=== PATIENT | female | born 1955 ===

== ENCOUNTER 2022-05-09 10:49 | Outpatient (CLI) | payer MEDICARE, BC, SELFPAY ==
--- OUTSIDE RECORDS SUMMARY | 2022-05-09 10:55 | XMS_ITS | Encounter Summary ---
:1955 Author Organization [employer] Address [address] [address] Phone Care Team Providers Name Role Phone Elsewhere, Pcp Primary Care Provider Unavailable Encounter Details Date Type Department Care Team Description 08/17/2021 Travel Social History Tobacco Use Types Packs/Day Years Used Date Smoking Tobacco: Never Smokeless Tobacco: Never Alcohol Use Standard Drinks/Week Comments Never 0 (1 standard drink = 0.6 oz pure alcoho l) Alcohol Habits Answer Date Recorded How often do you have a drink containing alcohol? Never 07/12/2021 How many drinks containing alcohol do you have on a typical Not asked day when you are drinking? How often do you have six or more drinks on one occasion? 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 documented as of this encounter Plan of Treatment Not on filedocumented as of this encounter Visit Diagnoses Not on filedocumented in this encounter Care Teams Milk Powder Grinder Relationship Specialty Start Date End Date Elsewhere, Pcp PCP - General 05/20/21 documented as of this encounter
--- OUTSIDE RECORDS SUMMARY | 2022-05-09 10:55 | XMS_ITS | Encounter Summary ---
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 documented as of this encounter Miscellaneous Notes Telephone Encounter - Pema Beltre RN - 08/25/2021 10:05 AM CST Patient made aware and letter sent CENTER OPERATOR Telephone Encounter - Pema Beltre RN - 08/25/2021 10:04 AM CST ----- Message from Anju Garcia APRN, CNP sent at 08/24/2021 6:19 PM DATA CENTER OPERATOR ----- Patient did not view [employer] message - can we please send patient letter or contact patient with results as below : It was nice to see you in clinic the other day. Your CMP (electrolytes, kidney and liver functioning) is normal. Your blood sugar was elevated that day - please continue plans as discussed in clinic for your diabetes. Your TSH is slightly elevated - however, was previously normal x2 weeks prior. I would like to recheck your thyroid labs in 1-2 months after consistently taking your thyroid medication.Please continue the plans we discussed in clinic. Please follow-up as discussed, sooner if any concerns. Thanks! CENTER OPERATOR documented in this encounter Plan of Treatment Not on filedocumented as of this encounter Visit Diagnoses Not on filedocumented in this encounter Care Teams Cheese Tester Relationship Specialty Start Date End Date Elsewhere, Pcp PCP - General 05/20/21 documented as of this encounter
--- OUTSIDE RECORDS SUMMARY | 2022-05-09 10:55 | XMS_ITS | Encounter Summary ---
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 documented as of this encounter Miscellaneous Notes Telephone Encounter - Joanne Tran RN - 09/30/2021 3:40 PM CDT Patient notified and verbalized understanding. Telephone Encounter - Cynthia Newby RN - 09/28/2021 9:40 AM CDT Pt states she had VILLAREAL and cirrhosis in the past. She is wondering since LFT are normal. Does she still have VILLAREAL and Cirrhosis? Please review MRI liver [facility] 09/10/2020 Telephone Encounter - Shane Farias MD - 09/24/2021 5:34 PM CST Sure that can be done but I cannot answer questions related to radiology, specifically what she is asking. RVISOR FINISH END Telephone Encounter - Sahra Aranda RN - 09/21/2021 10:19 AM CST Patients are not able to reach out to our rads to discuss cases directly. Do you want pt to obtain her outside images to have them sent to [facility] to review? RVISOR FINISH END Telephone Encounter - Shane Farias MD - 09/17/2021 12:40 PM CST LFTs are normal This is good.In terms of imaging, this will have to be discussed with the radiologist will need images from [place] as well to compare. Perhaps she can reach out to the radiologist with this. RVISOR FINISH END Telephone Encounter - Anju Sinclair RN - 08/11/2021 8:44 AM CST Reviewed results with pt. Pt is asking what the status is of her liver. In comparison to imaging at [place] and [facility] is her liver improving? And if so how. Pt did have 3-4 liver biopsies. Should she continue on the same diet or if she should change anything that she is doing? Pt has OV 09/13 RVISOR FINISH END Telephone Encounter - Anju Sinclair RN - 08/11/2021 8:44 AM CST ----- Message from Shane Farias MD sent at 08/11/2021 8:22 AM SUPERVISOR FINISH END ----- LFTs are normal.Glucose is elevated. Please follow-up with PCP RVISOR FINISH END documented in this encounter Plan of Treatment Not on filedocumented as of this encounter Visit Diagnoses Not on filedocumented in this encounter Care Teams Hog Killer Relationship Specialty Start Date End Date Elsewhere, Pcp PCP - General 05/20/21 documented as of this encounter
--- OUTSIDE RECORDS SUMMARY | 2022-05-09 10:55 | XMS_ITS | Encounter Summary ---
:1955 Author Organization [email or web address] Address [address] [address] Phone Care Team Providers Name Role Phone Elsewhere, Pcp Primary Care Provider Unavailable Reason for Visit Reason Comments Refill Request Encounter Details Date Type Department Care Team Description 03/29/2022 Refill [facility] Anju Garcia APRN, Refill Request CLINIC ENDOCRINOLOGY SECTION HAND [address] [facility] [address] [facility] [address] [place] [address] [place] [address] [phone] (Wo rk) Social History Tobacco Use Types Packs/Day Years [...] at Date Recorded Female 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 Date Occupation Industry Not on file Not on file Not on file documented as of this encounter Ordered Prescriptions Prescription Sig Dispensed Refills Start Date End Date rosuvastatin (Crestor) 10 TAKE 1 TABLET BY 30 Tablet 2 03/17 MG tablet MOUTH EVERY DAY documented in this encounter Plan of Treatment Not on filedocumented as of this encounter Visit Diagnoses Not on filedocumented in this encounter Discontinued Medications Medication Sig Discontinue Reason Start Date End Date rosuvastatin (Crestor) 10 TAKE 1 TABLET BY 12/20/2021 03/29/2022 MG tablet MOUTH EVERY DAY documented as of this encounter Care Teams Computer Network Support Specialist Relationship Specialty Start Date End Date Elsewhere, Pcp PCP - General 05/20/21 documented as of this encounter
--- OUTSIDE RECORDS SUMMARY | 2022-05-09 10:55 | XMS_ITS | Encounter Summary ---
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
--- OUTSIDE RECORDS SUMMARY | 2022-05-09 10:55 | XMS_ITS | Encounter Summary ---
:1955 Author Organization [employer] Address [address] [address] Phone Care Team Providers Name Role Phone Elsewhere, Pcp Primary Care Provider Unavailable Reason for Visit Reason Comments Lab Work Encounter Details Date Type Department Care Team Description 08/10/2021 [facility] Lab Work [facility] LABORATORY [address] [place] [address] [place], [place] [phone] Social History Tobacco Use Types Packs/Day Years [...] at Date Recorded Female 07/15/2021 1:16 PM 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 documented as of this encounter Miscellaneous Notes Result Encounter Note - Shane Farias MD - 08/10/2021 3:30 PM ENVIRONMENTAL SPECIALIST Bilirubin and LFTs were normal RONMENTAL SPECIALIST documented in this encounter Plan of Treatment Not on filedocumented as of this encounter Procedures Procedure Name Priority Date/Time Associated Diagnosis Comme nts COMPREHENSIVE Routine 08/10/2021 3:29 Hyperlipidemia, Results for this METABOLIC PANEL PM ENVIRONMENTAL SPECIALIST unspecified procedure ar e in hyperlipidemia t ype the results Elevated liver enzymes secti on. T4, FREE Routine 08/10/2021 3:29 Hypothyroidism, Results f or this PM ENVIRONMENTAL SPECIALIST unspecified type procedure a re in the results section. T3, TOTAL Routine 08/10/2021 3:29 Hypothyroidism, Results f or this PM ENVIRONMENTAL SPECIALIST unspecified type procedure a re in the results section. BILIRUBIN, DIRECT Routine 08/10/2021 3:29 Elevated liver enzym es Results for this PM ENVIRONMENTAL SPECIALIST procedure are i n the results section. THYROID STIMULATING Routine 08/10/2021 3:29 Hypothyroidism, Re sults for this HORMONE PM ENVIRONMENTAL SPECIALIST unspecified type procedure a re in the results section. documented in this encounter Results BILIRUBIN, DIRECT (08/10/2021 3:29 PM ENVIRONMENTAL SPECIALIST) athologist Signature Bilirubin, 0.12 <=0.20 08/10/2021 [facility] Direct mg/dL 4:00 PM ENVIRONMENTAL SPECIALIST [facility] Specimen Anatomical Collection Method / Collection Time Recei bobbi Time (Source) Location / Volume Laterality Blood BLOOD SPECIMEN / Venipuncture / 08/10/2021 3:29 2021 3:29 Unknown Unknown PM ENVIRONMENTAL SPECIALIST PM ENVIRONMENTAL SPECIALIST Shane Farias MD EC CHEMISTRY ORDERABLES Performing Organization Address City/State/ZIP Code Phon e Number [address] [address] LABORATORY (ABNORMAL) COMPREHENSIVE METABOLIC PANEL (08/10/2021 3:29 PM ENVIRONMENTAL SPECIALIST) [facility] Method Time Signature Sodium 140 136 - 145 08/10/2021 [facility] mmol/L 4:00 PM [facility] Potassium 3.7 3.5 - 5.1 08/10/2021 [facility] mmol/L 4:00 PM [facility] Chloride 106 98 - 107 08/10/2021 [facility] mmol/L 4:00 PM [facility] Carbon Dioxide 25 21 - 32 08/10/2021 [facility] mmol/L 4:00 PM [facility] Calcium 9.0 8.5 - 08/10/2021 [facility] 10.1 4:00 PM [facility] mg/dL [facility] Alkaline Phosphatase 64 46 - 116 08/10/2021 [facility] W U/L 4:00 PM [facility] Aspartate 32 15 - 37 08/10/2021 [facility] Aminotransferase U/L 4:00 PM [facility] Alanine 62 14 - 63 08/10/2021 [facility] Aminotransferase U/L 4:00 PM [facility] Glucose 215 (H) 74 - 100 08/10/2021 [facility] mg/dL 4:00 PM [facility] Blood Urea nitrogen 9 7 - 18 08/10/2021 [facility] mg/dL 4:00 PM [facility] Creatinine 0.58 0.51 - 08/10/2021 [facility] 0.95 4:00 PM [facility]/dL [facility] Protein, Total 7.4 6.4 - 8.2 08/10/2021 [facility] g/dL 4:00 PM [facility] Albumin 3.7 3.4 - 5.0 08/10/2021 [facility] g/dL 4:00 PM [facility] Bilirubin, Total 0.6 0.2 - 1.0 08/10/2021 [facility] mg/dL 4:00 PM [facility] Glomerular >60 >=60 08/10/2021 [facility] Filtration Rate mL/min/1. 4:00 PM [facility] 73 m*2 [facility] Globulin 3.7 1.4 - 4.8 08/10/2021 [facility] g/dL 4:00 PM [facility] Anion Gap 9.3 5 - 15 08/10/2021 [facility] mmol/L 4:00 PM [facility] Specimen Anatomical Collection Method / Collection Time Recei bobbi Time (Source) Location / Volume Laterality Blood BLOOD SPECIMEN / Venipuncture / 08/10/2021 3:29 2021 3:29 Unknown Unknown PM ENVIRONMENTAL SPECIALIST PM ENVIRONMENTAL SPECIALIST Anju Garcia GENERAL MANAGER IN TRAINING, PIPER INSTALLER EC CHEMISTRY ORDERABLES Performing Organization Address City/State/ZIP Code [facility] e Number [facility] [address] [place], [place] [address] LABORATORY T3, TOTAL (08/10/2021 3:29 PM ENVIRONMENTAL SPECIALIST) P athologist Signature T3, TOTAL 104 60 - 181 08/10/2021 [facility] ng/dL 4:16 PM ENVIRONMENTAL SPECIALIST [facility] Specimen Anatomical Collection Method / Collection Time Recei bobbi Time (Source) Location / Volume Laterality Blood BLOOD SPECIMEN / Venipuncture / 08/10/2021 3:29 2021 3:29 Unknown Unknown PM ENVIRONMENTAL SPECIALIST PM ENVIRONMENTAL SPECIALIST Anju Garcia APRN, CNP EC LAB SEND OUT ORDERABLES Performing Organization Address [facility]/[address] [address] LABORATORY T4, FREE (08/10/2021 3:29 PM ENVIRONMENTAL SPECIALIST) athologist Signature T4, Free 1.05 0.76 - 1.46 08/10/2021 [facility] ng/dL 4:00 PM [facility] Specimen Anatomical Collection Method / Collection Time Recei bobbi Time (Source) Location / Volume Laterality Blood BLOOD SPECIMEN / Venipuncture / 08/10/2021 3:29 2021 3:29 Unknown Unknown PM ENVIRONMENTAL SPECIALIST PM ENVIRONMENTAL SPECIALIST Anju Garcia APRN, CNP EC CHEMISTRY ORDERABLES ABN Performing Organization Address [facility]/[address] [address] LABORATORY (ABNORMAL) THYROID STIMULATING HORMONE (08/10/2021 3:29 PM ENVIRONMENTAL SPECIALIST) Patholo gist Method Time Signature Thyroid 4.483 (H) 0.350 - 08/10/2021 [facility] Stimulating 3.740 4:00 PM ENVIRONMENTAL SPECIALIST [facility] LABORATORY Specimen Anatomical Collection Method / Collection Time Recei bobbi Time (Source) Location / Volume Laterality Blood BLOOD SPECIMEN / Venipuncture / 08/10/2021 3:29 2021 3:29 Unknown Unknown PM ENVIRONMENTAL SPECIALIST PM ENVIRONMENTAL SPECIALIST Anju Garcia APRN, CNP EC CHEMISTRY ORDERABLES ABN Performing Organization Address City/State/ZIP Code Phon e Number [place] [id number] LABORATORY documented in this encounter Visit Diagnoses Diagnosis Elevated liver enzymes Nonspecific elevation of levels of trans aminase or lactic acid dehydrogenase (LDH) Hypothyroidism, unspecified type Hyperlipidemia, unspecified hyperlipidem ia type documented in this encounter Care Teams Maintainer Central Office Relationship Specialty Start Date End Date Elsewhere, Pcp PCP - General 05/20/21 documented as of this encounter
--- OUTSIDE RECORDS SUMMARY | 2022-05-09 10:55 | XMS_ITS | Encounter Summary ---
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 documented as of this encounter Plan of Treatment Not on filedocumented as of this encounter Visit Diagnoses Not on filedocumented in this encounter Care Teams Ripshear Operator Relationship Specialty Start Date End Date Elsewhere, Pcp PCP - General 05/20/21 documented as of this encounter
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
--- OUTSIDE RECORDS SUMMARY | 2022-05-09 10:55 | XMS_ITS | Encounter Summary ---
:1955 Author Organization [employer] Address [address] [address] Phone Care Team Providers Name Role Phone Elsewhere, Pcp Primary Care Provider Unavailable Reason for Visit Reason Comments Refill Request Encounter Details Date Type Department Care Team Description 01/27/2022 Refill [facility] Anju Garcia APRN, Refill Request CLINIC ENDOCRINOLOGY LOKIE DRIVER [address] [facility] [address] [facility] [address] [place] [address] [place] [address] [phone] (Wo rk) Social History Tobacco Use Types [...] at Date Recorded Female 07/15/2021 1:16 PM REDEYE GUNNER Job Start Date Occupation Industry Not on file Not on file Not on file documented as of this encounter Ordered Prescriptions Prescription Sig Dispensed Refills Start Date End Date Continuous Blood Gluc USE 1 SENSOR 2 Each 5 2 Sensor (FreeStyle Miriam 2 DIRECTED CHANGING Sensor) Misc EVERY 14 DAYS documented in this encounter Plan of Treatment Not on filedocumented as of this encounter Visit Diagnoses Not on filedocumented in this encounter Care Teams Gasoline Tractor Operator Relationship Specialty Start Date End Date Elsewhere, Pcp PCP - General 05/20/21 documented as of this encounter
--- OUTSIDE RECORDS SUMMARY | 2022-05-09 10:55 | XMS_ITS | Encounter Summary ---
:1955 Author Organization [email or web address] Address [address] [address] Phone Care Team Providers Name Role Phone Elsewhere, Pcp Primary Care Provider Unavailable Encounter Details Date Type Department Care Team Description 08/12/2021 Telephone [facility] Sahra Aranda RN CLINIC GASTROENTEROL [facility]G [address] [facility] [address] [place] [address] Social History Tobacco Use Types Packs/Day [...] at Date Recorded Female 07/15/2021 1:16 PM RESEARCH MICROBIOLOGIST Job Start Date Occupation Industry Not on file Not on file Not on file COVID-19 Exposure Response Date Recorded In the last month, have you been in contact with No / Unsure 08/10/2021 3:11 PM RESEARCH MICROBIOLOGIST someone who was confirmed or suspected to have Coronavirus / COVID-19? documented as of this encounter Miscellaneous Notes Telephone Encounter - Sahra Aranda RN - 08/12/2021 10:39 AM CST Sent pt a msg on My Chart ARCH MICROBIOLOGIST Telephone Encounter - Sahra Aranda RN - 08/12/2021 10:39 AM CST ----- Message from Shane Farias MD sent at 08/12/2021 10:28 AM RESEARCH MICROBIOLOGIST ----- Bilirubin and LFTs were normal ARCH MICROBIOLOGIST documented in this encounter Plan of Treatment Not on filedocumented as of this encounter Visit Diagnoses Not on filedocumented in this encounter Care Teams Cement Paver Relationship Specialty Start Date End Date Elsewhere, Pcp PCP - General 05/20/21 documented as of this encounter
--- OUTSIDE RECORDS SUMMARY | 2022-05-09 10:55 | XMS_ITS | Encounter Summary ---
:1955 Author Organization [employer] Address [address] [address] Phone Care Team Providers Name Role Phone Elsewhere, Pcp Primary Care Provider Unavailable Reason for Visit Reason Comments Refill Request Encounter Details Date Type Department Care Team Description 12/20/2021 Refill [facility] Anju Garcia APRN, Refill Request CLINIC ENDOCRINOLOGY PHYSICAL GEOGRAPHER [address] [facility] [address] [facility] [address] [place] [address] [place] [address] [phone] (Wo rk) Social History Tobacco Use Types [...] at Date Recorded Female 07/15/2021 1:16 PM HAND UPPER AND BOTTOM LACER Job Start Date Occupation Industry Not on file Not on file Not on file documented as of this encounter Ordered Prescriptions Prescription Sig Dispensed Refills Start Date End Date rosuvastatin (Crestor) 10 TAKE 1 TABLET BY 30 Tablet 2 12/202103/29/2022 MG tablet MOUTH EVERY DAY documented in this encounter Plan of Treatment Not on filedocumented as of this encounter Visit Diagnoses Not on filedocumented in this encounter Discontinued Medications Medication Sig Discontinue Reason Start Date End Date rosuvastatin (Crestor) 10 Take 1 Tablet by 07/29/2021 12/20/2021 MG tablet mouth one time a day. documented as of this encounter Care Teams Inner Diameter Grinder Tool Relationship Specialty Start Date End Date Elsewhere, Pcp PCP - General 05/20/21 documented as of this encounter
--- OUTSIDE RECORDS SUMMARY | 2022-05-09 10:55 | XMS_ITS | Encounter Summary ---
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 documented as of this encounter Medications at Time of Discharge Medication Sig Dispensed Refills Start Date End Date albuterol HFA (Proair HFA, Inhale 2 Puffs into 0 01/14/2020 Ventolin HFA) 108 (90 the lungs every six Base) MCG/ACT inhalation hours as needed. aerosol cetirizine (ZyrTEC) 10 MG Take 10 mg by mouth. 0 04/15/2014 tablet vitamin D3, Take 1,000 Units by 0 cholecalciferol, 25 mcg mouth one time a day. (1000 units) tablet diclofenac (Voltaren) 1 % Place 4 g onto the 0 Gel skin four times a day as needed. EPINEPHrine, Inject 0.3 mg into 0 auto-injector, 0.3 the muscle. MG/0.3ML Solution Auto-injector injection ipratropium-albuterol Inhale 3 mL into the 0 07/18 (DUO-NEB) 0.5-2.5 (3) lungs as needed. MG/3ML Solution lancets, Accu-Chek 0 04/26/2013 Multiclix, (Accu-Chek Multiclix) Potassium Gluconate 2.5 Take by mouth. 0 04/15/20 14 MEQ Tablet Continuous Blood Gluc FreeStyle Miriam 2 0 Sensor (FreeStyle Miriam 2 Sensor kit Sensor) Misc busPIRone (Buspar) 10 MG Take 10 mg by mouth 0 tablet one time a day. Continuous Blood Gluc 1 Each by Does not 2 Each 5 2020 Sensor (FreeStyle Miriam 2 apply route every 14 Sensor) MiscIndications: days. 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 levothyroxine (Synthroid) Take 1 Tablet by 0 04/17 100 MCG tablet mouth one time a day. predniSONE (Deltasone) 20 Once daily as needed 0 03/26/2021 MG tablet documented as of this encounter Discharge Disposition Disposition Code Departure Means Destination Discharged documented in this encounter Plan of Treatment Not on filedocumented as of this encounter Procedures Procedure Name Priority Date/Time Associated Diagnosis Comme nts US SOFT TISSUE NECK Routine 08/12/2021 12:33 PM Hypothyroidism , Results for this THYROID HEAD WELDER SETTER RESISTANCE MACHINE unspecified type procedure a re in the results section. documented in this encounter Results US SOFT TISSUE NECK THYROID HEAD (08/12/2021 12:33 PM WELDER SETTER RESISTANCE MACHINE) Anatomical Region Laterality Modality Neck Ultrasound Specimen (Source) Anatomical Collection Method Collection Time Re ceived Time Location / / Volume Laterality 08/12/2021 12:14 PM WELDER SETTER RESISTANCE MACHINE Narrative 08/12/2021 12:43 PM WELDER SETTER RESISTANCE MACHINE US, THYROID COMPARISON: None. FINDINGS: The thyroid is normal in size, contour and position. The right lobe measures 2.4 x 0.9 x 1.3 cm. The left lo be measures 2.7 x 1.1 x 1.2 cm. The isthmus measures 3 mm. No discrete thyroid nodule or mass. There are few scattered benign-appearing cervical lymph nodes noted. IMPRESSION: Unremarkable sonographic mario luation of the thyroid. No nodular mass. Electronically signed by Glen Mims MD Report Date: 08/12/2021 12:14 PM Procedure Note Glen Mims MD - 08/12/2021Forma tting of this note might be different from the original. US, THYROID COMPARISON: None. FINDINGS: The thyroid is normal in size, contour and position. The right lobe measures 2.4 x 0.9 x 1.3 cm. The left lo be measures 2.7 x 1.1 x 1.2 cm. The isthmus measures 3 mm. No discrete thyroid nodule or mass. There are few scattered benign-appearing cervical lymph nodes noted. IMPRESSION: Unremarkable sonographic mario luation of the thyroid. No nodular mass. Electronically signed by Glen Mims MD Report Date: 08/12/2021 12:14 PM Anju Garcia DYE MAKER, FARM LOAN REPRESENTATIVE EC US ORDERABLES documented in this encounter Visit Diagnoses Diagnosis Hypothyroidism, unspecified type documented in this encounter Care Teams Repair Table Operator Relationship Specialty Start Date End Date Elsewhere, Pcp PCP - General 05/20/21 documented as of this encounter
--- OUTSIDE RECORDS SUMMARY | 2022-05-09 10:55 | XMS_ITS | Clinical Summary ---
:1955 Author Organization [employer] Address [address] [address] Phone Care Team Providers Name Role Phone Elsewhere, Pcp Primary Care Provider Unavailable Allergies Active Allergy Reactions Severity Noted Date Comments Ciprofloxacin Other Low 05/20/2021 Trouble breath ing Codeine Other Low 05/20/2021 Trouble breathi ng Propoxyphene N-Apap Other Low 05/20/2021 Trouble breathing Pioglitazone Other Low 01/07/2019 [place] sick [place] sick Hydrocodone-Acetaminophen Other Low 05/20/2021 Br eathing trouble Medications Medication Sig Dispensed Refills Start Date End Date Status levocetirizine (Xyzal) Take 1 Tablet by 0 01/27/2021 Active 5 MG tablet mouth one time a day as needed. levothyroxine Take 1 Tablet by 0 05/10/2021 Active (Synthroid) 100 MCG mouth one time a tablet day. predniSONE (Deltasone) Once daily as 0 03/26/2021 Active 20 MG tablet needed Continuous Blood Gluc 1 Each by Does 2 Each 5 06/18/2021 Active Sensor (FreeStyle not apply route Miriam 2 Sensor) every 14 days. 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 albuterol HFA (Proair Inhale 2 Puffs 0 01/14/2020 Active HFA, Ventolin HFA) 108 into the lungs (90 Base) MCG/ACT every six hours inhalation aerosol as needed. cetirizine (ZyrTEC) 10 Take 10 mg by 0 04/15/2014 Active MG tablet mouth. vitamin D3, Take 1,000 Units 0 A ctive cholecalciferol, 25 by mouth one time mcg (1000 units) a day. tablet diclofenac (Voltaren) Place 4 g onto 0 05/07/2019 Active 1 % Gel the skin four times a day as needed. EPINEPHrine, Inject 0.3 mg 0 Act jeromy auto-injector, 0.3 into the muscle. MG/0.3ML Solution Auto-injector injection ipratropium-albuterol Inhale 3 mL into 0 08/09/2018 Active (DUO-NEB) 0.5-2.5 (3) the lungs as MG/3ML Solution needed. lancets, Accu-Chek 0 04/26/2013 Active Multiclix, (Accu-Chek Multiclix) Potassium Gluconate Take by mouth. 0 04/15/2014 Active 2.5 MEQ Tablet Continuous Blood Gluc FreeStyle Miriam 2 0 Active Sensor (FreeStyle Sensor kit Miriam 2 Sensor) Misc glipiZIDE ER TAKE 2 TABS ONCE 0 08/13/2021 Active (Glucotrol XL) 10 MG DAILY IN THE 24 hour tablet MORNING WITH BREAKFAST. APPT NEEDED FOR FUTURE REFILLS. indomethacin (Indocin) Take 1 capsule PO 20 Capsule 1 08/17/19 Active 25 MG 30-60 minutes capsuleIndications: prior to Benign exertional exercise. Take headache with food or milk to lessen stomach irriation. dapagliflozin Take 1 Tablet by 90 Tablet 3 08/25/2021 Active (Farxiga) 10 MG mouth one time a TabletIndications: day. 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 The headaches started out as bifrontal, however can now be more right frontal, right retro-orbital and right parietal in location. The headaches are almost always associated with physical exertion, however she may occasionally experience a headache without known trigger. The head aches can exceed a 10/10 and are typical ly a buildup of pain within 30 seconds to 1 minute into physical exercise. The headaches completely resolve if she stops physical activity and lies down. She does note some sense of dizziness with the se headaches. She has not taken any medications for these headaches as they are typically brief and only provoked by exercise. She denies any headache associated with coughing or straining. She is not s exually active. She denies any family history of headaches, however does have a family history of brain tumors in both a niece and an aunt. Brain imaging includin g MRI/MRA and MRV on 07/29/2021 was negat jeromy for arteriovenous malformations, aneurysm, thrombosis or other space-occupying lesions. I explained to the patient that her symp toms are most consistent with benign exertional headache. We discussed trial of low-dose indomethacin prior to exercise and she agreed to proceed. If partially be neficial, could consider slight increase in indomethacin as needed, however would prefer to ensure clearance from GI prior to proceeding with higher doses. If indomethacin is not helpful/tolerated, coul d trial treatment for potential right-si ded trigeminal neuralgia (as the V1 distribution of the trigeminal nerve includes the anterior two thirds of the parietal scalp). Although seemingly less likely, could consider referral back to primary care provider for consideration of cardiac stress test due to history of cardiovascular risk factors and potential effect of coronary artery disease with exertion al headache (although she denies any ass ociated chest pain, palpitations or shortness of breath). Would prefer to avoid propranolol given concomitant asthma and diabetes, however she does have a continuous glucose monitor. Last Assessment & Plan: Patient began experiencing bifrontal and right-sided headaches since she recently started exercising again in July 2021. The headaches started out as bifrontal, however can now be more right frontal, right retro-orbital and right parietal in location. The headaches are almost always associated with physical exertion, however she may occasionally experience a headache without known trigger. The head aches can exceed a 10/10 and are typical ly a buildup of pain within 30 seconds to 1 minute into physical exercise. The headaches completely resolve if she stops physical activity and lies down. She does note some sense of dizziness with the se headaches. She has not taken any medications for these headaches as they are typically brief and only provoked by exercise. She denies any headache associated with coughing or straining. She is not s exually active. She denies any family history of headaches, however does have a family history of brain tumors in both a niece and an aunt. Brain imaging includin g MRI/MRA and MRV on 07/29/2021 was negat jeromy for arteriovenous malformations, aneurysm, thrombosis or other space-occupying lesions. I explained to the patient that her symp toms are most consistent with benign exertional headache. We discussed trial of low-dose indomethacin prior to exercise and she agreed to proceed. If partially be neficial, could consider slight increase in indomethacin as needed, however would prefer to ensure clearance from GI prior to proceeding with higher doses. If indomethacin is not helpful/tolerated, coul d trial treatment for potential right-si ded trigeminal neuralgia (as the V1 distribution of the trigeminal nerve includes the anterior two thirds of the parietal scalp). Although seemingly less likely, could consider referral back to primary care provider for consideration of cardiac stress test due to history of cardiovascular risk factors and potential effect of coronary artery disease with exertion al headache (although she denies any ass ociated chest pain, palpitations or shortness of breath). Would prefer to avoid propranolol given concomitant asthma and diabetes, however she does have a continuous glucose monitor. -You have been prescribed low-dose indom ethacin to take as needed, 30-60 minutes prior to exercise. -Contact my office via [facility] after 2-4 weeks with results of trialing this medication. We will consider further adjustment at that time if needed. -Maintain routine meals, hydration and s leep patterns. -Report any worsening headaches. Gastroparesis 07/12/2021 Last Assessment & Plan: Formatting of th is note might be different from the original. Gastroparesis based on gastric emptying study previously. At this time patient Peers to be doing well without any complaints. Gastroparesis diet. Elevated liver enzymes 05/27/2021 Last Assessment & Plan: Formatting of is note might be different from the original. As per GI : Endocrinology requesting dir ection regarding Metformin and statin, okay to proceed with both, monitor LFTs in 4 weeks after starting statin. *We will check liver function tests 1 mo nth after starting Rosuvastatin 10 mg daily Follow-up with GI Hyperlipemia 05/27/2021 Last Assessment & Plan: Formatting of th is note is different from the original. Lab Results Component Value Date CHOL 250 05/20/2021 Lab Results Component Value Date TRIG 159 05/20/2021 Lab Results Component Value Date HDL 49 05/20/2021 Lab Results Component Value Date LDLC 169 05/20/2021 Our goal LDL is less than 100 mg/dL. Please START Rosuvastatin 10 mg Statins are a class of drugs that lower the level of cholesterol in the blood by reducing the production of cholesterol by the liver. By lowering cholesterol levels, statins help prevent heart attacks and stroke. Side effects include: abdominal upset, m uscle pain or weakness. Please contact us if you have any concerns or side effects. 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 Blood Sugar Goals : Fasting morning blood sugars : 80-120 mg /dL 1-2 hours after meals : less than 180 mg /dL Lab Results Component Value Date HGA1C 10.7 05/20/2021 A1C test gives a picture of the average glucose control in the past three months. We will continue to work together to control blood sugars and maintain an A1c of less than 8% to prevent diabetes complications. Today, we will : Start Farxiga 10 mg once daily You do not have any contraindications to this medication (significant renal impairment, history of DKA) You have a distant history of yeast infe ctions - this medication can increase risk of yeast infection. If you develop symptoms, please contact us. This medication increases glucose excret ion in your urine. Side effects include : frequent urinatio n, dry mouth, dizziness, lightheadedness, low blood pressure and yeast infections. Please stop this medication and contact us if you have any side effects or concerns. We will plan to check your electrolytes (labs - CMP) in 3-4 weeks after starting this medication. If this is not covered or she has side e ffects, we will start : - Glipzide 5 mg, 1/2 tablet, twice daily with meals. - Metformin 500 mg ER (okay'd per GI) High Blood Sugars : 1.) Check sugars very frequently - every 2-3 hours. 2.) Continue to take diabetes medication s as directed 3.) Increase sugar free fluids / water 4.) Check urine or blood ketones 5.) Go to ER for treatment of DKA if sym ptoms develop such as : Fatigue Dry or flushed skin Nausea, vomiting, or abdominal pain Difficulty breathing Fruity odor on breath A hard time paying attention, or confusi on Low Blood Sugars : If you experience low blood sugars (less than 60 mg/dl, OR symptoms including shaking/sweating/irritability), please : 1.) Eat 15-20 grams carbohydrates. 2.) If blood sugar is still low after 15 minutes, eat another 15-20 grams carbs. 3.) Once blood sugar returns to normal, consume a meal or snack to prevent another low blood sugar. 4.) Please contact us if you have low bl ood sugars and we can discuss medication changes to prevent low blood sugars Please follow-up in 1 month and or soone r if any concerns. Hypothyroidism, unspecified type 05/20/2021 Last Assessment & Plan: Formatting of th is note is different from the original. Thyroid Stimulating hormone Date Value Ref Range Status 05/20/2021 5.403 (H) 0.350 - 3.740 UIU/m L Final T4, Free Date Value Ref Range Status 05/20/2021 0.94 0.76 - 1.46 ng/dL Final T3, TOTAL Date Value Ref Range Status 05/20/2021 136 60 - 181 ng/dL Final Please Continue your same dose of Levoth yroxine 100 mcg daily Please take this medicine on an empty st omach, 30 minutes before eating without any other medications. Please try to take the medicine at the same time each day. It may take several weeks before your body starts to respond to this medication. We will plan to recheck your thyroid lab s today We will continue to monitor your thyroid labs and make changes to your thyroid medication dose as needed to optimize your treatment. YESSI (obstructive sleep apnea) 01/21/2020 Overview: Formatting of this note might be differe nt from the original. Wears CPAP irregularly Narcolepsy 01/21/2020 Overview: Formatting of this note might be differe nt from the original. Per pt. No records available. Type 2 diabetes mellitus without retinopathy 0 Bilateral incipient cataracts 09/18/2019 Depression 08/17/2018 Overview: Formatting of this note might be differe nt from the original. On social security/disability NAFLD (nonalcoholic fatty liver disease) 07/04/2016 Asthma 04/06/2012 Encounters Date Type Specialty Care Team Description 03/29/2022 Refill Endocrinology Anju Garcia, ENGAGEMENT MGR, TRUCK CRANE OPERATOR HELPER R efill Request from Last 3 Months Surgical History Surgery Date Site/Laterality Comments BLEPHAROPLASTY Medical History Medical History Date Comments Liver disease Diabetes (HCC) Urticaria Lung disease Hypothyroid Carmen's disease PCOS (polycystic ovarian syndrome) Family History Medical History Relation Comments Diabetes Father Cancer Mother Diabetes Mother Cancer Sister Relation Status Comments Father Mother Sister Social History Tobacco Use Types Packs/Day Years [...] at Date Recorded Female 07/15/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 Start Date Occupation Industry Not on file Not on file Not on file Obstetrics History Last Filed Vital Signs Vital Sign Reading Time Taken Comments Blood Pressure 123/75 08/17/2021 1:13 PM BANKING MANAGEMENT CONSULTING MANAGER Pulse 74 08/17/2021 1:13 PM BANKING MANAGEMENT CONSULTING MANAGER Temperature - - Respiratory Rate 16 08/17/2021 1:13 PM BANKING MANAGEMENT CONSULTING MANAGER Oxygen Saturation 96% 08/17/2021 1:13 PM BANKING MANAGEMENT CONSULTING MANAGER Inhaled Oxygen Concentration - - Weight 88.2 kg (194 lb 8 oz) 08/17/2021 1:13 PM BANKING MANAGEMENT CONSULTING MANAGER Height 160 cm (5' 3) 07/29/2021 3:12 PM BANKING MANAGEMENT CONSULTING MANAGER Body Mass Index 34.45 07/29/2021 3:12 PM BANKING MANAGEMENT CONSULTING MANAGER Plan of Treatment Health Maintenance Due Date Last Done Comments CT Colonography 1955 Cologuard 1955 Colonoscopy 1955 Colorectal Cancer Screening 1955 FIT/FOBT 1955 MAMMO,SCREEN 1955 MEDICARE AWV 1955 Sigmoidoscopy 1955 COVID-19 Vaccine (#1) 1955 DIABETIC EYE EXAM 1973 PERTUSSIS (Standing Order) 1974 TETANUS (Standing Order) 1974 Shingrix (Zoster recombinant) 2005 vaccine (Standing Order) (1 of 2) DXA,FEMALES AGE 65 OR GREATER 01/19/2020 Pneumococcal Vaccine: 65+ yrs 01/19/2020 (Standing Order) (1 - PCV) DIABETES HGB A1C Q6 MONTHS 11/17/2021 05/20/2021, 0, (Standing Order) 05/03/2019, Additional history exists Influenza Vaccine Seasonal 03/17/2022 (Standing Order) (#1) DIABETES MICROALBUMIN Q1 YEAR 04/20/2022 05/20/2021 (Standing Order) DIABETES SERUM CREATININE Q1 YEAR 08/10/2022 08/10/2021, , (Standing Order) 05/20/2021, Additional history exists DIABETES LIPID PROFILE Q5 YEARS 05/20/2026 05/20/2021, 12/2019, (Standing Order) 08/16/2018 Insurance Payer Benefit Plan Subscriber ID Effective Phone Address Typ e / Group Dates MEDICARE MEDICARE [id number] 2013-Pre [phone] NATIONAL Medi care COST PART sent [id number] [facility] [employer] [facility] [employer] ATTN CLAIMS [address] [place] [address] BLUE CROSS BCBS [id number] 07/17/2020-Pres [phone] [address] [address] BCBS BLUE SHIELD NEZ PERCE [address] [place], [place] [employer] MEDICARE BLUE [id number] Care Teams Range Conservationist Relationship Specialty Start Date End Date Elsewhere, Pcp PCP - General 05/20/21
--- OUTSIDE RECORDS SUMMARY | 2022-05-09 10:55 | XMS_ITS | Encounter Summary ---
:1955 Author Organization [employer] Address [address] [address] Phone Care Team Providers Name Role Phone Elsewhere, Pcp Primary Care Provider Unavailable Reason for Visit Reason Onset Date Comments Refill Request 08/25/2021 Encounter Details Date Type Department Care Team Description 08/25/[address] 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 documented as of this encounter Ordered Prescriptions Prescription Sig Dispensed Refills Start Date End Date dapagliflozin (Farxiga) 10 Take 1 Tablet by 90 Tablet 3 03/2022 MG TabletIndications: mouth one time a Diabetes type 2, no ocular day. involvement (HCC) documented in this encounter Plan of Treatment Not on filedocumented as of this encounter Visit Diagnoses Diagnosis Diabetes type 2, no ocular involvement ( HCC) documented in this encounter Discontinued Medications Medication Sig Discontinue Reason Start Date End Date dapagliflozin (Farxiga) 10 Take 1 Tablet by Reorder 07/29/2021 08/25/2021 MG TabletIndications: mouth one time a Diabetes type 2, no ocular day. involvement (HCC) documented as of this encounter Care Teams Half Sole Fitter Relationship Specialty Start Date End Date Elsewhere, Pcp PCP - General 05/20/21 documented as of this encounter
--- OUTSIDE RECORDS SUMMARY | 2022-05-09 10:55 | XMS_ITS | Encounter Summary ---
:1955 Author Organization [employer] Address [address] [address] Phone Care Team Providers Name Role Phone Elsewhere, Pcp Primary Care Provider Unavailable Reason for Visit Auth/Cert Specialty Diagnoses / Procedures Referred By Contact Refer red To Contact Diagnoses double, colon screening-egd elevated liver enzymes- diabetic [facility] Procedures COLONOSCOPY SCREENING ESOPHAGOGASTRODUODENOSCOPY [address] [facility] [address] [place] [address] Referral ID Status Reason Start Date Expiration Date Visits Requ ested Visits Authorized [id number] 1 1 Encounter Details Date Type Department Care Team Description 09/01/2021 Hospital Encounter [facility] Shane Gee, HOSPITAL ENDOSCOPY [address] [facility] [address] [facility] [address] [place] [address] [place] [address] [phone] (Wo rk) Social History Tobacco Use Types [...] at Date Recorded Female 07/15/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 documented as of this encounter Plan of Treatment Not on filedocumented as of this encounter Visit Diagnoses Not on filedocumented in this encounter Care Teams Sole Edge Inker Machine Relationship Specialty Start Date End Date Elsewhere, Pcp PCP - General 05/20/21 documented as of this encounter
--- OUTSIDE RECORDS SUMMARY | 2022-05-09 10:55 | XMS_ITS | Encounter Summary ---
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 documented as of this encounter Plan of Treatment Not on filedocumented as of this encounter Visit Diagnoses Not on filedocumented in this encounter Care Teams Svp Digital Sales Relationship Specialty Start Date End Date Elsewhere, Pcp PCP - General 05/20/21 documented as of this encounter
--- OUTSIDE RECORDS SUMMARY | 2022-05-09 10:56 | XMS_ITS | Encounter Summary ---
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 documented as of this encounter Plan of Treatment Not on filedocumented as of this encounter Visit Diagnoses Not on filedocumented in this encounter Care Teams Restaurant Assistant Relationship Specialty Start Date End Date Elsewhere, Pcp PCP - General 05/20/21 documented as of this encounter
--- OUTSIDE RECORDS SUMMARY | 2022-05-09 10:56 | XMS_ITS | Encounter Summary ---
:1955 Author Organization [employer] Address [address] [address] Phone Care Team Providers Name Role Phone Elsewhere, Pcp Primary Care Provider Unavailable Reason for Visit Reason Onset Date Comments Endo Prep Call 07/27/2021 Encounter Details Date Type Department Care Team Description 07/27/2021 Telephone [facility] Levar Florence, RN Endo Prep Call ENDOSCOPY [address] 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 documented as of this encounter Miscellaneous Notes Telephone Encounter - Levar Florence, RN - 07/30/2021 9:19 AM CST 07/27/21: TC from pt with questions re: her prep for her E/C procedure which is scheduled for tomorrow 07/28/21. Pt states she did not receive any written or emailed instructions. Interlibrary Loan Specialist went over detailed prep instructions verbally over the phone with pt. Interlibrary Loan Specialist instructed pt that she would be transferred via TC to GI clinic to have them email pt instructions. Pt verbalized understanding and transfer was made. M SHOVEL OPERATOR documented in this encounter Plan of Treatment Not on filedocumented as of this encounter Visit Diagnoses Not on filedocumented in this encounter Care Teams It Specialist Relationship Specialty Start Date End Date Elsewhere, Pcp PCP - General 05/20/21 documented as of this encounter
--- OUTSIDE RECORDS SUMMARY | 2022-05-09 10:56 | XMS_ITS | Encounter Summary ---
:1955 Author Organization [employer] Address [address] [address] Phone Care Team Providers Name Role Phone Elsewhere, Pcp Primary Care Provider Unavailable Encounter Details Date Type Department Care Team Description 07/16/2021 [facility] RADIOLOGY A, enzymes ULTRASOUND [address] 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 documented as of this encounter Medications at Time of Discharge Medication Sig Dispensed Refills Start Date End Date albuterol HFA (Proair HFA, Inhale 2 Puffs into 0 01/14/2020 Ventolin HFA) 108 (90 Base) the lungs every six MCG/ACT inhalation aerosol hours as needed. cetirizine (ZyrTEC) 10 MG Take 10 mg by 0 014 tablet mouth. diclofenac (Voltaren) 1 % Place 4 g onto the 0 Gel skin four times a day as needed. ipratropium-albuterol Inhale 3 mL into 0 08/09/19 19 (DUO-NEB) 0.5-2.5 (3) MG/3ML the lungs as Solution needed. lancets, Accu-Chek 0 04/26/2013 Multiclix, (Accu-Chek Multiclix) Potassium Gluconate 2.5 MEQ Take by mouth. 0 03/19 Tablet busPIRone (Buspar) 10 MG Take 10 mg by mouth 0 tablet one time a day. 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 levothyroxine (Synthroid) Take 1 Tablet by 0 04/17 100 MCG tablet mouth one time a day. predniSONE (Deltasone) 20 MG Once daily as 0 03/17 tablet needed documented as of this encounter Discharge Disposition Disposition Code Departure Means Destination Discharged documented in this encounter Miscellaneous Notes Result Encounter Note - Shane Farias MD - 07/16/2021 10:00 AM COMPUTER ANALYST Sonogram shows fat in the liver. No suspicious intrahepatic mass or bile duct dilation. Normal gallbladder UTER ANALYST documented in this encounter Plan of Treatment Not on filedocumented as of this encounter Procedures Procedure Name Priority Date/Time Associated Diagnosis Comme nts US ABDOMEN COMPLETE Routine 07/16/2021 10:55 AM Elevated liver Results for this COMPUTER ANALYST enzymes procedure are i n the results section. documented in this encounter Results US ABDOMEN COMPLETE (07/16/2021 10:55 AM COMPUTER ANALYST) Anatomical Region Laterality Modality Abdomen Ultrasound Specimen (Source) Anatomical Collection Method Collection Time Re ceived Time Location / / Volume Laterality 07/16/2021 10:32 AM COMPUTER ANALYST Narrative 07/17/2021 8:25 AM COMPUTER ANALYST US, ABDOMEN COMPLETE HISTORY: ??Abnormal levels of other seru m enzymes COMPARISON: ??None. FINDINGS: The liver is normal size measu ring approximately 13.8 cm craniocaudad. Diffuse heterogeneous and increased echo texture of the liver. No suspicious intrahepatic mass or biliary ductal dila tation. The common bile duct is normal measuring 4 mm in diameter. The gallbladder is sonographically fely l without internal echos to suggest stones or sludge. No pericholecystic flu id. Gallbladder wall thickness is normal measuring 3 mm. Negative sonographic Mur phy's. The spleen is sonographically normal yanira suring 10.7 cm long axis. No perisplenic fluid collection. The kidneys are normal. The right kidney measures 10.6 cm long axis. The left kidney measures 11.6 cm long axis. No ev idence of renal calculus or hydronephrosis. The visualized portions of the pancreas, IVC and aorta are unremarkable. IMPRESSION: 1. Heterogeneous and increased echotextu re of the liver, suggestive of fatty infiltration. No suspicious intrahepatic mass or biliary ductal dilatation. 2. No evidence of cholelithiasis or acut e cholecystitis. Electronically signed by Glen Mims MD Report Date: 07/16/2021 10:32 AM Procedure Note Glen Mims MD - 07/17/2021Forma tting of this note might be different from the original. US, ABDOMEN COMPLETE HISTORY: Abnormal levels of other serum enzymes COMPARISON: None. FINDINGS: The liver is normal size measu ring approximately 13.8 cm craniocaudad. Diffuse heterogeneous and increased echo texture of the liver. No suspicious intrahepatic mass or biliary ductal dila tation. The common bile duct is normal measuring 4 mm in diameter. The gallbladder is sonographically fely l without internal echos to suggest stones or sludge. No pericholecystic flu id. Gallbladder wall thickness is normal measuring 3 mm. Negative sonographic Mur phy's. The spleen is sonographically normal yanira suring 10.7 cm long axis. No perisplenic fluid collection. The kidneys are normal. The right kidney measures 10.6 cm long axis. The left kidney measures 11.6 cm long axis. No ev idence of renal calculus or hydronephrosis. The visualized portions of the pancreas, IVC and aorta are unremarkable. IMPRESSION: 1. Heterogeneous and increased echotextu re of the liver, suggestive of fatty infiltration. No suspicious intrahepatic mass or biliary ductal dilatation. 2. No evidence of cholelithiasis or acut e cholecystitis. Electronically signed by Glen Mims MD Report Date: 07/16/2021 10:32 AM Shane Farias MD US ORDERABLES documented in this encounter Visit Diagnoses Diagnosis Elevated liver enzymes Nonspecific elevation of levels of trans aminase or lactic acid dehydrogenase (LDH) documented in this encounter Care Teams Manager Architecture Relationship Specialty Start Date End Date Elsewhere, Pcp PCP - General 05/20/21 documented as of this encounter
--- OUTSIDE RECORDS SUMMARY | 2022-05-09 10:56 | XMS_ITS | Clinical Summary ---
:1955 Author Organization [facility] Address [address] [facility] [place] [address] Care Team Providers Name Role Phone Krystin Christie APRN MANAGER NURSING HOME Primary Care Provider [phone] Sonja Tinajero [facility] Unavailable [phone] Sea Tsai DO Unavailable [phone] Sea Tsai DO Unavailable [phone] Stephanie Canela MD Unavailable [phone] Krystin Christie APRN MANAGER NURSING HOME Unavailable [phone] Dima Hidalgo MD Unavailable Dima Hidalgo MD Unavailable Allergies Active Allergy Reactions Severity Noted Date Comments Quinolones Itching, Difficulty High 11/10/2010 breathing Ciprofloxacin Itching, Shortness Of High 11/26/2006 Breath Codeine Shortness Of Breath High 04/10/2014 Other re action(s): Syncope Codeine Sulfate Other (See Comments) High 11/10/2010 Tyron ked out Propoxyphene N-Apap Itching Medium 11/10/2010 Pioglitazone 01/07/2019 [facility] sick Hydrocodone-Acetaminophen Itching, Difficulty High 11/11/19 11 breathing Medications Medication Sig Dispensed Refills Start Date End Date Status EPINEPHrine (EPIPEN) Inject 0.3 mg into 0 Active 0.3 MG/0.3ML the muscle once as injection needed. Vitamin D, Take 1,000 Units by 0 Active Cholecalciferol, mouth daily 1000 units TABS order for Equipment being 1 each 0 01/14/2019 Act jeromy DMEIndications: Type ordered: orthopedic 2 diabetes mellitus Diabetic shoes with complication, without long-term current use of insulin (H) diclofenac Place 4 g onto the 100 g 1 05/07/2019 Active (VOLTAREN) 1 % skin 4 times daily topical as needed for gelIndications: moderate pain Arthralgia, unspecified joint ipratropium - Take 1 vial (3 mLs) 1 Box 0 10/01/2019 Active albuterol 0.5 mg/2.5 by nebulization mg/3 mL (DUONEB) every 6 hours as 0.5-2.5 (3) MG/3ML needed for neb shortness of breath solutionIndications: / dyspnea or Mild persistent wheezing asthma with acute exacerbation cetirizine (ZYRTEC) Take 1 tablet (10 90 tablet 3 10/01/2019 Active 10 MG mg) by mouth daily tabletIndications: as needed For hives Uncomplicated asthma, unspecified asthma severity, unspecified whether persistent, Hives albuterol (PROAIR Inhale 2 puffs into 1 Inhaler 3 01/14/2020 Active HFA/PROVENTIL the lungs every 6 HFA/VENTOLIN HFA) hours as needed for 108 (90 Base) shortness of breath MCG/ACT / dyspnea or inhalerIndications: wheezing Mild persistent asthma with acute exacerbation montelukast Take 1 tablet (10 90 tablet 3 01/21/2020 Active (SINGULAIR) 10 MG mg) by mouth At tabletIndications: Bedtime Mild persistent asthma with acute exacerbation glipiZIDE (GLUCOTROL Take 1 tablet (5 90 tablet 0 07/08/2020 Active XL) 5 MG 24 hr mg) by mouth daily tabletIndications: Needs labs for Type 2 diabetes refills mellitus with complication, without long-term current use of insulin (H) metFORMIN Take 3 tablets 270 tablet 0 07/08/2020 Act jeromy (GLUCOPHAGE-XR) 500 (1,500 mg) by mouth MG 24 hr daily (with dinner) tabletIndications: Needs labs for Type 2 diabetes refills mellitus with complication, without long-term current use of insulin (H) Additional Information Patient not taking. Reported on 04/28/2022 levothyroxine Take 1 tablet (50 90 tablet 0 07/08/2020 Active (SYNTHROID/LEVOTHROID) 50 mcg) by mouth MCG tabletIndications: daily Needs labs Subclinical hypothyroidism for refills busPIRone (BUSPAR) 10 MG Take 1 tablet (10 180 tablet 0 2019 Active tabletIndications: KIERRA mg) by mouth 2 (generalized anxiety times daily disorder) ACCU-CHEK ANNIE PLUS test USE TO TEST BLOOD 100 each 0 2020 Active stripIndications: Type 2 SUGAR ONCE A DAY diabetes mellitus without OR DIRECTED complication, without (NEED TO BE SEEN long-term current use of IN CLINIC FOR insulin (H) FURTHER REFILLS) dapagliflozin (FARXIGA) 10 Take 10 mg by 0 2 Active MG TABS tablet mouth levocetirizine (XYZAL) 5 MG TAKE 1 TABLET BY 0 01/27 Active tablet MOUTH TWICE A DAY rosuvastatin (CRESTOR) 10 rosuvastatin 10 mg tablet 0 07/29/2021 Active MG tablet TAKE 1 TABLET BY MOUTH EVERY DAY gabapentin (NEURONTIN) 300 Take 1 capsule 90 capsule 4 022 Active MG capsuleIndications: (300 mg) by mouth Right facial pain 3 times daily valACYclovir (VALTREX) 1000 Take 1 tablet 21 tablet 0 05/28/20 20 05/ Discontinued mg tablet (1,000 mg) by 08/05 mouth 3 times 22 daily for 7 days Hospital, Clinic, or Other Ordered Dose Route Frequency Start Date End Date Status Facility Administered Medication lidocaine 1 % injection 0.5 .5 mL 09/25/2019 Active mLIndications: Trigger thumb, right thumb lidocaine 1 % injection 4 4 mL 09/25/2019 Active mLIndications: Rotator cuff syndrome of left shoulder lidocaine 1 % injection 5 5 mL 09/25/2019 Active mLIndications: Rotator cuff syndrome of left shoulder triamcinolone (KENALOG-40) 20 mg 09/25/2019 Active injection 20 mgIndications: Trigger thumb, right thumb triamcinolone (KENALOG-40) 40 mg 09/25/2019 Active injection 40 mgIndications: Rotator cuff syndrome of left shoulder Active Problems Problem Noted Date Vaginal bleeding 11/24/2021 Generalized muscle weakness 11/24/2021 YESSI (obstructive sleep apnea) 01/21/2020 Overview: Wears CPAP irregularly Narcolepsy 01/21/2020 Overview: Per pt. No records available. Bilateral incipient cataracts 09/18/2019 Type 2 diabetes mellitus without retinopathy 0 Blepharitis of upper and lower eyelids of both eyes, u nspecified type 09/18/2019 Diabetic gastroparesis 10/04/2018 Advance care planning 09/20/2018 Generalized weakness 09/09/2018 Weakness 08/20/2018 Elevated liver enzymes 08/17/2018 Depression 08/17/2018 Overview: On social security/disability Morbid obesity, unspecified obesity type 09/29/2016 History of corticosteroid therapy 09/29/2016 NAFLD (nonalcoholic fatty liver disease) 07/04/2016 Subclinical hypothyroidism 04/06/2012 Urticaria 04/06/2012 Asthma 04/06/2012 Resolved Problems Problem Noted Date Resolved Date Rotator cuff syndrome of left shoulder 06/04/2020 0 07/20/2020 Adhesive capsulitis of left shoulder 06/04/202010/2020 Neck pain 12/28/2017 02/05/2018 Lumbago 12/28/2017 02/05/2018 Right-sided thoracic back pain 12/28/2017 8 On corticosteroid therapy 07/29/2015 09/28/2016 DM type 2 (diabetes mellitus, type 2); BP Goal <140/90 04/0601/20/2020 Restrictive lung disease 09/20/2018 Encounters Date Type Specialty Care Team Description 04/29/2022 Telephone ENT Dima Hidalgo MD Consult (W as seen by rodrick Jhaveri s a consultation wi th the CT scans. State d there was an appt matilde eduled for 04/26/2022 at 11:00 scheduled by clinic. Saw not lisa on MyChart. ) 04/28/2022 Office Visit Neurology Dima Hidalgo M D Benign exertional headache (Primary Dx); Yair Campos, Right facia l pain 04/28/2022 Travel 04/28/2022 PRE VISIT Neurology Yair Campos Previsit 04/26/2022 Travel 03/11/2022 Hospital Encounter Radiology. Dima Hidalgo MD 03/11/2022 Travel 03/03/2022 Office Visit ENT Dima Hidalgo MD Right faci al pain (Primary Dx) 03/03/2022 Travel 02/28/2022 Transcribe Orders Provider, Generic Sinus itis chronic, External Data frontal (Prima ry Dx) 02/27/2022 Medical Correspondence Outside, Provider ENT SURGEON REFERRAL [facility] 02/15/2022 Travel 02/08/2022 Telephone IM/Peds Krystin Christie Panel Managemen t (AWV, Maren, GLUELINE WORKER mammo, dexa, diab f/u, MANAGER NURSING HOME asthma f/u, imm ) from Last 3 Months Immunizations Name Administration Dates Next Due Influenza Vaccine IM > 6 months Valent IIV4 04/15/2014 (Alfuria,Fluzone) TDAP Vaccine (Adacel) 05/27/2014 Tdap (Adacel,Boostrix) 05/27/2014 Family History Medical History Relation Comments No Known Problems Brother 1 No Known Problems Brother 2 No Known Problems Brother 3 Anxiety Disorder Daughter Depression Daughter Polycystic ovary syndrome Daughter Thyroid Disease Daughter patric thyroiditi s Depression Father Diabetes Father Hypertension Father Dementia Maternal Aunt 1 Dementia Maternal Aunt 2 Dementia Maternal Aunt 3 Dementia Maternal Aunt 4 No Known Problems Maternal Grandfather Depression Maternal Grandmother Cancer Mother Cerebrovascular Disease Mother Dementia Mother Depression Mother Diabetes Mother Glaucoma Mother Hypertension Mother Liver Cancer Mother Lung Cancer Mother Other - See Comments Mother spine cancer No Known Problems Other No Known Problems Paternal Grandfather No Known Problems Paternal Grandmother Bladder Cancer Sister Macular Degeneration No family hx of Relation Status Comments Brother 1 Alive Brother 2 Alive Brother 3 Alive Daughter Alive Father Maternal Aunt 1 Maternal Aunt 2 Maternal Aunt 3 Maternal Aunt 4 Alive Maternal Grandfather Maternal Grandmother Mother Alive Other Paternal Grandfather Paternal Grandmother Sister Alive Social History Tobacco Use Types Packs/Day Years Used Date Smoking Tobacco: Never Smokeless Tobacco: Never Tobacco Cessation: Counseling Given: No Alcohol Use Standard Drinks/Week Comments No 0 (1 standard drink = 0.6 oz pure alcoho l) Sex Assigned at Date Recorded Female 08/17/2018 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 Last Filed Vital Signs Vital Sign Reading Time Taken Comments Blood Pressure 140/88 04/28/2022 8:10 AM CDT Pulse 74 11/30/2021 8:56 AM CDT Temperature 36.9 ??C (98.5 ??F) 11/24/2021 7:37 AM CDT Respiratory Rate 18 11/24/2021 7:37 AM CDT Oxygen Saturation 96% 11/24/2021 7:37 AM CDT Inhaled Oxygen Concentration - - Weight 88.5 kg (195 lb) 04/28/2022 8:10 AM CDT Height 160 cm (5' 3) 04/28/2022 8:10 AM CDT Body Mass Index 34.54 04/28/2022 8:10 AM CDT Plan of Treatment Upcoming Encounters Date Type Specialty Care Team Description 05/19/2022 Office Visit ENT Dima Hidalgo M D [address] [place], [place] [address] (Wo rk) 08/02/2022 Office Visit Neurology Yair Campos MD [address] [place], [place] [address] (Wo rk) Health Maintenance Due Date Last Done Comments ANNUAL REVIEW OF HM ORDERS 1955 CT COLONOGRAPHY 1955 DEXA 1955 FIT-DNA (Cologuard) 1955 FLEX SIG 1955 COVID-19 Vaccine (#1) 1955 Pneumococcal Vaccine: 65+ 1961 Years (1 - PCV) ZOSTER IMMUNIZATION (1 of 2005 2) LIPID 08/16/2019 08/16/2018 MICROALBUMIN 08/16/2019 08/16/2018, 08/09/2016, 06/30/2015 DIABETIC FOOT EXAM 08/17/2019 08/17/2018, 09/28/2016 FIT 08/30/2019 08/30/2018 A1C 11/02/2019 05/03/2019, 01/07/2019, 10/15/2018, Additional history exists TSH W/FREE T4 REFLEX 05/03/2020 05/03/2019, 05/03/2019, 05/03/2019, Additional history exists CMP 06/09/2020 06/09/2019, 01/07/2019, 09/09/2018, Additional history exists MEDICARE ANNUAL WELLNESS 07/18/2020 07/18/2019 VISIT ASTHMA CONTROL TEST 07/23/2020 01/21/2020, 01/07/2019, 08/16/2018 EYE EXAM 09/17/2020 09/18/2019, 09/18/2019, 09/11/2018, Additional history exists ASTHMA ACTION PLAN 01/20/2021 01/21/2020, 08/29/2018, 08/16/2018 FALL RISK ASSESSMENT 01/20/2021 01/21/2020, 01/21/2020, 08/17/2018 MAMMO SCREENING 08/27/2021 08/27/2019, 08/17/2018, 01/08/2016 INFLUENZA VACCINE (#1) 2022 06/10/2019 (Declined), 04/15/2014 BMP 11/23/2022 11/23/2021, 06/10/2019, 06/09/2019, Additional history exists ADVANCE CARE PLANNING 09/21/2023 09/20/2018, 09/20/2018 HPV FOLLOW-UP 07/18/2024 07/18/2019 PAP FOLLOW-UP 07/18/2024 07/18/2019, 12/21/2015, 08/22/2013 COLONOSCOPY 07/18/2025 07/18/2015 COLORECTAL CANCER SCREENING 07/18/2025 DTAP/TDAP/TD IMMUNIZATION 03/18/2031 03/18/2021, 05/27/2014 , (3 - Td or Tdap) 05/27/2014 HEPATITIS C SCREENING Completed 08/24/2018, 02/05/2010, 05/22/2007 PHQ-2 (once per calendar Completed 11/30/2021, 10/01/2021, year) 07/18/2019, Additional history exists IPV IMMUNIZATION Aged Out No longer eligi ble based on patient 's age to complete this topic MENINGITIS IMMUNIZATION Aged Out No longe r eligible based on patient 's age to complete this topic Procedures Procedure Name Priority Date/Time Associated Diagnosis Comme nts CT SINUS W/O Routine 03/11/2022 1:57 PM Results f or this CONTRAST CDT procedure are i n the results section. from Last [address] Sinus w/o Contrast (03/11/2022 1:57 PM CDT) Anatomical Region Laterality Modality Sinus, SUBRAD CT NEURO, SUBRAD CT NEURO, UMP CT NEURO, Computed Tomography RAD CT Specimen (Source) Anatomical Collection Method Collection Time Re ceived Time Location / / Volume Laterality 03/11/2022 1:57 PM CDT Impressions 03/12/2022 11:41 PM CDT IMPRESSION: 1. ??No sinus opacification. 2. ??Drainage pathways are widely patent . 3. ??Nasal septal deviation to the left. Narrative 03/12/2022 11:41 PM CDT EXAM: CT SINUS W/O CONTRAST LOCATION: [facility] DATE/TIME: 03/11/2022 1:57 PM INDICATION: Rhinosinusitis. COMPARISON: None. TECHNIQUE: Routine without contrast. Mul tiplanar reformats. Dose reduction techniques were used. FINDINGS: FRONTAL SINUSES: ??Normal. ETHMOID SINUSES: ??Normal. SPHENOID SINUSES: Normal. MAXILLARY SINUSES: Normal. The floors of the maxillary sinuses are intact. NASAL CAVITY/SKULL BASE: Leftward bowing of the nasal septum without focal defect. Joanie bullosa of the right middle turbinate. The cribriform plate is intact and symmetric. The anterior clinoid processes are not pneumatized. PARANASAL SINUS DRAINAGE PATHWAYS: ??The paranasal sinus drainage pathways are patent. NON-SINUS STRUCTURES: No abnormality of the visualized orbits or intracranial compartment. Procedure Note Yamil Brown MD - 03/12/2022Formattin g of this note might be different from the original. EXAM: CT SINUS W/O CONTRAST LOCATION: [facility] DATE/TIME: 03/11/2022 1:57 PM INDICATION: Rhinosinusitis. COMPARISON: None. TECHNIQUE: Routine without contrast. Mul tiplanar reformats. Dose reduction techniques were used. FINDINGS: FRONTAL SINUSES: Normal. ETHMOID SINUSES: Normal. SPHENOID SINUSES: Normal. MAXILLARY SINUSES: Normal. The floors of the maxillary sinuses are intact. NASAL CAVITY/SKULL BASE: Leftward bowing of the nasal septum without focal defect. Joanie bullosa of the right middle turbinate. The cribriform plate is intact and symmetric. The anterior clinoid processes are not pneumatized. PARANASAL SINUS DRAINAGE PATHWAYS: The p aranasal sinus drainage pathways are patent. NON-SINUS STRUCTURES: No abnormality of the visualized orbits or intracranial compartment. IMPRESSION: 1. No sinus opacification. 2. Drainage pathways are widely patent. 3. Nasal septal deviation to the left. Dima Hidalgo MD IMG CT ORDERABLES from Last 3 Months Insurance Payer Benefit Plan / Subscriber ID Effective Phone Address T ype Group Dates BCBS BCBS [place] [id number] 2020-Prese [phone] [address] [address] PPO BLUE nt [address] [place] [address] MEDICARE MEDICARE FOR HB [id number] 2013-Pres [phone] ATTN CLAIMS Medicare SUPPLEMENT ent 40 [address] [place] [address] [facility] Self [address] (Home) [place] [address] [facility] Mackey Behavioral Self [address] (Home) [place] [address] [facility] Third Libertarian Self [address] (Home) [place] [address] [facility]i Mackey Medication Self [address] Therapy (Home) [place] [address] Advance Directives For more information, please contact: [phone] Latest Code Status on File Code Status Date Activated Date Inactivated Comments Full Code 11/24/2021 2:27 AM 11/24/2021 2:23 PM All basic an d advanced life-sustaining interventions are performed as re ropriate Question Answer Comments Code status determined by: Discussion with patient/ legal de cision maker Code Status History Code Status Date Activated Date Inactivated Comments Full Code 09/10/2018 8:39 AM 06/09/2019 7:05 PM Discussed b y admitting provider. Question Answer Comments Code status determined by: Other (please document) Full Code 09/09/2018 3:26 PM 09/10/2018 8:39 AM Question Answer Comments Code status determined by: Discussion with patient/legal dec ision maker Full Code 08/20/2018 10:43 PM 08/22/2018 7:14 PM Question Answer Comments Code status determined by: Other (please document) Care Teams Commercial Decorator Relationship Specialty Start Date End Date Krystin Christie PCP - General Nurse Practitioner 09/18/19 SAURABH Engel MANAGER NURSING HOME [address] [place] [address] Sonja Tinajero, Pharmacist 08/24/20 [facility] [address] [place] [address] [place], [place] [id number] Sea Tsai MD Neurology 08/04/21 DO Aleks [address] [place] [address] Sea Tsai Assigned Neuroscience 10/10/21 DO Aleks Provider [address] [place] [id number] Stephanie Canela Assigned OBGYN Provider 12/05/21 MD Alee [address] [place] [id number] Krystin Christie Assigned PCP 01/08/22 SAURABH Engel MANAGER NURSING HOME [address] [place] [address] Dima Hidalgo MD MD Otolaryngology 02/15/[address] [id number] Dima Hidalgo MD Assigned Surgical 03/12/22 [address] [place] [address]
--- OUTSIDE RECORDS SUMMARY | 2022-05-09 10:56 | XMS_ITS | Encounter Summary ---
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 documented as of this encounter Progress Notes Triny Puga, RN - 08/10/2021 10:20 AM CST Pre procedure lab order placed. OENGRAVING HELPER documented in this encounter Plan of Treatment Scheduled Orders Name Type Priority Associated Diagnoses Order S chedule ROUTINE IN-HOUSE Microbiology Routine Pre-procedure lab exam E xpected: SARS-COV-2 RNA 08/10/2021, E xpires: (COVID-19) 08/10/2022 documented as of this encounter Visit Diagnoses Diagnosis Pre-procedure lab exam - Primary Pre-procedural laboratory examination documented in this encounter Care Teams Patients Transporter Relationship Specialty Start Date End Date Elsewhere, Pcp PCP - General 05/20/21 documented as of this encounter
--- OUTSIDE RECORDS SUMMARY | 2022-05-09 10:56 | XMS_ITS | Encounter Summary ---
:1955 Author Organization [employer] Address [address] [address] Phone Care Team Providers Name Role Phone Elsewhere, Pcp Primary Care Provider Unavailable Reason for Visit Reason Onset Date Comments Durable Medical Equipment (DME) 06/18/2021 Freestyl e miriam sensors Encounter Details Date Type Department Care Team Description 06/18/2021 Telephone [facility] Mona Wadsworth Dur able [facility] ENDOCRINOLOGY RN Equipment (DME) [address] [place] [address] (Freestyle miriam SHELBYRUPESH [id number] sensors ) [phone] Social History Tobacco Use Types Packs/Day Years Used Date Smoking Tobacco: Never Smokeless Tobacco: Never Sex Assigned at Date Recorded Female 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 documented as of this encounter Ordered Prescriptions Prescription Sig Dispensed Refills Start Date End Date Continuous Blood Gluc 1 Each by Does not 2 Each 5 2020 Sensor (FreeStyle Miriam 2 apply route every 14 Sensor) MiscIndications: days. Diabetes type 2, no ocular involvement (HCC) documented in this encounter Miscellaneous Notes Telephone Encounter - Mona Staples RN - 06/18/2021 8:56 AM CST Reviewed with pt. Advised pt can use her cell phone. Pt will use her cell phone for now to use with the Freestyle Miriam 14 day sensors. Going forward pt would like to have the alarm feature. Will send in Miriam 2 ANALYST Telephone Encounter - Mona Staples RN - 06/18/2021 8:39 AM CST Pt left VM on nurse line requesting CB. Believes the pharmacy dispensed her the wrong Miriam prescription. Pt is in need of the Miriam 2 sensors. Appears the office did send in freestyle miriam 14-day sensors. ANALYST documented in this encounter Plan of Treatment Not on filedocumented as of this encounter Visit Diagnoses Diagnosis Diabetes type 2, no ocular involvement ( HCC) - Primary documented in this encounter Discontinued Medications Medication Sig Discontinue Reason Start Date End Date Continuous Blood Gluc 1 Device by Does Changed to an alternate 05/1706/18/2021 Sensor (FreeStyle not apply route therapy Miriam 14 Day Sensor) every 14 days. Misc documented as of this encounter Care Teams Road Supervisor Relationship Specialty Start Date End Date Elsewhere, Pcp PCP - General 05/20/21 documented as of this encounter
--- OUTSIDE RECORDS SUMMARY | 2022-05-09 10:56 | XMS_ITS | Encounter Summary ---
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 documented as of this encounter Plan of Treatment Not on filedocumented as of this encounter Procedures Procedure Name Priority Date/Time Associated Diagnosis Comme nts ROUTINE IN-HOUSE Routine 07/25/2021 11:35 AM Elevated liver Re sults for this SARS-COV-2 RNA JOB P[employer] PREPARER enzymes procedure are in (COVID-19) the results section. documented in this encounter Results ROUTINE IN-HOUSE SARS-COV-2 RNA (COVID-19) (07/25/2021 11:35 AM JOB PUTTER UP AND TICKET PREPARER) [facility] Method Time Signature SARS-CoV-2 Not Not Detected, 07/25/2021 [facility] TWO RNA Detected Presumptive 9:38 PM JOB PUTTER UP AND TICKET PREPARER TWELVE (COVID-19) Negative, LABORATORY Negative Specimen Anatomical Collection Method Collection Time Receive d Time (Source) Location / / Volume Laterality Swab NASAL / Unknown Non-blood 07/25/2021 11:35 07/25/19 22 collection / AM JOB [employer] TICKET PREPARER 11:35 AM JOB P[employer]TER UP AND TICKET PREPARER Unknown Narrative [facility] - 2021 9:38 PM JOB P[employer]TER UP AND TICKET PREPARER Negative results do not preclude 2019-nCoV infection and should not be used as the sole basis for laxmi atment or other patient management decis ions. ??Negative results must be combined with clinical observations, patient history, and epidemiological information. This test was performed using a RT-PCR a ssay designed for qualitative detection of severe acute respiratory syndrome coronavirus 2 (SARS-CoV-2) RNA. Shane Farias MD [facility] MICROBIOLOGY - GENERAL OR DERABLES Performing Organization Address City/State/ZIP Code Phon e Number [facility] [address] [place] [id number] documented in this encounter Visit Diagnoses Diagnosis Encounter for preoperative screening lab oratory testing for COVID-19 virus - Primary Elevated liver enzymes Nonspecific elevation of levels of trans aminase or lactic acid dehydrogenase (LDH) documented in this encounter Orders Other Count Last Ordered Date First Ordered Date OFFICE/OUTPT VISIT,CARLINE NUÑEZ I 1 07/25/2021 documented in this encounter Care Teams Geophysicist Relationship Specialty Start Date End Date Elsewhere, Pcp PCP - General 05/20/21 documented as of this encounter
--- OUTSIDE RECORDS SUMMARY | 2022-05-09 10:56 | XMS_ITS | Encounter Summary ---
:1955 Author Organization [employer] Address [address] [address] Phone Care Team Providers Name Role Phone Elsewhere, Pcp Primary Care Provider Unavailable Reason for Visit Reason Onset Date Comments Appointment 08/06/2021 MD ALLERGY IMMUNOLOGY referral from [facility] ocrinology Headaches. Encounter Details Date Type Department Care Team Description 08/06/2021 Telephone [facility] Zoie Yu (MD ALLERGY IMMUNOLOGY referral [facility]. 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 documented as of this encounter Miscellaneous Notes Telephone Encounter - Cameroncheyenne [place] A - 08/11/2021 9:08 AM CST Scheduled 08/17/21 brynn/ Marlene TING MACHINE OPERATOR Telephone Encounter - Marlene Viveros PA-C - 08/09/2021 10:57 AM CST Reviewed headache documentation. Okay to offer MD ALLERGY IMMUNOLOGY 60 minute visit with me for headaches if patient prefers not to wait for one of the neurologists. Thanks. TING MACHINE OPERATOR Telephone Encounter - Zoie Smith RN - 08/06/2021 2:01 PM CST Referral from Endocrinology for Neurology consultation for Headaches. Wondering if Marlene AGUIRRE would be willing to see MD ALLERGY IMMUNOLOGY? Will forward to provider for review of referral and records and if OK to schedule with Marlene? TING MACHINE OPERATOR documented in this encounter Plan of Treatment Not on filedocumented as of this encounter Visit Diagnoses Not on filedocumented in this encounter Care Teams Consulting Engineer Relationship Specialty Start Date End Date Elsewhere, Pcp PCP - General 05/20/21 documented as of this encounter
--- OUTSIDE RECORDS SUMMARY | 2022-05-09 10:56 | XMS_ITS | Encounter Summary ---
:1955 Author Organization [employer] Address [address] [address] Phone Care Team Providers Name Role Phone Elsewhere, Pcp Primary Care Provider Unavailable Reason for Referral Office Visit (Routine) - Closed Specialty Diagnoses / Procedures Referred By Contact Refer red To Contact Neurology Diagnoses Acute intractable headache, unspecified headache type Anju Garcia APRN, CNP [address] [address] Referral ID Status Reason Start Date Expiration Date Visits Requ ested Visits Authorized [id number] Closed 07/29/2021 07/29/2022 1 1 Comments Appt with Neurology: Neurology Consult For outside referrals, enter Unknown for Location or Provider if unable to find and enter name and location of desired provi barrera here. Reason for Referral: headache ffice Visit (Routine) - Closed Specialty Diagnoses / Procedures Referred By Contact Refer red To Contact Orthopedic Surgery / Diagnoses Right knee pain, unspecified chronicity Anju Garcia [facility] JOEL WILEY [address] [address] Referral ID Status Reason Start Date Expiration Date Visits Requ ested Visits Authorized [id number] Closed 07/29/2021 07/29/2022 1 1 Comments Reason for Referral: Right knee pain UNLOADER Reason for Visit Reason Comments Follow Up Diabetes and thyroid Encounter Details Date Type Department Care Team Description 07/29/2021 Office Visit HIALEAH Anju Alicea Right k nee pain, unspecified chronicity (Primary Dx); [facility] Diabetes type 2, no ocular involvement ( HCC); ENDOCRINOLOGY [address] [address] Hypothyroidism, unspecified type; [address] [facility] [address] Hyperlipidemia, unspecified hyperlipidem ia type; [facility] RUPESH Elevated liver enzymes; [address] [id number] Acute intractable headache, unspecified headache type RUPESH JEREZ [phone] (Work) [phone] Social History Tobacco Use Types Packs/Day Years [...] at Date Recorded Female 07/15/2021 1:16 PM CAR UNLOADER Job Start Date Occupation Industry Not on file Not on file Not on file COVID-19 Exposure Response Date Recorded In the last month, have you been in contact with No / Unsure 08/12/2021 10:45 AM CAR UNLOADER someone who was confirmed or suspected to have Coronavirus / COVID-19? documented as of this encounter Last Filed Vital Signs Vital Sign Reading Time Taken Comments Blood Pressure 136/62 07/29/2021 3:12 PM CAR UNLOADER Pulse 76 07/29/2021 3:12 PM CAR UNLOADER Temperature - - Respiratory Rate - - Oxygen Saturation - - Inhaled Oxygen Concentration - - Weight 90.1 kg (198 lb 9 oz) 07/29/2021 3:12 PM CAR UNLOADER Height 160 cm (5' 3) 07/29/2021 3:12 PM CAR UNLOADER Body Mass Index 35.17 07/29/2021 3:12 PM CAR UNLOADER documented in this encounter Patient Instructions Patient InstructionsAnju Garcia, JOEL WILEY - 07/29/2021 3:30 PM CST Problem List Items Addressed This Visit Nervous Acute intractable headache, unspecified headache type We recommend follow-up in ER / UC for imaging as this is a new headache, acute, intense, worst headache of her life, brain tumor history, increased intensity of headache, initiated by exercise. 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 If you develop symptoms, please contact us. This medication increases glucose excretion in your urine. Side effects include : frequent urination, dry mouth, dizziness, lightheadedness, low blood pressureand yeast infections. Please stop this medication and contact us if you have any side effects or concerns. We will plan to check your electrolytes (labs - CMP) in 3-4 weeks after starting this medication. If this is not covered or she has side effects, we will start : - Glipzide 5 mg, 1/2 tablet, twice daily with meals. - Metformin 500 mg ER (okay'd per GI) High Blood Sugars : 1.) Check sugars very frequently - every 2-3 hours. 2.) Continue to take diabetes medications as directed 3.) Increase sugar free fluids / water 4.) Check urine or blood ketones 5.) Go to ER for treatment of DKA if symptoms develop such as : Fatigue Dry or flushed skin Nausea, vomiting, or abdominal pain Difficulty breathing Fruity odor on breath A hard time paying attention, or confusion Low Blood Sugars : If you experience [...] Please contact us if you have low blood sugars and we can discuss medication changes to prevent low blood sugars Please follow-up in 1 month and or sooner if any concerns. Relevant Medications dapagliflozin (Farxiga) 10 MG Tablet Other Relevant Orders GLUCOSE MONITOR, ANALYSIS, INTERP AND REPORT (Completed) Hypothyroidism, unspecified type Thyroid Stimulating hormone Date Value Ref Range Status 05/20/2021 5.403 (H) 0.350 - 3.740 UIU/mL Final T4, Free Date Value Ref Range Status 05/20/2021 0.94 0.76 - 1.46 ng/dL Final T3, TOTAL Date Value Ref Range Status 05/20/2021 136 60 - 181 ng/dL Final Please Continue your same dose of Levothyroxine 100 mcg daily Please take this medicine on an empty stomach, 30 minutes before eating without any other medications. Please try to take the medicine at the same time each day. It may take several weeks before your body starts to respond to this medication. We will plan to recheck your thyroid labs today We will continue to monitor your thyroid labs and make changes to your thyroid medication dose as needed to optimize your treatment. Relevant Orders THYROID STIMULATING HORMONE T4, FREE T3, TOTAL Hyperlipemia Lab Results Component Value Date CHOL 250 [...] and stroke. Side effects include: abdominal upset, muscle pain or weakness. Please contact us if you have any concerns or side effects. We will check liver tests in 1 month after starting Rosuvastatin We will recheck your fasting lipid panel in 3-6 months Relevant Orders COMPREHENSIVE METABOLIC PANEL Other Elevated liver enzymes As per GI : Endocrinology requesting direction regarding Metformin and statin, okay to proceed withboth, monitor LFTs in 4 weeks after starting statin. *We will check liver function tests 1 month after starting Rosuvastatin 10 mg daily Follow-up with GI Relevant Orders COMPREHENSIVE METABOLIC PANEL Other Visit Diagnoses Right knee pain, unspecified chronicity - Primary Relevant Orders APPT WITH ORTHOPEDICS CC If your provider has ordered a radiology test that needs to be scheduled at any of the [place] facilities, for your convenience and to offer you the best service, we ask that you contact the [facility] directly at [phone]. If you have an Ultrasound or DEXA order from [facility], those are performed directly by them. Please call [phone] ([place]) or [phone] ([place]) to schedule those tests. UNLOADER documented in this encounter Ordered Prescriptions Prescription Sig Dispensed Refills Start Date End Date rosuvastatin (Crestor) 10 Take 1 Tablet by 30 Tablet 2 07/1712/20/2021 MG tablet mouth one time a day. dapagliflozin (Farxiga) Take 1 Tablet by 90 Tablet 3 202108/17/2021 10 MG Tablet mouth one time a day. glipiZIDE (Glucotrol) 5 Take 1/2 tablet with 30 Tablet 2 07/29/2021 MG tablet breakfast and supper if blood sugars are greater than 120 mg/dL documented in this encounter Progress Notes Anju Garcia APRN, JOEL - 07/29/2021 3:30 PM CST [facility] Office Visit Becki Mackey [facility] is a 66 year old female who presents for Follow Up (Diabetes and thyroid) Subjective No notes on file HPI Becki is here for follow-up of discuss asthma / lung disease, diabetes, elevated liver enzymes (VILLAREAL) and hypothyroidism Diabetes. She was diagnosed with diabetes in 2015. She has never been hospitalized for diabetes. Diabetes Medications : None, diet and exercise. Previous DM Medications include : - Glipizide 10 mg twice daily (low blood sugars) - Metformin (did not control sugars, ? Liver cirrhosis) - GLP-1 ($$$, denies side effects) Consider : Rechallenge Metformin : *Only if approved by GI / Hepatology prior. - As per GI : Endocrinology requesting direction regarding Metformin and statin, okay to proceed with both, monitor LFTs in 4 weeks after starting statin. SGLT-2 : Denies kidney disease. She has a distant history of yeast infections GLP-1 : Denies history of medullary thyroid cancer, history GI disease, pancreatitis ($$$) Pioglitazone : Denies CHF, osteoporosis. Her sister has bladder cancer - she is following up with Urology in June. We will avoid this unless approved by Urology. DPP-4 : Denies history of pancreatitis Re-challenge Glipizide Insulin Blood sugars / CGM. We downloaded and analyzed her CGM today. Average blood sugar is 135 mg/dL with standard deviation of 21.1%. Her sugars have significantly improved. Her sugars are in target range 94% of the time. Sugars have significantly improved with diet changes. Thyroid History. Becki was diagnosed with thyroid problems in 2016. Denies history of radiation to head or neck. denies history of Amiodarone, [place] - history of Prednisone, not within the last [address] scan with IV contrast dye. denies recent upperrespiratory illness. denies recent . Thyroid Meds. She is taking Levothyroxine 100 mcg daily. She endorses occasional non-compliance withher thyroid medication. We will recheck her thyroid labs today. Thyroid Symptoms. Denies significant hyper or hypothyroid symptoms, with exception of fatigue. She reports difficulty swallowing, compressive symptoms. Thyroid Labs. We reviewed and discussed labs together today. Thyroid Stimulating hormone Date Value Ref Range Status 05/20/2021 5.403 (H) 0.350 - 3.740 UIU/mL Final T4, Free Date Value Ref Range Status 05/20/2021 0.94 0.76 - 1.46 ng/dL Final T3, TOTAL Date Value Ref Range Status 05/20/2021 136 60 - 181 ng/dL Final Thyroid Imaging. She will complete thyroid US. She has had esophogram previously. Exercise induced frontal headache. She developed an intense headache x5 days ago with exercise. She has exercised 3 times this week, each time she developed an intense frontal head, with increasingintensity each time she exercised (01/23, 03/26, 29/04). She did not follow-up in the ER any of these times. This is a new headache, never had headaches before. Headache is initiated by exercise. She does report significant increase in headache intensity. Denies vision changes. Denies systemic symptoms including fever, chills, weight loss, night sweats. She does have a 2/10 pain on the right side of her forehead today in clinic. We recommend follow-up in ER / UC for imaging. Unable to discuss with Neurologist. Diabetes Control and Complications: Glycemic Control Poor Estimated A1c is 6.5% as per CGM Lab Results Component Value Date HGA1C 10.7 05/20/2021 Insulin Patient is not taking insulin Insulin start date : N/A B.P. Control Good BP Readings from Last 1 Encounters: 07/29/21 136/62 B.P. Medications None Statin NO We will start Rosuvastsatin 10 mg daily. This has been approved by GI - we will check LFTSin 1 month. Lipid control LDL elevated As per GI : Endocrinology requesting direction regarding Metformin and statin, okay to proceed with both, monitor LFTs in 4 weeks after starting statin. Lab Results Component Value Date CHOL 250 05/20/2021 Lab Results Component Value Date TRIG 159 05/20/2021 Lab Results Component Value Date HDL 49 05/20/2021 Lab Results Component Value Date LDLC 169 05/20/2021 Renal Status Good Lab Results Component Value Date ALBCR 05/20/2021 Comment: MALB/CREAT Urine ratio not calculated due to urine microalbumin and/or urine creatinine result(s) are outside of the linearity of the instrument. No results found for: UACR Lab Results Component Value Date CREAT 0.55 05/20/2021 Lab Results Component Value Date GFR >60 05/20/2021 ZARINA / ARB No. Neuropathy Improved Consider Alpha Lipoic Acid 600 mg daily Feet Denies concerns with feet. Did not assess closely monitor and examine feet daily Retinopathy No follows regularly with ophthalmology and denies acute eye concerns today Smoking Status non-smoker ASA No denies chest pain, chest pressure or shortness of breath Today, we will : 1.) Start Farxiga 10 mg once daily in the morning. We discussed the mechanism of action and side effects of the medication. Advised patient to call us if she is experiencing any side effects or has anyquestions or concerns. 2.) If this is not covered or she has side effects, we will start : - Glipzide 5 mg, 1/2 tablet, twice daily with meals. - Metformin 500 mg ER (okay'd per GI) 3.) Start Rosvuatastin 10 mg daily. We discussed the mechanism of action and side effects of the medication. Advised patient to call us if she is experiencing any side effects or has any questions or concerns. 4.) Check TFTs 5.) Check LFTs in 1 month 6.) Refer to ER for headache The following portions of the chart were reviewed this encounter and updated as appropriate: Tobacco Allergies Meds Problems Med Hx Surg Hx Fam Hx Review of Systems Constitutional: Negative. HENT: Negative. Eyes: Negative. Respiratory: Negative. Cardiovascular: Negative. Gastrointestinal: Negative. Endocrine: Negative. Genitourinary: Negative. Musculoskeletal: Negative. Skin: Negative. Allergic/Immunologic: Negative. Neurological: Negative. Hematological: Negative. Psychiatric/Behavioral: Negative. All other systems reviewed and are negative. Objective Physical Exam Constitutional: Appearance: Normal appearance. HENT: Head: Normocephalic and atraumatic. Eyes: Extraocular Movements: Extraocular movements intact. Pupils: Pupils are equal, round, and reactive to light. Cardiovascular: Rate and Rhythm: Normal rate and regular rhythm. Pulses: Normal pulses. Heart sounds: Normal heart sounds. Pulmonary: Effort: Pulmonary effort is normal. Breath sounds: Normal breath sounds. Musculoskeletal: General: Normal range of motion. Cervical back: Normal range of motion and neck supple. Skin: General: Skin is warm and dry. Neurological: General: No focal deficit present. Mental Status: She is alert and oriented to person, place, and time. Psychiatric: Mood and Affect: Mood normal. Behavior: Behavior normal. Thought Content: Thought content normal. Judgment: Judgment normal. Procedures Assessment/Plan Click here to update Care Team. (Optional):[id number]} Problem List Items Addressed This Visit Nervous Acute intractable headache, unspecified headache type We recommend follow-up in ER / UC for imaging as this is a new headache, acute, intense, worst headache of her life, brain tumor history, increased intensity of headache, initiated by exercise. 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 If you develop symptoms, please contact us. This medication increases glucose excretion in your urine. Side effects include : frequent urination, dry mouth, dizziness, lightheadedness, low blood pressureand yeast infections. Please stop this medication and contact us if you have any side effects or concerns. We will plan to check your electrolytes (labs - CMP) in 3-4 weeks after starting this medication. If this is not covered or she has side effects, we will start : - Glipzide 5 mg, 1/2 tablet, twice daily with meals. - Metformin 500 mg ER (okay'd per GI) High Blood Sugars : 1.) Check sugars very frequently - every 2-3 hours. 2.) Continue to take diabetes medications as directed 3.) Increase sugar free fluids / water 4.) Check urine or blood ketones 5.) Go to ER for treatment of DKA if symptoms develop such as : Fatigue Dry or flushed skin Nausea, vomiting, or abdominal pain Difficulty breathing Fruity odor on breath A hard time paying attention, or confusion Low Blood Sugars : If you experience [...] Please contact us if you have low blood sugars and we can discuss medication changes to prevent low blood sugars Please follow-up in 1 month and or sooner if any concerns. Relevant Medications dapagliflozin (Farxiga) 10 MG Tablet Other Relevant Orders GLUCOSE MONITOR, ANALYSIS, INTERP AND REPORT (Completed) Hypothyroidism, unspecified type Thyroid Stimulating hormone Date Value Ref Range Status 05/20/2021 5.403 (H) 0.350 - 3.740 UIU/mL Final T4, Free Date Value Ref Range Status 05/20/2021 0.94 0.76 - 1.46 ng/dL Final T3, TOTAL Date Value Ref Range Status 05/20/2021 136 60 - 181 ng/dL Final Please Continue your same dose of Levothyroxine 100 mcg daily Please take this medicine on an empty stomach, 30 minutes before eating without any other medications. Please try to take the medicine at the same time each day. It may take several weeks before your body starts to respond to this medication. We will plan to recheck your thyroid labs today We will continue to monitor your thyroid labs and make changes to your thyroid medication dose as needed to optimize your treatment. Relevant Orders THYROID STIMULATING HORMONE T4, FREE T3, TOTAL Hyperlipemia Lab Results Component Value Date CHOL 250 [...] and stroke. Side effects include: abdominal upset, muscle pain or weakness. Please contact us if you have any concerns or side effects. We will check liver tests in 1 month after starting Rosuvastatin We will recheck your fasting lipid panel in 3-6 months Relevant Orders COMPREHENSIVE METABOLIC PANEL Other Elevated liver enzymes As per GI : Endocrinology requesting direction regarding Metformin and statin, okay to proceed withboth, monitor LFTs in 4 weeks after starting statin. *We will check liver function tests 1 month after starting Rosuvastatin 10 mg daily Follow-up with GI Relevant Orders COMPREHENSIVE METABOLIC PANEL Other Visit Diagnoses Right knee pain, unspecified chronicity - Primary Relevant Orders APPT WITH ORTHOPEDICS CC Followup Plans: Return in about 1 month (around 08/29/2021) for Labs. CGM [address] yes No notes on file The time spent with this patient includes patient counseling and coordination of care; the time spent does *NOT* include time downloading CGM - Mandrel Puller downloads the CGM and this is not included in time spent with patient. UNLOADER documented in this encounter Miscellaneous Notes Assessment & Plan Note - Anju Garcia APRN, CNP - 07/29/2021 4:07 PM CAR UNLOADER Associated Problem(s): Benign exertional headache We recommend follow-up in ER / UC for imaging as this is a new headache, acute, intense, worst headache of her life, brain tumor history, increased intensity of headache, initiated by exercise. Unable to discuss with Neurologist, however will place referral UNLOADER Assessment & Plan Note - Anju Garcia APRN, CNP - 07/29/2021 4:05 PM CAR UNLOADER Associated Problem(s): Elevated liver enzymes As per GI : Endocrinology requesting direction regarding Metformin and statin, okay to proceed with both, monitor LFTs in 4 weeks after starting statin. *We will check liver function tests 1 month after starting Rosuvastatin 10 mg daily Follow-up with GI UNLOADER Assessment & Plan Note - Anju Garcia APRN, CNP - 07/29/2021 4:05 PM CAR UNLOADER Associated Problem(s): Hypothyroidism, unspecified type Thyroid Stimulating hormone Date Value Ref Range Status 05/20/2021 5.403 (H) 0.350 - 3.740 UIU/mL Final T4, Free Date Value Ref Range Status 05/20/2021 0.94 0.76 - 1.46 ng/dL Final T3, TOTAL Date Value Ref Range Status 05/20/2021 136 60 - 181 ng/dL Final Please Continue your same dose of Levothyroxine 100 mcg daily Please take this medicine on an empty stomach, 30 minutes before eating without any other medications. Please try to take the medicine at the same time each day. It may take several weeks before your body starts to respond to this medication. We will plan to recheck your thyroid labs today We will continue to monitor your thyroid labs and make changes to your thyroid medication dose as needed to optimize your treatment. UNLOADER Assessment & Plan Note - Anju Garcia APRN, CNP - 07/29/2021 4:04 PM CAR UNLOADER Associated Problem(s): Hyperlipemia Lab Results Component Value Date CHOL 250 [...] and stroke. Side effects include: abdominal upset, muscle pain or weakness. Please contact us if you have any concerns or side effects. 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 If you develop symptoms, please contact us. This medication increases glucose excretion in your urine. Side effects include : frequent urination, dry mouth, dizziness, lightheadedness, low blood pressureand yeast infections. Please stop this medication and contact us if you have any side effects or concerns. We will plan to check your electrolytes (labs - CMP) in 3-4 weeks after starting this medication. If this is not covered or she has side effects, we will start : - Glipzide 5 mg, 1/2 tablet, twice daily with meals. - Metformin 500 mg ER (okay'd per GI) High Blood Sugars : 1.) Check sugars very frequently - every 2-3 hours. 2.) Continue to take diabetes medications as directed 3.) Increase sugar free fluids / water 4.) Check urine or blood ketones 5.) Go to ER for treatment of DKA if symptoms develop such as : Fatigue Dry or flushed skin Nausea, vomiting, or abdominal pain Difficulty breathing Fruity odor on breath A hard time paying attention, or confusion Low Blood Sugars : If you experience [...] Please contact us if you have low blood sugars and we can discuss medication changes to prevent low blood sugars Please follow-up in 1 month and or sooner if any concerns. UNLOADER documented in this encounter Plan of Treatment Scheduled Referrals Name Type Priority Associated Diagnoses Order S chedule APPT WITH ORTHOPEDICS CC REFERRAL Routine Right knee pain, Ordered: 07/29/2021 unspecified chronicity APPT WITH NEUROLOGY CC REFERRAL Routine Acute intractable Ordered: 07/29/2021 headache, unspecified headache type documented as of this encounter Procedures Procedure Name Priority Date/Time Associated Diagnosis Comme nts GLUCOSE MONITOR, Routine 07/29/2021 4:10 PM CAR UNLOADER Diabetes type 2, no ANALYSIS, INTERP AND ocular involvement REPORT (HCC) documented in this encounter Results (ABNORMAL) COMPREHENSIVE METABOLIC PANEL (08/10/2021 3:29 PM CAR UNLOADER) [facility] Method Time Signature Sodium 140 136 - 145 08/10/2021 [place] mmol/L 4:00 PM CAR UNLOADER [facility] Potassium 3.7 3.5 - 5.1 08/10/2021 [place] mmol/L 4:00 PM [facility] Chloride 106 98 - 107 08/10/2021 [place] mmol/L 4:00 PM [facility] Carbon Dioxide 25 21 - 32 08/10/2021 [place] mmol/L 4:00 PM [facility] Calcium 9.0 8.5 - 08/10/2021 [place] 10.1 4:00 PM [facility]/dL [facility] Alkaline Phosphatase 64 46 - 116 08/10/2021 [place] W U/L 4:00 PM [facility] Aspartate 32 15 - 37 08/10/2021 [place] Aminotransferase U/L 4:00 PM [facility] Alanine 62 14 - 63 08/10/2021 [place] Aminotransferase U/L 4:00 PM [facility] Glucose 215 (H) 74 - 100 08/10/2021 [place] mg/dL 4:00 PM [facility] LABORATORY Blood Urea nitrogen 9 7 - 18 08/10/2021 [place] mg/dL 4:00 PM [facility]OR[facility]ORY Creatinine 0.58 0.51 - 08/10/2021 [place] 0.95 4:00 PM [facility]/dL [facility] Protein, Total 7.4 6.4 - 8.2 08/10/2021 [place] g/dL 4:00 PM [facility] Albumin 3.7 3.4 - 5.0 08/10/2021 [place] g/dL 4:00 PM [facility] Bilirubin, Total 0.6 0.2 - 1.0 08/10/2021 [place] mg/dL 4:00 PM [facility] Glomerular >60 >=60 08/10/2021 [place] Filtration Rate mL/min/1. 4:00 PM [place] [id number] LABORATORY Globulin 3.7 1.4 - 4.8 08/10/2021 [place] g/dL 4:00 PM [facility] Anion Gap 9.3 5 - 15 08/10/2021 [place] mmol/L 4:00 PM [facility] Specimen Anatomical Collection Method / Collection Time Recei bobbi Time (Source) Location / Volume Laterality Blood BLOOD SPECIMEN / Venipuncture / 08/10/2021 3:29 2021 3:29 Unknown Unknown PM CAR UNLOADER PM CAR UNLOADER Anju Garcia APRN RV DETAILER EC CHEMISTRY ORDERABLES Performing Organization Address [facility]/[address] [address] LABORATORY T3, TOTAL (08/10/2021 3:29 PM CAR UNLOADER) athologist Signature T3, TOTAL 104 60 - 181 08/10/2021 [place] ng/dL 4:16 PM CAR UNLOADER [facility] LABORATORY Specimen Anatomical Collection Method / Collection Time Recei bobbi Time (Source) Location / Volume Laterality Blood BLOOD SPECIMEN / Venipuncture / 08/10/2021 3:29 2021 3:29 Unknown Unknown PM CAR UNLOADER PM CAR UNLOADER Anju Garcia APRN RV DETAILER EC LAB SEND OUT ORDERABLES Performing Organization Address [facility]/[address] [address] LABORATORY T4, FREE (08/10/2021 3:29 PM CAR UNLOADER) athologist Signature T4, Free 1.05 0.76 - 1.46 08/10/2021 [facility] ng/dL 4:00 PM CAR UNLOADER [facility] LABORATORY Specimen Anatomical Collection Method / Collection Time Recei bobbi Time (Source) Location / Volume Laterality Blood BLOOD SPECIMEN / Venipuncture / 08/10/2021 3:29 2021 3:29 Unknown Unknown PM CAR UNLOADER PM CAR UNLOADER Anju Garcia APRN, RV DETAILER EC CHEMISTRY ORDERABLES ABN Performing Organization Address [facility]/[address] [address] LABORATORY (ABNORMAL) THYROID STIMULATING HORMONE (08/10/2021 3:29 PM CAR UNLOADER) [facility] gist Method Time Signature Thyroid 4.483 (H) 0.350 - 08/10/2021 [facility] Stimulating 3.740 4:00 PM CAR UNLOADER [place] hormone [facility]/mL HOSPITAL LABORATORY Specimen Anatomical Collection Method / Collection Time Recei bobbi Time (Source) Location / Volume Laterality Blood BLOOD SPECIMEN / Venipuncture / 08/10/2021 3:29 2021 3:29 Unknown Unknown PM CAR UNLOADER PM CAR UNLOADER Anju Garcia APRN, CNP EC CHEMISTRY ORDERABLES ABN Performing Organization Address City/State/ZIP Code Phon e Number [facility] [address] [address] LABORATORY documented in this encounter Visit Diagnoses Diagnosis Right knee pain, unspecified chronicity - Primary Diabetes type 2, 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 glipiZIDE (Glucotrol) 5 Take 1/2 tablet with Other 2 07/29/2021 MG tablet breakfast and supper if blood sugars are greater than 120 mg/dL documented as of this encounter Historical Medications This list may reflect changes made after this encounter. Medication Sig Dispensed Refills Start Date End Date Continuous Blood Gluc FreeStyle Miriam 2 0 Sensor (FreeStyle Miriam 2 Sensor kit Sensor) Misc Potassium Gluconate 2.5 Take by mouth. 0 04/15/20 14 MEQ Tablet lancets, Accu-Chek 0 04/26/2013 Multiclix, (Accu-Chek Multiclix) ipratropium-albuterol Inhale 3 mL into the 0 07/18 (DUO-NEB) 0.5-2.5 (3) lungs as needed. MG/3ML Solution EPINEPHrine, Inject 0.3 mg into 0 auto-injector, 0.3 the muscle. MG/0.3ML Solution Auto-injector injection diclofenac (Voltaren) 1 % Place 4 g onto the 0 Gel skin four times a day as needed. vitamin D3, Take 1,000 Units by 0 cholecalciferol, 25 mcg mouth one time a (1000 units) tablet day. cetirizine (ZyrTEC) 10 MG Take 10 mg by mouth. 0 04/15/2014 tablet albuterol HFA (Proair Inhale 2 Puffs into 0 01/13 HFA, Ventolin HFA) 108 the lungs every six (90 Base) MCG/ACT hours as needed. inhalation aerosol dapagliflozin (Farxiga) Take 1 Tablet by 0 202108/25/2021 10 MG TabletIndications: mouth one time a Diabetes type 2, no day. ocular involvement (HCC) added in this encounter Orders Procedures Count Last Ordered Date First Ordered Date GLUCOSE MONITOR, ANALYSIS, INTERP AND 1 07/29/2021 REPORT documented in this encounter Care Teams Steel Tester Relationship Specialty Start Date End Date Elsewhere, Pcp PCP - General 05/20/21 documented as of this encounter
--- OUTSIDE RECORDS SUMMARY | 2022-05-09 10:56 | XMS_ITS | Encounter Summary ---
:1955 Author Organization [employer] Address [address] [address] Phone Care Team Providers Name Role Phone Elsewhere, Pcp Primary Care Provider Unavailable Encounter Details Date Type Department Care Team Description 07/29/2021 Travel Social History Tobacco Use Types Packs/Day [...] at Date Recorded Female 07/15/2021 1:16 PM CHANNEL LAYER Job Start Date Occupation Industry Not on file Not on file Not on file COVID-19 Exposure Response Date Recorded In the last month, have you been in contact with No / Unsure 07/29/2021 3:07 PM CHANNEL LAYER someone who was confirmed or suspected to have Coronavirus / COVID-19? documented as of this encounter Plan of Treatment Not on filedocumented as of this encounter Visit Diagnoses Not on filedocumented in this encounter Care Teams Detail Technician Relationship Specialty Start Date End Date Elsewhere, Pcp PCP - General 05/20/21 documented as of this encounter
--- OUTSIDE RECORDS SUMMARY | 2022-05-09 10:56 | XMS_ITS | Encounter Summary ---
:1955 Author Organization [employer] Address [address] [address] Phone Care Team Providers Name Role Phone Elsewhere, Pcp Primary Care Provider Unavailable Encounter Details Date Type Department Care Team Description 07/15/2021 Travel Social History Tobacco Use Types Packs/Day [...] at Date Recorded Female 07/15/2021 1:[address] [employer] Job Start Date Occupation Industry Not on file Not on file Not on file COVID-19 Exposure Response Date Recorded In the last month, have you been in contact with No / Unsure 07/15/2021 1:[address] someone who was confirmed or suspected to have Coronavirus / COVID-19? documented as of this encounter Plan of Treatment Not on filedocumented as of this encounter Visit Diagnoses Not on filedocumented in this encounter Care Teams Driver Relationship Specialty Start Date End Date Elsewhere, Pcp PCP - General 05/20/21 documented as of this encounter
--- OUTSIDE RECORDS SUMMARY | 2022-05-09 10:56 | XMS_ITS | Encounter Summary ---
:1955 Author Organization [employer] Address [address] [address] Phone Care Team Providers Name Role Phone Elsewhere, Pcp Primary Care Provider Unavailable Encounter Details Date Type Department Care Team Description 07/16/2021 Travel Social History Tobacco Use Types Packs/Day [...] at Date Recorded Female 07/15/2021 1:16 PM GRANITE CUTTER Job Start Date Occupation Industry Not on file Not on file Not on file COVID-19 Exposure Response Date Recorded In the last month, have you been in contact with No / Unsure 07/16/2021 9:44 AM GRANITE CUTTER someone who was confirmed or suspected to have Coronavirus / COVID-19? documented as of this encounter Plan of Treatment Not on filedocumented as of this encounter Visit Diagnoses Not on filedocumented in this encounter Care Teams Ripshear Operator Relationship Specialty Start Date End Date Elsewhere, Pcp PCP - General 05/20/21 documented as of this encounter
--- OUTSIDE RECORDS SUMMARY | 2022-05-09 10:56 | XMS_ITS | Encounter Summary ---
:1955 Author Organization [employer] Address [address] [address] Phone Care Team Providers Name Role Phone Elsewhere, Pcp Primary Care Provider Unavailable Encounter Details Date Type Department Care Team Description 07/25/2021 Travel Social History Tobacco Use Types Packs/Day [...] at Date Recorded Female 07/15/2021 1:16 PM UROLOGY PHYSICIAN ASSISTANT Job Start Date Occupation Industry Not on file Not on file Not on file COVID-19 Exposure Response Date Recorded In the last month, have you been in contact with No / Unsure 07/25/2021 11:34 AM UROLOGY PHYSICIAN ASSISTANT someone who was confirmed or suspected to have Coronavirus / COVID-19? documented as of this encounter Plan of Treatment Not on filedocumented as of this encounter Visit Diagnoses Not on filedocumented in this encounter Care Teams Market Gardener Relationship Specialty Start Date End Date Elsewhere, Pcp PCP - General 05/20/21 documented as of this encounter
--- OUTSIDE RECORDS SUMMARY | 2022-05-09 10:56 | XMS_ITS | Encounter Summary ---
:1955 Author Organization [employer] Address [address] [address] Phone Care Team Providers Name Role Phone Elsewhere, Pcp Primary Care Provider Unavailable Encounter Details Date Type Department Care Team Description 05/20/2021 Travel Social History Tobacco Use Types Packs/Day Years Used Date Smoking Tobacco: Never Smokeless Tobacco: Never Sex Assigned at Date Recorded Female 07/15/2021 1:16 PM PROJECT ADMIN Job Start Date Occupation Industry Not on file Not on file Not on file COVID-19 Exposure Response Date Recorded In the last month, have you been in contact with No / Unsure 05/20/2021 2:44 PM CDT someone who was confirmed or suspected to have Coronavirus / COVID-19? documented as of this encounter Plan of Treatment Not on filedocumented as of this encounter Visit Diagnoses Not on filedocumented in this encounter Care Teams Pickle Cutter Relationship Specialty Start Date End Date Elsewhere, Pcp PCP - General 05/20/21 documented as of this encounter
--- OUTSIDE RECORDS SUMMARY | 2022-05-09 10:56 | XMS_ITS | Encounter Summary ---
:1955 Author Organization [facility] Address [address] [address] Phone Care Team Providers Name Role Phone Elsewhere, Pcp Primary Care Provider Unavailable Reason for Visit Reason Comments Headache- New Onset Or New Symptoms Encounter Details Date Type Department Care Team Description 07/29/2021 Emergency [facility] EMERGENCY A, PA-C headache, unspecified DEPARTMENT 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 documented as of this encounter Last Filed Vital Signs Vital Sign Reading Time Taken Comments Blood Pressure 128/74 07/29/2021 7:51 PM HEALTH SCIENCES DEPARTMENT CHAIR Pulse 60 07/29/2021 7:51 PM HEALTH SCIENCES DEPARTMENT CHAIR Temperature - - Respiratory Rate 18 07/29/2021 5:03 PM HEALTH SCIENCES DEPARTMENT CHAIR Oxygen Saturation 95% 07/29/2021 7:51 PM HEALTH SCIENCES DEPARTMENT CHAIR Inhaled Oxygen Concentration - - Weight - - Height - - Body Mass Index - - documented in this encounter Discharge Instructions Discharge InstructionsAlia Peterson PA-C - 07/29/2021 8:59 PM HEALTH SCIENCES DEPARTMENT CHAIR Reassuring imaging today. Please take ibuprofen if needed for your headache. Follow-up with neurology with information given. TH SCIENCES DEPARTMENT CHAIR AttachmentsThe following attachments cannot be sent through Care Everywhere. Headaches, Self-Care for (Micronesian)documented in this encounter Medications at Time of Discharge [...] Discharge Disposition Disposition Code Departure Means Destination Home and/or Self [facility] documented in this encounter ED Notes Alia Peterson PA-C - 07/29/2021 5:41 PM CST ED PROVIDER NOTE Name: Becki Ridley Date of : 1955 SUBJECTIVE: Chief Complaint: Chief Complaint Patient presents with ??? Headache- New Onset Or New Symptoms History of Present Illness: Becki Ridley is a very pleasant 66 year old female with a past medical history of 2 diabetes, hypothyroidism, elevated LFTs with cirrhosis, hyperlipidemia, gastroparesis who presents for evaluation of headache. Patient reports development of headache 5 days ago when she is decided to start working out to get in shape. She reports that the headache occurred in the frontal region of her head after 2 minutes of exertion and her heart rate elevating. She reports that the headache was a 7 out of 10 at that time. She continued to work out but has headache worsen. After working out she took a nap and the headache went away. She attempted this 2 other occasions and the headache was the same however on the last occasion, 2 days ago she reports that the headache was the worst headache she has ever had and has been persistent since then but mild. She reports she has a residual headache in her forehead and behind her right eye. She has never had headaches like this in the past. She reports that the headache worsens with any exertion. She went to endocrine clinic for follow-up today and they were concerned regarding the headache and consulted neurology who recommended coming to the ED for MRA, MRI and MRV. Patient has history of brain tumors in her family which is making her concerned. She denies any changes in medications, numbness, tingling, focal weakness, chest pain, shortness of breath from her baseline asthma, neck pain or stiffness, injury or trauma, URI symptoms, fever, chills, sweats, photophobia, phonophobia, changes in vision or gait. Review of Systems: HPI MEDICAL, SOCIAL, FAMILY HISTORY: I reviewed with patient past medical history, social history, surgical history and family history aslisted below. Active Ambulatory Problems Diagnosis Date Noted ??? 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 Hypothyroidism, unspecified type 05/20/2021 ??? Elevated liver enzymes 05/27/2021 ??? Hyperlipemia 05/27/2021 ??? Gastroparesis 07/12/2021 ??? Acute intractable headache, unspecified headache type 07/29/2021 Resolved Ambulatory Problems Diagnosis Date Noted ??? No Resolved Ambulatory Problems Past Medical History: Diagnosis Date ??? Diabetes (HCC) ??? Carmen's disease ??? Hypothyroid ??? Liver disease ??? Lung disease ??? PCOS (polycystic ovarian syndrome) ??? Urticaria Past Medical History: Diagnosis Date ??? Diabetes (HCC) ??? Carmen's disease ??? Hypothyroid ??? Liver disease ??? Lung disease ??? PCOS (polycystic ovarian syndrome) ??? Urticaria Past Surgical History: Procedure Laterality Date ??? BLEPHAROPLASTY Prior to Admission Medications Prescriptions Last Dose Informant Patient Reported? Taking? Continuous Blood Gluc Sensor (FreeStyle Miriam 2 Sensor) Misc No No Si Each by Does not apply route every 14 days. Continuous Blood Gluc Sensor (FreeStyle Miriam 2 Sensor) Misc Yes No Sig: FreeStyle Miriam 2 Sensor kit EPINEPHrine, auto-injector, 0.3 MG/0.3ML Solution Auto-injector injection Yes No Sig: Inject 0.3 mg into the muscle. Potassium Gluconate 2.5 MEQ Tablet Yes No Sig: Take by mouth. albuterol HFA (Proair HFA, Ventolin HFA) 108 (90 Base) MCG/ACT inhalation aerosol Yes No Sig: Inhale 2 Puffs into the lungs every six hours as needed. busPIRone (Buspar) 10 MG tablet Yes No Sig: Take 10 mg by mouth one time a day. cetirizine (ZyrTEC) 10 MG tablet Yes No Sig: Take 10 mg by mouth. dapagliflozin (Farxiga) 10 MG Tablet Yes No Sig: Take 1 Tablet by mouth one time a day. dapagliflozin (Farxiga) 10 MG Tablet No No Sig: Take 1 Tablet by mouth one time a day. diclofenac (Voltaren) 1 % Gel Yes No Sig: Place 4 g onto the skin four times a day as needed. ipratropium-albuterol (DUO-NEB) 0.5-2.5 (3) MG/3ML Solution Yes No Sig: Inhale 3 mL into the lungs as needed. lancets, Accu-Chek Multiclix, (Accu-Chek Multiclix) Yes No levocetirizine (Xyzal) 5 MG tablet Yes No Sig: Take 1 Tablet by mouth one time a day as needed. levothyroxine (Synthroid) 100 MCG tablet Yes No Sig: Take 1 Tablet by mouth one time a day. predniSONE (Deltasone) 20 MG tablet Yes No Sig: Once daily as needed rosuvastatin (Crestor) 10 MG tablet No No Sig: Take 1 Tablet by mouth one time a day. vitamin D3, cholecalciferol, 25 mcg (1000 units) tablet Yes No Sig: Take 1,000 Units by mouth one time a day. Facility-Administered Medications: None Allergies/Sensitivities: Allergies Allergen Reactions ??? Ciprofloxacin Other Trouble breathing ??? Codeine Other Trouble breathing ??? Darvocet [Propoxyphene N-Apap] Other Trouble breathing ??? Pioglitazone Other [place] sick [place] sick ??? Vicodin [Hydrocodone-Acetaminophen] Other Breathing trouble Primary Care Provider: Pcp Elsewhere Code Status: No Order OBJECTIVE: Vital Signs: Blood pressure 128/74, pulse 60, resp. rate 18, SpO2 95 %. Physical Exam: Vital signs: As documented General: Well nourished, alert and cooperative. No acute distress. Skin: Warm and dry. No lesions. No pallor or cyanosis. Head: Normocephalic. No scalp tenderness. Neck: Supple, without masses, lymphadenopathy or tenderness. Eyes: PERRLA, full EOM. External exam normal. Ears: Normal pinnae, canals, and TM's bilaterally. Nose: Patent, without deformity. Throat: Moist mucous membranes without lesions, erythema, or exudate. Uvula midline. Respiratory: No respiratory distress. Normal respiratory effort. Lungs are clear with good breath sounds. No Wheezing or crackles. No respiratory distress. Chest: Regular rate and rhythm. No murmurs. Abdomen: BS normal. Soft and nontender without guarding rebound or masses. Back: Non-tender Extremities: Full ROM without limitation. No deformity or edema. NEURO: CN 2-12 intact. PERRLA. EOMI. Strength and sensation intact in all extremities. Motor function intact. Finger to nose normal. Romberg negative. Gait normal. Psych: Appropriate affect. Answers question appropriately. Data: All laboratory data, imaging, and EKGs were interpreted independently. Labs Reviewed BASIC METABOLIC PANEL - Abnormal; Notable for the following components: Result Value Glucose 140 (*) All other components within normal limits HEMOGRAM/DIFFERENTIAL - Normal THYROID STIMULATING HORMONE - Normal Imaging Results MR BRAIN WO CONTRAST (Final result) Result time 07/29/21 20:16:45 Final result by Alexy Lorenz MD (07/29/21 20:16:45) Narrative: For Patients: As a result of the Century Cures Act, medical imaging exams and procedure reports are released immediately into your electronic medical record. You may view this report before your referring provider. If you have questions, please contact your health care provider. Indication: Headache Technique: Noncontrast sagittal T1 weighted, axial FLAIR, axial T2 weighted, axial SWI, and axial diffusion weighted sequences are provided. Comparison: No prior studies available for comparison at this institution. Findings: The ventricles, sulci and gyri are normal size, shape and contour for age. Mild scattered foci of T2 prolongation in the subcortical white matter of both cerebral hemispheres. The midline structures are centrally located with no evidence of shift. There are no suspicious intra or extra-axial fluid collections. No region of restricted diffusion. Expected flow voids in the cavernous carotids and basilar artery. Impression: 1. No evidence of acute intracranial abnormality. 2. Mild chronic microangiopathic white matter changes. Dictated by Alexy Lorenz MD @ 07/29/2021 8:16:45 PM Electronically Signed MRA HEAD VENOGRAM WO CONTRAST (Final result) Result time 07/29/21 20:20:21 Final result by Alexy Lorenz MD (07/29/21 20:20:21) Narrative: For Patients: As a result of the Cures Act, medical imaging exams and procedure reports are released immediately into your electronic medical record. You may view this report before your referring provider. If you have questions, please contact your health care provider. Indication: Headache Technique: 3D [id number] MR angiogram of the ayocsw-pi-Egaeuw with 3-dimensional MIP projections were submitted. Comparison: No prior studies available for comparison at this institution. Findings: The visualized first and second order intracranial vessels are unremarkable. No occlusion/filling defect or acquired arterial stenosis identified. No aneurysm or vascular malformation seen. Impression: No evidence of proximal arterial occlusion, aneurysm, dissection, or vascular malformation. Dictated by Alexy Lorenz MD @ 07/29/2021 8:20:21 PM Electronically Signed MR ANGIO HEAD WO CONTRAST (Final result) Result time 07/29/21 20:23:44 Final result by Alexy Lorenz MD (07/29/21 20:23:44) Narrative: For Patients: As a result of the Cures Act, medical imaging exams and procedure reports are released immediately into your electronic medical record. You may view this report before your referring provider. If you have questions, please contact your health care provider. Indication: Headache Technique: [id number] MRV of the head with 3D MIP reconstructions are provided. Comparison: No prior studies available for comparison at this institution. Findings: There is flow within the superior sagittal sinus, internal cerebral veins, straight sinus, transverse sinuses and proximal internal jugular veins. The superior sagittal sinus preferentially drains into the right transverse sinus and the straight sinus preferentially drains into the left transverse sinus. No convincing evidence of suspicious filling defects seen within the visualized major dural venous sinuses. Impression: Unremarkable MRV of the head as far as visualized. Dictated by Alexy Lorenz MD @ 07/29/2021 8:23:44 PM Electronically Signed Procedure: Procedures Differential diagnosis includes migraine, tension headache, occipital neuralgia, myofascial pain, meningitis, tumor/mass, viral syndrome, sinusitis, acute stress reaction, intracranial hemorrhage, subdural hemorrhage, stroke. ED COURSE, MEDICAL DECISION MAKING: Patient presents with headache intermittent for 5 days worse with duration. Her symptoms are relatively well controlled at this time and she is not take any medications at home for this. Her aligner who is seeing her this afternoon spoke with neurology who recommended going to the ED for imaging. This imaging was performed and negative for any acute pathology. Headache is not acute in onset and also has resolved since onset making other etiologies less likely. Reassuring MRIs today. She willfollow-up with neurology. I discussed findings today, treatment plan and discharge instructions with patient. Questions were answered to the best of my ability. Patient understands to return the emergency room if symptoms worsen acutely or any new concerning symptoms develop. Patient verbalized their understanding of and agreement with this plan. Final Clinical Impression: (R51.9) Acute nonintractable headache, unspecified headache type (primary encounter diagnosis) Alia Peterson PA-C 07/29/21 8:58 PM Alia Peterson PA-C 07/30/21 0032 TH SCIENCES DEPARTMENT CHAIR Dara Lacey RN - 07/29/2021 4:58 PM CST Pt presents to the ER from the clinic with complaints of the worst headache of her life. Pt states it started about a week ago when she started exercising. Had a 7/10 frontal headache first day then went up to 9/10 the next day when she resumed exercising. Pt has a history of brain tumors in the family. Clinic neurologist is recommending MRI imaging. TH SCIENCES DEPARTMENT CHAIR documented in this encounter Plan of Treatment Not on filedocumented as of this encounter Procedures Procedure Name Priority Date/Time Associated Comments Diagnosis MR BRAIN WO CONTRAST STAT 07/29/2021 7:17 PM R esults for this HEALTH SCIENCES DEPARTMENT CHAIR procedure are i n the results section. MRA HEAD VENOGRAM WO STAT 07/29/2021 7:17 PM R esults for this CONTRAST HEALTH SCIENCES DEPARTMENT CHAIR procedure are i n the results section. MR ANGIO HEAD WO STAT 07/29/2021 7:16 PM Resul ts for this CONTRAST HEALTH SCIENCES DEPARTMENT CHAIR procedure are i n the results section. BASIC METABOLIC PANEL TONIA 07/29/2021 6:54 PM Results for this HEALTH SCIENCES DEPARTMENT CHAIR procedure are i n the results section. HEMOGRAM/DIFF TONIA 07/29/2021 6:12 PM Results for this HEALTH SCIENCES DEPARTMENT CHAIR procedure are i n the results section. THYROID STIMULATING TONIA 07/29/2021 6:12 PM Re sults for this HORMONE HEALTH SCIENCES DEPARTMENT CHAIR procedure are i n the results section. documented in this encounter Results MR BRAIN WO CONTRAST (07/29/2021 7:17 PM HEALTH SCIENCES DEPARTMENT CHAIR) Anatomical Region Laterality Modality Head Magnetic Resonance Specimen (Source) Anatomical Collection Method Collection Time Re ceived Time Location / / Volume Laterality 07/29/2021 7:37 PM HEALTH SCIENCES DEPARTMENT CHAIR Narrative 07/29/2021 8:16 PM HEALTH SCIENCES DEPARTMENT CHAIR For Patients: ??As a result of the Cures Act, medical imaging exams and procedure reports are released immed iately into your electronic medical record. ??You may view this report befor e your referring provider. ??If you have questions, please contact your health ca re provider. Indication: Headache Technique: Noncontrast sagittal T1 weighted, axial FLAIR, axial T2 weighted, axial SWI, and axial diffusion weighted sequences are p rovided. Comparison: No prior studies available for compariso n at this institution. Findings: The ventricles, sulci and gyri are fely l size, shape and contour for age. Mild scattered foci of T2 prolongation in the subcortical white matter of both cerebral hemispheres. The midline struct ures are centrally located with no evidence of shift. ??There are no suspic ious intra or extra-axial fluid collections. ??No region of restricted d iffusion. ??Expected flow voids in the cavernous carotids and basilar artery. Impression: 1. No evidence of acute intracranial abn ormality. 2. Mild chronic microangiopathic white m atter changes. Dictated by Alexy Lorenz MD @ 07/29/2021 8:16:45 PM Electronically Signed Procedure Note Alexy Lorenz MD - 07/29/2021Formatti ng of this note might be different from the original. For Patients: As a result of the nt Cures Act, medical imaging exams and procedure reports are released immed iately into your electronic medical record. You may view this report before your referring provider. If you have questions, please contact your health ca re provider. Indication: Headache Technique: Noncontrast sagittal T1 weighted, axial FLAIR, axial T2 weighted, axial SWI, and axial diffusion weighted sequences are p rovided. Comparison: No prior studies available for compariso n at this institution. Findings: The ventricles, sulci and gyri are fely l size, shape and contour for age. Mild scattered foci of T2 prolongation in the subcortical white matter of both cerebral hemispheres. The midline struct ures are centrally located with no evidence of shift. There are no suspicio us intra or extra-axial fluid collections. No region of restricted dif fusion. Expected flow voids in the cavernous carotids and basilar artery. Impression: 1. No evidence of acute intracranial abn ormality. 2. Mild chronic microangiopathic white m atter changes. Dictated by Alexy Lorenz MD @ 07/29/2021 8:16:45 PM Electronically Signed Alia Peterson PA-C EC MRI ORDERABLES MRA HEAD VENOGRAM WO CONTRAST (07/29/2021 7:17 PM HEALTH SCIENCES DEPARTMENT CHAIR) Anatomical Region Laterality Modality Head, Brain Magnetic Resonance Specimen (Source) Anatomical Collection Method Collection Time Re ceived Time Location / / Volume Laterality 07/29/2021 7:37 PM HEALTH SCIENCES DEPARTMENT CHAIR Narrative 07/29/2021 8:20 PM HEALTH SCIENCES DEPARTMENT CHAIR For Patients: ??As a result of the Cures Act, medical imaging exams and procedure reports are released immed iately into your electronic medical record. ??You may view this report befor e your referring provider. ??If you have questions, please contact your health ca re provider. Indication: Headache Technique: 3D [id number]-cv-[id number] MR angiogram of the ci xezg-zl-Prrnot with 3-dimensional MIP projections were submitted. Comparison: No prior studies available for compariso n at this institution. Findings: The visualized first and second order in tracranial vessels are unremarkable. No occlusion/filling defect or acquired art erial stenosis identified. No aneurysm or vascular malformation seen. Impression: No evidence of proximal arterial occlusi on, aneurysm, dissection, or vascular malformation. Dictated by Alexy Lorenz MD @ 07/29/2021 8:20:21 PM Electronically Signed Procedure Note Alexy Lorenz MD - 07/29/2021Formatti ng of this note might be different from the original. For Patients: As a result of the Cures Act, medical imaging exams and procedure reports are released immed iately into your electronic medical record. You may view this report before your referring provider. If you have questions, please contact your health ca re provider. Indication: Headache Technique: 3D [id number] MR angiogram of the ci axmr-ej-Cicema with 3-dimensional MIP projections were submitted. Comparison: No prior studies available for compariso n at this institution. Findings: The visualized first and second order in tracranial vessels are unremarkable. No occlusion/filling defect or acquired art erial stenosis identified. No aneurysm or vascular malformation seen. Impression: No evidence of proximal arterial occlusi on, aneurysm, dissection, or vascular malformation. Dictated by Alexy Lorenz MD @ 07/29/2021 8:20:21 PM Electronically Signed Alia Peterson PA-C EC MRI ORDERABLES MR ANGIO HEAD WO CONTRAST (07/29/2021 7:16 PM HEALTH SCIENCES DEPARTMENT CHAIR) Anatomical Region Laterality Modality Head Magnetic Resonance Specimen (Source) Anatomical Collection Method Collection Time Re ceived Time Location / / Volume Laterality 07/29/2021 7:37 PM HEALTH SCIENCES DEPARTMENT CHAIR Narrative 07/29/2021 8:23 PM HEALTH SCIENCES DEPARTMENT CHAIR For Patients: ??As a result of the Cures Act, medical imaging exams and procedure reports are released immed iately into your electronic medical record. ??You may view this report befor e your referring provider. ??If you have questions, please contact your health ca re provider. Indication: Headache Technique: [id number] MRV of the head with 3D M IP reconstructions are provided. Comparison: No prior studies available for compariso n at this institution. Findings: There is flow within the superior sagitt al sinus, internal cerebral veins, straight sinus, transverse sinuses and p roximal internal jugular veins. The superior sagittal sinus preferentially d rains into the right transverse sinus and the straight sinus preferentially dr ains into the left transverse sinus. No convincing evidence of suspicious fillin g defects seen within the visualized major dural venous sinuses. Impression: Unremarkable MRV of the head as far as v isualized. Dictated by Alexy Lorenz MD @ 07/29/2021 8:23:44 PM Electronically Signed Procedure Note Alexy Lorenz MD - 07/29/2021Formatti ng of this note might be different from the original. For Patients: As a result of the Cures Act, medical imaging exams and procedure reports are released immed iately into your electronic medical record. You may view this report before your referring provider. If you have questions, please contact your health ca re provider. Indication: Headache Technique: [id number] MRV of the head with 3D M IP reconstructions are provided. Comparison: No prior studies available for compariso n at this institution. Findings: There is flow within the superior sagitt al sinus, internal cerebral veins, straight sinus, transverse sinuses and p roximal internal jugular veins. The superior sagittal sinus preferentially d rains into the right transverse sinus and the straight sinus preferentially dr ains into the left transverse sinus. No convincing evidence of suspicious fillin g defects seen within the visualized major dural venous sinuses. Impression: Unremarkable MRV of the head as far as v isualized. Dictated by Alexy Lorenz MD @ 07/29/2021 8:23:44 PM Electronically Signed Alia Peterson PA-C EC MRI ORDERABLES (ABNORMAL) BASIC METABOLIC PANEL (07/29/2021 6:54 PM HEALTH SCIENCES DEPARTMENT CHAIR) Analysis Performed At [facility] Time Signature Sodium 141 136 - 145 07/29/2021 [facility] mmol/L 7:24 PM [facility] Potassium 4.0 3.5 - 5.1 07/29/2021 [place] mmol/L 7:24 PM [facility] Chloride 105 98 - 107 07/29/2021 [place] mmol/L 7:24 PM [facility] Carbon Dioxide 30 21 - 32 07/29/2021 [facility] mmol/L 7:24 PM [facility] Calcium 9.0 8.5 - 10.1 07/29/2021 [facility] mg/dL 7:24 PM [facility] Glucose 140 (H) 74 - 100 07/29/2021 [facility] mg/dL 7:24 PM [facility] Blood Urea 9 7 - 18 07/29/2021 [facility] nitrogen mg/dL 7:24 PM [facility] Creatinine 0.67 0.51 - 07/29/2021 [facility] 0.95 mg/dL 7:24 PM [facility] Glomerular >60 >=60 07/29/2021 [facility] Filtration Rate mL/min/1.7 7:[address] LABORATORY Anion Gap 6.2 5 - 15 07/29/2021 [facility] mmol/L 7:24 PM HEALTH SCIENCES DEPARTMENT CHAIR [facility] Specimen Anatomical Collection Method / Collection Time Recei bobbi Time (Source) Location / Volume Laterality Blood BLOOD SPECIMEN / Venipuncture / 07/29/2021 6:54 2021 6:59 Unknown Unknown PM HEALTH SCIENCES DEPARTMENT CHAIR PM HEALTH SCIENCES DEPARTMENT CHAIR Alia Kaitlynn Nicholas PA-C EC CHEMISTRY ORDERABLES Performing Organization Address City/[facility]/ZIP [facility] Phon e Number [id number] [facility] [address], [place] [address] LABORATORY THYROID STIMULATING HORMONE (07/29/2021 6:12 PM [facility]) P athologist Signature Thyroid 1.532 0.350 - 07/29/2021 [place] Stimulating 3.740 6:47 PM [facility] UIU/mL [facility] LABORATORY Specimen Anatomical Collection Method / Collection Time Recei bobbi Time (Source) Location / Volume Laterality Blood BLOOD SPECIMEN / Venipuncture / 07/29/2021 6:12 2021 6:18 Unknown Unknown PM [facility] PM [facility] Alia Peterson PA-C EC CHEMISTRY ORDERABLES ABN Performing Organization Address City/[facility]/ZIP [facility] Phon e Number [address] [address] LABORATORY HEMOGRAM/DIFFERENTIAL (07/29/2021 6:12 PM [facility]PART[facility] CHAIR) Analysis Performed At Patho logist Time Signature WBC 7.2 4.0 - 11.0 07/29/2021 [place] X10*3u/L 6:24 PM [facility] LABORATORY RBC 5.00 3.80 - 07/29/2021 [place] 5.20 6:24 PM [facility] X10*6/uL [facility] LABORAT[facility] HGB 14.3 12.0 - 07/29/2021 [place] 16.0 g/dl 6:24 PM [facility] LABORATORY HCT 42.1 35.0 - 07/29/2021 [place] 47.0 % 6:24 PM [facility] LABORATORY MCV 84.2 80 - 98 fL 07/29/2021 [place] 6:24 PM [facility] LABORATORY MCH 28.6 27.0 - 07/29/2021 [place] 34.0 pg 6:24 PM [facility] LABORATORY MCHC 34.0 32 - 36 07/29/2021 [place] g/dl 6:24 PM [facility] LABORATORY PLT 205 150 - 420 07/29/2021 [place] X10*3/uL 6:24 PM [facility] LABORATORY Neutrophils 2.86 2.10 - 07/29/2021 [place] Absolute 7.50 6:24 PM [facility] x10*3u/L [facility] LAB[facility] Lymphocytes 3.72 0.75 - 07/29/2021 [place] Absolute 4.00 6:24 PM [facility] x10*3u/L [facility] Monocytes 0.44 0.00 - 07/29/2021 [place] Absolute 0.90 6:24 PM [facility] x10*3u/L [facility] LAB[facility] Eosinophils 0.14 0.04 - 07/29/2021 [place] Absolute 0.54 6:24 PM [facility] x10*3u/L [facility] LAB[facility] Basophils 0.03 0.00 - 07/29/2021 [place] Absolute 0.20 6:24 PM [facility] x10*3u/L [facility] LAB[facility] RDW-SD 42.3 36.5 - 07/29/2021 [place] 46.3 fL 6:24 PM [facility] LABORATORY RDW-CV 13.7 11.6 - 07/29/2021 [place] 14.4 % 6:24 PM [facility] LABORATORY Immature 0.02 0.00 - 07/29/2021 [place] Granulocytes 0.10 6:24 PM [facility] Absolute X10*3/uL [facility] Nucleated RBCs 0.00 0.00 - 07/29/2021 [place] Absolute 0.00 6:24 PM [facility] x10*3/uL [facility] LAB[facility] Specimen Anatomical Collection Method / Collection Time Recei bobbi Time (Source) Location / Volume Laterality Blood BLOOD SPECIMEN / Venipuncture / 07/29/2021 6:12 2021 6:18 Unknown Unknown PM [facility] CHAIR PM [facility] DE[facility] CHAIR Alia Peterson PA-C EC HEMATOLOGY ORDERABLES Performing Organization Address City/State/ZIP Code Phon e Number [facility] [address] [id number] LABORATORY documented in this encounter Visit Diagnoses Diagnosis Acute nonintractable headache, unspecifi ed headache type - Primary documented in this encounter Care Teams Spot Machine Operator Relationship Specialty Start Date End Date Elsewhere, Pcp PCP - General 05/20/21 documented as of this encounter
--- OUTSIDE RECORDS SUMMARY | 2022-05-09 10:56 | XMS_ITS | Encounter Summary ---
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) Hypothyroidism, unspecified type Anju Garcia APRN, CNP [address] [facility] [address] [place] [address] Referral ID Status Reason Start Date Expiration Date Visits Requ ested Visits Authorized [id number] Closed 05/11/2021 05/11/2022 1 1 Encounter Details Date Type Department Care Team Description 05/20/2021 [facility] Diabete s type 2, no ocular involvement (HCC) (Primary Dx); [facility] Hypothyroidism, unspecified type ENDOCRINOLOGY [address] [place] [address] [place] [address] [phone] Social History Tobacco Use Types Packs/Day Years Used Date Smoking Tobacco: Never Smokeless Tobacco: Never Sex Assigned at Date Recorded Female 07/15/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 Start Date Occupation Industry Not [...] Sign Reading Time Taken Comments Blood Pressure 138/72 05/20/2021 3:36 PM CDT Pulse 92 05/20/2021 3:36 PM CDT Temperature - - Respiratory Rate - - Oxygen Saturation - - Inhaled Oxygen Concentration - - Weight 94.8 kg (209 lb) 05/20/2021 3:36 PM CDT Height 160 cm (5' 3) 05/20/2021 3:36 PM CDT Body Mass Index 37.02 05/20/2021 3:36 PM CDT documented in this encounter Patient Instructions Patient InstructionsMaurer, Anju Raymond APRN, TELEPHONE COIN BOX COLLECTOR - 05/20/2021 2:30 PM CDT Problem List Items Addressed This Visit Endocrine/Metabolic Diabetes type 2, 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 A1C test gives a picture of the average glucose control in the past three months. We will continue to work together to control blood sugars and maintain an A1c of less than 8% to prevent diabetes complications. Please continue the following medications : Glipizide 10 mg twice daily Today, we will : 1.) Check labs 2.) Place CGM today 3.) Follow-up in 1 week to discuss options as below : Metformin - pending liver function / approval from your liver specialist SGLT-2 (Invokana, Jardiance, Farxiga) GLP-1 (Trulicity, Bydureon, Victoza, Ozempic, Rybelsus) DPP-4 (Januvia, Tradjenta) Pioglitazone - pending approval from Urology as your sister has history of bladder cancer Insulin High Blood Sugars : 1.) Check sugars [...] prevent low blood sugars Please follow-up in 1-2 weeks and or sooner if any concerns. Relevant Orders HEMOGLOBIN A1C (Completed) LIPID PANEL (Completed) MICROALBUMIN, RANDOM URINE (Completed) COMPREHENSIVE METABOLIC PANEL (Completed) Hypothyroidism, unspecified type Please Increase your Levothyroxine to 100 mcg daily Please take this medicine on an empty stomach, 30 minutes before eating without any other medications. Please try to take the medicine at the same time each day. It may take several weeks before your body starts to respond to this medication. We will plan to recheck your thyroid labs today We will order thyroid US We will continue to monitor your thyroid labs and make changes to your thyroid medication dose as needed to optimize your treatment. Relevant Orders THYROID STIMULATING HORMONE (Completed) T4, FREE (Completed) T3, TOTAL (Completed) THYROPEROXIDASE AUTOANTIBODIES US SOFT TISSUE NECK THYROID HEAD If your provider has ordered a radiology test that needs to be scheduled at any of the [facility] facilities, for your convenience and to offer you the best service, we ask that you contact the [facility] directly at [phone]. If you have an Ultrasound or DEXA order from [facility], those are performed directly by them. Please call [phone] (Juwan) or [phone] (Jelena) to schedule those tests. documented in this encounter Progress Notes Anju Garcia APRN, CNP - 05/20/2021 2:30 PM CDT [facility] Office Visit Becki Mackey [facility] is a 66 year old female who presents for No chief complaint on file. Subjective No notes on file HPI Becki is here today for the first time, [facility] to discuss asthma / lung disease, diabetes and hypothyroidism Diabetes. She was diagnosed with diabetes in 2014. She has never been hospitalized for diabetes. Diabetes Medications : Glipizide 10 mg twice daily Previous DM Medications include : - Metformin (did not control sugars, ? Liver cirrhosis) - GLP-1 (insurance did not cover, denies side effects) Consider : Rechallenge Metformin : *Only if approved by GI / Hepatology prior. SGLT-2 : Denies kidney disease. She has a distant history of yeast infections GLP-1 : Denies history of medullary thyroid cancer, history GI disease, pancreatitis Pioglitazone : Denies CHF, osteoporosis. Her sister has bladder cancer - she is following up with Urology in June. We will avoid this unless approved by Urology. DPP-4 : Denies history of pancreatitis Insulin Blood sugars / CGM. She checks blood sugars occasionally. Blood sugars have been around 250 mg/dL. Lowest blood sugar 130 mg/d. Highest blood sugar 450 mg/dL. Thyroid History. Becki was diagnosed with thyroid problems in 2016. denies history of radiation to head or neck. denies history of Amiodarone, [place] - history of Prednisone, not within the last [address] scan with IV contrast dye. denies recent upperrespiratory illness. denies recent . Thyroid Meds. She is currently taking Levothyroxine 75 mcg daily. She plans to increase this to 100 mcg daily as per her PCP. She takes her thyroid medication at the same time every day, on an empty stomach without any food, drink or other medications. Thyroid Symptoms. Denies significant hyper or hypothyroid symptoms, with exception of fatigue. She reports difficulty swallowing, compressive symptoms. Thyroid Labs. We will order thyroid labs and TPO antibodies. Thyroid Imaging. We will order thyroid US. She has had esophogram previously. Today, we will : 1.) Check labs 2.) Place CGM today 3.) Follow-up in 1 week to discuss options Diabetes Control and Complications: Glycemic Control We will check this today. No results found for: HGA1C, [id number] Insulin Patient is not taking insulin Insulin start date : N/A B.P. Control We will check this BP Readings from Last 1 Encounters: No data found for BP B.P. Medications None Statin NO She is not taking statin medication at this time - we will check lipid panel and discuss starting statin as appropriate - we will be cautious of her liver history Lipid control We will check this today. No results found for: CHOL No results found for: TRIG No results found for: HDL No results found for: LDLC Renal Status We will check this today. No results found for: ALBCR No results found for: UACR No results found for: CREAT, ISCREAT No results found for: GFR ZARINA / ARB No. Check micro albumin today. Neuropathy Occasionally with elevated sugars Consider Alpha Lipoic Acid 600 mg daily Feet no sores or ulcerative lesions, skin intact and normal sensory exam closely monitor and examinefeet daily Retinopathy No follows regularly with ophthalmology and denies acute eye concerns today Smoking Status non-smoker ASA No denies chest pain, chest pressure or shortness of breath The following portions of the chart were reviewed this encounter and updated as appropriate: Review of Systems Constitutional: Negative. HENT: Negative. [...] Assessment/Plan Click here to update Care Team. 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 A1C test gives a picture of the average glucose control in the past three months. We will continue to work together to control blood sugars and maintain an A1c of less than 8% to prevent diabetes complications. Please continue the following medications : Glipizide 10 mg twice daily Today, we will : 1.) Check labs 2.) Place CGM today 3.) Follow-up in 1 week to discuss options as below : Metformin - pending liver function / approval from your liver specialist SGLT-2 (Invokana, Jardiance, Farxiga) GLP-1 (Trulicity, Bydureon, Victoza, Ozempic, Rybelsus) DPP-4 (Januvia, Tradjenta) Pioglitazone - pending approval from Urology as your sister has history of bladder cancer Insulin High Blood Sugars : 1.) Check sugars [...] prevent low blood sugars Please follow-up in 1-2 weeks and or sooner if any concerns. Relevant Orders HEMOGLOBIN A1C LIPID PANEL MICROALBUMIN, RANDOM URINE COMPREHENSIVE METABOLIC PANEL Hypothyroidism, unspecified type Please Increase your Levothyroxine to 100 mcg daily Please take this medicine on an empty stomach, 30 minutes before eating without any other medications. Please try to take the medicine at the same time each day. It may take several weeks before your body starts to respond to this medication. We will plan to recheck your thyroid labs today We will order thyroid US We will continue to monitor your thyroid labs and make changes to your thyroid medication dose as needed to optimize your treatment. Relevant Orders THYROID STIMULATING HORMONE T4, FREE T3, TOTAL THYROPEROXIDASE AUTOANTIBODIES Followup Plans: No follow-ups on file. [facility] [id number] no No notes on file Ishan Ulloa CMA - 05/20/2021 2:30 PM CDT Free sample Freestyle Miriam 2 placed on patient's left arm today. Lot [id number] Exp 06/15/2021. Patient gave verbal consent and tolerated procedure well. documented in this encounter Miscellaneous Notes Assessment & Plan Note - Anju Garcia APRN, CNP - 05/20/2021 3:30 PM CDT Associated Problem(s): Hypothyroidism, unspecified type Please Increase your Levothyroxine to 100 mcg daily Please take this medicine on an empty stomach, 30 minutes before eating without any other medications. Please try to take the medicine at the same time each day. It may take several weeks before your body starts to respond to this medication. We will plan to recheck your thyroid labs today We will order thyroid US We will continue to monitor your thyroid labs and make changes to your thyroid medication dose as needed to optimize your treatment. 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 A1C test gives a picture of the average glucose control in the past three months. We will continue to work together to control blood sugars and maintain an A1c of less than 8% to prevent diabetes complications. Please continue the following medications : Glipizide 10 mg twice daily Today, we will : 1.) Check labs 2.) Place CGM today 3.) Follow-up in 1 week to discuss options as below : Metformin - pending liver function / approval from your liver specialist SGLT-2 (Invokana, Jardiance, Farxiga) GLP-1 (Trulicity, Bydureon, Victoza, Ozempic, Rybelsus) DPP-4 (Januvia, Tradjenta) Pioglitazone - pending approval from Urology as your sister has history of bladder cancer Insulin High Blood Sugars : 1.) Check sugars [...] prevent low blood sugars Please follow-up in 1-2 weeks and or sooner if any concerns. documented in this encounter Plan of Treatment Not on filedocumented as of this encounter Procedures Procedure Name Priority Date/Time Associated Comments Diagnosis MICROALBUMIN/CREATININE Routine 05/20/2021 4:16 Diabetes type 2, no Results for this RATIO, URINE PM CDT ocular involvement procedure are in ([facility]) the results section. COMPREHENSIVE METABOLIC Routine 05/20/2021 4:08 Diabetes type 2, no Results for this PANEL PM CDT ocular involvement procedure are in (HCC) the results section. THYROPEROXIDASE Routine 05/20/2021 4:08 Hypothyroidism, Result s for this AUTOANTIBODIES PM CDT unspecified type procedure are in the results section. T4, FREE Routine 05/20/2021 4:08 Hypothyroidism, Results f or this PM CDT unspecified type procedure a re in the results section. T3, TOTAL Routine 05/20/2021 4:08 Hypothyroidism, Results f or this PM CDT unspecified type procedure a re in the results section. HEMOGLOBIN A1C Routine 05/20/2021 4:08 Diabetes type 2, no Res ults for this PM CDT ocular involvement procedure are in (HCC) the results section. THYROID STIMULATING Routine 05/20/2021 4:08 Hypothyroidism, Re sults for this HORMONE PM CDT unspecified type procedure a re in the results section. LIPID PROFILE Routine 05/20/2021 4:08 Diabetes type 2, no Resu lts for this PM CDT ocular involvement procedure are in (HCC) the results section. documented in this encounter Results US SOFT TISSUE NECK THYROID HEAD (08/12/2021 12:33 PM PANEL SAW OPERATOR) Anatomical Region Laterality Modality Neck Ultrasound Specimen (Source) Anatomical Collection Method Collection Time Re ceived Time Location / / Volume Laterality 08/12/2021 12:14 PM PANEL SAW OPERATOR Narrative 08/12/2021 12:43 PM PANEL SAW OPERATOR US, THYROID COMPARISON: None. FINDINGS: The thyroid [...] Report Date: 08/12/2021 12:14 PM Anju Garcia APRN, CNP EC US ORDERABLES MICROALBUMIN, RANDOM URINE (05/20/2021 4:16 PM CDT) Analysis Performed At Patho logist Time Signature Urine Creatinine, 34.0 29.0 - 05/20/2021 [place] random 226.0 8:30 PM CDT [place] mg/dL [facility] urine <6.0 <=20.0 05/20/2021 [place] Microalbumin mg/L 8:30 PM CDT [facility] Urine 05/20/2021 [place] Microalbumin/Crea 8:30 PM CDT [place] tinine [facility] LABORATORY Comment: MALB/CREAT Urine ratio not calc ulated due to urine microalbumin and/or urine creatinine result(s) are outside of the linearity of the instrument. Specimen Anatomical Collection Method Collection Time Receive d Time (Source) Location / / Volume Laterality Urine VOIDED URINE Non-blood 05/20/2021 4:16 PM 4:16 SPECIMEN / Unknown collection / CDT PM CDT Unknown Anju Garcia APRN, CNP EC URINE ORDERABLES Performing Organization Address City/State/ZIP Code Phon e Number [facility] [address] [address] LABORATORY (ABNORMAL) COMPREHENSIVE METABOLIC PANEL (05/20/2021 4:08 PM CDT) [facility] gist Method Time Signature Sodium 134 (L) 136 - 145 05/20/2021 [place] mmol/L 5:00 PM CDT [facility] Potassium 3.8 3.5 - 5.1 05/20/2021 [place] mmol/L 5:00 PM CDT [facility] Chloride 99 98 - 107 05/20/2021 [place] mmol/L 5:00 PM CDT [facility] Carbon Dioxide 27 21 - 32 05/20/2021 [place] mmol/L 5:00 PM CDT [facility] Calcium 8.9 8.5 - 05/20/2021 [place] 10.1 5:00 PM [facility] mg/dL [facility] Alkaline Phosphatase 82 46 - 116 05/20/2021 [place] W U/L 5:00 PM [facility] Aspartate 91 (H) 15 - 37 05/20/2021 [place] Aminotransferase U/L 5:00 PM [facility] Alanine 123 (H) 14 - 63 05/20/2021 [place] Aminotransferase U/L 5:00 PM [facility] Glucose 264 (H) 74 - 100 05/20/2021 [place] mg/dL 5:00 PM [facility] Blood Urea nitrogen 9 7 - 18 05/20/2021 [place] mg/dL 5:00 PM [facility] Creatinine 0.55 0.51 - 05/20/2021 [place] 0.95 5:00 PM [facility] mg/dL [facility] Protein, Total 7.7 6.4 - 8.2 05/20/2021 [place] g/dL 5:00 PM [facility] Albumin 3.8 3.4 - 5.0 05/20/2021 [place] g/dL 5:00 PM [facility] Bilirubin, Total 0.5 0.2 - 1.0 05/20/2021 [place] mg/dL 5:00 PM [facility] Glomerular >60 >=60 05/20/2021 [place] Filtration Rate mL/min/1. 5:00 PM [facility] 73 m*2 [facility] Globulin 3.9 1.4 - 4.8 05/20/2021 [place] g/dL 5:00 PM [facility] Anion Gap 8 5 - 15 05/20/2021 [place] mmol/L 5:00 PM [facility] Specimen Anatomical Collection Method / Collection Time Recei bobbi Time (Source) Location / Volume Laterality Blood BLOOD SPECIMEN / Venipuncture / 05/20/2021 4:08 2020 4:10 Unknown Unknown PM CDT PM CDT Anju Garcia ART PSYCHOTHERAPIST, TELEPHONE COIN BOX COLLECTOR EC CHEMISTRY ORDERABLES Performing Organization Address City/State/ZIP Code Phon e Number [facility] [address] [place], [place] [address] LABORATORY THYROPEROXIDASE AUTOANTIBODIES (05/20/2021 4:08 PM CDT) [facility] Method Time Signature Thyroperoxidase Ab, 3.3 <9.0 05/22/2021 [facility] S IU/mL 11:45 AM CDT LABORATORIES Comment: Test Performed by: [facility] [address] [place], [place] [address] Locomotive Operator Helper: Denzel Rose M.D. Ph. D.; CLIA# [id number] Specimen Anatomical Collection Method / Collection Time Recei bobbi Time (Source) Location / Volume Laterality Blood BLOOD SPECIMEN / Venipuncture / 05/20/2021 4:08 2020 4:10 Unknown Unknown PM CDT PM CDT Anju Garcia APRN, CNP EC CHEMISTRY ORDERABLES Performing Organization Address City/[facility]/ZIP Code Phon e Number [facility] [address] [place] [phone] T3, TOTAL (05/20/2021 4:08 PM CDT) athologist [facility] T3, TOTAL 136 60 - 181 05/20/2021 [place] ng/dL 6:50 PM CDT [facility] Specimen Anatomical Collection Method / Collection Time Recei bobbi Time (Source) Location / Volume Laterality Blood BLOOD SPECIMEN / Venipuncture / 05/20/2021 4:08 2020 4:10 Unknown Unknown PM CDT PM CDT Anju Garcia APRN, CNP EC LAB SEND OUT ORDERABLES Performing Organization Address City/State/ZIP Code Phon e Number [facility] [address] [place], [place] [address] LABORATORY T4, FREE (05/20/2021 4:08 PM CDT) athologist Signature T4, Free 0.94 0.76 - 1.46 05/20/2021 [place] ng/dL 5:00 PM CDT [facility] Specimen Anatomical Collection Method / Collection Time Recei bobbi Time (Source) Location / Volume Laterality Blood BLOOD SPECIMEN / Venipuncture / 05/20/2021 4:08 2020 4:10 Unknown Unknown PM CDT PM CDT Anju Garcia APRN, CNP EC CHEMISTRY ORDERABLES ABN Performing Organization Address [facility]/[address] [address] LABORATORY (ABNORMAL) THYROID STIMULATING HORMONE (05/20/2021 4:08 PM CDT) [facility] Method Time Signature Thyroid 5.403 (H) 0.350 - 05/20/2021 [place] Stimulating 3.740 5:00 PM CDT [facility] UI[facility]/mL HOSPITAL LABORATORY Specimen Anatomical Collection Method / Collection Time Recei bobbi Time (Source) Location / Volume Laterality Blood BLOOD SPECIMEN / Venipuncture / 05/20/2021 4:08 2020 4:10 Unknown Unknown PM CDT PM CDT Anju Garcia APRN, CNP EC CHEMISTRY ORDERABLES ABN Performing Organization Address [facility]/[address] [address] LABORATORY (ABNORMAL) LIPID PANEL (05/20/2021 4:08 PM CDT) [facility] Method Time Signature Cholesterol 250 (H) 100 - 200 05/20/2021 [place] mg/dL 5:00 PM [facility] Triglycerides 159 (H) 35 - 150 05/20/2021 [place] mg/dL 5:00 PM [facility] HDL Cholesterol 49 45 - 60 05/20/2021 [place] mg/dL 5:00 PM T [facility] LDL Cholesterol, 169 (H) <=129 05/20/2021 [place] Calculated mg/dL 5:00 PM T [place] ([facility]) [facility] Non-HDL 201 (H) <=130 05/20/2021 [place] Cholesterol mg/dL 5:00 PM T [facility] Specimen Anatomical Collection Method / Collection Time Recei bobbi Time (Source) Location / Volume Laterality Blood BLOOD SPECIMEN / Venipuncture / 05/20/2021 4:08 2020 4:10 Unknown Unknown PM CDT PM CDT Narrative [facility] - 05/20/2021 5:00 PM CDT Cholesterol Reference Ranges (Adults >20 years) ??Desirable: ? <200 mg/dL ??Borderline High: 200-239 mg/dL ??High Risk: ? >240 mg/dL Cholesterol Reference Ranges (Children < 20 years) ??Desirable: ? <169 mg/dL ??Borderline High: 170-199 md/dL ??High Risk: ? >200 mg/dL Triglyceride Reference Ranges ??Desirable: ? <150 mg/dL ??Borderline High: 150-199 mg/dL ??High Risk: ? >200 mg/dL NON-HDL Reference Ranges ??Desirable: < ? 130 mg/dL ??Near Desirable: ??130-159 mg/dL ??Borderline High: 160-189 mg/dL ??High Risk: ? 190-219 mg/dL ??Very high Risk: ??>/=220 mg/dL Anju Garcia APRN, TELEPHONE COIN BOX COLLECTOR EC CHEMISTRY ORDERABLES ABN Performing Organization Address City/[facility] Phon e [address] [address] LABORATORY (ABNORMAL) HEMOGLOBIN A1C (05/20/2021 4:08 PM CDT) [facility] gist Method Time Signature Hemoglobin A1C 10.7 (H) 4.8 - 5.6 05/20/2021 [place] TWO % 10:02 PM CDT [facility] Specimen Anatomical Collection Method / Collection Time Recei bobbi Time (Source) Location / Volume Laterality Blood BLOOD SPECIMEN / Venipuncture / 05/20/2021 4:08 2020 4:10 Unknown Unknown PM CDT PM CDT Anju Garcia APRN, TELEPHONE COIN BOX COLLECTOR EC CHEMISTRY ORDERABLES ABN Performing Organization Address [facility] Phon e [facility] [address] [place] [phone] documented in this encounter Visit Diagnoses Diagnosis Diabetes type 2, no ocular involvement ( HCC) - Primary Hypothyroidism, unspecified type Hypothyroidism, unspecified type documented in this encounter Historical Medications This list may reflect changes made after this encounter. Medication Sig Dispensed Refills Start Date End Date predniSONE (Deltasone) 20 Once daily as 0 021 MG tablet needed levothyroxine (Synthroid) Take 1 Tablet by 0 04/17 100 MCG tablet mouth one time a day. levocetirizine (Xyzal) 5 MG Take 1 Tablet by 0 tablet mouth one time a day as needed. glipiZIDE ER (Glucotrol XL) Take 1 Tablet by 0 07/29/2021 10 MG 24 hour tablet mouth 2 (two) times a day. added in this encounter Care Teams Bobj 

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
--- OUTSIDE RECORDS SUMMARY | 2022-05-09 10:56 | XMS_ITS | Encounter Summary ---
:1955 Author Organization [employer] Address [address] [address] Phone Care Team Providers Name Role Phone Elsewhere, Pcp Primary Care Provider Unavailable Reason for Referral Office Visit (Routine) - Closed Specialty Diagnoses / Procedures Referred By Contact Refer red To Contact Gastroenterology Diagnoses Elevated liver enzymes Anju Garcia APRN, CNP [address] [place] [id number] Referral ID Status Reason Start Date Expiration Date Visits Requ ested Visits Authorized [id number] Closed 05/27/2021 05/27/2022 1 1 Comments Appt with Gastroenterology: GI Consult ( NOT for requesting endoscopy procedure) For outside referrals, enter Unknown for Location or Provider if unable to find and enter name and location of desired provi barrera here. 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) (Primary Dx); [facility] Hypothyroidism, unspecified type; ENDOCRINOLOGY [facility] Elevated liver enzymes; [address] [facility] 400 Hyperlipidemia, unspecified hyperlipidem ia type [place], [place] [address] [id number] [place], [place] [phone] (Work) [phone] Social History Tobacco Use Types Packs/Day Years Used Date Smoking Tobacco: Never Smokeless Tobacco: Never Sex Assigned at Date Recorded Female 07/15/2021 1:16 PM [employer] Job Start Date Occupation Industry Not on file Not on file Not on file COVID-19 Exposure Response Date Recorded In the last month, have you been in contact with No / Unsure 05/27/2021 2:08 PM [employer]OL [employer] someone who was confirmed or suspected to have Coronavirus / COVID-19? documented as of this encounter Last Filed Vital Signs Vital Sign Reading Time Taken Comments Blood Pressure 136/64 05/27/2021 2:35 PM [employer] Pulse 80 05/27/2021 2:35 PM [employer] Temperature - - Respiratory Rate - - Oxygen Saturation - - Inhaled Oxygen Concentration - - Weight 95.3 kg (210 lb 2 oz) 05/27/2021 2:35 PM [employer] Height - - Body Mass Index 37.22 05/20/2021 3:36 PM CDT documented in this encounter Patient Instructions Patient InstructionsMaurer, Anju Raymond APRN, CNP - 05/27/2021 3:00 PM CST Problem List Items Addressed This Visit Endocrine/Metabolic [...] mg twice daily Today, we will : Start Trulicity 0.75 mg once weekly You do not have any contraindications to this medication (GI issues, medullary thyroid cancer, history of pancreatitis, history of MEN syndrome) This medication stimulates glucose-dependent insulin secretion. This medication can help with weight loss. Side effects of this medication include : nausea, diarrhea, and GI symptoms. Typically, these side effects are transient and improve with time, however if your symptoms are not tolerable, please stop this medication and contact us. Tips to help prevent side effects include : - Slowly eat smaller, more frequent meals - Eat foods that are light and bland, like Saltine crackers or plain bread - Avoid fried, greasy or sweet foods - Drink clear or ice cold drinks ??? If you have any cost issues, please contact [employer] Please contact GI team to discuss starting Metformin If okay'd, please start Metformin as below : START metformin extended-release 500 mg tablets, increasing by 1 tablet every few days as tolerated: take 1 tablet daily with supper x 3-7 days, take 1 tablet with breakfast , 1 tablet with supper x 3 days take 1 tablets with breakfast, 2 tablet with supper x 3 days take 2 tablets with breakfast, 2 tablets with supper thereafter. If tolerating 2 tablets twice daily, OK to take all 4 extended-release tablets once daily, as this medication should last 24 hours. 3.) Pending appointment with Urology, we will plan to start Farxiga 10 mg once daily. You do not have any contraindications to this medication (significant renal impairment, yeast infection history, history of DKA) This medication increases glucose excretion in your urine. Side effects include : frequent urination, dry mouth, dizziness, lightheadedness, low blood pressureand yeast infections. Please stop this medication and contact us if you have any side effects or concerns. We will plan to check your electrolytes (labs - BMP) in 3-4 weeks after starting this medication. Low Blood Sugars : - IF you have any low blood sugars, please decrease your Glipizde to 1/2 tablet mg twice daily - IF you continue to have low blood sugars, please STOP your Glipizide If you experience low blood sugars (less [...] medication changes to prevent low blood sugars Follow-up in 1 month after starting Trulicity (and Metformin if approved by GI) to discuss starting Farxiga Relevant Orders GLUCOSE MONITOR, ANALYSIS, INTERP AND REPORT (Completed) Hypothyroidism, unspecified type Please continue your increased dose of Levothyroxine to 100 mcg daily Please take this medicine on an empty stomach, 30 minutes before eating without any other medications. Please try to take the medicine at the same time each day. It may take several weeks before your body starts to respond to this medication. We will plan to recheck your thyroid labs in 4-6 weeks Please complete your thyroid US We will continue to monitor your thyroid labs and make changes to your thyroid medication dose as needed to optimize your treatment. Hyperlipemia Lab Results Component Value Date CHOL 250 05/20/2021 Lab Results Component Value Date TRIG 159 05/20/2021 Lab Results Component Value Date HDL 49 05/20/2021 Lab Results Component Value Date LDLC 169 05/20/2021 Our goal LDL is less than 100 mg/dL. Please contact your GI team to see if you can start Rosuvastatin 10 mg We will recheck your fasting lipid panel in 3-6 months Other Elevated liver enzymes Follow-up with GI team *Please ask GI team if they would be okay with starting : - Metformin - Rosuvastatin If your provider has ordered a radiology test that needs to be scheduled at any of the [facility] facilities, for your convenience and to offer you the best service, we ask that you contact the [facility] directly at [phone]. If you have an Ultrasound or DEXA order from [facility], those are performed directly by them. Please call [phone] (iLike) or [phone] (Jelena) to schedule those tests. [employer] documented in this encounter Ordered Prescriptions Prescription Sig Dispensed Refills Start Date End Date Continuous Blood Gluc 1 Device by Does 3 Each 05/27/20 21 06/18/2021 Sensor (FreeStyle Miriam 14 not apply route Day Sensor) Misc every 14 days. dulaglutide (Trulicity) Inject 0.75 mg 2 mL 0 05/27/20 21 07/12/2021 0.75 MG/0.5ML pen under the skin one injection time a week. documented in this encounter Progress Notes Anju Garcia APRN, CNP - 05/27/2021 3:00 PM CST [facility] Office Visit Becki Ridley is a 66 [...] of pancreatitis Insulin Blood sugars / CGM. We downloaded and analyzed her CGM today. Average blood sugar is 265 mg/dL with standard deviation of 18.7%. Her blood sugars are elevated throughout the 24 hour cycle. Her blood sugars are in target range 4% of the time. Thyroid History. Becki was diagnosed with thyroid problems in 2015. denies history of radiation to head or neck. denies history of Amiodarone, [place] - history of Prednisone, not within the last [address] scan with IV contrast dye. denies recent upperrespiratory illness. denies recent . Thyroid Meds. She recently increased her Levothyroxine dose to 100 mcg daily as per her PCP. She is now currently taking Levothyroxine 100 mcg daily. She takes her thyroid medication at the same time every day, on an empty stomach without any food, drink or other medications. We will recheck her labs in 4-6 weeks. Thyroid Symptoms. Denies significant hyper or hypothyroid [...] esophogram previously. Today, we will : 1.) Start Trulicity 0.75 mg once weekly. She does not have any contraindications to this medication (GI issues, medullary thyroid cancer, history of pancreatitis, history of MEN syndrome) 2.) Contact GI team to discuss starting Metformin 3.) Pending appointment with Urology, we will plan to start Farxiga 10 mg once daily. She does not have any contraindications to this medication (significant renal impairment, yeast infection history, history of DKA) 3.) Follow-up in 1 month after starting Trulicity to discuss starting Farxiga Diabetes Control and Complications: Glycemic Control Poor Lab Results Component Value Date HGA1C 10.7 05/20/2021 Insulin Patient is not taking insulin Insulin start date : N/A B.P. Control We will check this BP Readings from Last 1 Encounters: 05/27/21 136/64 B.P. Medications None Statin NO She is not taking statin medication at this time - we will check lipid panel and discuss starting statin as appropriate - we will be cautious of her liver history Lipid control LDL elevated Recommended statin mediation - we will get approval of this from GI. Lab Results Component Value Date CHOL 250 [...] >60 05/20/2021 ZARINA / ARB No. Neuropathy Occasionally with elevated sugars Consider Alpha [...] Assessment/Plan Click here to update Care Team. (Optional):[id number]} Problem List Items Addressed This Visit Endocrine/Metabolic [...] mg twice daily Today, we will : Start Trulicity 0.75 mg once weekly You do not have any contraindications to this medication (GI issues, medullary thyroid cancer, history of pancreatitis, history of MEN syndrome) This medication stimulates glucose-dependent insulin secretion. This medication can help with weight loss. Side effects of this medication include : nausea, diarrhea, and GI symptoms. Typically, these side effects are transient and improve with time, however if your symptoms are not tolerable, please stop this medication and contact us. Tips to help prevent side effects include : - Slowly eat smaller, more frequent meals - Eat foods that are light and bland, like Saltine crackers or plain bread - Avoid fried, greasy or sweet foods - Drink clear or ice cold drinks ??? If you have any cost issues, please contact [employer] Please contact GI team to discuss starting Metformin If okay'd, please start Metformin as below : START metformin extended-release 500 mg tablets, increasing by 1 tablet every few days as tolerated: take 1 tablet daily with supper x 3-7 days, take 1 tablet with breakfast , 1 tablet with supper x 3 days take 1 tablets with breakfast, 2 tablet with supper x 3 days take 2 tablets with breakfast, 2 tablets with supper thereafter. If tolerating 2 tablets twice daily, OK to take all 4 extended-release tablets once daily, as this medication should last 24 hours. 3.) Pending appointment with Urology, we will plan to start Farxiga 10 mg once daily. You do not have any contraindications to this medication (significant renal impairment, yeast infection history, history of DKA) This medication increases glucose excretion in your urine. Side effects include : frequent urination, dry mouth, dizziness, lightheadedness, low blood pressureand yeast infections. Please stop this medication and contact us if you have any side effects or concerns. We will plan to check your electrolytes (labs - BMP) in 3-4 weeks after starting this medication. Low Blood Sugars : - IF you have any low blood sugars, please decrease your Glipizde to 1/2 tablet mg twice daily - IF you continue to have low blood sugars, please STOP your Glipizide If you experience low blood sugars (less [...] medication changes to prevent low blood sugars Follow-up in 1 month after starting Trulicity (and Metformin if approved by GI) to discuss starting Farxiga Relevant Orders GLUCOSE MONITOR, ANALYSIS, INTERP AND REPORT (Completed) Hypothyroidism, unspecified type Please continue your increased dose of Levothyroxine to 100 mcg daily Please take this medicine on an empty stomach, 30 minutes before eating without any other medications. Please try to take the medicine at the same time each day. It may take several weeks before your body starts to respond to this medication. We will plan to recheck your thyroid labs in 4-6 weeks Please complete your thyroid US We will continue to monitor your thyroid labs and make changes to your thyroid medication dose as needed to optimize your treatment. Hyperlipemia Lab Results Component Value Date CHOL 250 05/20/2021 Lab Results Component Value Date TRIG 159 05/20/2021 Lab Results Component Value Date HDL 49 05/20/2021 Lab Results Component Value Date LDLC 169 05/20/2021 Our goal LDL is less than 100 mg/dL. Please contact your GI team to see if you can start Rosuvastatin 10 mg We will recheck your fasting lipid panel in 3-6 months Other Elevated liver enzymes Follow-up with GI team *Please ask GI team if they would be okay with starting : - Metformin - Rosuvastatin Relevant Orders APPT WITH GASTROENTEROLOGY CLINIC [facility] Followup Plans: Return in about 1 month (around 06/26/2021) for Diabetes. CGM [id number] yes No notes on file [employer] documented in this encounter Miscellaneous Notes Assessment & Plan Note - Anju Garcia APRN, CNP - 05/27/2021 3:21 PM [employer] Associated Problem(s): Hyperlipemia Lab Results Component Value Date CHOL 250 05/20/2021 Lab Results Component Value Date TRIG 159 05/20/2021 Lab Results Component Value Date HDL 49 05/20/2021 Lab Results Component Value Date LDLC 169 05/20/2021 Our goal LDL is less than 100 mg/dL. Please contact your GI team to see if you can start Rosuvastatin 10 mg We will recheck your fasting lipid panel in 3-6 months [employer] Assessment & Plan Note - Anju Garcia APRN, CNP - 05/27/2021 3:16 PM [employer] Associated Problem(s): Elevated liver enzymes Follow-up with GI team *Please ask GI team if they would be okay with starting : - Metformin - Rosuvastatin [employer] Assessment & Plan Note - Anju Garcia APRN, CNP - 05/27/2021 3:14 PM [employer] Associated Problem(s): Hypothyroidism, unspecified type Please continue your increased dose of Levothyroxine to 100 mcg daily Please take this medicine on an empty stomach, 30 minutes before eating without any other medications. Please try to take the medicine at the same time each day. It may take several weeks before your body starts to respond to this medication. We will plan to recheck your thyroid labs in 4-6 weeks Please complete your thyroid US We will continue to monitor your thyroid labs and make changes to your thyroid medication dose as needed to optimize your treatment. [employer] Assessment & Plan Note - Anju Garcia APRN, CNP - 05/27/2021 3:12 PM [employer] Associated Problem(s): Diabetes type 2, no ocular [...] mg twice daily Today, we will : Start Trulicity 0.75 mg once weekly You do not have any contraindications to this medication (GI issues, medullary thyroid cancer, history of pancreatitis, history of MEN syndrome) This medication stimulates glucose-dependent insulin secretion. This medication can help with weight loss. Side effects of this medication include : nausea, diarrhea, and GI symptoms. Typically, these side effects are transient and improve with time, however if your symptoms are not tolerable, please stop this medication and contact us. Tips to help prevent side effects include : - Slowly eat smaller, more frequent meals - Eat foods that are light and bland, like Saltine crackers or plain bread - Avoid fried, greasy or sweet foods - Drink clear or ice cold drinks ??? If you have any cost issues, please contact [employer] Please contact GI team to discuss starting Metformin If okay'd, please start Metformin as below : START metformin extended-release 500 mg tablets, increasing by 1 tablet every few days as tolerated: take 1 tablet daily with supper x 3-7 days, take 1 tablet with breakfast , 1 tablet with supper x 3 days take 1 tablets with breakfast, 2 tablet with supper x 3 days take 2 tablets with breakfast, 2 tablets with supper thereafter. If tolerating 2 tablets twice daily, OK to take all 4 extended-release tablets once daily, as this medication should last 24 hours. 3.) Pending appointment with Urology, we will plan to start Farxiga 10 mg once daily. You do not have any contraindications to this medication (significant renal impairment, yeast infection history, history of DKA) This medication increases glucose excretion in your urine. Side effects include : frequent urination, dry mouth, dizziness, lightheadedness, low blood pressureand yeast infections. Please stop this medication and contact us if you have any side effects or concerns. We will plan to check your electrolytes (labs - BMP) in 3-4 weeks after starting this medication. Low Blood Sugars : - IF you have any low blood sugars, please decrease your Glipizde to 1/2 tablet mg twice daily - IF you continue to have low blood sugars, please STOP your Glipizide If you experience low blood sugars (less [...] medication changes to prevent low blood sugars Follow-up in 1 month after starting Trulicity (and Metformin if approved by GI) to discuss starting Farxiga [employer] documented in this encounter Plan of Treatment Scheduled Referrals Name Type Priority Associated Diagnoses Order S chedule APPT WITH GASTROENTEROLOGY REFERRAL Routine Elevated liver Ordered: 05/27/2021 CLINIC CC enzymes documented as of this encounter Procedures Procedure Name Priority Date/Time Associated Diagnosis Comme nts GLUCOSE MONITOR, Routine 05/27/2021 3:01 PM [employer] Diabetes type 2, no ANALYSIS, INTERP AND ocular involvement REPORT (HCC) documented in this encounter Visit Diagnoses Diagnosis Diabetes type 2, no ocular involvement ( HCC) - Primary Hypothyroidism, unspecified type Elevated liver enzymes Nonspecific elevation of levels of trans aminase or lactic acid dehydrogenase (LDH) Hyperlipidemia, unspecified hyperlipidem ia type documented in this encounter Orders Procedures Count Last Ordered Date First Ordered Date GLUCOSE MONITOR, ANALYSIS, INTERP AND 1 05/27/2021 REPORT documented in this encounter Care Teams Ui Lead 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
--- OUTSIDE RECORDS SUMMARY | 2022-05-09 10:56 | XMS_ITS | Encounter Summary ---
:1955 Author Organization [employer] Address [address] [address] Phone Care Team Providers Name Role Phone Unavailable Primary Care Provider Unavailable Reason for Referral Office Visit (Routine) - Closed Specialty Diagnoses / Procedures Referred By Contact Refer red To Contact Endocrinology Diagnoses Diabetes type 2, no ocular involvement (HCC) Hypothyroidism, unspecified type Anju Garcia APRN, CNP [address] [address] Referral ID Status Reason Start Date Expiration Date Visits Requ ested Visits Authorized [id number] Closed 05/11/2021 05/11/2022 1 1 Comments Appt with Endocrinology: Endocrinology C onsult For outside referrals, enter Unknown for Location or Provider if unable to find and enter name and location of desired provi barrera here. Reason for Referral: Type two diabetes n o ocular involvement, hypothyroidism Encounter Details Date Type Department Care Team Description 05/11/2021 Orders Only [facility] Martha Lloyd type 2, no ocular involvement (HCC) (Primary Dx); ENDOCRINOLOGY Hypothyroidism, unspecified type [address] 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 If you have an Ultrasound or DEXA order from [facility], those are performed directly by them. Please call [phone] (Juwan) or [phone] (Jelena) to schedule those tests. documented in this encounter Plan of Treatment Scheduled Referrals Name Type Priority Associated Diagnoses Order S geovannad[facility]addison APPT WITH ENDOCRINOLOGY REFERRAL Routine Diabetes type 2, no Ordered: 05/11/2021 CC ocular involvement (HCC) Hypothyroidism, unspecified type documented as of this encounter Visit Diagnoses Diagnosis Diabetes type 2, no ocular involvement ( HCC) - Primary Hypothyroidism, unspecified type documented in this encounter
--- OUTSIDE RECORDS SUMMARY | 2022-05-09 10:56 | XMS_ITS | Encounter Summary ---
:1955 Author Organization [facility] [facility] Address [address] [address] Phone Care Team Providers Name Role Phone Elsewhere, Pcp Primary Care Provider Unavailable Reason for Referral Procedure (Routine) - Authorized Specialty Diagnoses / Procedures Referred By Contact Refer red To Contact Endoscopy Diagnoses Elevated liver enzymes Shane Farias MD [facility] [address] [facility] [address] [facility] [address] [place] [id number] [place] [phone] Fax: Referral ID Status Reason Start Date Expiration Date Visits V isits Requested Authorized [id number] Authorized 07/12/2021 07/12/2022 1 1 Question Answer Schedule procedure for: Screening Colonoscopy Comments Schedule Endoscopy Procedure: Screening Colonoscopy Reason for test: Screening cor colon can cer rocedure (Routine) - Authorized Specialty Diagnoses / Procedures Referred By Contact Refer red To Contact Endoscopy Diagnoses Elevated liver enzymes Shane Farias MD [facility] [address] [facility] 560 [facility] [address] [place] [phone] [place] [phone] Fax: Referral ID Status Reason Start Date Expiration Date Visits V isits Requested Authorized [id number] Authorized 07/12/2021 07/12/2022 1 1 Question Answer Schedule procedure for: EGD T DIRECTOR Reason for Visit Reason Comments Consult elevated liver enzymes Office Visit (Routine) - Closed Specialty Diagnoses / Procedures Referred By Contact Refer red To Contact Gastroenterology Diagnoses Elevated liver enzymes Anju Garcia, INTERNAL COMMUNICATIONS SPECIALIST, COMMUNICATION [employer]LS [employer] [address] [address] Referral ID Status Reason Start Date Expiration Date Visits Requ ested Visits Authorized [id number] Closed 05/27/2021 05/27/2022 1 1 Encounter Details Date Type Department Care Team Description 07/12/2021 [facility] Shane Gee ed liver enzymes (Primary Dx); SPECIALTY CLINIC MD Kaitlynn Gastroparesis GASTROENTEROLOGY [address] [address] [place] [address] [place], [place] (Work) [phone] [phone] Social History Tobacco Use Types Packs/Day Years [...] at Date Recorded Female 07/15/2021 1:16 PM PLANT DIRECTOR Job Start Date Occupation Industry Not on file Not on file Not on file documented as of this encounter Last Filed Vital Signs Vital Sign Reading Time Taken Comments Blood Pressure - - Pulse - - Temperature - - Respiratory Rate - - Oxygen Saturation - - Inhaled Oxygen Concentration - - Weight 88.5 kg (195 lb) 07/12/2021 8:29 AM PLANT DIRECTOR Height 160 cm (5' 3) 07/12/2021 8:29 AM PLANT DIRECTOR Body Mass Index 34.54 07/12/2021 8:29 AM PLANT DIRECTOR documented in this encounter Patient Instructions Patient InstructionsShane Farias MD - 07/12/2021 8:30 AM CST Problem List Items Addressed This Visit Digestive Gastroparesis Gastroparesis based on gastric emptying study previously. At this time patient Peers to be doing well without any complaints. Gastroparesis diet. Other Elevated liver enzymes - Primary Becki is a 66-year-old woman who was being seen at [facility] and [facility], Was apart of a study, underwent MRA of the liver as well as liver biopsy at [facility] in August 2020 noted to have diffuse hepatic steatosis with increased fat in the liver, and liver stiffness on MRI stage II- III fibrosis. Also had a FibroScan in June 2019 which shows liver fibrosis MetaWare scoreF4. Liver biopsy in August 2020 at [facility] showed acute steatohepatitis ALEX, with patchy septal fibrosis and early nodule formation. Patient has not had a recent endoscopy, last colonoscopy was over 10 years ago, no history of polyps. As such we will proceed with upper endoscopy to evaluate for varices, colonoscopy or screening purposes. Remain Abstinent from ETOH. Endocrinology requesting direction regarding Metformin and statin, okay to proceed with both, monitor LFTs in 4 weeks after starting statin.gastr 2 g sodium diet daily Avoid aspirin and NSAIDs. Can consider acetaminophen (Tylenol) if required but limited to not more than 2 g daily. EGD for variceal surveillance in 1 year.Now. Biannual RUQ sonogram to assess for liver cancer. Now and every 6 months. Hepatitis B surface antibody negative, patient should be vaccinated for hepatitis B. Relevant Orders HEPATIC FUNCTION PANEL SCHEDULE ENDOSCOPY PROCEDURE CC SCHEDULE ENDOSCOPY PROCEDURE CC ROUTINE IN-HOUSE SARS-COV-2 RNA (COVID-19) US ABDOMEN COMPLETE If your provider has ordered a radiology test that needs to be scheduled at any of the [facility] facilities, for your convenience and to offer you the best service, we ask that you contact the [facility] directly at [phone]. If you have an Ultrasound or DEXA order from [facility], those are performed directly by them. Please call [phone] ([place]) or [phone] ([place]) to schedule those tests. T DIRECTOR documented in this encounter Progress Notes Shane Farias MD - 07/12/2021 8:30 AM CST GASTROENTEROLOGY Shane Farias MD A Telehealth visit was performed with the patient using telephone. Verbal consent to participate in this Telehealth visit was obtained and the patient was properly identified. I discussed with the patient the nature of our Telehealth visit; that I would evaluate the patient and recommend diagnostics and treatments based on my assessment; that our sessions were not being recorded and personal health information is protected; and that our team would provide follow-up care in person if/when the patientneeds it. This Telehealth visit was performed with the patient at her home and I (the provider) was at my office. CONSULT Reason for consult: Chief Complaint Patient presents with ??? Consult elevated liver enzymes Referring Provider: Pcp Elsewhere 50 minutes were spent on this patient at this visit obtaining a history, reviewing medical records, developing a treatment plan, counseling and discussing treatment strategy with patient, coordination of care and documentation. HPI: 66-year-old woman with elevated liver enzymes since 2019, has undergone extensive work-up including liver biopsy and MRA and sonogram, and FibroScan. Noted to have increased fat within the liver and hepatic steatosis on MRI, also liver stiffness on MRI and stage II 3 fibrosis. FibroScan in June 2019 showed liver fibrosis MetaWare score F4. Liver biopsy in 12/03/2020 as a part of a study protocol at [facility] showed acute steatohepatitis, Alex, patchy septal fibrosis with early nodule formation. Patient reports feeling fatigued, also noted to be hypothyroid with TSH checked bowels.This is somewhat improved since seeing endocrinology. Family history of Bladder cancer liver cancer lung cancer. No history of colon polyps or colon cancer. Last colonoscopy 10+ years ago. She has been tested for hepatitis a negative, hepatitis B surface antigen negative, hepatitis B surface antibody was negative, does not recollect having received vaccination for same. Hepatitis C negative. Past Medical History: Past Medical History: Diagnosis Date ??? Diabetes (HCC) ??? Carmen's disease ??? Hypothyroid ??? Liver disease ??? Lung disease ??? PCOS (polycystic ovarian syndrome) ??? Urticaria Past Surgical History: Past Surgical History: Procedure Laterality Date ??? BLEPHAROPLASTY Medications: Current Outpatient Medications Medication Sig ??? busPIRone (Buspar) 10 MG tablet buspirone 10 mg tablet ??? Continuous Blood Gluc Sensor (FreeStyle Miriam 2 Sensor) Misc 1 Each by Does not apply route every 14 days. ??? glipiZIDE ER (Glucotrol XL) 10 MG 24 hour tablet Take 1 Tablet by mouth 2 (two) times a day. ??? levocetirizine (Xyzal) 5 MG tablet Take 1 Tablet by mouth one time a day as needed. ??? levothyroxine (Synthroid) 100 MCG tablet Take 1 Tablet by mouth one time a day. ??? predniSONE (Deltasone) 20 MG tablet Once daily as needed No current facility-administered medications for this visit. Allergies: Allergies Allergen Reactions ??? Ciprofloxacin Other Trouble breathing ??? Codeine Other Trouble breathing ??? Drug [Propoxyphene N-Apap] Other Trouble breathing ??? Vicodin [Hydrocodone-Acetaminophen] Other Breathing trouble Family History: Family History Problem Relation Age of Onset ??? Cancer Mother ??? Diabetes Mother ??? Diabetes Father ??? Cancer Sister Social History: Social History Socioeconomic History ??? Marital status: Single Tobacco Use ??? Smoking status: Never Smoker ??? Smokeless tobacco: Never Used Vaping Use ??? Vaping Use: Never used Substance and Sexual Activity ??? Alcohol use: Never Other Topics Concern ??? Caffeine Concern Yes Comment: 1 cup coffee daily Labs: Office Visit on 05/20/2021 Component Date Value Ref Range Status ??? Hemoglobin A1C 05/20/2021 10.7* 4.8 - 5.6 % Final ??? Cholesterol 05/20/2021 250* 100 - 200 mg/dL Final ??? Triglycerides 05/20/2021 159* 35 - 150 mg/dL Final ??? HDL Cholesterol 05/20/2021 49 45 - 60 mg/dL Final ? ? LDL Cholesterol, Calculated (Instr* 05/20/2021 169* <=129 mg/dL Final ? ? Non-HDL Cholesterol 05/20/2021 201* <=130 mg/dL Final ??? Urine Creatinine, random 05/20/2021 34.0 29.0 - 226.0 mg/dL Final ? ? urine Microalbumin 05/20/2021 <6.0 <=20.0 mg/L Final ??? Urine Microalbumin/Creatinine Ratio 05/20/2021 Final ??? Thyroid Stimulating hormone 05/20/2021 5.403* 0.350 - 3.740 UIU/mL Final ??? T4, Free 05/20/2021 0.94 0.76 - 1.46 ng/dL Final ??? T3, TOTAL 05/20/2021 136 60 - 181 ng/dL Final ? ? Thyroperoxidase Ab, S 05/20/2021 3.3 <9.0 IU/mL Final ??? Sodium 05/20/2021 134* 136 - 145 mmol/L Final ??? Potassium 05/20/2021 3.8 3.5 - 5.1 mmol/L Final ??? Chloride 05/20/2021 99 98 - 107 mmol/L Final ??? Carbon Dioxide 05/20/2021 27 21 - 32 mmol/L Final ??? Calcium 05/20/2021 8.9 8.5 - 10.1 mg/dL Final ??? Alkaline Phosphatase 05/20/2021 82 46 - 116 U/L Final ??? Aspartate Aminotransferase 05/20/2021 91* 15 - 37 U/L Final ??? Alanine Aminotransferase 05/20/2021 123* 14 - 63 U/L Final ??? Glucose 05/20/2021 264* 74 - 100 mg/dL Final ??? Blood Urea nitrogen 05/20/2021 9 7 - 18 mg/dL Final ??? Creatinine 05/20/2021 0.55 0.51 - 0.95 mg/dL Final ??? Protein, Total 05/20/2021 7.7 6.4 - 8.2 g/dL Final ??? Albumin 05/20/2021 3.8 3.4 - 5.0 g/dL Final ??? Bilirubin, Total 05/20/2021 0.5 0.2 - 1.0 mg/dL Final ? ? Glomerular Filtration Rate 05/20/2021 >60 >=60 mL/min/1.73 m*2 Final ??? Globulin 05/20/2021 3.9 1.4 - 4.8 g/dL Final ??? Anion Gap 05/20/2021 8 5 - 15 mmol/L Final Imaging: MRA in 2020 showed diffuse hepatic steatosis, fatty liver, liver stiffness on MRI at Stage II 3 fibrosis. FibroScan in June 2019 shows liver fibrosis MetaWare F4. Problem List Items Addressed This Visit Digestive Gastroparesis Gastroparesis based on gastric emptying study previously. At this time patient Peers to be doing well without any complaints. Gastroparesis diet. Other Elevated liver enzymes - Primary Becki is a 66-year-old woman who was being seen at [facility] and [facility], Was apart of a study, underwent MRA of the liver as well as liver biopsy at [facility] in August 2020 noted to have diffuse hepatic steatosis with increased fat in the liver, and liver stiffness on MRI stage II- III fibrosis. Also had a FibroScan in June 2019 which shows liver fibrosis MetaWare scoreF4. Liver biopsy in August 2020 at [facility] showed acute steatohepatitis ALEX, with patchy septal fibrosis and early nodule formation. Patient has not had a recent endoscopy, last colonoscopy was over 10 years ago, no history of polyps. As such we will proceed with upper endoscopy to evaluate for varices, colonoscopy or screening purposes. Remain Abstinent from ETOH. Endocrinology requesting direction regarding Metformin and statin, okay to proceed with both, monitor LFTs in 4 weeks after starting statin.gastr 2 g sodium diet daily Avoid aspirin and NSAIDs. Can consider acetaminophen (Tylenol) if required but limited to not more than 2 g daily. EGD for variceal surveillance in 1 year.Now. Biannual RUQ sonogram to assess for liver cancer. Now and every 6 months. Hepatitis B surface antibody negative, patient should be vaccinated for hepatitis B. Relevant Orders HEPATIC FUNCTION PANEL SCHEDULE ENDOSCOPY PROCEDURE CC SCHEDULE ENDOSCOPY PROCEDURE CC ROUTINE IN-HOUSE SARS-COV-2 RNA (COVID-19) US ABDOMEN COMPLETE Orders placed today: Orders Placed This Encounter Procedures ??? US Abd Complete Standing Status: Future Standing Expiration Date: 07/12/2022 Order Specific Question: Reason for exam: Answer: HCC surveillance ??? Hepatic Function Panel Standing Status: Future Standing Expiration Date: 07/12/2022 ??? Schedule Endoscopy Procedure CC Referral Priority: Routine Referral Type: Procedure Number of Visits Requested: 1 Expiration Date: 07/12/2022 ??? Schedule Endoscopy Procedure CC Schedule Endoscopy Procedure: Screening Colonoscopy Reason for test: Screening cor colon cancer Referral Priority: Routine Referral Type: Procedure Number of Visits Requested: 1 Expiration Date: 07/12/2022 Followup Plans: Return in about 2 months (around 09/12/2021). T DIRECTOR documented in this encounter Miscellaneous Notes Assessment & Plan Note - Shane Farias MD - 07/12/2021 8:58 AM PLANT DIRECTOR Associated Problem(s): Gastroparesis Gastroparesis based on gastric emptying study previously. At this time patient Peers to be doing well without any complaints. Gastroparesis diet. T DIRECTOR Assessment & Plan Note - Shane Farias MD - 07/12/2021 8:37 AM PLANT DIRECTOR Associated Problem(s): Elevated liver enzymes Becki is a 66-year-old woman who was being seen at [facility] and [facility], Was a part of a study, underwent MRA of the liver as well as liver biopsy at [facility] in August 2020 noted to have diffuse hepatic steatosis with increased fat in the liver, and liver stiffness on MRI stage II-III fibrosis. Also had a FibroScan in June 2019 which shows liver fibrosis MetaWare score F4. Liver biopsy in August 2020 at [facility] showed acute steatohepatitis ALEX, with patchy septal fibrosis and early nodule formation. Patient has not had a recent endoscopy, last colonoscopy was over 10 years ago, no history of polyps. As such we will proceed with upper endoscopy to evaluate for varices, colonoscopy or screening purposes. Remain Abstinent from ETOH. Endocrinology requesting direction regarding Metformin and statin, okay to proceed with both, monitor LFTs in 4 weeks after starting statin.gastr 2 g sodium diet daily Avoid aspirin and NSAIDs. Can consider acetaminophen (Tylenol) if required but limited to not more than 2 g daily. EGD for variceal surveillance in 1 year.Now. Biannual RUQ sonogram to assess for liver cancer. Now and every 6 months. Hepatitis B surface antibody negative, patient should be vaccinated for hepatitis B. T DIRECTOR Clinical Note - Kesha Nunez LPN - 07/12/2021 8:30 AM CST PT ID Confirmed Al testing: MRE and liver biopsies () T DIRECTOR documented in this encounter Plan of Treatment Scheduled Referrals Name Type Priority Associated Diagnoses Order S chedule SCHEDULE ENDOSCOPY REFERRAL Routine Elevated liver enzymes Ordered: 07/12/2021 PROCEDURE CC SCHEDULE ENDOSCOPY REFERRAL Routine Elevated liver enzymes Ordered: 07/12/2021 PROCEDURE CC documented as of this encounter Results ROUTINE IN-HOUSE SARS-COV-2 RNA (COVID-19) (07/25/2021 11:35 AM PLANT DIRECTOR) [facility] Method Time Signature SARS-CoV-2 Not Not Detected, 07/25/2021 [facility] RNA Detected Presumptive 9:38 PM PLANT DIRECTOR [facility] (COVID-19) Negative, LABORATORY Negative Specimen Anatomical Collection Method Collection Time Receive d Time (Source) Location / / Volume Laterality Swab NASAL / Unknown Non-blood 07/25/2021 11:35 07/25/19 22 collection / AM PLANT DIRECTOR 11:35 AM PLANT DIRECTOR Unknown Narrative [facility] - 2021 9:38 PM PLANT DIRECTOR Negative results do not preclude 2019-nCoV infection and should not be used as the sole basis for laxmi atment or other patient management decis ions. ??Negative results must be combined with clinical observations, patient history, and epidemiological information. This test was performed using a RT-PCR a ssay designed for qualitative detection of severe acute respiratory syndrome coronavirus 2 (SARS-CoV-2) RNA. Shane Farias MD MICROBIOLOGY - GENERAL OR DERABLES Performing Organization Address City/State/ZIP Code Phon e Number [facility] [address] [place] [address] US ABDOMEN COMPLETE (07/16/2021 10:55 AM PLANT DIRECTOR) Anatomical Region Laterality Modality Abdomen Ultrasound Specimen (Source) Anatomical Collection Method Collection Time Re ceived Time Location / / Volume Laterality 07/16/2021 10:32 AM PLANT DIRECTOR Narrative 07/17/2021 8:25 AM PLANT DIRECTOR US, ABDOMEN COMPLETE HISTORY: ??Abnormal levels of [...] encounter Visit Diagnoses Diagnosis Elevated liver enzymes - Primary Nonspecific elevation of levels of trans aminase or lactic acid dehydrogenase (LDH) Gastroparesis Elevated liver enzymes Nonspecific elevation of levels of trans aminase or lactic acid dehydrogenase (LDH) documented in this encounter Discontinued Medications Medication Sig Discontinue Reason Start Date End Date dulaglutide (Trulicity) Inject 0.75 mg Patient quit taking 05/27/20 21 07/12/2021 0.75 MG/0.5ML pen under the skin one injection time a week. documented as of this encounter Historical Medications This list may reflect changes made after this encounter. Medication Sig Dispensed Refills Start Date End Date busPIRone (Buspar) 10 MG Take 10 mg by mouth 0 tablet one time a day. added in this encounter Orders Lab Orders Without Results Count Last Ordered Date st Ordered Date HEPATIC FUNCTION PANEL 1 07/12/2021 documented in this encounter Care Teams Coal Passer Relationship Specialty Start Date End Date Elsewhere, Pcp PCP - General 05/20/21 documented as of this encounter
--- OUTSIDE RECORDS SUMMARY | 2022-05-09 10:57 | XMS_ITS | Encounter Summary ---
:1955 Author Organization [place] Address [address] [facility] [place] [address] Care Team Providers Name Role Phone Krystin Christie APRN SUPERVISOR PURIFICATION Primary Care Provider [phone] Sonja Tinajero [facility] Unavailable [phone] Sea Tsai DO Unavailable [phone] Sea Tsai DO Unavailable [phone] Stephanie Canela MD Unavailable [phone] Krystin Christie APRN SUPERVISOR PURIFICATION Unavailable [phone] Dima Hidalgo MD Unavailable Dima Hidalgo MD Unavailable Encounter Details Date Type Department Care Team Description 02/27/[address] 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 documented as of this encounter Plan of Treatment Upcoming Encounters Date Type Specialty Care Team Description 05/19/2022 Office Visit ENT Dima [facility]idalgo M D [address] [facility] [place] [place] [address] (Wo rk) 08/02/2022 Office Visit Neurology Yair Campos MD [address] [facility] [place], [place] [id number] (Wo rk) documented as of this encounter Visit Diagnoses Not on filedocumented in this encounter Additional Health Concerns Assessment Noted Time PHQ-9 Depression Total Score: 8 01/07/2019 2:02 PM CDT documented as of this encounter Care Teams Underground Heavy Equipment Operator Relationship Specialty Start Date End Date Krystin Christie PCP - General Nurse Practitioner 09/18/19 SAURABH Engel SUPERVISOR PURIFICATION [address] [facility] [place] [id number] Sonja Tinajero, Pharmacist 08/24/20 [facility] [address] [place] [address] [place] [id number] Sea Tsai MD Neurology 08/04/21 DO Aleks [address] [place] [address] Sea Tsai Assigned Neuroscience 10/10/21 DO Aleks Provider [address] [place] [address] Stephanie Canela Assigned OBGYN Provider 12/05/21 MD Alee [address] [facility] [address] [place] [id number] Krystin Christie Assigned PCP 01/08/22 SAURABH Engel SUPERVISOR PURIFICATION [address] [facility] [place] [id number] Dima Hidalgo MD MD Otolaryngology 02/15/[address] [place] [address] [id number] Dima Hidalgo MD Assigned Surgical 03/12/[address] [address] [id number] documented as of this encounter
--- OUTSIDE RECORDS SUMMARY | 2022-05-09 10:57 | XMS_ITS | Encounter Summary ---
:1955 Author Organization [employer] Address [address] [facility] [place] [address] Care Team Providers Name Role Phone Krystin Christie APRN KELP OR SEAGRASS GATHERER Primary Care Provider [phone] Eric Abdi MD Unavailable [phone] Cecilia Aleman MD Unavailable [phone] Sonja Tinajero [facility] Unavailable [phone] Vidhi Paiz APRN [facility] Unavailable [phone] Encounter Details Date Type Department Care Team Description 02/15/2021 Travel Social History Tobacco Use Types Packs/Day Years Used Date Smoking Tobacco: Never Smokeless Tobacco: Never Alcohol Use Standard Drinks/Week Comments No 0 (1 standard drink = 0.6 oz pure alcoho l) Sex Assigned at Date Recorded Female 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 documented as of this encounter Plan of Treatment Upcoming Encounters Date Type Specialty Care Team Description 05/19/2022 Office Visit ENT Dima Hidalgo M D [address] [place], [place] [address] (Wo rk) 08/02/2022 Office Visit Neurology Yair Campos MD [address] [place], [place] [address] [place] [address] (Wo rk) documented as of this encounter Visit Diagnoses Not on filedocumented in this encounter Additional Health Concerns Assessment Noted Time PHQ-9 Depression Total Score: 8 01/07/2019 2:02 PM CDT documented as of this encounter Care Teams Surfacer Relationship Specialty Start Date End Date Krystin Christie PCP - General Nurse Practitioner 09/18/19 SAURABH Engel KELP OR SEAGRASS GATHERER [address] [facility] [place] [address] Eric Abdi Assigned Musculoskeletal 05/08/20 03/27/21 MD Joo Provider [place] [address] [address] [place] [address] Cecilia Aleman Assigned Surgical Provider 05/08/20 03/06/21 MD Lyly [address] [facility] [address] [place] [address] Sonja Tinajero Pharmacist 08/24/20 Dev, [facility] [address] [facility] [place] [id number] Vidhi Paiz Assigned PCP 01/29/21 07/10/21 SAURABH Turner KELP OR SEAGRASS GATHERER [address] [facility] [place] [address] documented as of this encounter
--- OUTSIDE RECORDS SUMMARY | 2022-05-09 10:57 | XMS_ITS | Encounter Summary ---
:1955 Author Organization [place] Address [address] [facility] [place] [address] Care Team Providers Name Role Phone Krystin Christie APRN MANAGER INVESTMENT BANKING Primary Care Provider Sonja Tinajero [facility] Unavailable [phone] Sea Tsai DO Unavailable [phone] Sea Tsai DO Unavailable [phone] Stephanie Canela MD Unavailable [phone] Krystin Christie APRN, CNP Unavailable [phone] Dima Hidalgo MD Unavailable Reason for Referral Diagnostic Imaging CT Scan (Routine) - Closed Specialty Diagnoses / Procedures Referred By Contact Refer red To Contact Diagnoses Sinus pressure Dima Hidalgo MD Procedures CT Sinus w/o Contrast [address] [place] [address] Referral ID Status Reason Start Date Expiration Date Visits Requ ested Visits Authorized [id number] Closed 03/03/2022 03/03/2023 1 1 Reason for Visit Diagnostic Imaging CT Scan (Routine) - Closed Specialty Diagnoses / Procedures Referred By Contact Refer red To Contact Diagnoses Sinus pressure Dima Hidalgo MD Procedures CT Sinus w/[place] [address] [place] [address] Referral ID Status Reason Start Date Expiration Date Visits Requ ested Visits Authorized [id number] Closed 03/03/2022 03/03/2023 1 1 Encounter Details Date Type Department Care Team Description 03/11/2022 Hospital Encounter [facility] Dima Hidalgo MD Formerly [facility] [address] [place] [address] [place] [address] [phone] (Work) [place] [address] [place] [address] Social History Tobacco Use Types Packs/Day Years Used Date Smoking Tobacco: Never Smokeless Tobacco: Never Alcohol Use Standard Drinks/Week Comments No 0 (1 standard drink = 0.6 oz pure alcoho l) Sex Assigned at Date Recorded Female 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 documented as of this encounter Medications at Time of Discharge Medication Sig Dispensed Refills Start Date End Date ACCU-CHEK ANNIE PLUS USE TO TEST BLOOD 100 each 0 07/20/19 21 test stripIndications: SUGAR ONCE A DAY OR Type 2 diabetes mellitus DIRECTED (NEED TO BE without complication, SEEN IN CLINIC FOR without long-term FURTHER REFILLS) current use of insulin (H) albuterol (PROAIR Inhale 2 puffs into 1 Inhaler 3 0 HFA/PROVENTIL the lungs every 6 HFA/VENTOLIN HFA) 108 hours as needed for (90 Base) MCG/ACT shortness of breath / inhalerIndications: Mild dyspnea or wheezing persistent asthma with acute exacerbation busPIRone (BUSPAR) 10 MG Take 1 tablet (10 mg) 180 tablet 0 07/08/2020 tabletIndications: KIERRA by mouth 2 times daily (generalized anxiety disorder) cetirizine (ZYRTEC) 10 Take 1 tablet (10 mg) 90 tablet 3 MG tabletIndications: by mouth daily as Uncomplicated asthma, needed For hives unspecified asthma severity, unspecified whether persistent, Hives dapagliflozin (FARXIGA) Take 10 mg by mouth 0 03/2022 10 MG TABS tablet diclofenac (VOLTAREN) 1 Place 4 g onto the 100 g 1 04/17 % topical skin 4 times daily as gelIndications: needed for moderate Arthralgia, unspecified pain joint EPINEPHrine (EPIPEN) 0.3 Inject 0.3 mg into the 0 MG/0.3ML injection muscle once as needed. glipiZIDE (GLUCOTROL XL) Take 1 tablet (5 mg) 90 tablet 0 1 09/08/2019 5 MG 24 hr by mouth daily Needs tabletIndications: Type labs for refills 2 diabetes mellitus with complication, without long-term current use of insulin (H) ipratropium - albuterol Take 1 vial (3 mLs) by 1 Box 0 10/01/2019 0.5 mg/2.5 mg/3 mL nebulization every 6 (DUONEB) 0.5-2.5 (3) hours as needed for MG/3ML neb shortness of breath / solutionIndications: dyspnea or wheezing Mild persistent asthma with acute exacerbation levocetirizine (XYZAL) 5 TAKE 1 TABLET BY MOUTH 0 01/27/2021 MG tablet TWICE A DAY levothyroxine Take 1 tablet (50 mcg) 90 tablet 0 07/08/2020 (SYNTHROID/LEVOTHROID) by mouth daily Needs 50 MCG labs for refills tabletIndications: Subclinical hypothyroidism metFORMIN Take 3 tablets (1,500 270 tablet 0 07/08/2020 (GLUCOPHAGE-XR) 500 MG mg) by mouth daily 24 hr tabletIndications: (with dinner) Needs Type 2 diabetes mellitus labs for refills with complication, without long-term current use of insulin (H) montelukast (SINGULAIR) Take 1 tablet (10 mg) 90 tablet 3 0 01/21/2020 10 MG tabletIndications: by mouth At Bedtime Mild persistent asthma with acute exacerbation 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, without long-term current use of insulin (H) rosuvastatin (CRESTOR) rosuvastatin 10 mg tablet 0 07/29/2021 10 MG tablet TAKE 1 TABLET BY MOUTH EVERY DAY Vitamin D, Take 1,000 Units by 0 Cholecalciferol, 1000 mouth daily units TABS documented as of this encounter Plan of Treatment Upcoming Encounters Date Type Specialty Care Team Description 05/19/2022 Office Visit ENT Dima Hidalgo M D [address] [place], [place] [address] (Wo rk) 08/02/2022 Office Visit Neurology Yair Campos MD [address] [place] [address] (Wo rk) documented as of this encounter Procedures Procedure Name Priority Date/Time Associated Diagnosis Comme nts CT SINUS W/O Routine 03/11/2022 1:57 PM Results f or this CONTRAST CDT procedure are i n the results section. documented in this encounter Results CT Sinus w/o Contrast (03/11/2022 1:57 [...] CDT EXAM: CT SINUS W/O CONTRAST LOCATION: [facility] DATE/TIME: 03/11/2022 1:57 PM INDICATION: Rhinosinusitis. [...] original. EXAM: CT SINUS W/O CONTRAST LOCATION: [facility] DATE/TIME: 03/11/2022 1:57 PM INDICATION: Rhinosinusitis. [...] left. Dima Hidalgo MD IMG CT ORDERABLES documented in this encounter Visit Diagnoses Not on filedocumented in this encounter Additional Health Concerns Assessment Noted Time PHQ-9 Depression Total Score: 8 01/07/2019 2:02 PM CDT documented as of this encounter Care Teams Ocean Forwarder Relationship Specialty Start Date End Date Krystin Christie PCP - General Nurse Practitioner 09/18/19 SAURABH nEgel MANAGER INVESTMENT BANKING [address] [facility] [address] [id number] Sonja Tinajero, Pharmacist 08/24/20 [facility] [address] [facility] [place] [address] Sea Tsai MD Neurology 08/04/21 DO Aleks [address] [place] [address] Sea Tsai Assigned Neuroscience 10/10/21 DO Aleks Provider [address] [place] [address] Stephanie Canela Assigned OBGYN Provider 12/05/21 MD Alee [address] [place] [id number] Krystin Christie Assigned PCP 01/08/22 SAURABH Engel MANAGER INVESTMENT BANKING [address] [facility] [address] [id number] Dima Hidalgo MD MD Otolaryngology 02/15/22 [facility] [id number] documented as of this encounter
--- OUTSIDE RECORDS SUMMARY | 2022-05-09 10:57 | XMS_ITS | Encounter Summary ---
:1955 Author Organization [place] Address [facility] [address] Care Team Providers Name Role Phone Krystin Christie APRN RIGGING LOFT REPAIRER Primary Care Provider [phone] Sonja Tinajero [facility] Unavailable [phone] Sea Tsai DO Unavailable [phone] Sea Tsai DO Unavailable [phone] Stephanie Canela MD Unavailable [phone] Krystin Christie APRN RIGGING LOFT REPAIRER Unavailable [phone] Dima Hidalgo MD Unavailable Reason for Referral Consultation (Routine: Next available opening) - Pending Review Specialty Diagnoses / Procedures Referred By Contact Refer red To Contact Diagnoses Right facial pain Dima Hidalgo MD [facility] [address] [place] [address] [address] [place] [address] [facility] [address] [phone] Phone: Fax: Referral ID Status Reason Start Date Expiration Date Visits V isits Requested Authorized [id number] Pending 03/03/2022 03/03/2023 [address] Scan (Routine) - Closed Specialty Diagnoses / Procedures Referred By Contact Refer red To Contact Diagnoses Sinus pressure Dima Hidalgo MD Procedures CT Sinus w/o Contrast [address] [place] [address] [place] [address] Referral ID Status Reason Start Date Expiration Date Visits Requ ested Visits Authorized [id number] Closed 03/03/2022 03/03/2023 1 1 Reason for Visit Reason Comments Sinus Problem Sinus pain has been there si september had a mole removed Consultation (Routine) - Pending Review Specialty Diagnoses / Procedures Referred By Contact Refer red To Contact Otolaryngology Diagnoses Sinusitis chronic, frontal Rocky Avalos Neil E, MD Jessica A [address] [place] [address] [place] [address] [address] [facility] [place], [place] [address] Referral ID Status Reason Start Date Expiration Date Visits V isits Requested Authorized [id number] Pending 02/28/2022 02/28/2023 1 1 Review Encounter Details Date Type Department Care Team Description 03/03/2022 Office Visit [facility] Dima Hidalgo MD Right facial pain [facility] [place] [address] [place] [address] Saroj Smith (Primary Dx) [place] [address] [address] [employer] [place] [address] Social History Tobacco Use Types Packs/Day Years Used Date Smoking Tobacco: Never Smokeless Tobacco: Never Alcohol Use Standard Drinks/Week Comments No 0 (1 standard drink = 0.6 oz pure alcoho l) Sex Assigned at Date Recorded 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 documented as of this encounter Progress Notes Dima Hidalgo MD - 03/03/2022 10:40 AM CDT CHIEF COMPLAINT: Patient presents with: Sinus Problem: Sinus pain has been there since September had a mole removed HISTORY OF PRESENT ILLNESS [facility]. Pain = 3/10 but can occaisonallly go to a 7. This has been going on since September 17 after a mole removal ([facility]) No seasonal allergies. No history of migraine. Sino-Nasal Outcome Test (SNOT - 22) 1. Need to Blow Nose: (P) Mild or slight 2. Nasal Blockage: (P) Mild or slight 3. Sneezing: (P) None 4. Runny Nose: (P) None 5. Cough: (P) None 6. Post-nasal discharge: (P) Very mild 7. Thick nasal discharge: (P) None 8. Ear fullness: (P) None 9. Dizziness: (P) Very mild 10. Ear Pain: (P) Very mild 11. Facial pain/pressure: (P) Moderate 12. Decreased Sense of Smell/Taste: (P) None 13. Difficulty falling asleep: (P) None 14. Wake up at night: (P) None 15. Lack of a good night's sleep: (P) None 16. Wake up tired: (P) None 17. Fatigue: (P) None 18. Reduced Productivity: (P) None 19. Reduced Concentration: (P) None 20. Frustrated/restless/irritable: (P) None 21. Sad: (P) None 22. Embarrassed: (P) None Total Score: (P) 10 COPYRIGHT 1996. [facility] [place] REVIEW OF SYSTEMS Review of Systems as per HPI and PMHx, otherwise 10 system review system are negative. Cipro [quinolones], Ciprofloxacin, Codeine, Codeine sulfate, Vicodin [hydrocodone-acetaminophen], Darvocet [propoxyphene n-apap], and Pioglitazone There were no vitals taken for this visit. HEAD: Normal appearance and symmetry: No cutaneous lesions. NECK: supple EARS: normal TM, EACs EYES: EOMI CN VII/XII: intact NOSE: Dorsum: straight Septum: midline Mucosa: moist ORAL CAVITY/OROPHARYNX: Lips: Normal. Tongue: normal, midline Mucosa: no lesions NECK: Trachea: midline. Thyroid: normal Adenopathy: none NEURO: Alert and Oriented GAIT AND STATION: normal RESPIRATORY: Symmetry and Respiratory effort PSYCH: Normal mood and affect SKIN: warm and dry IMPRESSION: Encounter Diagnoses Name Primary? Sinusitis chronic, frontal ??? Sinus pressure Yes ??? Right facial pain RECOMMENDATIONS: Orders Placed This Encounter Procedures ??? CT Sinus w/o Contrast ??? Adult Neurology Hvac Design Engineer Referral documented in this encounter Nursing Notes Deyanira De La Cruz - 03/03/2022 10:40 AM CDT Sino-Nasal Outcome Test (SNOT - 22) 1. Need to Blow Nose: (P) Mild or slight 2. Nasal Blockage: (P) Mild or slight 3. Sneezing: (P) None 4. Runny Nose: (P) None 5. Cough: (P) None 6. Post-nasal discharge: (P) Very mild 7. Thick nasal discharge: (P) None 8. Ear fullness: (P) None 9. Dizziness: (P) Very mild 10. Ear Pain: (P) Very mild 11. Facial pain/pressure: (P) Moderate 12. Decreased Sense of Smell/Taste: (P) None 13. Difficulty falling asleep: (P) None 14. Wake up at night: (P) None 15. Lack of a good night's sleep: (P) None 16. Wake up tired: (P) None 17. Fatigue: (P) None 18. Reduced Productivity: (P) None 19. Reduced Concentration: (P) None 20. Frustrated/restless/irritable: (P) None 21. Sad: (P) None 22. Embarrassed: (P) None Total Score: (P) 10 COPYRIGHT 1996. [facility] Deyanira De La Cruz on 03/03/2022 at 10:50 AM documented in this encounter Plan of Treatment Upcoming Encounters Date Type Specialty Care Team Description 05/19/2022 Office Visit ENT Dima Hidalgo M D [address] [facility] [place], [place] [address] (Wo rk) 08/02/2022 Office Visit Neurology Yair Campos MD [address] [place] [address] (Wo rk) Scheduled Referrals Name Type Priority Associated Diagnoses Order S chedule Adult Neurology Referral Routine: Next Right facial pain Expect ed: Hvac Design Engineer Referral available opening 02/14 (Approximate), Expires: 03/03/2023 documented as of this encounter Results CT Sinus w/o Contrast [...] CDT EXAM: CT SINUS W/O CONTRAST LOCATION: [facility] DATE/TIME: 03/11/2022 1:57 PM INDICATION: Rhinosinusitis. [...] visualized orbits or intracranial compartment. Procedure Note Yaiml Brown MD - 03/12/2022Formattin g of this note might be different from the original. EXAM: CT SINUS W/O CONTRAST LOCATION: [facility] DATE/TIME: 03/11/2022 1:57 PM INDICATION: Rhinosinusitis. [...] in this encounter Visit Diagnoses Diagnosis Right facial pain - Primary Headache documented in this encounter Additional Health Concerns Assessment Noted Time PHQ-9 Depression Total Score: 8 01/07/2019 2:02 PM CDT documented as of this encounter Care Teams Railcar Switcher Relationship Specialty Start Date End Date Krystin Christie PCP - General Nurse Practitioner 09/18/19 SAURABH Engel RIGGING LOFT REPAIRER [address] [facility] [place] [address] Sonja Tinajero, Pharmacist 08/24/20 [facility] [address] [facility] [place] [address] Sea Tsai MD Neurology 08/04/21 DO Aleks [address] [place] [address] Sea Tsai Assigned Neuroscience 10/10/21 DO Aleks Provider [address] [place] [phone] Stpehanie Canela Assigned OBGYN Provider 12/05/21 MD Alee [address] [place] [address] Krystin Christie Assigned PCP 01/08/22 SAURABH Engel RIGGING LOFT REPAIRER [address] [facility] [address] [id number] Dima Hidalgo MD MD Otolaryngology 02/15/[address] [id number] documented as of this encounter
--- OUTSIDE RECORDS SUMMARY | 2022-05-09 10:57 | XMS_ITS | Encounter Summary ---
:1955 Author Organization [facility] Address [address] [place] [address] Care Team Providers Name Role Phone Krystin Christie APRN DRYING MACHINE RECEIVER Primary Care Provider [phone] Sonja Tinajero [facility] Unavailable [phone] Sea Tsai DO Unavailable [phone] Vidhi Paiz APRN DRYING MACHINE RECEIVER Unavailable [phone] Sea Tsai DO Unavailable [phone] Reason for Visit Reason Comments Abdominal Pain Encounter Details Date Type Department Care Team Description 11/23/2021 - [facility] Roscoe Chisholm MD [facility] [address] [place], [place] [id number] Generalized muscle weakness; 11/24/2021 [facility] Althea Helton DO [facility] [address] [place] [id number] Vaginal bleeding Dept Shavonne Hawkins MD, [address] [place], [place] [address] [address] Cammie Das MD [facility] [address] [place] [address] [place] [address] Social History Tobacco Use Types Packs/Day Years Used Date Smoking Tobacco: Never Smokeless Tobacco: Never Alcohol Use Standard Drinks/Week Comments No 0 (1 standard drink = 0.6 oz pure alcoho l) Sex Assigned at Date Recorded Female 08/17/2018 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 documented as of this encounter Last Filed Vital Signs Vital Sign Reading Time Taken Comments Blood Pressure 117/69 11/24/2021 7:37 AM CDT Pulse 64 11/24/2021 7:37 AM CDT Temperature 36.9 ??C (98.5 ??F) 11/24/2021 7:37 AM CDT Respiratory Rate 18 11/24/2021 7:37 AM CDT Oxygen Saturation 96% 11/24/2021 7:37 AM CDT Inhaled Oxygen Concentration - - Weight 88.9 kg (196 lb) 11/23/2021 9:48 PM CDT Height 160 cm (5' 3) 11/23/2021 9:48 PM CDT Body Mass Index 34.72 11/23/2021 9:48 PM CDT documented in this encounter Discharge Summaries Dima Skelton MD - 11/24/2021 12:18 PM CDT [facility] DISCHARGE SUMMARY (Hospitalist Service) Date of Admission: 11/23/2021 Date of Discharge: 11/24/2021 12:18 PM Discharging Provider: Dima Skelton MD Date of Service (when I saw the patient): 11/24/21 Discharge Diagnoses Presyncope. Abnormal uterine bleeding. Hypothyroidism. Depression. Alex. Obstructive sleep apnea. Asthma. History of Present Illness This is a 66-year-old white female with a history of type 2 diabetes, hypothyroidism, history of ALEX with possible cirrhosis, obstructive sleep apnea, who presents with discomfort in her suprapubic region, accompanied with mild bleeding from her vagina. She also presents with weakness, which is more prominent now stating that she feels presyncopal whenshe is about to stand up and her knees give way. She was recently diagnosed with an upper respiratory tract infection and has been on Augmentin for the past 3-4 days, her symptoms are improving from that perspective. She denies any documented fever. She denies any productive cough. She denies any chest pain. Hospital Course Presyncope. Patient was admitted to medicine service as an observation. I evaluated the patient in the ER as she was still boarding in the ER due to bed unavailability. This could be vasovagal in the setting of lower abdominal cramp, bleeding, stress related to all this. No worrisome findings on telemetry. No worrisome findings on the EKG. Does not appear to be orthostatic hypotension as no drop in blood pressure noted after standing up. No evidence of hemorrhagic shock as her hemoglobin has remained stable and the bleeding was relatively small. She was evaluated by PT and OT in the emergency room. She has been able to ambulate now without difficulty. No evidence of ongoing weakness or dizziness. Neuro exam is normal without any focal deficit. Patient really wants to go home from the emergency room. Patient will be discharged home. No changes with home medications. Abnormal uterine bleeding. An ultrasound of her pelvis and transvaginal showed anteverted postmenopausal uterus with mildly prominent and heterogenous endometrium. Please correlate clinically. Normal right ovary with normal Doppler vascularity. Left ovary obscured due to bowel gas. No free fluid in the dependent pelvis. Patient has a follow-up appointment with GI event physician on next Monday. Recommended to return to the emergency room for recurrence of symptoms. No thrombocytopenia. Not on any aspirin. Not on any blood thinner medicines. I personally evaluated and examined the patient on the day of discharge. Dima Skelton MD Pending Results These results will be followed up by PCP Unresulted Labs Ordered in the Past 30 Days of this Admission No orders found for last 31 day(s). Primary Care Physician Krystin Christie Discharge Disposition Discharged to home Condition at discharge: Stable Consultations This Hospital Stay PHYSICAL THERAPY ADULT IP CONSULT OCCUPATIONAL THERAPY ADULT IP CONSULT Time Spent on this Encounter Discharge time: greater than 30 minutes. Discharge Orders Reason for your hospital stay Presyncope. Abnormal uterine bleeding Follow-up and recommended labs and tests Follow up with primary care provider, Krystin Christie, within 7 days for hospital follow- up. Follow up with SETTLEMENT PROCESSOR next week. Activity Your activity upon discharge: activity as tolerated Diet Follow this diet upon discharge: Orders Placed This Encounter Moderate Consistent Carb (60 g CHO per Meal) Diet Discharge Medications Discharge Medication List as of 11/24/2021 12:11 PM CONTINUE these medications which have NOT CHANGED Details ACCU-CHEK ANNIE PLUS test strip USE TO TEST BLOOD SUGAR ONCE A DAY OR DIRECTED (NEED TO BE SEEN IN CLINIC FOR FURTHER REFILLS), Disp-100 each, R-0, SAMIR, E-Prescribe albuterol (PROAIR HFA/PROVENTIL HFA/VENTOLIN HFA) 108 (90 Base) MCG/ACT inhaler Inhale 2 puffs into the lungs every 6 hours as needed for shortness of breath / dyspnea or wheezing, Disp-1 Inhaler,R-3, E-PrescribePharmacy may dispense brand covered by insurance (Proair, or proventil or ventolin or generic albuterol inhaler) busPIRone (BUSPAR) 10 MG tablet Take 1 tablet (10 mg) by mouth 2 times daily, Disp-180 tablet, R-0, E-Prescribe cetirizine (ZYRTEC) 10 MG tablet Take 1 tablet (10 mg) by mouth daily as needed For hives, Disp-90 tablet,R-3, E-Prescribe dapagliflozin (FARXIGA) 10 MG TABS tablet Take 10 mg by mouth, 10 mg, Oral, Starting 08/25/2021, Historical diclofenac (VOLTAREN) 1 % topical gel Place 4 g onto the skin 4 times daily as needed for moderate pain, Disp-100 g, R-1, E-Prescribe EPINEPHrine (EPIPEN 2-KITTY) 0.3 MG/0.3ML injection Inject 0.3 mg into the muscle once as needed., Historical glipiZIDE (GLUCOTROL XL) 5 MG 24 hr tablet Take 1 tablet (5 mg) by mouth daily Needs labs for refills, Disp-90 tablet, R-0, E-Prescribe ipratropium - albuterol 0.5 mg/2.5 mg/3 mL (DUONEB) 0.5-2.5 (3) MG/3ML neb solution Take 1 vial (3 mLs) by nebulization every 6 hours as needed for shortness of breath / dyspnea or wheezing, Disp-1 Box,R-0, E-Prescribe levocetirizine (XYZAL) 5 MG tablet TAKE 1 TABLET BY MOUTH TWICE A DAY, Historical levothyroxine (SYNTHROID/LEVOTHROID) 50 MCG tablet Take 1 tablet (50 mcg) by mouth daily Needs labs for refills, Disp-90 tablet, R-0, E-Prescribe metFORMIN (GLUCOPHAGE-XR) 500 MG 24 hr tablet Take 3 tablets (1,500 mg) by mouth daily (with dinner)Needs labs for refills, Disp-270 tablet, R-0, E-Prescribe montelukast (SINGULAIR) 10 MG tablet Take 1 tablet (10 mg) by mouth At Bedtime, Disp-90 tablet,R-3, E-Prescribe order for DME Equipment being ordered: orthopedic Diabetic shoesDisp-1 each, R- 0, Local Print rosuvastatin (CRESTOR) 10 MG tablet rosuvastatin 10 mg tablet TAKE 1 TABLET BY MOUTH EVERY DAY, Historical Vitamin D, Cholecalciferol, 1000 units TABS Take 1,000 Units by mouth daily, Historical STOP taking these medications traMADol (ULTRAM) 50 MG tablet Comments: Reason for Stopping: valACYclovir (VALTREX) 1000 mg tablet Comments: Reason for Stopping: Allergies Allergies Allergen Reactions ??? Cipro [Quinolones] Itching and Difficulty breathing ??? Ciprofloxacin Itching and Shortness Of Breath ??? Codeine Shortness Of Breath Other reaction(s): Syncope ??? Codeine Sulfate Other (See Comments) Blacked out ??? Vicodin [Hydrocodone-Acetaminophen] Itching and Difficulty breathing ??? Darvocet [Propoxyphene N-Apap] Itching ??? Pioglitazone [place] sick Data Most Recent 3 CBC's:Recent Labs Lab Test 11/24/21 0918 11/23/21 2235 06/10/19 1221 WBC 7.7 8.5 6.9 HGB 13.1 13.0 13.8 MCV 88 86 85 PLT 191 196 214 Most Recent 3 BMP's: Recent Labs Lab Test 11/24/21 0809 11/23/21 2235 02/15/21 0351 06/10/19 1221 06/09/19 1941 NA -- 139 -- 137 134 POTASSIUM -- 4.1 -- 4.2 4.2 CHLORIDE -- 107 -- 108 103 CO2 -- 26 -- 25 27 BUN -- 23 -- 9 11 CR -- 0.51* -- 0.54 0.56 ANIONGAP -- 6 -- 4 4 JOSIAH -- 8.7 -- 8.6 8.8 GLC 244* 195* 356* 256* 263* Most Recent 2 LFT's: Recent Labs Lab Test 06/10/19 1221 06/09/19 1941 AST 32 57* ALT 82* 95* ALKPHOS 78 73 BILITOTAL 0.4 0.3 Most Recent INR's and Anticoagulation Dosing History: Anticoagulation Dose History Recent Dosing and Labs Latest Ref Rng & Units 10/13/2010 11/10/2010 07/20/2011 05/26/2015 07/01/2016 06/10/2019 INR 0.86 - 1.14 1.00 1.00 1.00 1.00 0.99 1.00 Most Recent 3 Troponin's: Recent Labs Lab Test 06/09/19 1941 09/09/18 1130 08/21/18 0611 TROPI <0.015 <0.015 <0.015 Most Recent Cholesterol Panel: Recent Labs Lab Test 08/16/18 1731 CHOL 207* LDL 135* HDL 46* TRIG 130 Most Recent 6 Bacteria Isolates From Any Culture (See EPIC Reports for Culture Details): Recent Labs Lab Test 08/16/19 1600 07/18/19 1444 08/21/18 0130 CULT Ureaplasma species isolated* No large colony Mycoplasma species isolated No growth No growth Most Recent TSH, T4 and A1c Labs: Recent Labs Lab Test 05/03/19 1413 TSH 6.70* T4 1.20 A1C 8.4* documented in this encounter Discharge Instructions AttachmentsThe following attachments cannot be sent through Care Everywhere. Weakness (Uncertain Cause) ([place])documented in this encounter Medications at Time of [...] units TABS documented as of this encounter Progress Notes Anna Wilson, OT - 11/24/2021 11:06 AM CDT 11/24/21 1046 Quick Adds Type of Visit Initial Occupational Therapy Evaluation Living Environment People in Home alone Current Living Arrangements house Home Accessibility stairs to enter home;stairs within home Transportation Anticipated car, drives self;family or friend will provide Living Environment Comments Pt lives with a friend (however reports they live separately), pt in lower level, stairs to enter/within, walk in shower. Self-Care Usual Activity Tolerance good Current Activity Tolerance moderate Equipment Currently Used at Home none Fall history within last six months no Activity/Exercise/Self-Care Comment Pt reports indep in all ADLs, IADLs and mobility tasks with no AD at baseline. Pt is retired. Instrumental Activities of Daily Living (IADL) Previous Responsibilities meal prep;housekeeping;laundry;shopping;medication management;driving;finances General Information Onset of Illness/Injury or Date of Surgery 11/23/21 Referring Physician Shavonne Hawkins MD, MD Patient/Family Therapy Goal Statement (OT) Pt's goal is to d/c home Additional Occupational Profile Info/Pertinent History of Current Problem Per chart: Pt is a 66 yearold female admitted with Generalized weakness, vaginal bleeding, presyncope Existing Precautions/Restrictions fall Cognitive Status Examination Orientation Status orientation to person, place and time Visual Perception Visual Impairment/Limitations corrective lenses for reading Pain Assessment Patient Currently in Pain Yes, see Vital Sign flowsheet (pressure in abdominal region) Range of Motion Comprehensive Comment, General Range of Motion BUEs WFL Strength Comprehensive (MMT) Comment, General Manual Muscle Testing (MMT) Assessment BUEs WFL Bed Mobility Bed Mobility supine-sit;sit-supine Supine-Sit [place] (Bed Mobility) independent Sit-Supine [place] (Bed Mobility) independent Transfers Transfers sit-stand transfer;toilet transfer Sit-Stand Transfer Sit-Stand [place] (Transfers) contact guard Toilet Transfer [place] Level (Toilet Transfer) independent Balance Balance Comments No balance deficits identified Activities of Daily Living BADL Assessment/Intervention toileting Toileting [place] Level (Toileting) independent Clinical Impression Criteria for Skilled Therapeutic Interventions Met (OT) Yes, treatment indicated OT Diagnosis Impaired ADLs, mobility OT Problem List-Impairments impacting ADL problems related to;activity tolerance impaired;strength Assessment of Occupational Performance 3-5 Performance Deficits Identified Performance Deficits ADLs, IADLs, mobility Planned Therapy Interventions (OT) ADL retraining;IADL retraining;strengthening;transfer training Clinical Decision Making Complexity (OT) low complexity Risk & Benefits of therapy have been explained evaluation/treatment results reviewed;care plan/treatment goals reviewed;risks/benefits reviewed;current/potential barriers reviewed;participants voiced agreement with care plan;participants included;patient OT Discharge Planning OT Discharge Recommendation (DC Rec) home OT Rationale for DC Rec Pt has achieved all goals for return home. Denies need for further therapy services at this time. Reports feels near baseline. Total Evaluation Time (Minutes) Total Evaluation Time (Minutes) 8 OT Goals Therapy Frequency (OT) One time eval and treatment OT Predicted Duration/Target Date for Goal Attainment 11/24/21 OT Goals Hygiene/Grooming;Lower Body Dressing;Toilet Transfer/Toileting;OT Goal 1 OT: Hygiene/Grooming supervision/stand-by assist;while standing OT: Lower Body Dressing Supervision/stand-by assist OT: Toilet Transfer/Toileting Supervision/stand-by assist;toilet transfer;cleaning and garment management OT: Goal 1 Pt will ambulate household distance with SBA in prep for safe mobility in discharge environment. Shavonne Hawkins MD, MD - 11/24/2021 3:20 AM CDT H+P dictated. documented in this encounter H&P Notes Shavonne Hawkins MD, MD - 11/24/2021 2:13 AM CDT Admitted: 11/23/2021 CHIEF COMPLAINT: Generalized weakness, vaginal bleeding, presyncope. INFORMANT: History is obtained from the patient. HISTORY OF PRESENT ILLNESS: This is a 66-year-old white female with a history of type 2 diabetes, hypothyroidism, history of ALEX with possible cirrhosis, obstructive sleep apnea, who presents with discomfort in her suprapubic region, accompanied with mild bleeding from her vagina. She also presents with weakness, which is more prominent now stating that she feels presyncopal when she is about to stand up and her knees give way. She was recently diagnosed with an upper respiratory tract infection and has been on Augmentin for the past 3-4 days, her symptoms are improving from that perspective. She denies any documented fever. She denies any productive cough. She denies any chest pain. In the ER over here, she is seen by Dr. Chisholm. I am asked to admit her for further evaluation. PAST MEDICAL HISTORY: Significant for hypothyroidism, GERD, type 2 diabetes, nonalcoholic steatohepatitis. She told me about cirrhosis; however, that is not documented in her chart, hypertension, obstructive sleep apnea. PAST SURGICAL HISTORY: Significant for blepharoplasty. SOCIAL HISTORY: She does not smoke or drink alcohol. FAMILY HISTORY: Significant for diabetes in her father. HOME MEDICATIONS: List includes: 1. Synthroid. 2. BuSpar. 3. Albuterol inhaler. 4. DuoNebs. 5. Crestor. 6. Glipizide. 7. Farxiga. REVIEW OF SYSTEMS: As mentioned in the HPI. She is due to see a industrial painter on Monday for postmenopausal vaginal bleeding. Otherwise, all other systems are extensively reviewed and deemed unremarkable and negative. She denies any cirilo syncope. PHYSICAL EXAMINATION: VITAL SIGNS: Her temperature is 98.4. Her pulse is 67. Her blood pressure is 136/77, O2 sat is 96% on room air. GENERAL: She is alert, awake, oriented, coherent, nontoxic, in no acute distress on exam. HEENT: Pupils equal, round, reactive to light. LUNGS: Clear to auscultation bilaterally. HEART: Regular rate. S1, S2 normal. No murmurs or gallops. ABDOMEN: Soft, nontender, nondistended with good bowel sounds. EXTREMITIES: There is no edema. SKIN: There is no rash. NEUROLOGICAL: Cranial nerves II through XII are grossly within normal limits. Motor: She moves all extremities with 5/5 strength. LABORATORY DATA: Obtained on her included a basic metabolic panel which is grossly within normal limits. Serum hCG is negative. Her troponin is 4. CBC with diff is grossly unremarkable. Urinalysis shows some hematuria. EKG obtained on her shows normal sinus rhythm at 71 beats per minute with nonspecific T-wave abnormality. An ultrasound of her pelvis and transvaginal showed anteverted postmenopausal uterus with mildly prominent and heterogenous endometrium. Please correlate clinically. Normal right ovary with normal Doppler vascularity. Left ovary obscured due to bowel gas. No free fluid in the dependent pelvis. ASSESSMENT AND PLAN: 1. Weakness, postmenopausal bleeding, presyncopal. Hemodynamically, she appears stable. I am unsure about the unifying diagnosis. I will monitor on telemetry. Will get PT and OT to evaluate her. Will place her on fall precautions. 1. Diabetes. Will place her on Accu-Cheks. 2. Hypothyroidism. She will need her home medications reconciled. CODE STATUS: Full code. She will be admitted under observation status. I emphasized that it is of paramount importance that she follow up with her SETTLEMENT PROCESSOR physician for postmenopausal bleeding, which she has set up for Monday. Jerel Hawkins MD MT: [place] Name: BECKI RIDLEY MRN: [id number] Account: [id number] : 1955 Admitted: 11/23/2021 Document: [id number] cc: Krystin Christie APRN DRYING MACHINE RECEIVER documented in this encounter ED Notes Ozzy Morgan - 11/24/2021 12:16 PM CDT Patient's After Visit Summary was reviewed with patient Patient verbalized understanding of After Visit Summary, recommended follow up and was given an opportunity to ask questions. Discharge medications sent home with patient/family: No Discharged with daughter - piv removed, packet given, questions answered Blood pressure 117/69, pulse 64, temperature 98.5 ??F (36.9 ??C), temperature source Oral, resp. rate 18, height 1.6 m (5' 3), weight 88.9 kg (196 lb), SpO2 96 %. Ozzy Morgan - 11/24/2021 10:46 AM CDT Ambulated minimal assistance across olsen to bathroom with OT Ozzy Morgan - 11/24/2021 9:32 AM CDT Pt up w/ A2 out of precautions due to patient saying that she is going to faint and is weak. Minimalassistance was given to bedside commode. Pt ate most of breakfast and is working on computer in room. No pain. Will give home meds when verified and med rec. Pt hooked up to cardiac care nurse - NS. 3u aspart insulin given per sliding scale Blood pressure 117/69, pulse 64, temperature 98.5 ??F (36.9 ??C), temperature source Oral, resp. rate 18, height 1.6 m (5' 3), weight 88.9 kg (196 lb), SpO2 96 %. Ozzy Morgan - 11/24/2021 1:16 AM CDT [facility] ED Nurse Handoff Report Becki Ridley is a 66 year old female ED Chief complaint: Abdominal Pain . ED Diagnosis: Final diagnoses: None Allergies: Allergies Allergen Reactions ??? Cipro [Quinolones] Itching and Difficulty breathing ??? Ciprofloxacin Itching and Shortness Of Breath ??? Codeine Shortness Of Breath Other reaction(s): Syncope ??? Codeine Sulfate Other (See Comments) Blacked out ??? Vicodin [Hydrocodone-Acetaminophen] Itching and Difficulty breathing ??? Darvocet [Propoxyphene N-Apap] Itching ??? Pioglitazone [place] sick Code Status: Full Code Activity level - Baseline/Home: Independent. Activity Level - Current: Assist X 1. Lift room needed:No. Bariatric: No Corporate Development Intern Needed: No Isolation: No. Infection: Not Applicable. Vital Signs: Vitals: 11/24/21 0215 11/24/21 0300 11/24/21 0400 11/24/21 0737 BP: 109/59 111/58 117/69 BP Location: Right arm Pulse: 67 67 64 Resp: 18 Temp: 98 ??F (36.7 ??C) 98.5 ??F (36.9 ??C) TempSrc: Oral Oral SpO2: 96% 95% 95% 96% Weight: Height: Cardiac Rhythm: , Pain level: Patient confused: No. Patient Falls Risk: Yes. Elimination Status: Has voided Patient Report - Initial Complaint: Abdominal Pain. Focused Assessment: Pt concerned about increasing weakness, states if I go home I will collapse Pt also c/o mid lower pelvic pain started 1 week ago associated with generalized weakness, vaginal bleeding, sweating, hot sensation, feeling like passing out, and sensation of want to push. Stated history of polycystic ovarian syndrome. Stated is currently taking Augmentin for respiratory infection. ABCs intact, GCS 15, VSS Tests Performed: Labs, EKG, pelvic US. Abnormal Results: Labs Ordered and Resulted from Time of ED Arrival to Time of ED Departure ROUTINE UA WITH MICROSCOPIC REFLEX TO CULTURE - Abnormal Result Value Color Urine Light Yellow Appearance Urine Clear Glucose Urine Negative Bilirubin Urine Negative Ketones Urine Trace (*) Specific [place] Urine 1.031 Blood Urine Trace (*) pH Urine 5.5 Protein Albumin Urine Negative Urobilinogen Urine Normal Nitrite Urine Negative Leukocyte Esterase Urine Negative Mucus Urine Present (*) RBC Urine 15 (*) WBC Urine <1 Squamous Epithelials Urine <1 BASIC METABOLIC PANEL - Abnormal Sodium 139 Potassium 4.1 Chloride 107 Carbon Dioxide (CO2) 26 Anion Gap 6 Urea Nitrogen 23 Creatinine 0.51 (*) Calcium 8.7 Glucose 195 (*) GFR Estimate >90 HCG QUALITATIVE - Normal hCG Serum Qualitative Negative TROPONIN I - Normal Troponin I High Sensitivity 4 CBC WITH PLATELETS AND DIFFERENTIAL WBC Count 8.5 RBC Count 4.57 Hemoglobin 13.0 Hematocrit 39.5 MCV 86 MCH 28.4 MCHC 32.9 RDW 13.6 Platelet Count 196 % Neutrophils 46 % Lymphocytes 46 % Monocytes 6 % Eosinophils 0 % Basophils 1 % Immature Granulocytes 1 NRBCs per 100 WBC 0 Absolute Neutrophils 3.9 Absolute Lymphocytes 4.0 Absolute Monocytes 0.5 Absolute Eosinophils 0.0 Absolute Basophils 0.0 Absolute Immature Granulocytes 0.0 Absolute NRBCs 0.0 TYPE AND SCREEN, ADULT ABO/RH(D) B NEG Antibody Screen Negative SPECIMEN EXPIRATION DATE WET PREPARATION ABO/RH TYPE AND SCREEN US Pelvic Complete with Transvaginal Final Result IMPRESSION: 1. Anteverted postmenopausal uterus with mildly prominent and heterogeneous endometrium. Please correlate clinically. 2. Normal right ovary, with normal Doppler vascularity. Left ovary obscured due to bowel gas. 3. No free fluid in the dependent pelvis. . Treatments provided: See MAR Family Comments: n/a OBS brochure/video discussed/provided to patient: Yes ED Medications: Medications ketorolac (TORADOL) injection 15 mg (15 mg Intravenous Given 11/23/212242) Drips infusing: No For the majority of the shift, the patient's behavior Green. Interventions performed were n/a. Sepsis treatment initiated: No Patient tested for COVID 19 prior to admission: YES ED Nurse Name/Phone Number: Katy Perez RN, 1:16 AM Lior Adame RN - 11/23/2021 9:46 PM CDT Here for mid lower pelvic pain started 1 week ago associated with generalized weakness, vaginal bleeding, sweating, hot sensation, feeling like passing out, and sensation of want to push. Stated history of polycystic ovarian syndrome. Stated is currently taking Augmentin for respiratory infection. ABCs intact. Triage Assessment Row Name 11/23/212145 Triage Assessment (Adult) Airway WDL WDL Additional Documentation Breath Sounds (Group) Respiratory WDL Respiratory WDL WDL Cardiac WDL Cardiac WDL WDL Roscoe Chisholm MD - 11/23/2021 9:26 PM CDT History Chief Complaint: Abdominal Pain The history is provided by the patient. Becki Ridley is a 66 year old female with a history of type two diabetes mellitus, PCOS, hypertension, and obesity accompanied by her daughter who presents to the emergency department with lower abdominal pain. The patient is currently taking augmenting for a respiratory infection. The patient reports she had an onset of lower abdominal pain about a week ago. She notes this was accompanied with vaginal bleeding and pain that felt as through she was menstruating. In addition, she was also experiencing weakness, diaphoresis, hot sensation, near syncope, and the urge to push. Becki also notes her pain had began to accelerate in severity today. With her increased symptoms she presented to the emergency department for further evaluation. Here, she reports she had a near syncopal episode in triage. Review of Systems Constitutional: Positive for chills and diaphoresis. Gastrointestinal: Positive for abdominal pain. Genitourinary: Positive for pelvic pain, urgency and vaginal bleeding. Neurological: Positive for syncope and weakness. All other systems reviewed and are negative. Allergies: Cipro [Quinolones] Ciprofloxacin Codeine Codeine Sulfate Vicodin [Hydrocodone-Acetaminophen] Darvocet [Propoxyphene N-Apap] Pioglitazone Medications: albuterol (PROAIR HFA/PROVENTIL HFA/VENTOLIN HFA) 108 (90 Base) MCG/ACT inhaler busPIRone (BUSPAR) 10 MG tablet cetirizine (ZYRTEC) 10 MG tablet dapagliflozin (FARXIGA) 10 MG TABS tablet diclofenac (VOLTAREN) 1 % topical gel EPINEPHrine (EPIPEN 2-KITTY) 0.3 MG/0.3ML injection glipiZIDE (GLUCOTROL XL) 5 MG 24 hr tablet ipratropium - albuterol 0.5 mg/2.5 mg/3 mL (DUONEB) 0.5-2.5 (3) MG/3ML neb solution levocetirizine (XYZAL) 5 MG tablet levothyroxine (SYNTHROID/LEVOTHROID) 50 MCG tablet metFORMIN (GLUCOPHAGE-XR) 500 MG 24 hr tablet montelukast (SINGULAIR) 10 MG tablet rosuvastatin (CRESTOR) 10 MG tablet traMADol (ULTRAM) 50 MG tablet valACYclovir (VALTREX) 1000 mg tablet Vitamin D, Cholecalciferol, 1000 units TABS buPROPion (WELLBUTRIN XL) 150 mg Extended-Release tablet?? hydrOXYzine HCl (ATARAX) 25 mg tablet?? furosemide (LASIX) 20 mg tablet?? Potassium Gluconate 595 (99) mg tablet?? montelukast (SINGULAIR) 10 mg tablet?? EPINEPHrine (EPIPEN) 0.3 mg/0.3 mL (1:1,000) injection?? lancets (MICROLET LANCET)?? levothyroxine (SYNTHROID) 25 mcg tablet?? diclofenac 1 % topical (VOLTAREN) gel?? traMADol (ULTRAM) 50 mg tablet?? Past Medical History: Angioedema Anxiety Arthritis Asthma Blood transfusion Depression DM2 (diabetes mellitus, type 2) Hypertension Kidney infection Lower extremity edema ALEX (nonalcoholic steatohepatitis) Morbid obesity, unspecified obesity type PCOS (polycystic ovarian syndrome) Restless legs syndrome Restrictive lung disease YESSI (obstructive sleep apnea) Subclinical hypothyroidism Narcolepsy Past Surgical History: Colonoscopy Eye surgery IR Liver biopsy percutaneous Percutaneous biopsy liver Family History: Depression (mother, father) Dementia (mother) Hypertension (mother, father) Cancer- lung, liver, spine (mother) Diabetes (mother, father) Glaucoma (mother) Cerebrovascular Disease (mother) Cancer - breast (sister) Physical Exam Patient Vitals for the past 24 hrs: BP Temp Temp src Pulse Resp SpO2 Height Weight 11/24/21 0045 130/88 -- -- 78 -- 94 % -- -- 11/24/21 0030 133/76 -- -- 83 -- 94 % -- -- 11/24/21 0020 129/66 -- -- -- -- 95 % -- -- 11/23/21 2345 -- -- -- 76 -- 95 % -- -- 11/23/21 2315 -- -- -- -- -- 95 % -- -- 11/23/21 2300 136/73 -- -- 75 -- 96 % -- -- 11/23/21 2245 (!) 140/79 -- -- 67 -- 95 % -- -- 11/23/21 2148 139/75 98.4 ??F (36.9 ??C) Oral 78 18 95 % 1.6 m (5' 3) 88.9 kg (196 lb) Physical Exam Vitals reviewed. Constitutional: Appearance: She is obese. Eyes: General: No scleral icterus. Extraocular Movements: Extraocular movements intact. Cardiovascular: Rate and Rhythm: Normal rate and regular rhythm. Pulmonary: Effort: Pulmonary effort is normal. Abdominal: General: Abdomen is flat and protuberant. Palpations: Abdomen is soft. Tenderness: There is abdominal tenderness in the suprapubic area. Hernia: No hernia is present. Genitourinary: Comments: There is small amount of blood coming from the cervical os. No abnormal masses or vaginalbleeding. Skin: General: Skin is warm. Capillary Refill: Capillary refill takes less than 2 seconds. Neurological: General: No focal deficit present. Mental Status: She is alert and oriented to person, place, and time. Psychiatric: Mood and Affect: Mood is anxious. Emergency Department Course ECG: ECG taken at 0123, ECG read at 0126 Normal sinus rhythm Nonspecific T wave abnormality Abnormal ECG Rate 71 bpm. TX interval 140 ms. QRS duration 82 ms. QT/QTc 408/443 ms. P-R-T axes 49 8 48. Imaging: US Pelvic Complete with Transvaginal Final Result IMPRESSION: 1. Anteverted postmenopausal uterus with mildly prominent and heterogeneous endometrium. Please correlate clinically. 2. Normal right ovary, with normal Doppler vascularity. Left ovary obscured due to bowel gas. 3. No free fluid in the dependent pelvis. Report per radiology Laboratory: Labs Ordered and Resulted from Time of ED Arrival to Time of ED Departure ROUTINE UA WITH MICROSCOPIC REFLEX TO CULTURE - Abnormal Result Value Color Urine Light Yellow Appearance Urine Clear Glucose Urine Negative Bilirubin Urine Negative Ketones Urine Trace (*) Specific [place] Urine 1.031 Blood Urine Trace (*) pH Urine 5.5 Protein Albumin Urine Negative Urobilinogen Urine Normal Nitrite Urine Negative Leukocyte Esterase Urine Negative Mucus Urine Present (*) RBC Urine 15 (*) WBC Urine <1 Squamous Epithelials Urine <1 BASIC METABOLIC PANEL - Abnormal Sodium 139 Potassium 4.1 Chloride 107 Carbon Dioxide (CO2) 26 Anion Gap 6 Urea Nitrogen 23 Creatinine 0.51 (*) Calcium 8.7 Glucose 195 (*) GFR Estimate >90 HCG QUALITATIVE - Normal hCG Serum Qualitative Negative TROPONIN I - Normal Troponin I High Sensitivity 4 CBC WITH PLATELETS AND DIFFERENTIAL WBC Count 8.5 RBC Count 4.57 Hemoglobin 13.0 Hematocrit 39.5 MCV 86 MCH 28.4 MCHC 32.9 RDW 13.6 Platelet Count 196 % Neutrophils 46 % Lymphocytes 46 % Monocytes 6 % Eosinophils 0 % Basophils 1 % Immature Granulocytes 1 NRBCs per 100 WBC 0 Absolute Neutrophils 3.9 Absolute Lymphocytes 4.0 Absolute Monocytes 0.5 Absolute Eosinophils 0.0 Absolute Basophils 0.0 Absolute Immature Granulocytes 0.0 Absolute NRBCs 0.0 TYPE AND SCREEN, ADULT ABO/RH(D) B NEG Antibody Screen Negative SPECIMEN EXPIRATION DATE WET PREPARATION ABO/RH TYPE AND SCREEN Procedures: Emergency Department Course: Reviewed: I reviewed nursing notes, vitals, past medical history, Care Everywhere and MIIC Assessments: 2203 I obtained history and examined the patient as noted above. 49 I rechecked the patient and explained findings. Consults: [address] Hawkins with the Hospitalist Service on the phone. Interventions: 2242 ketorolac (TORADOL) injection 15 mg, IV Disposition: The patient was admitted to the hospital under the care of Dr. Hawkins. Impression & Plan Medical Decision Making: Patient presents with abnormal vaginal bleeding and self-described weakness and dizziness. I dizziness sounds like she feels like she is going to collapse or faint. Patient is well-appearing with normal vitals orthostatics are normal patient's had abnormal vaginal bleeding which is quite concerning due to patient's age of 66. Pelvic exam does not identify a vaginal mass but does identify a small amount of blood coming from the cervical os. Ultrasound is performed that does show some thickening of the uterine wall but no significant mass noted no major ovarian cyst. Patient was evaluated thoroughly with an EKG and further testing for syncope including white count and electrolytes and troponin all of which were normal. Patient was advised of this and recommended discharge but patient then advised that she feels unsafe at home and cannot take care of herself or get into her house that she feels like she is going to collapse. Due to lack of ER findings we will admit on observation as patient is on a disposition will do home at this time. 1 could consider serial hemoglobins but doubt symptomatic anemia in the setting of a hemoglobin of 13 and negative orthostatics. 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 Patient was admitted on observation care was discussed with Manju Hawkins MD. Diagnosis: ICD-10-CM 1. Generalized muscle weakness M62.81 2. Vaginal bleeding N93.9 Discharge Medications: Discharge Medication List as of 11/24/2021 12:11 PM Scribe Disclosure: Chhaya Barron, am serving as a scribe at 10:04 PM on 11/23/2021 to document services personally performed by Roscoe Chisholm MD based on my observations and the provider's statements to me. Roscoe Chisholm MD 11/24/21 182 documented in this encounter Miscellaneous Notes Plan of Care - Chyna Cooper PT - 11/24/2021 12:00 PM CDT PT: Order received; chart reviewed; per conversation with evaluating OT and patient, she is at or near her baseline with no current PT needs identified; patient in process of discharge to home. Will complete current order. Plan of Care - Anna Wilson OT - 11/24/2021 11:07 AM CDT Occupational Therapy Discharge Summary Reason for therapy discharge: All goals and outcomes met, no further needs identified. Progress towards therapy goal(s). See goals on Care Plan in [facility] electronic health record for goal details. Goals met Therapy recommendation(s): No further therapy is recommended. Plan of Care - Maren Gonzalez RN - 11/24/2021 6:27 AM CDT Goal Outcome Evaluation: Pt is alert and oriented, has not gotten up for me. Pt denies significant pain. Pt denies dizzinesswhile in bed. Pt here under observation status, will have PT/OT today. documented in this encounter Plan of Treatment Upcoming Encounters Date Type Specialty Care Team Description 05/19/2022 Office Visit [facility] [id number] [facility] [place] [place] [address] (Wo rk) 08/02/2022 Office Visit Neurology Yair Campos MD [address] [place], [place] [id number] (Wo rk) documented as of this encounter Procedures Procedure Name Priority Date/Time Associated Comments Diagnosis CBC WITH PLATELETS STAT 11/24/2021 9:18 AM Res ults for this CDT procedure are i n the results section. GLUCOSE BY METER STAT 11/24/2021 8:09 AM Resul ts for this CDT procedure are i n the results section. COVID-19 VIRUS STAT 11/24/2021 1:51 AM Results for this (CORONAVIRUS) BY PCR CDT procedu re are in the results section. EKG 12-LEAD, TRACING STAT 11/24/2021 1:23 AM R esults for this ONLY CDT procedure are i n the results section. US PELVIC STAT 11/24/2021 12:17 Results for this TRANSABDOMINAL AND AM CDT procedure are in TRANSVAGINAL the results section. ROUTINE UA WITH STAT 11/23/2021 10:45 Results for this MICROSCOPIC REFLEX TO PM CDT proced ure are in CULTURE the results section. EXTRA TUBE STAT 11/23/2021 10:35 Results for this PM CDT procedure are i n the results section. EXTRA PURPLE TOP TUBE STAT 11/23/2021 10:35 Re sults for this PM CDT procedure are i n the results section. EXTRA GREEN TOP STAT 11/23/2021 10:35 Results for this (LITHIUM HEPARIN) TUBE PM CDT proce dure are in the results section. EXTRA BLUE TOP TUBE STAT 11/23/2021 10:35 Resu lts for this PM CDT procedure are i n the results section. CBC WITH PLATELETS AND STAT 11/23/2021 10:35 R esults for this DIFFERENTIAL PM CDT procedure are i n the results section. TYPE AND SCREEN, ADULT STAT 11/23/2021 10:35 R esults for this PM CDT procedure are i n the results section. CBC WITH PLATELETS & STAT 11/23/2021 10:35 Res ults for this DIFFERENTIAL PM CDT procedure are i n the results section. TROPONIN I STAT 11/23/2021 10:35 Results for this PM CDT procedure are i n the results section. HCG QUALITATIVE STAT 11/23/2021 10:35 Results for this PM CDT procedure are i n the results section. ABO/RH TYPE AND SCREEN STAT 11/23/2021 10:35 R esults for this PM CDT procedure are i n the results section. BASIC METABOLIC PANEL STAT 11/23/2021 10:35 Re sults for this PM CDT procedure are i n the results section. documented in this encounter Results CBC with platelets (11/24/2021 9:18 AM CDT) P athologist Signature WBC Count 7.7 4.0 - 11.0 11/24/2021 [facility] 10e3/uL 9:45 AM CDT RBC Count 4.63 3.80 - 11/24/2021 [facility] 5.20 9:45 AM CDT 10e6/uL Hemoglobin 13.1 11.7 - 11/24/2021 [facility] 15.7 g/dL 9:45 AM CDT Hematocrit 40.7 35.0 - 11/24/2021 [facility] 47.0 % 9:45 AM CDT MCV 88 78 - 100 11/24/2021 [facility] fL 9:45 AM CDT MCH 28.3 26.5 - 11/24/2021 [facility] 33.0 pg 9:45 AM CDT MCHC 32.2 31.5 - 11/24/2021 [facility] 36.5 g/dL 9:45 AM CDT RDW 13.7 10.0 - 11/24/2021 [facility] 15.0 % 9:45 AM CDT Platelet Count 191 150 - 450 11/24/2021 [facility] 10e3/uL 9:45 AM CDT Specimen Anatomical Collection Method / Collection Time Recei bobbi Time (Source) Location / Volume Laterality Blood STRUCTURE OF RIGHT Venipuncture / 11/24/2021 9:18 05/07/2021 9:43 UPPER LIMB / Unknown AM CDT AM CDT Unknown Dima Skelton MD LAB - BLOOD ORDERABLES Performing Organization Address City/State/ZIP Code Phon [place] [address] Care [facility] [address] Lab (1st floor, no room number) (ABNORMAL) Glucose by meter (11/24/2021 8:09 AM CDT) P athologist Signature GLUCOSE BY 244 (H) 70 - 99 11/24/2021 LABORATORY METER POCT mg/dL 8:17 AM CDT POC Specimen (Source) Anatomical Collection Method Collection Time Re ceived Time Location / / Volume Laterality Blood, Capillary BLOOD SPECIMEN / 11/24/2021 8:09 05/07/2021 8:17 Unknown AM CDT AM CDT Cammie Bustamante MD LAB - BEAKER POCT Performing Organization Address City/[facility]/ZIP Code Phon e [place] [address] Care [facility] [address] Lab (1st floor, no room number) Asymptomatic COVID-19 Virus (Coronavirus) by PCR Nasopharyngeal (11/24/2021 1:51 AM CDT) Analysis Performed At Patho logist Time Signature SARS CoV2 PCR Negative Negative 11/24/2021 LABORATORY 2:46 AM CDT Comment: NEGATIVE: SARS-CoV-2 (COVID-19) RNA not detected, presumed negative. Specimen Anatomical Location / Collection Method Collection Louie e Received Time (Source) Laterality / Volume Swab NASOPHARYNGEAL Non-blood 11/24/2021 1:51 11/24/2021 1:53 STRUCTURE / Unknown Collection / AM CDT AM CDT Unknown Narrative LABORATORY - 11/24/2021 2:46 AM CDT Testing was performed using the Xpert Xpress SARS-CoV-2 Assay on the [employer]. A dditional information about this Emergency Use Authorization (EUA) a ssay can be found via the Lab Guide. This test should be ordered for t he detection of SARS-CoV-2 in individuals who meet SARS-CoV-2 clinical and/or epidemiological criteria. Test performance is unknown in asymptomatic patients. This test is for in vitro diagnostic use unde r the FDA EUA for laboratories certified under CLIA to per form high complexity testing. This test has not been FDA cleared or ap proved. A negative result does not rule out the presence of PCR in hibitors in the specimen or target RNA in concentration below the li sarahi of detection for the assay. The possibility of a false negati ve should be considered if the patient's recent exposure or clinica l presentation suggests COVID-19. This test was validated by the [facility]. This laboratory is certified under the Clinical Laboratory Improvement Amendments of 1988 (CLIA-88) as qualified to perform high complexity laboratory testing. Roscoe Chisholm MD LAB - MICRO GENERAL ORDERABL ES Performing Organization Address City/State/ZIP [place] [phone] Care Lab [address] Lab (1st floor, no room number) EKG 12 lead (11/24/2021 1:23 AM CDT) Component Value Ref Range Test Analysis Performed Pathologis t Method Time At Signature Systolic Blood mmHg RADIOLOGY Pressure RESULTS Diastolic Blood mmHg RADIOLOGY Pressure RESULTS Ventricular Rate 71 BPM RADIOLOGY RESULTS Atrial Rate 71 BPM RADIOLOGY RESULTS TX Interval 140 ms RADIOLOGY RESULTS QRS Duration 82 ms RADIOLOGY RESULTS QT 408 ms RADIOLOGY RESULTS QTc 443 ms RADIOLOGY RESULTS P [place] 49 degrees RADIOLOGY RESULTS R AXIS 8 degrees RADIOLOGY RESULTS T [place] 48 degrees RADIOLOGY RESULTS Interpretation Sinus rhythm RADIOLOGY ECG Nonspecific T wave abnormality RESULTS Abnormal ECG When compared with ECG of 09-SEP-2018 10:53, No significant change was found Specimen Anatomical Collection Method Collection Time Receive d Time (Source) Location / / Volume Laterality 11/24/2021 1:23 AM 4:48 CDT AM CDT Roscoe Chisholm MD ECG ORDERABLES Performing Organization Address City/State/ZIP Code Phon e Number RADIOLOGY RESULTS US Pelvic Complete with Transvaginal (11/24/2021 12:17 AM CDT) Anatomical Region Laterality Modality Abdomen/Pelvis Ultrasound Specimen (Source) Anatomical Collection Method Collection Time Re ceived Time Location / / Volume Laterality 11/23/2021 11:55 PM CDT Impressions 11/24/2021 12:27 AM CDT IMPRESSION: 1. ??Anteverted postmenopausal uterus wi th mildly prominent and heterogeneous endometrium. Please correlate clinically. 2. ??Normal right ovary, with normal Dop pler vascularity. Left ovary obscured due to bowel gas. 3. ??No free fluid in the dependent pelv is. Narrative 11/24/2021 12:27 AM CDT EXAM: US PELVIC TRANSABDOMINAL AND TRANSVAGINAL LOCATION: [facility] DATE/TIME: 11/23/2021 11:55 PM INDICATION: Vaginal bleeding. COMPARISON: CT abdomen and pelvis withou t IV contrast 08/16/2019. TECHNIQUE: Transabdominal scans were per formed. Endovaginal ultrasound was performed to better visualize the adnexa. FINDINGS: UTERUS: 3.9 x 2.2 x 4.0 cm. Postmenopaus al uterus. No fibroids. ENDOMETRIUM: 0.6 cm on endovaginal study (postmenopausal state). Mildly heterogeneous endometrium. Please correlate clinically. RIGHT OVARY: 1.5 x 2.1 x 1.5 cm. Normal right ovary, with normal Doppler vascularity. LEFT OVARY: Not visualized due to bowel gas. No free fluid in the dependent pelvis. Procedure Note Ronnie Cabrera MD - 11/24/2021Formatt ing of this note might be different from the original. EXAM: US PELVIC TRANSABDOMINAL AND TRANS VAGINAL LOCATION: [facility] DATE/TIME: 11/23/2021 11:55 PM INDICATION: Vaginal bleeding. COMPARISON: CT abdomen and pelvis withou t IV contrast 08/16/2019. TECHNIQUE: Transabdominal scans were per formed. Endovaginal ultrasound was performed to better visualize the adnexa. FINDINGS: UTERUS: 3.9 x 2.2 x 4.0 cm. Postmenopaus al uterus. No fibroids. ENDOMETRIUM: 0.6 cm on endovaginal study (postmenopausal state). Mildly heterogeneous endometrium. Please correlate clinically. RIGHT OVARY: 1.5 x 2.1 x 1.5 cm. Normal right ovary, with normal Doppler vascularity. LEFT OVARY: Not visualized due to bowel gas. No free fluid in the dependent pelvis. IMPRESSION: 1. Anteverted postmenopausal uterus with mildly prominent and heterogeneous endometrium. Please correlate clinically. 2. Normal right ovary, with normal Doppl er vascularity. Left ovary obscured due to bowel gas. 3. No free fluid in the dependent pelvis . Roscoe Chisholm MD IMG US ORDERABLES (ABNORMAL) UA with Microscopic reflex to Culture (11/23/2021 10:45 PM CDT) [facility] Method Time Signature Color Urine Light Colorless, 11/23/2021 LABORATORY Yellow Straw, 11:31 PM Light CDT Yellow, Yellow Appearance Urine Clear Clear 11/23/2021 [facility] LABORATOR Y 11:31 PM CDT Glucose Urine Negative Negative 11/23/2021 LABORATORY mg/dL 11:31 PM CDT Bilirubin Urine Negative Negative 11/23/2021 LABORATORY 11:31 PM CDT Ketones Urine Trace (A) Negative 11/23/2021 LABORATORY mg/dL 11:31 PM CDT Specific [place] 1.031 1.003 - 11/23/2021 LABORATOR Y Urine 1.035 11:31 PM CDT Blood Urine Trace (A) Negative 11/23/2021 LABORATORY 11:31 PM CDT pH Urine 5.5 5.0 - 7.0 11/23/2021 LABORATORY 11:31 PM CDT Protein Albumin Negative Negative 11/23/2021 LABORATORY Urine mg/dL 11:31 PM CDT Urobilinogen Normal Normal, 2.0 11/23/2021 LABORATORY Urine mg/dL 11:31 PM CDT Nitrite Urine Negative Negative 11/23/2021 LABORATORY 11:31 PM CDT Leukocyte Negative Negative 11/23/2021 LABORATORY Esterase Urine 11:31 PM CDT Mucus Urine Present (A) None Seen 11/23/2021 LABORATORY /LPF 11:31 PM CDT RBC Urine 15 (H) <=2 /HPF 11/23/2021 LABORATORY 11:31 PM CDT WBC Urine <1 <=5 /HPF 11/23/2021 [facility] 11:31 PM CDT Squamous <1 <=1 /HPF 11/23/2021 LABORATORY Epithelials 11:31 PM Urine CDT Specimen Anatomical Collection Method Collection Time Receive d Time (Source) Location / / Volume Laterality Urine MID-STREAM URINE Non-blood 11/23/2021 10:45 022 SPECIMEN / Unknown Collection / PM CDT 10:51 PM CDT Unknown Narrative [facility] - 11/23/2021 11:31 PM CDT Urine Culture not indicated Roscoe Chisholm MD LAB - URINE ORDERABLES Performing Organization Address City/State/Z[place] [address] Care Lab [address] Lab (1st floor, no room number) Troponin I (now) (11/23/2021 10:35 PM CDT) P athologist Signature Troponin I High 4 <54 ng/L 11/24/2021 [facility] Sensitivity 1:13 AM CDT Comment: This Troponin-I result was obta ined using a Siemens Dimension [place] High Sensitivity Troponin-I assay (TNIH). Eff ective 06/08/21, nine labs/sites in the [facility] switched from a Siemens [place] Contemporary Troponin I assay (CTNI) to a Siemens [place] High-Sensitivity Troponi n I assay (TNIH). Specimen Anatomical Collection Method / Collection Time Recei bobbi Time (Source) Location / Volume Laterality Blood STRUCTURE OF RIGHT Venipuncture / 11/23/2021 10:35 04/2022 UPPER LIMB / Unknown PM CDT 10:44 PM CDT Unknown Roscoe Chisholm MD LAB - BLOOD ORDERABLES Performing Organization Address City/[facility]/ZIP [place] [address] Care Lab [address] Lab (1st floor, no room number) Adult Type and Screen (11/23/2021 10:35 PM CDT) Patholo gist Method Time Signature ABO/RH(D) B NEG 11/23/2021 RH BLOOD 10:18 PM BANK CDT Antibody Negative Negative 11/23/2021 RH BLOOD Screen 10:18 PM BANK CDT SPECIMEN [id number] 11/23/2021 RH BLOOD EXPIRATION 10:18 PM BANK DATE CDT Specimen Anatomical Collection Method / Collection Time Recei bobbi Time (Source) Location / Volume Laterality Blood STRUCTURE OF RIGHT Venipuncture / 11/23/2021 10:35 04/2022 UPPER LIMB / Unknown PM CDT 10:44 PM CDT Unknown Roscoe Chisholm MD LAB - BLOOD BANK TEST ORDER Performing Organization Address City/State/ZIP Code Phon e Number BLOOD BANK [address] [place] [address] Extra Purple Top Tube (11/23/2021 10:35 PM CDT) athologist Signature Hold Specimen JI 11/23/2021 [facility] 11:48 PM CDT Specimen Anatomical Collection Method / Collection Time Recei bobbi Time (Source) Location / Volume Laterality Blood STRUCTURE OF RIGHT Venipuncture / 11/23/2021 10:35 04/2022 UPPER LIMB / Unknown PM CDT 10:44 PM CDT Unknown Roscoe Chisholm MD LAB - BLOOD ORDERABLES Performing Organization Address City/[facility]/ZIP Code Phon [place] [phone] Care Lab [address] Lab (1st floor, no room number) Extra Green Top ([place] Heparin) Tube (11/23/2021 10:35 PM CDT) athologist Signature Hold Specimen [facility] 11/23/2021 [facility] 11:48 PM CDT Specimen Anatomical Collection Method / Collection Time Recei bobbi Time (Source) Location / Volume Laterality Blood STRUCTURE OF RIGHT Venipuncture / 11/23/2021 10:35 04/2022 UPPER LIMB / Unknown PM CDT 10:44 PM CDT Unknown Roscoe Chisholm MD LAB - BLOOD ORDERABLES Performing Organization Address City/[facility]/ZIP Code [place] [address] Care Lab [address] Lab (1st floor, no room number) Extra Blue Top Tube (11/23/2021 10:35 PM CDT) athologist Signature Hold Specimen JI 11/23/2021 [facility] 11:48 PM CDT Specimen Anatomical Collection Method / Collection Time Recei bobbi Time (Source) Location / Volume Laterality Blood STRUCTURE OF RIGHT Venipuncture / 11/23/2021 10:35 04/2022 UPPER LIMB / Unknown PM CDT 10:44 PM CDT Unknown Roscoe Chisholm MD LAB - BLOOD ORDERABLES Performing Organization Address City/State/ZIP Code Ph[place] [phone] Care Lab [address] Lab (1st floor, no room number) CBC with platelets and differential (11/23/2021 10:35 PM CDT) Analysis Performed At Patho logist Time Signature WBC Count 8.5 4.0 - 11.0 11/23/2021 [facility] 10e3/uL 10:51 PM CDT RBC Count 4.57 3.80 - 11/23/2021 [facility] 5.20 10:51 PM CDT 10e6/uL Hemoglobin 13.0 11.7 - 11/23/2021 [facility] 15.7 g/dL 10:51 PM CDT Hematocrit 39.5 35.0 - 11/23/2021 [facility] 47.0 % 10:51 PM CDT MCV 86 78 - 100 11/23/2021 [facility] fL 10:51 PM CDT MCH 28.4 26.5 - 11/23/2021 [facility] 33.0 pg 10:51 PM CDT MCHC 32.9 31.5 - 11/23/2021 [facility] 36.5 g/dL 10:51 PM CDT RDW 13.6 10.0 - 11/23/2021 [facility] 15.0 % 10:51 PM CDT Platelet Count 196 150 - 450 11/23/2021 [facility] 10e3/uL 10:51 PM CDT % Neutrophils 46 % 11/23/2021 [facility] 10:51 PM CDT % Lymphocytes 46 % 11/23/2021 [facility] 10:51 PM CDT % Monocytes 6 % 11/23/2021 [facility] 10:51 PM CDT % Eosinophils 0 % 11/23/2021 [facility] 10:51 PM CDT % Basophils 1 % 11/23/2021 [facility] 10:51 PM CDT % Immature 1 % 11/23/2021 [facility] Granulocytes 10:51 PM CDT NRBCs per 100 WBC 0 <1 /100 11/23/2021 [facility] RY 10:51 PM CDT Absolute 3.9 1.6 - 8.3 11/23/2021 [facility] Neutrophils 10e3/uL 10:51 PM CDT Absolute 4.0 0.8 - 5.3 11/23/2021 [facility] Lymphocytes 10e3/uL 10:51 PM CDT Absolute 0.5 0.0 - 1.3 11/23/2021 [facility] Monocytes 10e3/uL 10:51 PM CDT Absolute 0.0 0.0 - 0.7 11/23/2021 [facility] Eosinophils 10e3/uL 10:51 PM CDT Absolute 0.0 0.0 - 0.2 11/23/2021 [facility] Basophils 10e3/uL 10:51 PM CDT Absolute Immature 0.0 <=0.4 11/23/2021 [facility] Granulocytes 10e3/uL 10:51 PM CDT Absolute NRBCs 0.0 10e3/uL 11/23/2021 [facility] 10:51 PM CDT Specimen Anatomical Collection Method / Collection Time Recei bobbi Time (Source) Location / Volume Laterality Blood STRUCTURE OF RIGHT Venipuncture / 11/23/2021 10:35 04/2022 UPPER LIMB / Unknown PM CDT 10:44 PM CDT Unknown Roscoe Chisholm MD LAB - BLOOD ORDERABLES Performing Organization Address City/State/ZIP [place] [phone] [facility] [address] Lab (1st floor, no room number) HCG QUALitative (blood) (11/23/2021 10:35 PM CDT) [facility] Method Time Signature hCG Serum Negative Negative NITIN 11/23/2021 [facility] Qualitative 11:14 PM CDT Comment: This test is for screening purp oses. Results should be interpreted along with the clinical picture. Confirmation testing is available if warranted by ordering [id number], HCG Quantitative . Specimen Anatomical Collection Method / Collection Time Recei bobbi Time (Source) Location / Volume Laterality Blood STRUCTURE OF RIGHT Venipuncture / 11/23/2021 10:35 04/2022 UPPER LIMB / Unknown PM CDT 10:45 PM CDT Unknown Roscoe Chisholm MD LAB - BLOOD ORDERABLES Performing Organization Address City/State/ZIP Code [place] [phone] [facility] [address] Lab (1st floor, no room number) (ABNORMAL) Basic metabolic panel (11/23/2021 10:35 PM CDT) [facility] Method Time Signature Sodium 139 133 - 144 11/23/2021 [facility] mmol/L 11:13 PM CDT Potassium 4.1 3.4 - 5.3 11/23/2021 [facility] mmol/L 11:13 PM CDT Chloride 107 94 - 109 11/23/2021 [facility] mmol/L 11:13 PM CDT Carbon Dioxide 26 20 - 32 11/23/2021 [facility] (CO2) mmol/L 11:13 PM CDT Anion Gap 6 3 - 14 11/23/2021 [facility] mmol/L 11:13 PM CDT Urea Nitrogen 23 7 - 30 11/23/2021 [facility] mg/dL 11:13 PM CDT Creatinine 0.51 (L) 0.52 - 11/23/2021 [facility] 1.04 mg/dL 11:13 PM CDT Calcium 8.7 8.5 - 10.1 11/23/2021 [facility] mg/dL 11:13 PM CDT Glucose 195 (H) 70 - 99 11/23/2021 [facility] mg/dL 11:13 PM CDT GFR Estimate >90 >60 11/23/2021 [facility] mL/min/1.7 11:13 PM CDT 3m2 Comment: Effective July 06, 2021 eGF Rcr in adults is calculated using the 2020 CKD-EPI creatinine equation which includ es age and gender (Karri et al., NEJM, DOI: 10.1056/MEVOav9730210) Specimen Anatomical Collection Method / Collection Time Recei bobbi Time (Source) Location / Volume Laterality Blood STRUCTURE OF RIGHT Venipuncture / 11/23/2021 10:35 04/2022 UPPER LIMB / Unknown PM CDT 10:44 PM CDT Unknown Roscoe Chisholm MD LAB - BLOOD ORDERABLES Performing Organization Address City/State/ZIP Code Phon [place] [phone] [facility] [address] Lab (1st floor, no room number) documented in this encounter Visit Diagnoses Diagnosis Generalized muscle weakness Muscle weakness (generalized) Vaginal bleeding Other specified noninflammatory disorder of vagina Vaginal bleeding Other specified noninflammatory disorder of vagina Generalized muscle weakness Muscle weakness (generalized) documented in this encounter Admitting Diagnoses Diagnosis Vaginal bleeding Other specified noninflammatory disorder of vagina documented in this encounter Administered Medications Inactive Administered Medications - up to 3 most recent administrations Medication Order MAR Action Action Date Dose Rate Site dextrose 50 % injection 25-50 mL 25-50 mL, Intravenous, EVERY 15 MIN PRN, low blood sug ar, Administer over 1-5 Minutes, Starting on Mon11/24/21 at 0226 , Use if have IV access, BG less than 70 mg/dL and meet dose criteria below: Dose if conscious and alert (or disorientated) and NPO = 25 mL Dose if unconscious / no t alert = 50 mL Give first dose for initial blood glucose less than 70 mg/dL. If blood glucose at 15 minute recheck is less than or equal to 100 mg/dL continue to a dminister carbohydrate treatment every 15 minutes, as needed, based on blood gluco se and assessment parameters until blood glucose level is above 100 mg/dL. Vesicant. glucagon injection 1 mg 1 mg, Subcutaneous, EVERY 15 MIN PRN, low blood sugar, May repeat x 1 only, Starting on Mon11/24/21 at 0226, May giv e SQ or IM. ONLY use glucagon IF patient has NO IV access AND is UNABLE to swallo w AND blood glucose is LESS than or EQUAL to 50 mg/dL. glucose gel 15-30 g 15-30 g, Oral, EVERY 15 MIN PRN, low blo od sugar, Starting on Mon11/24/21 at 0226, Give first dose for initial blood glucose less than 70 mg/dL per the dosing instructions below. If blood glucose at 15 minute rechecks is still less than or equal to 100 mg/dL, continue to administ er doses per blood glucose parameters every 15 minutes, as needed, until blood glucose level is ab ove 100 mg/dL. Dosing Instructions: ~If patient is conscious a nd able to swallow and NO enteral tube For initial BG 51-69mg/dL OR 15 minute reche ck BG 51- 100 mg/dL - give 15 g For BG less than or equal to 50 mg/dL - give 30 g ~ If Enteral tube For initial BG 51-69mg/dL OR 15 minute recheck BG 51- 100 mg/dL - give apple juice 120 mL (4 oz or 15 g of CHO) via enteral tube For BG less than o r equal to 50 mg/dL - Give apple juice 240 mL (8 oz or 30 g of CHO) via enteral tub e ~Oral gel is preferable for conscious and able to swallow patient. ~IF gel unavail able or patient refuses may provide apple juice per Enteral tube dosing instructio ns. Document juice on I and O flowsheet. insulin aspart (NovoLOG) injection (RAPID Given 11/24/2021 8:54 AM CDT 3 Units ACTING) 1-7 Units, Subcutaneous, 3 TIMES DAILY BEFORE MEALS, First dose on Mon11/24/21 at 0730, Correction Scale - MEDIUM INSULIN RESISTANCE DOSING Do Not give Correction Insulin if Pre-Meal BG less than 140. For Pre-Meal BG 140 - 189 give 1 unit. For Pre-Meal BG 190 - 239 give 2 units. For Pre-Meal BG 240 - 289 give 3 units. For Pre-Meal BG 290 - 339 give 4 units. For Pre-Meal BG 340- 399 give 5 units. For Pre-Meal BG 400-449 give 6 units For Pre-Meal BG greater than or equal to 450 give 7 units. To be given with prandial insulin, and based on pre-meal blood glucose. Notify provider if glucose greater than or equal to 350 mg/dL after administration of correction dose. If given at mealtime, administer within 30 minutes of start of meal. ketorolac (TORADOL) injection 15 mg Given 11/23/2021 10:43 PM CDT 15 mg 15 mg, Intravenous, ONCE, On Mon11/23/21 at 2220, For 1 dose, Can cause pain on injection. If ordered intravenously (IV) : administer through a running maintenance fluid over 1 minute followed by a flush. If patient complains of pain on injection, may dilute 15-30 mg in 5 mL and push over 1 to 2 minutes. ondansetron (ZOFRAN ODT) ODT tab 4 mg 4 mg, Oral, EVERY 6 HOURS PRN, nausea, v omiting, Starting on Mon11/24/21 at 0226, This is Step 1 of nausea and vomiting management. If n ausea not resolved in 15 minutes, go to Step 2 prochlorperazine ( COMPAZINE). With dry hands, peel back foil backing and gently remove tablet. Do not push oral disintegrating tablet through foil backing. Administer immediately on tongue and ora l disintegrating tablet dissolves in seconds, then swallow with saliva. Liquid not required. ondansetron (ZOFRAN) injection 4 mg 4 mg, Intravenous, EVERY 6 HOURS PRN, nausea, vomiting , Administer over 2-5 Minutes, Starting on Mon11/24/21 at 0226 , Give IF patient unable to tolerate oral medication. This is Step 1 of nausea and vomiting shorty sejal. If nausea not resolved in 15 minutes, go to Step 2 prochlorperazine (COMPAZINE). Irritant. documented in this encounter Active and Recently Administered Medications Times are shown in CDT. Scheduled Medication Order 11/22/2021 11/23/2021 11/24/2021 busPIRone (BUSPAR) tablet 10 mg 0840 (Canceled Entry - Provider: Orders Generic Provider - Comment: Automatically canceled at discontinue of medication order) 10 mg, Oral, 2 TIMES DAILY, First dose on Mon11/24/21 at 0840 dapagliflozin (FARXIGA) tablet 10 mg 0840 (Canceled Entry - Provider: Orders Generic Provider - Comment: Automatically canceled at discontinue of medication order) 10 mg, Oral, EVERY MORNING, First dose on Mon11/24/21 at 0840 glipiZIDE (GLUCOTROL XL) 24 hr tablet 5 mg 0840 (Canceled Entry - Provider: Orders Generic Provider - Comment: Automatically canceled at discontinue of medication order) 5 mg, Oral, DAILY, First dose on 11/14 at 0840, DO NOT CRUSH. Take before or with meals. insulin aspart (NovoLOG) injection (RAPID ACTING) 0824 (Canceled Entry - Provider: Ozzy Morgan - Comment: ordered breakfast - moved dose to [phone] (Given - Provider: Ozzy Morgan)1200 (Canceled Entry - Provider: Orders Generic Provider - Comment: Automatically canceled at discont 1-7 Units, Subcutaneous, 3 TIMES DAILY B EFORE MEALS, First dose on Mon11/24/21 at 0730, Correction Scale - MEDIUM INSULIN RESISTANCE DOSING Do Not give Correction Insulin if Pre-Meal BG less than 140. F inue of medication order) or Pre-Meal BG 140 - 189 give 1 unit. Fo r Pre-Meal BG 190 - 239 give 2 units. For Pre-Meal BG 240 - 289 give 3 units. For Pre-Meal BG 290 - 339 give 4 units. For Pre-Meal BG 340- 399 give 5 units. For P re-Meal BG 400-449 give 6 units For Pre- Meal BG greater than or equal to 450 give 7 units. To be given with prandial insulin, and based on pre-meal blood glucose. Notify provider if glucose greater than or equal to 350 mg/dL after administrat ion of correction dose. If given at mealtime, administer within 30 minutes of start of meal. insulin aspart (NovoLOG) injection (RAPID ACTING) 0228 (Not Given - Provider: Maren Gonzalez RN - Reason: Order parameters not met) 1-5 Units, Subcutaneous, AT BEDTIME, Fir st dose on Mon11/24/21 at 0230, MEDIUM INSULIN RESISTANCE DOSING Do Not give Bedtime Correction Insulin if BG less than 200. For BG 200 - 249 give 1 units. For BG 250 - 299 give 2 units. For BG 300 - 34 9 give 3 units. For BG 350 -399 give 4 units. For BG greater than or equal to 400 give 5 units. Notify provider if glucose greater than or equal to 350 mg/dL afte r administration of correction dose. If given at mealtime, administer within 30 minutes of start of meal. ketorolac (TORADOL) injection 15 mg (COMPLETED) 3 (Given - Provider: Mishel Cannon RN) 15 mg, Intravenous, ONCE, On Mon11/23/21 at 2220, For 1 dose, Can cause pain on injection. If ordered intravenously (IV) : administer through a running maintenance fluid over 1 minute followed by a flus h. If patient complains of pain on injec tion, may dilute 15-30 mg in 5 mL and push over 1 to 2 minutes. levothyroxine (SYNTHROID/LEVOTHROID) tablet 50 mcg 0840 (Canceled Entry - Provider: Orders Generic Provider - Comment: Automatically canceled at discontinue of medication order) 50 mcg, Oral, DAILY, First dose on Mon at 0840, Separate oral administration of iron- or calcium-containing products and levothyroxine by at least 4 hours. metFORMIN (GLUCOPHAGE-XR) 24 hr tablet 1,500 mg 1,500 mg, Oral, DAILY WITH SUPPER, First dose on Mon11/24/21 at 1700, Do not crush. If the patient receives intravenous, iodinated contrast and patient GFR is greater than 60 mL/min, continue metformin. Contact provider for 'hold' or 'no hold ' instructions if no GFR or if GFR is less than 60 mL/min. montelukast (SINGULAIR) tablet 10 mg 10 mg, Oral, AT BEDTIME, First dose on Mon11/24/21 at 2200 rosuvastatin (CRESTOR) tablet 10 mg 0840 (Canceled Entry - Provider: Orders Generic Provider - Comment: Automatically canceled at discontinue of medication order) 10 mg, Oral, DAILY, First dose on Mon11/24/21 at 0840 PRN Medication Order 11/22/2021 11/23/2021 11/24/2021 dextrose 50 % injection 25-50 mL(Linked Group 1) 25-50 mL, Intravenous, EVERY 15 MIN PRN, low blood sugar, Administer over 1-5 Minutes, Starting on Mon11/24/21 at 0226, Use if have IV access, BG less than 70 mg/dL and meet dose criteria below: Dose if conscious and alert (or disorientated) and NPO = 25 mL Dose if unconscious / not alert = 50 mL Give first dose for initial blood glucose less than 70 mg/dL. If blood glucose at 15 minute recheck is les s than or equal to 100 mg/dL continue to administer carbohydrate treatment every 15 minutes, as needed, based on blood glucose and assessment parameters until blood glucose level is above 100 mg/dL. Vesicant. glucagon injection 1 mg(Linked Group 1) 1 mg, Subcutaneous, EVERY 15 MIN PRN, lo w blood sugar, May repeat x 1 only, Starting on Mon11/24/21 at 0226, May give SQ or IM. ONLY use glucagon IF patient has NO IV access AND is UNABLE to swallow AND blood glucose is LESS than or EQUAL to 50 mg/dL. glucose gel 15-30 g(Linked Group 1) 15-30 g, Oral, EVERY 15 MIN PRN, low blo od sugar, Starting on Mon11/24/21 at 0226, Give first dose for initial blood glucose less than 70 mg/dL per the dosing instructions below. If blood glucose at 15 minute rechecks is still less than or eq ual to 100 mg/dL, continue to administer doses per blood glucose parameters every 15 minutes, as needed, until blood glucose level is above 100 mg/dL. Dosing Inst ructions: ~If patient is conscious and a ble to swallow and NO enteral tube For initial BG 51-69mg/dL OR 15 minute recheck BG 51- 100 mg/dL - give 15 g For BG less than or equal to 50 mg/dL - give 30 g ~ If Enteral tube For initial BG 51-69mg/ dL OR 15 minute recheck BG 51- 100 mg/dL - give apple juice 120 mL (4 oz or 15 g of CHO) via enteral tube For BG less than or equal to 50 mg/dL - Give apple juice 240 mL (8 oz or 30 g of CHO) via entera l tube ~Oral gel is preferable for conscious and able to swallow patient. ~IF gel unavailable or patient refuses may provide apple juice per Enteral tube dosing i nstructions. Document juice on I and O flowsheet. melatonin tablet 1 mg 1 mg, Oral, AT BEDTIME PRN, sleep, Start ing on Mon11/24/21 at 0226, Do not give unless at least 6 hours of uninterrupted sleep is expected. ondansetron (ZOFRAN ODT) ODT tab 4 mg(Linked Group 2) 4 mg, Oral, EVERY 6 HOURS PRN, nausea, v omiting, Starting on Mon11/24/21 at 0226, This is Step 1 of nausea and vomiting management. If nausea not resolved in 15 minutes, go to Step 2 prochlorperazine (C OMPAZINE). With dry hands, peel back foi l backing and gently remove tablet. Do not push oral disintegrating tablet through foil backing. Administer immediately on tongue and oral disintegrating tablet d issolves in seconds, then swallow with saliva. Liquid not requir ed. ondansetron (ZOFRAN) injection 4 mg(Linked Group 2) 4 mg, Intravenous, EVERY 6 HOURS PRN, na usea, vomiting, Administer over 2-5 Minutes, Starting on Mon11/24/21 at 0226, Give IF patient unable to tolerate oral medication. This is Step 1 of nausea and vom iting management. If nausea not resolved in 15 minutes, go to Step 2 prochlorperazine (COMPAZINE). Irritant. Linked Groups Order Group 1: glucose gel 15-30 gJump to med 15-30 g, Oral, EVERY 15 MIN PRN, low blo od sugar, Starting on Mon11/24/21 at 0226
Give first dose for initial blood glucose less than 70 mg/dL per the dosing instructions below. If bl ood glucose at 15 minute rechecks is sti ll less than or equal to 100 mg/dL, continue to administer doses per blood glucose parameters every 15 minutes, as needed, until blood glucose level is above 100 mg/dL. Dosing Instructions:&n bsp;~If patient is conscious and able to swallow and NO enteral tube For initial BG 51-69mg/dL OR 15 minute recheck BG 51- 100 mg/dL - give 1 5 g For BG less than or equal to 50 mg/dL - give 30 g ~ If Enteral tube For initial BG 51-69mg/dL OR 15 minute recheck BG 51- 100 mg/dL - give apple juice 120 mL (4 oz or 15 g of CHO) via enteral tube For BG le ss than or equal to 50 mg/dL - Give apple juice 240 mL (8 oz or 30 g of CHO) via enteral tube ~Oral gel is preferable for conscious and able to swall ow patient. ~IF gel unavailable or patient refuses may provide apple juice per Enteral tube dosing instructions. Document juice on I and O flowsheet.
Or dextrose 50 % injection 25-50 mLJump to med 25-50 mL, Intravenous, EVERY 15 MIN PRN, low blood sugar, Administer over 1-5 Minutes, Starting on Mon11/24/21 at 0226
Use if have IV access, BG less than 70 mg/dL and meet dose criteria below: Dose if conscious and alert (or di sorientated) and NPO = 25 mL Dose if unconscious / not alert = 50 mL Give first dose for initial blood glucose less than 70&nb sp; mg/dL. If blood gluc ose at 15 minute recheck is less than or equal to 100 mg/dL continue to administer carbohydrate treatment every 15 minutes, as needed, based on blood glucose and assessment parameters until blood glucose level is above 100 mg/dL. Vesicant.
Or glucagon injection 1 mgJump to med 1 mg, Subcutaneous, EVERY 15 MIN PRN, lo w blood sugar, May repeat x 1 only, Starting on Mon11/24/21 at 0226
May give SQ or IM. ONLY use glucagon IF patient has NO IV access AND is UNABLE to swa llow AND blood glucose is LESS than or E QUAL to 50 mg/dL.
Group 2: ondansetron (ZOFRAN ODT) ODT tab 4 mgJump to med 4 mg, Oral, EVERY 6 HOURS PRN, nausea, v omiting, Starting on Mon11/24/21 at 0226
This is Step 1 of nausea and vomiting management. If nausea not resolved in 15 minutes, go to Step 2 prochlorperazine (COMPAZINE).&nb sp;With dry hands, peel back foil backing and gently remove tablet. Do not push oral disintegrating tablet through foil backing. Administer immediately on ton robinson and oral disintegrating tablet disso lves in seconds, then swallow with saliva. Liquid not required.
Or ondansetron (ZOFRAN) injection 4 mgJump to med 4 mg, Intravenous, EVERY 6 HOURS PRN, na usea, vomiting, Administer over 2-5 Minutes, Starting on Mon11/24/21 at 0226
Give IF patient unable to tolerate oral medication. This is Step 1 of nausea and vomiting management. If na usea not resolved in 15 minutes, go to Step 2 prochlorperazine (COMPAZINE). Irritant.
documented in this encounter Additional Health Concerns Assessment Noted Time PHQ-9 Depression Total Score: 8 01/07/2019 2:02 PM CDT documented as of this encounter Care Teams [employer] T[employer] Machine Relationship Specialty Start Date End Date Krystin Christie PCP - General Nurse Practitioner 09/18/19 SAURABH Engel DRYING MACHINE RECEIVER [address] [place], [place] [id number] Lior Sonja Ka Pharmacist 08/24/20 Dev, [facility] [address] [place] [phone] Sea Tsai MD Neurology 08/04/21 DO Aleks [address] [place], [place] [phone] Vidhi Paiz Assigned PCP 07/25/21 01/07/22 SAURABH Turner [employer]YING MACHINE RECEIVER [address] [place] [address] Sea Tsai Assigned Neuroscience 10/10/21 DO Aleks Provider [address] [place], [place] [phone] documented as of this encounter
--- OUTSIDE RECORDS SUMMARY | 2022-05-09 10:57 | XMS_ITS | Encounter Summary ---
:1955 Author Organization [place] Address [address] [place] [address] Care Team Providers Name Role Phone Krystin Christie APRN STOCKROOM SELECTOR Primary Care Provider [phone] Sonja Tinajero [facility] Unavailable [phone] Sea Tsai DO Unavailable [phone] Vidhi Paiz APRN STOCKROOM SELECTOR Unavailable [phone] Sea Tsai DO Unavailable [phone] Reason for Visit Reason Comments Consult video visit new Encounter Details Date Type Department Care Team Description 10/01/2021 Virtual Visit [facility] Eulalio, Benign e xertional headache (Primary Dx); Neurology Clinic Sea Fink DO Other trigeminal autonomic cephalgias (t ac), not intractable [address] [address] [place], [place] [phone] (Work) [phone] Social History Tobacco Use Types Packs/Day Years Used Date Smoking Tobacco: Never Smokeless Tobacco: Never Alcohol Use Standard Drinks/Week Comments No 0 (1 standard drink = 0.6 oz pure alcoho l) Sex Assigned at Date Recorded Female 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 The patient has a pertinent medical history of DMII with retinopathy and neuropathy, YESSI, NAFLD, depression, HTN, RLS, COVID19 (08/2021), and subclinical hypothyroidism. The patient was seen with [facility] Neurologist, Dr. Viveros, on 08/17/2021 for headaches. In that visit, she descried new onset headache in 07/2021 that was bifrontal, began with exercise and stopped after. Headaches then began to occur in the right frontal-parietal region, and right retro-orbital region, with any exertion (jogging from car to building). She described dull, pressure, tightness with pulsation at times. She did obtain MRI/MRA/MRV 07/29/2021 which was reported as normal (see data below). Other symptoms were described as dizziness with headaches, and without, indicating she may walk into things if she moves to quickly. It was thought she likely had exertional headache, and was recommended to trial low dose indomethacin 30-60 minutes prior to exercise if she could tolerate it given her GI history. Today, the patient indicates that the above mentioned history is correct. She had escalating headaches regarding pain, only induced by exercise, and only occurring over her forehead and face. She doesn't feel her headaches have occurred without exercise prior to 08/17/2021, but has had events now without exertion. The events without exertion are occurring over the right side of her head (like a shade over her eye then down her cheek). She describes sharp stabbing intense pain over her fore-head, into the eye, then at her cheek. There is no diplopia, no dysarthria, no vomiting, and no photophobia or phonophobia. The events may last a few seconds at a time (30-60 seconds in total). There is no drooling or flushing in her face. The events do not wake her up at night. She also reports atypical dizziness which can occur with the head pain and without. Often the dizziness occurs with standing quickly, but it can occur at random and while sitting with her eyes closed or open. Medications: Buspirone Levothyroxine Metformin Data: Pertinent prior to visit Imaging: (able to view reports and actual images on PACS) MRI brain w/out contrast: 07/29/2021 - some mild small vessel white matter changes MRA/MRV head w/wout contrast: 07/29/2021 - no sign of arterial occlusion, dissection, vascular malformation, or venous thrombosis. Assessment and Plan: Assessment: Exercise induced headache Autonomic cephalgia Non-positional dizziness The patient has had negative MRI/MRV/MRA in the setting of her exercise induced headaches, which rules out many potential etiologies. Given she has not yet tried indomethacin, it is difficult to say ifher condition is responsive. I would agree with indomethacin as treatment if GI providers feel it isreasonable, but would also add that given the non-positional dizziness and chest pain reporting, a sales support representative should also be consulted prior to indomethacin use given it can lead to cardiovascular events. The new issues of non-exercise induced stabbing pain that is lateralized to the right side of her face is not entirely consistent with an autonomic cephalgia given the lack of autonomic symptoms, but given the distribution and pain type, I think treatment with an agent such as carbamazepine, or gabapentin could be done as a trial while awaiting indomethacin opinion. Plan: Continue to follow with outside neurology as they have requested: - Agree with indomethacin but would want GI and cardiology to comment on risk of use - Could trial gabapentin or carbamazepine given the trigeminal (v1, V2) distribution of pain but lack of autonomic symptoms reported Gurjit Tsai D.O. Housekeeper Caregiver of Neurology Total time today (38 min) in this patient encounter was spent on pre-charting, counseling and/or coordination of care. The patient is in agreement with this plan and has no further questions. Visit was initially virtual, but then was switched to phone due to technical difficulties. documented in this encounter Nursing Ozzy Mcbride - 10/01/2021 1:15 PM CDT Chief Complaint Patient presents with ??? Consult video visit janet Phelan documented in this encounter Plan of Treatment Upcoming Encounters Date Type Specialty Care Team Description 05/19/2022 Office Visit ENT Dima Hidalgo M D [address] [place], [place] [address] (Wo rk) 08/02/2022 Office Visit Neurology Yair Campos MD [address] [place] [address] (Wo rk) documented as of this encounter Visit Diagnoses Diagnosis Benign exertional headache - Primary Headache Other trigeminal autonomic cephalgias (t ac), not intractable documented in this encounter Additional Health Concerns Assessment Noted Time PHQ-9 Depression Total Score: 8 01/07/2019 2:02 PM CDT documented as of this encounter Care Teams College Basketball Coach Relationship Specialty Start Date End Date Krystin Christie PCP - General Nurse Practitioner 09/18/19 SAURABH Engel STOCKROOM SELECTOR [address] [facility] [place] [address] Sonja Tinajero Pharmacist 08/24/20 [facility] [address] [facility] [place] [address] Sea Tsai MD Neurology 08/04/21 DO Aleks [address] [place] [address] Vidhi Paiz Assigned PCP 07/25/21 01/07/22 SAURABH Turner STOCKROOM SELECTOR [address] [facility] [place] [address] Sea Tsai Assigned Neuroscience 10/10/21 DO Aleks Provider [address] [place] [address] documented as of this encounter
--- OUTSIDE RECORDS SUMMARY | 2022-05-09 10:57 | XMS_ITS | Encounter Summary ---
:1955 Author Organization [place] Address [address] [place] [address] Care Team Providers Name Role Phone Krystin Christie APRN DIRECTOR FINANCIAL SERVICES Primary Care Provider [phone] Sonja Tinajero [facility] Unavailable [phone] Sea Tsai DO Unavailable [phone] Vidhi Paiz APRN DIRECTOR FINANCIAL SERVICES Unavailable [phone] Sea Tsai DO Unavailable [phone] Encounter Details Date Type Department Care Team Description 11/23/2021 Travel Social History Tobacco Use Types Packs/Day Years Used Date Smoking Tobacco: Never Smokeless Tobacco: Never Alcohol Use Standard Drinks/Week Comments No 0 (1 standard drink = 0.6 oz pure alcoho l) Sex Assigned at Date Recorded Female 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 documented as of this encounter Plan of Treatment Upcoming Encounters Date Type Specialty Care Team Description 05/19/2022 Office Visit ENT Dima Hidalgo M D [address] [place] [address] (Wo rk) 08/02/2022 Office Visit Neurology Yair Campos MD [address] [facility] [place] [address] (Wo rk) documented as of this encounter Visit Diagnoses Not on filedocumented in this encounter Additional Health Concerns Assessment Noted Time PHQ-9 Depression Total Score: 8 01/07/2019 2:02 PM CDT documented as of this encounter Care Teams Healthcare Manager Relationship Specialty Start Date End Date Krystin Christie PCP - General Nurse Practitioner 09/18/19 SAURABH Engel DIRECTOR FINANCIAL SERVICES [address] [facility] [place] [address] Sonja Tinajero Pharmacist 08/24/20 [facility] [address] [facility] [place] [id number] Sea Tsai MD Neurology 08/04/21 DO Aleks [address] [place] [address] Vidhi Paiz Assigned PCP 07/25/21 01/07/22 SAURABH Turner DIRECTOR FINANCIAL SERVICES [address] [facility] [place] [address] Sea Tsai Assigned Neuroscience 10/10/21 DO Aleks Provider [address] [place] [address] documented as of this encounter
--- OUTSIDE RECORDS SUMMARY | 2022-05-09 10:57 | XMS_ITS | Encounter Summary ---
:1955 Author Organization [place] Address [facility] [place] [address] Care Team Providers Name Role Phone Krystin Christie APRN PRACTICE LEAD Primary Care Provider [phone] Sonja Tinajero 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 documented as of this encounter Plan of Treatment Upcoming Encounters Date Type Specialty Care Team Description 05/19/2022 Office Visit ENT Dima Hidalgo M D [address] [place] [address] (Wo rk) 08/02/2022 Office Visit Neurology Yair Campos MD [address] [place], [place] [address] (Wo rk) documented as of this encounter Visit Diagnoses Not on filedocumented in this encounter Additional Health Concerns Assessment Noted Time PHQ-9 Depression Total Score: 8 01/07/2019 2:02 PM CDT documented as of this encounter Care Teams News Editor Relationship Specialty Start Date End Date Krystin Christie PCP - General Nurse Practitioner 09/18/19 SAURABH Engel PRACTICE LEAD [address] [facility] [address] [place] [id number] Sonja Tinajero, Pharmacist 08/24/20 [facility] [address] [facility] [place] [id number] Sea Tsai MD Neurology 08/04/21 DO Aleks [address] [place] [address] Sea Tsai Assigned Neuroscience 10/10/21 DO Aleks Provider [address] [place] [address] Stephanie Canela Assigned OBGYN Provider 12/05/21 MD Alee [address] [place] [id number] Krystin Christie Assigned PCP 01/08/22 SAURABH Engel PRACTICE LEAD [address] [facility] [place] [id number] Dima Hidalgo MD MD Otolaryngology 02/15/[address] [id number] documented as of this encounter
--- OUTSIDE RECORDS SUMMARY | 2022-05-09 10:57 | XMS_ITS | Encounter Summary ---
:1955 Author Organization [place] Address [address] [place] [address] Care Team Providers Name Role Phone Krystin Christie APRN BRUSH CUTTER Primary Care Provider Sonja Tinajero [facility] Unavailable [phone] Sea Tsai DO Unavailable [phone] Sea Tsai DO Unavailable [phone] Stephanie Canela MD Unavailable [phone] Krystin Christie APRN [facility] Unavailable [phone] Dima Hidalgo MD Unavailable Dima Hidalgo MD Unavailable Reason for Visit Reason Comments New Patient Right facial pain, Recs In E pic, Referred By Dima Hidalgo MD, Scheduled Per Patient Consultation (Routine: Next available opening) - Pending Review Specialty Diagnoses / Procedures Referred By Contact Refer red To Contact Diagnoses Right facial pain Dima Hidalgo MD [facility] [address] [facility] [place] [address] [facility] [address] [phone] Phone: Fax: Referral ID Status Reason Start Date Expiration Date Visits V isits Requested Authorized [id number] Pending 03/03/2022 03/03/2023 1 1 Review Encounter Details Date Type Department Care Team Description 04/28/2022 Office Visit [facility] Dima Hidalgo MD 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 documented as of this encounter Last Filed Vital Signs Vital Sign Reading Time Taken Comments Blood Pressure 140/88 04/28/2022 8:10 AM CDT Pulse - - Temperature - - Respiratory Rate - - Oxygen Saturation - - Inhaled Oxygen Concentration - - Weight 88.5 kg (195 lb) 04/28/2022 8:10 AM CDT Height 160 cm (5' 3) 04/28/2022 8:10 AM CDT Body Mass Index 34.54 04/28/2022 8:10 AM CDT documented in this encounter Patient Instructions Patient InstructionsYair Campos MD - 04/28/2022 8:00 AM CDT Start gabapentin 300 mg nightly. After about one week, take 300mg twice daily. After another week, take 300mg three times daily for a total of 900mg per day A common side effect of gabapentin is fatigue, which is why we advise patients to start taking the medication at nighttime. The side effect of fatigue should resolve with time. Other possible side effects include swelling, and less likely diarrhea. It is commonly a well tolerated medicine. I do not think this represents classical trigeminal neuralgia but the area in question does seem to be the V2 distribution of the trigeminal nerve and we will treat this symptomatically as such. AttachmentsThe following attachments cannot be sent through Care Everywhere. Gabapentin Oral Capsule 300 mg (Chadian)documented in this encounter Progress Notes Yair Campos MD - 04/28/2022 8:00 AM CDT Images from the original note were not included. [facility] Section of General Neurology New Patient Visit Becki Ridley Age: [age] year old Date of : 1955 Requesting physician: Krystin Cabral Reason for Consultation: Facial pain Assessment and Plan: Assessment: Becki Ridley is a pleasant 67 year old female seen in consultation for head pain. She was previouslyseen for exertional headaches. I did review her imaging in this regard which was benign. She has trialed low dose indomethicin PRN in this regard but has found more success through activity modification. She would like R maxillary shooting pain addressed that started after a september procedure. It seems there is shooting nerve pain in the V2 distribution of the trigeminal nerve subsequently. It does notseem to have the same phenotype as a classical trigeminal neuralgia but we can try to treat it in a similar vein. It affects her life a fair amount and our goal would be in not alter her sleep or change her day to day living as it has been. Plan: --Gabapentin to uptitrate to 300 mg TID, would start here given favorable safety profile, side effects discussed. Other options we could trial in the future include lyrica, oxcarbazepine, or other agents for nerve pain in general --Follow up in 3 months. She will reach out in ~1 month if she is tolerating the gabapentin OK and wishes to trial a higher dose in the interim too. Michael Campos MD [employer] [facility] of Neurology [facility] History of Presenting Symptoms: Becki Ridley is a 67 year old female who presents today for evaluation of R facial pain/headaches She recently saw my colleague Dr. MORENA Tsai for exertional headaches earlier this year. She has described sharp stabbing intense pain over her forehead, eye, cheek at that time. There is no diplopia dysarthria and no photophobia or phonophobia. The events can last briefly or up to a minute previously. She wishes to discuss a different type of pain today: They took a mole off of her R maxilla, proceduralist went quite deep. Still gets pain burning insidesurgical site up into eye. This is different than the exercise induced pain. She watches it on exercise so hasn't needed indomethicin at that time. Sometimes this effects her sleep. Glasses irritate it. 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 She is building a [employer]. Past Medical History: Patient Active Problem List Diagnosis ??? Subclinical hypothyroidism ??? Urticaria ??? Asthma ??? NAFLD (nonalcoholic fatty liver disease) ??? Morbid obesity, unspecified obesity type (H) ??? History of corticosteroid therapy ??? Elevated liver enzymes ??? Depression ??? Weakness ??? Generalized weakness ??? Advance care planning ??? Diabetic gastroparesis (H) ??? Bilateral incipient cataracts ??? Type 2 diabetes mellitus without retinopathy (H) ??? Blepharitis of upper and lower eyelids of both eyes, unspecified type ??? YESSI (obstructive sleep apnea) ??? Narcolepsy ??? Vaginal bleeding ??? Generalized muscle weakness Past Medical History: Diagnosis Date ??? Angioedema ??? Anxiety ??? Arthritis ??? Asthma ??? Blood transfusion ??? Depression ??? DM2 (diabetes mellitus, type 2) (H) ??? Hypertension ??? Kidney infection ??? Lower extremity edema ??? VILLAREAL (nonalcoholic steatohepatitis) ??? PCOS (polycystic ovarian syndrome) ??? Restless legs syndrome ??? Restrictive lung disease ??? Sleep apnea ??? Subclinical hypothyroidism 2009 Past Surgical History: Past Surgical History: Procedure Laterality Date ??? COLONOSCOPY age 52 [place] results ??? EYE SURGERY ??? IR LIVER BIOPSY PERCUTANEOUS 07/04/2019 ??? PERCUTANEOUS BIOPSY LIVER Right 07/04/2019 Procedure: Percutaneous Liver Biopsy; Surgeon: Wali Hare PA-C; Location: OR Social History: Social History Tobacco Use ??? Smoking status: Never ??? Smokeless tobacco: Never Substance Use Topics ??? Alcohol use: No Alcohol/week: 0.0 standard drinks ??? Drug use: No Family History: Family History Problem Relation Age of Onset ??? Thyroid Disease Daughter patric thyroiditis ??? Depression Daughter ??? Anxiety Disorder Daughter ??? Polycystic ovary syndrome Daughter ??? Depression Mother ??? Dementia Mother ??? Hypertension Mother ??? Cancer Mother ??? Diabetes Mother ??? Glaucoma Mother ??? Cerebrovascular Disease Mother ??? Lung Cancer Mother ??? Liver Cancer Mother ??? Other - See Comments Mother spine cancer ??? Depression Father ??? Hypertension Father ??? Diabetes Father ??? Depression Maternal Grandmother ??? Dementia Maternal Aunt ??? Dementia Maternal Aunt ??? Dementia Maternal Aunt ??? Dementia Maternal Aunt ??? No Known Problems Maternal Grandfather ??? No Known Problems Paternal Grandmother ??? No Known Problems Paternal Grandfather ??? No Known Problems Brother ??? Bladder Cancer Sister ??? No Known Problems Brother ??? No Known Problems Brother ??? No Known Problems Other ??? Macular Degeneration No family hx of Medications: Current Outpatient Medications Medication Sig ??? ACCU-CHEK ANNIE PLUS test strip USE TO TEST BLOOD SUGAR ONCE A DAY OR DIRECTED (NEED TO BE SEEN IN CLINIC FOR FURTHER REFILLS) ??? albuterol (PROAIR HFA/PROVENTIL HFA/VENTOLIN HFA) 108 (90 Base) MCG/ACT inhaler Inhale 2 puffs into the lungs every 6 hours as needed for shortness of breath / dyspnea or wheezing ??? busPIRone (BUSPAR) 10 MG tablet Take 1 tablet (10 mg) by mouth 2 times daily ??? cetirizine (ZYRTEC) 10 MG tablet Take 1 tablet (10 mg) by mouth daily as needed For hives ??? dapagliflozin (FARXIGA) 10 MG TABS tablet Take 10 mg by mouth ??? diclofenac (VOLTAREN) 1 % topical gel Place 4 g onto the skin 4 times daily as needed for moderate pain ??? EPINEPHrine (EPIPEN) 0.3 MG/0.3ML injection Inject 0.3 mg into the muscle once as needed. ??? glipiZIDE (GLUCOTROL XL) 5 MG 24 hr tablet Take 1 tablet (5 mg) by mouth daily Needs labs for refills ??? ipratropium - albuterol 0.5 mg/2.5 mg/3 mL (DUONEB) 0.5-2.5 (3) MG/3ML neb solution Take 1 vial (3 mLs) by nebulization every 6 hours as needed for shortness of breath / dyspnea or wheezing ??? levocetirizine (XYZAL) 5 MG tablet TAKE 1 TABLET BY MOUTH TWICE A DAY ??? levothyroxine (SYNTHROID/LEVOTHROID) 50 MCG tablet Take 1 tablet (50 mcg) by mouth daily Needs labs for refills ??? metFORMIN (GLUCOPHAGE-XR) 500 MG 24 hr tablet Take 3 tablets (1,500 mg) by mouth daily (with dinner) Needs labs for refills ??? montelukast (SINGULAIR) 10 MG tablet Take 1 tablet (10 mg) by mouth At Bedtime ??? order for DME Equipment being ordered: orthopedic Diabetic shoes ??? rosuvastatin (CRESTOR) 10 MG tablet rosuvastatin 10 mg tablet TAKE 1 TABLET BY MOUTH EVERY DAY ??? Vitamin D, Cholecalciferol, 1000 units TABS Take 1,000 Units by mouth daily Current Facility-Administered Medications Medication ??? lidocaine 1 % injection 0.5 mL ??? lidocaine 1 % injection 4 mL ??? lidocaine 1 % injection 5 mL ??? triamcinolone (KENALOG-40) injection 20 mg ??? triamcinolone (KENALOG-40) injection 40 mg Allergies: Allergies Allergen Reactions ??? Cipro [Quinolones] Itching and Difficulty breathing ??? Ciprofloxacin Itching and Shortness Of Breath ??? Codeine Shortness Of Breath Other reaction(s): Syncope ??? Codeine Sulfate Other (See Comments) Blacked out ??? Vicodin [Hydrocodone-Acetaminophen] Itching and Difficulty breathing ??? Darvocet [Propoxyphene N-Apap] Itching ??? Pioglitazone [place] sick Review of Systems: As noted above Physical Exam: Vitals: BP (!) 140/88 (BP Location: Right arm, Patient Position: Sitting, Cuff Size: Adult Regular) Ht 1.6 m (5' 3) Wt 88.5 kg (195 lb) BMI 34.54 kg/m?? CV: peripheral pulse appreciated Lungs: breathing comfortably Skin: Faint lesion on R maxilla from previous surgery Neuro: General Appearance: No apparent distress, well-nourished, well-groomed, pleasant Mental Status: Alert and oriented to person, place, and time. Speech fluent and comprehension intact. No dysarthria. Cranial Nerves: II: Visual laughlin: normal III: Pupils: 3 mm, equal, round, reactive to light III,IV,: Extraocular Movements: intact V: Facial sensation: intact to PP b/l VII: Facial strength: intact without asymmetry VIII: Hearing: intact grossly IX: Palate: intact XII: Tongue movement: normal Motor Exam: Upper Extremities Deltoid Bicep Tricep Wrist Extensors Broadcast Operations Manager strength Intrinsic Muscles Right 5 5 5 5 5 5 Left 4 5 5 5 5 5 Lower Extremities Hip Flexors Knee Extensors Knee Flexors Dorsi Flexion Plantar Flexion Right 5 5 5 5 5 Left 5 5 5 5 5 Has some L shoulder issues she notes/is aware of this Sensory: intact to light touch, vibration Coordination: no dysmetria with [id number] bilaterally Reflexes: biceps, triceps, brachioradialis, patellar, and ankle jerks 1+ and symmetric. Data: Pertinent prior to visit Imagin/22 MRI/MRA/MRV non contributory to report I personally reviewed the above imaging and agree with the findings in the reports Labs: Lab Results Component Value Date A1C 8.4 05/03/2019 A1C 7.7 01/07/2019 A1C 7.7 10/15/2018 A1C 11.6 08/16/2018 A1C 9.7 09/28/2016 documented in this encounter Nursing Notes Darwin Holcomb MA - 04/28/2022 8:00 AM CDT Becki Mackey [facility]'s goals for this visit include: Chief Complaint Patient presents with ??? New Patient Right facial pain, Recs In Epic, Referred By Dima Hidalgo MD, Scheduled Per Patient She requests these members of her care team be copied on today's visit information: yes PCP: Krystin Christie Referring Provider: Dima Hidalgo MD [address] [place] [address] BP (!) 140/88 (BP Location: Right arm, Patient Position: Sitting, Cuff Size: Adult Regular) Ht 1.6m (5' 3) Wt 88.5 kg (195 lb) BMI 34.54 kg/m?? Do you need any medication refills at today's visit? No Maria Isabel Walters, JORGE (AAMO) documented in this encounter Plan of Treatment Upcoming Encounters Date Type Specialty Care Team Description 05/19/2022 Office Visit ENT Dima Hidalgo M D [address] [phone] (Wo rk) 08/02/2022 Office Visit Neurology Yair Campos MD [address] [place], [place] [id number] (Wo rk) documented as of this encounter Visit Diagnoses Diagnosis Benign exertional headache - Primary Headache Right facial pain Headache documented in this encounter Additional Health Concerns Assessment Noted Time PHQ-9 Depression Total Score: 8 01/07/2019 2:02 PM CDT documented as of this encounter Care Teams Online Communications Specialist Relationship Specialty Start Date End Date Krystin Christie PCP - General Nurse Practitioner 09/18/19 SAURABH Engel BRUSH CUTTER [address] [place] [id number] Sonja Tinajero, Pharmacist 08/24/20 [facility] [address] [facility] [place] [address] Sea Tsai MD Neurology 08/04/21 DO Aleks [address] [place] [id number] Sea Tsai Neuroscience 10/10/21 DO Aleks Provider [address] [place] [address] Stephanie Canela Assigned OBGYN Provider 12/05/21 MD Alee [address] [address] [place], [place] [address] Krystin Christie Assigned PCP 01/08/22 SAURABH Engel BRUSH CUTTER [address] [place] [id number] Dima Hidalgo MD MD Otolaryngology 02/15/[address] [id number] Dima Hidalgo MD Assigned Surgical 03/12/[address] [id number] documented as of this encounter
--- OUTSIDE RECORDS SUMMARY | 2022-05-09 10:57 | XMS_ITS | Encounter Summary ---
:1955 Author Organization [place] Address [address] [address] Care Team Providers Name Role Phone Krystin Christie APRN SUPERVISOR CHANNEL PROCESS Primary Care Provider [phone] Eric Abdi MD Unavailable [phone] Cecilia Aleman MD Unavailable [phone] [facility] Unavailable [phone] Vidhi Paiz APRN [facility] Unavailable [phone] Reason for Visit Reason Comments Asthma Exacerbation Encounter Details Date Type Department Care Team Description 02/15/2021 Emergency [facility] Turner Javier MD [facility] [address] [facility] [address] [place] [address] [place] [address] [place] [id number] (Wo rk) Social History Tobacco Use Types Packs/Day Years Used Date Smoking Tobacco: Never Smokeless Tobacco: Never Alcohol Use Standard Drinks/Week Comments No 0 (1 standard drink = 0.6 oz pure alcoho l) Sex Assigned at Date Recorded Female 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 documented as of this encounter Last Filed Vital Signs Vital Sign Reading Time Taken Comments Blood Pressure 178/75 02/15/2021 3:50 AM CDT Pulse 86 02/15/2021 3:50 AM CDT Temperature 36.8 ??C (98.2 ??F) 02/15/2021 3:50 AM CDT Respiratory Rate 22 02/15/2021 3:50 AM CDT Oxygen Saturation 99% 02/15/2021 3:50 AM CDT Inhaled Oxygen Concentration - - Weight 90.7 kg (200 lb) 02/15/2021 3:50 AM CDT Height 160 cm (5' 3) 02/15/2021 3:50 AM CDT Body Mass Index 35.43 02/15/2021 3:50 AM CDT documented in this encounter Medications at Time of Discharge Medication Sig Dispensed Refills Start Date End Date ACCU-CHEK ANNIE PLUS USE TO TEST BLOOD 100 each 0 07/20/19 21 test stripIndications: SUGAR ONCE A DAY OR Type 2 diabetes DIRECTED (NEED TO mellitus without BE SEEN IN CLINIC FOR complication, without FURTHER REFILLS) long-term current use of insulin (H) albuterol (PROAIR Inhale 2 puffs into 1 Inhaler 3 0 HFA/PROVENTIL the lungs every 6 HFA/VENTOLIN HFA) 108 hours as needed for (90 Base) MCG/ACT shortness of breath / inhalerIndications: dyspnea or wheezing Mild persistent asthma with acute exacerbation busPIRone (BUSPAR) 10 Take 1 tablet (10 mg) 180 tablet 0 MG tabletIndications: by mouth 2 times KIERRA (generalized daily anxiety disorder) cetirizine (ZYRTEC) 10 Take 1 tablet (10 mg) 90 tablet 3 MG tabletIndications: by mouth daily as Uncomplicated asthma, needed For hives unspecified asthma severity, unspecified whether persistent, Hives diclofenac (VOLTAREN) 1 Place 4 g onto the 100 g 1 04/17 % topical skin 4 times daily as gelIndications: needed for moderate Arthralgia, unspecified pain joint EPINEPHrine (EPIPEN) Inject 0.3 mg into 0 0.3 MG/0.3ML injection the muscle once as needed. glipiZIDE (GLUCOTROL Take 1 tablet (5 mg) 90 tablet 0 07/08 XL) 5 MG 24 hr by mouth daily Needs tabletIndications: Type labs for refills 2 diabetes mellitus with complication, without long-term current use of insulin (H) ipratropium - albuterol Take 1 vial (3 mLs) 1 Box 0 0.5 mg/2.5 mg/3 mL by nebulization every (DUONEB) 0.5-2.5 (3) 6 hours as needed for MG/3ML neb shortness of breath / solutionIndications: dyspnea or wheezing Mild persistent asthma with acute exacerbation levocetirizine (XYZAL) TAKE 1 TABLET BY 0 01/27/2 021 5 MG tablet MOUTH TWICE A DAY levothyroxine Take 1 tablet (50 90 tablet 0 07/08/2020 (SYNTHROID/LEVOTHROID) mcg) by mouth daily 50 MCG Needs labs for tabletIndications: refills Subclinical hypothyroidism metFORMIN Take 3 tablets (1,500 270 tablet 0 07/08/2020 (GLUCOPHAGE-XR) 500 MG mg) by mouth daily 24 hr (with dinner) Needs tabletIndications: Type labs for refills 2 diabetes mellitus with complication, without long-term current use of insulin (H) montelukast (SINGULAIR) Take 1 tablet (10 mg) 90 tablet 3 0 01/21/2020 10 MG by mouth At Bedtime tabletIndications: Mild persistent asthma with acute exacerbation 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, without long-term current use of insulin (H) Vitamin D, Take 1,000 Units by 0 Cholecalciferol, 1000 mouth daily units TABS valACYclovir (VALTREX) Take 1 tablet (1,000 21 tablet 0 06/202011/24/2021 1000 mg tablet mg) by mouth 3 times daily for 7 days documented as of this encounter ED Notes Emely Chatman RN - 02/15/2021 4:51 AM CDT Pt sleeping in triage, observed Respirations unlabored. Emely Chatman RN - 02/15/2021 3:46 AM CDT Patient woke up having an asthma attack. States inhalers does not work on her, and she needs steroids. Also took an extra pill of gipizide by mistake at 0230. BG [address] Ambulatory, drove herself here, A&Ox4. Respirations even and unlabored, hyperverbal, speaking infull sentences, skin dry, warm, color wnl. documented in this encounter Plan of Treatment Upcoming Encounters Date Type Specialty Care Team Description 05/19/2022 Office Visit ENT Dima Hidalgo M D [address] [facility] [address] [place], [place] [address] (Sarah pino) 08/02/2022 Office Visit Neurology Yair Campos MD [address] [place] [address] (Sarah pino) documented as of this encounter Procedures Procedure Name Priority Date/Time Associated Diagnosis Comme nts GLUCOSE BY METER STAT 02/15/2021 3:51 AM Resul ts for this CDT procedure are i n the results section. documented in this encounter Results (ABNORMAL) Glucose by meter (02/15/2021 3:51 AM CDT) P athologist Signature GLUCOSE BY 356 (H) 70 - 99 02/15/2021 LABORATORY METER POCT mg/dL 3:59 AM CDT POC Specimen Anatomical Collection Method Collection Time Receive d Time (Source) Location / / Volume Laterality Blood BLOOD SPECIMEN / 02/15/2021 3:51 AM 02/15 3:59 Unknown CDT AM CDT Provider Unknown LAB - BEAKER POCT Performing Organization Address City/State/ZIP Code Phon [place] [id number] Care [facility] [address], [address] documented in this encounter Visit Diagnoses Not on filedocumented in this encounter Additional Health Concerns Assessment Noted Time PHQ-9 Depression Total Score: 8 01/07/2019 2:02 PM CDT documented as of this encounter Care Teams Word Processor Operator Relationship Specialty Start Date End Date Krystin Christie PCP - General Nurse Practitioner 09/18/19 SAURABH Engel SUPERVISOR CHANNEL PROCESS [address] [facility] [place] [address] Eric Abdi Assigned Musculoskeletal 05/08/20 03/27/21 MD Joo Provider TRIA [address] [place] [id number] Cecilia Aleman Assigned Surgical Provider 05/08/20 03/06/21 MD Lyly [address] [facility] [address] [place], [place] [phone] Sonja Tinajero Ka Pharmacist 08/24/20 [facility] [address] [facility] [place] [id number] Vidhi Paiz Assigned PCP 01/29/21 07/10/21 SAURABH Turner SUPERVISOR CHANNEL PROCESS [address] [facility] [place] [address] documented as of this encounter
--- OUTSIDE RECORDS SUMMARY | 2022-05-09 10:57 | XMS_ITS | Encounter Summary ---
:1955 Author Organization [place] Address [facility] [place] [address] Care Team Providers Name Role Phone Krystin Christie APRN AUTO AIR CONDITIONING INSTALLER Primary Care Provider [phone] Sonja Tinajero [facility], [facility] Unavailable [phone] Sea Tsai DO Unavailable [phone] Sea Tsai DO Unavailable [phone] Stephanie Canela MD Unavailable [phone] Krystin Christie APRN AUTO AIR CONDITIONING INSTALLER Unavailable [phone] Dima Hidalgo MD Unavailable Dima Hidalgo MD Unavailable Encounter Details Date Type Department Care Team Description 04/26/2022 Travel Social History Tobacco Use Types Packs/Day Years Used Date Smoking Tobacco: Never Smokeless Tobacco: Never Alcohol Use Standard Drinks/Week Comments No 0 (1 standard drink = 0.6 oz pure alcoho l) Sex Assigned at Date Recorded Female 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 documented as of this encounter Plan of Treatment Upcoming Encounters Date Type Specialty Care Team Description 05/19/2022 Office Visit ENT Dima Hidalgo M D [address] [address] (Wo rk) 08/02/2022 Office Visit Neurology Yair Campos MD [address] [place] [address] (Wo rk) documented as of this encounter Visit Diagnoses Not on filedocumented in this encounter Additional Health Concerns Assessment Noted Time PHQ-9 Depression Total Score: 8 01/07/2019 2:02 PM CDT documented as of this encounter Care Teams Director Of Conservation Relationship Specialty Start Date End Date Krystin Christie PCP - General Nurse Practitioner 09/18/19 SAURABH Engel AUTO AIR CONDITIONING INSTALLER [address] [facility] [place] [phone] Sonja Tinajero, Pharmacist 08/24/[address] [place] [id number] Sea Tsai MD Neurology 08/04/21 DO Aleks [address] [place] [address]995 Sea Tsai Assigned Neuroscience 10/10/21 DO Aleks Provider [address] [place] [phone] Stephanie Canela Assigned OBGYN Provider 12/05/21 MD Alee [address] [place], [place] [address] Krystin Christie Assigned PCP 01/08/22 SAURABH Engel AUTO AIR CONDITIONING INSTALLER [address] [facility] [address] [id number] Dima Hidalgo MD MD Otolaryngology 02/15/[address] [id number] Dima Hidalgo MD Assigned Surgical 03/12/[address] [place] [address] documented as of this encounter
--- OUTSIDE RECORDS SUMMARY | 2022-05-09 10:57 | XMS_ITS | Encounter Summary ---
:1955 Author Organization [place] Address [address] [facility] [place] [address] Care Team Providers Name Role Phone Krystin Christie APRN POND WORKER Primary Care Provider [phone] Sonja Tinajero [facility] Unavailable [phone] Sea Tsai DO Unavailable [phone] Sea Tsai DO Unavailable [phone] Stephanie Canela MD Unavailable [phone] Krystin Christie APRN POND WORKER Unavailable [phone] Dima Hidalgo MD Unavailable Dima Hidalgo MD Unavailable Reason for Visit Reason Onset Date Comments Previsit 04/28/2022 Encounter Details Date Type Department Care Team Description 04/28/2022 PRE VISIT [facility] Neurology Torr Yair denise MD Previsit Clinic [address] [place] [address] [place], [place] [phone] Social History Tobacco Use Types Packs/Day Years Used Date Smoking Tobacco: Never Smokeless Tobacco: Never Alcohol Use Standard Drinks/Week Comments No 0 (1 standard drink = 0.6 oz pure alcoho l) Sex Assigned at Date Recorded Female 08/17/2018 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 documented as of this encounter Miscellaneous Notes Telephone Encounter - Abiola Moreno - 04/26/2022 2:40 PM CDT RECORDS RECEIVED FROM: Internal REASON FOR VISIT: Right facial pain Date of Appt: 04/28/2022 NOTES (FOR ALL VISITS) STATUS DETAILS OFFICE NOTE from referring provider Internal 03/03/2022 Dr Hidalgo [facility] OFFICE NOTE from other specialist N/A DISCHARGE SUMMARY from hospital N/A DISCHARGE REPORT from the ER N/A OPERATIVE REPORT N/A MEDICATION LIST N/A IMAGING (FOR ALL VISITS) EMG N/A EEG N/A LUMBAR PUNCTURE N/A SEBASTIAN SCAN N/A ULTRASOUND (CAROTID BILAT) *VASCULAR* N/A MRI (HEAD, NECK, SPINE) N/A CT (HEAD, NECK, SPINE) Internal 03/11/2022 sunus documented in this encounter Plan of Treatment Upcoming Encounters Date Type Specialty Care Team Description 05/19/2022 Office Visit ENT Dima Hidalgo M D [address] [place], [place] [address] (Wo rk) 08/02/2022 Office Visit Neurology Yair Campos MD [address] [place], [place] [address] (Wo rk) documented as of this encounter Visit Diagnoses Not on filedocumented in this encounter Additional Health Concerns Assessment Noted Time PHQ-9 Depression Total Score: 8 01/07/2019 2:02 PM CDT documented as of this encounter Care Teams Beveling Machine Operator Relationship Specialty Start Date End Date Krystin Christie PCP - General Nurse Practitioner 09/18/19 SAURABH Engel POND WORKER [address] [facility] [address] [place] [phone] Sonja Tinajero, Pharmacist 08/24/20 [facility] [address] [facility] [address] [place], [place] [phone] Sea Tsai MD Neurology 08/04/21 DO Aleks [address] [place] [address] Sea Tsai Assigned Neuroscience 10/10/21 DO Aleks Provider [address] [place] [address] Stephanie Canela Assigned OBGYN Provider 12/05/21 MD Alee [address] [place] [address] Krystin Christie Assigned PCP 01/08/22 SAURABH Engel POND WORKER [address] [facility] [facility] [facility] [address] [place], [place] [phone] Dima Hidalgo MD MD Otolaryngology 02/15/22 [place] [id number] Dima Hidalgo MD Assigned Surgical 03/12/22 [place] [id number] documented as of this encounter
--- OUTSIDE RECORDS SUMMARY | 2022-05-09 10:57 | XMS_ITS | Encounter Summary ---
:1955 Author Organization [place] Address [address] [facility] [place] [address] Care Team Providers Name Role Phone Krystin Christie APRN IPHONE DEVELOPER Primary Care Provider [phone] Sonja Tinajero [facility] Unavailable [phone] Sea Tsai DO Unavailable [phone] Vidhi Paiz APRN IPHONE DEVELOPER Unavailable [phone] Sea Tsai DO Unavailable [phone] Reason for Visit Reason Comments Other EMB Encounter Details Date Type Department Care Team Description 11/30/2021 Office Visit [facility] Stephanie Canela Post menopausal bleeding (Primary Dx); [facility] MD Alee Endometrial thickening on ultrasound [address] [address] [place] [address] [place] [address] (Work) [phone] Social History Tobacco Use Types Packs/Day Years Used Date Smoking Tobacco: Never Smokeless Tobacco: Never Alcohol Use Standard Drinks/Week Comments No 0 (1 standard drink = 0.6 oz pure alcoho l) Sex Assigned at Date Recorded Female 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 documented as of this encounter Last Filed Vital Signs Vital Sign Reading Time Taken Comments Blood Pressure 114/78 11/30/2021 8:56 AM CDT Pulse 74 11/30/2021 8:56 AM CDT Temperature - - Respiratory Rate - - Oxygen Saturation - - Inhaled Oxygen Concentration - - Weight 90.7 kg (200 lb) 11/30/2021 8:56 AM CDT Height - - Body Mass Index 35.43 11/23/2021 9:48 PM CDT documented in this encounter Progress Notes Stephanie Canela MD - 11/30/2021 8:50 AM CDT INDICATIONS: Is a test required: No. Was a consent obtained? Yes Having endometrial biopsy for post-menopausal bleeding. Denise has had spotting on and off for several months. She has also passed tissue in her urine that was thought to be from her bladder. Her bladder work up was negative. She was seen in the ED on 11/23 due to weakness. Her hemoglobin and other labs were within normal limits. Her transvaginal ultrasound showed an endometrial lining of 6mm and it appeared heterogeneous. Prior to menopause she had a diagnosis of polycystic ovarian syndrome. I personally reviewed her ultrasound images and no focal findings were present, there was diffuse heterogeneity. Today's PHQ-2 Score: PHQ-2 (??1998 Pfizer) 11/30/2021 Q1: Little interest or pleasure in doing things 0 Q2: Feeling down, depressed or hopeless 0 PHQ-2 Score 0 PHQ-2 Total Score (12-17 Years)- Positive if 3 or more points; Administer PHQ-A if positive - PROCEDURE; A speculum was placed in the vagina and cervix prepped with betadine. A tenaculum was attached to the cervix. A small plastic 5 mm Pipelle syringe curette was inserted into the cervical canal. The uterus was sounded to 7 cm's. A vigorous four quadrant biopsy was performed, removing amount scant of tissue. The speculum was removed. This tissue was placed in Formalin and sent to pathology. The patient tolerated the procedure well and she reported there was cramping. POST PROCEDURE; There was no cramping at the time of discharge. She tolerated the procedure well. There were no complications. Patient was discharged in stable condition. Patient advised to call the clinic if severe pelvic pain, fever or heavy bleeding. Follow up: if non-diagnostic or if a polyp is seen I will recommend an in office hysteroscopy. If negative then we can continue to monitor. We discussed that if endometrial pathology is found I would refer her to LITIGATION ATTORNEY Oncology. Stephanie Canela MD documented in this encounter Plan of Treatment Upcoming Encounters Date Type Specialty Care Team Description 05/19/2022 Office Visit ENT Dima Hidalgo M D [address] [place], [place] [address] (Wo rk) 08/02/2022 Office Visit Neurology Yair Campos MD [address] [facility] [place] [address] (Wo rk) documented as of this encounter Procedures Procedure Name Priority Date/Time Associated Diagnosis Comme nts NC ENDOMETRIAL Routine 11/30/2021 9:23 Postmenopausal BIOPSY W/O CERVICAL AM CDT bleeding DILATION Endometrial thickening on ultrasound SURGICAL PATHOLOGY Routine 11/30/2021 9:23 Postmenopausal Resu lts for this EXAM AM CDT bleeding procedure are in Endometrial thickening the r esults on ultrasound section. documented in this encounter Results Surgical pathology exam (11/30/2021 9:23 AM CDT) Component Value Ref Test Analysis Performed At [facility] Range Method Time Signature Case Report Surgical Pathology Report ? Case: [id number] ? 12/02/2021 Authorizing Provider: ??Stephanie Church ? Collected: ? 11/30/2021 09:23 AM ? 4:08 PM LABORA TORY ? MD Alee ? CDT Ordering Location: ? [facility] ?? Received: ?11/30/2021 12:22 PM ? [facility] [place] ? Pathologist: ? Zainab Overton MD ? Specimen: ?Endometrium ? Final Endometrium, biopsy: 12/02/2021 Electronically Diagnosis - A small amount of benign n onphasic endometrium, negative for hyperplasia, atypia and malignancy. 4:08 PM LABOR ATORY signed by CDT Akbar Overton MD on 12/02 at 4:08 PM Clinical Thickened 12/02/2021 Information endometrium. 4:08 PM LABORATORY Postmenopausal CDT bleeding Gross A(A). Endometrium, : 12/02/2021 Description The specimen is received in formalin labeled with the patient's name, medical record number, and other identifying information and designated ? endometrial biopsy? . It consists of a 1.7 x 1.0 x 0.6 c 4:08 PM LAB ORATORY m aggregate of mota-white muc oid material. Wrapped and entirely submitted in one cassette. CDT Microscopic Microscopic examination is performed. 12/02/2021 Description 4:08 PM LABORATORY CDT Performing The technical 12/02/2021 Labs component of this 4:08 PM LABORATORY testing was CDT completed at [facility] Laboratory Case Images 12/02/2021 4:08 PM LABORATORY CDT Specimen Anatomical Location Collection Method Collection Time Received Time (Source) / Laterality / Volume Biopsy ENDOMETRIAL 11/30/2021 9:23 11/30/2021 STRUCTURE / Unknown AM CDT 12:22 PM CDT Stephanie ELDER - XU PADILLA Performing Organization Address City/State/ZIP Code [place] [address] Care Lab [address] 1st floor, Room 20B documented in this encounter Visit Diagnoses Diagnosis Postmenopausal bleeding - Primary Endometrial thickening on ultrasound documented in this encounter Additional Health Concerns Assessment Noted Time PHQ-9 Depression Total Score: 8 01/07/2019 2:02 PM CDT documented as of this encounter Care Teams Single End Sewer Relationship Specialty Start Date End Date Krystin Christie PCP - General Nurse Practitioner 09/18/19 SAURABH Engel IPHONE DEVELOPER [address] [facility] [place] [address] Sonja Tinajero Pharmacist 08/24/[address] [facility] [address] [facility] [place] [address] Sea Tsai MD Neurology 08/04/21 DO Aleks [address] [place] [phone] Vidhi Paiz Assigned PCP 07/25/21 01/07/22 SAURABH Turner IPHONE DEVELOPER [address] [facility] [address] [place] [phone] Sea Tsai Assigned Neuroscience 10/10/21 DO Aleks Provider [address] [place] [address] documented as of this encounter
--- OUTSIDE RECORDS SUMMARY | 2022-05-09 10:57 | XMS_ITS | Encounter Summary ---
:1955 Author Organization [place] Address [address] [facility] [place] [address] Care Team Providers Name Role Phone Krystin Christie APRN, CNP Primary Care Provider [phone] Sonja Tinajero [facility] Unavailable [phone] Sea Tsai DO Unavailable [phone] Sea Tsai DO Unavailable [phone] Stephanie Canela MD Unavailable [phone] Krystin Christie APRN, CNP Unavailable [phone] Dima Hidalgo MD Unavailable Reason for Visit Reason Onset Date Comments Panel Management 02/08/2022 AWV, mammo, dexa, di ab f/u, asthma f/u, imm Encounter Details Date Type Department Care Team Description 02/08/2022 Telephone [facility] Krystin Christie (AWV, Clinic Lola Engel APRN CNP mammo, dexa, diab f/u, [address] [place] [address] [facility] asthm a f/u, imm) [facility] [address] [address] [address] [address] [phone] Social History Tobacco Use Types Packs/Day Years Used Date Smoking Tobacco: Never Smokeless Tobacco: Never Alcohol Use Standard Drinks/Week Comments No 0 (1 standard drink = 0.6 oz pure alcoho l) Sex Assigned at Date Recorded Female 08/17/2018 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 Next Steps: Reach out within 90 days via Phone. Max number of attempts reached: Yes. Will try again in 90 days if patient still on fail list. Questions for provider review: None Lauren Linares MA Chart closed. Telephone Encounter - Lauren Linares MA - 02/08/2022 2:12 PM CDT Patient Quality Outreach Patient is due for the following: Dexa TSH Diabetes - A1C, LDL (Fasting), Eye Exam and Microalbumin Asthma - ACT needed and AAP Breast Cancer Screening - Mammogram Physical - Due after 07/18/20 Immunizations - Covid, Pneumococcal and Zoster NEXT STEPS: Schedule a yearly physical, mammogram Type of outreach: Sent Maxymiser message. Questions for provider review: None Lauren Linares MA Chart routed to Care Team. documented in this encounter Plan of Treatment Upcoming Encounters Date Type Specialty Care Team Description 05/19/2022 Office Visit ENT Dima Hidalgo M D [address] [place], [place] [address] (Wo rk) 08/02/2022 Office Visit Neurology Yair Campos MD [address] [place] [address] (Wo rk) documented as of this encounter Visit Diagnoses Not on filedocumented in this encounter Additional Health Concerns Assessment Noted Time PHQ-9 Depression Total Score: 8 01/07/2019 2:02 PM CDT documented as of this encounter Care Teams Citrus Fruit Packer Relationship Specialty Start Date End Date Krystin Christie PCP - General Nurse Practitioner 09/18/19 SAURABH Engel CATARACT LENS GENERATOR [address] [facility] [place] [address] Sonja Tinajero, Pharmacist 08/24/20 [facility] [address] [facility] [place] [phone] Sea Tsai MD Neurology 08/04/21 DO Aleks [address] [place], [place] [address] Sea Tsai Assigned Neuroscience 10/10/21 DO Aleks Provider [address] [place], [place] [address] Stephanie Canela Assigned OBGYN Provider 12/05/21 MD Alee [address] [place] [address] Krystin Christie Assigned PCP 01/08/22 SAURABH Engel CATARACT LENS GENERATOR [address] [facility] [place] [address] Dima Hidalgo MD MD Otolaryngology 02/15/[address] [facility] [address] [id number] documented as of this encounter
--- OUTSIDE RECORDS SUMMARY | 2022-05-09 10:57 | XMS_ITS | Encounter Summary ---
:1955 Author Organization [place] Address [address] [facility] [place] [address] Care Team Providers Name Role Phone Krystin Christie APRN SURGICAL BRACE MAKER Primary Care Provider Sonja Tinajero [facility] Unavailable [phone] Sea Tsai DO Unavailable [phone] Vidhi Paiz APRN SURGICAL BRACE MAKER Unavailable Sea Tsai DO Unavailable [phone] Reason for Referral Care Coordination (Routine: Next available opening) - Pending Review Specialty Diagnoses / Procedures Referred By Contact Refer red To Contact Diagnoses Other specified counseling Krystin Christie APRN SURGICAL BRACE MAKER [address] [facility] [place] [address] Referral ID Status Reason Start Date Expiration Date Visits V isits Requested Authorized [id number] Pending 11/25/2021 11/25/2022 1 1 Review Encounter Details Date Type Department Care Team Description 11/25/2021 Orders Only [facility] Care Krystin Christie Other specified Coordination SAURABH Engel counseling [address] [place] [address] [place] [phone] [facility] [phone] [address] [place] [id number] Social History Tobacco Use Types Packs/Day Years Used Date Smoking Tobacco: Never Smokeless Tobacco: Never Alcohol Use Standard Drinks/Week Comments No 0 (1 standard drink = 0.6 oz pure alcoho l) Sex Assigned at Date Recorded Female 08/17/2018 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 documented as of this encounter Plan of Treatment Upcoming Encounters Date Type Specialty Care Team Description 05/19/2022 Office Visit ENT Dima Hidalgo M D [address] [facility] [place], [place] [address] (Wo rk) 08/02/2022 Office Visit Neurology Yair Campos MD [address] [place], [place] [address] (Wo rk) Scheduled Referrals Name Type Priority Associated Diagnoses Order S [facility] Referral Routine: Next Other specified Expected: Discharge - available opening counseling 11/25/2021 Referral to CC (Approximate) , Expires: 11/25/2022 documented as of this encounter Visit Diagnoses Diagnosis Other specified counseling documented in this encounter Additional Health Concerns Assessment Noted Time PHQ-9 Depression Total Score: 8 01/07/2019 2:02 PM CDT documented as of this encounter Care Teams Dental Specialist Relationship Specialty Start Date End Date Krystin Christie PCP - General Nurse Practitioner 09/18/19 SAURABH Engel SURGICAL BRACE MAKER [address] [facility] [address] [phone] Sonja Tinajero Pharmacist 08/24/20 Dev, [facility] [address] [facility] [place] [address] Sea Tsai MD Neurology 08/04/21 DO Aleks [address] [place], [place] [address] Vidhi Paiz Assigned PCP 07/25/21 01/07/22 SAURABH Turner SURGICAL BRACE MAKER [address] [place], [place] [phone] Sea Tsai Assigned Neuroscience 10/10/21 DO Aleks Provider [address] [place], [place] [address] documented as of this encounter
--- OUTSIDE RECORDS SUMMARY | 2022-05-09 10:57 | XMS_ITS | Encounter Summary ---
:1955 Author Organization [place] Address [facility] [place] [address] Care Team Providers Name Role Phone Krystin Christie APRN HAND BULLDOZER Primary Care Provider [phone] Sonja Tinajero [facility] Unavailable [phone] Sea Tsai DO Unavailable [phone] Sea Tsai DO Unavailable [phone] Stephanie Canela MD Unavailable [phone] Krystin Christie APRN, CNP Unavailable [phone] Dima Hidalgo MD Unavailable Encounter Details Date Type Department Care Team Description 03/03/2022 Travel Social History Tobacco Use Types Packs/Day Years Used Date Smoking Tobacco: Never Smokeless Tobacco: Never Alcohol Use Standard Drinks/Week Comments No 0 (1 standard drink = 0.6 oz pure alcoho l) Sex Assigned at Date Recorded Female 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 documented as of this encounter Plan of Treatment Upcoming Encounters Date Type Specialty Care Team Description 05/19/2022 Office Visit ENT Dima Hidalgo M D [address] [place] [address] (Wo rk) 08/02/2022 Office Visit Neurology Yair Campos MD [address] [facility] [place], [place] [address] (Wo rk) documented as of this encounter Visit Diagnoses Not on filedocumented in this encounter Additional Health Concerns Assessment Noted Time PHQ-9 Depression Total Score: 8 01/07/2019 2:02 PM CDT documented as of this encounter Care Teams Cloud Subject Matter Expert Relationship Specialty Start Date End Date Krystin Christie PCP - General Nurse Practitioner 09/18/19 SAURABH Engel HAND BULLDOZER [address] [facility] [address] [place] [phone] Sonja Tinajero, Pharmacist 08/24/20 [facility] [address] [facility] [place] [place] [id number] Sea Tsai MD Neurology 08/04/21 DO Aleks [address] [place] [address] Sea Tsai Assigned Neuroscience 10/10/21 DO Aleks Provider [address] [place] [address] Stephanie Canela Assigned OBGYN Provider 12/05/21 MD Alee [address] [place] [address] Krystin Christie Assigned PCP 01/08/22 SAURABH Engel HAND BULLDOZER [address] [facility] [address] [place] [phone] Dima Hidalgo MD MD Otolaryngology 02/15/[address] [id number] documented as of this encounter
--- OUTSIDE RECORDS SUMMARY | 2022-05-09 10:57 | XMS_ITS | Encounter Summary ---
:1955 Author Organization [place] Address [facility] [place] [address] Care Team Providers Name Role Phone Krystin Christie APRN RETORT SETTER Primary Care Provider [phone] Sonja Tinajero [facility] Unavailable [phone] Sea Tsai DO Unavailable [phone] Sea Tsai DO Unavailable [phone] Stephanie Canela MD Unavailable [phone] Krystin Christie APRN, CNP Unavailable [phone] Dima Hidalgo MD Unavailable Encounter Details Date Type Department Care Team Description 03/11/2022 Travel Social History Tobacco Use Types Packs/Day Years Used Date Smoking Tobacco: Never Smokeless Tobacco: Never Alcohol Use Standard Drinks/Week Comments No 0 (1 standard drink = 0.6 oz pure alcoho l) Sex Assigned at Date Recorded Female 08/17/2018 10:39 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 documented as of this encounter Plan of Treatment Upcoming Encounters Date Type Specialty Care Team Description 05/19/2022 Office Visit ENT Dima Hidalgo M D [address] [place] [address] (Wo rk) 08/02/2022 Office Visit Neurology Yair Campos MD [address] [facility] [place], [place] [address] (Wo rk) documented as of this encounter Visit Diagnoses Not on filedocumented in this encounter Additional Health Concerns Assessment Noted Time PHQ-9 Depression Total Score: 8 01/07/2019 2:02 PM CDT documented as of this encounter Care Teams Chartered Accountant Relationship Specialty Start Date End Date Krystin Christie PCP - General Nurse Practitioner 09/18/19 SAURABH Engel RETORT SETTER [address] [place] [phone] Sonja Tinajero, Pharmacist 08/24/20 [facility] [address] [facility] [address] [place] [id number] Sea Tsai MD Neurology 08/04/21 DO Aleks 9[address] [place] [address] Sea Tsai Assigned Neuroscience 10/10/21 DO Aleks Provider [address] [place] [address] Stephanie Canela Assigned OBGYN Provider 12/05/21 MD Alee [address] [place] [address] Krystin Christie Assigned PCP 01/08/22 SAURABH Engel RETORT SETTER [address] [place] [phone] Dima Hidalgo MD MD Otolaryngology 02/15/[address] [place] [id number] documented as of this encounter
--- OUTSIDE RECORDS SUMMARY | 2022-05-09 10:57 | XMS_ITS | Encounter Summary ---
:1955 Author Organization [place] Address [address] [facility] [place] [address] Care Team Providers Name Role Phone Krystin Christie APRN SOFTWARE MAINTENANCE ENGINEER Primary Care Provider Sonja Tinajero [facility] Unavailable [phone] Sea Tsai DO Unavailable [phone] Sea Tsai DO Unavailable [phone] Stephanie Canela MD Unavailable [phone] Krystin Christie APRN, CNP Unavailable [phone] Dima Hidalgo MD Unavailable Reason for Referral Consultation (Routine) - Pending Review Specialty Diagnoses / Procedures Referred By Contact Refer red To Contact Otolaryngology Diagnoses Sinusitis chronic, frontal Rocky Avalos Neil E, MD Jessica A [address] [place], [place] [phone] [address] [facility] [address] [phone] Referral ID Status Reason Start Date Expiration Date Visits V isits Requested Authorized [id number] Pending 02/28/2022 02/28/2023 1 1 Review Scheduling Instructions [place] Encounter Details Date Type Department Care Team Description 02/28/2022 Transcribe Orders GENERIC EXTERNAL Provider, Generic S inusitis chronic, DATA DEPARTMENT External Data frontal (Pr imary Dx) Social History Tobacco Use Types Packs/Day Years Used Date Smoking Tobacco: Never Smokeless Tobacco: Never Alcohol Use Standard Drinks/Week Comments No 0 (1 standard drink = 0.6 oz pure alcoho l) Sex Assigned at Date Recorded Female 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 documented as of this encounter Plan of Treatment Upcoming Encounters Date Type Specialty Care Team Description 05/19/2022 Office Visit ENT Dima Hidalgo M D [address] [place], [place] [address] (Wo rk) 08/02/2022 Office Visit Neurology Yair Campos MD [address] [place], [place] [address] (Wo rk) Scheduled Referrals Name Type Priority Associated Diagnoses Order S chedule Adult ENT Washer Repairman Referral Routine Sinusitis chronic, Ex pected: 02/28/2022 Referral frontal (Approximate), Expires: 2022 documented as of this encounter Visit Diagnoses Diagnosis Sinusitis chronic, frontal - Primary Chronic frontal sinusitis documented in this encounter Additional Health Concerns Assessment Noted Time PHQ-9 Depression Total Score: 8 01/07/2019 2:02 PM CDT documented as of this encounter Care Teams Medical Billing Coder Relationship Specialty Start Date End Date Krystin Christie PCP - General Nurse Practitioner 09/18/19 SAURABH Engel SOFTWARE MAINTENANCE ENGINEER [address] [facility] [address] [place] [id number] Sonja Tinajero, Pharmacist 08/24/20 [facility] [address] [facility] [address] [place] [phone] Sea Tsai MD Neurology 08/04/21 DO Aleks 909 [place], [place] [address] Sea Tsai Assigned Neuroscience 10/10/21 DO Aleks Provider [address] [place] [address]6465 Stephanie Canela Assigned OBGYN Provider 12/05/21 MD Alee [address] [place], [place] [address] Krystin Christie Assigned PCP 01/08/22 SAURABH Engel SOFTWARE MAINTENANCE ENGINEER [address] [facility] [address] [place] [phone] Dima Hidalgo MD MD Otolaryngology 02/15/22 [facility] [place] [phone] documented as of this encounter
--- OUTSIDE RECORDS SUMMARY | 2022-05-09 10:57 | XMS_ITS | Encounter Summary ---
:1955 Author Organization [place] Address [address] [place] [address] Care Team Providers Name Role Phone Krystin Christie APRN CHANNEL SPECIALIST Primary Care Provider Sonja Tinajero [facility] Unavailable [phone] Sea Tsai DO Unavailable [phone] Sea Tsai DO Unavailable [phone] Stephanie Canela MD Unavailable [phone] Krystin Christie APRN, CNP Unavailable [phone] Dima Hidalgo MD Unavailable Dima Hidalgo MD Unavailable Reason for Visit Reason Onset Date Comments Consult 04/29/2022 Was seen by jennie Ramesh consultation with the CT scans. Stated there was an appt scheduled for 04/26/2022 at 11:00 scheduled by clinic. Saw nothing on MyChart. Encounter Details Date Type Department Care Team Description 04/29/2022 Telephone [facility] Dima Hidalgo MD Consult (Was seen by Clinic [address] [facility] [place] [address] consultation with the [address] scans. Stated there Trung [place] was an a ppt scheduled [id number] for 04/26/2022 at 11:00 scheduled by sarina inic. Saw nothing on MyChart. 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 documented as of this encounter Miscellaneous Notes Telephone Encounter - Lala Beltre RN - 05/02/2022 8:55 AM CDT Spoke with Becki and got her scheduled an appointment at [facility]. [facility] Lala Beltre RN [facility] ENT [address] [address] [email or web address] Office:[phone] Employed by [employer] Telephone Encounter - Fransico Ornelas - 04/29/2022 10:40 AM CDT Reason for Call: Other Consultation Detailed comments: Wants a callback about the CT scan she had with the Neurologist. Phone Number Patient can be reached at: Cell number on file: Telephone Information: Best Time: ANYTIME Can we leave a detailed message on this number? YES Call taken on 04/29/2022 at 10:40 AM by Fransico Ornelas documented in this encounter Plan of Treatment Upcoming Encounters Date Type Specialty Care Team Description 05/19/2022 Office Visit Dima Srivastava M D [address] [place], [place] [address] (Wo rk) 08/02/2022 Office Visit Neurology Yair Campos MD [address] [place], [place] [address] (Wo rk) documented as of this encounter Visit Diagnoses Not on filedocumented in this encounter Additional Health Concerns Assessment Noted Time PHQ-9 Depression Total Score: 8 01/07/2019 2:02 PM CDT documented as of this encounter Care Teams Tellers Supervisor Relationship Specialty Start Date End Date Krystin Christie PCP - General Nurse Practitioner 09/18/19 SAURABH Engel CHANNEL SPECIALIST [address] [place] [address] Sonja Tinajero, Pharmacist 08/24/20 [facility] [address] [place] [address] [place] [phone] Sea Tsai MD Neurology 08/04/21 DO Aleks [address] [place] [address]15 Sea Tsai Assigned Neuroscience 10/10/21 DO Aleks Provider [address] [place] [address] 8[address]35 Stephanie Canela Assigned OBGYN Provider 12/05/21 MD Alee [address] [place], [place] [address] Krystin Christie Assigned PCP 01/08/22 SAURABH Engel CHANNEL SPECIALIST [address] [facility] [address] [place] [address] Dima Hidalgo MD MD Otolaryngology 02/15/[address] [place] [address] Dima Hidalgo MD Assigned Surgical 03/12/[address] [place] [address] documented as of this encounter
--- OUTSIDE RECORDS SUMMARY | 2022-05-09 10:57 | XMS_ITS | Encounter Summary ---
:1955 Author Organization [place] Address [address] [facility] [place] [address] Care Team Providers Name Role Phone Krystin Christie APRN THREE DIMENSIONAL MAP MODELER Primary Care Provider [phone] Sonja Tinajero [facility] Unavailable [phone] Sea Tsai DO Unavailable [phone] Vidhi Paiz APRN [facility] Unavailable [phone] Reason for Visit Reason Onset Date Comments *-*INCOMING RECORDS*-* 10/01/2021 Appointment 2021 Encounter Details Date Type Department Care Team Description 10/01/2021 PRE VISIT [facility] Eulalio, *-*INCOMI RECORDS*-* Neurology Clinic Sea Fink DO (Appointment 10/01/2021) [address] 3[address] Floor [address] [place], [place] [phone] (Wo rk) [address] [phone] Social History Tobacco Use Types Packs/Day Years Used Date Smoking Tobacco: Never Smokeless Tobacco: Never Alcohol Use Standard Drinks/Week Comments No 0 (1 standard drink = 0.6 oz pure alcoho l) Sex Assigned at Date Recorded Female 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 Date: 10/01/2021 ?? Time: 115pm ?? [place] [facility] [place] ?? Referring provider: Alia Peterson PA-C ?? Referring providers clinic: [facility] ?? Reason for visit/diagnosis Abnormal MRI RECORDS REQUESTED FROM: Clinic name Comments Records Status Imaging Status [facility] ED Visit-09/13/2021 MR Brain-07/29/2021 MRA/MRV Head-07/29/2021 Care Everywhere Requested 09/21/2021-Request for Images faxed to [facility]-MR @ 739am 09/28/2021-[facility] Images now in PACS-MR @ 555am documented in this encounter Plan of Treatment Upcoming Encounters Date Type Specialty Care Team Description 05/19/2022 Office Visit ENT Dima Hidalgo M D [address] [place], [place] [address] (Wo rk) 08/02/2022 Office Visit Neurology Yair Campos MD [address] [place], [place] [address] (Wo rk) documented as of this encounter Visit Diagnoses Not on filedocumented in this encounter Additional Health Concerns Assessment Noted Time PHQ-9 Depression Total Score: 8 01/07/2019 2:02 PM CDT documented as of this encounter Care Teams Machine Operator Picker Relationship Specialty Start Date End Date Krystin Christie APRN THREE DIMENSIONAL MAP MODELER PCP - General Nurse Practitioner 09/18/19 [address] [facility] [address] [phone] Sonja Tinajero [facility] Pharmacist 08/24/20 1440 [facility] [address] [place] [phone] Sea Tsai DO MD Neurology 08/04/21 909 [place], [place] [address] Vidhi Paiz APRN THREE DIMENSIONAL MAP MODELER Assigned PCP 07/25/21 01/07/22 [address] [facility] [address] [place] [address] documented as of this encounter
--- OUTSIDE RECORDS SUMMARY | 2022-05-09 10:57 | XMS_ITS | Encounter Summary ---
:1955 Author Organization [place] Address [facility] [address] Care Team Providers Name Role Phone Krystin Christie APRN STORE FACILITY TECHNICIAN Primary Care Provider [phone] Sonja Tinajero [facility] Unavailable [phone] Sea Tsai DO Unavailable [phone] Sea Tsai DO Unavailable [phone] Stephanie Canela MD Unavailable [phone] Krystin Christie APRN STORE FACILITY TECHNICIAN Unavailable [phone] Dima Hidalgo MD Unavailable Dima Hidalgo MD Unavailable Encounter Details Date Type Department Care Team Description 04/28/2022 Travel Social History Tobacco Use Types Packs/Day Years Used Date Smoking Tobacco: Never Smokeless Tobacco: Never Alcohol Use Standard Drinks/Week Comments No 0 (1 standard drink = 0.6 oz pure alcoho l) Sex Assigned at Date Recorded Female 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 documented as of this encounter Plan of Treatment Upcoming Encounters Date Type Specialty Care Team Description 05/19/2022 Office Visit ENT Dima Hidalgo M D [address] [address] (Wo rk) 08/02/2022 Office Visit Neurology Yair Campos MD [address] [place] [address] (Wo rk) documented as of this encounter Visit Diagnoses Not on filedocumented in this encounter Additional Health Concerns Assessment Noted Time PHQ-9 Depression Total Score: 8 01/07/2019 2:02 PM CDT documented as of this encounter Care Teams Rug Weaver Relationship Specialty Start Date End Date Krystin Christie PCP - General Nurse Practitioner 09/18/19 SAURABH Engel STORE FACILITY TECHNICIAN [address] [facility] [address] [place] [phone] Sonja Tinajero, Pharmacist 08/24/[address] [phone] Sea Tsai MD Neurology 08/04/21 DO Aleks [address] [place] [address] Sea Tsai Assigned Neuroscience 10/10/21 DO Aleks Provider [address] [place] [address] 266525 Stephanie Canela Assigned OBGYN Provider 12/05/21 MD Alee [address] [place], [place] [address] Krystin Christie Assigned PCP 01/08/22 SAURABH Engel STORE FACILITY TECHNICIAN [address] [facility] [address] [phone] Dima Hidalgo MD MD Otolaryngology 02/15/[address] [id number] Dima Hidalgo MD Assigned Surgical 03/12/22 [address] [place] [address] documented as of this encounter
--- OUTSIDE RECORDS SUMMARY | 2022-05-09 10:58 | XMS_ITS | Encounter Summary ---
:1955 Author Organization [place] Address [facility] [place] [address] Care Team Providers Name Role Phone Krystin Christie APRN PIPING DESIGNER Unavailable [phone] Krystin Christie APRN PIPING DESIGNER Primary Care Provider [phone] Deyanira Stewart [facility] Unavailable Thalia Glass MD Unavailable [phone] Anat Fuller MD Unavailable [phone] Eric Abdi MD Unavailable [phone] Cecilia Aleman MD Unavailable [phone] Encounter Details Date Type Department Care Team Description 05/28/2020 Travel Social History Tobacco Use Types Packs/Day Years Used Date Smoking Tobacco: Never Smokeless Tobacco: Never Alcohol Use Standard Drinks/Week Comments No 0 (1 standard drink = 0.6 oz pure alcoho l) Sex Assigned at Date Recorded Female 08/17/2018 10:39 PM REGIONAL ADMINISTRATIVE ASSISTANT COVID-19 Exposure Response Date Recorded In the last month, have you been in contact with No / Unsure 05/28/2020 9:13 PM REGIONAL ADMINISTRATIVE ASSISTANT someone who was confirmed or suspected to have Coronavirus / COVID-19? documented as of this encounter Plan of Treatment Upcoming Encounters Date Type Specialty Care Team Description 05/19/2022 Office Visit ENT Dima Hidalgo M D [address] [address] (Wo rk) 08/02/2022 Office Visit Neurology Yair Campos MD [address] [place] [address] (Wo rk) documented as of this encounter Visit Diagnoses Not on filedocumented in this encounter Additional Health Concerns Assessment Noted Time PHQ-9 Depression Total Score: 8 01/07/2019 2:02 PM CDT documented as of this encounter Care Teams Shoe Stitcher Relationship Specialty Start Date End Date Krystin Christie PCP - General Nurse Practitioner 09/18/19 SAURABH Engel PIPING DESIGNER [address] [facility] [address] [place] [phone] Krystin Christie Assigned PCP 08/26/18 01/28/21 SAURABH Engel PIPING DESIGNER [address] [facility] [address] [place] [phone] Deyanira Stewart, Pharmacist Pharmacist 01/13/20 08/24/20 [facility] [address] [place] [phone] Joan Monroe, Assigned OBGYN Provider 05/08/2001/16/21 Thalia Engel MD [address] [facility] 100 [place], [place] [address] Anat Fuller Assigned Gastroenterology 05/08/20 12/12/20 MD Renee Provider [address] [facility] [address] [place], [place] [phone] Eric Adbi Assigned Musculoskeletal 05/08/20 03/27/21 MD Joo Provider [facility] [address] [place] [phone] Cecilia Aleman Assigned Surgical Provider 05/08/20 03/06/21 MD Lyly [address] [facility] [address] [facility] [address] [place] [address] documented as of this encounter
--- OUTSIDE RECORDS SUMMARY | 2022-05-09 10:58 | XMS_ITS | Encounter Summary ---
:1955 Author Organization [place] Address [facility] [place] [address] Care Team Providers Name Role Phone Krystin Christie APRN COLORED LIQUID PLASTIC APPLIER Unavailable [phone] Krystin Christie APRN COLORED LIQUID PLASTIC APPLIER Primary Care Provider [phone] Deyanira Stewart [facility] Unavailable Thalia Glass MD Unavailable [phone] Anat Fuller MD Unavailable [phone] Eric Abdi MD Unavailable [phone] Cecilia Aleman MD Unavailable [phone] Encounter Details Date Type Department Care Team Description 06/17/2020 Travel Social History Tobacco Use Types Packs/Day Years Used Date Smoking Tobacco: Never Smokeless Tobacco: Never Alcohol Use Standard Drinks/Week Comments No 0 (1 standard drink = 0.6 oz pure alcoho l) Sex Assigned at Date Recorded Female 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 documented as of this encounter Plan of Treatment Upcoming Encounters Date Type Specialty Care Team Description 05/19/2022 Office Visit ENT Dima Hidalgo M D [address] [address] (Wo rk) 08/02/2022 Office Visit Neurology Yair Campos MD 420 [facility] [place] [address] (Wo rk) documented as of this encounter Visit Diagnoses Not on filedocumented in this encounter Additional Health Concerns Assessment Noted Time PHQ-9 Depression Total Score: 8 01/07/2019 2:02 PM CDT documented as of this encounter Care Teams Dry Kiln Feeder Relationship Specialty Start Date End Date Krystin Christie PCP - General Nurse Practitioner 09/18/19 SAURABH Engel COLORED LIQUID PLASTIC APPLIER [address] [facility] [address] [place] [phone] Krystin Christie Assigned PCP 08/26/18 01/28/21 SAURABH Engel COLORED LIQUID PLASTIC APPLIER [address] [facility] [address] [place] [phone] Deyanira Stewart, Pharmacist Pharmacist 01/13/20 08/24/20 [facility] [address] [place] [address] [phone] Joan Monroe, Assigned OBGYN Provider 05/08/2001/16/21 Thalia Engel MD [address] [facility] 100 [place], [place] [address] Anat Fuller Assigned Gastroenterology 05/08/20 12/12/20 MD Renee Provider [address] [facility] [address] [place], [place] [phone] Eric Abdi Assigned Musculoskeletal 05/08/20 03/27/21 MD Joo Provider [facility] [address] [place] [phone] Cecilia Aleman Assigned Surgical Provider 05/08/20 03/06/21 MD Lyly [address] [facility] [address] [facility] [address] [place] [address] documented as of this encounter
--- OUTSIDE RECORDS SUMMARY | 2022-05-09 10:58 | XMS_ITS | Encounter Summary ---
:1955 Author Organization [place] Address [facility] [place] [address] Care Team Providers Name Role Phone Krystin Christie APRN SERVOMECHANISM ASSEMBLER Unavailable [phone] Krystin Christie APRN SERVOMECHANISM ASSEMBLER Primary Care Provider [phone] Deyanira Stewart [facility] Unavailable Thalia Glass MD Unavailable [phone] Anat Fuller MD Unavailable [phone] Eric Abdi MD Unavailable [phone] Cecilia Aleman MD Unavailable [phone] Reason for Visit Reason Onset Date Comments Refill Request 07/08/2020 Encounter Details Date Type Department Care Team Description 07/08/2020 MyC Refill [facility] Krystin Christie Ref ill Request Lola Engel APRN SERVOMECHANISM ASSEMBLER [address] [facility] [address] [facility] [address] [place] [address] [place] [address] [phone] Social History Tobacco Use Types Packs/Day Years Used Date Smoking Tobacco: Never Smokeless Tobacco: Never Alcohol Use Standard Drinks/Week Comments No 0 (1 standard drink = 0.6 oz pure alcoho l) Sex Assigned at Date Recorded Female 08/17/2018 10:39 PM FACTORY FOCUS 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 documented as of this encounter Miscellaneous Notes Telephone Encounter - Jameson Zuñiga RN - 07/09/2020 10:55 AM CST Medication already filled yesterday Jameson De Paz RN, BSN ORY FOCUS TECHNICIAN documented in this encounter Plan of Treatment Upcoming Encounters Date Type Specialty Care Team Description 05/19/2022 Office Visit ENT Dima Hidalgo M D [address] [facility] [place], [place] [address] (Wo rk) 08/02/2022 Office Visit Neurology Yair Campos MD [address] [facility] [address] [place], [place] [id number] (Wo rk) documented as of this encounter Visit Diagnoses Diagnosis KIERRA (generalized anxiety disorder) Generalized anxiety disorder documented in this encounter Additional Health Concerns Assessment Noted Time PHQ-9 Depression Total Score: 8 01/07/2019 2:02 PM CDT documented as of this encounter Care Teams Wreath Machine Tender Relationship Specialty Start Date End Date Krystin Christie PCP - General Nurse Practitioner 09/18/19 SAURABH Engel SERVOMECHANISM ASSEMBLER [address] [facility] [place] [id number] Kyrstin Christie Assigned PCP 08/26/18 01/28/21 SAURABH Engel SERVOMECHANISM ASSEMBLER [address] [facility] [place] [id number] Deyanira Stewart, Pharmacist Pharmacist 01/13/20 08/24/20 [facility] [address], [place] [phone] Joan Monroe, Assigned OBGYN Provider 05/08/2001/16/21 Thalia Engel MD [address] [address] [place] [address] Anat Fuller Assigned Gastroenterology 05/08/20 12/12/20 MD Renee Provider [address] [facility] [address] [place], [place] [address] Eric Adbi Assigned Musculoskeletal 05/08/20 03/27/21 MD Joo Provider [place] [address] [place] [address] Cecilia Aleman Assigned Surgical Provider 05/08/20 03/06/21 MD Lyly [address] [facility] [address] [place], [place] [address] documented as of this encounter
--- OUTSIDE RECORDS SUMMARY | 2022-05-09 10:58 | XMS_ITS | Encounter Summary ---
:1955 Author Organization [place] Address [address] [facility] [address] Care Team Providers Name Role Phone Krystin Christie APRN METAL DRESSER Unavailable [phone] Krystin Christie APRN METAL DRESSER Primary Care Provider [phone] Deyanira Stewart [facility] Unavailable Thalia Glass MD Unavailable Anat Fuller MD Unavailable [phone] Eric Abdi MD Unavailable [phone] Cecilia Aleman MD Unavailable [phone] Reason for Visit Reason Comments Hives Encounter Details Date Type Department Care Team Description 05/28/2020 Emergency [facility] Edna Wood MD Herpes zoster without [facility] complication [address] [place], [place] [address] [place] [address] [place], [place] [id number] (Wo rk) Social History Tobacco Use Types Packs/Day Years Used Date Smoking Tobacco: Never Smokeless Tobacco: Never Alcohol Use Standard Drinks/Week Comments No 0 (1 standard drink = 0.6 oz pure alcoho l) Sex Assigned at Date Recorded Female 08/17/2018 10:39 PM TYPE CASTER COVID-19 Exposure Response Date Recorded In the last month, have you been in contact with No / Unsure 05/28/2020 9:13 PM TYPE CASTER someone who was confirmed or suspected to have Coronavirus / COVID-19? documented as of this encounter Last Filed Vital Signs Vital Sign Reading Time Taken Comments Blood Pressure 145/89 05/28/2020 9:25 PM TYPE CASTER Pulse 92 05/28/2020 9:25 PM TYPE CASTER Temperature 36.8 ??C (98.3 ??F) 05/28/2020 9:25 PM TYPE CASTER Respiratory Rate 20 05/28/2020 9:25 PM TYPE CASTER Oxygen Saturation 97% 05/28/2020 9:25 PM TYPE CASTER Inhaled Oxygen Concentration - - Weight - - Height - - Body Mass Index - - documented in this encounter Discharge Instructions Discharge InstructionsEdna Wood MD - 05/29/2020 1:07 AM CST Continue your usual treatment for urticaria. Start taking Valtrex for shingles. You need to return immediately if you have significant worsening of rash that is blisterlike in multiple areas of your body or if you develop sores in your mouth, fever, vomiting, or any other new or concerning symptoms. Otherwise, please follow-up with your primary care provider. I have also provided you with a air sampling and monitoring for follow-up. CASTER AttachmentsThe following attachments cannot be sent through Care Everywhere. Shingles (Herpes Zoster) (Citizen Of [place])documented in this encounter Medications at Time of Discharge Medication Sig Dispensed Refills Start Date End Date albuterol (PROAIR Inhale 2 puffs into 1 Inhaler 3 0 HFA/PROVENTIL the lungs every 6 HFA/VENTOLIN HFA) 108 hours as needed for (90 Base) MCG/ACT shortness of breath / inhalerIndications: dyspnea or wheezing Mild persistent asthma with acute exacerbation cetirizine (ZYRTEC) 10 Take 1 tablet (10 [...] MG/0.3ML injection the muscle once as needed. ipratropium - albuterol Take 1 vial (3 mLs) 1 Box 0 0.5 mg/2.5 mg/3 mL by nebulization every (DUONEB) 0.5-2.5 (3) 6 hours as needed for MG/3ML neb shortness of breath / solutionIndications: dyspnea or wheezing Mild persistent asthma with acute exacerbation montelukast (SINGULAIR) Take 1 tablet (10 mg) [...] 0 Cholecalciferol, 1000 mouth daily units TABS busPIRone (BUSPAR) 10 Take 1 tablet (10 mg) 180 tablet 0 07/08/2020 MG tabletIndications: by mouth 2 times KIERRA (generalized daily anxiety disorder) glipiZIDE (GLUCOTROL Take 1 tablet (5 mg) 90 tablet 0 01/1207/08/2020 XL) 5 MG 24 hr by mouth daily tabletIndications: Type 2 diabetes mellitus with complication, without long-term current use of insulin (H) levothyroxine Take 1 tablet (50 90 tablet 0 01/13/202006/17 (SYNTHROID/LEVOTHROID) mcg) by mouth daily 50 MCG tabletIndications: Subclinical hypothyroidism metFORMIN Take 3 tablets (1,500 360 tablet 0 01/13/2020 (GLUCOPHAGE-XR) 500 MG mg) by mouth daily 24 hr (with dinner) TAKE 4 tabletIndications: Type TABLETS(2000 MG) BY 2 diabetes mellitus MOUTH DAILY with complication, without long-term current use of insulin (H) valACYclovir (VALTREX) Take 1 tablet (1,000 21 tablet 0 06/202011/24/2021 1000 mg tablet mg) by mouth 3 times daily for 7 days documented as of this encounter ED Notes Robert Alves, RN - 05/28/2020 9:17 PM CST Pt arrives with complaints of urticaria which she has a history of and takes a variation of 24hr allergy medication for. She notes increasing itchiness and a burning to R upper back that she says feelssimilar to when she had shingles. She also notes hive to posterior neck area and L ankle. ABCs intact, A/O x4. CASTER Edna Wood MD - 05/28/2020 9:11 PM CST Images from the original note were not included. History Chief Complaint Rash The history is provided by the patient. Becki Ridley is a 65 year old female with a history of NIDDM who presents for evaluation of a rash. Becki has been struggling with urticaria for weeks for which she is taking antihistamines and following with an central scheduler. She expresses concern for recurrent shingles today as there is an area ofnew pruritic rash on her left upper back and her right foot (it was gooey like shingles). She alsohad a burning pain on her right mid back a few days ago. She does remark that she forgot to take hermedications for urticaria yesterday evening so she awoke with pruritis last night and rubbed her back on a door to itch it. She is unsure if some skin changes on her right back are related to this or to a new rash. She denies any mouth sores, fevers, chills, or vomiting. She has not recently started any new medications. Allergies Cipro [Quinolones] Ciprofloxacin Codeine Codeine Sulfate Vicodin [Hydrocodone-Acetaminophen] Darvocet [Propoxyphene N-Apap] Pioglitazone Medications Albuterol inhaler Buspar Glipizide Duoneb Levothyroxine Metformin Xyzal Bupropion Hydroxyzine Lasix Past Medical History Angioedema Anxiety Arthritis Asthma Depression Obesity Type 2 diabetes Hypertension Nonalcoholic steatohepatitis PCOS Restless leg syndrome Obstructive sleep apnea Subclinical hypothyroidism Shingles PVCs Past Surgical History Eye surgery Liver biopsy percutaneous Family History Mother - depression, dementia, hypertension, cancer, diabetes, glaucoma, cerebrovascular disease, lung cancer, liver cancer Daughter(s) - Carmen's thyroiditis, depression, anxiety, PCOS Father - depression, hypertension, diabetes Sister - bladder cancer Social History The patient was unaccompanied to the ED. Smoking Status: never Smokeless Tobacco: never Alcohol Use: no Drug Use: no Review of Systems Constitutional: Negative for chills and fever. HENT: Negative for mouth sores. Gastrointestinal: Negative for vomiting. Skin: Positive for rash (pruritic). All other systems reviewed and are negative. Physical Exam Patient Vitals for the past 24 hrs: BP Temp Temp src Pulse Resp SpO2 05/28/205 (!) 145/89 98.3 ??F (36.8 ??C) Oral 92 20 97 % Physical Exam General: Well-developed and well-nourished. Well appearing middle aged woman. Cooperative. Head: Atraumatic. Eyes: Conjunctivae, lids, and sclerae are normal. ENT: No intraoral lesions. Neck: Supple. Normal range of motion. Resp: No respiratory distress. GI: Non-distended. MS: Normal ROM. No bilateral lower extremity edema. Skin: Warm. Non-diaphoretic. No pallor. There is what appears to be superficial abrasion or superficial ecchymosis on the right thoracic back as photographed below. Also photograph below are small, nonvesicular papules on the right heel and what appear to be tiny vesicular lesions on the medial aspectof the right foot all without surrounding cellulitis. Finally, there is a small cluster of papules on the left thoracic back photograph below without surrounding cellulitis. There are no vesicles here. Neuro: Awake. A&Ox3. Normal strength. Psych: Normal mood and affect. Normal speech. Vitals reviewed. Medial right foot: Lateral right heel: Left thoracic back: Right thoracic back: Emergency Department Course Emergency Department Course: Past medical records, nursing notes, and vitals reviewed. 2200 I physically examined the patient as documented above. Findings and plan explained to Becki. She was discharged home with instructions regarding supportive care, medications, and reasons to return. The importance of close follow-up was reviewed. She was prescribed Valtrex. I personally answered all related questions prior to discharge. Impression & Plan Medical Decision Making: Becki is a 65-year-old woman who is concerned because she had some burning pain on the right side of her back a couple of days ago and awoke in the middle of the night with diffuse pruritus. She has been struggling with urticaria and did forget to take her medications last night and was also rubbingher back on the door to help with the pruritus. She presents today concerned about shingles because she has a small cluster of rash in her left thoracic back as well as on her right foot. She denies all other concerns or complaints and actually appears quite well. She describes several episodes of recurrent shingles. There is what appears to be cluster of vesicles on the medial aspect of her right foot near the MTPs. The remaining areas of rash have no vesicular lesion so it is unclear if this is truly zoster or not in both locations. I have very low suspicion for this as she does not appear systemically ill to suggest disseminated zoster nor does she have immunosuppression to suggest she would beat increased risk for this. It is certainly possible the rash on her back is unrelated to shingles (t hey are not vesicular nor crusted over) and the papules on her right heel are not consistent with shingles today. Because there is concern that the cluster on the medial right foot is shingles I think it is prudent to treat with Valtrex going forward. The area on her right thoracic back is not consistent with rash and appears to be superficial trauma from rubbing her back and itching it last night. Idiscussed at length with Becki symptoms of disseminated shingles including, but not limited to, development of fever and encouraged her to return immediately should she develop these which would require admission for IV antivirals. She has not recently started any medications and she has no mouth sores to suggest unusual etiology of her rash such as SJS. She will continue to work with her allergistand take her usual treatments for urticaria although I recommended she follow-up with dermatology given her struggle with rash (urticaria and today's concerns) over the last several weeks. All of Becki's questions were answered and she verbalized understanding. Amenable to discharge. Diagnosis: ICD-10-CM 1. Herpes zoster without complication B02.9 Disposition: Discharged home. Discharge Medications: New Prescriptions VALACYCLOVIR (VALTREX) 1000 MG TABLET Take 1 tablet (1,000 mg) by mouth 3 times daily for 7 days Scribe Disclosure: I, Ivana Sexton, am serving as a scribe at 9:59 PM on 05/28/2020 to document services personally performed by Edna Wood MD based on my observations and the provider's statements to me. Edna Wood MD 05/30/20 1512 CASTER documented in this encounter Plan of Treatment Upcoming Encounters Date Type Specialty Care Team Description 05/19/2022 Office Visit ENT Dima Hidalgo M D [address] [place], [place] [address] (Wo rk) 08/02/2022 Office Visit Neurology Yair Campos MD [address] [facility] [place] [address] (Wo rk) documented as of this encounter Visit Diagnoses Diagnosis Herpes zoster without complication documented in this encounter Additional Health Concerns Assessment Noted Time PHQ-9 Depression Total Score: 8 01/07/2019 2:02 PM CDT documented as of this encounter Care Teams Driller Operator Relationship Specialty Start Date End Date Krystin Christie PCP - General Nurse Practitioner 09/18/19 SAURABH Engel METAL DRESSER [address] [facility] [place] [address] Krystin Christie Assigned PCP 08/26/18 01/28/21 SAURABH Engel METAL DRESSER [address] [facility] [place] [address] Deyanira Stewart, Pharmacist Pharmacist 01/13/20 08/24/20 [facility] [address] [place], [place] [phone] Joan Monroe, Assigned OBGYN Provider 05/08/2001/16/21 Thalia Engel MD [address] [address] Anat Fuller Assigned Gastroenterology 05/08/20 12/12/20 MD Renee Provider [address] [facility] [address] [place] [address] Eric Abdi Assigned Musculoskeletal 05/08/20 03/27/21 MD Joo Provider [facility] [address] [place] [address] Cecilia Aleman Assigned Surgical Provider 05/08/20 03/06/21 MD Lyly [address] [facility] [address] [place] [address] documented as of this encounter
--- OUTSIDE RECORDS SUMMARY | 2022-05-09 10:58 | XMS_ITS | Encounter Summary ---
:1955 Author Organization [place] Address [facility] [place] [address] Care Team Providers Name Role Phone Krystin Christie APRN HAND BULLDOZER Unavailable [phone] Krystin Christie APRN HAND BULLDOZER Primary Care Provider [phone] Deyanira Stewart [facility] Unavailable Thalia Glass MD Unavailable [phone] Anat Fuller MD Unavailable [phone] Eric Abdi MD Unavailable [phone] Cecilia Aleman MD Unavailable [phone] Encounter Details Date Type Department Care Team Description 06/24/2020 Travel Social History Tobacco Use Types Packs/Day Years Used Date Smoking Tobacco: Never Smokeless Tobacco: Never Alcohol Use Standard Drinks/Week Comments No 0 (1 standard drink = 0.6 oz pure alcoho l) Sex Assigned at Date Recorded Female 08/17/2018 10:39 PM JAILER CHIEF COVID-19 Exposure Response Date Recorded In the last month, have you been in contact with No / Unsure 06/24/2020 3:06 PM JAILER CHIEF someone who was confirmed or suspected to have Coronavirus / COVID-19? documented as of this encounter Plan of Treatment Upcoming Encounters Date Type Specialty Care Team Description 05/19/2022 Office Visit ENT Dima Hidalgo M D [address] [place] [address] (Wo rk) 08/02/2022 Office Visit Neurology Yair Campos MD [address] [place] [address] (Wo rk) documented as of this encounter Visit Diagnoses Not on filedocumented in this encounter Additional Health Concerns Assessment Noted Time PHQ-9 Depression Total Score: 8 01/07/2019 2:02 PM CDT documented as of this encounter Care Teams Food Mobile Driver Relationship Specialty Start Date End Date Krystin Christie PCP - General Nurse Practitioner 09/18/19 SAURABH Engel HAND BULLDOZER [address] [facility] [address] [place] [phone] Krystin Christie Assigned PCP 08/26/18 01/28/21 SAURABH Engel HAND BULLDOZER [address] [facility] [address] [place] [phone] Deyanira Stewart, Pharmacist Pharmacist 01/13/20 08/24/20 [facility] [address] [place] [phone] Joan Monroe, Assigned OBGYN Provider 05/08/2001/16/21 Thalia Engel MD [address] [facility] [address] [place], [place] [address] Anat Fuller Assigned Gastroenterology 05/08/20 12/12/20 MD Renee Provider [address] [facility] [address] [place], [place] [phone] Eric Abdi Assigned Musculoskeletal 05/08/20 03/27/21 MD Joo Provider [facility] [address] [place] [id number] Cecilia Aleman Assigned Surgical Provider 05/08/20 03/06/21 MD Lyly [address] [facility] [address] [place] [address] documented as of this encounter
--- OUTSIDE RECORDS SUMMARY | 2022-05-09 10:58 | XMS_ITS | Encounter Summary ---
:1955 Author Organization [place] Address [address] [facility] [place] [address] Care Team Providers Name Role Phone Krystin Christie APRN MANAGER STARS Unavailable [phone] Krystin Christie APRN MANAGER STARS Primary Care Provider [phone] Deyanira Stewart [facility] Unavailable Reason for Visit Reason Onset Date Comments Refill Request 01/13/2020 Encounter Details Date Type Department Care Team Description 01/13/2020 Refill [facility] Krystin Christie istine, Refill Request [facility] [place] MANAGER STARS [address] [facility] [address] [facility] [address] [place] [address] [place] [address] [phone] Social History Tobacco Use Types Packs/Day Years Used Date Smoking Tobacco: Never Smokeless Tobacco: Never Alcohol Use Standard Drinks/Week Comments No 0 (1 standard drink = 0.6 oz pure alcoho l) Sex Assigned at Date Recorded Female 08/17/2018 10:39 PM MARKETING RESEARCH ANALYST documented as of this encounter Miscellaneous Notes Telephone Encounter - Triny Lomeli RN - 01/13/2020 3:35 PM CDT Order corrected to new pharmacy Triny Lomeli RN Telephone Encounter - Alyssa Cannon - 01/13/2020 3:10 PM CDT The pt was calling and she needs all of the selected medications resent to the [facility] instead of [facility]. Please send as soon as possible. Thank you. Alyssa Cannon on 01/13/2020 at 3:13 PM documented in this encounter Plan of Treatment Upcoming Encounters Date Type Specialty Care Team Description 05/19/2022 Office Visit ENT Dima Hidalgo M D [address] [facility] [place], [place] [address] (Wo rk) 08/02/2022 Office Visit Neurology Yair Campos MD [address] [place] [address] (Wo rk) documented as of this encounter Visit Diagnoses Diagnosis Type 2 diabetes mellitus without complic ation, without long-term current use of insulin (H) Alopecia Alopecia, unspecified History of corticosteroid therapy Personal history of systemic steroid the rapy Morbid obesity, unspecified obesity type (H) Type 2 diabetes mellitus with complicati on, without long-term current use of insulin (H) Subclinical hypothyroidism Other specified acquired hypothyroidism documented in this encounter Additional Health Concerns Assessment Noted Time PHQ-9 Depression Total Score: 8 01/07/2019 2:02 PM CDT documented as of this encounter Care Teams Electronics System Mechanic Relationship Specialty Start Date End Date Krystin Christie APRN MANAGER STARS PCP - General Nurse Practitioner 09/18/[address] [place] [address] [place] [address] Krystin Christie APRN MANAGER STARS Assigned PCP 08/26/18 01/28/[address] [place] [address] [place] [address] Deyanira Stewart RP Pharmacist Pharmacist 01/13/20 08/24/[address] [place] [address] documented as of this encounter
--- OUTSIDE RECORDS SUMMARY | 2022-05-09 10:58 | XMS_ITS | Encounter Summary ---
:1955 Author Organization [place] Address [address] [place] [address] Care Team Providers Name Role Phone Krystin Christie APRN PUBLIC FINANCE SPECIALIST Unavailable [phone] Krystin Christie APRN PUBLIC FINANCE SPECIALIST Primary Care Provider [phone] Thalia Glass MD Unavailable Anat Fuller MD Unavailable [phone] Eric Abdi MD Unavailable [phone] Cecilia Aleman MD Unavailable [phone] Sonja Tinajero [facility] Unavailable [phone] Encounter Details Date Type Department Care Team Description 12/08/2020 Records - [facility] CONVERSION Provider, Histor ical Social History Tobacco Use Types Packs/Day Years Used Date Smoking Tobacco: Never Smokeless Tobacco: Never Alcohol Use Standard Drinks/Week Comments No 0 (1 standard drink = 0.6 oz pure alcoho l) Sex Assigned at Date Recorded Female 08/17/2018 10:39 PM IUSS MASTER ANALYST documented as of this encounter Plan of Treatment Upcoming Encounters Date Type Specialty Care Team Description 05/19/2022 Office Visit ENT Dima Hidalgo M D [address] [place], [place] [address] (Wo rk) 08/02/2022 Office Visit Neurology Yair Campos MD [address] [place] [phone] (Wo rk) documented as of this encounter Procedures Procedure Name Priority Date/Time Associated Diagnosis Comme nts XR CHEST 2 VIEWS Routine 06/28/2001 12:00 AM Resu lts for this IUSS MASTER ANALYST procedure are i n the results section. documented in this encounter Results XR Chest 2 Views (06/28/2001 12:00 AM IUSS MASTER ANALYST) Anatomical Region Laterality Modality Chest Digital Radiography Specimen (Source) Anatomical Location Collection Method / Collectio n Time Received Time / Laterality Volume Narrative 06/28/2001 12:00 AM IUSS MASTER ANALYST See Historical Hospital Medical Record f or documentation Procedure Note Provider, Historical - 12/08/2020Formatt ing of this note might be different from the original. See Historical Hospital Medical Record f or documentation Historical Provider IMG DIAGNOSTIC IMAGING ORDER CHAI documented in this encounter Visit Diagnoses Not on filedocumented in this encounter Additional Health Concerns Assessment Noted Time PHQ-9 Depression Total Score: 8 01/07/2019 2:02 PM CDT documented as of this encounter Care Teams Decorating And Assembly Supervisor Relationship Specialty Start Date End Date Krystin Christie PCP - General Nurse Practitioner 09/18/19 SAURABH Engel PUBLIC FINANCE SPECIALIST [address] [facility] [place] [id number] Krystin Christie Assigned PCP 08/26/18 01/28/21 SAURABH Engel PUBLIC FINANCE SPECIALIST [address] [facility] [place] [address] Joan Monroe, Isha OBGYN Provider 05/08/2001/16/21 Thalia Engel MD [address] [facility] [place] [address] Anat Fuller Assigned Gastroenterology 05/08/20 12/12/20 MD Renee Provider [address] [facility] [address] [place], [place] [address] Eric Abdi Assigned Musculoskeletal 05/08/20 03/27/21 MD Joo Provider TRIA [address] [place] [address] Cecilia Aleman Assigned Surgical Provider 05/08/20 03/06/21 MD Lyly 420 [facility] 394 [place] [address] Sonja Tinajero Pharmacist 08/24/20 Dev, [facility] [address] [facility] [place] [address] documented as of this encounter
--- OUTSIDE RECORDS SUMMARY | 2022-05-09 10:58 | XMS_ITS | Encounter Summary ---
:1955 Author Organization [place] Address [facility] [place] [address] Care Team Providers Name Role Phone Krystin Christie APRN SECOND RIGGER Unavailable [phone] Krystin Christie APRN SECOND RIGGER Primary Care Provider [phone] Deyanira Stewart [facility] Unavailable Thalia Glass MD Unavailable [phone] Anat Fuller MD Unavailable [phone] Eric Abdi MD Unavailable [phone] Cecilia Aleman MD Unavailable [phone] Reason for Visit TAMIE Physical Therapy (Routine) - Closed Specialty Diagnoses / Procedures Referred By Contact Refer red To Contact Diagnoses Rotator cuff syndrome of left shoulder Eric Abdi [facility] Sports MD & Physical Therapy - [facility] [address] [address] [place] [address] [place] [address] Fax: Referral ID Status Reason Start Date Expiration Date Visits Requ ested Visits Authorized [id number] Closed 09/25/2019 07/16/2020 40 38 Encounter Details Date Type Department Care Team Description 06/24/2020 Therapy Visit [facility] Osito Howell PT Rotator cuff syndrome of left shoulder; Rehabilitation Services [address] Adhesive capsulitis of left shoulder [facility] 300 [address] [place] [id number] Social History Tobacco Use Types Packs/Day Years Used Date Smoking Tobacco: Never Smokeless Tobacco: Never Alcohol Use Standard Drinks/Week Comments No 0 (1 standard drink = 0.6 oz pure alcoho l) Sex Assigned at Date Recorded Female 08/17/2018 10:39 PM AMMONIA BOX OPERATOR COVID-19 Exposure Response Date Recorded In the last month, have you been in contact with No / Unsure 06/24/2020 3:06 PM AMMONIA BOX OPERATOR someone who was confirmed or suspected to have Coronavirus / COVID-19? documented as of this encounter Plan of Treatment Upcoming Encounters Date Type Specialty Care Team Description 05/19/2022 Office Visit ENT Dima [facility]idalgo M D [address] [facility] [place], [place] [address] (Wo rk) 08/02/2022 Office Visit Neurology Yair Campos MD [address] [facility] [place], [place] [address] (Wo rk) documented as of this encounter Procedures Procedure Name Priority Date/Time Associated Diagnosis Comme nts GA MANUAL THERAPY, EA 15 Routine 06/24/2020 3:51 PM Rotator cu ff syndrome MIN AMMONIA BOX OPERATOR of left shoulder Adhesive capsulitis of left shoulder GA THERAPEUTIC Routine 06/24/2020 3:51 PM Rotator cuff syndrom e EXERCISES. EA 15 MIN AMMONIA BOX OPERATOR of left bry ulder Adhesive capsulitis of left shoulder documented in this encounter Visit Diagnoses Diagnosis Rotator cuff syndrome of left shoulder Disorders of bursae and tendons in shoul barrera region, unspecified Adhesive capsulitis of left shoulder Adhesive capsulitis of shoulder documented in this encounter Additional Health Concerns Assessment Noted Time PHQ-9 Depression Total Score: 8 01/07/2019 2:02 PM CDT documented as of this encounter Care Teams Vp Ad Sales West Relationship Specialty Start Date End Date Krystin Christie PCP - General Nurse Practitioner 09/18/19 SAURABH Engel SECOND RIGGER [address] [facility] [address] [place] [id number] Krystin Christie Assigned PCP 08/26/18 01/28/21 SAURABH Engel SECOND RIGGER [address] [facility] [place] [address] Deyanira Stewart, Pharmacist Pharmacist 01/13/20 08/24/20 [facility] [address] [place] [address] Joan Monroe, Assigned OBGYN Provider 05/08/2001/16/21 Thalia Engel MD [address] [facility] [address] [place], [place] [address] Anat Fuller Assigned Gastroenterology 05/08/20 12/12/20 MD Renee Provider [address] [facility] [place], [place] [phone] Eric Abdi Assigned Musculoskeletal 05/08/20 03/27/21 MD Joo Provider TRIA [address] [place] [phone] Cecilia Aleman Assigned Surgical Provider 05/08/20 03/06/21 MD Lyly [address] [facility] [address] [place], [place] [phone] documented as of this encounter
--- OUTSIDE RECORDS SUMMARY | 2022-05-09 10:58 | XMS_ITS | Encounter Summary ---
:1955 Author Organization [place] Address [facility] [address] Care Team Providers Name Role Phone Krystin Christie APRN FILM LOADER Unavailable [phone] Krystin Christie APRN FILM LOADER Primary Care Provider [phone] Deyanira Stewart [facility] Unavailable Thalia Glass MD Unavailable [phone] Anat Fuller MD Unavailable [phone] Eric Abdi MD Unavailable [phone] Cecilia Aleman MD Unavailable [phone] Encounter Details Date Type Department Care Team Description 06/01/2020 Travel Social History Tobacco Use Types Packs/Day Years Used Date Smoking Tobacco: Never Smokeless Tobacco: Never Alcohol Use Standard Drinks/Week Comments No 0 (1 standard drink = 0.6 oz pure alcoho l) Sex Assigned at Date Recorded Female 08/17/2018 10:39 PM SMALL STOCK FACER COVID-19 Exposure Response Date Recorded In the last month, have you been in contact with No / Unsure 06/01/2020 12:55 PM SMALL STOCK FACER someone who was confirmed or suspected to have Coronavirus / COVID-19? documented as of this encounter Plan of Treatment Upcoming Encounters Date Type Specialty Care Team Description 05/19/2022 Office Visit ENT Dima Hidalgo M D [address] [place] [place] [address] (Wo rk) 08/02/2022 Office Visit Neurology Yair Campos MD [address] [facility] [place] [address] (Wo rk) documented as of this encounter Visit Diagnoses Not on filedocumented in this encounter Additional Health Concerns Assessment Noted Time PHQ-9 Depression Total Score: 8 01/07/2019 2:02 PM CDT documented as of this encounter Care Teams Clerical Adjuster Relationship Specialty Start Date End Date Krystin Christie PCP - General Nurse Practitioner 09/18/19 SAURABH Engel FILM LOADER [address] [facility] [address] [place] [phone] Krystin Christie Assigned PCP 08/26/18 01/28/21 SAURABH Engel FILM LOADER [address] [facility] [address] [place] [phone] Deyanira Stewart, Pharmacist Pharmacist 01/13/20 08/24/20 [facility] [address] [place] [phone] Joan Monroe, Assigned OBGYN Provider 05/08/2001/16/21 Thalia Engel MD [address] [facility] 100 [place], [place] [address] Anat Fuller Assigned Gastroenterology 05/08/20 12/12/20 MD Renee Provider 516 [facility] [address] [place], [place] [id number] Eric Abdi Assigned Musculoskeletal 05/08/20 03/27/21 MD Joo Provider TRIA [address] [place] [phone] Cecilia Aleman Assigned Surgical Provider 05/08/20 03/06/21 MD Lyly 420 [facility] [address] [facility] [address] [place] [address] documented as of this encounter
--- OUTSIDE RECORDS SUMMARY | 2022-05-09 10:58 | XMS_ITS | Encounter Summary ---
:1955 Author Organization [place] Address [address] [facility] [place] [address] Care Team Providers Name Role Phone Krystin Christie APRN LICENSED ACUPUNCTURIST Unavailable [phone] Krystin Christie APRN LICENSED ACUPUNCTURIST Primary Care Provider [phone] Deyanira Stewart [facility] Unavailable Thalia Glass MD Unavailable [phone] Anat Fuller MD Unavailable [phone] Eric Abdi MD Unavailable [phone] Cecilia Aleman MD Unavailable [phone] Reason for Visit TAMIE Physical Therapy (Routine) - Closed Specialty Diagnoses / Procedures Referred By Contact Refer red To Contact Physical Therapist / Diagnoses L Shoulder / Eric Abdi @ / Medicare & BCBS referral exists KB Eric Abdi [facility] Physical Therapy Procedures EXTREMITY FOLLOW UP MD [facility] [address] Therapy - [place] [address] [place] [address] [place] [address] Phone: Fax: Referral ID Status Reason Start Date Expiration Date Visits Requ ested Visits Authorized [id number] Closed 07/20/2020 07/16/2021 40 38 Encounter Details Date Type Department Care Team Description 07/20/2020 Therapy Visit [facility] Osito Howell, PT Rotator cuff syndrome of left shoulder; Rehabilitation Services [address] Adhesive capsulitis of left shoulder [facility] 300 [address] [place] [address] [phone] Social History Tobacco Use Types Packs/Day Years Used Date Smoking Tobacco: Never Smokeless Tobacco: Never Alcohol Use Standard Drinks/Week Comments No 0 (1 standard drink = 0.6 oz pure alcoho l) Sex Assigned at Date Recorded Female 08/17/2018 10:39 PM SALES ENGINEERING MANAGER COVID-19 Exposure Response Date Recorded In the last month, have you been in contact with No / Unsure 07/08/2020 8:25 AM SALES ENGINEERING MANAGER someone who was confirmed or suspected to have Coronavirus / COVID-19? documented as of this encounter Progress Notes Osito Howell, PT - 07/20/2020 2:10 PM CST Subjective: HPI Physical Exam Objective: System Shoulder Evaluation: ROM: AROM: Flexion: Left: 160 Extension: Left: 50 Abduction: Left: 150 External Rotation: Left: 35 PROM: Flexion: Left: 170 Extension: Left: 60 Abduction: Left: 160 Internal Rotation: Left: 70 External Rotation: Left: 65 Strength: Flexion: Left:4+/5 Pain: Extension: Left: 5/5 Pain: Abduction: Left: 4+/5 Pain: Adduction: Left: 5/5 Pain: Internal Rotation: Left:5/5 Pain: External Rotation: Left:4/5 Pain: General ROS Assessment/Plan: PROGRESS REPORT Progress reporting period is from 06-03-2020 to 07-20-20. SUBJECTIVE Subjective changes noted by patient: Pt notes decreased pain and increased mobility. Current pain level is 1/10 . Previous pain level was 5/10 . Changes in function: Pt notes increased ease with reaching and dressing. Pt still notes pain when her dog tugs on its leash Adverse reaction to treatment or activity: None OBJECTIVE Changes noted in objective findings: See above ASSESSMENT/PLAN Updated problem list and treatment plan: Diagnosis 1: Left adhesive capsulitis Pain - hot/cold therapy, manual therapy, self management, education and home program Decreased ROM/flexibility - manual therapy, therapeutic exercise, therapeutic activity and home program Decreased strength - therapeutic exercise, therapeutic activities and home program STG/LTGs have been met or progress has been made towards goals: Yes, Assessment of Progress: The patient's condition is improving. Self Management Plans: Patient has been instructed in a home treatment program. I have re-evaluated this patient and find that the nature, scope, duration and intensity of the therapy is appropriate for the medical condition of the patient. Becki continues to require the following intervention to meet STG and LTG's: PT intervention is nolonger required to meet STG/LTG. Recommendations: This patient is ready to be discharged from therapy and continue their home treatment program. Please refer to the daily flowsheet for treatment today, total treatment time and time spent performing 1:1 timed codes. S ENGINEERING MANAGER documented in this encounter Plan of Treatment Upcoming Encounters Date Type Specialty Care Team Description 05/19/2022 Office Visit ENT Dima Hidalgo M D [address] [place], [place] [address] (Wo rk) 08/02/2022 Office Visit Neurology Yair Campos MD [address] [facility] [place], [place] [address] (Wo rk) documented as of this encounter Procedures Procedure Name Priority Date/Time Associated Diagnosis Comme nts [place] MANUAL THERAPY, EA 15 Routine 07/20/2020 4:56 PM Rotator cu ff syndrome MIN SALES ENGINEERING MANAGER of left shoulder Adhesive capsulitis of left shoulder [place] THERAPEUTIC Routine 07/20/2020 4:56 PM Rotator cuff syndrom e EXERCISES. EA 15 MIN SALES ENGINEERING MANAGER of left bry ulder Adhesive capsulitis of [...] documented as of this encounter Care Teams Rounding Machine Tender Relationship Specialty Start Date End Date Krystin Christie PCP - General Nurse Practitioner 09/18/19 SAURABH Engel LICENSED ACUPUNCTURIST [address] [facility] [address] [place] [phone] Krystin Christie Assigned PCP 08/26/18 01/28/21 SAURABH Engel LICENSED ACUPUNCTURIST [address] [facility] [address] [place] [phone] Deyanira Stewart, Pharmacist Pharmacist 01/13/20 08/24/20 [facility] [address] [place], [place] [phone] Joan Monroe, Assigned OBGYN Provider 05/08/2001/16/21 Thalia Engel MD [address] [facility] 100 [place] [address] Anat Fuller Assigned Gastroenterology 05/08/20 12/12/20 MD Renee Provider 6 [facility] [place], [place] [address] Eric Abdi Assigned Musculoskeletal 05/08/20 03/27/21 MD Joo Provider [place] [address] [place] [address] Cecilia Aleman Assigned Surgical Provider 05/08/20 03/06/21 MD Lyly 420 [facility] [address] [place], [place] [address] documented as of this encounter
--- OUTSIDE RECORDS SUMMARY | 2022-05-09 10:58 | XMS_ITS | Encounter Summary ---
:1955 Author Organization [place] Address [facility] [place] [address] Care Team Providers Name Role Phone Krystin Christie APRN CONTINUOUS IMPROVEMENT ANALYST Unavailable [phone] Krystin Christie APRN CONTINUOUS IMPROVEMENT ANALYST Primary Care Provider [phone] Deyanira Stewart [facility] Unavailable Thalia Glass MD Unavailable [phone] Anat Fuller MD Unavailable [phone] Eric Abdi MD Unavailable [phone] Cecilia Aleman MD Unavailable [phone] Encounter Details Date Type Department Care Team Description 06/03/2020 Travel Social History Tobacco Use Types Packs/Day Years Used Date Smoking Tobacco: Never Smokeless Tobacco: Never Alcohol Use Standard Drinks/Week Comments No 0 (1 standard drink = 0.6 oz pure alcoho l) Sex Assigned at Date Recorded Female 08/17/2018 10:39 PM HEALTHCARE ADMINISTRATOR COVID-19 Exposure Response Date Recorded In the last month, have you been in contact with No / Unsure 06/03/2020 2:50 PM HEALTHCARE ADMINISTRATOR someone who was confirmed or suspected to have Coronavirus / COVID-19? documented as of this encounter Plan of Treatment Upcoming Encounters Date Type Specialty Care Team Description 05/19/2022 Office Visit ENT Dima Hidalgo M D [address] [address] (Wo rk) 08/02/2022 Office Visit Neurology Yair Campos MD 420 [facility] [place] [address] (Wo rk) documented as of this encounter Visit Diagnoses Not on filedocumented in this encounter Additional Health Concerns Assessment Noted Time PHQ-9 Depression Total Score: 8 01/07/2019 2:02 PM CDT documented as of this encounter Care Teams Dairy Store Manager Relationship Specialty Start Date End Date Krystin Christie PCP - General Nurse Practitioner 09/18/19 SAURABH Engel CONTINUOUS IMPROVEMENT ANALYST [address] [facility] [address] [place] [phone] Krystin Christie Assigned PCP 08/26/18 01/28/21 SAURABH Engel CONTINUOUS IMPROVEMENT ANALYST [address] [facility] [address] [place] [phone] Deyanira Stewart, Pharmacist Pharmacist 01/13/20 08/24/20 [facility] [address] [place] [phone] Joan Monroe, Assigned OBGYN Provider 05/08/2001/16/21 Thalia Engel MD 6554 [facility] 100 [place], [place] [address] Anat Fuller Assigned Gastroenterology 05/08/20 12/12/20 MD Renee Provider [address] [facility] [address] [place], [place] [phone] Eric Abdi Assigned Musculoskeletal 05/08/20 03/27/21 MD Joo Provider TRIA [address] [place] [phone] Cecilia Aleman Assigned Surgical Provider 05/08/20 03/06/[address] [facility] [address] [place] [address] documented as of this encounter
--- OUTSIDE RECORDS SUMMARY | 2022-05-09 10:58 | XMS_ITS | Encounter Summary ---
:1955 Author Organization [place] Address [address] [facility] [place] [address] Care Team Providers Name Role Phone Krystin Christie APRN FINAL TOUCH UP PAINTER Unavailable [phone] Krystin Christie APRN FINAL TOUCH UP PAINTER Primary Care Provider [phone] Deyanira [address] [facility] Unavailable Thalia Glass MD Unavailable Anat Fuller MD Unavailable [phone] Eric Abdi MD Unavailable [phone] Cecilia Aleman MD Unavailable [phone] Reason for Visit Reason Comments Medication Refill Encounter Details Date Type Department Care Team Description 07/16/[address] [facility] Krystin Christie, Medication Refill Lola WILEY FINAL TOUCH UP PAINTER [address] [place] [address] [place] [address] [phone] Social History Tobacco Use Types Packs/Day Years Used Date Smoking Tobacco: Never Smokeless Tobacco: Never Alcohol Use Standard Drinks/Week Comments No 0 (1 standard drink = 0.6 oz pure alcoho l) Sex Assigned at Date Recorded Female 08/17/2018 10:39 PM OUTSIDE MACHINIST APPRENTICE COVID-19 Exposure Response Date Recorded In the last month, have you been in contact with No / Unsure 07/08/2020 8:25 AM OUTSIDE MACHINIST APPRENTICE someone who was confirmed or suspected to have Coronavirus / COVID-19? documented as of this encounter Miscellaneous Notes Telephone Encounter - Zoie Lopez RN - 07/20/2020 10:25 AM OUTSIDE MACHINIST APPRENTICE Routing refill request to provider for review/approval because: Drug not active on patient's medication list IDE MACHINIST APPRENTICE documented in this encounter Plan of Treatment Upcoming Encounters Date Type Specialty Care Team Description 05/19/2022 Office Visit ENT Dima Hidalgo M D [address] [facility] [place], [place] [address] (Wo rk) 08/02/2022 Office Visit Neurology Yair Campos MD 420 [place], [place] [address] (Sarah pino) documented as of this encounter Visit Diagnoses Diagnosis Type 2 diabetes mellitus without complic ation, without long-term current use of insulin (H) documented in this encounter Additional Health Concerns Assessment Noted Time PHQ-9 Depression Total Score: 8 01/07/2019 2:02 PM CDT documented as of this encounter Care Teams Enhanced Environmental Operator Relationship Specialty Start Date End Date Krystin Christie PCP - General Nurse Practitioner 09/18/19 SAURABH Engel FINAL TOUCH UP PAINTER [address] [facility] [place] [phone] Krystin Christie Assigned PCP 08/26/18 01/28/21 SAURABH Engel FINAL TOUCH UP PAINTER [address] [facility] [place] [address] Deyanira Stewart, Pharmacist Pharmacist 01/13/20 08/24/[address] [facility] [address] [place] [address] Joan Monroe, Assigned OBGYN Provider 05/08/2001/16/21 Thalia Engel MD [address] [place], [place] [address] Anat Fuller Assigned Gastroenterology 05/08/20 12/12/20 MD Renee Provider 6 [facility] [address] [place], [place] [phone] Eric Abdi Assigned Musculoskeletal 05/08/20 03/27/21 MD Joo Provider TRIA [address] [place] [address] Cecilia Aleman Assigned Surgical Provider 05/08/20 03/06/21 MD Lyly 420 [facility] [address] [place], [place] [phone] documented as of this encounter
--- OUTSIDE RECORDS SUMMARY | 2022-05-09 10:58 | XMS_ITS | Encounter Summary ---
:1955 Author Organization [place] Address [address] [place] [address] Care Team Providers Name Role Phone Krystin Christie APRN POINTER HELPER Unavailable [phone] Krystin Christie APRN POINTER HELPER Primary Care Provider [phone] Deyanira Stewart [facility] Unavailable Nadira Nichols RN Unavailable Unavailable Frank Argueta Unavailable Unavailable Reason for Visit Reason Onset Date Comments Refill Request 01/14/2020 Encounter Details Date Type Department Care Team Description 01/14/2020 MyC Refill [facility] Krystin Christie ill Request Lola Engel APRN POINTER HELPER [address] [facility] [place] [address] [facility] [address] [place] [address] [place] [id number] [phone] Social History Tobacco Use Types Packs/Day Years Used Date Smoking Tobacco: Never Smokeless Tobacco: Never Alcohol Use Standard Drinks/Week Comments No 0 (1 standard drink = 0.6 oz pure alcoho l) Sex Assigned at Date Recorded Female 08/17/2018 10:39 PM SOCIAL SERVICES MANAGER documented as of this encounter Miscellaneous Notes Telephone Encounter - Eduin Wilhelm CNA - 01/21/2020 10:25 AM CDT ACT Total Scores 08/16/2018 01/07/2019 01/21/2020 ACT TOTAL SCORE (Goal Greater than or Equal to 20) 22 23 19 In the past 12 months, how many times did you visit the emergency room for your asthma without beingadmitted to the hospital? 3 1 0 In the past 12 months, how many times were you hospitalized overnight because of your asthma? 0 1 0 ACT 19 Eduin Wilhelm EMT at 10:26 AM on January 21, 2020 [facility] [phone] Telephone Encounter - Mona Ochoa MA - 01/21/2020 8:43 AM CDT Still no ACT questionnaire as of 01/21/2020 Mona Ochoa MA Telephone Encounter - Eduin Wilhelm CNA - 01/14/2020 11:19 AM CDT Pt sent [employer] message to complete ACT. Pt aware and will send back at earliest convenience. Pt scheduled for 30 minute phone visit on 01/21/2020 with PCP. Diabetic labs pended. KEAGAN Meza at 11:19 AM on January 14, 2020 [facility] [phone] Telephone Encounter - Krystin Christie APRN CNP - 01/14/2020 9:04 AM CDT Signed x 1 Please perform ACT Due for long virtual visit for diabetes. Please olman up diabetic labs and fit for me to sign, and schedule her a visit Telephone Encounter - Brandy Kaminski RN - 01/14/2020 8:53 AM CDT Routing refill request to provider for review/approval because: Labs not current: ACT Brandy Kaminski RN, BSN documented in this encounter Plan of Treatment Upcoming Encounters Date Type Specialty Care Team Description 05/19/2022 Office Visit E[facility]idal[facility] M D [facility] [facility] [place], [place] [address] (Wo rk) 08/02/2022 Office Visit Neurology Yair Campos MD [address] [place] [address] (Wo rk) documented as of this encounter Visit Diagnoses Diagnosis Mild persistent asthma with acute exacer bation Unspecified asthma, with exacerbation Type 2 diabetes mellitus without retinop athy (H) Type II or unspecified type diabetes almita litus without mention of complication, not stated as uncontrolled Encounter for screening for malignant ne oplasm of colon Special screening for malignant neoplasm s, colon documented in this encounter Additional Health Concerns Assessment Noted Time PHQ-9 Depression Total Score: 8 01/07/2019 2:02 PM CDT documented as of this encounter Care Teams Purification Supervisor Relationship Specialty Start Date End Date Krystin Christie PCP - General Nurse Practitioner 09/18/19 SAURABH Engel POINTER HELPER [address] [facility] [place] [address] Krystin Christie Assigned PCP 08/26/18 01/28/21 SAURABH Engel POINTER HELPER [address] [facility] [place] [address] Deyanira Stewart RPH Pharmacist Pharmacist 01/13/20 08/24/[address] [place], [place] [id number] Nadira Nichols, RN Lead Coat Joiner [employer]ch Primary Care - CC 01/21/20 03/02/20 Frank Argueta Community Health Worker 01/21/2002/14 documented as of this encounter
--- OUTSIDE RECORDS SUMMARY | 2022-05-09 10:58 | XMS_ITS | Encounter Summary ---
:1955 Author Organization [place] Address [facility] [place] [address] Care Team Providers Name Role Phone Krystin Christie APRN CAMPUS INTERVIEWS INTERN Unavailable [phone] Krystin Christie APRN CAMPUS INTERVIEWS INTERN Primary Care Provider [phone] Deyanira Stewart [facility] Unavailable Thalia Glass MD Unavailable Anat Fuller MD Unavailable [phone] Eric Abdi MD Unavailable [phone] Cecilia Aleman MD Unavailable [phone] Reason for Visit Reason Onset Date Comments Refill Request 07/08/2020 Encounter Details Date Type Department Care Team Description 07/08/2020 MyC Refill [facility] Krystin Christie Ref ill Request Lola Engel APRN CAMPUS INTERVIEWS INTERN [address] [facility] [address] [facility] [address] [place] [address] [place] [address] [phone] Social History Tobacco Use Types Packs/Day Years Used Date Smoking Tobacco: Never Smokeless Tobacco: Never Alcohol Use Standard Drinks/Week Comments No 0 (1 standard drink = 0.6 oz pure alcoho l) Sex Assigned at Date Recorded Female 08/17/2018 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 documented as of this encounter Plan of Treatment Upcoming Encounters Date Type Specialty Care Team Description 05/19/2022 Office Visit E[facility]idalgo M D [address] [facility] Saroj [place], [place] [address] (Wo rk) 08/02/2022 Office Visit Neurology Yair Campos MD [address] [facility] [place] [address] (Wo rk) documented as of this encounter Visit Diagnoses Diagnosis Type 2 diabetes mellitus with complicati on, without long-term current use of insulin (H) Subclinical hypothyroidism Other specified acquired hypothyroidism documented in this encounter Additional Health Concerns Assessment Noted Time PHQ-9 Depression Total Score: 8 01/07/2019 2:02 PM CDT documented as of this encounter Care Teams Lead Javascript Engineer Relationship Specialty Start Date End Date Krystin Christie PCP - General Nurse Practitioner 09/18/19 SAURABH Engel CAMPUS INTERVIEWS INTERN [address] [facility] [place] [address] Krystin Christie Assigned PCP 08/26/18 01/28/21 SAURABH Engel CAMPUS INTERVIEWS INTERN [address] [facility] [place] [address] Deyanira Stewart, Pharmacist Pharmacist 01/13/20 08/24/20 [facility] [address] [place] [id number] Joan Monroe, Assigned OBGYN Provider 05/08/2001/16/21 Thalia Engel MD [address] [facility] [place], [place] [id number] Anat Fuller Assigned Gastroenterology 05/08/20 12/12/20 MD Renee Provider [address] [facility] [address] [place] [address] Eric Abdi Assigned Musculoskeletal 05/08/20 03/27/21 MD Joo Provider [place] [address] [place] [id number] Cecilia Aleman Assigned Surgical Provider 05/08/20 03/06/21 MD Lyly [address] [facility] [address] [place], [place] [id number] documented as of this encounter
--- OUTSIDE RECORDS SUMMARY | 2022-05-09 10:58 | XMS_ITS | Encounter Summary ---
:1955 Author Organization [place] Address [facility] [place] [address] Care Team Providers Name Role Phone Krystin Christie APRN MIXING AND DISPENSING SUPERVISOR Unavailable [phone] Krystin Christie APRN MIXING AND DISPENSING SUPERVISOR Primary Care Provider [phone] Deyanira Stewart [facility] Unavailable Thalia Glass MD Unavailable [phone] Anat Fuller MD Unavailable [phone] Eric Abdi MD Unavailable [phone] Cecilia Aleman MD Unavailable [phone] Reason for Visit [facility] Physical Therapy (Routine) - Closed Specialty Diagnoses / Procedures Referred By Contact Refer red To Contact Diagnoses Rotator cuff syndrome of left shoulder Eric Abdi M [facility] Sports MD & Physical Therapy - [facility] [address] [address] [place] [address] [place] [address] Fax: Referral ID Status Reason Start Date Expiration Date Visits Requ ested Visits Authorized [id number] Closed 09/25/2019 07/16/2020 40 38 Encounter Details Date Type Department Care Team Description 06/03/2020 Therapy Visit [facility] Luis Enrique Abdi MD [facility] [address] [place] [address] Rotator cuff syndrome of left shoulder; [place] [address] [place] [address] Adhesive capsulitis of left shoulder [address] [address] Social History Tobacco Use Types Packs/Day Years Used Date Smoking Tobacco: Never Smokeless Tobacco: Never Alcohol Use Standard Drinks/Week Comments No 0 (1 standard drink = 0.6 oz pure alcoho l) Sex Assigned at Date Recorded Female 08/17/2018 10:39 PM CHIEF VENDOR QUALITY COVID-19 Exposure Response Date Recorded In the last month, have you been in contact with No / Unsure 06/03/2020 2:50 PM CHIEF VENDOR QUALITY someone who was confirmed or suspected to have Coronavirus / COVID-19? documented as of this encounter Progress Notes Osito Howell, PT - 06/03/2020 3:00 PM [facility] Initial Evaluation Subjective: Onset of left shoulder pain 2 years ago of unknown etiology. Pt has had constant pain since. Pt referred by for physical therapy on 09-25-2019 The history is provided by the patient. No livestock speculator was used. Therapist Generated HPI Evaluation Type of problem: Left shoulder. This is a chronic condition. Condition occurred with: Unknown cause. Where condition occurred: for unknown reasons. Patient reports pain: Anterior and posterior. Pain is described as aching and sharp (ripping) and is constant. Radiates to: left scapular. Pain is the same all the time. Since onset symptoms are gradually worsening. Associated symptoms: Loss of motion/stiffness and loss of strength. Symptoms are exacerbated by using arm at shoulder level, using arm behind back, carrying, lifting and using arm overhead (dressing, hair care) and relieved by heat, ice and rest. Imaging testing: none. Previous treatment includes chiropractic (massage therapy). Work activity restrictions: retired. Barriers include: None as reported by patient. Patient Health History Pertinent medical history includes: asthma, concussions/dizziness, depression, diabetes, fibromyalgia, numbness/tingling, overweight, sleep disorder/apnea and thyroid problems. Red flags: Chest pain and pain at rest/night. Objective: Standing Alignment: Shoulder/upper extremity deviations alignment: forward shoulder posture. Shoulder Evaluation: ROM: AROM: Flexion: Left: 48 Extension: Left: 20 Abduction: Left: 30 External Rotation: Left: 30 PROM: Flexion: Left: 65 Extension: Left: 32 Abduction: Left: 35 Internal Rotation: Left: 60 External Rotation: Left: 35 Strength: Flexion: Left:4/5 Weak/painful Pain: Extension: Left: 4+/5 Pain: Abduction: Left: 4-/5 Weak/painful Pain: Adduction: Left: 5/5 Pain: Internal Rotation: Left:4/5 Pain: External Rotation: Left:4-/5 Weak/painful Pain: Special Tests: Left shoulder positive for the following special tests: Impingement Mobility Tests: Glenohumeral posterior left: Hypomobile Glenohumeral inferior left: Hypomobile General ROS Assessment/Plan: Patient is a 65 year old female with left side shoulder complaints. Patient has the following significant findings with corresponding treatment plan. Diagnosis 1: Left shoulder pain/ adhesive capsulitis/ left rotator cuff syndrome Pain - hot/cold therapy, manual therapy, self management, education and home program Decreased ROM/flexibility - manual therapy, therapeutic exercise, therapeutic activity and home program Decreased strength - therapeutic exercise, therapeutic activities and home program Therapy Evaluation Codes: 1) History comprised of: Personal factors that impact the plan of care: None. Comorbidity factors that impact the plan of care are: Asthma, Bowel/bladder changes, Diabetes, Fibromyalgia, Numbness/tingling, Overweight, Stroke, Weakness and thyroid. Medications impacting care: see chart. 2) Examination of Body Systems comprised of: Body structures and functions that impact the plan of care: Shoulder. Activity limitations that impact the plan of care are: Bathing, Dressing, Lifting and reaching. 3) Clinical presentation characteristics are: Stable/Uncomplicated. 4) Decision-Making Low complexity using standardized patient assessment instrument and/or measureable assessment of functional outcome. Cumulative Therapy Evaluation is: Low complexity. Previous and current functional limitations: (See Goal Flow Sheet for this information) Short term and truck terminal manager goals: (See Goal Flow Sheet for this information) Communication ability: Patient appears to be able to clearly communicate and understand verbal and written communication and follow directions correctly. Treatment Explanation - The following has been discussed with the patient: RX ordered/plan of care Anticipated outcomes Possible risks and side effects This patient would benefit from PT intervention to resume normal activities. Rehab potential is good. Frequency: 1 X week, once daily Duration: for 6 weeks Discharge Plan: Achieve all LTG. Independent in home treatment program. Reach maximal therapeutic benefit. Please refer to the daily flowsheet for treatment today, total treatment time and time spent performing 1:1 timed codes. F VENDOR QUALITY documented in this encounter Plan of Treatment Upcoming Encounters Date Type Specialty Care Team Description 05/19/2022 Office Visit ENT Dima [facility]idalgo M D [address] [facility] [place], [place] [address] (Wo odette) 08/02/2022 Office Visit Neurology Yair Campos MD [address] [facility] [place] [address] [place], [place] [address] (Sarah pino) documented as of this encounter Procedures Procedure Name Priority Date/Time Associated Diagnosis Comme nts NE MANUAL THERAPY, EA 15 Routine 06/04/2020 9:10 AM Rotator cu ff syndrome MIN CHIEF VENDOR QUALITY of left shoulder NE THERAPEUTIC Routine 06/04/2020 9:10 AM Rotator cuff syndrom e EXERCISES. EA 15 MIN CHIEF VENDOR QUALITY of left shoulder documented in this encounter Visit Diagnoses Diagnosis Rotator cuff syndrome of left shoulder Disorders of bursae and tendons in shoul barrera region, unspecified Adhesive capsulitis of left shoulder Adhesive capsulitis of shoulder documented in this encounter Additional Health Concerns Assessment Noted Time PHQ-9 Depression Total Score: 8 01/07/2019 2:02 PM CDT documented as of this encounter Care Teams Chief Mechanical Officer Relationship Specialty Start Date End Date Krystin Christie PCP - General Nurse Practitioner 09/18/19 SAURABH Engel MIXING AND DISPENSING SUPERVISOR [address] [facility] [place] [address] Krystin Christie Assigned PCP 08/26/18 01/28/21 SAURABH Engel MIXING AND DISPENSING SUPERVISOR [address] [facility] [place] [address] Deyanira Stewart, Pharmacist Pharmacist 01/13/20 08/24/20 [facility] [address] [place] [address] Joan Monroe, Assigned OBGYN Provider 05/08/2001/16/21 Thalia Engel MD [address] [place] [address] Anat Fuller Assigned Gastroenterology 05/08/20 12/12/20 MD Renee Provider [address] [facility] [address] [place] [address] Eric Abdi Assigned Musculoskeletal 05/08/20 03/27/21 MD Joo Provider [place] [address] [place] [address] Cecilia Aleman Assigned Surgical Provider 05/08/20 03/06/21 MD Lyly [address] [facility] [address] [facility] [address] [place] [address] documented as of this encounter
--- OUTSIDE RECORDS SUMMARY | 2022-05-09 10:58 | XMS_ITS | Encounter Summary ---
:1955 Author Organization [place] Address [address] [facility] [place] [address] Care Team Providers Name Role Phone Krystin Christie APRN FLOOR MANAGER Unavailable [phone] Krystin Christie APRN FLOOR MANAGER Primary Care Provider [phone] Deyanira Stewart [facility] Unavailable Thalia Glass MD Unavailable [phone] Anat Fuller MD Unavailable [phone] Eric Abdi MD Unavailable [phone] Cecilia Aleman MD Unavailable [phone] Reason for Visit Reason Comments Diabetes Encounter Details Date Type Department Care Team Description 07/08/2020 Virtual Visit [facility] Vidhi Paiz (non alcoholic fatty liver) (Primary Dx); Clinic Lola Turner APRN Type 2 diabetes mellitus wit h complication, without long-term current use of insulin (H); [address] FLOOR MANAGER Subclinical hypothyroidism; [address] [facility] KIERRA (generalized anxiety dis order); [address] [facility] Morbid obesity, unspecified obesity type (H) [place] [address] [place] DAVILA [id number] Social History Tobacco Use Types Packs/Day Years Used Date Smoking Tobacco: Never Smokeless Tobacco: Never Alcohol Use Standard Drinks/Week Comments No 0 (1 standard drink = 0.6 oz pure alcoho l) Sex Assigned at Date Recorded Female 08/17/2018 10:39 PM SPECTROGRAPHER COVID-19 Exposure Response Date Recorded In the last month, have you been in contact with No / Unsure 07/08/2020 8:25 AM SPECTROGRAPHER someone who was confirmed or suspected to have Coronavirus / COVID-19? documented as of this encounter Progress Notes Sherine Hollis LPN - 07/08/2020 8:20 AM CST Becki Ridley is a 65 year old female who is being evaluated via a billable telephone visit. The patient has been notified of following: This telephone visit will be conducted via a call between you and your physician/provider. We have found that certain health care needs can be provided without the need for a physical exam. This service lets us provide the care you need with a short phone conversation. If a prescription is necessary we can send it directly to your pharmacy. If lab work is needed we can place an order for that and you can then stop by our lab to have the test done at a later time. Telephone visits are billed at different rates depending on your insurance coverage. During this emergency period, for some insurers they may be billed the same as an in-person visit. Please reach out to your insurance provider with any questions. If during the course of the call the physician/provider feels a telephone visit is not appropriate, you will not be charged for this service. Patient has given verbal consent for Telephone visit? Yes What phone number would you like to be contacted at? [phone] How would you like to obtain your AVS? Shauna Mason Becki Ridley is a 65 year old female who presents via phone visit today for the following health issues: HPI Diabetes Follow-up How often are you checking your blood sugar? One time daily What time of day are you checking your blood sugars (select all that apply)? first thing in the morning Have you had any blood sugars above 200? Yes if she forgets to take her med Have you had any blood sugars below 70? No ?? What symptoms do you notice when your blood sugar is low? Not applicable ?? What concerns do you have today about your diabetes? None ?? Do you have any of these symptoms? (Select all that apply) No numbness or tingling in feet. No redness, sores or blisters on feet. No complaints of excessive thirst. No reports of blurry vision. No significant changes to weight. Hyperlipidemia Follow-Up ?? Are you regularly taking any medication or supplement to lower your cholesterol? No ?? Are you having muscle aches or other side effects that you think could be caused by your cholesterol lowering medication? No Hypertension Follow-up ?? Do you check your blood pressure regularly outside of the clinic? No ?? Are you following a low salt diet? Yes ?? Are your blood pressures ever more than 140 on the top number (systolic) OR more than 90 on the bottom number (diastolic), for example 140/90? No BP Readings from Last 2 Encounters: 05/28/20 (!) 145/89 09/25/19 128/81 Hemoglobin A1C (%) Date Value 05/03/2019 8.4 (H) 01/07/2019 7.7 (H) LDL Cholesterol Calculated (mg/dL) Date Value 08/16/2018 135 (H) ?? How many servings of fruits and vegetables do you eat daily? 2-3 ?? On average, how many sweetened beverages do you drink each day (Examples: soda, juice, sweet tea,etc. Do NOT count diet or artificially sweetened beverages)? 0 ?? How many days per week do you exercise enough to make your heart beat faster? 3 or less ?? How many minutes a day do you exercise enough to make your heart beat faster? 9 or less How many days per week do you miss taking your medication? 1 ?? What makes it hard for you to take your medications? remembering to take Asthma - started on Singulair 01/21/20. ICS too expensive Last ACT from January 2020 At rest symptoms feel better but still refers to is as an issue Doesn't like wearing a mask with Covid. Feels like it causes an asthma attack Follows at [facility]. Was recently given some sample of a daily inhaler. Doesn't remember the name Diabetes - Last A1c from Jul 2019: 7.4%. Did not come in for recheck Fasting glucose usually 150-170 Metformin - taking 1500 mg daily and glipizide 5 mg daily Hypothyroidism - Unsure of last labs Not sure of dose but states it hasn't changed so should be same dose as in chart BP - generally well controlled. No history of HTN. Elevated when seen in ED in May for Shingles Anxiety - on Buspar Sees a therapist Saw psychiatry in the past. Has tried several other medications which she didn't tolerate Review of Systems Constitutional, HEENT, cardiovascular, pulmonary, gi and gu systems are negative, except as otherwise noted. Objective Vitals: No vitals were obtained today due to virtual visit. healthy, alert and no distress PSYCH: Alert and oriented times 3; coherent speech, normal rate and volume, able to articulate logical thoughts, able to abstract reason, no tangential thoughts, no hallucinations or delusions Her affect is normal and pleasant RESP: No cough, no audible wheezing, able to talk in full sentences Remainder of exam unable to be completed due to telephone visits No results found for this or any previous visit (from the past 24 hour(s)). Assessment/Plan: Assessment & Plan Type 2 diabetes mellitus with complication, without long-term current use of insulin (H) - Based on previous A1c os 7.4% and reported readings I suspect it will be elevated. Consider increasing glipizide pending labs. Will need to consider cost. I suspect she may have a high deductible if all ICS inhalers were going to be expensive for her - glipiZIDE (GLUCOTROL XL) 5 MG 24 hr tablet Dispense: 90 tablet; Refill: 0 - Basic metabolic panel FUTURE anytime - Hemoglobin A1c - Albumin Random Urine Quantitative with Creat Ratio - Lipid panel reflex to direct LDL Fasting - metFORMIN (GLUCOPHAGE-XR) 500 MG 24 hr tablet Dispense: 270 tablet; Refill: 0 - Not on statin d/t NSAFLD. Saw GI in 2018. Biopsy showed less fibrosis that indicated on fibrosis scan. ALT baseline 2-3x normal range Subclinical hypothyroidism - TSH with free T4 reflex FUTURE anytime - levothyroxine (SYNTHROID/LEVOTHROID) 50 MCG tablet Dispense: 90 tablet; Refill: 0 KIERRA (generalized anxiety disorder) - Follows with therapist. States well controlled - busPIRone (BUSPAR) 10 MG tablet Dispense: 180 tablet; Refill: 0 Morbid obesity - May benefit from GLP1 if A1c < 7%, dual benefit to help with diabetes, but I worry cost will patterson issue. Could consider referral to MTM Nonalcoholic Fatty Liver - Hepatic panel BMI: Estimated body mass index is 35.67 kg/m?? as calculated from the following: Height as of 09/25/19: 1.575 m (5' 2). Weight as of 09/25/19: 88.5 kg (195 lb). Return in about 3 months (around 10/06/2020) for Physical Exam. Vidhi Paiz APRN CNP [facility] Phone call duration: 14 minutes TROGRAPHER documented in this encounter Plan of Treatment Upcoming Encounters Date Type Specialty Care Team Description 05/19/2022 Office Visit ENT Dima [facility]idalgo M D [address] [facility] [place], [place] [address] (Wo rk) 08/02/2022 Office Visit Neurology Yair Campos MD [address] [place], [place] [address] (Wo rk) documented as of this encounter Visit Diagnoses Diagnosis NAFL (nonalcoholic fatty liver) - Primar y Other chronic nonalcoholic liver disease Type 2 diabetes mellitus with complicati on, without long-term current use of insulin (H) Subclinical hypothyroidism Other specified acquired hypothyroidism KIERRA (generalized anxiety disorder) Generalized anxiety disorder Morbid obesity, unspecified obesity type (H) documented in this encounter Additional Health Concerns Assessment Noted Time PHQ-9 Depression Total Score: 8 01/07/2019 2:02 PM CDT documented as of this encounter Care Teams Ordained Minister Relationship Specialty Start Date End Date Krystin Christie PCP - General Nurse Practitioner 09/18/19 SAURABH Engel FLOOR MANAGER [address] [facility] [place] [address] Krystin Christie Assigned PCP 08/26/18 01/28/21 SAURABH Engel FLOOR MANAGER [address] [facility] [place] [id number] Deyanira Stewart, Pharmacist Pharmacist 01/13/20 08/24/20 [facility] [address] [place] [address] Joan Monroe, Assigned OBGYN Provider 05/08/2001/16/21 Thalia Engel MD [address] [place] [address] Anat Fuller Assigned Gastroenterology 05/08/20 12/12/20 MD Renee Provider [address] [facility] [place], [place] [address] Eric Abdi Assigned Musculoskeletal 05/08/20 03/27/21 [place] J[place] [address] [place] [address] [place] [id number] Cecilia Aleman Assigned Surgical Provider 05/08/20 03/06/21 MD Lyly [address] [facility] [address] [place], [place] [address] documented as of this encounter
--- OUTSIDE RECORDS SUMMARY | 2022-05-09 10:58 | XMS_ITS | Encounter Summary ---
:1955 Author Organization [place] Address [address] [facility] [place] [address] Care Team Providers Name Role Phone Krystin Christie APRN TRANSPORTATION PROJECT MANAGER Unavailable [phone] Krystin Christie APRN TRANSPORTATION PROJECT MANAGER Primary Care Provider [phone] Deyanira Stewart [facility] Unavailable Reason for Visit Reason Onset Date Comments Refill Request 01/13/2020 Encounter Details Date Type Department Care Team Description 01/13/2020 MyC Refill [facility] Krystin Christie Ref ill Request Lola Engel APRN TRANSPORTATION PROJECT MANAGER [address] [facility] [address] [facility] [address] [place] [address] [place] [phone] Social History Tobacco Use Types Packs/Day Years Used Date Smoking Tobacco: Never Smokeless Tobacco: Never Alcohol Use Standard Drinks/Week Comments No 0 (1 standard drink = 0.6 oz pure alcoho l) Sex Assigned at Date Recorded Female 08/17/2018 10:39 PM CENTRIFUGAL CASTING MACHINE OPERATOR documented as of this encounter Miscellaneous Notes Telephone Encounter - Alyssa Cannon - 01/13/2020 2:38 PM CDT I called and spoke to the pt and she is aware of her upcoming appointment on 01/21/20. She is out of the Glipizide and would need that filled. Otherwise she is fine with all of her other medications listed in this encounter. Alyssa Cannon on 01/13/2020 at 2:39 PM Telephone Encounter - Jameson Zuñiga RN - 01/13/2020 1:57 PM CDT Routing refill request to provider for review/approval because: Labs out of range: TSH, A1C Patient needs to be seen because: Patient due for visit Care team please assist patient in scheduling appt. PCP please advise on refill. Jameson De Paz RN, BSN documented in this encounter Plan of Treatment Upcoming Encounters Date Type Specialty Care Team Description 05/19/2022 Office Visit ENT Dima Hidalgo M D [address] [place], [place] [address] (Wo rk) 08/02/2022 Office Visit Neurology Yair Campos MD [address] [place] [id number] (Wo rk) documented as of this encounter Visit Diagnoses Diagnosis Subclinical hypothyroidism Other specified acquired hypothyroidism Type 2 diabetes mellitus with complicati on, without long-term current use of insulin (H) documented in this encounter Additional Health Concerns Assessment Noted Time PHQ-9 Depression Total Score: 8 01/07/2019 2:02 PM CDT documented as of this encounter Care Teams Histotechnologist Relationship Specialty Start Date End Date Krystin Christie APRN TRANSPORTATION PROJECT MANAGER PCP - General Nurse Practitioner 09/18/[address] [place] [address] [place] [address] Krystin Christie APRN TRANSPORTATION PROJECT MANAGER Assigned PCP 08/26/18 01/28/[address] [place] [address] [place] [address] Deyanira Stewart RPH Pharmacist Pharmacist 01/13/20 08/24/[address] [place], [place] [id number] documented as of this encounter
--- OUTSIDE RECORDS SUMMARY | 2022-05-09 10:58 | XMS_ITS | Encounter Summary ---
:1955 Author Organization [place] Address [address] [facility] [place] [address] Care Team Providers Name Role Phone Krystin Christie APRN, CNP Unavailable [phone] Krystin Christie APRN, CNP Primary Care Provider [phone] Reason for Visit Reason Onset Date Comments Panel Management 11/04/2019 diab, asthma, PHQ9, colonoscopy, ldl Encounter Details Date Type Department Care Team Description 11/04/2019 Telephone [facility] Krystin Christie (diab, Clinic Lola Engel APRN CNP asthma, PHQ9, [address] [place] [facility] colon oscopy, ldl) [facility] [address] [place] [address] [place] [address] [phone] Social History Tobacco Use Types Packs/Day Years Used Date Smoking Tobacco: Never Smokeless Tobacco: Never Alcohol Use Standard Drinks/Week Comments No 0 (1 standard drink = 0.6 oz pure alcoho l) Sex Assigned at Date Recorded Female 08/17/2018 10:39 PM 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 Attempt #2. No answer, LVM to call back on my personal extension or if I am unavailable to give the clinic a call back to schedule her appts. Eduin Wilhelm, EMT at 1:17 PM on November 18, 2019 Clinic Health Guide [phone] Telephone Encounter - Lauren Linares MA - 11/18/2019 11:51 AM CDT [facility]- Do you want to see if you can get a hold of the patient? Needs to be scheduled. Cancelled last appt with no new appointment on file. Lauren Linares CMA Telephone Encounter - Irlanda Mercado CMA - 11/15/2019 10:58 AM CDT Called pt and left VM Irlanda Mercado MA 10:59 AM 11/15/2019 Telephone Encounter - Lauren Linares MA - 11/08/2019 8:40 AM CDT Reminder letter mailed to patient. Lauren Linares CMA Telephone Encounter - Lauren Linares MA - 11/04/2019 4:02 PM CDT Panel Management Review Patient has the following on her problem list: Depression / Dysthymia review Measure: Needs PHQ-9 score of 4 or less during index window. Administer PHQ-9 and if score is 5 or more, send encounter to provider for next steps. 5 - 7 month window range: last seen by PCP 05/03/19 - patient no showed 06/17/19 appt and cancelled 09/17/19 co-visit w/ MTM PHQ-9 SCORE 12/07/2011 08/24/2018 01/07/2019 PHQ-9 Total Score - 4 8 PHQ-9 Total Score 24 - - If PHQ-9 recheck is 5 or more, route to provider for next steps. Patient is due for: PHQ9 Asthma review ACT Total Scores 01/07/2019 ACT TOTAL SCORE (Goal Greater than or Equal to 20) 23 In the past 12 months, how many times did you visit the emergency room for your asthma without beingadmitted to the hospital? 1 In the past 12 months, how many times were you hospitalized overnight because of your asthma? 1 1. Is Asthma diagnosis on the Problem List? Yes 2. Is Asthma listed on Health Maintenance? Yes 3. Patient is due for: ACT and AAP Diabetes ASA: Not Required ?? Last A1C Lab Results Component Value Date A1C 8.4 05/03/2019 A1C 7.7 01/07/2019 A1C 7.7 10/15/2018 A1C 11.6 08/16/2018 A1C 9.7 09/28/2016 A1C tested: FAILED Last LDL: Lab Results Component Value Date CHOL 207 08/16/2018 Lab Results Component Value Date HDL 46 08/16/2018 Lab Results Component Value Date LDL 135 08/16/2018 Lab Results Component Value Date TRIG 130 08/16/2018 No results found for: CHOLHDLRATIO Lab Results Component Value Date NHDL 161 08/16/2018 Is the patient on a Statin? NO Is the patient on Aspirin? NO Last three blood pressure readings: BP Readings from Last 3 Encounters: 09/25/19 128/81 09/06/19 127/81 08/16/19 137/83 Date of last diabetes office visit: 05/03/19 Tobacco History: History Smoking Status ??? Never Smoker Smokeless Tobacco ??? Never Used Composite cancer screening Chart review shows that this patient is due/due soon for the following Colonoscopy Summary: Patient is due/failing the following: A1C, AAP, ACT, COLONOSCOPY, FOLLOW UP, LDL and PHQ9 Action needed: Patient needs office visit for diabetes & asthma f/u., Patient needs to do ACT., Patient needs to do PHQ9. and Patient needs fasting lab only appointment Type of outreach: Sent [employer] Mobile message. Questions for provider review: None Lauren Linares CMA Chart routed to Care Team . documented in this encounter Plan of Treatment Upcoming Encounters Date Type Specialty Care Team Description 05/19/2022 Office Visit ENT Dima Hidalgo M D [address] [facility] [address] [place] [address] (Wo rk) 08/02/2022 Office Visit Neurology Yair Campos MD [address] [facility] [place] [address] (Wo rk) documented as of this encounter Visit Diagnoses Not on filedocumented in this encounter Additional Health Concerns Assessment Noted Time PHQ-9 Depression Total Score: 8 01/07/2019 2:02 PM CDT documented as of this encounter Care Teams Staffing Manager Relationship Specialty Start Date End Date Krystin Christie APRN CEMETERY MANAGER PCP - General Nurse Practitioner 09/18/[address] [place] [address] [place] [address] Krystin Christie APRN CEMETERY MANAGER Assigned PCP 08/26/18 01/28/[address] [place] [address] [place] [address] documented as of this encounter
--- OUTSIDE RECORDS SUMMARY | 2022-05-09 10:58 | XMS_ITS | Encounter Summary ---
:1955 Author Organization [employer] [place] Address [facility] [place] [address] Care Team Providers Name Role Phone Krystin Christie APRN, CNP Unavailable [phone] Krystin Christie APRN BROKER Primary Care Provider Deyanira Stewart [facility] Unavailable Thalia Glass MD Unavailable Anat Fuller MD Unavailable [phone] Eric Abdi MD Unavailable [phone] Cecilia Aleman MD Unavailable [phone] Encounter Details Date Type Department Care Team Description 05/29/2020 Telephone [facility] Krystin Christie Eagan APRN BROKER [address] [facility] [address] [facility] [address] [place] [address] [place] [address] [phone] Social History Tobacco Use Types Packs/Day Years Used Date Smoking Tobacco: Never Smokeless Tobacco: Never Alcohol Use Standard Drinks/Week Comments No 0 (1 standard drink = 0.6 oz pure alcoho l) Sex Assigned at Date Recorded Female 08/17/2018 10:39 PM MANAGER MEDICAL DEVICE COVID-19 Exposure Response Date Recorded In the last month, have you been in contact with No / Unsure 05/28/2020 9:13 PM MANAGER MEDICAL DEVICE someone who was confirmed or suspected to have Coronavirus / COVID-19? documented as of this encounter Miscellaneous Notes Telephone Encounter - Alyssa Cannon - 05/29/2020 2:03 PM CST See message to pt. Alyssa Cannon on 05/29/2020 at 2:03 PM GER MEDICAL DEVICE Telephone Encounter - Krystin Christie APRN CNP - 05/29/2020 7:02 AM MANAGER MEDICAL DEVICE Needs physical/diabetes check/ER fu [employer]ER [employer] documented in this encounter Plan of Treatment Upcoming Encounters Date Type Specialty Care Team Description 05/19/2022 Office Visit ENT Dima Hidalgo M D [address] [place], [place] [address] (Wo rk) 08/02/2022 Office Visit Neurology Yair Campos MD [address] [place] [address] (Wo rk) documented as of this encounter Visit Diagnoses Not on filedocumented in this encounter Additional Health Concerns Assessment Noted Time PHQ-9 Depression Total Score: 8 01/07/2019 2:02 PM CDT documented as of this encounter Care Teams Cutting Machine Operator Helper Relationship Specialty Start Date End Date Krystin Christie PCP - General Nurse Practitioner 09/18/19 SAURABH Engel BROKER [address] [facility] [place] [address] Krystin Christie Assigned PCP 08/26/18 01/28/21 SAURABH Engel BROKER [address] [facility] [place] [id number] Deyanira Stewart, Pharmacist Pharmacist 01/13/20 08/24/20 [facility] [address] [place], [place] [id number] Joan Monroe, Assigned OBGYN Provider 05/08/2001/16/21 Thalia Engel MD [address] [place] [address] Anat Fuller Assigned Gastroenterology 05/08/20 12/12/20 MD Renee Provider [address] [address] [address] [place] [address] Eric Abdi Assigned Musculoskeletal 05/08/20 03/27/21 MD Joo Provider [place] [place] [address] Cecilia Aleman Assigned Surgical Provider 05/08/20 03/06/21 MD Lyly [address] [facility] [address] [facility] [address] [place] [address] documented as of this encounter
--- OUTSIDE RECORDS SUMMARY | 2022-05-09 10:58 | XMS_ITS | Encounter Summary ---
:1955 Author Organization [place] Address [address] [facility] [place] [address] Care Team Providers Name Role Phone Krystin Christie APRN, CNP Unavailable [phone] Krystin Christie APRN, CNP Primary Care Provider [phone] Deyanira Stewart [facility] Unavailable Nadira Nichols RN Unavailable Unavailable Frank Argueta Unavailable Unavailable Reason for Referral Care Coordination (Routine) - Closed Specialty Diagnoses / Procedures Referred By Contact Refer red To Contact Diagnoses Pain, dental Krystin Christie APRN CNP [address] [facility] [address] [place] [address] Referral ID Status Reason Start Date Expiration Date Visits Requ ested Visits Authorized [id number] Closed 01/21/2020 01/20/2021 1 1 Reason for Visit Reason Onset Date Comments Asthma 01/21/2020 Diabetes 01/21/2020 Encounter Details Date Type Department Care Team Description 01/21/2020 Virtual Visit [facility] Krystin Christie Type 2 di abetes mellitus without retinopathy (H) (Primary Dx); Clinic Lola Engel APRN Mild persistent asthma with acute exacerbation; [address] JOEL Other fatigue; [address] [facility] YESSI (obstructive sleep apnea ); [address] [facility] Primary narcolepsy with cataplexy; [place] [address] [place] [address] Pain, dental [phone] Social History Tobacco Use Types Packs/Day Years Used Date Smoking Tobacco: Never Smokeless Tobacco: Never Alcohol Use Standard Drinks/Week Comments No 0 (1 standard drink = 0.6 oz pure alcoho l) Sex Assigned at Date Recorded Female 08/17/2018 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 At your visit today, we discussed your risk for falls and preventive options. Fall??Prevention Falls often occur due to slipping, tripping or losing your balance. Millions of people fall every year and injure themselves.??Here are ways to reduce your risk of falling again. ?? Think about your fall, was there anything that caused your fall that can be fixed, removed, or replaced? ?? Make your home safe by keeping walkways clear of objects you may trip over, such as electric cords. ?? Use non-slip pads under rugs. Don't use area rugs or small throw rugs. ?? Use non-slip mats in bathtubs and showers. ?? Install handrails and lights on staircases. The handrails should be on both sides of the stairs. ?? Don't walk in poorly lit areas. ?? Don't stand on chairs or wobbly ladders. ?? Use caution when reaching overhead or looking upward.??This position can cause a loss of balance. ?? Be sure your shoes fit properly, have non-slip bottoms and are in good condition.? Wear shoes both inside and out. Don't go barefoot or wear slippers. ?? Be cautious when going up and down stairs, curbs, and when walking on uneven sidewalks. ?? If your balance is poor, consider using a cane or walker. ?? If your fall was related to alcohol use, stop or limit alcohol intake.? If your fall was related to use of sleeping medicines, talk to your healthcare provider about this.??You may need to reduce your dosage at bedtime if you awaken during the night to go to the bathroom.? To reduce the need for nighttime bathroom trips: ? Don't drink fluids for several hours before going to bed ? Empty your bladder before going to bed ? Men can keep a urinal at the bedside ?? Stay as active as you can. Balance, flexibility, strength, and endurance all come from exercise. They all play a role in preventing falls. Ask your healthcare provider which types of activity are right for you. ?? Get your vision checked on a regular basis. ?? If you have pets, know where they are before you stand up or walk so you don't trip over them. ?? Use night lights. ?? Go over all your medicines with a pharmacist or other healthcare provider to see if any of them could make you more likely to fall. Date Last Reviewed: 10/15/2017 ?? 5464-9154 [employer]. [address] [place] [address]. All rights reserved. This information is not intended as a substitute for professional medical care. Always follow your healthcare professional's instructions. documented in this encounter Progress Notes Krystin Christie APRN SWIMMING COACH - 01/21/2020 8:00 AM CDT Becki Ridley is a 64 year old female who is being evaluated [...] would you like to be contacted at? [phone] How would you like to obtain your AVS? Shauna Mason Becki Ridley is a 64 year old female who presents via phone visit today for the following health issues: HPI Asthma Follow-Up Was ACT completed today? Yes ACT Total Scores 01/21/2020 ACT TOTAL SCORE (Goal Greater than or Equal to 20) 19 In the past 12 months, how many times did you visit the emergency room for your asthma without beingadmitted to the hospital? 0 In the past 12 months, how many times were you hospitalized overnight because of your asthma? 0 ?? How many days per week do you miss taking your asthma controller medication? I do not have an asthma controller medication ?? Please describe any recent triggers for your asthma: mold, humidity, exercise or sports and heat ?? Have you had any Emergency Room Visits, Urgent Care Visits, or Hospital Admissions since your last office visit? No ?? How many servings of fruits and [...] your heart beat faster? 9 or less ?? How many days per week do you miss taking your medication? 0 Asthma worse in the humidity. Also feels that allergies make it worse. Mold specifically Had been on a controller inhaler in the past, Asthmacort. Insurance doesn't pay well for it. Katie worked in the past Diabetes Follow-up How often are you checking your blood sugar? Two times daily Blood sugar testing frequency justification: Frequent hypoglycemia and hyperglycemia What time of day are you checking your blood sugars (select all that apply)? Mornings and afternoon/evening Have you had any blood sugars above 200? Yes Have you had any blood sugars below 70? Yes ?? What symptoms do you notice when your blood sugar is low? Shaky, Dizzy, Weakness and Hungry ?? What concerns do you have today about your diabetes? None ?? Do you have any of these symptoms? (Select all that apply) No numbness or tingling in feet. No redness, sores or blisters on feet. No complaints of excessive thirst. No reports of blurry vision. No significant changes to weight. BP Readings from Last 2 Encounters: 09/25/19 128/81 09/06/19 127/81 Hemoglobin A1C (%) Date Value 05/03/2019 8.4 (H) 01/07/2019 7.7 (H) LDL Cholesterol Calculated (mg/dL) Date Value 08/16/2018 135 (H) States she has narcolepsy. Used to take provigil. Also has sleep apnea. Pt notes she does not want to do PHQ-9 because she sees psychiatrist - sees them about once a month. Pt fell last year notes it was ice related - fell on back and head. Denies LOC. Pt notes painful abscess on top of her gums with associated facial swelling that she thinks she needs an antibiotic. Pt notes she has been gargling with salt water with some relief. Patient Active Problem List Diagnosis ??? Subclinical [...] ??? YESSI (obstructive sleep apnea) ??? Narcolepsy Past Surgical History: Procedure Laterality Date ??? COLONOSCOPY age 52 [place] results ??? EYE SURGERY ??? IR LIVER BIOPSY PERCUTANEOUS 07/04/2019 ??? PERCUTANEOUS BIOPSY LIVER Right 07/04/2019 Procedure: Percutaneous Liver Biopsy; Surgeon: Wali Hare PA-C; Location: OR Social History Tobacco Use ??? Smoking status: Never Smoker ??? Smokeless tobacco: Never Used Substance Use Topics ??? Alcohol use: No Alcohol/week: 0.0 standard drinks Family History Problem Relation Age of Onset [...] ??? Macular Degeneration No family hx of Reviewed and updated as needed this visit by Provider Review of Systems Constitutional, HEENT, cardiovascular, pulmonary, gi and gu systems are negative, except as otherwise noted. Assessment/Plan: 1. Type 2 diabetes mellitus without retinopathy (H) In July at [facility] was 7.4. Hasn't been seen by me for this in quite some time. -Recheck diabetic labs today -Discuss ASA/statin at diabetic f/u visit next week 2. Mild persistent asthma with acute exacerbation Not controlled. Summer allergies/humidity contribute -Start singulair. States ICS is too expensive. - montelukast (SINGULAIR) 10 MG tablet; Take 1 tablet (10 mg) by mouth At Bedtime Dispense: 90 tablet; Refill: 3 -Will f/u at this at our upcoming visit. 3. Other fatigue Ongoing. Used to take provigil for narcolepsy. Also has YESSI and is inconsistent about her machine -Wear CPAP regularly -ANTWAN requested from sleep doc to see if she truly has narcolepsy -Asked her to call them to get an appt to discuss provigil as this is not something I usuall prescribe. 4. YESSI (obstructive sleep apnea) 5. Primary narcolepsy with cataplexy 6. Pain, dental Feels she has an abscess top left near a tooth that had a crown. No severe pain, jaw pain, fever. Does not have a dentist -Start abx -Appreciate CC assisting with getting urgent dental re. May need to try [facility] - CARE COORDINATION REFERRAL - amoxicillin-clavulanate (AUGMENTIN) 875-125 MG tablet; Take 1 tablet by mouth 2 times daily for 10days Dispense: 20 tablet; Refill: 0 Phone call duration: 31 minutes Krystin Christie APRN CNP documented in this encounter Plan of Treatment Upcoming Encounters Date Type Specialty Care Team Description 05/19/2022 Office Visit ENT Dima Hidalgo M D [address] [facility] Saroj [place], [place] [address] (Wo rk) 08/02/2022 Office Visit Neurology Yair Campos MD [address] [place] [address] (Wo rk) documented as of this encounter Visit Diagnoses Diagnosis Type 2 diabetes mellitus without retinop athy (H) - Primary Type II or unspecified type diabetes almita litus without mention of complication, not stated as uncontrolled Mild persistent asthma with acute exacer bation Unspecified asthma, with exacerbation Other fatigue YESSI (obstructive sleep apnea) Obstructive sleep apnea (adult) (pediatr ic) Primary narcolepsy with cataplexy Pain, dental Unspecified disorder of the teeth and singh pporting structures documented in this encounter Additional Health Concerns Assessment Noted Time PHQ-9 Depression Total Score: 8 01/07/2019 2:02 PM CDT documented as of this encounter Care Teams Brush Clearing Laborer Relationship Specialty Start Date End Date Krystin Christie PCP - General Nurse Practitioner 09/18/19 SAURABH Engel CNP [address] [facility] [place] [address] Krystin Christie Assigned PCP 08/26/18 01/28/21 SAURABH Engel CNP [address] [facility] [place] [address] Deyanira Stewart RPH Pharmacist Pharmacist 01/13/20 08/24/[address] [place], [place] [phone] Nadira Nichols, RN Lead Marketing Rep Primary Care - CC 01/21/20 03/02/20 Frank Argueta Community Health Worker 01/21/2002/14 documented as of this encounter
--- OUTSIDE RECORDS SUMMARY | 2022-05-09 10:58 | XMS_ITS | Encounter Summary ---
:1955 Author Organization [place] Address [address] [place] [address] Care Team Providers Name Role Phone Krystin Christie APRN, CNP Unavailable [phone] Krystin Christie APRN BARROW WORKER Primary Care Provider [phone] Deyanira Stewart [facility] Unavailable Nadira Nichols RN Unavailable Unavailable Frank Argueta Unavailable Unavailable Reason for Visit Reason Onset Date Comments Panel Management 02/24/2020 diab, dep Encounter Details Date Type Department Care Team Description 02/24/2020 Telephone [facility] Krystin Christie (diab, Clinic [place] Engel APRN CNP dep) [address] [place] [address] [facility] [address] [place] [address] [place] [address] [phone] Social History Tobacco Use Types Packs/Day Years Used Date Smoking Tobacco: Never Smokeless Tobacco: Never Alcohol Use Standard Drinks/Week Comments No 0 (1 standard drink = 0.6 oz pure alcoho l) Sex Assigned at Date Recorded Female 08/17/2018 10:39 PM TIMBER 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 Patient needs diabetes f/u w/ pre-visit labs, colonoscopy, Dexa. Lauren Linares CMA Telephone Encounter - Lauren Linares MA - 02/28/2020 8:35 AM CDT Reminder letter mailed to patient. Lauren Linares CMA Telephone Encounter - Lauren Linares MA - 02/24/2020 2:40 PM CDT Patient Quality Outreach Summary: Patient is due/failing the following: A1C, LDL (Fasting) and Microalbumin, FIT and Colonoscopy and Immunizations, DEXA Type of outreach: Phone, left message for patient/parent to call back. Questions for provider review: None Start Working phrase here: Patient has the following on her problem list/HM: Depression / Dysthymia review 6 Month Remission: 4-8 month window range: needs PHQ9 12 Month Remission: 10-14 month window range: PHQ-9 SCORE 12/07/2011 08/24/2018 01/07/2019 PHQ-9 Total Score - 4 8 PHQ-9 Total Score 24 - - If PHQ-9 recheck is 5 or more, route to provider for next steps. Asthma review ACT Total Scores 01/21/2020 ACT TOTAL SCORE (Goal Greater than or Equal to 20) 19 In the past 12 months, how many times did you visit the emergency room for your asthma without beingadmitted to the hospital? 0 In the past 12 months, how many times were you hospitalized overnight because of your asthma? 0 Diabetes Last A1C: Lab Results Component Value Date A1C 8.4 05/03/2019 A1C 7.7 01/07/2019 Last LDL: Lab Results Component Value Date LDL 135 08/16/2018 Is the patient on a Statin? No Is the patient on Aspirin? No Last three blood pressure readings: BP Readings from Last 3 Encounters: 09/25/19 128/81 09/06/19 127/81 08/16/19 137/83 Tobacco Use Smoking status: Never Smoker Smokeless tobacco: Never Used Lauren Linares CMA Chart routed to Care Team. documented in this encounter Plan of Treatment Upcoming Encounters Date Type Specialty Care Team Description 05/19/2022 Office Visit ENT Dima Hidalgo M D [address] [facility] [place] [address] (Wo rk) 08/02/2022 Office Visit Neurology Yair Campos MD [address] [place], [place] [address] (Wo rk) documented as of this encounter Visit Diagnoses Not on filedocumented in this encounter Additional Health Concerns Assessment Noted Time PHQ-9 Depression Total Score: 8 01/07/2019 2:02 PM CDT documented as of this encounter Care Teams Psychology Lecturer Relationship Specialty Start Date End Date Krystin Christie PCP - General Nurse Practitioner 09/18/19 SAURABH Engel BARROW WORKER [address] [facility] [place] [address] Krystin Christie Assigned PCP 08/26/18 01/28/21 SAURABH Engel BARROW WORKER [address] [facility] [place] [address] Deyanira Stewart RPH Pharmacist Pharmacist 01/13/20 08/24/[address] [place], [place] [phone] Nadira Nichols, RN Lead Inseam Trimming Machine Operator Primary Care - CC 01/21/20 03/02/20 Frank Argueta Community Health Worker 01/21/2002/14 documented as of this encounter
--- OUTSIDE RECORDS SUMMARY | 2022-05-09 10:58 | XMS_ITS | Encounter Summary ---
:1955 Author Organization [place] Address [address] [facility] [place] [address] Care Team Providers Name Role Phone Krystin Christie APRN SERVICE CENTER APPRAISER Unavailable [phone] Krystin Christie APRN SERVICE CENTER APPRAISER Primary Care Provider [phone] Deyanira Stewart [facility] Unavailable Reason for Visit Reason Onset Date Comments Refill Request 01/13/2020 Encounter Details Date Type Department Care Team Description 01/13/2020 MyC Refill [facility] Endocrinolo Tali Vilchis MD Refill Request [address] [phone] (Wo rk) [address] [phone] Social History Tobacco Use Types Packs/Day Years Used Date Smoking Tobacco: Never Smokeless Tobacco: Never Alcohol Use Standard Drinks/Week Comments No 0 (1 standard drink = 0.6 oz pure alcoho l) Sex Assigned at Date Recorded Female 08/17/2018 10:39 PM CONTRACT LAW SPECIALIST documented as of this encounter Plan of Treatment Upcoming Encounters Date Type Specialty Care Team Description 05/19/2022 Office Visit ENT Dima Hidalgo M D [address] [place], [place] [address] (Wo rk) 08/02/2022 Office Visit Neurology Yair Campos MD [address] [place] [address] (Wo rk) documented as of this encounter Visit Diagnoses Diagnosis Type 2 diabetes mellitus without complic ation, without long-term current use of insulin (H) Alopecia Alopecia, unspecified History of corticosteroid therapy Personal history of systemic steroid the rapy Morbid obesity, unspecified obesity type (H) documented in this encounter Additional Health Concerns Assessment Noted Time PHQ-9 Depression Total Score: 8 01/07/2019 2:02 PM CDT documented as of this encounter Care Teams Emergency Services Dispatcher Relationship Specialty Start Date End Date Krystin Christie APRN SERVICE CENTER APPRAISER PCP - General Nurse Practitioner 09/18/19 [address] [facility] [place] [id number] Krystin Christie APRN SERVICE CENTER APPRAISER Assigned PCP 08/26/18 01/28/[address] [place] [address] [place] [address] Deyanira Stewart RPH Pharmacist Pharmacist 01/13/20 08/24/[address] [place] [address] documented as of this encounter
--- OUTSIDE RECORDS SUMMARY | 2022-05-09 10:58 | XMS_ITS | Encounter Summary ---
:1955 Author Organization [place] Address [address] [facility] [place] [address] Care Team Providers Name Role Phone Krystin Christie APRN ACCOUNT PROCESSOR Unavailable [phone] Krystin Christie APRN ACCOUNT PROCESSOR Primary Care Provider [phone] Deyanira Stewart [facility] Unavailable Thalia Glass MD Unavailable [phone] Anat Fuller MD Unavailable Eric Abdi MD Unavailable [phone] Cecilia Aleman MD Unavailable [phone] Sonja Tinajero [facility] Unavailable [phone] Reason for Visit Reason Onset Date Comments Appointment 07/08/2020 Physical and Lab Jose De Jesus ointment Encounter Details Date Type Department Care Team Description 07/08/2020 Telephone [facility] Krystin Christie (Physical Clinic [place] Engel APRN ACCOUNT PROCESSOR and Lab Appointment ) [address] [facility] [address] [place] [address] [place] [address] [phone] Social History Tobacco Use Types Packs/Day Years Used Date Smoking Tobacco: Never Smokeless Tobacco: Never Alcohol Use Standard Drinks/Week Comments No 0 (1 standard drink = 0.6 oz pure alcoho l) Sex Assigned at Date Recorded Female 08/17/2018 10:39 PM PUMP SERVICE SUPERVISOR COVID-19 Exposure Response Date Recorded In the last month, have you been in contact with No / Unsure 07/08/2020 8:25 AM PUMP SERVICE SUPERVISOR someone who was confirmed or suspected to have Coronavirus / COVID-19? documented as of this encounter Miscellaneous Notes Telephone Encounter - Linda Esquivel - 08/18/2020 10:28 AM CST Called and left message requesting a call back. Please refer to message below and assist patient as needed. Linda Esquivel MA SERVICE SUPERVISOR Telephone Encounter - Alyssa Cannon - 07/21/2020 9:15 AM CST See message to pt. Alyssa Cannon on 07/21/2020 at 9:15 AM SERVICE SUPERVISOR Telephone Encounter - Linda Esquivel - 07/08/2020 8:56 AM CST Per Virtual Visit with Vidhi Paiz on 07/08/20. Vidhi advised Schedule lab appointment and then physical with Krystin in 3-6 months. Will need labs for refills so needs labs within 1-2 months. Patient will need to fast per lab orders. Called and left general message with clinic phone number. Linda Esquivel MA SERVICE SUPERVISOR documented in this encounter Plan of Treatment Upcoming Encounters Date Type Specialty Care Team Description 05/19/2022 Office Visit ENT Dima Hidalgo M D [address] [facility] [address] [place], [place] [address] (Sarah pino) 08/02/2022 Office Visit Neurology Yair Campos MD [address] [place] [address] (Sarah pino) documented as of this encounter Visit Diagnoses Not on filedocumented in this encounter Additional Health Concerns Assessment Noted Time PHQ-9 Depression Total Score: 8 01/07/2019 2:02 PM CDT documented as of this encounter Care Teams Electrophysiology Scientist Relationship Specialty Start Date End Date Krystin Christie PCP - General Nurse Practitioner 09/18/19 SAURABH Engel ACCOUNT PROCESSOR [address] [facility] [place] [address] Krystin Christie Assigned PCP 08/26/18 01/28/21 SAURABH Engel ACCOUNT PROCESSOR [address] [facility] [place] [address] Deyanira Setwart Pharmacist Pharmacist 01/13/20 08/24/20 [facility] [address] [place], [place] [phone] Joan Monroe, Assigned OBGYN Provider 05/08/2001/16/21 Thalia Engel MD [address] [id number] Anat Fuller Assigned Gastroenterology 05/08/20 12/12/20 MD Renee Provider [address] [facility] [place], [place] [phone] Eric Abdi Assigned Musculoskeletal 05/08/20 03/27/21 MD Joo Provider [place] [address] [place] [id number] Cecilia Aleman Assigned Surgical Provider 05/08/20 03/06/21 MD Lyly [address] [facility] [address] [place], [place] [address] Sonja Tinajero Pharmacist 08/24/20 Dev, [facility] [address] [facility] [place] [address] documented as of this encounter
--- OUTSIDE RECORDS SUMMARY | 2022-05-09 10:58 | XMS_ITS | Encounter Summary ---
:1955 Author Organization [place] Address [address] [place] [address] Care Team Providers Name Role Phone Krystin Christie APRN, CNP Unavailable [phone] Krystin Christie APRN, CNP Primary Care Provider [phone] Thalia Glass MD Unavailable [phone] Anat Fuller MD Unavailable [phone] Eric Abdi MD Unavailable [phone] Cecilia Aleman MD Unavailable [phone] Sonja Tinajero [facility] Unavailable [phone] Reason for Visit Reason Onset Date Comments Panel Management 09/21/2020 diab, depress, asthm a, AWV, DEXA, colon Encounter Details Date Type Department Care Team Description 09/21/2020 [facility] Krystin Christie (diab, Clinic Lola Engel APRN CNP depress, asthma, AWV, [address] [facility] DEXA, colon) [facility] [address] [place] [address] [place] [address] [phone] Social History Tobacco Use Types Packs/Day Years Used Date Smoking Tobacco: Never Smokeless Tobacco: Never Alcohol Use Standard Drinks/Week Comments No 0 (1 standard drink = 0.6 oz pure alcoho l) Sex Assigned at Date Recorded Female 08/17/2018 10:39 PM LIFE MANAGEMENT TEACHER documented as of this encounter Miscellaneous Notes Telephone Encounter - Lauren Linares MA - 10/05/2020 7:38 AM CDT Patient Quality Outreach 3rd Attempt Summary: Type of outreach: Phone, left message for patient/parent to call back. Max number of attempts reached: Yes. Will try again in 90 days if patient still on fail list. Questions for provider review: None Lauren Linares CMA Chart closed. Telephone Encounter - Lauren Linares MA - 09/29/2020 9:14 AM CDT Patient Quality Outreach 2nd Attempt Summary: Type of outreach: Sent letter.+ PHQ9/KIERRA Next Steps: Reach out within 90 days via Phone. Max number of attempts reached: No. Will try again in 90 days if patient still on fail list. Questions for provider review: None Lauren Linares CMA Chart routed to Care Team. Telephone Encounter - Lauren Linares MA - 09/21/2020 11:15 AM CST Patient Quality Outreach Summary: Patient has the following on her problem list/HM: Depression / Dysthymia review 6 Month Remission: 4-8 month window range: 12 Month Remission: 10-14 month window range: [...] readings: BP Readings from Last 3 Encounters: 05/28/20 (!) 145/89 09/25/19 128/81 09/06/19 127/81 Tobacco Use Smoking status: Never Smoker Smokeless tobacco: Never Used Patient is due/failing the following: A1C, Eye Exam, Microalbumin and Diabetic Follow-Up Visit, ACT needed, Colonoscopy, PHQ-9 Needed and Depression follow-up visit, Annual wellness, date due: 07/18/20 - welcome to medicare and Immunizationsand DEXA Type of outreach: Sent Cue message.+ PHQ9 + ACT Questions for provider review: None Lauren Linares CMA Chart routed to Care Team. documented in this encounter Plan of Treatment Upcoming Encounters Date Type Specialty Care Team Description 05/19/2022 Office Visit ENT Dima Hidalgo M D [address] [place], [place] [address] (Wo rk) 08/02/2022 Office Visit Neurology Yair Campos MD [address] [facility] [place], [place] [address] (Wo rk) documented as of this encounter Visit Diagnoses Not on filedocumented in this encounter Additional Health Concerns Assessment Noted Time PHQ-9 Depression Total Score: 8 01/07/2019 2:02 PM CDT documented as of this encounter Care Teams Driller Operator Relationship Specialty Start Date End Date Krystin Christie PCP - General Nurse Practitioner 09/18/19 SAURABH Engel APPRENTICESHIP REPRESENTATIVE [address] [facility] [place] [address] Krystin Christie Assigned PCP 08/26/18 01/28/21 SAURABH Engel APPRENTICESHIP REPRESENTATIVE [address] [facility] [place] [address] Joan Monroe, Isha OBGYN Provider 05/08/2001/16/21 Thalia Engel MD [address] [place], [place] [address] Anat Fuller Assigned Gastroenterology 05/08/20 12/12/20 MD Renee Provider [address] [facility] [address] [place], [place] [address] Eric Abdi Assigned Musculoskeletal 05/08/20 03/27/21 MD Joo Provider TRIA [address] [place] [address] Cecilia Aleman Assigned Surgical Provider 05/08/20 03/06/21 MD Lyly [address] [facility] SE [address] [place], [place] [address] Sonja Tinajero Ka Pharmacist 08/24/20 Dev [facility] [address] [place] [address] documented as of this encounter
--- OUTSIDE RECORDS SUMMARY | 2022-05-09 10:58 | XMS_ITS | Encounter Summary ---
:1955 Author Organization [place] Address [facility] [place] [address] Care Team Providers Name Role Phone Krystin Christie APRN BINGO WORKER Unavailable [phone] Krystin Christie APRN BINGO WORKER Primary Care Provider [phone] Deyanira Stewart [facility] Unavailable Thalia Glass MD Unavailable [phone] Anat Fuller MD Unavailable [phone] Eric Abdi MD Unavailable [phone] Cecilia Aleman MD Unavailable [phone] Encounter Details Date Type Department Care Team Description 07/08/2020 Travel Social History Tobacco Use Types Packs/Day Years Used Date Smoking Tobacco: Never Smokeless Tobacco: Never Alcohol Use Standard Drinks/Week Comments No 0 (1 standard drink = 0.6 oz pure alcoho l) Sex Assigned at Date Recorded Female 08/17/2018 10:39 PM RECREATION SPECIALIST COVID-19 Exposure Response Date Recorded In the last month, have you been in contact with No / Unsure 07/08/2020 8:25 AM RECREATION SPECIALIST someone who was confirmed or suspected to have Coronavirus / COVID-19? documented as of this encounter Plan of Treatment Upcoming Encounters Date Type Specialty Care Team Description 05/19/2022 Office Visit ENT Dima Hidlago M D [address] [place] [address] (Wo rk) 08/02/2022 Office Visit Neurology Yair Campos MD [address] [facility] [place] [address] (Wo rk) documented as of this encounter Visit Diagnoses Not on filedocumented in this encounter Additional Health Concerns Assessment Noted Time PHQ-9 Depression Total Score: 8 01/07/2019 2:02 PM CDT documented as of this encounter Care Teams Investment Sales Assistant Relationship Specialty Start Date End Date Krystin Christie PCP - General Nurse Practitioner 09/18/19 SAURABH Engel BINGO WORKER [address] [facility] [address] [place] [id number] Krystin Christie Assigned PCP 08/26/18 01/28/21 SAURABH Engel BINGO WORKER [address] [facility] [address] [place] [id number] Deyanira Stewart, Pharmacist Pharmacist 01/13/20 08/24/20 [facility] [address] [place] [phone] Joan Monroe, Assigned OBGYN Provider 05/08/2001/16/21 Thalia Engel MD [address] [facility] 100 [place], [place] [address] Anat Fuller Assigned Gastroenterology 05/08/20 12/12/20 MD Renee Provider [address] [facility] [address] [place], [place] [phone] Eric Abdi Assigned Musculoskeletal 05/08/20 03/27/21 MD Joo Provider TRIA [address] [place] [id number] Cecilia Aleman Assigned Surgical Provider 05/08/20 03/06/21 MD Lyly [address] [facility] [address] [place] [address] documented as of this encounter
--- OUTSIDE RECORDS SUMMARY | 2022-05-09 10:58 | XMS_ITS | Encounter Summary ---
:1955 Author Organization [place] Address [facility] [place] [address] Care Team Providers Name Role Phone Krystin Christie APRN FARM EQUIPMENT ENGINE MECHANIC Unavailable [phone] Krystin Christie APRN FARM EQUIPMENT ENGINE MECHANIC Primary Care Provider [phone] Deyanira Stewart [facility] Unavailable Thalia Glass MD Unavailable [phone] Anat Fuller MD Unavailable [phone] Eric Abdi MD Unavailable [phone] Cecilia Aleman MD Unavailable [phone] Encounter Details Date Type Department Care Team Description 07/20/2020 Travel Social History Tobacco Use Types Packs/Day Years Used Date Smoking Tobacco: Never Smokeless Tobacco: Never Alcohol Use Standard Drinks/Week Comments No 0 (1 standard drink = 0.6 oz pure alcoho l) Sex Assigned at Date Recorded Female 08/17/2018 10:39 PM ADJUNCT FACULTY FOR MEDICAL TERMINOLOGY COVID-19 Exposure Response Date Recorded In the last month, have you been in contact with No / Unsure 07/08/2020 8:25 AM ADJUNCT FACULTY FOR MEDICAL TERMINOLOGY someone who was confirmed or suspected to have Coronavirus / COVID-19? documented as of this encounter Plan of Treatment Upcoming Encounters Date Type Specialty Care Team Description 05/19/2022 Office Visit ENT Dima Hidalgo M D [address] [place] [address] (Wo rk) 08/02/2022 Office Visit Neurology Yair Campos MD [address] [facility] [address] [place], [place] [phone] (Wo rk) documented as of this encounter Visit Diagnoses Not on filedocumented in this encounter Additional Health Concerns Assessment Noted Time PHQ-9 Depression Total Score: 8 01/07/2019 2:02 PM CDT documented as of this encounter Care Teams Cleaner And Preparer Relationship Specialty Start Date End Date Krystin Christie PCP - General Nurse Practitioner 09/18/19 SAURABH Engel FARM EQUIPMENT ENGINE MECHANIC [address] [facility] [address] [place] [phone] Krystin Christie Assigned PCP 08/26/18 01/28/21 SAURABH Engel FARM EQUIPMENT ENGINE MECHANIC [address] [facility] [address] [place] [phone] Deyanira Stewart, Pharmacist Pharmacist 01/13/20 08/24/20 [facility] [address] [place], [place] [phone] Joan Monroe, Assigned OBGYN Provider 05/08/2001/16/21 Thalia Engel MD [address] [facility] 100 [place], [place] [address] Anat Fuller Assigned Gastroenterology 05/08/20 12/12/20 MD Renee Provider 516 [facility] [address] [place], [place] [phone] Eric Abdi Assigned Musculoskeletal 05/08/20 03/27/21 MD Joo Provider TRIA [address] [place] [id number] Cecilia Aleman Assigned Surgical Provider 05/08/20 03/06/21 MD Lyly 420 [facility] [address] [place], [place] [phone] documented as of this encounter
--- OUTSIDE RECORDS SUMMARY | 2022-05-09 10:58 | XMS_ITS | Encounter Summary ---
:1955 Author Organization [place] Address [facility] [place] [address] Care Team Providers Name Role Phone Krystin Christie APRN PELLETIZER TENDER Unavailable [phone] Krystin Christie APRN PELLETIZER TENDER Primary Care Provider [phone] Deyanira Stewart [facility] Unavailable Nadira Nichols RN Unavailable Unavailable Frank Argueta Unavailable Unavailable Thalia Glass MD Unavailable [phone] Anat Fuller MD Unavailable [phone] Eric Abdi MD Unavailable [phone] Cecilia Aleman MD Unavailable [phone] Sonja Tinajero [facility] Unavailable [phone] Vidhi Paiz APRN PELLETIZER TENDER Unavailable [phone] Krystin Christie APRN PELLETIZER TENDER Unavailable [phone] Sea Tsai DO Unavailable [phone] Vidhi Paiz APRN PELLETIZER TENDER Unavailable [phone] Sea Tsai DO Unavailable [phone] Stephanie Canela MD Unavailable [phone] Krystin Christie APRN PELLETIZER TENDER Unavailable [phone] Dima Hidalgo MD Unavailable Dima Hidalgo MD Unavailable Reason for Visit Reason Onset Date Comments Refill Request 10/21/2019 Encounter Details Date Type Department Care Team Description 10/21/2019 MyC Refill [facility] Krystin Christie Ref ill Request Lola Engel APRN PELLETIZER TENDER [address] [facility] [address] [facility] [address] [place] [address] [place] [address] [phone] Social History Tobacco Use Types Packs/Day Years Used Date Smoking Tobacco: Never Smokeless Tobacco: Never Alcohol Use Standard Drinks/Week Comments No 0 (1 standard drink = 0.6 oz pure alcoho l) Sex Assigned at Date Recorded Female 08/17/2018 10:39 PM SUPERVISOR FRYER FARM documented as of this encounter Miscellaneous Notes Telephone Encounter - Waleska Oliver RN - 10/22/2019 1:32 PM CDT Medication is being filled for 1 time refill only due to: due for diabetes check up in October day yosvany refills given Waleska Oliver RN [facility]/ [facility] documented in this encounter Plan of Treatment Upcoming Encounters Date Type Specialty Care Team Description 05/19/2022 Office Visit ENT Dima [facility]idalgo M D [address] [facility] [place], [place] [address] (Wo rk) 08/02/2022 Office Visit Neurology Yair Campos MD [address] [place] [address] (Wo rk) documented as of this encounter Visit Diagnoses Diagnosis Type 2 diabetes mellitus without complic ation, without long-term current use of insulin (H) documented in this encounter Additional Health Concerns Assessment Noted Time PHQ-9 Depression Total Score: 8 01/07/2019 2:02 PM CDT documented as of this encounter Care Teams Rotary Drier Operator Relationship Specialty Start Date End Date Krystin Christie PCP - General Nurse Practitioner 09/18/19 SAURABH Engel PELLETIZER TENDER [address] [facility] [place] [phone] Krystin Christie Assigned PCP 08/26/18 01/28/21 SAURABH Engel PELLETIZER TENDER [address] [facility] [place] [id number] Deyanira Stewart Pharmacist Pharmacist 01/13/20 08/24/20 [facility] [address] [place] [phone] Nadira Nichols, RN Lead Assistance Coordinator Primary Care - CC 01/21/20 03/02/20 Frank Argueta Community Health Worker 01/21/2002/14 Joan Monroe, Assigned OBGYN Provider 05/08/2001/16/21 Thalia Engel MD 8525 [facility] 100 [place], [place] [address] Anat Fuller Assigned Gastroenterology 05/08/20 12/12/20 MD Renee Provider [facility] [place], [place] [phone] Eric Abdi Assigned Musculoskeletal 05/08/20 03/27/21 MD Joo Provider TRIA [address] [place] [address] Cecilia Aleman Assigned Surgical Provider 05/08/20 03/06/21 MD Lyly [address] [facility] [address] [place], [place] [address] Sonja Tinajero Pharmacist 08/24/20 Dev, [facility] [address] [facility] [place] [phone] Vidhi Paiz Assigned PCP 01/29/21 07/10/21 SAURABH Turner PELLETIZER TENDER [address] [facility] [place] [phone] Krystin Christie Assigned PCP 07/11/21 07/24/21 SAURABH Engel PELLETIZER TENDER [address] [facility] [place] [phone] MD Eulalio Neurology 08/04/21 Sea Fink DO 909 [place], [place] [address] Vidhi Paiz Assigned PCP 07/25/21 01/07/22 SAURABH Turner PELLETIZER TENDER [address] [facility] [place] [phone] Isha Tsai Neuroscience 10/10/21 Sea Fink DO Provider [address]09 [place], [place] [address] Stephanie Canela Assigned OBGYN Provider 12/05/21 MD Alee [address] [address] Krystin Christie Assigned PCP 01/08/22 SAURABH Engel PELLETIZER TENDER [address] [facility] [place] [address] Dima Hidalgo MD MD Otolaryngology 02/15/[address] [id number] Dima Hidalgo MD Assigned Surgical Provider 03/12/[address] [id number] documented as of this encounter
--- OUTSIDE RECORDS SUMMARY | 2022-05-09 10:58 | XMS_ITS | Encounter Summary ---
:1955 Author Organization [place] Address [address] [facility] [place] [address] Care Team Providers Name Role Phone Krystin Christie APRN FLYING I INSTRUCTOR Unavailable [phone] Krystin Christie APRN FLYING I INSTRUCTOR Primary Care Provider [phone] Deyanira Stewart [facility] Unavailable Reason for Visit Reason Onset Date Comments Refill Request 01/13/2020 Encounter Details Date Type Department Care Team Description 01/13/2020 MyC Refill [facility] Krystin Christie Ref ill Request Lola Engel APRN FLYING I INSTRUCTOR 3305 [facility] 3305 [facility] [address] [place] [address] [place] [address] [phone] Social History Tobacco Use Types Packs/Day Years Used Date Smoking Tobacco: Never Smokeless Tobacco: Never Alcohol Use Standard Drinks/Week Comments No 0 (1 standard drink = 0.6 oz pure alcoho l) Sex Assigned at Date Recorded Female 08/17/2018 10:39 PM ASSISTANT FIELD HOCKEY COACH documented as of this encounter Miscellaneous Notes Telephone Encounter - rTiny Lomeli RN - 01/13/2020 1:58 PM CDT Routing refill request to provider for review/approval because: Needs visit and A1c not current Triny Lomeli RN documented in this encounter Plan of Treatment Upcoming Encounters Date Type Specialty Care Team Description 05/19/2022 Office Visit ENT Dima Hidalgo M D [address] [place], [place] [address] (Wo rk) 08/02/2022 Office Visit Neurology Yair Campos MD [address] [place], [place] [address] (Wo rk) documented as of this encounter Visit Diagnoses Diagnosis Type 2 diabetes mellitus with complicati on, without long-term current use of insulin (H) documented in this encounter Additional Health Concerns Assessment Noted Time PHQ-9 Depression Total Score: 8 01/07/2019 2:02 PM CDT documented as of this encounter Care Teams Vibrator Equipment Tester Relationship Specialty Start Date End Date Krystin Christie APRN FLYING I INSTRUCTOR PCP - General Nurse Practitioner 09/18/19 [address] [facility] [place] [id number] Krystin Christie APRN FLYING I INSTRUCTOR Assigned PCP 08/26/18 01/28/21 [address] [facility] [place] [address] Deyanira Stewart RPH Pharmacist Pharmacist 01/13/20 08/24/[address] [address] documented as of this encounter
--- OUTSIDE RECORDS SUMMARY | 2022-05-09 10:59 | XMS_ITS | Encounter Summary ---
:1955 Author Organization [place] Address [address] [facility] [place] [address] Care Team Providers Name Role Phone Tali Vilchis MD Unavailable Anat Fuller MD Unavailable [phone] Janny Hutton PA-C Unavailable [phone] Krystin Christie PHYSICAL OPTICS TEACHER DRUM SEALER Primary Care Provider Krystin Christie APRN DRUM SEALER Unavailable [phone] Sonja Tinajero [facility] Unavailable [phone] Eduin Wilhelm Unavailable Unavailable Cecilia Aleman MD Unavailable [phone] Simone Glass MD Unavailable [phone] Vinita Linares RN Unavailable Unavailable Reason for Visit Reason Onset Date Comments Pre Visit Planning - Done 08/16/2019 Encounter Details Date Type Department Care Team Description 08/16/2019 [facility] VISIT [facility] Cecilia Aleman Pre V isit Planning - Inst for Prostate and MD Lyly Done Urologic Cancers [address] [place] [address] [facility] [address] [place] [address] [phone] Social History Tobacco Use Types Packs/Day Years Used Date Smoking Tobacco: Never Smokeless Tobacco: Never Alcohol Use Standard Drinks/Week Comments No 0 (1 standard drink = 0.6 oz pure alcoho l) Sex Assigned at Date Recorded Female 08/17/2018 10:39 PM RIVET HEATER documented as of this encounter Miscellaneous Notes Telephone Encounter - Cynthia Castano - 07/22/2019 2:06 PM CST Images from the original note were not included. MEDICAL RECORDS REQUEST [place] [facility] [address] [place] [address] PHONE: [phone] FUTURE VISIT INFORMATION Becki Ridley, : 1955 scheduled for future visit at [facility] APPOINTMENT INFORMATION: ?? Date: 08/16/19 3PM ?? Provider: Cecilia Aleman MD ?? Reason for Visit/Diagnosis: Kidney stones REFERRAL INFORMATION: ?? Referring provider: SIMONE GLASS ?? Specialty: MD ?? Referring providers clinic: Clinics ?? Clinic contact number: [phone] RECORDS REQUESTED FOR VISIT NOTES STATUS/DETAILS OFFICE NOTE from referring provider yes OFFICE NOTE from other specialist no DISCHARGE SUMMARY from hospital no DISCHARGE REPORT from the ER no OPERATIVE REPORT no MEDICATION LIST no KIDNEY STONE CT STONE yes PRE-VISIT CHECKLIST Record collection complete Yes - Image in PACS Appointment appropriately scheduled (right time/right provider) Yes MyChart activation Yes Questionnaire complete If no, please explain: In process Completed by: Cynthia Castano T HEATER documented in this encounter Plan of Treatment Upcoming Encounters Date Type Specialty Care Team Description 05/19/2022 Office Visit ENT Dima [facility]idalgo M D [address] [facility] [address] [place], [place] [address] (Wo rk) 08/02/2022 Office Visit Neurology Yair Campos MD [address] [place] [address] (Wo rk) documented as of this encounter Visit Diagnoses Not on filedocumented in this encounter Additional Health Concerns Assessment Noted Time PHQ-9 Depression Total Score: 8 01/07/2019 2:02 PM CDT documented as of this encounter Care Teams Revenue Analyst Relationship Specialty Start Date End Date Krystin Chritsie PCP - General Nurse Practitioner 12/15/17 09/08/19 SAURABH Engel DRUM SEALER [address]305 [facility] [place] [phone] Tali Vilchis MD INTERNAL MEDICINE - 04/10/15 ENDOCRINOLOGY, DIABETES 420 [facility] MMC & METABOLISM [address] [place], [place] [address] Anat Fuller MD Internal Medicine 04/10/1509/[address] [facility] [address] [place], [place] [phone] Janny Hutton Physician Configuration Management Specialist Physician Configuration Management Specialist 06/30/15 09/17/19 CARLA Mckeon 420 [facility] [address]03 [place], [place] [address] Krystin Christie Assigned PCP 08/26/18 01/28/21 SAURABH Engel DRUM SEALER 3305 [facility] [place] [phone] Sonja Tinajero Pharmacist Pharmacist 12/24/18 09/17/19 [facility] 1440 [facility] [place] [phone] Eduin Wilhelm Personal Advocate & 06/17/19 09/17/19 Liaison (PAL) Cecilia Aleman MD Urology 07/22/19 09/17/19 MD Lyly 420 [facility] 394 [place] [address] Joan Monroe MD Obstetrics 07/22/19 09/17/19 Simone Engel MD [address] [place] [address] [place] [address] Vinita Linares, RN Registered Nurse 07/22/19 09/17/19 documented as of this encounter
--- OUTSIDE RECORDS SUMMARY | 2022-05-09 10:59 | XMS_ITS | Encounter Summary ---
:1955 Author Organization [place] Address [facility] [place] [address] Care Team Providers Name Role Phone Krystin Christie APRN, CNP Unavailable [phone] Krystin Christie APRN, CNP Primary Care Provider [phone] Encounter Details Date Type Department Care Team Description 09/25/2019 Travel Social History Tobacco Use Types Packs/Day Years Used Date Smoking Tobacco: Never Smokeless Tobacco: Never Alcohol Use Standard Drinks/Week Comments No 0 (1 standard drink = 0.6 oz pure alcoho l) Sex Assigned at Date Recorded Female 08/17/2018 10:39 PM ANESTHETIST documented as of this encounter Plan of Treatment Upcoming Encounters Date Type Specialty Care Team Description 05/19/2022 Office Visit ENT Dima Hidalgo M D [address] [place], [place] [address] (Wo rk) 08/02/2022 Office Visit Neurology Yair Campos MD 420 [place], [place] [address] (Wo rk) documented as of this encounter Visit Diagnoses Not on filedocumented in this encounter Additional Health Concerns Assessment Noted Time PHQ-9 Depression Total Score: 8 01/07/2019 2:02 PM CDT documented as of this encounter Care Teams Face Cleaner Relationship Specialty Start Date End Date Krystin Christie APRN CNP PCP - General Nurse Practitioner 09/18/[address] [place] [address] [place] [phone] Krystin Christie, SAURABH AUTOMOTIVE SERVICE CONSULTANT Assigned PCP 08/26/18 01/28/21 [address]305 [facility] [place] [address] documented as of this encounter
--- OUTSIDE RECORDS SUMMARY | 2022-05-09 10:59 | XMS_ITS | Encounter Summary ---
:1955 Author Organization [place] Address [address] [facility] [place] [address] Care Team Providers Name Role Phone Krystin Christie APRN, CNP Unavailable [phone] Krystin Christie APRN, CNP Primary Care Provider [phone] Reason for Visit Reason Comments Diabetic Eye Exam Encounter Details Date Type Department Care Team Description 09/18/2019 Office Visit [facility] Maranda Linares Astig matism of both eyes, unspecified type (Primary Dx); Clinic Lola Taylor OD Presbyopia; [address] [facility] Bleph aritis of upper and lower eyelids of both eyes, unspecified type; [facility] Type 2 diabetes mellitus without retinop athy (H); [address] [place] [address] Bilateral incipient cataracts; [place] [address] Hordeolum internum of right lower eyelid [phone] Social History Tobacco Use Types Packs/Day Years Used Date Smoking Tobacco: Never Smokeless Tobacco: Never Alcohol Use Standard Drinks/Week Comments No 0 (1 standard drink = 0.6 oz pure alcoho l) Sex Assigned at Date Recorded Female 08/17/2018 10:39 PM CREDIT RESOLUTION REPRESENTATIVE documented as of this encounter Patient Instructions Patient InstructionsMaranda Linares, OD - 09/18/2019 1:40 PM CREDIT RESOLUTION REPRESENTATIVE Patient Education Diabetes weakens the blood vessels all over the body, including the eyes. Damage to the blood vessels in the eyes can cause swelling or bleeding into part of the eye (called the retina). This is calleddiabetic retinopathy (WYC-njo-UU-puh-thee). If not treated, this disease can cause vision loss or bli ndness. Symptoms may include blurred or distorted vision, but many people have no symptoms. It's important to see your eye doctor regularly to check for problems. Early treatment and good control can help protect your vision. Here are the things you can do to help prevent vision loss: 1. Keep your blood sugar levels under tight control. 2. Bring high blood pressure under control. 3. No smoking. 4. Have yearly dilated eye exams. Hot compresses for 10-15 minutes at a time for 4 x day. If no improvement I can add an oral antibiotic, but it looks like it is draining on its own So just add heat first Blepharitis is a chronic or terminal operator inflammation of the eyelids and eyelashes. It affects all ages. Causes include poor eyelid hygiene, excess oil production, staph bacteria or an allergic reaction. Blepharitis may appear as greasy flakes on the base of the eyelashes, crusting of eyelashes and mildredness of the eyelid margins. Sometimes it may result in an acute infection of a gland in the eyelid called a stye and sometimes painless firm nodules can form in the eyelid. Treatment includes warm compresses and lid hygiene with an antimicrobial lid scrub and sometimes a prescription ointment is needed. Hot compresses/ warm soaks Warm compresses are very beneficial to the normal functioning of the eye. They help loosen up the eyelid debris that has collected on the eyelash follicles. Overabundance of bacterial microorganisms along the eyelashes and lid margins induce stress on the tear film and promote inflammation. Regular lid hygiene helps diminish the bacterial population to prevent inflammation and infection. Cleanse lids once daily with a lid cleansing product as directed such as Ocusoft or Sterilid which can be purchased at most pharmacies. Eyelid cleansers maintain clean and healthy eyelid margins. Ocusoft or sterilid are commercial products that are available as individual wrapped cleansing pads. Diluted baby shampoo will work, but not as well and is a cheaper alternative. Directions for warm soaks There are few methods for hot compresses. Moisten a washcloth with hot water, or microwave for 10 seconds, being careful to not get the cloth too hot. Then put the washcloth onto your eyelids for 5 minutes. It will cool quickly so a rice pack or eyemask that can be heated and laid on top of the washcloth will help retain the heat. IT RESOLUTION REPRESENTATIVE documented in this encounter Progress Notes Maranda Linares, OD - 09/18/2019 1:40 PM CST Chief Complaint Patient presents with ??? Diabetic Eye Exam HPI DM eye exam Blurry NVA and NVA She reports she is newly color blind: pinks and reds, brown and black. Has a bump on the lower right - has been ongoing since Monday. She flushed with warm water, seems a little better now. Lab Results Component Value Date A1C 8.4 05/03/2019 A1C 7.7 01/07/2019 A1C 7.7 10/15/2018 A1C 11.6 08/16/2018 A1C 9.7 09/28/2016 Last Eye Exam: 2018 Dilated Previously: Yes What are you currently using to see? Glasses - wears most recent for reading and conveinence distance Distance Vision Acuity: Noticed gradual change in both eyes Near Vision Acuity: Not satisfied Eye Comfort: Has a slightly painful bump on the lower lid right X 3 d Do you use eye drops? : No Occupation or Hobbies: Retired - spends time with family Laine Lundy CPO Medical, surgical and family histories reviewed and updated 09/18/2019. OBJECTIVE: See Ophthalmology exam ASSESSMENT: ICD-10-CM 1. Astigmatism of both eyes, unspecified type H52.203 EYE EXAM (SIMPLE-NONBILLABLE) REFRACTION 2. Presbyopia H52.4 3. Blepharitis of upper and lower eyelids of both eyes, unspecified type H01.00A H01.00B 4. Type 2 diabetes mellitus without retinopathy (H) E11.9 EYE EXAM (SIMPLE-NONBILLABLE) REFRACTION 5. Bilateral incipient cataracts H26.9 6. Hordeolum internum of right lower eyelid H00.022 PLAN: Warm compresses four times daily Lid hygiene Glucose control Becki Ridley aware eye exam results will be sent to Krystin Christie. Maranda Linares OD IT RESOLUTION REPRESENTATIVE documented in this encounter Plan of Treatment Upcoming Encounters Date Type Specialty Care Team Description 05/19/2022 Office Visit ENT Dima Hidalgo M D [address] [facility] [address] [place], [place] [address] (Wo rk) 08/02/2022 Office Visit Neurology Yair Campos MD [address] [facility] [place] [address] (Wo rk) documented as of this encounter Procedures Procedure Name Priority Date/Time Associated Diagnosis Comme nts EYE EXAM Routine 09/18/2019 2:28 PM Astigmatism of both (SIMPLE-NONBILLABLE) CREDIT RESOLUTION REPRESENTATIVE eyes, unspe cified type Type 2 diabetes mellitus without retinopathy (H) HC REFRACTION Routine 09/18/2019 2:28 PM Astigmatism of both CREDIT RESOLUTION REPRESENTATIVE eyes, unspecifie d type Type 2 diabetes mellitus without retinopathy (H) documented in this encounter Visit Diagnoses Diagnosis Astigmatism of both eyes, unspecified ty pe - Primary Presbyopia Blepharitis of upper and lower eyelids o f both eyes, unspecified type Type 2 diabetes mellitus without retinop athy (H) Type II or unspecified type diabetes almtia litus without mention of complication, not stated as uncontrolled Bilateral incipient cataracts Unspecified cataract Hordeolum internum of right lower eyelid Hordeolum internum documented in this encounter Additional Health Concerns Assessment Noted Time PHQ-9 Depression Total Score: 8 01/07/2019 2:02 PM CDT documented as of this encounter Care Teams Mucker Cofferdam Relationship Specialty Start Date End Date Krystin Christie APRN STEAM TRAP WORKER PCP - General Nurse Practitioner 09/18/[address] [place] [address] [place] [address] Krystin Christie APRN STEAM TRAP WORKER Assigned PCP 08/26/18 01/28/[address] [place] [address] [place] [address] documented as of this encounter
--- OUTSIDE RECORDS SUMMARY | 2022-05-09 10:59 | XMS_ITS | Encounter Summary ---
:1955 Author Organization [facility] [place] Address [facility] [place] [address] Care Team Providers Name Role Phone Tali Vilchis MD Unavailable Anat Fuller MD Unavailable [phone] Janny Hutton PA-C Unavailable [phone] Krystin Christie HAND PRESSER ASSOCIATE PROFESSOR OF MUSIC Primary Care Provider Krystin Christie APRN ASSOCIATE PROFESSOR OF MUSIC Unavailable [phone] Sonja Tinajero [facility] Unavailable [phone] Eduin Wilhelm Unavailable Unavailable Cecilia Aleman MD Unavailable [phone] Thalia Glass MD Unavailable [phone] Vinita Linares RN Unavailable Unavailable Encounter Details Date Type Department Care Team Description 08/27/2019 Travel Social History Tobacco Use Types Packs/Day Years Used Date Smoking Tobacco: Never Smokeless Tobacco: Never Alcohol Use Standard Drinks/Week Comments No 0 (1 standard drink = 0.6 oz pure alcoho l) Sex Assigned at Date Recorded Female 08/17/2018 10:39 PM COLLISION MECHANIC documented as of this encounter Plan of Treatment Upcoming Encounters Date Type Specialty Care Team Description 05/19/2022 Office Visit ENT Dima Hidalgo M D [address] [address] (Wo rk) 08/02/2022 Office Visit Neurology Yair Campos MD [address] [facility] [address] [place], [place] [address] (Wo rk) documented as of this encounter Visit Diagnoses Not on filedocumented in this encounter Additional Health Concerns Assessment Noted Time PHQ-9 Depression Total Score: 8 01/07/2019 2:02 PM CDT documented as of this encounter Care Teams Shell Coremaker Relationship Specialty Start Date End Date Krystin Christie PCP - General Nurse Practitioner 12/15/17 09/08/19 SAURABH Engel ASSOCIATE PROFESSOR OF MUSIC [address] [facility] [address] [place] [id number] Tali Vilchis MD INTERNAL MEDICINE - 04/10/15 ENDOCRINOLOGY, DIABETES [address] [facility] [address] [place], [place] [id number] Anat Fuller MD Internal Medicine 04/10/1509/16 MD Renee [address] [facility] [address] [place] [address] Janny Hutton Physician Automotive Sales Executive Physician Automotive Sales Executive 06/30/15 09/17/19 CARLA Mckeon [address] [facility] [address] [place] [address] Krystin Christie Assigned PCP 08/26/18 01/28/21 SAURABH Engel ASSOCIATE PROFESSOR OF MUSIC [address] [facility] [address] [place] [phone] Sonja Tinajero Pharmacist Pharmacist 12/24/18 09/17/19 Dev [facility] [address] [facility] [place] [id number] Eduin Wilhelm Personal Advocate & 06/17/19 09/17/19 Liaison (PAL) Cecilia Aleman MD Urology 07/22/19 09/17/19 MD Lyly [address] [facility] [address] [place] [address] Joan Monroe MD Obstetrics 07/22/19 09/17/19 Thalia Engel MD [address] [facility] [address] [place] [address] Vinita Linares RN Registered Nurse 07/22/19 09/17/19 documented as of this encounter
--- OUTSIDE RECORDS SUMMARY | 2022-05-09 10:59 | XMS_ITS | Encounter Summary ---
:1955 Author Organization [place] Address [facility] [place] [address] Care Team Providers Name Role Phone Tali Vilchis MD Unavailable Anat Fuller MD Unavailable [phone] Janny Hutton PA-C Unavailable [phone] Krystin Christie ELECTRICAL PRODUCTS ENGINEER MAIL ORDER CLERK Primary Care Provider Krystin Christie APRN MAIL ORDER CLERK Unavailable [phone] Sonja Tinajero [facility] Unavailable [phone] Eduin Wilhelm Unavailable Unavailable Cecilia Aleman MD Unavailable [phone] Thalia Glass MD Unavailable [phone] Vinita Linares RN Unavailable Unavailable Reason for Visit Reason Comments Consult Kidney stones Consultation (Routine) - Closed Specialty Diagnoses / Procedures Referred By Contact Refer red To Contact Diagnoses Nephrolithiasis Thalia Glass [facility] MD Maren [facility] and [address] [place] [address] [place] [address] Phone: Fax: Referral ID Status Reason Start Date Expiration Date Visits Requ ested Visits Authorized [id number] Closed 07/18/2019 07/17/2020 1 1 Encounter Details Date Type Department Care Team Description 08/16/2019 Office Visit [facility] Urology and Cecilia Aleman (Primary Dx); Inst for Prostate and MD Lyly Gross hematuria Urologic Cancers [address] [facility] [address] [facility] [address] [place] [address] [phone] Social History Tobacco Use Types Packs/Day Years Used Date Smoking Tobacco: Never Smokeless Tobacco: Never Alcohol Use Standard Drinks/Week Comments No 0 (1 standard drink = 0.6 oz pure alcoho l) Sex Assigned at Date Recorded Female 08/17/2018 10:39 PM PALEONTOLOGICAL HELPER documented as of this encounter Last Filed Vital Signs Vital Sign Reading Time Taken Comments Blood Pressure 137/83 08/16/2019 2:39 PM PALEONTOLOGICAL HELPER Pulse 93 08/16/2019 2:39 PM PALEONTOLOGICAL HELPER Temperature - - Respiratory Rate - - Oxygen Saturation - - Inhaled Oxygen Concentration - - Weight 88.9 kg (196 lb) 08/16/2019 2:39 PM PALEONTOLOGICAL HELPER Height 157.5 cm (5' 2) 08/16/2019 2:39 PM PALEONTOLOGICAL HELPER Body Mass Index 35.85 08/16/2019 2:39 PM PALEONTOLOGICAL HELPER documented in this encounter Patient Instructions Patient InstructionsThomas Linares, EMT - 08/16/2019 3:00 PM CST Please schedule a Cysto and Litholink review with Dr. Aleman. Please complete the LithoLink 24hr Urine collection x2 . They will mail you the kit with instructions on completing the collection and mailing it back to them. If you do not receive the LithoLink in 7-10 days please call . Once you complete the kit and return it, and we get the results we will contact you to schedule a follow up appointment if one is not already made. Please schedule your Cysto in the next month, and LithoLink review in ~2 months. It was a pleasure meeting with you today. Thank you for allowing me and my team the privilege of caring for you today. YOU are the reason we are here, and I truly hope we provided you with the excellent service you deserve. Please let us know if there is anything else we can do for you so that we can be sure you are leaving completely satisfied with your care experience. Thomas Linares EMT ONTOLOGICAL HELPER documented in this encounter Progress Notes Triny Jack CMA - 08/16/2019 3:00 PM CST Chief Complaint Patient presents with ??? Consult Kidney stones Triny Jack MA ONTOLOGICAL HELPER Cecilia Aleman MD - 08/16/2019 3:00 PM CST SUBJECTIVE: Becki Ridley is a 64 year old female who presents to clinic today for the following health issues: Concern - Hematuria Patient presents for evaluation and management of gross hematuria with a concern for renal calculi. Patient notes recent gross hematuria (described voiding small clots) Noted dysuria, symptoms of UTI but had negative culture. Had CT scan that did not reveal any renal calculi or other upper tract pathology. We discussed UTI, hematuria, renal calculi, work up for hematuria. ROS: CONSTITUTIONAL:NEGATIVE for fever, chills, change in weight INTEGUMENTARY/SKIN: NEGATIVE for worrisome rashes, moles or lesions EYES: NEGATIVE for vision changes or irritation ENT/MOUTH: NEGATIVE for ear, mouth and throat problems RESP:NEGATIVE for significant cough or SOB CV: NEGATIVE for chest pain, palpitations or peripheral edema GI: NEGATIVE for nausea, abdominal pain, heartburn, or change in bowel habits : negative MUSCULOSKELETAL: NEGATIVE for significant arthralgias or myalgia PSYCHIATRIC: NEGATIVE for changes in mood or affect Past Medical History: Diagnosis Date ??? Angioedema ??? Anxiety ??? Arthritis ??? Asthma ??? Blood transfusion ??? Depression ??? DM2 (diabetes mellitus, type 2) (H) ??? Hypertension ??? Kidney infection ??? Lower extremity edema ??? VILLAREAL (nonalcoholic steatohepatitis) ??? PCOS (polycystic ovarian syndrome) ??? Restless legs syndrome ??? Restrictive lung disease ??? Sleep apnea ??? Subclinical hypothyroidism 2009 Past Surgical History: Procedure Laterality Date ??? COLONOSCOPY age 52 [place] results ??? EYE SURGERY ??? IR LIVER BIOPSY PERCUTANEOUS 07/04/2019 ??? PERCUTANEOUS BIOPSY LIVER Right 07/04/2019 Procedure: Percutaneous Liver Biopsy; Surgeon: Wali Hare PA-C; [facility] Family History Problem Relation Age of Onset [...] ??? Macular Degeneration No family hx of Social History Tobacco Use ??? Smoking status: Never Smoker ??? Smokeless tobacco: Never Used Substance Use Topics ??? Alcohol use: No Alcohol/week: 0.0 standard drinks OBJECTIVE: BP 137/83 Pulse 93 Ht 1.575 m (5' 2) Wt 88.9 kg (196 lb) BMI 35.85 kg/m?? Body mass index is 35.85 kg/m??. EXAM: GENERAL APPEARANCE: healthy, alert and no distress RESP: negative CV: negative Abdomen: Abdomen soft, non-tender CVAT: absent : Deferred SKIN: no suspicious lesions or rashes IMPRESSION: 64 y/o F with hematuria and dysuria Diagnostic test results: CT scan reviewed ASSESSMENT/PLAN: ICD-10-CM 1. Dysuria R30.0 Mycoplasma large colony culture Ureaplasma culture CANCELED: Ureaplasma culture CANCELED: Mycoplasma large colony culture Will send ureaplasma, mycoplasma, cytology today 24 hr urine x2 Schedule for cystoscopy next available Cecilia Aleman MD [facility] AND INST FOR PROSTATE AND UROLOGIC CANCERS I spent over 30 minutes with the patient. Over half this time was spent on counseling for gross hematuria and dysuria. Answers for HPI/ROS submitted by the patient on 08/16/2019 General Symptoms: Yes Skin Symptoms: No HENT Symptoms: Yes EYE SYMPTOMS: Yes HEART SYMPTOMS: No LUNG SYMPTOMS: No INTESTINAL SYMPTOMS: Yes URINARY SYMPTOMS: Yes GYNECOLOGIC SYMPTOMS: No BREAST SYMPTOMS: No SKELETAL SYMPTOMS: Yes BLOOD SYMPTOMS: No NERVOUS SYSTEM SYMPTOMS: Yes MENTAL HEALTH SYMPTOMS: No Fever: No Loss of appetite: No Weight loss: No Weight gain: No Fatigue: Yes Night sweats: No Chills: Yes Increased stress: No Excessive hunger: No Excessive thirst: No Feeling hot or cold when others believe the temperature is normal: No Loss of height: No Post-operative complications: No Surgical site pain: No Hallucinations: No Change in or Loss of Energy: Yes Hyperactivity: No Confusion: No Ear pain: No Ear discharge: No Hearing loss: Yes Tinnitus: Yes Nosebleeds: No Congestion: No Sinus pain: No Trouble swallowing: No Voice hoarseness: Yes Mouth sores: No Sore throat: No Tooth pain: Yes Gum tenderness: Yes Bleeding gums: No Change in taste: No Change in sense of smell: No Dry mouth: No Hearing aid used: No Neck lump: No Eye pain: Yes Vision loss: Yes Dry eyes: No Watery eyes: Yes Eye bulging: No Double vision: No Flashing of lights: Yes Spots: No Floaters: No Redness: No Crossed eyes: No Tunnel Vision: No Yellowing of eyes: No Eye irritation: No Heart burn or indigestion: Yes Nausea: Yes Vomiting: No Abdominal pain: Yes Bloating: Yes Constipation: No Diarrhea: No Blood in stool: Yes Black stools: No Rectal or Anal pain: No Fecal incontinence: No Yellowing of skin or eyes: No Vomit with blood: No Change in stools: No Trouble holding urine or incontinence: No Pain or burning: Yes Trouble starting or stopping: No Increased frequency of urination: No Blood in urine: No Decreased frequency of urination: No Frequent nighttime urination: No Flank pain: Yes Difficulty emptying bladder: No Back pain: No Muscle aches: Yes Neck pain: Yes Swollen joints: Yes Joint pain: Yes Bone pain: No Muscle cramps: Yes Muscle weakness: Yes Joint stiffness: Yes Bone fracture: No Trouble with coordination: No Dizziness or trouble with balance: Yes Fainting or black-out spells: No Memory loss: No Headache: Yes Seizures: No Speech problems: Yes Tingling: No Tremor: No Weakness: Yes Difficulty walking: No Paralysis: No Numbness: Yes ONTOLOGICAL HELPER documented in this encounter Plan of Treatment Upcoming Encounters Date Type Specialty Care Team Description 05/19/2022 Office Visit ENT Dima Hidalgo M D [address] [facility] Saroj Smith [place], [place] [address] (Wo rk) 08/02/2022 Office Visit Neurology Yair Campos MD [address] [place] [id number] (Wo rk) documented as of this encounter Procedures Procedure Name Priority Date/Time Associated Comments Diagnosis UREAPLASMA CULTURE Routine 08/16/2019 4:00 PM Dysuria Res ults for this PALEONTOLOGICAL HELPER procedure are i n the results section. MYCOPLASM LARGE Routine 08/16/2019 4:00 PM Dysuria Result s for this COLONY CULTURE PALEONTOLOGICAL HELPER procedure are in the results section. documented in this encounter Results (ABNORMAL) Ureaplasma culture (08/16/2019 4:00 PM PALEONTOLOGICAL HELPER) Component Value Ref Test Analysis Performed At [facility] Range Method Time Signature Specimen Unspecified INFECTIOUS Description Urine DISEASES DIAGNOSTIC LABORATORY Culture Micro Ureaplasma 08/23/2019 INFECTIOUS species 3:05 PM PALEONTOLOGICAL HELPER DISEASES isolated (A) DIAGNOSTIC LABORATORY Specimen (Source) Anatomical Collection Method Collection Time Re ceived Time Location / / Volume Laterality Unspecified Urine 08/16/2019 4:00 020 4:12 PM PALEONTOLOGICAL HELPER PM PALEONTOLOGICAL HELPER Cecilia Aleman MD LAB - MICRO GENERAL ORDERAB LES Performing Organization Address City/State/ZIP Code Phon e Number INFECTIOUS DISEASES [address] [place] [address] DIAGNOSTIC LABORATORY, [facility] INFECTIOUS DISEASES [address] [place] [address], A DIAGNOSTIC LABORATORY Mycoplasma large colony culture (08/16/2019 4:00 PM PALEONTOLOGICAL HELPER) Component Value Ref Test Analysis Performed At Patholo gist Range Method Time Signature Specimen Unspecified INFECTIOUS Description Urine DISEASES DIAGNOSTIC LABORATORY Culture Micro No large colony 08/23/2019 INFECTIOU S Mycoplasma 3:05 PM PALEONTOLOGICAL HELPER DISEASES species DIAGNOSTIC isolated LABORATORY Specimen (Source) Anatomical Collection Method Collection Time Re ceived Time Location / / Volume Laterality Unspecified Urine 08/16/2019 4:00 020 4:12 PM PALEONTOLOGICAL HELPER PM PALEONTOLOGICAL HELPER Cecilia Aleman MD LAB - MICRO GENERAL ORDERAB LES Performing Organization Address City/State/ZIP Code Phon e Number INFECTIOUS DISEASES [address] [place] [address] DIAGNOSTIC LABORATORY, [facility] INFECTIOUS DISEASES [address] [place] [address], [place] DIAGNOSTIC LABORATORY documented in this encounter Visit Diagnoses Diagnosis Dysuria - Primary Gross hematuria documented in this encounter Additional Health Concerns Assessment Noted Time PHQ-9 Depression Total Score: 8 01/07/2019 2:02 PM CDT documented as of this encounter Care Teams Speed Operator Relationship Specialty Start Date End Date Krystin Christie PCP - General Nurse Practitioner 12/15/17 09/08/19 SAURABH Engel MAIL ORDER CLERK [address] [facility] [place] [address] Tali Vilchis MD INTERNAL MEDICINE - 04/10/15 ENDOCRINOLOGY, DIABETES [address] [facility] [address] [place], [place] [address] Anat Fuller MD Internal Medicine 04/10/1509/16 MD Renee [address] [facility] [place], [place] [phone] Janny Hutton Physician Canal Driver Physician Canal Driver 06/30/15 09/17/19 CARLA Mckeon [address] [facility] [address] [place], [place] [address] Krystin Christie Assigned PCP 08/26/18 01/28/21 SAURABH Engel MAIL ORDER CLERK [address] [facility] [place] [id number] Sonja Tinajero Pharmacist Pharmacist 12/24/18 09/17/19 Dev, [facility] [address] [place] [address] Eduin Wilhelm Personal Advocate & 06/17/19 09/17/19 Liaison (PAL) Cecilia Aleman MD Urology 07/22/19 09/17/19 MD Lyly [address] [facility] [address] [place] [address] Joan Monroe MD Obstetrics 07/22/19 09/17/19 Thalia Engel MD [address] [place] [address] Vinita Linares, RN Registered Nurse 07/22/19 09/17/19 documented as of this encounter
--- OUTSIDE RECORDS SUMMARY | 2022-05-09 10:59 | XMS_ITS | Encounter Summary ---
:1955 Author Organization [place] [facility] [place] [address] Care Team Providers Name Role Phone Tali Vilchis MD Unavailable Anat Fuller MD Unavailable [phone] Janny Hutton PA-C Unavailable [phone] Krystin Christie [employer] BUILDING [employer]PPLIES SALESPERSON RETAIL Primary Care Provider Krystin Christie APRN BUILDING SUPPLIES SALESPERSON RETAIL Unavailable [phone] Sonja Tinajero [facility] Unavailable [phone] Eduin Wilhelm Unavailable Unavailable Cecilia Aleman MD Unavailable [phone] Thalia Glass MD Unavailable Vinita Linares RN Unavailable Unavailable Reason for Visit Reason Comments Cystoscopy Hematuria Encounter Details Date Type Department Care Team Description 09/06/2019 Office Visit [facility] Urology and Cecilia Aleman Gross hematuria Inst for Prostate and MD Lyly (Primary Dx) Urologic Cancers [address] [facility] 909 [facility] [address] [place] [address] [phone] Social History Tobacco Use Types Packs/Day Years Used Date Smoking Tobacco: Never Smokeless Tobacco: Never Alcohol Use Standard Drinks/Week Comments No 0 (1 standard drink = 0.6 oz pure alcoho l) Sex Assigned at Date Recorded Female 08/17/2018 10:39 PM SHOP COORDINATOR documented as of this encounter Last Filed Vital Signs Vital Sign Reading Time Taken Comments Blood Pressure 127/81 09/06/2019 11:32 AM SHOP COORDINATOR Pulse 88 09/06/2019 11:32 AM SHOP COORDINATOR Temperature - - Respiratory Rate - - Oxygen Saturation - - Inhaled Oxygen Concentration - - Weight 88.9 kg (195 lb 14.4 oz) 09/06/2019 11:32 AM SHOP COORDINATOR Height 157.5 cm (5' 2) 09/06/2019 11:32 AM SHOP COORDINATOR Body Mass Index 35.83 09/06/2019 11:32 AM SHOP COORDINATOR documented in this encounter Patient Instructions Patient InstructionsThomas Linares EMT - 09/06/2019 11:30 AM CST Please follow up in ~2months to review your LithoLink Urine Results with Alia. Please complete the LithoLink 24hr Urine collection [...] appointment if one is not already made. KEAGAN Everett AFTER YOUR CYSTOSCOPY ? You have just completed a cystoscopy, or cysto, which allowed your physician to learn more about your bladder (or to remove a stent placed after surgery). We suggest that you continue to avoid caffeine, fruit juice, and alcohol for the next 24 hours, however, you are encouraged to return to your normal activities. ? A few things that are considered normal after your cystoscopy: ?? * Small amount of bleeding (or spotting) that clears within the next 24 hours ?? * Slight burning sensation with urination ?? * Sensation to of needing to avoid more frequently ?? * The feeling of air in your urine ?? * Mild discomfort that is relieved with Tylenol ? Please contact our office promptly if you: ?? * Develop a fever above 101 degrees ?? * Are unable to urinate ?? * Develop bright red blood that does not stop ?? * Severe pain or swelling ? Please contact our office with any concerns or questions @[facility]. COORDINATOR documented in this encounter Progress Notes Cecilia Aleman MD - 09/06/2019 11:30 AM CST Indication: hematuria Discussed with patient the alternatives, risks, and procedure. Questions were answered. Informed consent was obtained for cystoscopy. September 06, 2019 CYSTOSCOPY: The patient was brought to the procedures room where she was placed in the supine position. She was prepped and draped in a sterile fashion. A #16-Turkmen flexible cystoscope was introduced into the urinary bladder. The anterior urethra and bladder neck were negative. Within the urinary bladder, there was no evidence of stones, tumors, or growths. The ureteral orifices were well visualized bilaterallyand found to have clear efflux of urine. The patient had minimal trabeculation. On retroflex view, no lesions were seen. Follow up with Alia Ramires to review 24 h urine collection when available COORDINATOR documented in this encounter Nursing Notes Diana Yates CMA - 09/06/2019 11:30 AM CST Chief Complaint Patient presents with ??? Cystoscopy Hematuria Blood pressure 127/81, pulse 88, height 1.575 m (5' 2), weight 88.9 kg (195 lb 14.4 oz). Body mass index is 35.83 kg/m??. Patient Active Problem List Diagnosis ? ? DM type 2 (diabetes mellitus, type 2); BP Goal <140/90 ??? Subclinical hypothyroidism ??? Urticaria ??? Asthma ??? NAFLD (nonalcoholic fatty liver disease) ??? Morbid obesity, unspecified obesity type (H) ??? History of corticosteroid therapy ??? Elevated liver enzymes ??? Depression ??? Weakness ??? Generalized weakness ??? Advance care planning ??? Diabetic gastroparesis (H) Allergies Allergen Reactions ??? Cipro [Quinolones] Itching and Difficulty breathing ??? Ciprofloxacin Itching and Shortness Of Breath ??? Codeine Shortness Of Breath Other reaction(s): Syncope ??? Codeine Sulfate Other (See Comments) Blacked out ??? Vicodin [Hydrocodone-Acetaminophen] Itching and Difficulty breathing ??? Darvocet [Propoxyphene N-Apap] Itching ??? Pioglitazone [place] sick Current Outpatient Medications Medication Sig Dispense Refill ??? albuterol (PROAIR HFA/PROVENTIL HFA/VENTOLIN HFA) 108 (90 Base) MCG/ACT inhaler Inhale 2 puffs into the lungs every 6 hours as needed ??? blood glucose (ACCU-CHEK ANNIE PLUS) test strip 1 strip by In Vitro route daily 200 strip 1 ??? blood glucose monitoring ([facility] CONTOUR NEXT) test strip Use to test blood sugar 2 times daily or as directed. 200 each 3 ??? blood glucose monitoring (JAYLENE MICROLET) lancets Use to test blood sugar 2 times daily or as directed. 4 Box 3 ??? busPIRone (BUSPAR) 10 MG tablet Take 1 tablet (10 mg) by mouth 2 times daily 180 tablet 0 ??? diclofenac (VOLTAREN) 1 % topical gel Place 4 g onto the skin 4 times daily as needed for moderate pain 100 g 1 ??? doxycycline hyclate (VIBRA-TABS) 100 MG tablet Take 1 tablet (100 mg) by mouth 2 times daily 14 tablet 0 ??? EPINEPHrine (EPIPEN 2-KITTY) 0.3 MG/0.3ML injection Inject 0.3 mg into the muscle once as needed. ??? glipiZIDE (GLUCOTROL XL) 5 MG 24 hr tablet Take 2 tablets (10 mg) by mouth daily 180 tablet 0 ??? ipratropium - albuterol 0.5 mg/2.5 mg/3 mL (DUONEB) 0.5-2.5 (3) MG/3ML neb solution Take 1 vial (3 mLs) by nebulization every 6 hours as needed for shortness of breath / dyspnea or wheezing 1 Box 0 ??? levothyroxine (SYNTHROID/LEVOTHROID) 50 MCG tablet Take 1 tablet (50 mcg) by mouth daily 90 tablet 0 ??? metFORMIN (GLUCOPHAGE-XR) 500 MG 24 hr tablet Take 3 tablets (1,500 mg) by mouth daily (with dinner) TAKE 4 TABLETS(2000 MG) BY MOUTH DAILY (Patient taking differently: Take 1,500 mg by mouth daily(with dinner) ) 360 tablet 0 ??? order for DME Equipment being ordered: orthopedic Diabetic shoes 1 each 0 ??? Vitamin D, Cholecalciferol, 1000 units TABS Take 1,000 Units by mouth daily Social History Tobacco Use ??? Smoking status: Never Smoker ??? Smokeless tobacco: Never Used Substance Use Topics ??? Alcohol use: No Alcohol/week: 0.0 standard drinks ??? Drug use: No Diana Yates CMA 09/06/2019 11:35 AM COORDINATOR Thomas Linares EMT - 09/06/2019 11:30 AM CST Chief Complaint Patient presents with ??? Cystoscopy Hematuria Blood pressure 127/81, pulse 88, height 1.575 m (5' 2), weight 88.9 kg (195 lb 14.4 oz). Body mass index is 35.83 kg/m??. Patient Active Problem List Diagnosis ? ? DM type 2 (diabetes mellitus, type 2); BP Goal <140/90 ??? Subclinical hypothyroidism ??? Urticaria ??? Asthma ??? NAFLD (nonalcoholic fatty liver disease) ??? Morbid obesity, unspecified obesity type (H) ??? History of corticosteroid therapy ??? Elevated liver enzymes ??? Depression ??? Weakness ??? Generalized weakness ??? Advance care planning ??? Diabetic gastroparesis (H) Allergies Allergen Reactions ??? Cipro [Quinolones] Itching and Difficulty breathing ??? Ciprofloxacin Itching and Shortness Of Breath ??? Codeine Shortness Of Breath Other reaction(s): Syncope ??? Codeine Sulfate Other (See Comments) Blacked out ??? Vicodin [Hydrocodone-Acetaminophen] Itching and Difficulty breathing ??? Darvocet [Propoxyphene N-Apap] Itching ??? Pioglitazone [place] sick Current Outpatient Medications Medication Sig Dispense Refill ??? albuterol (PROAIR HFA/PROVENTIL HFA/VENTOLIN HFA) 108 (90 Base) MCG/ACT inhaler Inhale 2 puffs into the lungs every 6 hours as needed ??? blood glucose (ACCU-CHEK ANNIE PLUS) test strip 1 strip by In Vitro route daily 200 strip 1 ??? blood glucose monitoring (JAYLENE CONTOUR NEXT) test strip Use to test blood sugar 2 times daily or as directed. 200 each 3 ??? blood glucose monitoring (JAYLENE MICROLET) lancets Use to test blood sugar 2 times daily or as directed. 4 Box 3 ??? busPIRone (BUSPAR) 10 MG tablet Take 1 tablet (10 mg) by mouth 2 times daily 180 tablet 0 ??? diclofenac (VOLTAREN) 1 % topical gel Place 4 g onto the skin 4 times daily as needed for moderate pain 100 g 1 ??? doxycycline hyclate (VIBRA-TABS) 100 MG tablet Take 1 tablet (100 mg) by mouth 2 times daily 14 tablet 0 ??? EPINEPHrine (EPIPEN 2-KITTY) 0.3 MG/0.3ML injection Inject 0.3 mg into the muscle once as needed. ??? glipiZIDE (GLUCOTROL XL) 5 MG 24 hr tablet Take 2 tablets (10 mg) by mouth daily 180 tablet 0 ??? ipratropium - albuterol 0.5 mg/2.5 mg/3 mL (DUONEB) 0.5-2.5 (3) MG/3ML neb solution Take 1 vial (3 mLs) by nebulization every 6 hours as needed for shortness of breath / dyspnea or wheezing 1 Box 0 ??? levothyroxine (SYNTHROID/LEVOTHROID) 50 MCG tablet Take 1 tablet (50 mcg) by mouth daily 90 tablet 0 ??? metFORMIN (GLUCOPHAGE-XR) 500 MG 24 hr tablet Take 3 tablets (1,500 mg) by mouth daily (with dinner) TAKE 4 TABLETS(2000 MG) BY MOUTH DAILY (Patient taking differently: Take 1,500 mg by mouth daily(with dinner) ) 360 tablet 0 ??? order for DME Equipment being ordered: orthopedic Diabetic shoes 1 each 0 ??? Vitamin D, Cholecalciferol, 1000 units TABS Take 1,000 Units by mouth daily Social History Tobacco Use ??? Smoking status: Never Smoker ??? Smokeless tobacco: Never Used Substance Use Topics ??? Alcohol use: No Alcohol/week: 0.0 standard drinks ??? Drug use: No Invasive Procedure Safety Checklist: Procedure: Cystoscopy Action: Complete sections and checkboxes as appropriate. Pre-procedure: 1. Patient ID Verified with 2 identifiers ([place] and or MRN) : YES 2. Procedure and site verified with patient/designee (when able) : YES 3. Accurate consent documentation in medical record : YES 4. H&P (or appropriate assessment) documented in medical record : N/A H&P must be up to 30 days prior to procedure an updated within 24 hours of Procedure as applicable. 5. Relevant diagnostic and radiology test results appropriately labeled and displayed as applicable : YES 6. Blood products, implants, devices, and/or special equipment available for the procedure as applicable : YES 7. Procedure site(s) marked with provider initials [Exclusions: none] : NO 8. Marking not required. Reason : Yes Procedure does not require site marking Time Out: Time-Out performed immediately prior to starting procedure, including verbal and active participation of all team members addressing: YES 1. Correct patient identity. 2. Confirmed that the correct side and site are marked. 3. An accurate procedure to be done. 4. Agreement on the procedure to be done. 5. Correct patient position. 6. Relevant images and results are properly labeled and appropriately displayed. 7. The need to administer antibiotics or fluids for irrigation purposes during the procedure as applicable. 8. Safety precautions based on patient history or medication use. During Procedure: Verification of correct person, site, and procedure occurs any time the responsibility for care of the patient is transferred to another member of the care team. The following medication was given: MEDICATION: Lidocaine Uro-Jet 2% 200mg (20mg/mL) ROUTE: Urethral SITE: Urethra DOSE: 10mL LOT #: [id number] JOURNEYMAN LEVEL ACOUSTIC ANALYST: [place]. EXPIRATION DATE: 06-06 [facility]#: [id number] Was there drug waste? No Prior to injection, verified patient identity using patient's name and date of . Due to injection administration, patient instructed to remain in clinic for 15 minutes afterwards, and to report any adverse reaction to me immediately. Drug Amount Wasted: None. Vial/Syringe: Single dose vial KEAGAN Everett 09/06/2019 11:54 AM COORDINATOR documented in this encounter Plan of Treatment Upcoming Encounters Date Type Specialty Care Team Description 05/19/2022 Office Visit ENT Dima Hidalgo M D [address] [place], [place] [address] (Wo rk) 08/02/2022 Office Visit Neurology Yair Campos MD [address] [facility] [place] [address] (Wo rk) documented as of this encounter Procedures Procedure Name Priority Date/Time Associated Diagnosis Comme nts HC CYSTOURETHROSCOPY Routine 09/06/2019 6:06 PM SHOP COORDINATOR Gross nina turia documented in this encounter Visit Diagnoses Diagnosis Gross hematuria - Primary documented in this encounter Administered Medications Inactive Administered Medications - up to 3 most recent administrations Medication Order MAR Action Action Date Dose Rate Site lidocaine (XYLOCAINE) 2 % external Given 09/06/2019 11:53 AM SHOP COORDINATOR gel Urethral, ONCE, On Mon09/06/19 at 1200, For 1 dose documented in this encounter Additional Health Concerns Assessment Noted Time PHQ-9 Depression Total Score: 8 01/07/2019 2:02 PM CDT documented as of this encounter Care Teams Mirror Department Supervisor Relationship Specialty Start Date End Date Krystin Christie PCP - General Nurse Practitioner 12/15/17 09/08/19 SAURABH Engel BUILDING SUPPLIES SALESPERSON RETAIL [address] [facility] [place] [id number] Tali Vilchis MD INTERNAL MEDICINE - 04/10/15 MD ENDOCRINOLOGY, DIABETES [address] [facility] [address] [place], [place] [address] Anat Fuller MD Internal Medicine 04/10/1509/16 MD Renee [address] [facility] [address] [place], [place] [id number] Janny Hutton Physician Emergency Room Specialist Physician Emergency Room Specialist 06/30/15 09/17/19 CARLA Mckeon [address] [facility] [address] [place], [place] [address] Krystin Christie Assigned PCP 08/26/18 01/28/21 SAURABH Engel BUILDING SUPPLIES SALESPERSON RETAIL [address] [facility] [address] [place], [place] [id number] Sonja Tinajero Pharmacist Pharmacist 12/24/18 09/17/19 [facility] [address] [facility] [address] [place], [place] [id number] Eduin Wilhelm Personal Advocate & 06/17/19 09/17/19 Liaison (PAL) Cecilia Aleman MD Urology 07/22/19 09/17/19 MD Lyly [address] [facility] [address] [place] [address] Joan Monroe MD Obstetrics 07/22/19 09/17/19 Thalia Engel MD [address] [place], [place] [address] Vinita Linares, MIKE Registered Nurse 07/22/19 09/17/19 documented as of this encounter
--- OUTSIDE RECORDS SUMMARY | 2022-05-09 10:59 | XMS_ITS | Encounter Summary ---
:1955 Author Organization [place] Address [facility] [place] [address] Care Team Providers Name Role Phone Tali Vilchis MD Unavailable Anat Fuller MD Unavailable [phone] Janny Hutton PA-C Unavailable [phone] Krystin Christie KILN REPAIRER TROMMEL TENDER Primary Care Provider PratikKrystin newby APRN TROMMEL TENDER Unavailable [phone] Sonja Tinajero [facility] Unavailable [phone] Eduin Wilhelm Unavailable Unavailable Cecilia Aleman MD Unavailable [phone] Thalia Glass MD Unavailable [phone] Vinita Linares RN Unavailable Unavailable Reason for Visit Diagnostic Imaging CT Scan (Routine) - Closed Specialty Diagnoses / Procedures Referred By Contact Refer red To Contact Diagnoses Kidney stone Cecilia Aleman, Procedures CT Abdomen pelvis w/o contrast [address] [facility] [address] [place], [place] [address] Referral ID Status Reason Start Date Expiration Date Visits Requ ested Visits Authorized [id number] Closed 08/12/2019 08/11/2020 1 1 Encounter Details Date Type Department Care Team Description 08/16/2019 Ancillary Procedure [facility] Cecilia Aleman stone Center CT MD Lyly [address] [place] [address] [facility] [address] 1st Floor [facility] [address] [place] [address] [phone] (Wo rk) Social History Tobacco Use Types Packs/Day Years Used Date Smoking Tobacco: Never Smokeless Tobacco: Never Alcohol Use Standard Drinks/Week Comments No 0 (1 standard drink = 0.6 oz pure alcoho l) Sex Assigned at Date Recorded Female 08/17/2018 10:39 PM COMMERCIAL FOOD INSTRUCTOR documented as of this encounter Plan of Treatment Upcoming Encounters Date Type Specialty Care Team Description 05/19/2022 Office Visit ENT [facility] [address] [facility] [place] [phone] (Wo rk) 08/02/2022 Office Visit Neurology Yair Campos MD [address] [facility] [place], [place] [address] (Wo rk) documented as of this encounter Procedures Procedure Name Priority Date/Time Associated Diagnosis Comme nts CT ABDOMEN PELVIS Routine 08/16/2019 1:06 PM Kidney stone Resu lts for this W/O CONTRAST COMMERCIAL FOOD INSTRUCTOR procedure are i n the results section. documented in this encounter Results CT Abdomen pelvis w/o contrast (08/16/2019 1:06 PM COMMERCIAL FOOD INSTRUCTOR) Anatomical Region Laterality Modality Abdomen/Pelvis, SUBRAD CT BODY, UMP CT ABDOMEN PELVIS, Computed Tomography RAD CT Specimen (Source) Anatomical Location Collection Method / Collectio n Time Received Time / Laterality Volume Impressions 08/16/2019 3:00 PM COMMERCIAL FOOD INSTRUCTOR Impression: No evidence of hydronephrosis or radiopa que renal calculi identified.. I have personally reviewed the examinati on and initial interpretation and I agree with the findings. BRAXTON GARZON MD Narrative 08/16/2019 3:[address] of the Abdomen and Pelvis without contrast, 08/16/2019 1:06 PM. Comparison: CT 06/09/2019. History: Flank pain, stone disease suspe cted; Kidney stone. Technique: Axial images of the ??abdomen and pelvis were obtained without contrast. Coronal reconstruction s were provided. Images were reviewed in bone, lung, and soft tissue windows. Total DLP: 161.3 mGy*cm. Findings: Lower Chest: The visualized esophagus ap pears unremarkable. No suspicious lung nodules. No acute focal infiltrate, consolidation or pleural effusion.. Partially visualized calcifications of the coronary arteries. Heart size is within normal li mits. No pleural effusion. ?? Abdomen and Pelvis: Normal noncontrast a ppearance of the liver, gallbladder, spleen, adrenal glands and pancreas. No evidence of hydronephrosis. No radiop aque renal calculi identified. Normal course and caliber of the ureters . Urinary bladder is partially decompressed, limiting its evaluation. Normal caliber small and large bowel.. N o evidence of bowel obstruction. No free fluid. Abdominal vasculature un remarkable. No suspicious or enlarged mesenteric, retroperitoneal and pelvic lymph nodes. Bones and Soft Tissues: No suspicious os seous lesion. Stable increased soft tissue fullness just superior to th e pubic symphysis of doubtful clinical significance. Small fat-contain ing umbilical hernia. Procedure Note Braxton Garzon MD - 08/16/2019For matting of this note might be different from the original. CT of the Abdomen and Pelvis without con trast, 08/16/2019 1:06 PM. Comparison: CT 06/09/2019. History: Flank pain, stone disease suspe cted; Kidney stone. Technique: Axial images of the abdomen a nd pelvis were obtained without contrast. Coronal reconstruction s were provided. Images were reviewed in bone, lung, and soft tissue windows. Total DLP: 161.3 mGy*cm. Findings: Lower Chest: The visualized esophagus ap pears unremarkable. No suspicious lung nodules. No acute focal infiltrate, consolidation or pleural effusion.. Partially visualized calcifications of the coronary arteries. Heart size is within normal li mits. No pleural effusion. Abdomen and Pelvis: Normal noncontrast a ppearance of the liver, gallbladder, spleen, adrenal glands and pancreas. No evidence of hydronephrosis. No radiop aque renal calculi identified. Normal course and caliber of the ureters . Urinary bladder is partially decompressed, limiting its evaluation. Normal caliber small and large bowel.. N o evidence of bowel obstruction. No free fluid. Abdominal vasculature un remarkable. No suspicious or enlarged mesenteric, retroperitoneal and pelvic lymph nodes. Bones and Soft Tissues: No suspicious os seous lesion. Stable increased soft tissue fullness just superior to th e pubic symphysis of doubtful clinical significance. Small fat-contain ing umbilical hernia. Impression: No evidence of hydronephrosis or radiopa que renal calculi identified.. I have personally reviewed the examinati on and initial interpretation and I agree with the findings. BRAXTON GARZON MD Cecilia Aleman MD IMG CT ORDERABLES documented in this encounter Visit Diagnoses Diagnosis Kidney stone Calculus of kidney documented in this encounter Additional Health Concerns Assessment Noted Time PHQ-9 Depression Total Score: 8 01/07/2019 2:02 PM CDT documented as of this encounter Care Teams Belt Machine Operator Relationship Specialty Start Date End Date Krystin Christie PCP - General Nurse Practitioner 12/15/17 09/08/19 SAURABH Engel TROMMEL TENDER [address] [facility] [place] [id number] Tali Vilchis MD INTERNAL MEDICINE - 04/10/15 ENDOCRINOLOGY, DIABETES [address] [facility] [address] [place] [address] Anat Fuller MD Internal Medicine 04/10/1509/16 MD Renee [address] [facility] [address] [place], [place] [address] Janny Hutton Physician Dean Of Women Physician Dean Of Women 06/30/15 09/17/19 CARLA Mckeon [address] [facility] [address] [place] [address] Krystin Christie Assigned PCP 08/26/18 01/28/21 SAURABH Engel TROMMEL TENDER [address] [facility] [place] [address] Sonja Tinajero Pharmacist Pharmacist 12/24/18 09/17/19 Dev [facility] [address] [facility] [place] [address] Eduin Wilhelm Personal Advocate & 06/17/19 09/17/19 Liaison (PAL) Cecilia Aleman MD Urology 07/22/19 09/17/19 MD Lyly [address] [facility] [address] [place] [address] Joan Monroe MD Obstetrics 07/22/19 09/17/19 Thalia Engel MD [address] [id number] Vinita Linares, RN Registered Nurse 07/22/19 09/17/19 documented as of this encounter
--- OUTSIDE RECORDS SUMMARY | 2022-05-09 10:59 | XMS_ITS | Encounter Summary ---
:1955 Author Organization [place] Address [address] [facility] [place] [address] Care Team Providers Name Role Phone Tali Vilchis MD Unavailable Anat Fuller MD Unavailable [phone] Janny Hutton PA-C Unavailable [phone] Krystin Christie HAND LEATHER TRIMMER GRAILS WEB APPLICATION DEVELOPER Primary Care Provider [phone] Krystin Christie APRN GRAILS WEB APPLICATION DEVELOPER Unavailable [phone] Sonja Tinajero [facility] Unavailable [phone] Eduin Wilhelm Unavailable Unavailable Encounter Details Date Type Department Care Team Description 07/18/2019 Orders Only [facility] Joan Monroe, UTI (uri nary tract [facility] Andrew na Thalia Engel, infection) (Primary [address] MD Dx) South [address] [facility] [address] [place] [address] [place] [address] Social History Tobacco Use Types Packs/Day Years Used Date Smoking Tobacco: Never Smokeless Tobacco: Never Alcohol Use Standard Drinks/Week Comments No 0 (1 standard drink = 0.6 oz pure alcoho l) Sex Assigned at Date Recorded Female 08/17/2018 10:39 PM CLASSER documented as of this encounter Plan of Treatment Upcoming Encounters Date Type Specialty Care Team Description 05/19/2022 Office Visit ENT Dima Hidalgo M D [address] [facility] [place], [place] [address] (Wo rk) 08/02/2022 Office Visit Neurology Yair Campos MD [address] [place] [address] (Wo rk) documented as of this encounter Procedures Procedure Name Priority Date/Time Associated Diagnosis Comme nts URINE CULTURE Routine 07/18/2019 2:44 PM UTI (urinary tract Re sults for this CLASSER infection) procedure are i n the results section . documented in this encounter Results Urine Culture Aerobic Bacterial (07/18/2019 2:44 PM CLASSER) [facility] gist Method Time Signature Specimen Midstream INFECTIOUS Description Urine DISEASES DIAGNOSTIC LABORATORY Culture Micro No growth 07/20/2019 INFECTIOUS 7:34 AM CLASSER DISEASES DIAGNOSTIC LABORATORY Specimen (Source) Anatomical Collection Method Collection Time Re ceived Time Location / / Volume Laterality Examination of 07/18/2019 2:44 07/19/2019 8:23 midstream urine PM CLASSER AM CLASSER specimen (procedure) Thalia Monroe MD LAB - MICRO GENERAL ORDERABLES Performing Organization Address City/State/ZIP Code Phon e Number INFECTIOUS DISEASES [address] [place] [address] DIAGNOSTIC LABORATORY, [facility] INFECTIOUS DISEASES [address] [place] [address], [place] [facility] documented in this encounter Visit Diagnoses Diagnosis UTI (urinary tract infection) - Primary Urinary tract infection, site not specif ied documented in this encounter Additional Health Concerns Assessment Noted Time PHQ-9 Depression Total Score: 8 01/07/2019 2:02 PM CDT documented as of this encounter Care Teams Liquor Tester Relationship Specialty Start Date End Date Krystin Christie PCP - General Nurse Practitioner 12/15/17 09/08/19 SAURABH Engel GRAILS WEB APPLICATION DEVELOPER [address] [facility] [place] [address] Tali Vilchis MD INTERNAL MEDICINE - 04/10/15 ENDOCRINOLOGY, DIABETES [address] [place] [address] MMC & METABOLISM [address] [place] [address] Anat Fuller MD Internal Medicine 04/10/1509/16 MD Renee [address] [facility] [address] [place] [address] Janny Hutton Physician Central Sterilization Technician Physician Central Sterilization Technician 06/30/15 09/17/19 CARLA Mckeon 420 [facility] 803 [place] [address] Krystin Christie Assigned PCP 08/26/18 01/28/21 Maren, SAURABH GRAILS WEB APPLICATION DEVELOPER [address] [facility] [place] [address] Sonja Tinajero Pharmacist Pharmacist 12/24/18 09/17/19 Dev, [facility] [address] [facility] [place] [address] Eduin Wilhelm Personal Advocate & 06/17/19 09/17/19 Liaison (PAL) documented as of this encounter
--- OUTSIDE RECORDS SUMMARY | 2022-05-09 10:59 | XMS_ITS | Encounter Summary ---
:1955 Author Organization [place] Address [facility] [place] [address] Care Team Providers Name Role Phone Tali Vilchis MD Unavailable Anat Fuller MD Unavailable [phone] Janny Hutton PA-C Unavailable [phone] Krystin Christie APRN LAWN TECHNICIAN Primary Care Provider [phone] Krystin Christie APRN LAWN TECHNICIAN Unavailable [phone] Sonja Tinajero [facility] Unavailable [phone] Eduin Wilhelm Unavailable Unavailable Encounter Details Date Type Department Care Team Description 07/18/2019 Travel Social History Tobacco Use Types Packs/Day Years Used Date Smoking Tobacco: Never Smokeless Tobacco: Never Alcohol Use Standard Drinks/Week Comments No 0 (1 standard drink = 0.6 oz pure alcoho l) Sex Assigned at Date Recorded Female 08/17/2018 10:39 PM PROFESSOR OF EXERCISE SCIENCE documented as of this encounter Plan of Treatment Upcoming Encounters Date Type Specialty Care Team Description 05/19/2022 Office Visit ENT Dima Hidalgo M D [address] [place], [place] [address] (Wo rk) 08/02/2022 Office Visit Neurology Yair Campos MD [address] [facility] [place] [address] (Wo rk) documented as of this encounter Visit Diagnoses Not on filedocumented in this encounter Additional Health Concerns Assessment Noted Time PHQ-9 Depression Total Score: 8 01/07/2019 2:02 PM CDT documented as of this encounter Care Teams Soil Technologist Relationship Specialty Start Date End Date Krystin Christie PCP - General Nurse Practitioner 12/15/17 09/08/19 SAURABH Engel LAWN TECHNICIAN [address] [facility] [place] [address] Tali Vilchis MD INTERNAL MEDICINE - 04/10/15 ENDOCRINOLOGY, DIABETES [address] [facility]MC & METABOLISM [address] [place], [place] [address] Anat Fuller MD Internal Medicine 04/10/1509/16 MD Renee 516 [facility] [address] [place], [place] [address] Janny Hutton Physician Ship Fastener Physician Ship Fastener 06/30/15 09/17/19 CARLA Mckeon 420 [facility] [address]03 [place], [place] [address] Krystin Christie Assigned PCP 08/26/18 01/28/21 SAURABH Engel LAWN TECHNICIAN [address] [facility] [place] [address] Sonja Tinajero Pharmacist Pharmacist 12/24/18 09/17/19 Dev [facility] [address] [place] [address] [place] [id number] Eduin Wilhelm Personal Advocate & 06/17/19 09/17/19 Liaison (PAL) documented as of this encounter
--- OUTSIDE RECORDS SUMMARY | 2022-05-09 10:59 | XMS_ITS | Encounter Summary ---
:1955 Author Organization [place] Address [address] [facility] [place] [address] Care Team Providers Name Role Phone Tali Vilchis MD Unavailable Anat Fuller MD Unavailable [phone] Janny Hutton PA-C Unavailable [phone] Krystin Christie BACK UP SCAN COORDINATOR WIRE TESTER Primary Care Provider Krystin Christie APRN WIRE TESTER Unavailable [phone] Sonja Tinajero [facility] Unavailable [phone] Eduin Wilhelm Unavailable Unavailable Cecilia Aleman MD Unavailable [phone] Thalia Glass MD Unavailable [phone] Vinita Linares RN Unavailable Unavailable Reason for Visit Reason Onset Date Comments Pre Visit Planning - Done 08/09/2019 Encounter Details Date Type Department Care Team Description 08/09/2019 PRE VISIT [facility] and Cecilia Aleman Pre V isit Planning - Inst for Prostate and MD Lyly Done Urologic Cancers [address] [place] [address] [facility] [address] [place] [address] [phone] Social History Tobacco Use Types Packs/Day Years Used Date Smoking Tobacco: Never Smokeless Tobacco: Never Alcohol Use Standard Drinks/Week Comments No 0 (1 standard drink = 0.6 oz pure alcoho l) Sex Assigned at Date Recorded Female 08/17/2018 10:39 PM SAP HANA DEVELOPER documented as of this encounter Plan of Treatment Upcoming Encounters Date Type Specialty Care Team Description 05/19/2022 Office Visit ENT Dima Hidalgo M D [address] [facility] [address] [place], [place] [address] (Wo rk) 08/02/2022 Office Visit Neurology Yair Campos MD [address] [place] [address] (Wo rk) documented as of this encounter Visit Diagnoses Not on filedocumented in this encounter Additional Health Concerns Assessment Noted Time PHQ-9 Depression Total Score: 8 01/07/2019 2:02 PM CDT documented as of this encounter Care Teams Senior Controls Engineer Relationship Specialty Start Date End Date Krystin Christie PCP - General Nurse Practitioner 12/15/17 09/08/19 SAURABH Engel WIRE TESTER [address] [facility] [place] [address] Tali Vilchis MD INTERNAL MEDICINE - 04/10/15 ENDOCRINOLOGY, DIABETES [address] [facility] [address] [address] [place] [address] Anat Fuller MD Internal Medicine 04/10/1509/16 MD Renee 6 [facility] [address] [place] [address] Janny Hutton Physician Trial Judge Physician Trial Judge 06/30/15 09/17/19 CARLA Mckeon 420 [facility] [address] [place], [place] [address] Krystin Christie Assigned PCP 08/26/18 01/28/21 SAURABH Engel WIRE TESTER [address] [facility] [place] [address] Sonja Tinajero Pharmacist Pharmacist 12/24/18 09/17/19 Dev, [facility] [address] [facility] [place] [address] Eduin Wilhelm Personal Advocate & 06/17/19 09/17/19 Liaison (PAL) Cecilia Aleman MD Urology 07/22/19 09/17/19 MD Lyly 420 [facility] 394 [place] [address] Joan Monroe MD Obstetrics 07/22/19 09/17/19 Thalia Engel MD [address] [place] [address] Vinita Linares RN Registered Nurse 07/22/19 09/17/19 documented as of this encounter
--- OUTSIDE RECORDS SUMMARY | 2022-05-09 10:59 | XMS_ITS | Encounter Summary ---
:1955 Author Organization [place] Address [address] [facility] [place] [address] Care Team Providers Name Role Phone Tali Vilchis MD Unavailable Anat Fuller MD Unavailable [phone] Janny Hutton PA-C Unavailable [phone] Krystin Christie SUPERVISOR GROVE GENER[employer] MILLING SUPERINTENDENT Primary Care Provider [phone] Krystin Christie APRN GENERAL MILLING SUPERINTENDENT Unavailable [phone] Sonja Tinajero [facility] Unavailable [phone] Eduin Wilhelm Unavailable Unavailable Encounter Details Date Type Department Care Team Description 07/18/2019 Telephone [facility] for [facility] Mando rThalia Women Neetu Engel MD [address] [facility] [address] [place] [address] [place] [address] (Wo rk) Social History Tobacco Use Types Packs/Day Years Used Date Smoking Tobacco: Never Smokeless Tobacco: Never Alcohol Use Standard Drinks/Week Comments No 0 (1 standard drink = 0.6 oz pure alcoho l) Sex Assigned at Date Recorded Female 08/17/2018 10:39 PM PATIENT SUPPORT SPECIALIST documented as of this encounter Plan of Treatment Upcoming Encounters Date Type Specialty Care Team Description 05/19/2022 Office Visit ENT Dima Hidalgo M D [address] [place], [place] [address] (Wo rk) 08/02/2022 Office Visit Neurology Yair Campos MD [address] [facility] [place] [address] (Wo rk) documented as of this encounter Visit Diagnoses Diagnosis UTI (urinary tract infection) - Primary Urinary tract infection, site not specif ied documented in this encounter Additional Health Concerns Assessment Noted Time PHQ-9 Depression Total Score: 8 01/07/2019 2:02 PM CDT documented as of this encounter Care Teams Rental Clerk Relationship Specialty Start Date End Date Krystin Christie PCP - General Nurse Practitioner 12/15/17 09/08/19 SAURABH Engel GENERAL MILLING SUPERINTENDENT [address] [facility] [place] [id number] Tali Vilchis MD INTERNAL MEDICINE - 04/10/15 ENDOCRINOLOGY, DIABETES [address] [facility] & METABOLISM [address] [place] [address] Anat Fuller MD Internal Medicine 04/10/1509/16 MD Renee [address] [facility] [address] [place] [address] Janny Hutton Physician Inspection Supervisor Physician Inspection Supervisor 06/30/15 09/17/19 CARLA Mckeon 420 [facility] 803 [place] [address] Krystin Christie Assigned PCP 08/26/18 01/28/21 SAURABH Engel GENERAL MILLING SUPERINTENDENT [address] [facility] [place] [id number] Sonja Tinajero Pharmacist Pharmacist 12/24/18 09/17/19 Dev [facility] 14[address] [facility] [place] [phone] Eduin Wilhelm Personal Advocate & 06/17/19 09/17/19 Liaison (PAL) documented as of this encounter
--- OUTSIDE RECORDS SUMMARY | 2022-05-09 10:59 | XMS_ITS | Encounter Summary ---
:1955 Author Organization [place] Address [facility]0 [facility] [place] [address] Care Team Providers Name Role Phone Tali Vilchis MD Unavailable Anat Fuller MD Unavailable [phone] Janny Hutton PA-C Unavailable [phone] Krystin Christie TRAUMA COORDINATOR LABELING ASSOCIATE Primary Care Provider [phone] PratikKrystin newby APRN LABELING ASSOCIATE Unavailable [phone] Sonja Tinajero [facility] Unavailable [phone] Eduin Wilhelm Unavailable Unavailable Cecilia Aleman MD Unavailable [phone] Thalia Glass MD Unavailable [phone] Vinita Linares RN Unavailable Unavailable Reason for Referral Diagnostic Imaging CT Scan (Routine) - Closed Specialty Diagnoses / Procedures Referred By Contact Refer red To Contact Diagnoses Kidney stone Cecilia Aleman, Procedures CT Abdomen pelvis w/o contrast 420 [facility] [address] [place], [place] [address] Referral ID Status Reason Start Date Expiration Date Visits Requ ested Visits Authorized [id number] Closed 08/12/2019 08/11/2020 1 1 CCO STRIPPING MACHINE OPERATOR Reason for Visit Reason Onset Date Comments Pre Visit Planning - Done 08/12/2019 New-Stone Pt Encounter Details Date Type Department Care Team Description 08/12/2019 PRE VISIT Health Urology and Cecilia Aleman Pre V isit Planning - Inst for Prostate and MD Lyly Done (New-Stone Pt) Urologic Cancers 420 [facility] [address] 9[address] [facility] [address] [place] [address] [phone] Social History Tobacco Use Types Packs/Day Years Used Date Smoking Tobacco: Never Smokeless Tobacco: Never Alcohol Use Standard Drinks/Week Comments No 0 (1 standard drink = 0.6 oz pure alcoho l) Sex Assigned at Date Recorded Female 08/17/2018 10:39 PM TOBACCO STRIPPING MACHINE OPERATOR documented as of this encounter Miscellaneous Notes Telephone Encounter - Thomas Linares EMT - 08/12/2019 8:10 AM CST Chief Complaint : New-From Dr. Barry Hx/Sx: Kidney Stones Records/Orders: CT Requested Pt Contacted: n/a At Rooming: Normal CCO STRIPPING MACHINE OPERATOR documented in this encounter Plan of Treatment Upcoming Encounters Date Type Specialty Care Team Description 05/19/2022 Office Visit ENT Dima Hidalgo M D [address] [place], [place] [address] (Wo rk) 08/02/2022 Office Visit Neurology Yair Campos MD [address] [place] [address] (Wo rk) documented as of this encounter Results CT Abdomen pelvis w/o contrast (08/16/2019 1:06 PM TOBACCO STRIPPING MACHINE OPERATOR) Anatomical Region Laterality Modality Abdomen/Pelvis, SUBRAD CT BODY, UMP CT ABDOMEN PELVIS, Computed Tomography RAD CT Specimen (Source) Anatomical Location Collection Method / Collectio n Time Received Time / Laterality Volume Impressions 08/16/2019 3:00 PM TOBACCO STRIPPING MACHINE OPERATOR Impression: No evidence of hydronephrosis or radiopa que renal calculi identified.. I have personally reviewed the examinati on and initial interpretation and I agree with the findings. BRAXTON AGRZON MD Narrative 08/16/2019 3:00 PM TOBACCO STRIPPING MACHINE OPERATOR CT of the Abdomen and Pelvis without [...] this encounter Visit Diagnoses Diagnosis Kidney stone - Primary Calculus of kidney Kidney stone Calculus of kidney documented in this encounter Additional Health Concerns Assessment Noted Time PHQ-9 Depression Total Score: 8 01/07/2019 2:02 PM CDT documented as of this encounter Care Teams Assistant Executive Housekeeper Relationship Specialty Start Date End Date Krystin Christie PCP - General Nurse Practitioner 12/15/17 09/08/19 SAURABH Engel [facility] [address] [facility] [address] [place] [phone] Tali Vilchis MD INTERNAL MEDICINE - 04/10/15 ENDOCRINOLOGY, DIABETES 420 [facility] METABOLISM [address] [place], [place] [address] Anat Fuller MD Internal Medicine 04/10/1509/16 MD Renee 516 [facility] [address] [place], [place] [address] Janny Hutton Physician Trauma Coordinator Physician Trauma Coordinator 06/30/15 09/17/19 CARLA Mckeon 420 [facility] 803 [place], [place] [address] Krystin Christie Assigned PCP 08/26/18 01/28/21 SAURABH Engel LABELING ASSOCIATE [address] [facility] [address] [place], [place] [phone] Sonja Tinajero Pharmacist Pharmacist 12/24/18 09/17/19 Dev, [facility] [address] [facility] [address] Eduin Wilhelm Personal Advocate & 06/17/19 09/17/19 Liaison (PAL) Cecilia Aleman MD Urology 07/22/19 09/17/19 MD Lyly [address] [facility] [address] [place] [address] Joan Monroe MD Obstetrics 07/22/19 09/17/19 Thalia Engel MD [address] [facility] 100 [place] [address] Vinita Linares, MIKE Registered Nurse 07/22/19 09/17/19 documented as of this encounter
--- OUTSIDE RECORDS SUMMARY | 2022-05-09 10:59 | XMS_ITS | Encounter Summary ---
:1955 Author Organization [place] Address [facility] [place] [address] Care Team Providers Name Role Phone Tali Vilchis MD Unavailable Anat Fuller MD Unavailable [phone] Janny Hutton PA-C Unavailable [phone] Krystin Christie HURL SHAKER AUTOMATIC SEAMER Primary Care Provider [phone] Krystin Christie APRN AUTOMATIC SEAMER Unavailable [phone] Sonja Tinajero [facility] Unavailable [phone] Eduin Wilhelm Unavailable Unavailable Reason for Referral Consultation (Routine) - Closed Specialty Diagnoses / Procedures Referred By Contact Refer red To Contact Diagnoses Nephrolithiasis Simone Glass [facility] MD Maren [facility] and [address] [place] [address] [facility] 100 [address] [place] [address] [place] [address] Phone: Fax: Referral ID Status Reason Start Date Expiration Date Visits Requ ested Visits Authorized [id number] Closed 07/18/2019 07/17/2020 1 1 R ENERGY INSTALLATION MANAGER Reason for Visit Reason Comments Physical c/o lower pelvic pain and sp ecks in urine, possible blood for 2-3 months Encounter Details Date Type Department Care Team Description 07/18/2019 Office Visit [facility] Deepa Glass for gynecological examination without abnormal finding (Primary Dx); [facility] Simone Pelvic pain ; Benny Engel MD Nephrolithiasis [address] [facility] 6511 [facility] 100 [address] [place] [address] [place] [phone] Social History Tobacco Use Types Packs/Day Years Used Date Smoking Tobacco: Never Smokeless Tobacco: Never Alcohol Use Standard Drinks/Week Comments No 0 (1 standard drink = 0.6 oz pure alcoho l) Sex Assigned at Date Recorded Female 08/17/2018 10:39 PM SOLAR ENERGY INSTALLATION MANAGER documented as of this encounter Last Filed Vital Signs Vital Sign Reading Time Taken Comments Blood Pressure 106/66 07/18/2019 2:51 PM SOLAR ENERGY INSTALLATION MANAGER Pulse 80 07/18/2019 2:51 PM SOLAR ENERGY INSTALLATION MANAGER Temperature - - Respiratory Rate - - Oxygen Saturation - - Inhaled Oxygen Concentration - - Weight 90.3 kg (199 lb) 07/18/2019 2:51 PM SOLAR ENERGY INSTALLATION MANAGER Height 157.5 cm (5' 2) 07/18/2019 2:51 PM SOLAR ENERGY INSTALLATION MANAGER Body Mass Index 36.4 07/18/2019 2:51 PM SOLAR ENERGY INSTALLATION MANAGER documented in this encounter Progress Notes Simone Glass MD - 07/18/2019 2:50 PM CST Becki is a 64 year old No obstetric history on file. female who presents for annual exam. Besides routine health maintenance, she would like to discuss abnormal urine. HPI: The patient's PCP is Krystin Christie APRN CNP. Patient with history of kidney stones and sister with bladder cancer. Referral sent to urology. GYNECOLOGIC HISTORY: No LMP recorded. Patient is postmenopausal. Her current contraception method is: not sexually active. She reports that she has never smoked. She has never used smokeless tobacco. Patient is not sexually active. STD testing offered? Declined Last PHQ-9 score on record = PHQ-9 SCORE 01/07/2019 PHQ-9 Total Score 8 PHQ-9 Total Score - Last GAD7 score on record = KIERRA-7 SCORE 07/18/2019 Total Score 0 Total Score BEH Adult - Alcohol Score = HEALTH MAINTENANCE: Cholesterol: Recent Labs Lab Test 08/16/18 1731 CHOL 207* HDL 46* LDL 135* TRIG 130 FBS 181 (07/04/19) TSH Date Value Ref Range Status 05/03/2019 6.70 (H) 0.40 - 4.00 mU/L Final Last Mammo: 08/17/18, Result: Normal, Next Mammo: 08/2019 Pap: Lab Results Component Value Date PAP NIL 12/21/2015 PAP NIL 08/22/2013 Colonoscopy: Approx 1 year ago at [facility], Result: Normal, Next Colonoscopy: Pt unsure Dexa: NA Health maintenance updated: no, due for pap/HPV HISTORY: OB History Para Term AB Living 1 1 1 0 0 1 SAB TAB Ectopic Multiple Live Births 0 0 0 0 1 # Outcome Date GA Lbr Je/2nd Weight Sex Delivery Anes PTL Lv 1 Term ROBBIN Patient Active Problem List Diagnosis ? ? DM type 2 (diabetes mellitus, type 2); BP Goal <140/90 ??? Subclinical hypothyroidism ??? Urticaria ??? Asthma ??? NAFLD (nonalcoholic fatty liver disease) ??? Morbid obesity, unspecified obesity type (H) ??? History of corticosteroid therapy ??? Elevated liver enzymes ??? Depression ??? Weakness ??? Generalized weakness ??? Advance care planning ??? Diabetic gastroparesis (H) Past Surgical History: Procedure Laterality Date ??? COLONOSCOPY age 52 OK results ??? EYE SURGERY ??? IR LIVER BIOPSY PERCUTANEOUS 07/04/2019 ??? PERCUTANEOUS BIOPSY LIVER Right 07/04/2019 Procedure: Percutaneous Liver Biopsy; Surgeon: Wali Hare PA-C; [facility] Social History Tobacco Use ??? Smoking status: Never Smoker ??? Smokeless tobacco: Never Used Substance Use Topics ??? Alcohol use: No Alcohol/week: 0.0 standard drinks Problem (# of Occurrences) Relation (Name,Age of Onset) Anxiety Disorder (1) Daughter (mdra) Bladder Cancer (1) Sister (Sherine) Cancer (1) Mother Cerebrovascular Disease (1) Mother Dementia (5) Mother, Maternal Aunt, Maternal Aunt, Maternal Aunt, Maternal Aunt Depression (4) Daughter (26mdra), Mother, Father, Maternal Grandmother Diabetes (2) Mother, Father Glaucoma (1) Mother Hypertension (2) Mother, Father Liver Cancer (1) Mother Lung Cancer (1) Mother No Known Problems (7) Maternal Grandfather, Paternal Grandmother, Paternal Grandfather, Brother (Cornell), Brother (Darvin), Brother (Booker), Other Other - See Comments (1) Mother: spine cancer Polycystic ovary syndrome (1) Daughter (26Kamdra) Thyroid Disease (1) Daughter (26Kamdra): patric thyroiditis Negative family history of: Macular Degeneration Current Outpatient Medications Medication Sig ??? albuterol (PROAIR HFA/PROVENTIL HFA/VENTOLIN HFA) 108 (90 Base) MCG/ACT inhaler Inhale 2 puffs into the lungs every 6 hours as needed ??? blood glucose (ACCU-CHEK ANNIE PLUS) test strip 1 strip by In Vitro route daily ??? blood glucose monitoring (Donews CONTOUR NEXT) test strip Use to test blood sugar 2 times daily or as directed. ??? blood glucose monitoring (JAYLENE MICROLET) lancets Use to test blood sugar 2 times daily or as directed. ??? busPIRone (BUSPAR) 10 MG tablet Take 1 tablet (10 mg) by mouth 2 times daily ??? glipiZIDE (GLUCOTROL XL) 5 MG 24 hr tablet Take 2 tablets (10 mg) by mouth daily ??? ipratropium - albuterol 0.5 mg/2.5 mg/3 mL (DUONEB) 0.5-2.5 (3) MG/3ML neb solution Take 1 vial (3 mLs) by nebulization every 6 hours as needed for shortness of breath / dyspnea or wheezing ??? levothyroxine (SYNTHROID/LEVOTHROID) 50 MCG tablet Take 1 tablet (50 mcg) by mouth daily ??? metFORMIN (GLUCOPHAGE-XR) 500 MG 24 hr tablet Take 3 tablets (1,500 mg) by mouth daily (with dinner) TAKE 4 TABLETS(2000 MG) BY MOUTH DAILY (Patient taking differently: Take 1,500 mg by mouth daily(with dinner) ) ??? order for DME Equipment being ordered: orthopedic Diabetic shoes ??? Vitamin D, Cholecalciferol, 1000 units TABS Take 1,000 Units by mouth daily ??? diclofenac (VOLTAREN) 1 % topical gel Place 4 g onto the skin 4 times daily as needed for moderate pain (Patient not taking: Reported on 07/18/2019) ??? EPINEPHrine (EPIPEN 2-KITTY) 0.3 MG/0.3ML injection Inject 0.3 mg into the muscle once as needed. No current facility-administered medications for this visit. Allergies Allergen Reactions ??? Cipro [Quinolones] Itching and Difficulty breathing ??? Ciprofloxacin Itching and Shortness Of Breath ??? Codeine Shortness Of Breath Other reaction(s): Syncope ??? Codeine Sulfate Other (See Comments) Blacked out ??? Vicodin [Hydrocodone-Acetaminophen] Itching and Difficulty breathing ??? Darvocet [Propoxyphene N-Apap] Itching ??? Pioglitazone Ariton sick Past medical, surgical, social and family histories were reviewed and updated in [facility]. ROS: 12 point review of systems negative other than symptoms noted below or in the HPI. Constitutional: Fatigue Head: Ringing Gastrointestinal: Abdominal Pain and Bloating Musculoskeletal: Joint Pain Endocrine: Cold Intolerance and Loss of Hair No urinary frequency or dysuria, bladder or kidney problems EXAM: BP 106/66 Pulse 80 Ht 1.575 m (5' 2) Wt 90.3 kg (199 lb) BMI 36.40 kg/m?? BMI: Body mass index is 36.4 kg/m??. PHYSICAL EXAM: Constitutional: Appearance: Well nourished, well developed, alert, in no acute distress Neck: Lymph Nodes: No lymphadenopathy present Thyroid: Gland size normal, nontender, no nodules or masses present on palpation Chest: Respiratory Effort: Breathing unlabored Cardiovascular: Heart: Auscultation: Regular rate, normal rhythm, no murmurs present Breasts: Inspection of Breasts: No lymphadenopathy present., Palpation of Breasts and Axillae: No masses present on palpation, no breast tenderness. and Axillary Lymph Nodes: No lymphadenopathy present. Gastrointestinal: Abdominal Examination: Abdomen nontender to palpation, tone normal without rigidity or guarding, nomasses present, umbilicus without lesions Liver and Spleen: No hepatomegaly present, liver nontender to palpation Hernias: No hernias present Lymphatic: Lymph Nodes: No other lymphadenopathy present Skin: General Inspection: No rashes present, no lesions present, no areas of discoloration Neurologic: Mental Status: Oriented X3. Normal strength and tone, sensory exam grossly normal, mentation intact and speech normal. Psychiatric: Mentation appears normal and affect normal/bright. Pelvic Exam: External Genitalia: Normal appearance for age, no discharge present, no tenderness present, no inflammatory lesions present, color normal Vagina: Normal vaginal vault without central or paravaginal defects, no discharge present, no inflammatory lesions present, no masses present Bladder: Nontender to palpation Urethra: Urethral Body: Urethra palpation normal, urethra structural support normal Urethral Meatus: No erythema or lesions present Cervix: Appearance healthy, no lesions present, nontender to palpation, no bleeding present Uterus: Uterus: firm, normal sized and nontender, Adnexa: No adnexal tenderness present, no adnexal masses present Perineum: Perineum within normal limits, no evidence of trauma, no rashes or skin lesions present Anus: Anus within normal limits, no hemorrhoids present Inguinal Lymph Nodes: No lymphadenopathy present Pubic Hair: Normal pubic hair distribution for age Genitalia and Groin: No rashes present, no lesions present, no areas of discoloration, no masses present COUNSELING: Reviewed preventive health counseling, as reflected in patient instructions BMI: Body mass index is 36.4 kg/m??. ASSESSMENT: 64 year old female with satisfactory annual exam. ICD-10-CM 1. Encounter for gynecological examination without abnormal finding Z01.419 2. Pelvic pain R10.2 UA with Microscopic PLAN: 1. Mammogram aug 2. Pap today 3. Urine cytology 4. Urology referral sent Simone Monroe MD R ENERGY INSTALLATION MANAGER documented in this encounter Miscellaneous Notes Result Encounter Note - Joanne Garcias RN - 07/18/2019 2:50 PM SOLAR ENERGY INSTALLATION MANAGER Awaiting HPV. Joanne Garcias CARDIOGRAPH OPERATOR, Pap Tracking R ENERGY INSTALLATION MANAGER documented in this encounter Plan of Treatment Upcoming Encounters Date Type Specialty Care Team Description 05/19/2022 [facility] [facility] [place] [address] (Wo rk) 08/02/2022 Office Visit Neurology Yair Campos MD [address] [place] [address] (Wo rk) Scheduled Referrals Name Type Priority Associated Diagnoses Order S chedu UROLOGY ADULT REFERRAL Referral Routine Nephrolithiasis Or dered: 07/18/2019 documented as of this encounter Procedures Procedure Name Priority Date/Time Associated Diagnosis Comme nts HPV HIGH RISK TYPES Routine 07/18/2019 3:00 Encounter for Resu lts for this DNA CERVICAL PM SOLAR ENERGY INSTALLATION MANAGER gynecological procedure are in examination without the resu lts abnormal finding section. PAP IMAGED THIN Routine 07/18/2019 2:59 Encounter for Results for this LAYER SCREEN PM SOLAR ENERGY INSTALLATION MANAGER gynecological procedure are in examination without the resu lts abnormal finding section. CYTOLOGY NON PREDATOR CONTROL TRAPPER Routine 07/18/2019 2:59 Nephrolithiasis Resul ts for this PM SOLAR ENERGY INSTALLATION MANAGER procedure are i n the results section. UA WITH MICROSCOPIC Routine 07/18/2019 2:44 Pelvic pain Resul ts for this PM SOLAR ENERGY INSTALLATION MANAGER procedure are i n the results section. documented in this encounter Results HPV High Risk Types DNA Cervical (07/18/2019 3:00 PM SOLAR ENERGY INSTALLATION MANAGER) [facility] gist Method Time Signature HPV Source SurePath 07/18/2019 [facility] 3:00 PM SOLAR ENERGY INSTALLATION MANAGER [facility] HPV 16 DNA Negative NEG^Negat 07/24/2019 [facility] 12:44 PM SOLAR ENERGY INSTALLATION MANAGER [facility] HPV 18 DNA Negative NEG^Negat 07/24/2019 [facility] 12:44 PM [facility] Other HR HPV Negative NEG^Negat 07/24/2019 [facility] 12:44 PM SOLAR ENERGY INSTALLATION MANAGER [facility] Final This 07/24/2019 [facility] patient's 12:44 PM SOLAR ENERGY INSTALLATION MANAGER [facility] sample is [facility] negative for CAMPUS HPV DNA. Comment: This test was developed and its performa nce characteristics determined by the [facility], [facility]. It has not been cleared or approved by the FDA. The laboratory is regulated under CLIA as qualified to perform high-compl exity testing. This test is used for clinical purposes. It should not be rega rded as investigational or for research. (Note) METHODOLOGY: ??The Valentina swapna 4800 syst em uses automated extraction, simultaneous amplification of HPV (L1 re gion) and beta-globin, ?? followed by ??real time detection of flu orescent labeled HPV and beta globin using specific oligonucleotide pr obes . The test specifically identifies types HPV 16 DNA and HPV 18 D NA while concurrently detecting the rest of the high risk type s (31, 33, 35, 39, 45, 51, 52, 56, 58, 59, 66 or 68). COMMENTS: ??This test is not intended fo r use as a screening device for women under age 30 with normal cervi sherif cytology. ??Results should be correlated with cytologic and histolo gic findings. Close clinical followup is recommended. Specimen Description Cervical Cells 07/18/2019 3:0 0 PM SOLAR ENERGY INSTALLATION MANAGER [facility] Comment: [id number] Specimen Anatomical Collection Method Collection Time Receive d Time (Source) Location / / Volume Laterality Cervical Cells 07/18/2019 3:00 PM 020 3:28 SOLAR ENERGY INSTALLATION MANAGER PM SOLAR ENERGY INSTALLATION MANAGER Simone Monroe MD LAB - BLOOD ORDERABL ES Performing Organization Address City/State/ZIP Code Phon e Number [id number] [place] [address] [address] [place] [address] [facility] 100 Cytology non drafter structural (07/18/2019 2:59 PM SOLAR ENERGY INSTALLATION MANAGER) Component Value Ref Test Analysis Performed At [facility] Range Method Time Signature Copath Report Patient Name: BECKI RIDLEY MR#: [id number] Specimen #: [id number] Collected: 07/18/2019 Received: 07/19/2019 Reported: 07/22/2019 11:19 Ordering Phy(s): SIMONE MONROE For improved result formatting, select 'View Enhanced Report Format' under Linked Documents section. SPECIMEN/STAIN PROCESS: Urine, voided ? Pap-Cyto x 1 ---- CYTOLOGIC INTERPRETATION: Urine, voided: ?? Negative for High-Grade Urothelial Carcin nisha Specimen Adequacy: Satisfactory for evaluation. I have personally reviewed all specimens and/or slides, incl uding the listed special stains, and used them with my medical judgement to determine or confirm the final diagnosis. Electronically signed out by: Joanne Carr M.D. CLINICAL HISTORY: Family history of bladder cancer. , GROSS: Urine, voided: ??Received 30 ml of yellow, slightly cloudy fluid, processed as 1 Pap stained Autocyte.. CPT Codes: A: 04251-[id number] COLLECTION SITE: Client: ??[facility] Location: ??[place] (S) The technical component of this testing was completed at the [facility], with the professional compo nent performed at the [facility], [address] [place] [phone] ) Specimen (Source) Anatomical Collection Method Collection Time Re ceived Time Location / / Volume Laterality Cytologic 07/18/2019 2:59 07/19/2019 9 :03 material PM SOLAR ENERGY INSTALLATION MANAGER AM SOLAR ENERGY INSTALLATION MANAGER (specimen) Simone Monroe MD LAB - OPTIME CLINICA L SPECIMEN Performing Organization Address City/State/ZIP Code Phon e Number [place] Pap imaged thin layer screen with HPV - recommended age 30 - 65 (07/18/2019 2:59 PM SOLAR ENERGY INSTALLATION MANAGER) Component Value Ref Test Analysis Performed At [facility] Range Method Time Signature PAP NIL [place] Copath Report [place] Patient Name: BECKI RIDLEY MR#: [id number] Specimen #: [id number] Collected: 07/18/2019 Received: 07/19/2019 Reported: 07/22/2019 14:55 Ordering Phy(s): SIMONE MONREO For improved result formatting, select 'View Enhanced Report Format' under Linked Documents section. SPECIMEN/STAIN PROCESS: Pap imaged thin layer prep screening (Surepath, FocalPoint w ith guided screening) ? Pap-Cyto x 1, HPV ordered x 1 SOURCE: Cervical, endocervical ---- Pap imaged thin layer prep screening (Surepath, FocalPoint with guided screening) SPECIMEN ADEQUACY: Satisfactory for evaluation. -Transformation zone component present. CYTOLOGIC INTERPRETATION: Negative for intraepithelial lesion or malignancy Electronically signed out by: CHEMA Stephens (ASCP) CLINICAL HISTORY: Post Menopausal, A previous normal pap Date of Last Pap: 12/21/2015, Papanicolaou Test Limitations: ??Cervical cytology is a sc reening test with limited sensitivity; regular screening is critical for cancer prevention; Pap tests are p rimarily effective for the diagnosis/prevention of squamous cell carcinoma, not adenocarcinomas or other cancer s. COLLECTION SITE: Client: ??[facility] Location: [place] (S) The technical component of this testing was completed at the [facility], with the professional compo nent performed at the [facility], [address] [place] [phone] ([phone]) Specimen (Source) Anatomical Collection Method Collection Time Re ceived Time Location / / Volume Laterality Cytologic 07/18/2019 2:59 07/19/2019 9 :40 material PM SOLAR ENERGY INSTALLATION MANAGER AM SOLAR ENERGY INSTALLATION MANAGER (specimen) Simone Monroe MD LAB - OPTIME CLINICA L SPECIMEN Performing Organization Address City/State/ZIP Code Phon e Number [place] (ABNORMAL) UA with Microscopic (07/18/2019 2:44 PM SOLAR ENERGY INSTALLATION MANAGER) [facility] gist Method Time Signature Color Urine Yellow 07/18/2019 [place] 2:54 PM SOLAR ENERGY INSTALLATION MANAGER [facility] Appearance Urine Slightly 07/18/2019 [place] Cloudy 2:54 PM SOLAR ENERGY INSTALLATION MANAGER [facility] Glucose Urine Negative NEG^Negat 07/18/2019 [place] jeromy mg/dL 2:54 PM SOLAR ENERGY INSTALLATION MANAGER [facility] Bilirubin Urine Negative NEG^Negat 07/18/2019 [place] jeromy 2:54 PM SOLAR ENERGY INSTALLATION MANAGER [facility] Ketones Urine 1+ (A) NEG^Negat 07/18/2019 [place] jeromy mg/dL 2:54 PM SOLAR ENERGY INSTALLATION MANAGER [facility] Specific [place] 1.025 1.003 - 07/18/2019 [place] Urine 1.035 2:54 PM SOLAR ENERGY INSTALLATION MANAGER [facility] pH Urine 5.5 5.0 - 7.0 07/18/2019 [place] pH 2:54 PM SOLAR ENERGY INSTALLATION MANAGER [facility] Protein Albumin Negative NEG^Negat 07/18/2019 [place] Urine jeromy mg/dL 2:54 PM SOLAR ENERGY INSTALLATION MANAGER [facility] Urobilinogen 0.2 0.2 - 1.0 07/18/2019 [place] Urine EU/dL 2:54 PM SOLAR ENERGY INSTALLATION MANAGER [facility] Nitrite Urine Negative NEG^Negat 07/18/2019 [place] jeromy 2:54 PM SOLAR ENERGY INSTALLATION MANAGER [facility] Blood Urine Negative NEG^Negat 07/18/2019 [place] jeromy 2:54 PM SOLAR ENERGY INSTALLATION MANAGER [facility] Leukocyte Negative NEG^Negat 07/18/2019 [place] Esterase Urine jeromy 2:54 PM SOLAR ENERGY INSTALLATION MANAGER [facility] Source Midstream 07/18/2019 [place] Urine 2:46 PM SOLAR ENERGY INSTALLATION MANAGER [facility] WBC Urine 0 - 5 OTO5^0 - 07/18/2019 [place] 5 /HPF 2:54 PM SOLAR ENERGY INSTALLATION MANAGER [facility] RBC Urine O - 2 OTO2^O - 07/18/2019 [place] 2 /HPF 2:54 PM SOLAR ENERGY INSTALLATION MANAGER [facility] Squamous Moderate (A) FEW^Few 07/18/2019 [place] Epithelial /LPF /LPF 2:54 PM SOLAR ENERGY INSTALLATION MANAGER [facility] Bacteria Urine Moderate (A) NEG^Negat 07/18/2019 [place] jeromy /HPF 2:54 PM SOLAR ENERGY INSTALLATION MANAGER [facility] Specimen (Source) Anatomical Collection Method Collection Time Re ceived Time Location / / Volume Laterality Examination of 07/18/2019 2:44 07/18/2019 2:45 midstream urine PM SOLAR ENERGY INSTALLATION MANAGER PM SOLAR ENERGY INSTALLATION MANAGER specimen (procedure) Simone Monroe MD LAB - URINE ORDERABL ES Performing Organization Address City/State/ZIP Code Phon e Number [facility] [address] [place] [address] [facility] 100 documented in this encounter Visit Diagnoses Diagnosis Encounter for gynecological examination without abnormal finding - Primary Routine gynecological examination Pelvic pain Unspecified symptom associated with fema le genital organs Nephrolithiasis Calculus of kidney documented in this encounter Additional Health Concerns Assessment Noted Time PHQ-9 Depression Total Score: 8 01/07/2019 2:02 PM CDT documented as of this encounter Care Teams Telegraph Plant Maintainer Relationship Specialty Start Date End Date Krystin Christie PCP - General Nurse Practitioner 12/15/17 09/08/19 SAURABH Engel AUTOMATIC SEAMER [address] [facility] [place] [address] Tali Vilchis MD INTERNAL MEDICINE - 04/10/15 ENDOCRINOLOGY, DIABETES [address] [facility] & METABOLISM [address] [place] [address] Anat Fuller MD Internal Medicine 04/10/1509/16 MD Renee [address] [facility] [address] [place] [address] Janny Hutton Physician Comb Setter Physician Comb Setter 06/30/15 09/17/19 CARLA Mckeon [address] [facility] [address] [place] [address] Krystin Christie Assigned PCP 08/26/18 01/28/21 SAURABH Engel AUTOMATIC SEAMER [address] [facility] [place] [address] Sonja Tinajero Pharmacist Pharmacist 12/24/18 09/17/19 Dev [facility] [address] [facility] [place] [id number] Eduin Wilhelm Personal Advocate & 06/17/19 09/17/19 Liaison (PAL) documented as of this encounter
--- OUTSIDE RECORDS SUMMARY | 2022-05-09 10:59 | XMS_ITS | Encounter Summary ---
:1955 Author Organization [place] Address [address] [facility] [place] [address] Care Team Providers Name Role Phone Krystin Christie APRN, CNP Unavailable [phone] Krystin Christie APRN, CNP Primary Care Provider Deyanira Stewart [facility] Unavailable Nadira Nichols RN Unavailable Unavailable Frank Argueta Unavailable Unavailable Reason for Visit Reason Onset Date Comments Medication Question 09/23/2019 Glipizide ER 5mg tab Encounter Details Date Type Department Care Team Description 09/23/2019 [facility] Krystin Christie Medication Question Clinic Lola Engel APRN CNP (Glipizide ER 5mg tab) [address] [facility] [address] [place] [address] [place] [address] [phone] Social History Tobacco Use Types Packs/Day Years Used Date Smoking Tobacco: Never Smokeless Tobacco: Never Alcohol Use Standard Drinks/Week Comments No 0 (1 standard drink = 0.6 oz pure alcoho l) Sex Assigned at Date Recorded Female 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 I have re-sent the rx. Thanks! Telephone Encounter - Zoraida Correa RPH - 09/25/2019 1:57 PM CDT Fabian, we received a new prescription for Glipizide with the same directions as stated on the original order of 2QD, instead of a changed order of 1QD. Does that mean she is supposed to be on 2QD? Patient states she was verbally told by her provider to take 1QD but the script does not reflect that. Please call the pharmacy and speak to Odessa or Zoraida to clarify. Meghana is part of our prescription adherence monitoring which is why we are looking for accurate directions on her orders. Thanks, Zoraida Correa PharmD [facility] Telephone Encounter - Zoraida Correa RPH - 09/23/2019 12:22 PM CDT Becki Ridley is one of our pharmacy adherence patients. Upon contacting Becki to inform her she ispast due on her glipizide, she indicated she only uses one tablet, not two tablets daily as her instructions state. She implied her provider was aware of this change. Please send a new RX to reflect 1QD dosing if appropriate. Jamie, Zoraida Correa PharmD [facility] documented in this encounter Plan of Treatment Upcoming Encounters Date Type Specialty Care Team Description 05/19/2022 Office Visit ENT Dima Hidalgo M D [address] [facility] [place], [place] [address] (Sarah pino) 08/02/2022 Office Visit Neurology Yair Campos MD 420 [place] [address] (Sarah pino) documented as of this encounter Visit Diagnoses Diagnosis Type 2 diabetes mellitus with complicati on, without long-term current use of insulin (H) documented in this encounter Additional Health Concerns Assessment Noted Time PHQ-9 Depression Total Score: 8 01/07/2019 2:02 PM CDT documented as of this encounter Care Teams Heat Treatment Technician Relationship Specialty Start Date End Date Krystin Christie PCP - General Nurse Practitioner 09/18/19 SAURABH Engel AUTOMOBILES SALESPERSON [address] [facility] [place] [address] Krytsin Christie Assigned PCP 08/26/18 01/28/21 SAURABH Engel AUTOMOBILES SALESPERSON [address] [facility] [place] [address] Deyanira Stewart [facility] Pharmacist Pharmacist 01/13/20 08/24/[address] [place], [place] [id number] Nadira Nichols, MIKE Lead Skinner Pelts Primary Care - CC 01/21/20 03/02/20 Frank Argueta Community Health Worker 01/21/2002/14 documented as of this encounter
--- OUTSIDE RECORDS SUMMARY | 2022-05-09 10:59 | XMS_ITS | Encounter Summary ---
:1955 Author Organization [place] Address [facility] [place] [address] Care Team Providers Name Role Phone Tali Vilchis MD Unavailable Anat Fuller MD Unavailable [phone] Janny Hutton PA-C Unavailable [phone] Krystin Christie BEAD FORMING MACHINE SET UP OPERATOR NATURAL RESOURCES TECHNICIAN Primary Care Provider Krystin Christie APRN NATURAL RESOURCES TECHNICIAN Unavailable [phone] Sonja Tinajero [facility] Unavailable [phone] Eduin Wilhelm Unavailable Unavailable Cecilia Aleman MD Unavailable [phone] Thalia Glass MD Unavailable Vinita Linares RN Unavailable Unavailable Reason for Visit Reason Onset Date Comments Patient Request 09/05/2019 Encounter Details Date Type Department Care Team Description 09/05/2019 Telephone [facility] Cecilia Aleman Patient Request for Prostate and Urologic Sherwin ramos MD Cancers 420 [facility] 909 [facility] [address] [place] [address] [place], [place] [phone] (Wo rk) [address] [phone] Social History Tobacco Use Types Packs/Day Years Used Date Smoking Tobacco: Never Smokeless Tobacco: Never Alcohol Use Standard Drinks/Week Comments No 0 (1 standard drink = 0.6 oz pure alcoho l) Sex Assigned at Date Recorded Female 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 Bernie Kingsley LPN Staff Nurse RUCTOR FLYING documented in this encounter Plan of Treatment Upcoming Encounters Date Type Specialty Care Team Description 05/19/2022 Office Visit ENT Dima Hidalgo M D [address] [facility] Saroj Smith [place], [place] [address] (Wo rk) 08/02/2022 Office Visit Neurology Yair Campos MD 420 [facility] [place] [address] (Wo rk) documented as of this encounter Visit Diagnoses Not on filedocumented in this encounter Additional Health Concerns Assessment Noted Time PHQ-9 Depression Total Score: 8 01/07/2019 2:02 PM CDT documented as of this encounter Care Teams Area Intelligence Technician Relationship Specialty Start Date End Date Krystin Christie PCP - General Nurse Practitioner 12/15/17 09/08/19 SAURABH Engel NATURAL RESOURCES TECHNICIAN [address] [facility] [address] [place] [id number] Tali Vilchis MD INTERNAL MEDICINE - 04/10/15 ENDOCRINOLOGY, DIABETES 420 [facility] & METABOLISM 101 [place], [place] [address] Anat Fuller MD Internal Medicine 04/10/1509/16 MD Renee [address] [facility] [address] [place], [place] [address] Janny Hutton Physician Pigskin Trimmer Physician Pigskin Trimmer 06/30/15 09/17/19 CARLA Mckeon 420 [facility] 803 [place] [address] Krystin Christie Assigned PCP 08/26/18 01/28/21 SAURABH Engel NATURAL RESOURCES TECHNICIAN [address] [facility] [place] [address] Sonja Tinajero Pharmacist Pharmacist 12/24/18 09/17/19 Dve, [facility] [address] [place] [address] Eduin Wilhelm Personal Advocate & 06/17/19 09/17/19 Liaison (PAL) Cecilia Aleman MD Urology 07/22/19 09/17/19 MD Lyly 420 [facility] 394 [place] [address] Joan Monroe MD Obstetrics 07/22/19 09/17/19 Thalia Engel MD [address] [facility] 100 [place] [address] Vinita Linares, RN Registered Nurse 07/22/19 09/17/19 documented as of this encounter
--- OUTSIDE RECORDS SUMMARY | 2022-05-09 10:59 | XMS_ITS | Encounter Summary ---
:1955 Author Organization [place] Address [facility]ly [facility] [place] [address] Care Team Providers Name Role Phone Tali Vilchis MD Unavailable Anat Fuller MD Unavailable [phone] Janny Hutton PA-C Unavailable [phone] Krytsin Christie APRN MIXING TANK OPERATOR Primary Care Provider [phone] Krystin Christie APRN MIXING TANK OPERATOR Unavailable [phone] Sonja Tinajero [facility] Unavailable [phone] Eduin Wilhelm Unavailable Unavailable Encounter Details Date Type Department Care Team Description 07/04/2019 Travel Social History Tobacco Use Types Packs/Day Years Used Date Smoking Tobacco: Never Smokeless Tobacco: Never Alcohol Use Standard Drinks/Week Comments No 0 (1 standard drink = 0.6 oz pure alcoho l) Sex Assigned at Date Recorded Female 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 documented as of this encounter Plan of Treatment Upcoming Encounters Date Type Specialty Care Team Description 05/19/2022 Office Visit ENT Dima Hidalgo M D [address] [place], [place] [address] (Wo rk) 08/02/2022 Office Visit Neurology Yair Campos MD 420 [facility] [place] [address] (Wo rk) documented as of this encounter Visit Diagnoses Not on filedocumented in this encounter Additional Health Concerns Assessment Noted Time PHQ-9 Depression Total Score: 8 01/07/2019 2:02 PM CDT documented as of this encounter Care Teams Picking Tech Relationship Specialty Start Date End Date Krystin Christie PCP - General Nurse Practitioner 12/15/17 09/08/19 SAURABH Engel MIXING TANK OPERATOR [address] [facility] [place] [address] Tali Vilchis MD INTERNAL MEDICINE - 04/10/15 ENDOCRINOLOGY, DIABETES [address] [facility] & METABOLISM [address] [place], [place] [address] Anat Fuller MD Internal Medicine 04/10/1509/16 MD Renee 516 [facility] [address] [place], [place] [address] Janny Hutton Physician Wireless Team Member Physician Wireless Team Member 06/30/15 09/17/19 CARLA Mckeon 420 [facility] [address]03 [place], [place] [address] Krystin Christie Assigned PCP 08/26/18 01/28/21 SAURABH Engel MIXING TANK OPERATOR [address] [facility] [place] [address] Sonja Tinajero Pharmacist Pharmacist 12/24/18 09/17/19 Dev [facility] [address] [place] [address] [place] [id number] Eduin Wilhelm Personal Advocate & 06/17/19 09/17/19 Liaison (PAL) documented as of this encounter
--- OUTSIDE RECORDS SUMMARY | 2022-05-09 10:59 | XMS_ITS | Encounter Summary ---
:1955 Author Organization [place] Address Formerly [facility] [place] [address] Care Team Providers Name Role Phone Tali Vilchis MD Unavailable Anat Fuller MD Unavailable [phone] Janny Hutton PA-C Unavailable [phone] Krystin Christie ANESTHETIST STAFF ELECTRONIC WARFARE OFFICER Primary Care Provider [phone] Krystin Christie APRN STAFF ELECTRONIC WARFARE OFFICER Unavailable [phone] Sonja Tinajero [facility] Unavailable [phone] Eduin Wilhelm Unavailable Unavailable Cecilia Aleman MD Unavailable [phone] Thalia Glass MD Unavailable Vinita Linares RN Unavailable Unavailable Encounter Details Date Type Department Care Team Description 09/06/2019 Travel Social History Tobacco Use Types Packs/Day Years Used Date Smoking Tobacco: Never Smokeless Tobacco: Never Alcohol Use Standard Drinks/Week Comments No 0 (1 standard drink = 0.6 oz pure alcoho l) Sex Assigned at Date Recorded Female 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 documented as of this encounter Plan of Treatment Upcoming Encounters Date Type Specialty Care Team Description 05/19/2022 Office Visit ENT Dima Hidalgo M D [address] [place] [address] (Wo rk) 08/02/2022 Office Visit Neurology Yair Campos MD [address] [facility] [address] [place], [place] [address] (Wo rk) documented as of this encounter Visit Diagnoses Not on filedocumented in this encounter Additional Health Concerns Assessment Noted Time PHQ-9 Depression Total Score: 8 01/07/2019 2:02 PM CDT documented as of this encounter Care Teams Bobbin Hauler Relationship Specialty Start Date End Date Krystin Christie PCP - General Nurse Practitioner 12/15/17 09/08/19 SAURABH Engel STAFF ELECTRONIC WARFARE OFFICER [address] [facility] [address] [place] [phone] Tali Vilchis MD INTERNAL MEDICINE - 04/10/15 ENDOCRINOLOGY, DIABETES 420 [facility] & METABOLISM 101 [place], [place] [address] Anat Fuller MD Internal Medicine 04/10/1509/16 MD Renee 516 [facility] [address] [place] [address] Janny Hutton Physician Microbiology Supervisor Physician Microbiology Supervisor 06/30/15 09/17/19 CARLA Mckeon 420 [facility]MENT 803 [place] [address] Krystin Christie Assigned PCP 08/26/18 01/28/21 SAURABH Engel STAFF ELECTRONIC WARFARE OFFICER [address] [facility] [address] [place] [phone] Sonja Tinajero Pharmacist Pharmacist 12/24/18 09/17/19 Dev [facility] [address] [facility] [place] [id number] Eduin Wilhelm Personal Advocate & 06/17/19 09/17/19 Liaison (PAL) Cecilia Aleman MD Urology 07/22/19 09/17/19 MD Lyly 420 [facility] 394 [place] [address] Joan Monroe MD Obstetrics 07/22/19 09/17/19 Thalia Engel MD 63[address] [facility] [place] [address] Vinita Linares RN Registered Nurse 07/22/19 09/17/19 documented as of this encounter
--- OUTSIDE RECORDS SUMMARY | 2022-05-09 10:59 | XMS_ITS | Encounter Summary ---
:1955 Author Organization [place] Address [facility] [place] [address] Care Team Providers Name Role Phone Tali Vilchis MD Unavailable Anat Fuller MD Unavailable [phone] Janny Hutton PA-C Unavailable [phone] Krystin Christie CHECK CASHIER COMIC ARTIST Primary Care Provider [phone] Krystin Christie APRN COMIC ARTIST Unavailable [phone] Sonja Tinajero [facility] Unavailable [phone] Eduin Wilhelm Unavailable Unavailable Cecilia Aleman MD Unavailable [phone] Thalia Glass MD Unavailable [phone] Vinita Linares RN Unavailable Unavailable Reason for Visit Reason Comments Health Maintenance Encounter Details Date Type Department Care Team Description 08/12/2019 Documentation Only [facility] Ladan Clay, Health Maintenance Coordination, [facility] Ambulatory 909 [place] [address] Social History Tobacco Use Types Packs/Day Years Used Date Smoking Tobacco: Never Smokeless Tobacco: Never Alcohol Use Standard Drinks/Week Comments No 0 (1 standard drink = 0.6 oz pure alcoho l) Sex Assigned at Date Recorded Female 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 documented as of this encounter Plan of Treatment Upcoming Encounters Date Type Specialty Care Team Description 05/19/2022 Office Visit ENT Dima Hidalgo M D [address] [facility] [place], [place] [address] (Wo rk) 08/02/2022 Office Visit Neurology Yair Campos MD 420 [facility] [place] [address] (Wo rk) documented as of this encounter Visit Diagnoses Not on filedocumented in this encounter Additional Health Concerns Assessment Noted Time PHQ-9 Depression Total Score: 8 01/07/2019 2:02 PM CDT documented as of this encounter Care Teams Tightener Relationship Specialty Start Date End Date Krystin Christie PCP - General Nurse Practitioner 12/15/17 09/08/19 SAURABH Engel COMIC ARTIST [address] [facility] [place] [phone] Tali Vilchis MD INTERNAL MEDICINE - 04/10/15 ENDOCRINOLOGY, DIABETES 420 [facility] & METABOLISM [address] [place] [address] Anat Fuller MD Internal Medicine 04/10/1509/16 MD Renee 516 [facility] [address] [place] [address] Janny Hutton Physician Sheet Rock Installer Physician Sheet Rock Installer 06/30/15 09/17/19 CARLA Mckeon 420 [facility] 803 [place] [address] Krystin Christie Assigned PCP 08/26/18 01/28/21 SAURABH Engel COMIC ARTIST [address] [facility] [place] [phone] Sonja Tinajero Pharmacist Pharmacist 12/24/18 09/17/19 Dev [facility] 1440 [facility] [place] [id number] Eduin Wilhelm Advocate & 06/17/19 09/17/19 Liaison (PAL) Cecilia Aleman MD Urology 07/22/19 09/17/19 MD Lyly 420 [facility] 394 [place] [address] Joan Monroe MD Obstetrics 07/22/19 09/17/19 Thalia Engel MD [address] [facility] [address] [address] Vinita Linares, MIKE Registered Nurse 07/22/19 09/17/19 documented as of this encounter
--- OUTSIDE RECORDS SUMMARY | 2022-05-09 10:59 | XMS_ITS | Encounter Summary ---
:1955 Author Organization [place] Address Formerly [facility] 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 documented as of this encounter Plan of Treatment Upcoming Encounters Date Type Specialty Care Team Description 05/19/2022 Office Visit ENT Dima Hidalgo M D 6875 [place], [place] [address] (Wo rk) 08/02/2022 Office Visit Neurology Yair Campos MD 420 [place], [place] [address] (Wo rk) documented as of this encounter Visit Diagnoses Not on filedocumented in this encounter Additional Health Concerns Assessment Noted Time PHQ-9 Depression Total Score: 8 01/07/2019 2:02 PM CDT documented as of this encounter Care Teams Pasteuriser Operator Relationship Specialty Start Date End Date Krystin Christie APRN CNP PCP - General Nurse Practitioner 09/18/[address] [place] [address] [place] [id number] Krystin Christie, SAURABH DIGITAL SALES REPRESENTATIVE Assigned PCP 08/26/18 01/28/21 [address] [facility] [place] [address] documented as of this encounter
--- OUTSIDE RECORDS SUMMARY | 2022-05-09 10:59 | XMS_ITS | Encounter Summary ---
:1955 Author Organization [place] Address [address] [facility] [place] [address] Care Team Providers Name Role Phone Tali Vilchis MD Unavailable Anat Fuller MD Unavailable [phone] Janny Hutton PA-C Unavailable [phone] Krystin Christie [facility] DELIVERY AND MAIL SORTER Primary Care Provider Krystin Christie APRN DELIVERY AND MAIL SORTER Unavailable [phone] Sonja Tinajero [facility] Unavailable [phone] Eduin Wilhelm Unavailable Unavailable Cecilia Aleman MD Unavailable [phone] Thalia Glass MD Unavailable [phone] Vinita Linares RN Unavailable Unavailable Encounter Details Date Type Department Care Team Description 08/23/2019 Orders Only [facility] Urology and Cecilia Aleman ry tract Inst for Prostate and MD Lyly infection without Urologic Cancers 420 [facility] hematuria, site 909 [facility] MMC [address] unspecified (Primary 4th Floor [place], [place]x) [place] [address] [phone] Social History Tobacco Use Types Packs/Day Years Used Date Smoking Tobacco: Never Smokeless Tobacco: Never Alcohol Use Standard Drinks/Week Comments No 0 (1 standard drink = 0.6 oz pure alcoho l) Sex Assigned at Date Recorded Female 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/2018 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 documented as of this encounter Plan of Treatment Upcoming Encounters Date Type Specialty Care Team Description 05/19/2022 Office Visit ENT Dima Hidalgo M D [facility] [facility] [place], [place] [address] (Wo rk) 08/02/2022 Office Visit Neurology Yair Campos MD [address] [place] [address] (Wo rk) documented as of this encounter Visit Diagnoses Diagnosis Urinary tract infection without hematuri a, site unspecified - Primary documented in this encounter Additional Health Concerns Assessment Noted Time PHQ-9 Depression Total Score: 8 01/07/2019 2:02 PM CDT documented as of this encounter Care Teams Quality Control Checker Relationship Specialty Start Date End Date Krystin Christie PCP - General Nurse Practitioner 12/15/17 09/08/19 SAURABH Engel DELIVERY AND MAIL SORTER [address]36 [facility] [place] [address] Tali Vilchis MD INTERNAL MEDICINE - 04/10/15 ENDOCRINOLOGY, DIABETES [address] [facility] [address] [place] [address] Anat Fuller MD Internal Medicine 04/10/1509/16 MD Renee 516 [facility] [address] [place] [address] Janny Hutton Physician Talent Manager Physician Talent Manager 06/30/15 09/17/19 CARLA Mckeon 420 [facility] 803 [place], [place] [address] Krystin Christie Assigned PCP 08/26/18 01/28/21 SAURABH Engel DELIVERY AND MAIL SORTER 3304 [facility] [place] [address] Sonja Tinajero Pharmacist Pharmacist 12/24/18 09/17/19 Dev, [facility] [address] [place] [address] Eduin Wilhelm Personal Advocate & 06/17/19 09/17/19 Liaison (PAL) Cecilia Aleman MD Urology 07/22/19 09/17/19 MD Lyly 420 [facility] 394 [place] [address] Joan Monroe MD Obstetrics 07/22/19 09/17/19 Thalia Engel MD [address] [place] [address] Vinita Linares RN Registered Nurse 07/22/19 09/17/19 documented as of this encounter
--- OUTSIDE RECORDS SUMMARY | 2022-05-09 10:59 | XMS_ITS | Encounter Summary ---
:1955 Author Organization [place] Address [facility] [place] [address] Care Team Providers Name Role Phone Tali Vilchis MD Unavailable Anat Fuller MD Unavailable [phone] Janny Hutton PA-C Unavailable [phone] Krystin Christie OFFICE CLINICIAN DANCE DIRECTOR Primary Care Provider [phone] Krystin Christie APRN DANCE DIRECTOR Unavailable [phone] Sonja Tinajero [facility] Unavailable [phone] Eduin Wilhelm Unavailable Unavailable Cecilia Aleman MD Unavailable [phone] Thalia Glass MD Unavailable [phone] Vinita Linares RN Unavailable Unavailable Reason for Visit Diagnostic Imaging Mammo (Routine) - Closed Specialty Diagnoses / Procedures Referred By Contact Refer red To Contact Diagnoses Visit for screening mammogram Thalia Glass Procedures MA Screening Digital Bilateral MD Maren [address] [facility] [address] [place] [address] Referral ID Status Reason Start Date Expiration Date Visits Requ ested Visits Authorized [id number] Closed 07/30/2019 07/29/2020 1 1 Encounter Details Date Type Department Care Team Description 08/27/2019 Ancillary Procedure [facility] for [facility] na mammogram [address] [facility] [address] [place] [id number] Social History Tobacco Use Types Packs/Day Years Used Date Smoking Tobacco: Never Smokeless Tobacco: Never Alcohol Use Standard Drinks/Week Comments No 0 (1 standard drink = 0.6 oz pure alcoho l) Sex Assigned at Date Recorded Female 08/17/2018 10:39 PM TOP LIFT CUTTER documented as of this encounter Plan of Treatment Upcoming Encounters Date Type Specialty Care Team Description 05/19/2022 Office Visit ENT Dima [facility]idalgo M D [address] [facility] [address] [place], [place] [address] (Wo rk) 08/02/2022 Office Visit Neurology Yair Campos MD [address] [place] [address] (Wo rk) documented as of this encounter Procedures Procedure Name Priority Date/Time Associated Diagnosis Comme nts MA SCREENING Routine 08/27/2019 2:37 PM Visit for screening Re sults for this DIGITAL BILATERAL TOP LIFT CUTTER mammogram procedure are in the results section. documented in this encounter Results MA Screening Digital Bilateral (08/27/2019 2:37 PM TOP LIFT CUTTER) Anatomical Region Laterality Modality Breast Bilateral Mammography Specimen (Source) Anatomical Location Collection Method / Collectio n Time Received Time / Laterality Volume Impressions 08/27/2019 3:55 PM TOP LIFT CUTTER IMPRESSION: BI-RADS CATEGORY: 1 - ??NEGATIVE. RECOMMENDED FOLLOW-UP: Annual Mammograph y. The patient will be notified of the resu lts. AMADEO CRANDALL MD Narrative 08/27/2019 3:55 PM TOP LIFT CUTTER Examination: Bilateral digital screening mammography with computer aided detection, 08/27/2019 2:37 PM. Comparison: 08/17/18, 01/08/16 History: No current breast concerns. BREAST DENSITY: Scattered fibroglandular densities. COMMENTS: ??No suspicious finding. Procedure Note Amadeo Crandall MD - 08/27/2019 Examination: Bilateral digital screening mammography with computer aided detection, 08/27/2019 2:37 PM. Comparison: 08/17/18, 01/08/16 History: No current breast concerns. BREAST DENSITY: Scattered fibroglandular densities. COMMENTS: No suspicious finding. IMPRESSION: BI-RADS CATEGORY: 1 - NEGATI VE. RECOMMENDED FOLLOW-UP: Annual Mammograph y. The patient will be notified of the resu lts. AMADEO CRANDALL MD Thalia Monroe MD IMG MAMMOGRAPHY REY INGRAM documented in this encounter Visit Diagnoses Diagnosis Visit for screening mammogram Other screening mammogram documented in this encounter Additional Health Concerns Assessment Noted Time PHQ-9 Depression Total Score: 8 01/07/2019 2:02 PM CDT documented as of this encounter Care Teams Implant Polisher Relationship Specialty Start Date End Date Krystin Christie PCP - General Nurse Practitioner 12/15/17 09/08/19 SAURABH Engel DANCE DIRECTOR [address] [facility] [place] [id number] Tali Vilchis MD INTERNAL MEDICINE - 04/10/15 ENDOCRINOLOGY, DIABETES [address] [facility] [address] [place], [place] [address] Anat Fuller MD Internal Medicine 04/10/1509/16 MD Renee [address] [facility] [address] [place], [place] [address] Janny Hutton Physician Sap Abap Programmer Physician Sap Abap Programmer 06/30/15 09/17/19 CARLA Mckeon [address] [facility] [address] [place], [place] [address] Krystin Christie Assigned PCP 08/26/18 01/28/21 SAURABH Engel DANCE DIRECTOR [address] [facility] [place] [address] Sonja Tinajero Pharmacist Pharmacist 12/24/18 09/17/19 Dev [facility] [address] [place] [address] Eduin Wilhelm Personal Advocate & 06/17/19 09/17/19 Liaison (PAL) Cecilia Aleman MD Urology 07/22/19 09/17/19 MD Lyly [address] [facility] [address] [place] [address] Joan Monroe MD Obstetrics 07/22/19 09/17/19 Thalia Engel MD [address] [id number] Vinita Linares, [place]KE Registered Nurse 07/22/19 09/17/19 documented as of this encounter
--- OUTSIDE RECORDS SUMMARY | 2022-05-09 10:59 | XMS_ITS | Encounter Summary ---
:1955 Author Organization [place] Address [address] [facility] [place] [address] Care Team Providers Name Role Phone Tali Vilchis MD Unavailable Anat Fuller MD Unavailable [phone] Janny Hutton PA-C Unavailable [phone] Krystin Christie APRN PEDIATRIC UROLOGIST Primary Care Provider Krystin Christie APRN PEDIATRIC UROLOGIST Unavailable [phone] Sonja Tinajero [facility] Unavailable [phone] Eduin Wilhelm Unavailable Unavailable Cecilia Aleman MD Unavailable [phone] Thalia Glass MD Unavailable Vinita Linares RN Unavailable Unavailable Reason for Visit Reason Onset Date Comments Refill Request 07/29/2019 Encounter Details Date Type Department Care Team Description 07/29/2019 MyC Refill M [facility] Krystin Christie Ref ill Request Lola Engel APRN PEDIATRIC UROLOGIST [address] [facility] [address] [facility] [address] [place] [address] [place] [address] [phone] Social History Tobacco Use Types Packs/Day Years Used Date Smoking Tobacco: Never Smokeless Tobacco: Never Alcohol Use Standard Drinks/Week Comments No 0 (1 standard drink = 0.6 oz pure alcoho l) Sex Assigned at Date Recorded Female 08/17/2018 10:39 PM HISTOTECHNOLOGIST SUPERVISOR documented as of this encounter Miscellaneous Notes Telephone Encounter - Stephanie Varghese RN - 07/29/2019 1:23 PM CST Requested Prescriptions Pending Prescriptions Disp Refills ??? blood glucose (ACCU-CHEK ANNIE PLUS) test strip 200 strip 1 Si strip by In Vitro route daily Last Written Prescription Date: 09/29/2016 Last Fill Quantity: 200, # refills: 3 Last office visit: 05/03/2019 with prescribing provider Future Office Visit: Next 5 appointments (look out 90 days) Sep 17, 2019 10:20 AM HISTOTECHNOLOGIST SUPERVISOR Multi-provider visit with Krystin Christie APRN CNP, Ea Rn [facility] [address] [place] [address] [address] [place] [address] Diabetic Supplies Protocol Passed - 07/29/2019 1:22 PM Passed - Medication is active on med list Passed - Patient is 18 years of age or older Passed - Recent (6 mo) or future (30 days) visit within the authorizing provider's specialty Patient had office visit in the last 6 months or has a visit in the next 30 days with authorizing provider. See Patient Info tab in inbasket, or Choose Columns in Meds & Orders section of the refill encounter. ??? levothyroxine (SYNTHROID/LEVOTHROID) 50 MCG tablet 90 tablet 0 Sig: Take 1 tablet (50 mcg) by mouth daily Last Written Prescription Date: 05/06/19 Last Fill Quantity: 90, # refills: 0 Last office visit: 05/03/2019 with prescribing provider Future Office Visit: Next 5 appointments (look out 90 days) Sep 17, 2019 10:20 AM HISTOTECHNOLOGIST SUPERVISOR Multi-provider visit with Krystin Christie APRN CNP, Ea Rn Pal 3a [facility] [address] [place] [address] [address] [place] [address] Thyroid Protocol Failed - 07/29/2019 1:22 PM Failed - Normal TSH on file in past 12 months Recent Labs Lab Test 05/03/19 1413 TSH 6.70* Passed - Patient is 12 years or older Passed - Recent (12 mo) or future (30 days) visit within the authorizing provider's specialty Patient has had an office visit with the authorizing provider or a provider within the authorizing providers department within the previous 12 mos or has a future within next 30 days. See Patient Info tab in inbasket, or Choose Columns in Meds & Orders section of the refill encounter. Passed - Medication is active on med list Passed - No active on record If patient is or has had a positive test, please check TSH. Passed - No positive test in past 12 months If patient is or has had a positive test, please check TSH. Medication refills given. Stephanie Varghese RN on 07/29/2019 at 1:24 PM OTECHNOLOGIST SUPERVISOR documented in this encounter Plan of Treatment Upcoming Encounters Date Type Specialty Care Team Description 05/19/2022 Office Visit ENT Dima Hidalgo M D [address] [place], [place] [address] (Wo rk) 08/02/2022 Office Visit Neurology Yair Campos MD [address] [facility] [place], [place] [address] (Wo rk) documented as of this encounter Visit Diagnoses Diagnosis Type 2 diabetes mellitus without complic ation, without long-term current use of insulin (H) Subclinical hypothyroidism Other specified acquired hypothyroidism documented in this encounter Additional Health Concerns Assessment Noted Time PHQ-9 Depression Total Score: 8 01/07/2019 2:02 PM CDT documented as of this encounter Care Teams Sheetfed Press Operator Relationship Specialty Start Date End Date Krystin Christie PCP - General Nurse Practitioner 12/15/17 09/08/19 SAURABH Engel PEDIATRIC UROLOGIST [address] [facility] [place] [address] Tali Vilchis MD INTERNAL MEDICINE - 04/10/15 ENDOCRINOLOGY, DIABETES [address] [facility] [address] [place], [place] [address] Anat Fuller MD Internal Medicine 04/10/1509/16 MD Renee [address] [facility] [address] [place], [place] [phone] Janny Hutton Physician Supervisor Data Processing Physician Supervisor Data Processing 06/30/15 09/17/19 CARLA Mckeon [address] [facility] [address] [place], [place] [phone] Krystin Christie Assigned PCP 08/26/18 01/28/21 Maren, SAURABH PEDIATRIC UROLOGIST [address] [facility] [place] [address] Sonja Tinajero Pharmacist Pharmacist 12/24/18 09/17/19 Dev, [facility] [address] [facility] [place] [address] Eduin Wilhelm Personal Advocate & 06/17/19 09/17/19 Liaison (PAL) Cecilia Aleman MD Urology 07/22/19 09/17/19 MD Lyly [address] [facility] [address] [place] [address] Joan Monroe MD Obstetrics 07/22/19 09/17/19 Thalia Engel MD [address] [place] [address] [place] [id number] Vinita Linares, MIKE Registered Nurse 07/22/19 09/17/19 documented as of this encounter
--- OUTSIDE RECORDS SUMMARY | 2022-05-09 10:59 | XMS_ITS | Encounter Summary ---
:1955 Author Organization [facility] Address [address] [facility] [place] [address] Care Team Providers Name Role Phone Krystin Christie APRN, CNP Unavailable [phone] Krystin Christie APRN, CNP Primary Care Provider [phone] Reason for Referral [facility] (Routine) - Closed Specialty Diagnoses / Procedures Referred By Contact Refer red To Contact Diagnoses Rotator cuff syndrome of left shoulder Eric Abdi M [facility] - [place] [address] [facility] [address] [place] [address] [place] [address] Fax: Referral ID Status Reason Start Date Expiration Date Visits Requ ested Visits Authorized [id number] Closed 09/25/2019 07/16/2020 40 38 Reason for Visit Reason Comments Pain Pain Encounter Details Date Type Department Care Team Description 09/25/2019 Office Visit [facility] Eric Abdi Trigger thumb, right thumb (Primary Dx); Sports Medicine MD Joo Multiple joint pain; Clinic [place] COKER H/O vitamin D deficiency; [address] 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 Most people can return to normal work following procedures ??? Do not soak in a hot tub, mac or swimming pool for 48 hours ??? It is ok to shower ??? The lidocaine (what is giving you pain relief right now) will likely stop working in 1-2 hours. You will then have pain again; similar to before you received the injection. The corticosteroid may take up to 2 weeks to take full effect. ??? Ice today if you have pain at the injection site. ??? It is OK to do your normal activity; vigorous exercise is not recommended. ??? Post injection instructions given. Watch for any sign of infection: Red, hot to touch and swollen, call or return immediately if so. ??? Ice twice today for 20 minutes each time and three times tomorrow (20 minutes each session) for symptom management. ??? OTC meds for pain only as needed (Tylenol extra strength-500mg ) ??? It is common to have facial flushing for a few days. You can also occasionally experience a feeling of restlessness for a few days after the injection. Any other concerns, give us a call. ??? Follow up with PCP for general medical issues. ??? The injection you received today may take 7-10 days to begin to reduce your pain and swelling. ??? Cannot have a repeat steroid injection any sooner than 3 months. ??? If you are a known diabetic, make sure to increase the frequency you check your blood sugars. Adjust accordingly. Steroid injections will increase your blood sugars for about 1 week. Follow up if needed. Call direct clinic number [[phone]] at any time with questions or concerns. If you have any further questions for your physician or physician???s care team you can call [phone] and use option 2 then 3 to leave a voice message. documented in this encounter Progress Notes Eric Abdi MD - 09/25/2019 9:00 AM CDTAssociated Order(s): Hand / Upper Extremity Injection/Arthrocentesis: R thumb A1; Large Joint Injecti on/Arthocentesis: L subacromial bursa Musculoskeletal Problem [facility] Follow-up Visit s Sep 25, 2019 PCP: Krystin Christie Subjective: Becki is a 64 year old female who is seen in follow up for evaluation of Chief Complaint Patient presents with ??? Left Hand - Pain ??? Right Hand - Pain Her last visit was on 05/29/2019. Since that time, symptoms have been returning recently in her right thumb.The joints in her hands, shoulders and hips have been worse. She did fall a couple of months ago on the ice. She reports she had ankle pain for a while but then got better. Left shoulder slightly more prominent in terms of pain. Screening rheumatologic labs done last fall showed a mild elevation in CRP. Today she reports being diagnosed with fibromyalgia by [place] many years ago. She does not exercise. She was told by a health care facility administrator several years ago to never exercise. She doessee pulmonology now for sleep apnea. Becki Ridley is accompanied today by self. Patient has noticed improved symptoms with Voltaren gel, ibuprofen treatment. Patient has slight swelling Pain is located bilateral hands and bilateral shoulders, getting progressively worse. Patient is using no aids. Patient's past medical, surgical, social and family histories are reviewed today. Social History: retired Past Medical History: Diagnosis Date ??? Angioedema ??? Anxiety ??? Arthritis ??? Asthma ??? Blood transfusion ??? Depression ??? DM2 (diabetes mellitus, type 2) (H) ??? Hypertension ??? Kidney infection ??? Lower extremity edema ??? VILLAREAL (nonalcoholic steatohepatitis) ??? PCOS (polycystic ovarian syndrome) ??? Restless legs syndrome ??? Restrictive lung disease ??? Sleep apnea ??? Subclinical hypothyroidism 2009 Patient Active Problem List Diagnosis Date Noted ??? Bilateral incipient cataracts 09/18/2019 Priority: Medium ??? Type 2 diabetes mellitus without retinopathy (H) 09/18/2019 Priority: Medium ??? Blepharitis of upper and lower eyelids of both eyes, unspecified type 09/18/2019 Priority: Medium ??? Diabetic gastroparesis (H) 10/04/2018 Priority: Medium ??? Advance care planning 09/20/2018 Priority: Medium ??? Generalized weakness 09/09/2018 Priority: Medium ??? Weakness 08/20/2018 Priority: Medium ??? Elevated liver enzymes 08/17/2018 Priority: Medium ??? Depression 08/17/2018 Priority: Medium On social security/disability ??? Morbid obesity, unspecified obesity type (H) 09/29/2016 Priority: Medium ??? History of corticosteroid therapy 09/29/2016 Priority: Medium ??? NAFLD (nonalcoholic fatty liver disease) 07/04/2016 Priority: Medium ? ? DM type 2 (diabetes mellitus, type 2); BP Goal <140/90 04/06/2012 Priority: Medium ??? Subclinical hypothyroidism 04/06/2012 Priority: Medium ??? Urticaria 04/06/2012 Priority: Medium ??? Asthma 04/06/2012 Priority: Medium Family History Problem Relation Age of Onset [...] Degeneration No family hx of Social History Socioeconomic History ??? Marital status: Single Spouse name: Not on file ??? Number of children: Not on file ??? Years of education: Not on file ??? Highest education level: Not on file Occupational History ??? Not on file Social Needs ??? Financial resource strain: Not on file ??? Food insecurity: Worry: Not on file Inability: Not on file ??? Transportation needs: Medical: Not on file Non-medical: Not on file Tobacco Use ??? Smoking status: Never Smoker ??? Smokeless tobacco: Never Used Substance and Sexual Activity ??? Alcohol use: No Alcohol/week: 0.0 standard drinks Past Surgical History: Procedure Laterality Date ??? COLONOSCOPY age 52 [place] results ??? EYE SURGERY ??? IR LIVER BIOPSY PERCUTANEOUS 07/04/2019 ??? PERCUTANEOUS BIOPSY LIVER Right 07/04/2019 Procedure: Percutaneous Liver Biopsy; Surgeon: Wali Hare PA-C; [facility] Review of Systems Musculoskeletal: Positive for joint pain. All other systems reviewed and are negative. Physical Exam BP 128/81 Ht 1.575 m (5' 2) Wt 88.5 kg (195 lb) BMI 35.67 kg/m?? Constitutional:well-developed, well-nourished, and in no distress. Cardiovascular: Intact distal pulses. Neurological: alert. Gait Normal: Gait, station, stance, and balance appear normal for age Skin: Skin is warm and dry. Psychiatric: Mood and affect normal. Respiratory: unlabored, speaks in full sentences Lymph: no LAD, no lymphangitis Right Hand Exam Tenderness Right hand tenderness location: Palmar aspect of thumb MCP joint. Range of Motion Wrist Extension: normal Flexion: normal Pronation: normal Supination: normal Hand MP Thumb: abnormal Muscle Strength The patient has normal right wrist strength. Tests Alexa's test: negative Other Erythema: absent Scars: absent Sensation: normal Pulse: present Comments: Triggering at thumb MP joint observed. Left Hand Exam Range of Motion Hand MP Thumb: normal Left Shoulder Exam Tenderness The patient is experiencing no tenderness. Range of Motion Active abduction: normal Passive abduction: normal Extension: normal External rotation: normal Forward flexion: normal Internal rotation 0 degrees: normal Internal rotation 90 degrees: normal Muscle Strength Abduction: 5/5 Internal rotation: 5/5 External rotation: 5/5 Supraspinatus: 5/5 Subscapularis: 5/5 Biceps: 5/5 Tests Apprehension: negative Shannon test: positive Cross arm: negative Impingement: positive Drop arm: positive Sulcus: absent Other Erythema: absent Scars: absent Sensation: normal Pulse: present Component Latest Ref Rng & Units 05/08/2019 Sed Rate 0 - 30 mm/h 11 CRP Inflammation 0.0 - 8.0 mg/L 11.0 (H) Cyclic Citrullinated Peptide Antibody, IgG <7 U/mL 1 ASSESSMENT/PLAN ICD-10-CM 1. Trigger thumb, right thumb M65.311 Hand / Upper Extremity Injection/Arthrocentesis: R thumb A1 2. Multiple joint pain M25.50 CRP inflammation Vitamin D deficiency screening 3. H/O vitamin D deficiency Z86.39 Vitamin D deficiency screening 4. Body mass index (BMI) 35.0-35.9, adult Z68.35 Vitamin D deficiency screening 5. Rotator cuff syndrome of left shoulder M75.102 Large Joint Injection/Arthocentesis: L subacromialbursa [facility] PT, HAND, AND CHIROPRACTIC REFERRAL Recurrence of trigger thumb on the right. We discussed possible surgical referral but she opts for repeat injection today. Recommend that if pain returns, that she call for a surgical consult then. Left shoulder demonstrates mild impingement syndrome today. We will start physical therapy and offered a subacromial injection today to which she readily agreed. In reviewing her diffuse arthralgias and myalgias, I fear this may be fibromyalgia in nature. However she did have a mildly elevated CRP in the past, and was told in the past she had low vitamin D. There is no records of this in her chart as it was done elsewhere. We will recheck vitamin D today and repeat CRP. I think she may want to look into resuming exercises and encouraged her to discuss this with her primary physician and her lung specialist. Large Joint Injection/Arthocentesis: L subacromial bursa Date/Time: 09/25/2019 9:49 AM Performed by: Eric Abdi MD Authorized by: Eric Abdi MD Indications: Pain Needle Size: 25 G Guidance: landmark guided Approach: Posterolateral Location: Shoulder Site: L subacromial bursa Medications: 5 mL lidocaine 1 %; 4 mL lidocaine 1 %; 40 mg triamcinolone 40 MG/ML Outcome: Tolerated well, no immediate complications Procedure discussed: discussed risks, benefits, and alternatives Timeout: timeout called immediately prior to procedure Prep: patient was prepped and draped in usual sterile fashion Hand / Upper Extremity Injection/Arthrocentesis: R thumb A1 Date/Time: 09/25/2019 9:49 AM Performed by: Eric Abdi MD Authorized by: Eric Abdi MD Indications: Pain Needle Size: 27 G Guidance: landmark Approach: Volar Condition: trigger finger Location: Thumb Site: R thumb A1 Medications: 0.5 mL lidocaine 1 %; 20 mg triamcinolone 40 MG/ML Outcome: Tolerated well, no immediate complications Consent Given by: Parent and patient Timeout: timeout called immediately prior to procedure Prep: patient was prepped and draped in usual sterile fashion documented in this encounter Plan of Treatment Upcoming Encounters Date Type Specialty Care Team Description 05/19/2022 Office Visit ENT Dima Hidalgo M D [address] [facility] [place], [place] [address] (Sarah pino) 08/02/2022 Office Visit Neurology Yair Campos MD [address] [place] [id number] (Sarah pino) Scheduled Referrals Name Type Priority Associated Diagnoses Order S chedule [facility] PT, HAND, AND Referral Routine Rotator cuff syndrome 1 Occurrences starting CHIROPRACTIC REFERRAL of left shoulder until 09/24/2020 documented as of this encounter Procedures Procedure Name Priority Date/Time Associated Comments Diagnosis VITAMIN D DEFICIENCY Routine 09/25/2019 9:42 AM Body mass inde x Results for this SCREENING CDT (BMI) 35.0-35.9, procedure a re in adult the results Multiple joint p ain section. H/O vitamin D deficiency HC INJECTION SINGLE Routine 09/25/2019 9:00 AM Trigger thumb, Results for this TENDON CDT right thumb procedure are i n SHEATH/LIGAMENT the results section. HC DRAIN/INJ MAJOR Routine 09/25/2019 9:00 AM Rotator cuff Res ults for this JOINT/BURSA W/O US CDT syndrome of left proce dure are in shoulder the results section. documented in this encounter Results Vitamin D deficiency screening (09/25/2019 9:42 AM CDT) athologist Signature Vitamin D 28 20 - 75 09/26/2019 [facility] Deficiency ug/L 11:56 AM CDT [place] [facility] screening [facility] Comment: Season, race, dietary intake, and treatm ent affect the concentration of 16-uotcnwe-Vofoben D. Values may decreas e during winter months and increase during summer months. Values 20-29 ug/L may indicate Vitamin D insufficiency and values <20 ug/L may indicate Vitamin D deficiency. Vitamin D determination is routinely per formed by an immunoassay specific for 25 hydroxyvitamin D3. ??If an individual is on vitamin D2 (ergocalciferol) supplementation, please specify 25 OH vi tamin D2 and D3 level determination by LCMSMS test VITD23. Specimen Anatomical Collection Method Collection Time Receive d Time (Source) Location / / Volume Laterality Blood specimen 09/25/2019 9:42 AM 020 9:43 (specimen) CDT AM CDT Eric Abdi MD LAB - BLOOD ORDERABLES Performing Organization Address City/State/ZIP Code Phon e Number [facility] [address] [place], [place] [id number] [place] [address] HC INJECTION SINGLE TENDON SHEATH/LIGAMENT (09/25/2019 9:00 AM CDT) Narrative Eric Abdi MD - 09/25/2019 9:00 AM CDT Eric Abdi MD ? 09/25/2019 11:23 AM Hand / Upper Extremity Injection/Arthroc entesis: R thumb A1 Date/Time: 09/25/2019 9:49 AM Performed by: Eric Abdi M D Authorized by: Eric Abdi MD Indications: ??Pain Needle Size: ??27 G Guidance: landmark ?? Approach: ??Volar Condition: trigger finger ?? Location: ??Thumb Site: ??R thumb A1 Medications: ??0.5 mL lidocaine 1 %; 20 mg triamcinolone 40 MG/ML Outcome: ??Tolerated well, no immediate complications Consent Given by: ??Parent and patient Timeout: timeout called immediately prio r to procedure ?? Prep: patient was prepped and draped in usual sterile fashion ?? Eric Abdi MD PROCEDURE/MINOR SURGICAL ORD ERABLES HC DRAIN/INJ MAJOR JOINT/BURSA W/O US (09/25/2019 9:00 AM CDT) Narrative Eric Abdi MD - 09/25/2019 9:00 AM CDT Eric Abdi MD ? 09/25/2019 11:23 AM Large Joint Injection/Arthocentesis: L s ubacromial bursa Date/Time: 09/25/2019 9:49 AM Performed by: Eric Abdi M D Authorized by: Eric Abdi MD Indications: ??Pain Needle Size: ??25 G Guidance: landmark guided ?? Approach: ??Posterolateral Location: ??Shoulder Site: ??L subacromial bursa Medications: ??5 mL lidocaine 1 %; 4 mL lidocaine 1 %; 40 mg triamcinolone 40 MG/ML Outcome: ??Tolerated well, no immediate complications Procedure discussed: discussed risks, be nefits, and alternatives ?? Timeout: timeout called immediately prio r to procedure ?? Prep: patient was prepped and draped in usual sterile fashion ?? Eric Abdi MD PROCEDURE/MINOR SURGICAL ORD ERABLES documented in this encounter Visit Diagnoses Diagnosis Trigger thumb, right thumb - Primary Multiple joint pain Pain in joint, multiple sites H/O vitamin D deficiency Personal history of nutritional deficien cy Body mass index (BMI) 35.0-35.9, adult Rotator cuff syndrome of left shoulder Disorders of bursae and tendons in shoul barrera region, unspecified documented in this encounter Administered Medications Active Administered Medications - up to 3 most recent administrations Medication Order MAR Action Action Date Dose Rate Site lidocaine 1 % injection 0.5 mL Given 09/25/2019 9:49 AM CDT 0.5 mLs 0.5 mL, Starting on Mon09/25/19 at 0949 lidocaine 1 % injection 4 mL Given 09/25/2019 9:49 AM CDT 4 mLs 4 mL, Starting on Mon09/25/19 at 0949 lidocaine 1 % injection 5 mL Given 09/25/2019 9:49 AM CDT 5 mLs 5 mL, Starting on Mon09/25/19 at 0949 triamcinolone (KENALOG-40) injection 20 mg Given 09/25/2019 9:49 AM CDT 20 mg 20 mg, Starting on Mon09/25/19 at 0949 triamcinolone (KENALOG-40) injection 40 mg Given 09/25/2019 9:49 AM CDT 40 mg 40 mg, Starting on Mon09/25/19 at 0949 documented in this encounter Additional Health Concerns Assessment Noted Time PHQ-9 Depression Total Score: 8 01/07/2019 2:02 PM CDT documented as of this encounter Care Teams Running Specialist Relationship Specialty Start Date End Date Krystin Christie APRN WHARF TENDER HELPER PCP - General Nurse Practitioner 09/18/[address] [place] [address] RUPESH BAPTISTE [address] Krystin Christie APRN CNP Assigned PCP 08/26/18 01/28/[address] [place] [address] RUP[place] BAPTISTE [id number] documented as of this encounter
--- OUTSIDE RECORDS SUMMARY | 2022-05-09 10:59 | XMS_ITS | Encounter Summary ---
:1955 Author Organization [facility] Address [address] [facility] [place] [address] Care Team Providers Name Role Phone Tali Vilchis MD Unavailable Anat Fuller MD Unavailable [phone] Janny Hutton PA-C Unavailable [phone] Krystin Christie OPTICAL MECHANIC APPRENTICE STRATEGIC PROCUREMENT MANAGER Primary Care Provider Krystin Christie APRN STRATEGIC PROCUREMENT MANAGER Unavailable [phone] Sonja Tinajero [facility] Unavailable [phone] Eduin Wilhelm Unavailable Unavailable Cecilia Aleman MD Unavailable [phone] Thalia Glass MD Unavailable Vinita Linares RN Unavailable Unavailable Reason for Visit Reason Onset Date Comments Pre Visit Planning - Done 08/26/2019 Return-Cysto Encounter Details Date Type Department Care Team Description 08/26/2019 PRE VISIT [facility] Urology and Cecilia Aleman Pre V isit Planning - Inst for Prostate and MD Lyly Done (Return-Cysto) Urologic Cancers [address] [facility] [address] [facility] [address] [place], [place] [address] [phone] Social History Tobacco Use Types Packs/Day Years Used Date Smoking Tobacco: Never Smokeless Tobacco: Never Alcohol Use Standard Drinks/Week Comments No 0 (1 standard drink = 0.6 oz pure alcoho l) Sex Assigned at Date Recorded Female 08/17/2018 10:39 PM BILLIARD PARLOR MANAGER documented as of this encounter Miscellaneous Notes Telephone Encounter - Thomas Linares EMT - 08/26/2019 4:21 PM CST Chief Complaint : Return-Cysto Hx/Sx: Stones/Gross hematuria Records/Orders: LithoLink review next month Pt Contacted: n/a At Rooming: Urine IARD PARLOR MANAGER documented in this encounter Plan of Treatment Upcoming Encounters Date Type Specialty Care Team Description 05/19/2022 Office Visit ENT Dima Hidalgo M D [address] [facility] [place], [place] [address] (Wo rk) 08/02/2022 Office Visit Neurology Yair Campos MD [address] [facility] [address] [place], [place] [address] (Wo rk) documented as of this encounter Visit Diagnoses Not on filedocumented in this encounter Additional Health Concerns Assessment Noted Time PHQ-9 Depression Total Score: 8 01/07/2019 2:02 PM CDT documented as of this encounter Care Teams Scarf Gluer Relationship Specialty Start Date End Date Krystin Christie PCP - General Nurse Practitioner 12/15/17 09/08/19 SAURABH Engel [facility] [address] [facility] [place] [id number] Tali Vilchis MD INTERNAL MEDICINE - 04/10/15 ENDOCRINOLOGY, DIABETES [address] [facility] [address] [place], [place] [address] Anat Fuller MD Internal Medicine 04/10/1509/16 MD Renee [address] [facility] [address] [place], [place] [address] Janny Hutton Physician Band Saw Filer Physician Band Saw Filer 06/30/15 09/17/19 CARLA Mckeon [address] [facility] [address] [place] [address] Krystin Christie Assigned PCP 08/26/18 01/28/21 SAURABH Engel STRATEGIC PROCUREMENT MANAGER [address] [facility] [address] Sonja Tinajero Pharmacist Pharmacist 12/24/18 09/17/19 Dev, [facility] [address] [place] [address] Eduin Wilhelm Personal Advocate & 06/17/19 09/17/19 Liaison (PAL) Cecilia Aleman MD Urology 07/22/19 09/17/19 MD Lyly [address] [facility] [address] [facility] [address] [place] [address] Joan Monroe MD Obstetrics 07/22/19 09/17/19 Thalia Engel MD [address] [facility] [place] [address] Vinita Linares, MIKE Registered Nurse 07/22/19 09/17/19 documented as of this encounter
--- OUTSIDE RECORDS SUMMARY | 2022-05-09 10:59 | XMS_ITS | Encounter Summary ---
:1955 Author Organization [place] Address [facility] [place] [address] Care Team Providers Name Role Phone Tali Vilchis MD Unavailable Anat Fuller MD Unavailable [phone] Janny Hutton PA-C Unavailable [phone] Krystin Christie SOFTWARE ENGINEER SALES INSTRUCTOR [place] Primary Care Provider Krystin Christie APRN INSTRUCTOR [place] Unavailable [phone] Sonja Tinajero [facility] Unavailable [phone] Eduin Wilhelm Unavailable Unavailable Cecilia Aleman MD Unavailable [phone] Thalia Glass MD Unavailable Vinita Linares RN Unavailable Unavailable Encounter Details Date Type Department Care Team Description 08/16/2019 Travel Social History Tobacco Use Types Packs/Day Years Used Date Smoking Tobacco: Never Smokeless Tobacco: Never Alcohol Use Standard Drinks/Week Comments No 0 (1 standard drink = 0.6 oz pure alcoho l) Sex Assigned at Date Recorded Female 08/17/2018 10:39 PM PROC TECH documented as of this encounter Plan of Treatment Upcoming Encounters Date Type Specialty Care Team Description 05/19/2022 Office Visit ENT Dima Hidalgo M D [address] [address] (Wo rk) 08/02/2022 Office Visit Neurology Yair Campos MD [address] [place], [place] [address] (Wo rk) documented as of this encounter Visit Diagnoses Not on filedocumented in this encounter Additional Health Concerns Assessment Noted Time PHQ-9 Depression Total Score: 8 01/07/2019 2:02 PM CDT documented as of this encounter Care Teams Associate Buyer Relationship Specialty Start Date End Date Krystin Christie PCP - General Nurse Practitioner 12/15/17 09/08/19 SAURABH Engel INSTRUCTOR KINDERGARTEN [address] [facility] [place] [phone] Tali Vilchis MD INTERNAL MEDICINE - 04/10/15 ENDOCRINOLOGY, DIABETES 420 [facility] EMERGENC[facility]PART[facility] & METABOLISM [address] [place], [place] [address] Anat Fuller MD Internal Medicine 04/10/1509/16 MD Renee [address] [facility] [address] [place] [address] Janny Hutton Physician Calendar Control Clerk Blood Bank Physician Calendar Control Clerk Blood Bank 06/30/15 09/17/19 CARLA Mckeon 420 [facility] EMERGENCY DEPARTMENT 803 [place] [address] Krystin Christie Assigned PCP 08/26/18 01/28/21 SAURABH Engel INSTRUCTOR KINDERGARTEN [address] [facility] [place] [id number] Sonja Tinajero Pharmacist Pharmacist 12/24/18 09/17/19 Dev [facility] [address] [facility] [address] [place] [id number] Eduin Wilhelm Personal Advocate & 06/17/19 09/17/19 Liaison (PAL) Cecilia Aleman MD Urology 07/22/19 09/17/19 MD Lyly 420 [facility] 394 [place] [address] Joan Monroe MD Obstetrics 07/22/19 09/17/19 Thalia Engel MD [address] [facility] [address] [place] [address] Vinita Linares RN Registered Nurse 07/22/19 09/17/19 documented as of this encounter
--- OUTSIDE RECORDS SUMMARY | 2022-05-09 11:00 | XMS_ITS | Encounter Summary ---
:1955 Author Organization [place] Address [facility]0 [facility] [place] [address] Care Team Providers Name Role Phone Tali Vilchis MD Unavailable Anat Fuller MD Unavailable [phone] Janny Hutton PA-C Unavailable [phone] Krystin Christie APRN NIGHTCLUB MANAGER Primary Care Provider Krystin Christie APRN NIGHTCLUB MANAGER Unavailable [phone] Sonja Tinajero [facility] Unavailable [phone] Kelly De Oliveira [facility] Unavailable Encounter Details Date Type Department Care Team Description 05/31/2019 Travel Social History Tobacco Use Types Packs/Day Years Used Date Smoking Tobacco: Never Smokeless Tobacco: Never Alcohol Use Standard Drinks/Week Comments No 0 (1 standard drink = 0.6 oz pure alcoho l) Sex Assigned at Date Recorded Female 08/17/2018 10:39 PM VACCINATOR documented as of this encounter Plan of Treatment Upcoming Encounters Date Type Specialty Care Team Description 05/19/2022 Office Visit ENT Dima Hidalgo M D [address] [place] [address] (Wo rk) 08/02/2022 Office Visit Neurology Yair Campos MD [address] [place] [address] [place] [address] (Wo rk) documented as of this encounter Visit Diagnoses Not on filedocumented in this encounter Additional Health Concerns Assessment Noted Time PHQ-9 Depression Total Score: 8 01/07/2019 2:02 PM CDT documented as of this encounter Care Teams Packager Hand Relationship Specialty Start Date End Date Krystin Christie PCP - General Nurse Practitioner 12/15/17 09/08/19 SAURABH Engel NIGHTCLUB MANAGER [address] [facility] [place] [address] Tali Vilchis MD INTERNAL MEDICINE - 04/10/15 ENDOCRINOLOGY, DIABETES [address] [place] [address] & METABOLISM [address] [place], [place] [address] Anat Fuller MD Internal Medicine 04/10/1509/16 MD Renee [address] [place], [place] [address] Janny Hutton Physician Material Distributor Physician Material Distributor 06/30/15 09/17/19 CARLA Mckeon 420 [facility] MMC [address] [place], [place] [address] Krystin Christie Assigned PCP 08/26/18 01/28/21 SAURABH Engel NIGHTCLUB MANAGER [address] [facility] [place] [place] [address] Sonja Tinajero Pharmacist Pharmacist 12/24/18 09/17/19 Dev [facility] [address] [place] [address] Kelly De Oliveira [facility] Pharmacist Pharmacist 01/21/19 06/24/19 [address] [place] [address] documented as of this encounter
--- OUTSIDE RECORDS SUMMARY | 2022-05-09 11:00 | XMS_ITS | Encounter Summary ---
:1955 Author Organization [place] Address [facility] [place] [address] Care Team Providers Name Role Phone Tali Vilchis MD Unavailable Anat Fuller MD Unavailable [phone] Janny Hutton PA-C Unavailable [phone] Krystin Christie APRN PUBLIC TRANSIT BUS DRIVER Primary Care Provider Krystin Christie APRN PUBLIC TRANSIT BUS DRIVER Unavailable [phone] Sonja Tinajero [facility] Unavailable [phone] Kelly De Oliveira [facility] Unavailable Encounter Details Date Type Department Care Team Description 06/10/2019 Travel Social History Tobacco Use Types Packs/Day Years Used Date Smoking Tobacco: Never Smokeless Tobacco: Never Alcohol Use Standard Drinks/Week Comments No 0 (1 standard drink = 0.6 oz pure alcoho l) Sex Assigned at Date Recorded Female 08/17/2018 10:39 PM BODY ROLLING MACHINE TENDER documented as of this encounter Plan of Treatment Upcoming Encounters Date Type Specialty Care Team Description 05/19/2022 Office Visit ENT Dima Hidalgo M D [address] [place] [address] (Wo rk) 08/02/2022 Office Visit Neurology Yair Campos MD [address] [place] [address] [place] [address] (Wo rk) documented as of this encounter Visit Diagnoses Not on filedocumented in this encounter Additional Health Concerns Assessment Noted Time PHQ-9 Depression Total Score: 8 01/07/2019 2:02 PM CDT documented as of this encounter Care Teams Voice Data Communications Engineer Relationship Specialty Start Date End Date Krystin Christie PCP - General Nurse Practitioner 12/15/17 09/08/19 SAURABH Engel PUBLIC TRANSIT BUS DRIVER [address] [facility] [place] [address] Tali Vilchis MD INTERNAL MEDICINE - 04/10/15 ENDOCRINOLOGY, DIABETES [address] [place] [address] & METABOLISM [address] [place], [place] [address] Anat Fuller MD Internal Medicine 04/10/1509/16 MD Renee [address] [place], [place] [address] Janny Hutton Physician Engagement Engineer Physician Engagement Engineer 06/30/15 09/17/19 CARLA Mckeon 420 [facility] MMC [address] [place], [place] [address] Krystin Christie Assigned PCP 08/26/18 01/28/21 SAURABH Engel PUBLIC TRANSIT BUS DRIVER [address] [facility] [place] [address] Sonja Tinajero Pharmacist Pharmacist 12/24/18 09/17/19 Dev [facility] [address] [place] [address] Kelly De Oliveira [facility] Pharmacist Pharmacist 01/21/19 06/24/19 [address] [place] [address] documented as of this encounter
--- OUTSIDE RECORDS SUMMARY | 2022-05-09 11:00 | XMS_ITS | Encounter Summary ---
:1955 Author Organization [place] Address [address] [facility] [place] [address] Care Team Providers Name Role Phone Tali Vilchis MD Unavailable Anat Fuller MD Unavailable [phone] Janny Hutton PA-C Unavailable [phone] Krystin Christie APRN PUBLIC EMPLOYMENT MEDIATOR Primary Care Provider [phone] Krystin Christie APRN PUBLIC EMPLOYMENT MEDIATOR Unavailable [phone] Sonja Tinajero [facility] Unavailable [phone] Kelly De Oliveira [facility] Unavailable Reason for Visit Reason Onset Date Comments Pre Visit Planning - Done 06/06/2019 appt 9 Encounter Details Date Type Department Care Team Description 06/06[facility] MD Renee Done (appt 06/10/2019) [address] [place] [address] [phone] (Wo rk) Social History Tobacco Use Types Packs/Day Years Used Date Smoking Tobacco: Never Smokeless Tobacco: Never Alcohol Use Standard Drinks/Week Comments No 0 (1 standard drink = 0.6 oz pure alcoho l) Sex Assigned at Date Recorded Female 08/17/2018 10:39 PM PANTS PRESSER documented as of this encounter Progress Notes Cynthia Hayward CMA - 06/06/2019 12:21 PM CST Was the patient contacted by phone and reminded of the upcoming visit? Yes Was the patient instructed to bring a current list of all medications to the appointment or instructed to bring in all medication bottles? Yes, patient verbalized understanding Was the patient instructed to arrive prior to the appointment time to have ordered labs drawn? Yes, patient verbalized understanding Were the needed lab orders placed? Yes Was lab appointment made 1 hour or more prior to visit? Yes Patient instructed to arrive early for check-in Cynthia Hayward CMA CMA 06/06/2019 12:21 PM S PRESSER documented in this encounter Plan of Treatment Upcoming Encounters Date Type Specialty Care Team Description 05/19/2022 Office Visit ENT Dima Hidalgo M D [address] [facility] [place] [address] (Wo rk) 08/02/2022 Office Visit Neurology Yair Campos MD [address] [facility] [place], [place] [address] (Wo rk) documented as of this encounter Visit Diagnoses Not on filedocumented in this encounter Additional Health Concerns Assessment Noted Time PHQ-9 Depression Total Score: 8 01/07/2019 2:02 PM CDT documented as of this encounter Care Teams Regroover Relationship Specialty Start Date End Date Krystin Christie PCP - General Nurse Practitioner 12/15/17 09/08/19 SAURABH Engel PUBLIC EMPLOYMENT MEDIATOR [address] [facility] [place] [address] Tali Vilchis MD INTERNAL MEDICINE - 04/10/15 ENDOCRINOLOGY, DIABETES 420 [facility] MMC & METABOLISM [address] [place] [address] Anat Fuller MD Internal Medicine 04/10/1509/16 MD Renee [address] [facility] [address] [place], [place] [address] Janny Hutton Physician Information Services Vice President Physician Information Services Vice President 06/30/15 09/17/19 CARLA Mckeon 420 [facility] 803 [place], [place] [address] Krystin Christie PCP 08/26/18 01/28/21 SAURABH Engel PUBLIC EMPLOYMENT MEDIATOR [address] [facility] [address] [place] [id number] Sonja Tinajero Pharmacist Pharmacist 12/24/18 09/17/19 BOB Méndez 1440 [facility] [address] [place] [id number] Kelly De Oliveira [facility] Pharmacist Pharmacist 01/21/19 06/24/19 [address] [place], [place] [address] documented as of this encounter
--- OUTSIDE RECORDS SUMMARY | 2022-05-09 11:00 | XMS_ITS | Encounter Summary ---
:1955 Author Organization [place] Address [facility]0 [facility] [address] Care Team Providers Name Role Phone Tali Vilchis MD Unavailable Anat Fuller MD Unavailable [phone] Janny Hutton PA-C Unavailable [phone] Krystin Chrsitie APRN COREMAKING SUPERVISOR Primary Care Provider [phone] Krystin Christie APRN COREMAKING SUPERVISOR Unavailable [phone] Sonja Tinajero [facility] Unavailable [phone] Eduin Wilhelm Unavailable Unavailable Reason for Referral Therapeutic Imaging/IR (Routine) - Closed Specialty Diagnoses / Procedures Referred By Contact Refer red To Contact Diagnoses NAFLD (nonalcoholic fatty liver disease) Uc Hepatology Procedures IR Liver Biopsy Percutaneous [address] [place] [address] Referral ID Status Reason Start Date Expiration Date Visits Requ ested Visits Authorized [id number] Closed 06/25/2019 06/24/2020 1 1 NCES DEAN Encounter Details Date Type Department Care Team Description 06/25/[address] [facility] Sherine Carey, NAFLD (nonalcoholic Hepatology verification rep fatty live r disease) [place] (Primary Dx) [address] [place] [address] Social History Tobacco Use Types Packs/Day Years Used Date Smoking Tobacco: Never Smokeless Tobacco: Never Alcohol Use Standard Drinks/Week Comments No 0 (1 standard drink = 0.6 oz pure alcoho l) Sex Assigned at Date Recorded Female 08/17/2018 10:39 PM SCIENCES DEAN documented as of this encounter Plan of Treatment Upcoming Encounters Date Type Specialty Care Team Description 05/19/2022 Office Visit ENT Dima Hidalgo M D [address] [facility] [place] [address] (Wo rk) 08/02/2022 Office Visit Neurology Yair Camops MD [address] [place] [address] (Wo rk) documented as of this encounter Results IR Liver Biopsy Percutaneous (07/04/2019 9:11 AM SCIENCES DEAN) Anatomical Region Laterality Modality Abdomen/Pelvis Radio Fluoroscopy Specimen (Source) Anatomical Location Collection Method / Collectio n Time Received Time / Laterality Volume Impressions 07/04/2019 2:17 PM SCIENCES DEAN IMPRESSION: Completed ultrasound-guided random [place] liver biopsy. A total of two liver cores obtained and se nt to pathology in preservative. Gelfoam in tract. No immed iate complication. CLINICAL HISTORY: VILLAREAL diagnosis - evalu ate for progression of disease. Percutaneous liver biopsy reque sted. PERFORMED BY: ??Amie Hare PA-C CONSENT: Written informed consent was ob tained and is documented in the patient record. MEDICATIONS: A 10:1 volume mixture of 1% lidocaine without epinephrine buffered with 8.4% bicarbonate solution was available for local anesthesia. NURSING: The patient was placed on fadumo nuous vital signs monitoring. Vital signs were monitored by nursing st aff under IR staff supervision. DESCRIPTION: The patient's upper abdomen and lower chest were prepped and draped in the usual sterile fashion. Color ultrasound was used to assess the subcutaneous tissues. No vess els were identified in the region of planned puncture. Under ultras ound guidance the patient's skin, subcutaneous tissue, and liver cap dayana were anesthetized. With ultrasound guidance, using a 17/18 gauge coaxial needle system, liver tissue specimens were obtained. Needle w as removed and the tract was sealed with Gelfoam pledgets. Pressure w as held the site, and then cleansed and sterile dressings applied. Images were saved throughout the procedure. COMPLICATIONS: No immediate concerns, th e patient remained stable throughout the procedure and tolerated i t well. ESTIMATED BLOOD LOSS: Minimal SPECIMENS: 2 cores sent to pathology in preservative AMIE HARE PA-C Narrative 07/04/2019 2:17 PM SCIENCES DEAN PRE-PROCEDURE DIAGNOSIS: ??VILLAREAL POST-PROCEDURE DIAGNOSIS: Same PROCEDURE: Ultrasound-guided random emigdio ve liver biopsy Procedure Note Amie Hare PA-C - 07/04/2019For matting of this note might be different from the original. PRE-PROCEDURE DIAGNOSIS: VILLAREAL POST-PROCEDURE DIAGNOSIS: Same PROCEDURE: Ultrasound-guided random emigdio ve liver biopsy IMPRESSION: Completed ultrasound-guided random [place] liver biopsy. A total of two liver cores obtained and se nt to pathology in preservative. Gelfoam in tract. No immed iate complication. CLINICAL HISTORY: VILLAREAL diagnosis - evalu ate for progression of disease. Percutaneous liver biopsy reque sted. PERFORMED BY: Amie Hare PA-C CONSENT: Written informed consent was ob tained and is documented in the patient record. MEDICATIONS: A 10:1 volume mixture of 1% lidocaine without epinephrine buffered with 8.4% bicarbonate solution was available for local anesthesia. NURSING: The patient was placed on fadumo nuous vital signs monitoring. Vital signs were monitored by nursing st aff under IR staff supervision. DESCRIPTION: The patient's upper abdomen and lower chest were prepped and draped in the usual sterile fashion. Color ultrasound was used to assess the subcutaneous tissues. No vess els were identified in the region of planned puncture. Under ultras ound guidance the patient's skin, subcutaneous tissue, and liver cap dayana were anesthetized. With ultrasound guidance, using a 17/18 gauge coaxial needle system, liver tissue specimens were obtained. Needle w as removed and the tract was sealed with Gelfoam pledgets. Pressure w as held the site, and then cleansed and sterile dressings applied. Images were saved throughout the procedure. COMPLICATIONS: No immediate concerns, th e patient remained stable throughout the procedure and tolerated i t well. ESTIMATED BLOOD LOSS: Minimal SPECIMENS: 2 cores sent to pathology in preservative AMIE HARE PA-C Anat Fuller MD IMG IR ORDERABLES documented in this encounter Visit Diagnoses Diagnosis NAFLD (nonalcoholic fatty liver disease) - Primary Other chronic nonalcoholic liver disease NAFLD (nonalcoholic fatty liver disease) Other chronic nonalcoholic liver disease documented in this encounter Additional Health Concerns Assessment Noted Time PHQ-9 Depression Total Score: 8 01/07/2019 2:02 PM CDT documented as of this encounter Care Teams Ink Jet Operator Relationship Specialty Start Date End Date Krystin Christie PCP - General Nurse Practitioner 12/15/17 09/08/19 SAURABH Engel COREMAKING SUPERVISOR [address] [facility] [place] [address] Tali Vilchis MD INTERNAL MEDICINE - 04/10/15 ENDOCRINOLOGY, DIABETES 420 [facility] MMC & METABOLISM [address] [place] [place], [place] [address] Anat Fuller MD Internal Medicine 04/10/1509/16 MD Renee [address] [facility] [address] [place] [address] Janny Hutton Physician Vacation Guide Physician Vacation Guide 06/30/15 09/17/19 CARLA Mckeon 420 [facility] MMC [address] [place] [address] Krystin Christie Assigned PCP 08/26/18 01/28/21 SAURABH Engel COREMAKING SUPERVISOR [address] [facility] [place] [place] [address] Sonja Tinajero Pharmacist Pharmacist 12/24/18 09/17/19 Dev [facility] [address] [id number] Eduin Wilhelm Personal Advocate & 06/17/19 09/17/19 Liaison (PAL) documented as of this encounter
--- OUTSIDE RECORDS SUMMARY | 2022-05-09 11:00 | XMS_ITS | Encounter Summary ---
:1955 Author Organization [place] Address [address] [facility] [address] Care Team Providers Name Role Phone Tali Vilchis MD Unavailable Anat Fuller MD Unavailable [phone] Janny Hutton PA-C Unavailable [phone] Krystin Christie APRN OIL WELL CABLE TOOL DRILLER Primary Care Provider Krystin Christie APRN OIL WELL CABLE TOOL DRILLER Unavailable [phone] Sonja Tinajero [facility] Unavailable [phone] Eduin Wilhelm Unavailable Unavailable Encounter Details Date Type Department Care Team Description 07/04/2019 Anesthesia Event [facility] Surgery and Estefani Cardoso, DO [address] [facility] [address] [place], [place] [id number] Procedure Center Eduin Perea MD [facility] [address] [place], [place] [address] [address] [facility] 5th [place] [address] Anesthesia Record Procedure Summary Procedure Name Responsible Anesthesia Start Anesthesia Stop Anesthesiologist Time Time Percutaneous Liver Biopsy (Right: Abdomen) Events No events on file. No medications on file. Agents No agents on file. Blood No blood administrations on file. Lines, Drains, and Airways Type Details Placement Removal Incision/Surgical Site 07/04/19; 0857; Right; 07/04/19 0857 by Abdomen; Incision Lauren Mcqueen RN Peripheral IV 07/04/19; 0830; 20 G; 07/04/19 0830 by 07/04/19 1236 by Right; Hand; Dara Faustin RN Lippert, Bill skinny Chlorhexidine; None Peripheral IV 11/23/21; 2238; 20 G; 11/23/21 2238 by 11/24/21 1204 by Right, Posterior; Mishel Cannon, MIKE Morgan, Kaitlynn onur Hand; Tolerated well documented in this encounter Social History Tobacco Use Types Packs/Day Years Used Date Smoking Tobacco: Never Smokeless Tobacco: Never Alcohol Use Standard Drinks/Week Comments No 0 (1 standard drink = 0.6 oz pure alcoho l) Sex Assigned at Date Recorded Female 08/17/2018 10:39 PM BUS DRIVER documented as of this encounter OR Notes Anesthesia Preprocedure Evaluation - Marvin Cardoso, - 07/04/2019 8:00 AM CST Anesthesia Pre-Procedure Evaluation Patient: Becki Mackey [facility] Gender: female Age: [age] year old : 1955 Preoperative Diagnosis: Fatty liver [K76.0] Procedure(s): Percutaneous Liver Biopsy Past Medical History: Diagnosis Date ??? Angioedema ??? Arthritis ??? Asthma ??? Blood transfusion ??? Depression ??? DM2 (diabetes mellitus, type 2) (H) ??? Hypertension ??? Lower extremity edema ??? VILLAREAL (nonalcoholic steatohepatitis) ??? Restless legs syndrome ??? Restrictive lung disease ??? Sleep apnea ??? Subclinical hypothyroidism 2009 Past Surgical History: Procedure Laterality Date ??? BIOPSY 2011 liver ??? COLONOSCOPY age 52 [place] results Anesthesia Evaluation . Pt has had prior anesthetic. No history of anesthetic complications ROS/MED HX ENT/Pulmonary: (+)sleep apnea, asthma , . . (-) tobacco use Neurologic: - neg neurologic ROS Cardiovascular: (+) hypertension----. : . . . :. . Previous cardiac testing date:results:date: results:ECG reviewed date: results:NSR date: results: METS/Exercise Tolerance: >4 METS Hematologic: - neg hematologic ROS Musculoskeletal: (+) arthritis, - GI/Hepatic: (+) hepatitis (VILLAREAL) type Other, liver disease, Renal/Genitourinary: - ROS Renal section negative Endo: - neg endo ROS (+) type II DM Last HgA1c: 8.4 Diabetic complications: gastroparesis, thyroid problem hypothyroidism, Obesity, . Psychiatric: (+) psychiatric history depression Infectious Disease: - neg infectious disease ROS Malignancy: - no malignancy Other: - neg other ROS PHYSICAL EXAM: Mental Status/Neuro: A/A/O Airway: Facies: Feasible Mallampati: I Mouth/Opening: Full TM distance: > 6 cm Neck ROM: Full Respiratory: Auscultation: CTAB Resp. Rate: Normal Resp. Effort: Normal CV: Rhythm: Regular Rate: Age appropriate Heart: Normal Sounds Edema: None Comments: Dental: Normal Dentition LABS: CBC: Lab Results Component Value Date WBC 6.9 06/10/2019 WBC 7.9 06/09/2019 HGB 13.8 06/10/2019 HGB 14.1 06/09/2019 HCT 42.1 06/10/2019 HCT 41.5 06/09/2019 PLT 214 06/10/2019 PLT 218 06/09/2019 BMP: Lab Results Component Value Date NA 137 06/10/2019 NA 134 06/09/2019 POTASSIUM 4.2 06/10/2019 POTASSIUM 4.2 06/09/2019 CHLORIDE 108 06/10/2019 CHLORIDE 103 06/09/2019 CO2 25 06/10/2019 CO2 27 06/09/2019 BUN 9 06/10/2019 BUN 11 06/09/2019 CR 0.54 06/10/2019 CR 0.56 06/09/2019 GLC 256 (H) 06/10/2019 GLC 263 (H) 06/09/2019 COAGS: Lab Results Component Value Date PTT 26 11/10/2010 INR 1.00 06/10/2019 POC: Lab Results Component Value Date BGM 158 (H) 09/10/2018 OTHER: Lab Results Component Value Date PH 7.45 09/09/2018 LACT 2.0 03/30/2017 A1C 8.4 (H) 05/03/2019 JOSIAH 8.6 06/10/2019 ALBUMIN 3.4 06/10/2019 PROTTOTAL 7.2 06/10/2019 ALT 82 (H) 06/10/2019 AST 32 06/10/2019 ALKPHOS 78 06/10/2019 BILITOTAL 0.4 06/10/2019 LIPASE 225 06/09/2019 TSH 6.70 (H) 05/03/2019 T4 1.20 05/03/2019 T3 138 11/13/2006 CRP 11.0 (H) 05/08/2019 SED 11 05/08/2019 Preop Vitals BP Readings from Last 3 Encounters: 07/04/19 130/78 06/10/19 130/79 06/09/19 (!) 151/90 Pulse Readings from Last 3 Encounters: 07/04/19 76 06/10/19 80 06/09/19 89 Resp Readings from Last 3 Encounters: 07/04/19 16 06/10/19 18 06/09/19 17 SpO2 Readings from Last 3 Encounters: 07/04/19 94% 06/10/19 95% 06/09/19 98% Temp Readings from Last 1 Encounters: 07/04/19 36.4 ??C (97.6 ??F) (Oral) Ht Readings from Last 1 Encounters: 07/04/19 1.588 m (5' 2.5) Wt Readings from Last 1 Encounters: 07/04/19 88.5 kg (195 lb) Estimated body mass index is 35.1 kg/m?? as calculated from the following: Height as of this encounter: 1.588 m (5' 2.5). Weight as of this encounter: 88.5 kg (195 lb). LDA: Assessment: ASA SCORE: 3 H&P: History and physical reviewed and following examination; no interval change. Smoking Status: Non-Smoker/Unknown Plan: Anes. Type: General; MAC Pre-Medication: Acetaminophen Induction: IV (Standard) Airway: ETT; Oral Access/Monitoring: PIV Maintenance: Balanced Postop Plan: Postop Pain: Opioids Postop Sedation/Airway: Not planned Disposition: Outpatient PONV Management: Adult Risk Factors: Female, Non-Smoker, Postop Opioids Prevention: Ondansetron, Propofol CONSENT: Direct conversation Plan and risks discussed with: Patient Blood Products: Consent Deferred (Minimal Blood Loss) Marvin Cardoso DO DRIVER documented in this encounter Plan of Treatment Upcoming Encounters Date Type Specialty Care Team Description 05/19/2022 Office Visit [facility] M D [address] [facility] [place] [address] (Wo rk) 08/02/2022 Office Visit Neurology Yair Campos MD [address] [facility] [place] [address] (Wo rk) documented as of this encounter Visit Diagnoses Not on filedocumented in this encounter Additional Health Concerns Assessment Noted Time PHQ-9 Depression Total Score: 8 01/07/2019 2:02 PM CDT documented as of this encounter Care Teams Table And Desk Finisher Relationship Specialty Start Date End Date Krystin Christie PCP - General Nurse Practitioner 12/15/17 09/08/19 SAURABH Engel OIL WELL CABLE TOOL DRILLER [address] [facility] [place] [id number] Tali Vilchis MD INTERNAL MEDICINE - 04/10/15 ENDOCRINOLOGY, DIABETES [address] [facility] [address] [place] [address] Anat Fuller MD Internal Medicine 04/10/1509/16 MD Renee [address] [facility] [address] [place], [place] [address] Janny Hutton Physician Phlebotomy Services Technician Physician Phlebotomy Services Technician 06/30/15 09/17/19 CARLA Mckeon [address] [facility] [address] [place] [address] Krystin Christie Assigned PCP 08/26/18 01/28/21 SAURABH Engel OIL WELL CABLE TOOL DRILLER [address] [facility] [place] [id number] Sonja Tinajero Pharmacist Pharmacist 12/24/18 09/17/19 Dev [facility] [address] [facility] [place] [id number] Eduin Wilhelm Personal Advocate & 06/17/19 09/17/19 Liaison (PAL) documented as of this encounter
--- OUTSIDE RECORDS SUMMARY | 2022-05-09 11:00 | XMS_ITS | Encounter Summary ---
:1955 Author Organization [place] Address [facility] [place] [address] Care Team Providers Name Role Phone Tali Vilchis MD Unavailable Anat Fuller MD Unavailable [phone] Janny Hutton PA-C Unavailable [phone] Krystin Christie APRN FIELD DIRECTOR Primary Care Provider Krystin Christie APRN FIELD DIRECTOR Unavailable [phone] Sonja Tinajero [facility] Unavailable [phone] Kelly De Oliveira [facility] Unavailable Encounter Details Date Type Department Care Team Description 06/09/2019 Travel Social History Tobacco Use Types Packs/Day Years Used Date Smoking Tobacco: Never Smokeless Tobacco: Never Alcohol Use Standard Drinks/Week Comments No 0 (1 standard drink = 0.6 oz pure alcoho l) Sex Assigned at Date Recorded Female 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 documented as of this encounter Plan of Treatment Upcoming Encounters Date Type Specialty Care Team Description 05/19/2022 Office Visit ENT Dima Hidalgo M D [address] [place] [address] (Wo rk) 08/02/2022 Office Visit Neurology Yair Campos MD [address] [place] [address] [place] [address] (Wo rk) documented as of this encounter Visit Diagnoses Not on filedocumented in this encounter Additional Health Concerns Assessment Noted Time PHQ-9 Depression Total Score: 8 01/07/2019 2:02 PM CDT documented as of this encounter Care Teams Regional Sales Associate Relationship Specialty Start Date End Date Krystin Christie PCP - General Nurse Practitioner 12/15/17 09/08/19 SAURABH Engel FIELD DIRECTOR [address] [facility] [place] [address] Tali Vilchis MD INTERNAL MEDICINE - 04/10/15 ENDOCRINOLOGY, DIABETES [address] [facility] [address] [place], [place] [address] Anat Fuller MD Internal Medicine 04/10/1509/16 MD Renee [address] [place], [place] [address] Janny Hutton Physician Java Programmer Analyst Physician Java Programmer Analyst 06/30/15 09/17/19 CARLA Mckeon [address] [facility] [address] [place], [place] [address] Krystin Christie Assigned PCP 08/26/18 01/28/21 SAURABH Engel FIELD DIRECTOR [address] [facility] [place] [address] Sonja Tinajero Pharmacist Pharmacist 12/24/18 09/17/19 Dev [facility] [address] [place] [address] Kelly De Oliveira [facility] Pharmacist Pharmacist 01/21/19 06/24/19 [address] [place] [address] documented as of this encounter
--- OUTSIDE RECORDS SUMMARY | 2022-05-09 11:00 | XMS_ITS | Encounter Summary ---
:1955 Author Organization White Address [address] [facility] [place] [address] Care Team Providers Name Role Phone Tali Vilchis MD Unavailable Anat Fuller MD Unavailable [phone] Janny Hutton PA-C Unavailable [phone] Krystin Christie APRN EMAIL SPECIALIST Primary Care Provider [phone] Krystin Christie APRN EMAIL SPECIALIST Unavailable [phone] Sonja Tinajero [facility] Unavailable [phone] Kelly De Oliveira [facility] Unavailable Reason for Visit Reason Comments Flank Pain Encounter Details Date Type Department Care Team Description 06/09/2019 [facility] Rocky Batista MD Flank pain; [facility] Emergency [employer] [place], [place] [address] [place] [address] [facility] [address] [facility] [place] [address] [place] [address] [phone] Social History Tobacco Use Types Packs/Day Years Used Date Smoking Tobacco: Never Smokeless Tobacco: Never Alcohol Use Standard Drinks/Week Comments No 0 (1 standard drink = 0.6 oz pure alcoho l) Sex Assigned at Date Recorded Female 08/17/2018 10:39 PM AIRPORT RAMP ATTENDANT documented as of this encounter Last Filed Vital Signs Vital Sign Reading Time Taken Comments Blood Pressure 151/90 06/09/2019 7:10 PM AIRPORT RAMP ATTENDANT Pulse 89 06/09/2019 7:08 PM AIRPORT RAMP ATTENDANT Temperature 37 ??C (98.6 ??F) 06/09/2019 7:08 PM AIRPORT RAMP ATTENDANT Respiratory Rate 17 06/09/2019 7:08 PM AIRPORT RAMP ATTENDANT Oxygen Saturation 98% 06/09/2019 7:48 PM AIRPORT RAMP ATTENDANT Inhaled Oxygen Concentration - - Weight - - Height - - Body Mass Index - - documented in this encounter Discharge Instructions AttachmentsThe following attachments cannot be sent through Care Everywhere. Abdominal Pain, Unknown Cause, (Female) (Macedonian)documented in this encounter Medications at Time of Discharge Medication Sig Dispensed Refills Start Date End Date diclofenac (VOLTAREN) 1 Place 4 g onto the 100 g 1 04/17 % topical skin 4 times daily as gelIndications: needed for moderate Arthralgia, unspecified pain joint EPINEPHrine (EPIPEN) Inject 0.3 mg into 0 0.3 MG/0.3ML injection the muscle once as needed. 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, without long-term current use of insulin (H) Vitamin D, Take 1,000 Units by 0 Cholecalciferol, 1000 mouth daily units TABS albuterol (PROAIR Inhale 2 puffs into 0 10/01/2019 HFA/PROVENTIL the lungs every 6 HFA/VENTOLIN HFA) 108 hours as needed (90 Base) MCG/ACT inhaler blood glucose 1 strip by In Vitro 200 strip 1 12/27/2018 (ACCU-CHEK ANNIE PLUS) route daily test stripIndications: Type 2 diabetes mellitus without complication, without long-term current use of insulin (H) blood glucose Use to test blood 200 each 3 09/29/201612/16 monitoring (JAYLENE sugar 2 times daily CONTOUR NEXT) test or as directed. stripIndications: Type 2 diabetes mellitus without complication, without long-term current use of insulin (H), Alopecia, History of corticosteroid therapy, Morbid obesity, unspecified obesity type (H) blood glucose Use to test blood 4 Box 3 09/29/201612/16 monitoring (JAYLENE sugar 2 times daily MICROLET) or as directed. lancetsIndications: Type 2 diabetes mellitus without complication, without long-term current use of insulin (H), Alopecia, History of corticosteroid therapy, Morbid obesity, unspecified obesity type (H) busPIRone (BUSPAR) 10 Take 1 tablet (10 mg) 180 tablet 0 07/08/2020 MG tabletIndications: by mouth 2 times KIERRA (generalized daily anxiety disorder) glipiZIDE (GLUCOTROL Take 2 tablets (10 180 tablet 0 019 09/23/2019 XL) 5 MG 24 hr mg) by mouth daily tabletIndications: Type 2 diabetes mellitus with complication, without long-term current use of insulin (H) ipratropium - albuterol Take 1 vial (3 mLs) 1 Box 0 10/01/2019 0.5 mg/2.5 mg/3 mL by nebulization every (DUONEB) 0.5-2.5 (3) 6 hours as needed for MG/3ML neb shortness of breath / solutionIndications: dyspnea or wheezing Mild persistent asthma with acute exacerbation levothyroxine Take 1 tablet (50 90 tablet 0 05/06/201907/17 (SYNTHROID/LEVOTHROID) mcg) by mouth daily 50 MCG tabletIndications: Subclinical hypothyroidism metFORMIN Take 3 tablets (1,500 360 tablet 0 05/07/2019 (GLUCOPHAGE-XR) 500 MG mg) by mouth daily 24 hr (with dinner) TAKE 4 tabletIndications: Type TABLETS(2000 MG) BY 2 diabetes mellitus MOUTH DAILY with complication, without long-term current use of insulin (H) STATIN NOT PRESCRIBED 1 each 2 times daily 0 12/1607/18/2019 (INTENTIONAL)Indication Please choose reason s: Type 2 diabetes not prescribed, below mellitus with complication, without long-term current use of insulin (H) documented as of this encounter ED Notes Jonna Jones RN - 06/09/2019 7:07 PM CST Flank pain since Monday night. Hx of kidney stones. ORT RAMP ATTENDANT Rocky Batista MD - 06/09/2019 7:05 PM CST History Chief Complaint: Flank pain HPI Becki F Uhls is a 64 year old female with a history of kidney stones who presents with flank pain.The patient has had right flank pain since [place] and has been drinking a lot of water to try and pass what she believes is a stone. She says the right flank pain radiates to her spine and wraps aroundto her abdomen. She believes she has passed one stone today, but the pain is getting worse at home and not controlled by ibuprofen. She denies fever or urinary symptoms. Allergies: Cipro [Quinolones] Ciprofloxacin Codeine Vicodin [Hydrocodone-Acetaminophen] Darvocet [Propoxyphene N-Apap] Pioglitazone Medications: Albuterol inhaler Buspar Glipizide Duoneb Synthroid Metformin Vitamin D Past Medical History: Diabetic gastroparesis Depression NAFLD Type 2 DM Subclinical hypothyroidism Asthma Hypertension Sleep apnea GERD Kidney stones Past Surgical History: Liver biopsy Family History: Carmen thyroiditis Depression Anxiety Dementia Hypertension Cancer Diabetes Glaucoma Lung cancer Cerebrovascular disease Social History: Smoking status: Never Alcohol use: No Drug use: No Patient presents alone. PCP: Krystin Christie Marital Status: Single Review of Systems Gastrointestinal: Positive for abdominal pain. Genitourinary: Positive for flank pain. Negative for dysuria, frequency and urgency. Musculoskeletal: Positive for back pain. All other systems reviewed and are negative. Physical Exam Physical Exam Patient Vitals for the past 24 hrs: BP Temp Pulse Resp SpO2 06/09/191947 -- -- -- -- 98 % 06/09/191909 (!) 151/90 -- -- -- -- 06/09/191907 -- 98.6 ??F (37 ??C) 89 17 99 % General: Alert and Interactive. Head: No signs of trauma. Mouth/Throat: Oropharynx is clear and moist. Eyes: Conjunctivae are normal. Pupils are equal, round, and reactive to light. Neck: Normal range of motion. No nuchal rigidity. CV: Normal rate and regular rhythm. Resp: Effort normal and breath sounds normal. No respiratory distress. GI: Soft. There is no tenderness or guarding. Right CVA tenderness. MSK: Normal range of motion. no edema. Neuro: The patient is alert and oriented to person, place, and time. PERRLA, EOMI, strength in upper/lower extremities normal and symmetrical. Sensation normal. Speech normal. GCS eye subscore is 4. GCS verbal subscore is 5. GCS motor subscore is 6. Skin: Skin is warm and dry. No rash noted. Psych: normal mood and affect. behavior is normal. Emergency Department Course Imaging: Radiographic findings were communicated with the patient who voiced understanding of the findings. CT-scan Abdomen/Pelvis w/o contrast: 1. No radiodense kidney stones or hydronephrosis in either kidney. 2. Small hiatal hernia. Result per radiology US Abdomen Limited: FINDINGS: Gallbladder: Normal with no cholelithiasis, wall thickening or focal tenderness. Bile ducts: CHD is normal diameter. No intrahepatic biliary dilatation. Liver: The liver demonstrates mild increased hepatic echogenicity. No focal hepatic mass. Pancreas: Partially obscured by overlying bowel gas, but grossly unremarkable. Right kidney: Normal. Aorta and IVC: Not specifically assessed. IMPRESSION: Mild hepatic steatosis. No focal hepatic mass. Result per radiology. Laboratory: CBC: WBC 7.9, HGB 14.1, PLT 218 CMP: Glucose 263 (H), ALT 95 (H), AST 57 (H), o/w WNL (Creatinine 0.56) Lipase: 225 UA: glucose >1000, o/w Negative (midstream) Interventions: 1937 - NS 1 L IV Bolus 1938 - Toradol 15 mg IV 1938 - Benadryl 50 mg IV Medications 0.9% sodium chloride BOLUS (1,000 mLs Intravenous New Bag 06/09/191937) Followed by sodium chloride 0.9% infusion (has no administration in time range) ketorolac (TORADOL) injection 15 mg (15 mg Intravenous Given 06/09/191938) diphenhydrAMINE (BENADRYL) injection 50 mg (50 mg Intravenous Given 06/09/191938) Emergency Department Course: Past medical records, nursing notes, and vitals reviewed. 1921: I performed an exam of the patient and obtained history, as documented above. IV inserted and blood drawn. This was sent to laboratory for testing, findings above. The patient was sent for a CT abdomen/pelvis while in the emergency department, findings above. The patient provided a urine sample here in the emergency department. This was sent for laboratory testing, findings above. 2049: I rechecked the patient. Explained findings to patient. The patient was sent for a ultrasound while in the emergency department, findings above. Impression & Plan Medical Decision Making: Becki Ridley is a 64 year old female who presents with right flank pain. A broad differential diagnosis was considered including diverticulitis, ureterolithiasis, tumor, colitis, cholecystitis, aneurysm, dissection, hydronephrosis, pneumonia, rib fracture, ACS, UTI, pyelonephritis amongst many other etiologies. I doubt PE given minimal risk factors, no tachycardia, no hypoxia. The workup in the ED is at this point negative. No etiology for the patients pain is found at this point and my suspicion of an intraabdominal or intrathoracic catastrophe or other worrisome etiology is very low. I will not therefore admit for serial exams and further workup. Patient is hemodynamically stable in ED. Plan is home with flank pain recheck by primary care physician or return to ED at that time. Return for fevers greater than 102, increasing pain, other new symptoms develop. Flank pain handout given. Questions were answered. Diagnosis: ICD-10-CM 1. Flank pain R10.9 2. Abdominal pain, generalized R10.84 Disposition: discharged to home. She will follow up with her PMD in the morning. Umesh Falk 06/09/2019 EMERGENCY DEPARTMENT Scribe Disclosure: I, Umesh Falk, am serving as a scribe at 7:14 PM on 06/09/2019 to document services personally performed by Rocky Batista MD based on my observations and the provider's statements to me. Rocky Batista MD 06/09/19 2807 ORT RAMP ATTENDANT documented in this encounter Plan of Treatment Upcoming Encounters Date Type Specialty Care Team Description 05/19/2022 Office Visit ENT Dima Hidalgo M D [address] [place], [place] [address] (Sarah pino) 08/02/2022 Office Visit Neurology Yair Campos MD [address] [place] [address] (Sarah pino) documented as of this encounter Procedures Procedure Name Priority Date/Time Associated Comments Diagnosis US ABDOMEN LIMITED STAT 06/09/2019 9:02 PM Res ults for this AIRPORT RAMP ATTENDANT procedure are i n the results section. ROUTINE UA WITH STAT 06/09/2019 8:34 PM Result s for this MICROSCOPIC REFLEX TO AIRPORT RAMP ATTENDANT proced ure are in CULTURE the results section. CT ABDOMEN PELVIS W/O STAT 06/09/2019 8:02 PM Results for this CONTRAST AIRPORT RAMP ATTENDANT procedure are i n the results section. CBC WITH PLATELETS & STAT 06/09/2019 7:41 PM R esults for this DIFFERENTIAL AIRPORT RAMP ATTENDANT procedure are i n the results section. TROPONIN I Routine 06/09/2019 7:41 PM Results f or this AIRPORT RAMP ATTENDANT procedure are i n the results section. LIPASE Routine 06/09/2019 7:41 PM Results f or this AIRPORT RAMP ATTENDANT procedure are i n the results section. COMPREHENSIVE STAT 06/09/2019 7:41 PM Results for this METABOLIC PANEL AIRPORT RAMP ATTENDANT procedure ar e in the results section. documented in this encounter Results US Abdomen Limited (06/09/2019 9:02 PM AIRPORT RAMP ATTENDANT) Anatomical Region Laterality Modality Abdomen/Pelvis Ultrasound Specimen (Source) Anatomical Location Collection Method / Collectio n Time Received Time / Laterality Volume Impressions 06/09/2019 9:31 PM AIRPORT RAMP ATTENDANT IMPRESSION: ??Mild hepatic steatosis. No focal hepatic mass. FAROOQ SANTOS MD Narrative 06/09/2019 9:31 PM AIRPORT RAMP ATTENDANT US ABDOMEN LIMITED ?? 06/09/2019 9:02 PM HISTORY: ??Right upper quadrant abdomina l pain. COMPARISON: CT abdomen pelvis on same da y earlier. FINDINGS: ?? Gallbladder: Normal with no cholelithias is, wall thickening or focal tenderness. ?? Bile ducts: ??CHD is normal diameter. ?? No intrahepatic biliary dilatation. Liver: The liver demonstrates mild incre ased hepatic echogenicity. No focal hepatic mass. Pancreas: ??Partially obscured by overly ing bowel gas, ??but grossly unremarkable. Right kidney: ??Normal. Aorta and IVC: ??Not specifically assess ed. Procedure Note Farooq Santos MD - 06/09/2019Forma tting of this note might be different from the original. US ABDOMEN LIMITED 06/09/2019 9:02 PM HISTORY: Right upper quadrant abdominal pain. COMPARISON: CT abdomen pelvis on same da y earlier. FINDINGS: Gallbladder: Normal with no cholelithias is, wall thickening or focal tenderness. Bile ducts: CHD is normal diameter. No i ntrahepatic biliary dilatation. Liver: The liver demonstrates mild incre ased hepatic echogenicity. No focal hepatic mass. Pancreas: Partially obscured by overlyin g bowel gas, but grossly unremarkable. Right kidney: Normal. Aorta and IVC: Not specifically assessed . IMPRESSION: Mild hepatic steatosis. No f ocal hepatic mass. FAROOQ SANTOS MD Rocky Batista MD IMG US ORDERABLES (ABNORMAL) UA with Microscopic reflex to Culture (06/09/2019 8:34 PM [facility]) [facility] Method Time Signature Color Urine Yellow 06/09/2019 [facility] 8:48 PM [facility] Appearance Urine Clear 06/09/2019 [facility] 8:48 PM [facility] Glucose Urine >1000 (A) NEG^Negat 06/09/2019 [facility] jeromy mg/dL 8:48 PM [facility] Bilirubin Urine Negative NEG^Negat 06/09/2019 [facility] jeromy 8:48 PM [facility] Ketones Urine Negative NEG^Negat 06/09/2019 [facility] jeromy mg/dL 8:48 PM [facility] Specific [place] 1.009 1.003 - 06/09/2019 [facility] Urine 1.035 8:48 PM [facility] Blood Urine Negative NEG^Negat 06/09/2019 [facility] jeromy 8:48 PM [facility] pH Urine 5.5 5.0 - 7.0 06/09/2019 [facility] pH 8:48 PM [facility] Protein Albumin Negative NEG^Negat 06/09/2019 [facility] Urine jeromy mg/dL 8:48 PM [facility] Urobilinogen Normal 0.0 - 2.0 06/09/2019 [facility] mg/dL mg/dL 8:48 PM [facility] Nitrite Urine Negative NEG^Negat 06/09/2019 [facility] jeromy 8:48 PM [facility] Leukocyte Negative NEG^Negat 06/09/2019 [facility] Esterase Urine jeromy 8:48 PM [facility] Source Midstream 06/09/2019 [facility] Urine 8:34 PM [facility] WBC Urine 1 0 - 5 06/09/2019 [facility] /HPF 8:48 PM [facility] RBC Urine <1 0 - 2 06/09/2019 [facility] /HPF 8:48 PM [facility] Bacteria Urine Few (A) NEG^Negat 06/09/2019 [facility] jeromy /HPF 8:48 PM [facility] Squamous 2 (H) 0 - 1 06/09/2019 [facility] Epithelial /HPF /HPF 8:48 PM [facility] Mucous Urine Present (A) NEG^Negat 06/09/2019 [facility] jeromy /LPF 8:48 PM [facility] Specimen (Source) Anatomical Collection Method Collection Time Re ceived Time Location / / Volume Laterality Examination of 06/09/2019 8:34 06/09/2019 8:42 midstream urine PM AIRPORT RAMP ATTENDANT PM AIRPORT RAMP ATTENDANT specimen (procedure) Rocky Batista MD LAB - URINE ORDERABLES Performing Organization Address City/State/ZIP Code Phon e Number M [facility] [address] [address] [facility] [address] [address], U [phone] CT Abdomen Pelvis w/o Contrast (06/09/2019 8:02 PM AIRPORT RAMP ATTENDANT) Anatomical Region Laterality Modality Abdomen/Pelvis, SUBRAD CT BODY, UMP CT ABDOMEN PELVIS, Computed Tomography RAD CT Specimen (Source) Anatomical Location Collection Method / Collectio n Time Received Time / Laterality Volume Impressions 06/09/2019 8:40 PM AIRPORT RAMP ATTENDANT IMPRESSION: 1. No radiodense kidney stones or hydron ephrosis in either kidney. 2. Small hiatal hernia. FAROOQ SANTOS MD Narrative 06/09/2019 8:[address] ABDOMEN PELVIS WITHOUT CONTRAST ?? 06/09/2019 8:02 PM HISTORY: Flank pain, stone disease suspe cted - right. TECHNIQUE: Noncontrast CT abdomen and pe lvis was performed. Radiation dose for this scan was reduced using aut omated exposure control, adjustment of the mA and/or kV according to patient size, or iterative reconstruction technique. COMPARISON: CT abdomen pelvis on 9. FINDINGS: Lung bases: Clear. Small hiatal hernia. Abdomen/pelvis: Right kidney: No radiodense kidney stone s or hydronephrosis. Left kidney: No radiodense kidney stones or hydronephrosis. Urinary bladder: Unremarkable. Remainder of the abdomen: Limited evalua tion of the abdominal organs due to lack of IV contrast. The unenhanc ed liver, gallbladder, spleen, pancreas and adrenal glands are unremark able. No abnormally dilated bowel loops. No si gnificant free fluid in the abdomen or pelvis. No free peritoneal or portal venous gas. Bones and soft tissues: No suspicious os seous lesion. Procedure Note Farooq Santos MD - 06/09/2019Forma tting of this note might be different from the original. CT ABDOMEN PELVIS WITHOUT CONTRAST 06/09 8:02 PM HISTORY: Flank pain, stone disease suspe cted - right. TECHNIQUE: Noncontrast CT abdomen and pe lvis was performed. Radiation dose for this scan was reduced using aut omated exposure control, adjustment of the mA and/or kV according to patient size, or iterative reconstruction technique. COMPARISON: CT abdomen pelvis on 9. FINDINGS: Lung bases: Clear. Small hiatal hernia. Abdomen/pelvis: Right kidney: No radiodense kidney stone s or hydronephrosis. Left kidney: No radiodense kidney stones or hydronephrosis. Urinary bladder: Unremarkable. Remainder of the abdomen: Limited evalua tion of the abdominal organs due to lack of IV contrast. The unenhanc ed liver, gallbladder, spleen, pancreas and adrenal glands are unremark able. No abnormally dilated bowel loops. No si gnificant free fluid in the abdomen or pelvis. No free peritoneal or portal venous gas. Bones and soft tissues: No suspicious os seous lesion. IMPRESSION: 1. No radiodense kidney stones or hydron ephrosis in either kidney. 2. Small hiatal hernia. FAROOQ SANTOS MD Rocky Batista MD IMG CT ORDERABLES Troponin I (06/09/2019 7:41 PM AIRPORT RAMP ATTENDANT) athologist Signature Troponin I ES <0.015 0.000 - 06/09/2019 [facility] 0.045 ug/L 9:18 PM AIRPORT RAMP ATTENDANT [facility] Comment: The 99th percentile for upper reference range is 0.045 ug/L. ??Troponin values in the range of 0.045 - 0.120 ug/L may b e associated with risks of adverse clinical events. Specimen Anatomical Collection Method Collection Time Receive d Time (Source) Location / / Volume Laterality 06/09/2019 7:41 PM 9 7:46 AIRPORT RAMP ATTENDANT PM AIRPORT RAMP ATTENDANT Rocky Batista MD LAB - BLOOD ORDERABLES Performing Organization Address City/State/ZIP Code Phon e Number M [facility] [address] [place] [address] [phone] [facility] [address] [place] [address], [place] [phone] Lipase (06/09/2019 7:41 PM AIRPORT RAMP ATTENDANT) athologist Signature Lipase 225 73 - 393 06/09/2019 [facility] U/L 8:48 PM [facility] Specimen Anatomical Collection Method Collection Time Receive d Time (Source) Location / / Volume Laterality 06/09/2019 7:41 PM 9 7:46 AIRPORT RAMP ATTENDANT PM AIRPORT RAMP ATTENDANT Rocky Batista MD LAB - BLOOD ORDERABLES Performing Organization Address City/[facility]/ZIP Code Phon e Number M [facility] [address] [place] [address] [phone] [facility] [address] [place] [address], [place] [phone] (ABNORMAL) Comprehensive metabolic panel (06/09/2019 7:41 PM AIRPORT RAMP ATTENDANT) P athologist Signature Sodium 134 133 - 144 06/09/2019 [facility] mmol/L 7:58 PM [facility] Potassium 4.2 3.4 - 5.3 06/09/2019 [facility] mmol/L 7:58 PM [facility] Chloride 103 94 - 109 06/09/2019 [facility] mmol/L 7:58 PM [facility] Carbon Dioxide 27 20 - 32 06/09/2019 [facility] mmol/L 8:04 PM [facility] Anion Gap 4 3 - 14 06/09/2019 [facility] mmol/L 8:04 PM [facility] Glucose 263 (H) 70 - 99 06/09/2019 [facility] mg/dL 8:04 PM [facility] Urea Nitrogen 11 7 - 30 06/09/2019 [facility] mg/dL 8:04 PM [facility] Creatinine 0.56 0.52 - 06/09/2019 [facility] 1.04 mg/dL 8:04 PM [facility] GFR Estimate >90 >60 06/09/2019 [facility] mL/min/{1. 8:04 PM [facility] 73_m2} [facility]OS[facility] Comment: Non GFR Calc Starting 07/03/2018, serum creatinine ba sed estimated GFR (eGFR) will be calculated using the [facility] Epidemiology Collaboration (CKD-EPI) equation. GFR Estimate If >90 >60 mL/min/{1.73_m2} 06/09/2019 8: 04 PM [facility] Comment: GFR Calc Starting 07/03/2018, serum creatinine ba sed estimated GFR (eGFR) will be calculated using the [facility] Epidemiology Collaboration (CKD-EPI) equation. Calcium 8.8 8.5 - 10.1 06/09/2019 8:04 PM [facility] mg/dL [facility] Bilirubin Total 0.3 0.2 - 1.3 mg/dL 06/09/2019 8:06 PM [facility] Albumin 3.6 3.4 - 5.0 g/dL 06/09/2019 8:06 PM [facility] Protein Total 7.4 6.8 - 8.8 g/dL 06/09/2019 8:06 PM [facility] Alkaline Phosphatase 73 40 - 150 U/L 06/09/2019 8:06 PM [facility] ALT 95 (H) 0 - 50 U/L 06/09/2019 8:06 PM [facility] AST 57 (H) 0 - 45 U/L 06/09/2019 8:06 PM [facility] Specimen Anatomical Collection Method Collection Time Receive d Time (Source) Location / / Volume Laterality Blood specimen 06/09/2019 7:41 PM 019 7:46 (specimen) AIRPORT RAMP ATTENDANT [facility] Rocky Batista MD LAB - BLOOD ORDERABLES Performing Organization Address City/State/ZIP Code Phon e Number M [facility] [address] [address] [facility] [address] [place] [address], [place] [phone] CBC with platelets differential (06/09/2019 7:41 PM [facility]) [facility] Method Time Signature WBC 7.9 4.0 - 06/09/2019 [facility] 11.0 7:49 PM [facility] 10e9/L [facility] RBC Count 5.03 3.8 - 5.2 06/09/2019 [facility] 10e12/L 7:49 PM [facility] Hemoglobin 14.1 11.7 - 06/09/2019 [facility] 15.7 g/dL 7:49 PM [facility] Hematocrit 41.5 35.0 - 06/09/2019 [facility] 47.0 % 7:49 PM [facility] MCV 83 78 - 100 06/09/2019 [facility] fl 7:49 PM [facility] MCH 28.0 26.5 - 06/09/2019 [facility] 33.0 pg 7:49 PM [facility] MCHC 34.0 31.5 - 06/09/2019 [facility] 36.5 g/dL 7:49 PM [facility] RDW 14.0 10.0 - 06/09/2019 [facility] 15.0 % 7:49 PM [facility] Platelet Count 218 150 - 450 06/09/2019 [facility] 10e9/L 7:49 PM [facility] Diff Method Automated 06/09/2019 [facility] Method 7:49 PM [facility] % Neutrophils 42.4 % 06/09/2019 [facility] 7:49 PM [facility] % Lymphocytes 47.8 % 06/09/2019 [facility] 7:49 PM [facility] % Monocytes 7.0 % 06/09/2019 [facility] 7:49 PM [facility] % Eosinophils 2.5 % 06/09/2019 [facility] 7:49 PM [facility] % Basophils 0.3 % 06/09/2019 [facility] 7:49 PM [facility] % Immature 0.0 % 06/09/2019 [facility] Granulocytes 7:49 PM [facility] Nucleated RBCs 0 0 /100 06/09/2019 [facility] 7:49 PM [facility] Absolute 3.3 1.6 - 8.3 06/09/2019 [facility] Neutrophil 10e9/L 7:49 PM [facility] Absolute 3.8 0.8 - 5.3 06/09/2019 [facility] Lymphocytes 10e9/L 7:49 PM [facility] Absolute 0.6 0.0 - 1.3 06/09/2019 [facility] Monocytes 10e9/L 7:49 PM [facility] Absolute 0.2 0.0 - 0.7 06/09/2019 [place] Eosinophils 10e9/L 7:49 PM [facility] Absolute 0.0 0.0 - 0.2 06/09/2019 [place] Basophils 10e9/L 7:49 PM [facility] Abs Immature 0.0 0 - 0.4 06/09/2019 [facility] Granulocytes 10e9/L 7:49 PM [facility] Absolute 0.0 06/09/2019 [place] Nucleated RBC 7:49 PM [facility] Specimen Anatomical Collection Method Collection Time Receive d Time (Source) Location / / Volume Laterality Blood specimen 06/09/2019 7:41 PM 019 7:46 (specimen) AIRPORT RAMP ATTENDANT PM AIRPORT RAMP ATTENDANT Rocky Batista MD LAB - BLOOD ORDERABLES Performing Organization Address City/State/ZIP Code Phon e Number M [facility] [address] [phone] [facility] [address] [address], [facility] [phone] documented in this encounter Visit Diagnoses Diagnosis Flank pain Abdominal pain, unspecified site Abdominal pain, generalized documented in this encounter Administered Medications Inactive Administered Medications - up to 3 most recent administrations Medication Order MAR Action Action Date Dose Rate Site 0.9% sodium chloride BOLUS New Bag 06/09/2019 7:38 PM AIRPORT RAMP ATTENDANT 1,000 mLs 1000 mL/hr Intravenous, 1,000 mL, ONCE, at 1,000 mL/hr, Administer over 1 Hours, On 06/09/19 at 1929, For 1 dose diphenhydrAMINE (BENADRYL) injection 50 mg Given 06/09/2019 7:39 PM AIRPORT RAMP ATTENDANT 50 mg 50 mg, Intravenous, ONCE, On 06/09/19 at 1929, For 1 dose, For ordered IV doses 1-50 mg, give IV Push undiluted. Give each 25mg over a minimum of 1 minute. Extend in non-emergency ketorolac (TORADOL) injection 15 mg Given 06/09/2019 7:39 PM AIRPORT RAMP ATTENDANT 15 mg 15 mg, Intravenous, ONCE, On 06/09/19 at 1929, For 1 dose, Do not give within 6 hours of Ibuprofen. Can cause pain on injection. If ordered intravenously (IV) : administer through a running maintenance fluid over 1 minute followed by a flush. If patient complains of pain on injection, may dilute 15-30 mg in 5 mL and push over 1 to 2 minutes. sodium chloride 0.9% infusion at 125 mL/hr, Intravenous, CONTINUOUS, A dminister after the bolus., Starting on 06/09/19 at 2028, Until 06/10/19 at 0002 documented in this encounter Active and Recently Administered Medications Times are shown in AIRPORT RAMP ATTENDANT. Scheduled Medication Order 06/07/2019 06/08/2019 06/09/2019 0.9% sodium chloride BOLUS (COMPLETED) 1937 (New Bag - Provider: Will Watson RN)2127 (Stopped - Provider: Will Watson, RN) Intravenous, 1,000 mL, ONCE, at 1,000 mL /hr, Administer over 1 Hours, 06/09/19 at 1929, For 1 dose diphenhydrAMINE (BENADRYL) injection 50 mg (COMPLETED) 1938 (Given - Provider: Will Watson, MIKE) 50 mg, Intravenous, ONCE, 06/09/19 a t 1928, For 1 dose, For ordered IV doses 1-50 mg, give IV Push undiluted. Give each 25mg over a minimum of 1 minute. Extend in non-emergency ketorolac (TORADOL) injection 15 mg (COMPLETED) 1938 (Given - Provider: Will Watson RN) 15 mg, Intravenous, ONCE, 06/09/19 a t 1928, For 1 dose, Do not give within 6 hours of Ibuprofen. Can cause pain on injection. If ordered intravenously (IV) : administer through a running maintenance fluid over 1 minute followed by a flush . If patient complains of pain on injection, may dilute 15-30 mg in 5 mL and push over 1 to 2 minutes. Continuous Medication Order 06/07/2019 06/08/2019 06/09/2019 sodium chloride 0.9% infusion 20 29 (Canceled Entry - Provider: Orders Generic Provider - Comment: Automatically canceled at discontinue of medication order) at 125 mL/hr, Intravenous, CONTINUOUS, A dminister after the bolus., Starting 06/09/19 at 2029, Until 06/10/19 at 0002 documented in this encounter Additional Health Concerns Assessment Noted Time PHQ-9 Depression Total Score: 8 01/07/2019 2:02 PM CDT documented as of this encounter Care Teams Day Care Assistant Relationship Specialty Start Date End Date Krystin Christie PCP - General Nurse Practitioner 12/15/17 09/08/19 SAURABH Engel EMAIL SPECIALIST [address] [facility] [address] [id number] Tali Vilchis MD INTERNAL MEDICINE - 04/10/15 ENDOCRINOLOGY, DIABETES [address] [facility] MMC & METABOLISM [address] [place], [place] [address] Anat Fuller MD Internal Medicine 04/10/1509/16 MD Renee [address] [facility] [address] [place], [place] [address] Janny Hutton Physician Supervisor Broadloom Physician Supervisor Broad[employer]om 06/30/15 09/17/19 CARLA Mckeon 420 [facility] [address] [place], [place] [address] Krystin Christie Assigned PCP 08/26/18 01/28/21 SAURABH Engel EMAIL SPECIALIST [address] [facility] [address] [place] [address] Sonja Tinajero Pharmacist Pharmacist 12/24/18 09/17/19 BOB Méndez [address] [phone] Kelly De Oliveira [facility] Pharmacist Pharmacist 01/21/19 06/24/19 [address] [place] [address] documented as of this encounter
--- OUTSIDE RECORDS SUMMARY | 2022-05-09 11:00 | XMS_ITS | Encounter Summary ---
:1955 Author Organization [place] Address [facility] [address] Care Team Providers Name Role Phone Tali Vilchis MD Unavailable Anat Fuller MD Unavailable [phone] Janny Hutton PA-C Unavailable [phone] Krystin Christie APRN SUPERVISOR TELEPHONE ANSWERING SERVICE Primary Care Provider [phone] Krystin Christie APRN SUPERVISOR TELEPHONE ANSWERING SERVICE Unavailable [phone] Sonja Tinajero [facility] Unavailable [phone] Kelly De Oliveira [facility] Unavailable Reason for Visit Reason Comments New Patient Fatty liver Encounter Details Date Type Department Care Team Description 06/10/2019 Office Visit [facility] Anat Fuller LD (nonalcoholic Hepatology Clinic MD Renee fatty liver disease) [address] PWB (Primary Dx) [address] [facility] [address] [place] [address] [phone] (Wo rk) Social History Tobacco Use Types Packs/Day Years Used Date Smoking Tobacco: Never Smokeless Tobacco: Never Alcohol Use Standard Drinks/Week Comments No 0 (1 standard drink = 0.6 oz pure alcoho l) Sex Assigned at Date Recorded Female 08/17/2018 10:39 PM TISSUE RECOVERY TECHNICIAN documented as of this encounter Last Filed Vital Signs Vital Sign Reading Time Taken Comments Blood Pressure 130/79 06/10/2019 12:56 PM TISSUE RECOVERY TECHNICIAN Pulse 80 06/10/2019 12:56 PM TISSUE RECOVERY TECHNICIAN Temperature 36.8 ??C (98.3 ??F) 06/10/2019 12:56 PM TISSUE RECOVERY TECHNICIAN Respiratory Rate 18 06/10/2019 12:56 PM TISSUE RECOVERY TECHNICIAN Oxygen Saturation 95% 06/10/2019 12:56 PM TISSUE RECOVERY TECHNICIAN Inhaled Oxygen Concentration - - Weight 92.5 kg (204 lb) 06/10/2019 12:56 PM TISSUE RECOVERY TECHNICIAN Height 160 cm (5' 3) 06/10/2019 12:56 PM TISSUE RECOVERY TECHNICIAN Body Mass Index 36.14 06/10/2019 12:56 PM TISSUE RECOVERY TECHNICIAN documented in this encounter Progress Notes Anat Fuller MD - 06/10/2019 1:00 PM CST A/P 64 year old yo female with VILLAREAL, biopsy proven, with elevated liver tests July 2018 (ALT 278, [id number]) now back down to her usual 2-3x normal. Normal synthetic function. Unremarkable imaging. NormalCBC. Discussed fatty liver, progression, labs, imaging. Will get fibrosis scan today, although I explained to her they are difficult to rely on in fatty liver, but helpful at the extreme ends. Pending those results will determine next follow up. This was a 25 minute visit, over 50% counseling and coordination of care. Anat Fuller MD Hepatology/Liver Transplant Lacquer Pin Press Operator, Liver Transplantation [facility] S: Becki is a 64-year-old woman with nonalcoholic fatty liver disease.?? She had a liver biopsy [id number] that showed moderate steatosis and mild steatohepatitis. There was no fibrosis at that time. ??Last visit here was 07/01/16. She was in the ED yesterday for flank pain thought to be 2/2 kidney stones. She had some bloating and she was seen by [facility]. She had testing and was given a diagnosis of delayedgastric emptying. She also saw someone at [facility] for her elevated liver enzymes when her transaminaseswent up to over 200 in July 2018. Concomitantly, her lipase was 700. Imaging showed nl biliary tree (US and CT, nor MR). She has been doing ok since. Liver tests came down to her baseline from the last few years. Liver function has remained normal throughout. ? She has struggled with her weight for a long time.?? SHe is trying to get better control of her diabetes. Mother was recently diagnosed with metastatic lung cancer. Sister has a diagnosis of bladder cancer at age 69. Liver Function Studies - Recent Labs Lab Test 06/10/19 1221 PROTTOTAL 7.2 ALBUMIN 3.4 BILITOTAL 0.4 ALKPHOS 78 AST 32 ALT 82* CBC RESULTS: Recent Labs Lab Test 06/10/19 1221 WBC 6.9 RBC 4.98 HGB 13.8 HCT 42.1 MCV 85 MCH 27.7 MCHC 32.8 RDW 13.6 PLT 214 MELD-Na score: 6 at 06/10/2019 12:21 PM MELD score: 6 at 06/10/2019 12:21 PM Calculated from: Serum Creatinine: 0.54 mg/dL (Rounded to 1 mg/dL) at 06/10/2019 12:21 PM Serum Sodium: 137 mmol/L at 06/10/2019 12:21 PM Total Bilirubin: 0.4 mg/dL (Rounded to 1 mg/dL) at 06/10/2019 12:21 PM INR(ratio): 1.00 at 06/10/2019 12:21 PM Age: 64 years Comorbidities ETOH use DM yes no HTN yes no Hyperlipidemia yes no Obesity yes no Doing well. No new health problems. No new family history. SHx: O: There were no vitals taken for this visit. Gen: No acute distress Head: Normocephalic atraumatic Eyes: Sclera anicteric Neck: No cervical lymphadenopathy Respiratory: Clear to auscultation bilaterally, no overt wheezing or rales CV: RRR Abdomen: Soft, nontender, nondistended, normal bowel sounds Extrem: No edema Skin: No jaundice, spider angiomata or palmar erythema. No rashes. Neuro: Alert and oriented. No asterixis. MSK: Grossly Intact Psych: Normal speech, normal affect Current Outpatient Medications Medication ??? albuterol (PROAIR HFA/PROVENTIL HFA/VENTOLIN HFA) 108 (90 Base) MCG/ACT inhaler ??? blood glucose (ACCU-CHEK ANNIE PLUS) test strip ??? blood glucose monitoring (JAYLENE CONTOUR NEXT) test strip ??? blood glucose monitoring (JAYLENE MICROLET) lancets ??? busPIRone (BUSPAR) 10 MG tablet ??? diclofenac (VOLTAREN) 1 % topical gel ??? EPINEPHrine (EPIPEN 2-KITTY) 0.3 MG/0.3ML injection ??? glipiZIDE (GLUCOTROL XL) 5 MG 24 hr tablet ??? ipratropium - albuterol 0.5 mg/2.5 mg/3 mL (DUONEB) 0.5-2.5 (3) MG/3ML neb solution ??? levothyroxine (SYNTHROID/LEVOTHROID) 50 MCG tablet ??? metFORMIN (GLUCOPHAGE-XR) 500 MG 24 hr tablet ??? order for DME ??? STATIN NOT PRESCRIBED (INTENTIONAL) ??? Vitamin D, Cholecalciferol, 1000 units TABS Current Facility-Administered Medications Medication ??? triamcinolone (KENALOG-40) injection 20 mg ??? triamcinolone (KENALOG-40) injection 20 mg UE RECOVERY TECHNICIAN documented in this encounter Nursing Notes Cynthia Hayward CMA - 06/10/2019 1:00 PM CST Chief Complaint Patient presents with ??? New Patient Fatty liver Vital signs: Temp: 98.3 ??F (36.8 ??C) Temp src: Oral BP: 130/79 Pulse: 80 Resp: 18 SpO2: 95 % Height: 160 cm (5'3) Weight: 92.5 kg (204 lb) Estimated body mass index is 36.14 kg/m?? as calculated from the following: Height as of this encounter: 1.6 m (5' 3). Weight as of this encounter: 92.5 kg (204 lb). Cynhtia Hayward CMA CMA 06/10/2019 1:00 PM UE RECOVERY TECHNICIAN documented in this encounter Plan of Treatment Upcoming Encounters Date Type Specialty Care Team Description 05/19/2022 Office Visit ENT Dima Hidalgo M D [address] [place], [place] [address] (Wo rk) 08/02/2022 Office Visit Neurology Yair Campos MD [address] [facility] [place] [address] (Wo rk) documented as of this encounter Results Fibrosis Scan (In-Clinic) (06/18/2019 2:33 PM TISSUE RECOVERY TECHNICIAN) Anatomical Region Laterality Modality Other Impressions 06/18/2019 2:33 PM TISSUE RECOVERY TECHNICIAN EXAMINATION: ?? Liver Fibrosis Scan DATE OF EXAM: 06/10/2019 INDICATION: ?? Liver fibrosis assessment COMPARISON: ?? None HISTORY: ?? NALFD FINDINGS: Mean elasticity is 94.3 KPa IMPRESSION: ?? Estimated liver fibrosis is Metavir stag e F4. I have personally reviewed the examinati on and initial interpretation, and I agree with the findings. Tonie Muniz PA-C Narrative This result has an attachment that is no t available. Anat Fuller MD ULTRASOUND documented in this encounter Visit Diagnoses Diagnosis NAFLD (nonalcoholic fatty liver disease) - Primary Other chronic nonalcoholic liver disease NAFLD (nonalcoholic fatty liver disease) Other chronic nonalcoholic liver disease documented in this encounter Additional Health Concerns Assessment Noted Time PHQ-9 Depression Total Score: 8 01/07/2019 2:02 PM CDT documented as of this encounter Care Teams Egg Processing Supervisor Relationship Specialty Start Date End Date Krystin Christie PCP - General Nurse Practitioner 12/15/17 09/08/19 SAURABH Engel SUPERVISOR TELEPHONE ANSWERING SERVICE [address] [facility] [address] [id number] Tali Vilchis MD INTERNAL MEDICINE - 04/10/15 ENDOCRINOLOGY, DIABETES [address] [facility] MMC & METABOLISM [address] [place] [address] Anat Fuller MD Internal Medicine 04/10/1509/16 MD Renee 6 [facility] [address] [place] [address] Janny Hutton Physician Ply Splicer Physician Ply Splicer 06/30/15 09/17/19 CARLA Mckeon 420 [facility] 803 [place] [address] Krystin Christie Assigned PCP 08/26/18 01/28/21 SAURABH Engel SUPERVISOR TELEPHONE ANSWERING SERVICE [address] [facility] [address] [id number] Sonja Tinajero Pharmacist Pharmacist 12/24/18 09/17/19 Dev [facility] [address] [facility] [address] [address] Kelly De Oliveira, [facility] Pharmacist Pharmacist 01/21/19 06/24/19 [address] [place], [place] [id number] documented as of this encounter
--- OUTSIDE RECORDS SUMMARY | 2022-05-09 11:00 | XMS_ITS | Encounter Summary ---
:1955 Author Organization [place] Address [address] [facility] [place] [address] Care Team Providers Name Role Phone Tali Vilchis MD Unavailable Anat Fuller MD Unavailable [phone] Janny Hutton PA-C Unavailable [phone] Krystin Christie APRN [facility] Primary Care Provider [phone] Krystin Christie APRN [facility] Unavailable [phone] Sonja Tinajero [facility] Unavailable [phone] Kelly De Oliveira [facility] Unavailable Eduin Wilhelm Unavailable Unavailable Reason for Visit Reason Onset Date Comments No Show 06/17/2019 Encounter Details Date Type Department Care Team Description 06/17/2019 Office Visit [facility] Krystin Christie SHOW (P rimary Dx) Clinic Lola Engel APRN [address] [facility] [address] [facility] [address] [facility] [address] [address] [address] [place] [id number] Social History Tobacco Use Types Packs/Day Years Used Date Smoking Tobacco: Never Smokeless Tobacco: Never Alcohol Use Standard Drinks/Week Comments No 0 (1 standard drink = 0.6 oz pure alcoho l) Sex Assigned at Date Recorded Female 08/17/2018 10:39 PM SUPERVISOR TYPE PHOTOGRAPHY documented as of this encounter Progress Notes Krystin Christie APRN TENTERING MACHINE FEEDER - 06/17/2019 9:55 AM CST This patient was a no show for this scheduled appointment. RVISOR TYPE PHOTOGRAPHY documented in this encounter Plan of Treatment Upcoming Encounters Date Type Specialty Care Team Description 05/19/2022 Office Visit ENT Dima Hidalgo M D [address] [facility] [address] [place], [place] [address] (Wo rk) 08/02/2022 Office Visit Neurology Yair Campos MD [address] [facility] [address] [place], [place] [address] (Wo rk) documented as of this encounter Visit Diagnoses Diagnosis NO SHOW - Primary documented in this encounter Additional Health Concerns Assessment Noted Time PHQ-9 Depression Total Score: 8 01/07/2019 2:02 PM CDT documented as of this encounter Care Teams Multifocal Lens Inspector Relationship Specialty Start Date End Date Krystin Christie PCP - General Nurse Practitioner 12/15/17 09/08/19 SAURABH Engel TENTERING MACHINE FEEDER [address] [facility] [address] [place] [id number] Tali Vilchis MD INTERNAL MEDICINE - 04/10/15 ENDOCRINOLOGY, [address] [place] [address] DIABETES & METABOLISM [address] [place], [place] [address] Anat Fuller MD Internal Medicine 04/10/1509/16 MD Renee 516 [facility] [address] [place] [address] Janny Hutton Physician Picker Packer Physician Picker Packer 06/30/15 09/17/19 CARLA Mckeon [address] [facility] 803 [place] [address] Krystin Christie Assigned PCP 08/26/18 01/28/21 SAURABH Engel TENTERING MACHINE FEEDER [address] [facility] [place] [address] Sonja Tinajero Pharmacist Pharmacist 12/24/18 09/17/19 [facility] [address] [facility] [address] [place], [address] [id number] Kelly De Oliveira, Pharmacist Pharmacist 01/21/19 06/24/19 [facility] [address] [place] [address] Eduin Wilhelm Personal Advocate & 06/17/19 09/17/19 Liaison (PAL) documented as of this encounter
--- OUTSIDE RECORDS SUMMARY | 2022-05-09 11:00 | XMS_ITS | Encounter Summary ---
:1955 Author Organization [place] Address [facility] [address] Care Team Providers Name Role Phone Tali Vilchis MD Unavailable Anat Fuller MD Unavailable [phone] Janny Hutton PA-C Unavailable [phone] Krystin Christie COMMISSARY SUPERINTENDENT SOLAR ENERGY SALES SPECIALIST Primary Care Provider Krystin Christie APRN SOLAR ENERGY SALES SPECIALIST Unavailable [phone] Sonja Tinajero [facility] Unavailable [phone] Kelly De Oliveira [facility] Unavailable Eduin Wilhelm Unavailable Unavailable Encounter Details Date Type Department Care Team Description 06/17/2019 Travel Social History Tobacco Use Types Packs/Day Years Used Date Smoking Tobacco: Never Smokeless Tobacco: Never Alcohol Use Standard Drinks/Week Comments No 0 (1 standard drink = 0.6 oz pure alcoho l) Sex Assigned at Date Recorded Female 08/17/2018 10:39 PM ORCHID HAND documented as of this encounter Plan of Treatment Upcoming Encounters Date Type Specialty Care Team Description 05/19/2022 Office Visit ENT Dima Hidalgo M D [address] [place], [place] [address] (Wo rk) 08/02/2022 Office Visit Neurology Yair Campos MD [address] [place] [address] (Wo rk) documented as of this encounter Visit Diagnoses Not on filedocumented in this encounter Additional Health Concerns Assessment Noted Time PHQ-9 Depression Total Score: 8 01/07/2019 2:02 PM CDT documented as of this encounter Care Teams Shucker Relationship Specialty Start Date End Date Krystin Christie PCP - General Nurse Practitioner 12/15/17 09/08/19 SAURABH Engel SOLAR ENERGY SALES SPECIALIST [address] [facility] [address] [place] [address] Tali Vilchis MD INTERNAL MEDICINE - 04/10/15 ENDOCRINOLOGY, [address] [facility] DIABETES & METABOLISM [address] [place], [place] [address] Anat Fuller MD Internal Medicine 04/10/1509/16 MD Renee 516 [facility] [address] [place], [place] [address] Janny Hutton Physician Risk Assessment Consultant Physician Risk Assessment Consultant 06/30/15 09/17/19 CARLA Mckeon 420 [facility] 803 [place], [place] [address] Krystin Christie Assigned PCP 08/26/18 01/28/21 SAURABH Engel SOLAR ENERGY SALES SPECIALIST [address] [facility] [address] [place] [address] Sonja Tinajero Pharmacist Pharmacist 12/24/18 09/17/19 Dev [facility] [address] [id number] Kelly De Oliveira, Pharmacist Pharmacist 01/21/19 06/24/19 [facility] 30[address] [place] [address] Eduin Wilhelm Personal Advocate & 12/2/19 3/3/20 Liaison (PAL) documented as of this encounter
--- OUTSIDE RECORDS SUMMARY | 2022-05-09 11:00 | XMS_ITS | Encounter Summary ---
:1955 Author Organization [place] Address [facility] [place] [address] Care Team Providers Name Role Phone Tali Vilchis MD Unavailable Anat Fuller MD Unavailable [phone] Janny Hutton PA-C Unavailable [phone] Krystin Christie APRN HOME STEREO EQUIPMENT INSTALLER Primary Care Provider [phone] Krystin Christie APRN HOME STEREO EQUIPMENT INSTALLER Unavailable [phone] Sonja Tinajero [facility] Unavailable [phone] Kelly De Oliveira [facility] Unavailable Encounter Details Date Type Department Care Team Description 05/29/2019 Travel Social History Tobacco Use Types Packs/Day Years Used Date Smoking Tobacco: Never Smokeless Tobacco: Never Alcohol Use Standard Drinks/Week Comments No 0 (1 standard drink = 0.6 oz pure alcoho l) Sex Assigned at Date Recorded Female 08/17/2018 10:39 PM TANK CLEANING SUPERVISOR documented as of this encounter Plan of Treatment Upcoming Encounters Date Type Specialty Care Team Description 05/19/2022 Office Visit ENT Dima Hidalgo M D [address] [place] [address] (Wo rk) 08/02/2022 Office Visit Neurology Yair Campos MD [address] [place] [address] [place] [address] (Wo rk) documented as of this encounter Visit Diagnoses Not on filedocumented in this encounter Additional Health Concerns Assessment Noted Time PHQ-9 Depression Total Score: 8 01/07/2019 2:02 PM CDT documented as of this encounter Care Teams Restaurant Hourly Manager Relationship Specialty Start Date End Date Krystin Christie PCP - General Nurse Practitioner 12/15/17 09/08/19 SAURABH Engel HOME STEREO EQUIPMENT INSTALLER [address] [facility] [address] [place] [address] Tali Vilchis MD INTERNAL MEDICINE - 04/10/15 ENDOCRINOLOGY, DIABETES [address] METABOLISM [address] [place], [place] [address] Anat Fuller MD Internal Medicine 04/10/1509/16 MD Renee [address] [place], [place] [address] Janny Hutton Physician Music Copyist Physician Music Copyist 06/30/15 09/17/19 CARLA Mckeon [address] [facility] MMC [address]03 [place], [place] [address] Krystin Christie Assigned PCP 08/26/18 01/28/21 SAURABH Engel HOME STEREO EQUIPMENT INSTALLER [address] [facility] [address] [address] Sonja Tinajero Pharmacist Pharmacist 12/24/18 09/17/19 Dev [facility] [address] [place] [address] [address] Kelly De Oliveira [facility] Pharmacist Pharmacist 01/21/19 06/24/19 [address] [place] [address] documented as of this encounter
--- OUTSIDE RECORDS SUMMARY | 2022-05-09 11:00 | XMS_ITS | Encounter Summary ---
:1955 Author Organization [place] Address Formerly [facility], [facility] [place] [address] Care Team Providers Name Role Phone Tali Vilchis MD Unavailable Hailey Fuller MD Unavailable [phone] Janny Hutton PA-C Unavailable [phone] Krystin Christie APRN TWO WAY RADIO TECHNICIAN Primary Care Provider [phone] Krystin Chritsie APRN TWO WAY RADIO TECHNICIAN Unavailable [phone] Sonja Tinajero [facility] Unavailable [phone] Eduin Wilhelm Unavailable Unavailable Encounter Details Date Type Department Care Team Description 07/04/2019 Hospital Encounter Health Surgery and Wali Hare, Procedure Center PA-C [address] [place] [address] [address] [place], [place] [address] [phone] Social History Tobacco Use Types Packs/Day Years Used Date Smoking Tobacco: Never Smokeless Tobacco: Never Alcohol Use Standard Drinks/Week Comments No 0 (1 standard drink = 0.6 oz pure alcoho l) Sex Assigned at Date Recorded Female 08/17/2018 10:39 PM CHECK PROCESSING CLERK documented as of this encounter Last Filed Vital Signs Vital Sign Reading Time Taken Comments Blood Pressure 139/82 07/04/2019 12:20 PM CHECK PROCESSING CLERK Pulse 76 07/04/2019 7:55 AM CHECK PROCESSING CLERK Temperature 36.4 ??C (97.5 ??F) 07/04/2019 12:20 PM CHECK PROCESSING CLERK Respiratory Rate 16 07/04/2019 12:59 PM CHECK PROCESSING CLERK Oxygen Saturation 96% 07/04/2019 12:59 PM CHECK PROCESSING CLERK Inhaled Oxygen Concentration - - Weight 88.5 kg (195 lb) 07/04/2019 7:55 AM CHECK PROCESSING CLERK Height 158.8 cm (5' 2.5) 07/04/2019 7:55 AM CHECK PROCESSING CLERK Body Mass Index 35.1 07/04/2019 7:55 AM CHECK PROCESSING CLERK documented in this encounter Discharge Instructions Discharge InstructionsIrene Black RN - 07/04/2019 10:06 AM CST Images from the original note were not included. Discharge Instructions for Liver Biopsy You had a procedure called liver biopsy. A healthcare provider used a special needle to remove a small piece of tissue from your liver. A liver biopsy is ordered after other tests have shown that your liver is not working properly. You may also have a liver biopsy when liver disease is suspected. Home care Recommendations include the following: ?? If you had anesthesia, you should not drive until the day after your biopsy. ?? Remove the bandage covering the biopsy site 48 hours after the procedure. ?? Bedrest for 4 hours immediately after the procedure. ?? Don???t shower for 48 hours after the biopsy. If you wish, you may wash yourself with a sponge orwashcloth. When you are able to shower, don???t scrub the site. Gently wash the area and pat it dry. ?? Don???t lift anything heavier than 10 pounds for 3 days after the procedure, or as advised by your healthcare provider. ?? Don't do strenuous activities or exercises after the procedure. ?? Ask your healthcare provider when you can return to work. ?? Do not start taking blood thinners without clear instructions from your healthcare provider. Follow-up care Make a follow-up appointment as directed by our staff. When to call your healthcare provider Call your healthcare provider immediately if you have any of the following: ?? Bleeding from the biopsy site ?? Dizziness or lightheadedness ?? Sudden or increased shortness of breath ?? Sudden chest pain ?? Fever of 100.4??F (38.0??C) or higher, or as directed by your healthcare provider ?? Shaking chills ?? Increasing redness, tenderness, or swelling at the biopsy site ?? Drainage from the biopsy site ?? Opening of the biopsy site ?? Increasing pain, with or without activity, in the liver or belly area, or pain shooting to the right shoulder Additional Instructions: Please call our IR service for the following problems: - If the skin around the biopsy sight is swollen, reddened, painful, or has any discharge. - If you have persistent pain in biopsy sight. - If you have a fever of greater than 100.5 ??F and chills. - If you feel nauseated and just not right. [facility] Interventional Radiology (IR) [address] [place] [address] Contact Number: [phone] (IR control desk) - Monday - Monday 8:00 am - 4:30 pm After hours for urgent concerns: [phone] - After 4:30 pm Monday - Monday, Weekends and Holidays. - Ask for Interventional Radiology on-call. Someone is available 24 hours a day. - [facility] toll free number: K PROCESSING CLERK documented in this encounter Medications at Time [...] insulin (H) documented as of this encounter Procedure Notes Wali Hare PA-C - 07/04/2019 9:25 AM CSTProcedure(s): IR LIVER BIOPSY PERCUTANEOUS Pre-Procedure Diagnose(s): NAFLD (nonalcoholic fatty liver disease) Post-Procedure Diagnose(s): NAFLD (nonalcoholic fatty liver disease) Interventional Radiology Brief Post Procedure Note Procedure: IR Liver Biopsy Proceduralist: Wali Hare PA-C Carton Stenciler: Young Time Out: Prior to the start of the procedure and with procedural staff participation, I verbally confirmed the patient???s identity using two indicators, relevant allergies, that the procedure was appropriate and matched the consent or emergent situation, and that the correct equipment/implants were available. Immediately prior to starting the procedure I conducted the Time Out with the procedural staff and re-confirmed the patient???s name, procedure, and site/side. (The Joint Commission universalprotocol was followed.) Yes Sedation: None. Local Anesthestic used Findings: Completed ultrasound-guided random rampart liver biopsy. 2 passes yielded 2 cores sent to pathology in preservative. Gelfoam in tract. No immediate complication. Estimated Blood Loss: Minimal SPECIMENS: Core needle biopsy specimens sent for pathological analysis Complications: 1. None Condition: Stable Plan: Follow-up per primary team. Comments: See dictated procedure note for full details. Wali Hare PA-C K PROCESSING CLERK documented in this encounter Plan of Treatment Upcoming Encounters Date Type Specialty Care Team Description 05/19/2022 Office Visit ENT Dima Hidalgo M D [address] [place], [place] [address] (Sarah pino) 08/02/2022 Office Visit Neurology Yair Campos MD [address] [place], [place] [address] [place], [place] [address] (Sarah pino) documented as of this encounter Procedures Procedure Name Priority Date/Time Associated Comments Diagnosis SURGICAL PATHOLOGY Routine 07/04/2019 9:04 AM Res ults for this EXAM CHECK PROCESSING CLERK procedure are i n the results section. NEEDLE BIOPSY, LIVER, 07/04/2019 8:38 AM Fatty liver PERCUTANEOUS CHECK PROCESSING CLERK documented in this encounter Results Surgical pathology exam - Liver Lesion (07/04/2019 9:04 AM CHECK PROCESSING CLERK) Component Value Ref Test Analysis Performed At [facility] Range Method Time Signature Copath Report Patient Name: BECKI RIDLEY MR#: [id number] Specimen #: [id number] Collected: 07/04/2019 Received: 07/04/2019 Reported: 07/05/2019 14:09 Ordering Phy(s): HAILEY FULLER For improved result formatting, select 'View Enhanced Report Format' under Linked Documents section. SPECIMEN(S): Liver needle biopsy FINAL DIAGNOSIS: Liver, needle biopsy: - Mild steatohepatitis with non-bridging pericellular fibros is (see microscopic description) I have personally reviewed all specimens and/or slides, incl uding the listed special stains, and used them with my medical judgement to determine or confirm the final diagnosis. Electronically signed out by: Chaim Ling M.D., [facility] CLINICAL HISTORY: VILLAREAL GROSS: A: The specimen is received in formalin with proper patient identification, labeled liver biopsy. ??The specimen consists of two mota cores ranging from 1.7-2.0 cm i n length and averaging 0.1 cm in diameter. ??It is wrapped and entirely submitted in cassette A1. (Dictated by: Zoe GILL [facility] 07/04/2019 10:45 AM) MICROSCOPIC: Two core needle biopsies measuring approximately 3 cm in com bined length are received for evaluation. Trichrome stain demonstrates overall preserved architecture with moderate somewhat patchy pericellular fibrosis. Reticulin stain highlights preserved hepatic plate architecture. H&E slides show portal tracts with preserved bile ducts and vessels. The hepatic lobules s how mild macrovesicular steatosis (5%) with rare ballooned hepatocytes and minimal associated inflammation. Overall the changes are consistent with mildly active steato hepatitis corresponding to a NAFLD activity score (ROXANNE) of 2-3 (steatosis=1; ballooning=1; and inflammation=0- 1). There is moderate pericellular fibrosis without bridging fibrosis or portal fibrosis, consistent wit h VILLAREAL CRN stage 1b. The technical component of this testing was completed at the [facility], with the professional compo nent performed at the [facility], [address] [place] [address], [place] [address] ([phone]) CPT Codes: A: 07618-XZ0, 21391-HZXC, 09398-NHJN COLLECTION SITE: Client: [facility] Location: UCOR (B) Resident JJB1 Specimen Anatomical Collection Method Collection Time Receive d Time (Source) Location / / Volume Laterality Tissue specimen 07/04/2019 9:04 AM 2018 9:19 (specimen) CHECK PROCESSING CLERK AM CHECK PROCESSING CLERK Hailey Fuller MD [facility] Performing Organization Address City/State/ZIP Code Phon e Number COPATH documented in this encounter Visit Diagnoses Not on filedocumented in this encounter Administered Medications Inactive Administered Medications - up to 3 most recent administrations Medication Order MAR Action Action Date Dose Rate Site ibuprofen (ADVIL/MOTRIN) tablet Given 07/04/2019 12:12 PM CHECK PROCESSING CLERK 40 0 mg 400 mg 400 mg, Oral, EVERY 6 HOURS PRN, moderate pain, Starting on Lorena 07/04/19 at 1207 documented in this encounter Additional Health Concerns Assessment Noted Time PHQ-9 Depression Total Score: 8 01/07/2019 2:02 PM CDT documented as of this encounter Care Teams Side Show Entertainer Relationship Specialty Start Date End Date Krystin Christie PCP - General Nurse Practitioner 12/15/17 09/08/[address] RADIO TECHNICIAN [address] [place] [id number] Tali Vilchis MD INTERNAL MEDICINE - 04/10/15 ENDOCRINOLOGY, DIABETES [address] [facility] & METABOLISM [address] [place] [address] Hailey Fuller MD Internal Medicine 04/10/1509/16 MD Renee 6 [facility] [address] [place] [address] Janny Hutton Physician Carton Stenciler Physician Carton Stenciler 06/30/15 09/17/19 CARLA Mckeon 420 [facility] 803 [place], [place] [address] Krystin Christie PCP 08/26/18 01/28/[address] RADIO TECHNICIAN [address] [facility] [place] [address] Sonja Tinajero Pharmacist Pharmacist 12/24/18 09/17/19 Dev, [facility] [address] [facility] [place] [address] Eduin Wilhelm Personal Advocate & 06/17/19 09/17/19 Liaison (PAL) documented as of this encounter
--- OUTSIDE RECORDS SUMMARY | 2022-05-09 11:00 | XMS_ITS | Encounter Summary ---
:1955 Author Organization [place] Address [facility] [place] [address] Care Team Providers Name Role Phone Tali Vilchsi MD Unavailable Hailey Fuller MD Unavailable [phone] Janny Hutton PA-C Unavailable [phone] Krystin Christie APRN ASSEMBLER TYPE BAR AND SEGMENT Primary Care Provider [phone] Krystin Christie APRN ASSEMBLER TYPE BAR AND SEGMENT Unavailable [phone] Sonja Tinajero [facility] Unavailable [phone] Eduin Wilhelm Unavailable Unavailable Encounter Details Date Type Department Care Team Description 07/04/2019 Surgery [facility] Surgery and Wali Hare Percutaneous Liver Procedure Center JAIRO-Dulce Maria Biopsy [address] [place] [address] [address]th [place], [place] [address] [phone] Surgery Details Date/Time Status Location OR Service Patient Class Case Case Trauma Class Type Case? 07/04/19 Posted [facility] OR Pr 04 [employer] Worker Outpatient 8:30 AM Authorization Panel 1 Procedure LRB Anes Op Region Wound Class Commen ts Percutaneous Liver Biopsy Right Local Abdomen I-Clean Surgeon Surgeon Role Service Panel Wali Hare PA-C Primary [employer] Worker Authorization 1 documented in this encounter Social History Tobacco Use Types Packs/Day Years Used Date Smoking Tobacco: Never Smokeless Tobacco: Never Alcohol Use Standard Drinks/Week Comments No 0 (1 standard drink = 0.6 oz pure alcoho l) Sex Assigned at Date Recorded Female 08/17/2018 10:39 PM HOMOEOPATH documented as of this encounter Last Filed Vital Signs Vital Sign Reading Time Taken Comments Blood Pressure 130/76 07/04/2019 9:05 AM HOMOEOPATH Pulse 76 07/04/2019 7:55 AM HOMOEOPATH Temperature 36.4 ??C (97.6 ??F) 07/04/2019 7:55 AM HOMOEOPATH Respiratory Rate 16 07/04/2019 9:05 AM HOMOEOPATH Oxygen Saturation 97% 07/04/2019 9:05 AM HOMOEOPATH Inhaled Oxygen Concentration - - Weight 88.5 kg (195 lb) 07/04/2019 7:55 AM HOMOEOPATH Height 158.8 cm (5' 2.5) 07/04/2019 7:55 AM HOMOEOPATH Body Mass Index 35.1 07/04/2019 7:55 AM HOMOEOPATH documented in this encounter Discharge Instructions Discharge [...] you feel nauseated and just not right. [facility] Interventional Radiology (IR) [address] [place] [address] Contact Number: [phone] (IR control desk) - Monday - Monday 8:00 am - 4:30 pm After hours for urgent concerns: [phone] - After 4:30 pm Monday - Monday, Weekends and Holidays. - Ask for Interventional Radiology on-call. Someone is available 24 hours a day. - [facility] toll free number: EOPATH documented in this encounter Medications at Time [...] IR Liver Biopsy Proceduralist: Wali Hare PA-C Shoddy Mill Worker: None Time Out: Prior to the start of [...] Local Anesthestic used Findings: Completed ultrasound-guided random ione liver biopsy. 2 passes yielded 2 cores sent to pathology in preservative. Gelfoam in tract. No immediate complication. Estimated Blood Loss: Minimal SPECIMENS: Core needle biopsy specimens sent for pathological analysis Complications: 1. None Condition: Stable Plan: Follow-up per primary team. Comments: See dictated procedure note for full details. Wali Hare PA-C EOPATH documented in this encounter Plan of Treatment Upcoming Encounters Date Type Specialty Care Team Description 05/19/2022 Office Visit ENT Dima Hidalgo M D [address] [facility] [address] [place], [place] [address] (Wo rk) 08/02/2022 Office Visit Neurology Yair Campos MD [address] [place] [address] (Wo rk) documented as of this encounter Procedures Procedure Name Priority Date/Time Associated Comments Diagnosis SURGICAL PATHOLOGY Routine 07/04/2019 9:04 AM Res ults for this EXAM HOMOEOPATH procedure are i n the results section. NEEDLE BIOPSY, LIVER, 07/04/2019 8:38 AM Fatty liver PERCUTANEOUS HOMOEOPATH documented in this encounter Results Surgical pathology exam - Liver Lesion (07/04/2019 9:04 AM HOMOEOPATH) Component Value Ref Test Analysis Performed At [facility] Range Method Time Signature Copath Report Patient Name: BECKI RIDLEY MR#: [id number] Specimen #: [id number] Collected: 07/04/2019 Received: 07/04/2019 Reported: 07/05/2019 14:09 [...] Electronically signed out by: Chaim Ling M.D., [facility] CLINICAL HISTORY: VILLAREAL GROSS: A: The specimen is received in formalin with proper patient identification, labeled liver biopsy. ??The specimen consists of two mota cores ranging from 1.7-2.0 cm i n length and averaging 0.1 cm in diameter. ??It is wrapped and entirely submitted in cassette A1. (Dictated by: Zoe GILL [facility] 07/04/2019 10:45 AM) MICROSCOPIC: Two [...] of this testing was completed at the [facility], with the professional compo nent performed at the [facility], [address] [place] [address], [place] [address] ([phone]) CPT Codes: A: 94532-UD0, 67531-WBOZ, 32565-SKDK COLLECTION SITE: Client: [facility] Location: UCOR (B) Resident JJB1 Specimen Anatomical Collection Method Collection Time Receive d Time (Source) Location / / Volume Laterality Tissue specimen 07/04/2019 9:04 AM 2018 9:19 (specimen) HOMOEOPATH AM HOMOEOPATH Hailey Fuller MD [facility] Performing Organization Address City/State/ZIP Code Phon e Number COPATH documented in this encounter Visit Diagnoses Diagnosis Fatty liver Other chronic nonalcoholic liver disease documented in this encounter Administered Medications Inactive Administered Medications - up to 3 most recent administrations Medication Order MAR Action Action Date Dose Rate Site ibuprofen (ADVIL/MOTRIN) tablet Given 07/04/2019 12:12 PM HOMOEOPATH 40 0 mg 400 mg 400 mg, Oral, EVERY 6 HOURS PRN, moderate pain, Starting on Lorena 07/04/19 at 1207 lidocaine BUFFERED 1 % injection Given 07/04/2019 9:09 AM HOMOEOPATH 15 mLs PRN, Starting on Lorena 07/04/19 at 0909, Intra-procedure documented in this encounter Additional Health Concerns Assessment Noted Time PHQ-9 Depression Total Score: 8 01/07/2019 2:02 PM CDT documented as of this encounter Care Teams Biomedical Instrument Technician Relationship Specialty Start Date End Date Krystin Christie PCP - General Nurse Practitioner 12/15/17 09/08/19 SAURABH Engel ASSEMBLER TYPE BAR AND SEGMENT [address] [place] [address] Tali Vilchis MD INTERNAL MEDICINE - 04/10/15 ENDOCRINOLOGY, DIABETES [address] [facility]MC & METABOLISM [address] [place] [address] Hailey Fuller MD Internal Medicine 04/10/1509/16 MD Renee 516 [facility] [address] [place], [place] [address] Janny Hutton Physician Shoddy Mill Worker Physician Shoddy Mill Worker 06/30/15 09/17/19 CARLA Mckeon 420 [facility] 803 [place], [place] [address] Krystin Christie Assigned PCP 08/26/18 01/28/21 SAURABH Engel ASSEMBLER TYPE BAR AND SEGMENT [address] [facility] [place] [id number] Sonja Tinajero Pharmacist Pharmacist 12/24/18 09/17/19 Dev, [facility] [address] [facility] [place] [address] Eduin Wilhelm Personal Advocate & 06/17/19 09/17/19 Liaison (PAL) documented as of this encounter
--- OUTSIDE RECORDS SUMMARY | 2022-05-09 11:00 | XMS_ITS | Encounter Summary ---
:1955 Author Organization [place] Address [address] [facility] [place] [address] Care Team Providers Name Role Phone Tali Vilchis MD Unavailable Anat Fuller MD Unavailable [phone] Janny Hutton PA-C Unavailable [phone] Krystin Christie APRN MEDIA PRODUCER Primary Care Provider [phone] Krystin Christie APRN MEDIA PRODUCER Unavailable [phone] [facility] Unavailable [phone] Eduin Wilhelm Unavailable Unavailable Reason for Visit Reason Onset Date Comments Liver Biopsy 06/25/2019 Patient to schedule a Liver Biopsy Encounter Details Date Type Department Care Team Description 06/25/2019 Telephone [facility] Sherine Carey, Liver Biopsy (Patient to Hepatology animal herder schedule a Liver Biopsy) [address] [address] Social History Tobacco Use Types Packs/Day Years Used Date Smoking Tobacco: Never Smokeless Tobacco: Never Alcohol Use Standard Drinks/Week Comments No 0 (1 standard drink = 0.6 oz pure alcoho l) Sex Assigned at Date Recorded Female 08/17/2018 10:39 PM DIRECTOR INTELLIGENCE ANALYSIS PROGRAMS documented as of this encounter Miscellaneous Notes Telephone Encounter - hSerine Carey LPN - 06/25/2019 10:12 AM CST Spoke with patient and advised her that the orders for her Random Perctaneous Liver Biopsy are in and she can call IR to schedule her biopsy. Gave patient phone number to IR. Patient verbalizes understanding. Sherine Carey LPN CTOR INTELLIGENCE ANALYSIS PROGRAMS documented in this encounter Plan of Treatment Upcoming Encounters Date Type Specialty Care Team Description 05/19/2022 Office Visit ENT Dima Hidalgo M D [address] [facility] [address] [place], [place] [address] (Wo rk) 08/02/2022 Office Visit Neurology Yair Campos MD [address] [facility] [address] [place], [place] [address] (Wo rk) documented as of this encounter Visit Diagnoses Not on filedocumented in this encounter Additional Health Concerns Assessment Noted Time PHQ-9 Depression Total Score: 8 01/07/2019 2:02 PM CDT documented as of this encounter Care Teams Parking Meter Servicer Relationship Specialty Start Date End Date Krystin Christie PCP - General Nurse Practitioner 12/15/17 09/08/19 SAURABH Engel MEDIA PRODUCER [address] [facility] [address] [place] [phone] Tali Vilchis MD INTERNAL MEDICINE - 04/10/15 MD ENDOCRINOLOGY, DIABETES 420 [facility] & METABOLISM 101 [place], [place] [address] Anat Fuller MD Internal Medicine 04/10/1509/16 MD Renee [address] [place], [place] [address] Janny Hutton Physician City Bus Driver Physician City Bus Driver 06/30/15 09/17/19 CARLA Mckeon 420 [facility] 803 [place], [place] [address] Krystin Christie Assigned PCP 08/26/18 01/28/21 SAURABH Engel MEDIA PRODUCER [address] [facility] [place] [address] Sonja Tinajero Pharmacist Pharmacist 12/24/18 09/17/19 [facility] [address] [facility] [address] [place], [place] [id number] Eduin Wilhelm Personal Advocate & 06/17/19 09/17/19 Liaison (PAL) documented as of this encounter
--- OUTSIDE RECORDS SUMMARY | 2022-05-09 11:00 | XMS_ITS | Encounter Summary ---
:1955 Author Organization [place] Address [address] [facility] [place] [address] Care Team Providers Name Role Phone Tali Vilchis MD Unavailable Anat Fulelr MD Unavailable [phone] Janny Hutton PA-C Unavailable [phone] Krystin Christie APRN COMBINATION MACHINE TOOL OPERATOR Primary Care Provider Krystin Christie APRN COMBINATION MACHINE TOOL OPERATOR Unavailable [phone] Sonja Tinajero [facility] Unavailable [phone] Kelly De Oliveira [facility] Unavailable Eduin Wilhelm Unavailable Unavailable Reason for Visit Reason Onset Date Comments Panel Management 06/17/2019 pap, ACT, PHQ9 Encounter Details Date Type Department Care Team Description [facility]/17[facility]2019 [facility] Lola Engel APRN CNP ACT, PHQ9) [address] [facility] [address] [place] [address] [place] [address] [phone] Social History Tobacco Use Types Packs/Day Years Used Date Smoking Tobacco: Never Smokeless Tobacco: Never Alcohol Use Standard Drinks/Week Comments No 0 (1 standard drink = 0.6 oz pure alcoho l) Sex Assigned at Date Recorded Female 08/17/2018 10:39 PM DRAFTER TOOL DESIGN documented as of this encounter Miscellaneous Notes Telephone Encounter - Lauren Linares MA - 06/17/2019 2:22 PM CST Panel Management Review Patient has the following on her problem list: Depression / Dysthymia review Measure: Needs PHQ-9 score of 4 or less during index window. Administer PHQ-9 and if score is 5 or more, send encounter to provider for next steps. 5 - 7 month window range: PHQ-9 SCORE 12/07/2011 08/24/2018 [...] Yes 3. Patient is due for: ACT now and AAP - In Aug 2019 Composite cancer screening Chart review shows that this patient is due/due soon for the following Pap Smear Summary: Patient is due/failing the following: AAP, ACT, PAP, PHQ9 and PHYSICAL Action needed: Patient needs office visit for physical w/pap., Patient needs to do ACT. and Patient needs to do PHQ9. Type of outreach: Patient has appointment for diabetes follow up on 07/12/19. Will see if patient will do pap at that appt. Questions for provider review: None Lauren Linares CMA Chart routed to Care Team . TER TOOL DESIGN documented in this encounter Plan of Treatment Upcoming Encounters Date Type Specialty Care Team Description 05/19/2022 Office Visit ENT Dima Hidalgo M D [address] [facility] [place], [place] [address] (Wo rk) 08/02/2022 Office Visit Neurology Yair Campos MD [address] [place], [place] [address] [place] [address] (Wo rk) documented as of this encounter Visit Diagnoses Not on filedocumented in this encounter Additional Health Concerns Assessment Noted Time PHQ-9 Depression Total Score: 8 01/07/2019 2:02 PM CDT documented as of this encounter Care Teams Security Control Assessor Relationship Specialty Start Date End Date Krystin Christie PCP - General Nurse Practitioner 12/15/17 09/08/19 SAURABH Engel COMBINATION MACHINE TOOL OPERATOR [address] [facility] [place] [address] Tali Vilchis MD INTERNAL MEDICINE - 04/10/15 ENDOCRINOLOGY, [address] [facility] DIABETES & METABOLISM [address] [place] [address] Anat Fuller MD Internal Medicine 04/10/1509/[address] [facility] [address] [place] [address] Janny Hutton Physician Communications Lead Physician Communications Lead 06/30/15 09/17/19 CARLA Mckeon [address] [facility] [place] 803 [place], [place] [address] Krystin Christie Assigned PCP 08/26/18 01/28/21 SAURABH Engel COMBINATION MACHINE TOOL OPERATOR [address] [facility] [place] [address] Sonja Tinajero Pharmacist Pharmacist 12/24/18 09/17/19 Dev [facility] [address] [id number] Kelly De Oliveira, Pharmacist Pharmacist 01/21/19 06/24/19 [facility] [address] [place] [address] Eduin Wilhelm Personal Advocate & 06/17/19 09/17/19 Liaison (PAL) documented as of this encounter
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
--- OUTSIDE RECORDS SUMMARY | 2022-05-09 11:00 | XMS_ITS | Encounter Summary ---
:1955 Author Organization [place] Address [address] [facility] [place] [address] Care Team Providers Name Role Phone Tali Vilchis MD Unavailable Anat Fuller MD Unavailable [phone] Janny Hutton PA-C Unavailable [phone] Krystin Christie APRN YOUTH SERVICES SPECIALIST Primary Care Provider [phone] Krystin Christie APRN YOUTH SERVICES SPECIALIST Unavailable [phone] Sonja Tinajero [facility] Unavailable [phone] Kelly De Oliveira [facility] Unavailable Eduin Wilhelm Unavailable Unavailable Encounter Details Date Type Department Care Team Description 06/10/2019 Orders Only [facility] Spec, Nurse Only NAFLD (nonalcoholic Hepatology Clinic Med fatty live r disease) [address] [address] Social History Tobacco Use Types Packs/Day Years Used Date Smoking Tobacco: Never Smokeless Tobacco: Never Alcohol Use Standard Drinks/Week Comments No 0 (1 standard drink = 0.6 oz pure alcoho l) Sex Assigned at Date Recorded Female 08/17/2018 10:39 PM DIRECTOR PROPERTY documented as of this encounter Plan of Treatment Upcoming Encounters Date Type Specialty Care Team Description 05/19/2022 Office Visit ENT Dima Hidalgo M D [address] [facility] [place] [address] (Wo rk) 08/02/2022 Office Visit Neurology Yair Campos MD [address] [facility] [address] [place], [place] [address] (Wo rk) documented as of this encounter Procedures Procedure Name Priority Date/Time Associated Diagnosis Comme nts FIBROSIS SCAN Routine 06/18/2019 2:33 PM NAFLD (nonalcoholic R esults for this DIRECTOR PROPERTY fatty liver disease) procedu re are in the results section . documented in this encounter Results Fibrosis Scan (In-Clinic) (06/18/2019 2:33 PM DIRECTOR PROPERTY) Anatomical Region Laterality Modality Other Impressions 06/18/2019 2:33 PM DIRECTOR PROPERTY EXAMINATION: ?? Liver Fibrosis Scan DATE OF [...] Diagnoses Diagnosis NAFLD (nonalcoholic fatty liver disease) Other chronic nonalcoholic liver disease documented in this encounter Additional Health Concerns Assessment Noted Time PHQ-9 Depression Total Score: 8 01/07/2019 2:02 PM CDT documented as of this encounter Care Teams Bag Machine Set Up Operator Relationship Specialty Start Date End Date Krystin Christie PCP - General Nurse Practitioner 12/15/17 09/08/19 SAURABH Engel YOUTH SERVICES SPECIALIST [address] [facility] [place] [address] Tali Vilchis MD INTERNAL MEDICINE - 04/10/15 ENDOCRINOLOGY, [address] [place] [address] DIABETES & METABOLISM [address] [place], [place] [address] Anat Fuller MD Internal Medicine 04/10/1509/16 MD Renee [address] [facility] [address] [place], [place] [address] Janny Hutton Physician Student Liaison Officer Physician Student Liaison Officer 06/30/15 09/17/19 CARLA Mckeon [address] [facility]PARTMENT 803 [place] [address] Krystin Christie Assigned PCP 08/26/18 01/28/21 SAURABH Engel YOUTH SERVICES SPECIALIST [address] [facility] [place] [address] Sonja Tinajero Pharmacist Pharmacist 12/24/18 09/17/19 Dev, [facility] [address] [facility] [place] [address] Kelly De Oliveira, Pharmacist Pharmacist 01/21/19 06/24/19 [facility] 30[address] [place] [address] Eduin Wilhelm Personal Advocate & 06/17/19 09/17/19 Liaison (PAL) documented as of this encounter
--- OUTSIDE RECORDS SUMMARY | 2022-05-09 11:00 | XMS_ITS | Encounter Summary ---
:1955 Author Organization [place] Address [address] [facility] [place] [address] Care Team Providers Name Role Phone Tali Vilchis MD Unavailable Anat Fuller MD Unavailable [phone] Janny Hutton PA-C Unavailable [phone] Krystin Christie APRN CHEMICAL PROCESSING EQUIPMENT REPAIRER Primary Care Provider [phone] Krystin Christie APRN CHEMICAL PROCESSING EQUIPMENT REPAIRER Unavailable [phone] Sonja Tinajero [facility] Unavailable [phone] Kelly De Oliveira [facility] Unavailable Reason for Visit Reason Onset Date Comments *-*INCOMING RECORDS*-* 06/10/2019 Encounter Details Date Type Department Care Team Description 06/10/2019 PRE VISIT [facility] Anat Fuller *-* INCOMING RECORDS*-* Hepatology Clinic MD Renee [address] [place] [id number] (Wo rk) Social History Tobacco Use Types Packs/Day Years Used Date Smoking Tobacco: Never Smokeless Tobacco: Never Alcohol Use Standard Drinks/Week Comments No 0 (1 standard drink = 0.6 oz pure alcoho l) Sex Assigned at Date Recorded Female 08/17/2018 10:39 PM DOUGH MACHINE OPERATOR documented as of this encounter Miscellaneous Notes Telephone Encounter - MusaKimber Corinna - 05/03/2019 8:25 AM CDT amand RECORDS RECEIVED FROM: Internal - Last seen in 2015, follow up scheduled per pt DATE RECEIVED: 06.10.2019 NOTES STATUS DETAILS OFFICE NOTE from referring provider Internal 01.07.2019 OFFICE NOTES from other specialists Received 11.15.2018 [facility] DISCHARGE SUMMARY from hospital N/A MEDICATION LIST Internal / CE LIVER BIOSPY (IF APPLICABLE) PATHOLOGY REPORTS N/A IMAGING ENDOSCOPY (IF AVAILABLE) N/A COLONOSCOPY (IF AVAILABLE) N/A ULTRASOUND LIVER Internal 08.20.2018 CT OF ABDOMEN Internal 08.21.2018 MRI OF LIVER N/A FIBROSCAN, US ELASTOGRAPHY, FIBROSIS SCAN, MR ELASTOGRAPHY N/A LABS HEPATIC PANEL (LIVER PANEL) Internal 08.30.2018 BASIC METABOLIC PANEL Care Everywhere 11.07.2018 COMPLETE METABOLIC PANEL N/A COMPLETE BLOOD COUNT (CBC) Internal 09.09.2018 INTERNATIONAL NORMALIZED RATIO (INR) Internal 12.16.2015 HEPATITIS C ANTIBODY Internal 08.24.2018 HEPATITIS C VIRAL LOAD/PCR N/A HEPATITIS C GENOTYPE N/A HEPATITIS B SURFACE ANTIGEN Internal 08.24.2018 HEPATITIS B SURFACE ANTIBODY Internal 08.24.2018 HEPATITIS B DNA QUANT LEVEL N/A HEPATITIS B CORE ANTIBODY Internal 08.24.2018 documented in this encounter Plan of Treatment Upcoming Encounters Date Type Specialty Care Team Description 05/19/2022 Office Visit ENT Dima Hidalgo M D [address] [facility] [place], [place] [address] (Wo odette) 08/02/2022 Office Visit Neurology Yair Campos MD [address] [place] [address] (Sarah pino) documented as of this encounter Visit Diagnoses Not on filedocumented in this encounter Additional Health Concerns Assessment Noted Time PHQ-9 Depression Total Score: 8 01/07/2019 2:02 PM CDT documented as of this encounter Care Teams Bread Wrapper Relationship Specialty Start Date End Date Krystin Christie PCP - General Nurse Practitioner 12/15/17 09/08/19 SAURABH Engel CHEMICAL PROCESSING EQUIPMENT REPAIRER [address] [facility] [place] [id number] Tali Vilchis MD INTERNAL MEDICINE - 04/10/15 ENDOCRINOLOGY, DIABETES [address] [facility] & METABOLISM [address] [place], [place] [address] Anat Fuller MD Internal Medicine 04/10/1509/16 MD Renee [address] [facility] [address] [place], [place] [address] Janny Hutton Physician Time Recorder Physician Time Recorder 06/30/15 09/17/19 CARLA Mckeon [address] [facility] [address] [place], [place] [address] Krystin Christie Assigned PCP 08/26/18 01/28/21 SAURABH Engel CHEMICAL PROCESSING EQUIPMENT REPAIRER [address] [facility] [place] [address] Sonja Tinajero Pharmacist Pharmacist 12/24/18 09/17/19 Dev [facility] 14[address] [facility] [place] [id number] Kelly De Oliveira [facility] Pharmacist Pharmacist 01/21/19 06/24/19 [address] [place] [address] documented as of this encounter
--- OUTSIDE RECORDS SUMMARY | 2022-05-09 11:00 | XMS_ITS | Encounter Summary ---
:1955 Author Organization [place] Address [facility] [place] [address] Care Team Providers Name Role Phone Tali Vilchis MD Unavailable Anat Fuller MD Unavailable [phone] Janny Hutton PA-C Unavailable [phone] Krystin Christie APRN SEWING DEPARTMENT SUPERVISOR Primary Care Provider [phone] Krystin Christie APRN SEWING DEPARTMENT SUPERVISOR Unavailable [phone] Sonja Tinajero [facility] Unavailable [phone] Kelly De Oliveira [facility] Unavailable Encounter Details Date Type Department Care Team Description 06/10/2019 Orders Only M [facility] Lab Fatty liver; 9 [facility] NAFLD (nonalcoholic fatty li ariana disease); 1st Floor Type 2 diabetes mellitus wit h complication, without long-term current use of insulin (H) [place], [place] [phone] Social History Tobacco Use Types Packs/Day Years Used Date Smoking Tobacco: Never Smokeless Tobacco: Never Alcohol Use Standard Drinks/Week Comments No 0 (1 standard drink = 0.6 oz pure alcoho l) Sex Assigned at Date Recorded Female 08/17/2018 10:39 PM FURNACE FILLER documented as of this encounter Plan of Treatment Upcoming Encounters Date Type Specialty Care Team Description 05/19/2022 Office Visit ENT Dima Hidalgo M D [address] [address] (Wo rk) 08/02/2022 Office Visit Neurology Yair Campos MD [address] [place] [address] (Wo rk) documented as of this encounter Procedures Procedure Name Priority Date/Time Associated Diagnosis Comme nts INR Routine 06/10/2019 12:21 PM Fatty liver Results for this FURNACE FILLER NAFLD (nonalcoholic procedur e are in fatty liver disease) the res ults section. HEPATIC FUNCTION Routine 06/10/2019 12:21 PM Fatty liver Results for this PANEL FURNACE FILLER NAFLD (nonalcoholic procedur e are in fatty liver disease) the res ults section. BASIC METABOLIC Routine 06/10/2019 12:21 PM Fatty liver Results for this PANEL FURNACE FILLER NAFLD (nonalcoholic procedur e are in fatty liver disease) the res ults section. CBC WITH PLATELETS Routine 06/10/2019 12:21 PM Fatty alva er Results for this FURNACE FILLER NAFLD (nonalcoholic procedur e are in fatty liver disease) the res ults section. documented in this encounter Results (ABNORMAL) Basic metabolic panel (06/10/2019 12:21 PM FURNACE FILLER) Analysis Performed At Patho logist Time Signature Sodium 137 133 - 144 06/10/2019 [facility] mmol/L 12:50 PM [facility] Potassium 4.2 3.4 - 5.3 06/10/2019 [facility] mmol/L 12:50 PM [facility] Chloride 108 94 - 109 06/10/2019 [facility] mmol/L 12:50 PM [facility] Carbon Dioxide 25 20 - 32 06/10/2019 [facility] mmol/L 12:50 PM [facility] Anion Gap 4 3 - 14 06/10/2019 [facility] mmol/L 12:50 PM [facility] Glucose 256 (H) 70 - 99 06/10/2019 [facility] mg/dL 12:50 PM [facility] Urea Nitrogen 9 7 - 30 06/10/2019 [facility] mg/dL 12:50 PM [facility] Creatinine 0.54 0.52 - 06/10/2019 [facility] 1.04 mg/dL 12:50 PM [facility] GFR Estimate >90 >60 06/10/2019 [facility] mL/min/{1. 12:50 PM [facility] 73_m2} [facility] Comment: Non GFR Calc Starting 07/03/2018, serum creatinine ba sed estimated GFR (eGFR) will be calculated using the Chronic Kidney Dise [facility] Epidemiology Collaboration (CKD-EPI) equation. GFR Estimate If >90 >60 mL/min/{1.73_m2} 06/10/2019 12 :50 PM [facility] Black [facility] Comment: GFR Calc Starting 07/03/2018, serum creatinine ba sed estimated GFR (eGFR) will be calculated using the Chronic Kidney Dise [place]se Epidemiology Collaboration (CKD-EPI) equation. Calcium 8.6 8.5 - 10.1 mg/dL 06/10/2019 12:50 PM [facility] Specimen Anatomical Collection Method Collection Time Receive d Time (Source) Location / / Volume Laterality Blood specimen 06/10/2019 12:21 9 (specimen) PM FURNACE FILLER 12:22 PM FURNACE FILLER Anat Fuller MD LAB - BLOOD ORDERABLES Performing Organization Address City/State/[place] [address] [facility] CBC with platelets (06/10/2019 12:21 PM FURNACE FILLER) P athologist Signature WBC 6.9 4.0 - 11.0 06/10/2019 [facility] 10e9/L 12:27 PM [facility] RBC Count 4.98 3.8 - 5.2 06/10/2019 [facility] 10e12/L 12:27 PM [facility] Hemoglobin 13.8 11.7 - 06/10/2019 [facility] 15.7 g/dL 12:27 PM [facility] Hematocrit 42.1 35.0 - 06/10/2019 [facility] 47.0 % 12:27 PM [facility] MCV 85 78 - 100 06/10/2019 [facility] fl 12:27 PM [facility] MCH 27.7 26.5 - 06/10/2019 [facility] 33.0 pg 12:27 PM [facility] MCHC 32.8 31.5 - 06/10/2019 [facility] 36.5 g/dL 12:27 PM [facility] RDW 13.6 10.0 - 06/10/2019 [facility] 15.0 % 12:27 PM [facility] Platelet Count 214 150 - 450 06/10/2019 [facility] 10e9/L 12:27 PM [facility] Specimen Anatomical Collection Method Collection Time Receive d Time (Source) Location / / Volume Laterality Blood specimen 06/10/2019 12:21 9 (specimen) PM FURNACE FILLER 12:22 PM FURNACE FILLER Anat Fuller MD LAB - BLOOD ORDERABLES Performing Organization Address City/State/[facility] Code Phon e Number [address] [address] [facility] (ABNORMAL) Hepatic panel (06/10/2019 12:21 PM FURNACE FILLER) Analysis Performed At Patho logist Time Signature Bilirubin Direct 0.1 0.0 - 0.2 06/10/2019 [place] mg/dL 12:50 PM [facility] Bilirubin Total 0.4 0.2 - 1.3 06/10/2019 [facility] mg/dL 12:50 PM [facility] Albumin 3.4 3.4 - 5.0 06/10/2019 [facility] g/dL 12:50 PM [facility] Protein Total 7.2 6.8 - 8.8 06/10/2019 [facility] g/dL 12:50 PM [facility] Alkaline 78 40 - 150 06/10/2019 [facility] Phosphatase U/L 12:50 PM [facility] ALT 82 (H) 0 - 50 U/L 06/10/2019 [facility] 12:50 PM [facility] AST 32 0 - 45 U/L 06/10/2019 [facility] 12:50 PM [facility] Specimen Anatomical Collection Method Collection Time Receive d Time (Source) Location / / Volume Laterality Blood specimen 06/10/2019 12:21 9 (specimen) PM FURNACE FILLER 12:22 PM FURNACE FILLER Anat Fuller MD LAB - BLOOD ORDERABLES Performing Organization Address City/State/ZIP Code Phon e Number [facility] [address] [place] [address] [facility] INR (06/10/2019 12:21 PM FURNACE FILLER) P athologist Signature INR 1.00 0.86 - 1.14 06/10/2019 [facility] 12:47 PM FURNACE FILLER [facility] Specimen Anatomical Collection Method Collection Time Receive d Time (Source) Location / / Volume Laterality Blood specimen 06/10/2019 12:21 9 (specimen) PM FURNACE FILLER 12:22 PM FURNACE FILLER Anat Fuller MD LAB - BLOOD ORDERABLES Performing Organization Address City/[facility] Code Phon e Number [address] [address] [facility] documented in this encounter Visit Diagnoses Diagnosis Fatty liver Other chronic nonalcoholic liver disease NAFLD (nonalcoholic fatty liver disease) Other chronic nonalcoholic liver disease Type 2 diabetes mellitus with complicati on, without long-term current use of insulin (H) documented in this encounter Additional Health Concerns Assessment Noted Time PHQ-9 Depression Total Score: 8 01/07/2019 2:02 PM CDT documented as of this encounter Care Teams Sulfonator Operator Relationship Specialty Start Date End Date Krystin Christie PCP - General Nurse Practitioner 12/15/17 09/08/19 SAURABH Engel [facility] [address] [place] [address] Tali Vilchis MD INTERNAL MEDICINE - 04/10/15 ENDOCRINOLOGY, DIABETES [address] [facility] [address] [place], [place] [address] Anat Fuller MD Internal Medicine 04/10/1509/16 MD Renee [address] [facility] [address] [place], [place] [phone] Janny Hutton Physician Integrated Circuit Ic Layout Designer Physician Integrated Circuit Ic Layout Designer 06/30/15 09/17/19 CARLA Mckeon [address] [facility] [address] [place], [place] [phone] Krystin Christie PCP 08/26/18 01/28/21 SAURABH Engel SEWING DEPARTMENT SUPERVISOR [address] [facility] [address] [phone] Sonja Tinajero Pharmacist Pharmacist 12/24/18 09/17/19 BOB Méndez [address] [address] [facility] [address] [place] [phone] Kelly De Oliveira [facility] Pharmacist Pharmacist 01/21/19 06/24/19 [address] [place], [place] [phone] documented as of this encounter
--- OUTSIDE RECORDS SUMMARY | 2022-05-09 11:00 | XMS_ITS | Encounter Summary ---
:1955 Author Organization [place] Address [address] [place] [address] Care Team Providers Name Role Phone Tali Vilchis MD Unavailable Anat Fuller MD Unavailable [phone] Janny Hutton PA-C Unavailable [phone] Krystin Christie APRN EXECUTIVE PERSONAL ASSISTANT Primary Care Provider [phone] Krystin Christie APRN EXECUTIVE PERSONAL ASSISTANT Unavailable [phone] Sonja Tinajero [facility] Unavailable [phone] Kelly De Oliveira [facility] Unavailable Encounter Details Date Type Department Care Team Description 05/31/2019 [facility] Sherine Carey, Fatty liver (Primary Dx); Hepatology 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 NAFLD (non alcoholic fatty liver disease) [address] [address] Social History Tobacco Use Types Packs/Day Years Used Date Smoking Tobacco: Never Smokeless Tobacco: Never Alcohol Use Standard Drinks/Week Comments No 0 (1 standard drink = 0.6 oz pure alcoho l) Sex Assigned at Date Recorded Female 08/17/2018 10:39 PM CLARIFIER OPERATOR HELPER documented as of this encounter Plan of Treatment Upcoming Encounters Date Type Specialty Care Team Description 05/19/2022 Office Visit ENT Dima Hidalgo M D [address] [address] (Wo rk) 08/02/2022 Office Visit Neurology Yair Campos MD [address] [place], [place] [address] (Wo rk) documented as of this encounter Results INR (06/10/2019 12:21 PM CLARIFIER OPERATOR HELPER) P athologist Signature INR 1.00 0.86 - 1.14 06/10/2019 [facility] 12:47 PM [facility] Specimen Anatomical Collection Method Collection Time Receive d Time (Source) Location / / Volume Laterality Blood specimen 06/10/2019 12:21 9 (specimen) PM CLARIFIER OPERATOR HELPER 12:22 PM CLARIFIER OPERATOR HELPER Anat Fuller MD LAB - BLOOD ORDERABLES Performing Organization Address City/State/ZIP Code Phon e Number [address] [address] [facility] (ABNORMAL) Hepatic panel (06/10/2019 12:21 PM CLARIFIER OPERATOR HELPER) Analysis Performed At Patho logist Time Signature Bilirubin Direct 0.1 0.0 - 0.2 06/10/2019 [place] mg/dL 12:50 PM [facility] Bilirubin Total 0.4 0.2 - 1.3 06/10/2019 [place] mg/dL 12:50 PM [facility] Albumin 3.4 3.4 - 5.0 06/10/2019 [facility] g/dL 12:50 PM [facility] Protein Total 7.2 6.8 - 8.8 06/10/2019 [facility] g/dL 12:50 PM [facility] Alkaline 78 40 - 150 06/10/2019 [facility] Phosphatase U/L 12:50 PM [facility] ALT 82 (H) 0 - 50 U/L 06/10/2019 [facility] 12:50 PM [facility] AST 32 0 - 45 U/L 06/10/2019 [facility] 12:50 PM [facility] Specimen Anatomical Collection Method Collection Time Receive d Time (Source) Location / / Volume Laterality Blood specimen 06/10/2019 12:21 9 (specimen) PM CLARIFIER OPERATOR HELPER 12:22 PM CLARIFIER OPERATOR HELPER Anat Fuller MD LAB - BLOOD ORDERABLES Performing Organization Address City/[facility]/ZIP Code Phon e Number [place] [phone] [facility] CBC with platelets (06/10/2019 12:21 PM CLARIFIER OPERATOR HELPER) P athologist Signature WBC 6.9 4.0 - 11.0 06/10/2019 [facility] 10e9/L 12:27 PM [facility] RBC Count 4.98 3.8 - 5.2 06/10/2019 [facility] 10e12/L 12:27 PM [facility] Hemoglobin 13.8 11.7 - 06/10/2019 [facility] 15.7 g/dL 12:27 PM [facility] Hematocrit 42.1 35.0 - 06/10/2019 [facility] 47.0 % 12:27 PM [facility] MCV 85 78 - 100 06/10/2019 [facility] fl 12:27 PM [facility] MCH 27.7 26.5 - 06/10/2019 [facility] 33.0 pg 12:27 PM [facility] MCHC 32.8 31.5 - 06/10/2019 [facility] 36.5 g/dL 12:27 PM [facility] RDW 13.6 10.0 - 06/10/2019 [facility] 15.0 % 12:27 PM [facility] Platelet Count 214 150 - 450 06/10/2019 [facility] 10e9/L 12:27 PM [facility] Specimen Anatomical Collection Method Collection Time Receive d Time (Source) Location / / Volume Laterality Blood specimen 06/10/2019 12:21 9 (specimen) PM CLARIFIER OPERATOR HELPER 12:22 PM CLARIFIER OPERATOR HELPER Anat Fuller MD LAB - BLOOD ORDERABLES Performing Organization Address City/[facility]/ZIP Code Phon e Number [address] [address] [facility] (ABNORMAL) Basic metabolic panel (06/10/2019 12:21 PM CLARIFIER OPERATOR HELPER) Analysis Performed At Patho logist Time Signature Sodium 137 133 - 144 06/10/2019 [facility] mmol/L 12:50 PM [facility] Potassium 4.2 3.4 - 5.3 06/10/2019 [facility] mmol/L 12:50 PM [facility] Chloride 108 94 - 109 06/10/2019 [facility] mmol/L 12:50 PM [facility] Carbon Dioxide 25 20 - 32 06/10/2019 [facility] mmol/L 12:50 PM [facility] Anion Gap 4 3 - 14 06/10/2019 [facility] mmol/L 12:50 PM [facility] Glucose 256 (H) 70 - 99 06/10/2019 [facility] mg/dL 12:50 PM [facility] Urea Nitrogen 9 7 - 30 06/10/2019 [facility] mg/dL 12:50 PM [facility] Creatinine 0.54 0.52 - 06/10/2019 [facility] 1.04 mg/dL 12:50 PM [facility] GFR Estimate >90 >60 06/10/2019 [facility] mL/min/{1. 12:[address] [facility] 73_m2} [facility] Comment: Non GFR Calc Starting 07/03/2018, serum creatinine ba sed estimated GFR (eGFR) will be calculated using the Chronic Kidney Dise [facility] Epidemiology Collaboration (CKD-EPI) equation. GFR Estimate If >90 >60 mL/min/{1.73_m2} 06/10/2019 12 :50 PM [facility] [place] [facility] Comment: GFR Calc Starting 07/03/2018, serum creatinine ba sed estimated GFR (eGFR) will be calculated using the Chronic Kidney Dise [place]se Epidemiology Collaboration (CKD-EPI) equation. Calcium 8.6 8.5 - 10.1 mg/dL 06/10/2019 12:50 PM [facility] Specimen Anatomical Collection Method Collection Time Receive d Time (Source) Location / / Volume Laterality Blood specimen 06/10/2019 12:21 9 (specimen) PM CLARIFIER OPERATOR HELPER 12:22 PM CLARIFIER OPERATOR HELPER Anat Fuller MD LAB - BLOOD ORDERABLES Performing Organization Address City/State/ZIP Code Phon e Number [facility] [address] [place] [address] [facility] documented in this encounter Visit Diagnoses Diagnosis Fatty liver - Primary Other chronic nonalcoholic liver disease NAFLD (nonalcoholic fatty liver disease) Other chronic nonalcoholic liver disease documented in this encounter Additional Health Concerns Assessment Noted Time PHQ-9 Depression Total Score: 8 01/07/2019 2:02 PM CDT documented as of this encounter Care Teams Normalizer Relationship Specialty Start Date End Date Krystin Christie PCP - General Nurse Practitioner 12/15/17 09/08/19 SAURABH Engel EXECUTIVE PERSONAL ASSISTANT [address] [facility] [place] [address] Tali Vilchis MD INTERNAL MEDICINE - 04/10/15 ENDOCRINOLOGY, DIABETES [address] [facility] [address] [place] [address] Anat Fuller MD Internal Medicine 04/10/1509/16 MD Renee [address] [facility] [address] [place] [address] Janny Hutton Physician Commissary Worker Physician Commissary Worker 06/30/15 09/17/19 CARLA Mckeon [address] [facility] [address] [place] [address] Krystin Christie Assigned PCP 08/26/18 01/28/21 SAURABH Engel EXECUTIVE PERSONAL ASSISTANT [address] [facility] [place] [address] Sonja Tinajero Pharmacist Pharmacist 12/24/18 09/17/19 BOB Méndez [address] [phone] Kelly De Oliveira [facility] Pharmacist Pharmacist 01/21/19 06/24/19 [address] [place] [address] documented as of this encounter
--- OUTSIDE RECORDS SUMMARY | 2022-05-09 11:00 | XMS_ITS | Encounter Summary ---
:1955 Author Organization [place] Address [facility] [place] [address] Care Team Providers Name Role Phone Tali Vilchis MD Unavailable Anat Fuller MD Unavailable [phone] Janny Hutton PA-C Unavailable [phone] Krystin Christie APRN PRESS BREAKER Primary Care Provider [phone] Krystin Christie APRN PRESS BREAKER Unavailable [phone] Sonja Tinajero [facility] Unavailable [phone] Eduin Wilhelm Unavailable Unavailable Reason for Visit Therapeutic Imaging/IR (Routine) - Closed Specialty Diagnoses / Procedures Referred By Contact Refer red To Contact Diagnoses NAFLD (nonalcoholic fatty liver disease) Uc Hepatology Procedures IR Liver Biopsy Percutaneous [address] [place] [address] Referral ID Status Reason Start Date Expiration Date Visits Requ ested Visits Authorized [id number] Closed 06/25/2019 06/24/2020 1 1 Encounter Details Date Type Department Care Team Description 07/04/2019 Ancillary [facility] Anat Fuller NAFLD (nonal coholic Procedure Imaging Krystin Duran MD fatty liver disease) [address] 5[address] [place], [place] [address] Social History Tobacco Use Types Packs/Day Years Used Date Smoking Tobacco: Never Smokeless Tobacco: Never Alcohol Use Standard Drinks/Week Comments No 0 (1 standard drink = 0.6 oz pure alcoho l) Sex Assigned at Date Recorded Female 08/17/2018 10:39 PM MAINTENANCE FOREMAN documented as of this encounter Plan of Treatment Upcoming Encounters Date Type Specialty Care Team Description 05/19/2022 Office Visit ENT Dima [facility]idalgo M D [address] [facility] [place] [address] (Wo rk) 08/02/2022 Office Visit Neurology Yair Campos MD [address] [place] [address] (Wo rk) documented as of this encounter Procedures Procedure Name Priority Date/Time Associated Comments Diagnosis IR LIVER BIOPSY Routine 07/04/2019 9:11 AM NAFLD (nonalcoholic Results for this PERCUTANEOUS MAINTENANCE FOREMAN fatty liver procedure are i n disease) the results section. GLUCOSE BY METER Routine 07/04/2019 8:11 AM NAFLD (nonalcoholi c Results for this MAINTENANCE FOREMAN fatty liver procedure are i n disease) the results section. documented in this encounter Results IR Liver Biopsy Percutaneous (07/04/2019 9:11 AM MAINTENANCE FOREMAN) Anatomical Region Laterality Modality Abdomen/Pelvis Radio Fluoroscopy Specimen (Source) Anatomical Location Collection Method / Collectio n Time Received Time / Laterality Volume Impressions 07/04/2019 2:17 PM MAINTENANCE FOREMAN IMPRESSION: Completed ultrasound-guided random cherokee liver biopsy. A total of two liver [...] Vital signs were monitored by nursing st bari under IR staff supervision. DESCRIPTION: The patient's [...] AMIE HARE PA-C Narrative 07/04/2019 2:17 PM MAINTENANCE FOREMAN PRE-PROCEDURE DIAGNOSIS: ??VILLAREAL POST-PROCEDURE DIAGNOSIS: Same PROCEDURE: Ultrasound-guided random emigdio ve liver biopsy Procedure Note Amie Hare PA-C - 07/04/2019For matting of this note might be different from the original. PRE-PROCEDURE DIAGNOSIS: VILLAREAL POST-PROCEDURE DIAGNOSIS: Same PROCEDURE: Ultrasound-guided random emigdio ve liver biopsy IMPRESSION: Completed ultrasound-guided random cherokee liver biopsy. A total of two liver [...] PA-C Anat Fuller MD IMG IR ORDERABLES (ABNORMAL) Glucose by meter (07/04/2019 8:11 AM MAINTENANCE FOREMAN) P athologist Signature Glucose 181 (H) 70 - 99 07/04/2019 POINT OF CARE mg/dL 8:22 AM MAINTENANCE FOREMAN TEST, GLUCOSE Specimen Anatomical Collection Method Collection Time Receive d Time (Source) Location / / Volume Laterality 07/04/2019 8:11 AM 9 8:22 MAINTENANCE FOREMAN AM MAINTENANCE FOREMAN Provider Unknown LAB - BEAKER POCT Performing Organization Address City/State/ZIP Code Phon e Number [facility] POINT OF CARE TEST, GLUCOSE POINT OF CARE TEST, GLUCOSE documented in this encounter Visit Diagnoses Diagnosis NAFLD (nonalcoholic fatty liver disease) Other chronic nonalcoholic liver disease documented in this encounter Additional Health Concerns Assessment Noted Time PHQ-9 Depression Total Score: 8 01/07/2019 2:02 PM CDT documented as of this encounter Care Teams Contract Designer Relationship Specialty Start Date End Date Krystin Christie PCP - General Nurse Practitioner 12/15/17 09/08/19 SAURABH Engel PRESS BREAKER [address] [place] [address] Tali Vilchis MD INTERNAL MEDICINE - 04/10/15 ENDOCRINOLOGY, DIABETES [address] [facility] [address] [place], [place] [address] Anat Fuller MD Internal Medicine 04/10/1509/16 MD Renee [address] [facility] [address] [place], [place] [address] Janny Hutton Physician Pre Certification Specialist Physician Pre Certification Specialist 06/30/15 09/17/19 CARLA Mckeon [address] [place] [facility] [address] [place], [place] [address] Krystin Christie PCP 08/26/18 01/28/21 SAURABH Engel PRESS BREAKER [address] [facility] [address] [place] [phone] Sonja Tinajero Pharmacist Pharmacist 12/24/18 09/17/[address] [facility] [address] [facility] [address] [place] [phone] Eduin Wilhelm Personal Advocate & 06/17/19 09/17/19 Liaison (PAL) documented as of this encounter
--- OUTSIDE RECORDS SUMMARY | 2022-05-09 11:01 | XMS_ITS | Encounter Summary ---
:1955 Author Organization [facility] Address [facility] [place] [address] Care Team Providers Name Role Phone Tali Vilchis MD Unavailable Anat Fuller MD Unavailable [phone] Janny Hutton PA-C Unavailable [phone] Krystin Christie APRN, CNP Primary Care Provider Krystin Christie APRN, CNP Unavailable [phone] Sonja Tinajero [facility] Unavailable [phone] Kelly De Oliveira [facility] Unavailable Reason for Visit Reason Onset Date Comments Prior Auth - Medication 05/06/2019 Invokana Encounter Details Date Type Department Care Team Description 05/06/[address] 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 Will likely switch to either Jardiance or Invokanaper 2018 Medicare Blue Rx formulary. Sonja Tinajero PharmD Medication Therapy Management Pharmacist Pager#: [phone] Telephone Encounter - Krystin Christie APRN CNP - 05/07/2019 7:19 AM CDT Hi there, Could you address this at today's visit? I have a feeling it will be hard to find a med that medicare covers. Krystin Chun FNP-DNP. Telephone Encounter - Huma Cody - 05/06/2019 6:31 PM CDT Prior Authorization Retail Medication Request Medication/Dose: Invokana ICD code (if different than what is on RX): Previously Tried and Failed: Rationale: Insurance Name: Medicare Blue Rx Pharmacy Information (if different than what is on RX) Name: [facility] Huma Cody [facility] [place] documented in this encounter Plan of Treatment Upcoming Encounters Date Type Specialty Care Team Description 05/19/2022 Office Visit ENT Dima Hidalgo M D [address] [place], [place] [address] (Sarah pino) 08/02/2022 Office Visit Neurology Yair Campos MD [address] [facility] [place] [address] (Sarah pino) documented as of this encounter Visit Diagnoses Not on filedocumented in this encounter Additional Health Concerns Assessment Noted Time PHQ-9 Depression Total Score: 8 01/07/2019 2:02 PM CDT documented as of this encounter Care Teams Tire Beader Maker Relationship Specialty Start Date End Date Krystin Christie PCP - General Nurse Practitioner 12/15/17 09/08/19 SAURABH Engel POSTER [address] [facility] [place] [id number] Tali Vilchis MD INTERNAL MEDICINE - 04/10/15 ENDOCRINOLOGY, DIABETES [address] [place], [place] [address] Anat Fuller MD Internal Medicine 04/10/1509/16 MD Renee [address] [facility] [address] [place], [place] [address] Janny Hutton Physician Chronometer Adjuster Physician Chronometer Adjuster 06/30/15 09/17/19 CARLA Mckeon [address] [facility] [address] [place], [place] [address] Krystin Christie Assigned PCP 08/26/18 01/28/21 SAURABH Engel POSTER [address] [facility] [place] [id number] Sonja Tinajero Pharmacist Pharmacist 12/24/18 09/17/19 Dev [facility] [address] [id number] Kelly De Oliveira [facility] Pharmacist Pharmacist 01/21/19 06/24/19 [address] [place], [place] [address] documented as of this encounter
--- OUTSIDE RECORDS SUMMARY | 2022-05-09 11:01 | XMS_ITS | Encounter Summary ---
:1955 Author Organization [place] Address [facility] [place] [address] Care Team Providers Name Role Phone Tali Vilchis MD Unavailable Anat Fuller MD Unavailable [phone] Janny Hutton PA-C Unavailable [phone] Krystin Christie APRN LOADER SEMICONDUCTOR DIES Primary Care Provider Krystin Christie APRN LOADER [employer]IC[employer] DIES Unavailable [phone] Sonja Tinajero [facility] Unavailable [phone] Kelly De Oliveira [facility] Unavailable Encounter Details Date Type Department Care Team Description 05/07/2019 Travel Social History Tobacco Use Types Packs/Day Years Used Date Smoking Tobacco: Never Smokeless Tobacco: Never Alcohol Use Standard Drinks/Week Comments No 0 (1 standard drink = 0.6 oz pure alcoho l) Sex Assigned at Date Recorded Female 08/17/2018 10:39 PM DIRECTOR 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 documented as of this encounter Plan of Treatment Upcoming Encounters Date Type Specialty Care Team Description 05/19/2022 Office Visit ENT Dima Hidalgo M D [address] [place] [address] (Wo rk) 08/02/2022 Office Visit Neurology Yair Campos MD [address] [place] [address] [place] [address] (Wo rk) documented as of this encounter Visit Diagnoses Not on filedocumented in this encounter Additional Health Concerns Assessment Noted Time PHQ-9 Depression Total Score: 8 01/07/2019 2:02 PM CDT documented as of this encounter Care Teams Rn Pediatric Relationship Specialty Start Date End Date Krystin Christie PCP - General Nurse Practitioner 12/15/17 09/08/19 SAURABH Engel LOADER SEMICONDUCTOR DIES [address] [facility] [place] [address] Tali Vilchis MD INTERNAL MEDICINE - 04/10/15 ENDOCRINOLOGY, DIABETES [address] [place], [place] [address] Anat Fuller MD Internal Medicine 04/10/1509/16 MD Renee [address] [place], [place] [address] Janny Hutton Physician Clinical Data Abstractor Physician Clinical Data Abstractor 06/30/15 09/17/19 CARLA Mckeon [address] [facility] [address] [place], [place] [address] Krystin Christie Assigned PCP 08/26/18 01/28/21 SAURABH Engel LOADER SEMICONDUCTOR DIES [address] [facility] [place] [address] Sonja Tinajero Pharmacist Pharmacist 12/24/18 09/17/19 Dev [facility] [address] [place] [address] Kelly De Oliveira [facility] Pharmacist Pharmacist 01/21/19 06/24/19 [address] [place] [address] documented as of this encounter
--- OUTSIDE RECORDS SUMMARY | 2022-05-09 11:01 | XMS_ITS | Encounter Summary ---
:1955 Author Organization [place] Address [address] [facility] [place] [address] Care Team Providers Name Role Phone Tali Vilchis MD Unavailable Anat Fuller MD Unavailable [phone] Janny Hutton PA-C Unavailable [phone] Krystin Christie APRN [facility] Primary Care Provider [phone] Krystin Christie APRN [facility] Unavailable [phone] Sonja Tinajero [facility] Unavailable [phone] Kelly De Oliveira [facility] Unavailable Reason for Visit Reason Comments Pain Pain Consultation (Routine) - Closed Specialty Diagnoses / Procedures Referred By Contact Refer red To Contact Orthopedics and Sports Diagnoses Trigger finger of thumb, unspecified laterality Krystin Christie [facility] Medicine SAURABH Engel [facility] [address] [place] [address] [address] [place] [address] Phone: Fax: Referral ID Status Reason Start Date Expiration Date Visits Requ ested Visits Authorized [id number] Closed 05/03/2019 05/02/2020 1 1 Encounter Details Date Type Department Care Team Description 05/08/2019 Office Visit [facility] Eric Abdi Trigger thumb of both hands (Primary Dx); Sports Medicine MD Joo Pain in multiple finger joints Clinic [address] [place], [place] [address] [address] [place] [address] [phone] Social History Tobacco Use Types Packs/Day Years Used Date Smoking Tobacco: Never Smokeless Tobacco: Never Alcohol Use Standard Drinks/Week Comments No 0 (1 standard drink = 0.6 oz pure alcoho l) Sex Assigned at Date Recorded Female 08/17/2018 10:39 PM REGISTERED DIETICIAN documented as of this encounter Last Filed Vital Signs Vital Sign Reading Time Taken Comments Blood Pressure 118/72 05/08/2019 2:19 PM CDT Pulse - - Temperature - - Respiratory Rate - - Oxygen Saturation - - Inhaled Oxygen Concentration - - Weight 91.6 kg (202 lb) 05/08/2019 2:19 PM CDT Height 160 cm (5' 3) 05/08/2019 2:19 PM CDT Body Mass Index 35.78 05/08/2019 2:19 PM CDT documented in this encounter Progress Notes Eric Abdi MD - 05/08/2019 2:00 PM CDTAssociated Order(s): Hand / Upper Extremity Injection/Arthrocentesis: bilateral thumb A1 HPI [facility] Visit s May 08, 2019 PCP: Krystin Christie Becki is a 64 year old female who is seen in consultation at the request of Dr. Christie for Chief Complaint Patient presents with ??? Left Hand - Pain ??? Right Hand - Pain Injury: Reports insidious onset without acute precipitating event. Right hand dominant Location of Pain: bilateral thumb Duration of Pain: 2 month(s), Rating of Pain at worst: 7/10 Rating of Pain Currently: 5/10 Pain is better with: activity avoidance Pain is worse with: ADLs: all activities and gripping Treatment so far consists of: prednisone, Mobic Associated symptoms: triggering Recent imaging completed: No recent imaging completed. Prior History of related problems: none Social History: retired Past Medical History: Diagnosis Date ??? Angioedema ??? Arthritis ??? Asthma ??? Blood transfusion ??? Depression ??? DM2 (diabetes mellitus, type 2) (H) ??? Hypertension ??? Lower extremity edema ??? VILLAREAL (nonalcoholic steatohepatitis) ??? Restless legs syndrome ??? Restrictive lung disease ??? Sleep apnea ??? Subclinical hypothyroidism 2009 Patient Active Problem List Diagnosis Date Noted ??? Diabetic gastroparesis (H) 10/04/2018 Priority: Medium [...] Depression Daughter ??? Anxiety Disorder Daughter ??? Depression Mother ??? Dementia Mother ??? Hypertension Mother ??? Cancer Mother ??? Diabetes Mother ??? Glaucoma Mother ??? Cerebrovascular Disease Mother ??? Lung Cancer Mother ??? Depression Father ??? Hypertension Father ??? Diabetes Father ??? Depression Maternal Grandmother ??? Dementia Maternal Aunt ??? Dementia Maternal Aunt ??? Dementia Maternal Aunt ??? Dementia Maternal Aunt ??? Bladder Cancer Sister ??? Macular Degeneration No family hx of [...] liver ??? COLONOSCOPY age 52 [place] results Review of Systems Musculoskeletal: Positive for joint pain. All other systems reviewed and are negative. Physical Exam BP 118/72 Ht 1.6 m (5' 3) Wt 91.6 kg (202 lb) BMI 35.78 kg/m?? Constitutional:well-developed, well-nourished, and in no distress. Cardiovascular: Intact distal pulses. Neurological: alert. Gait Normal: Gait, station, stance, and balance appear normal for age Skin: Skin is warm and dry. Psychiatric: Mood and affect normal. Respiratory: unlabored, speaks in full sentences Lymph: no LAD, no lymphangitis Right Hand Exam Tenderness Right hand tenderness location: Palmar aspect of thumb MP joint, diffusely about MP joints and PIP joints. Range of Motion Wrist Extension: normal Flexion: normal Pronation: normal Supination: normal Hand MP Thumb: abnormal Muscle Strength The patient has normal right wrist strength. Tests Alexa's test: negative Other Erythema: absent Scars: absent Sensation: normal Pulse: present Comments: Mild swelling diffusely about the MP joints and PIP joints, trace mild ulnar drift. Left Hand Exam Tenderness Left hand tenderness location: Palmar aspect of thumb MP joint, diffusely about MP joints and PIP joints. Range of Motion Wrist Extension: normal Flexion: normal Pronation: normal Supination: normal Hand MP Thumb: abnormal Muscle Strength The patient has normal left wrist strength. Tests Alexa's test: negative Other Erythema: absent Sensation: normal Pulse: present Comments: Mild swelling diffusely about the MP joints and PIP joints, trace mild ulnar drift. ASSESSMENT/PLAN ICD-10-CM 1. Trigger thumb of both hands M65.311 Hand / Upper Extremity Injection/Arthrocentesis: bilateral thumb A1 M65.312 2. Pain in multiple finger joints M25.549 Erythrocyte sedimentation rate auto CRP inflammation Cyclic Citrullinated Peptide Antibody IgG Trigger finger identified in both thumbs. Options discussed, and she wants to pursue bilateral injections today. See procedure note below. She also was on to describe the other achy stiff joints in the hands, and then elaborates on long-standing achy sore hips and knees. With swelling about the hands in a pattern suggestive of rheumatoid arthritis, screening labs ordered today. Will notify via [employer]. Hand / Upper Extremity Injection/Arthrocentesis: bilateral thumb A1 Date/Time: 05/08/2019 2:45 PM Performed by: Eric Abdi MD Authorized by: Eric Abdi MD Indications: Pain Needle Size: 27 G Guidance: landmark Approach: Volar Condition: trigger finger Laterality: Bilateral Location: Thumb Site: Bilateral thumb A1 Medications (Right): 20 mg triamcinolone 40 MG/ML Medications (Left): 20 mg triamcinolone 40 MG/ML Outcome: Tolerated well, no immediate complications Procedure discussed: discussed risks, benefits, and alternatives Consent Given by: Parent and patient Timeout: timeout called immediately prior to procedure Prep: patient was prepped and draped in usual sterile fashion documented in this encounter Plan of Treatment Upcoming Encounters Date Type Specialty Care Team Description 05/19/2022 Office Visit ENT Dima Hidalgo M D [address] [place], [place] [address] (Sarah rk) 08/02/2022 Office Visit Neurology Yair Campos MD [address] [place] [address] (Wo rk) documented as of this encounter Procedures Procedure Name Priority Date/Time Associated Comments Diagnosis CYCLIC CITRULLINATED Routine 05/08/2019 2:56 PM Pain in multip le Results for this PEPTIDE ANTIBODY IGG CDT finger joints proced ure are in the results section. ERYTHROCYTE Routine 05/08/2019 2:56 PM Pain in multiple Resul ts for this SEDIMENTATION RATE CDT finger joints procedur e are in AUTO the results section. CRP INFLAMMATION Routine 05/08/2019 2:56 PM Pain in multiple R esults for this CDT finger joints procedure are in the results section. INJECT TENDON Routine 05/08/2019 2:00 PM Trigger thumb of Resu lts for this SHEATH/LIGAMENT CDT both hands procedure ar e in BILATERAL the results section. documented in this encounter Results Cyclic Citrullinated Peptide Antibody IgG (05/08/2019 2:56 PM CDT) [facility] Method Time Signature Cyclic 1 <7 U/mL 05/09/2019 [place] Citrullinated 11:41 AM CDT [facility] Antibody, [facility] Comment: Negative Specimen Anatomical Collection Method Collection Time Receive d Time (Source) Location / / Volume Laterality Blood specimen 05/08/2019 2:56 PM 019 2:57 (specimen) CDT PM CDT Eric Abdi MD LAB - BLOOD ORDERABLES Performing Organization Address City/[facility]/ZIP Code Phon e Number [facility] [address] (ABNORMAL) CRP inflammation (05/08/2019 2:56 PM CDT) [facility] Method Time Signature CRP Inflammation 11.0 (H) 0.0 - 8.0 05/08/2019 [place] O F mg/L 8:36 PM CDT [facility] Specimen Anatomical Collection Method Collection Time Receive d Time (Source) Location / / Volume Laterality Blood specimen 05/08/2019 2:56 PM 019 2:57 (specimen) CDT PM CDT Eric Abdi MD LAB - BLOOD ORDERABLES Performing Organization Address City/[facility]/ZIP Code Phon e Number [facility] [address] Erythrocyte sedimentation rate auto (05/08/2019 2:56 PM CDT) athologist Signature Sed Rate 11 0 - 30 mm/h 05/08/2019 [place] 3:19 PM CDT [facility] Specimen Anatomical Collection Method Collection Time Receive d Time (Source) Location / / Volume Laterality Blood specimen 05/08/2019 2:56 PM 019 2:57 (specimen) CDT PM CDT Eric Abdi MD LAB - BLOOD ORDERABLES Performing Organization Address City/[facility]/ZIP Code Phon e Number [facility] [address] [place] [address] INJECT TENDON SHEATH/LIGAMENT BILATERAL (05/08/2019 2:00 PM CDT) Eric Donahue MD - 05/08/2019 2:00 PM CDT Eric Abdi MD ? 05/08/2019 ??3:03 PM Hand / Upper Extremity Injection/Arthroc entesis: bilateral thumb A1 Date/Time: 05/08/2019 2:45 PM Performed by: Eric Abdi M D Authorized by: Eric Abdi MD Indications: ??Pain Needle Size: ??27 G Guidance: landmark ?? Approach: ??Volar Condition: trigger finger ?? Laterality: ??Bilateral Location: ??Thumb Site: ??Bilateral thumb A1 Medications (Right): ??20 mg triamcinolo ne 40 MG/ML Medications (Left): ??20 mg triamcinolon e 40 MG/ML Outcome: ??Tolerated well, no immediate complications Procedure discussed: discussed risks, be nefits, and alternatives ?? Consent Given by: ??Parent and patient Timeout: timeout called immediately prio r to procedure ?? Prep: patient was prepped and draped in usual sterile fashion ?? Eric Abdi MD PROCEDURE/MINOR SURGICAL ORD ERABLES documented in this encounter Visit Diagnoses Diagnosis Trigger thumb of both hands - Primary Pain in multiple finger joints documented in this encounter Administered Medications Inactive Administered Medications - up to 3 most recent administrations Medication Order MAR Action Action Date Dose Rate Site triamcinolone (KENALOG-40) Given 05/08/2019 2:45 PM CDT 20 mg injection 20 mg 20 mg, Starting on Mon05/08/19 at 1445 triamcinolone (KENALOG-40) injection 20 mg Given 05/08/2019 2:45 PM CDT 20 mg 20 mg, Starting on Mon05/08/19 at 1445 documented in this encounter Additional Health Concerns Assessment Noted Time PHQ-9 Depression Total Score: 8 01/07/2019 2:02 PM CDT documented as of this encounter Care Teams Greaser And Oiler Relationship Specialty Start Date End Date Krystin Christie PCP - General Nurse Practitioner 12/15/17 09/08/19 SAURABH Engel VOICE PROFESSOR [address] [facility] [place] [address] Tali Vilchis MD INTERNAL MEDICINE - 04/10/15 MD ENDOCRINOLOGY, DIABETES [address] [place] [address] Anat Fuller MD Internal Medicine 04/10/1509/16 MD Renee [address] [facility] [address] [place] [address] aJnny Hutton Physician It Infrastructure Consultant Physician It Infrastructure Consultant 06/30/15 09/17/19 CARLA Mckeon [address] [facility] [address] [place] [address] Krystin Christie Assigned PCP 08/26/18 01/28/21 SAURABH Engel VOICE PROFESSOR [address] [facility] [place] [id number] Sonja Tinajero Pharmacist Pharmacist 12/24/18 09/17/19 Dev [facility] [address] [facility] [place] [place] [phone] Kelly De Oliveira [facility] Pharmacist Pharmacist 01/21/19 06/24/19 [address] [place] [id number] documented as of this encounter
--- OUTSIDE RECORDS SUMMARY | 2022-05-09 11:01 | XMS_ITS | Encounter Summary ---
:1955 Author Organization [place] Address Formerly [facility], [facility]0 [facility] [place] [address] Care Team Providers Name Role Phone Tali Vilchis MD Unavailable Anat Fuller MD Unavailable [phone] Janny Hutton PA-C Unavailable [phone] Krystin Christie APRN BALE TIE MACHINE OPERATOR Primary Care Provider Krystin Christie APRN BALE TIE MACHINE OPERATOR Unavailable [phone] Sonja Tinajero [facility] Unavailable [phone] Kelly De Oliveira [facility] Unavailable Reason for Visit Reason Comments Eye Problem Left Eye Encounter Details Date Type Department Care Team Description 05/24/2019 Office Visit [facility] Maranda Pantoja (Primary Dx); Clinic Lola Taylor, [place] Trichiasis of left lower eyelid [address] [facility] [address] [place] [address] [place] [address] [phone] Social History Tobacco Use Types Packs/Day Years Used Date Smoking Tobacco: Never Smokeless Tobacco: Never Alcohol Use Standard Drinks/Week Comments No 0 (1 standard drink = 0.6 oz pure alcoho l) Sex Assigned at Date Recorded Female 08/17/2018 10:39 PM TRIM ATTACHER documented as of this encounter Patient Instructions Patient InstructionsMaranda Linares, OD - 05/24/2019 12:20 PM TRIM ATTACHER Area is slightly inflamed no cysts, lashes would be best plucked rather than trimmed for less irritation Warm compresses / artificial tears DRY EYE TREATMENT I recommend using artificial tears for your dry eye. There are over the counter drops that work welland may be used up to 4x daily. ( systane balance, refresh optive, soothe xp) If you need more than 4 drops daily, use a preservative free product which come in individual vialswhich may be used for 24 hours and discarded. Artificial tears work best as a preventative and not as well after your eyes are starting to bother you. It may take 4- 6 weeks of using the drops before you notice improvement. If after that time you are still having problems schedule an appointment for an evaluation and discussion of different treatments. Dry eyes are a chronic condition and you may have more symptoms at certain times of the year. Additional recommended treatment: Warm compresses once to twice daily for 5-10 minutes Directions for warm soaks There are few [...] the washcloth will help retain the heat. [place] 3 fatty acid supplements taken 1-2x daily Recommend at least 2000mg omega 3 800 EPA 600 DHA Blink regularly Stay hydrated Increase humidity Wear sunglasses Avoid direct exposure to forced air--turn air vents in the car away and keep fans from blowing directly on your face ATTACHER documented in this encounter Progress Notes Maranda Linares, OD - 05/24/2019 12:20 PM CST Chief Complaint Patient presents with ??? Eye Problem Left Eye HPI Eye Problem Left Eye ?? In left eye. Onset was sudden. This started 1 day ago. Charactertized as blurred vision. Severityis mild. Occurring constantly. It is worse throughout the day. Context: near vision. Since onset it is stable. Associated symptoms include eye pain. Treatments tried include no treatments. Pain was noted as 3/10. Comments ?? Pt notices two bubbles on the sclera left eye this morning. She feels her vision is blurry NVA asa result. She can feel this fb sensation when she blinks. Blinking is painful. Rubbing inner corners a lot Do you wear contact lenses? No Concerns with sister having histoplasmosis when she was younger and shared her mascara about a monthago Laine Lundy CPO See Review Of Systems Medical, surgical and family histories reviewed and updated 05/24/2019. OBJECTIVE: See Ophthalmology exam ASSESSMENT: ICD-10-CM 1. Dry eye H04.129 2. 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 Epilate lashes , do not trim as blunt ends can be causing more irritation Warm compresses artificial tears Maranda Linares OD ATTACHER documented in this encounter Plan of Treatment Upcoming Encounters Date Type Specialty Care Team Description 05/19/2022 Office Visit ENT Dima Hidalgo M D [address] [facility] Saroj [place], [place] [address] (Wo rk) 08/02/2022 Office Visit Neurology Yair Campos MD [address] [place], [place] [address] [place], [place] [address] (Wo rk) documented as of this encounter Visit Diagnoses Diagnosis Dry eye - Primary Trichiasis of left lower eyelid documented in this encounter Additional Health Concerns Assessment Noted Time PHQ-9 Depression Total Score: 8 01/07/2019 2:02 PM CDT documented as of this encounter Care Teams Maintenance Instructor Relationship Specialty Start Date End Date Krystin Christie PCP - General Nurse Practitioner 12/15/17 09/08/19 SAURABH Engel BALE TIE MACHINE OPERATOR [address] [facility] [address] [place] [id number] Tali Vilchis MD INTERNAL MEDICINE - 04/10/15 ENDOCRINOLOGY, DIABETES [address] [place] [address] MMC & METABOLISM [address] [place] [phone] Anat Fuller MD Internal Medicine 04/10/1509/16 MD Renee [address] [facility] [address] [place] [address] Janny Hutton Physician Educational Technology Specialist Physician Educational Technology Specialist 06/30/15 09/17/19 CARLA Mckeon 420 [facility] 803 [place] [address] Krystin Christie Assigned PCP 08/26/18 01/28/21 SAURABH Engel BALE TIE MACHINE OPERATOR [address] [facility] [place] [address] Sonja Tinajero Pharmacist Pharmacist 12/24/18 09/17/19 Dev [facility] 14[address] [facility] [place] [address] Kelly De Oliveira [facility] Pharmacist Pharmacist 01/21/19 06/24/19 [address] [place], [place] [address] documented as of this encounter
--- OUTSIDE RECORDS SUMMARY | 2022-05-09 11:01 | XMS_ITS | Encounter Summary ---
:1955 Author Organization [place] Address [address]50 [facility] [place] [address] Care Team Providers Name Role Phone Tali Vilchis MD Unavailable Anat Fuller MD Unavailable [phone] Janny Hutton PA-C Unavailable [phone] Krystin Christie APRN [facility] Primary Care Provider Krystin Christie APRN [facility] Unavailable [phone] Sonja Tinajero [facility] Unavailable [phone] Encounter Details Date Type Department Care Team Description 01/08/2019 [facility] Only [facility] Krystin Christie Subclin[facility] l Clinic Lola Engel APRN hypothyroidism [address] [facility] [address] [facility] [address] [facility] [place] [address] [place] [id number] Social History Tobacco Use Types Packs/Day Years Used Date Smoking Tobacco: Never Smokeless Tobacco: Never Alcohol Use Standard Drinks/Week Comments No 0 (1 standard drink = 0.6 oz pure alcoho l) Sex Assigned at Date Recorded Female 08/17/2018 10:39 PM FACE HARDENER documented as of this encounter Plan of Treatment Upcoming Encounters Date Type Specialty Care Team Description 05/19/2022 Office Visit ENT Dima Hidalgo M D [address] [place] [address] (Wo rk) 08/02/2022 Office Visit Neurology Yair Campos MD [address] [facility] [address] [place], [place] [address] (Wo rk) documented as of this encounter Results (ABNORMAL) TSH with free T4 reflex (05/03/2019 2:13 PM CDT) athologist Signature TSH 6.70 (H) 0.40 - 05/03/2019 [facility] 4.00 mU/L 8:[address] [facility] Specimen Anatomical Collection Method Collection Time Receive d Time (Source) Location / / Volume Laterality Blood specimen 05/03/2019 2:13 PM 019 2:14 (specimen) CDT PM CDT Krystin Christie APRN CAN LINE EXAMINER LAB - BLOOD ORDERABLES Performing Organization Address City/State/ZIP Code Phon e Number [facility] [address] [place] [address] documented in this encounter Visit Diagnoses Diagnosis Subclinical hypothyroidism Other specified acquired hypothyroidism documented in this encounter Additional Health Concerns Assessment Noted Time PHQ-9 Depression Total Score: 8 01/07/2019 2:02 PM CDT documented as of this encounter Care Teams Supervisor Travel Trailer Relationship Specialty Start Date End Date Krystin Christie PCP - General Nurse Practitioner 12/15/17 09/08/19 SAURABH Engel CAN LINE EXAMINER [address] [facility] [place] [address] Tali Vilchis MD INTERNAL MEDICINE - 04/10/15 ENDOCRINOLOGY, DIABETES 420 [facility] MMC & METABOLISM 101 [place], [place] [address] Anat Fuller MD Internal Medicine 04/10/1509/16 MD Renee 516 [facility] [address] [place], [place] [address] Janny Hutton Physician Hazard Mitigation Officer Physician Hazard Mitigation Officer 06/30/15 09/17/19 CARLA Mckeon 420 [facility] 803 [place] [address] Krystin Christie PCP 08/26/18 01/28/21 SAURABH Engel CAN LINE EXAMINER [address] [facility] [place] [address] Sonja Tinajero Pharmacist Pharmacist 12/24/18 09/17/19 [facility] 1440 [facility] [place] [id number] documented as of this encounter
--- OUTSIDE RECORDS SUMMARY | 2022-05-09 11:01 | XMS_ITS | Encounter Summary ---
:1955 Author Organization [place] Address [facility] [address] Care Team Providers Name Role Phone Tali Vilchis MD Unavailable Anat Fuller MD Unavailable [phone] Janny Hutton PA-C Unavailable [phone] Krystin Christie APRN HAND I THERMAL CUTTER Primary Care Provider [phone] Krystin Christie APRN HAND I THERMAL CUTTER Unavailable [phone] Sonja Tinajero [facility] Unavailable [phone] Kelly De Oliveira [facility] Unavailable Encounter Details Date Type Department Care Team Description 05/03/2019 Telephone [facility] Krystin Christie Eagan APRN HAND I THERMAL CUTTER [address] [facility] 3305 [facility] [address] [place] [address] [place] [address] [phone] Social History Tobacco Use Types Packs/Day Years Used Date Smoking Tobacco: Never Smokeless Tobacco: Never Alcohol Use Standard Drinks/Week Comments No 0 (1 standard drink = 0.6 oz pure alcoho l) Sex Assigned at Date Recorded Female 08/17/2018 10:39 PM MACHINIST GENERAL documented as of this encounter Miscellaneous Notes Telephone Encounter - Krystin Christie APRN CNP - 05/03/2019 3:38 PM CDT Please disregard documented in this encounter Plan of Treatment Upcoming Encounters Date Type Specialty Care Team Description 05/19/2022 Office Visit ENT Dima Hidalgo M D 1379 [facility] [place], [place] [address] (Wo rk) 08/02/2022 Office Visit Neurology Yair Campos MD [address] [facility] [place] [address] (Wo rk) documented as of this encounter Visit Diagnoses Not on filedocumented in this encounter Additional Health Concerns Assessment Noted Time PHQ-9 Depression Total Score: 8 01/07/2019 2:02 PM CDT documented as of this encounter Care Teams Digital Cartographer Relationship Specialty Start Date End Date Krystin Christie PCP - General Nurse Practitioner 12/15/17 09/08/19 SAURABH Engel HAND I THERMAL CUTTER [address] [facility] [place] [address] Tali Vilchis MD INTERNAL MEDICINE - 04/10/15 ENDOCRINOLOGY, DIABETES 420 [facility] & METABOLISM 101 [place] [address] Anat Fuller MD Internal Medicine 04/10/1509/16 MD Renee 6 [facility] [address] [place] [address] Janny Hutton Physician Historical Guide Physician Historical Guide 06/30/15 09/17/19 CARLA cMkeon 420 [facility] 803 [place] [address] Krystin Christie Assigned PCP 08/26/18 01/28/21 SAURABH Engel HAND I THERMAL CUTTER 2985 [facility] [place] [address] Sonja Tinajero Pharmacist Pharmacist 12/24/18 09/17/19 CECE Méndez [address] [place] [address] Kelly De Oliveira [facility] Pharmacist Pharmacist 01/21/19 06/24/19 [address] [place] [id number] documented as of this encounter
--- OUTSIDE RECORDS SUMMARY | 2022-05-09 11:01 | XMS_ITS | Encounter Summary ---
:1955 Author Organization [place] Address Critical access hospital0 [facility] [place] [address] Care Team Providers Name Role Phone Tali Vilchis MD Unavailable Anat Fuller MD Unavailable [phone] Janny Hutton PA-C Unavailable [phone] Krystin Christie APRN RAIL BENDER Primary Care Provider Krystin Christie APRN RAIL BENDER Unavailable [phone] Sonja Tinajero [facility] Unavailable [phone] Reason for Visit Reason Onset Date Comments Refill Request 12/25/2018 Encounter Details Date Type Department Care Team Description 12/25/2018 MyC Refill [facility] Krystin Christie Ref ill Request Lola Engel APRN RAIL BENDER 3305 [facility] 3305 [facility] [address] [place] [address] [place] [address] [phone] Social History Tobacco Use Types Packs/Day Years Used Date Smoking Tobacco: Never Smokeless Tobacco: Never Alcohol Use Standard Drinks/Week Comments No 0 (1 standard drink = 0.6 oz pure alcoho l) Sex Assigned at Date Recorded Female 08/17/2018 10:39 PM MANAGING PRINCIPAL documented as of this encounter Miscellaneous Notes Telephone Encounter - Zoie Izaguirre RN - 12/26/2018 9:14 AM CDT Refill given with scheduled upcoming appointment Zoie Rm RN - Triage [facility] documented in this encounter Plan of Treatment Upcoming Encounters Date Type Specialty Care Team Description 05/19/2022 Office Visit ENT Dima [facility]idalgo M D [facility] [facility] [place], [place] [address] (Wo rk) 08/02/2022 Office Visit Neurology Yair Campos MD [address] [facility] [address] [place], [place] [address] (Wo rk) documented as of this encounter Visit Diagnoses Diagnosis Type 2 diabetes mellitus without complic ation, without long-term current use of insulin (H) documented in this encounter Additional Health Concerns Assessment Noted Time PHQ-9 Depression Total Score: 4 08/24/2018 11:10 AM CS T documented as of this encounter Care Teams Automobile Inspector Relationship Specialty Start Date End Date Krystin Christie PCP - General Nurse Practitioner 12/15/17 09/08/19 SAURABH Engel [facility] [address] [facility] [address] [place] [phone] Tali Vilchis MD INTERNAL MEDICINE - 04/10/15 MD ENDOCRINOLOGY, DIABETES 420 [facility] & METABOLISM 101 [place], [place] [address] Anat Fuller MD Internal Medicine 04/10/1509/16 MD Renee 516 [facility] [address] [place], [place] [address] Janny Hutton Physician Control Room Tender Physician Control Room Tender 06/30/15 09/17/19 CARLA Mckeon 420 [facility] 803 [place], [place] [address] Krystin Christie Assigned PCP 08/26/18 01/28/21 SAURABH Engel RAIL BENDER [address] [facility] [place] [address] Sonja Tinajero Pharmacist Pharmacist 12/24/18 09/17/19 [facility] 1440 [facility] [place] [address] documented as of this encounter
--- OUTSIDE RECORDS SUMMARY | 2022-05-09 11:01 | XMS_ITS | Encounter Summary ---
:1955 Author Organization [place] Address 2450 [facility] [place] [address] Care Team Providers Name Role Phone Tali Vilchis MD Unavailable Anat Fuller MD Unavailable [phone] Janny Hutton PA-C Unavailable [phone] Krystin Christie APRN OUTSIDE PARTS SALESMAN Primary Care Provider [phone] Krystin Christie APRN OUTSIDE PARTS SALESMAN Unavailable [phone] Sonja Tinajero [facility] Unavailable [phone] Encounter Details Date Type Department Care Team Description 01/07/2019 Travel Social History Tobacco Use Types Packs/Day Years Used Date Smoking Tobacco: Never Smokeless Tobacco: Never Alcohol Use Standard Drinks/Week Comments No 0 (1 standard drink = 0.6 oz pure alcoho l) Sex Assigned at Date Recorded Female 08/17/2018 10:39 PM CARDING 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 documented as of this encounter Plan of Treatment Upcoming Encounters Date Type Specialty Care Team Description 05/19/2022 Office Visit ENT Dima Hidalgo M D [address] [address] (Wo rk) 08/02/2022 Office Visit Neurology Yair Campos MD 420 [facility] eet [place], [place] [address] (Wo rk) documented as of this encounter Visit Diagnoses Not on filedocumented in this encounter Additional Health Concerns Assessment Noted Time PHQ-9 Depression Total Score: 8 01/07/2019 2:02 PM CDT documented as of this encounter Care Teams Auditor In Charge Relationship Specialty Start Date End Date Krystin Christie PCP - General Nurse Practitioner 12/15/17 09/08/19 SAURABH Engel OUTSIDE PARTS SALESMAN 3[address] [facility] [place] [address] Tali Vilchis MD INTERNAL MEDICINE - 04/10/15 ENDOCRINOLOGY, DIABETES [address] [place] [address] MMC & METABOLISM 101 [place], [place] [address] Anat Fuller MD Internal Medicine 04/10/1509/16 MD Renee 516 [facility] [address] [place], [place] [address] Janny Hutton Physician Supervisor Fur Floor Worker Physician Supervisor Fur Floor Worker 06/30/15 09/17/19 CARLA Mckeon 420 [facility] MMC 803 [place], [place] [address] Krystin Christie Assigned PCP 08/26/18 01/28/21 SAURABH Engel OUTSIDE PARTS SALESMAN 3305 [facility] [place] [address] Sonja Tinajero Pharmacist Pharmacist 12/24/18 09/17/19 Dev [facility] 1440 [facility] [place] [id number] documented as of this encounter
--- OUTSIDE RECORDS SUMMARY | 2022-05-09 11:01 | XMS_ITS | Encounter Summary ---
:1955 Author Organization [place] Address [facility] [place] [address] Care Team Providers Name Role Phone Tali Vilchis MD Unavailable Anat Fuller MD Unavailable [phone] Janny Hutton PA-C Unavailable [phone] Krystin Christie APRN VACUUM WORKER Primary Care Provider [phone] Krystin Christie APRN VACUUM WORKER Unavailable [phone] Sonja Tinajero [facility] Unavailable [phone] Kelly De Oliveira [facility] Unavailable Encounter Details Date Type Department Care Team Description 05/24/2019 Travel Social History Tobacco Use Types Packs/Day Years Used Date Smoking Tobacco: Never Smokeless Tobacco: Never Alcohol Use Standard Drinks/Week Comments No 0 (1 standard drink = 0.6 oz pure alcoho l) Sex Assigned at Date Recorded Female 08/17/2018 10:39 PM NAVAL AIRCREWMAN TACTICAL HELICOPTER documented as of this encounter Plan of Treatment Upcoming Encounters Date Type Specialty Care Team Description 05/19/2022 Office Visit ENT Dima Hidalgo M D [address] [place] [address] (Wo rk) 08/02/2022 Office Visit Neurology Yair Campos MD [address] [place] [address] [place] [address] (Wo rk) documented as of this encounter Visit Diagnoses Not on filedocumented in this encounter Additional Health Concerns Assessment Noted Time PHQ-9 Depression Total Score: 8 01/07/2019 2:02 PM CDT documented as of this encounter Care Teams Directional Driller Relationship Specialty Start Date End Date Krystin Christie PCP - General Nurse Practitioner 12/15/17 09/08/19 SAURABH Engel VACUUM WORKER 3305 [facility] [place] [address] Tali Vilchis MD INTERNAL MEDICINE - 04/10/15 ENDOCRINOLOGY, DIABETES [address] [place] [address] MMC & METABOLISM [address] [place], [place] [address] Anat Fuller MD Internal Medicine 04/10/1509/16 MD Renee [address] [place], [place] [address] Janny Hutton Physician Thread Winder Automatic Physician Thread Winder Automatic 06/30/15 09/17/19 CARLA Mckeon 420 [facility] MMC 803 [place], [place] [address] Krystin Christie Assigned PCP 08/26/18 01/28/21 SAURABH Engel VACUUM WORKER 7966 [facility] [place] [address] Sonja Tinajero Pharmacist Pharmacist 12/24/18 09/17/19 Dev [facility] [address] [place] [address] Kelly De Oliveira [facility] Pharmacist Pharmacist 01/21/19 06/24/19 [address] [place] [address] documented as of this encounter
--- OUTSIDE RECORDS SUMMARY | 2022-05-09 11:01 | XMS_ITS | Encounter Summary ---
:1955 Author Organization [facility] Address Count includes the [facility] [place] [address] Care Team Providers Name Role Phone Tali Vilchis MD Unavailable Anat Fuller MD Unavailable [phone] Janny Hutton PA-C Unavailable [phone] Krystin Christie APRN PROFESSIONAL SOCCER PLAYER Primary Care Provider Krystin Christie APRN, CNP Unavailable [phone] Sonja Tinajero [facility] Unavailable [phone] Kelly De Oliveira [facility] Unavailable Reason for Referral Consultation (Routine) - Closed Specialty Diagnoses / Procedures Referred By Contact Refer red To Contact Orthopedics and Sports Diagnoses Trigger finger of thumb, unspecified laterality Krystin Christie [facility] SAURABH Engel CNP [address] [place] [address] [address] [place] [address] Phone: Fax: Referral ID Status Reason Start Date Expiration Date Visits Requ ested Visits Authorized [id number] Closed 05/03/2019 05/02/2020 1 1 Reason for Visit Reason Comments Diabetes Encounter Details Date Type Department Care Team Description 05/03/2019 Office Visit [facility] Krystin Christie Type 2 lashawn betes mellitus with complication, without long-term current use of insulin (H) (Primary Dx); Clinic Lola Egnel APRN Trigger finger of thumb, uns pecified laterality; [address] PROFESSIONAL SOCCER PLAYER Morbid obesity, unspecified obesity type (H); [address] [facility] Other fatigue [address] [place] [address] [place] [id number] Social History Tobacco Use Types Packs/Day Years Used Date Smoking Tobacco: Never Smokeless Tobacco: Never Alcohol Use Standard Drinks/Week Comments No 0 (1 standard drink = 0.6 oz pure alcoho l) Sex Assigned at Date Recorded Female 08/17/2018 10:39 PM WATER 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 documented as of this encounter Last Filed Vital Signs Vital Sign Reading Time Taken Comments Blood Pressure 132/84 05/03/2019 3:18 PM CDT Pulse 89 05/03/2019 3:18 PM CDT Temperature 36.8 ??C (98.2 ??F) 05/03/2019 3:18 PM CDT Respiratory Rate - - Oxygen Saturation 95% 05/03/2019 3:18 PM CDT Inhaled Oxygen Concentration - - Weight 91.7 kg (202 lb 3.2 oz) 05/03/2019 3:18 PM CDT Height - - Body Mass Index 35.82 03/05/2019 5:23 PM CDT documented in this encounter Patient Instructions Patient InstructionsMolitorKrystin APRN CNP - 05/03/2019 2:30 PM CDT Shingles, flu, and pneumonia down at our pharmacy Liver specialist See how much the invokana costs. If it isn't too expensive please start it. Watch for yeast infections. Please follow up with [facility] Reduce Metformin back to 1000 documented in this encounter Progress Notes Krystin Christie APRN CNP - 05/03/2019 2:30 PM CDT Subjective Becki Ridley is a 64 year old female who presents to clinic today for the following health issues: HPI Diabetes Follow-up and frozen thumbs/seen in urgent care on 03-05-19/given Prednisone and Meloxicam, still having pain, declines physical today. ?? How often are you checking your blood sugar? Not at all for the past week, staying with sister who just found out she has cancer. ?? What time of day are you checking your blood sugars (select all that apply)? NA ?? Have you had any blood sugars above 200? NA ?? Have you had any blood sugars below 70? NA ?? What symptoms do you notice when your blood sugar is low? Shaky, sweaty and nausea ?? What concerns do you have today about your diabetes? None ?? Do you have any of these symptoms? (Select all that apply) No numbness or tingling in feet. No redness, sores or blisters on feet. No complaints of excessive thirst. No reports of blurry vision. No significant changes to weight. ?? Have you had a diabetic eye exam in the last 12 months? Yes- Date of last eye exam: 09-11-18 BP Readings from Last 2 Encounters: 03/05/19 120/66 01/20/19 112/80 Hemoglobin A1C (%) Date Value 05/03/2019 8.4 (H) 01/07/2019 7.7 (H) LDL Cholesterol Calculated (mg/dL) Date Value 08/16/2018 135 (H) Diabetes Management Resources ?? How many servings of fruits and vegetables do you eat daily? 2-3 ?? On average, how many sweetened beverages do you drink each day (soda, juice, sweet tea, etc)? 0 How many days per week do you miss taking your medication? 2 ?? What makes it hard for you to take your medications? remembering to take ROS: const/endo/psych/neuro otherwise negative OBJECTIVE: BP 132/84 Pulse 89 Temp 98.2 ??F (36.8 ??C) (Oral) Wt 91.7 kg (202 lb 3.2 oz) SpO2 95% BMI35.82 kg/m?? CONSTITUTIONAL: Alert, well-nourished, well-groomed, NAD RESP: Lungs CTA. No wheeze, rhonchi, rales. CV: HRRR S1 S2 No MRG. No peripheral edema ASSESSMENT/PLAN: (E11.8) Type 2 diabetes mellitus with complication, without long-term current use of insulin (H) (primary encounter diagnosis) Comment: Has only been taking 2-3 Metformin due to diarrhea. Also taking 5mg glipizide. Will need tocut back on Metformin due to diarrhea. I do not want to increase glipizide due to there being other medications with more beneficial mechanism of actions. Will try to send in Invokana and have pt f/u with [facility] regarding other options if this is not covered. Plan: canagliflozin (INVOKANA) 100 MG tablet, metFORMIN (GLUCOPHAGE-XR) 500 MG 24 hr tablet, DISCONTINUED: liraglutide (VICTOZA) 18 MG/3ML solution -Reviewed r/b/se of Invokana. -On ASA -Statin not prescribed due to liver disease. She is to ask her GI if he will allow a statin -Could be a candidate for ZARINA. Will f/u with [facility]. Did not want to start multiple medications at once. BP on the higher side today. Last microalbumin normal. -Flu/pneumonia shot down in the pharmacy (M65.319) Trigger finger of thumb, unspecified laterality Plan: ORTHO NEEDLE PUNCH MACHINE OPERATOR HELPER REFERRAL (E66.01) Morbid obesity, unspecified obesity type (H) Plan: metFORMIN (GLUCOPHAGE-XR) 500 MG 24 hr tablet (R53.83) Other fatigue Comment: Ongoing, likely multifactorial. Plan: -Asked her to start using CPAP -After getting diabetes under control, seeing GI, re-starting CPAP, and seeing ortho I've asked her to f/u with this ISAURO Moreno-SONAM. documented in this encounter Plan of Treatment Upcoming Encounters Date Type Specialty Care Team Description 05/19/2022 Office Visit ENT Dima Hidalgo M D [address] [place], [place] [address] (Sarah pino) 08/02/2022 Office Visit Neurology Yair Campso MD [address] [place], [place] [address] [place] [address] (Wo rk) documented as of this encounter Visit Diagnoses Diagnosis Type 2 diabetes mellitus with complicati on, without long-term current use of insulin (H) - Primary Trigger finger of thumb, unspecified lat erality Morbid obesity, unspecified obesity type (H) Other fatigue documented in this encounter Additional Health Concerns Assessment Noted Time PHQ-9 Depression Total Score: 8 01/07/2019 2:02 PM CDT documented as of this encounter Care Teams Real Estate Photographer Relationship Specialty Start Date End Date Krystin Christie PCP - General Nurse Practitioner 12/15/17 09/08/19 SAURABH Engel PROFESSIONAL SOCCER PLAYER [address] [facility] [place] [phone] Tali Vilchis MD INTERNAL MEDICINE - 04/10/15 ENDOCRINOLOGY, DIABETES [address] [facility] MMC & METABOLISM [address] [place], [place] [address] Anat Fuller MD Internal Medicine 04/10/1509/16 MD Renee [address] [place], [place] [address] Janny Hutton Physician Building Services Coordinator Physician Building Services Coordinator 06/30/15 09/17/19 CARLA Mckeon 420 [facility] [address]03 [place], [place] [address] Krystin Christie Assigned PCP 08/26/18 01/28/21 SAURABH Engel PROFESSIONAL SOCCER PLAYER [address] [facility] [place] [id number] Sonja Tinajero Pharmacist Pharmacist 12/24/18 09/17/19 Dev [facility] [address] [id number] Kelly De Oliveira [facility] Pharmacist Pharmacist 01/21/19 06/24/19 [address] [place], [place] [address] documented as of this encounter
--- OUTSIDE RECORDS SUMMARY | 2022-05-09 11:01 | XMS_ITS | Encounter Summary ---
:1955 Author Organization [facility] Address [address] [place] [address] Care Team Providers Name Role Phone Tali Vilchis MD Unavailable Anat Fuller MD Unavailable [phone] Janny Hutton PA-C Unavailable [phone] Krystin Christie APRN ASSEMBLY INSPECTOR HELPER Primary Care Provider [phone] Krystin Christie APRN ASSEMBLY INSPECTOR HELPER Unavailable [phone] Sonja Tinajero [facility] Unavailable [phone] Encounter Details Date Type Department Care Team Description 01/20/2019 Travel Social History Tobacco Use Types Packs/Day Years Used Date Smoking Tobacco: Never Smokeless Tobacco: Never Alcohol Use Standard Drinks/Week Comments No 0 (1 standard drink = 0.6 oz pure alcoho l) Sex Assigned at Date Recorded Female 08/17/2018 10:39 PM FILLING WINDER documented as of this encounter Plan of Treatment Upcoming Encounters Date Type Specialty Care Team Description 05/19/2022 Office Visit ENT Dima Hidalgo M D [address] [place] [address] (Wo rk) 08/02/2022 Office Visit Neurology Yair Campos MD [address] [facility] [place], [place] [address] (Wo rk) documented as of this encounter Visit Diagnoses Not on filedocumented in this encounter Additional Health Concerns Assessment Noted Time PHQ-9 Depression Total Score: 8 01/07/2019 2:02 PM CDT documented as of this encounter Care Teams Steam Table Worker Relationship Specialty Start Date End Date Krystin Christie PCP - General Nurse Practitioner 12/15/17 09/08/19 SAURABH Engel ASSEMBLY INSPECTOR HELPER [address] [facility] [place] [address] Tali Vilchis MD INTERNAL MEDICINE - 04/10/15 ENDOCRINOLOGY, DIABETES [address] [place], [place] [address] Anat Fuller MD Internal Medicine 04/10/1509/16 MD Renee [address] [facility] [address] [place], [place] [address] Janny Hutton Physician Elevating Grader Operator Physician Elevating Grader Operator 06/30/15 09/17/19 CARLA Mckeon 420 [facility] MMC [address] [place], [place] [address] Krystin Chirstie Assigned PCP 08/26/18 01/28/21 SAURABH Engel ASSEMBLY INSPECTOR HELPER [address] [facility] [place] [place] [address] Sonja Tinajero Pharmacist Pharmacist 12/24/18 09/17/19 Dev [facility] [address] [facility] [place] [id number] documented as of this encounter
--- OUTSIDE RECORDS SUMMARY | 2022-05-09 11:01 | XMS_ITS | Encounter Summary ---
:1955 Author Organization [place] Address [facility] [place] [address] Care Team Providers Name Role Phone Tali Vilchis MD Unavailable Anat Fuller MD Unavailable [phone] Janny Hutton PA-C Unavailable [phone] Krystin Christie APRN HEAVY DUTY PRESS OPERATOR Primary Care Provider Krystin Christie APRN HEAVY DUTY PRESS OPERATOR Unavailable [phone] Sonja Tinajero [facility] Unavailable [phone] Kelly De Oliveira [facility] Unavailable Encounter Details Date Type Department Care Team Description 03/05/2019 Travel Social History Tobacco Use Types Packs/Day Years Used Date Smoking Tobacco: Never Smokeless Tobacco: Never Alcohol Use Standard Drinks/Week Comments No 0 (1 standard drink = 0.6 oz pure alcoho l) Sex Assigned at Date Recorded Female 08/17/2018 10:39 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 documented as of this encounter Plan of Treatment Upcoming Encounters Date Type Specialty Care Team Description 05/19/2022 Office Visit ENT Dima Hidalgo M D [address] [place] [address] (Wo rk) 08/02/2022 Office Visit Neurology Yair Campos MD [address] [place] [address] [place] [address] (Wo rk) documented as of this encounter Visit Diagnoses Not on filedocumented in this encounter Additional Health Concerns Assessment Noted Time PHQ-9 Depression Total Score: 8 01/07/2019 2:02 PM CDT documented as of this encounter Care Teams Stockroom Selector Relationship Specialty Start Date End Date Krystin Christie PCP - General Nurse Practitioner 12/15/17 09/08/19 SAURABH Engel HEAVY DUTY PRESS OPERATOR [address] [facility] [place] [address] Tali Vilchis MD INTERNAL MEDICINE - 04/10/15 ENDOCRINOLOGY, DIABETES [address] [place], [place] [address] Anat Fuller MD Internal Medicine 04/10/1509/16 MD Renee [address] [place], [place] [address] Janny Hutton Physician Burrito Maker Physician Burrito Maker 06/30/15 09/17/19 CARLA Mckeon [address] [facility] [address]MC [address] [place], [place] [address] Krystin Christie Assigned PCP 08/26/18 01/28/21 SAURABH Engel HEAVY DUTY PRESS OPERATOR [address] [facility] [place] [address] Sonja Tinajero Pharmacist Pharmacist 12/24/18 09/17/19 Dev [facility] [address] [place] [address] Kelly De Oliveira [facility] Pharmacist Pharmacist 01/21/19 06/24/19 [address] [place] [address] documented as of this encounter
--- OUTSIDE RECORDS SUMMARY | 2022-05-09 11:01 | XMS_ITS | Encounter Summary ---
:1955 Author Organization [facility] Address [address] [facility] [place] [address] Care Team Providers Name Role Phone Tali Vilchis MD Unavailable Anat Fuller MD Unavailable [phone] Janny Hutton PA-C Unavailable [phone] Krystin Christie APRN NETWORK CONTROL OPERATOR Primary Care Provider Krystin Christie APRN NETWORK CONTROL OPERATOR Unavailable [phone] Sonja Tinajero [facility] Unavailable [phone] Kelly De Oliveira [facility] Unavailable Reason for Visit Reason Comments Medication Therapy Management Encounter Details Date Type Department Care Team Description 05/07/2019 [facility] Sonja Tinajero [facility] Therapy [facility] Lola Méndez [facility] Management Visit 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 Start Jardiance 10 mg daily. Check your kidney function (BMP) in 1 month. 2. Continuing monitoring your blood sugars, especially if you are having symptoms of lows. Vaccines: 1. As a reminded you would benefit from the flu, pneumonia and shingles vaccine. Thyroid: 1. We will recheck your thyroid level in June. 2. Restart your pill box to help you remember to take the medications. Anxiety: 1. Buspar refilled. New prescription is for 10mg tablets. Continue Buspar 10 mg twice daily. Vitamin D: 1. Restart vitamin D 1000 unit(s) daily. Pain: 1. Start diclofenac gel 2-4 g up to 4 times as needed for pain. Start this to replace need of oral NSAID therapy. It was great to speak with you today. I value your experience and would be very thankful for your time with providing feedback on our clinic survey. You may receive a survey via email or text message in the next few days. Next MTM visit: 2 week telephone To schedule another MTM appointment, please call the clinic directly or you may call the MTM scheduling line at [phone] or toll-free at . My Clinical Pharmacist's contact information: It was a pleasure talking with you today! Please feel free to contact me with any questions or concerns you have. Sonja Tinajero PharmD Medication Therapy Management Pharmacist Pager#: [phone] documented in this encounter Progress Notes Sonja Tinajero RPH - 05/07/2019 9:35 AM CDT SUBJECTIVE/OBJECTIVE: Becki Ridley is a 64 year old female called for a follow-up visit for Medication Therapy Management. She was referred to me from [facility]. Chief Complaint: Follow up from our visit on 09/20/18. Would like to know if any medications are harmful with her liver disease. She is also wondering what else she can take for pain. Tobacco: No tobacco use Alcohol: none Medication Adherence/Access: Patient is not using pill box because she was at her sisters, she was doing better on the Pill Boxes. She is missing doses of medications. The patient fills medications at [facility]: [place] [facility] Trigger Finger/Pain: Has an appointment tomorrow with ortho tomorrow for trigger finger. Taking ibuprofen 200 mg twice a day as needed but using most days of the week for pain. Also has used Aleve and acetaminophen when she doesn't have ibuprofen. Primary pain is the trigger finger. However, does endorse pain in her back, knees, and all over. Previously on tramadol and found this helpful but worries it may be habit forming. Fell in February after starting meloxicam and prednisone for a couple weeks course - she is uncertain if this is related. No falls since. Diabetes: Recently she was taking metformin XR 3 tablets (1500 mg) daily with a meal, glipizide XL 5mg daily. S/E: diarrhea. Has not started Invokana, medications needs a PA. Previously on pioglitazone (S/E: felt sick, but does not really remember anymore). SMBG: not checking lately. Ranges (based on glucometer readings): none. She plans to starting checking BG again now that she is back home. Patient is not experiencing hypoglycemia Recent symptoms of high blood sugar? none Eye exam: up to date - 09/11/18 Foot exam: up to date ACEi/ARB: No. Urine Albumin is < 30 mg/g (08/16/18) Pt is not taking aspirin 81 mg daily. Diet/Exercise: She has continued her very low carb diet which her daughter has been very helpful with (cauliflower substitutes for grains and other help with diet). Statin: No statin currently due to active liver disease (LFTs elevated from 01/07/19). Per PCP note on 05/03/19, pt to discuss statin therapy with GI. Lab Results Component Value Date A1C 8.4 05/03/2019 A1C 7.7 01/07/2019 A1C 7.7 10/15/2018 A1C 11.6 08/16/2018 A1C 9.7 09/28/2016 Hypothyroidism: Patient is taking levothyroxine 50 mcg daily on an empty stomach. Forgot one dose yesterday. She was not able to tell me how many doses she has missed in the past week. She reports she has trying to be better at taking the medication. Patient is having the following symptoms: hypothyroidism - weakness and fatigue. Per PCP lab results, recheck in 8 weeks. TSH Date Value Ref Range Status 05/03/2019 6.70 (H) 0.40 - 4.00 mU/L Final T4 Free Date Value Ref Range Status 05/03/2019 1.20 0.76 - 1.46 ng/dL Final Anxiety: Current medications include: Buspirone 10 mg twice daily. Patient reports the following stressors: sister with diagnosis of cancer. Denies any side effects. She feels it may be somewhat helpful. She was on this in the past. PHQ-9 SCORE 12/07/2011 08/24/2018 01/07/2019 PHQ-9 Total Score - 4 8 PHQ-9 Total Score 24 - - PHQ-9 SCORE 12/07/2011 08/24/2018 01/07/2019 PHQ-9 Total Score - 4 8 PHQ-9 Total Score 24 - - Supplements: Pt has forgotten to take vitamin D. She was taking vitamin D 1000 unit(s) daily. No other concerns, besides feeling tired all the time. Asthma: Current asthma medications: DuoNebs prn SOB (1x month), and Albuterol prn (not currently using and does not find it very helpful). Asthma triggers include: exercise Pt reports the following symptoms: none. 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 ACT Total Scores 08/16/2018 01/07/2019 ACT TOTAL SCORE (Goal Greater than or Equal to 20) 22 23 In the past 12 months, how many times did you visit the emergency room for your asthma without beingadmitted to the hospital? 3 1 In the past 12 months, how many times were you hospitalized overnight because of your asthma? 0 1 Immunizations: She was going to get the shingles vaccine but forget then she had flare up of shingles. She also forgot to get the flu and pneumonia vaccine. Most Recent Immunizations Administered Date(s) Administered ? ? Influenza Vaccine IM > 6 months Valent IIV4 04/15/2014 ??? TDAP Vaccine (Adacel) 05/27/2014 ??? Tdap (Adacel,Boostrix) 05/27/2014 Today's Vitals: There were no vitals taken for this visit.Televisit. BP Readings from Last 1 Encounters: 05/03/19 132/84 Pulse Readings from Last 1 Encounters: 05/03/19 89 Wt Readings from Last 1 Encounters: 05/03/19 202 lb 3.2 oz (91.7 kg) Ht Readings from Last 1 Encounters: 03/05/19 5' 3 (1.6 m) Estimated body mass index is 35.82 kg/m?? as calculated from the following: Height as of 03/05/19: 5' 3 (1.6 m). Weight as of 05/03/19: 202 lb 3.2 oz (91.7 kg). Temp Readings from Last 1 Encounters: 05/03/19 98.2 ??F (36.8 ??C) (Oral) Last Comprehensive Metabolic Panel: Sodium Date Value Ref Range Status 01/07/2019 141 133 - 144 mmol/L Final Potassium Date Value Ref Range Status 01/07/2019 4.0 3.4 - 5.3 mmol/L Final Chloride Date Value Ref Range Status 01/07/2019 107 94 - 109 mmol/L Final Carbon Dioxide Date Value Ref Range Status 01/07/2019 21 20 - 32 mmol/L Final Anion Gap Date Value Ref Range Status 01/07/2019 13 3 - 14 mmol/L Final Glucose Date Value Ref Range Status 01/07/2019 213 (H) 70 - 99 mg/dL Final Urea Nitrogen Date Value Ref Range Status 01/07/2019 10 7 - 30 mg/dL Final Creatinine Date Value Ref Range Status 01/07/2019 0.57 0.52 - 1.04 mg/dL Final GFR Estimate Date Value Ref Range Status 01/07/2019 >90 >60 mL/min/[1.73_m2] Final Comment: Non GFR Calc Starting 07/03/2018, serum creatinine based estimated GFR (eGFR) will be calculated using the Chronic Kidney Disease Epidemiology Collaboration (CKD-EPI) equation. Calcium Date Value Ref Range Status 01/07/2019 9.1 8.5 - 10.1 mg/dL Final ASSESSMENT: Current medications were reviewed today as discussed above. Medication Adherence: poor, needs improvement, see below. Trigger finger/pain: Needs improvement. Pt would benefit from minimizing oral NSAID therapy and trial of topical NSAID. Future if need of an oral agent, may consider low dose gabapentin (would prefer over opioid therapy). Diabetes: Needs improvement. Pt is not meeting A1c goal < 8%. Recommend she do not increase metformin further given diarrhea concerns. Pt would benefit from starting SGLT2 inhibitor - her formulary covers Jardiance and Farxiga. There is some evidence/use of Jardiance in pt's with liver disease. Forthis reason, recommend Jardiance over Farxiga for safety. Also would recommend recheck of kidney function in 1 month as this is diuretic-like. Agree that is may continue to hold ASA and statin therapy given active liver disease at this time. Hypothyroidism: Needs improvement. Pt would benefit from improving adherence to therapy. Agree with plan to recheck in 6-8 weeks. If TSH still elevated and T4 is low/low-normal, recommend slight dose if symptomatic. Asthma: stable. Last ACT > 19. Supplements: needs improvement. Pt would likely benefit from restart of vitamin D therapy. Anxiety: stable. Pt to monitor for SOCRATES (as liver impairment may require dose reduction). Vaccines: Needs improvement, Pt would benefit from influenza, PPSV23, and Shingrix. PLAN: DM: 1. Start Jardiance 10 mg daily. BMP in 1 month. 2. Monitor for low blood sugars, may need to decrease glipizide if so. Vaccines: 1. Pt reminded to get the following: PPSV23, influenza, herpes zoster. Thyroid: 1. Recheck levels 6-8 weeks from 05/03/19. Anxiety: 1. Buspar refilled. New Rx is for 10mg tablets. Continue Buspar 10 mg twice daily. Vitamin D: 1. Restart vitamin D 1000 unit(s) daily. Pain: 1. Start diclofenac gel 2-4 g up to 4 times as needed for pain. Start this to replace need of oral NSAID therapy. Future visit: assess CPAP adherence I spent 50 minutes with this patient today. I offer these suggestions for consideration by verbal communication. A copy of the visit note was provided to the patient's primary care provider. Will follow up 2 weeks telephone. The patient declined a summary of these recommendations as an after visit summary. Sonja Tinajero, PharmD Medication Therapy Management Pharmacist Pager#: [phone] documented in this encounter Plan of Treatment Upcoming Encounters Date Type Specialty Care Team Description 05/19/2022 Office Visit ENT Dima Hidalgo M D [address] [facility] [address] [place], [place] [address] (Wo rk) 08/02/2022 Office Visit Neurology Yair Campos MD [address] [place], [place] [id number] (Wo rk) documented as of this encounter Visit Diagnoses Diagnosis Type 2 diabetes mellitus with complicati on, without long-term current use of insulin (H) - Primary KIERRA (generalized anxiety disorder) Generalized anxiety disorder Arthralgia, unspecified joint Subclinical hypothyroidism Other specified acquired hypothyroidism Restrictive lung disease Other diseases of lung, not elsewhere cl assified Takes dietary supplements Vaccine counseling Trigger finger, acquired Trigger finger (acquired) documented in this encounter Additional Health Concerns Assessment Noted Time PHQ-9 Depression Total Score: 8 01/07/2019 2:02 PM CDT documented as of this encounter Care Teams Occupational Medicine Officer Relationship Specialty Start Date End Date Krystin Christie PCP - General Nurse Practitioner 12/15/17 09/08/19 SAURABH Engel NETWORK CONTROL OPERATOR [address] [facility] [place] [address] Tali Vilchis MD INTERNAL MEDICINE - 04/10/15 MD ENDOCRINOLOGY, DIABETES [address] [facility] [address] [place], [place] [address] Anat Fuller MD Internal Medicine 04/10/1509/16 MD Renee [address] [facility] [address] [place], [place] [address] Janny Hutton Physician Food Production Supervisor Physician Food Production Supervisor 06/30/15 09/17/19 CARLA Mckeon [address] [facility] [address] [place], [place] [address] Krystin Christie Assigned PCP 08/26/18 01/28/21 SAURABH Engel NETWORK CONTROL OPERATOR [address] [facility] [place] [address] Sonja Tinajero Pharmacist Pharmacist 12/24/18 09/17/19 Dev [facility] [address] [id number] Kelly De Oliveira [facility] Pharmacist Pharmacist 01/21/19 06/24/19 [address] [place], [place] [id number] documented as of this encounter
--- OUTSIDE RECORDS SUMMARY | 2022-05-09 11:01 | XMS_ITS | Encounter Summary ---
:1955 Author Organization [facility] Address [address] [place] [address] Care Team Providers Name Role Phone Tali Vilchis MD Unavailable Anat Fuller MD Unavailable [phone] Janny Hutton PA-C Unavailable [phone] Krystin Christie APRN CUSTOMER CONTACT REPRESENTATIVE Primary Care Provider Krystin Christie APRN CUSTOMER CONTACT REPRESENTATIVE Unavailable [phone] Sonja Tinajero [facility] Unavailable [phone] Encounter Details Date Type Department Care Team Description 12/27/2018 Orders Only [employer] Krystin Christie Type 2 lashawn [facility] Lola Engel APRN mellitus without [address] CUSTOMER CONTACT REPRESENTATIVE complication, without [address] [facility] long-term current use [address] [facility] [address] of insulin (H) [place] [address] [place] [id number] Social History Tobacco Use Types Packs/Day Years Used Date Smoking Tobacco: Never Smokeless Tobacco: Never Alcohol Use Standard Drinks/Week Comments No 0 (1 standard drink = 0.6 oz pure alcoho l) Sex Assigned at Date Recorded Female 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 documented as of this encounter Plan of Treatment Upcoming Encounters Date Type Specialty Care Team Description 05/19/2022 Office Visit ENT Dima Hidalgo M D [address] [facility] [address] [place], [place] [address] (Wo rk) 08/02/2022 Office Visit Neurology Yair Campos MD [address] [place] [address] (Wo rk) documented as of this encounter Visit Diagnoses Diagnosis Type 2 diabetes mellitus without complic ation, without long-term current use of insulin (H) documented in this encounter Additional Health Concerns Assessment Noted Time PHQ-9 Depression Total Score: 4 08/24/2018 11:10 AM CS T documented as of this encounter Care Teams Personnel Records Clerk Relationship Specialty Start Date End Date Krystin Christie PCP - General Nurse Practitioner 12/15/17 09/08/19 SAURABH Engel CUSTOMER CONTACT REPRESENTATIVE [address] [facility] [place] [id number] Tali Vilchis MD INTERNAL MEDICINE - 04/10/15 ENDOCRINOLOGY, DIABETES [address] [facility] [address] [place] [address] Anat Fuller MD Internal Medicine 04/10/1509/16 MD Renee [address] [facility] [address] [place], [place] [address] Janny Hutton Physician Rn Clinical Trials Physician Rn Clinical Trials 06/30/15 09/17/19 CARLA Mckeon [address] [facility] [address] [place], [place] [address] Krystin Christie Assigned PCP 08/26/18 01/28/21 SAURABH Engel CUSTOMER CONTACT REPRESENTATIVE [address] [facility] [place] [id number] Sonja Tinajero Pharmacist Pharmacist 12/24/18 09/17/19 Dev [facility] [address] [facility] [place] [id number] (work) documented as of this encounter
--- OUTSIDE RECORDS SUMMARY | 2022-05-09 11:01 | XMS_ITS | Encounter Summary ---
:1955 Author Organization [place] Address [address] [facility] [place] [address] Care Team Providers Name Role Phone Tali Vilchis MD Unavailable Anat Fuller MD Unavailable [phone] Janny Hutton PA-C Unavailable [phone] Krystin Christie APRN SECURITY TECH Primary Care Provider Krystin Christie APRN SECURITY TECH Unavailable [phone] Sonja Tinajero [facility] Unavailable [phone] Kelly De Oliveira [facility] Unavailable Reason for Visit Reason Onset Date Comments Refill Request 05/18/2019 Glipizide Encounter Details Date Type Department Care Team Description 05/18/2019 MyC Refill [facility] Pratik, K[facility]in [facility] Lola Engel APRN CNP (Glipizide) [address] [place] [address] [facility] [address] [place] [address] [place] [address] [phone] Social History Tobacco Use Types Packs/Day Years Used Date Smoking Tobacco: Never Smokeless Tobacco: Never Alcohol Use Standard Drinks/Week Comments No 0 (1 standard drink = 0.6 oz pure alcoho l) Sex Assigned at Date Recorded Female 08/17/2018 10:39 PM RECORDER OF DEEDS documented as of this encounter Miscellaneous Notes Telephone Encounter - Pema Brush RN - 05/29/2019 12:52 PM CST Last Written Prescription Date: 05/13/2019 Last Fill Quantity: 90, # refills: 0 Last office visit: 05/03/2019 with prescribing provider: Yes Future Office Visit: Next 5 appointments (look out 90 days) Jun 17, 2019 9:55 AM RECORDER OF DEEDS Acute Visit with Krystin Christie APRN SECURITY TECH, EA EXAM ROOM [address] [facility] ([facility] [address] [facility] [address] [facility] [address] Requested Prescriptions Pending Prescriptions Disp Refills ??? glipiZIDE (GLUCOTROL XL) 5 MG 24 hr tablet 180 tablet 0 Sig: Take 2 tablets (10 mg) by mouth daily Sulfonylurea Agents Passed - 05/29/2019 12:32 PM Passed - Blood pressure less than 140/90 in past 6 months BP Readings from Last 3 Encounters: 05/29/19 133/83 05/08/19 118/72 05/03/19 132/84 Passed - Patient has documented LDL within the past 12 mos. Recent Labs Lab Test 08/16/18 1731 LDL 135* Passed - Patient has had a Microalbumin in the past 15 mos. Recent Labs Lab Test 08/16/18 1731 MICROL 6 UMALCR 6.34 Passed - Patient has documented A1c within the specified period of time. If HgbA1C is 8 or greater, it needs to be on file within the past 3 months. If less than 8, must beon file within the past 6 months. Recent Labs Lab Test 05/03/19 1413 11/20/17 A1C 8.4* < > -- HEMOGLOBINA1 -- -- 10.9* < > = values in this interval not displayed. Passed - Medication is active on med list Passed - Patient is age 18 or older Passed - No active on record Passed - Patient has a recent creatinine (normal) within the past 12 mos. Recent Labs Lab Test 01/07/19 1336 CR 0.57 Passed - Patient has not had a positive test within the past 12 mos. Passed - Recent (6 mo) or future (30 days) visit within the authorizing provider's specialty Patient had office visit in the last 6 months or has a visit in the next 30 days with authorizing provider or within the authorizing provider's specialty. See Patient Info tab in inbasket, or Choose Columns in Meds & Orders section of the refill encounter. Prescription approved per [facility] Refill Protocol. Pema Brush BS, RN, N [facility] Triage RDER OF DEEDS documented in this encounter Plan of Treatment Upcoming Encounters Date Type Specialty Care Team Description 05/19/2022 Office Visit ENT Dima Hidalgo M D [address] [place], [place] [address] (Wo rk) 08/02/2022 Office Visit Neurology Yair Campos MD [address] [place] [address] (Wo rk) documented as of this encounter Visit Diagnoses Diagnosis Type 2 diabetes mellitus with complicati on, without long-term current use of insulin (H) documented in this encounter Additional Health Concerns Assessment Noted Time PHQ-9 Depression Total Score: 8 01/07/2019 2:02 PM CDT documented as of this encounter Care Teams Senior Planning Manager Relationship Specialty Start Date End Date Krystin Christie PCP - General Nurse Practitioner 12/15/17 09/08/19 SAURABH Engel SECURITY TECH [address] [facility] [place] [address] Tali Vilchis MD INTERNAL MEDICINE - 04/10/15 ENDOCRINOLOGY, DIABETES [address] [facility] [address] [place], [place] [address] Anat Fuller MD Internal Medicine 04/10/1509/16 MD Renee [address] [facility] [address] [place], [place] [address] Janny Hutton Physician Tinsel Machine Operator Physician Tinsel Machine Operator 06/30/15 09/17/19 CARLA Mckeon [address] [facility] [address] [place] [address] Krystin Christie Assigned PCP 08/26/18 01/28/21 SAURABH Engel SECURITY TECH [address] [facility] [place] [id number] Sonja Tinajero Pharmacist Pharmacist 12/24/18 09/17/19 CECE Méndez [address] [facility] [address] [place] [id number] Kelly De Oliveira [facility] Pharmacist Pharmacist 01/21/19 06/24/19 [address] [place], [place] [id number] documented as of this encounter
--- OUTSIDE RECORDS SUMMARY | 2022-05-09 11:01 | XMS_ITS | Encounter Summary ---
:1955 Author Organization [place] Address [address] [facility] [place] [address] Care Team Providers Name Role Phone Tali Vilchis MD Unavailable Anat Fuller MD Unavailable [phone] Janny Hutton PA-C Unavailable [phone] Krystin Christie APRN DIRECTOR OF RETAIL ANALYTICS Primary Care Provider [phone] Krystin Christie APRN DIRECTOR OF RETAIL ANALYTICS Unavailable [phone] Sonja Tinajero [facility] Unavailable [phone] Kelly De Oliveira [facility] Unavailable Reason for Visit Reason Comments Medication Therapy Management Encounter Details Date Type Department Care Team Description 05/21/2019 [facility] Sonja Tinajero [facility] Therapy Health/Nurse Clinic Lola Méndez [facility] Management Visit 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 She was referred to me from Krystin Christie. Chief Complaint: Follow up from our visit on 05/07/19. Still under a lot of stress with family (sister was diagnosed with cancer). Tobacco: No tobacco use Alcohol: none Medication Adherence/Access: Patient is not using pill box because she was at her sisters, she was doing better on the Pill Boxes. She is missing doses of medications. The patient fills medications at [place]: [email or web address] Trigger Finger/Pain: Met with Sport Medicine on 05/08/19 and received bilateral injections. Using diclofenac gel PRN and feel this is very helpful. No concerns today. Diabetes: Recently she was taking metformin XR 3 tablets (1500 mg) daily with a meal and glipizide XL 10 mg daily. S/E: none currently. She cannot recall if she was always taking food with metformin and that is why she had stomach upset. This may be the reason why she is not on 2g of metformin daily. Previously on pioglitazone (S/E: felt sick, but does not really remember anymore). SMBG: infrequently. Ranges (based on glucometer readings): none, was not near her meter and unable to tell me her readings. Patient is not experiencing hypoglycemia Recent symptoms of high blood sugar? none Eye exam: up to date - 09/11/18 Foot exam: up to date ACEi/ARB: No. Urine Albumin is < 30 mg/g (08/16/18) Pt is not taking aspirin 81 mg daily. Statin: No statin currently due to active liver disease (LFTs elevated from 01/07/19). Per PCP note on 05/03/19, pt to discuss statin therapy with GI. Has upcoming appt. Lab Results Component Value Date A1C 8.4 05/03/2019 A1C 7.7 01/07/2019 A1C 7.7 10/15/2018 A1C 11.6 08/16/2018 A1C 9.7 09/28/2016 Today's Vitals: There were no vitals taken for this visit.Televisit. BP Readings from Last 1 Encounters: 05/08/19 118/72 Pulse Readings from Last 1 Encounters: 05/03/19 89 Wt Readings from Last 1 Encounters: 05/08/19 202 lb (91.6 kg) Ht Readings from Last 1 Encounters: 05/08/19 5' 3 (1.6 m) Estimated body mass index is 35.78 kg/m?? as calculated from the following: Height as of 05/08/19: 5' 3 (1.6 m). Weight as of 05/08/19: 202 lb (91.6 kg). Temp Readings from Last 1 Encounters: [...] poor, needs improvement, see below. Trigger finger/pain: Improving. Diabetes: Needs improvement. Pending SMBG. Pt likely would benefit from increase in metformin. PLAN: DM: 1. Increase metformin to 2000 mg daily. Pt to take with food. I spent 20 minutes with this patient today. I offer these suggestions for consideration by verbal communication. A copy of the visit note was provided to the patient's primary care provider. Will follow up after pt sends BG, pt to [facility] BG tomorrow. The patient declined a summary of these recommendations as an after visit summary. Sonja Tinajero, PharmD Medication Therapy Management Pharmacist Pager#: [phone] EMS TESTING LABORATORY TECHNICIAN documented in this encounter Plan of Treatment Upcoming Encounters Date Type Specialty Care Team Description 05/19/2022 Office Visit ENT Dima Hidalgo M D [address] [place], [place] [address] (Wo rk) 08/02/2022 Office Visit Neurology Yair Campos MD [address] [facility] [place] [place] [address] (Wo rk) documented as of this encounter Visit Diagnoses Diagnosis Trigger finger, acquired - Primary Trigger finger (acquired) Type 2 diabetes mellitus with complicati on, without long-term current use of insulin (H) documented in this encounter Additional Health Concerns Assessment Noted Time PHQ-9 Depression Total Score: 8 01/07/2019 2:02 PM CDT documented as of this encounter Care Teams Otr Refrigerated Cdl Truck Driver Relationship Specialty Start Date End Date Krystin Christie PCP - General Nurse Practitioner 12/15/17 09/08/19 SAURABH Engel [facility] [address] [place] [address] Tali Vilchis MD INTERNAL MEDICINE - 04/10/15 ENDOCRINOLOGY, DIABETES [address] [facility] [address] [place], [place] [address] Anat Fuller MD Internal Medicine 04/10/1509/16 MD Renee [address] [facility] [address] [place], [place] [address] Janny Hutton Physician Automotive Lot Attendant Physician Automotive Lot Attendant 06/30/15 09/17/19 CARLA Mckeon [address] [facility] [address] [place] [address] Krystin Christie Assigned PCP 08/26/18 01/28/21 SAURABH Engel DIRECTOR OF RETAIL ANALYTICS [address] [facility] [place] [address] Sonja Tinajero Pharmacist Pharmacist 12/24/18 09/17/19 Dev [facility] [address] [place] [id number] Kelly De Oliveira [facility] Pharmacist Pharmacist 01/21/19 06/24/19 [address] [place], [place] [id number] documented as of this encounter
--- OUTSIDE RECORDS SUMMARY | 2022-05-09 11:01 | XMS_ITS | Encounter Summary ---
:1955 Author Organization [place] Address [facility] [address] Care Team Providers Name Role Phone Tali Vilchis MD Unavailable Anat Fuller MD Unavailable [phone] Janny Hutton PA-C Unavailable [phone] Krystin Christie APRN BELT TENDER Primary Care Provider [phone] Krystin Christie APRN BELT TENDER Unavailable [phone] Sonja Tinajero [facility] Unavailable [phone] Kelly De Oliveira [facility] Unavailable Reason for Visit Reason Comments Pain Pain Encounter Details Date Type Department Care Team Description 05/29/2019 Office Visit [facility] Eric Abdi Trigger thumb of both hands (Primary Dx); Sports Medicine MD J[facility] in [facility] [address] [address] [place] [address] [address] [place] [address] [phone] Social History Tobacco Use Types Packs/Day Years Used Date Smoking Tobacco: Never Smokeless Tobacco: Never Alcohol Use Standard Drinks/Week Comments No 0 (1 standard drink = 0.6 oz pure alcoho l) Sex Assigned at Date Recorded Female 08/17/2018 10:39 PM 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 documented as of this encounter Last Filed Vital Signs Vital Sign Reading Time Taken Comments Blood Pressure 133/83 05/29/2019 8:55 AM WOOD MODEL MAKER Pulse - - Temperature - - Respiratory Rate - - Oxygen Saturation - - Inhaled Oxygen Concentration - - Weight 91.6 kg (202 lb) 05/29/2019 8:55 AM WOOD MODEL MAKER Height 160 cm (5' 3) 05/29/2019 8:55 AM WOOD MODEL MAKER Body Mass Index 35.78 05/29/2019 8:55 AM WOOD MODEL MAKER documented in this encounter Progress Notes Eric Abdi MD - 05/29/2019 9:00 AM CST [facility] Follow-up Visit s May 29, 2019 PCP: Krystin Christie Subjective: Becki is a 64 year old female who is seen in follow up for evaluation of Chief Complaint Patient presents with ??? Left Hand - Pain ??? Right Hand - Pain Her last visit was on 05/08/2019. Since that time, symptoms have been better than before. Becki Ridley is accompanied today by self. Patient had a bilateral trigger finger Cortisone injection on 05/08/2019 that provided 90% relief. Patient has noticed improved symptoms with injection treatment. Pain is located left > right thumb, waxing and waning. Patient is using no aids. Patient denies any new injuries. Patient's past medical, surgical, social and family histories are reviewed today. History from previous visit on 05/08/2019 Injury: Reports insidious onset without acute precipitating [...] systems reviewed and are negative. Physical Exam Ht 1.6 m (5' 3) Wt 91.6 kg (202 lb) BMI 35.78 kg/m?? Constitutional:well-developed, well-nourished, and in no distress. Cardiovascular: Intact distal pulses. Neurological: alert. Gait Normal: Gait, station, stance, and balance appear normal for age Skin: Skin is warm and dry. Psychiatric: Mood and affect normal. Respiratory: unlabored, speaks in full sentences Lymph: no LAD, no lymphangitis Right Hand Exam Tenderness The patient is experiencing no tenderness. Range of Motion Wrist Extension: normal Flexion: normal Pronation: normal Supination: normal Hand MP Thumb: normal Muscle Strength The patient has normal right wrist strength. Tests Alexa's test: negative Other Erythema: absent Scars: absent Sensation: normal Pulse: present Comments: Mild swelling diffusely about the MP joints and PIP joints, trace mild ulnar drift. Left Hand Exam Tenderness The patient is experiencing no tenderness. Range of Motion Wrist Extension: normal Flexion: normal Pronation: normal Supination: normal Hand MP Thumb: normal Muscle Strength The patient has normal left wrist strength. Tests Alexa's test: negative Other Erythema: absent Sensation: normal Pulse: present Comments: Mild swelling diffusely about the MP joints and PIP joints, trace mild ulnar drift. Component Latest Ref Rng & Units 05/08/2019 Sed Rate 0 - 30 mm/h 11 CRP Inflammation 0.0 - 8.0 mg/L 11.0 (H) Cyclic Citrullinated Peptide Antibody, IgG <7 U/mL 1 ASSESSMENT/PLAN ICD-10-CM 1. Trigger thumb of both hands M65.311 M65.312 2. Pain in multiple finger joints M25.549 Improvement in bilateral trigger thumbs, though with some persistent nodules on the palmar aspects of the thumb MP joints bilaterally. Concerned that this may recur. Too early to repeat injections, could reconsider this at 6 weeks, though if recurrence she may be a better surgical candidate. She will monitor things over the next few weeks Mildly elevated CRP, otherwise normal labs. She does have a long known history of an autoimmune issue, which has never been distantly defined. Reassurance, no sign of rheumatoid arthritis. Procedures MODEL MAKER documented in this encounter Plan of Treatment Upcoming Encounters Date Type Specialty Care Team Description 05/19/2022 Office Visit ENT Dima Hidalgo M D [address] [facility] [place], [place] [address] (Wo rk) 08/02/2022 Office Visit Neurology Yair Campos MD [address] [place] [address] (Wo rk) documented as of this encounter Visit Diagnoses Diagnosis Trigger thumb of both hands - Primary Pain in multiple finger joints documented in this encounter Additional Health Concerns Assessment Noted Time PHQ-9 Depression Total Score: 8 01/07/2019 2:02 PM CDT documented as of this encounter Care Teams Webmaster Relationship Specialty Start Date End Date Krystin Christie PCP - General Nurse Practitioner 12/15/17 09/08/19 SAURABH Engel BELT TENDER [address] [facility] [place] [address] Tali Vilchis MD INTERNAL MEDICINE - 04/10/15 MD ENDOCRINOLOGY, DIABETES [address] [facility] [address] [place] [address] Anat Fuller MD Internal Medicine 04/10/1509/16 MD Renee [address] [facility] [address] [place], [place] [address] Janny Hutton Physician Religious Education Director Physician Religious Education Director 06/30/15 09/17/19 CARLA Mckeon [address] [facility] [address] [place], [place] [address] Krystin Christie Assigned PCP 08/26/18 01/28/21 SAURABH Engel BELT TENDER [address] [facility] [place] [address] Sonja Tinajero Pharmacist Pharmacist 12/24/18 09/17/19 Dev [facility] [address] [place] [address] Kelly De Oliveira [facility] Pharmacist Pharmacist 01/21/19 06/24/19 [address] [place], [place] [address] documented as of this encounter
--- OUTSIDE RECORDS SUMMARY | 2022-05-09 11:01 | XMS_ITS | Encounter Summary ---
:1955 Author Organization [place] Address [address] [facility] [place] [address] Care Team Providers Name Role Phone Tali Vilchis MD Unavailable Anat Fuller MD Unavailable [phone] Janny Hutton PA-C Unavailable [phone] Krystin Christie APRN [facility] Primary Care Provider [phone] Krystin Christie APRN [facility] Unavailable [phone] Sonja Tinajero [facility] Unavailable [phone] Kelly De Oliveira [facility] Unavailable Encounter Details Date Type Department Care Team Description 05/06/2019 [facility] Only [facility] Krytsin Christieiniccarole l [facility] Lola Engel APRN hypothyroidism [address] [facility] [address] [facility] [address] [facility] [place] [address] [place] [id number] Social History Tobacco Use Types Packs/Day Years Used Date Smoking Tobacco: Never Smokeless Tobacco: Never Alcohol Use Standard Drinks/Week Comments No 0 (1 standard drink = 0.6 oz pure alcoho l) Sex Assigned at Date Recorded Female 08/17/2018 10:39 PM NURSE 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 documented as of this encounter Plan of Treatment Upcoming Encounters Date Type Specialty Care Team Description 05/19/2022 Office Visit ENT Dima Hidalgo M D [address] [facility] [address] [place], [place] [address] (Wo rk) 08/02/2022 Office Visit Neurology Yair Campos MD [address] [facility] [place] [address] (Wo rk) documented as of this encounter Visit Diagnoses Diagnosis Subclinical hypothyroidism Other specified acquired hypothyroidism documented in this encounter Additional Health Concerns Assessment Noted Time PHQ-9 Depression Total Score: 8 01/07/2019 2:02 PM CDT documented as of this encounter Care Teams Outboard Motor Mechanic Relationship Specialty Start Date End Date Krystin Christie PCP - General Nurse Practitioner 12/15/17 09/08/19 SAURABH Engel HEARING HEALTH TECHNICIAN [address] [facility] [place] [id number] Tali Vilchis MD INTERNAL MEDICINE - 04/10/15 ENDOCRINOLOGY, DIABETES [address] [facility] [address] [place] [address] Anat Fuller MD Internal Medicine 04/10/1509/[address] [facility] [address] [place] [address] Janny Hutton Physician Corporate Legal Intern Physician Corporate Legal Intern 06/30/15 09/17/19 CARLA Mckeon [address] [facility] [address] [place] [address] Krystin Christie Assigned PCP 08/26/18 01/28/21 SAURABH Engel HEARING HEALTH TECHNICIAN [address] [facility] [place] [id number] Sonja Tinajero Pharmacist Pharmacist 12/24/18 09/17/19 Dev [facility] [address] [facility] [place] [id number] Kelly De Oliveira, [facility] Pharmacist Pharmacist 01/21/19 06/24/19 [address] [place], [place] [id number] documented as of this encounter
--- OUTSIDE RECORDS SUMMARY | 2022-05-09 11:01 | XMS_ITS | Encounter Summary ---
:1955 Author Organization [place] Address [address] [facility] [place] [address] Care Team Providers Name Role Phone Tali Vilchis MD Unavailable Anat Fuller MD Unavailable [phone] Janny Hutton PA-C Unavailable [phone] Krystin Christie APRN THEATER TECHNICIAN Primary Care Provider [phone] Krystin Christie APRN THEATER TECHNICIAN Unavailable [phone] Sonja Tinajero [facility] Unavailable [phone] Kelly De Oliveira [facility] Unavailable Encounter Details Date Type Department Care Team Description 05/03/2019 Orders Only [facility] Typ e 2 diabetes mellitus with complication, without long-term current use of insulin (H); [facility] Subclinical hypothyroidism [address] [facility] [address] [place] [id number] Social History Tobacco Use Types Packs/Day Years Used Date Smoking Tobacco: Never Smokeless Tobacco: Never Alcohol Use Standard Drinks/Week Comments No 0 (1 standard drink = 0.6 oz pure alcoho l) Sex Assigned at Date Recorded Female 08/17/2018 10:39 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 Of course it is possible that she had medication left over at the time of last fill, and has thus been taking meds regularly. However, I think it would be safer to recheck in 6-8 weeks andfocus on taking daily. Radha Kearney RN - 05/03/2019 2:00 PM CDT Patient notified. Radha Kearney RN BSN [facility] documented in this encounter Plan of Treatment Upcoming Encounters Date Type Specialty Care Team Description 05/19/2022 Office Visit ENT Dima Hidalgo M D [address] [place], [place] [address] (Sarah pino) 08/02/2022 Office Visit Neurology Yair Campos MD [address] [facility] [place], [place] [address] (Sarah pino) Pending Results Name Type Priority Associated Diagnoses Date/Ti me T4 free Lab Routine Type 2 diabetes mellitus wit h 05/03/2019 2:13 PM CDT complication, without long-t erm current use of insulin (H) documented as of this encounter Procedures Procedure Name Priority Date/Time Associated Diagnosis Comme nts TSH WITH FREE T4 Routine 05/03/2019 2:13 PM Subclinical Resul ts for this REFLEX CDT hypothyroidism procedure are in the results section. T4 FREE Routine 05/03/2019 2:13 PM Type 2 diabetes Result s for this CDT mellitus with procedure are in complication, without the re sults long-term current use sectio n. of insulin (H) T4 FREE Routine 05/03/2019 2:13 PM Type 2 diabetes CDT mellitus with complication, without long-term current use of insulin (H) HEMOGLOBIN A1C Routine 05/03/2019 2:13 PM Type 2 diabetes Resu lts for this CDT mellitus with procedure are in complication, without the re sults long-term current use sectio n. of insulin (H) documented in this encounter Results T4 free (05/03/2019 2:13 PM CDT) athologist Signature T4 Free 1.20 0.76 - 1.46 05/03/2019 [facility] ng/dL 8:37 PM CDT [facility] Specimen Anatomical Collection Method Collection Time Receive d Time (Source) Location / / Volume Laterality 05/03/2019 2:13 PM 9 2:14 CDT PM CDT Krystin Christie APRN, CNP LAB - BLOOD ORDERABLES Performing Organization Address City/[facility]/ZIP Code Phon e Number [facility] [address] [place] [phone] (ABNORMAL) TSH with free T4 reflex (05/03/2019 2:13 PM CDT) athologist [facility] TSH 6.70 (H) 0.40 - 05/03/2019 [facility] 4.00 mU/L 8:21 PM CDT [facility] Specimen Anatomical Collection Method Collection Time Receive d Time (Source) Location / / Volume Laterality Blood specimen 05/03/2019 2:13 PM 019 2:14 (specimen) CDT PM CDT Krystin Christie APRN, CNP LAB - BLOOD ORDERABLES Performing Organization Address City/[facility]/ZIP Code Phon e Number [facility] [address], [place] [address] (ABNORMAL) Hemoglobin A1c (05/03/2019 2:13 PM CDT) athologist Signature Hemoglobin A1C 8.4 (H) 0 - 5.6 % 05/03/2019 [place] 2:31 PM CDT [facility] Comment: Results confirmed by repeat test Normal <5.7% Prediabetes 5.7-6.4% ??Diab etes 6.5% or higher - adopted from ADA consensus guidelines. Specimen Anatomical Collection Method Collection Time Receive d Time (Source) Location / / Volume Laterality Blood specimen 05/03/2019 2:13 PM 019 2:14 (specimen) CDT PM CDT Krystin Maren Pratik TOOL/DIE MAKER THEATER TECHNICIAN LAB - BLOOD ORDERABLES Performing Organization Address City/State/ZIP Code Phon e Number [facility] [place] [address] documented in this encounter Visit Diagnoses Diagnosis Type 2 diabetes mellitus with complicati on, without long-term current use of insulin (H) Subclinical hypothyroidism Other specified acquired hypothyroidism documented in this encounter Additional Health Concerns Assessment Noted Time PHQ-9 Depression Total Score: 8 01/07/2019 2:02 PM CDT documented as of this encounter Care Teams Nightman Relationship Specialty Start Date End Date Krystin Christie PCP - General Nurse Practitioner 12/15/17 09/08/19 SAURABH Engel THEATER TECHNICIAN [address] [facility] [place] [id number] Tali Vilchis MD INTERNAL MEDICINE - 04/10/15 ENDOCRINOLOGY, DIABETES [address] [facility] [address] [place], [place] [address] Anat Fuller MD Internal Medicine 04/10/1509/16 MD Renee [address] [facility] [address] [place], [place] [address] Janny Hutton Physician Chocolate Finisher Physician Chocolate Finisher 06/30/15 09/17/19 CARLA cMkeon 420 [facility] [address] [place], [place] [address] Krystin Christie Assigned PCP 08/26/18 01/28/21 SAURABH Engel THEATER TECHNICIAN [address] [facility] [place] [address] Sonja Tinajero Pharmacist Pharmacist 12/24/18 09/17/19 Dev [facility] [address] [facility] [place] [address] Kelly De Oliveira [facility] Pharmacist Pharmacist 01/21/19 06/24/19 30[address] [place] [address] documented as of this encounter
--- OUTSIDE RECORDS SUMMARY | 2022-05-09 11:01 | XMS_ITS | Encounter Summary ---
:1955 Author Organization [place] Address [address] [facility] [place] [address] Care Team Providers Name Role Phone Tali Vilchis MD Unavailable Anat uFller MD Unavailable [phone] Janny Hutton PA-C Unavailable [phone] Krystin Christie APRN SKYLIGHTS ASSEMBLER Primary Care Provider Krystin Christie APRN, CNP Unavailable [phone] Sonja Tinajero [facility] Unavailable [phone] Reason for Referral Consultation (Routine) - Closed Specialty Diagnoses / Procedures Referred By Contact Refer red To Contact Diagnoses VILLAREAL (nonalcoholic steatohepatitis) Krystin Christie UMPHYS GASTROENTEROLOGY SAURABH MALDONADO [address] SECOND FLOOR [facility] [place], [place] [phone] Phone: [phone] Fax: Referral ID Status Reason Start Date Expiration Date Visits Requ ested Visits Authorized [id number] Closed 01/07/2019 01/07/2020 1 1 Reason for Visit Reason Comments Diabetes Asthma Encounter Details Date Type Department Care Team Description 01/07/2019 Office Visit [facility] Krystin Christie APRN CNP [address] [facility] [place] [address] VILLAREAL (nonalcoholic steatohepatitis) (Cassie velez Dx); Clinic [facility] 3[facility], Bradley Rn Pal Type 2 diabetes mellitus with complicati on, without long-term current use of insulin (H); [address] [place] Morbid obe sity, unspecified obesity type (H); [address] KIERRA (generalized anxiety dis order) [address] [place] [address] Social History Tobacco Use Types Packs/Day Years Used Date Smoking Tobacco: Never Smokeless Tobacco: Never Alcohol Use Standard Drinks/Week Comments No 0 (1 standard drink = 0.6 oz pure alcoho l) Sex Assigned at Date Recorded Female 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 documented as of this encounter Last Filed Vital Signs Vital Sign Reading Time Taken Comments Blood Pressure 104/64 01/07/2019 1:57 PM CDT Pulse 84 01/07/2019 1:57 PM CDT Temperature 36.6 ??C (97.8 ??F) 01/07/2019 1:57 PM CDT Respiratory Rate - - Oxygen Saturation 96% 01/07/2019 1:57 PM CDT Inhaled Oxygen Concentration - - Weight 91.5 kg (201 lb 11.2 oz) 01/07/2019 1:57 PM CDT Height 160 cm (5' 3) 01/07/2019 1:57 PM CDT Body Mass Index 35.73 01/07/2019 1:57 PM CDT documented in this encounter Patient Instructions Patient InstructionsMolitorKrystin APRN CNP - 01/07/2019 1:50 PM CDT Please increase Metformin back up to 4 tabs. Continue glipizide 5mg. Monitor sugars. See me in 3 months. I'll get back to you about labs, including the liver tests. Please see the liver doctor at the . Ask about shingles shot at your pharmacy. documented in this encounter Progress Notes Krystin Christie APRN CNP - 01/07/2019 1:50 PM CDT Subjective Becki Ridley is a 63 year old female who presents to clinic today for the following health issues: Patient is asking about doing liver function testing today. States she is not takin as much metformin as prescribed - taking 3 not 4 HPI Diabetes Follow-up ?? How often are you checking your blood sugar? Not at all in last week ?? What time of day are you checking your blood sugars (select all that apply)? Before meals when was checking before ?? Have you had any blood sugars above 200? No ?? Have you had any blood sugars below 70? No ?? What symptoms do you notice when your blood sugar is low? None ?? What concerns do you have today about your diabetes? None ?? Do you have any of these symptoms? (Select all that apply) Weight gain ?? Have you had a diabetic eye exam in the last 12 months? Yes - 09/11/18 BP Readings from Last 2 Encounters: 10/18/18 116/72 09/20/18 108/62 Hemoglobin A1C (%) Date Value 10/15/2018 7.7 (H) 08/16/2018 11.6 (H) LDL Cholesterol Calculated (mg/dL) Date Value 08/16/2018 135 (H) Diabetes Management Resources Asthma Follow-Up Was ACT completed today? Yes ACT Total Scores 01/07/2019 ACT TOTAL SCORE (Goal Greater than or Equal to 20) 23 In the past 12 months, how many times did you visit the emergency room for your asthma without beingadmitted to the hospital? 1 In the past 12 months, how many times were you hospitalized overnight because of your asthma? 1 ?? How many days per week do you miss taking your asthma controller medication? I do not have an asthma controller medication ?? Please describe any recent triggers for your asthma: None ?? Have you had any Emergency Room Visits, Urgent Care Visits, or Hospital Admissions since your last office visit? No ?? Amount of exercise or physical activity: daily activities, occasionally goes to gym ?? Problems taking medications regularly: Yes - occasionally forgets to take ?? Medication side effects: none ?? Diet: diabetic, carbohydrate counting and states she gets bad sugar cravings ROS: const/psych/gi/endo otherwise negative OBJECTIVE: BP 104/64 (BP Location: Right arm, Cuff Size: Adult Large) Pulse 84 Temp 97.8 ??F (36.6 ??C) (Tympanic) Ht 1.6 m (5' 3) Wt 91.5 kg (201 lb 11.2 oz) SpO2 96% BMI 35.73 kg/m?? CONSTITUTIONAL: Alert, well-nourished, well-groomed, NAD RESP: Lungs CTA. No wheeze, rhonchi, rales. CV: HRRR S1 S2 No MRG. No peripheral edema GI: Abdomen flat. BS x 4. No TTP. No HSM or masses. No CVAT ASSESSMENT/PLAN: (K75.81) VILLAREAL (nonalcoholic steatohepatitis) (primary encounter diagnosis) Comment: Saw a story editor who she didn't like. Has not been eating low carb as suggested Plan: Comprehensive metabolic panel, Lipase, GASTROENTEROLOGY ADULT REF CONSULT ONLY -Recheck LFTs, -Discussed dietary interventions -Referred to a different story editor. (E11.8) Type 2 diabetes mellitus with complication, without long-term current use of insulin (H) Comment: Not quite controlled on 1500 metformin and glipizide 5mg. No longer having lows. Plan: glipiZIDE (GLUCOTROL XL) 5 MG 24 hr tablet -Re-start checking sugars -Stop candy -Increase metformin from 6960-3083 -F/U 3 months with labs before. (E66.01) Morbid obesity, unspecified obesity type (H) Plan: metFORMIN (GLUCOPHAGE-XR) 500 MG 24 hr tablet ISAURO Moreno-SONAM. documented in this encounter Plan of Treatment Upcoming Encounters Date Type Specialty Care Team Description 05/19/2022 Office Visit [facility]idal[facility] M D [address] [facility] [place] [place] [address] (Sarah pino) 08/02/2022 Office Visit Neurology Yair Campos MD [address] [place] [phone] (Sarah pino) Scheduled Referrals Name Type Priority Associated Diagnoses Order S chedule GASTROENTEROLOGY ADULT REF Referral Routine VILLAREAL (nonalcoh olic Ordered: 01/07/2019 CONSULT ONLY steatohepatitis) documented as of this encounter Procedures Procedure Name Priority Date/Time Associated Comments Diagnosis LIPASE Routine 01/07/2019 1:36 PM VILLAREAL (nonalcoholic Res ults for this CDT steatohepatitis) procedure a re in the results section. COMPREHENSIVE Routine 01/07/2019 1:36 PM VILLAREAL (nonalcoholic Re sults for this METABOLIC PANEL CDT steatohepatitis) procedur e are in the results section. documented in this encounter Results (ABNORMAL) Hemoglobin A1c (05/03/2019 2:13 PM CDT) athologist Signature Hemoglobin A1C 8.4 (H) 0 - 5.6 % 05/03/2019 [place] 2:31 PM CDT [facility] Comment: Results confirmed by repeat test Normal <5.7% Prediabetes 5.7-6.4% ??Diab etes 6.5% or higher - adopted from ADA consensus guidelines. Specimen Anatomical Collection Method Collection Time Receive d Time (Source) Location / / Volume Laterality Blood specimen 05/03/2019 2:13 PM 019 2:14 (specimen) CDT PM CDT Krystin Christie APRN, CNP LAB - BLOOD ORDERABLES Performing Organization Address City/State/ZIP Code Phon e Number [facility] [address] [place] [phone] Lipase (01/07/2019 1:36 PM CDT) athologist Signature Lipase 201 73 - 393 01/07/2019 [facility] U/L 8:32 PM T [facility] Specimen Anatomical Collection Method Collection Time Receive d Time (Source) Location / / Volume Laterality Blood specimen 01/07/2019 1:36 PM 019 2:20 (specimen) CDT PM CDT Krystin Christie APRN SKYLIGHTS ASSEMBLER LAB - BLOOD ORDERABLES Performing Organization Address City/State/ZIP Code Phon e Number [address] [address] [facility] (ABNORMAL) Comprehensive metabolic panel (01/07/2019 1:36 PM CDT) [facility] gist Method Time Signature Sodium 141 133 - 144 01/08/2019 [place] mmol/L 11:38 AM CDT [facility] Potassium 4.0 3.4 - 5.3 01/08/2019 [place] mmol/L 11:38 AM T [facility] Chloride 107 94 - 109 01/08/2019 [place] mmol/L 11:38 AM T [facility] Carbon Dioxide 21 20 - 32 01/08/2019 [place] mmol/L 11:55 AM T [facility] Anion Gap 13 3 - 14 01/08/2019 [place] mmol/L 11:55 AM T [facility] Glucose 213 (H) 70 - 99 01/08/2019 [place] mg/dL 11:55 AM T [facility] Urea Nitrogen 10 7 - 30 01/08/2019 [place] mg/dL 11:55 AM T [facility] Creatinine 0.57 0.52 - 01/08/2019 [place] 1.04 mg/dL 11:55 AM T [facility] GFR Estimate >90 >60 01/08/2019 [place] mL/min/{1. 11:55 AM T [facility] 73_m2} [facility] Comment: Non GFR Calc Starting 07/03/2018, serum creatinine ba sed estimated GFR (eGFR) will be calculated using the Chronic Kidney Dise [place] Epidemiology Collaboration (CKD-EPI) equation. GFR Estimate If >90 >60 mL/min/{1.73_m2} 01/08/2019 11 :55 AM [facility] Black [facility] Comment: GFR Calc Starting 07/03/2018, serum creatinine ba sed estimated GFR (eGFR) will be calculated using the Chronic Kidney Dise [place] Epidemiology Collaboration (CKD-EPI) equation. Calcium 9.1 8.5 - 10.1 01/08/2019 11:55 AM [facility] mg/dL [facility] Bilirubin Total 0.4 0.2 - 1.3 01/08/2019 12:02 PM [facility] mg/dL [facility] Albumin 3.6 3.4 - 5.0 g/dL 01/08/2019 12:02 PM [facility] Protein Total 7.1 6.8 - 8.8 g/dL 01/08/2019 12:02 PM [facility] Alkaline Phosphatase 72 40 - 150 U/L 01/08/2019 12:[facility] [address] [facility] ALT 96 (H) 0 - 50 U/L 01/08/2019 12:02 PM [facility] CDT [facility] AST 63 (H) 0 - 45 U/L 01/08/2019 12:02 PM [facility] CDT [facility] Specimen Anatomical Collection Method Collection Time Receive d Time (Source) Location / / Volume Laterality Blood specimen 01/07/2019 1:36 PM 019 2:20 (specimen) CDT PM CDT Krystin Christie APRN SKYLIGHTS ASSEMBLER LAB - BLOOD ORDERABLES Performing Organization Address City/State/ZIP Code Phon e Number [facility] [address] [place] [address] documented in this encounter Visit Diagnoses Diagnosis VILLAREAL (nonalcoholic steatohepatitis) - Pr imary Other chronic nonalcoholic liver disease Type 2 diabetes mellitus with complicati on, without long-term current use of insulin (H) Morbid obesity, unspecified obesity type (H) KIERRA (generalized anxiety disorder) Generalized anxiety disorder documented in this encounter Additional Health Concerns Assessment Noted Time PHQ-9 Depression Total Score: 8 01/07/2019 2:02 PM CDT documented as of this encounter Care Teams Larry Operator Relationship Specialty Start Date End Date Krystin Christie PCP - General Nurse Practitioner 12/15/17 09/08/19 SAURABH Engel SKYLIGHTS ASSEMBLER [address] [facility] [place] [phone] Tali Vilchis MD INTERNAL MEDICINE - 04/10/15 ENDOCRINOLOGY, DIABETES [address] [facility] [address] & METABOLISM [address] [place], [place] [address] Anat Fuller MD Internal Medicine 04/10/1509/16 MD Renee [address] [facility] [address] [place], [place] [phone] Janny Hutton Physician Burglar Alarm Operator Physician Burglar Alarm Operator 06/30/15 09/17/19 CARLA Mckeon [address] [place], [place] [phone] Krystin Christie PCP 08/26/18 01/28/21 SAURABH Engel SKYLIGHTS ASSEMBLER [address] [facility] [place] [phone] Sonja Tinajero Pharmacist Pharmacist 12/24/18 09/17/19 Dev, [facility] [address] [facility] [place] [id number] documented as of this encounter
--- OUTSIDE RECORDS SUMMARY | 2022-05-09 11:01 | XMS_ITS | Encounter Summary ---
:1955 Author Organization [place] Address [facility] [place] [address] Care Team Providers Name Role Phone Tali Vilchis MD Unavailable Anat Fuller MD Unavailable [phone] Janny Hutton PA-C Unavailable [phone] Krystin Christie APRN HAND KISS SETTER Primary Care Provider [phone] Krystin Christie APRN HAND KISS SETTER Unavailable [phone] Sonja Tinajero [facility] Unavailable [phone] Kelly De Oliveira [facility] Unavailable Encounter Details Date Type Department Care Team Description 05/08/2019 Travel Social History Tobacco Use Types Packs/Day Years Used Date Smoking Tobacco: Never Smokeless Tobacco: Never Alcohol Use Standard Drinks/Week Comments No 0 (1 standard drink = 0.6 oz pure alcoho l) Sex Assigned at Date Recorded Female 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 documented as of this encounter Plan of Treatment Upcoming Encounters Date Type Specialty Care Team Description 05/19/2022 Office Visit ENT Dima Hidalgo M D [address] [place] [address] (Wo rk) 08/02/2022 Office Visit Neurology Yair Campos MD [address] [place] [address] [place] [address] (Wo rk) documented as of this encounter Visit Diagnoses Not on filedocumented in this encounter Additional Health Concerns Assessment Noted Time PHQ-9 Depression Total Score: 8 01/07/2019 2:02 PM CDT documented as of this encounter Care Teams Dumpman Relationship Specialty Start Date End Date Krystin Christie PCP - General Nurse Practitioner 12/15/17 09/08/19 SAURABH Engel HAND KISS SETTER [address] [facility] [place] [address] Tali Vilchis MD INTERNAL MEDICINE - 04/10/15 ENDOCRINOLOGY, DIABETES [address] [place], [place] [address] Anat Fuller MD Internal Medicine 04/10/1509/16 MD Renee [address] [place], [place] [phone] Janny Hutton Physician Track Repair Worker Physician Track Repair Worker 06/30/15 09/17/19 CARLA Mckeon [address] [facility] [address] [place], [place] [address] Krystin Christie Assigned PCP 08/26/18 01/28/21 SAURABH Engel HAND KISS SETTER [address] [facility] [place] [address] Sonja Tinajero Pharmacist Pharmacist 12/24/18 09/17/19 Dev [facility] [address] [place] [address] [address] Kelly De Oliveira [facility] Pharmacist Pharmacist 01/21/19 06/24/19 [address] [place] [address] documented as of this encounter
--- OUTSIDE RECORDS SUMMARY | 2022-05-09 11:01 | XMS_ITS | Encounter Summary ---
:1955 Author Organization [place] Address [facility] [address] Care Team Providers Name Role Phone Tali Vilchis MD Unavailable Anat Fuller MD Unavailable [phone] Janny Hutton PA-C Unavailable [phone] Krystin Christie APRN [facility] Primary Care Provider Krystin Christie APRN [facility] Unavailable [phone] Sonja Tinajero [facility] Unavailable [phone] Kelly De Oliveira [facility] Unavailable Encounter Details Date Type Department Care Team Description 05/06/2019 [facility] Krystin Christie Eagan APRN ORDER MANAGEMENT SPECIALIST [address] [facility] [address] [facility] [address] [place] [address] [place] [address] [phone] Social History Tobacco Use Types Packs/Day Years Used Date Smoking Tobacco: Never Smokeless Tobacco: Never Alcohol Use Standard Drinks/Week Comments No 0 (1 standard drink = 0.6 oz pure alcoho l) Sex Assigned at Date Recorded Female 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 documented as of this encounter Plan of Treatment Upcoming Encounters Date Type Specialty Care Team Description 05/19/2022 Office Visit E[facility]idal[facility] M [facility] [address] [facility] [place] [address] (Wo rk) 08/02/2022 Office Visit Neurology Yair Campos MD [address] [facility] [place] [address] (Wo rk) documented as of this encounter Visit Diagnoses Diagnosis Subclinical hypothyroidism - Primary Other specified acquired hypothyroidism documented in this encounter Additional Health Concerns Assessment Noted Time PHQ-9 Depression Total Score: 8 01/07/2019 2:02 PM CDT documented as of this encounter Care Teams Middle School Teacher Relationship Specialty Start Date End Date Krystin Christie PCP - General Nurse Practitioner 12/15/17 09/08/19 SAURABH Engel ORDER MANAGEMENT SPECIALIST [address] [facility] [place] [phone] Tali Vilchis MD INTERNAL MEDICINE - 04/10/15 ENDOCRINOLOGY, DIABETES [address] [facility] [address]MC [address]OLISM [address] [place] [address] Anat Fuller MD Internal Medicine 04/10/1509/16 MD Renee [address] [facility] [address] [place] [address] Janny Hutton Physician Abstract Searcher Physician Abstract Searcher 06/30/15 09/17/19 CARLA Mckeon [address] [facility] 803 [place] [address] Krystin Christie Assigned PCP 08/26/18 01/28/21 SAURABH Engel ORDER MANAGEMENT SPECIALIST [address] [facility] [place] [phone] Sonja Tinajero Pharmacist Pharmacist 12/24/18 09/17/19 Dev [facility] [address] [facility] [place] [phone] Kelly De Oliveira, [facility] Pharmacist Pharmacist 01/21/19 06/24/19 [address] [place], [place] [phone] documented as of this encounter
--- OUTSIDE RECORDS SUMMARY | 2022-05-09 11:01 | XMS_ITS | Encounter Summary ---
:1955 Author Organization [place] Address [address] [facility] [place] [address] Care Team Providers Name Role Phone Tali Vilchis MD Unavailable Anat Fuller MD Unavailable [phone] Janny Hutton PA-C Unavailable [phone] Krystin Christie APRN TRANSFORMER ASSEMBLER Primary Care Provider [phone] Krystin Christie APRN TRANSFORMER ASSEMBLER Unavailable [phone] Sonja Tinajero [facility] Unavailable [phone] Reason for Visit Reason Comments Urgent Care Shingles possible shingles (back, bry ulders, ankles). 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 documented as of this encounter Last Filed Vital Signs Vital Sign Reading Time Taken Comments Blood Pressure 112/80 01/20/2019 11:49 AM CDT Pulse 71 01/20/2019 11:49 AM CDT Temperature 36.9 ??C (98.4 ??F) 01/20/2019 11:49 AM CDT Respiratory Rate - - Oxygen Saturation 95% 01/20/2019 11:49 AM CDT Inhaled Oxygen Concentration - - Weight 91.2 kg (201 lb) 01/20/2019 11:49 AM CDT Height 160 cm (5' 3) 01/20/2019 11:49 AM CDT Body Mass Index 35.61 01/20/2019 11:49 AM CDT documented in this encounter Patient Instructions Patient InstructionsBrock Man MD - 01/20/2019 11:25 AM CDT Follow up with the primary care provider if not better in 8-10 days. Sarna Lotion or Calamine Lotion for the itching. documented in this encounter Progress Notes Brock Man MD - 01/20/2019 11:25 AM CDT SUBJECTIVE: Becki Ridley is a 64 year old female who presents to the clinic today for a possible shingles josue the bilateral upper back, bilateral upper arms (over the triceps region) and one lesion on the dorsal left foot. Patient has noticed red, itchy patches and sores. Onset of rash was four days ago. The first lesion was on the right upper arm (perhaps). No discharge. Rash is worsening. . . Quality/symptoms of rash: redness, itching, rash seems to be worsening. No high fevers. Previous history of a similar rash? Yes. No sick contacts with a similar rash. No new shampoos/soaps/detergents/creams/clothes/detergents. . Past Medical History: Diagnosis Date ??? Angioedema ??? Arthritis ??? Asthma ??? Blood transfusion ??? Depression ??? DM2 (diabetes mellitus, type 2) (H) ??? Hypertension ??? Lower extremity edema ??? VILLAREAL (nonalcoholic steatohepatitis) ??? Restless legs syndrome ??? Restrictive lung disease ??? Sleep apnea ??? Subclinical hypothyroidism 2010 Current Outpatient Medications Medication Sig Dispense Refill ??? albuterol (PROAIR HFA/PROVENTIL HFA/VENTOLIN HFA) 108 (90 Base) MCG/ACT inhaler Inhale 2 puffs into the lungs every 6 hours ??? blood glucose (ACCU-CHEK ANNIE PLUS) test [...] directed. 4 Box 3 ??? busPIRone (BUSPAR) 5 MG tablet Take 1 tablet (5 mg) by mouth 2 times daily for 7 days, THEN 2 tablets (10 mg) 2 times daily. 346 tablet 0 ??? EPINEPHrine (EPIPEN 2-KITTY) 0.3 MG/0.3ML injection Inject 0.3 mg into the muscle once as needed. ??? glipiZIDE (GLUCOTROL XL) 5 MG 24 hr tablet Take 1 tablet (5 mg) by mouth daily 90 tablet 0 ??? ipratropium - albuterol 0.5 [...] metFORMIN (GLUCOPHAGE-XR) 500 MG 24 hr tablet TAKE 4 TABLETS(2000 MG) BY MOUTH DAILY 360 tablet 0 ??? order for DME Equipment being ordered: orthopedic Diabetic shoes 1 each 0 ??? STATIN NOT PRESCRIBED (INTENTIONAL) 1 each 2 times daily Please choose reason not prescribed, below ??? Vitamin D, Cholecalciferol, 1000 units TABS Take 1,000 Units by mouth daily Social History Tobacco Use ??? Smoking status: Never Smoker ??? Smokeless tobacco: Never Used Substance Use Topics ??? Alcohol use: No Alcohol/week: 0.0 oz ROS: CONSTITUTIONAL:NEGATIVE for fever, chills, change in weight INTEGUMENTARY/SKIN: POSITIVE for rash EXAM: BP 112/80 Pulse 71 Temp 98.4 ??F (36.9 ??C) (Tympanic) Ht 1.6 m (5' 3) Wt 91.2 kg (201 lb) SpO2 95% BMI 35.61 kg/m?? GENERAL: alert, no acute distress. SKIN: Rash description: Distribution: dermatomal Location: right upper back, right posterior shoulder, right posterior upperarm. Color: red, Lesion type: maculopapular, vesicular, blotchy, scattered discrete lesions with no otherfindings The left upper arm has an isolated red maculopapular lesion. The dorsal left foot has an isolated red papule. ASSESSMENT: Herpes Zoster. PLAN: 1) Rx: Valacyclovir. 2) Follow-up with primary clinic if not improving Brock Man MD documented in this encounter Plan of Treatment Upcoming Encounters Date Type Specialty Care Team Description 05/19/2022 Office Visit ENT Dima Hidalgo M D [address] [place], [place] [address] (Wo rk) 08/02/2022 Office Visit Neurology Yair Campos MD [address] [place] [address] [id number] (Wo rk) documented as of this encounter Visit Diagnoses Diagnosis Herpes zoster without complication - Cassie agustin documented in this encounter Additional Health Concerns Assessment Noted Time PHQ-9 Depression Total Score: 8 01/07/2019 2:02 PM CDT documented as of this encounter Care Teams Flat Grinder Operator Relationship Specialty Start Date End Date Krystin Christie PCP - General Nurse Practitioner 12/15/17 09/08/19 SAURABH Engel TRANSFORMER ASSEMBLER [address] [facility] [place] [id number] Tali Vilchis MD INTERNAL MEDICINE - 04/10/15 MD ENDOCRINOLOGY, DIABETES [address] [place] [address] [facility] & METABOLISM [address] [place] [id number] Anat Fuller MD Internal Medicine 04/10/1509/16 MD Renee [address] [facility] [address] [place] [address] Janny Hutton Physician Nurse First Assist Physician Nurse First Assist 06/30/15 09/17/19 CARLA Mckeon [address] [facility] 803 [place] [address] Krystin Christie Assigned PCP 08/26/18 01/28/21 SAURABH Engel TRANSFORMER ASSEMBLER [address] [facility] [place] [address] Sonja Tinajero Pharmacist Pharmacist 12/24/18 09/17/19 Dev, [facility] [address] [facility] [place] [address] documented as of this encounter
--- OUTSIDE RECORDS SUMMARY | 2022-05-09 11:01 | XMS_ITS | Encounter Summary ---
:1955 Author Organization [place] Address [address] [facility] [place] [address] Care Team Providers Name Role Phone Tali Vilchis MD Unavailable Anat Fuller MD Unavailable [phone] Janny Hutton PA-C Unavailable [phone] Krystin Christie APRN ACADEMIC VICE PRESIDENT Primary Care Provider [phone] Krystin Christie APRN ACADEMIC VICE PRESIDENT Unavailable [phone] Sonja Tinajero [facility] Unavailable [phone] Encounter Details Date Type Department Care Team Description 01/07/2019 Orders Only [facility] Sub clinical hypothyroidism; [facility] Type 2 diabetes mellitus wit hout complication, without long-term current use of insulin (H) [address] [facility] [address] [place] [address] Social History Tobacco Use Types Packs/Day Years Used Date Smoking Tobacco: Never Smokeless Tobacco: Never Alcohol Use Standard Drinks/Week Comments No 0 (1 standard drink = 0.6 oz pure alcoho l) Sex Assigned at Date Recorded 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 Plan of Treatment Upcoming Encounters Date Type Specialty Care Team Description 05/19/2022 Office Visit ENT Dima Hidalgo M D [address] [place] [address] (Wo rk) 08/02/2022 Office Visit Neurology Yair Campos MD [address] [place] [address] (Wo rk) Pending Results Name Type Priority Associated Diagnoses Date/Ti me T4 free Lab Routine Subclinical hypothyroidism 0 01/07/2019 1:34 PM CDT documented as of this encounter Procedures Procedure Name Priority Date/Time Associated Diagnosis Comme nts TSH WITH FREE T4 Routine 01/07/2019 1:34 PM Subclinical Resul ts for this REFLEX CDT hypothyroidism procedure are in the results section. T4 FREE Routine 01/07/2019 1:34 PM Subclinical Results f or this CDT hypothyroidism procedure are in the results section. T4 FREE Routine 01/07/2019 1:34 PM Subclinical CDT hypothyroidism HEMOGLOBIN A1C Routine 01/07/2019 1:34 PM Type 2 diabetes Resu lts for this CDT mellitus without procedure a re in complication, without the re sults long-term current use sectio n. of insulin (H) documented in this encounter Results T4 free (01/07/2019 1:34 PM CDT) athologist Signature T4 Free 1.00 0.76 - 1.46 01/08/2019 [facility] ng/dL 12:37 PM CDT [facility] Specimen Anatomical Collection Method Collection Time Receive d Time (Source) Location / / Volume Laterality 01/07/2019 1:34 PM 9 1:36 CDT PM CDT Krystin Christie APRN ACADEMIC VICE PRESIDENT LAB - BLOOD ORDERABLES Performing Organization Address City/State/ZIP Code Phon e Number [facility] [address] [place] [address] (ABNORMAL) Hemoglobin A1c (01/07/2019 1:34 PM CDT) athologist Signature Hemoglobin A1C 7.7 (H) 0 - 5.6 % 01/07/2019 [facility] 2:09 PM CDT [facility] Comment: Normal <5.7% Prediabetes 5.7-6.4% ??Diab etes 6.5% or higher - adopted from ADA consensus guidelines. Specimen Anatomical Collection Method Collection Time Receive d Time (Source) Location / / Volume Laterality Blood specimen 01/07/2019 1:34 PM 019 1:36 (specimen) CDT PM CDT Krystin Christie APRN, CNP LAB - BLOOD ORDERABLES Performing Organization Address City/[facility]/ZIP Code Phon e Number [facility] [address] [facility] [place] [address] (ABNORMAL) TSH with free T4 reflex (01/07/2019 1:34 PM CDT) P athologist Signature TSH 9.35 (H) 0.40 - 01/08/2019 [facility] 4.00 mU/L 12:07 PM CDT [facility] Specimen Anatomical Collection Method Collection Time Receive d Time (Source) Location / / Volume Laterality Blood specimen 01/07/2019 1:34 PM 019 1:36 (specimen) CDT PM CDT Krystin Christie APRN, CNP LAB - BLOOD ORDERABLES Performing Organization Address City/State/ZIP Code Phon e Number [facility] [address] [place] [address] documented in this encounter Visit Diagnoses Diagnosis Subclinical hypothyroidism Other specified acquired hypothyroidism Type 2 diabetes mellitus without complic ation, without long-term current use of insulin (H) documented in this encounter Additional Health Concerns Assessment Noted Time PHQ-9 Depression Total Score: 8 01/07/2019 2:02 PM CDT documented as of this encounter Care Teams Electronic Bench Technician Relationship Specialty Start Date End Date Krystin Christie PCP - General Nurse Practitioner 12/15/17 09/08/19 SAURABH Engel ACADEMIC VICE PRESIDENT [address] [facility] [place] [address] Tali Vilchis MD INTERNAL MEDICINE - 04/10/15 ENDOCRINOLOGY, DIABETES [address] [place] [address] & METABOLISM [address] [place], [place] [address] Anat Fuller MD Internal Medicine 04/10/1509/16 MD Renee [address] [facility] [place] [address] Janny Hutton Physician Well Point Pumping Supervisor Physician Well Point Pumping Supervisor 06/30/15 09/17/19 CARLA Mckeon 420 [facility] [address]03 [place], [place] [phone] Krystin Christie PCP 08/26/18 01/28/21 SAURABH Engel ACADEMIC VICE PRESIDENT [address] [facility] [place] [address] Sonja Tinajero Pharmacist Pharmacist 12/24/18 09/17/19 Dev, [facility] [address] [facility] [place] [address] documented as of this encounter
--- OUTSIDE RECORDS SUMMARY | 2022-05-09 11:01 | XMS_ITS | Encounter Summary ---
:1955 Author Organization [place] Address [facility] [place] [address] Care Team Providers Name Role Phone Tali Vilchis MD Unavailable Anat Fuller MD Unavailable [phone] Janny Hutton PA-C Unavailable [phone] Krystin Christie APRN [facility] Primary Care Provider [phone] [facility] Unavailable [phone] Sonja Tinajero [facility] Unavailable [phone] Kelly De Oliveira [facility] Unavailable Eduin Wilhelm Unavailable Unavailable Cecilia Aleman MD Unavailable [phone] Thalia Glass MD Unavailable [phone] Vinita Linares RN Unavailable Unavailable PratikKrystin newby APRN [facility] Primary Care Provider [phone] Deyanira Stewart [facility] Unavailable Nadira Nichols RN Unavailable Unavailable Frank Argueta Unavailable Unavailable Thaila Glass MD Unavailable [phone] Anat Fuller MD Unavailable [phone] Eric Abdi MD Unavailable [phone] Cecilia Aleman MD Unavailable [phone] Sonja Tinajero [facility] Unavailable [phone] Vidhi Paiz APRN RESOURCE EFFICIENCY MANAGER Unavailable [phone] Krystin Christie APRN RESOURCE EFFICIENCY MANAGER Unavailable [phone] Sea Tsai DO Unavailable [phone] Vidhi Paiz CYBER SECURITY ANALYST RESOURCE EFFICIENCY MANAGER Unavailable [phone] [facility] Psychiatric CenterSea morrow DO Unavailable [phone] Stephanie Canela MD Unavailable [phone] Krystin Christie APRN RESOURCE EFFICIENCY MANAGER Unavailable [phone] Dima Hidalgo MD Unavailable Dima Hidalgo MD Unavailable Reason for Visit Reason Comments Pending Orders/need approval Encounter Details Date Type Department Care Team Description 12/14/2018 Documentation Only [facility] Krystin Christie Pend ing Orders/need Clinic Lola Engel APRN approval [address] [facility] [address] [place], [place] [id number] Social History Tobacco Use Types Packs/Day Years Used Date Smoking Tobacco: Never Smokeless Tobacco: Never Alcohol Use Standard Drinks/Week Comments No 0 (1 standard drink = 0.6 oz pure alcoho l) Sex Assigned at Date Recorded 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 Plan of Treatment Upcoming Encounters Date Type Specialty Care Team Description 05/19/2022 Office Visit ENT Dima [facility]idalgo M D [address] [facility] [place] [address] (Wo rk) 08/02/2022 Office Visit Neurology Yair Campos MD [address] [facility] [place], [place] [address] (Wo rk) documented as of this encounter Results (ABNORMAL) TSH with free T4 reflex (01/07/2019 1:34 PM CDT) athologist Signature TSH 9.35 (H) 0.40 - 01/08/2019 [facility] 4.00 mU/L 12:07 PM CDT [facility] Specimen Anatomical Collection Method Collection Time Receive d Time (Source) Location / / Volume Laterality Blood specimen 01/07/2019 1:34 PM 019 1:36 (specimen) CDT PM CDT Krystin Christie APRN, CNP LAB - BLOOD ORDERABLES Performing Organization Address City/State/ZIP Code Phon e Number [facility] [address] [place] [address] (ABNORMAL) Hemoglobin A1c (01/07/2019 1:34 PM CDT) athologist Signature Hemoglobin A1C 7.7 (H) 0 - 5.6 % 01/07/2019 [place] 2:09 PM CDT [facility] [place] Comment: Normal <5.7% Prediabetes 5.7-6.4% ??Diab etes 6.5% or higher - adopted from ADA consensus guidelines. Specimen Anatomical Collection Method Collection Time Receive d Time (Source) Location / / Volume Laterality Blood specimen 01/07/2019 1:34 PM 019 1:36 (specimen) CDT PM CDT Krystin Christie APRN, CNP LAB - BLOOD ORDERABLES Performing Organization Address City/State/ZIP Code [facility] [facility] [place] [address] documented in this encounter Visit Diagnoses Diagnosis Type 2 diabetes mellitus without complic ation, without long-term current use of insulin (H) - Primary Subclinical hypothyroidism Other specified acquired hypothyroidism documented in this encounter Additional Health Concerns Assessment Noted Time PHQ-9 Depression Total Score: 4 08/24/2018 11:10 AM CS T documented as of this encounter Care Teams Legal Officer Relationship Specialty Start Date End Date Krystin Christie PCP - General Nurse Practitioner 12/15/17 09/08/19 SAURABH Engel CNP [address] [facility] [place] [id number] Krystin Christie PCP - General Nurse Practitioner 09/18/19 SAURABH Engel RESOURCE EFFICIENCY MANAGER [address] [facility] [place] [id number] Tali Vilchis MD INTERNAL MEDICINE - 04/10/15 MD Kaitlynn ENDOCRINOLOGY, [address] [facility] DIABETES & METABOLISM [facility] 101 [place], [place] [address] Anat Fuller MD Internal Medicine 04/10/15 09/17/19 Krystin Duran MD 516 [facility] [address] [place], [place] [address] Janny Hutton Physician Grey Iron Molder Physician Grey Iron Molder 06/30/15 09/17/19 CARLA Mckeon 420 [facility] 803 [place] [address] Krystin Christie Assigned PCP 08/26/18 01/28/21 SAURABH Engel RESOURCE EFFICIENCY MANAGER [address] [facility] [place] [id number] Sonja Tinajero Pharmacist Pharmacist 12/24/18 09/17/19 Dev [facility] [address] [facility] [place] [id number] Kelly De Oliveira, Pharmacist Pharmacist 01/21/19 06/24/19 [facility] 30[address] [place] [address] Eduin Wilhelm Personal Advocate & 06/17/19 09/17/19 Liaison (PAL) Cecilia Aleman MD Urology 07/22/19 09/17/19 MD Lyly 420 [facility] [address] [place] [address] Joan Monroe MD Obstetrics 07/22/19 09/17/19 Thalia Engel MD [address] [facility] [address] [place], [place] [address] Vinita Linares, RN Registered Nurse 07/22/19 09/17/19 Deyanira Stewart Pharmacist Pharmacist 01/13/20 08/24/20 [facility] [address] [place] [address] Nadira Nichols, MIKE Lead Horses Or Mules Teamster Primary Care - CC 01/21/20 03/02/20 Frank Argueta Community Health Worker 01/21/2002/14 Joan Monroe, Assigned OBGYN Provider 05/08/2001/16/21 Thalia Engel MD 65[address] [facility] 100 [place], [place] [address] Anat Fuller Assigned Gastroenterology 05/08/20 12/12/20 Krystin Duran MD Provider [address] [facility] [address] [place] [address] Eric Abdi Assigned Musculoskeletal 05/08/20 03/27/21 MD Joo Provider [place] [address] [place] [address] [place] [id number] Cecilia Aleman Assigned Surgical 05/08/20 03/06/21 MD Lyly Provider [address] [facility] [address] [place], [place] [address] Sonja Tinajero Pharmacist 08/24/20 Dev, [facility] [address] [facility] [place] [address] Vidih Paiz Assigned PCP 01/29/21 07/10/21 SAURABH Turner RESOURCE EFFICIENCY MANAGER [address] [facility] [place] [address] Krystin Christie Assigned PCP 07/11/21 07/24/21 SAURBAH Engel RESOURCE EFFICIENCY MANAGER [address] [facility] [place] [address] MD Eulalio Neurology 08/04/21 Sea Fink DO 909 [place] [address] Vidhi Paiz Assigned PCP 07/25/21 01/07/22 SAURABH Turner RESOURCE EFFICIENCY MANAGER [address] [place] [address] Isha Tsai Neuroscience 10/10/21 Sea Fink DO Provider [address] [place] [address] Stephanie Canela Assigned OBGYN Provider 12/05/21 MD Alee [address] [place] [address] Krystin Christie Assigned PCP 01/08/22 SAURABH Engel RESOURCE EFFICIENCY MANAGER [address] [facility] [place] [address] Dima Hidalgo MD MD Otolaryngology 02/15/[address] [place] [address] Dima Hidalgo MD Assigned Surgical 03/12/[address] [place] [id number] documented as of this encounter
--- OUTSIDE RECORDS SUMMARY | 2022-05-09 11:01 | XMS_ITS | Encounter Summary ---
:1955 Author Organization [facility] Address [address] [facility] [place] [address] Care Team Providers Name Role Phone Tali Vilchis MD Unavailable Anat Fuller MD Unavailable [phone] aJnny Hutton PA-C Unavailable [phone] Krystin Christie APRN, CNP Primary Care Provider [phone] Krystin Christie APRN EXECUTIVE TALENT ACQUISITION CONSULTANT Unavailable [phone] Sonja Tinajero [facility] Unavailable [phone] Kelly De Oliveira [facility] Unavailable Reason for Visit Reason Comments Arthritis bilat hand pain and left romeo mb is frozen and rigth thumb (trigger), hands burn and sometimes numbness. 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 documented as of this encounter Last Filed Vital Signs Vital Sign Reading Time Taken Comments Blood Pressure 120/66 03/05/2019 5:23 PM CDT Pulse 86 03/05/2019 5:23 PM CDT Temperature 36.8 ??C (98.3 ??F) 03/05/2019 5:23 PM CDT Respiratory Rate - - Oxygen Saturation 94% 03/05/2019 5:23 PM CDT Inhaled Oxygen Concentration - - Weight 91.2 kg (201 lb) 03/05/2019 5:23 PM CDT Height 160 cm (5' 3) 03/05/2019 5:23 PM CDT Body Mass Index 35.61 03/05/2019 5:23 PM CDT documented in this encounter Patient Instructions Patient InstructionsMichael Alcaraz CNP - 03/05/2019 5:20 PM CDT Images from the original note were not included. Meloxicam (mobic) take daily for 14 days Avoid taking ibuprofen while taking meloxicam Prednisone take 40 mg (2 tablets) daily for 2 days and then take 20 mg (1 tablet) daily for 4 days. Monitor blood sugars while taking prednisone Can do heat and ice to help with pain Patient Education Arthritis: Exercise Look for exercise classes for arthritis in your community. Exercise is important to your overall health. It is especially important in people with arthritis. Regular exercise can: ?? Keep your??heart and blood vessels healthy ?? Help with weight management, or weight loss ?? Improve your mood ?? Help prevent and manage health problems such as: ? Diabetes ? High blood pressure ? High cholesterol ? Depression In people with arthritis, it offers all of those benefits and it can: ?? Lessen pain and stiffness ?? Strengthen muscles that support your joints ?? Help you to be able to do the things you enjoy Exercise and arthritis Exercise is an important part of any arthritis treatment plan. A complete program consists of the??following 3??types of exercises: ?? Aerobic exercises??for cardiovascular health and overall fitness.? Strengthening exercises??to build up muscles to help prevent injury and keep joints stable. ?? Fquup-pc-yrbyra exercises??to keep muscles and joints flexible. Getting started Talk with your healthcare provider about what is safe for you. Make sure you: ?? Learn how to do exercises correctly??and safely.??Consider talking with a physical therapist or corporate trainer used to working with people with arthritis. ?? Start slowly and build. If you haven't been exercising, start slowly. Don't exercise too hard or too long. ?? Create a routine.??Set aside specific times for exercise every day. ?? Warm up carefully.??Take 5 to 10 minutes at the beginning and end of exercising to warm up and cool down. Just do the same exercises at a slower pace for??5 to 10 minutes. ?? Work at a comfortable, smooth pace. Move your joints gently to prevent injury. ?? Pay attention to your body.??Don't exercise a painful or swollen joint; switch to another activity. Follow the 2-hour pain rule: You did too much if your joint or muscle pain lasts??2 hours or more after exercising, or is worse the next day. This doesn't mean you should stop exercising. Just do less. Aerobic exercise Aerobic exercise improves overall health and helps control weight.??Choose those that don't add extra stress to your joints. For example, walking, swimming, or bicycling. Most people should exercise for at least 30 minutes, most days of the week. You don't have to exercise all at once. Try exercising for 10 minutes, 3 times a day, for example. Strengthening exercises Strengthening your muscles helps to protect your joints and prevent injuries. Try to do strengthening exercises 2 to 3 times a week: ?? These exercises can be done with exercise or resistance bands (inexpensive exercise aids that addresistance), or with light weights. Some people use soup cans as weights. ?? Isometric??exercises are done by tightening the muscles without moving the joint. This may be a good way to strengthen the muscles around a stiff joint. A physical therapist or corporate trainer can teach you how to do these exercises. Dtvsr-mr-cfwjsn (ROM) exercises Suuyq-im-zevtgr (ROM) exercises allow you to move each of your joints in every way they are intendedto move. You should do ROM exercises for each joint 2 to 3 times a day. This will help you maintain full use of all of your joints. Sample ROM exercises The following are just a sample of ROM exercises--one for your neck, shoulders, elbows, hips, knees,and ankles. To completely move each joint through its full range of motion, you will have to do a few exercises for each joint. A physical therapist or corporate trainer can teach you how to do full ROM exercises for each joint.?? Repeat each for these exercises 5 to 10 times. Make sure you move slowly: 1. Neck turns. Sit in a straight-backed chair. Look straight ahead. Slowly turn your head to the right, then return it to center. Repeat. Do the same thing, turning your head to the left. Repeat. 2. Shoulder raise.??Lie on your back or sit in a chair. Raise one arm over your head, keeping your elbow straight. Keep the arm close to your ear. Return it slowly to your side. Repeat with your other arm. 3. Elbow stretch.??Sit in a chair. If you are able, put both arms out to your sides to form a T. Slowly touch your shoulders with the tips of your fingers. Then return to the T-position. Repeat. 4. Hip stretch.??Lie on your back with your legs straight and about 6 inches apart. With your foot flexed, slide your leg out to the side, then slide it back to the starting position. Repeat with your other leg. 5. Knee bend. Sit in a chair with your legs bent at the knees in front of you. Straighten one leg asmuch as you can, then bring it back to the floor. Repeat this 5 to 10 times. Then do the same thing with the other leg.?? 6. Ankle stretch. Sit with your feet flat on the floor. Lift your toes off of the floor while your heels stay down. Repeat. Then lift your heels off the floor while your toes stay down. Repeat. Other exercise Many other exercise and activities benefit people with arthritis. It is most important to find exercise and activities that you enjoy. You might try: ?? Yoga, including chair yoga, helps to keep your joints strong and flexible ?? Han Chi, an ancient type of exercise with slow, gentle movements ?? Water exercise, including water walking For more information on exercise for arthritis go to the Arthritis Foundation website: www.arthritis.org. Date Last Reviewed: 12/15/2017 ?? [id number] [employer]. [address] [place] [address], [place] [address]. All rights reserved. This information is not intended as a substitute for professional medical care. Always follow your healthcare professional's instructions. documented in this encounter Progress Notes Michael Alcaraz CNP - 03/05/2019 5:20 PM CDT Images from the original note were not included. SUBJECTIVE: Becki Ridley is a 64 year old female presenting with a chief complaint of Chief Complaint Patient presents with ??? Arthritis bilat hand pain and left thumb is frozen and rigth thumb (trigger), hands burn and sometimes numbness. Patient states that she has bilateral hand pain along with left frozen thumb and right trigger thumb along with intermittent numbness and burning. Does also radiate to the right elbow, right shoulder, bilateral knees, and left great toe. States also has difficulty with gripping bilaterally. Denies any injury. States just woke up with it one day. Rates pain 8/10. Takes ibuprofen 3 tablets at a time and doesn't seem to help. States has had some chills. Does have some joint swelling. Patient does have history of type 2 diabetes. She usually check her blood sugar daily, but hasn't recently for the last couple of days. Becki does remember for sure what her blood sugars have been running recently. Patient does also have history of arthritis. She is an established patient of [facility]. Patient was seen at urgent care for shingles type rash on 01/20/19 and was treated with valtrex at that visit. Review of Systems Constitutional: Negative for fever. Gastrointestinal: Negative for nausea and vomiting. Musculoskeletal: Positive for arthralgias and myalgias. Skin: Negative for color change and rash. Neurological: Positive for weakness and numbness. Past Medical History: Diagnosis Date ??? Angioedema ??? Arthritis ??? Asthma ??? Blood transfusion ??? Depression ??? DM2 (diabetes mellitus, type 2) (H) ??? Hypertension ??? Lower extremity edema ??? VILLAREAL (nonalcoholic steatohepatitis) ??? Restless legs syndrome ??? Restrictive lung disease ??? Sleep apnea ??? Subclinical hypothyroidism 2010 Family History Problem Relation Age of Onset ??? Thyroid Disease Daughter patric thyroiditis ??? Depression Daughter ??? Anxiety Disorder Daughter ??? Depression Mother ??? Dementia Mother ??? Hypertension Mother ??? Cancer Mother ??? Diabetes Mother ??? Glaucoma Mother ??? Cerebrovascular Disease Mother ??? Depression Father ??? Hypertension Father ??? Diabetes Father ??? Depression Maternal Grandmother ??? Dementia Maternal Aunt ??? Dementia Maternal Aunt ??? Dementia Maternal Aunt ??? Dementia Maternal Aunt ??? Macular Degeneration No family hx of Current Outpatient Medications Medication Sig Dispense Refill ??? albuterol (PROAIR HFA/PROVENTIL HFA/VENTOLIN HFA) 108 (90 Base) MCG/ACT inhaler Inhale 2 puffs into the lungs every 6 hours ??? blood glucose (ACCU-CHEK ANNIE PLUS) test strip 1 strip by In Vitro route daily 200 strip 1 ??? blood glucose monitoring (CleverMiles CONTOUR NEXT) test strip Use to test blood sugar 2 times daily or as directed. 200 each 3 ??? blood glucose monitoring (CleverMiles MICROLET) lancets Use to test blood sugar [...] by mouth daily 90 tablet 0 ??? meloxicam (MOBIC) 15 MG tablet Take 1 tablet (15 mg) by mouth daily for 14 days 14 tablet 0 ??? metFORMIN (GLUCOPHAGE-XR) 500 MG 24 hr tablet TAKE 4 TABLETS(2000 MG) BY MOUTH DAILY 360 tablet 0 ??? order for DME Equipment being ordered: orthopedic Diabetic shoes 1 each 0 ??? predniSONE (DELTASONE) 20 MG tablet Take 40 mg (2 tablets) daily for 2 days, then take 20 mg (1 tablets) daily for 4 days. 8 tablet 0 ??? STATIN NOT PRESCRIBED (INTENTIONAL) 1 each 2 times daily Please choose reason not prescribed, below ??? Vitamin D, Cholecalciferol, 1000 units TABS Take 1,000 Units by mouth daily ??? valACYclovir (VALTREX) 1000 mg tablet Take 1 tablet (1,000 mg) by mouth 3 times daily for 7 days21 tablet 0 Social History Tobacco Use ??? Smoking status: Never Smoker ??? Smokeless tobacco: Never Used Substance Use Topics ??? Alcohol use: No Alcohol/week: 0.0 oz OBJECTIVE BP 120/66 (BP Location: Right arm, Cuff Size: Adult Large) Pulse 86 Temp 98.3 ??F (36.8 ??C) (Tympanic) Ht 1.6 m (5' 3) Wt 91.2 kg (201 lb) SpO2 94% BMI 35.61 kg/m?? Physical Exam Constitutional: She is oriented to person, place, and time. She is cooperative. She appears distressed. Musculoskeletal: Patient has tenderness and swelling to bilateral hands with joint swelling noted. Patient has decreased stitchdown thread laster strength bilaterally. Tenderness and swelling to left great toe, and right second digit on the foot. Neurological: She is alert and oriented to person, place, and time. Skin: Skin is warm, dry and intact. Nursing note and vitals reviewed. ASSESSMENT: ICD-10-CM 1. Arthralgia, unspecified joint M25.50 meloxicam (MOBIC) 15 MG tablet predniSONE (DELTASONE) 20 MG tablet Medical Decision Making: Discussed with patient that favor an arthritic flare, however, given some burning and numbness alongwith some of her trigger finger and frozen thumb cannot rule out carpal tunnel or other acute degenerative changes. Did discussed potential referral to both orthopedics and rheumatology or we can starttreatment for arthritic flare and then can follow up with PCP for further referrals if symptoms do not improve. Patient would like to start treatment for arthritic flare and then will follow up with PCP if symptoms do not improve and then can discuss further potential referrals. Did alter the prednisone treatment to try and avoid having her blood sugars increase to much. Did also educate patient thatprednisone will increase her blood sugars. PLAN: Discussed the treatment recommendations with the patient. Education was added to the AVS. Patient verbalized understanding and was agreeable to plan. Followup: If not improving or if condition worsens, follow up with your Primary Care Provider, In 5-7 day(s) follow up with your Primary Care Provider Patient Instructions Meloxicam (mobic) take daily for 14 days Avoid taking ibuprofen while taking meloxicam Prednisone take 40 mg (2 tablets) daily for 2 days and then take 20 mg (1 tablet) daily for 4 days. Monitor blood sugars while taking prednisone Can do heat and ice to help with pain Patient Education Arthritis: Exercise Look for exercise classes for arthritis in your community. Exercise is important to your overall health. It is especially important in people with arthritis. Regular exercise can: ?? Keep your??heart and blood vessels healthy ?? Help with weight management, or weight loss ?? Improve your mood ?? Help prevent and manage health problems such as: ? Diabetes ? High blood pressure ? High cholesterol ? Depression In people with arthritis, it offers all of those benefits and it can: ?? Lessen pain and stiffness ?? Strengthen muscles that support your joints ?? Help you to be able to do the things you enjoy Exercise and arthritis Exercise is an important part of any arthritis treatment plan. A complete program consists of the??following 3??types of exercises: ?? Aerobic exercises??for cardiovascular health and overall fitness.? Strengthening exercises??to build up muscles to help prevent injury and keep joints stable. ?? Jaqzh-cq-tzpslf exercises??to keep muscles and joints flexible. Getting started Talk with your healthcare provider about what is safe for you. Make sure you: ?? Learn how to do exercises correctly??and safely.??Consider talking with a physical therapist or corporate trainer used to working with people with arthritis. ?? Start slowly and build. If you haven't been exercising, start slowly. Don't exercise too hard or too long. ?? Create a routine.??Set aside specific times for exercise every day. ?? Warm up carefully.??Take 5 to 10 minutes at the beginning and end of exercising to warm up and cool down. Just do the same exercises at a slower pace for??5 to 10 minutes. ?? Work at a comfortable, smooth pace. Move your joints gently to prevent injury. ?? Pay attention to your body.??Don't exercise a painful or swollen joint; switch to another activity. Follow the 2-hour pain rule: You did too much if your joint or muscle pain lasts??2 hours or more after exercising, or is worse the next day. This doesn't mean you should stop exercising. Just do less. Aerobic exercise Aerobic exercise improves overall health and helps control weight.??Choose those that don't add extra stress to your joints. For example, walking, swimming, or bicycling. Most people should exercise for at least 30 minutes, most days of the week. You don't have to exercise all at once. Try exercising for 10 minutes, 3 times a day, for example. Strengthening exercises Strengthening your muscles helps to protect your joints and prevent injuries. Try to do strengthening exercises 2 to 3 times a week: ?? These exercises can be done with exercise or resistance bands (inexpensive exercise aids that addresistance), or with light weights. Some people use soup cans as weights. ?? Isometric??exercises are done by tightening the muscles without moving the joint. This may be a good way to strengthen the muscles around a stiff joint. A physical therapist or corporate trainer can teach you how to do these exercises. Bpujr-qy-yhrdmp (ROM) exercises Ipiwd-dy-ncfbtx (ROM) exercises allow you to move each of your joints in every way they are intendedto move. You should do ROM exercises for each joint 2 to 3 times a day. This will help you maintain full use of all of your joints. Sample ROM exercises The following are just a sample of ROM exercises--one for your neck, shoulders, elbows, hips, knees,and ankles. To completely move each joint through its full range of motion, you will have to do a few exercises for each joint. A physical therapist or corporate trainer can teach you how to do full ROM exercises for each joint.?? Repeat each for these exercises 5 to 10 times. Make sure you move slowly: 1. Neck turns. Sit in a straight-backed chair. Look straight ahead. Slowly turn your head to the right, then return it to center. Repeat. Do the same thing, turning your head to the left. Repeat. 2. Shoulder raise.??Lie on your back or sit in a chair. Raise one arm over your head, keeping your elbow straight. Keep the arm close to your ear. Return it slowly to your side. Repeat with your other arm. 3. Elbow stretch.??Sit in a chair. If you are able, put both arms out to your sides to form a T. Slowly touch your shoulders with the tips of your fingers. Then return to the T-position. Repeat. 4. Hip stretch.??Lie on your back with your legs straight and about 6 inches apart. With your foot flexed, slide your leg out to the side, then slide it back to the starting position. Repeat with your other leg. 5. Knee bend. Sit in a chair with your legs bent at the knees in front of you. Straighten one leg asmuch as you can, then bring it back to the floor. Repeat this 5 to 10 times. Then do the same thing with the other leg.?? 6. Ankle stretch. Sit with your feet flat on the floor. Lift your toes off of the floor while your heels stay down. Repeat. Then lift your heels off the floor while your toes stay down. Repeat. Other exercise Many other exercise and activities benefit people with arthritis. It is most important to find exercise and activities that you enjoy. You might try: ?? Yoga, including chair yoga, helps to keep your joints strong and flexible ?? Han Chi, an ancient type of exercise with slow, gentle movements ?? Water exercise, including water walking For more information on exercise for arthritis go to the Arthritis Foundation website: www.arthritis.org. Date Last Reviewed: 12/15/2017 ?? [id number] [employer]. [address] [place] [address]. All rights reserved. This information is not intended as a substitute for professional medical care. Always follow your healthcare professional's instructions. documented in this encounter Plan of Treatment Upcoming Encounters Date Type Specialty Care Team Description 05/19/2022 Office Visit ENT Dima Hidalgo M D [address] [place], [place] [address] (Wo rk) 08/02/2022 Office Visit Neurology Yair Campos MD [address] [facility] [address] [place], [place] [id number] (Wo rk) documented as of this encounter Visit Diagnoses Diagnosis Arthralgia, unspecified joint - Primary documented in this encounter Additional Health Concerns Assessment Noted Time PHQ-9 Depression Total Score: 8 01/07/2019 2:02 PM CDT documented as of this encounter Care Teams Real Estate Office Supervisor Relationship Specialty Start Date End Date Krystin Christie PCP - General Nurse Practitioner 12/15/17 09/08/19 SAURABH Engel EXECUTIVE TALENT ACQUISITION CONSULTANT [address] [facility] [place] [address] Tali Vilchis MD INTERNAL MEDICINE - 04/10/15 ENDOCRINOLOGY, DIABETES [address] [facility] [address] [place] [address] Anat Fuller MD Internal Medicine 04/10/1509/16 MD Renee [address] [facility] [address] [place] [address] Janny Hutton Physician Insulation Worker Apprentice Physician Insulation Worker Apprentice 06/30/15 09/17/19 CARLA Mckeon [address] [facility] [address] [place] [address] Krystin Christie Assigned PCP 08/26/18 01/28/21 SAURABH Engel EXECUTIVE TALENT ACQUISITION CONSULTANT [address] [facility] [place] [address] Sonja Tinajero Pharmacist Pharmacist 12/24/18 09/17/19 BOB Méndez [address] [id number] Kelly De Oliveira, [facility] Pharmacist Pharmacist 01/21/19 06/24/19 [address] [place] [address] documented as of this encounter
--- OUTSIDE RECORDS SUMMARY | 2022-05-09 11:01 | XMS_ITS | Encounter Summary ---
:1955 Author Organization [place] Address [facility] access hospital[facility] [place] [address] Care Team Providers Name Role Phone Tali Vilchis MD Unavailable Anat Fuller MD Unavailable [phone] Janny Hutton PA-C Unavailable [phone] Krystin Christie APRN PIT [employer]AGMAN Primary Care Provider Krystin Christie APRN [employer]MAN Unavailable [phone] Sonja Tinajero [facility] Unavailable [phone] Kelly De Oliveira [facility] Unavailable Encounter Details Date Type Department Care Team Description 05/03/2019 Travel Social History Tobacco Use Types Packs/Day Years Used Date Smoking Tobacco: Never Smokeless Tobacco: Never Alcohol Use Standard Drinks/Week Comments No 0 (1 standard drink = 0.6 oz pure alcoho l) Sex Assigned at Date Recorded Female 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 documented as of this encounter Plan of Treatment Upcoming Encounters Date Type Specialty Care Team Description 05/19/2022 Office Visit ENT Dima Hidalgo M D [address] [place] [address] (Wo rk) 08/02/2022 Office Visit Neurology Yair Campos MD [address] [place] [address] [place] [address] (Wo rk) documented as of this encounter Visit Diagnoses Not on filedocumented in this encounter Additional Health Concerns Assessment Noted Time PHQ-9 Depression Total Score: 8 01/07/2019 2:02 PM CDT documented as of this encounter Care Teams Clinical Team Lead Relationship Specialty Start Date End Date Krystin Christie PCP - General Nurse Practitioner 12/15/17 09/08/19 SAURABH Engel [employer]AGMAN [address] [facility] [place] [address] Tali Vilchis MD INTERNAL MEDICINE - 04/10/15 ENDOCRINOLOGY, DIABETES [address] [facility] [address] [place], [place] [address] Anat Fuller MD Internal Medicine 04/10/1509/16 MD Renee [address] [place], [place] [address] Janny Hutton Physician Extension Edger Physician Extension Edger 06/30/15 09/17/19 CARLA Mckeon [address] [facility] [address] [place], [place] [address] Krystin Christie Assigned PCP 08/26/18 01/28/21 SAURABH Engel [employer]AG[employer] [address] [facility] [place] [address] Sonja Tinajero Pharmacist Pharmacist 12/24/18 09/17/19 Dev [facility] [address] [place] [address] Kelly De Oliveira [facility] Pharmacist Pharmacist 01/21/19 06/24/19 [address] [place] [address] documented as of this encounter
--- OUTSIDE RECORDS SUMMARY | 2022-05-09 11:02 | XMS_ITS | Encounter Summary ---
:1955 Author Organization [place] Address [address] [facility] [place] [address] Care Team Providers Name Role Phone Tali Vilchis MD Unavailable Anat Fuller MD Unavailable [phone] Janny Hutton PA-C Unavailable [phone] Krystin Christie APRN PULVERIZER MILL OPERATOR Primary Care Provider Florecita Bryan RN Unavailable Krystin Christie APRN PULVERIZER MILL OPERATOR Unavailable [phone] Sonja Tinajero [facility] Unavailable [phone] Kelly De Oliveira [facility] Unavailable Reason for Visit Reason Comments Medication Therapy Management Encounter Details Date Type Department Care Team Description 09/20/2018 Office Visit [facility] Sonja Tinajero Type 2 diabetes mellitus with complication, without long-term current use of insulin (H) (Primary Dx); [facility] [place] [facility] Mild persistent asthma without complicat ion; [facility] Subclinical hypothyroidism [facility] [place] [address] [address] [place] [address] (Work) [phone] Social History Tobacco Use Types Packs/Day Years Used Date Smoking Tobacco: Never Smokeless Tobacco: Never Alcohol Use Standard Drinks/Week Comments No 0 (1 standard drink = 0.6 oz pure alcoho l) Sex Assigned at Date Recorded Female 08/17/2018 10:39 PM HEAD SAWYER AUTOMATIC documented as of this encounter Last Filed Vital Signs Vital Sign Reading Time Taken Comments Blood Pressure 112/69 09/20/2018 1:28 PM HEAD SAWYER AUTOMATIC Pulse 80 09/20/2018 1:28 PM HEAD SAWYER AUTOMATIC Temperature - - Respiratory Rate - - Oxygen Saturation - - Inhaled Oxygen Concentration - - Weight 85.8 kg (189 lb 1.6 oz) 09/20/2018 1:28 PM HEAD SAWYER AUTOMATIC Height - - Body Mass Index 33.5 09/09/2018 10:44 AM HEAD SAWYER AUTOMATIC documented in this encounter Progress Notes Rose Marie Salas, [facility] - 09/20/2018 1:30 PM CST Images from the original note were not included. SUBJECTIVE/OBJECTIVE: Becki Ridley is a 63 year old female coming in for a follow-up visit for Medication Therapy Management. She was referred to me for THOMAS visit. Since visit, she was admitted again on 09/09 for hypothyroidsim, SOB, T2DM, asthma, VILLAREAL. Pt seen prior to PCP visit today. Chief Complaint: Follow up from our visit on 08/29/18. She is feeling rough today (weak, tired, andshort of breath). No specific concerns. Allergies/ADRs: Reviewed in Epic. Tobacco: No tobacco use Alcohol: none Caffeine: 1 cup /day usually Activity: None recently. PMH: Recently hospitalized on 09/09 for subclinical hypothyroidism and started on Synthroid 25 mg. Hospitalization on 08/20/18 with elevated LFTs, lipase, weakness, and abdominal bloating of unknown etiology. Medication Adherence/Access: Doing well getting medications in. Pill boxes given at last visit working better for her. Patient uses Pill Boxes Patient takes medications 1 time(s) per day. The patient fills medications at [place]: [facility] Diabetes: Recently she was taking metformin XR 4 tablets daily (2000 mg) without GI issues. Daughterhelps a lot with providing good low-carb meals. She reports her blood sugars are much better with taking her meds more and eating better. Pt has met with CDE in the past but felt overwhelmed with visitdue to too many changes at once. Pt has some memory impairment, therefore making too many changes for her is very overwhelming. S/E: None. SMB-2 x daily Ranges (based on glucometer readings): Patient is not experiencing hypoglycemia Recent symptoms of high blood sugar? none Eye exam: up to date Foot exam: up to date ACEi/ARB: No. Urine Albumin: Lab Results Component Value Date UMALCR 6.34 08/16/2018 Aspirin: Not taking due to elevated LFTs/increased bleeding risk Diet/Exercise: She has continued her very low carb diet which her daughter has been very helpful with (cauliflower substitutes for grains and other help with diet). Lab Results Component Value Date A1C 11.6 08/16/2018 A1C 9.7 09/28/2016 A1C 9.2 06/30/2015 A1C 9.0 07/04/2011 A1C 6.3 03/02/2011 Wt Readings from Last 4 Encounters: 09/20/18 189 lb 1.6 oz (85.8 kg) 09/09/18 185 lb (83.9 kg) 08/30/18 188 lb 14.4 oz (85.7 kg) 08/29/18 188 lb 8 oz (85.5 kg) Asthma: Current asthma medications:DuoNebs prn, and Albuterol prn (not currently using). Pt has not started budesonide nebulizer, picked up today. Pt states she forgot to pick it up on Monday. Asthma triggers include: Gastric Reflux. SOB when stomach is bloated. Pt reports the following symptoms: none. AAP on file: Yes PIF was completed today: No She met with pulmonology on this past Sunday 09/17 and states she was told she does not have restrictive lung disease and suspected possible myasthenia gravis. Pt instructed she needs to follow up with aneurologist. ACT Total Scores 08/16/2018 ACT TOTAL SCORE (Goal Greater than or Equal to 20) 22 In the past 12 months, how many times did you visit the emergency room for your asthma without beingadmitted to the hospital? 3 In the past 12 months, how many times were you hospitalized overnight because of your asthma? 0 Hypothyroidism: Pt admitted on 09/09/18 for hypothyroidism. Patient started on levothyroxine 25 mcg daily. Patient is having the following symptoms: hypothyroidism - weakness and fatigue. TSH Date Value Ref Range Status 09/09/2018 10.11 (H) 0.40 - 4.00 mU/L Final Today's Vitals: BP 112/69 (BP Location: Right arm) Pulse 80 Wt 189 lb 1.6 oz (85.8 kg) BMI 33.50 kg/m?? Last Comprehensive Metabolic Panel: Sodium Date Value Ref Range Status 09/09/2018 139 133 - 144 mmol/L Final Potassium Date Value Ref Range Status 09/09/2018 4.1 3.4 - 5.3 mmol/L Final Comment: Specimen slightly hemolyzed, potassium may be falsely elevated Chloride Date Value Ref Range Status 09/09/2018 107 94 - 109 mmol/L Final Carbon Dioxide Date Value Ref Range Status 09/09/2018 23 20 - 32 mmol/L Final Anion Gap Date Value Ref Range Status 09/09/2018 9 3 - 14 mmol/L Final Glucose Date Value Ref Range Status 09/09/2018 227 (H) 70 - 99 mg/dL Final Urea Nitrogen Date Value Ref Range Status 09/09/2018 16 7 - 30 mg/dL Final Creatinine Date Value Ref Range Status 09/09/2018 0.47 (L) 0.52 - 1.04 mg/dL Final GFR Estimate Date Value Ref Range Status 09/09/2018 >90 >60 mL/min/[1.73_m2] Final Comment: Non GFR Calc Starting 07/03/2018, serum creatinine based estimated GFR (eGFR) will be calculated using the Chronic Kidney Disease Epidemiology Collaboration (CKD-EPI) equation. Calcium Date Value Ref Range Status 09/09/2018 9.4 8.5 - 10.1 mg/dL Final ASSESSMENT: Current medications were reviewed today as discussed above. Medication Adherence: poor, see below. Diabetes: Needs Improvement. Patient is not meeting A1c goal of < 7%. However, BG have improved from high 300's to high 100's. Pt is still not at goal FBG 80- 130. With history of VILLAREAL, pt would benefit from starting pioglitazone for blood sugar control and potential for reducing liver fibrosis. Literature supporting use of pioglitazone in VILLAREAL. Also given suspected myasthenia gravis diagnosis, pioglitazone is not a known drug to exacerbate myasthenia gravis symptoms (if pt does have this diagnosis). Reference: Response to Pioglitazone in Patients With Nonalcoholic Steatohepatitis With vs Without Type 2 Diabetes (Deon Arauz et al). Asthma: Unimproved. Pt would benefit from follow-up with PCP and neurology for further workup of etiology of SOB. Hypothyroidism: Stable. Pt would benefit from rechecking thyroid labs in 4-6 weeks. PLAN: Post Discharge Medication Reconciliation Status: discharge medications reconciled and changed, per note/orders (see below). 1. Pt to follow-up with Krystin Christie after our visit and discuss results from pulmonology visit on Monday. 2. Pt to start pioglitazone 15 mg once daily. Future considerations: Start statin - no change today as pt has done poorly with too many changes in a visit (becomes very noncompliant). I spent 30 minutes with this patient today. I offer these suggestions for consideration by verbal communication. A copy of the visit note was provided to the patient's primary care provider. Will follow up in after Neurology visit. The patient declined a summary of these recommendations as an after visit summary. Sonja Tinajero PharmD Pharmaceutical Care Resident Pager: [phone] Becki [facility] was seen independently by Dr. Tinajero. I have reviewed and agree with the resident noteand plan of care. Rose Marie Salas PharmD [facility] Medication Therapy Management Provider Pager #[phone] SAWYER AUTOMATIC documented in this encounter Plan of Treatment Upcoming Encounters Date Type Specialty Care Team Description 05/19/2022 Office Visit ENT Dima Hidalgo M D [address] [place], [place] [address] (Wo rk) 08/02/2022 Office Visit Neurology Yair Campos MD [address] [place] [id number] (Wo rk) documented as of this encounter Visit Diagnoses Diagnosis Type 2 diabetes mellitus with complicati on, without long-term current use of insulin (H) - Primary Mild persistent asthma without complicat ion Unspecified asthma Subclinical hypothyroidism Other specified acquired hypothyroidism documented in this encounter Additional Health Concerns Assessment Noted Time PHQ-9 Depression Total Score: 4 08/24/2018 11:10 AM CS T documented as of this encounter Care Teams Order Tracer Relationship Specialty Start Date End Date Krystin Christie PCP - General Nurse Practitioner 12/15/17 09/08/19 SAURABH Engel PULVERIZER MILL OPERATOR [address] [facility] [place] [id number] Tali Vilchis MD INTERNAL MEDICINE - 04/10/15 ENDOCRINOLOGY, DIABETES [address] [facility] [address] METABOLISM [address] [place], [place] [address] Anat Fuller MD Internal Medicine 04/10/1509/16 MD Renee [address] [facility] [address] [place], [place] [address] Janny Hutton Physician Orthotist Physician Orthotist 06/30/15 09/17/19 CARLA Mckeon [address] [facility] [address]MC [address] [place], [place] [address] Florecita Bryan, RN Lead Inspector Of Dredging 08/17/18 10/24/18 Krystin Christie Assigned PCP 08/26/18 01/28/21 SAURABH Engel PULVERIZER MILL OPERATOR [address] [facility] [place] [id number] Sonja Tinajero Pharmacist Pharmacist 12/24/18 09/17/19 Dev [facility] [address] [id number] Kelly De Oliveira, Pharmacist Pharmacist 01/21/19 06/24/19 [facility] [address] [place], [place] [address] documented as of this encounter
--- OUTSIDE RECORDS SUMMARY | 2022-05-09 11:02 | XMS_ITS | Encounter Summary ---
:1955 Author Organization [place] Address [address] [facility] [place] [address] Care Team Providers Name Role Phone Tali Vilchis MD Unavailable Anat Fuller MD Unavailable [phone] Janny Hutton PA-C Unavailable [phone] Krystin Christie APRN SPA EXPERIENCE COORDINATOR Primary Care Provider Florecita Bryan RN Unavailable Krystin Christie APRN SPA EXPERIENCE COORDINATOR Unavailable [phone] Encounter Details Date Type Department Care Team Description 10/15/2018 [facility] Krystin Christie Eagan APRN SPA EXPERIENCE COORDINATOR [address] [place] [place] [address] [facility] [address] [place] [address] [place] [address] [phone] Social History Tobacco Use Types Packs/Day Years Used Date Smoking Tobacco: Never Smokeless Tobacco: Never Alcohol Use Standard Drinks/Week Comments No 0 (1 standard drink = 0.6 oz pure alcoho l) Sex Assigned at Date Recorded Female 08/17/2018 10:39 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 documented as of this encounter Plan of Treatment Upcoming Encounters Date Type Specialty Care Team Description 05/19/2022 Office Visit ENT Dima Hidalgo M D [address] [place] [address] (Wo rk) 08/02/2022 Office Visit Neurology Yair Campos MD [address] [facility] [address] [place], [place] [address] (Wo rk) documented as of this encounter Results (ABNORMAL) TSH with free T4 reflex (10/15/2018 4:30 PM CDT) P athologist Signature TSH 5.96 (H) 0.40 - 10/16/2018 [facility] 4.00 mU/L 2:49 PM CDT [facility] Specimen Anatomical Collection Method Collection Time Receive d Time (Source) Location / / Volume Laterality Blood specimen 10/15/2018 4:30 PM 019 4:35 (specimen) CDT PM CDT Krystin Christie APRN SPA EXPERIENCE COORDINATOR LAB - BLOOD ORDERABLES Performing Organization Address City/State/ZIP Code Phon e Number [facility] [address] [place], [place] [address] documented in this encounter Visit Diagnoses Diagnosis Subclinical hypothyroidism - Primary Other specified acquired hypothyroidism documented in this encounter Additional Health Concerns Assessment Noted Time PHQ-9 Depression Total Score: 4 08/24/2018 11:10 AM CS T documented as of this encounter Care Teams Crab Catcher Relationship Specialty Start Date End Date Krystin Christie PCP - General Nurse Practitioner 12/15/17 09/08/19 SAURABH Engel SPA EXPERIENCE COORDINATOR [address] [facility] [place] [id number] Tali Vilchis MD INTERNAL MEDICINE - 04/10/15 ENDOCRINOLOGY, DIABETES [address] [facility] [address] & [address]OL[address] [place], [place] [address] Anat Fuller MD Internal Medicine 04/10/1509/16 MD Renee [address] [facility] [address] [place], [place] [address] Janny Hutton Physician Credit Underwriter Physician Credit Underwriter 06/30/15 09/17/19 CARLA Mckeon [address] [facility] [facility] [address] [place], [place] [address] Florecita Bryan, RN Lead Scan Coordinator 08/17/18 10/24/18 Krystin Christie PCP 08/26/18 01/28/21 SAURABH Engel SPA EXPERIENCE COORDINATOR [address] [facility] [place] [address] documented as of this encounter
--- OUTSIDE RECORDS SUMMARY | 2022-05-09 11:02 | XMS_ITS | Encounter Summary ---
:1955 Author Organization [place] Address [facility] [place] [address] Care Team Providers Name Role Phone Tali Vilchis MD Unavailable Anat Fuller MD Unavailable [phone] Janny Hutton PA-C Unavailable [phone] Krystin Christie APRN HOOP DRIVING MACHINE OPERATOR Primary Care Provider [phone] Florecita Bryan RN Unavailable Krystin Christie APRN HOOP DRIVING MACHINE OPERATOR Unavailable [phone] Krystin Christie APRN HOOP DRIVING MACHINE OPERATOR Unavailable [phone] Encounter Details Date Type Department Care Team Description 09/11/2018 Travel Social History Tobacco Use Types Packs/Day Years Used Date Smoking Tobacco: Never Smokeless Tobacco: Never Alcohol Use Standard Drinks/Week Comments No 0 (1 standard drink = 0.6 oz pure alcoho l) Sex Assigned at Date Recorded Female 08/17/2018 10:39 PM SPRAY BLENDER documented as of this encounter Plan of Treatment Upcoming Encounters Date Type Specialty Care Team Description 05/19/2022 Office Visit ENT Dima Hidalgo M D [address] [place], [place] [address] (Wo rk) 08/02/2022 Office Visit Neurology Yair Campos MD [address] [place], [place] [address] [place] [address] (Wo rk) documented as of this encounter Visit Diagnoses Not on filedocumented in this encounter Additional Health Concerns Assessment Noted Time PHQ-9 Depression Total Score: 4 08/24/2018 11:10 AM CS T documented as of this encounter Care Teams Community Center Worker Relationship Specialty Start Date End Date Krystin Christie PCP - General Nurse Practitioner 12/15/17 09/08/19 SAURABH Engel HOOP DRIVING MACHINE OPERATOR [address] [facility] [place] [address] Krystin Christie PCP - Assigned PCP 08/26/18 09/18/18 SAURABH Engel HOOP DRIVING MACHINE OPERATOR [address] [facility] [place] [address] Tali Vilchis MD INTERNAL MEDICINE - 04/10/15 ENDOCRINOLOGY, DIABETES [address] [facility] & [address]OLISM [address] [place], [place] [address] Anat Fuller MD Internal Medicine 04/10/1509/16 MD Renee [address] [facility] [address] [place], [place] [address] Janny Hutton Physician Stoneworking Belt Sander Physician Stoneworking Belt Sander 06/30/15 09/17/19 CARLA Mckeon [address] [facility] [address] [place], [place] [address] Florecita Bryan, RN Lead Deputy Prosecuting Attorney 08/17/18 10/24/18 Krystin Christie Assigned PCP 08/26/18 01/28/21 SAURABH Engel HOOP DRIVING MACHINE OPERATOR [address] [facility] [place] [address] documented as of this encounter
--- OUTSIDE RECORDS SUMMARY | 2022-05-09 11:02 | XMS_ITS | Encounter Summary ---
:1955 Author Organization [place] Address [facility] [place] [address] Care Team Providers Name Role Phone Tali Vilchis MD Unavailable Anat Fuller MD Unavailable [phone] Janny Hutton PA-C Unavailable [phone] Krystin Christie APRN, CNP Primary Care Provider [phone] Florecita Bryan RN Unavailable Krystin Christie APRN, CNP Unavailable [phone] Krystin Christie APRN, CNP Unavailable [phone] Reason for Referral Consultation - Closed Specialty Diagnoses / Procedures Referred By Contact Refer red To Contact Diagnoses Mild persistent asthma without complication Restrictive lung disease Krystin Christie APRN CNP [facility] [place] [address] Referral ID Status Reason Start Date Expiration Date Visits Requ ested Visits Authorized [id number] Closed 09/14/2018 09/14/2019 1 1 NIA OPERATOR Reason for Visit Reason Onset Date Comments Asthma 09/13/2018 Encounter Details Date Type Department Care Team Description 09/13/2018 Telephone [facility] Sonja Tinajero, Asthma Lola [facility] [address] [place] [address] [address] [place] [address] [phone] Social History Tobacco Use Types Packs/Day Years Used Date Smoking Tobacco: Never Smokeless Tobacco: Never Alcohol Use Standard Drinks/Week Comments No 0 (1 standard drink = 0.6 oz pure alcoho l) Sex Assigned at Date Recorded Female 08/17/2018 10:39 PM AMMONIA OPERATOR documented as of this encounter Miscellaneous Notes Telephone Encounter - Sonja Tinajero [facility] - 09/14/2018 11:22 AM AMMONIA OPERATOR Retail pharmacy able to fill pulmicort nebs 1 mg BID for $0 copay. However, will not be available until Monday. Sonja Tinajero PharmD Pharmaceutical Care Resident Pager: [phone] NIA OPERATOR Telephone Encounter - Zoie Izaguirre RN - 09/14/2018 9:34 AM AMMONIA OPERATOR Patient notified with information noted below from provider and agrees with plan. Requested my chartmessage sent with referral information. Zoie Rm RN - [facility] NIA OPERATOR Telephone Encounter - Krystin Christie APRN CNP - 09/14/2018 8:39 AM AMMONIA OPERATOR Please ask her to establish with [facility]. I recommend Dr. Pichardo N: [facility] Please ask them to: 1. Help clarify her diagnosis, specifically the portion regarding restrictive lung disease 2. Be sure she is on the best/cheapest meds NIA OPERATOR Telephone Encounter - Sonja Tinajero [facility] - 09/14/2018 4:52 AM AMMONIA OPERATOR Per verbal from Krystin Christie to find affordable therapy for asthma/restrictive lung disease. Called pt to discuss that insurance coverage for all inhalers LABA only, ICS only and LABA/LAMA are all tier 3. Co-pay of $90. Pt cannot afford this even though she will be running out of Breo Ellipta therapy. She is not sure if inhalers in the past has helped. Pt states she will try to see tin flipper TONIA while they may be able to provide an inhaler. Called [employer] to discuss pt cost barriers. After discussion with [facility] pharmacy department was told generic fluticasone-salmeterol will be approved. However, after this discussion pharmacy still reports generic rx was denied. Will need to consider pulmicort nebulizing solutions as next step. Sonja Tinajero, PharmD Pharmaceutical Care Resident Pager: [phone] NIA OPERATOR documented in this encounter Plan of Treatment Upcoming Encounters Date Type Specialty Care Team Description 05/19/2022 Office Visit ENT Dima Hidalgo M D [address] [place], [place] [address] (Wo rk) 08/02/2022 Office Visit Neurology Yair Campos MD [address] [place], [place] [address] (Wo rk) Scheduled Referrals Name Type Priority Associated Diagnoses Order S [facility] PULMONARY MEDICINE Referral Routine Mild persistent asthma Ordered: 09/14/2018 REFERRAL without complica tion Restrictive lung disease documented as of this encounter Visit Diagnoses Diagnosis Mild persistent asthma without complicat ion - Primary Unspecified asthma Restrictive lung disease Other diseases of lung, not elsewhere cl assified documented in this encounter Additional Health Concerns Assessment Noted Time PHQ-9 Depression Total Score: 4 08/24/2018 11:10 AM CS T documented as of this encounter Care Teams Healthcare Corporate Account Director Relationship Specialty Start Date End Date Krystin Christie PCP - General Nurse Practitioner 12/15/17 09/08/19 SAURABH Engel OPERATING ROOM COORDINATOR [address] [facility] [place] [id number] Krystin Christie PCP - Assigned PCP 08/26/18 09/18/18 SAURABH Engel OPERATING ROOM COORDINATOR [address] [facility] [place] [id number] Tali Vilchis MD INTERNAL MEDICINE - 04/10/15 ENDOCRINOLOGY, DIABETES [address] [facility] & METABOLISM [address] [place], [place] [address] Anat Fuller MD Internal Medicine 04/10/1509/16 MD Renee [address] [facility] [address] [place], [place] [address] Janny Hutton Physician Fireman Physician Fireman 06/30/15 09/17/19 CARLA Mckeon 420 [facility] [address]03 [place], [place] [address] Florecita Bryan, RN Lead Marketing Sales Representative 08/17/18 10/24/18 Krystin Christie Assigned PCP 08/26/18 01/28/21 SAURABH Engel OPERATING ROOM COORDINATOR [address] [place] [id number] documented as of this encounter
--- OUTSIDE RECORDS SUMMARY | 2022-05-09 11:02 | XMS_ITS | Encounter Summary ---
:1955 Author Organization [place] Address [address] [facility] [place] [address] Care Team Providers Name Role Phone Tali Vilchis MD Unavailable Anat Fuller MD Unavailable [phone] Janny Hutton PA-C Unavailable [phone] Krystin Christie APRN MARKETING OPERATIONS COORDINATOR Primary Care Provider [phone] Krystin Christie APRN MARKETING OPERATIONS COORDINATOR Unavailable [phone] Reason for Visit Reason Comments Medication Refill blood glucose monitoring (AC CU-CHEK ANNIE PLUS) test strip Encounter Details Date Type Department Care Team Description 11/02/[address] 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 Refill Protocol. Margie Badillo RN Message handled by Nurse Triage. Telephone Encounter - Marvin Bo - 11/02/2018 3:06 PM CDT Requested Prescriptions Pending Prescriptions Disp Refills ??? blood glucose (ACCU-CHEK ANNIE PLUS) test strip [Pharmacy Med Name: (Discontinued) ACCU-CHEK ANNIE PLUS STRIPS 100'S] Last Written Prescription Date: 06/30/2015 Last Fill Quantity: 180 each, # refills: 3 Last office visit: 10/18/2018 with prescribing provider: Alexy So MD Future Office Visit: Next 5 appointments (look out 90 days) Dec 17, 2018 3:00 PM CDT SHORT with Krystin Christie APRN [facility] [address] [place] [address] 200 strip 0 Sig: TEST TWICE DAILY Diabetic Supplies Protocol Passed - 11/02/2018 2:51 PM Passed - Medication is active on [...] & Orders section of the refill encounter. documented in this encounter Plan of Treatment Upcoming Encounters Date Type Specialty Care Team Description 05/19/2022 Office Visit ENT Dima Hidalgo M D [address] [place], [place] [address] (Sarah pino) 08/02/2022 Office Visit Neurology Yair Campos MD [address] [place], [place] [address] [place] [address] (Wo rk) documented as of this encounter Visit Diagnoses Diagnosis Type 2 diabetes mellitus without complic ation, without long-term current use of insulin (H) documented in this encounter Additional Health Concerns Assessment Noted Time PHQ-9 Depression Total Score: 4 08/24/2018 11:10 AM CS T documented as of this encounter Care Teams Lastex Operator Relationship Specialty Start Date End Date Krystin Christie PCP - General Nurse Practitioner 12/15/17 09/08/19 SAURABH Engel MARKETING OPERATIONS COORDINATOR [address] [facility] [place] [address] Tali Vilchis MD INTERNAL MEDICINE - 04/10/15 ENDOCRINOLOGY, DIABETES 420 [facility] MMC & METABOLISM [address] [place] [address] Anat Fuller MD Internal Medicine 04/10/1509/16 MD [place]e [address] [facility] [address] [place], [place] [address] Janny Hutton Physician Machine Skiver Physician Machine Skiver 06/30/15 09/17/19 CARLA Mckeon 420 [facility] 803 [place], [place] [address] Krystin Christie Assigned PCP 08/26/18 01/28/21 SAURABH Engel MARKETING OPERATIONS COORDINATOR [address] [facility] [place] [address] documented as of this encounter
--- OUTSIDE RECORDS SUMMARY | 2022-05-09 11:02 | XMS_ITS | Encounter Summary ---
:1955 Author Organization [place] Address [facility] [place] [address] Care Team Providers Name Role Phone Tali Vilchis MD Unavailable Anat Fuller MD Unavailable [phone] Janny Hutton PA-C Unavailable [phone] Krystin Christie APRN FLOOR STEWARD/STEWARDESS Primary Care Provider [phone] Florecita Bryan RN Unavailable Krystin Christie APRN FLOOR STEWARD/STEWARDESS Unavailable [phone] Encounter Details Date Type Department Care Team Description 10/15/2018 Travel Social History Tobacco Use Types Packs/Day Years Used Date Smoking Tobacco: Never Smokeless Tobacco: Never Alcohol Use Standard Drinks/Week Comments No 0 (1 standard drink = 0.6 oz pure alcoho l) Sex Assigned at Date Recorded Female 08/17/2018 10:39 PM BUSINESS OBJECTS documented as of this encounter Plan of Treatment Upcoming Encounters Date Type Specialty Care Team Description 05/19/2022 Office Visit ENT Dima Hidalgo M D [address] [place] [address] (Wo rk) 08/02/2022 Office Visit Neurology Yair Campos MD [address] [facility] [place], [place] [address] (Wo rk) documented as of this encounter Visit Diagnoses Not on filedocumented in this encounter Additional Health Concerns Assessment Noted Time PHQ-9 Depression Total Score: 4 08/24/2018 11:10 AM CS T documented as of this encounter Care Teams Personal Financial Counselor Relationship Specialty Start Date End Date Krystin Christie PCP - General Nurse Practitioner 12/15/17 09/08/19 SAURABH Engel FLOOR STEWARD/STEWARDESS [address] [facility] [place] [address] Tali Vilchis MD INTERNAL MEDICINE - 04/10/15 ENDOCRINOLOGY, DIABETES 420 [facility] MMC & METABOLISM 101 [place], [place] [address] Anat Fuller MD Internal Medicine 04/10/1509/16 MD Renee 516 [facility] [address] [place], [place] [address] Janny Hutton Physician Tar Leveler Physician Tar Leveler 06/30/15 09/17/19 CARLA Mckeon 420 [facility] MMC [address]03 [place], [place] [address] Florecita Bryan, RN Lead Quality Rn 08/17/18 10/24/18 Krystin Christie Assigned PCP 08/26/18 01/28/21 SAURABH Engel FLOOR STEWARD/STEWARDESS [address] [facility] [place] [address] documented as of this encounter
--- OUTSIDE RECORDS SUMMARY | 2022-05-09 11:02 | XMS_ITS | Encounter Summary ---
:1955 Author Organization [place] Address [address] [facility] [place] [address] Care Team Providers Name Role Phone Tali Vilchis MD Unavailable Anat Fuller MD Unavailable [phone] Janny Hutton PA-C Unavailable [phone] PratikKrystin newby APRN ELECTRICIAN WIRING Primary Care Provider [phone] Florecita Bryan RN Unavailable Krystin Christie APRN ELECTRICIAN WIRING Unavailable [phone] Reason for Referral Diagnostic Imaging NM - Closed Specialty Diagnoses / Procedures Referred By Contact Refer red To Contact Radiology. Diagnoses Abnormal liver function tests Early satiety Dietary counseling and surveillance Thomas Dewey MD Nuclear Medicine Procedures NM Gastric Emptying [place] [facility]O [address] [place], [place] [address]AN [facility] [address] 0 [place] [address] [place] [address] Referral ID Status Reason Start Date Expiration Date Visits Requ ested Visits Authorized [id number] Closed 09/26/2018 09/26/2019 1 1 Reason for Visit Diagnostic Imaging NM - Closed Specialty Diagnoses / Procedures Referred By Contact Refer red To Contact Radiology. Diagnoses Abnormal liver function tests Early satiety Dietary counseling and surveillance Thomas Dewey MD Nuclear Medicine Procedures NM Gastric Emptying [place] [facility] [address] [place] [address] [place] [address] Referral ID Status Reason Start Date Expiration Date Visits Requ ested Visits Authorized [id number] Closed 09/26/2018 09/26/2019 1 1 Encounter Details Date Type Department Care Team Description 10/01/2018 [facility] Thomas Dewey liver function tests; Encounter Christianne Denny MD Early satiety; [address] 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 Vitamin D, Take 1,000 Units by 0 Cholecalciferol, 1000 mouth daily units TABS albuterol (PROAIR Inhale 2 puffs into 0 10/01/2019 HFA/PROVENTIL the lungs every 6 HFA/VENTOLIN HFA) 108 hours as needed (90 Base) MCG/ACT inhaler blood glucose Use to test blood 200 [...] therapy, Morbid obesity, unspecified obesity type (H) budesonide (PULMICORT) Take 2 mLs (1 mg) by 60 mL 3 07/201801/07/2019 1 MG/2ML neb nebulization 2 times solutionIndications: daily Mild persistent asthma without complication, Restrictive lung disease ipratropium - albuterol Take 1 vial (3 mLs) 1 Box 0 10/01/2019 0.5 mg/2.5 mg/3 mL by nebulization every (DUONEB) 0.5-2.5 (3) 6 hours as needed for MG/3ML neb shortness of breath / solutionIndications: dyspnea or wheezing Mild persistent asthma with acute exacerbation levothyroxine Take 1 tablet (25 90 tablet 0 09/20/201812/16 (SYNTHROID/LEVOTHROID) mcg) by mouth daily 25 MCG tabletIndications: Subclinical hypothyroidism metFORMIN TAKE 4 TABLETS(2000 360 tablet 0 09/20/201801/07 (GLUCOPHAGE-XR) 500 MG MG) BY MOUTH DAILY 24 hr tabletIndications: Type 2 diabetes mellitus without complication, without long-term current use of insulin (H), Morbid obesity, unspecified obesity type (H) pioglitazone (ACTOS) 15 Take 1 tablet (15 mg) 90 tablet 1 0 09/20/2018 01/07/2019 MG tabletIndications: by mouth daily Type 2 diabetes mellitus without complication, without long-term current use of insulin (H) documented as of this encounter Plan of Treatment Upcoming Encounters Date Type Specialty Care Team Description 05/19/2022 Office Visit ENT Dima Hidalgo M D [address] [facility] [place], [place] [address] (Wo odette) 08/02/2022 Office Visit Neurology Yair Campos MD 420 [place] [address] (Wo odette) documented as of this encounter Procedures Procedure Name Priority Date/Time Associated Diagnosis Comme [facility] GASTRIC EMPTYING Routine 10/01/2018 12:06 Abnormal liver Re sults for this PM CDT function tests procedure are in Early satiety the results Dietary counseling section. and surveillance documented in this encounter Results NM Gastric Emptying (10/01/2018 12:06 PM CDT) Anatomical Region Laterality Modality Abdomen/Pelvis Nuclear Medicine Specimen (Source) Anatomical Location Collection Method / Collectio n Time Received Time / Laterality Volume Impressions 10/01/2018 4:26 PM CDT IMPRESSION: Abnormally delayed gastric emptying study. ROBYN BRENNER MD Narrative 10/01/2018 4:26 PM CDT NUCLEAR MEDICINE GASTRIC EMPTYING October 01, 2018 12:06 PM HISTORY: Abnormal liver function tests. Early satiety. Dietary counseling and surveillance. COMPARISON: None. TECHNIQUE: Patient was given Tc99M label ed sulfur colloid in food. Immediate, one, two, three, and four phill rs static images over the stomach or until less than 10% of radion uclide remains in stomach DOSE: 1.1mCi Tc99m Sulfur Colloid in egg s P.O. FINDINGS: ??The amount of retained activ ity within the stomach is as follows- One hour: ??87% (Normal 30-90%) Two hour: ??73% (Normal <60%) Three hour: ??48% (Normal <30%) Four hour: ??29% (Normal <10%) Procedure Note Robyn Brenner MD - 10/01/2018Fo rmatting of this note might be different from the original. NUCLEAR MEDICINE GASTRIC EMPTYING October 01, 2018 12:06 PM HISTORY: Abnormal liver function tests. Early satiety. Dietary counseling and surveillance. COMPARISON: None. TECHNIQUE: Patient was given Tc99M label ed sulfur colloid in food. Immediate, one, two, three, and four phill rs static images over the stomach or until less than 10% of radion uclide remains in stomach DOSE: 1.1mCi Tc99m Sulfur Colloid in egg s P.O. FINDINGS: The amount of retained activit y within the stomach is as follows- One hour: 87% (Normal 30-90%) Two hour: 73% (Normal <60%) Three hour: 48% (Normal <30%) Four hour: 29% (Normal <10%) IMPRESSION: Abnormally delayed gastric e mptying study. ROBYN BRENNER MD Thomas Dewey MD IMG NM ORDERABLES documented in this encounter Visit Diagnoses Diagnosis Abnormal liver function tests Other abnormal blood chemistry Early satiety Dietary counseling and surveillance Dietary surveillance and counseling documented in this encounter Administered Medications Inactive Administered Medications - up to 3 most recent administrations Medication Order MAR Action Action Date Dose Rate Site technetium sulfur colloid Given 10/01/2018 7:59 AM 1.1 millicuri es radioisotope oral solution CDT 1 millicurie 1 millicurie, Oral, ONCE, On 10/01/18 at 0800, For 1 dose, Supplied by, and administered by Nuclear Medicine. *HW* documented in this encounter Additional Health Concerns Assessment Noted Time PHQ-9 Depression Total Score: 4 08/24/2018 11:10 AM CS T documented as of this encounter Care Teams Electric Screw Driver Operator Relationship Specialty Start Date End Date Krystin Christie PCP - General Nurse Practitioner 12/15/17 09/08/19 SAURABH Engel ELECTRICIAN WIRING [address] [facility] [place] [id number] Tali Vilchis MD INTERNAL MEDICINE - 04/10/15 ENDOCRINOLOGY, DIABETES [address] MMC & METABOLISM [address] [place] [address] Anat Fuller MD Internal Medicine 04/10/1509/16 MD Renee 516 [facility] [address] [place] [address] Janny Hutton Physician Blower Operator Physician Blower Operator 06/30/15 09/17/19 CARLA Mckeon [address] [address] [facility] 803 [place] [address] Florecita Bryan, RN Lead Flask Carrier 08/17/18 10/24/18 Krystin Christie Assigned PCP 08/26/18 01/28/21 SAURABH Engel ELECTRICIAN WIRING [address] [facility] [place] [id number] documented as of this encounter
--- OUTSIDE RECORDS SUMMARY | 2022-05-09 11:02 | XMS_ITS | Encounter Summary ---
:1955 Author Organization [place] Address [address] [facility] [address] Care Team Providers Name Role Phone Tali Vilchis MD Unavailable Anat Fuller MD Unavailable [phone] Janny Hutton PA-C Unavailable [phone] Krystin Christie APRN, CNP Primary Care Provider Florecita Bryan RN Unavailable Krystin Christie APRN, CNP Unavailable [phone] Reason for Visit Reason Onset Date Comments Form Request 09/24/2018 records request for [place] [facility] Encounter Details Date Type Department Care Team Description 09/24/2018 Telephone [facility] Krystin Christie Reque (records Clinic [place] Engel APRN CNP request for [place] [facility]) [address] [place] [address] [facility] [address] [place] [address] [place] [address] [phone] Social History Tobacco Use Types Packs/Day Years Used Date Smoking Tobacco: Never Smokeless Tobacco: Never Alcohol Use Standard Drinks/Week Comments No 0 (1 standard drink = 0.6 oz pure alcoho l) Sex Assigned at Date Recorded Female 08/17/2018 10:39 PM 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 Sent to abstraction. Lauren Linares CMA Telephone Encounter - Lauren Linares MA - 09/24/2018 1:22 PM CDT Fax sent requesting records from [facility] - fax [phone]. Lauren Linares CMA Telephone Encounter - Krystin Christie APRN CNP - 09/24/2018 1:11 PM CDT PLease obtain most recent records from [facility] documented in this encounter Plan of Treatment Upcoming Encounters Date Type Specialty Care Team Description 05/19/2022 Office Visit ENT Dima Hidalgo M D [address] [place], [place] [address] (Wo rk) 08/02/2022 Office Visit Neurology Yair Campos MD [address] [place], [place] [address] [place] [address] (Wo rk) documented as of this encounter Visit Diagnoses Not on filedocumented in this encounter Additional Health Concerns Assessment Noted Time PHQ-9 Depression Total Score: 4 08/24/2018 11:10 AM CS T documented as of this encounter Care Teams Exterior Work Helper Relationship Specialty Start Date End Date Krystin Christie PCP - General Nurse Practitioner 12/15/17 09/08/19 SAURABH Engel CHIROPRACTIC NEUROLOGIST [address] [facility] [place] [id number] Tali Vilchis MD INTERNAL MEDICINE - 04/10/15 ENDOCRINOLOGY, DIABETES 420 [facility] MMC & METABOLISM 101 [place], [place] [address] Anat Fuller MD Internal Medicine 04/10/1509/16 MD Renee 516 [facility] [address] [place], [place] [address] Janny Hutton Physician Children'S Service Supervisor Physician Children'S Service Supervisor 06/30/15 09/17/19 CARLA Mckeon 420 [facility] 803 [place], [place] [address] Florecita Bryan, RN Lead Rose Grower 08/17/18 10/24/18 Krystin Christie Assigned PCP 08/26/18 01/28/21 SAURABH Engel CHIROPRACTIC NEUROLOGIST [address] [facility] [place] [address] documented as of this encounter
--- OUTSIDE RECORDS SUMMARY | 2022-05-09 11:02 | XMS_ITS | Encounter Summary ---
:1955 Author Organization [place] Address [address] [facility] [place] [address] Care Team Providers Name Role Phone Tali Vilchis MD Unavailable Anat Fuller MD Unavailable [phone] Janny Hutton PA-C Unavailable [phone] Krystin Christie APRN INDUSTRIAL/ORGANIZATIONAL PSYCHOLOGIST Primary Care Provider [phone] Florecita Bryan RN Unavailable Krystin Christie APRN INDUSTRIAL/ORGANIZATIONAL PSYCHOLOGIST Unavailable [phone] Encounter Details Date Type Department Care Team Description 09/20/2018 Travel Social History Tobacco Use Types Packs/Day Years Used Date Smoking Tobacco: Never Smokeless Tobacco: Never Alcohol Use Standard Drinks/Week Comments No 0 (1 standard drink = 0.6 oz pure alcoho l) Sex Assigned at Date Recorded Female 08/17/2018 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 documented as of this encounter Plan of Treatment Upcoming Encounters Date Type Specialty Care Team Description 05/19/2022 Office Visit ENT Dima Hidalgo M D [address] [place] [address] (Wo rk) 08/02/2022 Office Visit Neurology Yair Campos MD [address] [facility] [place], [place] [address] (Wo rk) documented as of this encounter Visit Diagnoses Not on filedocumented in this encounter Additional Health Concerns Assessment Noted Time PHQ-9 Depression Total Score: 4 08/24/2018 11:10 AM CS T documented as of this encounter Care Teams Survey Instrument Operator Relationship Specialty Start Date End Date Krystin Christie PCP - General Nurse Practitioner 12/15/17 09/08/19 SAURABH Engel INDUSTRIAL/ORGANIZATIONAL PSYCHOLOGIST [address] [facility] [place] [address] Tali Vilchis MD INTERNAL MEDICINE - 04/10/15 ENDOCRINOLOGY, DIABETES 420 [facility] MMC & METABOLISM [address] [place], [place] [address] Anat Fuller MD Internal Medicine 04/10/1509/16 MD Renee 516 [facility] [address] [place], [place] [address] Janny Hutton Physician Brake Operator Sheet Metal Physician Brake Operator Sheet Metal 06/30/15 09/17/19 CARLA Mckeon 420 [facility]ENC[facility] MMC [address]03 [place], [place] [address] Florecita Bryan, RN Lead Laborer Construction Or Leak Gang 08/17/18 10/24/18 Krystin Christie Assigned PCP 08/26/18 01/28/21 SAURABH Engel INDUSTRIAL/ORGANIZATIONAL PSYCHOLOGIST [address] [facility] [place] [address] documented as of this encounter
--- OUTSIDE RECORDS SUMMARY | 2022-05-09 11:02 | XMS_ITS | Encounter Summary ---
:1955 Author Organization [place] Address [address] [facility] [address] Care Team Providers Name Role Phone Tali Vilchis MD Unavailable Anat Fuller MD Unavailable [phone] Janny Hutton PA-C Unavailable [phone] Krystin Christie APRN, CNP Primary Care Provider [phone] Florecita Bryan RN Unavailable Krystin Christie APRN, CNP Unavailable [phone] Reason for Visit Reason Onset Date Comments Medication Assistance 09/20/2018 Rx Assist Prog marco ne consult Encounter Details Date Type Department Care Team Description 09/20/2018 Telephone [facility] Krystin Christei Medication Assistance Clinic [place] Engel APRN CNP (Rx Assist Prog phone [address] [place] 3305 [facility] consu ) [facility] [address] [place] [address] [place] [address] [phone] Social History Tobacco Use Types Packs/Day Years Used Date Smoking Tobacco: Never Smokeless Tobacco: Never Alcohol Use Standard Drinks/Week Comments No 0 (1 standard drink = 0.6 oz pure alcoho l) Sex Assigned at Date Recorded Female 08/17/2018 10:39 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 We reviewed the Prescription Assistance Program for manfacturer brand name assistance programs, gross income, insurance and Rx list. Becki is over income for the Pharmacy Assistance Fund. Becki is over income for the Pharmacy Assistance fund. Becki was needing assistance for Breo Ellipta. She is over income for that program. There are no other programs available for her medications. Becki will contact us if needed in the future. Kesha nAton Prescription City Dispatch Supervisor ICE CLEANER documented in this encounter Plan of Treatment Upcoming Encounters Date Type Specialty Care Team Description 05/19/2022 Office Visit ENT Dima Hidalgo M D [address] [place], [place] [address] (Wo rk) 08/02/2022 Office Visit Neurology Yair Campos MD 420 [facility] [address] [place], [place] [address] (Wo rk) documented as of this encounter Visit Diagnoses Not on filedocumented in this encounter Additional Health Concerns Assessment Noted Time PHQ-9 Depression Total Score: 4 08/24/2018 11:10 AM CS T documented as of this encounter Care Teams Laborer Petroleum Refinery Relationship Specialty Start Date End Date Krystin Christie PCP - General Nurse Practitioner 12/15/17 09/08/19 SAURABH Engel REMOTE SENSING ENGINEER [address] [facility] [address] Tali Vilchis MD INTERNAL MEDICINE - 04/10/15 ENDOCRINOLOGY, DIABETES 420 [facility] MMC & METABOLISM 101 [place], [place] [address] Anat Fuller MD Internal Medicine 04/10/1509/16 MD Renee 516 [facility] [address] [place], [place] [address] Janny Hutton Physician Glass Cut Off Supervisor Physician Glass Cut Off Supervisor 06/30/15 09/17/19 CARLA Mckeon 420 [facility] 803 [place] [address] Florecita Bryan, RN Lead Oracle Solutions Architect 08/17/18 10/24/18 Krystin Christie Assigned PCP 08/26/18 01/28/21 SAURABH Engel REMOTE SENSING ENGINEER [address] [facility] [place] [address] documented as of this encounter
--- OUTSIDE RECORDS SUMMARY | 2022-05-09 11:02 | XMS_ITS | Encounter Summary ---
:1955 Author Organization [place] Address [address] [place] [address] Care Team Providers Name Role Phone Tali Vilchis MD Unavailable Anat Fuller MD Unavailable [phone] Janny Hutton PA-C Unavailable [phone] Krystin Christie APRN, CNP Primary Care Provider [phone] Krystin Christie APRN, CNP Unavailable [phone] Reason for Visit Reason Onset Date Comments Prior Auth - Medication 11/11/2018 blood glucose (A CCU-CHEK ANNIE PLUS) test strip Encounter Details Date Type Department Care Team Description 11/11/2018 Telephone [facility] Krystin Christie Auth - Medication Clinic Lola nEgel APRN CNP (blood glucose [address] [place] [facility] (ACCU -CHEK ANNIE PLUS) [facility] [address] test strip) [address] [place] [address] [place] [id number] [phone] Social History Tobacco Use Types Packs/Day Years Used Date Smoking Tobacco: Never Smokeless Tobacco: Never Alcohol Use Standard Drinks/Week Comments No 0 (1 standard drink = 0.6 oz pure alcoho l) Sex Assigned at Date Recorded Female 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 Lauren Linares CMA Telephone Encounter - Lauren Linares MA - 11/20/2018 2:48 PM CDT Form received [facility] Lauren Linares CMA Telephone Encounter - Lauren Linares MA - 11/20/2018 11:52 AM CDT Called [facility] and asked them to send form to station B fax. Lauren Linares CMA Telephone Encounter - Malika Owen - 11/19/2018 10:00 AM CDT Pharmacist called back from [facility] confirming that they need a CMN form filled out by the clinic,he stated it was sent, but if needed to send it again to call him back at [phone] and give him the fax number the clinic would like it sent to. Please note PA team does not handle CMN paperwork, routing back to clinic. Telephone Encounter - Krystin Christie APRN CNP - 11/19/2018 9:49 AM CDT Re Rx'ed to test 5x daily Telephone Encounter - Malika Owen - 11/16/2018 12:22 PM CDT Images from the original note were not included. PRIOR AUTHORIZATION DENIED Medication: blood glucose (ACCU-CHEK ANNIE PLUS) test strip Denial Date: 11/15/2018 Denial Rational: Patient has Medicare Part B which covers diabetic supplies. Per medicare rules PartD does not cover these supplies. Called pharmacy and made them aware to process through Part B. Medicare has changed rules in how many times patient's are allowed to test per day. Pharmacy may have to contact clinic to change how many times per day patient is testing. Appeal Information: n/a Telephone Encounter - Malika Owen - 11/15/2018 11:14 AM CDT PA Initiation Medication: blood glucose (ACCU-CHEK ANNIE PLUS) test strip Insurance Company: [employer] - Pharmacy Filling the Rx: [id number] - [place], [place] - [address] [facility] Filling Pharmacy Filling Pharmacy Fax: Start Date: 11/15/2018 Central Prior Authorization Team Manually faxed prior authorization form to [facility] at fax# [phone] Telephone Encounter - Antonia Tapia - 11/11/2018 8:00 PM CDT Prior Authorization Retail Medication Request Medication/Dose: blood glucose (ACCU-CHEK ANNIE PLUS) test strip ICD code (if different than what is on RX): Previously Tried and Failed: Rationale: Insurance Name: Pharmacy Information (if different than what is on RX) Name: Phone: MESSAGE: PLAN DOES NOT COVER THIS MEDICATION. PLEASE CALL PLAN AT [phone] TO INITIATE PRIOR AUTHORIZATION OR CALL/ FAX PHARMACY TO CHANGE MEDICATION. documented in this encounter Plan of Treatment Upcoming Encounters Date Type Specialty Care Team Description 05/19/2022 Office Visit ENT Dima Hidalgo M D [address] [phone] (Wo rk) 08/02/2022 Office Visit Neurology Yair Campos MD [address] [facility] [place] [address] (Wo rk) documented as of this encounter Visit Diagnoses Diagnosis Type 2 diabetes mellitus without complic ation, without long-term current use of insulin (H) documented in this encounter Additional Health Concerns Assessment Noted Time PHQ-9 Depression Total Score: 4 08/24/2018 11:10 AM CS T documented as of this encounter Care Teams Assistant Loan Processor Relationship Specialty Start Date End Date Krystin Christie PCP - General Nurse Practitioner 12/15/17 09/08/19 SAURABH Engel BLINTZE ROLLER [address] [facility] [place] [id number] Tali Vilchis MD INTERNAL MEDICINE - 04/10/15 MD ENDOCRINOLOGY, DIABETES [address] [facility] [address] & METABOLISM [address] [place] [address] Anat Fuller MD Internal Medicine 04/10/1509/16 MD Renee [address] [facility] [address] [place], [place] [address] Janny Hutton Physician Director Pharmacovigilance Physician Director Pharmacovigilance 06/30/15 09/17/19 CALRA Mckeon [address] [facility] [address] [place], [place] [address] Krystin Christie Assigned PCP 08/26/18 01/28/21 SAURABH Engel BLINTZE ROLLER [address] [facility] [place] [id number] documented as of this encounter
--- OUTSIDE RECORDS SUMMARY | 2022-05-09 11:02 | XMS_ITS | Encounter Summary ---
:1955 Author Organization [place] Address [address] [facility] [place] [address] Care Team Providers Name Role Phone Tali Vilchis MD Unavailable Anat Fuller MD Unavailable [phone] Janny Hutton PA-C Unavailable [phone] Krystin Christie APRN, CNP Primary Care Provider [phone] Florecita Bryan RN Unavailable Krystin Christie APRN, CNP Unavailable [phone] Krystin Christie APRN, CNP Unavailable [phone] Reason for Visit Reason Onset Date Comments Hospital F/U 09/11/2018 Subclinical Hypothyr oidism, Weakness ED0/ IP 0 Encounter Details Date Type Department Care Team Description 09/11/2018 Telephone [facility] F /U Clinic Lola Engel APRN CNP (Subclinical [address] [place] [address] [facility] Hypot hyroidism, [address] Weakness ED0/ IP 0) [address] [place] [address] [place] [address] [phone] Social History Tobacco Use Types Packs/Day Years Used Date Smoking Tobacco: Never Smokeless Tobacco: Never Alcohol Use Standard Drinks/Week Comments No 0 (1 standard drink = 0.6 oz pure alcoho l) Sex Assigned at Date Recorded Female 08/17/2018 10:39 PM 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 Yes. May I please speak with <patient name> Is patient available? Yes Hospital/TCU/ED for chronic condition Discharge Protocol Hi, my name is Margie Badillo, a registered nurse, and I am calling from [facility]. I amcalling to follow up and see how things are going for you after your recent emergency visit/hospital/TCU stay. Tell me how you are doing now that you are home? good Discharge Instructions Let's review your discharge instructions. What is/are the follow-up recommendations? Pt. Response: appointment with PCP Has an appointment with your primary care provider been scheduled? Yes. (confirm) When you see the provider, I would recommend that you bring your medications with you. Medications Tell me what changed about your medicines when you discharged? Changes to chronic meds? 0-1 What questions do you have about your medications? None New diagnoses of heart failure, COPD, diabetes, or CO? No Medication reconciliation completed? Yes Was MTM referral placed (*Make sure to put transitions as reason for referral)? Already placed-patient will schedule appointment with PCP and MTM on the . Call was transferred to schedule both appointments. Call Summary What questions or concerns do you have about your recent visit and your follow- up care? none If you have questions or things don't continue to improve, we encourage you contact us through the main clinic number (give number). Even if the clinic is not open, triage nurses are available 06/02 tohelp you. We would like you to know that our clinic has extended hours (provide information). We also have urgent care (provide details on closest location and hours/contact info) Thank you for your time and take care! BASIS CONSULTANT Telephone Encounter - Zoie Izaguirre RN - 09/11/2018 9:44 AM SAP BASIS CONSULTANT ED / Discharge Outreach Protocol Patient Contact Attempt # 1 Was call answered? No. Left message on voicemail with information to call me back. BASIS CONSULTANT Telephone Encounter - Rachael Hardy - 09/11/2018 7:48 AM CST Please contact patient for In-patient follow up. [phone] (home) Visit date: 09/09 - D/C'd 09/10/2018 Diagnosis listed:Subclinical Hypothyroidism, Weakness Number of visits in past 12 months:ED0/IP 0 BASIS CONSULTANT documented in this encounter Plan of Treatment Upcoming Encounters Date Type Specialty Care Team Description 05/19/2022 Office Visit ENT Dima Hidalgo M D [address] [facility] [place] [place], [place] [address] (Wo rk) 08/02/2022 Office Visit Neurology Yair Campos MD [address] [place] [phone] (Wo rk) documented as of this encounter Visit Diagnoses Not on filedocumented in this encounter Additional Health Concerns Assessment Noted Time PHQ-9 Depression Total Score: 4 08/24/2018 11:10 AM CS T documented as of this encounter Care Teams Claim Inspector Relationship Specialty Start Date End Date Krystin Christie PCP - General Nurse Practitioner 12/15/17 09/08/19 SAURABH Engel RADIO ELECTRICIAN [address] [facility] [place] [address] Krystin Christie PCP - Assigned PCP 08/26/18 09/18/18 SAURABH Engel RADIO ELECTRICIAN [address] [facility] [place] [address] Tali Vilchis MD INTERNAL MEDICINE - 04/10/15 MD ENDOCRINOLOGY, DIABETES [address] [place] [address] & METABOLISM [address] [place], [place] [address] Anat Fuller MD Internal Medicine 04/10/1509/16 MD Renee [address] [facility] [address] [place] [address] Janny Hutton Physician Online Advertising Analyst Physician Online Advertising Analyst 06/30/15 09/17/19 CARLA Mckeon [address] [facility] [address]03 [place] [address] Florecita Bryan, RN Lead Test Consultant 08/17/18 10/24/18 Krystin Christie Assigned PCP 08/26/18 01/28/21 SAURABH Engel RADIO ELECTRICIAN [address] [facility] [place] [address] documented as of this encounter
--- OUTSIDE RECORDS SUMMARY | 2022-05-09 11:02 | XMS_ITS | Encounter Summary ---
:1955 Author Organization [place] Address [facility] [address] Care Team Providers Name Role Phone Tali Vilchis MD Unavailable Anat Fuller MD Unavailable [phone] Janny Hutton PA-C Unavailable [phone] Krystin Christie APRN INFANT LEAD TEACHER Primary Care Provider [phone] Florecita Bryan RN Unavailable Krystin Christie APRN INFANT LEAD TEACHER Unavailable [phone] Encounter Details Date Type Department Care Team Description 10/01/2018 Travel Social History Tobacco Use Types Packs/Day Years Used Date Smoking Tobacco: Never Smokeless Tobacco: Never Alcohol Use Standard Drinks/Week Comments No 0 (1 standard drink = 0.6 oz pure alcoho l) Sex Assigned at Date Recorded Female 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 documented as of this encounter Plan of Treatment Upcoming Encounters Date Type Specialty Care Team Description 05/19/2022 Office Visit ENT Dima Hidalgo M D [address] [address] (Wo rk) 08/02/2022 Office Visit Neurology Yair Campos MD [address] [facility] [address] [place], [place] [address] (Wo rk) documented as of this encounter Visit Diagnoses Not on filedocumented in this encounter Additional Health Concerns Assessment Noted Time PHQ-9 Depression Total Score: 4 08/24/2018 11:10 AM CS T documented as of this encounter Care Teams Exercise Specialist Relationship Specialty Start Date End Date Krystin Christie PCP - General Nurse Practitioner 12/15/17 09/08/19 SAURABH Engel INFANT LEAD TEACHER [address] [facility] [place] [address] Tali Vilchis MD INTERNAL MEDICINE - 04/10/15 ENDOCRINOLOGY, DIABETES [address] [facility] [address] & METABOLISM [address] [place], [place] [address] Anat Fuller MD Internal Medicine 04/10/1509/16 MD Renee [address] [facility] [address] [place], [place] [address] Janny Hutton Physician Seamark Advanced Operator Maintainer Physician Seamark Advanced Operator Maintainer 06/30/15 09/17/19 CARLA Mckeon [address] [facility] [address] [place], [place] [address] Florecita Bryan, RN Lead Associate Relations Specialist 08/17/18 10/24/18 Krystin Christie Assigned PCP 08/26/18 01/28/21 SAURABH Engel INFANT LEAD TEACHER [address] [facility] [place] [address] documented as of this encounter
--- OUTSIDE RECORDS SUMMARY | 2022-05-09 11:02 | XMS_ITS | Encounter Summary ---
:1955 Author Organization [place] Address [facility] [place] [address] Care Team Providers Name Role Phone Tali Vilchis MD Unavailable Anat Fuller MD Unavailable [phone] Janny Hutton PA-C Unavailable [phone] Krystin Christie APRN CASHIER TUBE ROOM Primary Care Provider [phone] Florecita Bryan RN Unavailable Krystin Christie APRN CASHIER TUBE ROOM Unavailable [phone] Encounter Details Date Type Department Care Team Description 10/18/2018 Travel Social History Tobacco Use Types Packs/Day Years Used Date Smoking Tobacco: Never Smokeless Tobacco: Never Alcohol Use Standard Drinks/Week Comments No 0 (1 standard drink = 0.6 oz pure alcoho l) Sex Assigned at Date Recorded Female 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 documented as of this encounter Plan of Treatment Upcoming Encounters Date Type Specialty Care Team Description 05/19/2022 Office Visit ENT Dima Hidalgo M D [address] [address] (Wo rk) 08/02/2022 Office Visit Neurology Yair Campos MD [address] [facility] [address] [place], [place] [address] (Wo rk) documented as of this encounter Visit Diagnoses Not on filedocumented in this encounter Additional Health Concerns Assessment Noted Time PHQ-9 Depression Total Score: 4 08/24/2018 11:10 AM CS T documented as of this encounter Care Teams Utilities Manager Relationship Specialty Start Date End Date Krystin Christie PCP - General Nurse Practitioner 12/15/17 09/08/19 SAURABH Engel CASHIER TUBE ROOM [address] [facility] [place] [address] Tali Vilchis MD INTERNAL MEDICINE - 04/10/15 ENDOCRINOLOGY, DIABETES [address] [facility] [address] & METABOLISM [address] [place], [place] [address] Anat Fuller MD Internal Medicine 04/10/1509/16 MD Renee [address] [facility] [address] [place], [place] [address] Janny Hutton Physician Veteran Appeals Reviewer Physician Veteran Appeals Reviewer 06/30/15 09/17/19 CARLA Mckeon [address] [facility] [address] [place], [place] [address] Florecita Bryan, RN Lead Talk Show Host 08/17/18 10/24/18 Krystin Christie Assigned PCP 08/26/18 01/28/21 SAURABH Engel CASHIER TUBE ROOM [address] [facility] [place] [address] documented as of this encounter
--- OUTSIDE RECORDS SUMMARY | 2022-05-09 11:02 | XMS_ITS | Encounter Summary ---
:1955 Author Organization [facility] Address [address] [place] [address] Care Team Providers Name Role Phone Tali Vilchis MD Unavailable Anat Fuller MD Unavailable [phone] Janny Hutton PA-C Unavailable [phone] Krystin Christie APRN SPA THERAPIST Primary Care Provider Florecita Bryan RN Unavailable Krystin Christie APRN SPA THERAPIST Unavailable [phone] Reason for Visit Reason Comments URI Encounter Details Date Type Department Care Team Description 10/18/2018 Office Visit [facility] Alexy So MD Atypical pneumonia Clinic [place] [address] [facility] (Primary Dx) [address] [facility] [place] [address] [address] [place] [address] (Work) [phone] Social History Tobacco Use Types Packs/Day Years Used Date Smoking Tobacco: Never Smokeless Tobacco: Never Alcohol Use Standard Drinks/Week Comments No 0 (1 standard drink = 0.6 oz pure alcoho l) Sex Assigned at Date Recorded Female 08/17/2018 10:39 PM [employer]PUTER [employer] documented as of this encounter Last Filed Vital Signs Vital Sign Reading Time Taken Comments Blood Pressure 116/72 10/18/2018 4:23 PM CDT Pulse 88 10/18/2018 4:23 PM CDT Temperature 36.9 ??C (98.5 ??F) 10/18/2018 4:23 PM CDT Respiratory Rate - - Oxygen Saturation 96% 10/18/2018 4:23 PM CDT Inhaled Oxygen Concentration - - Weight 87.9 kg (193 lb 11.2 oz) 10/18/2018 4:23 PM CDT Height 160 cm (5' 3) 10/18/2018 4:23 PM CDT Body Mass Index 34.31 10/18/2018 4:23 PM CDT documented in this encounter Patient Instructions Patient InstructionsAlexy So MD - 10/18/2018 4:20 PM CDT Saline spray (nonmedicated salt water) in small squirt bottles can be used every hour or two during the day, as can humidifiers during the night. Steam showers can help keep mucous loose. For adults and kids over 6, expectorants (like Mucinex or Robitussin) may help, as can using cough supressants (like the DM in Mucinex DM and Robitussin DM). Might benefit from antihistamines like Zyrtec (cetirizine) for relief of congestion; the dose is usually 10 mg for adults. May fill prescription for azithromycin if symptoms not improving. Alexy So MD Internal Medicine and Pediatrics documented in this encounter Progress Notes Alexy So MD - 10/18/2018 4:20 PM CDT SUBJECTIVE: Becki Ridley is a 63 year old female who presents to clinic today for the following health issues: RESPIRATORY SYMPTOMS ?? Duration: couple weeks ?? Description nasal congestion, rhinorrhea, sore throat, facial pain/pressure, cough painful, fever, chills, fatigue/malaise, hoarse voice, myalgias and swollen glands ?? Severity: worse at night, coughing really hard at night ?? Accompanying signs and symptoms: None ?? History (predisposing factors): none ?? Precipitating or alleviating factors: laying down- cough more ?? Therapies tried and outcome: Tylenol cold and flu, Claritin- neither helping Began with sore throat and aches about 2 weeks ago. Has not been able to help with mom. Developed cough, greenish phelgm. Had tactile temps and chills. No earache, only mild glandular pressure. Overall had gotten better, but then got worse again about 5 days ago. Tylenol and claritin helping minimally. No flu shot. Problem list and histories reviewed & adjusted, as indicated. Additional history: as documented Patient Active Problem List Diagnosis ? ? [...] liver ??? COLONOSCOPY age 52 OK results Social History Tobacco Use ??? Smoking status: Never Smoker ??? Smokeless tobacco: Never Used Substance Use Topics ??? Alcohol use: No Alcohol/week: 0.0 oz Family History Problem Relation Age of Onset [...] into the lungs every 6 hours ??? azithromycin (ZITHROMAX) 250 MG tablet Take 2 tablets (500 mg) by mouth daily for 1 day, THEN 1 tablet (250 mg) daily for 4 days. 6 tablet 0 ??? blood glucose monitoring (JAYLENE CONTOUR NEXT) test strip Use to test blood sugar 2 times daily or as directed. 200 each 3 ??? blood glucose monitoring ([employer] MICROLET) lancets Use to test blood sugar 2 times daily or as directed. 4 Box 3 ??? budesonide (PULMICORT) 1 MG/2ML neb solution Take 2 mLs (1 mg) by nebulization 2 times daily 60 mL 3 ??? EPINEPHrine (EPIPEN 2-KITTY) 0.3 MG/0.3ML injection Inject 0.3 mg into the muscle once as needed. ??? ipratropium - albuterol 0.5 mg/2.5 mg/3 mL (DUONEB) 0.5-2.5 (3) MG/3ML neb solution Take 1 vial (3 mLs) by nebulization every 6 hours as needed for shortness of breath / dyspnea or wheezing 1 Box 0 ??? levothyroxine (SYNTHROID/LEVOTHROID) 25 MCG tablet Take 1 tablet (25 mcg) by mouth daily 90 tablet 0 ??? metFORMIN (GLUCOPHAGE-XR) 500 MG 24 hr tablet TAKE 4 TABLETS(2000 MG) BY MOUTH DAILY 360 tablet 0 ??? pioglitazone (ACTOS) 15 MG tablet Take 1 tablet (15 mg) by mouth daily 90 tablet 1 ??? Vitamin D, Cholecalciferol, 1000 units TABS Take 1,000 Units by mouth daily Allergies Allergen Reactions ??? Cipro [Quinolones] Itching and Difficulty breathing ??? Ciprofloxacin Itching and Shortness Of Breath ??? Codeine Shortness Of Breath Other reaction(s): Syncope ??? Codeine Sulfate Other (See Comments) Blacked out ??? Vicodin [Hydrocodone-Acetaminophen] Itching and Difficulty breathing ??? Darvocet [Propoxyphene N-Apap] Itching BP Readings from Last 3 Encounters: 10/18/18 116/72 09/20/18 108/62 09/20/18 112/69 Wt Readings from Last 3 Encounters: 10/18/18 87.9 kg (193 lb 11.2 oz) 09/20/18 85.7 kg (188 lb 14.4 oz) 09/20/18 85.8 kg (189 lb 1.6 oz) Labs reviewed in [facility] Reviewed and updated as needed this visit by clinical staff Reviewed and updated as needed this visit by Provider ROS: CONSTITUTIONAL: NEGATIVE for fever, chills, change in weight ENT/MOUTH: NEGATIVE for ear, mouth and throat problems RESP: NEGATIVE for significant cough or SOB CV: NEGATIVE for chest pain, palpitations or peripheral edema OBJECTIVE: BP 116/72 (BP Location: Right arm, Patient Position: Sitting, Cuff Size: Adult Large) Pulse 88 Temp 98.5 ??F (36.9 ??C) (Tympanic) Ht 1.6 m (5' 3) Wt 87.9 kg (193 lb 11.2 oz) SpO2 96% BMI 34.31 kg/m?? Body mass index is 34.31 kg/m??. GENERAL: healthy, alert, well nourished, well hydrated, no distress HENT: ear canals- normal; TMs- normal; Nose- normal; Mouth- no ulcers, no lesions NECK: no tenderness, no adenopathy, no asymmetry, no masses, no stiffness; thyroid- normal to palpation RESP: lungs clear to auscultation - no rales, no rhonchi, no wheezes CV: regular rates and rhythm, normal S1 S2, no S3 or S4 and no murmur, no click or rub - ABDOMEN: soft, no tenderness, no hepatosplenomegaly, no masses, normal bowel sounds Diagnostic test results: Diagnostic Test Results: none ASSESSMENT/PLAN: 1. Atypical pneumonia Symptoms over 2 weeks; patient concerned about pneumonia, but no indication for antibiotic currently. However, Will begin symptomatic treatment, and fill prescription if not better in next 3 days. Patient Instructions Saline spray (nonmedicated salt water) in small squirt bottles can be used every hour or two during the day, as can humidifiers during the night. Steam showers can help keep mucous loose. For adults and kids over 6, expectorants (like Mucinex or Robitussin) may help, as can using cough supressants (like the DM in Mucinex DM and Robitussin DM). Might benefit from antihistamines like Zyrtec (cetirizine) for relief of congestion; the dose is usually 10 mg for adults. May fill prescription for azithromycin if symptoms not improving. Alexy So MD Internal Medicine and Pediatrics - azithromycin (ZITHROMAX) 250 MG tablet; Take 2 tablets (500 mg) by mouth daily for 1 day, THEN 1 tablet (250 mg) daily for 4 days. Dispense: 6 tablet; Refill: 0 See Patient Instructions Alexy So MD [facility] documented in this encounter Plan of Treatment Upcoming Encounters Date Type Specialty Care Team Description 05/19/2022 Office Visit ENT Dima Hidalgo M D [address] [facility] [address] [place], [place] [address] (Wo rk) 08/02/2022 Office Visit Neurology Yair Campos MD [address] [facility] [place] [address] (Wo rk) documented as of this encounter Visit Diagnoses Diagnosis Atypical pneumonia - Primary Pneumonia, organism unspecified documented in this encounter Additional Health Concerns Assessment Noted Time PHQ-9 Depression Total Score: 4 08/24/2018 11:10 AM CS T documented as of this encounter Care Teams Dandy Operator Relationship Specialty Start Date End Date Krystin Christie PCP - General Nurse Practitioner 12/15/17 09/08/19 SAURABH Engel SPA THERAPIST [address] [facility] [place] [address] Tali Vilchis MD INTERNAL MEDICINE - 04/10/15 MD ENDOCRINOLOGY, DIABETES [address] [facility] METABOLISM [address] [place], [place] [id number] Anat Fuller MD Internal Medicine 04/10/1509/16 MD Renee [address] [facility] [address] [place], [place] [id number] Janny Hutton Physician Associate Professor Of Criminal Justice Physician Associate Professor Of Criminal Justice 06/30/15 09/17/19 CARLA Mckeon [address] [facility] [address] [place], [place] [id number] Florecita Bryan, MIKE Lead Wilderness Guide 08/17/18 10/24/18 Krystin Christie Assigned PCP 08/26/18 01/28/21 SAURABH Engel SPA THERAPIST [address] [place] [address] documented as of this encounter
--- OUTSIDE RECORDS SUMMARY | 2022-05-09 11:02 | XMS_ITS | Encounter Summary ---
:1955 Author Organization [place] Address [facility]0 [facility] [place] [address] Care Team Providers Name Role Phone Tali Vilchis MD Unavailable Anat Fuller MD Unavailable [phone] Janny Hutton PA-C Unavailable [phone] Krystin Christie APRN, CNP Primary Care Provider [phone] Florecita Bryan RN Unavailable Krystin Christie APRN, CNP Unavailable [phone] Reason for Referral Consultation - Closed Specialty Diagnoses / Procedures Referred By Contact Refer red To Contact Diagnoses Generalized muscle weakness Krystin Christie [facility] SAURABH GILL [address] [place] [address] [address] [place] [place] [address] [place] [address] Phone: [phone] Referral ID Status Reason Start Date Expiration Date Visits Requ ested Visits Authorized [id number] Closed 09/20/2018 09/20/2019 1 1 AL MEDIA INTERN Reason for Visit Reason Comments Hospital F/U Encounter Details Date Type Department Care Team Description 09/20/2018 Office Visit [facility] Krystin Christie muscle weakness (Primary Dx); Clinic Lola Engel APRN Mild persistent asthma with acute exacerbation; [address] 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 Type 2 diabetes mellitus without complic ation, without long-term current use of insulin (H); [address] [facility] Subclinical hypothyroidism; [address] [facility] Morbid obesity, unspecified obesity type (H); [place] [address] [place] [address] VILLAREAL (nonalcoholic steatohepatitis); [phone] jaime (Work) Social History Tobacco Use Types Packs/Day Years Used Date Smoking Tobacco: Never Smokeless Tobacco: Never Alcohol Use Standard Drinks/Week Comments No 0 (1 standard drink = 0.6 oz pure alcoho l) Sex Assigned at Date Recorded Female 08/17/2018 10:39 PM SOCIAL MEDIA INTERN documented as of this encounter Last Filed Vital Signs Vital Sign Reading Time Taken Comments Blood Pressure 108/62 09/20/2018 2:05 PM SOCIAL MEDIA INTERN Pulse 84 09/20/2018 2:05 PM SOCIAL MEDIA INTERN Temperature 36.8 ??C (98.2 ??F) 09/20/2018 2:05 PM SOCIAL MEDIA INTERN Respiratory Rate - - Oxygen Saturation 96% 09/20/2018 2:05 PM SOCIAL MEDIA INTERN Inhaled Oxygen Concentration - - Weight 85.7 kg (188 lb 14.4 oz) 09/20/2018 2:05 PM SOCIAL MEDIA INTERN Height - - Body Mass Index 33.46 09/09/2018 10:44 AM SOCIAL MEDIA INTERN documented in this encounter Patient Instructions Patient InstructionsMolitorKrystin APRN CNP - 09/20/2018 2:00 PM SOCIAL MEDIA INTERN -Follow up with neurology [facility] [place] -Add pioglitazone once daily for diabetes. Occasionally this can cause ankle swelling -Follow up with gastroenterology -Recheck TSH round 10/15 -Office visit with lab visit beforehand around 12/21. AL MEDIA INTERN documented in this encounter Progress Notes Krystin Christie APRN CNP - 09/20/2018 2:00 PM CST SUBJECTIVE: Becki Ridley is a 63 year old female who presents to clinic today for the following health issues: Patient just finished appointment with MTM. Patient declines flu vaccine today. Hospital Follow-up Visit: Hospital/Longterm/IP Rehab Facility: [facility] Date of Admission: 09/09/18 Date of Discharge: 09/10/18 Reason(s) for Admission: generalized weakness, SOB, hypothyroidism, diabetes, asthma, steatohepatitis Problems taking medications regularly: None Medication changes since discharge: None Problems adhering to non-medication therapy: None Summary of hospitalization: [facility] discharge summary reviewed Diagnostic Tests/Treatments reviewed. Follow up needed: pulm, neuro, GI Other Healthcare Providers Involved in Patient???s Care: None Update since discharge: fluctuating course. Post Discharge Medication Reconciliation: discharge medications reconciled, continue medications without change. Plan of care communicated with patient Coding guidelines for this visit: Type of Medical Decision Making Wjzi-jn-Hbpg Visit within 7 Days of discharge Exex-cx-Eexz Visit within 14 days of discharge Moderate Complexity [id number] High Complexity [id number] First noticed the weakness spells during recent upper respiratory illnesses. During the first hospitalization remembers having drooping eyelids. Feels that the weakness and shortness of breath have been progressive. Feels that, in retrospect, has had this on and off for years. Feels like it is hard tobreathe, like there is a tight band over her lower chest. ROS: const/neuro/resp/cvheent/gi otherwise negative OBJECTIVE: BP 108/62 (BP Location: Right arm, Cuff Size: Adult Large) Pulse 84 Temp 98.2 ??F (36.8 ??C) (Tympanic) Wt 85.7 kg (188 lb 14.4 oz) SpO2 96% BMI 33.46 kg/m?? CONSTITUTIONAL: Alert, well-nourished, well-groomed, NAD RESP: Lungs CTA. No wheeze, rhonchi, rales. CV: HRRR S1 S2 No MRG. No peripheral edema GI: Abdomen flat. BS x 4. No TTP. No HSM or masses. No CVAT NEURO: 4/5 muscle weakness upper and lower. No proptosis. ASSESSMENT/PLAN: (M62.81) Generalized muscle weakness (primary encounter diagnosis) Comment: Patient here for f/u on her intermittent muscle weakness. Feels her breathing muscles are weak. Her PFTs did not show any restrictive defect this time, although reportedly she did have some restriction seen on PFTs in the past. States she saw a movie theater manager recently who thought she may have m yasthenia. Her electrolytes, etc have been WITHIN NORMAL LIMITS. She continues to try to increase her physical activity. Plan: -Myasthenia labs ordered -Referred to neurology. -Will continue to monitor and may need further workup. (J45.31) Mild persistent asthma with acute exacerbation Comment: Fair control. Normal recent spirometry. Recently pulmonology. Records unavailable but he did not think she had any restrictive component at this time and thought her breathing issues were possibly related to myasthenia. Plan: -Continue Budesonide nebs. (E11.9) Type 2 diabetes mellitus without complication, without long-term current use of insulin (H) Comment: Improving control Plan: metFORMIN (GLUCOPHAGE-XR) 500 MG 24 hr tablet -Continue Metformin -Start Actos. Reviewed r/b/se -Recheck 3 months. (E03.9) Subclinical hypothyroidism Comment: Will start on levothyroxine Plan: levothyroxine (SYNTHROID/LEVOTHROID) 25 MCG tablet (E66.01) Morbid obesity, unspecified obesity type (H) Comment: In the future may send to weight management. Plan: metFORMIN (GLUCOPHAGE-XR) 500 MG 24 hr tablet (K75.81) VILLAREAL (nonalcoholic steatohepatitis) Comment: Following with DIANA Mccall. documented in this encounter Plan of Treatment Upcoming Encounters Date Type Specialty Care Team Description 05/19/2022 Office Visit ENT Dima Hidalgo M D [address] [facility] [address] [place], [place] [address] (Sarah pino) 08/02/2022 Office Visit Neurology Yair Campos MD [address] [place] [id number] (Sarah pino) Scheduled Referrals Name Type Priority Associated Diagnoses Order S chedule NEUROLOGY ADULT Referral Routine Generalized muscle Ordere d: 09/20/2018 REFERRAL weakness documented as of this encounter Procedures Procedure Name Priority Date/Time Associated Comments Diagnosis MUSK ANTIBODY Routine 09/20/2018 2:48 PM Generalized muscle Re sults for this SOCIAL MEDIA INTERN weakness procedure are i n the results section. STRIATED MUSCLE Routine 09/20/2018 2:48 PM Generalized muscle Results for this ANTIBODY IGG SOCIAL MEDIA INTERN weakness procedure are i n the results section. ACETYLCHOLINE RECEPTOR Routine 09/20/2018 2:48 PM Generalized muscle Results for this BLOCKING SKINNY SOCIAL MEDIA INTERN weakness procedure are i n the results section. ACETYLCHOLINE RECEPTOR Routine 09/20/2018 2:48 PM Generalized muscle Results for this BINDING SOCIAL MEDIA INTERN weakness procedure are i n the results section. ACETYLCHOLINE Routine 09/20/2018 2:48 PM Generalized muscle Re sults for this MODULATING ANTIBODY SOCIAL MEDIA INTERN weakness procedur e are in the results section. documented in this encounter Results MuSK Antibody (09/20/2018 2:48 PM SOCIAL MEDIA INTERN) athologist Signature MuSK Antibody 0.00 0.00 - 0.02 09/27/2018 [place] nmol/L 6:55 PM [facility] Comment: (Note) A negative result does not exclude the d iagnosis of autoimmune myasthenia gravis. Testing fo r acetylcholine receptor binding and modulating antibodi es, and striational antibody should be considered. ADDITIONAL INFORMATIO N This test was developed using an analyte specific reagent. Its performance characteristics were det ermined by [facility] in a manner consistent with CLIA requirements. This test has not been cleared or approved by the U.S. Food and Drug Administration. Test Performed by: [address] [address] Specimen Anatomical Collection Method Collection Time Receive d Time (Source) Location / / Volume Laterality Blood specimen 09/20/2018 2:48 PM 019 2:53 (specimen) SOCIAL MEDIA INTERN PM SOCIAL MEDIA INTERN Krystin Christie APRN [facility] - IMMUNOLOGY ORDERA BLES Performing Organization Address City/State/ZIP Code Phon e Number [facility] [address] [place] [address] ACETYLCHOLINE RECEPTOR BLOCKING SKINNY (09/20/2018 2:48 PM SOCIAL MEDIA INTERN) P athologist Signature AcetChol Block 11 0 - 26 % 09/24/2018 [place] Skinny 1:51 PM [facility] Comment: (Note) INTERPRETIVE INFORMATION: Acetylcholine Blocking Ab Negative ............ ??0-26 percent bl ocking Indeterminate ....... 27-41 percent blo cking Positive ............ 42 percent or gre ater blocking Approximately 85-90 percent of patients with myasthenia gravis (MG) express antibodies to the ac etylcholine receptor (AChR), which can be divided in to binding, blocking, and modulating antibodies. Bin ding antibody can activate complement and lead to loss of AChR. Blocking antibody may impair binding of acetylcho line to the receptor, leading to poor muscle contrac tion. Modulating antibody causes receptor endocytosis res ulting in loss of AChR expression, which correlates most c losely with clinical severity of disease. Approximat renetta 10-15 percent of individuals with confirmed myasthenia gravis have no measurable binding, blocking, or modulat ing antibodies. Test developed and characteristics deter mined by [facility]. See Compliance Statement B : Molecular Imaging/CS Performed by [facility], [address] [place] [id number] www.[facility], Asaf Tyler MD, Lab. Director Specimen Anatomical Collection Method Collection Time Receive d Time (Source) Location / / Volume Laterality Blood specimen 09/20/2018 2:48 PM 019 2:53 (specimen) SOCIAL MEDIA INTERN PM SOCIAL MEDIA INTERN Krystin Christie APRN [facility] - BLOOD ORDERABLES Performing Organization Address City/State/ZIP Code Phon e Number [facility] [address] [place] [address] ACETYLCHOLINE MODULATING ANTIBODY (09/20/2018 2:48 PM SOCIAL MEDIA INTERN) athologist Signature AcetChol Modul 0 <=45 % 09/24/2018 [place] Skinny 12:42 PM [facility] Comment: (Note) INTERPRETIVE INFORMATION: Acetylcholine Modulating Ab Negative .......... ??0-45 percent modu lating Positive .......... ??46 percent or gre ater modulating Approximately 85-90 percent of patients with myasthenia gravis (MG) express antibodies to the ac etylcholine receptor (AChR), which can be divided in to binding, blocking, and modulating antibodies. Bin ding antibody can activate complement and lead to loss of AChR. Blocking antibody may impair binding of acetylcho line to the receptor, leading to poor muscle contrac tion. Modulating antibody causes receptor endocytosis res ulting in loss of AChR expression, which correlates most c losely with clinical severity of disease. Approximat renetta 10-15 percent of individuals with confirmed myasthenia gravis have no measurable binding, blocking, or modulat ing antibodies. Test developed and characteristics deter mined by [facility]. See Compliance Statement B : Molecular Imaging/CS Performed by [facility], [address] [place] [address] www.[facility], Asaf Tyler MD, Lab. Director Specimen Anatomical Collection Method Collection Time Receive d Time (Source) Location / / Volume Laterality Blood specimen 09/20/2018 2:48 PM 019 2:53 (specimen) SOCIAL MEDIA INTERN PM SOCIAL MEDIA INTERN Krystin Christie APRN [facility] - BLOOD ORDERABLES Performing Organization Address City/State/ZIP Code Phon e Number [address] [address] STRIATED MUSCLE ANTIBODY IGG (09/20/2018 2:48 PM SOCIAL MEDIA INTERN) P athologist Signature Striated Muscle <1:40 <1:40 09/23/2018 [place] Antibody IgG 5:55 PM T [facility] Comment: (Note) Striated Muscle Antibodies, IgG are not detected. No further testing will be performed. INTERPRETIVE DATA: ??Striated Muscle Ant ibodies, IgG Screen In the presence of acetylcholine recepto r (AChR) antibody, striated muscle antibodies, which bind i n a cross-striational pattern to skeletal an d heart muscle tissue sections, are associated with lat e-onset myasthenia gravis (MG). Striated muscle antibodies recognize epitopes on three major muscle proteins, includin g: titin, ryanodine receptor (RyR) and Kv1.4 (an alpha subun it of voltage-gated potassium channel [VGKC]). Isolated case s of striated muscle antibodies may be seen in patient s with certain autoimmune diseases, rheumatic fever, my ocardial infarction, and following some cardiotom y procedures. Test developed and characteristics deter mined by [facility]. See Compliance Statement A : Molecular Imaging/5th Finger Performed by [facility], [address] [facility] [place] [address] www.[facility], Asaf Tyler MD, Lab. Director Specimen Anatomical Collection Method Collection Time Receive d Time (Source) Location / / Volume Laterality Blood specimen 09/20/2018 2:48 PM 019 2:53 (specimen) SOCIAL MEDIA INTERN PM SOCIAL MEDIA INTERN Krystin Christie PROPERTY ADMINISTRATOR [facility] - BLOOD ORDERABLES Performing Organization Address City/State/ZIP Code Phon e Number [address] [address] ACETYLCHOLINE RECEPTOR BINDING (09/20/2018 2:48 PM SOCIAL MEDIA INTERN) athologist Signature AcetChol 0.0 0.0 - 0.4 09/22/2018 [place] Binding Skinny nmol/L 4:41 PM SOCIAL MEDIA INTERN [facility] Comment: (Note) INTERPRETIVE INFORMATION: Acetylcholine Binding Ab Negative ....... 0.0 - 0.4 nmol/L Positive ....... 0.5 nmol/L or greater Approximately 85-90 percent of patients with myasthenia gravis (MG) express antibodies to the ac etylcholine receptor (AChR), which can be divided in to binding, blocking, and modulating antibodies. Bin ding antibody can activate complement and lead to loss of AChR. Blocking antibody may impair binding of acetylcho line to the receptor, leading to poor muscle contrac tion. Modulating antibody causes receptor endocytosis res ulting in loss of AChR expression, which correlates most c losely with clinical severity of disease. Approximat renetta 10-15 percent of individuals with confirmed myasthenia gravis have no measurable binding, blocking, or modulat ing antibodies. Test developed and characteristics deter mined by [facility]. See Compliance Statement B : Molecular Imaging/CS Performed by [facility], [address] [place] [address] [phone] www.[facility], Asaf Tyler MD, Lab. Director Specimen Anatomical Collection Method Collection Time Receive d Time (Source) Location / / Volume Laterality Blood specimen 09/20/2018 2:48 PM 019 2:53 (specimen) SOCIAL MEDIA INTERN PM SOCIAL MEDIA INTERN Krystin Christie APRN [facility] - BLOOD ORDERABLES Performing Organization Address City/State/ZIP Code Phon e Number [facility] [address] [place] [address] [place] [address] documented in this encounter Visit Diagnoses Diagnosis Generalized muscle weakness - Primary Muscle weakness (generalized) Mild persistent asthma with acute exacer bation Unspecified asthma, with exacerbation Type 2 diabetes mellitus without complic ation, without long-term current use of insulin (H) Subclinical hypothyroidism Other specified acquired hypothyroidism Morbid obesity, unspecified obesity type (H) VILLAREAL (nonalcoholic steatohepatitis) Other chronic nonalcoholic liver disease Advance care planning Other specified counseling documented in this encounter Additional Health Concerns Assessment Noted Time PHQ-9 Depression Total Score: 4 08/24/2018 11:10 AM CS T documented as of this encounter Care Teams Bandoleer Packer Relationship Specialty Start Date End Date Krystin Christie PCP - General Nurse Practitioner 12/15/17 09/08/19 SAURABH Engel MACHINE DEBUR[facility]ER [address] [facility] [place] [address] Tali Vilchis MD INTERNAL MEDICINE - 04/10/15 ENDOCRINOLOGY, DIABETES [address] [facility] & METABOLISM [address] [place], [place] [address] Anat Fuller MD Internal Medicine 04/10/1509/16 MD Renee [address] [facility] [address] [place], [place] [address] Janny Hutton Physician Sand [employer] Gravel Plant Operator Physician [employer] Plant Operator 06/30/15 09/17/19 CARLA Mckeon [address] [facility] [address] [place], [place] [address] Florecita Bryan RN Lead Mineralogy Professor 08/17/18 10/24/18 Krystin Christie Assigned PCP 08/26/18 01/28/21 SAURABH Engel MACHINE DEBURRER [address] [facility] [address] [place], [place] [id number] documented as of this encounter
--- OUTSIDE RECORDS SUMMARY | 2022-05-09 11:02 | XMS_ITS | Encounter Summary ---
:1955 Author Organization [place] Address [facility] [place] [address] Care Team Providers Name Role Phone Tali Vilchis MD Unavailable Anat Fuller MD Unavailable [phone] Janny Hutton PA-C Unavailable [phone] Krystin Christie APRN [employer] Primary Care Provider [phone] Florecita Bryan RN Unavailable Krystin Christie APRN [employer] Unavailable [phone] Reason for Visit Reason Onset Date Comments URI 10/17/2018 Encounter Details Date Type Department Care Team Description 10/17/2018 Telephone [facility] Krystin hCristie, HALINA [place] APRN [employer] [address] [place] [address] [place] [phone] Social History Tobacco Use Types Packs/Day Years Used Date Smoking Tobacco: Never Smokeless Tobacco: Never Alcohol Use Standard Drinks/Week Comments No 0 (1 standard drink = 0.6 oz pure alcoho l) Sex Assigned at Date Recorded Female 08/17/2018 10:39 PM [employer] documented as of this encounter Miscellaneous Notes Telephone Encounter - Renetta Spann RN - 10/18/2018 9:34 AM CDT Patient has a current URI with cough productive of green mucous. Harsh cough. Sore throat daily. Some post-nasal discharge. Facial pressure. Sore neck glands. Has felt hot and cold' Denies shortness of breath or wheezing. Symptoms began two weeks ago. Appointment advised and scheduled this afternoon. No further questions. Will call back if any other questions or concerns. Sujey Spann RN Telephone Encounter - Francesca Boyer - 10/17/2018 3:43 PM CDT Reason for call: Symptom Symptom or request: URI Duration (how long have symptoms been present): 1 week Have you been treated for this before? Yes Additional comments: Would like to talk to a nurse before making an appointment. Phone number to reach patient: Home number on file [phone] (home) Best Time: any Can we leave a detailed message on this number? YES documented in this encounter Plan of Treatment Upcoming Encounters Date Type Specialty Care Team Description 05/19/2022 Office Visit ENT Dima Hidalgo M D [address] [place], [place] [address] (Sarah pino) 08/02/2022 Office Visit Neurology Yair Campos MD [address] [place], [place] [address] (Sarah pino) documented as of this encounter Visit Diagnoses Not on filedocumented in this encounter Additional Health Concerns Assessment Noted Time PHQ-9 Depression Total Score: 4 08/24/2018 11:10 AM CS T documented as of this encounter Care Teams Hospice Plan Administrator Relationship Specialty Start Date End Date Krystin Christie PCP - General Nurse Practitioner 12/15/17 09/08/19 SAURABH Engel [employer] [address] [facility] [place] [id number] Tali Vilchis MD INTERNAL MEDICINE - 04/10/15 ENDOCRINOLOGY, DIABETES [address] [facility] [address] MET[address]OL[address] [place], [place] [address] Anat Fuller MD Internal Medicine 04/10/1509/16 MD Renee [address] [facility] [address] [place], [place] [address] Janny Hutton Physician Vehicle Detailer Physician Vehicle Detailer 06/30/15 09/17/19 CARLA Mckeon 420 [facility] [address] [place], [place] [address] Florecita Bryan, RN Lead Roofing Layer 08/17/18 10/24/18 Krystin Christie Assigned PCP 08/26/18 01/28/21 SAURABH Engel [employer] [address] [facility] [place] [address] documented as of this encounter
--- OUTSIDE RECORDS SUMMARY | 2022-05-09 11:02 | XMS_ITS | Encounter Summary ---
:1955 Author Organization [place] Address [address] [facility] [place] [address] Care Team Providers Name Role Phone Tali Vilchis MD Unavailable Anat Fuller MD Unavailable [phone] Janny Hutton PA-C Unavailable [phone] PratikKrystin newby APRN AUTOMATED CUTTING MACHINE OPERATOR Primary Care Provider [phone] Krystin Christie APRN AUTOMATED CUTTING MACHINE OPERATOR Unavailable [phone] Reason for Visit Reason Comments Ingestion Encounter Details Date Type Department Care Team Description 11/07/2018 Emergency [facility] Demarco Paris, Lidya rse effect of oral [facility] hypoglycemic drug, [place] [facility] initial encounter [address] [place] [address] [phone] Social History Tobacco Use Types Packs/Day Years Used Date Smoking Tobacco: Never Smokeless Tobacco: Never Alcohol Use Standard Drinks/Week Comments No 0 (1 standard drink = 0.6 oz pure alcoho l) Sex Assigned at Date Recorded Female 08/17/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 documented as of this encounter Last Filed Vital Signs Vital Sign Reading Time Taken Comments Blood Pressure - - Pulse - - Temperature - - Respiratory Rate - - Oxygen Saturation - - Inhaled Oxygen Concentration - - Weight 86.2 kg (190 lb) 11/06/2018 10:51 PM CDT Height 160 cm (5' 3) 11/06/2018 10:51 PM CDT Body Mass Index 33.66 11/06/2018 10:51 PM CDT documented in this encounter Medications at [...] hours as needed (90 Base) MCG/ACT inhaler azithromycin Take 2 tablets (500 6 tablet 0 10/18/201801/2019 (ZITHROMAX) 250 MG mg) by mouth daily tabletIndications: for 1 day, THEN 1 Atypical pneumonia tablet (250 mg) daily for 4 days. blood glucose TEST TWICE DAILY 200 strip 1 11/05/201811/19 (ACCU-CHEK ANNIE PLUS) test stripIndications: Type 2 diabetes mellitus without [...] documented as of this encounter ED Notes Lauren Estevez - 11/07/2018 2:10 AM CDT Pt feeling weak, and light headed. Will be redrawn a blood glucose and updating MD Demarco Paris MD - 11/07/2018 1:41 AM CDT EMERGENCY DEPARTMENT ENCOUnter NAME: Becki Ridley AGE: 63 y.o. female DATE OF : 1955 EVALUATION DATE & TIME: 11/07/2018 1:35 AM PCP: Aleks Lopez MD ED PROVIDER: Demarco Paris M.D. Chief Complaint Patient presents with ??? Ingestion FINAL IMPRESSION: 1. Adverse effect of oral hypoglycemic drug, initial encounter ED COURSE & MEDICAL DECISION MAKIN:41 AM I initially evaluated the patient. 3:37 AM I rechecked and updated the patient. We discussed the plan for discharge and the patient is agreeable. Reviewed supportive cares, symptomatic treatment, outpatient follow up, and reasons to return to the Emergency Department. Patient to be discharged by ED RN. Pertinent Labs & Imaging studies reviewed. (See chart for details) 63 y.o. female presents to the Emergency Department for evaluation of overdose of her diabetes medications. Actually took a second dose of her glipizide and metformin tonight. With feeling lightheaded.Lowest she got was 77 at home. Patient was given food here. Did eventually have her sugars come up to the 130s to 150s. Discussed with poison control. Half-life 8 to 12 hours. Patient was monitored until approximately 12 hours after ingestion. Blood sugar is now coming back up. No other symptoms. Willdischarge her home. She will return for worsening symptoms. I do not think admission is indicated atthis time. Patient states understanding. At the conclusion of the encounter I discussed the results of all of the tests and the disposition. The questions were answered. The patient or family acknowledged understanding and was agreeable with the care plan. MEDICATIONS GIVEN IN THE EMERGENCY: Medications sodium chloride flush 3 mL (NS) (has no administration in time range) NEW PRESCRIPTIONS STARTED AT TODAY'S ER VISIT There are no discharge medications for this patient. HPI Patient information was obtained from: Patient Use of Intrepreter: N/A Becki Ridley is a 63 y.o. female with a relevant PMHx of DM II, diabetic gastroparesis, non-alcoholic fatty liver, morbid obesity, and asthma, who presents for evaluation of ingestion. Patient reports accidentally taking double her dose of XR Glucophage and XR glipizide today. She took 2000 mg of Glucophage and 500 of glipizide this morning which is her daily dose, however at 4 PM this afternoon she took the same doses as she could not remember if she took it or not. She has been more hungry than usual since then, and realized she took double the dose when her blood sugar was 72 prior to going to bed. The patient has nausea but no vomiting. She states she feels foggy in the head, but denies any other abnormal symptoms at this time. REVIEW OF SYSTEMS Review of Systems Constitutional: Positive for appetite change (increased). Gastrointestinal: Positive for nausea. Negative for vomiting. All other systems reviewed and are negative. PAST MEDICAL HISTORY: DM II Diabetic gastroparesis Non-alcoholic fatty liver Asthma PAST SURGICAL HISTORY: No past surgical history on file. CURRENT MEDICATIONS: No current facility-administered medications on file prior to encounter. No current outpatient medications on file prior to encounter. ALLERGIES: Allergies Allergen Reactions ??? Ciprofloxacin Shortness Of Breath ??? Codeine Shortness Of Breath ??? Darvocet A500 [Propoxyphene N-Acetaminophen] Shortness Of Breath ??? Vicodin [Hydrocodone-Acetaminophen] Shortness Of Breath FAMILY HISTORY: No family history on file. SOCIAL HISTORY: Social History Socioeconomic History ??? Marital status: Patient Declined Spouse name: Not on file ??? Number [...] on file Tobacco Use ??? Smoking status: Not on file Substance and Sexual Activity ??? Alcohol use: Not on file ??? Drug use: Not on file ??? Sexual activity: Not on file Lifestyle ??? Physical activity: Days per week: Not on file Minutes per session: Not on file ??? Stress: Not on file Relationships ??? Social connections: Talks on phone: Not on file Gets together: Not on file Attends mormonism service: Not on file Active member of club or organization: Not on file Attends meetings of clubs or organizations: Not on file Relationship status: Not on file ??? Intimate partner violence: Fear of current or ex partner: Not on file Emotionally abused: Not on file Physically abused: Not on file Forced sexual activity: Not on file Other Topics Concern ??? Not on file Social History Narrative ??? Not on file VITALS: Patient Vitals for the past 24 hrs: BP Temp Temp src Pulse Resp SpO2 Height Weight 11/07/18 0230 -- -- -- 83 -- 96 % -- -- 11/07/18 0200 -- -- -- 88 -- 96 % -- -- 11/07/18 0141 -- 97.8 ??F (36.6 ??C) Oral -- -- -- -- -- 11/07/18 0139 132/75 -- -- 96 18 96 % -- -- 11/06/18 2251 143/71 98.1 ??F (36.7 ??C) Oral (!) 101 18 96 % 5' 3 (1.6 m) 190 lb (86.2 kg) PHYSICAL EXAM Constitutional: Well developed, well nourished, no acute distress EYES: Conjunctivae clear HENT: Atraumatic, normocephalic Bilateral external ears normal, nose normal, oropharynx moist. Neck-supple Respiratory: No respiratory distress, normal breath sounds, no rales, no wheezing, no cough, no stridor Cardiovascular: Normal rate, normal rhythm, no murmurs, capillary refill normal. No chest wall tenderness GI: Soft, nondistended, nontender, no palpable masses, no rebound, no guarding : No CVA tenderness. Musculoskeletal: No edema. No cyanosis. Range of motion major extremities intact. No tenderness to palpation or major deformities noted. Integument: Warm, Dry, No erythema, No rash. Neurologic: Alert & oriented, no focal deficits noted, ambulatory Psych: Affect normal, Mood normal. LAB: All pertinent labs reviewed and interpreted. Results for orders placed or performed during the hospital encounter of 11/07/18 Basic Metabolic Panel Result Value Ref Range Sodium 138 136 - 145 mmol/L Potassium 4.0 3.5 - 5.0 mmol/L Chloride 105 98 - 107 mmol/L CO2 23 22 - 31 mmol/L Anion Gap, Calculation 10 5 - 18 mmol/L Glucose 129 (H) 70 - 125 mg/dL Calcium 9.5 8.5 - 10.5 mg/dL BUN 12 8 - 22 mg/dL Creatinine 0.76 0.60 - 1.10 mg/dL GFR MDRD Af Amer >60 >60 mL/min/1.73m2 GFR MDRD Non Af Amer >60 >60 mL/min/1.73m2 POCT Glucose Result Value Ref Range Glucose 146 (H) 70 - 139 mg/dL POCT Glucose Result Value Ref Range Glucose 149 (H) 70 - 139 mg/dL POCT Glucose Result Value Ref Range Glucose 133 70 - 139 mg/dL POCT Glucose Result Value Ref Range Glucose 114 70 - 139 mg/dL POCT Glucose Result Value Ref Range Glucose 141 (H) 70 - 139 mg/dL POCT Glucose Result Value Ref Range Glucose 155 (H) 70 - 139 mg/dL I, Kwadwo Castañeda, am serving as a scribe to document services personally performed by Dmearco Paris based on my observation and the provider's statements to me. I, Demarco Paris MD attest that Puja is acting in a scribe capacity, has observed my performance of the services and has docum ented them in accordance with my direction. Demarco Paris M.D. Emergency Medicine [facility] EMERGENCY DEPARTMENT [address] [address] Dept: [phone] Loc: [phone] Demarco Paris MD 11/07/18 0509 Lauren Estevez - 11/07/2018 1:38 AM CDT Pt is eating a box lunch at this time. Will recheck blood sugar around 0215 Dorita Lepe - 11/07/2018 1:30 AM CDT Pt given meal tray Dorita Lepe - 11/06/2018 10:52 PM CDT Pt took Glucophage 1000mg and 5mg glipizide This morning. PT thought she had not taken meds today soshe took 2nd dose of both glucophage and glipizide at 1600. Concerned for OD. 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 BGL 147in triage. C/o nausea documented in this encounter Plan of Treatment Upcoming Encounters Date Type Specialty Care Team Description 05/19/2022 Office Visit ENT Diam Hidalgo M D [address] [facility] [address] [place], [place] [address] (Wo rk) 08/02/2022 Office Visit Neurology Yair Campos MD [address] [place] [address] (Wo rk) documented as of this encounter Procedures Procedure Name Priority Date/Time Associated Diagnosis Comme nts GLUCOSE BY METER Routine 11/07/2018 3:20 AM Resul ts for this POCT CDT procedure are i n the results section. BASIC METABOLIC STAT 11/07/2018 2:12 AM Result s for this PANEL CDT procedure are i n the results section. GLUCOSE BY METER Routine 11/07/2018 2:12 AM Resul ts for this POCT CDT procedure are i n the results section. GLUCOSE BY METER Routine 11/07/2018 1:25 AM Resul ts for this POCT CDT procedure are i n the results section. GLUCOSE BY METER Routine 11/07/2018 12:50 AM Resu lts for this POCT CDT procedure are i n the results section. GLUCOSE BY METER Routine 11/06/2018 11:48 PM Resu lts for this POCT CDT procedure are i n the results section. GLUCOSE BY METER Routine 11/06/2018 10:49 PM Resu lts for this POCT CDT procedure are i n the results section. documented in this encounter Results (ABNORMAL) Glucose by meter POCT (11/07/2018 3:20 AM CDT) athologist Signature GLUCOSE BY 155 (H) 70 - 139 11/07/2018 [facility] POCT mg/dL 3:20 AM CDT HOSPITAL POCT RESULTS Specimen Anatomical Collection Method Collection Time Receive d Time (Source) Location / / Volume Laterality Blood specimen 11/07/2018 3:20 AM 019 3:32 (specimen) CDT AM CDT Demarco Paris MD LAB - ENTER/EDIT POCT Performing Organization Address City/State/ZIP Code Phon e Number [facility] POCT RESULTS [address] [employer] [facility] N [address] (ABNORMAL) Basic metabolic panel (11/07/2018 2:12 AM CDT) Analysis Performed At [facility] Time Signature Sodium 138 136 - 145 11/07/2018 [facility] mmol/L 2:30 AM [facility] Potassium 4.0 3.5 - 5.0 11/07/2018 [facility] mmol/L 2:30 AM [facility] Chloride 105 98 - 107 11/07/2018 [facility] mmol/L 2:30 AM [facility] Carbon Dioxide 23 22 - 31 11/07/2018 [facility] (CO2) mmol/L 2:30 AM [facility] Anion Gap 10 5 - 18 11/07/2018 [facility] mmol/L 2:30 AM [facility] Glucose 129 (H) 70 - 125 11/07/2018 [facility] mg/dL 2:30 AM [facility] Calcium 9.5 8.5 - 10.5 11/07/2018 [facility] mg/dL 2:30 AM [facility] Urea Nitrogen 12 8 - 22 11/07/2018 [facility] mg/dL 2:30 AM [facility] Creatinine 0.76 0.60 - 11/07/2018 [facility] 1.10 mg/dL 2:30 AM [facility] GFR Estimate If >60 >60 11/07/2018 [facility] Black mL/min/1.7 2:[address] LABORATORY GFR Estimate >60 >60 11/07/2018 [facility] mL/min/1.7 2:[address] LABORATORY Specimen Anatomical Collection Method Collection Time Receive d Time (Source) Location / / Volume Laterality Blood specimen STRUCTURE OF RIGHT VAD(CVC, PICC) / 11/07/2018 2:12 AM 11/07/2018 2:13 (specimen) UPPER LIMB / Unknown CDT AM CDT Unknown Narrative [facility] - 11/07/2018 2:30 AM CDT Fasting Glucose reference range is 70-99 mg/dL per [employer] (ADA) lalita arroyo. Demarco Paris MD LAB - BLOOD ORDERABLES Performing Organization Address City/State/ZIP Code Phon e Number [facility] [place] [address] [place] [facility] [address] [facility] [address] [place] [address] [facility] [address] [place] [address], [facility] ([facility]NORMAL[facility] Glucose by meter POCT (11/07/2018 2:12 AM CDT) P athologist Signature GLUCOSE BY 141 (H) 70 - 139 11/07/2018 [facility] POCT mg/dL 2:12 AM CDT HOSPITAL POCT RESULTS Specimen Anatomical Collection Method Collection Time Receive d Time (Source) Location / / Volume Laterality Blood specimen CAPILLARY BLOOD / 11/07/2018 2:12 AM 2:23 (specimen) Unknown CDT AM CDT Demarco Paris MD LAB - ENTER/EDIT POCT Performing Organization Address [facility]/ZIP Code Phon e Number [facility] PO[facility] RESULTS [address] [facility] [address] [address] Glucose by meter POCT (11/07/2018 1:25 AM CDT) P athologist Signature GLUCOSE BY 114 70 - 139 11/07/2018 [facility] POCT mg/dL 1:25 AM CDT HOSPITAL POCT RESULTS Specimen Anatomical Collection Method Collection Time Receive d Time (Source) Location / / Volume Laterality Blood specimen CAPILLARY BLOOD / 11/07/2018 1:25 AM 1:36 (specimen) Unknown CDT AM CDT Historical Provider LAB - ENTER/EDIT POCT Performing Organization Address City/[facility]/ZIP Code Phon e Number [facility] POCT RESULTS [address] [facility] [address] [address] Glucose by meter POCT (11/07/2018 12:50 AM CDT) P athologist Signature GLUCOSE BY 133 70 - 139 11/07/2018 [facility] POCT mg/dL 12:50 AM CDT HOSPITAL POCT RESULTS Specimen Anatomical Collection Method Collection Time Receive d Time (Source) Location / / Volume Laterality Blood specimen CAPILLARY BLOOD / 11/07/2018 12:50 /10/2018 1:00 (specimen) Unknown AM CDT AM CDT Historical Provider LAB - ENTER/EDIT POCT Performing Organization Address [facility]/ZIP Code Phon e Number [facility] POCT RESULTS [address] [place] [address] [address] (ABNORMAL) Glucose by meter POCT (11/06/2018 11:48 PM CDT) P athologist Signature GLUCOSE BY 149 (H) 70 - 139 11/06/2018 [facility] POCT mg/dL 11:48 PM CDT HOSPITAL POCT RESULTS Specimen Anatomical Collection Method Collection Time Receive d Time (Source) Location / / Volume Laterality Blood specimen CAPILLARY BLOOD / 11/06/2018 11:48 04/2 09/2018 (specimen) Unknown PM CDT 11:59 PM CDT Historical Provider LAB - ENTER/EDIT POCT Performing Organization Address [facility]/ZIP Code Phon e [facility] POCT RESULTS [address] [place] [address] [address] (ABNORMAL) Glucose by meter POCT (11/06/2018 10:49 PM CDT) P athologist Signature GLUCOSE BY 146 (H) 70 - 139 11/06/2018 [facility] POCT mg/dL 10:49 PM CDT HOSPITAL POCT RESULTS Specimen Anatomical Collection Method Collection Time Receive d Time (Source) Location / / Volume Laterality Blood specimen CAPILLARY BLOOD / 11/06/2018 10:49 10/16 (specimen) Unknown PM CDT 11:01 PM CDT Historical Provider LAB - ENTER/EDIT POCT Performing Organization Address City/[facility]/ZIP Code Phon e [facility] POCT RESULTS [address] [facility] [address] documented in this encounter Visit Diagnoses Diagnosis Adverse effect of oral hypoglycemic drug , initial encounter documented in this encounter Additional Health Concerns Assessment Noted Time PHQ-9 Depression Total Score: 4 08/24/2018 11:10 AM CS T documented as of this encounter Care Teams Skein Winding Operator Relationship Specialty Start Date End Date Krystin Christie PCP - General Nurse Practitioner 12/15/17 09/08/19 SAURABH Engel AUTOMATED CUTTING MACHINE OPERATOR [address] [address] Tali Vilchis MD INTERNAL MEDICINE - 04/10/15 ENDOCRINOLOGY, DIABETES [address] [facility] [place] [address] Anat Fuller MD Internal Medicine 04/10/1509/16 MD Renee [address] [facility] [address] [place] [address] Janny Hutton Physician Bi Solutions Architect Physician Bi Solutions Architect 06/30/15 09/17/19 CARLA Mckeon [address] [facility] [address] [place] [address] Krystin Christie Assigned PCP 08/26/18 01/28/21 SAURABH Engel AUTOMATED CUTTING MACHINE OPERATOR [address] [facility] [place] [address] documented as of this encounter
--- OUTSIDE RECORDS SUMMARY | 2022-05-09 11:02 | XMS_ITS | Encounter Summary ---
:1955 Author Organization [place] Address [address] [facility] [place] [address] Care Team Providers Name Role Phone Tali Vilchis MD Unavailable Anat Fuller MD Unavailable [phone] Janny Hutton PA-C Unavailable [phone] PratikKrystin APRN CUSTOMER RELATIONS CONSULTANT Primary Care Provider [phone] Florecita Bryan RN Unavailable PratikKrystin newby APRN CUSTOMER RELATIONS CONSULTANT Unavailable [phone] PratikKrystin newby APRN CUSTOMER RELATIONS CONSULTANT Unavailable [phone] Reason for Visit Reason Comments Annual Eye Exam Encounter Details Date Type Department Care Team Description 09/11[facility]2018 [facility] Lola Taylor, OD Type 2 diabetes mellitus without retinop athy (H); [address] Myopi a of both eyes with astigmatism; [facility] Bilateral incipient cataracts; [address] [place] [address] Dry eye [place] [address] [phone] Social History Tobacco Use Types Packs/Day Years Used Date Smoking Tobacco: Never Smokeless Tobacco: Never Alcohol Use Standard Drinks/Week Comments No 0 (1 standard drink = 0.6 oz pure alcoho l) Sex Assigned at Date Recorded Female 08/17/2018 10:39 PM 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 Patient Education Diabetes weakens the blood vessels all over the body, including the eyes. Damage to the blood vessels in the eyes can cause swelling or bleeding into part of the eye (called the retina). This is calleddiabetic retinopathy (XSN-dru-CL-puh-thee). If not treated, this disease can cause [...] smoking. 4. Have yearly dilated eye exams. There were no complications to your retina from diabetes Distance and reading prescription or bifocal Sudden change in vision is often caused by retinopathy or blood sugar change that affects the glasses prescription it can get better or worse it just depends DRY EYE TREATMENT I recommend using artificial [...] the washcloth will help retain the heat. [place] 3 fatty acid supplements taken 1-2x daily Recommend at least 2000mg omega 3 800 EPA 600 DHA Blink regularly Stay hydrated/ increase humidity Wear sunglasses This can cause the sharp pain or poking sensation Patient Education What Is Diabetic Retinopathy? Diabetic retinopathy is the leading cause of blindness in adults. It happens when diabetes harms blood vessels inside the eye. These weak vessels leak fluid into an area of the eye called the retina. Weak new vessels can break and bleed into the retina. Old vessels can leak and cause swelling. These vessels can damage areas of the retina, causing blurry, distorted vision. What causes diabetic retinopathy? Diabetes is the cause of this eye disease. Over time, diabetes makes blood vessels weaken all over the body, including in the eyes. Poor blood sugar control can make retinopathy worse. So can smoking, high cholesterol, or poorly controlled high blood pressure. can also cause retinopathy to worsen. Diabetic retinopathy happens more often in Hispanics and in Americans.?? What are the symptoms? You can have diabetic retinopathy without knowing it. Usually, there is no pain and no outward sign.Over time, you may notice gradual blurring or some vision loss. Some people have trouble seeing at night. or see spots or floaters. Symptoms may come and go. Early treatment and good control of risk factors may help prevent vision loss or blindness. What you can do Have your eyes examined regularly by an eyelet maker. Your healthcare provider will tell you when and how often you need these exams. You can also help control your diabetes through exercise, diet, and medicine, as instructed by your healthcare provider. These same steps may also help control diabetic retinopathy. Date Last Reviewed: 12/16/2015 ?? [id number] [employer] [address] [place] [address], [place] [address]. All rights reserved. This information is not intended as a substitute for professional medical care. Always follow your healthcare professional's instructions. CING ASSISTANT documented in this encounter Progress Notes Maranda Linares, OD - 09/11/2018 2:20 PM CST Chief Complaint Patient presents with ??? Annual Eye Exam Patient reports that mom had glaucoma, but it went away Has been running 126-150 Vision clearer up when glucose normalized Patient uses +1.50-+2.75 cheaters as needed Lab Results Component Value Date A1C 11.6 08/16/2018 A1C 9.7 09/28/2016 A1C 9.2 06/30/2015 A1C 9.0 07/04/2011 A1C 6.3 03/02/2011 Last Eye Exam: 3 years Dilated Previously: Yes What are you currently using to see? readers Distance Vision Acuity: Satisfied with vision Near Vision Acuity: Satisfied with vision while reading with readers Eye Comfort: good- every once in awhile patient reports quick sharp pain in the corner of each eye Do you use eye drops? 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 OBJECTIVE: See Ophthalmology exam ASSESSMENT: ICD-10-CM 1. Presbyopia H52.4 2. Myopia of both eyes with astigmatism H52.13 H52.203 3. Bilateral incipient cataracts H26.9 4. Dry eye H04.129 PLAN: Becki Ridley aware eye exam results will be sent to Krystin Christie. Maranda Linares OD CING ASSISTANT documented in this encounter Plan of Treatment Upcoming Encounters Date Type Specialty Care Team Description 05/19/2022 Office Visit ENT Dima Hidalgo M D [address] [facility] [place], [place] [address] (Wo rk) 08/02/2022 Office Visit Neurology Yair Campos MD [address] [facility] [place] [address] (Wo rk) documented as of this encounter Procedures Procedure Name Priority Date/Time Associated Diagnosis Comme nts EYE EXAM Routine 09/11/2018 3:28 PM Myopia of both eyes (SIMPLE-NONBILLABLE) SOURCING ASSISTANT with astigm atism Type 2 diabetes mellitus without retinopathy (H) HC REFRACTION Routine 09/11/2018 3:28 PM Myopia of both eyes SOURCING ASSISTANT with astigmatism Type 2 diabetes mellitus without retinopathy (H) documented in this encounter Visit Diagnoses Diagnosis Presbyopia - Primary Type 2 diabetes mellitus without retinop athy (H) Type II or unspecified type diabetes almita litus without mention of complication, not stated as uncontrolled Myopia of both eyes with astigmatism Bilateral incipient cataracts Unspecified cataract Dry eye documented in this encounter Additional Health Concerns Assessment Noted Time PHQ-9 Depression Total Score: 4 08/24/2018 11:10 AM CS T documented as of this encounter Care Teams Lepidopterist Relationship Specialty Start Date End Date Krystin Christie PCP - General Nurse Practitioner 12/15/17 09/08/19 SAURABH Engel CUSTOMER RELATIONS CONSULTANT [address] [facility] [place] [address] Krystin Christie PCP - Assigned PCP 08/26/18 09/18/18 SAURABH Engel CUSTOMER RELATIONS CONSULTANT [address] [facility] [place] [id number] Tali Vilchis MD INTERNAL MEDICINE - 04/10/15 ENDOCRINOLOGY, DIABETES [address] [place] [address] [place] [address] Anat Fuller MD Internal Medicine 04/10/1509/16 MD Renee [address] [facility] [address] [place], [place] [address] Janny Hutton Physician Proposal Lead Writer Physician Proposal Lead Writer 06/30/15 09/17/19 CARLA Mckeon [address] [facility] [address] [place], [place] [address] Florecita Bryan, MIKE Lead Bisque Finisher 08/17/18 10/24/18 Krystin Christie Assigned PCP 08/26/18 01/28/21 SAURABH Engel CUSTOMER RELATIONS CONSULTANT [address] [facility] [address] documented as of this encounter
--- OUTSIDE RECORDS SUMMARY | 2022-05-09 11:02 | XMS_ITS | Encounter Summary ---
:1955 Author Organization [place] Address [facility] [place] [address] Care Team Providers Name Role Phone Tali Vilchis MD Unavailable Anat Fuller MD Unavailable [phone] Janny Hutton PA-C Unavailable [phone] Krystin Christie APRN RESPIRATORY MEDICINE PHYSICIAN Primary Care Provider [phone] Florecita Bryan RN Unavailable Krystin Christie APRN RESPIRATORY MEDICINE PHYSICIAN Unavailable [phone] Encounter Details Date Type Department Care Team Description 10/15/[address] 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 documented as of this encounter Plan of Treatment Upcoming Encounters Date Type Specialty Care Team Description 05/19/2022 Office Visit ENT Dima Hidalgo M D [address] [place] [address] (Wo rk) 08/02/2022 Office Visit Neurology Yair Campos MD [address] [place] [address] (Wo rk) Pending Results Name Type Priority Associated Diagnoses Date/Ti me T4 free Lab Routine Subclinical hypothyroidism 0 10/15/2018 4:30 PM CDT documented as of this encounter Procedures Procedure Name Priority Date/Time Associated Diagnosis Comme nts TSH WITH FREE T4 Routine 10/15/2018 4:30 PM Subclinical Resul ts for this REFLEX CDT hypothyroidism procedure are in the results section. T4 FREE Routine 10/15/2018 4:30 PM Subclinical Results f or this CDT hypothyroidism procedure are in the results section. T4 FREE Routine 10/15/2018 4:30 PM Subclinical CDT hypothyroidism HEMOGLOBIN A1C Routine 10/15/2018 4:30 PM Type 2 diabetes Resu lts for this CDT mellitus with procedure are in hyperglycemia, without the r esults long-term current use sectio n. of insulin (H) documented in this encounter Results T4 free (10/15/2018 4:30 PM CDT) athologist Signature T4 Free 1.08 0.76 - 1.46 10/16/2018 [facility] ng/dL 3:07 PM CDT [facility] Specimen Anatomical Collection Method Collection Time Receive d Time (Source) Location / / Volume Laterality 10/15/2018 4:30 PM 9 4:35 CDT PM CDT Krystin Christie BREWMASTER RESPIRATORY MEDICINE PHYSICIAN LAB - BLOOD ORDERABLES Performing Organization Address City/State/ZIP Code Phon e Number [facility] [address] [place] [address] (ABNORMAL) Hemoglobin A1c (10/15/2018 4:30 PM CDT) athologist Signature Hemoglobin A1C 7.7 (H) 0 - 5.6 % 10/15/2018 [place] 4:50 PM CDT [facility] Comment: Normal <5.7% Prediabetes 5.7-6.4% ??Diab etes 6.5% or higher - adopted from ADA consensus guidelines. Specimen Anatomical Collection Method Collection Time Receive d Time (Source) Location / / Volume Laterality Blood specimen 10/15/2018 4:30 PM 019 4:35 (specimen) CDT PM CDT Krystin Christie APRN RESPIRATORY MEDICINE PHYSICIAN LAB - BLOOD ORDERABLES Performing Organization Address City/State/ZIP Code Phon e Number [facility] [address] [facility] [place] [address] (ABNORMAL) TSH with free T4 reflex (10/15/2018 4:30 PM CDT) P athologist Signature TSH 5.96 (H) 0.40 - 10/16/2018 [facility] 4.00 mU/L 2:49 PM CDT [facility] Specimen Anatomical Collection Method Collection Time Receive d Time (Source) Location / / Volume Laterality Blood specimen 10/15/2018 4:30 PM 019 4:35 (specimen) CDT PM CDT Krystin Christie APRN, CNP LAB - BLOOD ORDERABLES Performing Organization Address City/State/ZIP Code Phon e Number [facility] [address] [place] [address] documented in this encounter Visit Diagnoses Diagnosis Subclinical hypothyroidism Other specified acquired hypothyroidism Type 2 diabetes mellitus with hyperglyce sonai, without long-term current use of insulin (H) documented in this encounter Additional Health Concerns Assessment Noted Time PHQ-9 Depression Total Score: 4 08/24/2018 11:10 AM CS T documented as of this encounter Care Teams Retail Banking Manager Relationship Specialty Start Date End Date Krystin Christie PCP - General Nurse Practitioner 12/15/17 09/08/19 SAURABH Engel RESPIRATORY MEDICINE PHYSICIAN [address] [facility] [place] [address] Tali Vilchis MD INTERNAL MEDICINE - 04/10/15 ENDOCRINOLOGY, DIABETES [address] [facility] [address] [place], [place] [address] Anat Fuller MD Internal Medicine 04/10/1509/16 MD Renee [address] [facility] [address] [place], [place] [phone] Janny Hutton Physician Dust Operator Physician Dust Operator 06/30/15 09/17/19 CARLA Mckeon [address] [facility] [address] [place] [address] Florecita Bryan, RN Lead Food And Beverage Assistant Manager 08/17/18 10/24/18 Krystin Christie PCP 08/26/18 01/28/21 SAURABH Engel RESPIRATORY MEDICINE PHYSICIAN [address] [facility] [place] [address] documented as of this encounter
--- OUTSIDE RECORDS SUMMARY | 2022-05-09 11:02 | XMS_ITS | Encounter Summary ---
:1955 Author Organization [facility] Address [address] [place] [address] Care Team Providers Name Role Phone Tali Vilchis MD Unavailable Anat Fuller MD Unavailable [phone] Janny Hutton PA-C Unavailable [phone] Pratik, Krystin Engel APRN POTABLE WATER TREATMENT OPERATOR Primary Care Provider [phone] Florecita Bryan RN Unavailable PratikKrystin newby APRN POTABLE WATER TREATMENT OPERATOR Unavailable [phone] PratikKrystin newby APRN POTABLE WATER TREATMENT OPERATOR Unavailable [phone] Reason for Visit Reason Comments Shortness of Breath recently hospitalized for sa me. was in for 3 days. they 'don't know what;s going on' Encounter Details Date Type Department Care Team Description 09/09/2018 - Emergency [facility] Lauri Omalley MD [facility] [address]RI[address]HER [place]AB MD [id number] Subclinical hypothyroidism (Primary Dx); 09/10/2018 Carmine Prather MD [address] [id number] Weakness; Recovery and Short Dyspnea, unspecified type Stay [address] [id number] Social History Tobacco Use Types Packs/Day Years Used Date Smoking Tobacco: Never Smokeless Tobacco: Never Alcohol Use Standard Drinks/Week Comments No 0 (1 standard drink = 0.6 oz pure alcoho l) Sex Assigned at Date Recorded Female 08/17/2018 10:39 PM [employer] documented as of this encounter Last Filed Vital Signs Vital Sign Reading Time Taken Comments Blood Pressure 119/70 09/10/2018 7:57 AM [employer] Pulse 97 09/10/2018 7:57 AM [employer] Temperature 36.2 ??C (97.2 ??F) 09/10/2018 7:57 AM [employer] Respiratory Rate 16 09/10/2018 8:00 AM [employer] Oxygen Saturation 92% 09/10/2018 7:57 AM [employer] Inhaled Oxygen Concentration - - Weight 83.9 kg (185 lb) 09/09/2018 10:44 AM [employer] Height 160 cm (5' 3) 09/09/2018 10:44 AM [employer] Body Mass Index 32.77 09/09/2018 10:44 AM [employer] documented in this encounter Discharge Summaries Demarco Sandoval PA-C - 09/10/2018 10:01 AM CST Admit Date: 09/09/2018 Discharge Date: 09/10/2018 PRIMARY CARE PHYSICIAN: Dr. Christie. DISCHARGE DIAGNOSES: 1. Generalized weakness with shortness of breath with noted subclinical hypothyroidism. 2. Type 2 diabetes. 3. Mild intermittent asthma. 4. Nonalcoholic steatohepatitis. DISCHARGE MEDICATIONS: Review of your medicines START taking Dose / Directions levothyroxine 25 MCG tablet Commonly known as: SYNTHROID/LEVOTHROID Used for: Subclinical hypothyroidism Dose: 25 mcg Take 1 tablet (25 mcg) by mouth daily Quantity: 30 tablet Refills: 0 CONTINUE these medicines which may have CHANGED, or have new prescriptions. If we are uncertain of the size of tablets/capsules you have at home, strength may be listed as something that might have changed. Dose / Directions metFORMIN 500 MG 24 hr tablet Commonly known as: GLUCOPHAGE-XR This may have changed: See the new instructions. Used for: Type 2 diabetes mellitus without complication, without long-term current use of insulin (H), Alopecia, History of corticosteroid therapy, Morbid obesity, unspecified obesity type (H) TAKE 4 TABLETS(2000 MG) BY MOUTH DAILY WITH DINNER Quantity: 360 tablet Refills: 2 CONTINUE these medicines which have NOT CHANGED Dose / Directions albuterol 108 (90 Base) MCG/ACT inhaler Commonly known as: PROAIR HFA/PROVENTIL HFA/VENTOLIN HFA Dose: 2 puff Inhale 2 puffs into the lungs every 6 hours Refills: 0 blood glucose monitoring lancets Used for: Type 2 diabetes mellitus without complication, without long-term current use of insulin (H), Alopecia, History of corticosteroid therapy, Morbid obesity, unspecified obesity type (H) Use to test blood sugar 2 times daily or as directed. Quantity: 4 Box Refills: 3 blood glucose test strip Commonly known as: JAYLENE CONTOUR NEXT Used for: Type 2 diabetes mellitus without complication, without long-term current use of insulin (H), Alopecia, History of corticosteroid therapy, Morbid obesity, unspecified obesity type (H) Use to test blood sugar 2 times daily or as directed. Quantity: 200 each Refills: 3 EPIPEN 2-KITTY 0.3 MG/0.3ML injection Generic drug: EPINEPHrine Dose: 0.3 mg Inject 0.3 mg into the muscle once as needed. Refills: 0 fluticasone-vilanterol 200-25 MCG/INH inhaler Commonly known as: BREO ELLIPTA Dose: 1 puff Inhale 1 puff into the lungs daily Refills: 0 ipratropium - albuterol 0.5 mg/2.5 mg/3 mL 0.5-2.5 (3) MG/3ML neb solution Commonly known as: DUONEB Used for: Mild persistent asthma with acute exacerbation Dose: 1 vial Take 1 vial (3 mLs) by nebulization every 6 hours as needed for shortness of breath / dyspnea or wheezing Quantity: 1 Box Refills: 0 Vitamin D (Cholecalciferol) 1000 units Tabs Dose: 1000 Units Take 1,000 Units by mouth daily Refills: 0 Where to get your medicines These medications were sent to [facility] [address] [facility] - [address] [id number] ?? levothyroxine 25 MCG tablet ALLERGIES: Allergies Allergen Reactions ??? Cipro [Quinolones] Itching and Difficulty breathing ??? Ciprofloxacin Itching and Shortness Of Breath ??? Codeine Shortness Of Breath Other reaction(s): Syncope ??? Codeine Sulfate Other (See Comments) Blacked out ??? Vicodin [Hydrocodone-Acetaminophen] Itching and Difficulty breathing ??? Darvocet [Propoxyphene N-Apap] Itching DISPOSITION: Home. FOLLOWUP WITH RECOMMENDATIONS: The patient should follow up with primary care provider within 1 week. The patient already has an appointment scheduled for 09/14 at 1:40 in the afternoon. Would recommend evaluation of medication changes and hospital followup and also recommend a repeat TSH with free T4in 4-6 weeks. ACTIVITY: As tolerated. DIET: Regular diet. CONSULTATIONS: none. LABORATORY, IMAGING AND PROCEDURES: 1. Routine laboratory studies that included arterial blood gas, CBC with platelet differential, comprehensive metabolic panel, proBNP, initial troponin, D-dimer, lipase level, Monospot, TSH with free T4, blood glucose monitoring serially and urinalysis. 2. Two-view chest x-ray. 3. EKG. PENDING RESULTS: None. PHYSICAL EXAMINATION: VITAL SIGNS: On day of discharge, temperature is 97.2 degrees Fahrenheit with a blood pressure of 119/70, heart rate of 97 beats per minute, respiratory rate of 16, O2 saturation 92% on room air. The patient was denying any pain during my assessment. GENERAL: The patient is awake, alert and cooperative, in no apparent distress, alert and oriented x3. HEENT: Normocephalic, atraumatic. Moist mucous membranes present. No exudates noted in the posteriorpharynx. Uvula is midline. NECK: Supple. Normal range of motion. No tracheal deviation. No cervical lymphadenopathy present. CARDIOVASCULAR: Regular rate and rhythm. No rubs, murmurs or gallops appreciated. PULMONARY: Lungs are clear to auscultation bilaterally. No wheezes, rhonchi or rales appreciated. GASTROINTESTINAL: Bowel sounds are present in all 4 quadrants, soft, nontender, nondistended, obese. NEUROLOGIC: Cranial nerves II-XII are grossly intact. The patient is seen moving all 4 extremities without any difficulty. EXTREMITIES: No lower extremity edema noted bilaterally. Calves are nontender to palpation. HISTORY OF PRESENT ILLNESS: Becki Ridley is a 63-year-old female with past medical history significant for asthma, restrictive lung disease, nonalcoholic steatohepatitis, type 2 diabetes, recent admission from 08/20 through 08/22 for generalized weakness and abdominal bloating who was registered to observation on 09/09/2018 due to generalized weakness and shortness of breath. HOSPITAL COURSE: 1. Generalized weakness with shortness of breath with noted subclinical hypothyroidism: The patient's workup had been negative, including a basic metabolic panel, CBC with platelets, lipase level, proBNP, D-dimer, chest x-ray, EKG and UA. TSH with free T4 revealed a TSH level of 10.11, which is elevated, and a free T4 within normal limits at 0.9. As the TSH is significantly elevated and the patient has complaints of generalized weakness and temperature intolerance, discussed starting levothyroxine, for which the patient was in agreement to and will discharge on 25 mcg daily and follow up with primary care provider. Discussed the patient will require repeat lab studies in 4-6 weeks. The patient also received a liter of IV fluids. 2. Type 2 diabetes: The patient's prior to admit metformin ER 2000 mg with supper was continued during this stay and will be resumed at time of discharge. 3. Mild intermittent asthma with noted restrictive lung disease: The patient was continued on her prior to admit inhalers, which will be resumed at time of discharge. 4. VILLAREAL: The patient has chronically elevated AST and ALT that appears stable throughout the stay and no interventions were required. CODE STATUS: Full code. The patient was discussed with Dr. Sprague, who agrees with discharge at this time. Dr. Sprague will evaluate the patient independently. TOTAL DISCHARGE TIME: Less than 30 minutes. LUIS E SPRAGUE MD As dictated by DEMARCO SANDOVAL PA-C MT: TRISTIN Name: BECKI RIDLEY MRN: [id number] Account: [id number] : 1955 Admit Date: 09/09/2018 Discharge Date: 09/10/2018 Document: [id number] cc: Krystin Christie APRN POTABLE WATER TREATMENT OPERATOR [employer] Associated attestation - Luis E Sprague MD - 09/21/2018 2:57 PM [employer] Physician Attestation I, Luis E Sprague, have reviewed and discussed with the advanced practice provider their dischargeplan for Becki Ridley. I did not participate in a shared visit by interviewing or examining the patient and this should be billed as an advanced practice provider only discharge. Luis E Sprague Date of Service (when I saw the patient): I did not personally see this patient today. documented in this encounter Discharge Instructions Discharge InstructionsIsatu Shay RN - 09/09/2018 3:32 PM [employer] Remember belongings in security! #[id number] [employer] documented in this encounter Medications at Time [...] therapy, Morbid obesity, unspecified obesity type (H) fluticasone-vilanterol Inhale 1 puff into 0 09/14/2018 (BREO ELLIPTA) 200-25 the lungs daily MCG/INH inhaler ipratropium - albuterol Take 1 vial (3 mLs) 1 Box 0 10/01/2019 0.5 mg/2.5 mg/3 mL by nebulization every (DUONEB) 0.5-2.5 (3) 6 hours as needed for MG/3ML neb shortness of breath / solutionIndications: dyspnea or wheezing Mild persistent asthma with acute exacerbation levothyroxine Take 1 tablet (25 30 tablet 0 09/10/201801/2019 (SYNTHROID/LEVOTHROID) mcg) by mouth daily 25 MCG tabletIndications: Subclinical hypothyroidism metFORMIN TAKE 4 TABLETS(2000 360 tablet 2 10/09/201709/20 (GLUCOPHAGE-XR) 500 MG MG) BY MOUTH DAILY 24 hr WITH DINNER tabletIndications: Type 2 diabetes mellitus without complication, without long-term current use of insulin (H), Alopecia, History of corticosteroid therapy, Morbid obesity, unspecified obesity type (H) documented as of this encounter Progress Notes Minnie Perrin RN - 09/10/2018 8:00 AM CST -diagnostic tests and consults completed and resulted: Met. -vital signs normal or at patient baseline: Met. Patient states she is ready to discharge to home today. Will update the PA. Jimmy Morales RN - 09/10/2018 4:43 AM CST -diagnostic tests and consults completed and resulted: No met -vital signs normal or at patient baseline: Met ? Jimmy Morales RN - 09/10/2018 2:09 AM CST -diagnostic tests and consults completed and resulted: No met -vital signs normal or at patient baseline: Met ? Elida Ordaz RN - 09/09/2018 8:00 PM CST Observation goals PRIOR TO DISCHARGE ?? Comments: -diagnostic tests and consults completed and resulted: No met ?? -vital signs normal or at patient baseline: Met ? [employer] Elida Carroll RN - 09/09/2018 4:00 PM CST Observation goals PRIOR TO DISCHARGE ?? Comments: -diagnostic tests and consults completed and resulted: No met -vital signs normal or at patient baseline: Not met [employer] Minnie Perrin RN - 09/09/2018 2:28 PM CST RECEIVING UNIT ED HANDOFF REVIEW ED Nurse Handoff Report was reviewed by: Minnie Perrin on September 09, 2018 at 2:28 PM [employer] documented in this encounter H&P Notes Carmine Fontanez MD - 09/09/2018 2:22 PM CST [facility] History and Physical - Hospitalist Service Date of Admission: 09/09/2018 Assessment & Plan Becki Ridley is a 63 year old female With past medical history of asthma, restrictive lung disease, nonalcoholic steatohepatitis, type 2 diabetes, recent admission from 08/20-08/22 for generalized weakness and abdominal bloating who is currently presenting again with complaint of generalized weakness and shortness of breath Generalized weakness and shortness of breath Patient reports this has been progressive since the end of July 2018 after she had a URI. As mentioned above she was admitted beginning of August for progressive generalized weakness of unclear etiology. She does not have any clear focal symptoms at this point. I suspect most of her symptoms could be Secondary to deconditioning due to inactivity. Her workup in the ED is essentially unremarkable including basic metabolic panel, CBC, lipase, N- terminal proBNP, d-dimer, chest x-ray, EKG. Lung examis clear and has good air movement. admit under observation. - IV fluids for total of 1 L over 10 hours - Check UA with reflex to culture - Check thyroid function tests, has a history of subclinical hypothyroidism however most recent TSH was in the normal range. - PT evaluation in the morning - Social work consult Type II DM - Continue with prior to admission metformin ER 2000 mg with supper Asthma - Continue with prior to admission albuterol p.r.n. - She has Breo Ellipita but it is a sample from clinic that she is using VILLAREAL: AST/ALT are chronically elevated and curretly elevated as well, but appear stable Diet: regualr diet DVT Prophylaxis: Ambulate every shift Harris Catheter: not present Code Status: Full, discussed with patient Disposition Plan Expected discharge: Tomorrow, recommended to pending PT Eval home vs TCU once UA/TSH resulted,and PTeval complete. Entered: Carmine Fontanez MD 09/09/2018, 2:22 PM The patient's care was discussed with the Patient. Carmine Fontanez MD [facility] Chief Complaint Genearlized weakness Shortness of breath History is obtained from the patient, chart review and discussion with ED MD History of Present Illness Becki Ridley is a 63 year old female With past medical history of asthma, restrictive lung disease, nonalcoholic steatohepatitis, type 2 diabetes who is presenting in for evaluation of shortness of breath and generalized weakness. Patient reports since her upper respiratory tract infection/bronchitis at the end of 07/2018,She has been feeling very weak and also feels short of breath. She states after talking for a bit, her voice also starts getting weak and hoarse. She denies cough, fevers, but states she has been getting hot flashes. She denies any recent diarrheal illness. She denies headache, sore throat, nasal congestion or runny nose. She complains of a bandlike discomfort in her right upperabdomen And bloating. Of note, she was in the hospital from 08/20-08/22 For generalized weakness and abdominal discomfort. Etiology of her generalized weakness was unclear at that time but seems to have improved after IV fluids. Regarding her abdominal discomfort she had a CT of the abdomen and pelvis, HIDA and an ultrasound which were all negative. In the ED, vitals were stable. Laboratory cardozo basic metabolic panel, CBC, d- dimer, and terminal proBNP, troponin, Lipase Were all in the normal range. Infectious mono screen was also negative chest x-ray without evidence of infiltrate, EKG and normal sinus rhythm. Despite reassurance, patient felt un comfortable discharging home, this admission for observation was requested. Review of Systems The 10 point Review of Systems is negative other than noted in the HPI Past Medical History Type 2 diabetes Asthma Restrictive lung disease Nonalcoholic steatohepatitis YESSI Past Surgical History I have reviewed this patient's surgical history and updated it with pertinent information if needed. Past Surgical History: Procedure Laterality Date ??? BIOPSY 2011 liver ??? COLONOSCOPY age 52 [place] results Social History I have reviewed this patient's social history and updated it with pertinent information if needed. Social History Tobacco Use ??? Smoking status: Never Smoker ??? Smokeless tobacco: Never Used Substance Use Topics ??? Alcohol use: No Alcohol/week: 0.0 oz ??? Drug use: No Family History I have reviewed this patient's family history and updated it with pertinent information if needed. Family History Problem Relation Age of Onset ??? Thyroid Disease Daughter patric thyroiditis ??? Depression Daughter ??? Anxiety Disorder Daughter ??? Depression Mother ??? Dementia Mother ??? Hypertension Mother ??? Cancer Mother ??? Depression Father ??? Hypertension Father ??? Depression Maternal Grandmother ??? Dementia Maternal Aunt ??? Dementia Maternal Aunt ??? Dementia Maternal Aunt ??? Dementia Maternal Aunt Prior to Admission Medications Prior to Admission Medications Prescriptions Last Dose Informant Patient Reported? Taking? EPINEPHrine (EPIPEN 2-KITTY) 0.3 MG/0.3ML injection prn Self Yes Yes Sig: Inject 0.3 mg into the muscle once as needed. Vitamin D, Cholecalciferol, 1000 units TABS Past Month at Unknown time Self Yes Yes Sig: Take 1,000 Units by mouth daily albuterol (PROAIR HFA/PROVENTIL HFA/VENTOLIN HFA) 108 (90 Base) MCG/ACT inhaler prn Self Yes Yes Sig: Inhale 2 puffs into the lungs every 6 hours blood glucose monitoring (JAYLENE CONTOUR NEXT) test strip Self No No Sig: Use to test blood sugar 2 times daily or as directed. blood glucose monitoring (JAYLENE MICROLET) lancets Self No No Sig: Use to test blood sugar 2 times daily or as directed. fluticasone-vilanterol (BREO ELLIPTA) 200-25 MCG/INH inhaler 09/09/2018 at am Self Yes Yes Sig: Inhale 1 puff into the lungs daily ipratropium - albuterol 0.5 mg/2.5 mg/3 mL (DUONEB) 0.5-2.5 (3) MG/3ML neb solution 09/09/2018 at am Self No Yes Sig: Take 1 vial (3 mLs) by nebulization every 6 hours as needed for shortness of breath / dyspnea or wheezing metFORMIN (GLUCOPHAGE-XR) 500 MG 24 hr tablet 09/09/2018 at am Self No Yes Sig: TAKE 4 TABLETS(2000 MG) BY MOUTH DAILY WITH DINNER Patient taking differently: TAKE 4 TABLETS(2000 MG) BY MOUTH DAILY Facility-Administered Medications: None Allergies Allergies Allergen Reactions ??? Cipro [Quinolones] Itching and Difficulty breathing ??? Ciprofloxacin Itching and Shortness Of Breath ??? Codeine Shortness Of Breath Other reaction(s): Syncope ??? Codeine Sulfate Other (See Comments) Blacked out ??? Vicodin [Hydrocodone-Acetaminophen] Itching and Difficulty breathing ??? Darvocet [Propoxyphene N-Apap] Itching Physical Exam Vital Signs: Temp: 98.1 ??F (36.7 ??C) Temp src: Oral BP: 127/81 Pulse: 90 Heart Rate: 95 Resp: 21 SpO2: 91 % O2 Device: None (Room air) Weight: 185 lbs 0 oz General Appearance: alert, awake and no apparent distress HEENT: Normocephalic, atraumatic, oral mucosa is moist, no pharyngeal erythema or exudates, no sclerae icterus, no conjunctival injection Respiratory: Clear to auscultation, good air exchange, no wheezing and nonlabored breathing Cardiovascular: Regular rate and rhythm, no audible murmur GI: soft, mild discomfort in the upper abdomen, no rebound or guarding Skin: warm and dry Musculoskeletal: Normal muscle tone, no obvious joint effusion or swelling Neurologic: Strength appears symmetrical bilateral upper and extremities and lower extremities, however equally decreased Data Data reviewed today: I reviewed all medications, new labs and imaging results over the last 24 hours. I personally reviewed the chest x-ray image(s) showing no acute abnormality. Recent Labs Lab 09/09/18 1130 WBC 5.7 HGB 13.7 MCV 81 PLT 215 NA 139 POTASSIUM 4.1 CHLORIDE 107 CO2 23 BUN 16 CR 0.47* ANIONGAP 9 JOSIAH 9.4 GLC 227* ALBUMIN 3.6 PROTTOTAL 7.4 BILITOTAL 0.6 ALKPHOS 63 ALT 102* AST 55* LIPASE 230 TROPI <0.015 Recent Results (from the past 24 hour(s)) XR Chest 2 Views Narrative CHEST TWO VIEWS 09/09/2018 11:59 AM HISTORY: Subacute shortness of breath. COMPARISON: Chest CT 09/01/2018 Impression IMPRESSION: No acute abnormality. Lungs are well-inflated and clear. Heart size is normal. ELIDA GAUTAM MD [employer] documented in this encounter ED Notes lAta Layton RN - 09/09/2018 1:39 PM CST [facility] ED Nurse Handoff Report ED Chief complaint: Shortness of Breath (recently hospitalized for same. was in for 3 days. they 'don't know what;s going on') ED Diagnosis: Final diagnoses: Weakness Dyspnea, unspecified type Code Status: Full Code Allergies: Allergies Allergen Reactions ??? Cipro [Quinolones] Itching and Difficulty breathing ??? Ciprofloxacin Itching and Shortness Of Breath ??? Codeine Shortness Of Breath Other reaction(s): Syncope ??? Codeine Sulfate Other (See Comments) Blacked out ??? Vicodin [Hydrocodone-Acetaminophen] Itching and Difficulty breathing ??? Darvocet [Propoxyphene N-Apap] Itching Activity level - Baseline/Home: Independent Activity Level - Current: Stand with Assist Sandwich Artist Needed?: No Isolation: No Infection: Not Applicable Bariatric?: No Vital Signs: Vitals: 09/09/18 1044 09/09/18 1102 09/09/18 1131 09/09/18 1140 BP: 166/87 127/81 Pulse: 90 Resp: 16 11 12 21 Temp: 98.1 ??F (36.7 ??C) TempSrc: Oral SpO2: 95% 91% Weight: 83.9 kg (185 lb) Height: 1.6 m (5' 3) Cardiac Rhythm: , Cardiac Cardiac Rhythm: Normal sinus rhythm Pain level: 0-10 Pain Scale: 0 Is this patient confused?: No Does this patient have a guardian? No If yes, is there guardianship documents in the Epic Code/ACP activity? N/A Guardian Notified? N/A [place] - Suicide Severity Rating Scale Completed? Yes If yes, what color did the patient score? White Patient Report: Initial Complaint: SOB- Pt States has had SOB for a month or so and it has not improved Focused Assessment: Pt alert and oriented VSS afeb. Pt states has been feeling like there is a tightness in abd and bloating, which pt feels increased SOB. Pt states too weak and not able to walk. Pt had just been seen in the hospital and had work up and pt states not feeling any better Tests Performed: labs cxr Abnormal Results: Treatments provided: Family Comments: OBS brochure/video discussed/provided to patient/family: Yes Name of person given brochure if not patient: Relationship to patient: ED Medications: Medications - No data to display Drips infusing?: No For the majority of the shift this patient was Green. Interventions performed were . Severe Sepsis OR Septic Shock Diagnosis Present: No To be done/followed up on inpatient unit: ED NURSE PHONE NUMBER: Rosy Montes RN - 09/09/2018 10:42 AM CST Bed: ED06 Expected date: Expected time: Means of arrival: Comments: triage Sriram Bond MD - 09/09/2018 10:40 AM CST History Chief Complaint: Shortness of Breath HPI Becki Ridley is a 63 year old female who presents with SOB. Review of the patient's chart shows that she was seen at [facility] ED on 08/20 for evaluation of generalized weakness as well as chest discomfort. Her evaluation at this time, including an RUQ ultrasound, chest x-ray, and labs, was relativelyunremarkable aside from a mildly elevated lipase. However, the patient felt too overwhelmed by her symptoms to be discharged. She was admitted for further observation. She was given fluids during admission and underwent an abdominal/pelvis CT and HIDA scan. These studies were unremarkable, and her weakness improved throughout her stay. The etiology of her symptoms remained unclear, and it was recommended that she follow up with her primary care provider for further care. She was also referred to GI and pulmonology. She states she has not yet seen a home care and home health aides teacher. Today, the patient reports that she has been feeling mildly improved since discharge but has had continued upper abdominal tightness and SOB. She states that her symptoms increased in severity yesterday while she was resting at home. The patient reports using nebulizer treatments at home without any relief. The persistence of her symptoms concerned her, prompting her to come to the ED for evaluation.Here, the patient describes her symptoms as feeling like a boa constrictor is wrapped around her upper abdomen. She states that she has been feeling intermittently chilled and diaphoretic but describes these as menopause sweats. The patient denies any palpitations, or cough as well as nausea, vomit ing, or leg swelling. She notes that her mother was recently sick with pneumonia earlier in the month but has had no new exposure to sick contacts. The patient denies tobacco use. Allergies: Cipro Codeine Vicodin Darvocet Medications: Albuterol Epipen Fluticasone-Salmeterol inhaler Duoneb Metformin Vitamin D Past Medical History: Angioedema Arthritis Asthma Blood transfusion Depression Diabetes, type 2 Hypertension Lower extremity edema Nonalcoholic steatohepatitis Restless leg syndrome Restrictive lung disease Sleep apnea Subclinical hypothyroidism Urticaria History of corticosteroid therapy Elevated liver enzymes Weakness Past Surgical History: Liver biopsy Colonoscopy Family History: The patient reports a maternal history of depression, dementia, hypertension, and cancer. The patient reports a fraternal history of depression and hypertension. The patient denies any other relevant family history. Social History: The patient is single. The patient denies tobacco, alcohol, and drug use. She is currently retired but worked for the [employer] previously. Review of Systems All other systems reviewed and are negative. Physical Exam First Vitals: BP: 166/87 Heart Rate: 102 Temp: 98.1 ??F (36.7 ??C) Resp: 16 Height: 160 cm (5' 3) Weight: 83.9 kg (185 lb) SpO2: 95 % RA Physical Exam General: nontoxic appearing woman sitting upright in room 6 HENT: mucous membranes moist, OP clear, TMs wnl CV: normal rate (initial tachycardia has resolved), regular rhythm, no lower extremity edema, no murmur audible Resp: clear throughout, unlabored, no wheezing or stridor, speaks in full phrases, no cough observed GI: abdomen soft and nontender, no guarding MSK: no bony tenderness to chest Skin: appropriately warm and dry Neuro: awake, alert, clear speech, fully oriented, face symmetric, strainer tender normal, strength and sensation intact in all extr, no meningismus, ambulation not initially tested Psych: anxious, cooperative Emergency Department Course ECG: Indication: SOB Findings: Normal sinus rhythm. Normal ECG. ECG read at 10:[address] Omalley. Ventricular rate: 94 bpm NM Interval: 142 ms QRS duration: 76 ms QT/Qtc: 378/472 ms R-wave axis: 13 Imaging: Radiographic findings were communicated with the patient who voiced understanding of the findings. CXR, 2 views: IMPRESSION - No acute abnormality. Lungs are well-inflated and clear. Heart size is normal. Report per radiology. Laboratory: Lipase: 230 CBC: WNL (WBC 5.7, HGB 13.7, PLT 215) CMP: Creatinine 0.47 (low), Glucose 227 (high), ALT 102 (high), AST 55 (high), o/w WNL. BNP: 33 Troponin I (11:30): <0.015 Blood gas, arterial and oxyhgb: pO2 arterial 110 (high), o/w WNL. D Dimer: <0.3 Mononucleosis screen: Negative Emergency Department Course: Nursing notes and vitals reviewed. I performed an exam of the patient as documented above. IV inserted and blood drawn. The patient was placed on continuous cardiac monitoring and pulse oximetry. 12:05 XR obtained. Results as above. 13:14 Recheck. Findings discussed with the patient. Discussed recommendation for discharge, patient insists on staying in the hospital. 13:33 Discussed the case with Dr. Fontanez, sales compensation analyst for hospitalist services. Discussed case with Dr. Fontanez in the ED. Patient reports that she will contact her daughter to seeif she can help take care of her. 14:20 Recheck. Patient has discussed her ED stay with her daughter, who feels that she should stay in the hospital for further monitoring. Findings and plan explained to the Patient who consents to admission. Discussed the patient with , who will admit the patient for further monitoring, evaluation, and treatment. Impression & Plan Medical Decision Making: She presents with ongoing symptoms including overall weakness, trouble breathing, and some epigastric discomfort. I reviewed her records in significant detail. She has had prior extensive evaluation including multiple imaging modalities of both chest and abdomen. She had minimal tachycardia on arrival which improved on recheck, and otherwise her vital signs are very reassuring. Her testing here todaysimilarly does not reveal any acutely dangerous pathology. Specifically, her normal d-dimer makes PEextremely unlikely. I do not think she requires another CT of her chest. No evidence of an acute coronary syndrome. She is not currently having any arrhythmia. No focal neurologic signs or symptoms to suggest the presence of a dangerous COMMERCIAL LEASE ADMINISTRATOR process. I do not suspect stroke. Presentation is not highly suspicious for infection. She was a somewhat challenging historian, at times stating that she had notseen a neurologist and later stating that she had but not in a while. I discussed all this at great l ength with this patient, including my impression that I would consider her appropriate for outpatient management and close follow-up. Ultimately, she did not feel she would be able to manage as an outpatient due to her severity of weakness and requested hospitalization for ongoing care. This was ultimately arranged. Diagnosis: ICD-10-CM 1. Weakness R53.1 2. Dyspnea, unspecified type R06.00 Disposition: Admitted under Dr. Fontanez. This record was created at least in part using electronic voice recognition software, so please excuse any typographical errors. I, Rick Colindres, am serving as a scribe at 10:55 AM on 09/09/2018 to document services personally performed by Sriram Omalley, based on my observations and the provider's statements to me. Sriram Omalley MD 09/09/18 [id number] NER FURNITURE documented in this encounter Miscellaneous Notes Plan of Care - Minnie Perrin RN - 09/10/2018 10:17 AM CST Rn: Patient discharged to home. A/O x4. VSS on RA. Up IND. Tolerating diet. States she feels better and ready for discharge to home. AVS discharge instructions and medications reviewed with the patient. Prescription for thyroid medication filled and sent with the patient. Copy of AVS sent with the patient. Valuables from security sent home with the patient. NER FURNITURE Plan of Care - Yue Bejarano, PT - 09/10/2018 9:25 AM CST PT:[facility] Patient plan for discharge: Return home Current status: Patient admitted with generalized weakness under observation status. Pt is now up with SBA and moving well, per nursing pt states she is ready to go home today. Pt has no skilled PT needs at this time. Barriers to return to prior living situation: None Recommendations for discharge: Return home Rationale for recommendations: Pt has no skilled PT needs at this time. Entered by: Yue Bejarano 09/10/2018 9:25 AM NER FURNITURE Plan of Care - Jimmy Nolasco RN - 09/10/2018 5:28 AM CST A&O x4. VSS on RA. Denies chest pain and SOB. Reports intermittent abd pain. Regular diet. Up with SBA. Continue to monitor. NER FURNITURE Plan of Care - Elida Carroll RN - 09/09/2018 10:38 PM CST A/OX4. VSS on RA. DIETZ. LS clear, IS 1500.Denies pain. Assist of one using IV pole for support. UA collected, negative. Ambulating in the hallway w/ SBA. NER FURNITURE Pharmacy-Admission Medication History - Pretty Yun [facility] - 09/09/2018 1:40 PM CST Admission medication history interview status for the 09/09/2018 admission is complete. See [facility] admission navigator for prior to admission medications Medication history source reliability:Good Actions taken by pharmacist (provider contacted, etc):None Additional medication history information not noted on FINISHED GARMENT INSPECTOR med list :None Medication reconciliation/reorder completed by provider prior to medication history? No Time spent in this activity: 10 minutes Prior to Admission medications Medication Sig Last Dose Taking? Auth Provider albuterol (PROAIR HFA/PROVENTIL HFA/VENTOLIN HFA) 108 (90 Base) MCG/ACT inhaler Inhale 2 puffs into the lungs every 6 hours prn Yes Unknown, Entered By History EPINEPHrine (EPIPEN 2-KITTY) 0.3 MG/0.3ML injection Inject 0.3 mg into the muscle once as needed. prn Yes Reported, Patient fluticasone-vilanterol (BREO ELLIPTA) 200-25 MCG/INH inhaler Inhale 1 puff into the lungs daily 09/09/2018 at am Yes Unknown, Entered By History ipratropium - albuterol 0.5 mg/2.5 mg/3 mL (DUONEB) 0.5-2.5 (3) MG/3ML neb solution Take 1 vial (3 mLs) by nebulization every 6 hours as needed for shortness of breath / dyspnea or wheezing 09/09/2018 at am Yes Ramakrishna Marin MD metFORMIN (GLUCOPHAGE-XR) 500 MG 24 hr tablet TAKE 4 TABLETS(2000 MG) BY MOUTH DAILY WITH DINNER Patient taking differently: TAKE 4 TABLETS(2000 MG) BY MOUTH DAILY 09/09/2018 at am Yes Mare Tracey PA-C Vitamin D, Cholecalciferol, 1000 units TABS Take 1,000 Units by mouth daily Past Month at Unknown time Yes Unknown, Entered By History blood glucose monitoring (JAYLENE CONTOUR NEXT) test strip Use to test blood sugar 2 times daily or asdirected. Tali Vilchis MD blood glucose monitoring (JAYLENE MICROLET) lancets Use to test blood sugar 2 times daily or as directed. Tali Vilchis MD [facility]ER FURNITURE documented in this encounter Plan of Treatment Upcoming Encounters Date Type Specialty Care Team Description 05/19/2022 Office Visit [facility] [address] [facility] [place] [place] [address] (Wo rk) 08/02/2022 Office Visit Neurology Yair Campos MD [address] [place], [place] [address] (Wo rk) Pending Results Name Type Priority Associated Diagnoses Date/Ti me T4 free Lab Routine Weakness 09/09/2018 11:3 0 AM CLE[employer]URNITURE documented as of this encounter Procedures Procedure Name Priority Date/Time Associated Comments Diagnosis GLUCOSE BY METER Routine 09/10/2018 8:02 AM Weakness Resul ts for this [employer] procedure are i n the results section. GLUCOSE BY METER Routine 09/10/2018 2:30 AM Weakness Resul ts for this [employer] procedure are i n the results section. GLUCOSE BY METER Routine 09/09/2018 9:49 PM Weakness Resul ts for this [employer] procedure are i n the results section. ROUTINE UA WITH Routine 09/09/2018 7:25 PM Weakness Result s for this MICROSCOPIC REFLEX TO [employer]ER [employer]URNITURE proced ure are in CULTURE the results section. GLUCOSE BY METER Routine 09/09/2018 5:37 PM Weakness Resul ts for this [employer] procedure are i n the results section. XR CHEST 2 VIEWS STAT 09/09/2018 11:59 Results for this AM [employer]IT[employer] procedure are i n the results section. CBC WITH PLATELETS & STAT 09/09/2018 11:30 Res ults for this DIFFERENTIAL AM [employer] procedure are i n the results section. TSH WITH FREE T4 Routine 09/09/2018 11:30 Weakness Results for this REFLEX AM [employer]URE procedure are i n the results section. TROPONIN I STAT 09/09/2018 11:30 Results for this AM [employer]ITURE procedure are i n the results section. T4 FREE Routine 09/09/2018 11:30 Weakness Results for this AM [employer] procedure are i n the results section. T4 FREE Routine 09/09/2018 11:30 Weakness AM CLE[employer]ER [employer]URNITURE NT PROBNP INPATIENT STAT 09/09/2018 11:30 Resu lts for this AM [employer]ITURE procedure are i n the results section. MONONUCLEOSIS SCREEN Routine 09/09/2018 11:30 Weakness Res ults for this AM [employer] procedure are i n the results section. LIPASE STAT 09/09/2018 11:30 Results for this AM [employer] procedure are i n the results section. D DIMER QUANTITATIVE STAT 09/09/2018 11:30 Res ults for this AM [employer] procedure are i n the results section. COMPREHENSIVE STAT 09/09/2018 11:30 Results fo r this METABOLIC PANEL AM [employer] procedure ar e in the results section. BLOOD GAS ARTERIAL STAT 09/09/2018 11:27 Resul ts for this WITH OXYHEMOGLOBIN AM [employer] procedure are in the results section. EKG 12-LEAD, TRACING STAT 09/09/2018 10:53 Res ults for this ONLY AM [employer]URE procedure are i n the results section. documented in this encounter Results (ABNORMAL) Glucose by meter (09/10/2018 8:02 AM CLEANER FURNITURE) P athologist Signature Glucose 158 (H) 70 - 99 09/10/2018 POINT OF CARE mg/dL 8:15 AM CLEANER FURNITURE TEST, GLUCOSE Specimen Anatomical Collection Method Collection Time Receive d Time (Source) Location / / Volume Laterality 09/10/2018 8:02 AM 9 8:15 CLE[employer] [employer]URNITURE AM CLE[employer]ER FURNITURE Carmine Fontanez MD LAB - [employer] POCT Performing Organization Address City/State/ZIP Code Phon e Number [facility] POINT OF CARE TEST, GLUCOSE POINT OF CARE TEST, GLUCOSE (ABNORMAL) Glucose by meter (09/10/2018 2:30 AM CLEANER FURNITURE) P athologist Signature Glucose 163 (H) 70 - 99 09/10/2018 POINT OF CARE mg/dL 2:41 AM CLEANER FURNITURE TEST, GLUCOSE Specimen Anatomical Collection Method Collection Time Receive d Time (Source) Location / / Volume Laterality 09/10/2018 2:30 AM 9 2:41 CLE[employer]ER [employer]URNITURE AM CLE[employer]ER FURNITURE Carmine Fontanez MD LAB - [facility] POCT Performing Organization Address City/State/ZIP Code Phon e Number F[facility] POINT OF CARE TEST, GLUCOSE POINT OF CARE TEST, GLUCOSE (ABNORMAL) Glucose by meter (09/09/2018 9:49 PM CLE[employer]ER FURNITURE) P athologist Signature Glucose 130 (H) 70 - 99 09/09/2018 POINT OF CARE mg/dL 10:01 PM CLEANER FURNITURE TEST, GLUCOSE Specimen Anatomical Collection Method Collection Time Receive d Time (Source) Location / / Volume Laterality 09/09/2018 9:49 PM 9 [facility] [employer]URE 10:01 PM CLE[employer]ER FURNITURE Carmine Fontanez MD [facility] POCT Performing Organization Address City/State/ZIP Code Phon e Number FV POINT OF CARE TEST, GLUCOSE POINT OF CARE TEST, GLUCOSE (ABNORMAL) UA with Microscopic reflex to Culture (09/09/2018 7:25 PM CLEANER FURNITURE) [facility] Method Time Signature Color Urine Light Yellow 09/09/2018 [facility] 7:38 PM [facility] Appearance Urine Clear 09/09/2018 [facility] 7:38 PM [facility] Glucose Urine Negative NEG^Negat 09/09/2018 [facility] jeromy mg/dL 7:38 PM [facility] Bilirubin Urine Negative NEG^Negat 09/09/2018 [facility] jeromy 7:38 PM [facility] Ketones Urine Negative NEG^Negat 09/09/2018 [facility] jeromy mg/dL 7:38 PM [facility] Specific [place] 1.008 1.003 - 09/09/2018 [facility] Urine 1.035 7:38 PM [facility] Blood Urine Negative NEG^Negat 09/09/2018 [facility] jeromy 7:38 PM [facility] pH Urine 5.5 5.0 - 7.0 09/09/2018 [facility] pH 7:38 PM [facility] Protein Albumin Negative NEG^Negat 09/09/2018 [facility] Urine jeromy mg/dL 7:38 PM [facility] Urobilinogen Normal 0.0 - 2.0 09/09/2018 [facility] mg/dL mg/dL 7:38 PM [facility] Nitrite Urine Negative NEG^Negat 09/09/2018 [facility] jeromy 7:38 PM [facility] Leukocyte Negative NEG^Negat 09/09/2018 [facility] Esterase Urine jeromy 7:38 PM [facility] Source Midstream 09/09/2018 [facility] Urine 7:34 PM [facility] WBC Urine 1 0 - 5 09/09/2018 [facility] /HPF 7:38 PM [facility] RBC Urine <1 0 - 2 09/09/2018 [facility] /HPF 7:38 PM [facility] Squamous 2 (H) 0 - 1 09/09/2018 [place] Epithelial /HPF /HPF 7:38 PM CLE[facility]ER FURNITURE [facility] Specimen (Source) Anatomical Collection Method Collection Time Re ceived Time Location / / Volume Laterality Examination of URINE SPECIMEN 09/09/2018 7:25 09/09/19 19 7:34 midstream urine OBTAINED BY CLEAN PM CLEANER FURNITURE PM CLE[employer]ER FURNITURE specimen CATCH PROCEDURE / (procedure) Unknown Carmine Fontanez MD LAB - URINE ORDERABLES Performing Organization Address City/State/ZIP Code Phon e Number M [facility] [address] [place] [address] [facility] [address] [place] [address], [place] [phone] (ABNORMAL) Glucose by meter (09/09/2018 5:37 PM CLEANER FURNITURE) P athologist Signature Glucose 173 (H) 70 - 99 09/09/2018 POINT OF CARE mg/dL 5:51 PM CLEANER FURNITURE TEST, GLUCOSE Specimen Anatomical Collection Method Collection Time Receive d Time (Source) Location / / Volume Laterality 09/09/2018 5:37 PM 9 5:49 CLEANER FURNITURE PM CLE[employer]ER FURNITURE Carmine Fontanez MD LAB - BEAK[facility] POCT Performing Organization Address City/State/ZIP Code Phon e Number [facility] POINT OF CARE TEST, GLUCOSE POINT OF CARE TEST, GLUCOSE XR Chest 2 Views (09/09/2018 11:59 AM CLEANER FURNITURE) Anatomical Region Laterality Modality Chest Digital Radiography Specimen (Source) Anatomical Location Collection Method / Collectio n Time Received Time / Laterality Volume Impressions 09/09/2018 12:10 PM CLE[employer]ER FURNITURE IMPRESSION: No acute abnormality. Lungs are well-inflated and clear. Heart size is normal. ELIDA GAUTAM MD Narrative 09/09/2018 12:10 PM CLEANER FURNITURE CHEST TWO VIEWS ?? 09/09/2018 11:59 AM HISTORY: Subacute shortness of breath. COMPARISON: Chest CT 09/01/2018 Procedure Note Elida Gautam MD - 09/09/2018F ormatting of this note might be different from the original. CHEST TWO VIEWS 09/09/2018 11:59 AM HISTORY: Subacute shortness of breath. COMPARISON: Chest CT 09/01/2018 IMPRESSION: No acute abnormality. Lungs are well-inflated and clear. Heart size is normal. ELIDA GAUTAM MD Sriram Omalley MD IMG DIAGNOSTIC IMAGING ORDER CHAI T4 free (09/09/2018 11:30 AM CLEANER FURNITURE) athologist Signature T4 Free 0.90 0.76 - 1.46 09/09/2018 [place] ng/dL 4:05 PM CLEANER FURNITURE [facility] Specimen Anatomical Collection Method Collection Time Receive d Time (Source) Location / / Volume Laterality 09/09/2018 11:30 09/09/2018 AM CLEANER FURNITURE 11:53 AM CLEANER FURNITURE Sriram Omalley MD LAB - BLOOD ORDERABLES Performing Organization Address City/State/ZIP Code Phon e Number M [facility] [address] [place] [address] [facility] [address] [place] [address], [place] [phone] (ABNORMAL) TSH with free T4 reflex (09/09/2018 11:30 AM CLEANER FURNITURE) athologist Signature TSH 10.11 (H) 0.40 - 4.00 09/09/2018 [place] mU/L 3:52 PM [facility] Specimen Anatomical Collection Method Collection Time Receive d Time (Source) Location / / Volume Laterality 09/09/2018 11:30 09/09/2018 AM CLEANER FURNITURE 11:53 AM CLEANER FURNITURE Sriram Omalley MD LAB - BLOOD ORDERABLES Performing Organization Address City/State/ZIP Code Phon e Number M [facility] [address] [place] [address] [phone] [facility] [address] [place] [address], [place] [phone] Mononucleosis screen (09/09/2018 11:30 AM CLEANER FURNITURE) [facility] Method Time Signature Mononucleosis Negative NEG^Negat 09/09/2018 [place] Screen jeromy 2:19 PM CLEANER FURNITURE [facility] Specimen Anatomical Collection Method Collection Time Receive d Time (Source) Location / / Volume Laterality 09/09/2018 11:30 09/09/2018 AM CLE[employer]ER FURNITURE 11:53 AM CLEANER FURNITURE Sriram Omalley MD LAB - BLOOD ORDERABLES Performing Organization Address City/State/ZIP Code Phon e Number M [facility] [address] [place] [address] [phone] [facility] [address] [place] [address], [place] [phone] Lipase (09/09/2018 11:30 AM CLEANER FURNITURE) P athologist Signature Lipase 230 73 - 393 09/09/2018 [place] U/L 12:12 PM [facility] Specimen Anatomical Collection Method Collection Time Receive d Time (Source) Location / / Volume Laterality Blood specimen 09/09/2018 11:30 9 (specimen) AM CLE[employer]ER FURNITURE 11:53 AM CLEANER FURNITURE Sriram Omalley MD LAB - BLOOD ORDERABLES Performing Organization Address City/[facility]/ZIP Code Phon e Number [facility] [address] [place] [address] [phone] [facility] [address] [place] [address], [place] [phone] D dimer quantitative (09/09/2018 11:30 AM CLEANER FURNITURE) P athologist Signature D Dimer <0.3 0.0 - 0.50 09/09/2018 [place] ug/ml FEU 12:11 PM [facility] Comment: This D-dimer assay is intended for use i n conjunction with a clinical pretest probability assessment model to exclude pulmonary embolism (PE) and deep venous thrombosis (DVT) in outpatients s uspected of PE or DVT. The cut-off value is 0.5 ug/mL FEU. Specimen Anatomical Collection Method Collection Time Receive d Time (Source) Location / / Volume Laterality Blood specimen 09/09/2018 11:30 9 (specimen) AM CLE[employer]ER FURNITURE 11:53 AM CLEANER FURNITURE Sriram Omalley MD LAB - BLOOD ORDERABLES Performing Organization Address City/State/ZIP Code Phon e Number [facility] [address] [place] [address] [facility] [address] [place] [address], U [phone] Troponin I (09/09/2018 11:30 AM CLEANER FURNITURE) athologist Signature Troponin I ES <0.015 0.000 - 09/09/2018 [place] 0.045 ug/L 12:12 PM [facility] Comment: The 99th percentile for upper reference range is 0.045 ug/L. ??Troponin values in the range of 0.045 - 0.120 ug/L may b e associated with risks of adverse clinical events. Specimen Anatomical Collection Method Collection Time Receive d Time (Source) Location / / Volume Laterality Blood specimen 09/09/2018 11:30 9 (specimen) AM CLE[employer]ER FURNITURE 11:53 AM CLEANER FURNITURE Sriram Omalley MD LAB - BLOOD ORDERABLES Performing Organization Address City/State/ZIP Code Phon e Number M [facility] [address] [phone] [facility] [address] [place] [address], U [phone] Nt probnp inpatient (BNP) (09/09/2018 11:30 AM CLEANER FURNITURE) athologist Signature N-Terminal Pro 33 0 - 900 09/09/2018 [place] BNP Inpatient pg/mL 12:14 PM [facility] Comment: Reference range shown and results flagge d as abnormal are suggested inpatient cut points for confirming diagnosis if C HF in an acute setting. Establishing a baseline value for each individual og ent is useful for follow-up. An inpatient or emergency department NT-pro PBNP <300 pg/mL effectively rules out acute CHF, with 99% negative predictive value. The outpatient non-acute reference range for ruling out CHF is: 0-125 pg/mL (age 18 to less than 75) 0-450 pg/mL (age 75 yrs and older) Specimen Anatomical Collection Method Collection Time Receive d Time (Source) Location / / Volume Laterality Blood specimen 09/09/2018 11:30 9 (specimen) AM CLE[employer]ER FURNITURE 11:53 AM CLEANER FURNITURE Sriram Omalley MD LAB - BLOOD ORDERABLES Performing Organization Address City/State/ZIP Code Phon e Number M [facility] [address] [place] [address] [phone] [facility] [address] [place] [address], [place] [phone] (ABNORMAL) Comprehensive metabolic panel (09/09/2018 11:30 AM CLEANER FURNITURE) athologist Signature Sodium 139 133 - 144 09/09/2018 [place] mmol/L 12:11 PM [facility] Potassium 4.1 3.4 - 5.3 09/09/2018 [place] mmol/L 12:11 PM [facility] Comment: Specimen slightly hemolyzed, po tassium may be falsely elevated Chloride 107 94 - 109 mmol/L 09/09/2018 12:11 PM [facility] Carbon Dioxide 23 20 - 32 mmol/L 09/09/2018 12:11 PM [facility] Anion Gap 9 3 - 14 mmol/L 09/09/2018 12:11 PM [facility] [place] Glucose 227 (H) 70 - 99 mg/dL 09/09/2018 12:11 PM [facility] [place] Urea Nitrogen 16 7 - 30 mg/dL 09/09/2018 12:11 PM [facility] Creatinine 0.47 (L) 0.52 - 1.04 mg/dL 09/09/2018 12:11 PM [facility] GFR Estimate >90 >60 09/09/2018 12:11 PM [facility] mL/min/{1.73_m2} [facility] Comment: Non GFR Calc Starting 07/03/2018, serum creatinine ba sed estimated GFR (eGFR) will be calculated using the Chronic Kidney Dise ase Epidemiology Collaboration (CKD-EPI) equation. GFR Estimate If >90 >60 mL/min/{1.73_m2} 09/09/2018 12:11 PM [facility] Comment: GFR Calc Starting 07/03/2018, serum creatinine ba sed estimated GFR (eGFR) will be calculated using the Chronic Kidney Dise ase Epidemiology Collaboration (CKD-EPI) equation. Calcium 9.4 8.5 - 10.1 09/09/2018 12:11 PM [facility] mg/dL [facility] Bilirubin Total 0.6 0.2 - 1.3 mg/dL 09/09/2018 12:12 P [facility] Albumin 3.6 3.4 - 5.0 g/dL 09/09/2018 12:12 PM [facility] Protein Total 7.4 6.8 - 8.8 g/dL 09/09/2018 12:12 PM [facility] Alkaline Phosphatase 63 40 - 150 U/L 09/09/2018 12:12 PM [facility] ALT 102 (H) 0 - 50 U/L 09/09/2018 12:12 PM [facility] AST 55 (H) 0 - 45 U/L 09/09/2018 12:12 PM [facility] Comment: Specimen is hemolyzed which can falsely elevate AST. Analysis of a non-hemolyzed specimen may result in a l ower value. Specimen Anatomical Collection Method Collection Time Receive d Time (Source) Location / / Volume Laterality Blood specimen 09/09/2018 11:30 9 (specimen) AM [facility] 11:53 AM [facility] Sriram Omalley MD LAB - BLOOD ORDERABLES Performing Organization Address City/State/ZIP Code Phon e Number M [facility] [address] [id number] [facility] [address] [address], U [phone] CBC with platelets differential (09/09/2018 11:30 AM [facility]) [facility] gist Method Time Signature WBC 5.7 4.0 - 09/09/2018 [facility] 11.0 11:56 AM [facility] 10e9/L [facility] RBC Count 4.85 3.8 - 5.2 09/09/2018 [place] 10e12/L 11:56 AM [facility] Hemoglobin 13.7 11.7 - 09/09/2018 [facility] 15.7 g/dL 11:56 AM [facility] Hematocrit 39.2 35.0 - 09/09/2018 [facility] 47.0 % 11:56 AM [facility] MCV 81 78 - 100 09/09/2018 [facility] fl 11:56 AM [facility] MCH 28.2 26.5 - 09/09/2018 [facility] 33.0 pg 11:56 AM [facility] MCHC 34.9 31.5 - 09/09/2018 [facility] 36.5 g/dL 11:56 AM [facility] RDW 13.8 10.0 - 09/09/2018 [facility] 15.0 % 11:56 AM [facility] Platelet Count 215 150 - 450 09/09/2018 [facility] 10e9/L 11:56 AM [facility] Diff Method Automated 09/09/2018 [facility] Method 11:56 AM [facility] % Neutrophils 57.9 % 09/09/2018 [facility] 11:56 AM [facility] % Lymphocytes 33.7 % 09/09/2018 [facility] 11:56 AM [facility] % Monocytes 5.3 % 09/09/2018 [facility] 11:56 AM [facility] % Eosinophils 2.3 % 09/09/2018 [facility] 11:56 AM [facility] % Basophils 0.4 % 09/09/2018 [facility] 11:56 AM [facility] % Immature 0.4 % 09/09/2018 [facility] Granulocytes 11:56 AM [facility] Nucleated RBCs 0 0 /100 09/09/2018 [facility] 11:56 AM [facility] Absolute 3.3 1.6 - 8.3 09/09/2018 [facility] Neutrophil 10e9/L 11:56 AM [facility] Absolute 1.9 0.8 - 5.3 09/09/2018 [facility] Lymphocytes 10e9/L 11:56 AM [facility] Absolute 0.3 0.0 - 1.3 09/09/2018 [facility] Monocytes 10e9/L 11:56 AM [facility] Absolute 0.1 0.0 - 0.7 09/09/2018 [facility] Eosinophils 10e9/L 11:56 AM [facility] Absolute 0.0 0.0 - 0.2 09/09/2018 [facility] Basophils 10e9/L 11:56 AM [facility] Abs Immature 0.0 0 - 0.4 09/09/2018 [place] Granulocytes 10e9/L 11:56 AM [facility] Absolute 0.0 09/09/2018 [place] Nucleated RBC 11:56 AM [facility] Specimen Anatomical Collection Method Collection Time Receive d Time (Source) Location / / Volume Laterality Blood specimen 09/09/2018 11:30 9 (specimen) AM [facility] 11:53 AM [facility] Sriram Omalley MD LAB - BLOOD ORDERABLES Performing Organization Address City/State/ZIP Code Phon e Number M [facility] [address] [address] [phone] [facility] [address] [address], U [phone] (ABNORMAL) Blood gas arterial and oxyhgb (09/09/2018 11:27 AM [facility]) [facility] Method Time Signature pH Arterial 7.45 7.35 - 09/09/2018 [place] 7.45 pH 11:37 AM [facility] pCO2 Arterial 35 35 - 45 09/09/2018 [place] mm Hg 11:37 AM [facility] pO2 Arterial 110 (H) 80 - 105 09/09/2018 [place] mm Hg 11:37 AM [facility] Bicarbonate 24 21 - 28 09/09/2018 [place] Arterial mmol/L 11:37 AM [facility] Oxyhemoglobin 97 92 - 100 09/09/2018 [place] Arterial % 11:37 AM [facility] Base Excess Art 0.2 mmol/L 09/09/2018 [place] 11:37 AM [facility] Comment: Reference range: -9.0 to 1.8 Specimen Anatomical Collection Method Collection Time Receive d Time (Source) Location / / Volume Laterality Blood specimen 09/09/2018 11:27 9 (specimen) AM [facility] 11:32 AM [facility] Sriram Omalley MD LAB - BLOOD ORDERABLES Performing Organization Address City/State/ZIP Code Phon e Number M [facility] [address] [address] [phone] [facility] [address] [place] [address], U [phone] EKG 12 lead (09/09/2018 10:53 AM [facility]) [facility] gist Method Time Signature Interpretation ECG Click View RADIOLOGY Image link RESULTS to view waveform and result Specimen (Source) Anatomical Collection Method Collection Time Re ceived Time Location / / Volume Laterality 09/09/2018 10:53 AM [facility] Sriram Omalley MD ECG ORDERABLES Performing Organization Address City/State/ZIP Code Phon e Number RADIOLOGY RESULTS documented in this encounter Visit Diagnoses Diagnosis Subclinical hypothyroidism - Primary Other specified acquired hypothyroidism Weakness Other malaise and fatigue Dyspnea, unspecified type Generalized weakness Other malaise and fatigue documented in this encounter Administered Medications Inactive Administered Medications - up to 3 most recent administrations Medication Order MAR Action Action Date Dose Rate Site metFORMIN (GLUCOPHAGE-XR) 24 hr Given 09/10/2018 7:59 AM [facility] 2,0 00 mg tablet 2,000 mg 2,000 mg, Oral, DAILY WITH BREAKFAST, First dose (after last modification) on 09/10/18 at 0800, Do not crush. If the patient receives intravenous, iodinated contrast and patient GFR is greater than 60 ml/min, continue metformin. Contact provider for 'hold' or 'no hold' instructions if no GFR or if GFR is less than 60 ml/min. ondansetron (ZOFRAN) injection 4 mg 4 mg, Intravenous, EVERY 6 HOURS PRN, nausea, vomiting , Administer over 2-5 Minutes, Starting on 09/09/18 at 1524, This is Step 1 of nausea and vomiting management. If nausea not resolved in 15 minutes, go t o Step 2 prochlorperazine (COMPAZINE). Irritant. For ordered IV do ses 0.1-4 mg, give IV Push undiluted over 2-5 minutes. ondansetron (ZOFRAN-ODT) ODT tab 4 mg 4 mg, Oral, EVERY 6 HOURS PRN, nausea, v omiting, Starting on 09/09/18 at 1524, This is Step 1 of nausea and vomiting management. If n ausea not resolved in 15 minutes, go to Step 2 prochlorperazine (COMPAZINE). Do not push through foil backing. Peel back foil and gently remove. Place on to ngue immediately. Administration with liquid unnecessary W ith dry hands, peel back foil backing and gently remove tablet; do not push oral d isintegrating tablet through foil backing; administer immediately on tongue and oral disintegrati ng tablet dissolves in seconds; then swallow with saliva; liquid not required . prochlorperazine (COMPAZINE) injection 1 0 mg 10 mg, Intravenous, EVERY 6 HOURS PRN, nausea, vomitin g, Administer over 1-2 Minutes, Starting on 09/09/18 at 1526, This is Step 2 of nausea and vomiting management. Give if nausea not resolved 15 minutes aft er giving ondansetron (ZOFRAN). If nausea not resolved in 15 minutes, go to Step 3 metoclopramide (REGLAN), if ordered. For ordered IV dos es 0.1-10 mg, give IV Push undiluted. Each 5mg over 1 minute. prochlorperazine (COMPAZINE) Suppository 25 mg 25 mg, Rectal, EVERY 12 HOURS PRN, nausea, vomiting, S tarting on 09/09/18 at 1526, This is Step 2 of nausea and vomit ing management. Give if nausea not resolved 15 minutes after giving ondansetron (ZOF RAN). If nausea not resolved in 15 minutes, go to Step 3 metoclopramide (REGLAN), if ordered. prochlorperazine (COMPAZINE) tablet 10 m g 10 mg, Oral, EVERY 6 HOURS PRN, vomiting , Starting on 09/09/18 at 1526, This is Step 2 of nausea and vomiting management . Give if nausea not resolved 15 minutes after giving ondansetron (ZOFRAN). If na usea not resolved in 15 minutes, go to Step 3 metoclopramide (REGLAN), if ordered. senna-docusate (SENOKOT-S/PERICOLACE) 8. 6-50 MG per tablet 1 tablet 1 tablet, Oral, 2 TIMES DAILY PRN, const ipation, Starting on 09/09/18 at 1526, If no bowel movement in 24 hours, increa se to 2 tablets PO. Hold for loose stools. This is the first step of a three step constipation tr eatment. senna-docusate (SENOKOT-S/PERICOLACE) 8. 6-50 MG per tablet 2 tablet 2 tablet, Oral, 2 TIMES DAILY PRN, const ipation, Starting on Mon09/09/18 at 1526, Hold for loose stools. This is the first step of a thr ee step constipation treatment. sodium chloride (PF) 0.9% PF flush 3 mL Given 09/09/2018 4:26 PM [facility] 3 mLs 3 mL, Intracatheter, EVERY 8 HOURS, First dose on Mon09/09/18 at 1527, And Q1H PRN, to lock peripheral IV dormant line. sodium chloride 0.9% infusion New Bag 09/09/2018 4:33 PM [facility] 100 mL/hr at 100 mL/hr, Intravenous, CONTINUOUS, Starting on Mon09/09/18 at 1527, Until Mon09/10/18 at 0126 documented in this encounter Active and Recently Administered Medications Times are shown in [facility]. Scheduled Medication Order 09/08/2018 09/09/2018 09/10/2018 metFORMIN (GLUCOPHAGE-XR) 24 hr tablet 2,000 mg 0759 (Given - Provider: Minnie Perrin RN) 2,000 mg, Oral, DAILY WITH BREAKFAST, Fi rst dose on Mon09/10/18 at 0800, Do not crush. If the patient receives intravenous, iodinated contrast and patient GFR is greater than 60 ml/min, continue metform in. Contact provider for 'hold' or 'no h old' instructions if no GFR or if GFR is less than 60 ml/min. sodium chloride (PF) 0.9% PF flush 3 mL 1626 (Given - Provider: Igor Salazar RN)2316 (Not Given - Provider: Jimmy Nolasco RN - Reason: IV Infusing) 0648 (Not Given - Provider: Jimmy Nolasco, MIKE - Reason: Patient sleeping) 3 mL, Intracatheter, EVERY 8 HOURS, Firs t dose on Mon09/09/18 at 1527, And Q1H PRN, to lock peripheral IV dormant line. Continuous Medication Order 09/08/2018 09/09/2018 09/10/2018 sodium chloride 0.9% infusion 1633 (New Bag - Pr ovider: Igor Salazar RN) at 100 mL/hr, Intravenous, CONTINUOUS, S tarting Mon09/09/18 at 1527, Until Mon09/10/18 at 0126 PRN Medication Order 09/08/2018 09/09/2018 09/10/2018 ipratropium - albuterol 0.5 mg/2.5 mg/3 mL (DUONEB) neb solution 3 mL 3 mL (1 vial), Nebulization, EVERY 6 AZAR RS PRN, shortness of breath / dyspnea, wheezing, Starting [place] 09/09/18 at 1523 lidocaine (LMX4) cream Topical, EVERY 1 HOUR PRN, pain, with VA D insertion or accessing implanted port., Starting [place] 09/09/18 at 1524, Do NOT give if patient has a history of allergy to any local anesthetic or any [place] pro duct. Apply at least 30 minutes prior to VAD insertion or port access. In divided doses as needed for size of site for VAD insertion with MAX Dose: 2.5 g (?? of 5 g tube). lidocaine 1 % 0.1-1 mL 0.1-1 mL, Other, EVERY 1 HOUR PRN, mild pain with VAD insertion., Starting [place] 09/09/18 at 1524, Do NOT give if patient has a history of allergy to any local anesthetic or any [place] product. MAX dose 1 mL subcutaneous OR intradermal in divided doses as needed for V AD insertion. melatonin tablet 1 mg 1 mg, Oral, AT BEDTIME PRN, sleep, Start ing [place] 09/09/18 at 1524, Do not give unless at least 6 hours of uninterrupted sleep is expected. naloxone (NARCAN) injection 0.1-0.4 mg 0.1-0.4 mg, Intravenous, EVERY 2 MIN PRN , opioid reversal, Starting [place] 09/09/18 at 1524, For respiratory rate LESS than or EQUAL to 8. Partial reversal dose: 0.1 mg titrated q 2 minutes for Analgesia Si de Effects Monitoring Sedation Level of 3 (frequently drowsy, arousable, drifts to sleep during conversation).Full reversal dose: 0.4 mg bolus for Analgesia Side Effects Monitoring Sedation Level of 4 ( somnolent, minimal or no response to sti mulation). For ordered IV doses 0.1-2mg give IVP. Give each 0.4mg over 15 seconds in emergency situations. For non- emergent situations further dilute in 9mL of NS to facilitate titration of response. ondansetron (ZOFRAN) injection 4 mg(Linked Group 1) 4 mg, Intravenous, EVERY 6 HOURS PRN, na usea, vomiting, Administer over 2-5 Minutes, Starting 09/09/18 at 1524, This is Step 1 of nausea and vomiting management. If nausea not resolved in 15 minutes, go to Step 2 prochlorperazine (COMPAZIN E). Irritant. For ordered IV doses 0.1-4 mg, give IV Push undiluted over 2-5 minutes. ondansetron (ZOFRAN-ODT) ODT tab 4 mg(Linked Group 1) 4 mg, Oral, EVERY 6 HOURS PRN, nausea, v omiting, Starting 09/09/18 at 1524, This is Step 1 of nausea and vomiting management. If nausea not resolved in 15 minutes, go to Step 2 prochlorperazine (COMP AZINE). Do not push through foil backing . Peel back foil and gently remove. Place on tongue immediately. Administration with liquid unnecessary With dry hands, peel back foil backing and gently remove t ablet; do not push oral disintegrating t ablet through foil backing; administer immediately on tongue and oral disintegrating tablet dissolves in seconds; then swallow with saliva; liquid not required. prochlorperazine (COMPAZINE) injection 10 mg(Linked Group 2) 10 mg, Intravenous, EVERY 6 HOURS PRN, n ausea, vomiting, Administer over 1-2 Minutes, Starting 09/09/18 at 1526, This is Step 2 of nausea and vomiting management. Give if nausea not resolved 15 minut es after giving ondansetron (ZOFRAN). If nausea not resolved in 15 minutes, go to Step 3 metoclopramide (REGLAN), if ordered. For ordered IV doses 0.1-10 mg, give IV Push undiluted. Each 5mg over 1 minute. prochlorperazine (COMPAZINE) Suppository 25 mg(Linked Group 2) 25 mg, Rectal, EVERY 12 HOURS PRN, nause a, vomiting, Starting 09/09/18 at 1526, This is Step 2 of nausea and vomiting management. Give if nausea not resolved 15 minutes after giving ondansetron (ZOFR AN). If nausea not resolved in 15 minute s, go to Step 3 metoclopramide (REGLAN), if ordered. prochlorperazine (COMPAZINE) tablet 10 mg(Linked Group 2) 10 mg, Oral, EVERY 6 HOURS PRN, vomiting , Starting 09/09/18 at 1526, This is Step 2 of nausea and vomiting management. Give if nausea not resolved 15 minutes after giving ondansetron (ZOFRAN). If adarsh sea not resolved in 15 minutes, go to St ep 3 metoclopramide (REGLAN), if ordered. senna-docusate (SENOKOT-S/PERICOLACE) 8. 6-50 MG per tablet 1 tablet(Linked Group 3) 1 tablet, Oral, 2 TIMES DAILY PRN, const ipation, Starting 09/09/18 at 1526, If no bowel movement in 24 hours, increase to 2 tablets PO. Hold for loose stools. This is the first step of a three step constipation treatment. senna-docusate (SENOKOT-S/PERICOLACE) 8. 6-50 MG per tablet 2 tablet(Linked Group 3) 2 tablet, Oral, 2 TIMES DAILY PRN, const ipation, Starting 09/09/18 at 1526, Hold for loose stools. This is the first step of a three step constipation treatment. sodium chloride (PF) 0.9% PF flush 3 mL 3 mL, Intracatheter, EVERY 1 MIN PRN, li ne flush, Starting 09/09/18 at 1524, for peripheral IV flush post IV meds Linked Groups Order Group 1: ondansetron (ZOFRAN-ODT) ODT tab 4 mgJump to med 4 mg, Oral, EVERY 6 HOURS PRN, nausea, v omiting, Starting 09/09/18 at 1524
This is Step 1 of nausea and vomiting management. If nausea not resolved in 15 minutes, go to St ep 2 prochlorperazine (COMPAZINE). Do no t push through foil backing. Peel back foil and gently remove. Place on tongue immediately. Administration with liquid unnecessary With dry hands, peel b ack foil backing and gently remove table t; do not push oral disintegrating tablet through foil backing; administer immediately on tongue and oral disintegrating tablet dissolves in seconds; then swallow with saliva; liquid not required.
Or ondansetron (ZOFRAN) injection 4 mgJump to med 4 mg, Intravenous, EVERY 6 HOURS PRN, na usea, vomiting, Administer over 2-5 Minutes, Starting 09/09/18 at 1524
This is Step 1 of nausea and vomiting management. If nausea not resolved in 15 minutes, go to Step 2 prochlorperazine (COMPAZINE). Irritant. For ordered IV doses 0.1-4 mg, give IV Push undiluted over 2-5 minutes.
Group 2: prochlorperazine (COMPAZINE) injection 10 mgJump to med 10 mg, Intravenous, EVERY 6 HOURS PRN, n ausea, vomiting, Administer over 1-2 Minutes, Starting 09/09/18 at 1526
This is Step 2 of nausea and vomiting management. Give if nausea not resolved 15 minutes after giving ondansetron (ZOF RAN). If nausea not resolved in 15 minutes, go to Step 3 metoclopramide (REGLAN), if ordered. For ordered IV doses 0.1-10 mg, give IV Push undiluted. Each 5mg over 1 minute.
Or prochlorperazine (COMPAZINE) tablet 10 mgJump to med 10 mg, Oral, EVERY 6 HOURS PRN, vomiting , Starting 09/09/18 at 1526
This is Step 2 of nausea and vomiting management. Give if nausea not resolved 15 minutes after giving ondansetron (ZOFRAN) . If nausea not resolved in 15 kurtis johnathan, go to Step 3 metoclopramide (REGLAN), if ordered.
Or prochlorperazine (COMPAZINE) Suppository 25 mgJump to med 25 mg, Rectal, EVERY 12 HOURS PRN, nause a, vomiting, Starting 09/09/18 at 1526
This is Step 2 of nausea and vomiting management. Give if nausea not resolved 15 minutes after giving ondansetr on (ZOFRAN). If nausea not resolved in 15 minutes, go to Step 3 metoclopramide (REGLAN), if ordered.
Group 3: senna-docusate (SENOKOT-S/PERICOLACE) 8.6-50 MG per tablet 1 tabletJump to med 1 tablet, Oral, 2 TIMES DAILY PRN, const ipation, Starting 09/09/18 at 1526
If no bowel movement in 24 hours, increase to 2 tablets PO. Hold for loose stools. This is the first step of a three step constipation treatment.
Or senna-docusate (SENOKOT-S/PERICOLACE) 8.6-50 MG per tablet 2 tabletJump to med 2 tablet, Oral, 2 TIMES DAILY PRN, const ipation, Starting 09/09/18 at 1526
Hold for loose stools. This is the first step of a three step constipation treatment.
documented in this encounter Additional Health Concerns Assessment Noted Time PHQ-9 Depression Total Score: 4 08/24/2018 11:10 AM CS T documented as of this encounter Care Teams Rn Anesthetist Relationship Specialty Start Date End Date Krystin Christie PCP - General Nurse Practitioner 12/15/17 09/08/19 SAURABH Engel POTABLE WATER TREATMENT OPERATOR [address] [facility] [address] [address] Krystin Christie PCP - Assigned PCP 08/26/18 09/18/18 SAURABH Engel POTABLE WATER TREATMENT OPERATOR [address] [facility] [address] [place] [address] Tali Vilchis MD INTERNAL MEDICINE - 04/10/15 ENDOCRINOLOGY, DIABETES [address] [facility] & METABOLISM [address] [place], [place] [address] Anat Fuller MD Internal Medicine 04/10/1509/16 MD Renee [address] [facility] [address] [place], [place] [address] Janny Hutton Physician Dry Press Operator Helper Physician Dry Press Operator Helper 06/30/15 09/17/19 CARLA Mckeon [address] [facility]PART[facility] [address] [place] [address] Florecita Bryan, RN Lead Casing Worker 08/17/18 10/24/18 Krystin Christie Assigned PCP 08/26/18 01/28/21 SAURABH Engel POTABLE WATER TREATMENT OPERATOR [address] [facility] [address] [place] [phone] documented as of this encounter
--- OUTSIDE RECORDS SUMMARY | 2022-05-09 11:03 | XMS_ITS | Encounter Summary ---
:1955 Author Organization [place] Address [facility] [place] [address] Care Team Providers Name Role Phone Tali Vilchis MD Unavailable Anat Fuller MD Unavailable [phone] Janny Hutton PA-C Unavailable [phone] Krystin Christie APRN [facility] Primary Care Provider [phone] Florecita Bryan RN Unavailable Krystin Christie APRN [facility] Unavailable [phone] Krystin Christie APRN [facility] Unavailable [phone] Sonja Tinajero [facility] Unavailable [phone] Kelly De Oliveira [facility] Unavailable Eduin Wilhelm Unavailable Unavailable Cecilia Aleman MD Unavailable [phone] Thalia Glass MD Unavailable [phone] Vinita Linares RN Unavailable Unavailable PratikKrystin newby APRN [facility] Primary Care Provider [phone] Deyanira Stewart [facility] Unavailable Nadira Nichols RN Unavailable Unavailable Frank Argueta Unavailable Unavailable Thalia Glass MD Unavailable Anat Fuller MD Unavailable Eric Abdi MD Unavailable [phone] Cecilia Aleman MD Unavailable [phone] Sonja Tinajero [facility] Unavailable [phone] Vidhi Paiz APRN HEADING MACHINE OPERATOR Unavailable [phone] Krystin Christie APRN HEADING MACHINE OPERATOR Unavailable +[phone] Sea Tsai DO Unavailable [phone] Vidhi Paiz APRN HEADING MACHINE OPERATOR Unavailable +[phone] Sea Tsai DO Unavailable [phone] Stephanie Canela MD Unavailable [phone] Krystin Christie APRN HEADING MACHINE OPERATOR Unavailable [phone] Dima Hidalgo MD Unavailable Dima Hidalgo MD Unavailable Reason for Visit Reason Onset Date Comments Refill Request 09/04/2018 fluticasone-salmeter ol (AIRDUO RESPICLICK) 113-14 MCG/ACT inhaler *DRUG CHANGE REQUEST* Encounter Details Date Type Department Care Team Description 09/04/2018 Refill [facility] Krystin Christie Refill [facility] Lola Egnel APRN HEADING MACHINE OPERATOR (fluticasone-salmeterol [address] [place] [address] [facility] (AIRD UO RESPICLICK) [facility] 113-14 MCG/ACT inhaler [address] [place] [address] *DRUG CHANGE REQUEST*) [place] [address] [phone] Social History Tobacco Use Types Packs/Day Years Used Date Smoking Tobacco: Never Smokeless Tobacco: Never Alcohol Use Standard Drinks/Week Comments No 0 (1 standard drink = 0.6 oz pure alcoho l) Sex Assigned at Date Recorded Female 08/17/2018 10:39 PM INFORMATION STRATEGIST documented as of this encounter Miscellaneous Notes Telephone Encounter - Krystin Christie APRN CNP - 09/10/2018 9:13 AM INFORMATION STRATEGIST Thanks! I will await her discharge then place the order and ask her about coupons, etc. RMATION STRATEGIST Telephone Encounter - Rose Marie Salas RPH - 09/10/2018 8:36 AM INFORMATION STRATEGIST No it looks like we decided on the Breo Ellipta not the Airduo respiclick per our last note and I see the insurance response below includes this. What was her copay, did she try the coupon available online? I am not able to put an order in with her being inpatient. RMATION STRATEGIST Telephone Encounter - Krystin Christie APRN CNP - 09/06/2018 9:47 AM INFORMATION STRATEGIST [facility] had been working with the patient to find coverage. I believe we settled on this drug. Please advise. RMATION STRATEGIST Telephone Encounter - Minnie Randle - 09/04/2018 12:06 PM CST Message: DRUG NOT COVERED BY PATIENT PLAN. THE PREFERRED ALTERNATIVE IS SYMBICORTAER, ADVAIRDISKUAER, BREOELLITAINH, ADVAIRHFAAER. PLEASE CALL/FAX THE PHARMACY TO CHANGE MEDICATION ALONG WITH STRENGTH, DIRECTIONS, QUANTITY AND REFILLS. RMATION STRATEGIST documented in this encounter Plan of Treatment Upcoming Encounters Date Type Specialty Care Team Description 05/19/2022 Office Visit ENT Dima Hidalgo M D [address] [place], [place] [address] (Wo rk) 08/02/2022 Office Visit Neurology Yair Campos MD [address] [place] [id number] (Wo rk) documented as of this encounter Visit Diagnoses Diagnosis Mild persistent asthma without complicat ion Unspecified asthma documented in this encounter Additional Health Concerns Assessment Noted Time PHQ-9 Depression Total Score: 4 08/24/2018 11:10 AM CS T documented as of this encounter Care Teams Bottom Ironer Relationship Specialty Start Date End Date Krystin Christie PCP - General Nurse Practitioner 12/15/17 09/08/19 SAURABH Engel HEADING MACHINE OPERATOR [address] [facility] [place] [address] Krystin Christie PCP - Assigned PCP 08/26/18 09/18/18 SAURABH Engel HEADING MACHINE OPERATOR [address] [facility] [place] [id number] Krystin Christie PCP - General Nurse Practitioner 09/18/19 SAURABH Engel HEADING MACHINE OPERATOR [address] [facility] [place] [address] Tali Vilchis MD INTERNAL MEDICINE - 04/10/15 MD Kaitlynn ENDOCRINOLOGY, [address] [facility] [address] [place], [place] [address] Anat Fuller MD Internal Medicine 04/10/15 09/17/19 Krystin Duran MD [address] [facility] [place], [place] [id number] Janny Hutton Physician Enterprise Application Administrator Physician Enterprise Application Administrator 06/30/15 09/17/19 CARLA Mckeon [address] [facility] [address] [place], [place] [phone] Florecita Bryan, Lead Trade Manager 08/17/18 RN Krystin Christie Assigned PCP 08/26/18 01/28/21 SAURABH Engel HEADING MACHINE OPERATOR [address] [facility] [place] [id number] Sonja Tinajero Pharmacist Pharmacist 12/24/18 09/17/19 Dev, [facility] [address] [facility] [address] [place], [place] [id number] Kelly De Oliveira, Pharmacist Pharmacist 01/21/19 06/24/19 [facility] [address] [place], [place] [address] Eduin Wilhelm Personal Advocate & 06/17/19 09/17/19 Liaison (PAL) Cecilia Aleman MD Urology 07/22/19 09/17/19 MD Lyly [address] [facility] [address] [place] [address] Joan Monroe MD Obstetrics 07/22/19 09/17/19 [place] [address] [address] Vinita Linares, RN Registered Nurse 07/22/19 09/17/19 Deyanira Stewart, Pharmacist Pharmacist 01/13/20 08/24/[address] [facility] [address] [place], [place] [phone] Nadira Nichols, MIKE Lead Trade Manager Primary Care - CC 01/21/20 03/02/20 Frank Arugeta Community Health Worker 01/21/2002/14 Joan Monroe, Assigned OBGYN Provider 05/08/2001/16/21 Thalia Engel MD [address] [facility] [address] [place], [place] [address] Anat Fuller Assigned Gastroenterology 05/08/20 12/12/20 Krystin Duran MD Provider [address] [facility] [address] [place] [address] Eric Abdi Assigned Musculoskeletal 05/08/20 03/27/21 MD Joo Provider TRI[place] [address] [address] [place] [id number] Cecilia Aleman Assigned Surgical 05/08/20 03/06/21 MD Lyly Provider [address] [facility] [address] [place], [place] [phone] Sonja Tinajero Ka Pharmacist 08/24/20 Dev, [facility] [address] [facility] [address] [place] [id number] Vidhi Paiz Assigned PCP 01/29/21 07/10/21 SAURABH Turner HEADING MACHINE OPERATOR [address] [facility] [place] [id number] Krystin Christie Assigned PCP 07/11/21 07/24/21 SAURABH Engel HEADING MACHINE OPERATOR [address] [facility] [address] [place] [id number] MD Eulalio Neurology 08/04/21 Sea Fink DO [address] [place] [id number] Vidhi Paiz Assigned PCP 07/25/21 01/07/22 SAURABH Turner HEADING MACHINE OPERATOR [address] [place] [address] Isha Tsai Neuroscience 10/10/21 Sea Fink DO Provider [address] [place] [id number] Stephanie Canela Assigned OBGYN Provider 12/05/21 MD Alee [address] [place] [address] Krystin Christie Assigned PCP 01/08/22 SAURABH Engel HEADING MACHINE OPERATOR [address] [facility] [place] [id number] Dima Hidalgo MD MD Otolaryngology 02/15/22 [facility] [address] [place] [id number] Dima Hidalgo MD Assigned Surgical 03/12/22 [facility] [place] [id number] documented as of this encounter
--- OUTSIDE RECORDS SUMMARY | 2022-05-09 11:03 | XMS_ITS | Encounter Summary ---
:1955 Author Organization [place] Address [facility] [place] [address] Care Team Providers Name Role Phone Tali Vilchis MD Unavailable Anat Fuller MD Unavailable [phone] Janny Hutton PA-C Unavailable [phone] Krystin Christie APRN FIBERLINE SUPERVISOR Primary Care Provider Florecita Bryna RN Unavailable Krystin Christie APRN FIBERLINE SUPERVISOR Unavailable [phone] Krystin Christie APRN FIBERLINE SUPERVISOR Unavailable [phone] Reason for Visit Reason Comments Medication Therapy Management Med Therapy Management - Closed Specialty Diagnoses / Procedures Referred By Contact Refer red To Contact Diagnoses Type 2 diabetes mellitus with complication, without long-term current use of insulin (H) Krystin Christie [facility] [employer]AF[employer] NET MAKER FIBERLINE SUPERVISOR [facility] [address] [address] [place] [address] Referral ID Status Reason Start Date Expiration Date Visits Requ ested Visits Authorized [id number] Closed 08/17/2018 08/17/2019 1 1 Encounter Details Date Type Department Care Team Description 08/29/2018 Office Visit [facility] Rose Marie Salas Type 2 diabetes mellitus with complication, without long-term current use of insulin (H) (Primary Dx); Clinic Lola Hoffne [facility] Mild persistent asthma without complicat ion; [address] Hyperlipidemia LDL goal <70; [address] [place] [address] Takes dietary supplements; [address] Sleep apnea, unspecified typ e [place] [phone] (Work) [phone] Social History Tobacco Use Types Packs/Day Years Used Date Smoking Tobacco: Never Smokeless Tobacco: Never Alcohol Use Standard Drinks/Week Comments No 0 (1 standard drink = 0.6 oz pure alcoho l) Sex Assigned at Date Recorded Female 08/17/2018 10:39 PM BUILDING ANALYST/SUPERVISOR documented as of this encounter Last Filed Vital Signs Vital Sign Reading Time Taken Comments Blood Pressure 123/74 08/29/2018 1:41 PM BUILDING ANALYST/SUPERVISOR Pulse 92 08/29/2018 1:41 PM BUILDING ANALYST/SUPERVISOR Temperature - - Respiratory Rate - - Oxygen Saturation - - Inhaled Oxygen Concentration - - Weight 85.5 kg (188 lb 8 oz) 08/29/2018 1:41 PM BUILDING ANALYST/SUPERVISOR Height - - Body Mass Index 34.48 08/24/2018 11:07 AM BUILDING ANALYST/SUPERVISOR documented in this encounter Patient Instructions Patient InstructionsLior Sonjashobha Méndez, [facility] - 08/29/2018 1:30 PM BUILDING ANALYST/SUPERVISOR Recommendations from today's MTM visit: MTM (medication therapy management) is a service provided by a clinical pharmacist designed to help you get the most of out of your medicines. Today we reviewed what your medicines are for, how to know if they are working, that your medicines are safe and how to make your medicine regimen as easy as possible. Great job decreasing your blood sugars! 1. OnApp is another resource. 2. Your goal is per meal is 45-60g of carbohydrate. For snacks keep it less than 15 g carbohydrates. Diabetes Goals: Home Monitoring of Blood Sugars: FBG 80-130 mg/dL Hemoglobin A1C: Less than 7%. Things you can do to help lower your blood sugars: Diet: Try to fill your plate at least half-full with vegetables, fill one- quarter full with lean meats or protein, and also make sure you get at least some carbohydrate with every meal. Exercise: 30 minutes per day of anything that will increase your heart rate and make you break a sweat! Gardening, walking, cleaning the house, changing the oil in your car, etc. If you feel like 30 minutes per day is too much, start small. Even lifting canned foods or working your arms with a resistance band in front of the TV can help. 3. Please go get your eyes check at least every year. 4. Follow up with the gastroenterology for continue workup. 5. Please check your blood sugar when you first wake up and in the day either before meals or 2 hours after eating. I would recommend setting an alarm for 2 hours after you have eaten. You can do it! 6. Increase the metformin to 4 tablets daily. Try using a pill box to help you remember this. 7. I will talk to Krystin about sending a new prescription for an inhaler. Next MTM visit: 2 weeks To schedule another MTM appointment, please call the clinic directly or you may call the MTM scheduling line at [phone] or toll-free at . My Clinical Pharmacist's contact information: It was a pleasure talking with you today! Please feel free to contact me with any questions or concerns you have. Sonja Tinajero, PharmD Pharmaceutical Care Resident Pager: [phone] You may receive a survey about the MTM services you received. I would appreciate your feedback to help me serve you better in the future. Please fill it out and return it when you can. Your comments will be anonymous. DING ANALYST/SUPERVISOR documented in this encounter Progress Notes Rose Marie Salas, BOB - 08/29/2018 1:30 PM CST Images from the original note were not included. SUBJECTIVE/OBJECTIVE: Becki Ridley is a 63 year old female coming in for a [facility]. [facility] (unknown etiology). Chief Complaint: 1) wondering about alternatives to Victoza which she cannot afford ($160/2 months) and 2) setting a plan for control of her diabetes Personal Healthcare Goals: keeping with strict diet and keeping blood sugars down. Allergies/ADRs: Reviewed in Epic. No new allergies Tobacco: No tobacco use Alcohol: none Caffeine: 1 cup /day usually Activity: playing with grand kids. Plans to start at [employer] again. PMH: recent hospitalization with elevated LFTs, lipase, weakness, and abdominal bloating of unknown etiology. Medication Adherence/Access: Patient takes medications directly from bottles. Patient takes medications 1 time(s) per day. Per patient, Previously had trouble with taking medication a lot. She has been better now. Was previously forgetting to take last pill of metformin frequently (was splitting up 3 AM and 1 PM) The patient fills medications at [place]: [facility] Diabetes: Recently she was taking 3 metformin in the AM an 1 in the PM to minimize some of the GI issues but was frequently forgetting to take evening dose so she has been trying to just take them all together now. Holding glipizide ER 5 mg and Victoza 0.6mg daily (never started) per GI recommendations and PCP with elevated liver enzymes. S/E: diarrhea, nausea from metformin. Pt has met with CDE in the past but felt overwhelmed with visit due to too many changes at once. Pt also endorses memory impairment, therefore making too many changes for her is very overwhelming. SMBG: one time daily. Ranges (based on glucometer readings): Patient is not experiencing hypoglycemia Recent symptoms of high blood sugar? vision changes, fatigue and nausea Eye exam: due Foot exam: up to date ACEi/ARB: No. Urine Albumin: Lab Results Component Value Date UMALCR 6.34 08/16/2018 Aspirin: Not taking due to elevated LFTs/increased bleeding risk Diet/Exercise: She notes she needs to be drinking more fluids. She states she has been on a very lowcarb diet which her daughter has been very helpful with (cauliflower substitutes for grains and other help with diet). Lab Results Component Value Date A1C 11.6 08/16/2018 A1C 9.7 09/28/2016 A1C 9.2 06/30/2015 A1C 9.0 07/04/2011 A1C 6.3 03/02/2011 Asthma: Current asthma medications: Breo Ellipta 1 puff daily. DuoNebs, and Albuterol as PRNs (not currently using). Asthma triggers include: Gastric Reflux. SOB when stomach is bloated. Pt reports the following symptoms: none. AAP on file: Yes PIF was completed today: No ACT Total Scores 08/16/2018 ACT TOTAL SCORE (Goal Greater than or Equal to 20) 22 In the past 12 months, how many times did you visit the emergency room for your asthma without beingadmitted to the hospital? 3 In the past 12 months, how many times were you hospitalized overnight because of your asthma? 0 Hyperlipidemia: Not currently on a statin. The 10-year ASCVD risk score (Debby DE OLIVEIRA Jr., et al., 2013) is: 8.9% Values used to calculate the score: Age: 63 years Sex: Female Is Non- : No Diabetic: Yes Tobacco smoker: No Systolic Blood Pressure: 123 mmHg Is BP treated: No HDL Cholesterol: 46 mg/dL Total Cholesterol: 207 mg/dL Recent Labs Lab Test 08/16/18 1731 CHOL 207* HDL 46* LDL 135* TRIG 130 Liver Function Studies - Recent Labs Lab Test 08/24/18 1136 PROTTOTAL 7.0 ALBUMIN 3.3* BILITOTAL 0.5 ALKPHOS 62 AST 53* ALT 126* Sleep Apnea: Pt is not using a cpap. Without the humidifier component of machine, she is unable to use because it makes her mouth too dry but this part of the machine is not covered and she has to pay for it herself. Supplements: currently taking vitamin d 1000 units daily. No concerns noted. Today's Vitals: BP 123/74 (BP Location: Right arm, Patient Position: Sitting) Pulse 92 Wt 188 lb8 oz (85.5 kg) BMI 34.48 kg/m?? Estimated Creatinine Clearance: 86 mL/min (based on SCr of 0.68 mg/dL). Last Comprehensive Metabolic Panel: Sodium Date Value Ref Range Status 08/24/2018 135 133 - 144 mmol/L Final Potassium Date Value Ref Range Status 08/24/2018 4.0 3.4 - 5.3 mmol/L Final Chloride Date Value Ref Range Status 08/24/2018 106 94 - 109 mmol/L Final Carbon Dioxide Date Value Ref Range Status 08/24/2018 22 20 - 32 mmol/L Final Anion Gap Date Value Ref Range Status 08/24/2018 7 3 - 14 mmol/L Final Glucose Date Value Ref Range Status 08/24/2018 198 (H) 70 - 99 mg/dL Final Comment: Non Fasting Urea Nitrogen Date Value Ref Range Status 08/24/2018 20 7 - 30 mg/dL Final Creatinine Date Value Ref Range Status 08/24/2018 0.68 0.52 - 1.04 mg/dL Final GFR Estimate Date Value Ref Range Status 08/24/2018 >90 >60 mL/min/[1.73_m2] Final Comment: Non GFR Calc Starting 07/03/2018, serum creatinine based estimated GFR (eGFR) will be calculated using the Chronic Kidney Disease Epidemiology Collaboration (CKD-EPI) equation. Calcium Date Value Ref Range Status 08/24/2018 9.2 8.5 - 10.1 mg/dL Final Estimated Creatinine Clearance: 86 mL/min (based on SCr of 0.68 mg/dL). ASSESSMENT: Current medications were reviewed today. Medication Adherence: good, no issues identified Diabetes: Needs improvement. Patient is not currently meeting an A1c goal of <7%. She has been doing very well controlling her most recent blood sugars with dietary changes and will benefit from continuing this lifestyle change as well as taking the full dose of her metformin. Pill boxes were provided today to help with this. Given highly elevated HgbA1c of 11.6% and history of uncontrolled blood sugars, and uncertain safety of other oral medications and GLP-1s with elevated liver enzymes, would consider initiating a basal insulin at next visit. She would like to continue on metformin and dietary changes before trialing an insulin. She will also benefit from more consistent checking of her blood sugars (in the morning for fasting and 2 hours after meals and at night) to gauge her control throughout the day. Diabetes goals (A1c, fasting and post-prandial blood glucose) were reviewed with patient today. She is due for an eye exam. Hyperlipidemia: Needs improvement. A moderate intensity statin is indicated given diabetes and LDL > 70 mg/dL (per 2018 Blood Cholesterol Guideline). Though she has a history of VILLAREAL (continued elevated LFTs), there are studies that demonstrate safety of statin in VILLAREAL. HMG-CoA (0-hcmufnh-5-bqcxoa-jxutgwfl-fbsdstxf A) reductase inhibitors (statins) have on lipids, they improve insulin sensitivity, decrease production of advanced glycation endproducts (AGEs), and display anti-inflammatory effects, all of which may be helpful in treating the steatosis and inflammationassociated with VILLAREAL - SAM Tapia et al. (2017). Treating nonalcoholic fatty liver disease in patients with type 2 diabetes mellitus: a review of efficacy and safety. Therapeutic advances in endocrinology and metabolism, 9(1), 15-28. Per 2018 Blood Cholesterol Guidelines, A thorough evaluation for nonstatin etiologies is warranted when significant transaminase elevation persists. Importantly, statins are not contraindicated in patients with increased ASCVD risk with chronic, stable liver disease (e.g., nonalcoholic fatty liver), and limited data suggest potential benefit (S5-16-S5-18).. Asthma: stable. She would benefit from a refill of a controller inhaler prescription given she is currently using samples. Otherwise, her respiratory symptoms are well controlled. Sleep apnea: Needs improvement. She would benefit from following up with sleep clinic. Supplements: Stable. PLAN: Post Discharge Medication Reconciliation Status: discharge medications reconciled and changed, per note/orders (see AVS). Diabetes: 1. Pt will use pill boxes to remember to take all 4 metformin tablets daily. 2. Pt will continue with diet changes with carbohydrate goal of 45g-60g per meal. 3. Pt to try to get more exercise - visiting [employer] again is a great start 4. Pt will make sure to get her eyes checked yearly 5. Pt will check blood sugars more often - in the morning before food and and 2 hours after meals Asthma: 1. MTM to speak with Krystin Olista about new Breo Ellipta prescription - Verbal from Krystin Pratik on 08/30/18. Future considerations: Add a basal insulin Flu, pneumonia and shingles vaccine. Statin therapy I spent 60 minutes with this patient today. All changes were made via collaborative practice agreement or offered to PCP via cc'd chart. A copy of the visit note was provided to the patient's primary care provider. Will follow up in 2 weeks. The patient was given a summary of these recommendations as an after visit summary. Modesto Hearn PharmD IV Student Sonja Tinajero PharmD Pharmaceutical Care Resident Pager: [phone] [facility] by [facility] Tinajero. I have reviewed and agree with the resident noteand plan of care. Rose Marie Salas PharmD [facility] Medication Therapy Management Provider Pager #[phone] DING ANALYST/SUPERVISOR Rose Marie Salas RP - 08/29/2018 1:30 PM CST DTP#1 not accepted by patient due to cost documented in this encounter Miscellaneous Notes Addendum Note - Sonja Tinajero, [facility] - 08/29/2018 1:30 PM BUILDING ANALYST/SUPERVISOR Addended by: SONJA TINAJERO on: 08/30/2018 11:51 AM Modules accepted: Orders DING ANALYST/SUPERVISOR Addendum Note - Sonja Tinajero [facility] - 08/29/2018 1:30 PM BUILDING ANALYST/SUPERVISOR Addended by: SONJA TINAJERO on: 08/30/2018 01:51 PM Modules accepted: Orders DING ANALYST/SUPERVISOR Addendum Note - Sonja Tinajero [facility] - 08/29/2018 1:30 PM BUILDING ANALYST/SUPERVISOR Addended by: SONJA TINAJERO on: 08/30/2018 02:09 PM Modules accepted: Orders DING ANALYST/SUPERVISOR documented in this encounter Plan of Treatment Upcoming Encounters Date Type Specialty Care Team Description 05/19/2022 Office Visit ENT Dima Hidalgo M D [address] [place], [place] [address] (Wo rk) 08/02/2022 Office Visit Neurology Yair Campos MD [address] [place] [id number] (Wo rk) documented as of this encounter Visit Diagnoses Diagnosis Type 2 diabetes mellitus with complicati on, without long-term current use of insulin (H) - Primary Mild persistent asthma without complicat ion Unspecified asthma Hyperlipidemia LDL goal <70 Other and unspecified hyperlipidemia Takes dietary supplements Sleep apnea, unspecified type documented in this encounter Additional Health Concerns Assessment Noted Time PHQ-9 Depression Total Score: 4 08/24/2018 11:10 AM CS T documented as of this encounter Care Teams Business Specialist Relationship Specialty Start Date End Date Krystin Christie PCP - General Nurse Practitioner 12/15/17 09/08/19 SAURABH Engel FIBERLINE SUPERVISOR [address] [facility] [place] [id number] Krystin Christie PCP - Assigned PCP 08/26/18 09/18/18 SAURABH Engel FIBERLINE SUPERVISOR [address] [facility] [place] [id number] Tali Vilchis MD INTERNAL MEDICINE - 04/10/15 ENDOCRINOLOGY, DIABETES [address] [facility] & METABOLISM [address] [place], [place] [address] Anat Fuller MD Internal Medicine 04/10/1509/16 MD Renee [address] [facility] [address] [place], [place] [address] Janny Hutton Physician Private Detective Physician Private Detective 06/30/15 09/17/19 CARLA Mckeon [address] [facility] [address] [place], [place] [address] Florecita Bryan, RN Lead Manager Chemistry 08/17/18 10/24/18 Krystin Christie Assigned PCP 08/26/18 01/28/21 SAURABH Engel FIBERLINE SUPERVISOR [address] [facility] [place] [address] documented as of this encounter
--- OUTSIDE RECORDS SUMMARY | 2022-05-09 11:03 | XMS_ITS | Encounter Summary ---
:1955 Author Organization [place] Address [facility] [place] [address] Care Team Providers Name Role Phone Tali Vilchis MD Unavailable Anat Fuller MD Unavailable [phone] Janny Hutton PA-C Unavailable [phone] Krystin Christie APRN TYPESETTING MACHINE TENDER Primary Care Provider [phone] Florecita Bryan RN Unavailable Krystin Christie APRN TYPESETTING MACHINE TENDER Unavailable [phone] Krystin Christie APRN TYPESETTING MACHINE TENDER Unavailable [phone] Encounter Details Date Type Department Care Team Description 08/30/2018 Travel Social History Tobacco Use Types Packs/Day Years Used Date Smoking Tobacco: Never Smokeless Tobacco: Never Alcohol Use Standard Drinks/Week Comments No 0 (1 standard drink = 0.6 oz pure alcoho l) Sex Assigned at Date Recorded Female 08/17/2018 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 documented as of this encounter Plan of Treatment Upcoming Encounters Date Type Specialty Care Team Description 05/19/2022 Office Visit ENT Dima Hidalgo M D [address] [place], [place] [address] (Wo rk) 08/02/2022 Office Visit Neurology Yair Campos MD [address] [place], [place] [address] [place] [address] (Wo rk) documented as of this encounter Visit Diagnoses Not on filedocumented in this encounter Additional Health Concerns Assessment Noted Time PHQ-9 Depression Total Score: 4 08/24/2018 11:10 AM CS T documented as of this encounter Care Teams Community Health Representative Relationship Specialty Start Date End Date Krystin Christie PCP - General Nurse Practitioner 12/15/17 09/08/19 SAURABH Engel TYPESETTING MACHINE TENDER [address] [facility] [place] [address] Krystin Christie PCP - Assigned PCP 08/26/18 09/18/18 SAURABH Engel TYPESETTING MACHINE TENDER [address] [facility] [place] [address] Tali Vilchis MD INTERNAL MEDICINE - 04/10/15 ENDOCRINOLOGY, DIABETES [address] [facility] & METABOLISM [address] [place], [place] [address] Anat Fuller MD Internal Medicine 04/10/1509/16 MD Renee [address] [facility] [address] [place], [place] [address] Janny Hutton Physician Grants Officer Physician Grants Officer 06/30/15 09/17/19 CARLA Mckeon [address] [facility] [address] [place], [place] [address] Florecita Bryan, RN Lead Leather Fitter 08/17/18 10/24/18 Krystin Christie Assigned PCP 08/26/18 01/28/21 SAURABH Engel TYPESETTING MACHINE TENDER [address] [facility] [place] [id number] documented as of this encounter
--- OUTSIDE RECORDS SUMMARY | 2022-05-09 11:03 | XMS_ITS | Encounter Summary ---
:1955 Author Organization [place] Address [facility] [place] [address] Care Team Providers Name Role Phone Tali Vilchis MD Unavailable Anat Fuller MD Unavailable [phone] Janny Hutton PA-C Unavailable [phone] Krystin Christie APRN, CNP Primary Care Provider [phone] Comfort Nichols MD Unavailable Florecita Bryan RN Unavailable Comfort Nichols MD Unavailable Reason for Visit Reason Onset Date Comments Hospital F/U 08/23/2018 Generalized Weakness ED 0/ IP 0 Encounter Details Date Type Department Care Team Description 08/23/2018 Telephone [facility] Anju Nichols MD Hospital F/U Clinic [address] (Generalized Weakness [address] [place] [address] ED 0/ IP 0) [place] [address] [address] [place] [address] [phone] Social History Tobacco Use Types Packs/Day Years Used Date Smoking Tobacco: Never Smokeless Tobacco: Never Alcohol Use Standard Drinks/Week Comments No 0 (1 standard drink = 0.6 oz pure alcoho l) Sex Assigned at Date Recorded Female 08/17/2018 10:39 PM SERVICE UNIT OPERATOR documented as of this encounter Miscellaneous Notes Telephone Encounter - Renetta Spann RN - 08/23/2018 12:49 PM CST Discussed recommendations with patient. She now says those blood sugar readings are from what was done in the hospital. She is convinced this is correct because she has cleaned up her diet since the last office appointment. Reports that she is eating. Hospital follow-up scheduled tomorrow. No further questions. Will call back if any other questions or concerns. Sujey Spann RN ICE UNIT OPERATOR Telephone Encounter - Krystin Christie APRN CNP - 08/23/2018 12:17 PM SERVICE UNIT OPERATOR Her A1c is 11.4 so I'm a little bit concerned that her meter is off. Has she done the test calibration? Is the maybe not eating? Do not start if sugars are low. She needs hospital f/u. Please help her schedule for another day. I'm assuming she cancelled today due to weather. ICE UNIT OPERATOR Telephone Encounter - Renetta Spann RN - 08/23/2018 10:29 AM CST Krystin-Patient is asking if she needs to take diabetic meds-Glipizide and Metformin? Patient never began Victoza, due to cost. Patient states that she hasn't taken any medication for diabetes since hospitalization because her blood sugars have been running low. At home FBS was 100, and two hours after meals is running 100-119. Per discharge note-Will follow up with PCP -- recommend outpatient referral to GI for ongoing evaluation. ?component of diabetic gastroparesis given poor BG control Hospital/TCU/ED for chronic condition Discharge Protocol Hi, my name is Renetta Spann, a registered nurse, and I am calling from [facility]. I am calling to follow up and see how things are going for you after your recent emergency visit/hospital/TCU stay. Tell me how you are doing now that you are home? Patient reports that she is feeling better, but isstill weak. Also notes abdominal bloating after eating. Has not needed to use any inhalers. Patient states that she hasn't taken any medication for diabetes since hospitalization because her blood sugars have been running low. At home FBS was 100, and two hours after meals is running 100-119. Discharge Instructions Let's review your discharge instructions. What is/are the follow-up recommendations? Pt. Response: Follow-up with GI and PCP Has an appointment with your primary care provider been scheduled? Yes. (confirm) When you see the provider, I would recommend that you bring your medications with you. Medications Tell me what changed about your medicines when you discharged? Changes to chronic meds? 0-1 What questions do you have about your medications? See above New diagnoses of heart failure, COPD, diabetes, or AR? No Medication reconciliation completed? Yes Patient not taking Breo Ellipta-reports that she has never been on this on a daily basis. Was MTM referral placed (*Make sure to put transitions as reason for referral)? No Call Summary What questions or concerns do [...] you for your time and take care! Sujey Spann RN ICE UNIT OPERATOR Telephone Encounter - Ladan Azar RN - 08/23/2018 10:20 AM CST ED / Discharge Outreach Protocol Patient Contact Attempt # 1 Was call answered? No. Unable to leave message. The mail box is full. Will re- call at a later time. Ladan Azar RN ICE UNIT OPERATOR Telephone Encounter - Rachael Hardy - 08/23/2018 9:31 AM CST Please contact patient for In-patient follow up. [phone] (home) Visit date: 08/20 - D/C'd 08/22/2018 Diagnosis listed:Generalized Weakness Number of visits in past 12 months:ED0/IP 0 ICE UNIT OPERATOR documented in this encounter Plan of Treatment Upcoming Encounters Date Type Specialty Care Team Description 05/19/2022 Office Visit ENT Dima Hidalgo M D [address] [facility] Saroj R [place], [place] [address] (Wo rk) 08/02/2022 Office Visit Neurology Yair Campos MD [address] [facility] [place] [address] (Wo rk) documented as of this encounter Visit Diagnoses Not on filedocumented in this encounter Care Teams Devops Solutions Architect Relationship Specialty Start Date End Date Krystin Christie PCP - General Nurse Practitioner 12/15/17 09/08/19 SAURABH Engel WATERSHED MANAGER [address] [facility] [place] [id number] Comfort Nichols MD PCP - Assigned PCP 04/08/18 08/25/18 [address] [facility] [place] [id number] Tali Vilchis MD INTERNAL MEDICINE - 04/10/15 ENDOCRINOLOGY, DIABETES 420 [facility] MET[facility]OLISM [address] [place] [address] Anat Fuller MD Internal Medicine 04/10/1509/16 MD Renee [address] [facility] [address] [place], [place] [address] Janny Hutton Physician Aquacultural Worker Supervisor Physician Aquacultural Worker Supervisor 06/30/15 09/17/19 CARLA Mckeon 420 [facility] [address]03 [place], [place] [address] Florecita Bryan, RN Lead Media Production Manager 08/17/18 10/24/18 Comfort Nichols MD Assigned PCP 04/08/18 08/25/18 [address] [facility] [place] [address] documented as of this encounter
--- OUTSIDE RECORDS SUMMARY | 2022-05-09 11:03 | XMS_ITS | Encounter Summary ---
:1955 Author Organization [place] Address [address] [facility] [place] [address] Care Team Providers Name Role Phone Tali Vilchis MD Unavailable Anat Fuller MD Unavailable [phone] Janny Hutton PA-C Unavailable [phone] Krystin Christie APRN, CNP Primary Care Provider Comfort Nichols MD Unavailable Florecita Bryan RN Unavailable Krystin Christie APRN, CNP Unavailable [phone] Comfort Nichols MD Unavailable Krystin Christie APRN, CNP Unavailable [phone] Reason for Visit Reason Onset Date Comments Erroneous encounter-disregard 08/23/2018 Encounter Details Date Type Department Care Team Description 08/23/2018 Telephone [facility] Lola Engel APRN CNP encounter-disregard [address] [place] [address] [facility] [address] [place] [address] [place] [address] [phone] Social History Tobacco Use Types Packs/Day Years Used Date Smoking Tobacco: Never Smokeless Tobacco: Never Alcohol Use Standard Drinks/Week Comments No 0 (1 standard drink = 0.6 oz pure alcoho l) Sex Assigned at Date Recorded Female 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 documented as of this encounter Plan of Treatment Upcoming Encounters Date Type Specialty Care Team Description 05/19/2022 Office Visit ENT Dima Hidalgo M D [address] [facility] Saroj [place], [place] [address] (Wo rk) 08/02/2022 Office Visit Neurology Yair Campos MD [address] [facility] [address] [place], [place] [address] (Wo rk) documented as of this encounter Visit Diagnoses Not on filedocumented in this encounter Care Teams Home Health Care Social Worker Relationship Specialty Start Date End Date Krystin Christie PCP - General Nurse Practitioner 12/15/17 09/08/19 SAURABH Engel LANGUAGES AND LITERATURE INSTRUCTOR [address] [facility] [place] [id number] Comfort Nichols MD PCP - Assigned PCP 04/08/18 08/25/18 [address] [facility] [place] [id number] Krystin Christie PCP - Assigned PCP 08/26/18 09/18/18 SAURABH Engel LANGUAGES AND LITERATURE INSTRUCTOR [address] [facility] [place] [id number] Tali Vilchis MD INTERNAL MEDICINE - 04/10/15 ENDOCRINOLOGY, DIABETES 420 [facility] [address] [place], [place] [address] Anat Fuller MD Internal Medicine 04/10/1509/16 MD Renee [address] [facility] [address] [place], [place] [address] Janny Hutton Physician Fleece Tier Physician Fleece Tier 06/30/15 09/17/19 CARLA Mckeon 420 [facility] 803 [place] [address] Florecita Bryan, RN Lead Communication Clerk 08/17/18 10/24/18 Comfort Nichols MD Assigned PCP 04/08/18 08/25/18 [address] [facility] [place] [id number] Krystin Christie Assigned PCP 08/26/18 01/28/21 SAURABH Engel LANGUAGES AND LITERATURE INSTRUCTOR [address] [facility] [place] [id number] documented as of this encounter
--- OUTSIDE RECORDS SUMMARY | 2022-05-09 11:03 | XMS_ITS | Encounter Summary ---
:1955 Author Organization [place] Address [facility] [place] [address] Care Team Providers Name Role Phone Tali Vilchis MD Unavailable Anat Fuller MD Unavailable [phone] Janny Hutton PA-C Unavailable [phone] Krystin Christie APRN NANOTECHNICIAN Primary Care Provider [phone] Comfort Nichols MD Unavailable Florecita Bryan RN Unavailable Comfort Nichols MD Unavailable Encounter Details Date Type Department Care Team Description 08/24/2018 Travel Social History Tobacco Use Types Packs/Day Years Used Date Smoking Tobacco: Never Smokeless Tobacco: Never Alcohol Use Standard Drinks/Week Comments No 0 (1 standard drink = 0.6 oz pure alcoho l) Sex Assigned at Date Recorded Female 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 documented as of this encounter Plan of Treatment Upcoming Encounters Date Type Specialty Care Team Description 05/19/2022 Office Visit ENT Dima Hidalgo M D [address] [place] [address] (Wo rk) 08/02/2022 Office Visit Neurology Yair Campos MD [address] [facility] [address] [place], [place] [address] (Wo rk) documented as of this encounter Visit Diagnoses Not on filedocumented in this encounter Additional Health Concerns Assessment Noted Time PHQ-9 Depression Total Score: 4 08/24/2018 11:10 AM CS T documented as of this encounter Care Teams Resource Forester Relationship Specialty Start Date End Date Krystin Christie PCP - General Nurse Practitioner 12/15/17 09/08/19 SAURABH Engel NANOTECHNICIAN [address] [facility] [place] [id number] Comfort Nichols MD PCP - Assigned PCP 04/08/18 08/25/18 3[address] [facility] [place] [id number] Tali Vilchis MD INTERNAL MEDICINE - 04/10/15 ENDOCRINOLOGY, DIABETES [address] [facility] [address] [place], [place] [address] Anat Fuller MD Internal Medicine 04/10/1509/16 MD Renee [address] [place], [place] [phone] Janny Hutton Physician Waste Duster Physician Waste Duster 06/30/15 09/17/19 CARLA Mckeon [address] [facility] 803 [place], [place] [address] Florecita Bryan, RN Lead Medical Center Representative 08/17/18 10/24/18 Comfort Nichols MD Assigned PCP 04/08/18 08/25/18 [address] [facility] [place] [id number] documented as of this encounter
--- OUTSIDE RECORDS SUMMARY | 2022-05-09 11:03 | XMS_ITS | Encounter Summary ---
:1955 Author Organization [place] Address [facility] [place] [address] Care Team Providers Name Role Phone Tali Vilchis MD Unavailable Anat Fuller MD Unavailable [phone] Janny Hutton PA-C Unavailable [phone] Krystin Christie APRN, CNP Primary Care Provider [phone] Florecita Bryan RN Unavailable Krystin Christie APRN, CNP Unavailable Krystin Christie APRN, CNP Unavailable [phone] Reason for Referral Diagnostic Imaging CT Scan - Closed Specialty Diagnoses / Procedures Referred By Contact Refer red To Contact Radiology. Diagnoses SOB (shortness of breath) Krystin Christie Sh Ct Scan Procedures CT Chest Hi-Resolution wo Contrast CT Chest w Contrast SAURABH MALDONADO [address] [facility] [place] [phone] [facility] [place] [address] Referral ID Status Reason Start Date Expiration Date Visits Requ ested Visits Authorized [id number] Closed 08/30/2018 08/30/2019 1 1 ER DIE CUTTING MACHINE OPERATOR Reason for Visit Diagnostic Imaging CT Scan - Closed Specialty Diagnoses / Procedures Referred By Contact Refer red To Contact Radiology. Diagnoses SOB (shortness of breath) PratikKrystin Sh Ct Scan Procedures CT Chest Hi-Resolution wo Contrast CT Chest w Contrast CLUB LICENSEE STRINGED INSTRUMENT TUNER [address] [facility] [place] [phone] [facility] [place] [address] Referral ID Status Reason Start Date Expiration Date Visits Requ ested Visits Authorized [id number] Closed 08/30/2018 08/30/2019 1 1 Encounter Details Date Type Department Care Team Description 09/01/2018 Hospital Encounter [facility] Krystin Christie SOB (shortness of [facility] SAURABH Engel breath) [address] [place] Za[place] [address] [place] [address] [facility] [phone] [place] [address] Social History Tobacco Use Types Packs/Day Years Used Date Smoking Tobacco: Never Smokeless Tobacco: Never Alcohol Use Standard Drinks/Week Comments No 0 (1 standard drink = 0.6 oz pure alcoho l) Sex Assigned at Date Recorded Female 08/17/2018 10:39 PM ROLLER DIE CUTTING MACHINE OPERATOR documented as of this encounter Medications at Time of Discharge Medication Sig Dispensed Refills Start Date End Date EPINEPHrine (EPIPEN) Inject 0.3 mg into 0 0.3 MG/0.3ML injection the muscle once as needed. albuterol (2.5 MG/3ML) Take 1 vial (2.5 mg) 25 mL 0 09/09/2018 0.083% neb solution by nebulization every 6 hours as needed for shortness of breath / dyspnea or wheezing blood glucose Use to test blood 200 [...] therapy, Morbid obesity, unspecified obesity type (H) fluticasone-salmeterol Inhale 1 puff into 1 Inhaler 3 08/3009/09/2018 (AIRDUO RESPICLICK) the lungs 2 times 113-14 MCG/ACT daily inhalerIndications: Mild persistent asthma without complication ipratropium - albuterol Take 1 vial (3 mLs) 1 Box 0 10/01/2019 0.5 mg/2.5 mg/3 mL by nebulization every (DUONEB) 0.5-2.5 (3) 6 hours as needed for MG/3ML neb shortness of breath / solutionIndications: dyspnea or wheezing Mild persistent asthma with acute exacerbation metFORMIN TAKE 4 TABLETS(2000 360 tablet 2 10/09/201709/20 (GLUCOPHAGE-XR) 500 MG MG) BY MOUTH DAILY 24 hr WITH DINNER tabletIndications: Type 2 diabetes mellitus without complication, without long-term current use of insulin (H), Alopecia, History of corticosteroid therapy, Morbid obesity, unspecified obesity type (H) Vitamin D, Take 1,000 Units by 0 09/09 Cholecalciferol, 1000 mouth daily units TABS documented as of this encounter Plan of Treatment Upcoming Encounters Date Type Specialty Care Team Description 05/19/2022 Office Visit ENT Dima Hidalgo M D [address] [place], [place] [address] (Wo rk) 08/02/2022 Office Visit Neurology Yair Campos MD 420 [place] [address] (Wo rk) documented as of this encounter Procedures Procedure Name Priority Date/Time Associated Diagnosis Comme nts CT CHEST Routine 09/01/2018 10:44 AM SOB (shortness of Res ults for this HI-RESOLUTION WO ROLLER DIE CUTTING MACHINE OPERATOR breath) procedure a re in CONTRAST the results section. documented in this encounter Results CT Chest Hi-Resolution wo Contrast (09/01/2018 10:44 AM ROLLER DIE CUTTING MACHINE OPERATOR) Anatomical Region Laterality Modality Chest, SUBRAD CT BODY, UMP CT CHEST, RAD CT Computed Tomography Specimen (Source) Anatomical Location Collection Method / Collectio n Time Received Time / Laterality Volume Impressions 09/01/2018 10:55 AM ROLLER DIE CUTTING MACHINE OPERATOR IMPRESSION: Normal CT scan of the chest. CHRISTIANO CEBALLOS MD Narrative 09/01/2018 10:55 AM ROLLER DIE CUTTING MACHINE OPERATOR CT CHEST HI-RESOLUTION WO CONTRAST 09/01/2018 10:44 AM HISTORY: Shortness of breath. TECHNIQUE: CT of the chest is performed without IV contrast. Radiation dose for this scan was reduced using automated exposure control, adjustment of the mA and/or kV according to patient size, or iterative reconstruction technique. Assessed structures to the limits no IV contrast administration include the lungs, mediastinum, pleura, and chest wall. COMPARISON: March 28, 2013. . FINDINGS: The lungs are clear. No pulmon mi opacities. No pleural effusions or pneumothorax. No pulmonary abnormalities appreciated o n inspiratory and expiratory views. No air trapping. No axillary, mediastinal, or hilar lymph adenopathy. Normal heart and aorta. Visualized portions of the upper abdomen are unremarkable on this noncontrast study. Procedure Note Christiano Ceballos MD - 09/01/2018 CT CHEST HI-RESOLUTION WO CONTRAST 2018 10:44 AM HISTORY: Shortness of breath. TECHNIQUE: CT of the chest is performed without IV contrast. Radiation dose for this scan was reduced using automated exposure control, adjustment of the mA and/or kV according to patient size, or iterative reconstruction technique. Assessed structures to the limits no IV contrast administration include the lungs, mediastinum, pleura, and chest wall. COMPARISON: March 28, 2013. . FINDINGS: The lungs are clear. No pulmon mi opacities. No pleural effusions or pneumothorax. No pulmonary abnormalities appreciated o n inspiratory and expiratory views. No air trapping. No axillary, mediastinal, or hilar lymph adenopathy. Normal heart and aorta. Visualized portions of the upper abdomen are unremarkable on this noncontrast study. IMPRESSION: Normal CT scan of the chest. CHRISTIANO CEBALLOS MD Krystin Christie APRN STRINGED INSTRUMENT TUNER IMG CT ORDERABLES documented in this encounter Visit Diagnoses Diagnosis SOB (shortness of breath) Shortness of breath documented in this encounter Additional Health Concerns Assessment Noted Time PHQ-9 Depression Total Score: 4 08/24/2018 11:10 AM CS T documented as of this encounter Care Teams [place] Worker Helper Relationship Specialty Start Date End Date Krystin Christie PCP - General Nurse Practitioner 12/15/17 09/08/19 SAURABH Engel STRINGED INSTRUMENT TUNER [address] [facility] [place] [address] Krystin Christie PCP - Assigned PCP 08/26/18 09/18/18 SAURABH Engel STRINGED INSTRUMENT TUNER 3[address] [facility] [place] [address] Tali Vilchis MD INTERNAL MEDICINE - 04/10/15 ENDOCRINOLOGY, DIABETES 420 [facility] & METABOLISM [address] [place], [place] [address] Anat Fuller MD Internal Medicine 04/10/1509/16 MD Renee [address] [facility] [address] [place], [place] [address] Janny Hutton Physician Baby Attendant Physician Baby Attendant 06/30/15 09/17/19 CARLA Mckeon 420 [facility] 803 [place], [place] [address] Florecita Bryan, RN Lead Bacteriology Technician 08/17/18 10/24/18 Krystin Christie Assigned PCP 08/26/18 01/28/21 SAURABH Engel STRINGED INSTRUMENT TUNER [address] [facility] [place] [address] documented as of this encounter
--- OUTSIDE RECORDS SUMMARY | 2022-05-09 11:03 | XMS_ITS | Encounter Summary ---
:1955 Author Organization [place] Address [facility] [place] [address] Care Team Providers Name Role Phone Tali Vilchis MD Unavailable Anat Fuller MD Unavailable [phone] Janny Hutton PA-C Unavailable [phone] Krystin Christie APRN, CNP Primary Care Provider [phone] Comfort Nichols MD Unavailable Florecita Bryan RN Unavailable Comfort Nichols MD Unavailable Reason for Referral Consultation - Closed Specialty Diagnoses / Procedures Referred By Contact Refer red To Contact Diagnoses Bloating Nonspecific elevation of levels of transaminase or lactic acid dehydrogenase (LDH) Krystin Christie [place] [facility]-[address] [place] [address] [place] [address] Phone: Fax: Referral ID Status Reason Start Date Expiration Date Visits Requ ested Visits Authorized [id number] Closed 08/24/2018 08/24/2019 1 1 FORM MILL SUPERVISOR Reason for Visit Reason Comments Hospital F/U Encounter Details Date Type Department Care Team Description 08/24/[address] [facility] Krystin Christie muscle weakness (Primary Dx); Clinic Lola Engel APRN Mild persistent asthma with acute exacerbation; [address] PIT SUPERVISOR Bloating; [address] [facility] Nonspecific elevation of lev els of transaminase or lactic acid dehydrogenase (LDH); [address] [facility] [address] Encounter for screening for other viral diseases ; [place] [address] [place] [address] Elevated liver enzymes [phone] Social History Tobacco Use Types Packs/Day Years Used Date Smoking Tobacco: Never Smokeless Tobacco: Never Alcohol Use Standard Drinks/Week Comments No 0 (1 standard drink = 0.6 oz pure alcoho l) Sex Assigned at Date Recorded Female 08/17/2018 10:39 PM PLATFORM MILL SUPERVISOR documented as of this encounter Last Filed Vital Signs Vital Sign Reading Time Taken Comments Blood Pressure 120/60 08/24/2018 11:18 AM PLATFORM MILL SUPERVISOR Pulse 80 08/24/2018 11:07 AM PLATFORM MILL SUPERVISOR Temperature 36.4 ??C (97.5 ??F) 08/24/2018 11:07 AM PLATFORM MILL SUPERVISOR Respiratory Rate - - Oxygen Saturation 96% 08/24/2018 11:07 AM PLATFORM MILL SUPERVISOR Inhaled Oxygen Concentration - - Weight 84.6 kg (186 lb 6.4 oz) 08/24/2018 11:07 AM PLATFORM MILL SUPERVISOR Height 157.5 cm (5' 2) 08/24/2018 11:07 AM PLATFORM MILL SUPERVISOR Body Mass Index 34.09 08/24/2018 11:07 AM PLATFORM MILL SUPERVISOR documented in this encounter Patient Instructions Patient InstructionsMolitorKrystin APRN CNP - 08/24/2018 10:40 AM PLATFORM MILL SUPERVISOR -Labs today -HOLD glipizide and victoza -Re-START Metformin -Re-START the Breo inhaler -Please see stomach doctor FORM MILL SUPERVISOR documented in this encounter Progress Notes Krystin Christie APRN CNP - 08/24/2018 10:40 AM CST sarah FORM MILL SUPERVISOR Krystin Christie APRN PIT SUPERVISOR - 08/24/2018 10:40 AM CST SUBJECTIVE: Becki Ridley is a 63 year old female who presents to clinic today for the following health issues: Hospital Follow-up Visit: Hospital/Skilled Nursing/IP Rehab Facility: [facility] Date of Admission: 08/20/18 Date of Discharge: 08/22/18 Reason(s) for Admission: progressive weakness, abdominal bloating/discomfort, elevated transaminases, elevated lipase, diabetes, bronchitis, asthma, sleep apnea Problems taking medications regularly: Not taking any meds currently - hospital did not give her anything Medication changes since discharge: None Problems adhering to non-medication therapy: None Summary of hospitalization: [facility] discharge summary reviewed Diagnostic Tests/Treatments reviewed. Follow up needed: none Other Healthcare Providers Involved in Patient???s Care: None Update since discharge: improved. Post Discharge Medication Reconciliation: discharge medications reconciled, continue medications without change. Plan of care communicated with patient Coding guidelines for this visit: Type of Medical Decision Making Gjnf-wo-Xgqf Visit within 7 Days of discharge Emvv-rd-Vwtj Visit within 14 days of discharge Moderate Complexity [id number] High Complexity [id number] Sugars in the hospital were 100-190s. Checked sugars at home this morning and it was 182. Was 160s yesterday. States breathing is starting to improve. No chest pain. Weakness has resolved for the most part. ROS: const/endo/msk/resp/cv otherwise negative OBJECTIVE: BP 120/60 Pulse 80 Temp 97.5 ??F (36.4 ??C) (Tympanic) Ht 1.575 m (5' 2) Wt 84.6 kg (186 lb6.4 oz) SpO2 96% BMI 34.09 kg/m?? CONSTITUTIONAL: Alert, well-nourished, well-groomed, NAD RESP: Lungs CTA. No wheeze, rhonchi, rales. CV: HRRR S1 S2 No MRG. No peripheral edema ASSESSMENT/PLAN: (M62.81) Generalized muscle weakness (primary encounter diagnosis) Comment: Patient recently re-established with me after over a year of absence. Was seen for a URI with asthma flare and developed progressive muscle weakness. Was admitted to [facility]. LFTs were found to be elevated but RUQ US, CT abd/pelvis, and HIDA scan were all normal. Muscle weakness of unknown origin: Normal UA. Weakness improved. Plan: Comprehensive metabolic panel, CBC with platelets differential -Monitor weakness. (J45.31) Mild persistent asthma with acute exacerbation Comment: Improving. Has not started daily controller inhaler like I recommended. Plan: -Asked her to start that -F/U with pulmonology. (R14.0) Bloating Comment: With elevated LFTs. Normal RUQ US, CT and HIDA Plan: GASTROENTEROLOGY ADULT REF CONSULT ONLY, Comprehensive metabolic panel, Lipase -Recheck today -Referred to GI (R74.0) Nonspecific elevation of levels of transaminase or lactic acid dehydrogenase (LDH) Plan: GASTROENTEROLOGY ADULT REF CONSULT ONLY, Comprehensive metabolic panel, Lipase ISAURO Moreno-DNP. FORM MILL SUPERVISOR documented in this encounter Plan of Treatment Upcoming Encounters Date Type Specialty Care Team Description 05/19/2022 Office Visit ENT Dima Hidalgo M D [address] [place], [place] [address] (Wo rk) 08/02/2022 Office Visit Neurology Yair Campos MD [address] [facility], [place] [address] (Wo rk) Scheduled Referrals Name Type Priority Associated Diagnoses Order S [facility] GASTROENTEROLOGY ADULT REF Referral Routine Bloat ing Ordered: CONSULT ONLY Nonspecific elevation 2018 of levels of transaminase or lactic acid dehydrogenase (LDH) documented as of this encounter Procedures Procedure Name Priority Date/Time Associated Diagnosis Comme nts HEPATITIS B SURFACE Routine 08/24/2018 11:36 Encounter for Res ults for this ANTIBODY AM PLATFORM MILL SUPERVISOR screening for other procedur e are in viral diseases the results Elevated liver section. enzymes CBC WITH PLATELETS & Routine 08/24/2018 11:36 Generalized musc le Results for this DIFFERENTIAL AM PLATFORM MILL SUPERVISOR weakness procedure are i n the results section. LIPASE Routine 08/24/2018 11:36 Bloating Results for this AM PLATFORM MILL SUPERVISOR Nonspecific elevation proced ure are in of levels of the results transaminase or section. lactic acid dehydrogenase (LDH) HEPATITIS C ANTIBODY Routine 08/24/2018 11:36 Elevated liver R esults for this AM PLATFORM MILL SUPERVISOR enzymes procedure are i n the results section. HEPATITIS B SURFACE Routine 08/24/2018 11:36 Encounter for Res ults for this ANTIGEN AM PLATFORM MILL SUPERVISOR screening for other procedur e are in viral diseases the results Elevated liver section. enzymes HEPATITIS B CORE Routine 08/24/2018 11:36 Encounter for Result s for this ANTIBODY AM PLATFORM MILL SUPERVISOR screening for other procedur e are in viral diseases the results Elevated liver section. enzymes FERRITIN Routine 08/24/2018 11:36 Elevated liver Results f or this AM PLATFORM MILL SUPERVISOR enzymes procedure are i n the results section. COMPREHENSIVE Routine 08/24/2018 11:36 Generalized muscle Resu lts for this METABOLIC PANEL AM PLATFORM MILL SUPERVISOR weakness procedure are in Bloating the results Nonspecific elevation sectio n. of levels of transaminase or lactic acid dehydrogenase (LDH) documented in this encounter Results Hepatitis B core antibody (08/24/2018 11:36 AM PLATFORM MILL SUPERVISOR) [facility] gist Method Time Signature Hepatitis B Nonreactive NR^Nonrea 08/27/2018 [facility] [place] ctive 11:27 AM PLATFORM MILL SUPERVISOR [facility] Specimen Anatomical Collection Method Collection Time Receive d Time (Source) Location / / Volume Laterality Blood specimen 08/24/2018 11:36 9 (specimen) AM PLATFORM MILL SUPERVISOR 11:37 AM PLATFORM MILL SUPERVISOR Krystin Christie APRN, CNP LAB - BLOOD ORDERABLES Performing Organization Address City/[facility]/ZIP Code Phon e Number [address] Hepatitis B surface antigen (08/24/2018 11:36 AM PLATFORM MILL SUPERVISOR) [facility] gist Method Time Signature Hep B Surface Nonreactive NR^Nonrea 08/27/2018 [facility] ctive 11:27 AM PLATFORM MILL SUPERVISOR [facility] Specimen Anatomical Collection Method Collection Time Receive d Time (Source) Location / / Volume Laterality Blood specimen 08/24/2018 11:36 9 (specimen) AM PLATFORM MILL SUPERVISOR 11:37 AM PLATFORM MILL SUPERVISOR Krystin Christie APRN, CNP LAB - BLOOD ORDERABLES Performing Organization Address City/[facility] Phon e Number [address] Hepatitis C antibody (08/24/2018 11:36 AM PLATFORM MILL SUPERVISOR) [facility] Method Time Signature Hepatitis C Nonreactive NR^Nonrea 08/27/2018 [facility] Antibody ctive 11:27 AM PLATFORM MILL SUPERVISOR [facility] Comment: Assay performance characteristics have n ot been established for newborns, infants, and children Specimen Anatomical Collection Method Collection Time Receive d Time (Source) Location / / Volume Laterality Blood specimen 08/24/2018 11:36 9 (specimen) AM PLATFORM MILL SUPERVISOR 11:37 AM PLATFORM MILL SUPERVISOR Krystin Christie APRN, CNP LAB - BLOOD ORDERABLES Performing Organization Address City/State/ZIP Code Phon e Number [facility] [address] [place] [address] [facility] Ferritin (08/24/2018 11:36 AM PLATFORM MILL SUPERVISOR) athologist Signature Ferritin 172 8 - 252 08/25/2018 [facility] ng/mL 9:14 AM [facility] Specimen Anatomical Collection Method Collection Time Receive d Time (Source) Location / / Volume Laterality Blood specimen 08/24/2018 11:36 9 (specimen) AM PLATFORM MILL SUPERVISOR 11:37 AM PLATFORM MILL SUPERVISOR Krsytin Christie APRN, CNP LAB - BLOOD ORDERABLES Performing Organization Address City/[facility]/ZIP Code Phon e Number [facility] [address] [place] [address] Hepatitis B Surface Antibody (08/24/2018 11:36 AM PLATFORM MILL SUPERVISOR) athologist Signature Hepatitis B 0.00 <8.00 08/27/2018 [facility] m[IU]/mL 11:27 AM PLATFORM MILL SUPERVISOR [facility] Antibody [facility] Comment: Nonreactive, No antibody detect ed when the value is less than 8.00 m[IU]/mL. Specimen Anatomical Collection Method Collection Time Receive d Time (Source) Location / / Volume Laterality Blood specimen 08/24/2018 11:36 9 (specimen) AM PLATFORM MILL SUPERVISOR 11:37 AM PLATFORM MILL SUPERVISOR Krystin Christie APRN, CNP LAB - BLOOD ORDERABLES Performing Organization Address City/[facility]/ZIP Code Phon e Number [facility] [address] [place] [address] [facility] (ABNORMAL) CBC with platelets differential (08/24/2018 11:36 AM PLATFORM MILL SUPERVISOR) [facility] gist Method Time Signature WBC 8.0 4.0 - 08/24/2018 [facility] 11.0 11:58 AM PLATFORM MILL SUPERVISOR CLINICS 10e9/L [place] RBC Count 5.24 (H) 3.8 - 5.2 08/24/2018 [facility] 10e12/L 11:58 AM PLATFORM MILL SUPERVISOR [facility]IN[facility] [place] Hemoglobin 14.7 11.7 - 08/24/2018 [facility] 15.7 g/dL 11:58 AM PLATFORM MILL SUPERVISOR [facility] [place] Hematocrit 42.6 35.0 - 08/24/2018 [facility] 47.0 % 11:58 AM PLATFORM MILL SUPERVISOR [facility] [place] MCV 81 78 - 100 08/24/2018 [facility] fl 11:58 AM PLATFORM MILL SUPERVISOR [facility] [place] MCH 28.1 26.5 - 08/24/2018 [facility] 33.0 pg 11:58 AM PLATFORM MILL SUPERVISOR [facility] [place] MCHC 34.5 31.5 - 08/24/2018 [facility] 36.5 g/dL 11:58 AM PLATFORM MILL SUPERVISOR [facility] [place] RDW 13.2 10.0 - 08/24/2018 [facility] 15.0 % 11:58 AM PLATFORM MILL SUPERVISOR [facility] Platelet Count 246 150 - 450 08/24/2018 [facility] 10e9/L 11:58 AM PLATFORM MILL SUPERVISOR [facility] Diff Method Automated 08/24/2018 [facility] Method 11:58 AM PLATFORM MILL SUPERVISOR [facility] [place] % Neutrophils 52.2 % 08/24/2018 [facility] 11:58 AM PLATFORM MILL SUPERVISOR [facility] % Lymphocytes 39.8 % 08/24/2018 [facility] 11:58 AM PLATFORM MILL SUPERVISOR [facility] [place] % Monocytes 5.4 % 08/24/2018 [facility] 11:58 AM PLATFORM MILL SUPERVISOR [facility] % Eosinophils 2.2 % 08/24/2018 [facility] 11:58 AM PLATFORM MILL SUPERVISOR [facility] [place] % Basophils 0.4 % 08/24/2018 [facility] 11:58 AM PLATFORM MILL SUPERVISOR [facility] Absolute 4.2 1.6 - 8.3 08/24/2018 [facility] Neutrophil 10e9/L 11:58 AM PLATFORM MILL SUPERVISOR [facility] Absolute 3.2 0.8 - 5.3 08/24/2018 [facility] Lymphocytes 10e9/L 11:58 AM PLATFORM MILL SUPERVISOR [facility] [place] Absolute 0.4 0.0 - 1.3 08/24/2018 [facility] Monocytes 10e9/L 11:58 AM PLATFORM MILL SUPERVISOR [facility] [place] Absolute 0.2 0.0 - 0.7 08/24/2018 [place] Eosinophils 10e9/L 11:58 AM [facility] [place] Absolute 0.0 0.0 - 0.2 08/24/2018 [place] Basophils 10e9/L 11:58 AM [facility] [place] Specimen Anatomical Collection Method Collection Time Receive d Time (Source) Location / / Volume Laterality Blood specimen 08/24/2018 11:36 9 (specimen) AM PLATFORM MILL SUPERVISOR 11:37 AM PLATFORM MILL SUPERVISOR Krystin Christie APRN, CNP LAB - BLOOD ORDERABLES Performing Organization Address City/State/ZIP Code Phon e Number [facility] [address] [place] [address] (ABNORMAL) Lipase (08/24/2018 11:36 AM PLATFORM MILL SUPERVISOR) P athologist Signature Lipase 568 (H) 73 - 393 08/24/2018 [facility] U/L 8:58 PM [facility] Specimen Anatomical Collection Method Collection Time Receive d Time (Source) Location / / Volume Laterality Blood specimen 08/24/2018 11:36 9 (specimen) AM PLATFORM MILL SUPERVISOR 11:37 AM PLATFORM MILL SUPERVISOR Krystin Christie APRN, CNP LAB - BLOOD ORDERABLES Performing Organization Address City/State/ZIP Code Phon e Number [address] [address] [facility] (ABNORMAL) Comprehensive metabolic panel (08/24/2018 11:36 AM PLATFORM MILL SUPERVISOR) Analysis Performed At Patho logist Time Signature Sodium 135 133 - 144 08/25/2018 [place] mmol/L 10:29 AM [facility] Potassium 4.0 3.4 - 5.3 08/25/2018 [place] mmol/L 10:29 AM [facility] Chloride 106 94 - 109 08/25/2018 [place] mmol/L 10:29 AM [facility] Carbon Dioxide 22 20 - 32 08/25/2018 [place] mmol/L 10:39 AM [facility] Anion Gap 7 3 - 14 08/25/2018 [place] mmol/L 10:39 AM [facility] Glucose 198 (H) 70 - 99 08/25/2018 [place] mg/dL 10:39 AM PLATFORM MILL SUPERVISOR [facility] [place] Comment: Non Fasting Urea Nitrogen 20 7 - 30 mg/dL 08/25/2018 10:39 AM [facility] Creatinine 0.68 0.52 - 1.04 mg/dL 08/25/2018 10:39 AM [facility] GFR Estimate >90 >60 08/25/2018 10:39 AM [facility] mL/min/{1.73_m2} [facility] [place] Comment: Non GFR Calc Starting 07/03/2018, serum creatinine ba sed estimated GFR (eGFR) will be calculated using the Chronic Kidney Dise [facility] Epidemiology Collaboration (CKD-EPI) equation. GFR Estimate If >90 >60 mL/min/{1.73_m2} 08/25/2018 10 :39 AM [facility] Comment: GFR Calc Starting 07/03/2018, serum creatinine ba sed estimated GFR (eGFR) will be calculated using the Chronic Kidney Dise [facility] Epidemiology Collaboration (CKD-EPI) equation. Calcium 9.2 8.5 - 10.1 08/25/2018 10:39 AM [facility] mg/dL [facility] Bilirubin Total 0.5 0.2 - 1.3 08/25/2018 10:39 AM [facility] mg/dL [facility] Albumin 3.3 (L) 3.4 - 5.0 g/dL 08/25/2018 10:39 AM [facility] Protein Total 7.0 6.8 - 8.8 g/dL 08/25/2018 10:39 AM [facility] Alkaline Phosphatase 62 40 - 150 U/L 08/25/2018 10:39 AM [facility] ALT 126 (H) 0 - 50 U/L 08/25/2018 10:39 AM [facility] AST 53 (H) 0 - 45 U/L 08/25/2018 10:[address] [facility] Specimen Anatomical Collection Method Collection Time Receive d Time (Source) Location / / Volume Laterality Blood specimen 08/24/2018 11:36 9 (specimen) AM PLATFORM MILL SUPERVISOR 11:37 AM PLATFORM MILL SUPERVISOR Krystin Christie [employer] PIT SUPERVISOR LAB - BLOOD ORDERABLES Performing Organization Address City/State/ZIP Code Phon e Number [facility] [address] [place] [address] documented in this encounter Visit Diagnoses Diagnosis Generalized muscle weakness - Primary Muscle weakness (generalized) Mild persistent asthma with acute exacer bation Unspecified asthma, with exacerbation Bloating Flatulence, eructation, and gas pain Nonspecific elevation of levels of trans aminase or lactic acid dehydrogenase (LDH) Encounter for screening for other viral diseases Elevated liver enzymes Nonspecific elevation of levels of trans aminase or lactic acid dehydrogenase (LDH) documented in this encounter Additional Health Concerns Assessment Noted Time PHQ-9 Depression Total Score: 4 08/24/2018 11:10 AM CS T documented as of this encounter Care Teams Farm Equipment Operator Relationship Specialty Start Date End Date Krystin Christie PCP - General Nurse Practitioner 12/15/17 09/08/19 SAURABH Engel PIT SUPERVISOR [address] [facility] [place] [id number] Comfort Nichols MD PCP - Assigned PCP 04/08/18 08/25/18 [address] [facility] [place] [address] Tali Vilchis MD INTERNAL MEDICINE - 04/10/15 ENDOCRINOLOGY, DIABETES [address] [facility] [address] [place], [place] [address] Anat Fuller MD Internal Medicine 04/10/1509/16 MD Renee [address] [facility] [place], [place] [phone] Janny Hutton Physician Account Executive Healthcare Physician Account Executive Healthcare 06/30/15 09/17/19 CARLA Mckeon [address] [facility] [address] [place], [place] [phone] Florecita Bryan, MIKE Lead President 08/17/18 10/24/18 Comfort Nichols MD Assigned PCP 04/08/18 08/25/18 [address] [facility] [address] [place], [place] [address] documented as of this encounter
--- OUTSIDE RECORDS SUMMARY | 2022-05-09 11:03 | XMS_ITS | Encounter Summary ---
:1955 Author Organization [place] Address [facility] [place] [address] Care Team Providers Name Role Phone Tali Vilchis MD Unavailable Anat Fuller MD Unavailable [phone] Janny Hutton PA-C Unavailable [phone] Krystin Christie APRN OUTBOUND SALES PROFESSIONAL Primary Care Provider [phone] Florecita Bryan RN Unavailable Krystin Christie APRN OUTBOUND SALES PROFESSIONAL Unavailable [phone] Krystin Christie APRN OUTBOUND SALES PROFESSIONAL Unavailable [phone] Encounter Details Date Type Department Care Team Description 09/01/2018 Travel Social History Tobacco Use Types Packs/Day Years Used Date Smoking Tobacco: Never Smokeless Tobacco: Never Alcohol Use Standard Drinks/Week Comments No 0 (1 standard drink = 0.6 oz pure alcoho l) Sex Assigned at Date Recorded Female 08/17/2018 10:39 PM GEAR ROOM KEEPER documented as of this encounter Plan of Treatment Upcoming Encounters Date Type Specialty Care Team Description 05/19/2022 Office Visit ENT Dima Hidalgo M D [address] [place], [place] [address] (Wo rk) 08/02/2022 Office Visit Neurology Yair Campos MD [address] [place] [address] [place] [address] (Wo rk) documented as of this encounter Visit Diagnoses Not on filedocumented in this encounter Additional Health Concerns Assessment Noted Time PHQ-9 Depression Total Score: 4 08/24/2018 11:10 AM CS T documented as of this encounter Care Teams Crane Man Relationship Specialty Start Date End Date Krystin Christie PCP - General Nurse Practitioner 12/15/17 09/08/19 SAURABH Engel OUTBOUND SALES PROFESSIONAL [address] [facility] [place] [address] Krystin Christie PCP - Assigned PCP 08/26/18 09/18/18 SAURABH Engel OUTBOUND SALES PROFESSIONAL [address] [facility] [place] [address] Tali Vilchis MD INTERNAL MEDICINE - 04/10/15 ENDOCRINOLOGY, DIABETES [address] [facility] [address] [place], [place] [address] Anat Fuller MD Internal Medicine 04/10/1509/16 MD Renee [address] [facility] [address] [address] [place], [place] [address] Janny Hutton Physician Sliver Former Physician Sliver Former 06/30/15 09/17/19 CARLA Mckeon [address] [facility] [address] [place], [place] [phone] Florecita Bryan, RN Lead Delivery Stock Clerk 08/17/18 10/24/18 Krystin Christie Assigned PCP 08/26/18 01/28/21 SAURABH Engel OUTBOUND SALES PROFESSIONAL [address] [facility] [place] [address] documented as of this encounter
--- OUTSIDE RECORDS SUMMARY | 2022-05-09 11:03 | XMS_ITS | Encounter Summary ---
:1955 Author Organization [facility] Address [address] [place] [address] Care Team Providers Name Role Phone Tali Vilchis MD Unavailable Anat Fuller MD Unavailable [phone] Janny Hutton PA-C Unavailable [phone] Krystin Christie APRN CELL ATTENDANT HELPER Primary Care Provider [phone] Comfort Nichols MD Unavailable Florecita Bryan RN Unavailable Comfort Nichols MD Unavailable Reason for Visit Reason Comments Generalized Weakness declined over the weekend, s tates she was here last week Chest Pain chest tightness and abdomina l pain Auth/Cert Specialty Diagnoses / Procedures Referred By Contact Refer red To Contact Med Surg Diagnoses Generalized weakness Elevated lipase Chest pain, unspecified type Weakness Short Stay [address] [place] [address] Phone: Referral ID Status Reason Start Date Expiration Date Visits Requ ested Visits Authorized [id number] 1 1 Encounter Details Date Type Department Care Team Description 08/20/2018 - [facility] Aleks Burnett MD [facility] [address] [place], [place] [address] Generalized weakness; 08/22/2018 Cherrie Alexander Sea, MD [address] [id number] Chest pain, unspecified type; Recovery and Short Elevated lipase Stay [address] [id number] Social History Tobacco Use Types Packs/Day Years Used Date Smoking Tobacco: Never Smokeless Tobacco: Never Alcohol Use Standard Drinks/Week Comments No 0 (1 standard drink = 0.6 oz pure alcoho l) Sex Assigned at Date Recorded Female 08/17/2018 10:39 PM APPARATUS OPERATOR documented as of this encounter Last Filed Vital Signs Vital Sign Reading Time Taken Comments Blood Pressure 112/62 08/22/2018 7:43 AM APPARATUS OPERATOR Pulse 68 08/20/2018 10:35 PM APPARATUS OPERATOR Temperature 35.7 ??C (96.3 ??F) 08/22/2018 7:43 AM APPARATUS OPERATOR Respiratory Rate 16 08/22/2018 4:50 PM APPARATUS OPERATOR Oxygen Saturation 95% 08/22/2018 7:43 AM APPARATUS OPERATOR Inhaled Oxygen Concentration - - Weight - - Height - - Body Mass Index - - documented in this encounter Discharge Summaries Dayna Damon DO - 08/22/2018 3:47 PM CST [facility] Discharge Summary Hospitalist Date of Admission: 08/20/2018 Date of Discharge: 08/22/2018 Discharging Provider: Dayna Damon Discharge Diagnoses Progressive Generalized Weakness of Unclear Etiology: Improved Abdominal Bloating with Discomfort and Belching of unclear etiology Elevated Transaminases Elevated Lipase, Mild: Improved DM II: Poorly controlled Recent Bronchitis Asthma Sleep apnea History of Present Illness Becki Ridley is a 63 year old female with PMHx of DM II, asthma, obesity, VILLAREAL, restrictive lung disease and sleep apnea who was admitted on 08/20/2018 under observation status for evaluation of 2wk hxof progressive weakness. Hospital Course Becki Ridley was admitted on 08/20/2018. The following problems were addressed during her hospitalization: ?? Progressive Generalized Weakness: Improved Denies sx of infection, including fevers, sob/cough, n/v. Lytes, renal function, WBC and hgb stable.LFTs mildly elevated as below. UA bland. Gentle IVF started on admission. Weakness improved during her stay and she was ambulating hallways at time of discharge. Etiology of weakness unclear -- ?if related to GI issues vs viral infection vs steroids vs other. ?? Abdominal Bloating with Discomfort and Belching: Unclear etiology but seems to be the bigger issue now. Notes sx onset in the days preceding this admission. Lipase was mildly elevated on admission. Imaging testing this stay included a RUQ US, CT abd/pelvis and HIDA scan all of which were unrevealing as to a cause of her symptoms. Was tolerating po intake at time of discharge. Will follow up with PCP -- recommend outpatient referral to GI for ongoing evaluation. ?component of diabetic gastroparesis given poor BG control Elevated Transaminases Has hx of VILLAREAL. Denies hx of alcohol use. Transaminases elevated this stay (were mostly nl when lastchecked in 03/2017). Endorses ongoing abdominal discomfort and bloating after po intake. No n/v. RUQ US, HIDA scan and CT abd/pelvis were all unremarkable this stay. Consider outpatient GI evaluation asabove. Elevated Lipase, Mild: Improved Lipase peaked at 709 on admission. No clinical sx of pancreatitis. CT abd neg for pancreatitis. ?? DM II: Poorly controlled A1C 11.6 on 08/16/18. No known complications of diabetes to her knowledge OPTICAL GLASS INSPECTOR meds: metformin; PCP added glipizde and liraglutide based on elevated A1C -- hasn't started liraglutide yet Monitored BG during hospitalization and managed with sliding scale insulin. Transitioned back to po meds at discharge. ?component of gastroparesis -- looks to have longstanding hx of poor control with A1C of 9 dating back to 2010 though onset of sx seems to be over a period of days prior to admission and not sure if clinical picture fits ?? Recent Bronchitis: Recently completes course of Augmentin on the day of admission. Steroids were held during her stay. No respiratory sx were noted on day of discharge, no need to complete steroid taper. ?? Asthma: Chronic and stable on home inhalers ?? Sleep apnea: Has had sleep study but not yet using CPAP dt insurance issues Unclear how much this may be contributing to weakness and fatigue ?? Dayna Damon Significant Results and Procedures See imaging studies below Pending Results None Code Status Full Code Primary Care Physician Krystin Christie Physical Exam Temp: 96.3 ??F (35.7 ??C) Temp src: Axillary BP: 112/62 Heart Rate: 72 Resp: 16 SpO2: 95 % O2 Device: None (Room air) There were no vitals filed for this visit. Vital Signs with Ranges Temp: [95.9 ??F (35.5 ??C)-96.8 ??F (36 ??C)] 96.3 ??F (35.7 ??C) Heart Rate: [72-93] 72 Resp: [16] 16 BP: (112-122)/(57-70) 112/62 SpO2: [93 %-95 %] 95 % I/O last 3 completed shifts: In: 1320 [P.O.:520; I.V.:800] Out: 2300 [Urine:2300] General: Resting comfortably, alert, conversive, NAD CVS: HRRR, no MGR, no LE edema Respiratory: CTAB, no wheeze/rales/rhonchi, no increased work of breathing GI: S, NT, ND, +BS Skin: Warm/dry Discharge Disposition Discharged to home Condition at discharge: Stable Consultations This Hospital Stay None Time Spent on this Encounter I, Dayna Damon, personally saw the patient today and spent greater than 30 minutes discharging this patient. Discharge Orders Reason for your hospital stay Evaluation of your weakness and abdominal bloating. Follow-up and recommended labs and tests Follow up with your PCP on 08/23/18 as scheduled. Activity Your activity upon discharge: activity as tolerated Diet Follow this diet upon discharge: Diabetic (1999 ADA) Discharge Medications Current Discharge Medication List CONTINUE these medications which have NOT CHANGED Details albuterol (2.5 MG/3ML) 0.083% neb solution Take 1 vial (2.5 mg) by nebulization every 6 hours as needed for shortness of breath / dyspnea or wheezing Qty: 25 mL, Refills: 0 EPINEPHrine (EPIPEN 2-KITTY) 0.3 MG/0.3ML injection Inject 0.3 mg into the muscle once as needed. fluticasone-vilanterol (BREO ELLIPTA) 200-25 MCG/INH inhaler Inhale 1 puff into the lungs daily Qty: 1 Inhaler, Refills: 1 Associated Diagnoses: Chest pressure glipiZIDE (GLUCOTROL XL) 5 MG 24 hr tablet Take 1 tablet (5 mg) by mouth daily Qty: 30 tablet, Refills: 3 Associated Diagnoses: Type 2 diabetes mellitus with complication, without long- term current use of insulin (H) ipratropium - albuterol 0.5 mg/2.5 mg/3 mL (DUONEB) 0.5-2.5 (3) MG/3ML neb solution Take 1 vial (3 mLs) by nebulization every 6 hours as needed for shortness of breath / dyspnea or wheezing Qty: 1 Box, Refills: 0 Associated Diagnoses: Mild persistent asthma with acute exacerbation metFORMIN (GLUCOPHAGE-XR) 500 MG 24 hr tablet TAKE 4 TABLETS(2000 MG) BY MOUTH DAILY WITH DINNER Qty: 360 tablet, Refills: 2 Comments: Patient requests 90 days supply Associated Diagnoses: Type 2 diabetes mellitus without complication, without long-term current use of insulin (H); Alopecia; History of corticosteroid therapy; Morbid obesity, unspecified obesity type (H) Vitamin D, Cholecalciferol, 1000 units TABS Take 1,000 Units by mouth daily blood glucose monitoring (JAYLENE CONTOUR NEXT) test strip Use to test blood sugar 2 times daily or asdirected. Qty: 200 each, Refills: 3 Associated Diagnoses: Type 2 diabetes mellitus without complication, without long-term current use of insulin (H); Alopecia; History of corticosteroid therapy; Morbid obesity, unspecified obesity type(H) blood glucose monitoring (JAYLENE MICROLET) lancets Use to test blood sugar 2 times daily or as directed. Qty: 4 Box, Refills: 3 Associated Diagnoses: Type 2 diabetes mellitus without complication, without long-term current use of insulin (H); Alopecia; History of corticosteroid therapy; Morbid obesity, unspecified obesity type(H) liraglutide (VICTOZA PEN) 18 MG/3ML solution Inject 0.6 mg Subcutaneous daily Qty: 9 mL, Refills: 3 Associated Diagnoses: Type 2 diabetes mellitus without complication, without long-term current use of insulin (H); Morbid obesity, unspecified obesity type (H) STOP taking these medications amoxicillin-clavulanate (AUGMENTIN) 875-125 MG tablet Comments: Reason for Stopping: predniSONE (DELTASONE) 20 MG tablet Comments: Reason for Stopping: Allergies Allergies Allergen Reactions ??? Cipro [Quinolones] Itching and Difficulty breathing ??? Ciprofloxacin Itching and Shortness Of Breath ??? Codeine Shortness Of Breath Other reaction(s): Syncope ??? Codeine Sulfate Other (See Comments) Blacked out ??? Vicodin [Hydrocodone-Acetaminophen] Itching and Difficulty breathing ??? Darvocet [Propoxyphene N-Apap] Itching Data Most Recent 3 CBC's: Recent Labs Lab Test 08/22/18 0612 08/21/18 0611 08/20/18 1714 WBC 9.1 11.2* 9.4 HGB 13.0 14.6 15.4 MCV 82 81 80 PLT 199 232 240 Most Recent 3 BMP's: Recent Labs Lab Test 08/22/18 0612 08/21/18 0611 08/20/18 1714 NA 140 139 134 POTASSIUM 4.3 3.8 4.6 CHLORIDE 110* 106 103 CO2 25 29 22 BUN 19 14 22 CR 0.61 0.60 0.49* ANIONGAP 5 4 9 JOSIAH 8.3* 8.7 9.2 GLC 142* 143* 278* Most Recent 2 LFT's: Recent Labs Lab Test 08/22/18 0612 08/21/18 0611 AST 50* 40 ALT 104* 131* ALKPHOS 48 59 BILITOTAL 0.4 0.7 Most Recent 3 Troponin's: Recent Labs Lab Test 08/21/18 0611 08/21/18 0040 08/20/18 1714 TROPI <0.015 <0.015 <0.015 Most Recent Cholesterol Panel: Recent Labs Lab Test 08/16/18 1731 CHOL 207* LDL 135* HDL 46* TRIG 130 Most Recent 6 Bacteria Isolates From Any Culture (See EPIC Reports for Culture Details): Recent Labs Lab Test 08/21/18 0130 CULT No growth Most Recent TSH, T4 and A1c Labs: Recent Labs Lab Test 08/20/18 1714 08/16/18 1731 08/09/16 1256 TSH 1.91 3.91 < > 2.97 T4 -- -- -- 1.27 A1C -- 11.6* < > -- < > = values in this interval not displayed. Results for orders placed or performed during the hospital encounter of 08/20/18 Abdomen US, limited (RUQ only) Narrative ULTRASOUND ABDOMEN LIMITED 08/20/2018 8:29 PM HISTORY: Right upper quadrant pain. COMPARISON: None. FINDINGS: Liver is unremarkable in echogenicity without focal lesions. Gallbladder is normal without stones or sludge. Extrahepatic bile duct is normal in diameter. Pancreas is normal where visualized. Right kidney is normal in size. There is no hydronephrosis. Impression IMPRESSION: Negative abdominal ultrasound. ROBYN BRENNER MD Chest XR, PA & LAT Narrative CHEST TWO VIEWS 08/20/2018 9:07 PM HISTORY: Chest pain. COMPARISON: August 09, 2018 FINDINGS: There are no acute infiltrates. The cardiac silhouette is not enlarged. Pulmonary vasculature is unremarkable. Impression IMPRESSION: No acute disease. ROBYN BRENNER MD CT Abdomen Pelvis w Contrast Narrative CT ABDOMEN AND PELVIS WITH CONTRAST 08/21/2018 8:41 AM HISTORY: See the Clinical Information for Interpreting Provider. Abdominal pain, elevated lipase and LFTs, evaluate for signs of pancreatitis, other acute findings. TECHNIQUE: CT abdomen and pelvis with 92 mL Isovue-370 IV. Radiation dose for this scan was reduced using automated exposure control, adjustment of the mA and/or kV according to patient size, or iterative reconstruction technique. COMPARISON: 03/30/2017 FINDINGS: Bases: Lung bases are clear. No pleural effusion, pericardial effusion or pneumothorax. Abdomen: The spleen, kidneys, adrenal glands, liver, gallbladder and pancreas show no focal abnormality. No intrahepatic or extra hepatic biliary dilatation. Hepatic and portal veins are patent. No intraperitoneal free air or free fluid. Small and large bowel are normal in caliber without evidence of obstruction. Uterus is normal. Bladder is decompressed. No abdominal or pelvic lymphadenopathy. No abdominal aortic aneurysm. Bones: No suspicious bony lesions. Impression IMPRESSION: No acute findings in the abdomen or pelvis. DEYANIRA TRUJILLO DO NM Hepatobiliary Scan w GB EF Narrative NUCLEAR MEDICINE HEPATOBILIARY SCAN WITH GALLBLADDER EJECTION FRACTION 08/22/2018 3:04 PM TECHNIQUE: The patient was injected with 6.4 mCi technetium-99m mebrofenin IV. The patient was also given cholecystokinin. Dynamic imaging over biliary system was performed. Region of interest placed over the gallbladder to calculate ejection fraction. HISTORY: Nausea, vomiting; persistent bloating following p.o. intake with elevated transaminases, right upper quadrant ultrasound and CT abdominal unrevealing. COMPARISON: Nuclear Study: None. Other Relevant Studies: CT abdomen and pelvis 08/21/2018, ultrasound abdomen 08/20/2018. FINDINGS: There is radiotracer uptake identified within the gallbladder lumen, biliary tree, bowel, and liver. Gallbladder ejection fraction is 75%. The patient experiences right upper quadrant pain with cholecystokinin. Impression IMPRESSION: 1. No evidence for acute cholecystitis or biliary obstruction. 2. Gallbladder ejection fraction is 75%. 3. The patient describes right upper quadrant pain with cholecystokinin administration. RATUS OPERATOR documented in this encounter Medications at Time [...] type (H) fluticasone-vilanterol Inhale 1 puff into 1 Inhaler 1 08/1708/30/2018 (BREO ELLIPTA) 200-25 the lungs daily MCG/INH inhalerIndications: Chest pressure glipiZIDE (GLUCOTROL Take 1 tablet (5 mg) 30 tablet 3 08/1708/24/2018 XL) 5 MG 24 hr by mouth [...] wheezing Mild persistent asthma with acute exacerbation liraglutide (VICTOZA Inject 0.6 mg 9 mL 3 08/16/2018 0 08/24/2018 PEN) 18 MG/3ML Subcutaneous daily solutionIndications: Type 2 diabetes mellitus without complication, without long-term current use of insulin (H), Morbid obesity, unspecified obesity type (H) metFORMIN TAKE 4 TABLETS(2000 360 tablet 2 [...] documented as of this encounter Progress Notes Dayna Damon, - 08/22/2018 9:33 AM CST [facility] Hospitalist Progress Note Assessment & Plan Becki Ridley is a 63 year old female with PMHx of DM II, asthma, obesity, VILLAREAL, restrictive lung disease and sleep apnea who was admitted on 08/20/2018 under observation status for evaluation of 2wk hxof progressive weakness. Progressive Generalized Weakness: Improved Denies sx of infection, including fevers, sob/cough, n/v. Lytes, renal function, WBC and hgb stable.LFTs mildly elevated as below. UA bland. Gentle IVF started on admission. -- ?related to GI issues -- cont supportive cares -- clinically improving -- now ambulating around room without difficulty Abdominal Bloating with Discomfort and Belching: Unclear etiology but seems to be the bigger issue now. Notes sx onset in the days preceding this admission. Lipase was mildly elevated on admission. Imaging testing unrevealing thus far (including RUQ US and CT -- no signs of pancreatitis) -- check HIDA scan today -- ?component of diabetic gastroparesis given poor BG control -- consider outpatient follow up with GI Elevated Transaminases Has hx of VILLAREAL. Denies hx of alcohol use. Transaminases elevated this stay (were mostly nl when lastchecked in 03/2017). Endorses ongoing abdominal discomfort and bloating after po intake. No n/v. RUQ US was unremarkable this stay and w/o evidence of gallstones.CT abd/pelvis was also unremarkable -- will check HIDA scan -- can consider outpatient follow up with GI Elevated Lipase, Mild: Improved Lipase peaked at 709 on admission. No clinical sx of pancreatitis. CT abd neg for pancreatitis. DM II: Poorly controlled A1C 11.6 on 08/16/18. 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 Also completed a steroid taper. Asthma: Chronic and stable on home inhalers Sleep apnea: Has had sleep study but not yet using CPAP dt insurance issues -- unclear how much this may be contributing to weakness and fatigue FEN: discontinue IVFs, lytes stable, mod CHO diet as tolerated DVT Prophylaxis: PCDs Code Status: Full Code Disposition: Discharge home later today vs tomorrow, pending continued clinical improvement and findings on HIDA scan. Dayna Damon Interval History Seen this morning. Weakness improving and is now able to ambulate around the room. Endorses ongoing abd bloating and distension with minimal po intake. It feels like I ate 3 Thanksgiving dinners afterI took a few bites. Denies abd pain/n/v. Is belching a lot. No cp/sob/cough. -Data reviewed today: I reviewed all new labs and imaging results over the last 24 hours. I personally reviewed no images or EKG's today. Physical Exam Temp: 96.3 ??F (35.7 ??C) Temp src: Axillary BP: 112/62 Heart Rate: 72 Resp: 16 SpO2: 95 % O2 Device: None (Room air) There were no vitals filed for this visit. Vital Signs with Ranges Temp: [95.9 ??F (35.5 ??C)-96.8 ??F (36 ??C)] 96.3 ??F (35.7 ??C) Heart Rate: [72-93] 72 Resp: [16] 16 BP: (112-122)/(57-70) 112/62 SpO2: [93 %-95 %] 95 % I/O last 3 completed shifts: In: 1040 [P.O.:240; I.V.:800] Out: 2625 [Urine:2625] Constitutional: Resting comfortably, alert and answering questions appropriately, NAD Respiratory: CTAB, no wheeze/rales/rhonchi, no increased work of breathing Cardiovascular: HRRR, no MGR, no LE edema GI: obese, S, NT, ND, +BS Skin/Integumen: warm/dry Other: Medications ??? sodium chloride 100 mL/hr at 08/22/18 0221 ??? fluticasone-vilanterol 1 puff Inhalation Daily ??? insulin aspart 1-7 Units Subcutaneous TID AC ??? insulin aspart 1-5 Units Subcutaneous At Bedtime Data Recent Labs Lab 08/22/18 0612 08/21/18 0611 08/21/18 0040 08/20/18 1714 WBC 9.1 11.2* -- 9.4 HGB 13.0 14.6 -- 15.4 MCV 82 81 -- 80 PLT 199 232 -- 240 NA 140 139 -- 134 POTASSIUM 4.3 3.8 -- 4.6 CHLORIDE 110* 106 -- 103 CO2 25 29 -- 22 BUN 19 14 -- 22 CR 0.61 0.60 -- 0.49* ANIONGAP 5 4 -- 9 JOSIAH 8.3* 8.7 -- 9.2 GLC 142* 143* -- 278* ALBUMIN 2.6* 3.0* -- 3.4 PROTTOTAL 5.7* 6.8 -- 7.4 BILITOTAL 0.4 0.7 -- 0.5 ALKPHOS 48 59 -- 66 ALT 104* 131* -- 170* AST 50* 40 -- 73* LIPASE -- 569* -- 709* TROPI -- <0.015 <0.015 <0.015 No results found for this or any previous visit (from the past 24 hour(s)). Ceci Marti, MIKE - 08/22/2018 4:00 AM CST Observation Goals: -diagnostic tests and consults completed and resulted - partially met -vital signs normal or at patient baseline - met Ceci Marti RN - 08/22/2018 12:00 AM CST Observation Goals: -diagnostic tests and consults completed and resulted - partially met -vital signs normal or at patient baseline - met Hal Ordaz RN - 08/21/2018 8:00 PM CST Observation goals PRIOR TO DISCHARGE ?? Comments: -diagnostic tests and consults completed and resulted : Met ?? -vital signs normal or at patient baseline : Met Hal Ordaz RN - 08/21/2018 4:00 PM CST Observation goals PRIOR TO DISCHARGE ?? Comments: -diagnostic tests and consults completed and resulted : Met -vital signs normal or at patient baseline ; Met Chris West - 08/21/2018 11:47 AM CST [facility] Progress Note [facility] Visited per request. Pt reflected on her josé luis and shared a story of her childhood about her relationship with God. SH and Pt engaged in interreligious dialogue. Pt requested prayer. SH provided kind presence, listening, reflective questions, conversation, interreligious dialogue, prayer. SH is available if needs arise. Chris Ann Apprentice Pattern Maker RATUS OPERATOR Denia Alicea MD - 08/21/2018 10:27 AM CST [facility] Medicine Progress Note - Hospitalist Service Date of Admission: 08/20/2018 Assessment & Plan Reveals a 63-year-old female patient with history including diabetes mellitus type 2, asthma, obesity, restrictive lung disease, sleep apnea (not using CPAP), and VILLAREAL who presents with 2 weeks of progressive weakness. ?? 1. Weakness, unclear etiology. - Unclear if related to primary GI issue, which will be discussed further below, but she says that she has been eating and drinking relatively well. - Does not have any nausea, vomiting or diarrhea. - She does have abdominal discomfort after eating with belching. - Elevated transaminases and lipase on admission, now calming - Otherwise laboratory evaluation so far is fairly unremarkable. - Continue gentle IVF for now - UA unremarkable besides some glucose. - Not much different today ?? 2. Elevated lipase, possibly mild pancreatitis. - Lipase down to 569 from 709 - Denies alcohol use; no gallstones on US - CT abdo pending - will start diet as she wishes - PRN analgesics available ?? 3. Mild elevated liver function tests. - History of nonalcoholic steatohepatitis. - Adm LFTs show ALT 170, AST 73, otherwise normal. - LFTs calming today, ALT 131 and AST 40. - Ultrasound as above was negative. - If abdominal CT is negative, could consider HIDA scan. - Monitor LFTs. ?? 4. Recent bronchitis. - The patient had a recent respiratory infection and received last dose of Augmentin on day of admission. Also was on a steroid taper. - Lungs remain clear as they were at admission, CXR unremarkable - Continue to monitor clinically 5. Diabetes mellitus type 2. - Hemoglobin A1c was 11.6, on 08/16/2018. Following this result, the patient's primary care providerstarted her on glipizide. She is already on metformin. The plans were to Liraglutide as well; she has not started this yet. - Will continue to hold glipizide and metformin for now - especially as she just got contrast. - will continue insulin correction scale. Resume oral medications as able/indicated. ?? 6. Asthma. - Continue be Breo Ellipta and p.r.n. nebulizers. ?? 7. Sleep apnea. - Completed polysomnogram but apparently insurance issues have complicated her getting a CPAP - thiscould very well be contributing to fatigue and weakness - SW assistance appreciated - otherwise PCP or sleep/pulm doc as outpatient is reasonable Diet: Moderate Consistent CHO Diet DVT Prophylaxis: Pneumatic Compression Devices Harris Catheter: not present Code Status: Full Code Disposition Plan Expected discharge: Pending CT results, possibly home today or tomorrow Entered: Denia Alicea MD 08/21/2018, 10:27 AM The patient's care was discussed with the Bedside Nurse, Chef Manager/Rendering Equipment Tender and Patient. Denia Alicea MD Hospitalist Service [facility] Interval History No new events or complaints. Discussed her history of last couple weeks. Still feeling generally weak and fatigued - no cough, f, c, n, or v. Reports abdo distension and belching after eating. Data reviewed today: I reviewed all medications, new labs and imaging results over the last 24 hours. I personally reviewed no images or EKG's today. Physical Exam Vital Signs: Temp: 97.9 ??F (36.6 ??C) Temp src: Oral BP: 102/68 Pulse: 68 Heart Rate: 66 Resp: 16 SpO2: 95 % O2 Device: None (Room air) Weight: 0 lbs 0 oz General Appearance: Nad, pleasant Respiratory: ctabl Cardiovascular: s1s2 heard, reg rate, no pedal edema GI: s, nt, nd, +bs, no rebound Other: Aaox3, no focal deficits Data Recent Labs Lab 08/21/18 0611 08/21/18 0040 08/20/18 1714 08/16/18 1731 WBC 11.2* -- 9.4 -- HGB 14.6 -- 15.4 -- MCV 81 -- 80 -- PLT 232 -- 240 -- NA 139 -- 134 135 POTASSIUM 3.8 -- 4.6 3.8 CHLORIDE 106 -- 103 104 CO2 29 -- 22 23 BUN 14 -- 22 18 CR 0.60 -- 0.49* 0.48* ANIONGAP 4 -- 9 8 JOSIAH 8.7 -- 9.2 8.7 GLC 143* -- 278* 213* ALBUMIN 3.0* -- 3.4 3.4 PROTTOTAL 6.8 -- 7.4 7.2 BILITOTAL 0.7 -- 0.5 0.4 ALKPHOS 59 -- 66 66 ALT 131* -- 170* 278* AST 40 -- 73* 143* LIPASE 569* -- 709* -- TROPI <0.015 <0.015 <0.015 -- Recent Results (from the past 24 hour(s)) Abdomen US, limited (RUQ only) Narrative ULTRASOUND ABDOMEN LIMITED 08/20/2018 8:29 PM HISTORY: Right upper quadrant pain. COMPARISON: None. FINDINGS: Liver is unremarkable in echogenicity without focal lesions. Gallbladder is normal without stones or sludge. Extrahepatic bile duct is normal in diameter. Pancreas is normal where visualized. Right kidney is normal in size. There is no hydronephrosis. Impression IMPRESSION: Negative abdominal ultrasound. ROBYN BRENNER MD Chest XR, PA & LAT Narrative CHEST TWO VIEWS 08/20/2018 9:07 PM HISTORY: Chest pain. COMPARISON: August 09, 2018 FINDINGS: There are no acute infiltrates. The cardiac silhouette is not enlarged. Pulmonary vasculature is unremarkable. Impression IMPRESSION: No acute disease. ROBYN BRENNER MD RATUS OPERATOR Hal Carroll RN - 08/20/2018 9:42 PM CST RECEIVING UNIT ED HANDOFF REVIEW ED Nurse Handoff Report was reviewed by: Hal Carroll on August 20, 2018 at 9:43 PM RATUS OPERATOR documented in this encounter H&P Notes Cherrie Schaefer MD - 08/20/2018 10:23 PM CST INTERNAL MEDICINE H&P H&P dictated: #[id number] Cherrie Schaefer Jr., MD [phone] (p) RATUS OPERATOR Cherrie Schaefer MD - 08/20/2018 10:23 PM CST Admitted: 08/20/2018 PRIMARY CARE PHYSICIAN: Krystin Christie MD CHIEF COMPLAINT: Weakness. HISTORY OF PRESENT ILLNESS: Ms. Becki Ridley is a 63-year-old female patient with history noted below, including diabetes mellitus type 2, asthma, obesity, sleep apnea, and VILLAREAL (nonalcoholic steatohepatitis), who presents with the above complaints. The patient for the last 2 weeks has been feeling ill. She had some respiratory complaints. Apparently an x-ray which did not show any definitive infection, but she was started on Augmentin, which she completed. She did have a cough at that time and she said that improved, however, she continued to feel unwell, mostly weak. She was started on a steroid burst, which she is nearly completing and she is in the midst of, yet she continues to feel weak. Hermain complaint is significant fatigue. She says that she would eat something in the morning and was fairly weak for the rest of the day. After she eats, she notes some abdominal discomfort with a band-like sensation in her lower chest and upper abdomen that feels as if she was being squeezed. No nausea or vomiting. She says she has been trying to eat. She says that her appetite is actually fairly decent. She has been drinking okay. She has been trying to hydrate herself. No diarrhea or bloody stools. No fevers or chills. Overall, given her symptoms, she came to [facility] for evaluation. The patient was seen in the ER and had vitals checked that showed a temperature 98.3 degrees, heart rate 79, blood pressure 138/86, respiration 18, O2 saturation 93% on room air. She went on to have laboratory evaluation. This reveals that her white count was normal. She had LFTs that showed normal total bilirubin and normal alkaline phosphatase but, ALT was elevated at 170, AST elevated at 33. Lipase was checked and was elevated at 709. Troponin was negative. TSH was normal. Glucose levels 270s. She had D-dimer checked, it was normal. She had an EKG which did not show any acute ischemic findings. Abdominal ultrasound was performed and was negative and there were no stones. She had a chest x-ray which did not show any acute findings. Overall, patient was felt too weak to be able to discharge home, and as such, given her symptomatology, request for observation admission was made. PAST MEDICAL HISTORY: 1. Diabetes type 2. Hemoglobin A1c 11.6 on 08/16/2018. After this value was noted, the primary care physician has added glipizide. She does take metformin. The plan to liraglutide as well. 2. Asthma. 3. Obesity. 4. Restrictive lung disease. 5. Nonalcoholic steatohepatitis. She has had a liver biopsy in 2010. 6. Obstructive sleep apnea. Not been able to get a CPAP machine due to some insurance issues. PAST SURGICAL HISTORY: Status post wisdom teeth extraction. ALLERGIES: CIPROFLOXACIN, CODEINE, VICODIN, DARVOCET. HOME MEDICATIONS: Medications Prior to Admission Medication Sig Dispense Refill Last Dose ??? albuterol (2.5 MG/3ML) 0.083% neb solution Take 1 vial (2.5 mg) by nebulization every 6 hours asneeded for shortness of breath / dyspnea or wheezing 25 mL 0 prn ??? [] amoxicillin-clavulanate (AUGMENTIN) 875-125 MG tablet Take 1 tablet by mouth 2 times daily for 10 days 20 tablet 0 08/19/2018 at Unknown time ??? EPINEPHrine (EPIPEN 2-KITTY) 0.3 MG/0.3ML injection Inject 0.3 mg into the muscle once as needed. prn ??? fluticasone-vilanterol (BREO ELLIPTA) 200-25 MCG/INH inhaler Inhale 1 puff into the lungs daily 1 Inhaler 1 08/20/2018 at Unknown time ??? glipiZIDE (GLUCOTROL XL) 5 MG 24 hr tablet Take 1 tablet (5 mg) by mouth daily 30 tablet 3 08/20/2018 at Unknown time ??? ipratropium - albuterol 0.5 mg/2.5 mg/3 mL (DUONEB) 0.5-2.5 (3) MG/3ML neb solution Take 1 vial (3 mLs) by nebulization every 6 hours as needed for shortness of breath / dyspnea or wheezing 1 Box 0prn ??? metFORMIN (GLUCOPHAGE-XR) 500 MG 24 hr tablet TAKE 4 TABLETS(2000 MG) BY MOUTH DAILY WITH [id number] tablet 2 08/20/2018 at Unknown time ??? predniSONE (DELTASONE) 20 MG tablet Take 60 mg by mouth daily for 3 days, THEN 40 mg daily for 3days, THEN 20 mg daily for 3 days, THEN 10 mg daily for 3 days. 20 tablet 0 08/20/2018 at 40mg ??? Vitamin D, Cholecalciferol, 1000 units TABS Take 1,000 Units by mouth daily Past Month at Unknown time ??? blood glucose monitoring (JAYLENE CONTOUR NEXT) test strip Use to test blood sugar 2 times daily or as directed. 200 each 3 Taking ??? blood glucose monitoring (JAYLENE MICROLET) lancets Use to test blood sugar 2 times daily or as directed. 4 Box 3 Taking ??? liraglutide (VICTOZA PEN) 18 MG/3ML solution Inject 0.6 mg Subcutaneous daily 9 mL 3 not yet started SOCIAL HISTORY: The patient does not smoke or drink. She is and has 1 daughter. She is on disability. 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 FAMILY HISTORY: Reviewed and not felt to be contributory. REVIEW OF SYSTEMS: As in HPI, otherwise 10-point review of systems is negative. PHYSICAL EXAMINATION: VITAL SIGNS: Temperature 98.3, heart rate 79, blood pressure 138/86, respiration 18, O2 saturations 92% range. GENERAL: A 63-year-old female patient lying in bed. She is fatigued appearing, otherwise conversant,friendly and appropriate. HEENT: Pupils are equal, round, reactive. No scleral icterus or conjunctival injection. Oropharynx reveals no erythema or exudate. NECK: No bruits, JVD or adenopathy. HEART: Regular rate and rhythm without murmurs, rubs or gallops. LUNGS: Diminished at the bases, no crackles or wheezes. ABDOMEN: Soft and nondistended. Some tenderness with deeper palpation both left and right upper quadrants with no rebound or guarding. Positive bowel sounds, no femoral bruits. EXTREMITIES: Show trace edema, without knee joint swelling or skin rash. NEUROLOGIC: No gross focal motor or sensory deficits. LABORATORY DATA: Sodium of 134, potassium 4.6, chloride 103, bicarbonate 22, BUN 22, creatinine 0.49, calcium 10.2. LFTs showed ALT elevated at 170, AST elevated at 33, otherwise normal. Lipase is 709.Troponin less than 0.015, glucose 278. CBC showed white count 9.4, hemoglobin 15.4, platelets 240. D-dimer 0.3. EKG, which I personally reviewed, shows sinus rhythm without acute ischemic changes. Abdominal ultrasound. And chest x-ray as above were negative. ASSESSMENT AND PLAN: Reveals a 63-year-old female patient with history including diabetes mellitus type 2, asthma, obesity, restrictive lung disease, sleep apnea (not using CPAP), and VILLAREAL who presentswith 2 weeks of progressive weakness. 1. Weakness, unclear etiology. Unclear if related to primary GI issue, which will be discussed further below, but she says that she has been eating and drinking relatively well. Does not have any nausea, vomiting or diarrhea. She does have abdominal discomfort after eating. She does have slightly elevated liver function tests, transaminases and slightly elevated lipase which will be discussed furtherbelow. Otherwise laboratory evaluation so far is fairly unremarkable. At this time, will give gentleIV fluid hydration. Check UA and UC. Treat other potential issues as below. 2. Elevated lipase, possibly mild pancreatitis. The patient has had lipase of 709. Does not drink alcohol. Does not have any gallstones on ultrasound. At this time, will keep on clears. We will check abdominal CT. PRN analgesics, though she does not have that much pain at this time. 3. Mild elevated liver function tests. The patient does have history of nonalcoholic steatohepatitis. LFTs show ALT 170, AST 73, otherwise normal. Ultrasound as above was negative. At this time, we will check abdominal imaging as above. If abdominal CT is negative, could consider HIDA scan. Monitor LFTs. 4. Recent bronchitis. The patient had a recent respiratory infection and received last dose of Augmentin today. Also was on a steroid taper. At this time lungs sound fairly clear and chest x-ray is negative. As such, we will stop Augmentin and steroids. Monitor clinically. 5. Diabetes mellitus type 2. Hemoglobin A1c was 11.6, on 08/16/2018. Following this result, the patient's primary care provider did start her on glipizide. She is already on metformin. The plans were to Liraglutide as well; she has not started this yet. At this time, as her diet will be downgraded to clears, we will hold glipizide and metformin for now. We will order insulin correction scale. Resume oral medications as able/indicated. 6. Asthma. Continue be Breo Ellipta and p.r.n. nebulizers. 7. Sleep apnea. She has had a sleep study and was supposed to use a CPAP, but apparently there has been some insurance issues and she has not been able to obtain one, and as such, she is not using one regularly. Certainly having untreated sleep apnea could possibly lead to weakness and fatigue. We will ask social work to assist with trying to obtain a CPAP machine. She should follow up with her primary sleep clinic/watch dial printer for further management as needed. 8. Prophylaxis: Pneumo boots and ambulation. 9. CODE STATUS: Full code. CHERRIE SCHAEFER JR., MD MT: RON Name: BECKI RIDLEY MRN: [id number] Account: [id number] : 1955 Admitted: 08/20/2018 Document: [id number] cc: Krystin Christie APRN CELL ATTENDANT HELPER RATUS OPERATOR documented in this encounter Consult Notes Rowena Cleary LSW - 08/22/2018 1:26 PM CSTAssociated Order(s): SOCIAL WORK IP CONSULT SW: CLAIRE consulted to see patient who stated financial questions. SW met with patient to introduce self and role. Patient indicated that since her request to see this play writer, her questions were answered with the presentation of her Medicare letter. Pt shared that she lives in [place] and plans to drive herself home upon discharge as she drove herself here and is parked in handicap parking. Patient states no concerns and/or social service needs. SW has identified no other social service needs at this time. SW will remain available should other needs arise. RATUS OPERATOR documented in this encounter ED Notes Mesha Garcia RN - 08/20/2018 9:25 PM CST [facility] ED Nurse Handoff Report ED Chief complaint: Generalized Weakness (declined over the weekend, states she was here last week) and Chest Pain (chest tightness and abdominal pain) ED Diagnosis: Final diagnoses: None Code Status: Full Code Allergies: Allergies Allergen Reactions ??? Cipro [Quinolones] Itching and Difficulty breathing ??? Ciprofloxacin Itching and Shortness Of Breath ??? Codeine Shortness Of Breath Other reaction(s): Syncope ??? Codeine Sulfate Other (See Comments) Blacked out ??? Vicodin [Hydrocodone-Acetaminophen] Itching and Difficulty breathing ??? Darvocet [Propoxyphene N-Apap] Itching Activity level - Baseline/Home: Independent Activity Level - Current: Stand with Assist Dormitory Maid Needed?: No Isolation: No Infection: Not Applicable Bariatric?: No Vital Signs: Vitals: 08/20/18 1722 BP: 138/86 Pulse: 79 Resp: 18 Temp: 98.3 ??F (36.8 ??C) TempSrc: Oral SpO2: 92% Cardiac Rhythm: , Pain level: 0-10 Pain Scale: 3 Is this patient confused?: No Does this patient have a guardian? No If yes, is there guardianship documents in the Epic Code/ACP activity? N/A Guardian Notified? Yes [place] - Suicide Severity Rating Scale Completed? Yes If yes, what color did the patient score? White Patient Report: Initial Complaint: weak / chest pain Focused Assessment: 63 year old female with a history of restricted lung disease, asthma, and diabetes who presents to the Emergency Department today for evaluation of generalized weakness. Patient reports that she developed a cough two weeks ago. She visited a physician who performed a chest x-ray and diagnosed her with a lower lobe respiratory infection and placed her on a 10 day course of antibiotics as well as a 5 day burst of steroids. Patient returned to clinic four days ago because she reports a tight band around her lower chest and upper abdomen that feels as though it is being squeezed. Patient says the band is more noticeable when patient is tired. She was told at that visit that her loulou ngs were clear. Patient is here today because of generalized weakness which has increased over the last several days. She has right sided abdominal pain and diaphoresis. No fever. No constipation or blood in her stools. No history of heart problems. ?? Tests Performed: labs, US, xray Abnormal Results: Results for orders placed or performed during the hospital encounter of 08/20/18 Abdomen US, limited (RUQ only) Narrative ULTRASOUND ABDOMEN LIMITED 08/20/2018 8:29 PM HISTORY: Right upper quadrant pain. COMPARISON: None. FINDINGS: Liver is unremarkable in echogenicity without focal lesions. Gallbladder is normal without stones or sludge. Extrahepatic bile duct is normal in diameter. Pancreas is normal where visualized. Right kidney is normal in size. There is no hydronephrosis. Impression IMPRESSION: Negative abdominal ultrasound. ROBYN BRENNER MD Chest XR, PA & LAT Narrative CHEST TWO VIEWS 08/20/2018 9:07 PM HISTORY: Chest pain. COMPARISON: August 09, 2018 FINDINGS: There are no acute infiltrates. The cardiac silhouette is not enlarged. Pulmonary vasculature is unremarkable. Impression IMPRESSION: No acute disease. ROBYN BRENNER MD CBC with platelets differential Result Value Ref Range WBC 9.4 4.0 - 11.0 10e9/L RBC Count 5.55 (H) 3.8 - 5.2 10e12/L Hemoglobin 15.4 11.7 - 15.7 g/dL Hematocrit 44.6 35.0 - 47.0 % MCV 80 78 - 100 fl MCH 27.7 26.5 - 33.0 pg MCHC 34.5 31.5 - 36.5 g/dL RDW 13.3 10.0 - 15.0 % Platelet Count 240 150 - 450 10e9/L Diff Method Automated Method % Neutrophils 78.5 % % Lymphocytes 19.8 % % Monocytes 1.0 % % Eosinophils 0.1 % % Basophils 0.1 % % Immature Granulocytes 0.5 % Nucleated RBCs 0 0 /100 Absolute Neutrophil 7.4 1.6 - 8.3 10e9/L Absolute Lymphocytes 1.9 0.8 - 5.3 10e9/L Absolute Monocytes 0.1 0.0 - 1.3 10e9/L Absolute Eosinophils 0.0 0.0 - 0.7 10e9/L Absolute Basophils 0.0 0.0 - 0.2 10e9/L Abs Immature Granulocytes 0.1 0 - 0.4 10e9/L Absolute Nucleated RBC 0.0 Comprehensive metabolic panel Result Value Ref Range Sodium 134 133 - 144 mmol/L Potassium 4.6 3.4 - 5.3 mmol/L Chloride 103 94 - 109 mmol/L Carbon Dioxide 22 20 - 32 mmol/L Anion Gap 9 3 - 14 mmol/L Glucose 278 (H) 70 - 99 mg/dL Urea Nitrogen 22 7 - 30 mg/dL Creatinine 0.49 (L) 0.52 - 1.04 mg/dL GFR Estimate >90 >60 mL/min/[1.73_m2] GFR Estimate If Black >90 >60 mL/min/[1.73_m2] Calcium 9.2 8.5 - 10.1 mg/dL Bilirubin Total 0.5 0.2 - 1.3 mg/dL Albumin 3.4 3.4 - 5.0 g/dL Protein Total 7.4 6.8 - 8.8 g/dL Alkaline Phosphatase 66 40 - 150 U/L ALT 170 (H) 0 - 50 U/L AST 73 (H) 0 - 45 U/L Lipase Result Value Ref Range Lipase 709 (H) 73 - 393 U/L Troponin I Result Value Ref Range Troponin I ES <0.015 0.000 - 0.045 ug/L D dimer quantitative Result Value Ref Range D Dimer 0.3 0.0 - 0.50 ug/ml FEU TSH with free T4 reflex Result Value Ref Range TSH 1.91 0.40 - 4.00 mU/L EKG 12-lead, tracing only Result Value Ref Range Interpretation ECG Click View Image link to view waveform and result Treatments provided: monitor Family Comments: self OBS brochure/video discussed/provided to patient/family: Yes Name of person given brochure if not patient: xx Relationship to patient: xx ED Medications: Medications - No data to display Drips infusing?: No For the majority of the shift this patient was Green. Interventions performed were xx. Severe Sepsis OR Septic Shock Diagnosis Present: No To be done/followed up on inpatient unit: xx ED NURSE PHONE NUMBER: [id number] RATUS OPERATOR Aleks Burnett MD - 08/20/2018 4:03 PM CST History Chief Complaint: Generalized Weakness CHRISTIAN Ridley is a 63 year old female with a history of restricted lung disease, asthma, and diabetes who presents to the Emergency Department today for evaluation of generalized weakness. Patient reports that she developed a cough two weeks ago. She visited a physician who performed a chest x-ray and diagnosed her with a lower lobe respiratory infection and placed her on a 10 day course of antibiotics as well as a 5 day burst of steroids. Patient returned to clinic four days ago because she reports a tight band around her lower chest and upper abdomen that feels as though it is being squeezed. Patient says the band is more noticeable when patient is tired. She was told at that visit that her loulou ngs were clear. Patient is here today because of generalized weakness which has increased over the last several days. She has right sided abdominal pain and diaphoresis. No fever. No constipation or blood in her stools. No history of heart problems. Allergies: Ciprofloxacin: itching, shortness of breath Codeine: syncope, shortness of breath Codeine sulfate: syncope Vicodin: itching, difficulty breathing Darvocet: itching Medications: Albuterol nebulizer Breo ellipta inhaler Glipizide Duoneb nebulizer Metformin Past Medical History: Depression Restrictive lung disease Elevated liver enzymes Obesity Nonalcoholic fatty liver disease Diabetes Hypothyroidism subclinical Urticaria Asthma Angioedema Arthritis Lower extremity edema Restless leg syndrome Sleep apnea Past Surgical History: Liver biopsy Family History: Carmen thyroiditis Depression Anxiety disorder Dementia Hypertension Cancer Social History: Smoking status: Never smoker Alcohol use: No Marital Status: Single [1] Review of Systems Constitutional: Positive for diaphoresis and fatigue. Negative for fever. Cardiovascular: Positive for chest pain. Gastrointestinal: Positive for abdominal pain. Negative for blood in stool and constipation. All other systems reviewed and are negative. Physical Exam Patient Vitals for the past 24 hrs: BP Temp Temp src Pulse Resp SpO2 08/20/18 1722 138/86 98.3 ??F (36.8 ??C) Oral 79 18 92 % Physical Exam SKIN: Warm, dry. No jaundice. HEMATOLOGIC/IMMUNOLOGIC/LYMPHATIC: No pallor. No edema. HENT: No JVD. EYES: Conjunctivae normal. Anicteric. CARDIOVASCULAR: Regular rate and rhythm. No murmur. No rub. RESPIRATORY: No respiratory distress, breath sounds equal and normal. GASTROINTESTINAL: Soft, nontender abdomen with active bowel sounds. No mass or distension. MUSCULOSKELETAL: Obese body habitus. NEUROLOGIC: Alert, conversant. PSYCHIATRIC: Normal mood. Emergency Department Course ECG (17:20:59): Rate 85 bpm. IN interval 134. QRS duration 74. QT/QTc 362/430. P-R-T axes 52 29 33. Sinus rhythm. Normal ECG. No significant change when compared to EKG dated 04/07/17. Interpreted at 1725 by Humberto Burnett MD. Imaging: Radiographic findings were communicated with the patient who voiced understanding of the findings. Abdomen US, limited (RUQ only) IMPRESSION: ??Negative abdominal ultrasound. As read by radiology. Chest XR, PA, & LAT IMPRESSION: No acute disease. As read by radiology. Laboratory: CBC: WNL (WBC 9.4, HGB 15.4, PLT 240) CMP: Glucose 278 (H), Creatinine 0.49 (L), ALT 170 (H), AST 73 (H) o/w WNL Lipase: 709 (H) Troponin : <0.015 D dimer: 0.3 TSH with free T4: 1.91 Emergency Department Course: Past medical records, nursing notes, and vitals reviewed. 1920: I performed an exam of the patient and obtained history, as documented above. IV inserted and blood drawn. The patient was sent for a right upper quadrant abdominal ultrasound and chest x-ray while in the emergency department, findings above. 2112: I rechecked the patient. Explained findings to the patient. Findings and plan explained to the Patient who consents to admission. 2132: Discussed the patient with Dr. Schaefer, who will admit the patient to a obs bed for further monitoring, evaluation, and treatment. Impression & Plan Medical Decision Making: Becki Ridley presents feeling in general ill with what she seems to describe as generalized weakness. She also describes a band of chest discomfort and some degree of upper abdominal discomfort. Not classic pain for acute coronary syndrome or angina given that it is positional and seems to be exacerbated by eating at times. Evaluation was relatively unrevealing. Lipase elevated but not per se to a diagnostic range for pancreatitis. The patient felt too overwhelmed by her symptoms to be discharged for follow up so she will be admitted for observation, further monitoring, and testing. Diagnosis: ICD-10-CM 1. Generalized weakness R53.1 2. Chest pain, unspecified type R07.9 3. Elevated lipase R74.8 Disposition: Admitted Comfort Dwyer 08/20/2018 EMERGENCY DEPARTMENT Scribe Disclosure: I, Comfort Dwyer, am serving as a scribe at 7:21 PM on 08/20/2018 to document services personally performed by Aleks Burnett MD based on my observations and the provider's statements to me. Aleks Burnett MD 08/21/18 1409 RATUS OPERATOR documented in this encounter Miscellaneous Notes Plan of Care - Lisbet Patel RN - 08/22/2018 5:00 PM CST Alert and oriented, vss. Cont with bloating feeling aftewr eating, will follow up with primary MD litopt. Apt tomorrow. Discharge instructions given. Denies questions. Discharged via w/c RATUS OPERATOR Plan of Care - Alyx Alegre RN - 08/22/2018 1:48 PM CST Pt is A/O x4. SBA. VSS. C/O abd discomfort and pain when eating and drinking. Mod-carb diet. IVF stopped, and pt to ambulate in hallways. Ambulated 2x this shift. Pt currently getting HIDA scan. Further discharge plans pending test results. RATUS OPERATOR Plan of Care - Alyx Alegre RN - 08/22/2018 12:00 PM CST PRIMARY DIAGNOSIS: GENERALIZED WEAKNESS OUTPATIENT/OBSERVATION GOALS TO BE MET BEFORE DISCHARGE 1. Orthostatic performed: N/A 2. Tolerating PO medications: Yes 3. Return to near baseline physical activity: Yes 4. Cleared for discharge by consultants (if involved): No License Inspector Nurse Safe discharge environment identified: No Barriers to discharge: Yes, waiting to have HIDA scan performed prior to discharge decision Entered by: Alyx Alegre 08/22/2018 12:40 PM Please review provider order for any additional goals. Nurse to notify provider when observation goals have been met and patient is ready for discharge. RATUS OPERATOR Plan of Care - Alyx Alegre RN - 08/22/2018 8:00 AM CST PRIMARY DIAGNOSIS: GENERALIZED WEAKNESS OUTPATIENT/OBSERVATION GOALS TO BE MET BEFORE DISCHARGE 1. Orthostatic performed: N/A 2. Tolerating PO medications: Yes 3. Return to near baseline physical activity: Yes 4. Cleared for discharge by consultants (if involved): No License Inspector Nurse Safe discharge environment identified: No Barriers to discharge: Yes, needs to be seen by and cleared for discharge Entered by: Alyx Alegre 08/22/2018 8:46 AM Please review provider order for any additional goals. Nurse to notify provider when observation goals have been met and patient is ready for discharge. RATUS OPERATOR Plan of Care - Ceci Plummer RN - 08/22/2018 6:28 AM CST AVSS; pt stated she still has some bloating/discomfort after po intake, relieved some with flatus; declining pain meds; pt denied nausea; tolerating diet; neuro's intact; up with SBA; voiding; IV NS at100 mls/hr; continue to monitor. RATUS OPERATOR Plan of Care - Hal Carroll RN - 08/21/2018 10:29 PM CST A/OX4. VSS on RA. Abd discomfort, declines pain meds. C/o nausea, declines nausea meds. Neuros WNL. Gregoria mod carb diet well. BG check, no coverage needed. Adequate UOP. SBA. RATUS OPERATOR Plan of Care - Maranda Chavarria RN - 08/21/2018 2:49 PM CST A&Ox4. VSS on RA. C/O abdominal discomfort, bloating w/ eating or drinking. C/O intermittent nausea and blurred vision, Neuro's WNL, Dr. Alicea updated, will monitor. Abdominal pain managed w/ heatpack. Tele SR, trops negative x3. Abd CT negative for anything acute. IVF infusing. UA negative, UC still pending. C/O weakness when ambulatingContinue to monitor. Lipase 569, improving. Mod Carb diet,BG 106, 100, appetite good. SBA. Continue to monitor. RATUS OPERATOR Plan of Care - Maranda Chavarria RN - 08/21/2018 12:25 PM CST -diagnostic tests and consults completed and resulted : NOT MET, CT abdomen pending -vital signs normal or at patient baseline : MET Nurse to notify provider when observation goals have been met and patient is ready for discharge. RATUS OPERATOR Plan of Care - Maranda Chavarria RN - 08/21/2018 8:00 AM CST -diagnostic tests and consults completed and resulted : NOT MET -vital signs normal or at patient baseline : MET Nurse to notify provider when observation goals have been met and patient is ready for discharge. RATUS OPERATOR Plan of Care - Karin Hogan RN - 08/21/2018 4:13 AM CST -diagnostic tests and consults completed and resulted : NOT MET -vital signs normal or at patient baseline : MET Nurse to notify provider when observation goals have been met and patient is ready for discharge. C/O GI distention with sips of chicken broth/bites of jello. Denies nausea. This sensation spread tochest area but subsided in a few minutes. C/O vaginal discharge/pelvic pain. UA sent. BP soft. Generalized weakness, SBA. Troponins negative. Lipase 709. NPO since midnight. Anticipates CT abd/pelvis, a.m. Labs, SW consult. RATUS OPERATOR Plan of Care - Hal Carroll RN - 08/20/2018 11:38 PM CST Pt arrived from ED at around 2230hrs. VSS on RA. C/o RUQ, declines meds. IVF infusing. Due to void. Home meds sent to security. Trops negative so far. RATUS OPERATOR Provider Notification - Karin Hogan RN - 08/20/2018 11:32 PM CST MD Notification Notified Person: MD Notified Person Name: Dr Schaefer Notification Date/Time: , 0901 Notification Interaction: orders Purpose of Notification: need orders for DM patient Orders Received: Comments: RATUS OPERATOR Pharmacy-Admission Medication History - Deyanira Rodríguez [facility] - 08/20/2018 9:54 PM CST Admission medication history interview status for the 08/20/2018 admission is complete. See [facility] admission navigator for prior to admission medications Medication history source reliability:Good Actions taken by pharmacist (provider contacted, etc):None Additional medication history information not noted on [employer] med list :None Medication reconciliation/reorder completed by provider prior to medication history? No Time spent in this activity: 10 minutes Prior to Admission medications Medication Sig Last Dose Taking? Auth Provider albuterol (2.5 MG/3ML) 0.083% neb solution Take 1 vial (2.5 mg) by nebulization every 6 hours as needed for shortness of breath / dyspnea or wheezing prn Yes Bria Bustamante PA-C amoxicillin-clavulanate (AUGMENTIN) 875-125 MG tablet Take 1 tablet by mouth 2 times daily for 10 days 08/19/2018 at Unknown time Yes Ramakrishna Marin MD EPINEPHrine (EPIPEN 2-KITTY) 0.3 MG/0.3ML injection Inject 0.3 mg into the muscle once as needed. prn Yes Reported, Patient fluticasone-vilanterol (BREO ELLIPTA) 200-25 MCG/INH inhaler Inhale 1 puff into the lungs daily 08/20/2018 at Unknown time Yes Krystin Christie APRN CNP glipiZIDE (GLUCOTROL XL) 5 MG 24 hr tablet Take 1 tablet (5 mg) by mouth daily 08/20/2018 at Unknown time Yes Krystin Christie APRN CNP ipratropium - albuterol 0.5 mg/2.5 mg/3 mL (DUONEB) 0.5-2.5 (3) MG/3ML neb solution Take 1 vial (3 mLs) by nebulization every 6 hours as needed for shortness of breath / dyspnea or wheezing prn Yes Ramakrishna Marin MD metFORMIN (GLUCOPHAGE-XR) 500 MG 24 hr tablet TAKE 4 TABLETS(2000 MG) BY MOUTH DAILY WITH DINNER 08/20/2018 at Unknown time Yes Mare Tracey PA-C predniSONE (DELTASONE) 20 MG tablet Take 60 mg by mouth daily for 3 days, THEN 40 mg daily for 3 days, THEN 20 mg daily for 3 days, THEN 10 mg daily for 3 days. 08/20/2018 at 40mg Yes Krystin Christie APRN CNP Vitamin D, Cholecalciferol, 1000 units TABS Take 1,000 Units by mouth daily Past Month at Unknown time Yes Unknown, Entered By History blood glucose monitoring (JAYLENE CONTOUR NEXT) test strip Use to test blood sugar 2 times daily or asdirected. Tali Viclhis MD blood glucose monitoring (JAYLENE MICROLET) lancets Use to test blood sugar 2 times daily or as directed. Tali Vilchis MD liraglutide (VICTOZA PEN) 18 MG/3ML solution Inject 0.6 mg Subcutaneous daily not yet started Krystin Christie APRN CNP RATUS OPERATOR documented in this encounter Plan of Treatment Upcoming Encounters Date Type Specialty Care Team Description 05/19/2022 Office Visit ENT Dima Hidalgo M D [address] [place], [place] [address] (Wo rk) 08/02/2022 Office Visit Neurology Yair Campos MD [address] [place] [address] (Wo rk) documented as of this encounter Procedures Procedure Name Priority Date/Time Associated Comments Diagnosis NM HEPATOBILIARY SCAN Routine 08/22/2018 3:04 PM Results for this WITH GB EF APPARATUS OPERATOR procedure are i n the results section. GLUCOSE BY METER Routine 08/22/2018 12:40 Generalized Results for this PM APPARATUS OPERATOR weakness procedure are i n the results section. GLUCOSE BY METER Routine 08/22/2018 6:52 AM Generalized Resul ts for this APPARATUS OPERATOR weakness procedure are i n the results section. CBC WITH PLATELETS & Routine 08/22/2018 6:12 AM Generalized R esults for this DIFFERENTIAL APPARATUS OPERATOR weakness procedure are i n the results section. COMPREHENSIVE Routine 08/22/2018 6:12 AM Generalized Results for this METABOLIC PANEL APPARATUS OPERATOR weakness procedure ar e in the results section. GLUCOSE BY METER Routine 08/22/2018 2:16 AM Generalized Resul ts for this APPARATUS OPERATOR weakness procedure are i n the results section. GLUCOSE BY METER Routine 08/21/2018 9:40 PM Generalized Resul ts for this APPARATUS OPERATOR weakness procedure are i n the results section. GLUCOSE BY METER Routine 08/21/2018 4:37 PM Generalized Resul ts for this APPARATUS OPERATOR weakness procedure are i n the results section. GLUCOSE BY METER Routine 08/21/2018 2:40 PM Generalized Resul ts for this APPARATUS OPERATOR weakness procedure are i n the results section. GLUCOSE BY METER Routine 08/21/2018 9:25 AM Generalized Resul ts for this APPARATUS OPERATOR weakness procedure are i n the results section. CT ABDOMEN PELVIS W Routine 08/21/2018 8:41 AM Re sults for this CONTRAST APPARATUS OPERATOR procedure are i n the results section. CBC WITH PLATELETS & Routine 08/21/2018 6:11 AM Generalized R esults for this DIFFERENTIAL APPARATUS OPERATOR weakness procedure are i n the results section. TROPONIN I Routine 08/21/2018 6:11 AM Generalized Results f or this APPARATUS OPERATOR weakness procedure are i n the results section. LIPASE Routine 08/21/2018 6:11 AM Generalized Results f or this APPARATUS OPERATOR weakness procedure are i n the results section. HEPATIC FUNCTION PANEL Routine 08/21/2018 6:11 AM Generalized Results for this APPARATUS OPERATOR weakness procedure are i n the results section. BASIC METABOLIC PANEL Routine 08/21/2018 6:11 AM Generalized Results for this APPARATUS OPERATOR weakness procedure are i n the results section. GLUCOSE BY METER Routine 08/21/2018 6:00 AM Generalized Resul ts for this APPARATUS OPERATOR weakness procedure are i n the results section. URINE MACROSCOPIC WITH Routine 08/21/2018 1:30 AM Generalized Results for this REFLEX TO MICRO APPARATUS OPERATOR weakness procedure ar e in the results section. URINE CULTURE Routine 08/21/2018 1:30 AM Generalized Results for this APPARATUS OPERATOR weakness procedure are i n the results section. GLUCOSE BY METER Routine 08/21/2018 12:41 Generalized Results for this AM APPARATUS OPERATOR weakness procedure are i n the results section. TROPONIN I Routine 08/21/2018 12:40 Generalized Results for this AM APPARATUS OPERATOR weakness procedure are i n the results section. XR CHEST 2 VIEWS STAT 08/20/2018 9:07 PM Resul ts for this APPARATUS OPERATOR procedure are i n the results section. US ABDOMEN LIMITED STAT 08/20/2018 8:29 PM Res ults for this APPARATUS OPERATOR procedure are i n the results section. EKG 12-LEAD, TRACING STAT 08/20/2018 5:20 PM R esults for this ONLY APPARATUS OPERATOR procedure are i n the results section. CBC WITH PLATELETS & STAT 08/20/2018 5:14 PM R esults for this DIFFERENTIAL APPARATUS OPERATOR procedure are i n the results section. TSH WITH FREE T4 Routine 08/20/2018 5:14 PM Resul ts for this REFLEX APPARATUS OPERATOR procedure are i n the results section. TROPONIN I STAT 08/20/2018 5:14 PM Results f or this APPARATUS OPERATOR procedure are i n the results section. LIPASE STAT 08/20/2018 5:14 PM Results f or this APPARATUS OPERATOR procedure are i n the results section. D DIMER QUANTITATIVE Routine 08/20/2018 5:14 PM R esults for this APPARATUS OPERATOR procedure are i n the results section. COMPREHENSIVE STAT 08/20/2018 5:14 PM Results for this METABOLIC PANEL APPARATUS OPERATOR procedure ar e in the results section. documented in this encounter Results NM Hepatobiliary Scan w GB EF (08/22/2018 3:04 PM APPARATUS OPERATOR) Anatomical Region Laterality Modality Abdomen/Pelvis Nuclear Medicine Specimen (Source) Anatomical Location Collection Method / Collectio n Time Received Time / Laterality Volume Impressions 08/22/2018 4:01 PM APPARATUS OPERATOR IMPRESSION: 1. No evidence for acute cholecystitis o r biliary obstruction. 2. Gallbladder ejection fraction is 75%. 3. The patient describes right upper ash drant pain with cholecystokinin administration. DENIA FABIAN MD Narrative 08/22/2018 4:01 PM APPARATUS OPERATOR NUCLEAR MEDICINE HEPATOBILIARY SCAN WITH GALLBLADDER EJECTION FRACTION ??08/22/2018 3:04 PM TECHNIQUE: ??The patient was injected wi th 6.4 mCi technetium-99m mebrofenin IV. The patient was also give n cholecystokinin. ??Dynamic imaging over biliary system was performe d. Region of interest placed over the gallbladder to calculate ejecti on fraction. HISTORY: ??Nausea, vomiting; persistent bloating following p.o. intake with elevated transaminases, right upper quadrant ultrasound and CT abdominal unrevealing. COMPARISON: Nuclear Study: None. Other Relevant Studies: CT abdomen and p dunia 08/21/2018, ultrasound abdomen 08/20/2018. FINDINGS: ??There is radiotracer uptake identified within the gallbladder lumen, biliary tree, bowel, and liver. Gallbladder ejection fraction is 75%. The patient ex periences right upper quadrant pain with cholecystokinin. Procedure Note Denia Fabian MD - 08/22/2018Forma tting of this note might be different from the original. NUCLEAR MEDICINE HEPATOBILIARY SCAN WITH GALLBLADDER EJECTION FRACTION 08/22/2018 3:04 PM TECHNIQUE: The patient was injected with 6.4 mCi technetium-99m mebrofenin IV. The patient was also give n cholecystokinin. Dynamic imaging over biliary system was performe d. Region of interest placed over the gallbladder to calculate ejecti on fraction. HISTORY: Nausea, vomiting; persistent bl oating following p.o. intake with elevated transaminases, right upper quadrant ultrasound and CT abdominal unrevealing. COMPARISON: Nuclear Study: None. Other Relevant Studies: CT abdomen and p dunia 08/21/2018, ultrasound abdomen 08/20/2018. FINDINGS: There is radiotracer uptake id entified within the gallbladder lumen, biliary tree, bowel, and liver. Gallbladder ejection fraction is 75%. The patient ex periences right upper quadrant pain with cholecystokinin. IMPRESSION: 1. No evidence for acute cholecystitis o r biliary obstruction. 2. Gallbladder ejection fraction is 75%. 3. The patient describes right upper ash drant pain with cholecystokinin administration. DENIA FABIAN MD Daynatarsha Turner Nelson DO IMG NM ORDERABLES (ABNORMAL) Glucose by meter (08/22/2018 12:40 PM APPARATUS OPERATOR) athologist Signature Glucose 173 (H) 70 - 99 08/22/2018 POINT OF CARE mg/dL 12:52 PM APPARATUS OPERATOR TEST, GLUCOSE Specimen Anatomical Collection Method Collection Time Receive d Time (Source) Location / / Volume Laterality 08/22/2018 12:40 08/22/2018 PM APPARATUS OPERATOR 12:52 PM APPARATUS OPERATOR Cherrie Schaefer MD LAB - [facility] POCT Performing Organization Address City/State/ZIP Code Phon e Number F[facility] POINT OF CARE TEST, GLUCOSE POINT OF CARE TEST, GLUCOSE (ABNORMAL) Glucose by meter (08/22/2018 6:52 AM APPARATUS OPERATOR) athologist Signature Glucose 139 (H) 70 - 99 08/22/2018 POINT OF CARE mg/dL 7:03 AM APPARATUS OPERATOR TEST, GLUCOSE Specimen Anatomical Collection Method Collection Time Receive d Time (Source) Location / / Volume Laterality 08/22/2018 6:52 AM 9 7:03 APPARATUS OPERATOR AM APPARATUS OPERATOR Cherrie Schaefer MD LAB - [facility] POCT Performing Organization Address City/State/ZIP Code Phon e Number FV POINT OF CARE TEST, GLUCOSE POINT OF CARE TEST, GLUCOSE CBC with platelets differential (08/22/2018 6:12 AM APPARATUS OPERATOR) [facility] gist Method Time Signature WBC 9.1 4.0 - 08/22/2018 [facility] 11.0 6:19 AM [facility] 10e9/L [facility] RBC Count 4.72 3.8 - 5.2 08/22/2018 [facility] 10e12/L 6:19 AM [facility] Hemoglobin 13.0 11.7 - 08/22/2018 [facility] 15.7 g/dL 6:19 AM [facility] Hematocrit 38.6 35.0 - 08/22/2018 [facility] 47.0 % 6:19 AM [facility] MCV 82 78 - 100 08/22/2018 [facility] fl 6:19 AM [facility] MCH 27.5 26.5 - 08/22/2018 [facility] 33.0 pg 6:19 AM [facility] MCHC 33.7 31.5 - 08/22/2018 [facility] 36.5 g/dL 6:19 AM [facility] RDW 13.5 10.0 - 08/22/2018 [facility] 15.0 % 6:19 AM [facility] Platelet Count 199 150 - 450 08/22/2018 [facility] 10e9/L 6:19 AM [facility] Diff Method Automated 08/22/2018 [facility] Method 6:19 AM [facility] % Neutrophils 39.2 % 08/22/2018 [facility] 6:19 AM [facility] % Lymphocytes 53.3 % 08/22/2018 [facility] 6:19 AM [facility] % Monocytes 5.9 % 08/22/2018 [facility] 6:19 AM [facility] % Eosinophils 1.1 % 08/22/2018 [facility] 6:19 AM [facility] % Basophils 0.2 % 08/22/2018 [facility] 6:19 AM [facility] % Immature 0.3 % 08/22/2018 [facility] Granulocytes 6:19 AM [facility] Nucleated RBCs 0 0 /100 08/22/2018 [facility] 6:19 AM [facility] Absolute 3.6 1.6 - 8.3 08/22/2018 [facility] Neutrophil 10e9/L 6:19 AM [facility] Absolute 4.8 0.8 - 5.3 08/22/2018 [facility] Lymphocytes 10e9/L 6:19 AM [facility] Absolute 0.5 0.0 - 1.3 08/22/2018 [facility] Monocytes 10e9/L 6:19 AM [facility] Absolute 0.1 0.0 - 0.7 08/22/2018 [facility] Eosinophils 10e9/L 6:19 AM [facility] Absolute 0.0 0.0 - 0.2 08/22/2018 [facility] Basophils 10e9/L 6:19 AM [facility] Abs Immature 0.0 0 - 0.4 08/22/2018 [facility] Granulocytes 10e9/L 6:19 AM [facility] Absolute 0.0 08/22/2018 [facility] Nucleated RBC 6:19 AM [facility] Specimen Anatomical Collection Method Collection Time Receive d Time (Source) Location / / Volume Laterality Blood specimen 08/22/2018 6:12 AM 02/06/2 019 6:13 (specimen) APPARATUS OPERATOR AM APPARATUS OPERATOR Denia Alicea MD LAB - BLOOD ORDERABLES Performing Organization Address City/State/ZIP Code Phon e Number M [facility] [address] [place] [address] [facility] [address] [place] [address], U SA [phone] (ABNORMAL) Comprehensive metabolic panel (08/22/2018 6:12 AM APPARATUS OPERATOR) athologist Signature Sodium 140 133 - 144 08/22/2018 [place] mmol/L 6:44 AM [facility] Potassium 4.3 3.4 - 5.3 08/22/2018 [place] mmol/L 6:44 AM [facility] Comment: Specimen slightly hemolyzed, po tassium may be falsely elevated Chloride 110 (H) 94 - 109 mmol/L 08/22/2018 6:44 AM [facility] Carbon Dioxide 25 20 - 32 mmol/L 08/22/2018 6:44 AM [facility] Anion Gap 5 3 - 14 mmol/L 08/22/2018 6:44 AM [facility] Glucose 142 (H) 70 - 99 mg/dL 08/22/2018 6:44 AM [facility] Urea Nitrogen 19 7 - 30 mg/dL 08/22/2018 6:44 AM [facility] Creatinine 0.61 0.52 - 1.04 mg/dL 08/22/2018 6:44 AM [facility] GFR Estimate >90 >60 08/22/2018 6:44 AM [facility] mL/min/{1.73_m2} [facility] Comment: Non GFR Calc Starting 07/03/2018, serum creatinine ba sed estimated GFR (eGFR) will be calculated using the Chronic Kidney Dise ase Epidemiology Collaboration (CKD-EPI) equation. GFR Estimate If >90 >60 mL/min/{1.73_m2} 08/22/2018 6: 44 AM [facility] Comment: GFR Calc Starting 07/03/2018, serum creatinine ba sed estimated GFR (eGFR) will be calculated using the Chronic Kidney Dise ase Epidemiology Collaboration (CKD-EPI) equation. Calcium 8.3 (L) 8.5 - 10.1 08/22/2018 6:44 AM [facility] mg/dL [facility] Bilirubin Total 0.4 0.2 - 1.3 mg/dL 08/22/2018 6:44 AM [facility] Albumin 2.6 (L) 3.4 - 5.0 g/dL 08/22/2018 6:44 AM [facility] Protein Total 5.7 (L) 6.8 - 8.8 g/dL 08/22/2018 6:44 AM [facility] Alkaline Phosphatase 48 40 - 150 U/L 08/22/2018 6:44 AM [facility] ALT 104 (H) 0 - 50 U/L 08/22/2018 6:44 AM [facility] AST 50 (H) 0 - 45 U/L 08/22/2018 6:44 AM [facility] Comment: Specimen is hemolyzed which can falsely elevate AST. Analysis of a non-hemolyzed specimen may result in a l ower value. Specimen Anatomical Collection Method Collection Time Receive d Time (Source) Location / / Volume Laterality Blood specimen 08/22/2018 6:12 AM 019 6:13 (specimen) APPARATUS OPERATOR AM APPARATUS OPERATOR Denia Alicea MD LAB - BLOOD ORDERABLES Performing Organization Address City/State/ZIP Code Phon e Number M [facility] [address] [phone] [facility] [address] [place] [address], U [phone] (ABNORMAL) Glucose by meter (08/22/2018 2:16 AM APPARATUS OPERATOR) athologist Signature Glucose 162 (H) 70 - 99 08/22/2018 POINT OF CARE mg/dL 3:30 AM APPARATUS OPERATOR TEST, GLUCOSE Specimen Anatomical Collection Method Collection Time Receive d Time (Source) Location / / Volume Laterality 08/22/2018 2:16 AM 9 3:30 APPARATUS OPERATOR AM APPARATUS OPERATOR Cherrie Schaefer MD LAB - [facility] POCT Performing Organization Address City/State/ZIP Code Phon e Number [facility] POINT OF CARE TEST, GLUCOSE POINT OF CARE TEST, GLUCOSE (ABNORMAL) Glucose by meter (08/21/2018 9:40 PM APPARATUS OPERATOR) P athologist Signature Glucose 119 (H) 70 - 99 08/21/2018 POINT OF CARE mg/dL 10:02 PM APPARATUS OPERATOR TEST, GLUCOSE Specimen Anatomical Collection Method Collection Time Receive d Time (Source) Location / / Volume Laterality 08/21/2018 9:40 PM 9 APPARATUS OPERATOR 10:02 PM APPARATUS OPERATOR Cherrie Schaefer MD LAB - [facility] POCT Performing Organization Address City/[facility]/ZIP Code Phon e Number [facility]V POINT OF CARE TEST, GLUCOSE POINT OF CARE TEST, GLUCOSE (ABNORMAL) Glucose by meter (08/21/2018 4:37 PM APPARATUS OPERATOR) P athologist Signature Glucose 130 (H) 70 - 99 08/21/2018 POINT OF CARE mg/dL 4:50 PM APPARATUS OPERATOR TEST, GLUCOSE Specimen Anatomical Collection Method Collection Time Receive d Time (Source) Location / / Volume Laterality 08/21/2018 4:37 PM 9 4:50 APPARATUS OPERATOR PM APPARATUS OPERATOR Cherrie ELDER - XU POCT Performing Organization Address City/[facility]/ZIP Code Phon e Number FV POINT OF CARE TEST, GLUCOSE POINT OF CARE TEST, GLUCOSE (ABNORMAL) Glucose by meter (08/21/2018 2:40 PM APPARATUS OPERATOR) P athologist Signature Glucose 100 (H) 70 - 99 08/21/2018 POINT OF CARE mg/dL 3:29 PM APPARATUS OPERATOR TEST, GLUCOSE Specimen Anatomical Collection Method Collection Time Receive d Time (Source) Location / / Volume Laterality 08/21/2018 2:40 PM 9 3:29 APPARATUS OPERATOR PM APPARATUS OPERATOR Cherrie Schaefer MD LAB - [facility] POCT Performing Organization Address City/State/ZIP Code Phon e Number FV POINT OF CARE TEST, GLUCOSE POINT OF CARE TEST, GLUCOSE (ABNORMAL) Glucose by meter (08/21/2018 9:25 AM APPARATUS OPERATOR) P athologist Signature Glucose 106 (H) 70 - 99 08/21/2018 POINT OF CARE mg/dL 9:38 AM APPARATUS OPERATOR TEST, GLUCOSE Specimen Anatomical Collection Method Collection Time Receive d Time (Source) Location / / Volume Laterality 08/21/2018 9:25 AM 9 9:38 APPARATUS OPERATOR AM APPARATUS OPERATOR Cherrie Schaefer MD [facility] POCT Performing Organization Address City/State/ZIP Code Phon e Number FV POINT OF CARE TEST, GLUCOSE POINT OF CARE TEST, GLUCOSE CT Abdomen Pelvis w Contrast (08/21/2018 8:41 AM APPARATUS OPERATOR) Anatomical Region Laterality Modality Abdomen/Pelvis, SUBRAD CT BODY, UMP CT ABDOMEN PELVIS, Computed Tomography RAD CT Specimen (Source) Anatomical Location Collection Method / Collectio n Time Received Time / Laterality Volume Impressions 08/21/2018 4:29 PM APPARATUS OPERATOR IMPRESSION: No acute findings in the abdomen or pelvis. DEYANIRA TRUJILLO DO Narrative 08/21/2018 4:[address] ABDOMEN AND PELVIS WITH CONTRAST ?? 08/21/2018 8:41 AM HISTORY: See the Clinical Information fo r Interpreting Provider. Abdominal pain, elevated lipase and LFTs , evaluate for signs of pancreatitis, other acute findings. TECHNIQUE: CT abdomen and pelvis with 92 mL Isovue-370 IV. Radiation dose for this scan was reduced using aut omated exposure control, adjustment of the mA and/or kV according to patient size, or iterative reconstruction technique. COMPARISON: 03/30/2017 FINDINGS: Bases: Lung bases are clear. No pleural effusion, pericardial effusion or pneumothorax. Abdomen: The spleen, kidneys, adrenal gl ands, liver, gallbladder and pancreas show no focal abnormality. No i ntrahepatic or extra hepatic biliary dilatation. Hepatic and portal v eins are patent. No intraperitoneal free air or free fluid. Small and large bowel are normal in beth skinny without evidence of obstruction. Uterus is normal. Bladder i s decompressed. No abdominal or pelvic lymphadenopathy. No abdominal aortic aneurysm. Bones: No suspicious bony lesions. Procedure Note Deyanira Trujillo DO - 2018 CT ABDOMEN AND PELVIS WITH CONTRAST 2018 8:41 AM HISTORY: See the Clinical Information fo r Interpreting Provider. Abdominal pain, elevated lipase and LFTs , evaluate for signs of pancreatitis, other acute findings. TECHNIQUE: CT abdomen and pelvis with 92 mL Isovue-370 IV. Radiation dose for this scan was reduced using aut omated exposure control, adjustment of the mA and/or kV according to patient size, or iterative reconstruction technique. COMPARISON: 03/30/2017 FINDINGS: Bases: Lung bases are clear. No pleural effusion, pericardial effusion or pneumothorax. Abdomen: The spleen, kidneys, adrenal gl ands, liver, gallbladder and pancreas show no focal abnormality. No i ntrahepatic or extra hepatic biliary dilatation. Hepatic and portal v eins are patent. No intraperitoneal free air or free fluid. Small and large bowel are normal in beth skinny without evidence of obstruction. Uterus is normal. Bladder i s decompressed. No abdominal or pelvic lymphadenopathy. No abdominal aortic aneurysm. Bones: No suspicious bony lesions. IMPRESSION: No acute findings in the abd omen or pelvis. DEYANIRA TRUJILLO DO Cherrie Schaefer MD IMG CT ORDERABLES Troponin I (08/21/2018 6:11 AM APPARATUS OPERATOR) athologist Signature Troponin I ES <0.015 0.000 - 08/21/2018 [place] 0.045 ug/L 6:59 AM [facility] Comment: The 99th percentile for upper reference range is 0.045 ug/L. ??Troponin values in the range of 0.045 - 0.120 ug/L may b e associated with risks of adverse clinical events. Specimen Anatomical Collection Method Collection Time Receive d Time (Source) Location / / Volume Laterality Blood specimen 08/21/2018 6:11 AM 019 6:12 (specimen) APPARATUS OPERATOR AM APPARATUS OPERATOR Cherrie Schaefer MD LAB - BLOOD ORDERABLES Performing Organization Address City/State/ZIP Code Phon e Number [facility] [address] [address] [facility] [address] [address], [place] [phone] (ABNORMAL) Lipase (08/21/2018 6:11 AM APPARATUS OPERATOR) athologist Signature Lipase 569 (H) 73 - 393 08/21/2018 [place] U/L 6:56 AM [facility] Specimen Anatomical Collection Method Collection Time Receive d Time (Source) Location / / Volume Laterality Blood specimen 08/21/2018 6:11 AM 019 6:12 (specimen) APPARATUS OPERATOR AM APPARATUS OPERATOR Cherrie Schaefer MD LAB - BLOOD ORDERABLES Performing Organization Address City/State/ZIP Code Phon e Number [facility] [address] [place] [address] [facility] [address] [place] [address], [place] [phone] (ABNORMAL) Hepatic panel (08/21/2018 6:11 AM APPARATUS OPERATOR) Analysis Performed At Patho logist Time Signature Bilirubin Direct 0.2 0.0 - 0.2 08/21/2018 [place] mg/dL 6:56 AM [facility] Bilirubin Total 0.7 0.2 - 1.3 08/21/2018 [place] mg/dL 6:56 AM [facility] Albumin 3.0 (L) 3.4 - 5.0 08/21/2018 [place] g/dL 6:56 AM [facility] Protein Total 6.8 6.8 - 8.8 08/21/2018 [place] g/dL 6:56 AM [facility] Alkaline 59 40 - 150 08/21/2018 [place] Phosphatase U/L 6:56 AM [facility] ALT 131 (H) 0 - 50 U/L 08/21/2018 [place] 6:56 AM [facility] AST 40 0 - 45 U/L 08/21/2018 [place] 6:56 AM [facility] Specimen Anatomical Collection Method Collection Time Receive d Time (Source) Location / / Volume Laterality Blood specimen 08/21/2018 6:11 AM 019 6:12 (specimen) APPARATUS OPERATOR AM APPARATUS OPERATOR Cherrie Schaefer MD LAB - BLOOD ORDERABLES Performing Organization Address City/State/ZIP Code Phon e Number [facility] [address] [place] [address] [facility] [address] [place] [address], [place] [phone] (ABNORMAL) Basic metabolic panel (08/21/2018 6:11 AM APPARATUS OPERATOR) P athologist Signature Sodium 139 133 - 144 08/21/2018 [place] mmol/L 6:47 AM [facility] Potassium 3.8 3.4 - 5.3 08/21/2018 [place] mmol/L 6:47 AM [facility] Chloride 106 94 - 109 08/21/2018 [place] mmol/L 6:47 AM [facility] Carbon Dioxide 29 20 - 32 08/21/2018 [place] mmol/L 6:54 AM [facility] Anion Gap 4 3 - 14 08/21/2018 [place] mmol/L 6:54 AM [facility] Glucose 143 (H) 70 - 99 08/21/2018 [place] mg/dL 6:54 AM [facility] Urea Nitrogen 14 7 - 30 08/21/2018 [place] mg/dL 6:54 AM [facility] Creatinine 0.60 0.52 - 08/21/2018 [place] 1.04 mg/dL 6:54 AM [facility] GFR Estimate >90 >60 08/21/2018 [place] mL/min/{1. 6:54 AM [facility] 73_m2} HOSPITAL Comment: Non GFR Calc Starting 07/03/2018, serum creatinine ba sed estimated GFR (eGFR) will be calculated using the Chronic Kidney Dise [facility] Epidemiology Collaboration (CKD-EPI) equation. GFR Estimate If >90 >60 mL/min/{1.73_m2} 08/21/2018 6: 54 AM [facility] Comment: GFR Calc Starting 07/03/2018, serum creatinine ba sed estimated GFR (eGFR) will be calculated using the Chronic Kidney Dise [facility] Epidemiology Collaboration (CKD-EPI) equation. Calcium 8.7 8.5 - 10.1 mg/dL 08/21/2018 6:54 AM [facility] Specimen Anatomical Collection Method Collection Time Receive d Time (Source) Location / / Volume Laterality Blood specimen 08/21/2018 6:11 AM 019 6:12 (specimen) APPARATUS OPERATOR AM [facility] Cherrie Schaefer MD LAB - BLOOD ORDERABLES Performing Organization Address City/State/ZIP Code Phon e Number [facility] [address] [address] [facility] [address] [address], [place] [phone] (ABNORMAL) CBC with platelets differential (08/21/2018 6:11 AM [facility]UST) [facility] gist Method Time Signature WBC 11.2 (H) 4.0 - 08/21/2018 [facility] 11.0 6:42 AM [facility] 10e9/L [facility] RBC Count 5.25 (H) 3.8 - 5.2 08/21/2018 [facility] 10e12/L 6:42 AM [facility] Hemoglobin 14.6 11.7 - 08/21/2018 [facility] 15.7 g/dL 6:42 AM [facility] Hematocrit 42.3 35.0 - 08/21/2018 [facility] 47.0 % 6:42 AM [facility] MCV 81 78 - 100 08/21/2018 [facility] fl 6:42 AM [facility] MCH 27.8 26.5 - 08/21/2018 [facility] 33.0 pg 6:42 AM [facility] MCHC 34.5 31.5 - 08/21/2018 [facility] 36.5 g/dL 6:42 AM [facility] RDW 13.4 10.0 - 08/21/2018 [facility] 15.0 % 6:42 AM [facility] Platelet Count 232 150 - 450 08/21/2018 [facility] 10e9/L 6:42 AM [facility] Diff Method Automated 08/21/2018 [facility] Method 8:40 AM [facility] % Neutrophils 46.7 % 08/21/2018 [facility] 8:40 AM [facility] % Lymphocytes 47.7 % 08/21/2018 [facility] 8:40 AM [facility] % Monocytes 4.5 % 08/21/2018 [facility] 8:40 AM [facility] % Eosinophils 0.5 % 08/21/2018 [facility] 8:40 AM [facility] % Basophils 0.2 % 08/21/2018 [facility] 8:40 AM [facility] % Immature 0.4 % 08/21/2018 [facility] Granulocytes 8:40 AM [facility] Nucleated RBCs 0 0 /100 08/21/2018 [facility] 8:40 AM [facility] Absolute 5.3 1.6 - 8.3 08/21/2018 [facility] Neutrophil 10e9/L 8:40 AM [facility] Absolute 5.4 (H) 0.8 - 5.3 08/21/2018 [facility] Lymphocytes 10e9/L 8:40 AM [facility] Absolute 0.5 0.0 - 1.3 08/21/2018 [place] Monocytes 10e9/L 8:40 AM [facility] Absolute 0.1 0.0 - 0.7 08/21/2018 [facility] Eosinophils 10e9/L 8:40 AM [facility] Absolute 0.0 0.0 - 0.2 08/21/2018 [facility] Basophils 10e9/L 8:40 AM [facility] Abs Immature 0.0 0 - 0.4 08/21/2018 [facility] Granulocytes 10e9/L 8:40 AM [facility] Absolute 0.0 08/21/2018 [place] Nucleated RBC 8:40 AM [facility] RBC Morphology Consistent 08/21/2018 [facility] with reported 8:40 AM [facility] Platelet Automated 08/21/2018 [place] Estimate count 8:40 AM [facility] confirmed. HOSPITAL Platelet morphology is normal. Specimen Anatomical Collection Method Collection Time Receive d Time (Source) Location / / Volume Laterality Blood specimen 08/21/2018 6:11 AM 019 6:12 (specimen) APPARATUS OPERATOR AM APPARATUS OPERATOR Cherrie Schaefer MD LAB - BLOOD ORDERABLES Performing Organization Address City/State/[facility] Code Phon e Number [facility] [address] [address] [facility] [address] [address], [facility] [phone] (ABNORMAL) Glucose by meter (08/21/2018 6:00 AM APPARATUS OPERATOR) P athologist Signature Glucose 146 (H) 70 - 99 08/21/2018 [facility] mg/dL 6:22 AM APPARATUS OPERATOR TEST, GLUCOSE Specimen Anatomical Collection Method Collection Time Receive d Time (Source) Location / / Volume Laterality 08/21/2018 6:00 AM 9 6:22 APPARATUS OPERATOR AM APPARATUS OPERATOR Cherrie Schaefer MD LAB - BEAKER POCT Performing Organization Address City/State/ZIP Code Phon e Number [facility] POINT OF CARE TEST, GLUCOSE POINT OF CARE TEST, GLUCOSE Urine Culture Aerobic Bacterial (08/21/2018 1:30 AM APPARATUS OPERATOR) Component Value Ref Test Analysis Performed At [facility] Range Method Time Signature Specimen Midstream Urine [facility] Special Specimen 08/21/2018 [facility] Requests received in 4:17 AM [facility] preservative [facility] Culture Micro No growth 08/22/2018 [facility] 4:39 AM [facility] Specimen (Source) Anatomical Collection Method Collection Time Re ceived Time Location / / Volume Laterality Examination of URINE SPECIMEN 08/21/2018 1:30 08/21/19 19 2:04 midstream urine OBTAINED BY CLEAN AM APPARATUS OPERATOR AM APPARATUS OPERATOR specimen CATCH PROCEDURE / (procedure) Unknown Cherrie Schaefer MD LAB - MICRO GENERAL ORDERABL ES Performing Organization Address City/State/ZIP Code Phon e Number [facility] [address] [place] [address] [place] (ABNORMAL) UA reflex to Microscopic (08/21/2018 1:30 AM APPARATUS OPERATOR) [facility] gist Method Time Signature Color Urine Straw 08/21/2018 [facility] 2:08 AM [facility] Appearance Urine Clear 08/21/2018 [facility] 2:08 AM [facility] Glucose Urine 30 (A) NEG^Negat 08/21/2018 [facility] jeromy mg/dL 2:08 AM [facility] Bilirubin Urine Negative NEG^Negat 08/21/2018 [facility] jeromy 2:08 AM [facility] Ketones Urine Negative NEG^Negat 08/21/2018 [facility] jeromy mg/dL 2:08 AM [facility] Specific [place] 1.005 1.003 - 08/21/2018 [facility] Urine 1.035 2:08 AM [facility] Blood Urine Negative NEG^Negat 08/21/2018 [facility] jeromy 2:08 AM [facility] pH Urine 5.0 5.0 - 7.0 08/21/2018 [facility] pH 2:08 AM [facility] Protein Albumin Negative NEG^Negat 08/21/2018 [facility] Urine jeromy mg/dL 2:08 AM [facility] Urobilinogen Normal 0.0 - 2.0 08/21/2018 [facility] mg/dL mg/dL 2:08 AM [facility] Nitrite Urine Negative NEG^Negat 08/21/2018 [place] jeromy 2:08 AM [facility] Leukocyte Negative NEG^Negat 08/21/2018 [place] Esterase Urine jeromy 2:08 AM [facility] Source Midstream 08/21/2018 [place] Urine 2:04 AM [facility] Specimen (Source) Anatomical Collection Method Collection Time Re ceived Time Location / / Volume Laterality Examination of 08/21/2018 1:30 08/21/2018 2:04 midstream urine AM APPARATUS OPERATOR AM APPARATUS OPERATOR specimen (procedure) Cherrie Schaefer MD LAB - URINE ORDERABLES Performing Organization Address City/State/ZIP Code Phon e Number [facility] [address] [place] [address] [facility] [address] [place] [address], [place] [phone] (ABNORMAL) Glucose by meter (08/21/2018 12:41 AM APPARATUS OPERATOR) P athologist Signature Glucose 195 (H) 70 - 99 08/21/2018 PO[facility] CARE mg/dL 12:53 AM APPARATUS OPERATOR TEST, GLUCOSE Specimen Anatomical Collection Method Collection Time Receive d Time (Source) Location / / Volume Laterality 08/21/2018 12:41 08/21/2018 AM APPARATUS OPERATOR 12:53 AM APPARATUS OPERATOR Cherrie Schaefer MD LAB - BEAKER POCT Performing Organization Address City/State/ZIP Code Phon e Number [facility] POINT OF CARE TEST, GLUCOSE POINT OF CARE TEST, GLUCOSE Troponin I (08/21/2018 12:40 AM APPARATUS OPERATOR) P athologist Signature Troponin I ES <0.015 0.000 - 08/21/2018 [place] 0.045 ug/L 1:24 AM [facility] Comment: The 99th percentile for upper reference range is 0.045 ug/L. ??Troponin values in the range of 0.045 - 0.120 ug/L may b e associated with risks of adverse clinical events. Specimen Anatomical Collection Method Collection Time Receive d Time (Source) Location / / Volume Laterality Blood specimen 08/21/2018 12:40 02/05/201 9 (specimen) AM APPARATUS OPERATOR 12:55 AM APPARATUS OPERATOR Cherrie Schaefer MD LAB - BLOOD ORDERABLES Performing Organization Address City/State/ZIP Code Phon e Number [facility] [address] [address] [phone] [facility] [address] [place] [address], U [phone] Chest XR, PA & LAT (08/20/2018 9:07 PM APPARATUS OPERATOR) Anatomical Region Laterality Modality Chest Digital Radiography Specimen (Source) Anatomical Location Collection Method / Collectio n Time Received Time / Laterality Volume Impressions 08/20/2018 9:21 PM APPARATUS OPERATOR IMPRESSION: No acute disease. ROBYN BRENNER MD Narrative 08/20/2018 9:21 PM APPARATUS OPERATOR CHEST TWO VIEWS 08/20/2018 9:07 PM HISTORY: Chest pain. COMPARISON: August 09, 2018 FINDINGS: There are no acute infiltrates . The cardiac silhouette is not enlarged. Pulmonary vasculature is u nremarkable. Procedure Note Robyn Brenner MD - 08/20/2018Fo rmatting of this note might be different from the original. CHEST TWO VIEWS 08/20/2018 9:07 PM HISTORY: Chest pain. COMPARISON: August 09, 2018 FINDINGS: There are no acute infiltrates . The cardiac silhouette is not enlarged. Pulmonary vasculature is u nremarkable. IMPRESSION: No acute disease. ROBYN BRENNER MD Aleks Burnett MD IMG DIAGNOSTIC IMAGING ORDER CHAI Abdomen US, limited (RUQ only) (08/20/2018 8:29 PM APPARATUS OPERATOR) Anatomical Region Laterality Modality Abdomen/Pelvis Ultrasound Specimen (Source) Anatomical Location Collection Method / Collectio n Time Received Time / Laterality Volume Impressions 08/20/2018 8:44 PM APPARATUS OPERATOR IMPRESSION: ??Negative abdominal ultrasound. ROBYN BRENNER MD Narrative 08/20/2018 8:44 PM APPARATUS OPERATOR ULTRASOUND ABDOMEN LIMITED ??08/20/2018 8:29 PM HISTORY: Right upper quadrant pain. ?? COMPARISON: None. FINDINGS: ??Liver is unremarkable in ech ogenicity without focal lesions. Gallbladder is normal without s tones or sludge. Extrahepatic bile duct is normal in diameter. Pancrea s is normal where visualized. Right kidney is normal in size. There is no hydronephrosis. Procedure Note Robyn Brenner MD - 08/20/2018Fo rmatting of this note might be different from the original. ULTRASOUND ABDOMEN LIMITED 08/20/2018 8:29 PM HISTORY: Right upper quadrant pain. COMPARISON: None. FINDINGS: Liver is unremarkable in echog enicity without focal lesions. Gallbladder is normal without s tones or sludge. Extrahepatic bile duct is normal in diameter. Pancrea s is normal where visualized. Right kidney is normal in size. There is no hydronephrosis. IMPRESSION: Negative abdominal ultrasoun d. ROBYN BRENNER MD Aleks Burnett MD IMG US ORDERABLES EKG 12-lead, tracing only (08/20/2018 5:20 PM APPARATUS OPERATOR) [facility] Method Time Signature Interpretation ECG Click View RADIOLOGY Image link RESULTS to view waveform and result Specimen (Source) Anatomical Collection Method Collection Time Re ceived Time Location / / Volume Laterality 08/20/2018 5:20 PM APPARATUS OPERATOR Aleks Burnett MD ECG ORDERABLES Performing Organization Address City/State/ZIP Code Phon e Number RADIOLOGY RESULTS TSH with free T4 reflex (08/20/2018 5:14 PM APPARATUS OPERATOR) athologist [facility] TSH 1.91 0.40 - 4.00 08/20/2018 [place] mU/L 8:31 PM [facility] Specimen Anatomical Collection Method Collection Time Receive d Time (Source) Location / / Volume Laterality 08/20/2018 5:14 PM 9 5:28 APPARATUS OPERATOR PM APPARATUS OPERATOR Aleks Burnett MD LAB - BLOOD ORDERABLES Performing Organization Address City/State/ZIP Code Phon e Number [facility] [address] [phone] [facility] [address] [address], [place] [phone] D dimer quantitative (08/20/2018 5:14 PM APPARATUS OPERATOR) athologist Signature D Dimer 0.3 0.0 - 0.50 08/20/2018 [place] ug/ml FEU 8:29 PM [facility] Comment: This D-dimer assay is intended for use i n conjunction with a clinical pretest probability assessment model to exclude pulmonary embolism (PE) and deep venous thrombosis (DVT) in outpatients s uspected of PE or DVT. The cut-off value is 0.5 ug/mL FEU. Specimen Anatomical Collection Method Collection Time Receive d Time (Source) Location / / Volume Laterality 08/20/2018 5:14 PM 9 5:28 APPARATUS OPERATOR PM APPARATUS OPERATOR Aleks Burnett MD LAB - BLOOD ORDERABLES Performing Organization Address City/[facility]/ZIP Code Phon e Number [facility] [address] [place] [address] [phone] [facility] [address] [place] [address], [place] [phone] Troponin I (08/20/2018 5:14 PM APPARATUS OPERATOR) athologist Signature Troponin I ES <0.015 0.000 - 08/20/2018 [place] 0.045 ug/L 5:57 PM [facility] Comment: The 99th percentile for upper reference range is 0.045 ug/L. ??Troponin values in the range of 0.045 - 0.120 ug/L may b e associated with risks of adverse clinical events. Specimen Anatomical Collection Method Collection Time Receive d Time (Source) Location / / Volume Laterality Blood specimen 08/20/2018 5:14 PM 019 5:28 (specimen) APPARATUS OPERATOR PM APPARATUS OPERATOR Aleks Burnett MD LAB - BLOOD ORDERABLES Performing Organization Address City/[facility]/ZIP Code Phon e Number [facility] [address] [place] [address] [phone] [facility] [address] [place] [address], [place] [phone] (ABNORMAL) Lipase (08/20/2018 5:14 PM APPARATUS OPERATOR) athologist Signature Lipase 709 (H) 73 - 393 08/20/2018 [place] U/L 5:55 PM [facility] Specimen Anatomical Collection Method Collection Time Receive d Time (Source) Location / / Volume Laterality Blood specimen 08/20/2018 5:14 PM 019 5:28 (specimen) APPARATUS OPERATOR PM APPARATUS OPERATOR Aleks Burnett MD LAB - BLOOD ORDERABLES Performing Organization Address City/State/ZIP Code Phon e Number [facility] [address] [phone] [facility] [address] [address], [place] [phone] (ABNORMAL) Comprehensive metabolic panel (08/20/2018 5:14 PM APPARATUS OPERATOR) Analysis Performed At [facility] logis Time Signature Sodium 134 133 - 144 08/20/2018 [place] mmol/L 5:46 PM [facility] Potassium 4.6 3.4 - 5.3 08/20/2018 [place] mmol/L 5:46 PM [facility] Chloride 103 94 - 109 08/20/2018 [place] mmol/L 5:46 PM [facility] Carbon Dioxide 22 20 - 32 08/20/2018 [place] mmol/L 5:52 PM [facility] Anion Gap 9 3 - 14 08/20/2018 [place] mmol/L 5:52 PM [facility] Glucose 278 (H) 70 - 99 08/20/2018 [place] mg/dL 5:52 PM [facility] Urea Nitrogen 22 7 - 30 08/20/2018 [place] mg/dL 5:52 PM [facility] Creatinine 0.49 (L) 0.52 - 08/20/2018 [place] 1.04 mg/dL 5:52 PM [facility] GFR Estimate >90 >60 08/20/2018 [place] mL/min/{1. 5:52 PM [facility] 73_m2} HOSPITAL Comment: Non GFR Calc Starting 07/03/2018, serum creatinine ba sed estimated GFR (eGFR) will be calculated using the Chronic Kidney Dise [facility] Epidemiology Collaboration (CKD-EPI) equation. GFR Estimate If >90 >60 mL/min/{1.73_m2} 08/20/2018 5: 52 PM [facility] Comment: GFR Calc Starting 07/03/2018, serum creatinine ba sed estimated GFR (eGFR) will be calculated using the Chronic Kidney Dise [facility] Epidemiology Collaboration (CKD-EPI) equation. Calcium 9.2 8.5 - 10.1 08/20/2018 5:52 PM [facility] mg/dL [facility] Bilirubin Total 0.5 0.2 - 1.3 mg/dL 08/20/2018 5:55 PM [facility] Albumin 3.4 3.4 - 5.0 g/dL 08/20/2018 5:55 PM [facility] Protein Total 7.4 6.8 - 8.8 g/dL 08/20/2018 5:55 PM [facility] Alkaline Phosphatase 66 40 - 150 U/L 08/20/2018 5:55 PM [facility] ALT 170 (H) 0 - 50 U/L 08/20/2018 5:55 PM [facility] AST 73 (H) 0 - 45 U/L 08/20/2018 5:55 PM [facility] Specimen Anatomical Collection Method Collection Time Receive d Time (Source) Location / / Volume Laterality Blood specimen 08/20/2018 5:14 PM 019 5:28 (specimen) APPARATUS OPERATOR PM APPARATUS OPERATOR Aleks Burnett MD LAB - BLOOD ORDERABLES Performing Organization Address City/State/ZIP Code Phon e Number [facility] [address] [phone] [facility] [address] [address], U [phone] (ABNORMAL) CBC with platelets differential (08/20/2018 5:14 PM [facility]) [facility] gist Method Time Signature WBC 9.4 4.0 - 08/20/2018 [facility] 11.0 5:35 PM [facility] 10e9/L [facility] RBC Count 5.55 (H) 3.8 - 5.2 08/20/2018 [facility] 10e12/L 5:35 PM [facility] Hemoglobin 15.4 11.7 - 08/20/2018 [facility] 15.7 g/dL 5:35 PM [facility] Hematocrit 44.6 35.0 - 08/20/2018 [facility] 47.0 % 5:35 PM [facility] MCV 80 78 - 100 08/20/2018 [facility] fl 5:35 PM [facility] MCH 27.7 26.5 - 08/20/2018 [facility] 33.0 pg 5:35 PM [facility] MCHC 34.5 31.5 - 08/20/2018 [facility] 36.5 g/dL 5:35 PM [facility] RDW 13.3 10.0 - 08/20/2018 [facility] 15.0 % 5:35 PM [facility] Platelet Count 240 150 - 450 08/20/2018 [facility] 10e9/L 5:35 PM [facility] Diff Method Automated 08/20/2018 [facility] Method 5:35 PM [facility] % Neutrophils 78.5 % 08/20/2018 [facility] 5:35 PM [facility] % Lymphocytes 19.8 % 08/20/2018 [facility] 5:35 PM [facility] % Monocytes 1.0 % 08/20/2018 [facility] 5:35 PM [facility] % Eosinophils 0.1 % 08/20/2018 [facility] 5:35 PM [facility] % Basophils 0.1 % 08/20/2018 [facility] 5:35 PM [facility] % Immature 0.5 % 08/20/2018 [facility] Granulocytes 5:35 PM [facility] Nucleated RBCs 0 0 /100 08/20/2018 [facility] 5:35 PM [facility] Absolute 7.4 1.6 - 8.3 08/20/2018 [facility] Neutrophil 10e9/L 5:35 PM [facility] Absolute 1.9 0.8 - 5.3 08/20/2018 [facility] Lymphocytes 10e9/L 5:35 PM [facility] Absolute 0.1 0.0 - 1.3 08/20/2018 [facility] Monocytes 10e9/L 5:35 PM [facility] Absolute 0.0 0.0 - 0.7 08/20/2018 [facility] Eosinophils 10e9/L 5:35 PM [facility] Absolute 0.0 0.0 - 0.2 08/20/2018 [facility] Basophils 10e9/L 5:35 PM [facility] Abs Immature 0.1 0 - 0.4 08/20/2018 [facility] Granulocytes 10e9/L 5:35 PM [facility] Absolute 0.0 08/20/2018 [facility] Nucleated RBC 5:35 PM [facility] Specimen Anatomical Collection Method Collection Time Receive d Time (Source) Location / / Volume Laterality Blood specimen 08/20/2018 5:14 PM 019 5:28 (specimen) APPARATUS OPERATOR PM APPARATUS OPERATOR Aleks Burnett MD LAB - BLOOD ORDERABLES Performing Organization Address City/State/ZIP Code Phon e Number [facility] [address] [place] [address] [phone] [facility] [address] [place] [address], U [phone] documented in this encounter Visit Diagnoses Diagnosis Generalized weakness Other malaise and fatigue Chest pain, unspecified type Elevated lipase Other nonspecific abnormal serum enzyme levels Weakness Other malaise and fatigue documented in this encounter Administered Medications Inactive Administered Medications - up to 3 most recent administrations Medication Order MAR Action Action Date Dose Rate Site acetaminophen (TYLENOL) Suppository 650 mg 650 mg, Rectal, EVERY 4 HOURS PRN, mild pain, Starting on Mon08/20/18 at 2243, Alternate ibuprofen (if ordered) with acetaminophen. M aximum acetaminophen dose from all sources = 75 mg/kg/day not to exceed 4 grams/ day. acetaminophen (TYLENOL) tablet 650 mg 650 mg, Oral, EVERY 4 HOURS PRN, mild pain, Starting o n Mon08/20/18 at 2243, Alternate ibuprofen (if ordered) with acetaminophen. M aximum acetaminophen dose from all sources = 75 mg/kg/day not to exceed 4 grams/ day. Carboxymethylcellulose Sod PF (REFRESH PLUS) Given 11/2018 2:41 PM APPARATUS OPERATOR 1 drop 0.5 % ophthalmic solution 1 drop 1 drop, Both Eyes, 3 TIMES DAILY PRN, dry eyes, Starting on Mon08/21/18 at 1344 dextrose 50 % injection 25-50 mL 25-50 mL, Intravenous, EVERY 15 MIN PRN, low blood sug ar, Administer over 1-5 Minutes, Starting on Mon08/20/18 at 2356, Use if have I V access, BG less than 70 mg/dL and meet dose criteria below: Dose if conscious and alert (or disorientated) and NPO = 25 mL Dose if unconscious / no t alert = 50 mL Vesicant. For ordered doses up to 25 g, give IV Push undiluted. Give each 5g over 1 minute. glucagon injection 1 mg 1 mg, Subcutaneous, EVERY 15 MIN PRN, low blood sugar, May repeat x 1 only, Starting on Mon08/20/18 at 2356, May give SQ or IM. ONLY use glucagon IF patient has NO IV access AND is UNABLE to swallow AN D blood glucose is LESS than or EQUAL to 50 mg/dL. If ordered IV, give IV Push over 1 minute. Juan nstitute with 1mL sterile water. glucose gel 15-30 g 15-30 g, Oral, EVERY 15 MIN PRN, low blo od sugar, Starting on Mon08/20/18 at 2356, Give 15 g for BG 51 to 69 mg/dL IF patie nt is conscious and able to swallow. Give 30 g for BG less than or equal to 50 mg/dL IF patient is conscious and able to swallow. Do NOT give glucose gel via enteral tube. IF patient has enteral tube: give apple juice 120 mL (4 oz or 15 g of CHO) via ente ral tube for BG 51 to 69 mg/dL. Give apple juice 240 mL (8 oz or 30 g of CHO) via enteral tube for BG less than or equal to 50 mg/dL. ~Oral gel is preferable for conscious and able to swallow patient. ~IF gel unavailable or patient refuses may provide apple juice 120 mL (4 oz or 15 g of CHO). Document juice on I and O fl owsheet. insulin aspart (NovoLOG) inj (RAPID ACTI NG) 1-7 Units, Subcutaneous, 3 TIMES DAILY B EFORE MEALS, First dose on Mon08/21/18 at 0730, Correction Scale - MEDIUM INSULIN RESISTANCE DOSING Do Not give Correction Insulin if Pre-Meal BG less than 140. Fo r Pre-Meal BG 140 - 189 give 1 unit. For Pre-Meal BG 190 - 239 give 2 units. For Pre-Meal BG 24 0 - 289 give 3 units. For Pre-Meal BG 290 - 339 give 4 units. For Pre-Meal BG 34 0- 399 give 5 units. For Pre-Meal BG 400-449 give 6 units For Pre -Meal BG greater than or equal to 450 give 7 units. To be given with prandial insul in, and based on pre-meal blood glucose. Notify provider if glucose greater than or equal to 350 mg/dL after administration of correction dose. If given at mealtime , administer within 30 minutes of start of meal insulin aspart (NovoLOG) inj (RAPID ACTI NG) 1-5 Units, Subcutaneous, AT BEDTIME, First dose on Mon08/20/18 at 2357, MEDIUM INSULIN RESISTANCE DOSING Do Not give Be dtime Correction Insulin if BG less than 200. For BG 200 - 249 give 1 units. For BG 250 - 299 give 2 units. For BG 300 - 349 give 3 units. For BG 350 -399 give 4 units. For BG gre ater than or equal to 400 give 5 units. Notify provider if glucose greater than or equal to 350 mg/dL after administration of correction dose. If given at mealtim e, administer within 30 minutes of start of meal iopamidol (ISOVUE-370) solution 92 mL Given 08/21/2018 8:36 AM APPARATUS OPERATOR 92 mLs 92 mL, Intravenous, ONCE, On Mon08/21/18 at 0829, For 1 dose melatonin tablet 1 mg 1 mg, Oral, AT BEDTIME PRN, sleep, Starting on 08/20 at 2243, Do not give unless at least 6 hours of uninterrupted sleep is expe cted. naloxone (NARCAN) injection 0.1-0.4 mg 0.1-0.4 mg, Intravenous, EVERY 2 MIN PRN , opioid reversal, Starting on Mon08/20/18 at 2243, For respiratory rate LESS than or EQUAL to 8. Partial reversal dose: 0.1 mg titrated q 2 minutes for Analgesia Si de Effects Monitoring Sedation Level of 3 (frequently drowsy, arousable, drifts to sleep during conversation).Full reversal dose: 0.4 mg bolus for Analgesia Side Effects Monitori ng Sedation Level of 4 (somnolent, minimal or no response to st imulation). For ordered IV doses 0.1-2mg give IVP. Give each 0.4mg over 15 second s in emergency situations. For non-emergent situations further dilute in 9mL of NS to facilitate t itration of response. ondansetron (ZOFRAN) injection 4 mg 4 mg, Intravenous, EVERY 6 HOURS PRN, nausea, vomiting , Administer over 2-5 Minutes, Starting on Mon08/20/18 at 2243, This is Step 1 of nausea and vomiting management. If nausea not resolved in 15 minutes, go t o Step 2 prochlorperazine (COMPAZINE). Irritant. For ordered IV do ses 0.1-4 mg, give IV Push undiluted over 2-5 minutes. ondansetron (ZOFRAN-ODT) ODT tab 4 mg 4 mg, Oral, EVERY 6 HOURS PRN, nausea, v omiting, Starting on Mon08/20/18 at 2243, This is Step 1 of nausea and [...] swallow with saliva; liquid not required . polyethylene glycol (MIRALAX/GLYCOLAX) P acket 17 g 17 g, Oral, DAILY PRN, constipation, Sta rting on Mon08/20/18 at 2243, Give in 8oz of water, juice, or soda. Hold for loose st ools. This is the second step of a three step constipation treatment. 1 Packet = 17 grams. Mixed prescribed dose in 8 ounces of water. Follow with 8 oz. of water. prochlorperazine (COMPAZINE) injection 1 0 mg 10 mg, Intravenous, EVERY 6 HOURS PRN, nausea, vomitin g, Administer over 1-2 Minutes, Starting on Mon08/20/18 at 2243, This is Step 2 of nausea and [...] HOURS PRN, nausea, vomiting, S tarting on Mon08/20/18 at 2243, This is Step 2 of nausea and vomit ing management. Give if nausea not resolved 15 minutes after giving ondansetron (ZOF RAN). If nausea not resolved in 15 minutes, go to Step 3 metoclopramide (REGLAN), if ordered. prochlorperazine (COMPAZINE) tablet 10 m g 10 mg, Oral, EVERY 6 HOURS PRN, vomiting , Starting on Mon08/20/18 at 2243, This is Step 2 of nausea and vomiting management . Give if nausea not resolved 15 minutes after giving ondansetron (ZOFRAN). If na usea not resolved in 15 minutes, go to Step 3 metoclopramide (REGLAN), if ordered. Saline Given 08/21/2018 8:36 AM APPARATUS OPERATOR 68 mLs Intravenous, 68 mL, ONCE, On Mon08/21/18 at 0829, For 1 dose senna-docusate (SENOKOT-S/PERICOLACE) 8. 6-50 MG per tablet 1 tablet 1 tablet, Oral, 2 TIMES DAILY PRN, const ipation, Starting on Mon08/20/18 at 2243, If no bowel movement in 24 hours, increase to 2 tablets P O. Hold for loose stools. This is the first step of a three step constipation tr eatment. senna-docusate (SENOKOT-S/PERICOLACE) 8. 6-50 MG per tablet 2 tablet 2 tablet, Oral, 2 TIMES DAILY PRN, const ipation, Starting on Mon08/20/18 at 2243, Hold for loose stools. This is the first step of a thr ee step constipation treatment. sincalide (KINEVAC) injection 1.7 mcg Given 08/22/2018 2:16 PM APPARATUS OPERATOR 1.7 mcg 1.7 mcg (rounded from 1.67 mcg = 0.02 mcg/kg ? 83.5 kg), Intravenous, ONCE, On Mon08/22/18 at 1351, For 1 dose sodium chloride 0.9% infusion New Bag 08/22/2018 2:21 AM APPARATUS OPERATOR 100 mL/hr at 100 mL/hr, Intravenous, CONTINUOUS, Starting on Mon08/20/18 at 2244, Until Mon08/22/18 at 1005 Rate/Dose Verify 08/22/2018 12:00 AM APPARATUS OPERATOR 100 mL/hr New Bag 08/21/2018 5:47 PM APPARATUS OPERATOR 100 mL/hr technetium Tc 99m mebrofenin Given 08/22/2018 1:17 PM APPARATUS OPERATOR 6.4 mi llicuries (CHOLETEC) radioisotope injection 6 millicurie 6 millicurie, Intravenous, ONCE, On Mon08/22/18 at 1317, For 1 dose documented in this encounter Active and Recently Administered Medications Times are shown in APPARATUS OPERATOR. Scheduled Medication Order 08/20/2018 08/21/2018 08/22/2018 fluticasone-vilanterol (BREO ELLIPTA) 200-25 MCG/INH inhaler 1 puff 0846 (Not Given - Provider: Maranda Chavarria RN - Reason: Patient/family refused) 0755 (Not Given - Provider: Alyx Alegre RN - Reason: Patient/family refused - Comment: Pt does not want to take. States she does not take every day and does not want to pay the cost.) 1 puff, Inhalation, DAILY, First dose on Mon08/21/18 at 0800, *Do not use more frequently than once daily.* Rinse mouth after use. insulin aspart (NovoLOG) inj (RAPID ACTING) 0939 (Not Given - Provider: Maranda Chavarria RN - Reason: Order parameters not met)1412 (Not Given - Provider: Maranda Chavarria RN - Reason: Order parameters not met - Comment: Pt did not eat lunch at the time med was scheduled) 0745 (Not Given - Provider: Alyx Alegre RN - Reason: Order parameters not met)1442 (Not Given - Provider: Alyx Alegre RN - Reason: Other - Comment: Pt NPO prior to pr 1-7 Units, Subcutaneous, 3 TIMES DAILY B EFORE MEALS, First dose on Mon08/21/18 at 0730, Correction Scale - MEDIUM INSULIN RESISTANCE DOSING Do Not give Correction Insulin if Pre-Meal BG less than 140. Fo 16 51 (Not Given - Provider: Hal Carroll RN - Reason: Order parameters not met) ocedure, still at HIDA scan. Dose close to evening dose now.)1700 (Canceled Entry - Provider: Orders Generic Provider - Comment: Automatically canceled at discontinue of medication order) r Pre-Meal BG 140 - 189 give 1 unit. For Pre-Meal BG 190 - 239 give 2 units. For Pre-Meal BG 240 - 289 give 3 units. For Pre-Meal BG 290 - 339 give 4 units. For Pre-Meal BG 340- 399 give 5 units. For Pr e-Meal BG 400-449 give 6 units For Pre-M eal BG greater than or equal to 450 give 7 units. To be given with prandial insulin, and based on pre-meal blood glucose. Notify provider if glucose greater than or equal to 350 mg/dL after administrati on of correction dose. If given at mealtime, administer within 30 minutes of start of meal insulin aspart (NovoLOG) inj (RAPID ACTING) 0136 (Not Given - Provider: Karin Hogan RN - Reason: Contraindicated - Comment: [phone] (Not Given - Provider: Hal Carroll RN - Reason: Order parameters not met) 1-5 Units, Subcutaneous, AT BEDTIME, Fir st dose on Mon08/20/18 at 2357, MEDIUM INSULIN RESISTANCE DOSING Do Not give Bedtime Correction Insulin if BG less than 200. For BG 200 - 249 give 1 units. For BG 250 - 299 give 2 units. For BG 300 - 349 give 3 units. For BG 350 -399 give 4 units. For BG greater than or equal to 400 give 5 units. Notify provider if glucose greater than or equal to 350 mg/dL after administration of correction dose. If g iven at mealtime, administer within 30 minutes of start of meal iopamidol (ISOVUE-370) solution 92 mL (COMPLETED) 08 (Given - Provider: Joanne Powers) 92 mL, Intravenous, ONCE, Mon08/21/18 at 0829, For 1 dose Saline (COMPLETED) 08 (Given - Provider: Joanne Powers) Intravenous, 68 mL, ONCE, Mon08/21/18 at 0829, For 1 dose sincalide (KINEVAC) injection 1.7 mcg (COMPLETED) 1416 (Given - Provider: Wayne Lam) 1.7 mcg (rounded from 1.67 mcg = 0.02 mc g/kg ? 83.5 kg), Intravenous, ONCE, Mon08/22/18 at 1351, For 1 dose technetium Tc 99m mebrofenin (CHOLETEC) radioisotope injection 6 millicurie (COMPLETED) 1317 (Given - Provid er: Wayne Lam) 6 millicurie, Intravenous, ONCE, Mon08/22/18 at 1317, For 1 dose Continuous Medication Order 08/20/2018 08/21/2018 08/22/2018 sodium chloride 0.9% infusion (CANCELED) 2300 (New Bag - Provider: Hal Carroll RN) 0135 (Rate/Dose Verify - Provider: Sudhir Hogan, MIKE)0845 (New Bag - Provider: Maranda Chavarria, MIKE)1747 (New Bag - Provider: Hal Carroll RN) 0000 (Rate/Dose Verify - Provider: Ceci Plummer, MIKE)0221 (New Bag - Provider: Ceci Plummer RN) at 100 mL/hr, Intravenous, CONTINUOUS, S tarting 08/20/18 at 2244, Until Mon08/22/18 at 1005 PRN Medication Order 08/20/2018 08/21/2018 08/22/2018 acetaminophen (TYLENOL) Suppository 650 mg 650 mg, Rectal, EVERY 4 HOURS PRN, mild pain, Starting Mon08/20/18 at 2243, Alternate ibuprofen (if ordered) with acetaminophen. Maximum acetaminophen dose from all sources = 75 mg/kg/day not to exceed 4 grams/day. acetaminophen (TYLENOL) tablet 650 mg 650 mg, Oral, EVERY 4 HOURS PRN, mild pa in, Starting 08/20/18 at 2243, Alternate ibuprofen (if ordered) with acetaminophen. Maximum acetaminophen dose from all sources = 75 mg/kg/day not to exceed 4 grams/day. albuterol (PROVENTIL) neb solution 2.5 mg 2.5 mg, Nebulization, EVERY 6 HOURS PRN, shortness of breath / dyspnea, wheezing, Starting Mon08/20/18 at 2243 Carboxymethylcellulose Sod PF (REFRESH PLUS) 0.5 % ophthalmi c solution 1 drop 1441 (Given - Provider: Maranda Chavarria, MIKE) 1 drop, Both Eyes, 3 TIMES DAILY PRN, dry eyes, Starting 08/21 at 1344 dextrose 50 % injection 25-50 mL(Linked Group 1) 25-50 mL, Intravenous, EVERY 15 MIN PRN, low blood sugar, Administer over 1-5 Minutes, Starting Mon08/20/18 at 2356, Use if have IV access, BG less than 70 mg/dL and meet dose criteria below: Dose if con scious and alert (or disorientated) and NPO = 25 mL Dose if unconscious / not alert = 50 mL Vesicant. For ordered doses up to 25 g, give IV Push undiluted. Give each 5g over 1 minute. glucagon injection 1 mg(Linked Group 1) 1 mg, Subcutaneous, EVERY 15 MIN PRN, lo w blood sugar, May repeat x 1 only, Starting 08/20/18 at 2356, May give SQ or IM. ONLY use glucagon IF patient has NO IV access AND is UNABLE to swallow AND blo od glucose is LESS than or EQUAL to 50 m g/dL. If ordered IV, give IV Push over 1 minute. Reconstitute with 1mL sterile water. glucose gel 15-30 g(Linked Group 1) 15-30 g, Oral, EVERY 15 MIN PRN, low blo od sugar, Starting 08/20/18 at 2356, Give 15 g for BG 51 to 69 mg/dL IF patient is conscious and able to swallow. Give 30 g for BG less than or equal to 50 mg/d L IF patient is conscious and able to sw allow. Do NOT give glucose gel via enteral tube. IF patient has enteral tube: give apple juice 120 mL (4 oz or 15 g of CHO) via enteral tube for BG 51 to 69 mg/dL . Give apple juice 240 mL (8 oz or 30 g of CHO) via enteral tube for BG less than or equal to 50 mg/dL. ~Oral gel is preferable for conscious and able to swallow patient. ~IF gel unavailable or patient refuses may provide apple juice 120 mL ( 4 oz or 15 g of CHO). Document juice on I and O flowsheet. ipratropium - albuterol 0.5 mg/2.5 mg/3 mL (DUONEB) neb solution 3 mL 3 mL (1 vial), Nebulization, EVERY 6 AZAR RS PRN, shortness of breath / dyspnea, wheezing, Starting Mon08/20/18 at 2243 melatonin tablet 1 mg 1 mg, Oral, AT BEDTIME PRN, sleep, Start ing Mon08/20/18 at 2243, Do not give unless at least 6 hours of uninterrupted sleep is expected. naloxone (NARCAN) injection 0.1-0.4 mg 0.1-0.4 mg, Intravenous, EVERY 2 MIN PRN , opioid reversal, Starting 08/20/18 at 2243, For respiratory rate LESS than or EQUAL to 8. Partial reversal dose: 0.1 mg titrated q 2 minutes for Analgesia Laurent e Effects Monitoring Sedation Level of 3 (frequently drowsy, arousable, drifts to sleep during conversation).Full reversal dose: 0.4 mg bolus for Analgesia Side Effects Monitoring Sedation Level of 4 (s omnolent, minimal or no response to stim ulation). For ordered IV doses 0.1-2mg give IVP. Give each 0.4mg over 15 seconds in emergency situations. For non- emergent situations further dilute in 9mL of NS to facilitate titration of response. ondansetron (ZOFRAN) injection 4 mg(Linked Group 2) 4 mg, Intravenous, EVERY 6 HOURS PRN, na usea, vomiting, Administer over 2-5 Minutes, Starting 08/20/18 at 2243, This is Step 1 of nausea and vomiting management. If nausea not resolved in 15 minutes, go to Step 2 prochlorperazine (COMPAZINE ). Irritant. For ordered IV doses 0.1-4 mg, give IV Push undiluted over 2-5 minutes. ondansetron (ZOFRAN-ODT) ODT tab 4 mg(Linked Group 2) 4 mg, Oral, EVERY 6 HOURS PRN, nausea, v omiting, Starting 08/20/18 at 2243, This is Step 1 of nausea and vomiting management. If nausea not resolved in 15 minutes, go to Step 2 prochlorperazine (NAREN ZINE). Do not push through foil backing. Peel back foil and gently remove. Place on tongue immediately. Administration with liquid unnecessary With dry hands, peel back foil backing and gently remove ta blet; do not push oral disintegrating ta blet through foil backing; administer immediately on tongue and oral disintegrating tablet dissolves in seconds; then swallow with saliva; liquid not required. polyethylene glycol (MIRALAX/GLYCOLAX) Packet 17 g 17 g, Oral, DAILY PRN, constipation, Sta rting 08/20/18 at 2243, Give in 8oz of water, juice, or soda. Hold for loose stools. This is the second step of a three step constipation treatment. 1 Packet = 17 grams. Mixed prescribed dose in 8 oun shantanu of water. Follow with 8 oz. of water. prochlorperazine (COMPAZINE) injection 10 mg(Linked Group 3) 10 mg, Intravenous, EVERY 6 HOURS PRN, n ausea, vomiting, Administer over 1-2 Minutes, Starting 08/20/18 at 2243, This is Step 2 of nausea and vomiting management. Give if nausea not resolved 15 minute s after giving ondansetron (ZOFRAN). If nausea not resolved in 15 minutes, go to Step 3 metoclopramide (REGLAN), if ordered. For ordered IV doses 0.1-10 mg, give IV Push undiluted. Each 5mg over 1 minute. prochlorperazine (COMPAZINE) Suppository 25 mg(Linked Group 3) 25 mg, Rectal, EVERY 12 HOURS PRN, nause a, vomiting, Starting 08/20/18 at 2243, This is Step 2 of nausea and vomiting management. Give if nausea not resolved 15 minutes after giving ondansetron (ZOFRA N). If nausea not resolved in 15 minutes , go to Step 3 metoclopramide (REGLAN), if ordered. prochlorperazine (COMPAZINE) tablet 10 mg(Linked Group 3) 10 mg, Oral, EVERY 6 HOURS PRN, vomiting , Starting 08/20/18 at 2243, This is Step 2 of nausea and vomiting management. Give if nausea not resolved 15 minutes after giving ondansetron (ZOFRAN). If naus ea not resolved in 15 minutes, go to Samy p 3 metoclopramide (REGLAN), if ordered. senna-docusate (SENOKOT-S/PERICOLACE) 8. 6-50 MG per tablet 1 tablet(Linked Group 4) 1 tablet, Oral, 2 TIMES DAILY PRN, const ipation, Starting 08/20/18 at 2243, If no bowel movement in 24 hours, increase to 2 tablets PO. Hold for loose stools. This is the first step of a three step constipation treatment. senna-docusate (SENOKOT-S/PERICOLACE) 8. 6-50 MG per tablet 2 tablet(Linked Group 4) 2 tablet, Oral, 2 TIMES DAILY PRN, const ipation, Starting 08/20/18 at 2243, Hold for loose stools. This is the first step of a three step constipation treatment. Linked Groups Order Group 1: glucose gel 15-30 gJump to med 15-30 g, Oral, EVERY 15 MIN PRN, low blo od sugar, Starting 08/20/18 at 2356
Give 15 g for BG 51 to 69 mg/dL IF patient is conscious and able to swallow. Give 30 g for BG less than or equal to 50 mg/dL IF patient is conscious and ab le to swallow. Do NOT give glucose gel via enteral tube. IF patient has enteral tube: give apple juice 120 mL (4 oz or 15 g of CHO) via enteral tube for BG 51 to 69 mg/dL. Give apple juice 240 mL (8 oz or 30 g of CHO) via enteral tube for BG less than or equal to 50 mg/dL. ~Oral gel is preferable for consc ious and able to swallow patient. ~IF gel unavailable or patient refuses may provide apple juice 120 mL (4 oz or 15 g of CHO). Document juice on I and O flowsheet.
Or dextrose 50 % injection 25-50 mLJump to med 25-50 mL, Intravenous, EVERY 15 MIN PRN, low blood sugar, Administer over 1-5 Minutes, Starting 08/20/18 at 2356
Use if have IV access, BG less than 70 mg/dL and meet dose criteria below:&amp ;nbsp;Dose if conscious and alert (or di sorientated) and NPO = 25 mL Dose if unconscious / not alert = 50 mL Vesicant. For ordered doses up to 25 g, give IV Push undiluted. Give each 5g over 1 minute.
Or glucagon injection 1 mgJump to med 1 mg, Subcutaneous, EVERY 15 MIN PRN, lo w blood sugar, May repeat x 1 only, Starting 08/20/18 at 2356
May give SQ or IM. ONLY use glucagon IF patient has NO IV access AND is UNABLE to swallow AND blood glucose is LESS than or EQUAL to 50 mg/dL. If ordered IV, give IV Push over 1 minute. Reconstitute with 1mL sterile water.
Group 2: ondansetron (ZOFRAN-ODT) ODT tab 4 mgJump to med 4 mg, Oral, EVERY 6 HOURS PRN, nausea, v omiting, Starting 08/20/18 at 2243
This is Step 1 of nausea and vomiting management. If nausea not resolved in 15 minutes, go to Samy p 2 prochlorperazine (COMPAZINE). Do not push through foil backing. Peel back foil and gently remove. Place on tongue immediately. Administration with liquid unnecessary With dry hands, peel ba ck foil backing and gently remove tablet ; do not push oral disintegrating tablet through foil backing; administer immediately on tongue and oral disintegrating tablet dissolves in seconds; then swallow with saliva; liquid not required.
Or ondansetron (ZOFRAN) injection 4 mgJump to med 4 mg, Intravenous, EVERY 6 HOURS PRN, na usea, vomiting, Administer over 2-5 Minutes, Starting 08/20/18 at 2243
This is Step 1 of nausea and vomiting management. If nausea n ot resolved in 15 minutes, go to Step 2 prochlorperazine (COMPAZINE). Irritant. For ordered IV doses 0.1-4 mg, give IV Push undiluted over 2-5 minutes.
Group 3: prochlorperazine (COMPAZINE) injection 10 mgJump to med 10 mg, Intravenous, EVERY 6 HOURS PRN, n ausea, vomiting, Administer over 1-2 Minutes, Starting 08/20/18 at 2243
This is Step 2 of nausea and vomiting management. Give if nausea not resolved 1 5 minutes after giving ondansetron (ZOFR AN). If nausea not resolved in 15 minutes, go to Step 3 metoclopramide (REGLAN), if ordered. For ordered IV doses 0.1-10 mg, give IV Push undiluted. Each 5mg over 1 minute.
Or prochlorperazine (COMPAZINE) tablet 10 mgJump to med 10 mg, Oral, EVERY 6 HOURS PRN, vomiting , Starting 08/20/18 at 2243
This is Step 2 of nausea and vomiting management. Give if nausea not resolved 15 minutes after giving ondansetron (ZOFRAN). If nausea not resolved in 15 minut es, go to Step 3 metoclopramide (REGLAN), if ordered.
Or prochlorperazine (COMPAZINE) Suppository 25 mgJump to med 25 mg, Rectal, EVERY 12 HOURS PRN, nause a, vomiting, Starting 08/20/18 at 2243
This is Step 2 of nausea and vomiting management. Give if nausea not resolved 15 minutes after giving ondansetro n (ZOFRAN). If nausea not resolved in 15 minutes, go to Step 3 metoclopramide (REGLAN), if ordered.
Group 4: senna-docusate (SENOKOT-S/PERICOLACE) 8.6-50 MG per tablet 1 tabletJump to med 1 tablet, Oral, 2 TIMES DAILY PRN, const ipation, Starting 08/20/18 at 2243
If no bowel movement in 24 hours, increase to 2 tablets PO. Hold for loose stools. This is the first step of a three step constipation treatment.
Or senna-docusate (SENOKOT-S/PERICOLACE) 8.6-50 MG per tablet 2 tabletJump to med 2 tablet, Oral, 2 TIMES DAILY PRN, const ipation, Starting 08/20/18 at 2243
Hold for loose stools. This is the first step of a three step constipation treatment.
documented in this encounter Care Teams Supervisor Brake Repair Relationship Specialty Start Date End Date Krystin Christie PCP - General Nurse Practitioner 12/15/17 09/08/19 SAURABH Engel CELL ATTENDANT HELPER [address] [facility] [place] [id number] Comfort Nichols MD PCP - Assigned PCP 04/08/18 08/25/[address] [facility] [place] [id number] Tali Vilchis MD INTERNAL MEDICINE - 04/10/15 ENDOCRINOLOGY, DIABETES [address] [facility] [address] [place], [place] [address] Anat Fuller MD Internal Medicine 04/10/1509/16 MD Renee [phone] [facility] [address] [place], [place] [id number] Janny Hutton Physician Fisheries Technical Officer Physician Fisheries Technical Officer 06/30/15 09/17/19 CARLA Mckeon [address] [facility] [address] [place], [place] [id number] Florecita Bryan, RN Lead Chef Manager 08/17/18 10/24/18 Comfort Nichols MD Assigned PCP 04/08/18 08/25/[address] [facility] [place] [id number] documented as of this encounter
--- OUTSIDE RECORDS SUMMARY | 2022-05-09 11:03 | XMS_ITS | Encounter Summary ---
:1955 Author Organization [place] [facility] [place] [address] Care Team Providers Name Role Phone Tali Vilchis MD Unavailable Anat Fuller MD Unavailable [phone] Janny Hutton PA-C Unavailable [phone] Krystin Christie APRN HANDLE MAKER Primary Care Provider [phone] Comfort Nichols MD Unavailable Florecita Bryan RN Unavailable Comfort Nichols MD Unavailable Reason for Visit Reason Onset Date Comments Nurse Advice Line 08/20/2018 Encounter Details Date Type Department Care Team Description 08/20/2018 Telephone [facility] Krystin Christie se Advice Line Lola Engel APRN HANDLE MAKER [address] [facility] [address] [place] [address] [address] [place] [address] [place] [address] [phone] Social History Tobacco Use Types Packs/Day Years Used Date Smoking Tobacco: Never Smokeless Tobacco: Never Alcohol Use Standard Drinks/Week Comments No 0 (1 standard drink = 0.6 oz pure alcoho l) Sex Assigned at Date Recorded Female 08/17/2018 10:39 PM MANAGER POWER documented as of this encounter Miscellaneous Notes Telephone Encounter - Margie Badillo RN - 08/20/2018 1:59 PM CST Patient states that symptoms started 7 days ago-she was seen on 08/17 and states that she has been getting worse. Patient c/o severe weakness, abdominal pain and SOB. Patient states that she was up to have breakfast, then unable to stay awake and is having a hard time breathing. Directed patient to the ER-she is with someone who will drive her right now as she is not safe to be on her own. Patient in agreement with the plan. Margie Badillo RN Message handled by Nurse Triage. GER POWER Telephone Encounter - Krystin Christie APRN CNP - 08/20/2018 12:39 PM MANAGER POWER Please assess. Pt may need to go to the ED. GER POWER Telephone Encounter - Kindra Santana - 08/20/2018 11:15 AM CST Patient has very little energy, tight breathing, mild pain on the right side of her abdomen, and would like to speak with a nurse. Seen on Monday, symptoms have intensified since then. Please call back at [phone] Kindra Santana FWF - TC/FD 08/20/2018 11:16 AM GER POWER documented in this encounter Plan of Treatment Upcoming Encounters Date Type Specialty Care Team Description 05/19/2022 Office Visit ENT Dima Hidalgo M D [address] [place], [place] [address] (Sarah pino) 08/02/2022 Office Visit Neurology Yair Campos MD [address] [place] [address] (Sarah pino) documented as of this encounter Visit Diagnoses Not on filedocumented in this encounter Care Teams Control Supervisor Relationship Specialty Start Date End Date Krystin Christie PCP - General Nurse Practitioner 12/15/17 09/08/19 SAURABH Engel HANDLE MAKER [address] [facility] [place] [address] Comfort Nichols MD PCP - Assigned PCP 04/08/18 08/25/18 [address] [facility] [place] [id number] Tali Vilchis MD INTERNAL MEDICINE - 04/10/15 ENDOCRINOLOGY, DIABETES 420 [facility] & METABOLISM [address] [place], [place] [address] Anat Fuller MD Internal Medicine 04/10/1509/16 MD Renee [address] [facility] [address] [place], [place] [id number] Janny Hutton Physician Scroll Machine Operator Physician Scroll Machine Operator 06/30/15 09/17/19 CARLA Mckeon 420 [facility] 8[address] [place] [address] Florecita Bryan, RN Lead Ice House Supervisor 08/17/18 10/24/18 Comfort Nichols MD Assigned PCP 04/08/18 08/25/18 [address] [facility] [place] [id number] documented as of this encounter
--- OUTSIDE RECORDS SUMMARY | 2022-05-09 11:03 | XMS_ITS | Encounter Summary ---
:1955 Author Organization [place] Address [facility] [place] [address] Care Team Providers Name Role Phone Tali Vilchis MD Unavailable Anat Fuller MD Unavailable [phone] Janny Hutton PA-C Unavailable [phone] Krystin Christie APRN TOE LASTER Primary Care Provider [phone] Florecita Bryan RN Unavailable Krystin Christie APRN TOE LASTER Unavailable [phone] Krystin Christie APRN TOE LASTER Unavailable [phone] Encounter Details Date Type Department Care Team Description 09/09/2018 Travel Social History Tobacco Use Types Packs/Day Years Used Date Smoking Tobacco: Never Smokeless Tobacco: Never Alcohol Use Standard Drinks/Week Comments No 0 (1 standard drink = 0.6 oz pure alcoho l) Sex Assigned at Date Recorded Female 08/17/2018 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 documented as of this encounter Plan of Treatment Upcoming Encounters Date Type Specialty Care Team Description 05/19/2022 Office Visit ENT Dima Hidalgo M D [address] [place] [address] (Wo rk) 08/02/2022 Office Visit Neurology Yair Campos MD [address] [place], [place] [address] [place] [address] (Wo rk) documented as of this encounter Visit Diagnoses Not on filedocumented in this encounter Additional Health Concerns Assessment Noted Time PHQ-9 Depression Total Score: 4 08/24/2018 11:10 AM CS T documented as of this encounter Care Teams Medical Engineer Relationship Specialty Start Date End Date Krystin Christie PCP - General Nurse Practitioner 12/15/17 09/08/19 SAURABH Engel TOE LASTER [address] [facility] [place] [address] Krystin Christie PCP - Assigned PCP 08/26/18 09/18/18 SAURABH Engel TOE LASTER [address] [facility] [place] [address] Tali Vilchis MD INTERNAL MEDICINE - 04/10/15 ENDOCRINOLOGY, DIABETES 420 [facility] MET[facility]OLISM [address] [place], [place] [address] Anat Fuller MD Internal Medicine 04/10/1509/16 MD Renee [address] [facility] [address] [place], [place] [address] Janny Hutton Physician Rhit Physician Rhit 06/30/15 09/17/19 CARLA Mckeon 420 [facility] 803 [place], [place] [address] Florecita Bryan, RN Lead Dressage Instructor 08/17/18 10/24/18 Krystin Christie Assigned PCP 08/26/18 01/28/21 SAURABH Engel TOE LASTER [address] [facility] [place] [id number] documented as of this encounter
--- OUTSIDE RECORDS SUMMARY | 2022-05-09 11:03 | XMS_ITS | Encounter Summary ---
:1955 Author Organization [place] Address [facility]0 [facility] [place] [address] Care Team Providers Name Role Phone Tali Vilchis MD Unavailable Anat Fuller MD Unavailable [phone] Janny Hutton PA-C Unavailable [phone] Krystin Christie APRN PRESIDENT ERGONOMIC CONSULTING Primary Care Provider [phone] Florecita Bryan RN Unavailable Krystin Christie APRN PRESIDENT ERGONOMIC CONSULTING Unavailable [phone] Krystin Christie APRN PRESIDENT ERGONOMIC CONSULTING Unavailable [phone] Encounter Details Date Type Department Care Team Description 08/29/2018 Travel Social History Tobacco Use Types Packs/Day Years Used Date Smoking Tobacco: Never Smokeless Tobacco: Never Alcohol Use Standard Drinks/Week Comments No 0 (1 standard drink = 0.6 oz pure alcoho l) Sex Assigned at Date Recorded Female 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 documented as of this encounter Plan of Treatment Upcoming Encounters Date Type Specialty Care Team Description 05/19/2022 Office Visit ENT Dima Hidalgo M D [address] [place], [place] [address] (Wo rk) 08/02/2022 Office Visit Neurology Yair Campos MD [address] [place], [place] [address] [place] [address] (Wo rk) documented as of this encounter Visit Diagnoses Not on filedocumented in this encounter Additional Health Concerns Assessment Noted Time PHQ-9 Depression Total Score: 4 08/24/2018 11:10 AM CS T documented as of this encounter Care Teams Life Skills Specialist Relationship Specialty Start Date End Date Krystin Christie PCP - General Nurse Practitioner 12/15/17 09/08/19 SAURABH Engel PRESIDENT ERGONOMIC CONSULTING [address] [facility] [place] [address] Krystin Christie PCP - Assigned PCP 08/26/18 09/18/18 SAURABH Engel PRESIDENT ERGONOMIC CONSULTING [address] [facility] [place] [address] Tali Vilchis MD INTERNAL MEDICINE - 04/10/15 ENDOCRINOLOGY, DIABETES 420 [facility] MET[facility]OLISM 101 [place], [place] [address] Anat Fuller MD Internal Medicine 04/10/1509/16 MD Renee [address] [facility] [address] [place], [place] [address] Janny Hutton Physician Yard Goods Salesperson Physician Yard Goods Salesperson 06/30/15 09/17/19 CARLA Mckeon 420 [facility] [address]03 [place], [place] [address] Florecita Bryan, RN Lead Reverser 08/17/18 10/24/18 Krystin Christie Assigned PCP 08/26/18 01/28/21 SAURABH Engel PRESIDENT ERGONOMIC CONSULTING [address] [facility] [place] [address] documented as of this encounter
--- OUTSIDE RECORDS SUMMARY | 2022-05-09 11:03 | XMS_ITS | Encounter Summary ---
:1955 Author Organization [place] Address [facility] [place] [address] Care Team Providers Name Role Phone Tali Vilchis MD Unavailable Anat Fuller MD Unavailable [phone] Janny Hutton PA-C Unavailable [phone] Krystin Christie APRN [facility] Primary Care Provider Florecita Bryan RN Unavailable Krystin Christie APRN, CNP Unavailable [phone] Krystin Christie APRN, CNP Unavailable [phone] Reason for Referral Diagnostic Procedure Outpatient - Closed Specialty Diagnoses / Procedures Referred By Contact Refer red To Contact Diagnoses [facility] [address] [place] [phone] Fax: Referral ID Status Reason Start Date Expiration Date Visits Requ ested Visits Authorized [id number] Closed 09/04/2018 09/04/[address] Scan - Closed Specialty Diagnoses / Procedures Referred By Contact Refer red To Contact Radiology. Diagnoses SOB (shortness of breath) Krystin Christie Sh Ct Scan Procedures CT Chest Hi-Resolution wo Contrast CT Chest w Contrast PACKAGE WORKERChristina MALDONADO [address] [facility] [place]ESH [place] [phone] [facility] [place] [address] Referral ID Status Reason Start Date Expiration Date Visits Requ ested Visits Authorized [id number] Closed 08/30/2018 08/30/2019 1 1 NESS PLANNING DIRECTOR Reason for Visit Reason Comments Diabetes Respiratory Problems Encounter Details Date Type Department Care Team Description 08/30/2018 Office Visit [facility] Krystin Christie SOB (short ness of breath) (Primary Dx); Clinic Lola Engel APRN Type 2 diabetes mellitus wit hout complication, without long- term current use of insulin (H); [address] JAVA PORTAL DEVELOPER Alopecia; [address] [facility] History of corticosteroid th erapy; [address] [facility] Morbid obesity, unspecified obesity type (H); [place] [phone] [place] [address] Encounter for screening for malignant ne oplasm of colon ; [phone] Healthcare main tenance (Work) Social History Tobacco Use Types Packs/Day Years Used Date Smoking Tobacco: Never Smokeless Tobacco: Never Alcohol Use Standard Drinks/Week Comments No 0 (1 standard drink = 0.6 oz pure alcoho l) Sex Assigned at Date Recorded Female 08/17/2018 10:39 PM BUSINESS PLANNING DIRECTOR documented as of this encounter Last Filed Vital Signs Vital Sign Reading Time Taken Comments Blood Pressure 110/69 08/30/2018 4:11 PM BUSINESS PLANNING DIRECTOR Pulse 100 08/30/2018 3:55 PM BUSINESS PLANNING DIRECTOR Temperature 36.7 ??C (98 ??F) 08/30/2018 3:55 PM BUSINESS PLANNING DIRECTOR Respiratory Rate - - Oxygen Saturation 95% 08/30/2018 3:55 PM BUSINESS PLANNING DIRECTOR Inhaled Oxygen Concentration - - Weight 85.7 kg (188 lb 14.4 oz) 08/30/2018 3:55 PM BUSINESS PLANNING DIRECTOR Height 157.5 cm (5' 2) 08/30/2018 3:55 PM BUSINESS PLANNING DIRECTOR Body Mass Index 34.55 08/30/2018 3:55 PM BUSINESS PLANNING DIRECTOR documented in this encounter Patient Instructions Patient InstructionsMoliKrystin rooney APRN CNP - 08/30/2018 3:40 PM BUSINESS PLANNING DIRECTOR -Lab today -Start daily inhaler immediately when you get home -Schedule high resolution CT -Follow up with recommendations from account director NESS PLANNING DIRECTOR documented in this encounter Progress Notes Krystin Christie APRN CNP - 08/30/2018 3:40 PM CST [phone] SUBJECTIVE: [facility] Scheduling [phone] Becki Ridley is a 63 year old female who presents to clinic today for the following health issues: Patient here today for follow-up of SOB and diabetes. Patient states having dizziness today. States is starting to lose voice again, tightness in chest isreturning, extreme fatigue. States mother is in hospital. [facility] pharmacy told her fluticasone 113/a4mcg is not covered by her insurance - [employer] Upper abdominal pressure: Laying flat feels better. Feels a heavy pressure across her upper abdomen. Blood sugar: Sugar was 140 after eating an omlette. Diabetes Follow-up ?? Patient is checking blood sugars: today last check was 140 ?? Diabetic concerns: frequent infections ?? Symptoms of hypoglycemia (low blood sugar): dizzy ?? Paresthesias (numbness or burning in feet) or sores: No ?? Date of last diabetic eye exam: DUE! BP Readings from Last 2 Encounters: 08/30/18 96/54 08/29/18 123/74 Hemoglobin A1C (%) Date Value 08/16/2018 11.6 (H) 09/28/2016 9.7 (H) LDL Cholesterol Calculated (mg/dL) Date Value 08/16/2018 135 (H) Diabetes Management Resources ?? Amount of exercise or physical activity: None ?? Problems taking medications regularly: Sometimes forgets, states she has been better lately ?? Medication side effects: none Diet: diabetic ROS: const/resp/endo/cv/gi otherwise negative OBJECTIVE: BP 110/69 Pulse 100 Temp 98 ??F (36.7 ??C) (Tympanic) Ht 1.575 m (5' 2) Wt 85.7 kg (188 lb 14.4 oz) SpO2 95% BMI 34.55 kg/m?? CONSTITUTIONAL: Alert, well-nourished, well-groomed, NAD RESP: Lungs CTA. No wheeze, rhonchi, rales. CV: HRRR S1 S2 No MRG. No peripheral edema GI: Abdomen flat. BS x 4. No TTP. No HSM or masses. No CVAT ASSESSMENT/PLAN: (R06.02) SOB (shortness of breath) (primary encounter diagnosis) Comment: Unclear etiology. Patient does have a history of asthma. States she feels mildly short of breath and feels a tightness in her chest. This is also associated with a recent hospitalization for weakness where she was found to have mildly elevated LFTs and lipase, but a normal abdominal US and HIDA scan. BNP negative and EKG normal. Given this information, as well as the fact that her symptoms are non exertional, I doubt cardiac etiology. No orthopnea, swelling, etc. CT was negative for PE or pulmonary fibrosis, which was suspected given restrictive defect seen on PFTs. Plan: BNP-N terminal pro, General PFT Lab (Please always keep checked), Pulmonary Function Test, Spirometry, Breathing Capacity: Normal Order, Clinic Performed, Basic metabolic panel, CBC with platelets differential, Hepatic panel (Albumin, ALT, AST, Bili, Alk Phos, TP), Lipase, CT Chest Hi-Resolution wo Contrast, CT Chest w Contrast -Re-start controller inhaler -Continue to follow up with GI, as abdominal pressure could be contributing -F/U 2 weeks, sooner if worsening. At that time, if still having shortness of breath would consider stress test and/or referral to pulmonology. (E11.9) Type 2 diabetes mellitus without complication, without long-term current use of insulin (H) Comment: Poorly controlled but numbers much better since starting a low carbohydrate diet. She has had some blood sugars as low as 100 so she stopped the glipizide. Never picked up the Victoza due to cost. Currently working with MTM Plan: -Ok to hold on the glipizide for now. Continue Metformin. -F/U 2 weeks. Bring blood sugar meter. Call if sugars consistently over 250 and will re-start glipizide. -Continue low carbohydrate diet. 50 minutes spent with patient, over 1/2 in counseling and coordination of care regarding sob ISAURO Moreno-SONAM. NESS PLANNING DIRECTOR documented in this encounter Plan of Treatment Upcoming Encounters Date Type Specialty Care Team Description 05/19/2022 Office Visit [facility]idal[facility] [address] [facility] [address] [place], [place] [address] (Wo rk) 08/02/2022 Office Visit Neurology Yair Campos MD [address] [facility] [place] [address] (Wo rk) Scheduled Referrals Name Type Priority Associated Diagnoses Order S chedule GASTROENTEROLOGY ADULT REF Referral Routine [facility] ntenance Ordered: PROCEDURE ONLY 09/04/2018 documented as of this encounter Procedures Procedure Name Priority Date/Time Associated Diagnosis Comme nts CBC WITH PLATELETS & Routine 08/30/2018 5:15 PM SOB (shortness of Results for this DIFFERENTIAL BUSINESS PLANNING DIRECTOR breath) procedure are i n the results section. N TERMINAL PRO BNP STAT 08/30/2018 5:15 PM SOB (shortness o f Results for this OUTPATIENT BUSINESS PLANNING DIRECTOR breath) procedure are i n the results section. LIPASE Routine 08/30/2018 5:15 PM SOB (shortness of Resu lts for this BUSINESS PLANNING DIRECTOR breath) procedure are i n the results section. HEPATIC FUNCTION Routine 08/30/2018 5:15 PM SOB (shortness of Results for this PANEL BUSINESS PLANNING DIRECTOR breath) procedure are i n the results section. BASIC METABOLIC PANEL Routine 08/30/2018 5:15 PM SOB (shortnes s of Results for this BUSINESS PLANNING DIRECTOR breath) procedure are i n the results section. FECAL COLORECTAL Routine 08/30/2018 3:00 PM Encounter for Resu lts for this CANCER SCREEN FIT BUSINESS PLANNING DIRECTOR screening for procedure are in malignant neoplasm the resul ts of colon section. Healthcare maintenance HC SPIROMETRY, BREATH Routine 08/30/2018 SOB (shortness of R esults for this CAPACITY breath) procedure are i n the results section. documented in this encounter Results CT Chest Hi-Resolution wo Contrast (09/01/2018 10:44 AM BUSINESS PLANNING DIRECTOR) Anatomical Region Laterality Modality Chest, SUBRAD CT BODY, UMP CT CHEST, RAD CT Computed Tomography Specimen (Source) Anatomical Location Collection Method / Collectio n Time Received Time / Laterality Volume Impressions 09/01/2018 10:55 AM BUSINESS PLANNING DIRECTOR IMPRESSION: Normal CT scan of the chest. CHRISTIANO CEBALLOS MD Narrative 09/01/2018 10:[address] CHEST HI-RESOLUTION WO CONTRAST 09/01/2018 10:44 [...] the chest. CHRISTIANO CEBALLOS MD Krystin Christie PACKAGE WORKER JAVA PORTAL DEVELOPER IMG CT ORDERABLES Lipase (08/30/2018 5:15 PM BUSINESS PLANNING DIRECTOR) athologist Signature Lipase 311 73 - 393 08/31/2018 [facility] U/L 2:21 PM [facility] Specimen Anatomical Collection Method Collection Time Receive d Time (Source) Location / / Volume Laterality Blood specimen 08/30/2018 5:15 PM 019 5:20 (specimen) BUSINESS PLANNING DIRECTOR PM BUSINESS PLANNING DIRECTOR Krystin Christie APRN, CNP LAB - BLOOD ORDERABLES Performing Organization Address City/[facility]/ZIP Code Phon e Number [facility] [address] [place] [address] [facility] (ABNORMAL) Hepatic panel (Albumin, ALT, AST, Bili, Alk Phos, TP) (08/30/2018 5:15 PM BUSINESS PLANNING DIRECTOR) [facility] Method Time Signature Bilirubin Direct 0.1 0.0 - 0.2 08/31/2018 [place] mg/dL 1:29 PM [facility] Bilirubin Total 0.4 0.2 - 1.3 08/31/2018 [place] mg/dL 1:29 PM [facility] Albumin 3.8 3.4 - 5.0 08/31/2018 [facility] g/dL 1:29 PM [facility] Protein Total 7.2 6.8 - 8.8 08/31/2018 [facility] g/dL 1:29 PM [facility] Alkaline 58 40 - 150 08/31/2018 [place] Phosphatase U/L 1:29 PM [facility] ALT 98 (H) 0 - 50 U/L 08/31/2018 [facility] 1:29 PM [facility] AST 49 (H) 0 - 45 U/L 08/31/2018 [facility] 1:29 PM [facility] Specimen Anatomical Collection Method Collection Time Receive d Time (Source) Location / / Volume Laterality Blood specimen 08/30/2018 5:15 PM 019 5:20 (specimen) BUSINESS PLANNING DIRECTOR PM BUSINESS PLANNING DIRECTOR Krystin Christie APRN, CNP LAB - BLOOD ORDERABLES Performing Organization Address City/State/ZIP Code Phon e Number [facility] [address] [place] [address] (ABNORMAL) CBC with platelets differential (08/30/2018 5:15 PM BUSINESS PLANNING DIRECTOR) [facility] gist Method Time Signature WBC 9.3 4.0 - 08/30/2018 [facility] 11.0 6:01 PM BUSINESS PLANNING DIRECTOR CLINICS 10e9/L [place] RBC Count 5.26 (H) 3.8 - 5.2 08/30/2018 [facility] 10e12/L 6:01 PM BUSINESS PLANNING DIRECTOR CLINICS [place] Hemoglobin 14.8 11.7 - 08/30/2018 [facility] 15.7 g/dL 6:01 PM BUSINESS PLANNING DIRECTOR CLINICS [place] Hematocrit 43.5 35.0 - 08/30/2018 [facility] 47.0 % 6:01 PM BUSINESS PLANNING DIRECTOR CLINICS [place] MCV 83 78 - 100 08/30/2018 [facility] fl 6:01 PM BUSINESS PLANNING DIRECTOR CLINICS [place] MCH 28.1 26.5 - 08/30/2018 [facility] 33.0 pg 6:01 PM BUSINESS PLANNING DIRECTOR CLINICS [place] MCHC 34.0 31.5 - 08/30/2018 [facility] 36.5 g/dL 6:01 PM BUSINESS PLANNING DIRECTOR CLINICS [place] RDW 13.8 10.0 - 08/30/2018 [facility] 15.0 % 6:01 PM BUSINESS PLANNING DIRECTOR CLINICS [place] Platelet Count 225 150 - 450 08/30/2018 [facility] 10e9/L 6:01 PM BUSINESS PLANNING DIRECTOR CLINICS [place] Diff Method Automated 08/30/2018 [facility] Method 6:01 PM BUSINESS PLANNING DIRECTOR CL[facility] [place] % Neutrophils 47.8 % 08/30/2018 [facility] 6:01 PM BUSINESS PLANNING DIRECTOR [facility] [place] % Lymphocytes 44.3 % 08/30/2018 [facility] 6:01 PM BUSINESS PLANNING DIRECTOR [facility] [place] % Monocytes 4.8 % 08/30/2018 [facility] 6:01 PM BUSINESS PLANNING DIRECTOR [facility] [place] % Eosinophils 2.6 % 08/30/2018 [facility] 6:01 PM BUSINESS PLANNING DIRECTOR CL[facility] [place] % Basophils 0.5 % 08/30/2018 [facility] 6:01 PM BUSINESS PLANNING DIRECTOR CLINICS [place] Absolute 4.5 1.6 - 8.3 08/30/2018 [facility] Neutrophil 10e9/L 6:01 PM BUSINESS PLANNING DIRECTOR CLINICS [place] Absolute 4.1 0.8 - 5.3 08/30/2018 [facility] Lymphocytes 10e9/L 6:01 PM BUSINESS PLANNING DIRECTOR CLINICS [place] Absolute 0.5 0.0 - 1.3 08/30/2018 [facility] Monocytes 10e9/L 6:01 PM BUSINESS PLANNING DIRECTOR CLINICS [place] Absolute 0.2 0.0 - 0.7 08/30/2018 [facility] Eosinophils 10e9/L 6:01 PM [facility] LOL[place] Absolute 0.1 0.0 - 0.2 08/30/2018 [facility] Basophils 10e9/L 6:01 PM [facility] [place] Specimen Anatomical Collection Method Collection Time Receive d Time (Source) Location / / Volume Laterality Blood specimen 08/30/2018 5:15 PM 019 5:20 (specimen) BUSINESS PLANNING DIRECTOR PM BUSINESS PLANNING DIRECTOR Krystin Christie PACKAGE WORKER JAVA PORTAL DEVELOPER LAB - BLOOD ORDERABLES Performing Organization Address City/State/ZIP Code Phon e Number [facility] [address] [place] [address] (ABNORMAL) Basic metabolic panel (08/30/2018 5:15 PM BUSINESS PLANNING DIRECTOR) [facility] Method Time Signature Sodium 137 133 - 144 08/31/2018 [place] mmol/L 1:28 PM [facility] Potassium 4.0 3.4 - 5.3 08/31/2018 [facility] mmol/L 1:28 PM [facility] Chloride 106 94 - 109 08/31/2018 [place] mmol/L 1:28 PM [facility] Carbon Dioxide 21 20 - 32 08/31/2018 [facility] mmol/L 1:28 PM [facility] Anion Gap 10 3 - 14 08/31/2018 [facility] mmol/L 1:28 PM [facility] Glucose 144 (H) 70 - 99 08/31/2018 [facility] mg/dL 1:28 PM [facility] Urea Nitrogen 16 7 - 30 08/31/2018 [facility] mg/dL 1:28 PM [facility] Creatinine 0.69 0.52 - 08/31/2018 [facility] 1.04 mg/dL 1:28 PM [facility] GFR Estimate >90 >60 08/31/2018 [facility] mL/min/{1. 1:28 PM [facility] 73_m2} [facility] Comment: Non GFR Calc Starting 07/03/2018, serum creatinine ba sed estimated GFR (eGFR) will be calculated using the Chronic Kidney Dise ase Epidemiology Collaboration (CKD-EPI) equation. GFR Estimate If >90 >60 mL/min/{1.73_m2} 08/31/2018 1: 28 PM [facility] Comment: GFR Calc Starting 07/03/2018, serum creatinine ba sed estimated GFR (eGFR) will be calculated using the Chronic Kidney Dise ase Epidemiology Collaboration (CKD-EPI) equation. Calcium 9.2 8.5 - 10.1 mg/dL 08/31/2018 1:28 PM [facility] Specimen Anatomical Collection Method Collection Time Receive d Time (Source) Location / / Volume Laterality Blood specimen 08/30/2018 5:15 PM 019 5:20 (specimen) BUSINESS PLANNING DIRECTOR PM BUSINESS PLANNING DIRECTOR Krystin Christie APRN, CNP LAB - BLOOD ORDERABLES Performing Organization Address City/State/ZIP Code Phon e Number [facility] [address] [place] [address] BNP-N terminal pro (08/30/2018 5:15 PM BUSINESS PLANNING DIRECTOR) P athologist Signature N-Terminal Pro 52 0 - 125 08/30/2018 [facility] Bnp pg/mL 9:47 PM [facility] Comment: Reference range shown and results flagge d as abnormal are for the outpatient, non acute settings. Establishing a basel ine value for each individual patient is useful for follow-up. Suggested inpatient cut points for confi rming diagnosis of CHF in an acute setting are: >450 pg/mL (age 18 to less than 50) >900 pg/mL (age 50 to less than 75) >1800 pg/mL (75 yrs and older) An inpatient or emergency department NT- proPBNP <300 pg/mL effectively rules out acute CHF, with 99% negative predict jeromy value. Specimen Anatomical Collection Method Collection Time Receive d Time (Source) Location / / Volume Laterality Blood specimen 08/30/2018 5:15 PM 019 5:20 (specimen) BUSINESS PLANNING DIRECTOR PM BUSINESS PLANNING DIRECTOR Krystin Christie APRN, CNP LAB - BLOOD ORDERABLES Performing Organization Address City/State/ZIP Code Phon e Number [facility] [address] [place] [address] [facility] Fecal colorectal cancer screen (FIT) (08/30/2018 3:00 PM BUSINESS PLANNING DIRECTOR) Analysis Performed At Patho logist Time Signature Occult Blood Negative NEG^Negati 08/31/2018 [facility] FIT ve 10:11 PM BUSINESS PLANNING DIRECTOR [facility] Specimen Anatomical Collection Method Collection Time Receive d Time (Source) Location / / Volume Laterality Stool specimen 08/30/2018 3:00 PM 019 5:30 (specimen) BUSINESS PLANNING DIRECTOR PM BUSINESS PLANNING DIRECTOR Krystin Christie APRN, CNP LAB - STOOLS ORDERABLES Performing Organization Address City/State/ZIP Code Phon e Number [facility] [address] [place] [address] [facility] Spirometry, Breathing Capacity: Normal Order, Clinic Performed (08/30/2018) P athologist Signature FEV-1 FVC FEV1/FVC FEF 25/75 Narrative This result has an attachment that is no t available. Krystin Christie APRN, CNP PROCEDURES documented in this encounter Visit Diagnoses Diagnosis SOB (shortness of breath) - Primary Shortness of breath Type 2 diabetes mellitus without complic ation, without long-term current use of insulin (H) Alopecia Alopecia, unspecified History of corticosteroid therapy Personal history of systemic steroid the rapy Morbid obesity, unspecified obesity type (H) Encounter for screening for malignant ne oplasm of colon Special screening for malignant neoplasm s, colon Healthcare maintenance Routine general medical examination at a health care facility SOB (shortness of breath) Shortness of breath documented in this encounter Additional Health Concerns Assessment Noted Time PHQ-9 Depression Total Score: 4 08/24/2018 11:10 AM CS T documented as of this encounter Care Teams Lens Matcher Relationship Specialty Start Date End Date Krystin Christie PCP - General Nurse Practitioner 12/15/17 09/08/19 SAURABH Engel JAVA PORTAL DEVELOPER [address] [facility] [place] [address] Krystin Christie PCP - Assigned PCP 08/26/18 09/18/18 SAURABH Engel JAVA PORTAL DEVELOPER [address] [facility] [place] [address] Tali Vilchis MD INTERNAL MEDICINE - 04/10/15 MD ENDOCRINOLOGY, DIABETES [address] [place] [address] & METABOLISM [address] [place] [address] Anat Fuller MD Internal Medicine 04/10/1509/16 MD Renee [address] [facility] [address] [place] [address] Janny Hutton Physician Patient Admitting Clerk Physician Patient Admitting Clerk 06/30/15 09/17/19 CARLA Mckeon [address] [facility] [address] [place] [address] Florecita Bryan, RN Lead Boxer Operator 08/17/18 10/24/18 Krystin Christie Assigned PCP 08/26/18 01/28/21 SAURABH Engel JAVA PORTAL DEVELOPER [address] [facility] [place] [address] documented as of this encounter
--- OUTSIDE RECORDS SUMMARY | 2022-05-09 11:04 | XMS_ITS | Encounter Summary ---
:1955 Author Organization [place] Address [address] [facility] [place] [address] Care Team Providers Name Role Phone Tali Vilchis MD Unavailable Anat Fuller MD Unavailable [phone] Janny Hutton PA-C Unavailable [phone] Krystin Christie APRN, CNP Primary Care Provider [phone] Comfort Nichols MD Unavailable Comfort Nichols MD Unavailable Reason for Referral Diagnostic Imaging XR - Closed Specialty Diagnoses / Procedures Referred By Contact Refer red To Contact Diagnoses Cough Ramakrishna Marin MD Procedures XR Chest 2 Views [address] [facility] [place] [address] Referral ID Status Reason Start Date Expiration Date Visits Requ ested Visits Authorized [id number] Closed 08/09/2018 08/09/2019 1 1 EYOR INSTALLER Reason for Visit Reason Comments Urgent Care URI exposed to bacterial pneumon ia- coughing, chest is tight, head cold Encounter Details Date Type Department Care Team Description 08/09/2018 Office Visit [facility] Ramakrishna Marin M D Mild persistent asthma with acute exacer bation (Primary Dx); Urgent [facility] [place] [address] [facility] Cough; [address] [facility] Type 2 diabetes mellitus without complic ation, without long-term current use of insulin (H); [address] [place] [address] Lower respiratory tract infection [address] [place] [address] (Work) [phone] Social History Tobacco Use Types Packs/Day Years Used Date Smoking Tobacco: Never Smokeless Tobacco: Never Alcohol Use Standard Drinks/Week Comments No 0 (1 standard drink = 0.6 oz pure alcoho l) Sex Assigned at Date Recorded Female 08/17/2018 10:39 PM CONVEYOR INSTALLER documented as of this encounter Last Filed Vital Signs Vital Sign Reading Time Taken Comments Blood Pressure 138/66 08/09/2018 5:49 PM CONVEYOR INSTALLER Pulse 90 08/09/2018 5:49 PM CONVEYOR INSTALLER Temperature 36.6 ??C (97.8 ??F) 08/09/2018 5:49 PM CONVEYOR INSTALLER Respiratory Rate 20 08/09/2018 5:49 PM CONVEYOR INSTALLER Oxygen Saturation 95% 08/09/2018 5:49 PM CONVEYOR INSTALLER Inhaled Oxygen Concentration - - Weight 84.4 kg (186 lb) 08/09/2018 5:49 PM CONVEYOR INSTALLER Height - - Body Mass Index 34.02 12/15/2017 2:51 PM CDT documented in this encounter Patient Instructions Patient InstructionsRamakrishna Marin MD - 08/09/2018 5:00 PM CST Images from the original note were not included. Take full course of antibiotic for lower respiratory tract infection. Take full course of prednisone burst for acute asthma flare. Okay for tessalon perles to help with cough. Sugar checks - will be more elevated due to prednisone Patient Education Asthma (Adult) Asthma is a disease where the medium and ??small air passages within the lung go into spasm and restrict the flow of air. Inflammation and swelling of the airways cause further blockage. During an acute asthma attack, these factors cause trouble breathing, wheezing, cough and chest tightness. An asthma attack can be triggered by many things. Common triggers include infections such as the common cold, bronchitis, and pneumonia. Irritants such as smoke or pollutants in the air, very cold air,emotional upset, and exercise can also trigger an attack. In??many adults with asthma, allergies to??dust, mold, pollen and animal dander can cause an asthma attack. Skipping doses of daily asthma medicine can also bring on an asthma attack. Asthma can be controlled using the??proper medicines prescribed by your healthcare provider and avoiding exposure to known triggers including allergens and irritants. Home care ?? Take prescribed medicine exactly at the times advised. If you need medicine such as from a hand held inhaler or aerosol breathing machine more than every 4 hours, contact your healthcare provider orseek immediate medical attention. If prescribed an antibiotic or prednisone, take all of the medicine as prescribed, even if you are feeling better after a few days. ?? Don't smoke. Avoid being exposed to the smoke of others. ?? Some people with asthma have worsening of their symptoms when they take aspirin and non-steroidalor fever-reducing medicines like ibuprofen and naproxen. Talk to your healthcare provider if you think this may apply to you. Follow-up care Follow up with your healthcare provider, or as advised. Always bring all of your current medicines to any appointments with your healthcare provider. Also bring a complete list of medicines even??thosenot taken for asthma. If you don't already have one, talk to your healthcare provider about developing your own Asthma Action Plan. A pneumococcal (pneumonia)??vaccine and yearly flu shot (every fall) are recommended. Ask your doctor about this. When to seek medical advice Call your healthcare provider right away if any of these occur:? Increased wheezing or shortness of breath ?? Need to use your inhalers more often than usual without relief ?? Fever of 100.4??F (38??C) or higher, or as directed by your healthcare provider ?? Coughing up lots of dark-colored or bloody sputum (mucus) ?? Chest pain with each breath ?? If you use a peak flow meter as part of an Asthma Action Plan, and you are still in the yellow zone (50% to 80%) 15 minutes after using inhaler medicine. Call 911 Call 911 if any of the following occur ?? Trouble walking or talking because of shortness of breath ?? If you use a peak flow meter as part of an Asthma Action Plan and??you are still in the red zone (less than 50%) 15 minutes after using inhaler medicine ?? Lips or fingernails turning garcia or blue Date Last Reviewed: 11/14/2016 ?? [id number] [employer]. [address] [place] [address]. All rights reserved. This information is not intended as a substitute for professional medical care. Always follow your healthcare professional's instructions. Patient Education Bronchitis, Antibiotic Treatment (Adult) Bronchitis is an infection of the air passages (bronchial tubes) in your lungs. It often occurs whenyou have a cold. This illness is contagious during the first few days and is spread through the air by coughing and sneezing, or by direct contact (touching the sick person and then touching your own eyes, nose, or mouth). Symptoms of bronchitis include cough with mucus (phlegm) and low-grade fever. Bronchitis usually lasts 7 to 14 days. Mild cases can be treated with simple home remedies. More severe infection is treated with an antibiotic. Home care Follow these guidelines when caring for yourself at home: ?? If your symptoms are severe, rest at home for the first 2 to 3 days. When you go back to your usual activities, don't let yourself get too tired. ?? Don't smoke. Also stay away from secondhand smoke. ?? You may use iume-xav-dpeiyff medicines to control fever or pain, unless another medicine was prescribed. If you have chronic liver or kidney disease or have ever had a stomach ulcer or gastrointestinal bleeding, talk with your healthcare provider before using these medicines. Also talk to your provider if you are taking medicine to prevent blood clots. Aspirin should never be given to anyone younger than 18 who is ill with a viral infection or fever. It may cause severe liver or brain damage. ?? Your appetite may be low, so a light diet is fine. Stay well hydrated by drinking 6 to 8 glasses of fluids per day. This includes water, soft drinks, sports drinks, juices, tea, or soup. Extra fluids will help loosen mucus in your nose and lungs. ?? Vhqg-wis-yzfjnxj cough, cold, and sore-throat medicines will not shorten the length of the illness, but they may be helpful to reduce your symptoms. Don't use decongestants if you have high blood pressure. ?? Finish all antibiotic medicine. Do this even if you are feeling better after only a few days. Follow-up care Follow up with your healthcare provider, or as advised. If you had an X-ray or ECG (electrocardiogram), a specialist will review it. You will be told of any new test results that may affect your care. If you are age 65 or older, if you smoke, or if you have a chronic lung disease or condition that affects your immune system, ask??your healthcare provider about getting a??pneumococcal vaccine and a yearly flu shot (influenza vaccine). When to seek medical advice Call your healthcare provider right away if any of these occur: ?? Fever of 100.4??F (38??C) or higher, or as directed by your healthcare provider ?? Coughing up more sputum ?? Weakness, drowsiness, headache, facial pain, ear pain, or a stiff neck ?? Call 911 Call 911 if any of these occur. ?? Coughing up blood ?? Weakness, drowsiness, headache, or stiff neck that get worse ?? Trouble breathing, wheezing, or pain with breathing Date Last Reviewed: 12/15/2017 ?? [id number] [employer]. [address] [place] [address]. All rights reserved. This information is not intended as a substitute for professional medical care. Always follow your healthcare professional's instructions. EYOR INSTALLER documented in this encounter Progress Notes Ramakrishna Marin MD - 08/09/2018 5:00 PM CST SUBJECTIVE: Becki Ridley is a 63 year old female presenting with a chief complaint of cough, chest tightness. Symptoms worse on Monday. Phlegm discolored. No fever but endorsed sweats Onset of symptoms was 1 week(s) ago. Course of illness is worsening. Severity moderate Current and Associated symptoms: cough, SOB/wheezing Treatment measures tried include Fluids, Rest and mucinex. Predisposing factors include HX of asthma and ill contact - pneumonia - mother. Requesting test strip for diabetes, uncontrolled per patient but is working on this. Past Medical History: Diagnosis Date ??? Angioedema ??? Arthritis ??? Asthma ??? Blood transfusion ??? Depression ??? DM2 (diabetes mellitus, type 2) (H) ??? Hypertension ??? Lower extremity edema ??? VILLAREAL (nonalcoholic steatohepatitis) ??? Restless legs syndrome ??? Restrictive lung disease ??? Sleep apnea ??? Subclinical hypothyroidism 2010 Current Outpatient Medications Medication Sig Dispense Refill ??? ACCU-CHEK MULTICLIX LANCETS MISC test twice daily. ??? albuterol (2.5 MG/3ML) 0.083% neb solution Take 1 vial (2.5 mg) by nebulization every 6 hours asneeded for shortness of breath / dyspnea or wheezing 25 mL 0 ??? azithromycin (ZITHROMAX) 250 MG tablet Two tablets first day, then one tablet daily for four days. 6 tablet 0 ??? blood glucose monitoring (ACCU-CHEK ANNIE PLUS) test strip Use to test blood sugar 2 times dailyor as directed. 200 each 1 ??? blood glucose monitoring (JAYLENE CONTOUR NEXT) test strip Use to test blood sugar 2 times daily or as directed. 200 each 3 ??? blood glucose monitoring (JAYLENE MICROLET) lancets Use to test blood sugar 2 times daily or as directed. 4 Box 3 ??? blood glucose monitoring (SOFTCLIX) lancets Use to test blood sugar 2 times daily or as directed. 2 Box 3 ??? blood glucose monitoring (ULTRA THIN 30G) lancets Use to test blood sugar 2 times daily (lancetsthat go with device covered by insurance) 2 Box 3 ??? Blood Glucose Monitoring Suppl (IBG STAR) W/DEVICE KIT Any glucose meter covered by insurance use as directed (not store brand) 1 kit 1 ??? busPIRone (BUSPAR) 5 MG tablet Take 5 mg by mouth daily ??? cetirizine (ZYRTEC) 10 MG tablet Take 1 tablet by mouth daily as needed. For hives 90 tablet 3 ??? cyclobenzaprine (FLEXERIL) 10 MG tablet Take 0.5-1 tablets (5-10 mg) by mouth 3 times daily as needed for muscle spasms 20 tablet 0 ??? dulaglutide (TRULICITY) 0.75 MG/0.5ML pen Inject 0.75 mg Subcutaneous every 7 days 3 mL 1 ??? EPINEPHrine (EPIPEN 2-KITTY) 0.3 MG/0.3ML injection Inject 0.3 mg into the muscle once as needed. ??? fluticasone (FLONASE) 50 MCG/ACT spray [place] 1-2 sprays into both nostrils daily 1 Bottle 11 ??? fluticasone-salmeterol (ADVAIR DISKUS) 500-50 MCG/DOSE diskus inhaler Inhale 1 puff into the lungs every 12 hours. ??? furosemide (LASIX) 20 MG tablet Take 1 tablet by mouth 2 times daily. ??? Glucose Blood (BLOOD GLUCOSE TEST STRIPS) STRP Test 2 times daily (strips that go with meter covered by insurance) 200 each 3 ??? glucose blood test strips (ACCU-CHEK COMPACT TEST DRUM) strip Test twice daily. 1 Box 12 ??? ibuprofen (ADVIL,MOTRIN) 200 MG tablet Take 3 tablets (600 mg) by mouth every 8 hours as needed for mild pain 20 tablet 0 ??? levocetirizine (XYZAL) 5 MG tablet Take 5 mg by mouth ??? levothyroxine (SYNTHROID/LEVOTHROID) 50 MCG tablet Take 1 tablet (50 mcg) by mouth daily 90 tablet 1 ??? liraglutide (VICTOZA PEN) 18 MG/3ML soln Inject 0.6 mg Subcutaneous daily 9 mL 3 ??? metFORMIN (GLUCOPHAGE-XR) 500 MG 24 hr tablet TAKE 4 TABLETS(2000 MG) BY MOUTH DAILY WITH [id number] tablet 2 ??? mometasone (NASONEX) 50 MCG/ACT nasal spray 1 spray by Both Nostrils route every 12 hours. ??? montelukast (SINGULAIR) 10 MG tablet Take 1 tablet by mouth daily. ??? Potassium Gluconate 595 MG TABS Take 1 tablet by mouth 2 times daily. ??? traMADol (ULTRAM) 50 MG tablet Take 1-2 tablets (50-100 mg) by mouth every 8 hours as needed forsevere pain Patient has been on Tramadol without any adverse effects nor allergic reactions. 20 tablet 0 Social History Tobacco Use ??? Smoking status: Never Smoker ??? Smokeless tobacco: Never Used Substance Use Topics ??? Alcohol use: No Alcohol/week: 0.0 oz ROS: Review of systems negative except as stated above. OBJECTIVE: BP 138/66 (BP Location: Right arm) Pulse 90 Temp 97.8 ??F (36.6 ??C) (Tympanic) Resp 20 Wt 84.4 kg (186 lb) SpO2 95% BMI 34.02 kg/m?? GENERAL APPEARANCE: healthy, alert and no distress EYES: EOMI, PERRL, conjunctiva clear HENT: ear canals and TM's normal. Nose and mouth without ulcers, erythema or lesions NECK: supple, nontender, no lymphadenopathy RESP: lungs with diffuse wheezes CV: regular rates and rhythm, normal S1 S2, no murmur noted SKIN: no suspicious lesions or rashes PSYCH: mentation appears normal and affect normal/bright CXR - no acute infiltrate, no pleural effusion, no pneumothorax personally viewed by me ASSESSMENT/PLAN: (J45.31) Mild persistent asthma with acute exacerbation (primary encounter diagnosis) Plan: albuterol (PROVENTIL) neb solution 2.5 mg, predniSONE (DELTASONE) 20 MG tablet, ipratropium - albuterol 0.5 mg/2.5 mg/3 mL (DUONEB) neb solution 3 mL, ipratropium - albuterol 0.5 mg/2.5 mg/3 mL (DUONEB) 0.5-2.5 (3) MG/3ML neb solution, INHALATION/NEBULIZER TREATMENT, INITIAL (R05) Cough Comment: asthma flare Plan: XR Chest 2 Views, benzonatate (TESSALON) 100 MG capsule (E11.9) Type 2 diabetes mellitus without complication, without long-term current use of insulin (H) Plan: Glucose Blood (BLOOD GLUCOSE TEST STRIPS) STRP (J22) Lower respiratory tract infection Plan: amoxicillin-clavulanate (AUGMENTIN) 875-125 MG tablet Albuterol neb given in clinic with minimal improvement, duoneb given in clinic with symptomatic improvement of symptoms, still wheezing but improved. RX prednisone burst and RX duo neb solutions given,reviewed that due to prednisone use that glucose will be more elevated. Reassurance given that Xray without any pneumonia but due to co-morbid medical problems, will empirically cover for infection - RX Augmentin given. RX tessalon perles given to help with cough. Reviewed importance of improving diabetes as uncontrolled diabetes indirectly causes more frequent infections. Refill test strips, encourage medication adherence, exercise and diet. Follow up with primary provider in 1-2 week for recheck. Ramakrishna Marin MD EYOR INSTALLER documented in this encounter Nursing Notes Stephanie Abad CMA - 08/09/2018 5:00 PM CST The following nebulizer treatment was given: MEDICATION: Albuterol Sulfate 2.5 mg OIL PLANT OPERATOR: [employer] LOT #: [id number] EXPIRATION DATE: 04/[address] [facility] # [id number] Nebulizer Start Time: 7:30 pm Nebulizer Stop Time: 7:45 pm See Vital Signs Flowsheet EYOR INSTALLER documented in this encounter Plan of Treatment Upcoming Encounters Date Type Specialty Care Team Description 05/19/2022 Office Visit ENT Dima Hidalgo M D [address] [place], [place] [address] (Wo rk) 08/02/2022 Office Visit Neurology Yair Campos MD [address] [facility] [address] [place], [place] [id number] (Wo rk) documented as of this encounter Procedures Procedure Name Priority Date/Time Associated Diagnosis Comme nts HC Routine 08/15/2018 9:55 AM Mild persistent INHALATION/NEBULIZE CONVEYOR INSTALLER asthma with acute R TREATMENT, exacerbation INITIAL XR CHEST 2 VIEWS STAT 08/09/2018 7:01 PM Cough Resul ts for this CONVEYOR INSTALLER procedure are i n the results section. documented in this encounter Results XR Chest 2 Views (08/09/2018 7:01 PM CONVEYOR INSTALLER) Anatomical Region Laterality Modality Chest Computed Radiography Specimen (Source) Anatomical Location Collection Method / Collectio n Time Received Time / Laterality Volume Impressions 08/09/2018 7:11 PM CONVEYOR INSTALLER IMPRESSION: No acute abnormality. Lungs are well-inflated and clear. Heart size is normal. ELIDA GAUTAM MD Narrative 08/09/2018 7:11 PM CONVEYOR INSTALLER CHEST TWO VIEWS August 09, 2018 7:01 PM HISTORY: Cough for one week, asthma flar e. Cough. COMPARISON: 06/17/2018. Procedure Note Elida Gautam MD - 08/09/2018F ormatting of this note might be different from the original. CHEST TWO VIEWS August 09, 2018 7:01 PM HISTORY: Cough for one week, asthma flar e. Cough. COMPARISON: 06/17/2018. IMPRESSION: No acute abnormality. Lungs are well-inflated and clear. Heart size is normal. ELIDA GAUTAM MD Ramakrishna Marin MD IMG DIAGNOSTIC IMAGING ORDER CHAI documented in this encounter Visit Diagnoses Diagnosis Mild persistent asthma with acute exacer bation - Primary Unspecified asthma, with exacerbation Cough Type 2 diabetes mellitus without complic ation, without long-term current use of insulin (H) Lower respiratory tract infection Other diseases of respiratory system, no t elsewhere classified documented in this encounter Administered Medications Inactive Administered Medications - up to 3 most recent administrations Medication Order MAR Action Action Date Dose Rate Site albuterol (PROVENTIL) neb solution Given 08/09/2018 7:30 PM CONVEYOR INSTALLER 2.5 mg 2.5 mg 2.5 mg, Nebulization, ONCE, On [place] 08/09/18 at 1900, For 1 dose documented in this encounter Care Teams Port Patrol Officer Relationship Specialty Start Date End Date Krystin Christie PCP - General Nurse Practitioner 12/15/17 09/08/19 SAURABH nEgel [facility] [address] [facility] [place] [id number] Comfort Nichols MD PCP - Assigned PCP 04/08/18 08/25/18 [address] [facility] [place] [id number] Tali Vilchis MD INTERNAL MEDICINE - 04/10/15 ENDOCRINOLOGY, DIABETES [address] [facility] [address] [place], [place] [phone] Anat Fuller MD Internal Medicine 04/10/1509/16 MD Renee [address] [facility] [address] [place], [place] [phone] Janny Hutton Physician Candy Supervisor Physician Candy Supervisor 06/30/15 09/17/19 CARLA Mckeon [address] [facility] [address] [place], [place] [phone] Comfort Nichols MD Assigned PCP 04/08/18 08/25/[address] [place] [address] [place] [address] documented as of this encounter
--- OUTSIDE RECORDS SUMMARY | 2022-05-09 11:04 | XMS_ITS | Encounter Summary ---
:1955 Author Organization [place] Address [address] [facility] [place] [address] Care Team Providers Name Role Phone Tali Vilchis MD Unavailable Anat Fuller MD Unavailable [phone] Janny Hutton PA-C Unavailable [phone] No Ref-Primary, Physician Primary Care Provider [phone] Reason for Visit Reason Comments Medication Refill Encounter Details Date Type Department Care Team Description 10/02/2017 Refill [facility] Endocrinolo Sonja Quintero, Medication Refill [address] [facility] [address] [place] [address] [address] [place], [place] [phone] [place] [address] (Wo rk) Social History Tobacco Use Types Packs/Day Years Used Date Smoking Tobacco: Never Smokeless Tobacco: Never Alcohol Use Standard Drinks/Week Comments No 0 (1 standard drink = 0.6 oz pure alcoho l) Sex Assigned at Date Recorded Female 08/17/2018 10:39 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 documented as of this encounter Plan of Treatment Upcoming Encounters Date Type Specialty Care Team Description 05/19/2022 Office Visit ENT Dima Hidalgo M D [address] [place] [address] (Wo rk) 08/02/2022 Office Visit Neurology Yair Campos MD [address] [place] [address] [place], [place] [phone] (Wo rk) documented as of this encounter Visit Diagnoses Diagnosis Type 2 diabetes mellitus without complic ation, without long-term current use of insulin (H) Alopecia Alopecia, unspecified History of corticosteroid therapy Personal history of systemic steroid the rapy Morbid obesity, unspecified obesity type (H) documented in this encounter Care Teams Tile Erector Relationship Specialty Start Date End Date No Ref-Primary, PCP - General 11/02/16 12/14/17 Physician Tali Vilchis MD MD INTERNAL MEDICINE - 04/10/15 09/17/[address] [place] [address] ENDOCRINOLOGY, DIABETES [address] [place], [place] [address] Anat Fuller MD Internal Medicine 04/10/1509/16 MD Renee [address] [facility] [address] [place], [place] [phone] Janny Hutton, Physician Warp Hanger Physician Warp Hanger 06/1609/17/19 PAZachC [address] [facility] [address] [place] [address] documented as of this encounter
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
--- OUTSIDE RECORDS SUMMARY | 2022-05-09 11:04 | XMS_ITS | Encounter Summary ---
:1955 Author Organization [place] Address [facility] [place] [address] Care Team Providers Name Role Phone Tali Vilchis MD Unavailable Anat Fuller MD Unavailable [phone] Janny Hutton PA-C Unavailable [phone] Krystin Christie APRN TIMBER FALLER Primary Care Provider [phone] Comfort Nichols MD Unavailable Comfort Nichols MD Unavailable Encounter Details Date Type Department Care Team Description 08/16/2018 Travel Social History Tobacco Use Types Packs/Day Years Used Date Smoking Tobacco: Never Smokeless Tobacco: Never Alcohol Use Standard Drinks/Week Comments No 0 (1 standard drink = 0.6 oz pure alcoho l) Sex Assigned at Date Recorded Female 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 documented as of this encounter Plan of Treatment Upcoming Encounters Date Type Specialty Care Team Description 05/19/2022 Office Visit ENT Dima Hidalgo M D [address] [place] [address] (Wo rk) 08/02/2022 Office Visit Neurology Yair Campos MD [address] [facility] [place] [address] [place], [place] [address] (Wo rk) documented as of this encounter Visit Diagnoses Not on filedocumented in this encounter Care Teams Chief Mate Relationship Specialty Start Date End Date Krystin Christie PCP - General Nurse Practitioner 12/15/17 09/08/19 SAURABH Engel TIMBER FALLER [address] [facility] [place] [id number] Comfort Nichols MD PCP - Assigned PCP 04/08/18 08/25/[address] [place] [address] [place] [id number] Tali Vilchis MD INTERNAL MEDICINE - 04/10/15 ENDOCRINOLOGY, DIABETES [address] [facility] [address] [place], [place] [address] Anat Fuller MD Internal Medicine 04/10/1509/16 MD Renee [address] [facility] [address] [place], [place] [address] Janny Hutton Physician Mobile Security Specialist Physician Mobile Security Specialist 06/30/15 09/17/19 CARLA Mckeon [address] [facility] [address] [place], [place] [address] Comfort Nichols MD Assigned PCP 04/08/18 08/25/[address] [place] [address] [place] [address] documented as of this encounter
--- OUTSIDE RECORDS SUMMARY | 2022-05-09 11:04 | XMS_ITS | Encounter Summary ---
:1955 Author Organization [place] Address [facility] [place] [address] Care Team Providers Name Role Phone Tali Vilchis MD Unavailable Anat Fuller MD Unavailable [phone] Janny Hutton PA-C Unavailable [phone] Krystin Christie APRN SUPERVISOR HOME ENERGY CONSULTANT Primary Care Provider [phone] Comfort Nichols MD Unavailable Comfort Nichols MD Unavailable Encounter Details Date Type Department Care Team Description 08/09/2018 Travel Social History Tobacco Use Types Packs/Day Years Used Date Smoking Tobacco: Never Smokeless Tobacco: Never Alcohol Use Standard Drinks/Week Comments No 0 (1 standard drink = 0.6 oz pure alcoho l) Sex Assigned at Date Recorded Female 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 documented as of this encounter Plan of Treatment Upcoming Encounters Date Type Specialty Care Team Description 05/19/2022 Office Visit ENT Dima Hidalgo M D [address] [place] [address] (Wo rk) 08/02/2022 Office Visit Neurology Yair Campos MD [address] [facility] [place], [place] [address] (Wo rk) documented as of this encounter Visit Diagnoses Not on filedocumented in this encounter Care Teams Center Medical And Lab Director Relationship Specialty Start Date End Date Krystin Christie PCP - General Nurse Practitioner 12/15/17 09/08/19 SAURABH Engel SUPERVISOR HOME ENERGY CONSULTANT [address] [facility] [place] [id number] Comfort Nichols MD PCP - Assigned PCP 04/08/18 08/25/[address] [place] [address] [place] [id number] Tali Vilchis MD INTERNAL MEDICINE - 04/10/15 ENDOCRINOLOGY, DIABETES [address] [facility] [address] [place], [place] [address] Anat Fuller MD Internal Medicine 04/10/1509/16 MD Renee [address] [facility] [address] [place], [place] [address] Janny Hutton Physician Compensation Consulting Manager Physician Compensation Consulting Manager 06/30/15 09/17/19 CARLA Mckeon [address] [facility] [address] [place], [place] [address] Comfort Nichols MD Assigned PCP 04/08/18 08/25/[address] [place] [address] [place] [address] documented as of this encounter
--- OUTSIDE RECORDS SUMMARY | 2022-05-09 11:04 | XMS_ITS | Encounter Summary ---
:1955 Author Organization [place] Address [facility] [address] Care Team Providers Name Role Phone Tali Vilchis MD Unavailable Anat Fuller MD Unavailable [phone] Janny Hutton PA-C Unavailable [phone] Krystin Christie APRN WEIGHT LOSS CONSULTANT Primary Care Provider [phone] Comfort Nichols MD Unavailable Florecita Bryan RN Unavailable Comfort Nichols MD Unavailable Reason for Visit Reason Onset Date Comments Appointment 08/17/2018 with MTM Encounter Details Date Type Department Care Team Description 08/17/2018 Telephone [facility] Krystin Christie (with [place]) Clinic Lola Engel APRN WEIGHT LOSS CONSULTANT [address] [place] [address] [facility] [address] [place] [address] [place] [phone] Social History Tobacco Use Types Packs/Day Years Used Date Smoking Tobacco: Never Smokeless Tobacco: Never Alcohol Use Standard Drinks/Week Comments No 0 (1 standard drink = 0.6 oz pure alcoho l) Sex Assigned at Date Recorded Female 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 EWATER SUPERVISOR Telephone Encounter - Krystin Christie APRN CNP - 08/17/2018 12:02 PM WASTEWATER SUPERVISOR Please call patient and let her know she does have MTM coverage and that Rose Marie would like to see her salima. PLease set up first available. Thanks! ISAURO Moreno-DNP. EWATER SUPERVISOR documented in this encounter Plan of Treatment Upcoming Encounters Date Type Specialty Care Team Description 05/19/2022 Office Visit ENT Dima Hidalgo M D [address] [facility] Saroj [place], [place] [address] (Wo rk) 08/02/2022 Office Visit Neurology Yair Campos MD [address] [place] [address] (Wo rk) documented as of this encounter Visit Diagnoses Not on filedocumented in this encounter Care Teams Lead Person Relationship Specialty Start Date End Date Krystin Christie PCP - General Nurse Practitioner 12/15/17 09/08/19 SAURABH Engel WEIGHT LOSS CONSULTANT [address] [facility] [place] [id number] Comfort Nichols MD PCP - Assigned PCP 04/08/18 08/25/18 [address] [facility] [place] [address] Tali Vilchis MD INTERNAL MEDICINE - 04/10/15 ENDOCRINOLOGY, DIABETES [address] [place] [address] [address]MC & METABOLISM [address] [place] [address] Anat Fuller MD Internal Medicine 04/10/1509/16 MD Renee [address] [place] [address] [address] [place] [address] Janny Hutton Physician Caustic Operator Physician Caustic Operator 06/30/15 09/17/19 CARLA Mckeon [address] [facility] [address] [place], [place] [id number] Florecita Bryan, RN Lead Purchasing Analyst 08/17/18 10/24/18 Comfort Nichols MD Assigned PCP 04/08/18 08/25/18 [address] [facility] [place] [address] documented as of this encounter
--- OUTSIDE RECORDS SUMMARY | 2022-05-09 11:04 | XMS_ITS | Encounter Summary ---
:1955 Author Organization [place] Address [facility] [place] [address] Care Team Providers Name Role Phone Tali Vilchis MD Unavailable Anat Fuller MD Unavailable [phone] Janny Hutton PA-C Unavailable [phone] No Ref-Primary, Physician Primary Care Provider [phone] Reason for Visit Reason Onset Date Comments Prior Auth - Medication 11/21/2017 dulaglutide (NATALIE LICITY) 0.75 MG/0.5ML pen-[place] approved Encounter Details Date Type Department Care Team Description 11/21/2017 Telephone [facility] Endocrinuriah Akins, Prior Auth - Medication 9[address] [facility] Janny Hammond RN (dulaglutide 3rd Floor [phone] (TRULICITY) 0.75 [place], [place] (Work) MG[place]0.5[place] [id number] approved) [phone] Social History Tobacco Use Types Packs/Day Years Used Date Smoking Tobacco: Never Smokeless Tobacco: Never Alcohol Use Standard Drinks/Week Comments No 0 (1 standard drink = 0.6 oz pure alcoho l) Sex Assigned at Date Recorded Female 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 Prior Authorization Not Needed per Insurance Medication: dulaglutide (TRULICITY) 0.75 MG/0.5ML pen-PA approved Insurance Company: [email or web address] - Expected CoPay: Pharmacy Filling the Rx: [id number] - [place], [place] - [address] [facility] Pharmacy Notified: Yes Patient Notified: No Telephone Encounter - Irma Le - 11/22/2017 12:54 PM CDT Central Prior Authorization Team PA Initiation-Manually faxed forms to [facility] Medication: dulaglutide (TRULICITY) 0.75 MG/0.5ML pen-PA initiated Insurance Company: [email or web address] - Pharmacy Filling the Rx: [id number] - [place], [facility] [address] [facility] Filling Pharmacy Filling Pharmacy Fax: Start Date: 11/22/2017 Telephone Encounter - Irma Le - 11/22/2017 10:43 AM CDT Blayne from [facility] is faxing PA forms. Unable to complete via CMM. Telephone Encounter - Janny Akins RN - 11/21/2017 5:38 PM CDT PA needed for Trulicity 0.75 mg once weekly Type 2 diabetes She has used Byetta and Victoza , metformin And invokana in the past But daily injections made her noncompliant. Hoping that Trulicity once weekly will help with compliance. Her Hemoglobin A1c is at 10.9 % She needs a GLP 1 to get this down . documented in this encounter Plan of Treatment Upcoming Encounters Date Type Specialty Care Team Description 05/19/2022 Office Visit ENT Dima Hidalgo M D [address] [place], [place] [address] (Wo rk) 08/02/2022 Office Visit Neurology Yair Campos MD [address] [facility] [address] [place], [place] [phone] (Wo rk) documented as of this encounter Visit Diagnoses Not on filedocumented in this encounter Care Teams Traffic Police Officer Relationship Specialty Start Date End Date No Ref-Primary, PCP - General 11/02/16 12/14/17 Physician Tali Vilchis MD MD INTERNAL MEDICINE - 04/10/15 09/17/19 [address] [facility] ENDOCRINOLOGY, DIABETES [address] & METABOLISM [place], [place] [phone] Anat Fuller MD Internal Medicine 04/10/1509/16 MD Renee 516 [facility] [address] [place] [address] Janny Hutton, Physician Clinical Education Assistant Physician Clinical Education Assistant 06/1609/17/19 CARLA 420 [facility] [address] [place], [place] [phone] documented as of this encounter
--- OUTSIDE RECORDS SUMMARY | 2022-05-09 11:04 | XMS_ITS | Encounter Summary ---
:1955 Author Organization [place] Address [address] [facility] [place] [address] Care Team Providers Name Role Phone Tali Vilchis MD Unavailable Anat Fuller MD Unavailable [phone] Janny Hutton PA-C Unavailable [phone] Krystin Christie APRN DISPATCHER SHIP PILOT Primary Care Provider [phone] Comfort Nichols MD Unavailable Comfort Nichols MD Unavailable Reason for Visit Reason Onset Date Comments Panel Management 04/05/2018 ACT, AAP, colonoscop y/FIT, mammogram Encounter Details Date Type Department Care Team Description 04/05/2018 Telephone [facility] Krystin Christie (ACT, Clinic Lola Engel APRN CNP AAP, colonoscopy/FIT, Laboratory [address] [facility] mammogram) [address] [facility] [place] [address] [address] [place] [address] [phone] Social History Tobacco Use Types Packs/Day Years Used Date Smoking Tobacco: Never Smokeless Tobacco: Never Alcohol Use Standard Drinks/Week Comments No 0 (1 standard drink = 0.6 oz pure alcoho l) Sex Assigned at Date Recorded Female 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 Lauren Linares CMA Telephone Encounter - Lauren Linares MA - 04/05/2018 11:17 AM CDT Panel Management Review Patient has the following on her problem list: Asthma review No flowsheet data found. 1. Is Asthma diagnosis on the Problem List? Yes 2. Is Asthma listed on Health Maintenance? Yes 3. Patient is due for: ACT and AAP Diabetes Patient sees endo - last visit 11/20/17 - was supposed to return in 6 weeks - did not RTC ASA: Failed - not on list as prescribed or not prescribed purposely Last A1C Lab Results Component Value Date A1C 9.7 09/28/2016 A1C 9.2 06/30/2015 A1C 9.0 07/04/2011 A1C 6.3 03/02/2011 A1C 7.2 04/21/2010 A1C tested: FAILED Last LDL: No results found for: CHOL No results found for: HDL No results found for: LDL No results found for: TRIG No results found for: CHOLHDLRATIO No results found for: NHDL Is the patient on a Statin? NO Is the patient on Aspirin? NO Last three blood pressure readings: BP Readings from Last 3 Encounters: 12/15/17 106/60 11/20/17 121/81 10/10/17 135/75 Date of last diabetes office visit: 11/20/17 - endo Tobacco History: History Smoking Status ??? Never Smoker Smokeless Tobacco ??? Never Used Composite cancer screening Chart review shows that this patient is due/due soon for the following Mammogram and Colonoscopy Summary: Patient is due/failing the following: AAP, ACT, COLONOSCOPY, FIT, LDL, MAMMOGRAM and PHYSICAL Action needed: Patient needs office visit for physical, mammogram, colonoscopy/FIT and fasting labs. Type of outreach: Sent letter. Questions for provider review: None Lauren Linares CMA Chart routed to Care Team . documented in this encounter Plan of Treatment Upcoming Encounters Date Type Specialty Care Team Description 05/19/2022 Office Visit ENT Dima Hidalgo M D [address] [place] [address] (Wo rk) 08/02/2022 Office Visit Neurology Yair Campos MD [address] [place] [address] (Wo rk) documented as of this encounter Visit Diagnoses Not on filedocumented in this encounter Care Teams Occupational Therapy Manager Relationship Specialty Start Date End Date Krystin Christie PCP - General Nurse Practitioner 12/15/17 09/08/19 SAURABH Engel DISPATCHER SHIP PILOT [address] [facility] [place] [id number] Comfort Nichols MD PCP - Assigned PCP 04/08/18 08/25/18 [address] [facility] [place] [id number] Tali Vilchis MD INTERNAL MEDICINE - 04/10/15 ENDOCRINOLOGY, DIABETES [address] [place], [place] [address] Anat Fuller MD Internal Medicine 04/10/1509/16 MD Renee [address] [facility] [address] [place], [place] [address] Janny Hutton Physician Manager [place] Physician Manager [place] 06/30/15 09/17/19 CARLA Mckeon [address] [place], [place] [address] Comfort Nichols MD Assigned PCP 04/08/18 08/25/18 [address] [facility] [place] [id number] documented as of this encounter
--- OUTSIDE RECORDS SUMMARY | 2022-05-09 11:04 | XMS_ITS | Encounter Summary ---
:1955 Author Organization [place] Address [address] [facility] [place] [address] Care Team Providers Name Role Phone Tali Vilchis MD Unavailable Anat Fuller MD Unavailable [phone] Janny Hutton PA-C Unavailable [phone] No Ref-Primary, Physician Primary Care Provider [phone] Reason for Visit Reason Comments Cough Encounter Details Date Type Department Care Team Description 10/10/2017 Emergency [facility] Bria Bustamante Acute bronchitis, [facility] Emergency Dep alexander Friedman PA-C unspecified organism [address] [place], [place] ORTHOPEDICS- [place] [address] URGENT CARE [phone] [address] [place] [address] (Wo rk) Social History Tobacco Use Types Packs/Day Years Used Date Smoking Tobacco: Never Smokeless Tobacco: Never Alcohol Use Standard Drinks/Week Comments No 0 (1 standard drink = 0.6 oz pure alcoho l) Sex Assigned at Date Recorded Female 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 documented as of this encounter Last Filed Vital Signs Vital Sign Reading Time Taken Comments Blood Pressure 135/75 10/10/2017 6:51 PM CDT Pulse 86 10/10/2017 7:36 PM CDT Temperature 37.6 ??C (99.7 ??F) 10/10/2017 6:51 PM CDT Respiratory Rate 18 10/10/2017 6:51 PM CDT Oxygen Saturation 100% 10/10/2017 7:36 PM CDT Inhaled Oxygen Concentration - - Weight - - Height - - Body Mass Index - - documented in this encounter Discharge Instructions Discharge Bria Sams PA-C - 10/10/2017 7:45 PM CDT Discharge Instructions Bronchitis, Pneumonia, Bronchospasm You were seen today for a chest infection or inflammation. If your provider decided this was due to a bacterial infection, you may need an antibiotic. Sometimes these are caused by a virus, and then anantibiotic will not help. Generally, every Emergency Department visit should have a follow-up clinic visit with either a primary or a specialty clinic/provider. Please follow-up as instructed by your emergency provider today. Return to the Emergency Department if: ??? Your breathing gets much worse. ??? You are very weak, or feel much more ill. ??? You develop new symptoms, such as chest pain. ??? You cough up blood. ??? You are vomiting (throwing up) enough that you cannot keep fluids or your medicine down. What can I do to help myself? Fill any prescriptions the provider gave you and take them right away--especially antibiotics. Be sure to finish the whole antibiotic prescription. ??? You may be given a prescription for an inhaler, which can help loosen tight air passages. Use this as needed, but not more often than directed. Inhalers work much better when used with a spacer. ??? You may be given a prescription for a steroid to reduce inflammation. Used long-term, these can have side effects, but for short-term use they are safe. You may notice restlessness or increased appetite. ??? You may use non-prescription cough or cold medicines. Cough medicines may help, but don???t makethe cough go away completely. ??? Avoid smoke, because this can make your symptoms worse. If you smoke, this may be a good time toquit! Consider using nicotine lozenges, gum, or patches to reduce cravings. ??? If you have a fever, Tylenol?? (acetaminophen), Motrin?? (ibuprofen), or Advil?? (ibuprofen) mayhelp bring fever down and may help you feel more comfortable. Be sure to read and follow the packagedirections, and ask your provider if you have questions. ??? Be sure to get your flu shot each year. For certain ages, the pneumonia shot can help prevent pneumonia. If you were given a prescription for medicine here today, be sure to read all of the information (including the package insert) that comes with your prescription. This will include important information about the medicine, its side effects, and any warnings that you need to know about. The pharmacist who fills the prescription can provide more information and answer questions you may have about the medicine. If you have questions or concerns that the pharmacist cannot address, please call or return to the Emergency Department. Remember that you can always come back to the Emergency Department if you are not able to see your regular provider in the amount of time listed above, if you get any new symptoms, or if there is anything that worries you. documented in this encounter Medications at Time of Discharge Medication Sig Dispensed Refills Start Date End Date EPINEPHrine (EPIPEN) Inject 0.3 mg into 0 0.3 MG/0.3ML injection the muscle once as needed. ACCU-CHEK MULTICLIX test twice daily. 0 1 08/17/2018 ISIDRO LINARES albuterol (2.5 MG/3ML) Take 1 vial (2.5 mg) 25 mL 0 09/09/2018 0.083% neb solution by nebulization every 6 hours as needed for shortness of breath / dyspnea or wheezing azithromycin (ZITHROMAX Take 2 tablets now, 6 tablet 0 12/15/2017 Z-KITTY) 250 MG tablet then 1 tablet daily for 4 days. blood glucose Use to test blood 200 each 1 07/07/20150 07/2018 monitoring (ACCU-CHEK sugar 2 times daily ANNIE PLUS) test or as directed. stripIndications: Type 2 diabetes mellitus without complication (H) blood glucose Use to test blood [...] (H) blood glucose Use to test blood 2 Box 3 08/08/201607/2018 monitoring (SOFTCLIX) sugar 2 times daily lancetsIndications: or as directed. Type 2 diabetes mellitus without complication (H) blood glucose Use to test blood 2 Box 3 07/01/201507/2018 monitoring (ULTRA THIN sugar 2 times daily 30G) (lancets that go with lancetsIndications: device covered by Diabetes mellitus, type insurance) 2 (H) Blood Glucose Any glucose meter 1 kit 1 07/01/201507/2018 Monitoring Suppl (IBG covered by insurance STAR) W/DEVICE use as directed (not KITIndications: store brand) Diabetes mellitus, type 2 (H) busPIRone (BUSPAR) 5 MG Take 5 mg by mouth 0 08/17/2018 tablet daily cetirizine (ZYRTEC) 10 Take 1 tablet by 90 tablet 3 012 08/17/2018 MG tabletIndications: mouth daily as Asthma, Hives needed. For hives fluticasone (FLONASE) [place] 1-2 sprays into 1 Bottle 11 08/17/2018 50 MCG/ACT spray both nostrils daily fluticasone-salmeterol Inhale 1 puff into 0 08/17/2018 (ADVAIR DISKUS) 500-50 the lungs every 12 MCG/DOSE diskus inhaler hours. furosemide (LASIX) 20 Take 1 tablet by 0 08/17/2018 MG tablet mouth 2 times daily. Glucose Blood (BLOOD Test 2 times daily 200 each 3 015 08/09/2018 GLUCOSE TEST STRIPS) (strips that go with STRPIndications: meter covered by Diabetes mellitus, type insurance) 2 (H) glucose blood test Test twice daily. 1 Box 12 011 08/17/2018 strips (ACCU-CHEK COMPACT TEST DRUM) strip ibuprofen Take 3 tablets (600 20 tablet 0 05/26/201408/17 (ADVIL,MOTRIN) 200 MG mg) by mouth every 8 tablet hours as needed for mild pain levocetirizine (XYZAL) Take 5 mg by mouth 0 04/1008/17/2018 5 MG tabletIndications: Type 2 diabetes mellitus without complication (H), Hypothyroidism, unspecified hypothyroidism type levothyroxine Take 1 tablet (50 90 tablet 1 09/13/2017 02/0 07/2018 (SYNTHROID/LEVOTHROID) mcg) by mouth daily 50 MCG tabletIndications: Subclinical hypothyroidism liraglutide (VICTOZA Inject 0.6 mg 9 mL 3 09/29/2016 0 08/16/2018 PEN) 18 MG/3ML Subcutaneous daily solnIndications: Type 2 diabetes mellitus without complication, without long-term current use of insulin (H), Alopecia, History of corticosteroid therapy, Morbid obesity, unspecified obesity type (H) metFORMIN TAKE 4 TABLETS(2000 360 tablet 2 10/09/201709/20 (GLUCOPHAGE-XR) 500 MG MG) BY MOUTH DAILY 24 hr WITH DINNER tabletIndications: Type 2 diabetes mellitus without complication, without long-term current use of insulin (H), Alopecia, History of corticosteroid therapy, Morbid obesity, unspecified obesity type (H) mometasone (NASONEX) 50 1 spray by Both 0 08/16/2018 MCG/ACT nasal spray Nostrils route every 12 hours. montelukast (SINGULAIR) Take 1 tablet by 0 08/17/2018 10 MG tablet mouth daily. Potassium Gluconate 595 Take 1 tablet by 0 201008/17/2018 MG TABS mouth 2 times daily. predniSONE (DELTASONE) Take two tablets (= 10 tablet 0 09/1511/20/2017 20 MG tablet 40mg) each day for 5 (five) days traMADol (ULTRAM) 50 MG Take 1-2 tablets 20 tablet 0 201608/17/2018 tabletIndications: (50-100 mg) by mouth Bilateral back pain, every 8 hours as unspecified back needed for severe location, unspecified pain Patient has been chronicity on Tramadol without any adverse effects nor allergic reactions. documented as of this encounter ED Notes Wolf, Yue S, RN - 10/10/2017 7:29 PM CDT Lungs remain clear and diminished after neb, pt unsure if it helped. Provider aware. Yue Wolf RN - 10/10/2017 6:50 PM CDT Pt presents with cough, chills, body aches for past week. Pt alert, oriented x3. ABCs intact. Pt states she is coughing up dark green. ABCs intact Bria Bustamante PA-C - 10/10/2017 6:46 PM CDT History Chief Complaint: Cough HPI Becki Ridley is a 62 year old female with history of restrictive lung disease,and asthma who presents for evaluation of cough. One week ago she started having a mild, nonproductive cough, which is slowly progressed to productive cough of green sputum for the last 3 days. She also attests to nasal congestion and rhinorrhea. Her symptoms have increased in severity, prompting her evaluation. She states she feels cold and chilled, but denies any recorded fever. She states that she has seen a refrigeration installer in the past for her chronic lung issues, but has not seen them in several years. She states her grandson had a cold last week, but denies influenza exposure. No recent travel. She denies shortness of breath, chest pain, vomiting, nausea, diarrhea, or any other acute symptoms. Allergies: Allergies Allergen Reactions ??? Cipro [Quinolones] Itching and Difficulty breathing ??? Codeine Sulfate Other (See Comments) Blacked out ??? Vicodin [Hydrocodone-Acetaminophen] Itching and Difficulty breathing ??? Darvocet [Propoxyphene N-Apap] Itching Medications: Metformin Synthroid Flonase Buspar Zyrtec Epinephrine Albuterol Lasix Potassium gluconate Problem List: Patient Active Problem List Diagnosis Date Noted ??? Restrictive lung disease Priority: Medium ??? Morbid obesity, unspecified obesity type (H) 09/29/2016 Priority: Medium ??? History of corticosteroid therapy 09/29/2016 Priority: Medium ??? NAFLD (nonalcoholic fatty liver disease) 07/04/2016 Priority: Medium ? ? DM type 2 (diabetes mellitus, type 2); BP Goal <140/90 04/06/2012 Priority: Medium ??? Subclinical hypothyroidism 04/06/2012 Priority: Medium ??? Urticaria 04/06/2012 Priority: Medium ??? Asthma 04/06/2012 Priority: Medium Past Medical History: Past Medical History: Diagnosis Date ??? Angioedema [...] liver ??? COLONOSCOPY age 52 [place] results Family History: Family History Problem Relation Age of Onset ??? Thyroid Disease Daughter patric thyroiditis ??? Depression Daughter ??? Anxiety Disorder Daughter ??? Depression Mother ??? Dementia Mother ??? Hypertension Mother ??? CANCER Mother ??? Depression Father ??? Hypertension Father ??? Depression Maternal Grandmother ??? Dementia Maternal Aunt ??? Dementia Maternal Aunt ??? Dementia Maternal Aunt ??? Dementia Maternal Aunt Social History: Marital Status: [4] Social History Substance Use Topics ??? Smoking status: Never Smoker ??? Smokeless tobacco: Never Used ??? Alcohol use No Review of Systems Constitutional: Positive for chills. HENT: Positive for congestion. Respiratory: Positive for cough. All other systems reviewed and are negative. Physical Exam First Vitals: BP: 135/75 Pulse: 81 Heart Rate: 81 Temp: 99.7 ??F (37.6 ??C) Resp: 18 SpO2: 97 % Physical Exam General: Resting comfortably. Alert and oriented. Head: The scalp, face, and head appear normal Eyes: Conjunctivae and sclerae are normal ENT: The oropharynx is normal Uvula is in the midline Structures are symmetric. No tonsillar hypertrophy or exudate. Moist mucous membranes. Neck: No lymphadenopathy CV: Regular rate and rhythm Normal S1/S2 No pathological murmur detected Resp: Frequent cough noted with inspiration Good air entry throughout. Lungs are clear to auscultation Non-labored No rales or wheezing. No focal lung findings. GI: Abdomen is soft, non-distended No rebound tenderness MS: Normal muscular tone Skin: No rash or acute skin lesions noted Neuro: Speech is normal and fluent. Emergency Department Course Labs: Influenza: Negative Imaging: Chest XR, PA & LAT Final Result IMPRESSION: The lungs are clear. No focal pulmonary opacities. Heart and mediastinum are unremarkable. No acute cardiopulmonary abnormalities. CHRISTIANO CEBALLOS MD Interventions: Medications ipratropium - albuterol 0.5 mg/2.5 mg/3 mL (DUONEB) neb solution 3 mL (3 mLs Nebulization Given 10/10/171921) Emergency Department Course: ED Course: I reviewed the patient's medical record. The patient was seen and examined by myself. I discussed the course of care with the patient including laboratory and diagnostic studies. She understands and is agreeable to the plan. Recheck. Patient was updated on results of influenza testing and chest x-ray. She is updated on the plan going forward. I discussed with the patient the results of the above studies and procedures. She will be discharged to home with a prescription for azithromycin, albuterol vials, and prednisone. All questions were answered prior to discharge, and the patient was told to follow up per discharge instructions. Reasons for return as well as follow up were reviewed with the patient. She understands and agrees to this plan. Impression & Plan Medical Decision Making: Becki Ridley is a 62 year old female with history of restrictive lung disease,and asthma who presents for evaluation of cough. The patient presents vitally stable and afebrile. This is consistent with bronchitis. Chest x-ray was obtained and was negative. Influenza testing was also negative. Patientwas given a DuoNeb without significant relief. There is no signs at this point of serious bacterial infection such as OM, RPA, epiglottitis, SENIOR PROCESS ANALYST, strep pharyngitis, pneumonia, sinusitis, meningitis, bacteremia, serious bacterial infection. There are no gastrointestinal symptoms at this point and no signs of dehydration. Patient does have a long-standing standing history of pulmonary issues and frequently gets severe lung infections. Given this, I believe it is reasonable to treat her with prednisoneand azithromycin. She is also given a refill for albuterol neb vials. I think she is safe to be discharged home given as she is not hypoxic, no respiratory distress and is otherwise well-appearing. Sheis asked to follow-up with her primary care doctor in 2 days for recheck. She is also encouraged to follow-up with her refrigeration installer for continuing care and prevention. She is asked to return to the EDimmediately fever > 103, protracted vomiting, confusion, shortness of breath, or any other concerning symptoms. All questions were answered prior to discharge. The patient understands and agrees to this plan. Diagnosis: ICD-10-CM 1. Acute bronchitis, unspecified organism J20.9 Disposition: discharged to home Discharge Medications: Discharge Medication List as of 10/10/2017 7:47 PM START taking these medications Details albuterol (2.5 MG/3ML) 0.083% neb solution Take 1 vial (2.5 mg) by nebulization every 6 hours as needed for shortness of breath / dyspnea or wheezing, Disp-25 mL, R-0, Local Print azithromycin (ZITHROMAX Z-KITTY) 250 MG tablet Take 2 tablets now, then 1 tablet daily for 4 days., Disp-6 tablet, R-0, Local Print Prednisone 40mg x5 days Bria Bustamante 10/10/2017 [facility] EMERGENCY DEPARTMENT Bria Bustamante PA-C 10/10/172201 documented in this encounter Plan of Treatment Upcoming Encounters Date Type Specialty Care Team Description 05/19/2022 Office Visit ENT Dima Hidalgo M D [address] [address] (Sarah pino) 08/02/2022 Office Visit Neurology Yair Campos MD [address] [place] [address] (Sarah pino) documented as of this encounter Procedures Procedure Name Priority Date/Time Associated Diagnosis Comme nts XR CHEST 2 VIEWS STAT 10/10/2017 7:19 PM Resul ts for this CDT procedure are i n the results section. INFLUENZA A/B STAT 10/10/2017 6:54 PM Results for this ANTIGEN CDT procedure are i n the results section. documented in this encounter Results Chest XR, PA & LAT (10/10/2017 7:19 PM CDT) Anatomical Region Laterality Modality Chest Computed Radiography Specimen (Source) Anatomical Location Collection Method / Collectio n Time Received Time / Laterality Volume Impressions 10/10/2017 7:23 PM CDT IMPRESSION: The lungs are clear. No focal pulmonary opacities. Heart and mediastinum are unremarkable. No acu te cardiopulmonary abnormalities. CHRISTIANO CEBALLOS MD Narrative 10/10/2017 7:23 PM CDT XR CHEST 2 VW 10/10/2017 7:19 PM HISTORY: Cough. COMPARISON: April 07, 2017. Procedure Note Christiano Ceballos MD - 10/10/2017 XR CHEST 2 VW 10/10/2017 7:19 PM HISTORY: Cough. COMPARISON: April 07, 2017. IMPRESSION: The lungs are clear. No foca l pulmonary opacities. Heart and mediastinum are unremarkable. No acu te cardiopulmonary abnormalities. CHRISTIANO CEBALLOS MD Bria Bustamante PA-C IMG DIAGNOSTIC IMAGING ORDER CHAI Influenza A/B antigen (10/10/2017 6:54 PM CDT) P athologist Signature Influenza A/B Nose 10/10/2017 WAUKEE Agn Specimen 7:05 PM CDT [facility] Comment: Swab Influenza A Negative NEG^Negative 10/10/2017 7:31 PM CDT [facility] Influenza B Negative NEG^Negative 10/10/2017 7:31 PM CDT [facility] Comment: Test results must be correlated with cli nical data. If necessary, results should be confirmed by a molecular assay or viral culture. Specimen Anatomical Collection Method Collection Time Receive d Time (Source) Location / / Volume Laterality Specimen from NASAL STRUCTURE / 10/10/2017 6:54 PM 7:04 nose (specimen) Unknown CDT PM CDT Bria Bustamante PA-C LAB - MICRO GENERAL ORDERABL Performing Organization Address City/State/ZIP Code Phon e Number M [facility] [address], [place] [address] [facility] [address] [place], [place] [address] [facility] [phone] documented in this encounter Visit Diagnoses Diagnosis Acute bronchitis, unspecified organism documented in this encounter Administered Medications Inactive Administered Medications - up to 3 most recent administrations Medication Order MAR Action Action Date Dose Rate Site ipratropium - albuterol 0.5 mg/2.5 Given 10/10/2017 7:22 PM CDT 3 mLs mg/3 mL (DUONEB) neb solution 3 mL 3 mL, Nebulization, ONCE, On e 10/10/17 at 1909, For 1 dose documented in this encounter Active and Recently Administered Medications Times are shown in CDT. Scheduled Medication Order 10/08/2017 10/09/2017 10/10/2017 ipratropium - albuterol 0.5 mg/2.5 mg/3 mL (DUONEB) neb solution 3 mL (COMPLETED) 1921 (Given - Provid er: Yue Wolf RN) 3 mL, Nebulization, ONCE, e 10/10/17 at 1909, For 1 dose documented in this encounter Care Teams Production Supervisor Relationship Specialty Start Date End Date No Ref-Primary, PCP - General 11/02/16 12/14/17 Physician Tali Vilchis MD MD INTERNAL MEDICINE - 04/10/15 09/17/19 [address] [facility] ENDOCRINOLOGY, DIABETES [address] [place], [place] [id number] Anat Fuller MD Internal Medicine 04/10/1509/16 MD Renee [address] [facility] [address] [place], [place] [address] Janny Hutton, Physician Die Cutter Diamond Physician Die Cutter Diamond 06/1609/17/19 PAZachC [address] [facility] [address] [place], [place] [address] documented as of this encounter
--- OUTSIDE RECORDS SUMMARY | 2022-05-09 11:04 | XMS_ITS | Encounter Summary ---
:1955 Author Organization [place] Address [facility] [address] Care Team Providers Name Role Phone Tali Vilchis MD Unavailable Anat Fuller MD Unavailable [phone] Janny Hutton PA-C Unavailable [phone] No Ref-Primary, Physician Primary Care Provider [phone] Encounter Details Date Type Department Care Team Description 11/20/2017 Orders Only [facility] Type 2 diabetes mellitus [address] [facility] [address] without complication, 1st Floor without long-term current [place], [place] [phone] use of insulin (H) [phone] Social History Tobacco Use Types Packs/Day Years Used Date Smoking Tobacco: Never Smokeless Tobacco: Never Alcohol Use Standard Drinks/Week Comments No 0 (1 standard drink = 0.6 oz pure alcoho l) Sex Assigned at Date Recorded Female 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 long-term current use of insulin (H) documented in this encounter Results (ABNORMAL) TSH (11/20/2017 12:51 PM CDT) P athologist Signature TSH 4.22 (H) 0.40 - 4.00 11/20/[address] [facility] mU/L 1:32 PM CDT [facility] Specimen Anatomical Collection Method Collection Time Receive d Time (Source) Location / / Volume Laterality Blood specimen 11/20/2017 12:51 8 (specimen) PM CDT 12:56 PM CDT Mare Tracey PA-C LAB - BLOOD ORDERABLES Performing Organization Address City/State/ZIP Code Phon e Number [address] [address] [facility] documented in this encounter Visit Diagnoses Diagnosis Type 2 diabetes mellitus without complic ation, without long-term current use of insulin (H) documented in this encounter Care Teams Cooking Show Host Relationship Specialty Start Date End Date No Ref-Primary, PCP - General 11/02/16 12/14/17 Physician Tali Vilchis MD MD INTERNAL MEDICINE - 04/10/15 09/17/19 [address] [facility] ENDOCRINOLOGY, DIABETES [address] & METABOLISM [place], [place] [address] Anat Fuller MD Internal Medicine 04/10/1509/16 MD Renee [address] [facility] [address] [place], [place] [address] Janny Hutton, Physician Resizer Operator Physician Resizer Operator 06/1609/17/19 CARLA [address] [facility] [address] [place], [place] [address] documented as of this encounter
--- OUTSIDE RECORDS SUMMARY | 2022-05-09 11:04 | XMS_ITS | Encounter Summary ---
:1955 Author Organization [place] Address [address] [facility] [place] [address] Care Team Providers Name Role Phone Tali Vilchis MD Unavailable Anat Fuller MD Unavailable [phone] Janny Hutton PA-C Unavailable [phone] Krystin Christie APRN ASSESSMENT CONSULTANT Primary Care Provider [phone] Comfort Nichols MD Unavailable Comfort Nichols MD Unavailable Reason for Visit Diagnostic Imaging XR - Closed Specialty Diagnoses / Procedures Referred By Contact Refer red To Contact Diagnoses Cough Ramakrishna Marin MD Procedures XR Chest 2 Views [address] [facility] [place] [address] Referral ID Status Reason Start Date Expiration Date Visits Requ ested Visits Authorized [id number] Closed 08/09/2018 08/09/2019 1 1 Encounter Details Date Type Department Care Team Description 08/09/2018 Ancillary Procedure [facility] Gerardo Davila [address] [facility] [address] [place] [address] Social History Tobacco Use Types Packs/Day Years Used Date Smoking Tobacco: Never Smokeless Tobacco: Never Alcohol Use Standard Drinks/Week Comments No 0 (1 standard drink = 0.6 oz pure alcoho l) Sex Assigned at Date Recorded Female 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 documented in this encounter Results XR Chest 2 Views (08/09/2018 7:01 PM JEWEL GRINDER) Anatomical Region Laterality Modality Chest Computed Radiography Specimen (Source) Anatomical Location Collection Method / Collectio n Time Received Time / Laterality Volume Impressions 08/09/2018 7:11 PM JEWEL GRINDER IMPRESSION: No acute abnormality. Lungs are well-inflated and clear. Heart size is normal. ELIDA GAUTAM MD Narrative 08/09/2018 7:11 PM JEWEL GRINDER CHEST TWO VIEWS August 09, 2018 7:01 [...] on filedocumented in this encounter Care Teams Cattle Broker Relationship Specialty Start Date End Date Krystin Christie PCP - General Nurse Practitioner 12/15/17 09/08/19 SAURABH Engel ASSESSMENT CONSULTANT [address] [facility] [place] [id number] Comfort Nichols MD PCP - Assigned PCP 04/08/18 08/25/18 [address] [facility] [place] [address] Tali Vilchis MD INTERNAL MEDICINE - 04/10/15 ENDOCRINOLOGY, DIABETES [address] [facility]OLISM [address] [place], [place] [address] Anat Fuller MD Internal Medicine 04/10/1509/16 MD Renee [address] [facility] [address] [place], [place] [address] Janny Hutton Physician Produce Department Manager Physician Produce Department Manager 06/30/15 09/17/19 CARLA Mckeon [address] [facility] [address] [place], [place] [address] Comfort Nichols MD Assigned PCP 04/08/18 08/25/18 [address] [facility] [place] [address] documented as of this encounter
--- OUTSIDE RECORDS SUMMARY | 2022-05-09 11:04 | XMS_ITS | Encounter Summary ---
:1955 Author Organization [place] Address [address] [facility] [place] [address] Care Team Providers Name Role Phone Tali Vilchis MD Unavailable Anat Fuller MD Unavailable [phone] Janny Hutton PA-C Unavailable [phone] Krystin Christie APRN CLEAT BLANKER Primary Care Provider [phone] Comfort Nichols MD Unavailable Comfort Nichols MD Unavailable Reason for Visit Diagnostic Imaging XR - Closed Specialty Diagnoses / Procedures Referred By Contact Refer red To Contact Diagnoses Cough Deyanira Jhaveri, Procedures XR Chest 2 Views CARLA [address] [place] [address] Referral ID Status Reason Start Date Expiration Date Visits Requ ested Visits Authorized [id number] Closed 06/17/2018 06/17/2019 1 1 Encounter Details Date Type Department Care Team Description 06/17/2018 Radiant Appointment [facility] Deyanira Jhaveri [facility] Lola Yen PA-C [address] [place] [address] [address] [place] [address] [phone] Social History Tobacco Use Types Packs/Day Years Used Date Smoking Tobacco: Never Smokeless Tobacco: Never Alcohol Use Standard Drinks/Week Comments No 0 (1 standard drink = 0.6 oz pure alcoho l) Sex Assigned at Date Recorded Female 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 documented in this encounter Results XR Chest 2 Views (06/17/2018 12:47 PM DIRECTOR OF INTEGRATED MARKETING) Anatomical Region Laterality Modality Chest Computed Radiography Specimen (Source) Anatomical Location Collection Method / Collectio n Time Received Time / Laterality Volume Impressions 06/17/2018 1:04 PM DIRECTOR OF INTEGRATED MARKETING IMPRESSION: Normal. UMESH CRANE MD Narrative 06/17/2018 1:04 PM DIRECTOR OF INTEGRATED MARKETING CHEST TWO VIEWS ??06/17/2018 12:47 PM HISTORY: ??Cough. COMPARISON: 10/10/2017 Procedure Note Umesh Crane MD - 06/17/2018Form atting of this note might be different from the original. CHEST TWO VIEWS 06/17/2018 12:47 PM HISTORY: Cough. COMPARISON: 10/10/2017 IMPRESSION: Normal. UMESH CRANE MD Deyanira Jhaveri PA-C IMG DIAGNOSTIC IMAGING ORDER CHAI documented in this encounter Visit Diagnoses Diagnosis Cough documented in this encounter Care Teams Complaint Coordinator Relationship Specialty Start Date End Date Krystin Christie PCP - General Nurse Practitioner 12/15/17 09/08/19 SAURABH Engel CLEAT BLANKER [address] [facility] [place] [address] Comfort Nichols MD PCP - Assigned PCP 04/08/18 08/25/[address] [facility] [place] [address] Tali Vilchis MD INTERNAL MEDICINE - 04/10/15 ENDOCRINOLOGY, DIABETES [address] [facility] MET[facility]OLISM [address] [place], [place] [phone] Anat Fuller MD Internal Medicine 04/10/1509/16 MD Renee [address] [facility] [address] [place], [place] [address] Janny Hutton Physician Grader Operator Physician Grader Operator 06/30/15 09/17/19 CARLA Mckeon [address] [facility] [address] [place], [place] [address] Comfort Nichols MD Assigned PCP 04/08/18 08/25/[address] [facility] [place] [address] documented as of this encounter
--- OUTSIDE RECORDS SUMMARY | 2022-05-09 11:04 | XMS_ITS | Encounter Summary ---
:1955 Author Organization [place] Address [facility] [place] [address] Care Team Providers Name Role Phone Tali Vilchis MD Unavailable Anat Fuller MD Unavailable [phone] Janny Hutton PA-C Unavailable [phone] No Ref-Primary, Physician Primary Care Provider [phone] Reason for Referral Consultation - Closed Specialty Diagnoses / Procedures Referred By Contact Refer red To Contact Diagnoses Type 2 diabetes mellitus without complication, without long-term current use of insulin (H) Mare Tracey PA-C 9 [place], [place] [address] Referral ID Status Reason Start Date Expiration Date Visits Requ ested Visits Authorized [id number] Closed 11/21/2017 11/21/2018 1 1 Scheduling Instructions Patient to be scheduled at the [facility]: [facility] : TO ESTABLISH PRIMARY CARE RELATIONSHIP Reason for Visit Reason Comments RECHECK DIABETES TYPE 2 Encounter Details Date Type Department Care Team Description 11/20/2017 Office Visit [facility] Endocrinolo Mare Garcia, Type 2 diabetes [facility] CARLA mellitus without [address] [place] [address] complication, without [place], [place] long-term current use [id number] of insulin (H) [phone] (Primary Dx) (Work) Social History Tobacco Use Types Packs/Day Years Used Date Smoking Tobacco: Never Smokeless Tobacco: Never Alcohol Use Standard Drinks/Week Comments No 0 (1 standard drink = 0.6 oz pure alcoho l) Sex Assigned at Date Recorded Female 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 I am glad that you want to resume care for your diabetes! I am glad that you are working on diet and nutrition. Please try to add 4th Metformin when able. Please take thyroid medication each and every day. It would be great if you could get back to gym it would be great! I would like you to resume your GLP-1 - any that is covered by your insurer - and see how your bloodsugar, Goes, we will likely increase the dose in 6 weeks and then if needed consider starting an insulin meal. I would like you to be on DASH, Mediterranean, or plant based diet. Please check BG twice daily at least 3 days weekly. I look forward to seeing you in 6-8 weeks to consider increasing Trulicity (or similar) My best wishes, Mare Tracey PA-C, 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 Since 2010, Becki has been treated with Metformin and Byetta, then Victoza, and then Invokana. She has visited with the immigration consultant in the past and was evaluated by Dr. Vilchis of endocrinology since our last visit. The patient reports that her diabetes has been out of control with levels in the 240s. In the past, the patient has not been concerned about her HbA1c levels as she has been in denial about her condition and unwilling to follow regimen. Recently, the patient has become more concerned about controlling this as she wants to be an active grandmother for her grandchildren. She reports that this is still true today. She has been working on diet, but saw a hvac service manager and was confused as told low fat diet with lots of protein. She has been trying to have more fruits vegetables and whole grains,but understood maybe no fruit and avoid most vegetables. The patient does not currently have a primary care provider. [facility] too high at that time. She reports that she is no longer taking Victoza. Of note, the patient is currently covered under Medicare and supplemental [facility] insurance. In regard to her diabetes medication regimen, she is taking 3 tablets Metformin in the AM, occasionally taking 4 tablets. She has reduced her dose to 3 tablets as she typically experiences increased jitteriness and abdominal symptoms with 4 tablets in one sitting. Sometimes, she takes the 4th tablet later in the evening if she remembers. She recently met with a hvac service manager and has been working on improving her diet. The patient was slightly discouraged after meeting with the hvac service manager as they recommended a low fat diet which has not worked for the patient in the past in relation to her diabetes. She has been incorporating increased amounts of protein into her frequent smoothie intake. She has been chasing her grandchildren aroundher home for exercise. In the past, she was working out about 6 days a week at her local health club. She reports an increased craving of sugar recently. Today, the patient's HbA1c is at 10.9%. She reports that she was recently taking steroids for a respiratory infection. She has completed her course of Prednisone and no longer taking. Health Care Maintenance/Other: 1. Levothyroxine- taking when remembering to take Blood Glucose Monitoring: Patient did not bring glucometer with today, therefore I was unable to review recent data. Hyperglycemia: When checks, fasting 240s per patient report Diabetes monitoring and complications: CAD: None known Last eye exam results: due at this time Last dental exam: Unknown Microalbuminuria: 9.93 (WNL) on 08/09/2016 HTN: No On Statin: No On Aspirin: No Depression: Yes Erectile dysfunction: N/A Review of Systems: Pertinent items are noted in HPI. All other systems are negative. Active Medications: ??? albuterol (2.5 MG/3ML) 0.083% neb solution, Take 1 vial (2.5 mg) by nebulization every 6 hours as needed for shortness of breath / dyspnea or wheezing, Disp: 25 mL, Rfl: 0 ??? busPIRone (BUSPAR) 5 MG tablet, Take 5 mg by mouth daily , Disp: , Rfl: ??? cetirizine (ZYRTEC) 10 MG tablet, Take 1 tablet by mouth daily as needed. For hives, Disp: 90 tablet, Rfl: 3 ??? EPINEPHrine (EPIPEN 2-KITTY) 0.3 MG/0.3ML injection, Inject 0.3 mg into the muscle once as needed., Disp: , Rfl: ??? fluticasone (FLONASE) 50 MCG/ACT spray, Marlette 1-2 sprays into both nostrils daily, Disp: 1 Bottle, Rfl: 11 ??? fluticasone-salmeterol (ADVAIR DISKUS) 500-50 MCG/DOSE diskus inhaler, Inhale 1 puff into the lungs every 12 hours., Disp: , Rfl: ??? furosemide (LASIX) 20 MG tablet, Take 1 tablet by mouth 2 times daily., Disp: , Rfl: ??? ibuprofen (ADVIL,MOTRIN) 200 MG tablet, Take 3 tablets (600 mg) by mouth every 8 hours as neededfor mild pain, Disp: 20 tablet, Rfl: 0 ??? levocetirizine (XYZAL) 5 MG tablet, Take 5 mg by mouth, Disp: , Rfl: ??? levothyroxine (SYNTHROID/LEVOTHROID) 50 MCG tablet, Take 1 tablet (50 mcg) by mouth daily, Disp:90 tablet, Rfl: 1 ??? liraglutide (VICTOZA PEN) 18 MG/3ML soln, Inject 0.6 mg Subcutaneous daily, Disp: 9 mL, Rfl: 3 ??? metFORMIN (GLUCOPHAGE-XR) 500 MG 24 hr tablet, TAKE 4 TABLETS(2000 MG) BY MOUTH DAILY WITH DINNER, Disp: 360 tablet, Rfl: 2 ??? mometasone (NASONEX) 50 MCG/ACT nasal spray, 1 spray by Both Nostrils route every 12 hours., Disp: , Rfl: ??? montelukast (SINGULAIR) 10 MG tablet, Take 1 tablet by mouth daily., Disp: , Rfl: ??? Potassium Gluconate 595 MG TABS, Take 1 tablet by mouth 2 times daily., Disp: , Rfl: ??? predniSONE (DELTASONE) 20 MG tablet, Take two tablets (= 40mg) each day for 5 (five) days, Disp:10 tablet, Rfl: 0 ??? traMADol (ULTRAM) 50 MG tablet, Take 1-2 tablets (50-100 mg) by mouth every 8 hours as needed for severe pain Patient has been on Tramadol without any adverse effects nor allergic reactions., Disp:20 tablet, Rfl: 0 Allergies: Cipro [quinolones] Codeine sulfate Vicodin [hydrocodone-acetaminophen] Darvocet [propoxyphene n-apap] Past Medical History: Angioedema Arthritis Asthma Blood transfusion Depression Type 2 diabetes mellitus Hypertension Lower extremity edema Nonalcoholic steatohepatitis Restless leg syndrome Restrictive lung disease Sleep apnea Subclinical hypothyroidism Urticaria Morbid obesity H/o corticosteroid therapy Past Surgical History: Liver biopsy Family History: Carmen thyroiditis Depression Anxiety disorder Dementia Hypertension Cancer unspecified Social History: The patient is single, a nonsmoker, and does not consume alcohol. Physical Exam: BP 121/81 Pulse 88 Wt 89.9 kg (198 lb 1.6 oz) BMI 35.09 kg/m2 Wt Readings from Last 10 Encounters: 04/07/17 85.3 kg (188 lb) 04/07/17 85.3 kg (188 lb) 03/29/17 85.8 kg (189 lb 1.6 oz) 11/09/16 87.5 kg (193 lb) 11/02/16 90 kg (198 lb 6.6 oz) 09/28/16 88 kg (193 lb 14.4 oz) 08/29/16 88.4 kg (194 lb 14.4 oz) 08/09/16 89.8 kg (198 lb) 07/01/16 86.6 kg (191 lb) 12/21/15 90.4 kg (199 lb 4.8 oz) General: Pleasant, well nourished and hydrated female in NAD. Psych: Mood is good, affect is appropriate. Thought form and content are fluid and coherent. HEENT: Eyes and sclera are clear. Extraocular movements are grossly intact without proptosis. Nares are patent, mucous membranes moist. Neck: No masses or JVD are noted. Resp: Easy and unlabored breathing. Neuro: Alert and oriented, communicating clearly. Ext: no swelling or edema Data: ENDO DIABETES Latest Ref Rng & Units 03/30/2017 04/07/2017 HGB 11.7 - 15.7 g/dL 13.6 13.7 GLUCOSE 70 - 99 mg/dL 374 (H) 173 (H) CREATININE 0.52 - 1.04 mg/dL 0.58 0.57 POTASSIUM 3.4 - 5.3 mmol/L 3.7 4.1 ALT 0 - 50 U/L 75 (H) AST 0 - 45 U/L 41 WBC 4.0 - 11.0 10e9/L 7.9 10.1 RBC 3.8 - 5.2 10e12/L 4.69 4.86 HGB 11.7 - 15.7 g/dL 13.6 13.7 HCT 35.0 - 47.0 % 38.6 40.2 MCV 78 - 100 fl 82 83 MCH 26.5 - 33.0 pg 29.0 28.2 MCHC 31.5 - 36.5 g/dL 35.2 34.1 RDW 10.0 - 15.0 % 13.6 13.6 PLT 150 - 450 10e9/L 219 237 ENDO DIABETES Latest Ref Rng & Units 09/28/2016 HEMOGLOBIN A1C 4.3 - 6.0 % 9.7 (H) ENDO DIABETES Latest Ref Rng & Units 08/09/2016 HEMOGLOBIN A1C, POC 4.3 - 6 % 10.6 (A) ENDO DIABETES Latest Ref Rng & Units 08/09/2016 ALBUMIN URINE MG/L mg/L 10 ALBUMIN URINE MG/G CR 0 - 25 mg/g Cr 9.93 TSH Date Value Ref Range Status 08/09/2016 2.97 0.40 - 4.00 mU/L Final Assessment and Plan: Becki Mackey shelby is a 62 year old female with a history of poorly controlled type 2 diabetes mellitus,subclinical hypothyroidism, and hypertension. She appears to be motivated improve marginally controlled diabetes as well as obesity. 1. Type 2 diabetes mellitus without complication, without long-term current use of insulin (H) Currently managed taking 3 tablets Metformin daily as 4 tablets makes her increasingly jittery with increased abdominal symptoms. I recommended that the patient try to incorporate another Metformin tablet later on in the day. I offered starting the patient on insulin today for further management as she has been increasingly craving sugar. She declined at this time as she would like to improve her management prior to incorporating in more medication. Would like to resume a GLP-1 that is covered by the patient's insurance. We will likely increase the patient's dosages in six weeks if needed. I would like for her to follow up about every 6 weeks until her glucoses are at a range of 100-200. May need insulin in the upcoming months. She deferred immigration consultant consultation at this time. I encouraged increasing her emphasis on exercise to help get sugar into the proper areas of the body. We discussed reducing solely carbohydratemeals to avoid increased shakiness. We discussed a Mediterranean, DASH, and vegetarian/vegan diet over a keto diet as this diet may increase patient's cholesterol levels. Patient should avoid this as she has a history of diabetes. Healthy oils and decreased meat consumption has been encouraged. She is due for urine microalbumin and foot exam and need to perform at RTC. 2. Hypothyroidism: Patient was encouraged to continue taking her levothyroxine daily. I believe that she will experience less fatigue with this intervention, hopefully allowing her to better manage her diabetes with increased enthusiasm. Will check levels in About 8 weeks. - dulaglutide (TRULICITY) 0.75 MG/0.5ML pen; Inject 0.75 mg Subcutaneous every 7 days Dispense: 3 mL; Refill: 1 3. Recurrent Respiratory Infection and Primary Care: Patient reports is interested in establishing car with primary care provider which I do strongly recommend. - FAMILY PRACTICE REFERRAL/PCC Follow-up: Return in about 6 weeks (around 01/01/2018). >50% of 30 minute visit spent in face to face counseling, education and coordination of care related to options for better glycemic control as well as preventing, detecting, and treating hypoglycemia. It is my privilege to be involved in the care of the above patient. Mare Tracey PA-C, [facility] Diabetes, Endocrinology, and Metabolism [phone] Appointments/Nurse [phone] pager [phone] nurse line Scribe Disclosure: I, Love Huertas, am serving as a scribe to document services personally performed by Mare Tracey PA-C at this visit, based upon the provider's statements to me. All documentation has been reviewed by the aforementioned provider prior to being entered into the official medical record. Portions of this medical record were completed by a scribe. UPON MY REVIEW AND AUTHENTICATION BY ELECTRONIC SIGNATURE, this confirms (a) I performed the applicable clinical services, and (b) the recordis accurate. documented in this encounter Nursing Notes Rosanne Ortiz CMA - 11/20/2017 11:00 AM CDT . Rosanne Ortiz CMA - 11/20/2017 11:00 AM CDT Performed capillary puncture for Hemoglobin A1C Test. Patient tolerated well. documented in this encounter Plan of Treatment Upcoming Encounters Date Type Specialty Care Team Description 05/19/2022 Office Visit ENT Dima Hidalgo M D [address] [place] [id number] (Wo rk) 08/02/2022 Office Visit Neurology Yair Campos MD [address] [facility] [place], [place] [address] (Wo rk) Scheduled Referrals Name Type Priority Associated Diagnoses Order [facility] Referral Routine Type 2 diabetes mellitus Ordered: 11/21/2017 REFERRAL without complication, without long-term current use of insulin (H) documented as of this encounter Procedures Procedure Name Priority Date/Time Associated Diagnosis Comme nts HEMOGLOBIN A1C POCT Routine 11/20/2017 Type 2 diabetes Resul ts for this mellitus without procedure a re in the complication, without result s section. long-term current use of insulin (H) documented in this encounter Results (ABNORMAL) Hemoglobin A1c POCT (11/20/2017) [facility] Hemoglobin A1C 10.9 (A) 4.3 - 6 % POCT Specimen (Source) Anatomical Location Collection Method / Collectio n Time Received Time / Laterality Volume Whole blood 11/20/2017 specimen (specimen) Mare Tracey PA-C LAB - ENTER/EDIT POCT documented in this encounter Visit Diagnoses Diagnosis Type 2 diabetes mellitus without complic ation, without long-term current use of insulin (H) - Primary documented in this encounter Care Teams Central Office Maintainer Relationship Specialty Start Date End Date No Ref-Primary, PCP - General 11/02/16 12/14/17 Physician Tali Vilchis MD MD INTERNAL MEDICINE - 04/10/15 09/17/[address] [place] [address] ENDOCRINOLOGY, DIABETES [address] & [address]ABOLISM [place], [place] [address] Anat Fuller MD Internal Medicine 04/10/1509/16 MD Renee [address] [facility] [address] [place], [place] [address] Janny Hutton, Physician Rn Telephone Triage Physician Rn Telephone Triage 06/1609/17/[address] [place] [address] [address] [place] [address] documented as of this encounter
--- OUTSIDE RECORDS SUMMARY | 2022-05-09 11:04 | XMS_ITS | Encounter Summary ---
:1955 Author Organization [place] Address [address] [place] [address] Care Team Providers Name Role Phone Tali Vilchis MD Unavailable Anat Fuller MD Unavailable [phone] Janny Hutton PA-C Unavailable [phone] Krystin Christie APRN, CNP Primary Care Provider [phone] Reason for Visit Diagnostic Imaging XR - Closed Specialty Diagnoses / Procedures Referred By Contact Refer red To Contact Diagnoses Acute right-sided low back pain without sciatica Comfort Nichols MD Procedures XR Lumbar Spine 2/[address] [place] [address] R[place]ESH B[place]TISTE [address] Referral ID Status Reason Start Date Expiration Date Visits Requ ested Visits Authorized [id number] Closed 12/15/2017 12/15/2018 1 1 Encounter Details Date Type Department Care Team Description 12/15/2017 Radiant Appointment [facility] Comfort Nichols Acute right-sided Clinic Lola HARDEN low back pain [address] [place] [address] [place] [address] [address] R[place]ESH DAVILA [address] RUPESH Davila [phone] (Work) [phone] Social History Tobacco Use Types Packs/Day Years Used Date Smoking Tobacco: Never Smokeless Tobacco: Never Alcohol Use Standard Drinks/Week Comments No 0 (1 standard drink = 0.6 oz pure alcoho l) Sex Assigned at Date Recorded Female 08/17/2018 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 documented in this encounter Results XR Lumbar Spine 2/3 [...] in this encounter Visit Diagnoses Diagnosis Acute right-sided low back pain without sciatica documented in this encounter Care Teams Certified Master Safecracker Relationship Specialty Start Date End Date Krystin Christie PCP - General Nurse Practitioner 12/15/17 09/08/19 SAURABH Engel RAMP AND CARGO SUPERVISOR [address] [facility] [place] BAPTISTE [id number] Tali Vilchis MD INTERNAL MEDICINE - 04/10/15 ENDOCRINOLOGY, DIABETES [address] [facility] [address] [place], [place] [id number] Anat Fuller MD Internal Medicine 04/10/1509/16 MD Renee [address] [facility] [address] [place] [address] Janny Hutton Physician Retail Pos Specialist Physician Retail Pos Specialist 06/30/15 09/17/19 CARLA Mckeon [address] [facility] [address] [place], [place] [id number] documented as of this encounter
--- OUTSIDE RECORDS SUMMARY | 2022-05-09 11:04 | XMS_ITS | Encounter Summary ---
:1955 Author Organization [place] Address [address] [facility] [place] [address] Care Team Providers Name Role Phone Tali Vilchis MD Unavailable Anat Fuller MD Unavailable [phone] Janny Hutton PA-C Unavailable [phone] Krystin Christie APRN, CNP Primary Care Provider [phone] Reason for Visit Diagnostic Imaging XR - Closed Specialty Diagnoses / Procedures Referred By Contact Refer red To Contact Diagnoses Neck sprain, initial encounter Comfort Nichols MD Procedures XR Cervical Spine 2/[address] [place] [address] R[place]TIST[place] [address] Referral ID Status Reason Start Date Expiration Date Visits Requ ested Visits Authorized [id number] Closed 12/15/2017 12/15/2018 1 1 Encounter Details Date Type Department Care Team Description 12/15/2017 Radiant Appointment [facility] Comfort Nichols, Neck sprain, Clinic Lola HARDEN initial encounter [address] [place] [address] [place] [address] [address] RUPESH DAVILA [address] RUPESH Davila [phone] (Work) [phone] Social History Tobacco Use Types Packs/Day Years Used Date Smoking Tobacco: Never Smokeless Tobacco: Never Alcohol Use Standard Drinks/Week Comments No 0 (1 standard drink = 0.6 oz pure alcoho l) Sex Assigned at Date Recorded Female 08/17/2018 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 documented in this encounter Results XR Cervical Spine 2/3 Views (12/15/2017 3:48 [...] Visit Diagnoses Diagnosis Neck sprain, initial encounter documented in this encounter Care Teams Policy Intern Relationship Specialty Start Date End Date Krystin Christie PCP - General Nurse Practitioner 12/15/17 09/08/19 SAURABH Engel BAN[place] MILL OPERATOR [address] [facility] [place] [address] Tali Vilchis MD INTERNAL MEDICINE - 04/10/15 ENDOCRINOLOGY, DIABETES [address] [facility] [address] [place] [address] Anat Fuller MD Internal Medicine 04/10/1509/16 MD Renee [facility] [place], [place] [phone] Janny Hutton Physician Reworker Physician Reworker 06/30/15 09/17/19 CARLA Mckeon [address] [facility] [address] [place] [address] documented as of this encounter
--- OUTSIDE RECORDS SUMMARY | 2022-05-09 11:04 | XMS_ITS | Encounter Summary ---
:1955 Author Organization [place] Address [address] [facility] [place] [address] Care Team Providers Name Role Phone Tali Vilchis MD Unavailable Anat Fuller MD Unavailable [phone] Janny Hutton PA-C Unavailable [phone] Krystin Christie APRN RECORDS ANALYSIS MANAGER Primary Care Provider [phone] Comfort Nichols MD Unavailable Comfort Nichols MD Unavailable Reason for Visit Reason Comments ER F/U UF follow up Encounter Details Date Type Department Care Team Description 08/16/[address] [facility] Krystin Christie Chest pres sure (Primary Dx); Clinic Lola Engel APRN Type 2 diabetes mellitus wit hout complication, without long- term current use of insulin (H); [address] [facility] Morbid obesity, unspecified obesity type (H) [address] [facility] [address] [facility] [place] [id number] [place] [address] Social History Tobacco Use Types Packs/Day Years Used Date Smoking Tobacco: Never Smokeless Tobacco: Never Alcohol Use Standard Drinks/Week Comments No 0 (1 standard drink = 0.6 oz pure alcoho l) Sex Assigned at Date Recorded Female 08/17/2018 10:39 PM PAIN MEDICINE PHYSICIAN documented as of this encounter Last Filed Vital Signs Vital Sign Reading Time Taken Comments Blood Pressure 104/58 08/16/2018 3:37 PM PAIN MEDICINE PHYSICIAN Pulse 88 08/16/2018 3:37 PM PAIN MEDICINE PHYSICIAN Temperature 36.6 ??C (97.8 ??F) 08/16/2018 3:37 PM PAIN MEDICINE PHYSICIAN Respiratory Rate 18 08/16/2018 3:37 PM PAIN MEDICINE PHYSICIAN Oxygen Saturation 95% 08/16/2018 3:37 PM PAIN MEDICINE PHYSICIAN Inhaled Oxygen Concentration - - Weight 83.8 kg (184 lb 12.8 oz) 08/16/2018 3:37 PM PAIN MEDICINE PHYSICIAN Height 157.5 cm (5' 2) 08/16/2018 3:37 PM PAIN MEDICINE PHYSICIAN Body Mass Index 33.8 08/16/2018 3:37 PM PAIN MEDICINE PHYSICIAN documented in this encounter Patient Instructions Patient InstructionsMoliKrystin rooney APRN CNP - 08/16/2018 3:20 PM PAIN MEDICINE PHYSICIAN -Please start prednisone taper tonight -Strictly low carb -supervisor mapping victoza if affordable. -See you tomorrow at 945 MEDICINE PHYSICIAN documented in this encounter Progress Notes Krystin Christie APRN CNP - 08/16/2018 3:20 PM CST SUBJECTIVE: Becki Ridley is a 63 year old female who presents to clinic today for the following health issues: ED/UC Followup: Facility: [facility] Date of visit: 08/09/18 Reason for visit: cough, chest tightness Current Status: Patient states cough is slightly better but chest tightness is worse - very tight bilateral under breasts - feels like a band is wrapped around me. Fatigue with any exertion or talking..: States she cannot afford inhalers - got samples from her mixing machine tender. Breo Ellipta Blood sugar last week was 425. Was 332 yesterday. Today it was in the 200s. Coughing has gotten better but her lung tightness is worse. Energy level is still poor. Has been using duonebs at home, which have been helping. ROS: const/heent/resp/cv otherwise negative OBJECTIVE: BP 104/58 (BP Location: Right arm, Cuff Size: Adult Large) Pulse 88 Temp 97.8 ??F (36.6 ??C) (Tympanic) Resp 18 Ht 1.575 m (5' 2) Wt 83.8 kg (184 lb 12.8 oz) SpO2 95% BMI 33.80 kg/m?? CONSTITUTIONAL: Alert, well-nourished, well-groomed, NAD RESP: Lungs CTA. No wheeze, rhonchi, rales. CV: HRRR S1 S2 No MRG. No peripheral edema HEENT: Eyes: Conjunctiva pink and moist. Ears: Ear canals unremarkable. TMs pearly garcia bilaterally.Bony landmarks and light reflexes intact. No erythema. Nose: Turbinates pink and moist. Throat: OP pink and moist. No tonsillar enlargement or exudates. No postnasal drip. Neck: No lymphadenopathy or masses. Thyroid smooth, non-tender, and non-enlarged. PSYCH: Bright affect. Appropriate mentation and speech. ASSESSMENT/PLAN: (R07.89) Chest pressure (primary encounter diagnosis) Comment: As above. Patient with a history of unclear respiratory diagnosis. Previous PFTs show both restrictive and obstructive defect. States she was previously being treated for asthma with breo ellipta (advair was too expensive). Over the last several years she has been inconsistent with this, and has had more frequent bouts of bronchitis, etc. However, she hasn't followed up consistently enough to look into her underlying lung disease and get quality PFTs when she is well. Today she presents after an visit for asthma exacerbation. At that visit she had a normal CXR. Was given tessalon and 40mg Prednisone x 5 days. States her sx improved during those 5 days, but have worsened again. She has some cough and chest pressure but no chest pain. Her EKG is normal despite having chest pressure currently. No tachycardiac to suggest PE, and no DVT sx. Plan: EKG 12-lead, tracing only, ipratropium - albuterol 0.5 mg/2.5 mg/3 mL (DUONEB) neb solution 3 mL, INHALATION/NEBULIZER TREATMENT, INITIAL, predniSONE (DELTASONE) 20 MG tablet -Start high dose prednisone taper -Continue tessalon -Re-start Breo. Will discuss future cost considerations with MTM -F/U tomorrow (About 14 hours from now) If worsening could consider chest CT to rule out PT. Discussed reasons to seek care urgently. (E11.9) Type 2 diabetes mellitus without complication, without long-term current use of insulin (H) Comment: Poor control. No A1c available bu sugars have been hovering around 300, especially since being on steroids. States she has re-started low carb diet and metformin in the last week. Plan: liraglutide (VICTOZA PEN) 18 MG/3ML solution, Lipid panel reflex to direct LDL Fasting, Albumin Random Urine Quantitative with Creat Ratio, Comprehensive metabolic panel, Hemoglobin A1c, TSH with free T4 reflex -Victoza ordered. She is to check tonight to see how much it costs then RTC -Continue metformin -Monitor sugars QID -F/U tomorrow morning. Discussed reasons to seek care urgently. (E66.01) Morbid obesity, unspecified obesity type (H) Plan: liraglutide (VICTOZA PEN) 18 MG/3ML solution 50 minutes spent with patient, over 1/2 in counseling and coordination of care regarding breathing ISAURO Moreno-SONAM. MEDICINE PHYSICIAN documented in this encounter Nursing Notes Lauren Linares MA - 08/16/2018 3:20 PM CST The following nebulizer treatment was given: MEDICATION: Duoneb DEDENTER: Dyn LOT #: [id number] EXPIRATION DATE: 01/14/20 [facility] # [id number] Nebulizer Start Time: 4:13pm Nebulizer Stop Time: 4:19pm See Vital Signs Flowsheet Lauren Linares CMA MEDICINE PHYSICIAN documented in this encounter Plan of Treatment Upcoming Encounters Date Type Specialty Care Team Description 05/19/2022 Office Visit [facility] M [facility] [address] [facility] [place] [place] [address] (Sarah pino) 08/02/2022 Office Visit Neurology Yair Campos MD [address] [facility] [place] [address] (Sarah pino) documented as of this encounter Procedures Procedure Name Priority Date/Time Associated Comments Diagnosis TSH WITH FREE T4 Routine 08/16/2018 5:31 PM Type 2 diabetes Re sults for this REFLEX PAIN MEDICINE PHYSICIAN mellitus without procedure a re in complication, the results without long-term section. current use of insulin (H) ALBUMIN RANDOM URINE Routine 08/16/2018 5:31 PM Type 2 diabete s Results for this QUANTITATIVE PAIN MEDICINE PHYSICIAN mellitus without procedure a re in complication, the results without long-term section. current use of insulin (H) LIPID REFLEX TO DIRECT Routine 08/16/2018 5:31 PM Type 2 diabe johnathan Results for this LDL PANEL PAIN MEDICINE PHYSICIAN mellitus without procedure a re in complication, the results without long-term section. current use of insulin (H) HEMOGLOBIN A1C Routine 08/16/2018 5:31 PM Type 2 diabetes Resu lts for this PAIN MEDICINE PHYSICIAN mellitus without procedure a re in complication, the results without long-term section. current use of insulin (H) COMPREHENSIVE Routine 08/16/2018 5:31 PM Type 2 diabetes Resul ts for this METABOLIC PANEL PAIN MEDICINE PHYSICIAN mellitus without procedur e are in complication, the results without long-term section. current use of insulin (H) EKG 12-LEAD, TRACING Routine 08/16/2018 Chest pressure Resul ts for this ONLY procedure are i n the results section. documented in this encounter Results TSH with free T4 reflex (08/16/2018 5:31 PM PAIN MEDICINE PHYSICIAN) P athologist Signature TSH 3.91 0.40 - 4.00 08/17/2018 [facility] mU/L 1:34 PM [facility] Specimen Anatomical Collection Method Collection Time Receive d Time (Source) Location / / Volume Laterality Blood specimen 08/16/2018 5:31 PM 019 5:32 (specimen) PAIN MEDICINE PHYSICIAN PM PAIN MEDICINE PHYSICIAN Krystin Christie OBSTETRICIAN GYNECOLOGIST RECORDS ANALYSIS MANAGER LAB - BLOOD ORDERABLES Performing Organization Address City/State/ZIP Code Phon e Number [facility] [address] [place] [address] (ABNORMAL) Hemoglobin A1c (08/16/2018 5:31 PM PAIN MEDICINE PHYSICIAN) Analysis Performed At Patho logist Time Signature Hemoglobin A1C 11.6 (H) 0 - 5.6 % 08/16/2018 [place] 6:04 PM [facility] Comment: Normal <5.7% Prediabetes 5.7-6.4% ??Diab etes 6.5% or higher - adopted from ADA consensus guidelines. Results confirmed by repeat test Specimen Anatomical Collection Method Collection Time Receive d Time (Source) Location / / Volume Laterality Blood specimen 08/16/2018 5:31 PM 019 5:32 (specimen) PAIN MEDICINE PHYSICIAN PM PAIN MEDICINE PHYSICIAN Krystin Christie OBSTETRICIAN GYNECOLOGIST RECORDS ANALYSIS MANAGER LAB - BLOOD ORDERABLES Performing Organization Address City/State/ZIP Code Phon e Number [facility] [address] [place] [address] (ABNORMAL) Comprehensive metabolic panel (08/16/2018 5:31 PM PAIN MEDICINE PHYSICIAN) Analysis Performed At Patho logist Time Signature Sodium 135 133 - 144 08/17/2018 [place] mmol/L 1:15 PM [facility] Potassium 3.8 3.4 - 5.3 08/17/2018 [place] mmol/L 1:15 PM [facility] Chloride 104 94 - 109 08/17/2018 [place] mmol/L 1:15 PM [facility] Carbon Dioxide 23 20 - 32 08/17/2018 [place] mmol/L 1:24 PM [facility] Anion Gap 8 3 - 14 08/17/2018 [place] mmol/L 1:24 PM [facility] Glucose 213 (H) 70 - 99 08/17/2018 [place] mg/dL 1:24 PM [facility] Comment: Fasting specimen Urea Nitrogen 18 7 - 30 mg/dL 08/17/2018 1:24 PM [facility] Creatinine 0.48 (L) 0.52 - 1.04 08/17/2018 1:24 PM [facility] mg/dL [facility] GFR Estimate >90 >60 08/17/2018 1:24 PM [facility] mL/min/{1.73_m2} [facility] Comment: Non GFR Calc Starting 07/03/2018, serum creatinine ba sed estimated GFR (eGFR) will be calculated using the Chronic Kidney Dise ase Epidemiology Collaboration (CKD-EPI) equation. GFR Estimate If >90 >60 mL/min/{1.73_m2} 08/17/2018 1: 24 PM [facility] Black [facility] Comment: GFR Calc Starting 07/03/2018, serum creatinine ba sed estimated GFR (eGFR) will be calculated using the Chronic Kidney Dise ase Epidemiology Collaboration (CKD-EPI) equation. Calcium 8.7 8.5 - 10.1 08/17/2018 1:24 PM [facility] mg/dL [facility] Bilirubin Total 0.4 0.2 - 1.3 08/17/2018 1:26 PM [facility] mg/dL [facility] Albumin 3.4 3.4 - 5.0 g/dL 08/17/2018 1:26 PM [facility] Protein Total 7.2 6.8 - 8.8 g/dL 08/17/2018 1:26 PM [facility] Alkaline Phosphatase 66 40 - 150 U/L 08/17/2018 1:26 PM [facility] ALT 278 (H) 0 - 50 U/L 08/17/2018 1:26 PM [facility] AST 143 (H) 0 - 45 U/L 08/17/2018 1:26 PM [facility] Specimen Anatomical Collection Method Collection Time Receive d Time (Source) Location / / Volume Laterality Blood specimen 08/16/2018 5:31 PM 019 5:32 (specimen) PAIN MEDICINE PHYSICIAN PM PAIN MEDICINE PHYSICIAN Krystin Christie OBSTETRICIAN GYNECOLOGIST RECORDS ANALYSIS MANAGER LAB - BLOOD ORDERABLES Performing Organization Address City/State/ZIP Code Phon e Number [facility] [address] [place] [id number] Albumin Random Urine Quantitative with Creat Ratio (08/16/2018 5:31 PM PAIN MEDICINE PHYSICIAN) P athologist Signature Creatinine 102 mg/dL 08/17/2018 [place] Urine 3:57 PM [facility] Albumin Urine 6 mg/L 08/17/2018 [place] mg/L 4:05 PM [facility] Albumin Urine 6.34 0 - 25 08/17/2018 [place] mg/g Cr mg/g Cr 4:05 PM [facility] Specimen Anatomical Collection Method Collection Time Receive d Time (Source) Location / / Volume Laterality Urine specimen 08/16/2018 5:31 PM 019 5:32 (specimen) PAIN MEDICINE PHYSICIAN PM PAIN MEDICINE PHYSICIAN Krystin Christie APRN RECORDS ANALYSIS MANAGER LAB - URINE ORDERABLES Performing Organization Address City/State/ZIP Code Phon e Number [facility] [address] [place] [address] (ABNORMAL) Lipid panel reflex to direct LDL Fasting (08/16/2018 5:31 PM PAIN MEDICINE PHYSICIAN) athologist Signature Cholesterol 207 (H) <200 mg/dL 08/17/2018 [facility] 1:26 PM [facility] Comment: Desirable: <200 mg/dl Triglycerides 130 <150 mg/dL 08/17/2018 1:30 PM [facility] Comment: Fasting specimen HDL Cholesterol 46 (L) >49 mg/dL 08/17/2018 1:27 PM [facility] LDL Cholesterol 135 (H) <100 mg/dL 08/17/2018 1:30 PM [facility] Comment: Above desirable: ??100-129 mg/dl Borderline High: ??130-159 mg/dL High: ? 160-189 mg/dL Very high: ? >189 mg/dl Non HDL Cholesterol 161 (H) <130 mg/dL 08/17/2018 1:27 PM [facility] Comment: Above Desirable: ??130-159 mg/dl Borderline high: ??160-189 mg/dl High: ? 190-219 mg/dl Very high: ? >219 mg/dl Specimen Anatomical Collection Method Collection Time Receive d Time (Source) Location / / Volume Laterality Blood specimen 08/16/2018 5:31 PM 019 5:32 (specimen) PAIN MEDICINE PHYSICIAN PM PAIN MEDICINE PHYSICIAN Krystin Christie APRN, CNP LAB - BLOOD ORDERABLES Performing Organization Address City/[facility]/ZIP Code Phon e Number [facility] [address] [place] [address] EKG 12-lead, tracing only (08/16/2018) Narrative This result has an attachment that is no t available. Krystin Christie APRN RECORDS ANALYSIS MANAGER ECG ORDERABLES documented in this encounter Visit Diagnoses Diagnosis Chest pressure - Primary Other chest pain Type 2 diabetes mellitus without complic ation, without long-term current use of insulin (H) Morbid obesity, unspecified obesity type (H) documented in this encounter Administered Medications Inactive Administered Medications - up to 3 most recent administrations Medication Order MAR Action Action Date Dose Rate Site ipratropium - albuterol 0.5 mg/2.5 Given 08/16/2018 4:13 PM PAIN MEDICINE PHYSICIAN 3 mLs mg/3 mL (DUONEB) neb solution 3 mL 3 mL, Nebulization, ONCE, On [place] 08/16/18 at 1600, For 1 dose documented in this encounter Care Teams Judge'S Clerk Relationship Specialty Start Date End Date Krystin Christie PCP - General Nurse Practitioner 12/15/17 09/08/19 SAURABH Engel RECORDS ANALYSIS MANAGER [address] [facility] [place] [phone] Comfort Nichols MD PCP - Assigned PCP 04/08/18 08/25/18 [address] [facility] [place] [phone] Tali Vilchis MD INTERNAL MEDICINE - 04/10/15 ENDOCRINOLOGY, DIABETES [address] [facility] [address] [place], [place] [address] Anat Fuller MD Internal Medicine 04/10/1509/16 MD Renee [address] [facility] [address] [place], [place] [phone] Janny Hutton Physician Tile Sorter Physician Tile Sorter 06/30/15 09/17/19 CARLA Mckeon [address] [facility] [address] [place], [place] [address] Comfort Nichols MD Assigned PCP 04/08/18 08/25/[address] [facility] [address] [place], [place] [address] documented as of this encounter
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
--- OUTSIDE RECORDS SUMMARY | 2022-05-09 11:04 | XMS_ITS | Encounter Summary ---
:1955 Author Organization Friend Address [address] [facility] [place] [address] Care Team Providers Name Role Phone Tali Vilchis MD Unavailable Anat Fuller MD Unavailable [phone] Janny Hutton PA-C Unavailable [phone] Krystin Christie APRN SEED LABORATORY TECHNICIAN Primary Care Provider [phone] Comfort Nichols MD Unavailable Florecita Bryan RN Unavailable Comfort Nichols MD Unavailable Reason for Visit Diagnostic Imaging Mammo - Closed Specialty Diagnoses / Procedures Referred By Contact Refer red To Contact Diagnoses Encounter for screening mammogram for malignant neoplasm of breast Healthcare maintenance Krystin Christie, Procedures *MA Screening Digital Bilateral STORE SALES CONSULTANT SEED LABORATORY TECHNICIAN [address] [place] [address] [place] BAPTISTE [id number] Referral ID Status Reason Start Date Expiration Date Visits Requ ested Visits Authorized [id number] Closed 08/17/2018 08/17/2019 1 1 Encounter Details Date Type Department Care Team Description 08/17/2018 Ancillary Procedure M [facility] Danilo ndiaye for screening mammogram for malignant neoplasm of breast ; [facility] maintenance [address] [place] [address] [address] [place] Davila [phone] Social History Tobacco Use Types Packs/Day Years Used Date Smoking Tobacco: Never Smokeless Tobacco: Never Alcohol Use Standard Drinks/Week Comments No 0 (1 standard drink = 0.6 oz pure alcoho l) Sex Assigned at Date Recorded Female 08/17/2018 10:39 PM SNACK BAR ATTENDANT documented as of this encounter Plan of Treatment Upcoming Encounters Date Type Specialty Care Team Description 05/19/2022 Office Visit ENT Dima Hidalgo M D [address] [place], [place] [address] (Wo rk) 08/02/2022 Office Visit Neurology Yair Campos MD [address] [place] [address] (Wo rk) documented as of this encounter Procedures Procedure Name Priority Date/Time Associated Diagnosis Comme nts MA SCREENING Routine 08/17/2018 10:55 AM Encounter for Results for this DIGITAL BILATERAL SNACK BAR ATTENDANT screening mammogram pro cedure are in for malignant the results neoplasm of krystin st section. Healthcare maintenance documented in this encounter Results *MA Screening Digital Bilateral (08/17/2018 10:55 AM SNACK BAR ATTENDANT) Anatomical Region Laterality Modality Breast Bilateral Mammography Specimen (Source) Anatomical Location Collection Method / Collectio n Time Received Time / Laterality Volume Impressions 08/17/2018 2:23 PM SNACK BAR ATTENDANT IMPRESSION: BI-RADS CATEGORY: 1 - ??Negative RECOMMENDED FOLLOW-UP: Annual Mammograph y. Exam results letter mailed to patient. GERSON RENE MD Narrative 08/17/2018 2:23 PM SNACK BAR ATTENDANT SCREENING MAMMOGRAM, BILATERAL, DIGITAL w/CAD - 08/17/2018 10:55 AM BREAST SYMPTOMS: No current breast compl aints. COMPARISON: ??01/10/2016. BREAST DENSITY: Scattered fibroglandular densities. COMMENTS: No findings of suspicion for m alignancy. Procedure Note Gerson Rene MD - 08/17/2018For matting of this note might be different from the original. SCREENING MAMMOGRAM, BILATERAL, DIGITAL w/CAD - 08/17/2018 10:55 AM BREAST SYMPTOMS: No current breast compl aints. COMPARISON: 01/10/2016. BREAST DENSITY: Scattered fibroglandular densities. COMMENTS: No findings of suspicion for m alignancy. IMPRESSION: BI-RADS CATEGORY: 1 - Negati ve RECOMMENDED FOLLOW-UP: Annual Mammograph y. Exam results letter mailed to patient. GERSON RENE MD Krystin Maren Christie APRN SEED LABORATORY TECHNICIAN IMG MAMMOGRAPHY ORDERAB LES documented in this encounter Visit Diagnoses Diagnosis Encounter for screening mammogram for ma lignant neoplasm of breast Other screening mammogram Healthcare maintenance Routine general medical examination at a health care facility documented in this encounter Care Teams Master Black Belt Relationship Specialty Start Date End Date Krystin Christie PCP - General Nurse Practitioner 12/15/17 09/08/19 SAURABH Engel SEED LABORATORY TECHNICIAN [address] [place] [address] [place] BAPTIST[place] [address] Comfort Nichols MD PCP - Assigned PCP 04/08/18 08/25/[address] [place] [address] RUPESH BAPTISTE [id number] Tali Vilchis MD INTERNAL MEDICINE - 04/10/15 ENDOCRINOLOGY, DIABETES [address] [facility] [address] [place], [place] [address] Anat Fuller MD Internal Medicine 04/10/1509/16 MD Renee [address] [facility] [place], [place] [address] Janny Hutton Physician Assistant Hall Director Physician Assistant Hall Director 06/30/15 09/17/19 CARLA Mckeon 420 [facility] [address]03 [place], [place] [phone] Florecita Bryan, RN Lead Old Testament Professor 08/17/18 10/24/18 Comfort Nichols MD Assigned PCP 04/08/18 08/25/[address] [place] [address] R[place] BAPTISTE [id number] documented as of this encounter
--- OUTSIDE RECORDS SUMMARY | 2022-05-09 11:04 | XMS_ITS | Encounter Summary ---
:1955 Author Organization [place] Address [address] [facility] [place] [address] Care Team Providers Name Role Phone Tali Vilchis MD Unavailable Anat Fuller MD Unavailable [phone] Janny Hutton PA-C Unavailable [phone] Krystin Christie APRN, CNP Primary Care Provider [phone] Comfort Nichols MD Unavailable Comfort Nichols MD Unavailable Reason for Visit Reason Comments Medication Refill ipratropium - albuterol 0.5 mg/2.5 mg/3 mL (DUONEB) 0.5-2.5 (3) MG/3ML neb solution Encounter Details Date Type Department Care Team Description 08/09/2018 Refill [facility] Ramakrishna Marin M D Medication Refill [facility] [place] [address] [facility] (ipratropium - albuterol [address] 0.5 mg/2.5 mg/[address] [place] [address] (DUONEB) 0.5-2.5 (3) [address] MG/3ML neb solution) [place] [address] [phone] Social History Tobacco Use Types Packs/Day Years Used Date Smoking Tobacco: Never Smokeless Tobacco: Never Alcohol Use Standard Drinks/Week Comments No 0 (1 standard drink = 0.6 oz pure alcoho l) Sex Assigned at Date Recorded Female 08/17/2018 10:39 PM CUSTOM SEAMSTRESS documented as of this encounter Miscellaneous Notes Telephone Encounter - Zoie Izaguirre, RN - 08/10/2018 11:20 AM CUSTOM SEAMSTRESS Prescribed in urgent care yesterday. Wants a 90 day supply. Advised to follow up with PCP for ongoing mediation script management. 1 box was ordered by Zoie Rm RN - Triage [facility] OM SEAMSTRESS Telephone Encounter - Joanne Pool - 08/10/2018 8:08 AM CST Duplicate. ipratropium - albuterol 0.5 mg/2.5 mg/3 mL (DUONEB) 0.5-2.5 (3) MG/3ML neb solution was filled on 08/09/2018, qty 1 with 0 refills. OM SEAMSTRESS documented in this encounter Plan of Treatment Upcoming Encounters Date Type Specialty Care Team Description 05/19/2022 Office Visit ENT Dima Hidalgo M D [address] [place], [place] [address] (Wo rk) 08/02/2022 Office Visit Neurology Yair Campos MD [address] [place], [place] [address] (Wo rk) documented as of this encounter Visit Diagnoses Diagnosis Mild persistent asthma with acute exacer bation Unspecified asthma, with exacerbation documented in this encounter Care Teams Supervisor Residential Relationship Specialty Start Date End Date Krystin Christie PCP - General Nurse Practitioner 12/15/17 09/08/19 SAURABH Engel ASSEMBLER [address] [facility] R[place] BAPTISTE [id number] Comfort Nichols MD PCP - Assigned PCP 04/08/18 08/25/18 [address] [facility] [place] [address] Tali Vilchis MD INTERNAL MEDICINE - 04/10/15 ENDOCRINOLOGY, DIABETES [address] [facility] [address] [place], [place] [address] Anat Fuller MD Internal Medicine 04/10/1509/16 MD Renee [address] [facility] [address] [place], [place] [address] Janny Hutton Physician Finance Vice President Physician Finance Vice President 06/30/15 09/17/19 CARLA Mckeon [address] [facility] [address] [place], [place] [address] Comfort Nichols MD Assigned PCP 04/08/18 08/25/18 [address] [facility] [place] [id number] documented as of this encounter
--- OUTSIDE RECORDS SUMMARY | 2022-05-09 11:04 | XMS_ITS | Encounter Summary ---
:1955 Author Organization [place] Address [address] [facility] [place] [address] Care Team Providers Name Role Phone Tali Vilchis MD Unavailable Anat Fuller MD Unavailable [phone] Janny Hutton PA-C Unavailable [phone] Krystin Christie APRN, CNP Primary Care Provider [phone] Comfort Nichols MD Unavailable Florecita Bryan RN Unavailable Comfort Nichols MD Unavailable Reason for Visit Reason Onset Date Comments Prior Auth - Medication 08/10/2018 ipratropium - al buterol 0.5mg/2.5mg/3ml neb solution-PA NOT NEED ED Encounter Details Date Type Department Care Team Description 08/10/2018 [facility] Krystin Christie Prior Auth - Medication Clinic Lola Engel APRN CNP (ipratropium - [address] [place] [address] [facility] 0.5mg/2.5mg/3ml neb [address] [place] [address] solution-PA NOT NEEDED) [place] [address] [phone] Social History Tobacco Use Types Packs/Day Years Used Date Smoking Tobacco: Never Smokeless Tobacco: Never Alcohol Use Standard Drinks/Week Comments No 0 (1 standard drink = 0.6 oz pure alcoho l) Sex Assigned at Date Recorded Female 08/17/2018 10:39 PM STATE HISTORICAL SOCIETY DIRECTOR documented as of this encounter Miscellaneous Notes Telephone Encounter - Katherine Franco - 08/16/2018 11:40 AM CST Central Prior Authorization Team PA NOT NEEDED Medication: ipratropium - albuterol 0.5mg/2.5mg/3ml neb solution-PA NOT NEEDED Insurance Company: Pharmacy Filling the Rx: Filling Pharmacy Phone: Filling Pharmacy Fax: Start Date: 08/16/2018 Medication goes through Medicare Part B. Called pharmacy and they were able to get it to process andwill let the patient know when ready for pickup. E HISTORICAL SOCIETY DIRECTOR Telephone Encounter - Lauren Linares MA - 08/10/2018 1:54 PM CST Prior Authorization Retail Medication Request Medication/Dose: ICD code (if different than what is on RX): Previously Tried and Failed: advair diskus, albuterol inhaler, nasonex, montelukast tabs Rationale: Patient having current asthma exacerbation Not sure if this is Medicare or [place]omee Insurance Name: Medicare [id number] [place] Pharmacy Information (if different than what is on RX) Name: Phone: [email or web address] [place] # [id number] Lauren Linares CMA E HISTORICAL SOCIETY DIRECTOR documented in this encounter Plan of Treatment Upcoming Encounters Date Type Specialty Care Team Description 05/19/2022 Office Visit ENT Dima Hidalgo M D [address] [place], [place] [address] (Sarah pino) 08/02/2022 Office Visit Neurology Yair Campos MD [address] [facility] [place], [place] [address] (Sarah pino) documented as of this encounter Visit Diagnoses Not on filedocumented in this encounter Care Teams Renewable Energy Trader Relationship Specialty Start Date End Date Krystin Christie PCP - General Nurse Practitioner 12/15/17 09/08/19 SAURABH Engel CNP [address] [facility] RUPESH BAPTISTE [id number] Comfort Nichols MD PCP - Assigned PCP 04/08/18 08/25/[address] [place] [address] RUPESH BAPTISTE [id number] Tali Vilchis MD INTERNAL MEDICINE - 04/10/15 ENDOCRINOLOGY, DIABETES [address] [facility] & MET[facility]OLISM [address] [place], [place] [address] Anat Fuller MD Internal Medicine 04/10/1509/16 MD Renee [address] [facility] [address] [place], [place] [address] Janny Hutton Physician Credit Control Administrator Physician Credit Control Administrator 06/30/15 09/17/19 CARLA Mckeon 420 [facility] [address]03 [place], [place] [address] Florecita Bryan, RN Lead Spring Setter 08/17/18 10/24/18 Comfort Nichols MD Assigned PCP 04/08/18 08/25/[address] [place] [address] RUPESH BAPTISTE [id number] documented as of this encounter
--- OUTSIDE RECORDS SUMMARY | 2022-05-09 11:04 | XMS_ITS | Encounter Summary ---
:1955 Author Organization [place] Address [address] [facility] [place] [address] Care Team Providers Name Role Phone Tali Vilchis MD Unavailable Anat Fuller MD Unavailable [phone] Janny Hutton PA-C Unavailable [phone] Krystin Christie APRN GOVERNMENT OPERATIONS CONSULTANT Primary Care Provider [phone] Comfort Nichols MD Unavailable Comfort Nichols MD Unavailable Reason for Referral Diagnostic Imaging XR - Closed Specialty Diagnoses / Procedures Referred By Contact Refer red To Contact Diagnoses Cough Deyanira Jhaveri, Procedures XR Chest 2 Views CARLA [address] [place] [address] Referral ID Status Reason Start Date Expiration Date Visits Requ ested Visits Authorized [id number] Closed 06/17/2018 06/17/2019 1 1 T SERVICES ATTENDANT Reason for Visit Reason Comments Urgent Care Sinus Problem x 2 weeks but last night ear pain started Encounter Details Date Type Department Care Team Description 06/17/[address] [facility] Deyanira Jhaveri OME (ot itis media with effusion), right (Primary Dx); Urgent Care Lola Yen PA-C Acute sinusitis with symptoms > 10 days; [facility] [place] [address] Cough; [facility] [address] [place] [address] Mild persistent asthma without complicat ion; [address] Type 2 diabetes mellitus without complic ation, without long-term current use of insulin (H) [place] [address] [phone] Social History Tobacco Use Types Packs/Day Years Used Date Smoking Tobacco: Never Smokeless Tobacco: Never Alcohol Use Standard Drinks/Week Comments No 0 (1 standard drink = 0.6 oz pure alcoho l) Sex Assigned at Date Recorded Female 08/17/2018 10:39 PM GUEST SERVICES ATTENDANT documented as of this encounter Last Filed Vital Signs Vital Sign Reading Time Taken Comments Blood Pressure 112/64 06/17/2018 12:25 PM GUEST SERVICES ATTENDANT Pulse 76 06/17/2018 12:25 PM GUEST SERVICES ATTENDANT Temperature 36.3 ??C (97.4 ??F) 06/17/2018 12:25 PM GUEST SERVICES ATTENDANT Respiratory Rate 18 06/17/2018 12:25 PM GUEST SERVICES ATTENDANT Oxygen Saturation 94% 06/17/2018 12:25 PM GUEST SERVICES ATTENDANT Inhaled Oxygen Concentration - - Weight 85.8 kg (189 lb 3.2 oz) 06/17/2018 12:25 PM GUEST SERVICES ATTENDANT Height - - Body Mass Index 34.61 12/15/2017 2:51 PM CDT documented in this encounter Progress Notes Deyanira Jhaveri PA-C - 06/17/2018 11:15 AM CST SUBJECTIVE: Becki Ridley is a 63 year old female presenting with a chief complaint of cold sx, sinus pain and pressure for 2 weeks that getting worse and now with right ear pain that started last night. Hx of asthma and uses daily med but not needed her albuterol. Denies SOB or chest pain. Hx of diabetes but not been checking her BS Onset of symptoms was 2 week(s) ago. Course of illness is worsening. Severity moderate Current and Associated symptoms: denies GI sx, UTI sx, ST or rashes Treatment measures tried include Tylenol/Ibuprofen, Decongestants, OTC Cough med, Fluids, Rest. Predisposing factors include HX of asthma and hx of diabetes . Took dose of Erythromycin from years ago Hx of asthma and diabetes not well controlled. Last A1C 10.9. Hx of pneumonia and sinus infections. Has albuterol but not used. No wheezing heard. Past Medical History: Diagnosis Date ??? Angioedema ??? Arthritis ??? Asthma ??? Blood transfusion ??? Depression ??? DM2 (diabetes mellitus, type 2) (H) ??? Hypertension ??? Lower extremity edema ??? VILLAREAL (nonalcoholic steatohepatitis) ??? Restless legs syndrome ??? Restrictive lung disease ??? Sleep apnea ??? Subclinical hypothyroidism 2010 Current Outpatient Prescriptions Medication Sig Dispense Refill ??? ACCU-CHEK MULTICLIX LANCETS MISC test twice daily. ??? albuterol (2.5 MG/3ML) 0.083% neb solution Take 1 vial (2.5 mg) by nebulization every 6 hours asneeded for shortness of breath / dyspnea or wheezing 25 mL 0 ??? blood glucose monitoring (ACCU-CHEK ANNIE [...] needed. ??? fluticasone (FLONASE) 50 MCG/ACT spray Frazer 1-2 sprays into both nostrils daily 1 [...] by mouth daily 90 tablet 1 ??? metFORMIN (GLUCOPHAGE-XR) 500 MG 24 hr tablet TAKE 4 TABLETS(2000 MG) BY MOUTH DAILY WITH [id number] tablet 2 ??? mometasone (NASONEX) 50 MCG/ACT nasal spray 1 spray by Both Nostrils route every 12 hours. ??? montelukast (SINGULAIR) 10 MG tablet Take 1 tablet by mouth daily. ??? Potassium Gluconate 595 MG TABS Take 1 tablet by mouth 2 times daily. ??? liraglutide (VICTOZA PEN) 18 MG/3ML soln Inject 0.6 mg Subcutaneous daily (Patient not taking: Reported on 06/17/2018) 9 mL 3 ??? traMADol (ULTRAM) 50 MG tablet Take 1-2 tablets (50-100 mg) by mouth every 8 hours as needed forsevere pain Patient has been on Tramadol without any adverse effects nor allergic reactions. (Patient not taking: Reported on 11/20/2017) 20 tablet 0 Social History Substance Use Topics ??? Smoking status: Never Smoker ??? Smokeless tobacco: Never Used ??? Alcohol use No ROS: Review of systems otherwise negative except as stated above. OBJECTIVE: BP 112/64 Pulse 76 Temp 97.4 ??F (36.3 ??C) (Tympanic) Resp 18 Wt 189 lb 3.2 oz (85.8 kg) SpO2 94% BMI 34.61 kg/m2 GENERAL APPEARANCE: healthy, alert and no distress EYES: EOMI, PERRL, conjunctiva clear HENT: Right TM erythematous with distorted light reflex. Left TM clear. Moderate nasal congestion with PND and sinus pain and pressure bilateral. NECK: supple, nontender, no lymphadenopathy RESP: lungs clear to auscultation - no rales, rhonchi or wheezes CV: regular rates and rhythm, normal S1 S2, no murmur noted ABDOMEN: soft, nontender, no HSM or masses and bowel sounds normal NEURO: Normal strength and tone, sensory exam grossly normal, normal speech and mentation SKIN: no suspicious lesions or rashes Chest x-ray - No infiltrate noted. assessment/plan: (H65.91) OME (otitis media with effusion), right (primary encounter diagnosis) Comment: Plan: azithromycin (ZITHROMAX) 250 MG tablet Med as directed and OTC med for pain or sx relief. Signs of perforation discussed. Follow-up with PCP as needed (J01.90) Acute sinusitis with symptoms > 10 days Comment: Plan: azithromycin (ZITHROMAX) 250 MG tablet As directed, OTC med and increased fluids, steam and hot packs to face. Follow- up with PCP as needed (R05) Cough Comment: Plan: XR Chest 2 Views, azithromycin (ZITHROMAX) 250 MG tablet Normal chest x-ray/. No current wheezing noted and may use inhalers as directed. Red flag signs discussed and to Follow-up with PCP as needed (J45.30) Mild persistent asthma without complication Comment: Plan: Normal chest x-ray/. No current wheezing noted and may use inhalers as directed. Red flag signs discussed and to Follow-up with PCP as needed (E11.9) Type 2 diabetes mellitus without complication, without long-term current use of insulin (H) Comment: Plan: Encouraged to monitor BS. T SERVICES ATTENDANT documented in this encounter Plan of Treatment Upcoming Encounters Date Type Specialty Care Team Description 05/19/2022 Office Visit ENT Dima Hidalgo M D [address] [place], [place] [address] (Wo rk) 08/02/2022 Office Visit Neurology Yair Campos MD [address] [place], [place] [address] (Wo rk) documented as of this encounter Results XR Chest 2 Views (06/17/2018 12:47 PM GUEST SERVICES ATTENDANT) Anatomical Region Laterality Modality Chest Computed Radiography Specimen (Source) Anatomical Location Collection Method / Collectio n Time Received Time / Laterality Volume Impressions 06/17/2018 1:04 PM GUEST SERVICES ATTENDANT IMPRESSION: Normal. UMESH ZARATE MD Narrative 06/17/2018 1:04 PM GUEST SERVICES ATTENDANT CHEST TWO VIEWS ??06/17/2018 12:47 PM HISTORY: ??Cough. COMPARISON: 10/10/2017 Procedure Note Umesh Zartae MD - 06/17/2018Form atting of this note might be different from the original. CHEST TWO VIEWS 06/17/2018 12:47 PM HISTORY: Cough. COMPARISON: 10/10/2017 IMPRESSION: Normal. UMESH ZARATE MD Deyanira Jhaveri PA-C IMG DIAGNOSTIC IMAGING ORDER CHAI documented in this encounter Visit Diagnoses Diagnosis OME (otitis media with effusion), right - Primary Acute sinusitis with symptoms > 10 days Acute sinusitis, unspecified Cough Mild persistent asthma without complicat ion Unspecified asthma Type 2 diabetes mellitus without complic ation, without long-term current use of insulin (H) Cough documented in this encounter Care Teams A Auxiliary Relationship Specialty Start Date End Date Krystin Christie PCP - General Nurse Practitioner 12/15/17 09/08/19 SAURABH Engel GOVERNMENT OPERATIONS CONSULTANT [address] [facility] [place] [address] Comfort Nichols MD PCP - Assigned PCP 04/08/18 08/25/18 [address] [facility] [place] BAPTISTE [id number] Tali Vilchis MD INTERNAL MEDICINE - 04/10/15 ENDOCRINOLOGY, DIABETES [address] [facility]ISM [address] [place] [address] Anat Fuller MD Internal Medicine 04/10/1509/16 MD Renee 516 [facility] [address] [place] [address] Janny Hutton Physician Orthodontic Technician Assistant Physician Orthodontic Technician Assistant 06/30/15 09/17/19 CARLA Mckeon 420 [facility] 803 [place] [address] Comfort Nichols MD Assigned PCP 04/08/18 08/25/18 [address] [facility] RUPESH BAPTISTE [id number] documented as of this encounter
--- OUTSIDE RECORDS SUMMARY | 2022-05-09 11:04 | XMS_ITS | Encounter Summary ---
:1955 Author Organization [place] Address [address] [facility] [place] [address] Care Team Providers Name Role Phone Tali Vilchis MD Unavailable Anat Fuller MD Unavailable [phone] Janny Hutton PA-C Unavailable [phone] Krystin Christie APRN HOSPITAL COORDINATOR Primary Care Provider [phone] Comfort Nichols MD Unavailable Florecita Bryan RN Unavailable Comfort Nichols MD Unavailable Encounter Details Date Type Department Care Team Description 08/17/2018 Orders Only [facility] Krystin Christie l iver enzymes (Primary Dx); Clinic Lola Engel APRN Encounter for screening for other viral diseases ; [address] [facility] Current moderate episode of major depres sive disorder, unspecified whether recurrent (H) [address] [facility] [address] [facility] [place]iste [address] [place] [address] Social History Tobacco Use Types Packs/Day Years Used Date Smoking Tobacco: Never Smokeless Tobacco: Never Alcohol Use Standard Drinks/Week Comments No 0 (1 standard drink = 0.6 oz pure alcoho l) Sex Assigned at Date Recorded Female 08/17/2018 10:39 PM REFERENCE AND INSTRUCTION LIBRARIAN documented as of this encounter Plan of Treatment Upcoming Encounters Date Type Specialty Care Team Description 05/19/2022 Office Visit ENT Dima Hidalgo M D [address] [facility] [place] [address] (Wo rk) 08/02/2022 Office Visit Neurology Yair Campos MD [address] [place] [address] (Wo rk) documented as of this encounter Results Hepatitis B Surface Antibody (08/24/2018 11:36 AM REFERENCE AND INSTRUCTION LIBRARIAN) athologist Signature Hepatitis B 0.00 <8.00 08/27/2018 [facility] m[IU]/mL 11:27 AM REFERENCE AND INSTRUCTION LIBRARIAN [facility] Comment: Nonreactive, No antibody detect ed when the value is less than 8.00 m[IU]/mL. Specimen Anatomical Collection Method Collection Time Receive d Time (Source) Location / / Volume Laterality Blood specimen 08/24/2018 11:36 9 (specimen) AM REFERENCE AND INSTRUCTION LIBRARIAN 11:37 AM REFERENCE AND INSTRUCTION LIBRARIAN Krystin Christie APRN HOSPITAL COORDINATOR LAB - BLOOD ORDERABLES Performing Organization Address City/[facility]/ZIP Code Phon e Number [address] Hepatitis B core antibody (08/24/2018 11:36 AM REFERENCE AND INSTRUCTION LIBRARIAN) [facility] Method Time Signature Hepatitis B Nonreactive NR^Nonrea 08/27/2018 [facility] [place] ctive 11:27 AM REFERENCE AND INSTRUCTION LIBRARIAN [facility] Specimen Anatomical Collection Method Collection Time Receive d Time (Source) Location / / Volume Laterality Blood specimen 08/24/2018 11:36 9 (specimen) AM REFERENCE AND INSTRUCTION LIBRARIAN 11:37 AM REFERENCE AND INSTRUCTION LIBRARIAN Krystin Christie APRN HOSPITAL COORDINATOR LAB - BLOOD ORDERABLES Performing Organization Address City/[facility]/ZIP Code Phon e Number [address] Hepatitis B surface antigen (08/24/2018 11:36 AM REFERENCE AND INSTRUCTION LIBRARIAN) [facility] Method Time Signature Hep B Surface Nonreactive NR^Nonrea 08/27/2018 UN[facility]ITY OF Agn ctive 11:27 AM REFERENCE AND INSTRUCTION LIBRARIAN [facility] Specimen Anatomical Collection Method Collection Time Receive d Time (Source) Location / / Volume Laterality Blood specimen 08/24/2018 11:36 9 (specimen) AM REFERENCE AND INSTRUCTION LIBRARIAN 11:37 AM REFERENCE AND INSTRUCTION LIBRARIAN Krystin Christie APRN HOSPITAL COORDINATOR LAB - BLOOD ORDERABLES Performing Organization Address City/[facility]/ZIP Code Phon e Number [facility] [address] [place] [address] [facility] Hepatitis C antibody (08/24/2018 11:36 AM REFERENCE AND INSTRUCTION LIBRARIAN) Patholo gist Method Time Signature Hepatitis C Nonreactive NR^Nonrea 08/27/2018 UN[facility]ERSITY OF Antibody ctive 11:27 AM REFERENCE AND INSTRUCTION LIBRARIAN [facility] Comment: Assay performance characteristics have n ot been established for newborns, infants, and children Specimen Anatomical Collection Method Collection Time Receive d Time (Source) Location / / Volume Laterality Blood specimen 08/24/2018 11:36 9 (specimen) AM REFERENCE AND INSTRUCTION LIBRARIAN 11:37 AM REFERENCE AND INSTRUCTION LIBRARIAN Krystin Christie APRN, CNP LAB - BLOOD ORDERABLES Performing Organization Address City/[facility]/ZIP Code Phon e Number [facility] [address] [place] [address] [facility] Ferritin (08/24/2018 11:36 AM REFERENCE AND INSTRUCTION LIBRARIAN) P athologist Signature Ferritin 172 8 [phone] 252 08/25/2018 [facility] ng/mL 9:[address] [facility] Specimen Anatomical Collection Method Collection Time Receive d Time (Source) Location / / Volume Laterality Blood specimen 08/24/2018 11:36 9 (specimen) AM REFERENCE AND INSTRUCTION LIBRARIAN 11:37 AM REFERENCE AND INSTRUCTION LIBRARIAN Krystin Christie APRN HOSPITAL COORDINATOR LAB - BLOOD ORDERABLES Performing Organization Address City/State/ZIP Code Phon e Number [facility] [address] [place] [address] documented in this encounter Visit Diagnoses Diagnosis Elevated liver enzymes - Primary Nonspecific elevation of levels of trans aminase or lactic acid dehydrogenase (LDH) Encounter for screening for other viral diseases Current moderate episode of major depres sive disorder, unspecified whether recurrent (H) documented in this encounter Care Teams Program Analyst Relationship Specialty Start Date End Date Krystin Christie PCP - General Nurse Practitioner 12/15/17 09/08/19 SAURABH Engel HOSPITAL COORDINATOR [address] [facility] [address] [place], [place] [phone] Comfort Nichols MD PCP - Assigned PCP 04/08/18 08/25/18 [address] [facility] [address] [place], [place] [id number] Tali Vilchis MD INTERNAL MEDICINE - 04/10/15 ENDOCRINOLOGY, DIABETES [address] [facility] [address] [place], [place] [address] Anat Fuller MD Internal Medicine 04/10/1509/16 MD Renee [address] [facility] [address] [place], [place] [address] Janny Hutton Physician Wharf Attendant Physician Wharf Attendant 06/30/15 09/17/19 CARLA Mckeon [address] [facility] [address] [place], [place] [address] Florecita Bryan, RN Lead Cook [address] 08/17/18 10/24/18 Comfort Nichols MD Assigned PCP 04/08/18 08/25/18 [address] [facility] [place] [id number] documented as of this encounter
--- OUTSIDE RECORDS SUMMARY | 2022-05-09 11:04 | XMS_ITS | Encounter Summary ---
:1955 Author Organization [place] Address [facility] [place] [address] Care Team Providers Name Role Phone Tali Vilchis MD Unavailable Anat Fuller MD Unavailable [phone] Janny Hutton PA-C Unavailable [phone] Krystin Christie APRN PRODUCT TECHNICIAN Primary Care Provider [phone] Comfort Nichols MD Unavailable Florecita Bryan RN Unavailable Comfort Nichols MD Unavailable Encounter Details Date Type Department Care Team Description 08/17/2018 Travel Social History Tobacco Use Types Packs/Day Years Used Date Smoking Tobacco: Never Smokeless Tobacco: Never Alcohol Use Standard Drinks/Week Comments No 0 (1 standard drink = 0.6 oz pure alcoho l) Sex Assigned at Date Recorded Female 08/17/2018 10:39 PM CUSTOMER RELATIONS ASSISTANT documented as of this encounter Plan of Treatment Upcoming Encounters Date Type Specialty Care Team Description 05/19/2022 Office Visit ENT Dima Hidalgo M D [address] [place] [address] (Wo rk) 08/02/2022 Office Visit Neurology Yair Campos MD [address] [facility] eet [place], [place] [address] (Wo rk) documented as of this encounter Visit Diagnoses Not on filedocumented in this encounter Care Teams Zoology Technical Officer Relationship Specialty Start Date End Date Krystin Christie PCP - General Nurse Practitioner 12/15/17 09/08/19 SAURABH Engel PRODUCT TECHNICIAN [address] [facility] [place] [id number] Comfort Nichols MD PCP - Assigned PCP 04/08/18 08/25/[address] [place] [address] [place] [id number] Tali Vilchis MD INTERNAL MEDICINE - 04/10/15 ENDOCRINOLOGY, DIABETES [address] [facility] [address] [place] [address] Anat Fuller MD Internal Medicine 04/10/1509/16 MD Renee [address] [place], [place] [address] Janny Hutton Physician Senior Lead Project Manager Physician Senior Lead Project Manager 06/30/15 09/17/19 CARLA Mckeon [address] [facility] [address] [place], [place] [address] Florecita Bryan, RN Lead Manager Asset 08/17/18 10/24/18 Comfort Nichols MD Assigned PCP 04/08/18 08/25/[address] [place] [address] [place] [id number] documented as of this encounter
--- OUTSIDE RECORDS SUMMARY | 2022-05-09 11:04 | XMS_ITS | Encounter Summary ---
:1955 Author Organization [place] Address [address] [facility] [place] [address] Care Team Providers Name Role Phone Tali Vilchis MD Unavailable Anat Fuller MD Unavailable [phone] Janny Hutton PA-C Unavailable [phone] Krystin Christie APRN, CNP Primary Care Provider [phone] Comfort Nichols MD Unavailable Comfort Nichols MD Unavailable Reason for Visit Reason Onset Date Comments Patient Request 08/15/2018 Patient request for different meds Encounter Details Date Type Department Care Team Description 08/15/2018 Telephone [facility] Krystin Christie Patient Re quest Clinic Lola Engel APRN CNP (Patient request for [address] [place] [address] [facility] diffe rent meds) [facility] [address] [place] [address] [place] [address] [phone] Social History Tobacco Use Types Packs/Day Years Used Date Smoking Tobacco: Never Smokeless Tobacco: Never Alcohol Use Standard Drinks/Week Comments No 0 (1 standard drink = 0.6 oz pure alcoho l) Sex Assigned at Date Recorded Female 08/17/2018 10:39 PM LEGAL BILLING SPECIALIST documented as of this encounter Miscellaneous Notes Telephone Encounter - Renetta Spann RN - 08/16/2018 10:02 AM CST Patient advised of need for appointment. Appointment scheduled this afternoon with Krystin Christie. Has been doing the nebs 4 times per day. Advised her to increase this to every 4-6 hours. Voices understanding of instructions. No further questions. Will call back if any other questions or concerns. Sujey Spann RN L BILLING SPECIALIST Telephone Encounter - Krystin Christie APRN CNP - 08/16/2018 9:46 AM LEGAL BILLING SPECIALIST I haven't seen patient in over a year. She should really be seen today or tomorrow. I believe I haveavailability. If needed, we can send in more duonebs because I want her to be doing that q 4-6 hours. L BILLING SPECIALIST Telephone Encounter - Zoie Izaguirre RN - 08/15/2018 4:29 PM LEGAL BILLING SPECIALIST Patient calling and reports continues to be symptomatic. Continues to be out of energy. Denies much improvement in any symptoms since UC. Chest continues to be real tight. States that the only thing that has worsened is she is losing her voice. Has not been coughing as much which has improved. Not using Benzonatate any longer. Reports that there is a little wheezing. Using Albuterols nebs 4 times daily, Completed the steroid burst, Not currently using the Duo-nebs as she left them at her house and she went to her daughters yesterday. Denies: Fevers, Patient is looking for follow up recommendations from provider as advised to do in UC. Advised PCP not in office today and would not respond until tomorrow. Patient agreed and discussed if she was feeling SOB or having worsening symptoms to seek ER care and not wait for response from provider. Patient notes that previously she was on a longer steroids which feels was more effective. Please advise, Zoie Rm RN - Triage [facility] UC visit 08/09/2018 Albuterol neb given in clinic with minimal [...] tessalon perles given to help with cough. ?? Reviewed importance of improving diabetes as uncontrolled diabetes indirectly causes more frequent infections. Refill test strips, encourage medication adherence, exercise and diet. L BILLING SPECIALIST Telephone Encounter - Sis Mark - 08/15/2018 2:50 PM CST Reason for call: Other Patient called regarding (reason for call): call back Additional comments: Patient was seen in urgent care and is not getting any better. Dr. Marin told her to call back if no better and they would prescribe something different. Phone number to reach patient: Home number on file [phone] (home) Best Time: salima Can we leave a detailed message on this number? YES L BILLING SPECIALIST documented in this encounter Plan of Treatment Upcoming Encounters Date Type Specialty Care Team Description 05/19/2022 Office Visit ENT Dima Hidalgo M D [address] [place], [place] [address] (Wo rk) 08/02/2022 Office Visit Neurology Yair Campos MD [address] [place] [address] (Wo rk) documented as of this encounter Visit Diagnoses Not on filedocumented in this encounter Care Teams Undergraduate Intern Relationship Specialty Start Date End Date Krystin Christie PCP - General Nurse Practitioner 12/15/17 09/08/19 SAURABH Engel STORAGE BATTERY TESTER [address] [facility] [place] [phone] Comfort Nichols MD PCP - Assigned PCP 04/08/18 08/25/18 [address] [facility] [place] [address] Tali Vilchis MD INTERNAL MEDICINE - 04/10/15 ENDOCRINOLOGY, DIABETES [address] [facility] [address] [place] [address] Anat Fuller MD Internal Medicine 04/10/1509/16 MD Renee [address] [facility] [address] [place], [place] [address] Janny Hutton Physician Hydroelectric Station Chief Physician Hydroelectric Station Chief 06/30/15 09/17/19 CARLA Mckeon 420 [facility] 803 [place] [address] Comfort Nichols MD Assigned PCP 04/08/18 08/25/18 [address] [facility] [place] [address] documented as of this encounter
--- OUTSIDE RECORDS SUMMARY | 2022-05-09 11:04 | XMS_ITS | Encounter Summary ---
:1955 Author Organization [place] Address [address] [place] [address] Care Team Providers Name Role Phone Tali Vilchis MD Unavailable Anat Fuller MD Unavailable [phone] Janny Hutton PA-C Unavailable [phone] Krystin Christie APRN CLINICAL SERVICES PROFESSIONAL Primary Care Provider [phone] Comfort Nichols MD Unavailable Comfort Nichols MD Unavailable Reason for Visit Reason Onset Date Comments Panel Management 04/10/2018 ACT, AAP, colonoscop y/FIT, mammogram Encounter Details Date Type Department Care Team Description 04/10/2018 Telephone [facility] Krystin Christie (ACT, Clinic Lola Engel APRN CNP AAP, colonoscopy/FIT, [address] [place] [address] [facility] mammo gram) [facility] [address] [place] [address] [place] [address] [phone] Social History Tobacco Use Types Packs/Day Years Used Date Smoking Tobacco: Never Smokeless Tobacco: Never Alcohol Use Standard Drinks/Week Comments No 0 (1 standard drink = 0.6 oz pure alcoho l) Sex Assigned at Date Recorded Female 08/17/2018 10:39 PM CARD PUNCHING MACHINE OPERATOR documented as of this encounter Miscellaneous Notes Telephone Encounter - Lauren Linares MA - 04/23/2018 9:32 AM CDT Called and left VM for patient to contact clinic. Also sent MyChart. Patient needs physical, mammo, FIT/colon, ACT, AAP and cholesterol check. Lauren Linares CMA Telephone Encounter - Lauren Linares MA - 04/13/2018 10:23 AM CDT Reminder letter mailed to patient. Lauren Linares CMA Telephone Encounter - Lauren Linares MA - 04/10/2018 10:05 AM CDT Panel Management Review Patient has the following on her problem list: Asthma review No flowsheet data found. 1. Is Asthma diagnosis on the Problem List? Yes 2. Is Asthma listed on Health Maintenance? Yes 3. Patient is due for: ACT and AAP Diabetes ASA: Failed - not on med list as prescribed or not prescribed - intentional Last A1C Lab Results Component Value Date [...] patient is due/due soon for the following Mammogram, Colonoscopy/Fecal Colorectal (FIT) Summary: Patient is due/failing the following: AAP, [...] Office Visit ENT Dima Hidalgo M D [address] [facility] [address] [place], [place] [address] (Wo rk) 08/02/2022 Office Visit Neurology Yair Campos MD [address] [facility] [address] [place], [place] [address] (Wo rk) documented as of this encounter Visit Diagnoses Not on filedocumented in this encounter Care Teams Aluminum Pool Installer Relationship Specialty Start Date End Date Krystin Christie PCP - General Nurse Practitioner 12/15/17 09/08/19 SAURABH Engel [facility] [address] [facility] [place] [id number] Comfort Nichols MD PCP - Assigned PCP 04/08/18 08/25/18 [address] [facility] [place] [phone] Tali Vilchis MD INTERNAL MEDICINE - 04/10/15 ENDOCRINOLOGY, DIABETES [address] [facility] MET[facility]OLISM [address] [place], [place] [address] Anat Fuller MD Internal Medicine 04/10/1509/16 MD Renee [address] [facility] [address] [place], [place] [phone] Janny Hutton Physician University Registrar Physician University Registrar 06/30/15 09/17/19 CARLA Mckeon [address] [facility] 803 [place], [place] [address] Comfort Nichols MD Assigned PCP 04/08/18 08/25/[address] [facility] [address] [place], [place] [phone] documented as of this encounter
--- OUTSIDE RECORDS SUMMARY | 2022-05-09 11:04 | XMS_ITS | Encounter Summary ---
:1955 Author Organization [place] Address [facility] [place] [address] Care Team Providers Name Role Phone Tali Vilchis MD Unavailable Anat Fuller MD Unavailable [phone] Janny Hutton PA-C Unavailable [phone] Krsytin Christie APRN, CNP Primary Care Provider [phone] Comfort Nichols MD Unavailable Florecita Bryan RN Unavailable Comfort Nichols MD Unavailable Reason for Referral Med Therapy Management - Closed Specialty Diagnoses / Procedures Referred By Contact Refer red To Contact Diagnoses Type 2 diabetes mellitus with complication, without long-term current use of insulin (H) Krystin Christie, [facility] SAURABH DIMMER BOARD OPERATOR [address] [place] [id number] [place] [address] Referral ID Status Reason Start Date Expiration Date Visits Requ ested Visits Authorized [id number] Closed 08/17/2018 08/17/2019 1 1 are Coordination - Closed Specialty Diagnoses / Procedures Referred By Contact Refer red To Contact Diagnoses Type 2 diabetes mellitus with complication, without long-term current use of insulin (H) Krystin Christie APRN CNP [address] [place] [address] RUPESH BAPTISTE [id number] Referral ID Status Reason Start Date Expiration Date Visits Requ ested Visits Authorized [id number] Closed 08/17/2018 08/17/2019 1 1 iagnostic Imaging Mammo - Closed Specialty Diagnoses / Procedures Referred By Contact Refer red To Contact Diagnoses Encounter for screening mammogram for malignant neoplasm of breast Healthcare maintenance Krystin Christie, Procedures *MA Screening Digital Bilateral SAURABH MALDONADO [address] [place] [address] [place]IST[place] [id number] Referral ID Status Reason Start Date Expiration Date Visits Requ ested Visits Authorized [id number] Closed 08/17/2018 08/17/2019 1 1 L PASTER Reason for Visit Reason Comments RECHECK Encounter Details Date Type Department Care Team Description 08/17/2018 Office Visit [facility] Krystin Christie Type 2 lashawn betes mellitus with complication, without long-term current use of insulin (H) (Primary Dx); Clinic Lola Engel APRN SOB (shortness of breath); [address] [place] [address] Healthcare maintenance; [facility] [address] [place] [address] Encounter for screening for malignant neoplasm of colon ; [address] [facility] Encounter for screening mammogram for ma lignant neoplasm of breast RUPESH Davila [id number] R[place]ESH DAVILA [address] [phone] Social History Tobacco Use Types Packs/Day Years Used Date Smoking Tobacco: Never Smokeless Tobacco: Never Alcohol Use Standard Drinks/Week Comments No 0 (1 standard drink = 0.6 oz pure alcoho l) Sex Assigned at Date Recorded Female 08/17/2018 10:39 PM LABEL PASTER documented as of this encounter Last Filed Vital Signs Vital Sign Reading Time Taken Comments Blood Pressure 106/62 08/17/2018 9:56 AM LABEL PASTER Pulse 95 08/17/2018 9:56 AM LABEL PASTER Temperature 36.3 ??C (97.3 ??F) 08/17/2018 9:56 AM LABEL PASTER Respiratory Rate - - Oxygen Saturation 96% 08/17/2018 9:56 AM LABEL PASTER Inhaled Oxygen Concentration - - Weight 83.5 kg (184 lb) 08/17/2018 9:56 AM LABEL PASTER Height 157.5 cm (5' 2) 08/17/2018 9:56 AM LABEL PASTER Body Mass Index 33.65 08/17/2018 9:56 AM LABEL PASTER documented in this encounter Patient Instructions Patient InstructionsMoliKrystin rooney APRN CNP - 08/17/2018 10:00 AM LABEL PASTER 1. Call and ask about [employer]: [employer] provides patient assistance for those who qualify. Please call to learn more about [employer] assistance programs. 2. Please check sugars 4-5 times per day. Need to be seen if over 400 or symptomatic of dehydration,confusion, nausea, etc. Stay hydrated. No/low carb diet 3. Start glipizide 5mg daily. This can, in general, cause low blood sugars, but I'm not too concerned about this because yours are so high. Signs of low blood sugars are shakiness, confusion, weakness,etc L PASTER documented in this encounter Progress Notes Krystin Christie APRN CNP - 08/17/2018 10:00 AM CST SUBJECTIVE: Becki Ridley is a 63 year old female who presents to clinic today for the following health issues: Patient here today for follow up of SOB and blood sugars. States she feels a little better today. Feels like chest tightness is better. Patient not sure about pharmacy - please check which one she wants - cost concern. At [facility] test had an esophageal motility test. States her esophagus is uncoordinated. Has bad urinary incontinence. ROS: const/endo/cv/resp otherwise negative OBJECTIVE: BP 106/62 (BP Location: Right arm, Cuff Size: Adult Large) Pulse 95 Temp 97.3 ??F (36.3 ??C) (Tympanic) Ht 1.575 m (5' 2) Wt 83.5 kg (184 lb) SpO2 96% BMI 33.65 kg/m?? CONSTITUTIONAL: Alert, well-nourished, well-groomed, NAD RESP: Lungs CTA. No wheeze, rhonchi, rales. CV: HRRR S1 S2 No MRG. No peripheral edema PSYCH: Bright affect. Appropriate mentation and speech. ASSESSMENT/PLAN: (E11.8) Type 2 diabetes mellitus with complication, without long-term current use of insulin (H) (primary encounter diagnosis) Comment: Poorly controlled at 11.6 yesterday. Over the last week, patient has re-started meformin 2000mg and switched to a very low carb diet. Sugars have come down from around 300 to 220-280. She has no hyperglycemia sx, but was started on high dose steroids yesterday. She has medicare and a supplement but some of the meds are still too expensive including lantus and victoza. Plan: glipiZIDE (GLUCOTROL XL) 5 MG 24 hr tablet, FOOT EXAM, CARE COORDINATION REFERRAL, MED THERAPY MANAGE REFERRAL -Call [employer] to ask about their need scholarships -Continue metformin -Start glipizide. Reviewed r/b/se. Ok to take with victoza given that (R06.02) SOB (shortness of breath) Comment: Pt reports dramatic improvement since starting steroids. Plan: -Continue taper -Reinforced re-starting controller inhaler -F/U with MTM -See me 2 weeks. Will consider PFTs to clarify diagnosis -Discussed reasons to seek care urgently. (Z00.00) Healthcare maintenance Plan: Fecal colorectal cancer screen (FIT), *MA Screening Digital Bilateral (Z12.11) Encounter for screening for malignant neoplasm of colon Plan: Fecal colorectal cancer screen (FIT) (Z12.31) Encounter for screening mammogram for malignant neoplasm of breast Plan: *MA Screening Digital Bilateral ISAURO Moreno-SONAM. L PASTER documented in this encounter Plan of Treatment Upcoming Encounters Date Type Specialty Care Team Description 05/19/2022 Office Visit ENT Dima Hidalgo M D [address] [place], [place] [address] (Wo rk) 08/02/2022 Office Visit Neurology Yair Campos MD [address] [facility] [address] (Wo rk) Scheduled Referrals Name Type Priority Associated Diagnoses Order S chedule MED THERAPY MANAGE Referral Routine Type 2 diabetes mellit Ordered: 08/17/2018 REFERRAL with complication, without long-term current use of insulin (H) documented as of this encounter Results Fecal colorectal cancer screen (FIT) (08/30/2018 3:00 PM LABEL PASTER) Analysis Performed At Patho logist Time Signature Occult Blood Negative NEG^Negati 08/31/2018 [facility] FIT ve 10:11 PM LABEL PASTER [facility] Specimen Anatomical Collection Method Collection Time Receive d Time (Source) Location / / Volume Laterality Stool specimen 08/30/2018 3:00 PM 019 5:30 (specimen) LABEL PASTER PM LABEL PASTER Krystin Christie APRN DIMMER BOARD OPERATOR LAB - STOOLS ORDERABLES Performing Organization Address City/State/ZIP Code Phon e Number [facility] [address] [place] [address] [facility] *ND Screening Digital Bilateral (08/17/2018 10:55 AM LABEL PASTER) Anatomical Region Laterality Modality Breast Bilateral Mammography Specimen (Source) Anatomical Location Collection Method / Collectio n Time Received Time / Laterality Volume Impressions 08/17/2018 2:23 PM LABEL PASTER IMPRESSION: BI-RADS CATEGORY: 1 - ??Negative RECOMMENDED FOLLOW-UP: Annual Mammograph y. Exam results letter mailed to patient. GERSON RENE MD Narrative 08/17/2018 2:23 PM LABEL PASTER SCREENING MAMMOGRAM, BILATERAL, DIGITAL w/CAD - 08/17/2018 [...] mailed to patient. GERSON RENE MD Krystin Christie APRN DIMMER BOARD OPERATOR IMG MAMMOGRAPHY ORDERAB LES documented in this encounter Visit Diagnoses Diagnosis Type 2 diabetes mellitus with complicati on, without long-term current use of insulin (H) - Primary SOB (shortness of breath) Shortness of breath Healthcare maintenance Routine general medical examination at a health care facility Encounter for screening for malignant ne oplasm of colon Special screening for malignant neoplasm s, colon Encounter for screening mammogram for ma lignant neoplasm of breast Other screening mammogram Encounter for screening mammogram for ma lignant neoplasm of breast Other screening mammogram Healthcare maintenance Routine general medical examination at a health care facility documented in this encounter Care Teams Medical Chief Technician Relationship Specialty Start Date End Date Krystin Christie PCP - General Nurse Practitioner 12/15/17 09/08/19 SAURABH Engel DIMMER BOARD OPERATOR [address] [facility] RUPESH BAPTISTE [id number] Comfort Nichols MD PCP - Assigned PCP 04/08/18 08/25/18 [address] [facility] RUPESH BAPTISTE [id number] Tali Vilchis MD INTERNAL MEDICINE - 04/10/15 ENDOCRINOLOGY, DIABETES [address] [facility] [address] [place], [place] [address] Anat Fuller MD Internal Medicine 04/10/1509/16 MD Renee [address] [facility] [address] [place], [place] [address] Janny Hutton Physician Meteorologist Liaison Physician Meteorologist Liaison 06/30/15 09/17/19 CARLA Mckeon [address] [facility] [address] [place], [place] [address] Florecita Bryan, RN Lead Tests Superintendent 08/17/18 10/24/18 Comfort Nichols MD Assigned PCP 04/08/18 08/25/18 [address] [facility] [place] BAPTIST[place] [id number] documented as of this encounter
--- OUTSIDE RECORDS SUMMARY | 2022-05-09 11:05 | XMS_ITS | Encounter Summary ---
:1955 Author Organization [place] Address [address] [facility] [place] [address] Care Team Providers Name Role Phone Aleks Lopez MD Primary Care Provider Tali Vilchis MD Unavailable Anat Fuller MD Unavailable [phone] Janny Hutton PA-C Unavailable [phone] Encounter Details Date Type Department Care Team Description 08/09/2016 Orders Only [facility] Tali Vilchis [facility] Endocrinology MD Kaitlynn hypothyroidism (Primary [address] [place] [address] Dx) 3rd Floor [facility] [address] [place] [address] Social History Tobacco Use Types Packs/Day Years Used Date Smoking Tobacco: Never Smokeless Tobacco: Never Alcohol Use Standard Drinks/Week Comments No 0 (1 standard drink = 0.6 oz pure alcoho l) Sex Assigned at Date Recorded Female 08/17/2018 10:39 PM TEST HOLE DRILLER documented as of this encounter Plan of Treatment Upcoming Encounters Date Type Specialty Care Team Description 05/19/2022 Office Visit ENT Dima Hidalgo M D [address] [place], [place] [address] (Wo rk) 08/02/2022 Office Visit Neurology Yair Campos MD [address] [facility] [place] [address] (Wo rk) documented as of this encounter Visit Diagnoses Diagnosis Subclinical hypothyroidism - Primary Other specified acquired hypothyroidism documented in this encounter Care Teams Network Program Manager Relationship Specialty Start Date End Date Aleks Lopez MD PCP - General Family Practice 10/18/14 11/01/16 Tali Vilchis MD MD INTERNAL MEDICINE - 04/10/15 09/17/19 [address] [facility] ENDOCRINOLOGY, DIABETES [address] & METABOLISM [place], [place] [address] Anat Fuller MD Internal Medicine 04/10/1509/16 MD Renee [address] [facility] [address] [place], [place] [address] Janny Hutton, Physician Dental Practice Manager Physician Dental Practice Manager 06/1609/17/19 PA-C [address] [facility] [address] [place], [place] [address] documented as of this encounter
--- OUTSIDE RECORDS SUMMARY | 2022-05-09 11:05 | XMS_ITS | Encounter Summary ---
:1955 Author Organization [place] Address [address] [facility] [place] [address] Care Team Providers Name Role Phone Tali Vilchis MD Unavailable Anat Fuller MD Unavailable [phone] Janny Hutotn PA-C Unavailable [phone] No Ref-Primary, Physician Primary Care Provider [phone] Reason for Visit Reason Onset Date Comments Refill Request 09/12/2017 levothyroxine 50 MCG tablet Encounter Details Date Type Department Care Team Description 09/12/2017 Refill M [facility] Endocrinolo gy Tali Vilchis, Refill Request [address] [facility] (levothyroxine 50 MCG 3rd Floor [address] [facility] tablet) [place], [place] [address] [place] [address] [phone] (Wo rk) Social History Tobacco Use Types Packs/Day Years Used Date Smoking Tobacco: Never Smokeless Tobacco: Never Alcohol Use Standard Drinks/Week Comments No 0 (1 standard drink = 0.6 oz pure alcoho l) Sex Assigned at Date Recorded Female 08/17/2018 10:39 PM ULTRASOUND SONOGRAPHER documented as of this encounter Miscellaneous Notes Telephone Encounter - Ceci Linares RN - 09/12/2017 1:59 PM CST levothyroxine (SYNTHROID/LEVOTHROID) 50 MCG tablet Last Written Prescription Date: 08/09/16 Last Fill Quantity: 90, # refills: 3 Last Office Visit : 09/28/16 Future Office visit: none Routing refill request to provider for review/approval because: provider preference ASOUND SONOGRAPHER documented in this encounter Plan of Treatment Upcoming Encounters Date Type Specialty Care Team Description 05/19/2022 Office Visit ENT Dima Hidalgo M D [address] [place], [place] [address] (Wo rk) 08/02/2022 Office Visit Neurology Yair Campos MD [address] [facility] [place] [place] [address] (Wo rk) documented as of this encounter Visit Diagnoses Diagnosis Subclinical hypothyroidism Other specified acquired hypothyroidism documented in this encounter Care Teams Sap Security Architect Relationship Specialty Start Date End Date No Ref-Primary, PCP - General 11/02/16 12/14/17 Physician Tali Vilchis MD MD INTERNAL MEDICINE - 04/10/15 09/17/19 [address] [facility] ENDOCRINOLOGY, DIABETES [address] & [place] [address] Anat Fuller MD Internal Medicine 04/10/1509/[address] [facility] [address] [place], [place] [phone] Janny Hutton Physician Packerhead Machine Operator Physician Packerhead Machine Operator 06/1609/17/19 CARLA [address] [facility] [address] [place], [place] [id number] documented as of this encounter
--- OUTSIDE RECORDS SUMMARY | 2022-05-09 11:05 | XMS_ITS | Encounter Summary ---
:1955 Author Organization [place] Address [address] [facility] [place] [address] Care Team Providers Name Role Phone Tali Vilchis MD Unavailable Anat Fuller MD Unavailable [phone] Janny Hutton PA-C Unavailable [phone] No Ref-Primary, Physician Primary Care Provider [phone] Reason for Visit Reason Comments Back Pain radiation to arms and chest today Encounter Details Date Type Department Care Team Description 11/02/2016 Emergency [facility] Linda Chavez ommunity acquired bacterial pneumonia; Emergency Department MD Krystin Upper back pain; [address] [facility] DM type 2 (diabetes mellitus, type 2) (H ) [place] [address] [place], [place] [phone] 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 of this encounter Last Filed Vital Signs Vital Sign Reading Time Taken Comments Blood Pressure 143/61 11/02/2016 3:40 PM CDT Pulse 73 11/02/2016 3:40 PM CDT Temperature 37 ??C (98.6 ??F) 11/02/2016 3:40 PM CDT Respiratory Rate 14 11/02/2016 3:40 PM CDT Oxygen Saturation 97% 11/02/2016 3:40 PM CDT Inhaled Oxygen Concentration - - Weight 90 kg (198 lb 6.6 oz) 11/02/2016 3:40 PM CDT Height 160 cm (5' 3) 11/02/2016 3:40 PM CDT Body Mass Index 35.15 11/02/2016 3:40 PM CDT documented in this encounter Discharge Instructions Discharge InstructionsTsLinda fenton MD - 11/02/2016 9:25 PM CDT Images from the original note were not included. Pneumonia (Adult) Pneumonia is an infection deep within the lungs. It is in the small air sacs (alveoli). Pneumonia may be caused by a virus or bacteria. Pneumonia caused by bacteria??is usually treated with an antibiotic. Severe cases may need to be treated in the hospital. Milder cases can be treated at home. Symptoms usually start to get better during the first??2 days of treatment. Home care Follow these guidelines when caring for yourself at home: ?? Rest at home for the first 2 to 3 days, or until you feel stronger. Don???t let yourself get overly tired when you go back to your activities. ?? Stay away from cigarette smoke - yours or other people???s. ?? You may use acetaminophen or ibuprofen to control fever or pain, unless another medicine was prescribed. If you have chronic liver or kidney disease, talk with your health care provider before usingthese medicines. Also talk with your provider if you???ve had a stomach ulcer or GI bleeding. Don???t give aspirin to anyone younger than 18 years of age who is ill with a fever. It may cause severe liver damage. ?? Your appetite may be poor, so a light diet is fine. ?? Drink 6 to 8 glasses of fluids every day to make sure you are getting enough fluids. Beverages can include water, sport drinks, sodas without caffeine, juices, tea, or soup. Fluids will help loosen secretions in the lung. This will make it easier for you to cough up the phlegm (sputum). If you alsohave heart or kidney disease, check with your health care provider before you drink extra fluids. ?? Take antibiotic medicine prescribed until it is all gone, even if you are feeling better after a few days. Follow-up care Follow up with your health care provider in the next 2 to 3 days, or as advised. This is to be sure the medicine is helping you get better. If you are 65 or older, you should get a pneumococcal vaccine and a yearly??flu (influenza)??shot. You should also get these vaccines if you have chronic lung disease like asthma, emphysema, or COPD. Ask your provider about this. When to seek medical advice Call your health care provider right away if any of these occur: ?? You don???t get better within the first 48 hours of treatment ?? Shortness of breath gets worse ?? Rapid breathing (more than 25 breaths per minute) ?? Coughing up blood ?? Chest pain gets worse with breathing ?? Fever of??102??F (38??C) or higher that doesn???t get better with fever medicine ?? Weakness, dizziness, or fainting that gets worse ?? Thirst or dry mouth that gets worse ?? Sinus pain, headache, or a stiff neck ?? Chest pain not caused by coughing ?? [phone] [employer]. [address] [place] [address], [place] [address]. All rights reserved. This information is not intended as a substitute for professional medical care. Always follow your healthcare professional's instructions. Please make an appointment to follow up with Your Primary Care Provider in 2-5 days. Return with anyworsening or concerns. documented in this encounter Medications at Time of Discharge Medication Sig Dispensed Refills Start Date End Date EPINEPHrine (EPIPEN) 0.3 Inject 0.3 mg into 0 MG/0.3ML injection the muscle once as needed. azithromycin (ZITHROMAX Two tablets on the 6 tablet 0 10/1511/07/2016 Z-KITTY) 250 MG tablet first day, then one tablet daily for the next 4 days cyclobenzaprine Take 1 tablet (10 20 tablet 0 11/02/2016 (FLEXERIL) 10 MG tablet mg) by mouth 3 times daily as needed for muscle spasms ACCU-CHEK MULTICLIX test twice daily. 0 1 08/17/2018 LANCETS MISC Albuterol Sulfate Inhale 2 puffs into 0 1 10/10/2017 (VENTOLIN HFA) 108 (90 the lungs 4 times BASE) MCG/ACT AERS daily as needed. blood glucose monitoring Use to test blood 200 each 1 06/1708/17/2018 (ACCU-CHEK ANNIE PLUS) sugar 2 times daily test stripIndications: or as directed. Type 2 diabetes mellitus without complication (H) blood glucose monitoring Use to test blood 200 each 3 09/1401/13/2020 (JAYLENE CONTOUR NEXT) sugar 2 times daily test stripIndications: or as directed. Type 2 diabetes mellitus without complication, without long-term current use of insulin (H), Alopecia, History of corticosteroid therapy, Morbid obesity, unspecified obesity type (H) blood glucose monitoring Use to test blood 4 Box 3 09/1401/13/2020 (JAYLENE MICROLET) sugar 2 times daily lancetsIndications: Type or as directed. 2 diabetes mellitus without complication, without long-term current use of insulin (H), Alopecia, History of corticosteroid therapy, Morbid obesity, unspecified obesity type (H) blood glucose monitoring Use to test blood 2 Box 3 07/1808/17/2018 (SOFTCLIX) sugar 2 times daily lancetsIndications: Type or as directed. 2 diabetes mellitus without complication (H) blood glucose monitoring Use to test blood 2 Box 3 06/1608/17/2018 (ULTRA THIN 30G) sugar 2 times daily lancetsIndications: (lancets that go Diabetes mellitus, type with device covered 2 (H) by insurance) Blood Glucose Monitoring Any glucose meter 1 kit 1 06/1608/17/2018 Suppl (IBG STAR) covered by insurance W/DEVICE KITIndications: use as directed (not Diabetes mellitus, type store brand) 2 (H) busPIRone (BUSPAR) 5 MG Take 5 mg by mouth 0 08/17/2018 tablet daily canaliflozin (INVOKANA) Take 300 mg by mouth 0 11/09/2016 tablet every morning (before breakfast) cetirizine (ZYRTEC) 10 Take 1 tablet by 90 tablet 3 012 08/17/2018 MG tabletIndications: mouth daily as Asthma, Hives needed. For hives fluticasone-salmeterol Inhale 1 puff into 0 08/17/2018 (ADVAIR DISKUS) 500-50 the lungs every 12 MCG/DOSE diskus inhaler hours. furosemide (LASIX) 20 MG Take 1 tablet by 0 08/17/2018 tablet mouth 2 times daily. Glucose Blood (BLOOD Test 2 times daily 200 each 3 015 08/09/2018 GLUCOSE TEST STRIPS) (strips that go with STRPIndications: meter covered by Diabetes mellitus, type insurance) 2 (H) glucose blood test Test twice daily. 1 Box 12 011 08/17/2018 strips (ACCU-CHEK COMPACT TEST DRUM) strip ibuprofen (ADVIL,MOTRIN) Take 3 tablets (600 20 tablet 0 08/17/2018 200 MG tablet mg) by mouth every 8 hours as needed for mild pain levocetirizine (XYZAL) 5 Take 5 mg by mouth 0 08/17/2018 MG tabletIndications: Type 2 diabetes mellitus without complication (H), Hypothyroidism, unspecified hypothyroidism type levothyroxine Take 1 tablet (50 90 tablet 3 08/09/201608/18 (SYNTHROID/LEVOTHROID) mcg) by mouth daily 50 MCG tabletIndications: Subclinical hypothyroidism liraglutide (VICTOZA Inject 0.6 mg 9 mL 3 09/29/2016 0 08/16/2018 PEN) 18 MG/3ML Subcutaneous daily solnIndications: Type 2 diabetes mellitus without complication, without long-term current use of insulin (H), Alopecia, History of corticosteroid therapy, Morbid obesity, unspecified obesity type (H) metFORMIN Take 4 tablets 120 tablet 11 09/28/2016 09/30/2017 (GLUCOPHAGE-XR) 500 MG (2,000 mg) by mouth 24 hr tabletIndications: daily (with dinner) Type 2 diabetes mellitus without complication, without [...] 201008/17/2018 MG TABS mouth 2 times daily. PREDNISONE Take 20 mg by mouth 0 03/30 POIndications: Type 2 as needed diabetes mellitus without complication (H), Hypothyroidism, unspecified hypothyroidism type documented as of this encounter ED Notes Alta Linares RN - 11/02/2016 3:43 PM CDT Developed back four days ago that has been getting worse. Pain is radiating to arms and chest. + SOAat times. Linda Chavez MD - 11/02/2016 2:58 PM CDT Images from the original note were not included. History Chief Complaint Patient presents with ??? Back Pain radiation to arms and chest today HPI Becki Ridley is a 61 year old female with a history of obesity, DM type II, nonalcoholic fatty liver disease, HTN and restrictive lung disease who presents to the Emergency Department for evaluation of back pain. For the past week, the patient has been experiencing right upper back pain that radiates up to her right shoulder, right neck, right arm and down her back. Her pain acutely worsened Monday (4 days ago) and has progressively worsened since, exacerbated with movement and inspiration. She has been taking Ibuprofen without relief. Additionally, she reports chest tightness, intermittent brief hand tingling, nausea and diarrhea. She denies trauma/falls, cough, vomiting, fever, leg pain, legswelling or any other concerns or complaints at this time. No history of back problems or DVT/PE. Not currently taking steroids, last use was in the fall (~4- 6 months ago). Past Medical History: Diagnosis Date ??? Angioedema [...] ??? COLONOSCOPY age 52 [place] results Family History Problem Relation Age of Onset ??? Thyroid Disease Daughter patric thyroiditis ??? Depression Daughter ??? Anxiety Disorder Daughter ??? Depression Mother ??? Dementia Mother ??? Hypertension Mother ??? CANCER Mother ??? Depression Father ??? Hypertension Father ??? Depression Maternal Grandmother ??? Dementia Maternal Aunt ??? Dementia Maternal Aunt ??? Dementia Maternal Aunt ??? Dementia Maternal Aunt Social History Substance Use Topics ??? Smoking status: Never Smoker ??? Smokeless tobacco: Never Used ??? Alcohol use No No current facility-administered medications for this encounter. Current Outpatient Prescriptions Medication ??? azithromycin (ZITHROMAX Z-KITTY) 250 MG tablet ??? cyclobenzaprine (FLEXERIL) 10 MG tablet ??? blood glucose monitoring (JAYLENE CONTOUR NEXT) test strip ??? blood glucose monitoring (JAYLENE MICROLET) lancets ??? liraglutide (VICTOZA PEN) 18 MG/3ML soln ??? metFORMIN (GLUCOPHAGE-XR) 500 MG 24 hr tablet ??? levothyroxine (SYNTHROID/LEVOTHROID) 50 MCG tablet ??? blood glucose monitoring (SOFTCLIX) lancets ??? blood glucose monitoring (ACCU-CHEK ANNIE PLUS) test strip ??? Glucose Blood (BLOOD GLUCOSE TEST STRIPS) STRP ??? blood glucose monitoring (ULTRA THIN 30G) lancets ??? Blood Glucose Monitoring Suppl (IBG STAR) W/DEVICE KIT ??? PREDNISONE PO ??? levocetirizine (XYZAL) 5 MG tablet ??? canaliflozin (INVOKANA) tablet ??? ibuprofen (ADVIL,MOTRIN) 200 MG tablet ??? busPIRone (BUSPAR) 5 MG tablet ??? cetirizine (ZYRTEC) 10 MG tablet ??? mometasone (NASONEX) 50 MCG/ACT nasal spray ??? montelukast (SINGULAIR) 10 MG tablet ??? glucose blood test strips (ACCU-CHEK COMPACT TEST DRUM) strip ??? ACCU-CHEK MULTICLIX LANCETS MISC ??? EPINEPHrine (EPIPEN 2-KITTY) 0.3 MG/0.3ML injection ??? fluticasone-salmeterol (ADVAIR DISKUS) 500-50 MCG/DOSE diskus inhaler ??? Albuterol Sulfate (VENTOLIN HFA) 108 (90 BASE) MCG/ACT AERS ??? furosemide (LASIX) 20 MG tablet ??? Potassium Gluconate 595 MG TABS Allergies Allergen Reactions ??? Cipro [Quinolones] Itching and Difficulty breathing ??? Codeine Sulfate Other (See Comments) Blacked out ??? Vicodin [Hydrocodone-Acetaminophen] Itching and Difficulty breathing ??? Darvocet [Propoxyphene N-Apap] Itching I have reviewed the Medications, Allergies, Past Medical and Surgical History, and Social History inthe Epic system. Review of Systems Constitutional: Negative for fever. Respiratory: Positive for chest tightness. Negative for cough and shortness of breath. Cardiovascular: Negative for chest pain and leg swelling. Gastrointestinal: Positive for diarrhea and nausea. Negative for abdominal pain and vomiting. Musculoskeletal: Positive for back pain (right upper) and neck pain. Positive for right shoulder pain. Positive for right arm pain. Negative for leg pain. Neurological: Positive for intermittent hand tingling. All other systems reviewed and are negative. Physical Exam BP: 143/61 Pulse: 73 Temp: 98.6 ??F (37 ??C) Resp: 14 Height: 160 cm (5' 3) Weight: 90 kg (198 lb 6.6 oz) SpO2: 97 % Physical Exam Constitutional: No distress. HENT: Head: Atraumatic. Eyes: No scleral icterus. Cardiovascular: Normal heart sounds and intact distal pulses. Pulmonary/Chest: Breath sounds normal. No respiratory distress. Abdominal: Soft. There is no tenderness. Musculoskeletal: She exhibits tenderness. She exhibits no edema. Back: ROM intact throughout upper extremities. Strength equal bilaterally. CMS intact. Pulses strong and equal bilaterally. + increased discomfort in the back with movement of the right shoulder. Skin: Skin is warm. No rash noted. She is not diaphoretic. ED Course 6:06 PM The patient was seen and examined by Dr. Chavez in [facility]. ED Course Procedures EKG Interpretation: Interpreted by Linda Chavez Time reviewed: 1800 Symptoms at time of EKG: back pain Rhythm: normal sinus Rate: normal [place]: normal Ectopy: none Conduction: normal ST Segments/ T Waves: No ST-T wave changes Q Waves: none Comparison to prior: No old EKG available Clinical Impression: normal EKG Critical Care time: none Labs Ordered and Resulted from Time of ED Arrival Up to the Time of Departure from the ED BASIC METABOLIC PANEL - Abnormal; Notable for the following: Result Value Glucose 158 (*) Creatinine 0.48 (*) All other components within normal limits CBC WITH PLATELETS DIFFERENTIAL CK TOTAL TROPONIN I D DIMER QUANTITATIVE CK TOTAL Assessments & Plan (with Medical Decision Making) Patient is tender with palpation in the paraspinous musculature to the right of her spine. She has no bony point tenderness. Lungs are clear, although she does note that when she breathes in her lungs don???t feel right as if he had a respiratory illness. CBC was unremarkable. BMP was likewise unremarkable. Troponin was negative, chest x-ray unremarkable. I did check a d-dimer as well and this is lowat 0.3. I do think this essentially rules her out for PE given that she is low risk. Chest x-ray wasdone, and the radiologist did report patchy opacities in the right lung base concerning for developing infection. This was discussed with the patient. I do think that she does have some muscle spasm, but I do think pneumonia is likely contributing to this. I did consider other serious causes such as referred cardiac pain, but given the negative troponin and the constant nature of her symptoms, this is unlikely. I also considered dissection, though the pain was gradual in onset and she is quite tender with palpation in different spots, including her arms. Pulses seem strong and equal in bilateral wrists. I do think she is safe for discharge home and I strongly encouraged her to return with any worsening or concerns. She will discharged home and given a prescription for a Z-Kitty as well as Flexeril.She was encouraged to follow-up and is again encouraged to return to the ER with any worsening or concerns. This part of the document was transcribed by Caity Rodas Scribe. I have reviewed the nursing notes. I have reviewed the findings, diagnosis, plan and need for follow up with the patient. Discharge Medication List as of 11/02/2016 9:39 PM START taking these medications Details azithromycin (ZITHROMAX Z-KITTY) 250 MG tablet Two tablets on the first day, then one tablet daily forthe next 4 days, Disp-6 tablet, R-0, Local Print cyclobenzaprine (FLEXERIL) 10 MG tablet Take 1 tablet (10 mg) by mouth 3 times daily as needed for muscle spasms, Disp-20 tablet, R-0, Local Print Final diagnoses: Community acquired bacterial pneumonia Upper back pain ICynthia, am serving as a trained health care / medical job titles to document services personally performed by Linda Chavez MD, based on the provider's statements to me. ILinda MD, was physically present and have reviewed and verified the accuracy of this note documented by Cynthia Stanley. 11/02/2016 [facility] [place], EMERGENCY DEPARTMENT Linda Chavez MD 11/02/16 2310 documented in this encounter Plan of Treatment Upcoming Encounters Date Type Specialty Care Team Description 05/19/2022 Office Visit [facility] [address] [facility] [place], [place] [address] (Wo rk) 08/02/2022 Office Visit Neurology Yair Campos MD [address] [facility] [place], [place] [id number] (Wo rk) documented as of this encounter Procedures Procedure Name Priority Date/Time Associated Comments Diagnosis CK TOTAL STAT 11/02/2016 7:50 PM Results f or this CDT procedure are i n the results section. XR CHEST 2 VIEWS STAT 11/02/2016 6:41 PM Resul ts for this CDT procedure are i n the results section. CBC WITH PLATELETS & STAT 11/02/2016 6:37 PM R esults for this DIFFERENTIAL CDT procedure are i n the results section. TROPONIN I STAT 11/02/2016 6:37 PM Results f or this CDT procedure are i n the results section. D DIMER QUANTITATIVE Routine 11/02/2016 6:37 PM R esults for this CDT procedure are i n the results section. CK TOTAL STAT 11/02/2016 6:37 PM Results f or this CDT procedure are i n the results section. BASIC METABOLIC PANEL STAT 11/02/2016 6:37 PM Results for this CDT procedure are i n the results section. EKG 12-LEAD, TRACING STAT 11/02/2016 3:58 PM R esults for this ONLY CDT procedure are i n the results section. documented in this encounter Results CK total (11/02/2016 7:50 PM CDT) [facility] Method Time Signature CK Total Unsatisfactory specimen - hemolyzed 30 - [address] [facility] [address] MARTIN PLATT ??11/02/16 @ 2124 BY 1922 U/L [facility] Specimen Anatomical Collection Method Collection Time Receive d Time (Source) Location / / Volume Laterality Blood specimen 11/02/2016 7:50 PM 017 8:07 (specimen) CDT PM CDT Linda Chavez MD LAB - BLOOD ORDERABLES Performing Organization Address City/State/ZIP Code Phon e Number [facility] [address] [place] [address] [facility] Chest XR, PA & LAT (11/02/2016 6:41 PM CDT) Anatomical Region Laterality Modality Chest Computed Radiography Specimen (Source) Anatomical Location Collection Method / Collectio n Time Received Time / Laterality Volume Impressions 11/02/2016 11:03 PM CDT IMPRESSION: Patchy opacities in the right lung base concerning for a developing infection. I have personally reviewed the examinati on and initial interpretation and I agree with the findings. UMESH SNYDER MD Narrative 11/02/2016 11:03 PM CDT EXAM: XR CHEST 2 VW ??11/02/2016 6:41 PM ?? HISTORY: upper back pain, right sided COMPARISON: CT and chest x-ray 03/28/2013 FINDINGS: Cardiac silhouette within norm al limits. Mild patchy airspace opacities in the right lung bas e. No pleural effusion or pneumothorax. Procedure Note Umesh Snyder MD - 017 EXAM: XR CHEST 2 VW 11/02/2016 6:41 PM HISTORY: upper back pain, right sided COMPARISON: CT and chest x-ray 03/28/2013 FINDINGS: Cardiac silhouette within norm al limits. Mild patchy airspace opacities in the right lung bas e. No pleural effusion or pneumothorax. IMPRESSION: Patchy opacities in the righ t lung base concerning for a developing infection. I have personally reviewed the examinati on and initial interpretation and I agree with the findings. UMESH SNYDER MD Linda Chavez MD IMG DIAGNOSTIC IMAGING ORDER CHAI D dimer quantitative (11/02/2016 6:37 PM CDT) athologist Signature D Dimer 0.3 0.0 - 0.50 [facility] ug/ml [facility] Comment: This D-dimer assay is intended for use i n conjuntion with a clinical pretest probability assessment model to exclude pulmonary embolism (PE) and as an aid in the diagnosis of deep venous thrombo sis (DVT) in outpatients suspected of PE or DVT. The cut-off value is 0.5??g/mL [facility]. Specimen Anatomical Collection Method Collection Time Receive d Time (Source) Location / / Volume Laterality 11/02/2016 6:37 PM 7 6:55 CDT PM CDT Linda Chavez MD LAB - BLOOD ORDERABLES Performing Organization Address City/[facility]/ZIP Code Phon e Number [address] Troponin I (11/02/2016 6:37 PM CDT) [facility] Method Time Signature Troponin I ES <0.015 0.000 - [facility] The 99th percentile for uppe r reference range is 0.045 ug/L. ??Troponin values in 0.045 [facility] the range of 0.045 - 0.120 ug/L may be associated wit h risks of adverse ug/L [facility] clinical events. [place] Specimen Anatomical Collection Method Collection Time Receive d Time (Source) Location / / Volume Laterality Blood specimen 11/02/2016 6:37 PM 017 6:55 (specimen) CDT PM CDT Linda Chavez MD LAB - BLOOD ORDERABLES Performing Organization Address City/[facility]/ZIP Code Phon e Number [address] CK total (11/02/2016 6:37 PM CDT) [facility] Method [place] Signature CK Total Unsatisfactory specimen - hemolyzed 30 - 225 [facility] [employer]ER 1925 10/31 [place] U/L [facility] Specimen Anatomical Collection Method Collection Time Receive d Time (Source) Location / / Volume Laterality Blood specimen 11/02/2016 6:37 PM 017 6:55 (specimen) CDT PM CDT Linda Chavez MD LAB - BLOOD ORDERABLES Performing Organization Address City/[facility]/ZIP Code Phon e Number [facility] [address] (ABNORMAL) Basic metabolic panel (11/02/2016 6:37 PM CDT) P athologist Signature Sodium 138 133 - 144 [facility] mmol/L [facility] Potassium 4.3 3.4 - 5.3 [facility] mmol/L [facility] Comment: Specimen slightly hemolyzed, po tassium may be falsely elevated Chloride 106 94 - 109 mmol/L [facility] Carbon Dioxide 24 20 - 32 mmol/L [facility] Anion Gap 8 3 - 14 mmol/L [facility] Glucose 158 (H) 70 - 99 mg/dL [facility] Urea Nitrogen 8 7 - 30 mg/dL [facility] Creatinine 0.48 (L) 0.52 - 1.04 mg/dL [facility] GFR Estimate >90 >60 mL/min/1.7m2 [facility] Non GFR Calc [facility] GFR Estimate If Black >90 >60 mL/min/1.7m2 [facility] GFR Calc [facility] Calcium 9.1 8.5 - 10.1 mg/dL [facility] Specimen Anatomical Collection Method Collection Time Receive d Time (Source) Location / / Volume Laterality Blood specimen 11/02/2016 6:37 PM 017 6:55 (specimen) CDT PM CDT Linda Chavez MD LAB - BLOOD ORDERABLES Performing Organization Address City/[facility]/ZIP Code Phon e Number [facility] [address] CBC with platelets differential (11/02/2016 6:37 PM CDT) Patholo gist Method Time Signature WBC 7.7 4.0 - [facility] .0 [facility] 10e9/L [facility] RBC Count 4.96 3.8 - 5.2 [facility] 10e12/L [facility] Hemoglobin 13.9 11.7 - [place] OF 15.7 g/dL [facility] Hematocrit 41.3 35.0 - [place] 47.0 % [facility] MCV 83 78 - 100 [facility] fl [facility] MCH 28.0 26.5 - [place] 33.0 pg [facility] MCHC 33.7 31.5 - [place] 36.5 g/dL [facility] RDW 14.3 10.0 - [place] 15.0 % [facility] Platelet Count 205 150 - 450 [facility] 10e9/L [facility] Diff Method Automated [facility] % Neutrophils 47.1 % [facility] % Lymphocytes 46.7 % [facility] % Monocytes 3.6 % [facility] % Eosinophils 2.2 % [facility] % Basophils 0.1 % [facility] % Immature 0.3 % [facility] Granulocytes [facility] Nucleated RBCs 0 0 /100 [facility] Absolute 3.6 1.6 - 8.3 [facility] Neutrophil 10e9/L [facility] Absolute 3.6 0.8 - 5.3 [facility] Lymphocytes 10e9/L [facility] Absolute 0.3 0.0 - 1.3 [facility] Monocytes 10e9/L [facility] Absolute 0.2 0.0 - 0.7 [facility] Eosinophils 10e9/L [facility] Absolute 0.0 0.0 - 0.2 [facility] Basophils 10e9/L [facility] Abs Immature 0.0 0 - 0.4 [facility] Granulocytes 10e9/L [facility] Absolute 0.0 [facility] Nucleated RBC [facility] Specimen Anatomical Collection Method Collection Time Receive d Time (Source) Location / / Volume Laterality Blood specimen 11/02/2016 6:37 PM 017 6:55 (specimen) CDT PM CDT Linda Chavez MD LAB - BLOOD ORDERABLES Performing Organization Address City/State/ZIP Code Phon e Number [facility] [address] [place] [address] [facility] EKG 12-lead, tracing only (11/02/2016 3:58 PM CDT) [facility] gist Method Time Signature Interpretation ECG Click View RADIOLOGY Image link RESULTS to view waveform and result Specimen (Source) Anatomical Collection Method Collection Time Re ceived Time Location / / Volume Laterality 11/02/2016 3:58 PM CDT Lincoln Jones MD ECG ORDERABLES Performing Organization Address City/[facility]/ZIP Code Phon e Number RADIOLOGY RESULTS documented in this encounter Visit Diagnoses Diagnosis Community acquired bacterial pneumonia Bacterial pneumonia, unspecified Upper back pain Pain in thoracic spine DM type 2 (diabetes mellitus, type 2) (H ) Type II or unspecified type diabetes almita litus without mention of complication, not stated as uncontrolled documented in this encounter Care Teams Night Assistant Relationship Specialty Start Date End Date No Ref-Primary, PCP - General 11/02/16 12/14/17 Physician Tali Vilchis MD MD INTERNAL MEDICINE - 04/10/15 09/17/19 [address] [facility] ENDOCRINOLOGY, DIABETES [address] & [place] [address] Anat Fuller MD Internal Medicine 04/10/1509/16 MD Renee [address] [facility] [address] [place], [place] [phone] Janny Hutton, Physician Dentures Lab Technician Physician Dentures Lab Technician 06/1609/17/19 PA-C [address] [facility] [address] [place], [place] [phone] documented as of this encounter
--- OUTSIDE RECORDS SUMMARY | 2022-05-09 11:05 | XMS_ITS | Encounter Summary ---
:1955 Author Organization [place] Address [address] [facility] [place] [address] Care Team Providers Name Role Phone Tali Vilchis MD Unavailable Anat Fuller MD Unavailable [phone] Janny Hutton PA-C Unavailable [phone] No Ref-Primary, Physician Primary Care Provider [phone] Reason for Visit Reason Onset Date Comments Appointment 04/07/2017 Encounter Details Date Type Department Care Team Description 04/07/2017 Telephone [facility] Krystin Christie, Appointment [place] [facility] [address] [facility] [address] [facility] [address] [place] [address] [place] [address] [phone] Social History Tobacco Use Types Packs/Day Years Used Date Smoking Tobacco: Never Smokeless Tobacco: Never Alcohol Use Standard Drinks/Week Comments No 0 (1 standard drink = 0.6 oz pure alcoho l) Sex Assigned at Date Recorded Female 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 Transferred to the scheduling Que //Brigitte Quintero MA// April 07, 2017 4:55 PM Telephone Encounter - Krystin Christie APRN CNP - 04/07/2017 4:21 PM CDT Please call and have her see lab then MTM for 1 hour then me for 20 minutes following that documented in this encounter Plan of Treatment Upcoming Encounters Date Type Specialty Care Team Description 05/19/2022 Office Visit ENT Dima Hidalgo M D [address] [phone] (Wo rk) 08/02/2022 Office Visit Neurology Yair Campos MD [address] [facility] [place], [place] [phone] (Wo rk) documented as of this encounter Results (ABNORMAL) Hemoglobin A1c (10/15/2018 4:30 PM CDT) P athologist Signature Hemoglobin A1C 7.7 (H) 0 - 5.6 % 10/15/2018 [place] 4:50 PM CDT [facility] Comment: Normal <5.7% Prediabetes 5.7-6.4% ??Diab etes 6.5% or higher - adopted from ADA consensus guidelines. Specimen Anatomical Collection Method Collection Time Receive d Time (Source) Location / / Volume Laterality Blood specimen 10/15/2018 4:30 PM 019 4:35 (specimen) CDT PM CDT Krystin Christie APRN, CNP LAB - BLOOD ORDERABLES Performing Organization Address City/State/ZIP Code Phon e Number [facility] [address] [place] [address] documented in this encounter Visit Diagnoses Diagnosis Type 2 diabetes mellitus with hyperglyce sonia, without long-term current use of insulin (H) - Primary documented in this encounter Care Teams Metal Smelter Relationship Specialty Start Date End Date No Ref-Primary, PCP - General 11/02/16 12/14/17 Physician Tali Vilchis MD MD INTERNAL MEDICINE - 04/10/15 09/17/19 [address] [facility] ENDOCRINOLOGY, DIABETES [address] & METABOLISM [place], [place] [phone] Anat Fuller MD Internal Medicine 04/10/1509/16 MD Renee [address] [facility] [address] [place] [address] Janny Hutton, Physician Diamond Die Driller Physician Diamond Die Driller 06/1609/17/19 PAZachC [address] [facility] [address] [place], [place] [phone] documented as of this encounter
--- OUTSIDE RECORDS SUMMARY | 2022-05-09 11:05 | XMS_ITS | Encounter Summary ---
:1955 Author Organization [place] Address [address] [facility] [place] [address] Care Team Providers Name Role Phone Tali Vilchis MD Unavailable Anat Fuller MD Unavailable [phone] Janny Hutton PA-C Unavailable [phone] No Ref-Primary, Physician Primary Care Provider [phone] Reason for Visit Reason Comments URI Bronchitis Encounter Details Date Type Department Care Team Description 04/07/2017 Office Visit [facility] Krystin Christie (Cassie velez Dx); Clinic [place] Engel APRN Type 2 diabetes mellitus wit h hyperglycemia, without long-term current use of insulin (H) [address] [facility] [address] [facility] [place] [address] [place] [id number] Social History Tobacco Use Types Packs/Day Years Used Date Smoking Tobacco: Never Smokeless Tobacco: Never Alcohol Use Standard Drinks/Week Comments No 0 (1 standard drink = 0.6 oz pure alcoho l) Sex Assigned at Date Recorded Female 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 documented as of this encounter Last Filed Vital Signs Vital Sign Reading Time Taken Comments Blood Pressure 108/80 04/07/2017 3:01 PM CDT Pulse 83 04/07/2017 3:01 PM CDT Temperature 36.6 ??C (97.9 ??F) 04/07/2017 3:01 PM CDT Respiratory Rate - - Oxygen Saturation 97% 04/07/2017 3:01 PM CDT Inhaled Oxygen Concentration - - Weight 85.3 kg (188 lb) 04/07/2017 3:01 PM CDT Height - - Body Mass Index 33.3 11/02/2016 3:40 PM CDT documented in this encounter Patient Instructions Patient InstructionsMolitorKrystin APRN CNP - 04/07/2017 2:40 PM CDT -Please start Azithromcyin (antibiotic, anti-inflammatory) -Start documented in this encounter Progress Notes Krystin Christie APRN CNP - 04/07/2017 2:40 PM CDT SUBJECTIVE: Becki Ridley is a 62 year old female who presents to clinic today for the following health issues: RESPIRATORY SYMPTOMS ?? Duration: 2-3 weeks ?? Description nasal congestion, rhinorrhea, facial pain/pressure, cough, wheezing, ear pain bilateral, fatigue/malaise and myalgias ?? Severity: moderate to severe ?? Accompanying signs and symptoms: bronchitis Dx at ER on 1 week ago Monday. Breath and cough taste chorldine bleach ?? Hard to sleep at night. Hard to breathe, very winded with movement activities ?? History (predisposing factors): asthma and lung therapy ?? Precipitating or alleviating factors: None ?? Therapies tried and outcome: rest and fluids doxycycline, prednisone ROS: const/heent/resp/cv otherwise negative OBJECTIVE: BP 108/80 Pulse 83 Temp 97.9 ??F (36.6 ??C) (Oral) Wt 188 lb (85.3 kg) SpO2 97% BMI 33.3 kg/m2 CONSTITUTIONAL: Appears very fatigued. Alert, well-nourished, well-groomed, NAD RESP: Lungs with rhonchi and wheezing throughout. No rales heard but difficult to hear with wheezing. CV: HRRR S1 S2 No MRG. No peripheral edema HEENT: Eyes: Conjunctiva pink and moist. Ears: Ear canals unremarkable. TMs pearly garcia bilaterally.Bony landmarks and light reflexes intact. No erythema. Nose: Turbinates pink and moist. Throat: OP pink and moist. No tonsillar enlargement or exudates. No postnasal drip. Neck: No lymphadenopathy or masses. Thyroid smooth, non-tender, and non-enlarged. ASSESSMENT/PLAN: (R05) Cough (primary encounter diagnosis) Comment: Patient with ongoing bronchitis with wheezing not responsive to doxy. Sugars are also uncontrolled so difficult to treat with steroids. XR without signs of pneumonia. By the end of the visit, pt complaining of worsening shortness of breath and did not appear well so was sent to the ED for further evaluation. Plan: predniSONE (DELTASONE) 20 MG tablet, DISCONTINUED: azithromycin (ZITHROMAX) 250 MG Tablet, XR Chest 2 Views, CBC with platelets differential (E11.65) Type 2 diabetes mellitus with hyperglycemia, without long-term current use of insulin (H) ISAURO Moreno-SONAM. documented in this encounter Nursing Notes Brigitte Quintero CMA - 04/07/2017 2:40 PM CDT Chief Complaint Patient presents with ??? URI Bronchitis Initial BP 108/80 Pulse 83 Temp 97.9 ??F (36.6 ??C) (Oral) Wt 188 lb (85.3 kg) SpO2 97% BMI 33.3 kg/m2 Estimated body mass index is 33.3 kg/(m^2) as calculated from the following: Height as of 11/02/16: 5' 3 (1.6 m). Weight as of this encounter: 188 lb (85.3 kg). Medication Reconciliation: complete Brigitte Quintero MA// April 07, 2017 3:04 PM documented in this encounter Plan of Treatment Upcoming Encounters Date Type Specialty Care Team Description 05/19/2022 Office Visit ENT Dima Hidalgo M D [phone] (Wo rk) 08/02/2022 Office Visit Neurology Yair Campos MD [address] [place] [phone] (Wo rk) documented as of this encounter Procedures Procedure Name Priority Date/Time Associated Comments Diagnosis CBC WITH PLATELETS & Routine 04/07/2017 3:37 PM Type 2 diabete s Results for this DIFFERENTIAL CDT mellitus with procedure are in hyperglycemia, the results without long-term section. current use of insulin (H) documented in this encounter Results XR Chest 2 Views (04/07/2017 3:42 PM CDT) Anatomical Region Laterality Modality Chest Computed Radiography Specimen (Source) Anatomical Location Collection Method / Collectio n Time Received Time / Laterality Volume Impressions 04/07/2017 4:09 PM CDT IMPRESSION: ??Unremarkable chest. I see no definite change since the previous examination. JOSE ALFREDO TRENT MD Narrative 04/07/2017 4:09 PM CDT CHEST TWO VIEWS ?? 04/07/2017 3:42 PM HISTORY: ??Cough. COMPARISON: ??03/29/2017 FINDINGS: ??The heart size is normal. No mediastinal pathology is seen. The lungs are clear. The pulmonary vascu lature is normal. No pneumothorax or pleural effusion is seen . Procedure Note Jose Alfredo Trent MD - 04/07/2017Fo rmatting of this note might be different from the original. CHEST TWO VIEWS 04/07/2017 3:42 PM HISTORY: Cough. COMPARISON: 03/29/2017 FINDINGS: The heart size is normal. No m ediastinal pathology is seen. The lungs are clear. The pulmonary vascu lature is normal. No pneumothorax or pleural effusion is seen . IMPRESSION: Unremarkable chest. I see no definite change since the previous examination. JOSE ALFREDO TRENT MD Krystin Christie CASTING OPERATOR ACID CONDENSER IMG DIAGNOSTIC IMAGING ORDERABLES CBC with platelets differential (04/07/2017 3:37 PM CDT) [facility] Method Time Signature WBC 10.1 4.0 - 04/07/2017 [facility] 11.0 4:05 PM CDT CLINICS 10e9/L [facility] RBC Count 4.86 3.8 - 5.2 04/07/2017 [facility] 10e12/L 4:05 PM CDT [facility] Hemoglobin 13.7 11.7 - 04/07/2017 [facility] 15.7 g/dL 4:05 PM CDT [facility] Hematocrit 40.2 35.0 - 04/07/2017 [facility] 47.0 % 4:05 PM CDT [facility] MCV 83 78 - 100 04/07/2017 [facility] 4:05 PM CDT [facility] MCH 28.2 26.5 - 04/07/2017 [facility] 33.0 pg 4:05 PM CDT [facility] MCHC 34.1 31.5 - 04/07/2017 [facility] 36.5 g/dL 4:05 PM CDT [facility] RDW 13.6 10.0 - 04/07/2017 [facility] 15.0 % 4:05 PM CDT [facility] Platelet Count 237 150 - 450 04/07/2017 [facility] 10e9/L 4:05 PM CDT [facility] Diff Method Automated 04/07/2017 [facility] Method 4:05 PM CDT [facility] % Neutrophils 44.9 % 04/07/2017 [facility] 4:05 PM CDT [facility] % Lymphocytes 47.3 % 04/07/2017 [facility] 4:05 PM CDT [facility] % Monocytes 6.0 % 04/07/2017 [facility] 4:05 PM CDT [facility] % Eosinophils 1.5 % 04/07/2017 [facility] 4:05 PM CDT [facility] % Basophils 0.3 % 04/07/2017 [facility] 4:05 PM CDT [facility] Absolute 4.5 1.6 - 8.3 04/07/2017 [facility] Neutrophil 10e9/L 4:05 PM CDT [facility] Absolute 4.8 0.8 - 5.3 04/07/2017 [facility] Lymphocytes 10e9/L 4:05 PM CDT [facility] Absolute 0.6 0.0 - 1.3 04/07/2017 [facility] Monocytes 10e9/L 4:05 PM CDT [facility] Absolute 0.2 0.0 - 0.7 04/07/2017 [facility] Eosinophils 10e9/L 4:05 PM CDT [facility] Absolute 0.0 0.0 - 0.2 04/07/2017 [facility] Basophils 10e9/L 4:05 PM CDT [facility] Specimen Anatomical Collection Method Collection Time Receive d Time (Source) Location / / Volume Laterality Blood specimen 04/07/2017 3:37 PM 017 3:42 (specimen) CDT PM CDT Krystin Christie APRN ACID CONDENSER LAB - BLOOD ORDERABLES Performing Organization Address City/State/ZIP Code Phon e Number [address] [address] documented in this encounter Visit Diagnoses Diagnosis Cough - Primary Type 2 diabetes mellitus with hyperglyce sonia, without long-term current use of insulin (H) Type 2 diabetes mellitus with hyperglyce sonia, without long-term current use of insulin (H) documented in this encounter Care Teams Prize Coordinator Relationship Specialty Start Date End Date No Ref-Primary, PCP - General 11/02/16 12/14/17 Physician Tali Vilchis MD MD INTERNAL MEDICINE - 04/10/15 09/17/19 [address] [facility] ENDOCRINOLOGY, DIABETES [address] & [place] [address] Anat Fuller MD Internal Medicine 04/10/1509/16 MD Renee [address] [facility] [address] [place] [address] Janny Hutton, Physician Acoustic Engineer Physician Acoustic Engineer 06/1609/17/19 [place] [address] [facility] [address] [place] [address] documented as of this encounter
--- OUTSIDE RECORDS SUMMARY | 2022-05-09 11:05 | XMS_ITS | Encounter Summary ---
:1955 Author Organization [place] Address Count includes the [facility] [place] [address] Care Team Providers Name Role Phone Aleks Lopez MD Primary Care Provider Tali Vilchis MD Unavailable Anat Fuller MD Unavailable [phone] Janny Hutton PA-C Unavailable [phone] Reason for Visit Reason Comments RECHECK Hypothyroidism Encounter Details Date Type Department Care Team Description 09/28/[address] Alopecia (P rimary Dx); Endocrinology MD Kaitlynn Type 2 diabetes mellitus without complic ation, without long-term current use of insulin (H); [address] [place] [address] History of corticosteroid th erapy; [address] [facility] Morbid obesity, unspecified obesity type (H) [place] [address] [phone] Social History Tobacco Use Types Packs/Day Years Used Date Smoking Tobacco: Never Smokeless Tobacco: Never Alcohol Use Standard Drinks/Week Comments No 0 (1 standard drink = 0.6 oz pure alcoho l) Sex Assigned at Date Recorded Female 08/17/2018 10:39 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 documented as of this encounter Last Filed Vital Signs Vital Sign Reading Time Taken Comments Blood Pressure 155/87 09/28/2016 3:18 PM CDT Pulse 97 09/28/2016 3:18 PM CDT Temperature - - Respiratory Rate - - Oxygen Saturation - - Inhaled Oxygen Concentration - - Weight 88 kg (193 lb 14.4 oz) 09/28/2016 3:18 PM CDT Height 157.5 cm (5' 2) 09/28/2016 3:18 PM CDT Body Mass Index 35.46 09/28/2016 3:18 PM CDT documented in this encounter Patient Instructions Patient InstructionsTali Vilchis MD - 09/28/2016 3:00 PM CDT You should see the eye doctor (deli slicer ) once/year for dilated eye exam to look for diabeteschanges in the eyes. I strongly recommend you use a pill tray to help you remember to take the medication. To expedite your medication refill(s), please contact your pharmacy and have them fax a refill request to: [phone]. *Please allow 3 business days for routine medication refills. *Please allow 5 business days for controlled substance medication refills. For scheduling appointments (including lab work), please request an appointment through [employer], or call: [phone]. For questions for your provider or the endocrine nurse, please send a [employer]shapes message. For after-hours urgent issues, please dial , and ask to speak with the EndocrinologistOn-Call. Please Note: If you are active on Mindshapes, all future test results will be sent by Mind[employer]apes message only and will no longer be sent by mail. You may also receive communication directly from your physician. documented in this encounter Progress Notes Tali Vilchis MD - 09/28/2016 3:00 PM CDT ASSESSMENT/ PLAN: 1. Subclinical hypothyroidism is documented since January,. Biochemically euthyroid on LT4 50 mcg/day. Last TFTS normal 08/09/16. In general, she should Continue to have yearly thyroid function tests for life, or sooner if a concern arises. The doctor who is ordering the labs and seeing you should be the one who is filling the Rxfor levothyroxine. 2. Obesity -She probably has untreated sleep apnea. She is in the process of sleep apnea work up fortreatment. 3. Diabetes mellitus type 2- Poor control. Complicated by fatty liver. Give her new meter today and teach her to use it Consider re-adding Victoza. I believe her insurance will cover it. She might need re-education on how to give this. 4. History of Intermittent steroid treatments for urticaria. She is currently off prednisone 20 mg/day. She doesn't recall when the last injection occurred. Alopecia- labs to include androgens. Tali Vilchis MD CC/HPI. Becki presents today for follow up of subclinical hypothyroidism, DM, intermittent steroidexposures. She is a 61 year old female whom I have seen her infrequently over the years., last time was 2015 In 2009 I started her on L-T4 for treatment of subclinical hypothyroidism, in the hope it might helpher urticaria problem. The treatment probably didn't help the urticaria. The thyroid medication was subsequently by another provider. We restarted the LT4 in 06/30, 50 mcg/day. DM can be documented to at least 2010. She has been treated with metformin, byetta then victoza, then Invokana. She continues to intermittently take steroids for the urticaria This affects the diabetes. She saw Mare Tracey in DM clinic 08/09/16. At that time the A1c was 10.6. Metformin was increased to 2000 mg/day though he rmed list still has the dose at 500 mg/day. She was seen in DM education, Manuel Guallpa RN CDE 08/09/[address]za Lobo RD 08/29/16. Jaden note cited she was taking metformin 500 bid. Today she tells me she is currently taking Metformin 500 X 4 (2000 mg/day) She is not taking anything else for the DM. She can't recall why she isn't on Invokana which I had seen previously on her med list. She can't recall a reason why she isn't on Victoza. Perhaps it was an insurance issue, she couldn't afford the medication. She was checking her BS until she misplaced her BS meter. She doesn't currently have a BS meter. Past Medical History Past Medical History Diagnosis Date ??? Angioedema ??? Arthritis ??? Asthma ??? Blood transfusion ??? Depression ??? Diabetes mellitus (H) sometimes I do ??? Hypertension ??? Lower extremity edema ??? VILLAREAL (nonalcoholic steatohepatitis) ??? Restless legs syndrome ??? Restrictive lung disease ??? Sleep apnea ??? Thyroid disease ? Kidney stone Nonalcoholic fatty liver disease Allergies Allergies Allergen Reactions ??? Cipro [Quinolones] Itching and Difficulty breathing ??? Codeine Sulfate Other (See Comments) Blacked out ??? Vicodin [Hydrocodone-Acetaminophen] Itching and Difficulty breathing ??? Darvocet [Propoxyphene N-Apap] Itching Family History Family History Problem Relation Age of Onset ??? Thyroid Disease Daughter patric thyroiditis ??? Depression Daughter ??? Anxiety Disorder Daughter ??? Depression Mother ??? Dementia Mother ??? Hypertension Mother ??? CANCER Mother ??? Depression Father ??? Hypertension Father ??? Depression Maternal Grandmother ??? Dementia Maternal Aunt ??? Dementia Maternal Aunt ??? Dementia Maternal Aunt ??? Dementia Maternal Aunt + thyroid grandmother, aunts, cousins (2), Social History Social History Substance Use Topics ??? Smoking status: Never Smoker ??? Smokeless tobacco: Never Used ??? Alcohol use No Was on penitentiary disability for 2 years; her insurance company had her apply for social security disability. When she got that, she got on medicare and BCBS supplement. ROS Trying to lose weight - she is down to 193- had been 198 08/02, 206 05/31. She is trying to eat healthy. Stress binges; hasn't been eating int eh middle of the night. Sleep is not good -getting a sleep study ([facility] [place]) follow up tonight. She will be on CPAP Significant hair loss intermittent Tweezes hair on face - spends 15 minutes every couple of days. No acne Cardiac: occasional heart flutter; sharp pain on either side of chest with bending over Respiratory: Reduced exercise tolerance; + DIETZ; takes a neb prior to exercise. Memory issues Nocturia x 0-1 Depression Pain in hands and feet - Hand pain if cold Wearing diabetic shoes. Current Outpatient Prescriptions Medication Sig Dispense Refill ??? metFORMIN (GLUCOPHAGE-XR) 500 MG 24 hr tablet Take 4 tablets (2,000 mg) by mouth daily (with dinner) 120 tablet 11 ??? levothyroxine (SYNTHROID/LEVOTHROID) 50 MCG tablet Take 1 tablet (50 mcg) by mouth daily 90 tablet 3 ??? blood glucose monitoring (SOFTCLIX) lancets Use to test blood sugar 2 times daily or as directed. 2 Box 3 ??? blood glucose monitoring (ACCU-CHEK ANNIE PLUS) test strip Use to test blood sugar 2 times dailyor as directed. 200 each 1 ??? Glucose Blood (BLOOD GLUCOSE TEST STRIPS) STRP Test 2 times daily (strips that go with meter covered by insurance) 200 each 3 ??? blood glucose monitoring (ULTRA THIN 30G) lancets Use to test blood sugar 2 times daily (lancetsthat go with device covered by insurance) 2 Box 3 ??? Blood Glucose Monitoring Suppl (IB STAR) W/DEVICE KIT Any glucose meter covered by insurance use as directed (not store brand) 1 kit 1 ??? PREDNISONE PO Take 20 mg by mouth as needed ??? levocetirizine (XYZAL) 5 MG tablet Take 5 mg by mouth ??? canaliflozin (INVOKANA) tablet Take 300 mg by mouth every morning (before breakfast) ??? ibuprofen (ADVIL,MOTRIN) 200 MG tablet Take 3 tablets (600 mg) by mouth every 8 hours as needed for mild pain 20 tablet 0 ??? busPIRone (BUSPAR) 5 MG tablet Take 5 mg by mouth daily ??? cetirizine (ZYRTEC) 10 MG tablet Take 1 tablet by mouth daily as needed. For hives 90 tablet 3 ??? mometasone (NASONEX) 50 MCG/ACT nasal spray 1 spray by Both Nostrils route every 12 hours. ??? montelukast (SINGULAIR) 10 MG tablet Take 1 tablet by mouth daily. ??? glucose blood test strips (ACCU-CHEK COMPACT TEST DRUM) strip Test twice daily. 1 Box 12 ??? ACCU-CHEK MULTICLIX LANCETS MISC test twice daily. ??? EPINEPHrine (EPIPEN 2-KITTY) 0.3 MG/0.3ML injection Inject 0.3 mg into the muscle once as needed. ??? fluticasone-salmeterol (ADVAIR DISKUS) 500-50 MCG/DOSE diskus inhaler Inhale 1 puff into the lungs every 12 hours. ??? Albuterol Sulfate (VENTOLIN HFA) 108 (90 BASE) MCG/ACT AERS Inhale 2 puffs into the lungs 4 times daily as needed. ??? furosemide (LASIX) 20 MG tablet Take 1 tablet by mouth 2 times daily. ??? Potassium Gluconate 595 MG TABS Take 1 tablet by mouth 2 times daily. She does not use a pill tray Physical Exam BP 155/87 Pulse 97 Ht 1.575 m (5' 2) Wt 88 kg (193 lb 14.4 oz) BMI 35.46 kg/m2 Body mass index is 35.46 kg/(m^2). GENERAL : obese middle aged woman In no apparent distress. SKIN: thin hair on crown of head. Normal color, normal temperature, texture. No gross hirsutism, alopecia or purple striae. EYES: PER, No scleral icterus, No proptosis, conjunctival redness, stare, retraction NECK:THYROID: Not palpable RESP: Lungs clear to auscultation bilaterally CARDIAC: Regular rate and rhythm, normal S1 S2, without murmurs, rubs or gallops NEURO: awake, alert, responds appropriately to questions but is poor historian. Moves all extremities; Gait normal. No tremor of the outstretched hand. DTRs 0/4 , EXTREMITIES: No clubbing, cyanosis or edema. FOOT: no foot ulcers or deformities; pedal pulses 2/4 DP / 1/4 PT; intakct MF 5.07 at 5/5 plantar. Slightly diminished vibratory at medial malleolus. DATA REVIEW: Results for [facility], BECKI Mackey ( ) as of 09/29/2016 11:27 Ref. Range 08/09/2016 12:57 09/28/2016 16:34 Sodium Latest Ref Range: 133 - 144 mmol/L 139 Potassium Latest Ref Range: 3.4 - 5.3 mmol/L 3.8 Chloride Latest Ref Range: 94 - 109 mmol/L 106 Carbon Dioxide Latest Ref Range: 20 - 32 mmol/L 23 Urea Nitrogen Latest Ref Range: 7 - 30 mg/dL 9 Creatinine Latest Ref Range: 0.52 - 1.04 mg/dL 0.47 (L) GFR Estimate Latest Ref Range: >60 mL/min/1.7m2 >90... GFR Estimate If Black Latest Ref Range: >60 mL/min/1.7m2 >90... Calcium Latest Ref Range: 8.5 - 10.1 mg/dL 8.8 Anion Gap Latest Ref Range: 3 - 14 mmol/L 10 Albumin Latest Ref Range: 3.4 - 5.0 g/dL 3.5 Protein Total Latest Ref Range: 6.8 - 8.8 g/dL 7.0 Bilirubin Total Latest Ref Range: 0.2 - 1.3 mg/dL 0.8 Alkaline Phosphatase Latest Ref Range: 40 - 150 U/L 72 ALT Latest Ref Range: 0 - 50 U/L 76 (H) AST Latest Ref Range: 0 - 45 U/L 48 (H) Hemoglobin A1C Latest Ref Range: 4.3 - 6.0 % 9.7 (H) Albumin Urine mg/g Cr Latest Ref Range: 0 - 25 mg/g Cr 9.93 Albumin Urine mg/L Latest Units: mg/L 10 Cortisol Serum Latest Ref Range: 4 - 22 ug/dL 4.9 Creatinine Urine Latest Units: mg/dL 96 Glucose Latest Ref Range: 70 - 99 mg/dL 193 (H) Tali Vilchis MD - 09/28/2016 3:00 PM CDT Receipt /review of sleep medicine note dated 09/28/16. I will send to scan to EMR. Diagnosis: Obstructive sleep anea Periodic limb movement disorder CPAP was recommended. Tali Vilchis MD Review of sleep medicine letter dated 10/14/16 - I will send to scan to EMR Addendum # 2 on 12/21/16: letter from [facility] - dated 12/05/16 - I will send to EMR - diagnosis obstructive sleep apnea. Recommended she continue CPAP. Tali Vilchis MD documented in this encounter Nursing Notes Tenisha Bhardwaj CMA - 09/28/2016 3:00 PM CDT Chief Complaint Patient presents with ??? RECHECK Hypothyroidism Tenisha Bhardwaj CMA documented in this encounter Plan of Treatment Upcoming Encounters Date Type Specialty Care Team Description 05/19/2022 Office Visit [facility] [address] [facility] [address] [place], [place] [address] (Wo rk) 08/02/2022 Office Visit Neurology Yair Campos MD [address] [place] [address] (Wo rk) documented as of this encounter Results Cortisol (09/28/2016 4:34 PM CDT) athologist Signature Cortisol Serum 4.9 4 - 22 [facility] ug/dL [facility] Comment: 8 AM Cortisol Reference Range = 4-22 ug/ dL 4 PM Cortisol Reference Range = 3-17 ug /dL Specimen Anatomical Collection Method Collection Time Receive d Time (Source) Location / / Volume Laterality Blood specimen 09/28/2016 4:34 PM 017 4:35 (specimen) CDT PM CDT Tali Vilchis MD LAB - BLOOD ORDERABLES Performing Organization Address City/State/ZIP Code Phon e Number [facility] [address] [place] [address] [facility] Androstenedione (09/28/2016 4:34 PM CDT) athologist Signature Androstenedione 0.231 [facility] Comment: Reference range: 0.130 to 0.820 Unit: ng/mL (Note) INTERPRETIVE INFORMATION: Androstenedion e, Females 18 years and older Pre-menopausal: 0.26-2.14 ng/mL Post-menopausal: 0.13-0.82 ng/mL REFERENCE INTERVAL: Androstenedione by T MS Access complete set of age- and/or gende r-specific reference intervals for this test in the [facility] Test Directory (Notch). Test developed and characteristics deter mined by [facility]. See Compliance Statement B : Notch/CS Performed by [facility], [address] [place] [address] [email or web address], Asaf Tyler MD, Lab. Director Specimen Anatomical Collection Method Collection Time Receive d Time (Source) Location / / Volume Laterality Blood specimen 09/28/2016 4:34 PM 017 4:35 (specimen) CDT PM CDT Tali Vilchis MD LAB - BLOOD ORDERABLES Performing Organization Address City/State/ZIP Code Phon e Number [facility] [address] [place] [address] [facility] (ABNORMAL) DHEA sulfate (09/28/2016 4:34 PM CDT) P athologist Signature DHEA Sulfate 29 (L) 35 - 430 [facility] ug/dL [facility] Specimen Anatomical Collection Method Collection Time Receive d Time (Source) Location / / Volume Laterality Blood specimen 09/28/2016 4:34 PM 017 4:35 (specimen) CDT PM CDT Tali Vilchis MD LAB - BLOOD ORDERABLES Performing Organization Address City/[facility]/ZIP Code Phon e Number [facility] [address] [place] [address] [facility] Testosterone total (09/28/2016 4:34 PM CDT) Analysis Performed At Patho logist Time Signature Testosterone 18 8 - 60 [facility] Total ng/dL [facility] Comment: This test was developed and its performa nce characteristics determined by the [facility], ??Special Chemistry Laboratory. It has not been cleared or approved by the FDA . The laboratory is regulated under CLIA as qualified to perform high-complexity testing. This test is used for clinical purposes. It should not be regarded as investigational or for research. Specimen Anatomical Collection Method Collection Time Receive d Time (Source) Location / / Volume Laterality Blood specimen 09/28/2016 4:34 PM 017 4:35 (specimen) CDT PM CDT Tali Vilchis MD LAB - BLOOD ORDERABLES Performing Organization Address City/State/ZIP Code Phon e Number [facility] [address] [place] [address] [facility] (ABNORMAL) Hemoglobin A1c (09/28/2016 4:34 PM CDT) Analysis Performed At Patho logist Time Signature Hemoglobin A1C 9.7 (H) 4.3 - 6.0 [facility] Specimen Anatomical Collection Method Collection Time Receive d Time (Source) Location / / Volume Laterality Blood specimen 09/28/2016 4:34 PM 017 4:35 (specimen) CDT PM CDT Tali Vilchis MD LAB - BLOOD ORDERABLES Performing Organization Address City/State/ZIP Code Phon e Number [facility] [address] [place] [address] [facility] documented in this encounter Visit Diagnoses Diagnosis Alopecia - Primary Alopecia, unspecified Type 2 diabetes mellitus without complic ation, without long-term current use of insulin (H) History of corticosteroid therapy Personal history of systemic steroid the rapy Morbid obesity, unspecified obesity type (H) documented in this encounter Care Teams Funeral Home Assistant Relationship Specialty Start Date End Date Aleks Lopez MD PCP - General Family Practice 10/18/14 11/01/16 Tali Vilchis MD MD INTERNAL MEDICINE - 04/10/15 09/17/19 [address] [facility] ENDOCRINOLOGY, DIABETES [address] & METABOLISM [place], [place] [address] Anat Fuller MD Internal Medicine 04/10/1509/16 MD Renee [address] [facility] [address] [place], [place] [phone] Janny Hutton, Physician Rn Renal Physician Rn Renal 06/1609/17/19 PA-C [address] [facility] [address] [place], [place] [phone] documented as of this encounter
--- OUTSIDE RECORDS SUMMARY | 2022-05-09 11:05 | XMS_ITS | Encounter Summary ---
:1955 Author Organization [place] Address [address] [facility] [place] [address] Care Team Providers Name Role Phone Tali Vilchis MD Unavailable Anat Fuller MD Unavailable [phone] aJnny Hutton PA-C Unavailable [phone] No Ref-Primary, Physician Primary Care Provider [phone] Reason for Visit Reason Onset Date Comments Panel Management 09/18/2017 Encounter Details Date Type Department Care Team Description 09/18/2017 Telephone [facility] Krystin Christie Management Lola Engel APRN [facility] [address] [facility] [address] [place] [address] [address] [place] DAV[place]A [address] [place] Davila [id number] [phone] Social History Tobacco Use Types Packs/Day Years Used Date Smoking Tobacco: Never Smokeless Tobacco: Never Alcohol Use Standard Drinks/Week Comments No 0 (1 standard drink = 0.6 oz pure alcoho l) Sex Assigned at Date Recorded Female 08/17/2018 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 Lauren Linares CMA Telephone Encounter - Lauren Linares MA - 09/25/2017 8:23 AM CDT Reminder letter mailed to patient. Lauren Linares CMA Telephone Encounter - Lauren Linares MA - 09/18/2017 2:25 PM CST Panel Management Review Patient has the following on her problem list: Asthma review No flowsheet data found. 1. Is Asthma diagnosis on the Problem List? Yes 2. Is Asthma listed on Health Maintenance? No 3. Patient is due for: ACT and AAP Diabetes ASA: not on med list Last A1C Lab Results Component Value Date [...] readings: BP Readings from Last 3 Encounters: 04/07/17 119/87 04/07/17 108/80 03/29/17 146/71 Date of last diabetes office visit: 04/07/17 Tobacco History: History Smoking Status ??? Never Smoker Smokeless Tobacco ??? Never Used Composite cancer screening Chart review shows that this patient is due/due soon for the following Colonoscopy Summary: Patient is due/failing the following: A1C, AAP, ACT, COLONOSCOPY, FIT and LDL Action needed: Patient needs office visit for diabetes follow up, pre visit labs and MTM co visit. Type of outreach: Phone, left message for patient to call back. Questions for provider review: Does patient need aspirin or statin? I f not please enter not required Lauren Linares CMA Chart routed to Care Team . ERY OR MUSEUM CURATOR documented in this encounter Plan of Treatment Upcoming Encounters Date Type Specialty Care Team Description 05/19/2022 Office Visit ENT Dima Hidalgo M D [address] [address] (Wo rk) 08/02/2022 Office Visit Neurology Yair Campos MD [address] [facility] [address] [place], [place] [address] (Wo rk) documented as of this encounter Visit Diagnoses Not on filedocumented in this encounter Care Teams Seasoner Hand Relationship Specialty Start Date End Date No Ref-Primary, PCP - General 11/02/16 12/14/17 Physician Tali Vilchis MD MD INTERNAL MEDICINE - 04/10/15 09/17/19 [address] [facility] ENDOCRINOLOGY, DIABETES [address] & METABOLISM [place], [place] [phone] Anat Fuller MD Internal Medicine 04/10/1509/16 MD Renee [address] [facility] [address] [place], [place] [phone] Janny Hutton, Physician Mastic Sprayer Physician Mastic Sprayer 06/1609/17/19 PA-C [address] [facility] [address] [place] [address] documented as of this encounter
--- OUTSIDE RECORDS SUMMARY | 2022-05-09 11:05 | XMS_ITS | Encounter Summary ---
:1955 Author Organization [place] Address [address] [place] [address]. [place] [address] Care Team Providers Name Role Phone Aleks Lopez MD Primary Care Provider Tali Vilchis MD Unavailable Anat Fuller MD Unavailable [phone] Janny Hutton PA-C Unavailable [phone] No Ref-Primary, Physician Primary Care Provider [phone] Krystin Christie APRN STUDENT DEVELOPMENT DEAN Primary Care Provider [phone] Comfort Nichols MD Unavailable Florecita Bryan RN Unavailable Krystin Christie APRN, CNP Unavailable [phone] Comfort Nichols MD Unavailable Krystin Christie APRN, CNP Unavailable [phone] Encounter Details Date Type Department Care Team Description 10/14/2016 Medical Correspondence [facility] Scan, Shoulder Tap Info Mgmt Non-Provider EQUIPMENT ( DME) Srvcs ORDERS [address] [place] [address] [place] [phone] Social History Tobacco Use Types Packs/Day Years Used Date Smoking Tobacco: Never Smokeless Tobacco: Never Alcohol Use Standard Drinks/Week Comments No 0 (1 standard drink = 0.6 oz pure alcoho l) Sex Assigned at Date Recorded Female 08/17/2018 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 documented as of this encounter Plan of Treatment Upcoming Encounters Date Type Specialty Care Team Description 05/19/2022 Office Visit ENT Dima [facility]idalgo M D [address] [facility] [address] [place], [place] [address] (Wo rk) 08/02/2022 Office Visit Neurology Yair Campos MD [address] [facility] [place] [address] (Wo rk) documented as of this encounter Visit Diagnoses Not on filedocumented in this encounter Care Teams Farm Manager Relationship Specialty Start Date End Date Aleks Lopez MD PCP - General Family Practice 10/18/14 11/01/16 No Ref-Primary, PCP - General 11/02/16 12/14/17 Physician Krystin Christie PCP - General Nurse Practitioner 12/15/17 09/08/19 SAURABH Engel STUDENT DEVELOPMENT DEAN [address] [facility] [place] [id number] Comfort Nichols MD PCP - Assigned PCP 04/08/18 08/25/18 [address] [facility] [place] [id number] Krystin Christie PCP - Assigned PCP 08/26/18 09/18/18 SAURABH Engel STUDENT DEVELOPMENT DEAN [address] [facility] [place] [address] Tali Vilchis MD INTERNAL MEDICINE - 04/10/15 ENDOCRINOLOGY, DIABETES [address] [facility] MMC & METABOLISM [address] [place], [place] [address] Anat Fuller MD Internal Medicine 04/10/1509/16 MD Renee [address] [facility] [address] [place] [address] Janny Hutton Physician Grounds Maintenance Worker Physician Grounds Maintenance Worker 06/30/15 09/17/19 CARLA Mckeon [address] [facility] EMERGENCY DEPARTMENT [address] [place], [place] [address] Florceita Bryan, RN Lead Slot Operations Director 08/17/18 10/24/18 Comfort Nichols MD Assigned PCP 04/08/18 08/25/18 [address] [facility] [place] [address] Krystin Christie Assigned PCP 08/26/18 01/28/21 SAURABH Engel STUDENT DEVELOPMENT DEAN [address] [facility] [place] [address] documented as of this encounter
--- OUTSIDE RECORDS SUMMARY | 2022-05-09 11:05 | XMS_ITS | Encounter Summary ---
:1955 Author Organization [place] Address [address] [place] [address] Care Team Providers Name Role Phone Aleks Lopez MD Primary Care Provider Tali Vilchis MD Unavailable Anat Fuller MD Unavailable [phone] Janny Hutton PA-C Unavailable [phone] Encounter Details Date Type Department Care Team Description 09/28/2016 Orders Only [facility] Type 2 diabetes mellitus wit hout complication, without long-term current use of insulin (H); [address] 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 current use of insulin (H) Alopecia HEMOGLOBIN A1C Routine 09/28/2016 4:34 PM Type 2 diabetes Resu lts for this CDT mellitus without procedure a re in complication, the results without long-term section. current use of insulin (H) Alopecia DHEA SULFATE Routine 09/28/2016 4:34 PM Type 2 diabetes Result s for this CDT mellitus without procedure a re in complication, the results without long-term section. current use of insulin (H) Alopecia CORTISOL Routine 09/28/2016 4:34 PM Type 2 diabetes Result s for this CDT mellitus without procedure a re in complication, the results without long-term section. current use of insulin (H) Alopecia ANDROSTENEDIONE Routine 09/28/2016 4:34 PM Type 2 diabetes Res ults for this CDT mellitus without procedure a re in complication, the results without long-term section. current use of insulin (H) Alopecia documented in this encounter Results Cortisol (09/28/2016 4:34 PM CDT) athologist Signature Cortisol Serum 4.9 4 - 22 [facility] ug/dL [facility] Comment: 8 AM Cortisol Reference Range = 4-22 ug/ dL 4 PM Cortisol Reference Range = 3-17 ug /dL Specimen Anatomical Collection Method Collection Time Receive d Time (Source) Location / / Volume Laterality Blood specimen 09/28/2016 4:34 PM 017 4:35 (specimen) CDT PM CDT Tali Vilchis MD LAB - BLOOD ORDERABLES Performing Organization Address City/State/ZIP Code Phon e Number [facility] [address] [place], [place] [phone] [place] [address] Androstenedione (09/28/2016 4:34 PM CDT) athologist Signature Androstenedione 0.[address] [facility] Comment: Reference range: 0.130 to 0.820 Unit: ng/mL (Note) INTERPRETIVE INFORMATION: Androstenedion e, Females 18 years and older Pre-menopausal: 0.26-2.14 ng/mL Post-menopausal: 0.13-0.82 ng/mL REFERENCE INTERVAL: Androstenedione by T MS Access complete set of age- and/or gende r-specific reference intervals for this test in the [facility] Test Directory ([facility]). Test developed and characteristics deter mined by Location. See Compliance Statement B : [facility]/CS Performed by Location, [address] [place] [address] [email or web address], Asaf Tyler MD, Lab. Director Specimen Anatomical Collection Method Collection Time Receive d Time (Source) Location / / Volume Laterality Blood specimen 09/28/2016 4:34 PM 017 4:35 (specimen) CDT PM CDT Tali Vilchis MD LAB - BLOOD ORDERABLES Performing Organization Address City/[facility]/ZIP Code [place] [address] [facility] (ABNORMAL) DHEA sulfate (09/28/2016 4:34 PM CDT) P athologist Signature DHEA Sulfate 29 (L) 35 - 430 [facility] ug/dL [facility] Specimen Anatomical Collection Method Collection Time Receive d Time (Source) Location / / Volume Laterality Blood specimen 09/28/2016 4:34 PM 017 4:35 (specimen) CDT PM CDT Tali Vilchis MD LAB - BLOOD ORDERABLES Performing Organization Address City/[facility]/ZIP Code Phon e Number [facility] [address] [place] [address] [facility] Testosterone total (09/28/2016 4:34 PM CDT) Analysis Performed At Patho logist Time Signature Testosterone 18 8 - 60 [facility] Total ng/dL [facility] Comment: This test was developed and its performa nce characteristics determined by the [facility], ??Special Chemistry Laboratory. It has not been [...] Address City/State/ZIP Code Phon e Number [facility] [address] [place] [address] [facility] (ABNORMAL) Hemoglobin A1c (09/28/2016 4:34 PM CDT) Analysis Performed At Patho logist Time Signature Hemoglobin A1C 9.7 (H) 4.3 - 6.0 [facility] Specimen Anatomical Collection Method Collection Time Receive d Time (Source) Location / / Volume Laterality Blood specimen 09/28/2016 4:34 PM 017 4:35 (specimen) CDT PM CDT Tali Vilchis MD LAB - BLOOD ORDERABLES Performing Organization Address City/State/ZIP Code Phon e Number [facility] [address] [place] [address] [facility] documented in this encounter Visit Diagnoses Diagnosis Type 2 diabetes mellitus without complic ation, without long-term current use of insulin (H) Alopecia Alopecia, unspecified documented in this encounter Care Teams Managed Care Nurse Relationship Specialty Start Date End Date Aleks Lopez MD PCP - General Family Practice 10/18/14 11/01/16 Tali Vilchis MD MD INTERNAL MEDICINE - 04/10/15 09/17/19 [address] [facility] ENDOCRINOLOGY, DIABETES [address] & METABOLISM [place], [place] [phone] Anat Fuller MD Internal Medicine 04/10/1509/16 MD [address] [facility] [address] [place] [address] Janny Hutton, Physician Tube Lancer Physician Tube Lancer 06/1609/17/19 PA-C [address] [facility] [address] [place] [address] documented as of this encounter
--- OUTSIDE RECORDS SUMMARY | 2022-05-09 11:05 | XMS_ITS | Encounter Summary ---
:1955 Author Organization [place] Address [address] [facility] [place] [address] Care Team Providers Name Role Phone Tali Vilchis MD Unavailable Anat Fuller MD Unavailable [phone] Janny Hutton PA-C Unavailable [phone] No Ref-Primary, Physician Primary Care Provider [phone] Reason for Visit Reason Comments Medication Refill metFORMIN Encounter Details Date Type Department Care Team Description 09/30/2017 Refill M [facility] Endocrinolo gy Tali Vilchis, Medication Refill [address] 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 Appointment due. Labs due- A1C, Mircroalbumin, LDL *Scheduling has been notified to contact the pt for appointment. documented in this encounter Plan of Treatment Upcoming Encounters Date Type Specialty Care Team Description 05/19/2022 Office Visit [facility] M [facility] [address] [facility] [address] [place] [place] [address] (Wo rk) 08/02/2022 Office Visit Neurology Yair Campos MD [address] [facility] [place] [address] (Wo rk) documented as of this encounter Visit Diagnoses Diagnosis Type 2 diabetes mellitus without complic ation, without long-term current use of insulin (H) Alopecia Alopecia, unspecified History of corticosteroid therapy Personal history of systemic steroid the rapy Morbid obesity, unspecified obesity type (H) documented in this encounter Care Teams Business Development Intern Relationship Specialty Start Date End Date No Ref-Primary, PCP - General 11/02/16 12/14/17 Physician Tali Vilchis MD MD INTERNAL MEDICINE - 04/10/15 09/17/[address] [place] [address] ENDOCRINOLOGY, DIABETES [address] & METABOLISM [place], [place] [address] Anat Fuller MD Internal Medicine 04/10/1509/16 MD Renee [address] [facility] [address] [place], [place] [address] Janny Hutton, Physician Fruit Grower Physician Fruit Grower 06/1609/17/19 CARLA [address] [facility] [address] [place], [place] [address] documented as of this encounter
--- OUTSIDE RECORDS SUMMARY | 2022-05-09 11:05 | XMS_ITS | Encounter Summary ---
:1955 Author Organization [facility] Address [address] [facility] [place] [address] Care Team Providers Name Role Phone Tali Vilchis MD Unavailable Anat Fuller MD Unavailable [phone] Janny Hutton PA-C Unavailable [phone] No Ref-Primary, Physician Primary Care Provider [phone] Reason for Visit Reason Comments Urgent Care Back Pain all over back pain, radiates down arms, up neck, and legs. Pain is intermittent, sharp, rates 9 . No obvious injury. OTC: IBU Encounter Details Date Type Department Care Team Description 11/09/2016 Office Visit [facility] Brock Man M D Bilateral back pain, Urgent Care [place] [address] unspecified back [address] [address] location, unspecified [facility] [address] [place], [place] chronicity (Primary Dx) [address] [id number] [place] [phone] Social History Tobacco Use Types Packs/Day Years Used Date Smoking Tobacco: Never Smokeless Tobacco: Never Alcohol Use Standard Drinks/Week Comments No 0 (1 standard drink = 0.6 oz pure alcoho l) Sex Assigned at Date Recorded Female 08/17/2018 10:39 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 follow up with a primary care provider for further evaluation. Place heat over the painful areas of the back (for about 15 minutes at a time, every 3-4 hours whileawake. Back Care Tips Caring for your back These are things you can do to prevent a recurrence of acute back pain and to reduce symptoms from chronic back pain: ?? Maintain a healthy weight. If you are overweight, losing weight will help most types of back pain. ?? Exercise is an important part of recovery from most types of back pain. The back is supported by the muscles behind and in front of the spine. This means both the back muscles and the abdominal muscles must be strengthened to provide better support for your spine.? Swimming and brisk walking are good overall exercises to improve your fitness level. ?? Practice safe lifting methods (below). ?? Practice good posture when sitting, standing and walking. Avoid prolonged sitting. This puts morestress on the lower back than standing or walking. ?? Wear quality shoes with sufficient arch support. Foot and ankle alignment can affect back symptoms. Women should avoid high heels. ?? Therapeutic massage can help?relax the back muscles without stretching them. ?? During the first 24 to 72 hours after an acute injury or flare-up of chronic back pain, apply an ice pack to the painful area for 20 minutes and then remove it for 20 minutes over a period of 60 to 90 minutes or several times a day. As a safety precaution, do not use a heating pad at bedtime. Sleeping on a heating pad can lead to skin gomez or tissue damage. ?? Ice and heat therapies can be alternated. Medications Talk to your doctor before using medications, especially if you have other medical problems or are taking other medicines. ?? You may use acetaminophen or ibuprofen to control pain, unless other pain medicine was prescribed. If you have chronic conditions like diabetes, liver or kidney disease, stomach ulcers or gastrointestinal bleeding, or are taking blood thinners, talk with your doctor before taking any meidcations. ?? Be careful if you are given prescription pain medicines, narcotics, or medication for muscle spasm. They can cause drowsiness, affect your coordination, reflexes and judgment. Do not drive or operate heavy machinery. Lumbar stretch Here is a simple stretching exercise that will help relax muscle spasm and keep your back more limber. If exercise makes your back pain worse, don???t do it. ?? Lie on your back with your knees bent and both feet on the ground. ?? Slowly raise your left knee to your chest as you flatten your lower back against the floor. Hold for 5 seconds. ?? Relax and repeat the exercise with your right knee. ?? Do 10 of these exercises for each leg. Safe lifting method ?? Don???t bend over at the waist to lift an object off the floor.?? Instead, bend your knees and hips in a squat.? Keep your back and head upright ?? Hold the object close to your body, directly in front of you. ?? Straighten your legs to lift the object.? Lower the object to the floor in the reverse fashion. ?? If you must slide something across the floor, push it. Posture tips Sitting Sit in chairs with straight backs or low-back support. rKeep your k nees lower than your hip, with your feet flat on the floor. When driving, sit up straight. Adjust the seat forward so you are not leaning toward the steering wheel.?? A small pillow or rolled towel behind your lower back may help if you are driving long distances.?? Standing When standing for long periods, shift most of your weight to one leg at a time. Alternate legs everyfew minutes.?? Sleeping The best way to sleep is on your side with your knees bent. Put a low pillow under your head to support your neck in a neutral spine position. Avoid thick pillows that bend your neck to one side. Put apillow between your legs to further relax your lower back. If you sleep on your back, put pillows under your knees to support your legs in a slightly flexed position. Use a firm mattress. If your mattress sags, replace it, or use a 1/2-inch plywood board under the mattress to add support. Follow-up care Follow up with your??health care provider??or as directed by our staff. If X-rays, a CT scan or an MRI scan were taken, they will be reviewed by a radiologist. You will be notified of any new findings that may affect your care. Call 911 Seek emergency medical care if any of the following occur: ?? Trouble breathing ?? Confusion ?? Very drowsy or trouble breathing ?? Fainting or loss of consciousness ?? Rapid or very slow heart rate ?? Loss of?? bwel or bladder control When to seek medical care Call your health care provider if any of the following occur: ?? Pain becomes worse or spreads to your arms or legs ?? Weakness or numbness in one or both arms or legs ?? Numbness in the groin area ?? 9086-9397 [employer]. [address] [place] [address], [place] [address]. All rights reserved. This information is not intended as a substitute for professional medical care. Always follow your healthcare professional's instructions. Caring for Your Back Throughout the Day Take care of your back throughout the day. You will likely have fewer back problems if you do. Try to warm up before you move. Shift positions often. Also do your best to form healthy habits. Warm up for the day Do a few slow, catlike stretches before starting your day. This simple warmup can soften your disks,stretch your back muscles, and help prevent injuries. Shift positions often At work and at home, change positions often. This helps keep your body from getting stiff. Stand up or lean back while you sit. If you can, get up and move every 1/2 hour. Form healthy habits Here are some suggestions:? Keep a healthy weight. When you weigh too much, your back is under excess strain. But losing marisol few extra pounds can help a lot. ?? Try not to overeat. Learn about serving sizes. The size of a serving depends on the food and the food group. Many foods list serving sizes on the labels. ?? Handle minor aches with cold and heat. Apply cold the first 24 to 48 hours. Use heat after that. Always place a thin cloth between your skin and the source of cold or heat. ?? Take??medicines as directed. This helps keep pain under control. Always read labels, and call your??healthcare provider??or pharmacist if you have any questions. Walk each day A daily walk keeps your back and thigh muscles stretched and strong. This gives your back better support. Be sure to walk with your spine???s three curves aligned, by keeping your head, hips, and toes connected by a vertical line. ?? [phone] [employer]. [address] [place] [address]. All rights reserved. This information is not intended as a substitute for professional medical care. Always follow your healthcare professional's instructions. Back Exercises: Bridge The bridge exercise strengthens your abdominal, buttock, and hamstring muscles. This helps keep yourback stable and aligned when you walk. ?? Lie on the floor with your back and palms flat. Bend your knees. Keep your feet flat on the floor. ?? Contract your abdominal and buttock muscles. Slowly lift your buttocks off the floor until there is a straight line from your knees to your shoulders. ?? Hold for??5 to 15?seconds. Repeat??5 to10??times. ?? [employer]. [address] [place] [address]. All rights reserved. This information is not intended as a substitute for professional medical care. Always follow your healthcare professional's instructions. Back Exercises: Back Release Do this exercise on your hands and knees. Keep your knees under your hips and your hands under your shoulders. ?? Relax your abdominal and buttocks muscles, lift your head, and let your back sag. Be sure to keepyour weight evenly distributed. Don???t sit back on your hips. ?? Hold for??5??seconds. ?? Return to starting position. ?? Tuck your head and lift (arch) your back. ?? Hold for 5 seconds ?? Return to starting position. ?? Repeat??5??times. ?? [phone] [employer]. [address] [place] [address]. All rights reserved. This information is not intended as a substitute for professional medical care. Always follow your healthcare professional's instructions. Back Exercises: Back Press Do this exercise on your hands and knees. Keep your knees under your hips and your hands under your shoulders. Keep your spine in a neutral position (not arched or sagging). Be sure to maintain your neck???s natural curve: ?? Tighten your??stomach and buttock muscles to press your back upward. Let your head drop slightly. ?? Hold for??5??seconds. Return to starting position. ?? Repeat??5??times. ?? [id number] [employer]. [address] [place] [address]. All rights reserved. This information is not intended as a substitute for professional medical care. Always follow your healthcare professional's instructions. Back Exercises: Arm Reach Do this exercise on your hands and knees. Keep your knees under your hips and your hands under your shoulders. Keep your spine in a neutral position (not arched or sagging). Be sure to maintain your neck???s natural curve: ?? Stretch one arm straight out in front of you. Don???t raise your head or let your supporting shoulder sag. ?? Hold for??5??seconds. ?? Return to starting position. ?? Repeat??5 times. ?? Switch arms. ?? [employer]. [address] [place] [address]. All rights reserved. This information is not intended as a substitute for professional medical care. Always follow your healthcare professional's instructions. Shoulder Girdle Stretch To start, sit in a chair with your feet flat on the floor. Your weight should be slightly forward sothat you???re balanced evenly on your buttocks. Relax your shoulders and keep your head level. Usinga chair with arms may help you keep your balance: ?? Place??1 hand on the outside elbow of the other arm. ?? Pull the arm across your body. Hold for??30 to 60 seconds.??Repeat once. ?? Switch sides. For your safety, check with your healthcare provider before starting an exercise program. ?? [phone] [employer]. [address] [place] [address]. All rights reserved. This information is not intended as a substitute for professional medical care. Always follow your healthcare professional's instructions. Shoulder??Exercises To start, sit in a chair with your feet flat on the floor. Your weight should be slightly forward sothat you???re balanced evenly on your buttocks. Relax your shoulders and keep your head level. Avoidarching your back or rounding your shoulders. Using a chair with arms may help you keep your balance. ?? Raise your arms, elbows bent, to shoulder height. ?? Slowly move your forearms together. Hold for??5??seconds. ?? Return to starting position. Repeat??5??times. ?? [phone] [employer]. [address] [place] [address]. All rights reserved. This information is not intended as a substitute for professional medical care. Always follow your healthcare professional's instructions. Shoulder Shrug Exercise To start, sit in a chair with your feet flat on the floor. Shift your weight slightly forward to avoid rounding your back. Relax. Keep your ears, shoulders, and hips aligned: ?? Raise both of your shoulders as high as you can, as if you were trying to touch them to your ears. Keep your head and neck still and relaxed. ?? Hold for a count of??10.??Release. ?? Repeat??5??times. For your safety, check with your healthcare provider before starting an exercise program. ?? 8614-4603 [employer]. [address] [place] [address]. All rights reserved. This information is not intended as a substitute for professional medical care. Always follow your healthcare professional's instructions. Shoulder Squeeze Exercise To start, sit in a chair with your feet flat on the floor. Shift your weight slightly forward to avoid rounding your back. Relax. Keep your ears, shoulders, and hips aligned: ?? Raise your arms to shoulder height, elbows bent and palms forward. ?? Move your arms back, squeezing your shoulder blades together. ?? Hold for??10??seconds. Return to starting position.? Repeat??5 times.?? For your safety, check with your healthcare provider before starting an exercise program. ?? [phone] [employer]. [address] [place] [address]. All rights reserved. This information is not intended as a substitute for professional medical care. Always follow your healthcare professional's instructions. Back Safety: Getting Into and Out of Bed Good posture protects your back when you sit, stand, and walk. It is also important while getting into and out of bed. Follow the steps below to get out of bed. Reverse them to get into bed. Safety tip: Sit at the side of the bed for a few seconds before standing up. Then, after you stand up, wait a moment before walking to be sure you???re not dizzy. Roll onto your side. 1. Roll onto your side ?? Keep your knees together. ?? Flatten your stomach muscles to keep your back from arching. ?? Put your hands on the bed in front of you. Raise your body. 2. Raise your body ?? Push your upper body off the bed as you swing your legs to the floor. ?? Keeping your back straight, move your whole body as one unit. Don???t bend or twist at the waist. ?? Let the weight of your legs help you move. Stand up. 3. Stand up ?? Lean forward from your hip and roll onto the balls of your feet. ?? Flatten your stomach muscles to keep your back from arching. ?? Using your arm and leg muscles, push yourself to a standing position. ?? [phone] [employer]. [address] [place] [address]. All rights reserved. This information is not intended as a substitute for professional medical care. Always follow your healthcare professional's instructions. documented in this encounter Progress Notes Brock Man MD - 11/09/2016 2:35 PM CDT SUBJECTIVE: Becki Ridley is a 61 year old female--She currently does not have a primary care provider--presenting with a chief complaint of atraumatic, generalized back pain (pain ratin out of 10) with radiation of pain to right upper arm, to the right elbow, right forearm, up the posterior neck, down the right buttock, right hamstring Onset of symptoms was two weeks ago. The pain is worse when sitting, standing and better when lying down on her back. In addition, bending forward worsens the back pain. Course of illness is worsening. Severity severe. Current and Associated symptoms: as listed above. No coughing/shortness of breath. Treatment measures tried include Ibuprofen, Flexeril without any pain relief. Predisposing factors include patient has a h/o arthritis in the hands, feet, toes. Patient was evaluated at the [facility] emergency room on November 02, 2016, with a one-week c/o one week of worsening, atraumatic right upper back pain radiating to the right shoulder, right neck, right arm, and down the back. No relief with Ibuprofen. Exam was significant for tenderness over the right scapula, over the paraspinous muscles right of the spine and right mid-upper arm. No bony tenderness from that exam. The chest x-ray showed patchy opacities at the right lungbase. EKG, complete blood cell count, Total CK, Troponin I, D-Dimer were negative. The basic metabolic panel was mostly normal. Patient was given Rx's for Azithromycin and Flexeril. Patient lifts her grandchild with her right arm from time to time. No other frequent lifting with her arms. Past Medical History: Diagnosis Date ??? Angioedema ??? Arthritis ??? Asthma ??? Blood transfusion ??? Depression ??? DM2 (diabetes mellitus, type 2) (H) ??? Hypertension ??? Lower extremity edema ??? VILLAREAL (nonalcoholic steatohepatitis) ??? Restless legs syndrome ??? Restrictive lung disease ??? Sleep apnea ??? Subclinical hypothyroidism 2010 Current Outpatient Prescriptions Medication Sig Dispense Refill ??? blood glucose monitoring (JAYLENE CONTOUR NEXT) test strip Use to test blood sugar 2 times daily or as directed. 200 each 3 ??? blood glucose monitoring (JAYLENE MICROLET) lancets Use to test blood sugar 2 times daily or as directed. 4 Box 3 ??? metFORMIN (GLUCOPHAGE-XR) 500 MG 24 [...] tablet Take 5 mg by mouth ??? ibuprofen (ADVIL,MOTRIN) 200 MG tablet Take [...] Subcutaneous daily (Patient not taking: Reported on 11/09/2016) 9 mL 3 Social History Substance Use Topics ??? Smoking status: Never Smoker ??? Smokeless tobacco: Never Used ??? Alcohol use No ROS: Review of systems negative except as stated above. OBJECTIVE :BP 122/64 (BP Location: Right arm, Patient Position: Chair, Cuff Size: Adult Regular) Pulse 82 Wt 193 lb (87.5 kg) SpO2 95% BMI 34.19 kg/m2 GENERAL APPEARANCE: healthy, alert and in severe pain. NEURO: Normal strength and tone, sensory exam grossly normal, mentation intact, speech normal, gait normal including heel/toe/tandem walking, mentation intact, light touch normal at the upper and lowerextremities, normal strength throughout and deep tendon reflexes' 1/4 at the patellas and Achilles. BACK: There is no bony tenderness. No pain over the spinous processes. There is, however, pain over the right rhomboid muscles and over the muscles of the right back and right upper arm. There is normal flexion, normal lateral bending and normal twisting in both directions. There was moderately decreased ROM with extension of the back. STRAIGHT LEG RAISES: Negative. ASSESSMENT: BACK PAIN, most likely secondary to muscle strain and/or spasm. PLAN: Rx: Tramadol (Patient has taken this medication in the past without any adverse effects nor allergicreactions.) (Don't take with Buspirone and with Flexeril) Back exercises were given to the patient. See orders in Epic Place heat over the painful areas follow up with a primary care provider . Patient currently does not have a primary care provider. Possible need also for physical therapy. Patient already had extensive blood work and imaging performed at the emergency room on November 02, 2016. As a result, I did not repeat these studies. Brock Man MD documented in this encounter Nursing Notes Felicita Brown RN - 11/09/2016 2:35 PM CDT Chief Complaint Patient presents with ??? Urgent Care ??? Back Pain all over back pain, radiates down arms, up neck, and legs. Pain is intermittent, sharp, rates 9. Noobvious injury. OTC: IBU Initial BP 122/64 (BP Location: Right arm, Patient Position: Chair, Cuff Size: Adult Regular) Pulse 82 Wt 193 lb (87.5 kg) SpO2 95% BMI 34.19 kg/m2 Estimated body mass index is 34.19 kg/(m^2) as calculated from the following: Height as of 11/02/16: 5' 3 (1.6 m). Weight as of this encounter: 193 lb (87.5 kg). Medication Reconciliation: mariola Brown CMA 11/09/2016 2:49 PM documented in this encounter Plan of Treatment Upcoming Encounters Date Type Specialty Care Team Description 05/19/2022 Office Visit [facility] Dima Hidalgo M D [address] [facility] [place] [place] [address] (Wo rk) 08/02/2022 Office Visit Neurology Yair Campos MD [address] [facility] [place] [address] (Wo rk) documented as of this encounter Visit Diagnoses Diagnosis Bilateral back pain, unspecified back lo cation, unspecified chronicity - Primary documented in this encounter Care Teams Control Clerk Repairs Relationship Specialty Start Date End Date No Ref-Primary, PCP - General 11/02/16 12/14/17 Physician Tali Vilchis MD MD INTERNAL MEDICINE - 04/10/15 09/17/[address] [place] [address] ENDOCRINOLOGY, DIABETES [address] [place] [address] Anat Fuller MD Internal Medicine 04/10/1509/16 MD Renee [address] [facility] [address] [place], [place] [id number] Janny Hutton, Physician Field Consultant Physician Field Consultant 06/1609/17/19 PAZachC [address] [facility] [address] [place], [place] [id number] documented as of this encounter
--- OUTSIDE RECORDS SUMMARY | 2022-05-09 11:05 | XMS_ITS | Encounter Summary ---
:1955 Author Organization [facility] Address [address] [place] [address] Care Team Providers Name Role Phone Tali Vilchis MD Unavailable Anat Fuller MD Unavailable [phone] Janny Hutton PA-C Unavailable No Ref-Primary, Physician Primary Care Provider [phone] Reason for Visit Reason Comments Chest Pain Recent URI, but now chest ti ghtness, concurrent SOB. 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 documented as of this encounter Last Filed Vital Signs Vital Sign Reading Time Taken Comments Blood Pressure 119/87 04/07/2017 10:35 PM CDT Pulse - - Temperature 36.8 ??C (98.2 ??F) 04/07/2017 7:44 PM CDT Respiratory Rate 18 04/07/2017 7:44 PM CDT Oxygen Saturation 96% 04/07/2017 10:35 PM CDT Inhaled Oxygen Concentration - - Weight 85.3 kg (188 lb) 04/07/2017 7:43 PM CDT Height 160 cm (5' 3) 04/07/2017 7:43 PM CDT Body Mass Index 33.3 04/07/2017 7:43 PM CDT documented in this encounter Discharge Instructions Discharge InstructionsJimmy Damon MD - 04/07/2017 10:20 PM CDT Discharge Instructions Upper Respiratory Infection The upper respiratory tract includes the sinuses, nasal passages, pharynx, and larynx. A URI, or upper respiratory infection, is an infection of any of the parts of the upper airway. Symptoms include runny nose, congestion, sneezing, sore throat, cough, and fever. URIs are almost always caused by a virus. Antibiotics do not help with viral infections, so are generally not prescribed. A URI is very contagious through coughing and nasal secretions; make sure you wash your hands often and clean surfaces after sneezing, coughing or touching them. While you should start to improve in 3 - 5 days, remember that sometimes a cough can linger for several weeks. Generally, every Emergency Department visit should have a follow-up clinic visit with either a primary or a specialty clinic/provider. Please follow-up as instructed by your emergency provider today. Return to the Emergency Department if: ??? Any of your symptoms get much worse. ??? You seem very sick, like being too weak to get up. ??? You have chest pain or shortness of breath. ??? You have a severe headache. ??? You are vomiting (throwing up) so much you cannot keep fluids or medicines down. ??? You have confusion or seem unusually drowsy. ??? You have a seizure. What can I do to help myself? Fill any prescriptions the provider gave you and take them right away ??? If you have a fever, get plenty of rest and drink lots of fluids, especially water. ??? Using a humidifier or saline nose spray will also help loosen mucous. ??? Clothes or blankets will not change your fever. Do what is comfortable for you. ??? Bathing or sponging in lukewarm water may help you feel better. ??? Acetaminophen (Tylenol??) or ibuprofen (Advil??, Motrin??) will help bring fever down and may help you feel more comfortable. Be sure to read and follow the package directions, and ask your provider if you have questions. ??? Do not drink alcohol. ??? Decongestants may help you feel better. You may use decongestant nose sprays Afrin?? (oxymetazoline) or Rubens-Synephrine?? (phenylephrine hydrochloride) for up to 3 days, or may use a decongestant tablet like Sudafed?? (pseudoephedrine). If you were given a prescription for [...] Two tablets on the 6 tablet 0 03/1804/12/2017 Z-KITTY) 250 MG tablet first day, then one tablet daily for the next 4 days doxycycline Take 1 capsule (100 20 capsule 0 03/30/201703/18 (VIBRAMYCIN) 100 MG mg) by mouth 2 times capsule daily for 10 days predniSONE (DELTASONE) Take 2 tablets (40 6 tablet 0 04/0704/10/2017 20 MG mg) by mouth daily tabletIndications: for 3 days Cough ACCU-CHEK MULTICLIX test twice daily. 0 1 08/17/2018 LANCETS MISC Albuterol Sulfate Inhale 2 puffs into 0 1 10/10/2017 (VENTOLIN HFA) 108 (90 the lungs 4 times BASE) MCG/ACT AERS daily as needed. blood glucose Use to test blood 200 each 1 07/07/201507/2018 monitoring (ACCU-CHEK sugar 2 times daily ANNIE [...] Asthma, Hives needed. For hives fluticasone (FLONASE) [place] 1-2 sprays into 1 Bottle 11 08/17/2018 [...] obesity type (H) metFORMIN Take 4 tablets (2,000 120 tablet 11 09/28/2016 (GLUCOPHAGE-XR) 500 MG mg) by mouth daily 24 hr (with dinner) tabletIndications: Type 2 diabetes mellitus without complication, [...] Take two tablets (= 10 tablet 0 03/1710/10/2017 20 MG tablet 40mg) each day for 5 (five) days traMADol (ULTRAM) 50 MG Take 1-2 tablets 20 tablet 0 201608/17/2018 tabletIndications: (50-100 mg) by mouth Bilateral back pain, every 8 hours as unspecified back needed for severe location, unspecified pain Patient has been chronicity on Tramadol without any adverse effects nor allergic reactions. documented as of this encounter ED Notes Minnie Nance RN - 04/07/2017 9:52 PM CDT I called lab. The BMP and Troponin have approx 11 mins until they are ready. Minnie Nance RN - 04/07/2017 9:49 PM CDT at bedside. Minnie Nance RN - 04/07/2017 9:46 PM CDT Ambulated pt. Pulse ox was 96% during ambulation and HR was 100-106 bpm. Jimmy Damon MD - 04/07/2017 7:23 PM CDT History Chief Complaint: Chest Pain HPI Becki Ridley is a 62 year old female, with a history of hypertension and type 2 diabetes, who presents to the ED for evaluation of chest pain. The patient reports she has chest pain that feels like atight band around her chest region. The patient notes she has shortness of breath. The patient also reports of a cough that has lasted for two weeks. The patient notes she coughs up green phlegm. The patient reports of subjective fevers, chills, and diaphoresis as well. The patient denies any headaches, lightheadedness, dizziness, nausea, vomiting, abdominal pain, leg swelling, numbness, or tingling. CARDIAC RISK FACTORS: Sex: Female Tobacco: No Hypertension: Yes Hyperlipidemia: No Diabetes: Yes Family History: No PE/DVT RISK FACTORS: Sex: Female Hormones: No Tobacco: No Cancer: No Travel: No Surgery: No Other immobilization: No Personal history: No Family history: No Allergies: Cipro Codeine Sulfate Vicodin Darvocet Medications: fluticasone (FLONASE) 50 MCG/ACT spray doxycycline (VIBRAMYCIN) 100 MG capsule traMADol (ULTRAM) 50 MG tablet liraglutide (VICTOZA PEN) 18 MG/3ML soln metFORMIN (GLUCOPHAGE-XR) 500 MG 24 hr tablet levothyroxine (SYNTHROID/LEVOTHROID) 50 MCG tablet levocetirizine (XYZAL) 5 MG tablet ibuprofen (ADVIL,MOTRIN) 200 MG tablet busPIRone (BUSPAR) 5 MG tablet cetirizine (ZYRTEC) 10 MG tablet mometasone (NASONEX) 50 MCG/ACT nasal spray montelukast (SINGULAIR) 10 MG tablet EPINEPHrine (EPIPEN 2-KITTY) 0.3 MG/0.3ML injection fluticasone-salmeterol (ADVAIR DISKUS) 500-50 MCG/DOSE diskus inhaler Albuterol Sulfate (VENTOLIN HFA) 108 (90 BASE) MCG/ACT AERS furosemide (LASIX) 20 MG tablet Potassium Gluconate 595 MG TABS Past Medical History: Angioedema Arthritis Asthma Blood Transfusion Depression Type 2 DM HTN Lower Extremity Edema VILLAREAL RLS Restrictive Lung Disease Sleep Apnea Subclinical Hypothyroidism Urticaria Non-alcoholic fatty liver disease Obesity Past Surgical History: Liver biopsy Family History: Dementia HTN Cancer Depression Anxiety Carmen thyroiditis Social History: Smoking status: Never smoker Alcohol use: No Presents to ED alone Marital Status: [4] Review of Systems Constitutional: Positive for chills, diaphoresis and fever. Respiratory: Positive for cough and shortness of breath. Cardiovascular: Positive for chest pain. Negative for leg swelling. Gastrointestinal: Negative for abdominal pain, nausea and vomiting. Neurological: Negative for dizziness, light-headedness, numbness and headaches. All other systems reviewed and are negative. Physical Exam Patient Vitals for the past 24 hrs: BP Temp Temp src Heart Rate Resp SpO2 Height Weight 04/07/17 2235 119/87 - - - - 96 % - - 04/07/17 2215 - - - - - 97 % - - 04/07/17 2200 - - - - - 95 % - - 04/07/17 2145 - - - - - 94 % - - 04/07/17 2130 - - - - - 95 % - - 04/07/17 2115 - - - - - 95 % - - 04/07/17 2104 - - - - - 97 % - - 04/07/17 1944 117/86 98.2 ??F (36.8 ??C) Oral 94 18 99 % - - 04/07/173 - - - - - - 1.6 m (5' 3) 85.3 kg (188 lb) Physical Exam General: Alert, appears ill. Cooperative. Significant cough sounds productive. HEENT: Head: Atraumatic Ears: External ears are normal Mouth/Throat: Oropharynx is without erythema or exudate and mucous membranes are moist. Eyes: Conjunctivae normal and EOM are normal. No scleral icterus. Pupils are equal, round, and reactive to light. CV: Normal rate, regular rhythm, normal heart sounds and radial and dorsalis pedis pulses are 2+ andsymmetric. No murmur. Resp: Significant crackles to bilateral lobes. No wheezing. Coarse sounds throughout. Non-labored, no retractions or accessory muscle use GI: Abdomen is soft, no distension, no tenderness. No rebound or guarding. MS: Normal range of motion. No edema. Normal strength in all 4 extremities. Back atraumatic. No CVA tenderness. Skin: Warm and dry. No rash or lesions noted. Neuro: Alert. Normal strength. Sensation intact in all 4 extremities. GCS: 15 Psych: Normal mood and affect. Lymph: No anterior or posterior cervical lymphadenopathy noted. Emergency Department Course ECG (19:49:08): Rate 92 bpm. OH interval 130. QRS duration 78. QT/QTc 360/445. P-R-T axes 34 11 40. Normal sinus rhythm. Normal ECG. No significant change compared to EKG dated 11/02/16. Interpreted at 2007 by Jimmy Damon MD. Imaging: Radiographic findings were communicated with the patient who voiced understanding of the findings. No new imaging performed during this visit. Did review CXR from patient's urgent care visit this afternoon. Laboratory: Troponin <0.015 Procedures: None Interventions: Medications ipratropium - albuterol 0.5 mg/2.5 mg/3 mL (DUONEB) neb solution 3 mL (3 mLs Nebulization Given 04/07/172049) Impression & Plan Medical Decision Making: Patient is a 62-year-old female with a history of restrictive lung disease, diabetes and asthma who presents with persistent cough and sputum production over the last two weeks. Patient has had multiple emergency department and urgent care visits over the last two weeks due to persistent symptoms. Patient has undergone a course of antibiotics with doxycycline in addition to a weeklong course of prednisone. Patient has had minimal improvement with these therapies. Patient denies fever although does endorse worsening cough. On my exam patient did have coarse sounds throughout including crackles to bilateral lungs. This may be due to her ulcerative lung disease, but I did not hear significant wheezing concerning for asthma exacerbation. Patient had a chest x-ray hours prior to presenting to the emergency department I was able to review these images as the patient went to a [facility] clinic and thereis no evidence of abscess or acute infiltrate. Patient is already on doxycycline for possible bacterial infection. There is a possibility patient may have a atypical pneumonia particularly in the setting of asthma and restrictive lung disease, patient was given a course of azithromycin to trial for possible improvement. The most likely diagnosis is bronchitis versus sinusitis. 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 Patient has not followed with her blanking machine operator in several months. She is recommended to return to the emergency department if she develops worsening fever, shortness of breath, or worsening chest pain. Patient had a nonischemic EKG and negative troponin here locally in several ACS particularly in the setting of significant infectious presentation with cough and sputum production. Patient was encouraged to follow-up on Monday with her primary care doctor. Understood close return precautions and follow-up instructions prior to discharge. Discharged home. Diagnosis: ICD-10-CM 1. Cough R05 2. SOB (shortness of breath) R06.02 Disposition: Discharged to home Discharge Medications: Discharge Medication List as of 04/07/2017 10:33 PM Kelly Ashlyn 04/07/2017 EMERGENCY DEPARTMENT I, Kelly Goldberg, polo serving as a scribe at 8:08 PM on 04/07/2017 to document services personally performed by Jimmy Damon MD based on my observations and the provider's statements to me. Jimmy Damon MD 04/08/17 0006 documented in this encounter Plan of Treatment Upcoming Encounters Date Type Specialty Care Team Description 05/19/2022 Office Visit ENT Dima Hidalgo M D [address] [place], [place] [address] (Wo rk) 08/02/2022 Office Visit Neurology Yair Campos MD [address] [facility] [address] [place], [place] [address] (Wo rk) documented as of this encounter Procedures Procedure Name Priority Date/Time Associated Diagnosis Comme nts TROPONIN I STAT 04/07/2017 9:03 PM Results f or this CDT procedure are i n the results section. BASIC METABOLIC STAT 04/07/2017 9:03 PM Result s for this PANEL CDT procedure are i n the results section. EKG 12-LEAD, STAT 04/07/2017 7:49 PM Results f or this TRACING ONLY CDT procedure are i n the results section. documented in this encounter Results Troponin I (04/07/2017 9:03 PM CDT) athologist Signature Troponin I ES <0.015 0.000 - 04/07/2017 [place] 0.045 ug/L 10:[address] [facility] Comment: The 99th percentile for upper reference range is 0.045 ug/L. ??Troponin values in the range of 0.045 - 0.120 ug/L may b e associated with risks of adverse clinical events. Specimen Anatomical Collection Method Collection Time Receive d Time (Source) Location / / Volume Laterality Blood specimen 04/07/2017 9:03 PM 017 9:09 (specimen) CDT PM CDT Jimmy Damon MD LAB - BLOOD ORDERABLES Performing Organization Address City/State/ZIP Code Phon e Number M [facility] [address] [address] [phone] [facility] [address] [address], [place] [phone] (ABNORMAL) Basic metabolic panel (04/07/2017 9:03 PM CDT) athologist Signature Sodium 139 133 - 144 04/07/2017 [place] mmol/L 10:04 PM [facility] Potassium 4.1 3.4 - 5.3 04/07/2017 [place] mmol/L 10:04 PM [facility] Chloride 102 94 - 109 04/07/2017 [place] mmol/L 10:04 PM [facility] Carbon Dioxide 25 20 - 32 04/07/2017 [place] mmol/L 10:04 PM [facility] Anion Gap 12 3 - 14 04/07/2017 [place] mmol/L 10:04 PM [facility] Glucose 173 (H) 70 - 99 04/07/2017 [place] mg/dL 10:04 PM [facility] Urea Nitrogen 13 7 - 30 04/07/2017 [place] mg/dL 10:04 PM [facility] Creatinine 0.57 0.52 - 04/07/2017 [place] 1.04 mg/dL 10:04 PM [facility] GFR Estimate >90 >60 04/07/2017 [place] mL/min/1.7 10:[address] Comment: Non GFR Calc GFR Estimate If >90 >60 mL/min/1.7m2 04/07/2017 10:04 PM [facility] Comment: GFR Calc Calcium 8.8 8.5 - 10.1 mg/dL 04/07/2017 10:04 PM [facility] Specimen Anatomical Collection Method Collection Time Receive d Time (Source) Location / / Volume Laterality Blood specimen 04/07/2017 9:03 PM 017 9:09 (specimen) CDT PM CDT Jimmy Damon MD LAB - BLOOD ORDERABLES Performing Organization Address City/State/ZIP Code Phon e Number [facility] [address] [address] [facility] [address] [address], U [phone] EKG 12 lead (04/07/2017 7:49 PM CDT) [facility] gist Method Time Signature Interpretation ECG Click View RADIOLOGY Image link RESULTS to view waveform and result Specimen (Source) Anatomical Collection Method Collection Time Re ceived Time Location / / Volume Laterality 04/07/2017 7:49 PM CDT Cammie Bustamante MD ECG ORDERABLES Performing Organization Address City/State/ZIP Code Phon e Number RADIOLOGY RESULTS documented in this encounter Visit Diagnoses Diagnosis Cough - Primary SOB (shortness of breath) Shortness of breath documented in this encounter Administered Medications Inactive Administered Medications - up to 3 most recent administrations Medication Order MAR Action Action Date Dose Rate Site ipratropium - albuterol 0.5 mg/2.5 Given 04/07/2017 8:50 PM CDT 3 mLs mg/3 mL (DUONEB) neb solution 3 mL 3 mL, Nebulization, EVERY 15 MIN PRN, wheezing, shortness of breath / dyspnea, Starting on Mon04/07/17 at 2028, For 3 doses documented in this encounter Active and Recently Administered Medications Times are shown in CDT. PRN Medication Order 04/05/2017 04/06/2017 04/07/2017 ipratropium - albuterol 0.5 mg/2.5 mg/3 mL (DUONEB) neb solution 3 mL 2049 (Given - Provider: Minnie Nance, RN) 3 mL, Nebulization, EVERY 15 MIN PRN, wh eezing, shortness of breath / dyspnea, Starting Mon04/07/17 at 2028, For 3 doses documented in this encounter Care Teams Dovetailer Relationship Specialty Start Date End Date No Ref-Primary, PCP - General 11/02/16 12/14/17 Physician Tali Vilchis MD MD INTERNAL MEDICINE - 04/10/15 09/17/[address] [place] [address] ENDOCRINOLOGY, DIABETES [address] [place] [address] Anat Fuller MD Internal Medicine 04/10/1509/16 MD Renee [address] [facility] [address] [place] [address] Janny Hutton, Physician Metal Expediter Physician Metal Expediter 06/1609/17/19 CARLA [address] [facility] [address] [place] [address] documented as of this encounter
--- OUTSIDE RECORDS SUMMARY | 2022-05-09 11:05 | XMS_ITS | Encounter Summary ---
:1955 Author Organization [facility] Address [address] [place] [address] Care Team Providers Name Role Phone Tali Vilchis MD Unavailable Anat Fuller MD Unavailable [phone] Janny Hutton PA-C Unavailable [phone] No Ref-Primary, Physician Primary Care Provider [phone] Encounter Details Date Type Department Care Team Description 04/07/2017 Radiant Appointment [facility] Krystin Christie Typ e 2 diabetes Clinic Lola Engel APRN mellitus with [address] SUGAR REFINERY SUPERVISOR hyperglycemia, [address] without long-term [address] 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 JOSE ALFREDO TRENT MD Krystin Engel Pratik AIRCRAFT GENERAL REPAIR MECHANIC SUGAR REFINERY SUPERVISOR IMG DIAGNOSTIC IMAGING ORDERABLES documented in this encounter Visit Diagnoses Diagnosis Type 2 diabetes mellitus with hyperglyce sonia, without long-term current use of insulin (H) documented in this encounter Care Teams Automatic Pad Making Machine Operator Relationship Specialty Start Date End Date No Ref-Primary, PCP - General 11/02/16 12/14/17 Physician Tali Vilchis MD MD INTERNAL MEDICINE - 04/10/15 09/17/19 [address] [facility] ENDOCRINOLOGY, DIABETES [address] & [place] [address] Anat Fuller MD Internal Medicine 04/10/1509/16 MD Renee [address] [facility] [address] [place], [place] [address] Janny Hutton, Physician Regional Dedicated Truck Driver Physician Regional Dedicated Truck Driver 06/1609/17/19 PAZachC [address] [facility] [address] [place], [place] [address] documented as of this encounter
--- OUTSIDE RECORDS SUMMARY | 2022-05-09 11:05 | XMS_ITS | Encounter Summary ---
:1955 Author Organization [place] Address [facility] [place] [address] Care Team Providers Name Role Phone Aleks Lopez MD Primary Care Provider Tali Vilchis MD Unavailable Anat Fuller MD Unavailable [phone] Janny Hutton PA-C Unavailable [phone] No Ref-Primary, Physician Primary Care Provider [phone] Krystin Christie APRN WIPER BLENDER Primary Care Provider [phone] Comfort Nichols MD Unavailable Florecita Bryan RN Unavailable PratikKrystin newby APRN WIPER BLENDER Unavailable [phone] Comfort Nichols MD Unavailable PratikKrystin newby APRN WIPER BLENDER Unavailable [phone] Sonja Tinajero [facility] Unavailable [phone] Kelly De Oliveira [facility] Unavailable Eduin Wilhelm Unavailable Unavailable Cecilia Aleman MD Unavailable [phone] Thalia Glass MD Unavailable [phone] Vinita Linares RN Unavailable Unavailable PratikKrystin newby APRN WIPER BLENDER Primary Care Provider [phone] Deyanira Stewart [facility] Unavailable Nadira Nichols RN Unavailable Unavailable Frank Argueta Unavailable Unavailable Encounter Details Date Type Department Care Team Description 10/03[facility]2016 [facility] 909 [facility] [address] [facility] [address] [place] [address] [place] [address] [phone] Social History Tobacco Use Types Packs/Day Years Used Date Smoking Tobacco: Never Smokeless Tobacco: Never Alcohol Use Standard Drinks/Week Comments No 0 (1 standard drink = 0.6 oz pure alcoho l) Sex Assigned at Date Recorded Female 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 SHe will call them back again to see if not affordable she will let us know ----- Message ----- From: Tali Vilchis MD Sent: 09/30/2016 12:29 PM To: Janny Akins RN Subject: call Please all her and read her the mychart note she hasn't read. I recommend we restart Victoza. She has taken this in the past. Confirm with her is we should get her back for education - I would have low threshold to do this , education on how to do the injections. Tali Vilchis documented in this encounter Plan of Treatment Upcoming Encounters Date Type Specialty Care Team Description 05/19/2022 Office Visit ENT Dima Hidalgo M D [address] [place] [phone] (Wo rk) 08/02/2022 Office Visit Neurology Yair Campos MD 420 [place], [place] [address] (Wo rk) documented as of this encounter Visit Diagnoses Not on filedocumented in this encounter Care Teams Head Screen Worker Relationship Specialty Start Date End Date Aleks Lopez MD PCP - General Family Practice 10/18/14 11/01/16 No Ref-Primary, PCP - General 11/02/16 12/14/17 Physician Krystin Christie PCP - General Nurse Practitioner 12/15/17 09/08/19 SAURABH Engel WIPER BLENDER [address] [facility] [place] [id number] Comfort Nichols MD PCP - Assigned PCP 04/08/18 08/25/18 [facility] [facility] [place] [id number] Krystin Christie PCP - Assigned PCP 08/26/18 09/18/18 SAURABH Engel WIPER BLENDER [address] [facility] [place] [phone] Krystin Christie PCP - General Nurse Practitioner 09/18/19 SAURABH Engel WIPER BLENDER [address] [facility] [place] [phone] Tali Vilchis MD INTERNAL MEDICINE - 04/10/15 ENDOCRINOLOGY, [address] [place] [address] DIABETES & METABOLISM 101 [place], [place] [address] Anat Fuller MD Internal Medicine 04/10/1509/16 MD Renee [address] [place] [address] [address] [place], [place] [address] Janny Hutton Physician Visual Education Teacher Physician Visual Education Teacher 06/30/15 09/17/19 CARLA Mckeon [address] [facility] 803 [place] [address] Florecita Bryan, RN Lead Deployment Specialist 08/17/18 10/24/18 Comfort Nichols MD Assigned PCP 04/08/18 08/25/18 [address] [facility] [place] [address] Krystin Christie Assigned PCP 08/26/18 01/28/21 SAURABH Engel [facility] [address] [facility] [place] [address] Sonja Tinajero Pharmacist Pharmacist 12/24/18 09/17/19 Dev, [facility] [address] [facility] [place] [address] Kelly De Oliveira, Pharmacist Pharmacist 01/21/19 06/24/19 [facility] [address] [place] [address] Eduin Wilhelm Personal Advocate & 06/17/19 09/17/19 Liaison (PAL) Cecilia Aleman MD Urology 07/22/19 09/17/19 MD Lyly [address] [facility] [address] [place] [address] Joan Monroe MD Obstetrics 07/22/19 09/17/19 Thalia Engel MD [address] [place] [address] Vinita Linares RN Registered Nurse 07/22/19 09/17/19 Deyanira Stewart, Pharmacist Pharmacist 01/13/20 08/24/20 [facility] [address] [facility] [place] [address] Nadira Nichols, RN Lead Deployment Specialist Primary Care - CC 01/21/20 03/02/20 Frank Argueta Community Health Worker 01/21/2002/14 documented as of this encounter
--- OUTSIDE RECORDS SUMMARY | 2022-05-09 11:05 | XMS_ITS | Encounter Summary ---
:1955 Author Organization [place] Address [address] [facility] [place] [address] Care Team Providers Name Role Phone Aleks Lopez MD Primary Care Provider Tali Vilchis MD Unavailable Anat Fuller MD Unavailable [phone] Janny Hutton PA-C Unavailable [phone] Reason for Visit Reason Comments Medication Refill Encounter Details Date Type Department Care Team Description 09/28/2016 Refill M [facility] Endocrinolo gy Tali Vilchis MD Medication Refill [address] [place], [place] [address] [place] [address]45 5-4800 [phone] Social History Tobacco Use Types Packs/Day Years Used Date Smoking Tobacco: Never Smokeless Tobacco: Never Alcohol Use Standard Drinks/Week Comments No 0 (1 standard drink = 0.6 oz pure alcoho l) Sex Assigned at Date Recorded Female 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 documented as of this encounter Plan of Treatment Upcoming Encounters Date Type Specialty Care Team Description 05/19/2022 Office Visit ENT Dima Hidalgo M D [address] [facility] [place] [address] (Wo rk) 08/02/2022 Office Visit Neurology Yair Campos MD [address] [place] [address] [place], [place] [address] (Wo rk) documented as of this encounter Visit Diagnoses Diagnosis Type 2 diabetes mellitus without complic ation, without long-term current use of insulin (H) Alopecia Alopecia, unspecified documented in this encounter Care Teams Custom Leather Products Maker Relationship Specialty Start Date End Date Aleks Lopez MD PCP - General Family Practice 10/18/14 11/01/16 Tali Vilchis MD MD INTERNAL MEDICINE - 04/10/15 09/17/19 [address] [facility] ENDOCRINOLOGY, DIABETES 101 & METABOLISM [place], [place] [address] Anat Fuller MD Internal Medicine 04/10/1509/16 MD Renee [address] [facility] [address] [place], [place] [address] Janny Hutton, Physician Senior Production Planner Physician Senior Production Planner 06/1609/17/19 PA-C 420 [facility] 803 [place], [place] [id number] documented as of this encounter
--- OUTSIDE RECORDS SUMMARY | 2022-05-09 11:05 | XMS_ITS | Encounter Summary ---
:1955 Author Organization [place] Address [address] [facility] [address] Care Team Providers Name Role Phone Tali Vilchis MD Unavailable Anat Fuller MD Unavailable [phone] Janny Hutton PA-C Unavailable [phone] No Ref-Primary, Physician Primary Care Provider [phone] Reason for Visit Reason Onset Date Comments Appointment 09/14/2017 needs co visit with LANE, diabetes check Encounter Details Date Type Department Care Team Description 09/14/2017 [facility] Rose Marie Salas Appoin tment (needs co Clinic Lola Arthur [facility] visit with LANE, [address] [place] [address] DR diabetes check) [place] [address] [address] [place] [address] Social History Tobacco Use Types Packs/Day Years Used Date Smoking Tobacco: Never Smokeless Tobacco: Never Alcohol Use Standard Drinks/Week Comments No 0 (1 standard drink = 0.6 oz pure alcoho l) Sex Assigned at Date Recorded Female 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 Left vm for patient to call us back. She is due for a co-visit with Krystin Phan. Telephone Encounter - Catrachita Lopez - 09/21/2017 8:55 AM CST Mailed patient a reminder letter to schedule covisit. IR WEAVER Telephone Encounter - Catrachita Lopez - 09/15/2017 10:45 AM CST Left VM for patient to call us back. She is due for covisit with LANE and Krystin Christie. IR WEAVER Telephone Encounter - Rose Marie Salas RPH - 09/14/2017 12:55 PM REPAIR WEAVER Please call patient to schedule co-visit with LANE and Krystin Christie. IR WEAVER documented in this encounter Plan of Treatment Upcoming Encounters Date Type Specialty Care Team Description 05/19/2022 Office Visit ENT Dima Hidalgo M D [address] [facility] [place], [place] [address] (Wo odette) 08/02/2022 Office Visit Neurology Yair Campos MD 420 [place], [place] [address] (Sarah pino) documented as of this encounter Visit Diagnoses Not on filedocumented in this encounter Care Teams Bookbinder Apprentice Relationship Specialty Start Date End Date No Ref-Primary, PCP - General 11/02/16 12/14/17 Physician Tali Vilchis MD MD INTERNAL MEDICINE - 04/10/15 09/17/[address] [place] [address] ENDOCRINOLOGY, DIABETES 101 & [place] [address] Anat Fuller MD Internal Medicine 04/10/1509/16 MD Renee [address] [place], [place] [address]B [address] [place] [address] Janny Hutton, Physician Ekg Tech Physician Ekg Tech 06/1609/17/19 CARLA COOPER [facility] [address] [place] [address] documented as of this encounter
--- OUTSIDE RECORDS SUMMARY | 2022-05-09 11:05 | XMS_ITS | Encounter Summary ---
:1955 Author Organization [facility] Address [address] [place] [address] Care Team Providers Name Role Phone Tali Vilchis MD Unavailable Anat Fuller MD Unavailable [phone] Janny Hutton PA-C Unavailable [phone] No Ref-Primary, Physician Primary Care Provider [phone] Reason for Visit Reason Comments Cough Prod. green cough for the la st 10 weeks. Concurrent right ear pain, pressure-sharp. Encounter Details Date Type Department Care Team Description 03/29/2017 - [facility] Yaya Fischer Acut e bronchitis, unspecified organism; 03/30/2017 [facility] Acute sinusitis with symptoms > 10 days; Dept [facility] Abdominal pain, right lower quadrant [address] [place] [phone] [place] [address] (Wo rk) Social History Tobacco Use Types Packs/Day Years Used Date Smoking Tobacco: Never Smokeless Tobacco: Never Alcohol Use Standard Drinks/Week Comments No 0 (1 standard drink = 0.6 oz pure alcoho l) Sex Assigned at Date Recorded Female 08/17/2018 10:39 PM [employer] documented as of this encounter Last Filed Vital Signs Vital Sign Reading Time Taken Comments Blood Pressure 146/71 03/29/2017 9:54 PM CDT Pulse - - Temperature 36.6 ??C (97.9 ??F) 03/29/2017 9:54 PM CDT Respiratory Rate 18 03/29/2017 9:54 PM CDT Oxygen Saturation 97% 03/29/2017 9:54 PM CDT Inhaled Oxygen Concentration - - Weight 85.8 kg (189 lb 1.6 oz) 03/29/2017 9:56 PM CDT Height - - Body Mass Index 33.5 11/02/2016 3:40 PM CDT documented in this encounter Discharge Instructions Discharge InstructionsYaya Fischer MD - 03/30/2017 1:54 AM CDT Images from the original note were not included. Abdominal Pain Abdominal pain is pain in the stomach or belly area. Everyone has this pain from time to time. In many cases it goes away on its own. But abdominal pain can sometimes be due to a serious problem, such as appendicitis. So it???s important to know when to seek help. Causes of abdominal pain There are many possible causes of abdominal pain. Common causes in adults include: ?? Constipation, diarrhea, or gas ?? Stomach acid flowing back up into the esophagus (acid reflux or heartburn) ?? Severe acid reflux, called GERD (gastroesophageal reflux disease) ?? A sore in the lining of the stomach or small intestine (peptic ulcer) ?? Inflammation of the gallbladder, liver,??or pancreas ?? Gallstones or kidney stones ?? Appendicitis? Intestinal blockage? An internal organ pushing through a muscle or other tissue (hernia) ?? Urinary tract infections ?? In women, menstrual cramps, fibroids, or endometriosis ?? Inflammation or infection of the intestines Diagnosing the cause of abdominal pain Your healthcare provider will do a physical exam help find the cause of your pain. If needed, tests will be ordered. Belly pain has many possible causes. So it can be hard to find the reason for your pain. Giving details about your pain can help. Tell your provider where and when you feel the pain, and what makes it better or worse. Also let your provider know if you have other symptoms such as: ?? Fever ?? Tiredness ?? Upset stomach (nausea) ?? Vomiting ?? Changes in bathroom habits Treating abdominal pain Some causes of pain need emergency medical treatment right away. These include appendicitis or a bowel blockage. Other problems can be treated with rest, fluids, or medicines. Your healthcare provider can give you specific instructions for treatment or self-care based on what is causing your pain. If you have vomiting or diarrhea,??sip water or other clear fluids. When you are ready to eat solid foods again, start with small amounts of seqi-pg-vllwxl, low- fat foods. These include apple sauce, toast, or crackers. When to seek medical care Call 911??or go to the hospital right away if you: ?? Can???t pass stool and are vomiting ?? Are vomiting blood or have bloody diarrhea or black, tarry diarrhea ?? Have chest, neck, or shoulder pain ?? Feel like you might pass out ?? Have pain in your shoulder blades with nausea ?? Have sudden, severe belly pain ?? Have new, severe??pain unlike any you have felt before ?? Have a belly that is rigid, hard, and tender to touch Call your healthcare provider if you have: ?? Pain for more than??5??days ?? Bloating for more than 2??days ?? Diarrhea for more than??5??days ?? A fever of 100.4??F (38.0??C) or higher, or as directed by your provider ?? Pain that gets worse ?? Weight loss for no reason ?? Continued lack of appetite ?? Blood in your stool How to prevent abdominal pain Here are some tips to help prevent abdominal pain: ?? Eat smaller amounts of food at one time. ?? Avoid greasy, fried, or other high-fat foods. ?? Avoid foods that give you gas. ?? Exercise regularly. ?? Drink plenty of fluids. To help prevent GERD symptoms: ?? Quit smoking. ?? Reduce alcohol and certain foods that increase stomach acid. ?? Avoid aspirin and zvnv-faj-acbfjmj pain and fever medicines (NSAIDS or nonsteroidal anti-inflammatory drugs), if possible ?? Lose extra weight. ?? Finish eating at least 2 hours before you go to bed or lie down. ?? Raise the head of your bed. Date Last Reviewed: 01/15/2016 ?? [id number] [employer]. [address] [place] [address], [place] [address]. All rights reserved. This information is not intended as a substitute for professional medical care. Always follow your healthcare professional's instructions. Acute Bacterial Rhinosinusitis (ABRS) Acute bacterial rhinosinusitis (ABRS) is an infection of your nasal cavity and sinuses. It???s caused by bacteria. Acute means that you???ve had symptoms for less than 12 weeks. Understanding your sinuses The nasal cavity is the large air-filled space behind your nose. The sinuses are a group of spaces formed by the bones of your face. They connect with your nasal cavity. ABRS causes the tissue lining these spaces to become inflamed. Mucus may not drain normally. This leads to facial pain and other symptoms. What causes ABRS? ABRS most often follows an upper respiratory infection caused by a virus. Bacteria then infect the lining of your nasal cavity and sinuses. But you can also get ABRS if you have: ?? Nasal allergies ?? Long-term nasal swelling and congestion not caused by allergies ?? Blockage in the nose Symptoms of ABRS The symptoms of ABRS may be different for each person, and can include: ?? Nasal congestion ?? Runny nose ?? Fluid draining from the nose down the throat (postnasal drip) ?? Headache ?? Cough ?? Pain in the sinuses ?? Thick, colored fluid from the nose (mucus) ?? Fever Diagnosing ABRS ABRS may be diagnosed if you???ve had an upper respiratory infection like a cold and cough for longer than 10 to 14 days. Your health care provider will ask about your symptoms and your medical history. The provider will check your vital signs, including your temperature. You???ll have a physical exam. The health care provider will check your ears, nose, and throat. You likely won???t need any tests.If ABRS comes back, you may have a culture or other tests. Treatment for ABRS Treatment may include: ?? Antibiotic medicine. This is for symptoms that last for at least 10 to 14 days. ?? Nasal corticosteroid medicine. Drops or spray used in the nose can lessen swelling and congestion. ?? Zwbe-sfb-kvinxqa pain medicine. This is to lessen sinus pain and pressure. ?? Nasal decongestant medicine. Ruby or drops may help to lessen congestion. Do not use them for more than a few days. ?? Salt wash (saline irrigation). This can help to loosen mucus. Possible complications of ABRS ABRS may come back or become long-term (chronic). In rare cases, ABRS may cause complications such as:? Inflamed tissue around the brain and spinal cord (meningitis) ?? Inflamed tissue around the eyes (orbital cellulitis) ?? Inflamed bones around the sinuses (osteitis) These problems may need to be treated in a hospital with intravenous (IV) antibiotic medicine or surgery. When to call the health care provider Call your health care provider if you have any of the following: ?? Symptoms that don???t get better, or get worse ?? Symptoms that don???t get better after 3 to 5 days on antibiotics ?? Trouble seeing ?? Swelling around your eyes ?? Confusion or trouble staying awake Date Last Reviewed: 09/16/2014 ?? [id number] [employer]. [address] [place] [address]. All rights reserved. This information is not intended as a substitute for professional medical care. Always follow your healthcare professional's instructions. Bronchitis with Wheezing (Viral or Bacterial: Adult) Bronchitis is an infection of the air passages. It often occurs during a cold and is usually caused by a virus. Symptoms include cough with mucus (phlegm) and low-grade fever. This illness is contagious during the first few days and is spread through the air by coughing and sneezing, or by direct contact (touching the sick person and then touching your own eyes, nose, or mouth). If there is a lot of inflammation, air flow is restricted. The air passages may also go into spasm, especially if you have asthma. This causes wheezing and difficulty breathing even in people who do not have asthma. Bronchitis usually lasts 7 to 14 days. The wheezing should improve with treatment during the first week. An inhaler is often prescribed to relax the air passages and stop wheezing. Antibiotics will be prescribed if your doctor thinks there is also a secondary bacterial infection. Home care ?? If symptoms are severe, rest at home for the first 2 to 3 days. When you go back to your usual activities, don't let yourself get too tired. ?? Do not smoke. Also avoid being exposed to secondhand smoke. ?? You may use ulus-jiy-sqvngum medicine to control fever or pain, unless another medicine was prescribed. Note: If you have chronic liver or kidney disease or have ever had a stomach ulcer or gastrointestinal bleeding, talk with your healthcare provider before using these medicines. Also talk to yourprovider if you are taking medicine to prevent blood clots.) Aspirin should never be given to anyoneyounger than 18 years of age who is ill with a viral infection or fever. It may cause severe liver or brain damage. ?? Your appetite may be poor, so a light diet is fine. Avoid dehydration by drinking 6 to 8 glasses of fluids per day (such as water, soft drinks, sports drinks, juices, tea, or soup). Extra fluids will help loosen secretions in the nose and lungs. ?? Jyxt-yjr-jiajnez cough, cold, and sore-throat medicines will not shorten the length of the illness, but they may be helpful to reduce symptoms. (Note: Do not use decongestants if you have high bloodpressure.) ?? If you were given an inhaler, use it exactly as directed. If you need to use it more often than prescribed, your condition may be worsening. If this happens, contact your healthcare provider. ?? If prescribed, finish all antibiotic medicine, even if you are feeling better after only a few days. Follow-up care Follow up with your healthcare provider, or as advised. If you had an X-ray or ECG (electrocardiogram), a specialist will review it. You will be notified of any new findings that may affect your care. Note: If you are age 65 or older, or if you have a chronic lung disease or condition that affects your immune system, or you smoke, talk to your healthcare provider about having a pneumococcal vaccinations and a yearly influenza vaccination (flu shot). When to seek medical advice Call your healthcare provider right away if any of these occur: ?? Fever of 100.4??F (38??C) or higher ?? Coughing up increasing amounts of colored sputum ?? Weakness, drowsiness, headache, facial pain, ear pain, or a stiff neck Call 911, or get immediate medical care Contact emergency services right away if any of these occur. ?? Coughing up blood ?? Worsening weakness, drowsiness, headache, or stiff neck ?? Increased wheezing not helped with medication, shortness of breath, or pain with breathing Date Last Reviewed: 03/29/2015 ?? [id number] [employer]. [address] [place] [address]. All rights reserved. This information is not intended as a substitute for professional medical care. Always follow your healthcare professional's instructions. documented in this encounter Medications at Time of Discharge Medication Sig Dispensed Refills Start Date End Date EPINEPHrine (EPIPEN) Inject 0.3 mg into 0 0.3 MG/0.3ML injection the muscle once as needed. doxycycline Take 1 capsule (100 20 capsule 0 03/30/201703/18 (VIBRAMYCIN) 100 MG mg) by mouth 2 times capsule daily for 10 days ACCU-CHEK MULTICLIX test twice daily. 0 1 [...] Glucose Any glucose meter 1 kit 1 07/01/2015 02/0 07/2018 Monitoring Suppl (IBG covered by insurance [employer]) W/DEVICE use as directed (not KITIndications: store brand) Diabetes mellitus, type 2 (H) busPIRone (BUSPAR) 5 MG Take 5 mg by mouth 0 08/17/2018 tablet daily cetirizine (ZYRTEC) 10 Take 1 tablet by 90 tablet 3 012 08/17/2018 MG tabletIndications: mouth daily as Asthma, Hives needed. For hives fluticasone (FLONASE) Ruby 1-2 sprays into 1 Bottle 11 08/17/2018 [...] documented as of this encounter ED Notes Yaya Fischer MD - 03/29/2017 9:33 PM CDT History Chief Complaint: Cough HPI Becki Ridley is a 62 year old female with a history of asthma and restrictive lung disease who presents with a cough. The patient states that for the last 10 weeks she has had a cough which produces green phlegm. The cough is worse when laying down and is now causing a tightness in her chest. She thought she was getting better but over the last couple of days she has felt much worse and the cough is now accompanied by body aches, intermittent chills, sore throat, sinus pressure, and ear pressure and pain. Patient notes that she has been having discomfort in the area of appendix as well as some nausea. She states that she used her nebulizer today which provided her with no relief. She states thatlarry is also a diabetic and has not been checking her sugars recently, but knows that they have not been good. Patient denies having a history of allergies. Patient denies any known ill contacts. Patient denies all other complaints. Allergies: Cipro [Quinolones] Codeine Sulfate Vicodin [Hydrocodone-Acetaminophen] Darvocet [Propoxyphene N-Apap] Medications: Ultram Victoza Glucophage Synthroid Prednisone Xyzal Buspar Zyrtec Nasonex Singulair Epipen Advair Diskus Ventolin HFA Lasix Potassium Gluconate Past Medical History: Angioedema Arthritis Asthma Blood Transfusion Depression Diabetes Mellitus, Type II Hypertension Lower Extremity Edema VILLAREAL RLS Restrictive Lung Disease Sleep Apnea Subclinical Hypothyroidism Urticaria Non-Alcoholic Fatty Liver Disease Obesity Past Surgical History: Biopsy - Liver Colonoscopy Family History: Dementia Hypertension Cancer Hypertension Depression Social History: Presents alone Tobacco use: never Alcohol use: no PCP: Physician No Ref-Primary Marital Status: Review of Systems Constitutional: Positive for chills. HENT: Positive for ear pain, sinus pressure and sore throat. Respiratory: Positive for cough. Gastrointestinal: Positive for abdominal pain and nausea. Musculoskeletal: Positive for myalgias. All other systems reviewed and are negative. Physical Exam Patient Vitals for the past 24 hrs: BP Temp Temp src Heart Rate Resp SpO2 Weight 03/29/17 2156 - - - - - - 85.8 kg (189 lb 1.6 oz) 03/29/17 2154 146/71 97.9 ??F (36.6 ??C) Temporal 86 18 97 % - Physical Exam Constitutional: Appears well-developed and well-nourished. Cooperative. HENT: Fluid behind TM's. Right TM retracted. Tender over maxillary sinuses, right more than left. Noswelling or erythema to the face. Head: Atraumatic. Mouth/Throat: Oropharynx is mildly erythematous but without exudate and mucous membranes are moist. Eyes: Conjunctivae normal and EOM are normal. Pupils are equal, round, and reactive to light. Neck: Normal range of motion. Neck supple. Cardiovascular: Normal rate, regular rhythm, normal heart sounds and radial and dorsalis pedis pulses are 2+ and symmetric. Pulmonary/Chest: Diminished breath sounds bilaterally, right more than left. Abdominal: Soft. Bowel sounds are normal. No splenomegaly or hepatomegaly. Tender to deep palpation of right upper quadrant Musculoskeletal: Normal range of motion. No edema and no tenderness. Neurological: Alert. Normal strength. No cranial nerve deficit. Skin: Skin is warm and dry. Psychiatric: Normal mood and affect. Emergency Department Course Imaging: Radiographic findings were communicated with the patient who voiced understanding of the findings. Chest XR, PA & LAT: IMPRESSION: No acute abnormality. CT Abdomen Pelvis w/ Contrast: IMPRESSION: No acute abnormality. No bowel obstruction or inflammation. Results per radiology. Laboratory: CBC: WNL (WBC 7.9, HGB 13.6, PLT 219) CMP: Glucose 374 (H), Albumin 3.3 (L), ALT 75 (H) o/w WNL (Creatinine 0.58) Lactic Acid: 2.0 UA with micro: Glucose >1000 o/w negative Interventions: 2326: Sudafed 120 mg PO 2326: Duoneb 3 mL Nebulization 2326: Ibuprofen 600 mg PO Emergency Department Course: Past medical records, nursing notes, and vitals reviewed. 2301: I performed an exam of the patient and obtained history, as documented above. IV inserted and blood drawn. Above interventions provided. The patient was sent for a chest xray and abdomen CT while in the emergency department, findings above. I personally reviewed the laboratory results with the Patient and answered all related questions prior to discharge. 0154: I rechecked the patient. Findings and plan explained to the Patient. Patient discharged home with instructions regarding supportive care, medications, and reasons to return. The importance of close follow-up was reviewed. Impression & Plan Medical Decision Making: Becki Ridley is a 62 year old female who presented to the ED with symptoms consistent with bronchitis. The patient appears non-toxic without evidence of respiratory distress. The patient has normal oxygen saturations with normal work of breathing. There are no signs of serious systemic illness and the patient has normal mentation without confusion. CXR normal without evidence of pneumonia, pleural effusion, or pneumothorax. No clinical evidence to suggest more serious cardiopulmonary process, including but not limited to ACS, PE, or dissection. Reviewed with patient that cough and airway hyperreactivity may persist for several weeks. I discussed the need to seek immediate evaluation for respiratory distress, confusion, fever, or for any other questions or concerns. Patient also presented with one week of symptoms consistent with sinusitis. Chills and/or low grade fevers, sinus pressure, and ear pressure. There is pain over maxillary sinuses, mild pain over frontal sinuses, no meningismus, no rash or cervical lymphadenopathy. Given the length of time patient has had symptoms, antibiotics are indicated. RX for Doxycycline and Flonase given. Patient also complained of abdominal pain and nausea. The differential diagnosis is broad and includes: Appendicitis, cholecystitis, peptic ulcer disease, diverticulitis, bowel obstruction, ischemia, pancreatitis, amongst others. Based on clinical exam, laboratory testing, and imaging, no significant etiologies were found. The pain has improved with interventions in the ED. The exact etiology of the pain is not clear at this time. She will be discharged, and was warned that persistent or worsening symptoms should prompt re-examination (ED if necessary) in 8-12 hours. Diagnosis: ICD-10-CM 1. Acute bronchitis, unspecified organism J20.9 2. Acute sinusitis with symptoms > 10 days J01.90 3. Abdominal pain, right lower quadrant R10.31 Disposition: Discharged to home with plan as outlined. Discharge Medications: New Prescriptions DOXYCYCLINE (VIBRAMYCIN) 100 MG CAPSULE Take 1 capsule (100 mg) by mouth 2 times daily for 10 days FLUTICASONE (FLONASE) 50 MCG/ACT SPRAY Ruby 1-2 sprays into both nostrils daily PREDNISONE (DELTASONE) 20 MG TABLET Take two tablets (= 40mg) each day for 5 (five) days 03/29/2017 EMERGENCY DEPARTMENT I, Vidhi Roblero am serving as a scribe at 11:01 PM on 03/29/2017 to document services personally performed by Yaya Fischer MD based on my observations and the provider's statements to me. Yaya Fischer MD 04/01/17 1830 documented in this encounter Plan of Treatment Upcoming Encounters Date Type Specialty Care Team Description 05/19/2022 Office Visit ENT Dima Hidalgo M D [address] [phone] (Wo rk) 08/02/2022 Office Visit Neurology Yair Campos MD [address] [place] [address] (Wo rk) documented as of this encounter Procedures Procedure Name Priority Date/Time Associated Comments Diagnosis CT ABDOMEN PELVIS W STAT 03/30/2017 1:15 AM Re sults for this CONTRAST CDT procedure are i n the results section. ROUTINE UA WITH STAT 03/30/2017 12:42 Results for this MICROSCOPIC AM CDT procedure are i n the results section. CBC WITH PLATELETS & STAT 03/30/2017 12:15 Res ults for this DIFFERENTIAL AM CDT procedure are i n the results section. LACTIC ACID WHOLE STAT 03/30/2017 12:15 Result s for this BLOOD AM CDT procedure are i n the results section. COMPREHENSIVE STAT 03/30/2017 12:15 Results fo r this METABOLIC PANEL AM CDT procedure ar e in the results section. XR CHEST 2 VIEWS STAT 03/29/2017 11:43 Results for this PM CDT procedure are i n the results section. documented in this encounter Results CT Abdomen Pelvis w Contrast (03/30/2017 1:15 AM CDT) Anatomical Region Laterality Modality Abdomen/Pelvis, SUBRAD CT BODY, UMP CT ABDOMEN PELVIS Computed Tomography Specimen (Source) Anatomical Location Collection Method / Collectio n Time Received Time / Laterality Volume Impressions 03/30/2017 5:36 AM CDT IMPRESSION: No acute abnormality. No bowel obstruction or inflammation. RICKIE RAZA MD Narrative 03/30/2017 5:[address] ABDOMEN PELVIS W CONTRAST ??03/30/2017 1:15 AM ?? HISTORY: Right lower quadrant pain. TECHNIQUE: CT abdomen and pelvis with in travenous contrast. Radiation dose for this scan was reduced using aut omated exposure control, adjustment of the mA and/or kV according to patient size, or iterative reconstruction technique. 95 mL Isovue-3 70. COMPARISON: None. FINDINGS: Abdomen: There is minimal dependent atel ectasis at the right lung base. The heart size is normal. The live r, spleen, gallbladder, pancreas, adrenal glands and kidneys are normal in appearance. There is no abdominal or pelvic lymph node enl argement Pelvis: The uterus and adnexa appear byron ssly normal. There is no bowel obstruction or inflammation. The appendi x is normal. Moderate amount of stool in the colon. No free intraperi toneal gas or fluid. Procedure Note Rickie Raza MD - 03/30/2017Form atting of this note might be different from the original. CT ABDOMEN PELVIS W CONTRAST 03/30/2017 1 :15 AM HISTORY: Right lower quadrant pain. TECHNIQUE: CT abdomen and pelvis with in travenous contrast. Radiation dose for this scan was reduced using aut omated exposure control, adjustment of the mA and/or kV according to patient size, or iterative reconstruction technique. 95 mL Isovue-3 70. COMPARISON: None. FINDINGS: Abdomen: There is minimal dependent atel ectasis at the right lung base. The heart size is normal. The live r, spleen, gallbladder, pancreas, adrenal glands and kidneys are normal in appearance. There is no abdominal or pelvic lymph node enl argement Pelvis: The uterus and adnexa appear byron ssly normal. There is no bowel obstruction or inflammation. The appendi x is normal. Moderate amount of stool in the colon. No free intraperi toneal gas or fluid. IMPRESSION: No acute abnormality. No bow el obstruction or inflammation. RICKIE RAZA MD Yaya Fischer MD IMG CT ORDERABLES (ABNORMAL) UA with Microscopic (03/30/2017 12:42 AM CDT) [facility] Method Time Signature Color Urine Yellow 03/30/2017 [place] 12:52 AM [facility] Appearance Urine Clear 03/30/2017 [place] 12:52 AM [facility] Glucose Urine >1000 (A) NEG^Negat 03/30/2017 [place] jeromy mg/dL 12:52 AM [facility] Bilirubin Urine Negative NEG^Negat 03/30/2017 [facility] jeromy 12:52 AM [facility] Ketones Urine Negative NEG^Negat 03/30/2017 [facility] jeromy mg/dL 12:52 AM [facility] Specific [place] 1.033 1.003 - 03/30/2017 [place] Urine 1.035 12:52 AM [facility] Blood Urine Negative NEG^Negat 03/30/2017 [place] jeromy 12:52 AM [facility] pH Urine 5.5 5.0 - 7.0 03/30/2017 [place] pH 12:52 AM [facility] Protein Albumin Negative NEG^Negat 03/30/2017 [facility] Urine jeromy mg/dL 12:52 AM [facility] Urobilinogen Normal 0.0 - 2.0 03/30/2017 [place] mg/dL mg/dL 12:52 AM [facility] Nitrite Urine Negative NEG^Negat 03/30/2017 [facility] jeromy 12:52 AM [facility] Leukocyte Negative NEG^Negat 03/30/2017 [facility] Esterase Urine jeromy 12:52 AM [facility] Source Midstream 03/30/2017 [place] Urine 12:45 AM [facility] WBC Urine 1 0 - 2 03/30/2017 [facility] /HPF 12:52 AM [facility] RBC Urine 1 0 - 2 03/30/2017 [facility] /HPF 12:52 AM [facility] Squamous 1 0 - 1 03/30/2017 [place] Epithelial /HPF /HPF 12:52 AM [facility] Specimen (Source) Anatomical Collection Method Collection Time Re ceived Time Location / / Volume Laterality Examination of URINE SPECIMEN 03/30/2017 12:42 017 midstream urine OBTAINED BY CLEAN AM CDT 12:45 A M CDT specimen CATCH PROCEDURE / (procedure) Unknown Yaya Fischer MD LAB - URINE ORDERABLES Performing Organization Address City/State/ZIP Code Phon e Number M [facility] [address] [address] [phone] [facility] [address] [address], [facility] [phone] Lactic acid (03/30/2017 12:15 AM CDT) P athologist Signature Lactic Acid 2.0 0.7 - 2.0 03/30/2017 [place] mmol/L 12:31 AM T [facility] Specimen Anatomical Collection Method Collection Time Receive d Time (Source) Location / / Volume Laterality Blood specimen 03/30/2017 12:15 7 (specimen) AM CDT 12:26 AM CDT Yaya Fischer MD LAB - BLOOD ORDERABLES Performing Organization Address City/State/ZIP Code Phon e Number M [facility] [address] [place] [address] [phone] [facility] [address] [address], [place] [phone] (ABNORMAL) Comprehensive metabolic panel (03/30/2017 12:15 AM [facility]) athologist Signature Sodium 137 133 - 144 03/30/2017 [place] mmol/L 12:43 AM [facility] Potassium 3.7 3.4 - 5.3 03/30/2017 [place] mmol/L 12:43 AM [facility] Chloride 101 94 - 109 03/30/2017 [place] mmol/L 12:43 AM [facility] Carbon Dioxide 28 20 - 32 03/30/2017 [place] mmol/L 12:43 AM [facility] Anion Gap 8 3 - 14 03/30/2017 [place] mmol/L 12:43 AM [facility] Glucose 374 (H) 70 - 99 03/30/2017 [place] mg/dL 12:43 AM [facility] Urea Nitrogen 7 7 - 30 03/30/2017 [place] mg/dL 12:43 AM [facility] Creatinine 0.58 0.52 - 03/30/2017 [place] 1.04 mg/dL 12:43 AM [facility] GFR Estimate >90 >60 03/30/2017 [place] mL/min/1.7 12:[address] Comment: Non GFR Calc GFR Estimate If >90 >60 mL/min/1.7m2 03/30/2017 12:43 AM [facility] Comment: GFR Calc Calcium 9.1 8.5 - 10.1 03/30/2017 12:43 AM [facility] mg/dL [facility] Bilirubin Total 0.4 0.2 - 1.3 mg/dL 03/30/2017 12:45 A M [facility] Albumin 3.3 (L) 3.4 - 5.0 g/dL 03/30/2017 12:43 AM [facility] Protein Total 7.2 6.8 - 8.8 g/dL 03/30/2017 12:45 AM F [facility] Alkaline Phosphatase 90 40 - 150 U/L 03/30/2017 12:45 AM [facility] ALT 75 (H) 0 - 50 U/L 03/30/2017 12:43 AM [facility] AST 41 0 - 45 U/L 03/30/2017 12:45 AM [facility] Specimen Anatomical Collection Method Collection Time Receive d Time (Source) Location / / Volume Laterality Blood specimen 03/30/2017 12:15 7 (specimen) AM CDT 12:26 AM CDT Yaya Fischer MD LAB - BLOOD ORDERABLES Performing Organization Address City/State/ZIP Code Phon e Number M [facility] [address] [address] [phone] [facility] [address] [address], U [phone] CBC with platelets + differential (03/30/2017 12:15 AM CDT) [facility] gist Method Time Signature WBC 7.9 4.0 - 03/30/2017 [facility] 11.0 12:29 AM [facility] 10e9/L [facility] RBC Count 4.69 3.8 - 5.2 03/30/2017 [facility] 10e12/L 12:29 AM [facility] Hemoglobin 13.6 11.7 - 03/30/2017 [facility] 15.7 g/dL 12:29 AM [facility] Hematocrit 38.6 35.0 - 03/30/2017 [facility] 47.0 % 12:29 AM [facility] MCV 82 78 - 100 03/30/2017 [facility] fl 12:29 AM [facility] MCH 29.0 26.5 - 03/30/2017 [facility] 33.0 pg 12:29 AM [facility] MCHC 35.2 31.5 - 03/30/2017 [facility] 36.5 g/dL 12:29 AM [facility] RDW 13.6 10.0 - 03/30/2017 [facility] 15.0 % 12:29 AM [facility] Platelet Count 219 150 - 450 03/30/2017 [facility] 10e9/L 12:29 AM [facility] Diff Method Automated 03/30/2017 [facility] Method 12:29 AM [facility] % Neutrophils 33.1 % 03/30/2017 [facility] 12:29 AM [facility] % Lymphocytes 59.8 % 03/30/2017 [facility] 12:29 AM [facility] % Monocytes 4.9 % 03/30/2017 [facility] 12:29 AM [facility] % Eosinophils 1.8 % 03/30/2017 [facility] 12:29 AM [facility] % Basophils 0.1 % 03/30/2017 [facility] 12:29 AM [facility] % Immature 0.3 % 03/30/2017 [facility] Granulocytes 12:29 AM [facility] Nucleated RBCs 0 0 /100 03/30/2017 [facility] 12:29 AM [facility] Absolute 2.6 1.6 - 8.3 03/30/2017 [facility] Neutrophil 10e9/L 12:29 AM [facility] Absolute 4.7 0.8 - 5.3 03/30/2017 [facility] Lymphocytes 10e9/L 12:29 AM [facility] Absolute 0.4 0.0 - 1.3 03/30/2017 [facility] Monocytes 10e9/L 12:29 AM [facility] Absolute 0.1 0.0 - 0.7 03/30/2017 [facility] Eosinophils 10e9/L 12:29 AM [facility] Absolute 0.0 0.0 - 0.2 03/30/2017 [facility] Basophils 10e9/L 12:29 AM [facility] Abs Immature 0.0 0 - 0.4 03/30/2017 [facility] Granulocytes 10e9/L 12:29 AM [facility] Absolute 0.0 03/30/2017 [facility] Nucleated RBC 12:29 AM [facility] Specimen Anatomical Collection Method Collection Time Receive d Time (Source) Location / / Volume Laterality Blood specimen 03/30/2017 12:15 7 (specimen) AM CDT 12:26 AM CDT Yaya Fischer MD LAB - BLOOD ORDERABLES Performing Organization Address City/State/ZIP Code Phon e Number M [facility] [address] [address] [facility] [address] [address], U [phone] Chest XR, PA & LAT (03/29/2017 11:43 PM CDT) Anatomical Region Laterality Modality Chest Digital Radiography Specimen (Source) Anatomical Location Collection Method / Collectio n Time Received Time / Laterality Volume Impressions 03/30/2017 5:34 AM CDT IMPRESSION: No acute abnormality. RICKIE RAZA MD Narrative 03/30/2017 5:34 AM CDT XR CHEST 2 VW ??03/29/2017 11:43 PM ?? HISTORY: Cough. COMPARISON: 11/02/2016. FINDINGS: The heart size is normal. The lungs are clear. No pneumothorax or pleural effusion. Procedure Note Rickie Raza MD - 03/30/2017Form atting of this note might be different from the original. XR CHEST 2 VW 03/29/2017 11:43 PM HISTORY: Cough. COMPARISON: 11/02/2016. FINDINGS: The heart size is normal. The lungs are clear. No pneumothorax or pleural effusion. IMPRESSION: No acute abnormality. RICKIE RAZA MD Yaya Fischer MD IMG DIAGNOSTIC IMAGING ORDER CHAI documented in this encounter Visit Diagnoses Diagnosis Acute bronchitis, unspecified organism Acute sinusitis with symptoms > 10 days Acute sinusitis, unspecified Abdominal pain, right lower quadrant documented in this encounter Administered Medications Inactive Administered Medications - up to 3 most recent administrations Medication Order MAR Action Action Date Dose Rate Site ibuprofen (ADVIL/MOTRIN) tablet Given 03/29/2017 11:26 PM CDT 60 0 mg 600 mg 600 mg, Oral, ONCE, On 03/29/17 at 2313, For 1 dose iopamidol (ISOVUE-370) solution 95 mL Given 03/30/2017 1:12 AM CDT 95 mLs 95 mL, Intravenous, ONCE, On Lorena 03/30/17 at 0113, For 1 dose ipratropium - albuterol 0.5 mg/2.5 mg/3 mL Given 03/29/2017 11:2 6 PM CDT 3 mLs (DUONEB) neb solution 3 mL 3 mL, Nebulization, ONCE, On Mon03/29/17 at 2313, For 1 dose pseudoePHEDrine (SUDAFED) 12 hr tablet 120 Given 03/29/2017 11:26 PM CDT 120 mg mg 120 mg, Oral, ONCE, On Mon03/29/17 at 2313, For 1 dose, DO NOT CRUSH. Saline flush Given 03/30/2017 1:13 AM CDT 69 mLs Intravenous, 69 mL, ONCE, On Lorena 03/30/17 at 0113, For 1 dose documented in this encounter Active and Recently Administered Medications Times are shown in CDT. Scheduled Medication Order 03/28/2017 03/29/2017 03/30/2017 ibuprofen (ADVIL/MOTRIN) tablet 600 mg (COMPLETED) 2325 (Given - Provider: Cecilia Portillo RN) 600 mg, Oral, ONCE, Mon03/29/17 at 2313, For 1 dose iopamidol (ISOVUE-370) solution 95 mL (COMPLETED) 111 (Given - Provider: Melvin Carlson) 95 mL, Intravenous, ONCE, Lorena 03/30/17 at 0113, For 1 dose ipratropium - albuterol 0.5 mg/2.5 mg/3 mL (DUONEB) neb solution 3 mL (COMPLETED) 2325 (Given - Provider: Cecilia Portillo RN ) 3 mL, Nebulization, ONCE, Mon03/29/17 at 2313, For 1 dose pseudoePHEDrine (SUDAFED) 12 hr tablet 120 mg (COMPLETED) 2325 (Given - Provider: Cecilia Portillo RN) 120 mg, Oral, ONCE, Mon03/29/17 at 2313, For 1 dose, DO NOT WES H. Saline flush (COMPLETED) 112 (G iven - Provider: Melvin Carlson) Intravenous, 69 mL, ONCE, Lorena 03/30/17 at 0113, For 1 dose documented in this encounter Care Teams Splunk Dashboard Developer Relationship Specialty Start Date End Date No Ref-Primary, PCP - General 11/02/16 12/14/17 Physician Tali Vilchis MD MD INTERNAL MEDICINE - 04/10/15 09/17/[address] [place] [address] ENDOCRINOLOGY, DIABETES 101 & [place] [address] Anat Fuller MD Internal Medicine 04/10/1509/16 MD Renee [address] [facility] [place], [place] [address] Janny Hutton, Physician Alberene Stone Setter Physician Alberene Stone Setter 06/1609/17/19 [place] [address] [facility] [address] [place], [place] [address] documented as of this encounter
--- OUTSIDE RECORDS SUMMARY | 2022-05-09 11:05 | XMS_ITS | Encounter Summary ---
:1955 Author Organization [facility] Address [address] [facility] [place] [address] Care Team Providers Name Role Phone Aleks Lopez MD Primary Care Provider Tali Vilchis MD Unavailable Anat Fuller MD Unavailable [phone] Janny Hutton PA-C Unavailable [phone] Encounter Details Date Type Department Care Team Description 08/09/2016 Orders Only [facility] Subclinical hypothyroidism [address] [facility] [address] [place] [address] Social History Tobacco Use Types Packs/Day Years Used Date Smoking Tobacco: Never Smokeless Tobacco: Never Alcohol Use Standard Drinks/Week Comments No 0 (1 standard drink = 0.6 oz pure alcoho l) Sex Assigned at Date Recorded Female 08/17/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 T4 FREE Routine 08/09/2016 12:56 PM Subclinical Results for this TAX FORM PREPARER hypothyroidism procedure are in the results section. documented in this encounter Results T4 free (08/09/2016 12:56 PM TAX FORM PREPARER) athologist Signature T4 Free 1.27 0.76 - 1.46 [facility] ng/dL [facility] Specimen Anatomical Collection Method Collection Time Receive d Time (Source) Location / / Volume Laterality Blood specimen 08/09/2016 12:56 7 (specimen) PM TAX FORM PREPARER 12:58 PM TAX FORM PREPARER Tali Vilchis MD LAB - BLOOD ORDERABLES Performing Organization Address City/State/ZIP Code Phon e Number [address] [address] [facility] TSH (08/09/2016 12:56 PM TAX FORM PREPARER) athologist Signature TSH 2.97 0.40 - 4.00 [facility] mU/L [facility] Specimen Anatomical Collection Method Collection Time Receive d Time (Source) Location / / Volume Laterality Blood specimen 08/09/2016 12:56 7 (specimen) PM TAX FORM PREPARER 12:58 PM TAX FORM PREPARER Tali Vilchis MD LAB - BLOOD ORDERABLES Performing Organization Address City/[facility]/ZIP Code Phon e Number [address] [address] [facility] documented in this encounter Visit Diagnoses Diagnosis Subclinical hypothyroidism Other specified acquired hypothyroidism documented in this encounter Care Teams Marketing Strategy Analyst Relationship Specialty Start Date End Date Aleks Lopez MD PCP - General Family Practice 10/18/14 11/01/16 Tali Vilchis MD MD INTERNAL MEDICINE - 04/10/15 09/17/[address] [place] [address] ENDOCRINOLOGY, DIABETES [address] & [place] [address] Anat Fuller MD Internal Medicine 04/10/1509/16 MD Renee [address] [facility] [address] [place], [place] [address] Janny Hutton, Physician Client Specialist Physician Client Specialist 06/1609/17/19 CARLA [address] [facility] [address] [place], [place] [address] documented as of this encounter
--- OUTSIDE RECORDS SUMMARY | 2022-05-09 11:05 | XMS_ITS | Encounter Summary ---
:1955 Author Organization [place] Address [facility] [place] [address] Care Team Providers Name Role Phone Aleks Lopez MD Primary Care Provider Tali Vilchis MD Unavailable Anat Fuller MD Unavailable [phone] Janny Hutton PA-C Unavailable [phone] Encounter Details Date Type Department Care Team Description 08/29/2016 Office Visit [facility] Diabetes Danitza Lobo, Diabetes mellitus [address] [facility] [address] without complication 3rd Floor [address] [place] [address] (H) (Primary Dx) [place] [address] [phone] Social History Tobacco Use Types Packs/Day Years Used Date Smoking Tobacco: Never Smokeless Tobacco: Never Alcohol Use Standard Drinks/Week Comments No 0 (1 standard drink = 0.6 oz pure alcoho l) Sex Assigned at Date Recorded Female 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 Follow up October 12, 9:[address], CDE and 10:30 with Sayra MATTHEWSE 2. Check your blood sugar once per day, alternating fasting and 2 hours after dinner. Blood sugar goals are 80-130 fasting and less than 180 2 hours after dinner 3.. Try to be as active as you can 4. We reviewed healthy low saturated and low trans fat today and carbohydrate counting. Aim for 45-60 grams carbohydrate per meal and 0-15 grams carb for snacks Sample 1500 calorie meal plan and grocery list provided. Try logging your food in Fl[employer] Danitza Lobo RD, MARGE, GAURAVE [facility] [address] Room [address] [address] Appointment line: [phone] Email: [email or web address] [email or web address] documented in this encounter Progress Notes Danitza Lobo RD - 08/29/2016 4:22 PM CST Diabetes Self Management Training: Individual Review Visit Becki Ridley presents today for education related to Type 2 diabetes. She is accompanied by self Patient Problem List and Family Medical History reviewed for relevant medical history, current medical status, and diabetes risk factors. Current Diabetes Management per Patient: Taking diabetes medications? yes: Diabetes Medication(s) Biguanides Sig metFORMIN (GLUCOPHAGE-XR) 500 MG 24 hr tablet Take 1 tablet (500 mg) by mouth daily (with dinner) Sodium-Glucose Co-Transporter 2 (SGLT2) Inhibitors Sig canaliflozin (INVOKANA) tablet Take 300 mg by mouth every morning (before breakfast) Past Diabetes Education: No Patient glucose self monitoring as follows: rarely. BG results: not available Vitals: Ht 1.575 m (5' 2) Wt 88.4 kg (194 lb 14.4 oz) BMI 35.65 kg/m2 Estimated body mass index is 35.65 kg/(m^2) as calculated from the following: Height as of this encounter: 1.575 m (5' 2). Weight as of this encounter: 88.4 kg (194 lb 14.4 oz). Last 3 BP: BP Readings from Last 3 Encounters: 08/09/16 126/78 07/01/16 128/84 12/21/15 108/70 History Smoking Status ??? Never Smoker Smokeless Tobacco ??? Never Used Labs: Lab Results Component Value Date A1C 9.2 06/30/2015 Lab Results Component Value Date GLC 193 08/09/2016 No results found for: LDL No results found for: HDL] GFR Estimate Date Value Ref Range Status 08/09/2016 >90 Non GFR Calc >60 mL/min/1.7m2 Final GFR Estimate If Black Date Value Ref Range Status 08/09/2016 >90 GFR Calc >60 mL/min/1.7m2 Final Lab Results Component Value Date CR 0.47 08/09/2016 CR 121 03/02/2011 No results found for: MICROALBUMIN Nutrition Review: Becki is here for diabetes education. She was dx in 2011 and can't remember clearly if she had anydiabetes ed at the time. She wants to get her diabetes in better control. I have read her PMH. She lives in a [place] apartment with her daughter and son in law and their 2 children. She is not currently employed. She recently found her bg meter and has used it a few times but she did not bring it with her today. Diet Recall: Breakfast:raisin bran/skim or coconut milk or egg, coffee with sweetener and cream AM snack:nuts, sometime fruit Lunch:tuna/peas/salad dressing or turkey and cheese or leftovers or homemade soup or fast food 3x/wk PM snack:fruit or sometimes candy bar Dinner:popcorn or tuna/peas or soup or chicken/fish/tacos/nachos or pasta/veg or tortellini, water or lemon juice or milk Evening snack:popcorn with butter and cheese or cereal or V-8 Eats out in restaurants: about 5-6 times per week Beverages: water, or diet beverage ETOH: none Physical Activity: No regular, belongs to [employer] but does not attend often Gave Becki written and verbal information on general healthy eating, low saturated, low trans fat,low sodium and carbohydrate counting. Provided Becki with information on how to obtain nutrition information online and via smartphone. Discussed benefits of moderate weight loss of 5-10%, approximately 2-4# per month for improved diabetes control regarding blood glucose, blood pressure and lipids. Worked with Becki to set goals for improved diet and weight loss. Discussed phone apps such as [employer] or [employer] to help track daily calories with a goal of 1500 per day. Provided Becki with a 1500 calorie sample meal plan and grocery list. Discussed SMBG and bg goals and when to test. Education provided today on: AADE Self-Care Behaviors: Healthy Eating: carbohydrate counting, weight reduction, heart healthy diet, eating out, portion control and label reading Being Active: relationship to blood glucose and describe appropriate activity program Monitoring: individual blood glucose targets and frequency of monitoring Pt verbalized understanding of concepts discussed and recommendations provided today. Education Materials Provided: Max Understanding Diabetes Booklet and Carbohydrate Counting ASSESSMENT: Becki verbalized basic rec's today. She has many knowledge gaps regarding her diabetesand would benefit from full diabetes ed. Will f/u with RNCDE and myself in one month. PLAN: See Patient Instructions for co-developed, patient-stated behavior change goals. AVS printed and provided to patient today. FOLLOW-UP: Follow-up appointment scheduled September 2016. Chart routed to referring provider. Time Spent: 60 minutes Encounter Type: Individual Any diabetes medication dose changes were made via the CDE Protocol and Collaborative Practice Agreement with the patient's referring provider. A copy of this encounter was shared with the provider. TELLER documented in this encounter Plan of Treatment Upcoming Encounters Date Type Specialty Care Team Description 05/19/2022 Office Visit ENT Dima Hidalgo M D [address] [facility] [place] [place] [address] (Sarah pino) 08/02/2022 Office Visit Neurology Yair Campos MD [address] [place] [address] [place] [address] (Sarah pino) documented as of this encounter Visit Diagnoses Diagnosis Diabetes mellitus without complication ( H) - Primary Type II or unspecified type diabetes almita litus without mention of complication, not stated as uncontrolled documented in this encounter Care Teams Property Preservation Specialist Relationship Specialty Start Date End Date Aleks Loepz MD PCP - General Family Practice 10/18/14 11/01/16 Tali Vilchis MD MD INTERNAL MEDICINE - 04/10/15 09/17/19 [address] [facility] ENDOCRINOLOGY, DIABETES [address] & METABOLISM [place], [place] [address] Anat Fuller MD Internal Medicine 04/10/1509/16 MD Renee [address] [facility] [address] [place], [place] [address] Janny Hutton, Physician Dry House Worker Physician Dry House Worker 06/1609/17/19 PA-C [address] [facility] [address] [place], [place] [id number] documented as of this encounter
--- OUTSIDE RECORDS SUMMARY | 2022-05-09 11:06 | XMS_ITS | Encounter Summary ---
:1955 Author Organization [place] Address [address] [facility] [place] [address] Care Team Providers Name Role Phone Aleks Lopez MD Primary Care Provider Tali Vilchis MD Unavailable Anat Fuller MD Unavailable [phone] Janny Hutton PA-C Unavailable [phone] Reason for Visit Reason Onset Date Comments Pre Visit Planning - Done 06/28/2016 appt 6 Encounter Details Date Type Department Care Team Description 06/28/2016 PRE VISIT [facility] Anat Lima Pre Visit Planning - Hepatology Clinic MD Renee Done (appt 07/01/2016) [address] [place] [address] [phone] (Wo rk) Social History Tobacco Use Types Packs/Day Years Used Date Smoking Tobacco: Never Smokeless Tobacco: Never Alcohol Use Standard Drinks/Week Comments No 0 (1 standard drink = 0.6 oz pure alcoho l) Sex Assigned at Date Recorded Female 08/17/2018 10:39 PM GOLF [employer]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 Yes BART SHABAZZ DIVING FISHER CLUB HEAD INSPECTOR AND ADJUSTER documented in this encounter Plan of Treatment Upcoming Encounters Date Type Specialty Care Team Description 05/19/2022 Office Visit ENT [facility]idalgo M D [address] [facility] [address] [place], [place] [address] (Wo rk) 08/02/2022 Office Visit Neurology Yair Campos MD [address] [place] [address] [address] [place], [place] [address] (Wo rk) documented as of this encounter Visit Diagnoses Not on filedocumented in this encounter Care Teams Public Health Sanitarian Relationship Specialty Start Date End Date Aleks Lopez MD PCP - General Family Practice 10/18/14 11/01/16 Tali Vilchis MD MD INTERNAL MEDICINE - 04/10/15 09/17/[address] [place] [address] ENDOCRINOLOGY, DIABETES [address] & METABOLISM [place], [place] [address] Anat Fuller MD Internal Medicine 04/10/1509/16 MD Renee [address] [facility] [address] [place], [place] [address] Janny Hutton, Physician Events And Promotions Assistant Physician Events And Promotions Assistant 06/1609/17/[address] [place] [address] [address] [place], [place] [address] documented as of this encounter
--- OUTSIDE RECORDS SUMMARY | 2022-05-09 11:06 | XMS_ITS | Encounter Summary ---
:1955 Author Organization [place] Address [facility] [place] [address] Care Team Providers Name Role Phone Aleks Lopez MD Primary Care Provider Tali Vilchis MD Unavailable Anat Fuller MD Unavailable [phone] Reason for Visit Reason Comments Consult Consult for abnormal LFT Encounter Details Date Type Department Care Team Description 05/26/2015 Office Visit Hepatology/Gastroente Anat Fuller Fat ty liver disease, nonalcoholic (Primary Dx); rologjames Duran MD Nonspecific abnormal [facility] Clinic [address] [place] [address] [place], [place] (Work) [address] [phone] Social History Tobacco Use Types Packs/Day Years Used Date Smoking Tobacco: Never Smokeless Tobacco: Never Alcohol Use Standard Drinks/Week Comments No 0 (1 standard drink = 0.6 oz pure alcoho l) Sex Assigned at Date Recorded Female 08/17/2018 10:39 PM MAILER APPRENTICE documented as of this encounter Last Filed Vital Signs Vital Sign Reading Time Taken Comments Blood Pressure 130/75 05/26/2015 9:24 AM MAILER APPRENTICE Pulse 77 05/26/2015 9:24 AM MAILER APPRENTICE Temperature - - Respiratory Rate - - Oxygen Saturation 95% 05/26/2015 9:24 AM MAILER APPRENTICE Inhaled Oxygen Concentration - - Weight 93.6 kg (206 lb 6.4 oz) 05/26/2015 9:24 AM MAILER APPRENTICE Height 158.8 cm (5' 2.5) 05/26/2015 9:24 AM MAILER APPRENTICE Body Mass Index 37.15 05/26/2015 9:24 AM MAILER APPRENTICE documented in this encounter Progress Notes Anat Fuller MD - 05/26/2015 10:00 AM CST SUBJECTIVE: Becki is a 60-year-old woman with nonalcoholic fatty liver disease. She had a liver biopsy in 2010 that showed moderate steatosis and mild steatohepatitis. There was no fibrosis at that time. She has struggled with her weight for a long time. She actually has managed to lose about 8-10 pounds. Unfortunately, she said her glucose monitor broke some time ago and she does not know how her diabetes control is doing. She has some right-sided intermittent discomfort that comes and goes. She has also had a recent history of kidney stones and wonders if it is related to that. She is not sure if there is any nausea associated with it. She said she has a bad memory. She has regular bowel movements, and the discomfort does not seem to be associated with constipation or change in bowel movements or having a bowel movement. She has had no blood in her stool. Since she was last seen in clinic, she has had no change in her health history. PHYSICAL EXAMINATION: VITAL SIGNS: Her blood pressure is 130/75, pulse 77, O2 sats 95%, weight 206. BMI is 37. GENERAL: No acute distress. HEENT: No icterus, no oral lesions. LYMPH: No supraclavicular or cervical lymphadenopathy. CARDIOVASCULAR: Regular rate and rhythm. CHEST: Lungs are clear. ABDOMEN: Bowel sounds are present. Abdomen is soft, nontender, nondistended. Liver is not enlarged. EXTREMITIES: No edema. SKIN: No rash. NEUROLOGIC: Speech is fluent and clear. No asterixis or tremor. LABORATORY DATA: Pending from today. ASSESSMENT AND PLAN: A 60-year-old woman with nonalcoholic fatty liver disease. A liver biopsy 4 years ago did not show any fibrosis. She does have mild steatohepatitis. Awaiting liver tests. She has not been following up and has not had liver tests for over 2 years. I encouraged her again to get her diabetes under control, continue to work on weight loss and get her labs once or twice yearly and be seen back in clinic next year. ER APPRENTICE documented in this encounter Nursing Notes Marlene Rebolledo - 05/26/2015 9:26 AM CST Chief Complaint Patient presents with ??? Consult Consult for abnormal LFT Initial BP 130/75 mmHg Pulse 77 Ht 1.588 m (5' 2.5) Wt 93.622 kg (206 lb 6.4 oz) BMI 37.13 kg/m2 SpO2 95% Estimated body mass index is 37.13 kg/(m^2) as calculated from the following: Height as of this encounter: 1.588 m (5' 2.5). Weight as of this encounter: 93.622 kg (206 lb 6.4 oz). BP completed using cuff size: large Marlene Rebolledo CANCER REGISTRY COORDINATOR ER APPRENTICE documented in this encounter Plan of Treatment Upcoming Encounters Date Type Specialty Care Team Description 05/19/2022 Office Visit ENT Dima Hidalgo M D [address] [place], [place] [address] (Sarah pino) 08/02/2022 Office Visit Neurology Yair Campos MD [address] [place], [place] [address] (Saarh pino) documented as of this encounter Procedures Procedure Name Priority Date/Time Associated Diagnosis Comme nts INR Routine 05/26/2015 9:49 AM Nonspecific abnormal R esults for this MAILER APPRENTICE results of liver procedure a re in function study the results section. HEPATIC FUNCTION Routine 05/26/2015 9:49 AM Nonspecific abnorm al Results for this PANEL MAILER APPRENTICE results of liver procedure a re in function study the results section. BASIC METABOLIC Routine 05/26/2015 9:49 AM Nonspecific abnorma l Results for this PANEL MAILER APPRENTICE results of liver procedure a re in function study the results section. CBC WITH PLATELETS Routine 05/26/2015 9:49 AM Nonspecific abno rmal Results for this MAILER APPRENTICE results of liver procedure a re in function study the results section. documented in this encounter Results (ABNORMAL) Basic metabolic panel (05/26/2015 9:49 AM MAILER APPRENTICE) [facility] gist Method Time Signature Sodium 137 133 - 144 [facility] mmol/L [facility] Potassium 3.8 3.4 - 5.3 [facility] mmol/L [facility] Chloride 104 94 - 109 [facility] mmol/L [facility] Carbon Dioxide 24 20 - 32 [facility] mmol/L [facility] Anion Gap 9 3 - 14 [facility] mmol/L [facility] Glucose 304 (H) 70 - 99 [facility] mg/dL [facility] Urea Nitrogen 10 7 - 30 [facility] mg/dL [facility] Creatinine 0.50 (L) 0.52 - [facility] 1.04 [facility] mg/dL [facility] GFR Estimate >90 >60 [facility] Non GFR Calc mL/min/1. [facility] 7m2 [facility] GFR Estimate >90 >60 [facility] If Black GFR Calc mL/min/1. [facility] 7m2 [facility] Calcium 8.7 8.5 - [facility] 10.1 [facility] mg/dL [facility] Specimen Anatomical Collection Method Collection Time Receive d Time (Source) Location / / Volume Laterality Blood specimen 05/26/2015 9:49 AM 015 (specimen) MAILER APPRENTICE 10:19 AM MAILER APPRENTICE Naseem Bravo MD LAB - BLOOD ORDERABLES Performing Organization Address City/[facility]/ZIP Code Phon e Number [address] INR (05/26/2015 9:49 AM MAILER APPRENTICE) athologist Signature INR 1.00 0.86 - 1.14 [facility] Specimen Anatomical Collection Method Collection Time Receive d Time (Source) Location / / Volume Laterality Blood specimen 05/26/2015 9:49 AM 015 (specimen) MAILER APPRENTICE 10:19 AM MAILER APPRENTICE Naseem Bravo MD LAB - BLOOD ORDERABLES Performing Organization Address City/State/ZIP Code Phon e Number [address] (ABNORMAL) CBC with platelets (05/26/2015 9:49 AM MAILER APPRENTICE) Patholo gist Method Time Signature WBC 7.7 4.0 - 11.0 [facility] 10e9/L [facility] RBC Count 5.28 (H) 3.8 - 5.2 [facility] 10e12/L [facility] Hemoglobin 14.5 11.7 - [facility] 15.7 g/dL [facility] Hematocrit 42.9 35.0 - [facility] 47.0 % [facility] MCV 81 78 - 100 [facility] fl [facility] MCH 27.5 26.5 - [facility] 33.0 pg [facility] MCHC 33.8 31.5 - [facility] 36.5 g/dL [facility] RDW 13.7 10.0 - [facility] 15.0 % [facility] Platelet Count 195 150 - 450 [facility] 10e9/L [facility] Specimen Anatomical Collection Method Collection Time Receive d Time (Source) Location / / Volume Laterality Blood specimen 05/26/2015 9:49 AM 015 (specimen) MAILER APPRENTICE 10:19 AM MAILER APPRENTICE Naseem Bravo MD LAB - BLOOD ORDERABLES Performing Organization Address City/State/[facility] Code Phon e Number [facility] [address] (ABNORMAL) Hepatic panel (05/26/2015 9:49 AM MAILER APPRENTICE) Analysis Performed At Patho logist Time Signature Bilirubin Direct 0.1 0.0 - 0.2 [facility] mg/dL [facility] Bilirubin Total 0.6 0.2 - 1.3 [facility] mg/dL [facility] Albumin 3.4 3.4 - 5.0 [facility] g/dL [facility] Protein Total 7.2 6.8 - 8.8 [facility] g/dL [facility] Alkaline 93 40 - 150 [facility] Phosphatase U/L [facility] ALT 98 (H) 0 - 50 U/L [facility] AST 42 0 - 45 U/L [facility] Specimen Anatomical Collection Method Collection Time Receive d Time (Source) Location / / Volume Laterality Blood specimen 05/26/2015 9:49 AM 015 (specimen) MAILER APPRENTICE 10:19 AM MAILER APPRENTICE Naseem Bravo MD LAB - BLOOD ORDERABLES Performing Organization Address City/State/ZIP Code Phon e Number [facility] [address] [place] [address] [facility] documented in this encounter Visit Diagnoses Diagnosis Fatty liver disease, nonalcoholic - Prim mi Other chronic nonalcoholic liver disease Nonspecific abnormal results of liver fu nction study documented in this encounter Care Teams Operations Superintendent Relationship Specialty Start Date End Date Aleks Lopez MD PCP - General Family Practice 10/18/14 11/01/16 Tali Vilchis MD MD INTERNAL MEDICINE - 04/10/15 09/17/19 [address] [facility] 101 ENDOCRINOLOGY, DIABETES & [place] [id number] METABOLISM Anat Fuller MD Internal Medicine 04/10/1509/16 MD Renee [facility] [place], [place] [address] documented as of this encounter
--- OUTSIDE RECORDS SUMMARY | 2022-05-09 11:06 | XMS_ITS | Encounter Summary ---
:1955 Author Organization [place] Address [address] [facility] [place] [address] Care Team Providers Name Role Phone Aleks Lopez MD Primary Care Provider Tali Vilchis MD Unavailable Anat Fuller MD Unavailable [phone] Janny Hutton PA-C Unavailable [phone] Reason for Visit Reason Comments RECHECK f/u Encounter Details Date Type Department Care Team Description 07/01/2016 Office Visit [facility] Anat Fuller LD (nonalcoholic Hepatology Clinic MD Renee fatty liver disease) [address] PWB (Primary Dx) 9[address] [facility] [address] [place] [id number] (Wo rk) Social History Tobacco Use Types Packs/Day Years Used Date Smoking Tobacco: Never Smokeless Tobacco: Never Alcohol Use Standard Drinks/Week Comments No 0 (1 standard drink = 0.6 oz pure alcoho l) Sex Assigned at Date Recorded Female 08/17/2018 10:39 PM SOURCING ASSOCIATE documented as of this encounter Last Filed Vital Signs Vital Sign Reading Time Taken Comments Blood Pressure 128/84 07/01/2016 11:11 AM SOURCING ASSOCIATE Pulse 79 07/01/2016 11:11 AM SOURCING ASSOCIATE Temperature 36.8 ??C (98.3 ??F) 07/01/2016 11:11 AM SOURCING ASSOCIATE Respiratory Rate - - Oxygen Saturation 98% 07/01/2016 11:11 AM SOURCING ASSOCIATE Inhaled Oxygen Concentration - - Weight 86.6 kg (191 lb) 07/01/2016 11:11 AM SOURCING ASSOCIATE Height 157.5 cm (5' 2) 07/01/2016 11:11 AM SOURCING ASSOCIATE Body Mass Index 34.93 07/01/2016 11:11 AM SOURCING ASSOCIATE documented in this encounter Progress Notes Anat Fuller MD - 07/01/2016 11:27 AM CST SUBJECTIVE:?? Becki is a 61-year-old woman with nonalcoholic fatty liver disease.?? She had a liver biopsy in 2010 that showed moderate steatosis and mild steatohepatitis. There was no fibrosis at that time. ? She has struggled with her weight for a long time.?? She actually has managed to lose about 8-10 pounds.?? SHe is trying to get better control of her diabetes.? She has regular bowel movements, and the discomfort does not seem to be associated with constipation or change in bowel movements or having a bowel movement.?? She has had no blood in her stool. ? Since she was last seen in clinic, she has had no change in her health history. ? PHYSICAL EXAMINATION: ?? Vitals: BP 128/84 mmHg Pulse 79 Temp(Src) 98.3 ??F (36.8 ??C) (Oral) Ht 1.575 m (5' 2) Wt 86.637 kg (191 lb) BMI 34.93 kg/m2 SpO2 98% BMI= Body mass index is 34.93 kg/(m^2). GENERAL:?? No acute distress. ?? HEENT:?? No icterus, no oral lesions. ?? LYMPH:?? No supraclavicular or cervical lymphadenopathy. ?? CARDIOVASCULAR:?? Regular rate and rhythm. ?? CHEST:?? Lungs are clear. ?? ABDOMEN:?? Bowel sounds are present.?? Abdomen is soft, nontender, nondistended.?? Liver is not enlarged. ?? EXTREMITIES:?? No edema. ?? SKIN:?? No rash. ?? NEUROLOGIC:?? Speech is fluent and clear.?? No asterixis or tremor. ? LABORATORY DATA:?? Pending from today. ? ASSESSMENT AND PLAN:?? A 61-year-old woman with nonalcoholic fatty liver disease.?? A liver biopsy 5years ago did not show any fibrosis.?? She does have mild steatohepatitis.?? I encouraged her again to get her diabetes under control, continue to work on weight loss and get her labs once or twice yearly and be seen back in clinic in 1-2 years. ??we talked quite a bit about diet and life style, Discussed the natural history of fatty liver disease. .This was a 20 minute visit, over 50% counseling and coordination of care. CING ASSOCIATE documented in this encounter Nursing Notes Sadie Duncan CMA - 07/01/2016 11:13 AM CST Chief Complaint Patient presents with ??? RECHECK f/u Initial BP 128/84 mmHg Pulse 79 Temp(Src) 98.3 ??F (36.8 ??C) (Oral) Ht 1.575 m (5' 2) Wt 86.637 kg (191 lb) BMI 34.93 kg/m2 SpO2 98% Estimated body mass index is 34.93 kg/(m^2) as calculated from the following: Height as of this encounter: 1.575 m (5' 2). Weight as of this encounter: 86.637 kg (191 lb). BP completed using cuff size: large Sadie Duncan CMA CING ASSOCIATE documented in this encounter Plan of Treatment Upcoming Encounters Date Type Specialty Care Team Description 05/19/2022 Office Visit ENT Dima Hidalgo M D [address] [place], [place] [address] (Sarah pino) 08/02/2022 Office Visit Neurology Yair Campos MD [address] [place] [address] (Sarah pino) documented as of this encounter Visit Diagnoses Diagnosis NAFLD (nonalcoholic fatty liver disease) - Primary Other chronic nonalcoholic liver disease documented in this encounter Care Teams Scallop Cutter Relationship Specialty Start Date End Date Aleks Lopez MD PCP - General Family Practice 10/18/14 11/01/16 Tali Vilchis MD MD INTERNAL MEDICINE - 04/10/15 09/17/19 [address] [facility] ENDOCRINOLOGY, DIABETES 101 & [place] [address] Anat Fuller MD Internal Medicine 04/10/1509/16 MD Renee [address] [facility] [address] [place] [address] Janny Hutton, Physician Manager Highway Physician Manager Highway 06/1609/17/19 PA-C [address] [facility] [address] [place] [address] documented as of this encounter
--- OUTSIDE RECORDS SUMMARY | 2022-05-09 11:06 | XMS_ITS | Encounter Summary ---
:1955 Author Organization [place] Address [address] [facility] [place] [address] Care Team Providers Name Role Phone Aleks Lopez MD Primary Care Provider Tali Vilchis MD Unavailable Anat Fuller MD Unavailable [phone] Janny Hutton PA-C Unavailable [phone] Encounter Details Date Type Department Care Team Description 07/01/2015 Orders Only Diabetes and Tali Vilchis Subclinical Endocrine MD Kaitlynn hypothyroidism (Primary 6th Floor, Clinic [address] [place] [address] Dx) Efrain Kemp [facility] [address] [phone] [facility] ([place]) [place] [address] Social History Tobacco Use Types Packs/Day Years Used Date Smoking Tobacco: Never Smokeless Tobacco: Never Alcohol Use Standard Drinks/Week Comments No 0 (1 standard drink = 0.6 oz pure alcoho l) Sex Assigned at Date Recorded Female 08/17/2018 10:39 PM BROACH SETTER documented as of this encounter Plan of Treatment Upcoming Encounters Date Type Specialty Care Team Description 05/19/2022 Office Visit ENT Dima Hidalgo M D [address] [place] [address] (Wo rk) 08/02/2022 Office Visit Neurology Yair Campos MD [address] [place], [place] [address] [place] [address] (Wo rk) documented as of this encounter Results T4 free (08/09/2016 12:56 PM BROACH SETTER) athologist Signature T4 Free 1.27 0.76 - 1.46 [facility] ng/dL [facility] Specimen Anatomical Collection Method Collection Time Receive d Time (Source) Location / / Volume Laterality Blood specimen 08/09/2016 12:56 7 (specimen) PM BROACH SETTER 12:58 PM BROACH SETTER Tali Vilchis MD LAB - BLOOD ORDERABLES Performing Organization Address City/[facility]/ZIP Code Phon e Number [address] [address] [facility] TSH (08/09/2016 12:56 PM BROACH SETTER) athologist Signature TSH 2.97 0.40 - 4.00 [facility] mU/L [facility] Specimen Anatomical Collection Method Collection Time Receive d Time (Source) Location / / Volume Laterality Blood specimen 08/09/2016 12:56 7 (specimen) PM BROACH SETTER 12:58 PM BROACH SETTER Tali Vilchis MD LAB - BLOOD ORDERABLES Performing Organization Address City/State/ZIP Code Phon e Number [address] [address] [facility] documented in this encounter Visit Diagnoses Diagnosis Subclinical hypothyroidism - Primary Other specified acquired hypothyroidism documented in this encounter Care Teams Home Maker Relationship Specialty Start Date End Date Aleks Lopez MD PCP - General Family Practice 10/18/14 11/01/16 Tali Vilchis MD MD INTERNAL MEDICINE - 04/10/15 09/17/[address] [place] [address] ENDOCRINOLOGY, DIABETES 101 & [place] [address] Anat Fuller MD Internal Medicine 04/10/1509/16 MD Renee [address] [place] [address] [address] [place] [address] Janny Hutton, Physician Plumber Cub Physician Plumber Cub 06/1609/17/19 CARLA [address] [facility] 803 [place], [place] [address] documented as of this encounter
--- OUTSIDE RECORDS SUMMARY | 2022-05-09 11:06 | XMS_ITS | Encounter Summary ---
:1955 Author Organization [place] Address [address]50 [facility] [place] [address] Care Team Providers Name Role Phone Aleks Lopez MD Primary Care Provider Tali Vilchis MD Unavailable Anat Fullre MD Unavailable [phone] Janny Hutton PA-C Unavailable [phone] Reason for Visit Reason Onset Date Comments Previsit 07/24/2015 Encounter Details Date Type Department Care Team Description 07/24/2015 PRE VISIT [facility] Dewayne Dave DPM Previsit [address] 5536 [phone] (Wo rk) Social History Tobacco Use Types Packs/Day Years Used Date Smoking Tobacco: Never Smokeless Tobacco: Never Alcohol Use Standard Drinks/Week Comments No 0 (1 standard drink = 0.6 oz pure alcoho l) Sex Assigned at Date Recorded Female 08/17/2018 10:39 PM PAVING BLOCK CUTTER documented as of this encounter Miscellaneous Notes Telephone Encounter - Phylicia Blackburn CMA - 08/07/2015 8:11 AM CST Patient seen in clinic by Dr. Zendejas 07/28/2015 NG BLOCK CUTTER Telephone Encounter - Phylicia Blackburn CMA - 07/24/2015 10:55 AM CST Attempted to contact patient for pre-visit screening. No answer, LVM for a return call to the clinic. NG BLOCK CUTTER documented in this encounter Plan of Treatment Upcoming Encounters Date Type Specialty Care Team Description 05/19/2022 Office Visit E[facility] Dima [facility]idalgo M D [address] [facility] [place], [place] [address] (Wo rk) 08/02/2022 Office Visit Neurology Yair Campos MD [address] [facility] [address] [place], [place] [address] (Wo rk) documented as of this encounter Visit Diagnoses Not on filedocumented in this encounter Care Teams Master Fisher Relationship Specialty Start Date End Date Aleks Lopez MD PCP - General Family Practice 10/18/14 11/01/16 Tali Vilchis MD MD INTERNAL MEDICINE - 04/10/15 09/17/[address] [place] [address] ENDOCRINOLOGY, DIABETES 101 & [place] [address] Anat Fuller MD Internal Medicine 04/10/1509/16 MD Renee 6 [facility] [address] [place] [address] Janny Hutton, Physician Natural Resources Professor Physician Natural Resources Professor 06/1609/17/19 PA-C [address] [place] [address] 803 [place], [place] [address] documented as of this encounter
--- OUTSIDE RECORDS SUMMARY | 2022-05-09 11:06 | XMS_ITS | Encounter Summary ---
:1955 Author Organization [place] Address [address] [facility] [place] [address] Care Team Providers Name Role Phone Aleks Lopez MD Primary Care Provider Tali Vilchis MD Unavailable Anat Fuller MD Unavailable [phone] Janny Hutton PA-C Unavailable [phone] Reason for Visit Reason Onset Date Comments Refill Request 08/08/2016 blood glucose monito ring (SOFTCLIX) lancets Encounter Details Date Type Department Care Team Description 08/08/2016 [facility] Tali Vilchis, Refill Request (blood [address] [facility] SE glucose monitoring 3rd Floor [address] [facility] (SOFTCLIX) lancets) [place], [place] [address] [place] [address] [phone] (Wo rk) Social History Tobacco Use Types Packs/Day Years Used Date Smoking Tobacco: Never Smokeless Tobacco: Never Alcohol Use Standard Drinks/Week Comments No 0 (1 standard drink = 0.6 oz pure alcoho l) Sex Assigned at Date Recorded Female 08/17/2018 10:39 PM TECHNICAL MARKETING CONSULTANT documented as of this encounter Miscellaneous Notes Telephone Encounter - Ceci Linares RN - 08/08/2016 10:24 AM CST blood glucose monitoring (SOFTCLIX) lancets Last Written Prescription Date: 06/30/15 Last Fill Quantity: 2 boxes, # refills: 3 Last Office Visit with G, P or [facility] prescribing provider: 06/30/15 Future visits: 09/28/16 NICAL MARKETING CONSULTANT documented in this encounter Plan of Treatment Upcoming Encounters Date Type Specialty Care Team Description 05/19/2022 Office Visit ENT Dima Hidalgo M D [address] [facility] [place], [place] [address] (Wo rk) 08/02/2022 Office Visit Neurology Yair Campos MD [address] [place] [address] [address] [place], [place] [phone] (Wo rk) documented as of this encounter Visit Diagnoses Diagnosis Type 2 diabetes mellitus without complic ation (H) - Primary documented in this encounter Care Teams China Painter Relationship Specialty Start Date End Date Aleks Lopez MD PCP - General Family Practice 10/18/14 11/01/16 Tali Vilchis MD MD INTERNAL MEDICINE - 04/10/15 09/17/[address] [place] [address] ENDOCRINOLOGY, DIABETES 101 & [place] [address] Anat Fuller MD Internal Medicine 04/10/1509/16 MD Renee 6 [facility] [address] [place] [address] Janny Hutton, Physician Supplemental Nurse Physician Supplemental Nurse 06/1609/17/19 PA-C [address] [place] [address] 803 [place], [place] [phone] documented as of this encounter
--- OUTSIDE RECORDS SUMMARY | 2022-05-09 11:06 | XMS_ITS | Encounter Summary ---
:1955 Author Organization [facility] Address [address] [facility] [place] [address] Care Team Providers Name Role Phone Aleks Lopez MD Primary Care Provider Tali Vilcihs MD Unavailable Anat Fuller MD Unavailable [phone] Janny Hutton PA-C Unavailable [phone] Reason for Referral Nutrition - Closed Specialty Diagnoses / Procedures Referred By Contact Refer red To Contact Diagnoses Type 2 diabetes mellitus without complication, without long-term current use of insulin (H) Mare Tracey PA-C [address] [place] [address] [phone] Referral ID Status Reason Start Date Expiration Date Visits Requ ested Visits Authorized [id number] Closed 08/09/2016 08/09/2017 1 1 CUTTER Reason for Visit Reason Comments RECHECK return diabetes Encounter Details Date Type Department Care Team Description 08/09/2016 Office Visit [facility] EndocrinMare Cespedes, Type 2 diabetes [address] [facility] CARLA mellitus without [address] [place] [address] complication, without [place], [place] long-term current use [id number] of insulin (H) [phone] (Primary Dx) (Work) Social History Tobacco Use Types Packs/Day Years Used Date Smoking Tobacco: Never Smokeless Tobacco: Never Alcohol Use Standard Drinks/Week Comments No 0 (1 standard drink = 0.6 oz pure alcoho l) Sex Assigned at Date Recorded Female 08/17/2018 10:39 PM WEED CUTTER documented as of this encounter Last Filed Vital Signs Vital Sign Reading Time Taken Comments Blood Pressure 126/78 08/09/2016 8:55 AM WEED CUTTER Pulse 78 08/09/2016 8:55 AM WEED CUTTER Temperature - - Respiratory Rate - - Oxygen Saturation - - Inhaled Oxygen Concentration - - Weight 89.8 kg (198 lb) 08/09/2016 8:55 AM WEED CUTTER Height 157.5 cm (5' 2) 08/09/2016 8:55 AM WEED CUTTER Body Mass Index 36.21 08/09/2016 8:55 AM WEED CUTTER documented in this encounter Patient Instructions Patient InstructionsMare Tracey PA-C - 08/09/2016 9:40 AM CST Please increase your Metformin to 1500 mg (three tablets) each morning. After 2- 3 weeks when digestion adjusts, please increase to 4 tablets (2000 mg) daily if your stomach tolerates. It may be helpfulto take some of the tablets with another meal. We may want to add other medications or possibly insulins at some point, but let's work on diet and activity first. We will check your electrolytes including potassium, your kidney function and thyroid. I will My Chart results and any medication changes in 2-3 days. Please let me know that you have received message and of any questions. You do have a lot going on, much may be explained by high blood sugars and thyroid disease, but I doencourage you to see your primary care provider to discuss. My best wishes, Mare Tracey PA-C, [facility] Diabetes, Endocrinology, and Metabolism [phone] Appointments/Nurse [phone] pager [phone] nurse line [phone] URGENTafter hours/weekend Cyber Security Administrator construction electrician To expedite your medication refill(s), please contact your pharmacy and have them fax a refill request to: [phone]. *Please allow 3 business days for routine medication refills. *Please allow 5 business days for controlled substance medication refills. For scheduling appointments (including lab work), please request an appointment through [employer], or call: [phone]. For questions for your provider or the endocrine nurse, please send a [employer] message. For after-hours urgent issues, please dial , and ask to speak with the EndocrinologistOn-Call. Please Note: If you are active on [employer], all future test results will be sent by [employer] message only and will no longer be sent by mail. You may also receive communication directly from your physician. CUTTER documented in this encounter Progress Notes Mare Tracey PA-C - 08/09/2016 9:25 AM CST Diabetes Consult Note Becki Ridley is a 61 year old known to have diabetes since at least 2011. She reports that she hasbeen in denial about her disease and her ability to do anything about it, but now is caring for her grandchild and wants to learn a lot more so that she can take better care of herself. She wants to bein better shape to be active and involved in her grandchild's life. To this end, she has already scheduled visits with diabetic education and nutrition. She reports that she has moved from [place] to [facility] where she lives with her daughter, son-in-law and grandchild who she cares for generally 2 days/week. She has a sperate living space, a [id number] apartment within the home. She is in theprocess of applying for disability so she does not want to leave her primary care provider in [place], though she does not go there often, again she feels she has neglected this and hasn't gone for sometime. She has seen a therapist to help with her mood systems. She notes that she was diagnosed withfibromyalgia perhaps 12 years ago at [facility], but is unsure of this diagnosis, wonders if it migh t be contributing to her body ache, fatigue, and mood symptoms. I believe her mother takes Glipizideand an injection and thought she might need same, but she would like to gradually lose weight and avoid this. She really wants to work on diet. We reviewed glucometer data together. It revealed: hyperglycemia. 15 tests in 30 days. Avg 261, Rng - 327. Fasting 184 - 271. Evening 253 - 327. History of Diabetes monitoring and complications/ prevention: CAD: Last eye exam results: Last dental exam: Microalbuminuria: HTN: On statin: On ASA: Depression: ED: has a past medical history of Hypertension; Asthma; Arthritis; Restrictive lung disease; Angioedema; Sleep apnea; Restless legs syndrome; Depression; VILLAREAL (nonalcoholic steatohepatitis); Lower extremity edema; Diabetes mellitus (H); Blood transfusion; and Thyroid disease. She also has no past medicalhistory of COPD (chronic obstructive pulmonary disease) (H). Immunization History Administered Date(s) Administered ??? Tdap (Adacel,Boostrix) 05/27/2014 Social History Social History ??? Marital Status: Spouse Name: N/A ??? Number of Children: N/A ??? Years of Education: N/A Occupational History ??? Not on file. Social History Main Topics ??? Smoking status: Never Smoker ??? Smokeless tobacco: Never Used ??? Alcohol Use: No ??? Drug Use: No ??? Sexual Activity: No Other Topics Concern ??? Not on file Social History Narrative Denise's family history includes Anxiety Disorder in her daughter; CANCER in her mother; Dementia in her maternal aunt, maternal aunt, maternal aunt, maternal aunt, and mother; Depression in her daughter,father, maternal grandmother, and mother; Hypertension in her father and mother; Thyroid Disease in her daughter. ROS: She feels her temperature is not stable and plans to get previously ordered thyroid tests today. Patient denies symptoms of hypo and hyperglycemia except complains of fatigue, body ache. Denise reports a lot of difficulties with allergies and sinus congestion. She also has had a cold and has difficulty sleeping. She has difficulty when walking up more than one flight of stairs, but does not have exertional chest pressure or pain. Sh has p[alpitations at times with anxiety or at rest. There has been no pain with or other changes in urination or itching or pain in genital areas. She has both diarrhea and constipation, but believes could tolerate more Metformin. Patient denies any noted swelling in feet, ankles or otherwise, loss of sensation or pain in feet orother areas. She has ongoing difficulties with depressed mood, insomnia, though no anhedonia and less worry than previous. She is feeling more optimistic about her ability to improve her life and be happy and feel better. Exam: BP 126/78 mmHg Pulse 78 Ht 1.575 m (5' 2) Wt 89.812 kg (198 lb) BMI 36.21 kg/m2 General: This is an articulate obese F with warm affect and appropriate eye contact. Psych: Mood is good, affect is appropriate. Thought form and content are fluid and coherent. HEENT: Eyes and sclera are clear, limited conjunctival injection noted. Extraocular movements are intact without proptosis. Nares are patent, mucous membranes moist. Neck: No masses or JVD are noted. Resp: Easy and unlabored breathing. Lungs are clear to auscultation without RWR. Neuro: Alert and oriented, communicating clearly. Normal gait and station. Ext: no swelling or edema appreciated. Data: Last Basic Metabolic Panel: NA 136 07/01/2016 POTASSIUM 4.1 07/01/2016 CHLORIDE 103 07/01/2016 JOSIAH 9.0 07/01/2016 CO2 24 07/01/2016 BUN 10 07/01/2016 CR 0.50 07/01/2016 CR 121 03/02/2011 GLC 341 07/01/2016 Lab Results Component Value Date A1C 9.2* 06/30/2015 A1C 9.0* 07/04/2011 A1C 6.3* 03/02/2011 A1C 7.2* 04/21/2010 MICROL 8 06/30/2015 No results found for this basename: microalbumin No results found for: CPEPT, GADAB, ISCAB No results found for: CHOL No results found for: HDL No results found for: LDL No results found for: TRIG No results found for: CHOLHDLRATIO Most recent eye exam date : Not Found Assessment/Plan: This is an obese type 2 diabetic F who after minimal attention to her diabetes in recent years is here today motivated to improve her disease management as evidenced by having recently restarted checking blood glucose and having secured appointments with . She has numerous health concerns and does need close follow-up with primary care provider. DM2: Uncontrolled with A1C 10.6 today. She is motivated to maximize lifestyle and reinforced that indeed this is the most effective strategy. She is concerned about pain issues and reviewed literature supporting that if indeed has fibromyalgia, most efficacious treatments are aerobic and strength training, also with evidence for stretching and balance exercises. We discussed opportunities for exercise, encouraged follow-up with diet education and also will increase Metformin to 2000 mg daily over the next month. She is due for an eye exam and has vision concerns. She states that she will schedule this. Obesity: As above. Option to consider referral to weight loss clinic. TSH will be evaluated today. Primary Care/ Care coordination: Discussed if she will continue seeing Dr. Lopez or if it might be beneficial to move closer to her current home so that she can be seen with greater regularity and address he many health concerns. She states that she will see Dr. Lopez. Hypothyroidism: She is taking medication daily. Levels to be evaluated today. >50% of 45 minute visit spent in counseling, education and coordination of care related to options for better glycemic control as well as preventing, detecting, and treating hypoglycemia. It is my privilege to be involved in the care of the above patient. Mare Tracey PA-C, MPAS [facility] Diabetes, Endocrinology, and Metabolism [phone] Appointments/Nurse [phone] pager [phone] nurse line Answers for HPI/ROS submitted by the patient on 08/08/2016 General Symptoms: Yes Skin Symptoms: Yes HENT Symptoms: Yes EYE SYMPTOMS: Yes HEART SYMPTOMS: Yes LUNG SYMPTOMS: Yes INTESTINAL SYMPTOMS: Yes URINARY SYMPTOMS: Yes GYNECOLOGIC SYMPTOMS: Yes BREAST SYMPTOMS: No SKELETAL SYMPTOMS: Yes BLOOD SYMPTOMS: Yes NERVOUS SYSTEM SYMPTOMS: Yes MENTAL HEALTH SYMPTOMS: Yes Fever: Yes Loss of appetite: Yes Weight loss: Yes Weight gain: No Fatigue: Yes Night sweats: Yes Chills: Yes Increased stress: No Excessive hunger: No Excessive thirst: Yes Feeling hot or cold when others believe the temperature is normal: Yes Loss of height: No Post-operative complications: No Surgical site pain: No Hallucinations: No Change in or Loss of Energy: Yes Hyperactivity: No Confusion: Yes Changes in hair: Yes Changes in moles/ cyr: No Itching: Yes Rashes: Yes Changes in nails: No Acne: No Hair in places you don't want it: Yes Change in facial hair: No Warts: No Non-healing sores: No Scarring: No Flaking of skin: Yes Color changes of hands/feet in cold : No Sun sensitivity: No Skin thickening: No Ear pain: No Ear discharge: No Hearing loss: Yes Tinnitus: Yes Nosebleeds: No Congestion: Yes Sinus pain: Yes Trouble swallowing: Yes Voice hoarseness: Yes Mouth sores: No Sore throat: Yes Tooth pain: No Gum tenderness: No Bleeding gums: No Change in taste: No Change in sense of smell: No Dry mouth: Yes Hearing aid used: No Neck lump: No Eye pain: Yes Vision loss: No Dry eyes: No Watery eyes: No Eye bulging: No Double vision: No Flashing of lights: Yes Spots: Yes Floaters: No Redness: No Crossed eyes: No Tunnel Vision: No Yellowing of eyes: No Eye irritation: No Cough: Yes Sputum or phlegm: Yes Coughing up blood: No Difficulty breathing or shortness of breath: Yes Snoring: Yes Wheezing: Yes Difficulty breathing on exertion: Yes Respiratory pain: Yes Nighttime Cough: Yes Difficulty breathing when lying flat: Yes Chest pain or pressure: Yes Fast or irregular heartbeat: No Pain in legs with walking: Yes Swelling in feet or ankles: No Trouble breathing while lying down: Yes Fingers or Toes appear blue: No High blood pressure: No Low blood pressure: No Fainting: Yes Murmurs: No Chest pain on exertion: No Chest pain at rest: Yes Cramping pain in leg during exercise: No Pacemaker: No Varicose veins: No Edema or swelling: Yes Fast heart beat: No Wake up at night with shortness of breath: Yes Heart flutters: Yes Light-headedness: Yes Exercise intolerance: No Heart burn or indigestion: Yes Nausea: Yes Vomiting: No Abdominal pain: No Bloating: Yes Constipation: No Diarrhea: Yes Blood in stool: No Black stools: No Rectal or Anal pain: No Fecal incontinence: No Rectal bleeding: No Yellowing of skin or eyes: No Vomit with blood: No Change in stools: No Hemorrhoids: Yes Trouble holding urine or incontinence: No Pain or burning: Yes Trouble starting or stopping: No Increased frequency of urination: No Blood in urine: No Decreased frequency of urination: No Frequent nighttime urination: No Flank pain: No Difficulty emptying bladder: No Back pain: Yes Muscle aches: Yes Neck pain: Yes Swollen joints: Yes Joint pain: Yes Bone pain: Yes Muscle cramps: Yes Muscle weakness: Yes Joint stiffness: Yes Bone fracture: No Anemia: No Swollen glands: Yes Easy bleeding or bruising: No Trouble with coordination: Yes Dizziness or trouble with balance: Yes Fainting or black-out spells: Yes Memory loss: Yes Headache: Yes Seizures: No Speech problems: No Tingling: Yes Tremor: No Weakness: Yes Difficulty walking: No Paralysis: No Numbness: No Bleeding or spotting between periods: No Heavy or painful periods: No Irregular periods: No Vaginal discharge: Yes Hot flashes: Yes Vaginal dryness: Yes Genital ulcers: No Reduced libido: No Painful intercourse: No Difficulty with sexual arousal: No Post-menopausal bleeding: No Nervous or Anxious: No Depression: Yes Trouble sleeping: Yes Trouble thinking or concentrating: Yes Mood changes: Yes Panic attacks: Yes CUTTER documented in this encounter Nursing Notes Tenisha Bhardwaj CMA - 08/09/2016 8:55 AM CST Capillary puncture performed for Hemoglobin A1C test. Patient tolerated well. CUTTER Tenisha Bhardwaj CMA - 08/09/2016 8:54 AM CST Chief Complaint Patient presents with ??? RECHECK return diabetes Tenisha Bhardwaj CMA CUTTER documented in this encounter Plan of Treatment Upcoming Encounters Date Type Specialty Care Team Description 05/19/2022 Office Visit ENT Dima Hidalgo M D [address] [place], [place] [address] (Wo rk) 08/02/2022 Office Visit Neurology Yair Campos MD [address] [place] [address] [phone] (Wo rk) Scheduled Referrals Name Type Priority Associated Diagnoses Order S chedule NUTRITION REFERRAL Referral Routine Type 2 diabetes mellit us Ordered: 08/09/2016 without complication, without long-term current use of insulin (H) documented as of this encounter Procedures Procedure Name Priority Date/Time Associated Comments Diagnosis ALBUMIN RANDOM URINE Routine 08/09/2016 12:57 Type 2 diabetes Results for this QUANTITATIVE PM WEED CUTTER mellitus without procedure a re in complication, the results without long-term section. current use of insulin (H) COMPREHENSIVE Routine 08/09/2016 12:57 Type 2 diabetes Results for this METABOLIC PANEL PM WEED CUTTER mellitus without procedur e are in complication, the results without long-term section. current use of insulin (H) HEMOGLOBIN A1C POCT Routine 08/09/2016 Type 2 diabetes Resul ts for this mellitus without procedure a re in complication, the results without long-term section. current use of insulin (H) documented in this encounter Results (ABNORMAL) TSH (11/20/2017 12:51 PM CDT) P athologist Signature TSH 4.22 (H) 0.40 - 4.00 11/20/2017 [facility] mU/L 1:32 PM CDT [facility] Specimen Anatomical Collection Method Collection Time Receive d Time (Source) Location / / Volume Laterality Blood specimen 11/20/2017 12:51 8 (specimen) PM CDT 12:56 PM CDT Mare Tracey PA-C LAB - BLOOD ORDERABLES Performing Organization Address City/State/ZIP Code Phon e Number [address] [address] [facility] Albumin Random Urine Quantitative (08/09/2016 12:57 PM WEED CUTTER) P athologist Signature Creatinine 96 mg/dL [place] Urine [facility] Albumin Urine 10 mg/L [place] mg/L [facility] Albumin Urine 9.93 0 - 25 [place] mg/g Cr mg/g Cr [facility] Specimen Anatomical Collection Method Collection Time Receive d Time (Source) Location / / Volume Laterality Urine specimen 08/09/2016 12:57 7 (specimen) PM WEED CUTTER 12:59 PM WEED CUTTER Mare Tracey PA-C LAB - URINE ORDERABLES Performing Organization Address City/State/ZIP Code Phon e Number M [facility] [address] [address] [facility] [address] [address], [place] [phone] (ABNORMAL) Comprehensive metabolic panel (08/09/2016 12:57 PM WEED CUTTER) [facility] Method Time Signature Sodium 139 133 - 144 [facility] mmol/L [facility] Potassium 3.8 3.4 - 5.3 [facility] mmol/L [facility] Chloride 106 94 - 109 [facility] mmol/L [facility] Carbon Dioxide 23 20 - 32 [facility] mmol/L [facility] Anion Gap 10 3 - 14 [facility] mmol/L [facility] Glucose 193 (H) 70 - 99 [facility] mg/dL [facility] Urea Nitrogen 9 7 - 30 [facility] mg/dL [facility] Creatinine 0.47 (L) 0.52 - [facility] 1.04 [place] mg/dL [facility] GFR Estimate >90 >60 [facility] Non GFR Calc mL/min/1. [place] 7m2 [facility] GFR Estimate If >90 >60 [facility] Black GFR Calc mL/min/1. [place] 7m2 [facility] Calcium 8.8 8.5 - [facility] 10.1 [place] mg/dL [facility] Bilirubin Total 0.8 0.2 - 1.3 [facility] mg/dL [facility] Albumin 3.5 3.4 - 5.0 [facility] g/dL [facility] Protein Total 7.0 6.8 - 8.8 [facility] g/dL [facility] Alkaline 72 40 - 150 [facility] Phosphatase U/L [facility] ALT 76 (H) 0 - 50 [facility] U/L [facility] AST 48 (H) 0 - 45 [facility] U/L [facility] Specimen Anatomical Collection Method Collection Time Receive d Time (Source) Location / / Volume Laterality Blood specimen 08/09/2016 12:57 7 (specimen) PM WEED CUTTER 12:59 PM WEED CUTTER Mare Tracey PA-C LAB - BLOOD ORDERABLES Performing Organization Address City/State/ZIP Code Phon e Number [address] [address] [facility] (ABNORMAL) Hemoglobin A1c POCT (08/09/2016) Analysis Performed At Patho logist Time Signature Hemoglobin A1C 10.6 (A) 4.3 - 6 % POCT Specimen (Source) Anatomical Location Collection Method / Collectio n Time Received Time / Laterality Volume Whole blood 08/09/2016 specimen (specimen) Mare Tracey PA-C LAB - ENTER/EDIT POCT documented in this encounter Visit Diagnoses Diagnosis Type 2 diabetes mellitus without complic ation, without long-term current use of insulin (H) - Primary documented in this encounter Care Teams Wad Printing 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
--- OUTSIDE RECORDS SUMMARY | 2022-05-09 11:06 | XMS_ITS | Encounter Summary ---
:1955 Author Organization [place] Address [address] [facility] [place] [address] Care Team Providers Name Role Phone Aleks Lopez MD Primary Care Provider Tali Vilchis MD Unavailable Anat Fuller MD Unavailable [phone] Janny Hutton PA-C Unavailable [phone] Reason for Visit Reason Onset Date Comments Panel Management 12/24/2015 Encounter Details Date Type Department Care Team Description 12/24/2015 Telephone [facility] Odessa Antonio MD Panel Management [address] [place] [phone] [facility] [phone] [place] [address] (Wo rk) Social History Tobacco Use Types Packs/Day Years Used Date Smoking Tobacco: Never Smokeless Tobacco: Never Alcohol Use Standard Drinks/Week Comments No 0 (1 standard drink = 0.6 oz pure alcoho l) Sex Assigned at Date Recorded Female 08/17/2018 10:39 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 FOOT EXAM Q1 YEAR( NO INBASKET) 01/19/1956 ??? EYE EXAM Q1 YEAR( NO INBASKET) 01/19/1956 ??? LIPID MONITORING Q1 YEAR( NO INBASKET) 01/19/1956 ? ? PNEUMOVAX 1X HI RISK PATIENT < 65 (NO IB MSG) 1957 ??? ADVANCE DIRECTIVE PLANNING Q5 YRS (NO INBASKET) 1973 ??? MAMMO SCREEN Q2 YR (SYSTEM ASSIGNED) 1995 ??? COLON CANCER SCREEN (SYSTEM ASSIGNED) 2005 ??? A1C Q6 MO( NO INBASKET) 12/30/2015 Mammo was ordered Colonoscopy; patient said she has done colonoscopy not remember when or where. Maye Mata LPN documented in this encounter Plan of Treatment Upcoming Encounters Date Type Specialty Care Team Description 05/19/2022 Office Visit [facility] M [facility] [address] [facility] [place] [place] [address] (Wo rk) 08/02/2022 Office Visit Neurology Yair Campos MD [address] [facility] [place] [address] (Wo rk) documented as of this encounter Visit Diagnoses Not on filedocumented in this encounter Care Teams Painter Apprentice Relationship Specialty Start Date End Date Aleks Lopez MD PCP - General Family Practice 10/18/14 11/01/16 Tali Vilchis MD MD INTERNAL MEDICINE - 04/10/15 09/17/19 [address] [facility] ENDOCRINOLOGY, DIABETES [address] METABOLISM [place], [place] [phone] Anat Fuller MD Internal Medicine 04/10/1509/16 MD Renee [address] [facility] [address] [place], [place] [id number] Janny Hutton, Physician Core Microarchitect Physician Core Microarchitect 06/1609/17/19 CARLA [address] [facility] [address] [place] [address] documented as of this encounter
--- OUTSIDE RECORDS SUMMARY | 2022-05-09 11:06 | XMS_ITS | Encounter Summary ---
:1955 Author Organization [place] Address [address] [facility] [place] [address] Care Team Providers Name Role Phone Aleks Lopez MD Primary Care Provider Tali Vilchis MD Unavailable Anat Fuller MD Unavailable [phone] Janny Hutton PA-C Unavailable [phone] Reason for Visit Reason Onset Date Comments Pre Visit Planning - Done 05/19/2016 appt 05/24/2016 Encounter Details Date Type Department Care Team Description 05/19/2016 PRE VISIT [facility] Anat Lima Pre Visit Planning - Hepatology Clinic MD Renee Done (appt 05/24/2016) [address] [place] [id number] [phone] (Wo rk) Social History Tobacco Use Types Packs/Day Years Used Date Smoking Tobacco: Never Smokeless Tobacco: Never Alcohol Use Standard Drinks/Week Comments No 0 (1 standard drink = 0.6 oz pure alcoho l) Sex Assigned at Date Recorded Female 08/17/2018 10:39 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 Yes BART SHABAZZ RARE/ENDANGERED SPECIES SPECIALIST documented in this encounter Plan of Treatment Upcoming Encounters Date Type Specialty Care Team Description 05/19/2022 Office Visit ENT Dima Hidalgo M D [address] [facility] Saroj [place], [place] [address] (Wo rk) 08/02/2022 Office Visit Neurology Yair Campos MD [address] [facility] [address] [place], [place] [address] (Wo rk) documented as of this encounter Visit Diagnoses Not on filedocumented in this encounter Care Teams Microbiology Soil Scientist Relationship Specialty Start Date End Date Aleks Lopez MD PCP - General Family Practice 10/18/14 11/01/16 Tali Vilchis MD MD INTERNAL MEDICINE - 04/10/15 09/17/[address] [place] [address] ENDOCRINOLOGY, DIABETES 101 & METABOLISM [place], [place] [address] Anat Fuller MD Internal Medicine 04/10/1509/16 MD Renee [address] [facility] [address] [place], [place] [address] Janny Hutton, Physician Library Customer Service Clerk Physician Library Customer Service Clerk 06/1609/17/[address] [place] [address] 803 [place], [place] [phone] documented as of this encounter
--- OUTSIDE RECORDS SUMMARY | 2022-05-09 11:06 | XMS_ITS | Encounter Summary ---
:1955 Author Organization [place] Address [address] [facility] [place] [address] Care Team Providers Name Role Phone Aleks Lopez MD Primary Care Provider Tali Vilchis MD Unavailable Anta Fuller MD Unavailable [phone] Janny Hutton PA-C Unavailable [phone] Reason for Visit Reason Comments Diabetes Education Encounter Details Date Type Department Care Team Description 08/09/2016 Office Visit [facility] Diabetes Sayra Guallpa, DM type 2 (diabetes [address] [facility] RN mellitus, type 2); BP 3rd Floor [facility] Goal <140/90 (Primary [place], [place] [address] [facility] SE Dx) [phone] [place], [place] [phone] (Wo rk) Social History Tobacco Use Types Packs/Day Years Used Date Smoking Tobacco: Never Smokeless Tobacco: Never Alcohol Use Standard Drinks/Week Comments No 0 (1 standard drink = 0.6 oz pure alcoho l) Sex Assigned at Date Recorded Female 08/17/2018 10:39 PM AUTOMATIC HEAD SAWYER documented as of this encounter Patient Instructions Patient InstructionsMoSayra kelly RN - 08/09/2016 11:42 AM CST Diabetes Instructions: Your activity goals for this visit: Start a routine of physical activity daily. Goal is 30 minutes a week of walking per day. * Adilene Louis: Walk your blood sugars down. Try the library for other exercise DVDs. Yoga, Han Chi, calisthenics. You are also going to work on some strengthening. Resistance bands are a good way to start. Keep food records for 4-5 days before your appointment with Danitza Lobo on Aug 29. Try to be as detailed as possible and include all meals, snacks, and exercise, as well as how you are feeling during the time you are keeping the records. Call me if you have any questions: SAMMY Thao, RN, CDE Diabetes Structural Analyst [facility] Room 3-[address] [place] [address] Email: [email or web address] MATIC HEAD SAWYER documented in this encounter Progress Notes Sayra Guallpa RN - 08/12/2016 9:13 AM CST DIABETES EDUCATION NOTE: Becki Ridley presents today for education related to Type 2 diabetes Patient is being treated with: oral agents She is accompanied by self PATIENT CONCERNS RELATED TO DIABETES SELF MANAGEMENT: Has had Type 2 diabetes for unknown period of time, although she thinks she was diagnosed about 5-6 years ago. She states that she feels she has been in denial about her condition and is concerned about complications, but she is dealing with a number of different health issues and expresses feeling overwhelmed with management of diabetes and lifestyle changes. She cites some cognitive issues as complicating her ability to cope. ASSESSMENT: Current Diabetes Management per Patient: Taking diabetes medications: Metformin 500 mg BID, although she admits to missing many doses. Monitoring Patient glucose self monitoring as follows: one time daily. BG meter: Accu-Chek Arelis meter BG results: fasting glucose- [id number] BG values are: Not in goal Patient's most recent A1C of 10.6 on 08/09/2016 is not meeting goal of <7.0 Exercise: no regular exercise program Hypoglycemia: None. Not at risk Stress Management: She feels some stress associated with dealing with multiple health issues, as well as some loss of independence that has come with the loss of some of her cognitive function, including memory. EDUCATION and INSTRUCTION PROVIDED AT THIS VISIT: Discussed the pathophysiology of type 2 diabetes, as well as the pathophysiology of atherosclerosis to aid her understanding of the complications of diabetes, and preventative measures. She states thatshe has been struggling with depression, and the logistics of getting more physical activity. She lives with her daughter and son-in-law outside of [place], [place]. She has access to an gym, but states that driving is difficult. She feels fearful about walking around outside in winter weather. We focused on trying to find some ways for her to get more activity in and around the house. Given some ideas for exercise DVD's, and encouraged to get some exercise bands to work on strengthening at home. Spoke about why she is having some trouble remembering her medications. Her Metformin was just in creased by Ms. Tracey at their visit today and dose increased To 1500 mg daily. She verbalized understanding about how to increase the dose over the next several weeks to the appropriate dose. Becki has a follow up appointment with our dietititan in a few weeks. Encouraged to keep food records and bring them with her when she comes for that visit. She was comfortable with establishing one goal today: Try to work more physical activity into her everyday routine. Patient-stated goal written and given to Becki Ridley. Verbalized and demonstrated understanding of instructions. PLAN: See patient instructions AVS printed and given to patient FOLLOW-UP: She has a follow up appointment with VALERIANO Razo on . I think she would do better with diabetes education if visits with dietitian and nurse are staggered rather than scheduled on , as she needs time to accept and process new information. Time spent with patient at today's visit was 60 minutes. Any diabetes medication dose changes were made via the CDE Protocol and Collaborative Practice Agreement with Max [facility] Max. A copy of this encounter was provided to patient's referring provider. MATIC HEAD SAWYER documented in this encounter Plan of Treatment Upcoming Encounters Date Type Specialty Care Team Description 05/19/2022 Office Visit ENT Dima Hidalgo M D [address] [facility] [address] (Wo rk) 08/02/2022 Office Visit Neurology Yair Campos MD [address] [facility] [place] [address] (Wo rk) documented as of this encounter Visit Diagnoses Diagnosis DM type 2 (diabetes mellitus, type 2); B P Goal <140/90 - Primary Type II or unspecified type diabetes almita litus without mention of complication, not stated as uncontrolled documented in this encounter Care Teams Retrieval Specialist Relationship Specialty Start Date End Date Aleks Lopez MD PCP - General Family Practice 10/18/14 11/01/16 Tali Vilchis MD MD INTERNAL MEDICINE - 04/10/15 09/17/19 [address] [facility] ENDOCRINOLOGY, DIABETES 101 & METABOLISM [place], [place] [phone] Anat Fuller MD Internal Medicine 04/10/1509/16 MD Renee [address] [facility] [address] [place], [place] [phone] Janny Hutton Physician Wood Die Maker Physician Wood Die Maker 06/1609/17/19 L[facility] [address] [facility] [address]03 [place], [place] [phone] documented as of this encounter
--- OUTSIDE RECORDS SUMMARY | 2022-05-09 11:06 | XMS_ITS | Encounter Summary ---
:1955 Author Organization [place] Address [address] [facility] [place] [address] Care Team Providers Name Role Phone Aleks Lopez MD Primary Care Provider Tali Vilchis MD Unavailable Anat Fuller MD Unavailable [phone] Janny Hutton PA-C Unavailable [phone] Encounter Details Date Type Department Care Team Description 08/02/2016 Telephone [facility] Endocrinolo Janny Akins, 9 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 Tali Vilchis MD RITY PROJECT MANAGER Telephone Encounter - Janny Akins RN - 08/02/2016 5:55 PM SECURITY PROJECT MANAGER Becki was last seen in Endocrine 06/2015 For hypothyroid and Diabetes. She was to f/u with lab work in two weeks ( not completed) and be seen by Janny Hutton ( cancelled) and Diabetes Education ( cancelled) . Refill request for levothyroxine 50 mcg came today so I called her. Her BS are 253-327 and she did not ever have TFTS checked. Currently on Metformin 1000 mg Daily For diabetes. I have her scheduled next week 08/09/16 with Alexy for Diaberes and a call to Diabetes Ed to see if they can see her same day. She is scheduled for f/u 09/28/[address] Vilchis. She has one week of levothyroxine left .I will route this to Dr Vilchis Tt see if she wants her to have labs done when here Monday For dose adjustment. Becki has extremely poor memory . She states she Probably cancelled her other appointment due to weather but then forgot to reschedule. RITY PROJECT MANAGER documented in this encounter Plan of Treatment Upcoming Encounters Date Type Specialty Care Team Description 05/19/2022 Office Visit ENT Dima Hidalgo M D [address] [facility] Saroj [place], [place] [address] (Wo odette) 08/02/2022 Office Visit Neurology Yair Campos MD [address] [place] [address] [phone] (Sarah pino) documented as of this encounter Visit Diagnoses Not on filedocumented in this encounter Care Teams Transformer Stock Clerk Relationship Specialty Start Date End Date Aleks Lopez MD PCP - General Family Practice 10/18/14 11/01/16 Tali Vilchis MD MD INTERNAL MEDICINE - 04/10/15 09/17/[address] [place] [address] ENDOCRINOLOGY, DIABETES 101 & [place] [address] Anat Fuller MD Internal Medicine 04/10/1509/16 MD Renee [address] [facility] [address] [place] [address] Janny Hutton, Physician Packaging Supervisor Physician Packaging Supervisor 06/1609/17/19 CARLA 420 [facility] [address]03 [place] [address] documented as of this encounter
--- OUTSIDE RECORDS SUMMARY | 2022-05-09 11:06 | XMS_ITS | Encounter Summary ---
:1955 Author Organization [place] Address [address] [facility] [place] [address] Care Team Providers Name Role Phone Aleks Lopez MD Primary Care Provider Tali Vilchis MD Unavailable Anat Fuller MD Unavailable [phone] Janny Hutton PA-C Unavailable [phone] Reason for Visit Reason Onset Date Comments Refill Request 08/02/2016 levothyroxine Encounter Details Date Type Department Care Team Description 08/02/2016 Refill M [facility] Endocrinolo gy Tali Vilchis, Refill Request 909 [facility] (levothyroxine) 3rd Floor [address] [place], [place] [address] [place], [place] [phone] (Wo rk) Social History Tobacco Use Types Packs/Day Years Used Date Smoking Tobacco: Never Smokeless Tobacco: Never Alcohol Use Standard Drinks/Week Comments No 0 (1 standard drink = 0.6 oz pure alcoho l) Sex Assigned at Date Recorded Female 08/17/2018 10:39 PM 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 PING MACHINE OPERATOR documented in this encounter Plan of Treatment Upcoming Encounters Date Type Specialty Care Team Description 05/19/2022 Office Visit ENT Dima Hidalgo M D [address] [facility] Saroj [place], [place] [address] (Wo rk) 08/02/2022 Office Visit Neurology Yair Campos MD [address] [facility] [address] [place], [place] [address] (Wo rk) documented as of this encounter Visit Diagnoses Diagnosis Subclinical hypothyroidism - Primary Other specified acquired hypothyroidism documented in this encounter Care Teams Case Briefer Relationship Specialty Start Date End Date Aleks Lopez MD PCP - General Family Practice 10/18/14 11/01/16 Tali Vilchis MD MD INTERNAL MEDICINE - 04/10/15 09/17/19 [address] [facility] ENDOCRINOLOGY, DIABETES 101 & METABOLISM [place], [place] [address] Anat Fuller MD Internal Medicine 04/10/1509/16 MD Renee [address] [facility] [address] [place], [place] [address] Janny Hutton, Physician Steam Engineer Physician Steam Engineer 06/1609/17/19 PA-C [address] [facility] [address]03 [place], [place] [phone] documented as of this encounter
--- OUTSIDE RECORDS SUMMARY | 2022-05-09 11:06 | XMS_ITS | Encounter Summary ---
:1955 Author Organization [place] Address [address] [facility] [place] [address] Care Team Providers Name Role Phone Aleks Lopez MD Primary Care Provider Tali Vilchis MD Unavailable Anat Fuller MD Unavailable [phone] Janny Hutton PA-C Unavailable [phone] Reason for Visit Reason Onset Date Comments Refill Request 07/01/2015 Encounter Details Date Type Department Care Team Description 07/01/2015 Refill Diabetes and Endocri ne Bria Chambers, RN Refill Request 6th Floor, Clinic [address] [place] [phone] Social History Tobacco Use Types Packs/Day Years Used Date Smoking Tobacco: Never Smokeless Tobacco: Never Alcohol Use Standard Drinks/Week Comments No 0 (1 standard drink = 0.6 oz pure alcoho l) Sex Assigned at Date Recorded Female 08/17/2018 10:39 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 documented as of this encounter Plan of Treatment Upcoming Encounters Date Type Specialty Care Team Description 05/19/2022 Office Visit ENT Dima Hidalgo M D [address] [facility] [place] [address] (Wo rk) 08/02/2022 Office Visit Neurology Yair Campos MD [address] [place] [phone] (Wo rk) documented as of this encounter Visit Diagnoses Diagnosis Diabetes mellitus, type 2 (H) - Primary Type II or unspecified type diabetes almita litus without mention of complication, not stated as uncontrolled documented in this encounter Care Teams Personal Caregiver Relationship Specialty Start Date End Date Aleks Lopez MD PCP - General Family Practice 10/18/14 11/01/16 Tali Vilchis MD MD INTERNAL MEDICINE - 04/10/15 09/17/19 420 [facility] ENDOCRINOLOGY, DIABETES 101 & METABOLISM [place], [place] [address] Anat Fuller MD Internal Medicine 04/10/1509/16 MD Renee 516 [facility] [address] [place], [place] [address] Janny Hutton Physician Waistline Joiner Overlock Physician Waistline Joiner Overlock 06/1609/17/19 PA-C 420 [facility] 803 [place], [place] [address] documented as of this encounter
--- OUTSIDE RECORDS SUMMARY | 2022-05-09 11:06 | XMS_ITS | Encounter Summary ---
:1955 Author Organization [place] Address [address] [facility] [place] [address] Care Team Providers Name Role Phone Aleks Lopez MD Primary Care Provider Tali Vilchis MD Unavailable Anat Fuller MD Unavailable [phone] Janny Hutton PA-C Unavailable [phone] Reason for Visit Reason Comments Other Encounter Details Date Type Department Care Team Description 08/03/2016 Telephone [facility] Janny Akins, 9 [facility] RN 3rd Floor [place], [place] [phone] Social History Tobacco Use Types Packs/Day Years Used Date Smoking Tobacco: Never Smokeless Tobacco: Never Alcohol Use Standard Drinks/Week Comments No 0 (1 standard drink = 0.6 oz pure alcoho l) Sex Assigned at Date Recorded Female 08/17/2018 10:39 PM ON AWAKE COUNSELOR documented as of this encounter Miscellaneous Notes Telephone Encounter - Janny Akins RN - 08/03/2016 12:06 PM ON AWAKE COUNSELOR Becki will see Ramin (diabetes Education) 08/09/16 . SHe also will have labs done for Dr Vilchis after [facility] appointment with Alexy in case she needed to order labs as well. AWAKE COUNSELOR Telephone Encounter - Janny Akins RN - 08/03/2016 12:06 PM ON AWAKE COUNSELOR ----- Message from Missy Vasquez Link sent at 08/03/2016 10:31 AM ON AWAKE COUNSELOR ----- Regarding: RE: 08/09/16? Hi all, I called and moved the 10:30 to 12:30 and put Becki in at 10:30 after her appt with Alia. Thanks. ----- Message ----- From: Sayra Guallpa RN Sent: 08/03/2016 10:21 AM To: [id number] Subject: FW: 08/09/16? Could you please look at this request? I'm happy to see the patient that day when she is here, but it looks as if my schedule is full in the morning. Unless you can re-arrange patients, it looks like she would have to wait around until later in the afternoon. Feel free to use any of the slots set aside for medical fee clerk starts. Thanks Radames. ----- Message ----- From: Janny Akins RN Sent: 08/02/2016 5:50 PM To: Sayra Guallpa RN Subject: 08/09/16? She will be here Monday08/09/16 9 AM to see Alexy She was last seen by Mame 06/2015 and Never made it back. She was to See Diabetes Ed and Hutton. BS [phone] Only on metformin 1000 mg daily . Has cognitive Issues so forgets things. She thinks she cancelled her other appointment due to weather. Any chance you could see her Monday when here? She is In denial about the diabetes and will tell you that. .I didn't understand what your schedule is That day. . AWAKE COUNSELOR documented in this encounter Plan of Treatment Upcoming Encounters Date Type Specialty Care Team Description 05/19/2022 Office Visit ENT Dima Hidalgo M D [address] [address] (Wo rk) 08/02/2022 Office Visit Neurology Yair Campos MD [address] [facility] [address] [place], [place] [address] (Wo rk) documented as of this encounter Visit Diagnoses Not on filedocumented in this encounter Care Teams Fire Fighter [employer] Relationship Specialty Start Date End Date Aleks Lopez MD PCP - General Family Practice 10/18/14 11/01/16 Tali Vilchis MD MD INTERNAL MEDICINE - 04/10/15 09/17/19 420 [facility] ENDOCRINOLOGY, DIABETES 101 & METABOLISM [place], [place] [phone] Aant Fuller MD Internal Medicine 04/10/1509/16 MD Renee [address] [facility] [address] [place] [address] Janny Hutton, Physician Proposal Rep Physician Proposal Rep 06/1609/17/19 PA-C 420 [facility] 803 [place] [address] documented as of this encounter
--- OUTSIDE RECORDS SUMMARY | 2022-05-09 11:06 | XMS_ITS | Encounter Summary ---
:1955 Author Organization [place] Address [facility] [place] [address] Care Team Providers Name Role Phone Aleks Lopez MD Primary Care Provider Reason for Visit Reason Comments Vaginal Problem yeast infection not clearing Encounter Details Date Type Department Care Team Description 04/01/2015 Office Visit [facility] Odessa Antonio Vaginal itching Lola Raymond MD (Primary Dx) [address] [place] [address] [facility] [phone] RUPESH DAVILA [id number] Social History Tobacco Use Types Packs/Day Years Used Date Smoking Tobacco: Never Smokeless Tobacco: Never Alcohol Use Standard Drinks/Week Comments No 0 (1 standard drink = 0.6 oz pure alcoho l) Sex Assigned at Date Recorded Female 08/17/2018 10:39 PM CARD DOFFER documented as of this encounter Last Filed Vital Signs Vital Sign Reading Time Taken Comments Blood Pressure 104/70 04/01/2015 8:23 AM CDT Pulse 80 04/01/2015 8:23 AM CDT Temperature 36.6 ??C (97.8 ??F) 04/01/2015 8:23 AM CDT Respiratory Rate - - Oxygen Saturation - - Inhaled Oxygen Concentration - - Weight 92.8 kg (204 lb 9.6 oz) 04/01/2015 8:23 AM CDT Height 158.8 cm (5' 2.5) 04/01/2015 8:23 AM CDT Body Mass Index 36.83 04/01/2015 8:23 AM CDT documented in this encounter Patient Instructions Patient InstructionsOdessa Antonio MD - 04/01/2015 8:53 AM CDT Take the diflucan every 3 days. If your symptoms continue, consider seeing a fluid jet cutter operator. We do have one here, Dr. Kimble, who is great. In addition, you can use the topical vaginal cream. Consider making an appointment. documented in this encounter Progress Notes Odessa Antonio MD - 04/01/2015 8:26 AM CDT SUBJECTIVE: Becki Ridley is a 60 year old female who presents to clinic today for the following health issues: Vaginal Symptoms ?? Onset: 2 weeks ?? Description: Vaginal Discharge: white Itching (Pruritis): YES Burning sensation: YES Odor: no ?? Accompanying Signs & Symptoms: Pain with Urination: no Abdominal Pain: no Fever: no ?? History: Sexually active: no New Partner: no Possibility of : No ?? Precipitating factors: Recent Antibiotic Use: YES- December and January for abscess tooth ?? Alleviating factors: none ?? Therapies Tried and outcome: monostat did not help Sugars have been out of control. Had been out of test strips for a while. Occasionally in 200 range. Sometimes forgets to take her diabetes medication or doesn't take it at the right time. Problem list and histories reviewed & adjusted, as indicated. Additional history: as documented Problem list, Medication list, Allergies, and Medical/Social/Surgical histories reviewed in [facility] andupdated as appropriate. ROS: C: NEGATIVE for fever, chills, change in weight GI: NEGATIVE for nausea, abdominal pain, heartburn, or change in bowel habits : negative for, dysuria, frequency and hematuria OBJECTIVE: BP 104/70 mmHg Pulse 80 Temp(Src) 97.8 ??F (36.6 ??C) (Oral) Ht 5' 2.5 (1.588 m) Wt 204 lb 9.6 oz (92.806 kg) BMI 36.80 kg/m2 Body mass index is 36.8 kg/(m^2). GENERAL: healthy, alert and no distress (female): redness of external genitalia. Minimal discharge noted. Some fissuring of vaginal mucosa noted. Diagnostic Test Results: Results for orders placed or performed in visit on 04/01/15 Wet prep Result Value Ref Range Specimen Description Vagina Wet Prep No Trichomonas seen No yeast seen No clue cells seen Micro Report Status FINAL 04/01/2015 ASSESSMENT/PLAN: 1. Vaginal itching Wet prep negative, but symptoms and exam consistent with yeast vaginitis. - Wet prep - fluconazole (DIFLUCAN) 150 MG tablet; Take 1 tablet (150 mg) by mouth every 3 days Dispense: 4 tablet; Refill: 0 - clotrimazole (LOTRIMIN) 1 % vaginal cream; Place 1 Applicatorful vaginally daily Dispense: 45 g; Refill: 0 Patient Instructions Take the diflucan every 3 days. If your symptoms continue, consider seeing a fluid jet cutter operator. We do have one here, Dr. Kimble, who is great. In addition, you can use the topical vaginal cream. Consider making an appointment. Odessa Antonio MD [facility] documented in this encounter Nursing Notes Maye Mata LPN - 04/01/2015 8:26 AM CDT Chief Complaint Patient presents with ??? Vaginal Problem yeast infection not clearing Initial BP 104/70 mmHg Pulse 80 Temp(Src) 97.8 ??F (36.6 ??C) (Oral) Ht 5' 2.5 (1.588 m) Wt204 lb 9.6 oz (92.806 kg) BMI 36.80 kg/m2 Estimated body mass index is 36.8 kg/(m^2) as calculatedfrom the following: Height as of this encounter: 5' 2.5 (1.588 m). Weight as of this encounter: 204 lb 9.6 oz (92.806 kg). BP completed using cuff size: large Maye Mata LPN documented in this encounter Plan of Treatment Upcoming Encounters Date Type Specialty Care Team Description 05/19/2022 Office Visit ENT Dima Hidalgo M D [address] [facility] [place], [place] [address] (Wo rk) 08/02/2022 Office Visit Neurology Yair Campos MD [address] [place] [address] (Wo rk) documented as of this encounter Procedures Procedure Name Priority Date/Time Associated Diagnosis Comme nts WET PREPARATION Routine 04/01/2015 8:31 AM Vaginal itching Res ults for this CDT procedure are i n the results section. documented in this encounter Results Wet prep (04/01/2015 8:31 AM CDT) [facility] gist Method Time Signature Specimen Vagina [facility] Description CLINICS [facility] Wet Prep No Trichomonas seen [facility] No yeast seen CLINICS No clue cells seen [facility] Micro Report [facility] Status 04/01/2015 CLINICS [facility] Specimen Anatomical Collection Method Collection Time Receive d Time (Source) Location / / Volume Laterality 04/01/2015 8:31 AM 5 8:32 CDT AM CDT Odessa Antonio MD LAB - MICRO GENERAL ORDERABL ES Performing Organization Address City/State/ZIP Code Phon e Number [facility] [address] [place] [address] documented in this encounter Visit Diagnoses Diagnosis Vaginal itching - Primary Pruritus of genital organs documented in this encounter Care Teams Music Supervisor Relationship Specialty Start Date End Date Aleks Lopez MD PCP - General Family Practice 10/18/14 11/01/16 documented as of this encounter
--- OUTSIDE RECORDS SUMMARY | 2022-05-09 11:06 | XMS_ITS | Encounter Summary ---
:1955 Author Organization [place] Address [address] [facility] [place] [address] Care Team Providers Name Role Phone Aleks Lopez MD Primary Care Provider Tali Vilcihs MD Unavailable Anat Fuller MD Unavailable [phone] Janny Hutton PA-C Unavailable [phone] Encounter Details Date Type Department Care Team Description 05/09/2016 [facility] Mariza Whaley, TRUCK BODY BUILDER APPRENTICE Abnorma l results of Hepatology Clinic liver func tion studies [place] (Primary Dx) [address] [place] [address] Social History Tobacco Use Types Packs/Day Years Used Date Smoking Tobacco: Never Smokeless Tobacco: Never Alcohol Use Standard Drinks/Week Comments No 0 (1 standard drink = 0.6 oz pure alcoho l) Sex Assigned at Date Recorded Female 08/17/2018 10:39 PM ESTATE PLANNING COUNSELOR documented as of this encounter Plan of Treatment Upcoming Encounters Date Type Specialty Care Team Description 05/19/2022 Office Visit [facility] M D [address] [facility] [place] [place] [address] (Wo rk) 08/02/2022 Office Visit Neurology Yair Campos MD [address] [place] [address] [place] [address] (Wo rk) documented as of this encounter Results INR (07/01/2016 10:47 AM ESTATE PLANNING COUNSELOR) P athologist Signature INR 0.99 0.86 - 1.14 [facility] Specimen Anatomical Collection Method Collection Time Receive d Time (Source) Location / / Volume Laterality Blood specimen 07/01/2016 10:47 6 (specimen) AM ESTATE PLANNING COUNSELOR 10:48 AM ESTATE PLANNING COUNSELOR Anat Fuller MD LAB - BLOOD ORDERABLES Performing Organization Address City/[facility] [address]/[facility] Code Phon e Number [address] [address] [facility] (ABNORMAL) CBC with platelets (07/01/2016 10:47 AM ESTATE PLANNING COUNSELOR) Patholo gist Method Time Signature WBC 7.3 4.0 - 11.0 [facility] 10e9/L [facility] RBC Count 5.55 (H) 3.8 - 5.2 [facility] 10e12/L [facility] Hemoglobin 14.9 11.7 - [facility] 15.7 g/dL [facility] Hematocrit 44.1 35.0 - [facility] 47.0 % [facility] MCV 80 78 - 100 [facility] fl [facility] MCH 26.8 26.5 - [facility] 33.0 pg [facility] MCHC 33.8 31.5 - [facility] 36.5 g/dL [facility] RDW 12.8 10.0 - [facility] 15.0 % [facility] Platelet Count 244 150 - 450 [facility] 10e9/L [facility] Specimen Anatomical Collection Method Collection Time Receive d Time (Source) Location / / Volume Laterality Blood specimen 07/01/2016 10:47 6 (specimen) AM ESTATE PLANNING COUNSELOR 10:48 AM ESTATE PLANNING COUNSELOR Anat Fuller MD LAB - BLOOD ORDERABLES Performing Organization Address City/[facility] [address]/ZIP Code Phon e Number [facility] [address] [place] [address] [facility] (ABNORMAL) Basic metabolic panel (07/01/2016 10:47 AM ESTATE PLANNING COUNSELOR) Patholo gist Method Time Signature Sodium 136 133 - 144 [facility] mmol/L [facility] Potassium 4.1 3.4 - 5.3 [facility] mmol/L [facility] Chloride 103 94 - 109 [facility] mmol/L [facility] Carbon Dioxide 24 20 - 32 [facility] mmol/L [facility] Anion Gap 10 3 - 14 [facility] mmol/L [facility] Glucose 341 (H) 70 - 99 [facility] mg/dL [facility] Urea Nitrogen 10 7 - 30 [facility] mg/dL [facility] Creatinine 0.50 (L) 0.52 - [facility] 1.04 [place] mg/dL [facility] GFR Estimate >90 >60 [facility] Non GFR Calc mL/min/1. [place] 7m2 [facility] GFR Estimate >90 >60 [facility] If Black GFR Calc mL/min/1. [place] 7m2 [facility] Calcium 9.0 8.5 - [facility] 10.1 [place] mg/dL [facility] Specimen Anatomical Collection Method Collection Time Receive d Time (Source) Location / / Volume Laterality Blood specimen 07/01/2016 10:47 6 (specimen) AM ESTATE PLANNING COUNSELOR 10:48 AM ESTATE PLANNING COUNSELOR Anat Fuller MD LAB - BLOOD ORDERABLES Performing Organization Address City/State/ZIP Code Phon e Number [address] [address] [facility] (ABNORMAL) Hepatic panel (07/01/2016 10:47 AM ESTATE PLANNING COUNSELOR) Analysis Performed At Patho logist Time Signature Bilirubin Direct 0.2 0.0 - 0.2 [facility] mg/dL [facility] Bilirubin Total 0.8 0.2 - 1.3 [facility] mg/dL [facility] Albumin 3.6 3.4 - 5.0 [facility] g/dL [facility] Protein Total 7.3 6.8 - 8.8 [facility] g/dL [facility] Alkaline 86 40 - 150 [facility] Phosphatase U/L [facility] ALT 96 (H) 0 - 50 U/L [facility] AST 52 (H) 0 - 45 U/L [facility] Specimen Anatomical Collection Method Collection Time Receive d Time (Source) Location / / Volume Laterality Blood specimen 07/01/2016 10:47 6 (specimen) AM ESTATE PLANNING COUNSELOR 10:48 AM ESTATE PLANNING COUNSELOR Anat Fuller MD LAB - BLOOD ORDERABLES Performing Organization Address City/State/ZIP Code Phon e Number [address] [address] [facility] documented in this encounter Visit Diagnoses Diagnosis Abnormal results of liver function studi es - Primary Nonspecific abnormal results of liver fu nction study documented in this encounter Care Teams Woods Overseer Relationship Specialty Start Date End Date Aleks Lopez MD PCP - General Family Practice 10/18/14 11/01/16 Tali Vilchis MD MD INTERNAL MEDICINE - 04/10/15 09/17/19 [address] [facility] ENDOCRINOLOGY, DIABETES [address] & [place] [address] Anat Fuller MD Internal Medicine 04/10/1509/[address] [facility] [address] [place], [place] [address] Janny Hutton Physician Buckle Frame Shaper Physician Buckle Frame Shaper 06/1609/17/19 PA-C [address] [facility] [address] [place], [place] [id number] documented as of this encounter
--- OUTSIDE RECORDS SUMMARY | 2022-05-09 11:06 | XMS_ITS | Encounter Summary ---
:1955 Author Organization [place] Address [address] [facility] [place] [address] Care Team Providers Name Role Phone Aleks Lopez MD Primary Care Provider Tali Vilchis MD Unavailable Anat Fuller MD Unavailable [phone] Reason for Visit Reason Comments Trauma R calf pain felt a pop, on set today, 02/23 Urgent Care Encounter Details Date Type Department Care Team Description 06/05/2015 Office Visit [facility] Eag Brock Foote MD Right calf pain [address] [address] [facility] (Primary Dx) Lola [place] [address] [place] [address] [place] [address] Social History Tobacco Use Types Packs/Day Years Used Date Smoking Tobacco: Never Smokeless Tobacco: Never Tobacco Cessation: Counseling Given: No Alcohol Use Standard Drinks/Week Comments No 0 (1 standard drink = 0.6 oz pure alcoho l) Sex Assigned at Date Recorded Female 08/17/2018 10:39 PM MEDICAL CERTIFICATION SPECIALIST documented as of this encounter Last Filed Vital Signs Vital Sign Reading Time Taken Comments Blood Pressure 112/68 06/05/2015 6:01 PM MEDICAL CERTIFICATION SPECIALIST Pulse 75 06/05/2015 6:01 PM MEDICAL CERTIFICATION SPECIALIST Temperature 36.8 ??C (98.3 ??F) 06/05/2015 6:01 PM MEDICAL CERTIFICATION SPECIALIST Respiratory Rate - - Oxygen Saturation 96% 06/05/2015 6:01 PM MEDICAL CERTIFICATION SPECIALIST Inhaled Oxygen Concentration - - Weight 92.5 kg (204 lb) 06/05/2015 6:01 PM MEDICAL CERTIFICATION SPECIALIST Height - - Body Mass Index 36.72 05/26/2015 9:24 AM MEDICAL CERTIFICATION SPECIALIST documented in this encounter Patient Instructions Patient InstructionsBrock Man MD - 06/05/2015 6:39 PM CST Use crutches for now. Tylenol pain Ice Switch to heat after 48 hours. Follow up with your primary care provider if not better in 10-14 days. CAL CERTIFICATION SPECIALIST documented in this encounter Progress Notes Brock Man MD - 06/05/2015 6:24 PM CST SUBJECTIVE: Chief Complaint Patient presents with ??? Trauma R calf pain felt a pop, onset today, 02/23 ??? Urgent Care Becki Ridley is a 60 year old female presents with a chief complaint of 8 out of 10 right calf pain (at the entire). Patient felt a pop at the right calf today while putting a jacket on her grandson. Patient kept leaning forward and felt a pop at the right calf . Patient has noticed pain with walking. The injury occurred today at 8 a.m. The injury happened while at home. Pain exacerbated by walking , with any movement. Relieved by keeping the right leg still. . She treated it initially with ice. . This is the first time this type of injury has occurred to this patient. Past Medical History Diagnosis Date ??? Hypertension ??? Asthma ??? Arthritis ??? Restrictive lung disease ??? Angioedema ??? Sleep apnea ??? Restless legs syndrome ??? Depression ??? VILLAREAL (nonalcoholic steatohepatitis) ??? Lower extremity edema ??? Diabetes mellitus (HCC) sometimes I do ??? Blood transfusion ??? Thyroid disease Current Outpatient Prescriptions Medication Sig Dispense Refill ??? canaliflozin (INVOKANA) tablet Take 300 mg by mouth every morning (before breakfast) ??? ibuprofen (ADVIL,MOTRIN) 200 MG tablet Take 3 tablets (600 mg) by mouth every 8 hours as needed for mild pain 20 tablet 0 ??? busPIRone (BUSPAR) 5 MG tablet Take 5 mg by mouth as needed. ??? omeprazole (PRILOSEC) 20 MG capsule Take 1 capsule by mouth daily. 90 capsule 3 ??? cetirizine (ZYRTEC) 10 MG tablet Take [...] tablet by mouth 2 times daily. ??? MetFORmin (GLUCOPHAGE) 500 MG tablet Take 500 mg by mouth 2 times daily (with meals). ??? Potassium Gluconate 595 MG TABS Take 1 tablet by mouth 2 times daily. History Substance Use Topics ??? Smoking status: Never Smoker ??? Smokeless tobacco: Never Used ??? Alcohol Use: No ROS: Review of systems negative except as stated above. EXAM: BP 112/68 mmHg Pulse 75 Temp(Src) 98.3 ??F (36.8 ??C) (Oral) Wt 204 lb (92.534 kg) SpO2 96% Gen: healthy,alert, in severe pain. Extremity: the entire Right calf has pain with palpation. There are no hematomas. No edema. The Fuller Squeeze Test showed dorsiflexion at the right foot. . There is not compromise to the distal circulation. GAIT: Patient cannot bear much weight onto the right foot. GENERAL APPEARANCE: healthy, alert and no distress SKIN: no suspicious lesions or rashes X-RAY was not done. ASSESSMENT: Right calf muscle strain. Right Calf Pain PLAN: 1) Rest, Ice, Elevate 2) Heat 3) Rx: Tramadol (Patient has been on this medication without any previous adverse effects.) 4) Crutches were given to the patient 5) FU with the PCP if not better in 10-14 days. Brock Man MD CAL CERTIFICATION SPECIALIST documented in this encounter Nursing Notes Alicia Argueta - 06/05/2015 6:03 PM CST Chief Complaint Patient presents with ??? Trauma R calf pain felt a pop, onset today, 02/23 ??? Urgent Care Initial BP 112/68 mmHg Pulse 75 Temp(Src) 98.3 ??F (36.8 ??C) (Oral) Wt 204 lb (92.534 kg) SpO2 96% Estimated body mass index is 36.69 kg/(m^2) as calculated from the following: Height as of 05/26/15: 5' 2.5 (1.588 m). Weight as of this encounter: 204 lb (92.534 kg). BP completed using cuff size: large Alicia Argueta CMA ................................. June 05, 2015 6:03 PM CAL CERTIFICATION SPECIALIST documented in this encounter Plan of Treatment Upcoming Encounters Date Type Specialty Care Team Description 05/19/2022 Office Visit E[facility] M D [address] [facility] [place], [place] [address] (Wo rk) 08/02/2022 Office Visit Neurology Yair Campos MD [address] [place] [address] (Wo rk) documented as of this encounter Visit Diagnoses Diagnosis Right calf pain - Primary documented in this encounter Care Teams Senior Business Broker Relationship Specialty Start Date End Date Aleks Lopez MD PCP - General Family Practice 10/18/14 11/01/16 Tali Vilchis MD MD INTERNAL MEDICINE - 04/10/15 09/17/[address] [place] [address] ENDOCRINOLOGY, DIABETES & [place] [address] METABOLISM Anat Fuller MD Internal Medicine 04/10/1509/16 MD Renee [address] [place] [id number] documented as of this encounter
--- OUTSIDE RECORDS SUMMARY | 2022-05-09 11:06 | XMS_ITS | Encounter Summary ---
:1955 Author Organization [place] Address [address] [facility] [place] [address] Care Team Providers Name Role Phone Aleks Lopez MD Primary Care Provider Tali Vilchis MD Unavailable Anat Fuller MD Unavailable [phone] Janny Hutton PA-C Unavailable [phone] Reason for Referral Specialty Diagnoses / Procedures Referred By Contact Refer red To Contact Dewayne Zendejas DP [facility] [place], [place] [address] Referral ID Status Reason Start Date Expiration Date Visits Requ ested Visits Authorized BRAKE OPERATOR Reason for Visit Reason Comments Musculoskeletal Problem right 2nd pain, patient jam ed toe with continued pain, toes spreading, popping in toes w ith walking Encounter Details Date Type Department Care Team Description 07[facility]2015 [facility] Type 2 lashawn betes mellitus with complication (H) (Primary Dx); [facility], right; [address] [facility], left; [place], [place] Bunion, u nspecified laterality; [phone] Tinea pedis of both feet [phone] Social History Tobacco Use Types Packs/Day Years Used Date Smoking Tobacco: Never Smokeless Tobacco: Never Alcohol Use Standard Drinks/Week Comments No 0 (1 standard drink = 0.6 oz pure alcoho l) Sex Assigned at Date Recorded Female 08/17/2018 10:39 PM AIR BRAKE OPERATOR documented as of this encounter Last Filed Vital Signs Vital Sign Reading Time Taken Comments Blood Pressure 122/71 07/28/2015 3:28 PM AIR BRAKE OPERATOR Pulse 79 07/28/2015 3:28 PM AIR BRAKE OPERATOR Temperature - - Respiratory Rate - - Oxygen Saturation - - Inhaled Oxygen Concentration - - Weight 93.4 kg (205 lb 12.8 oz) 07/28/2015 3:28 PM AIR BRAKE OPERATOR Height - - Body Mass Index 37.04 06/30/2015 1:46 PM AIR BRAKE OPERATOR documented in this encounter Patient Instructions Patient InstructionsPema Cordova CNA - 07/28/2015 3:47 PM CST Thanks for coming today. [facility] [address] [place] [address] To schedule future appointments in Ortho Clinic, you may call [phone]. To schedule ordered imaging by your Provider: Call [facility] at [phone] Please call if any further questions or concerns [phone] and ask for the Orthopedic Department.Clinic hours 8 am to 5 pm. Return to clinic if symptoms worsen. BRAKE OPERATOR documented in this encounter Progress Notes Dewayne Zendejas DPM - 07/28/2015 3:25 PM CST Past Medical History Diagnosis Date ??? Hypertension ??? Asthma ??? Arthritis ??? Restrictive lung disease ??? Angioedema ??? Sleep apnea ??? Restless legs syndrome ??? Depression ??? VILLAREAL (nonalcoholic steatohepatitis) ??? Lower extremity edema ??? Diabetes mellitus (HCC) sometimes I do ??? Blood transfusion ??? Thyroid disease Patient Active Problem List Diagnosis ? ? DM type 2 (diabetes mellitus, type 2); BP Goal <140/90 ??? Hypothyroidism ??? Urticaria ??? Asthma Past Surgical History Procedure Laterality Date ??? Colonoscopy age 52 [place] results ??? Biopsy 2011 liver History Social History ??? Marital Status: Spouse Name: N/A Number of Children: N/A ??? Years of Education: N/A Occupational History ??? Not on file. Social History Main Topics ??? Smoking status: Never Smoker ??? Smokeless tobacco: Never Used ??? Alcohol Use: No ??? Drug Use: No ??? Sexual Activity: No Other Topics Concern ??? Not on file Social History Narrative Family History Problem Relation Age of Onset ??? Thyroid Disease Daughter patric thyroiditis ??? Depression Daughter ??? Anxiety Disorder Daughter ??? Depression Mother ??? Dementia Mother ??? Hypertension Mother ??? Cancer Mother ??? Depression Father ??? Hypertension Father ??? Depression Maternal Grandmother ??? Dementia Maternal Aunt ??? Dementia Maternal Aunt ??? Dementia Maternal Aunt ??? Dementia Maternal Aunt A1C 9.2 06/30/2015 SUBJECTIVE FINDINGS: A 60-year-old female presents for her toes are curling and moving to the side, mostly 3-5 but the second one as well. She relates that when she walks they pop at times. Relates no pain, no injury. She does get numbness and tingling at times in her feet. Relates no ulcers or sores,no specific treatment. She relates around Thanksgiving time she injured her right leg and heard a pop. They put her in a boot. Relates that she jammed her second toe years ago. She has had it x-rayed acouple of times and they said it was not broken but it hurts at times as well. She also dropped a dumbbell on her right dorsolateral foot and that has bothered her since then several years ago. OBJECTIVE FINDINGS: DP and PT are 2/4 bilaterally. Sharp/dull is intact with 5.07 Byfield-Kami monofilament bilaterally. She has scaly, cracked skin in a moccasin pattern bilaterally. She has dorsally contracted digits 2-5 bilaterally with lateral deviation of 3-5 bilaterally. She has dorsomedial first MPJ prominence with slight laterally deviated hallux bilaterally. She has decreased ankle jointdorsiflexion bilaterally and functional hallux limitus bilaterally. Some hyperkeratotic tissue buildup, plantar medial hallux and first MPJ bilaterally. There are no gross tendon voids bilaterally, no erythema, no drainage, no odor, no calor. She does have some edema along the peroneal tendon on the right. Has pain on palpation of the proximal fifth metatarsal base area on the right foot. ASSESSMENT AND PLAN: Hammertoes bilaterally. She has bunions present. She is diabetic. She is getting some peroneal tendinopathy on the right. There are no gross tendon voids. The Achilles tendons are intact. She did have an injury on her right leg previously. Diagnosis and treatment options discussedwith her. I advised her on stretching exercises. Prescription for diabetic shoes and custom foot orthotics given and use discussed with her. She will return to clinic and see me in 2-3 months. Again, diagnosis and treatment options discussed with her. Also, I gave her a prescription for econazole cream for her tinea pedis changes bilaterally. BRAKE OPERATOR documented in this encounter Nursing Notes Pema Cordova CNA - 07/28/2015 3:29 PM CST Becki Mackey Khai's goals for this visit include: Find a solution for right 2nd toe pain, toes She requests these members of her care team be copied on today's visit information: yes PCP: Aleks Lopez Referring Provider: Tali Vilchis MD [facility], [phone] Chief Complaint Patient presents with ??? Musculoskeletal Problem right 2nd pain, patient jammed toe with continued pain, toes spreading, popping in toes with walking Initial Wt 93.35 kg (205 lb 12.8 oz) Estimated body mass index is 37.02 kg/(m^2) as calculated from the following: Height as of 06/30/15: 1.588 m (5' 2.5). Weight as of this encounter: 93.35 kg (205 lb 12.8 oz). BP completed using cuff size: large BRAKE OPERATOR documented in this encounter Plan of Treatment Upcoming Encounters Date Type Specialty Care Team Description 05/19/2022 Office Visit ENT Dima Hidalgo M D [address] [place], [place] [address] (Wo rk) 08/02/2022 Office Visit Neurology Yair Campos MD [address] [facility] [place] [address] (Wo rk) Scheduled Referrals Name Type Priority Associated Diagnoses Order S chedule ORTHOTICS REFERRAL Referral Routine Type 2 [facility] Ordered: 07/28/2015 with complicatio n (H) Hammertoe, right Hammertoe, left Bunion, unspecified laterality documented as of this encounter Visit Diagnoses Diagnosis Type 2 diabetes mellitus with complicati on (H) - Primary Hammertoe, right Hammertoe, left Bunion, unspecified laterality Tinea pedis of both feet documented in this encounter Care Teams Technology Applications Engineer Relationship Specialty Start Date End Date Aleks Lopez MD PCP - General Family Practice 10/18/14 11/01/16 Tali Vilchis MD MD INTERNAL MEDICINE - 04/10/15 09/17/19 [address] [facility] ENDOCRINOLOGY, DIABETES [address] & [place] [address] Anat Fuller MD Internal Medicine 04/10/1509/16 MD Renee [address] [facility] [address] [place], [place] [address] Janny Hutton Physician Tube Worker Physician Tube Worker 06/1609/17/19 CARLA [address] [facility] [address] [place], [place] [id number] documented as of this encounter
--- OUTSIDE RECORDS SUMMARY | 2022-05-09 11:06 | XMS_ITS | Encounter Summary ---
:1955 Author Organization [place] Address [address] [facility] [place] [address] Care Team Providers Name Role Phone Aleks Lopez MD Primary Care Provider Tali Vilchis MD Unavailable Anat Fuller MD Unavailable [phone] Janny Hutton PA-C Unavailable [phone] Reason for Visit (Routine) - Closed Specialty Diagnoses / Procedures Referred By Contact Refer red To Contact Radiology / Radiology. Diagnoses prev pt not sure TI [facility] Procedures MA SCREENING DIGITAL BILATERAL [address], [address] [place] [address] Phone: Fax: Referral ID Status Reason Start Date Expiration Date Visits Requ ested Visits Authorized [id number] Closed 01/05/2016 01/04/2017 1 1 Encounter Details Date Type Department Care Team Description 01/08/2016 Hospital Encounter [facility] [place] Antonio Visit for screening mammogram; Sonia Raymond MD [facility] [address], [address] [place] [address] [place], [place] [phone] [address] (Work) [phone] Social History Tobacco Use Types Packs/Day Years Used Date Smoking Tobacco: Never Smokeless Tobacco: Never Alcohol Use Standard Drinks/Week Comments No 0 (1 standard drink = 0.6 oz pure alcoho l) Sex Assigned at Date Recorded Female 08/17/2018 10:39 PM CONTACT REPRESENTATIVE documented as of this encounter Medications at [...] Use to test blood 2 Box 3 06/1608/08/2016 (SOFTCLIX) sugar 2 times daily lancetsIndications: Type or as directed. 2 diabetes mellitus without complication (H) blood glucose monitoring Use to test blood 2 Box 3 06/1608/17/2018 (ULTRA THIN 30G) sugar 2 times daily lancetsIndications: (lancets that go Diabetes mellitus, type 2 with device covered (H) by insurance) Blood Glucose Monitoring Any glucose meter 1 kit 1 06/1608/17/2018 Suppl (IBG STAR) W/DEVICE covered by insurance KITIndications: Diabetes use as directed (not mellitus, type 2 (H) store brand) busPIRone (BUSPAR) 5 MG Take 5 mg by mouth 0 08/17/2018 tablet daily canaliflozin (INVOKANA) Take 300 mg by mouth 0 11/09/2016 tablet every morning (before breakfast) cetirizine (ZYRTEC) 10 MG Take 1 tablet by 90 tablet 3 07/1808/17/2018 tabletIndications: mouth daily as Asthma, Hives needed. For hives fluticasone-salmeterol Inhale 1 puff into 0 08/17/2018 (ADVAIR DISKUS) 500-50 the lungs every 12 MCG/DOSE diskus inhaler hours. furosemide (LASIX) 20 MG Take 1 tablet by 0 08/17/2018 tablet mouth 2 times daily. Glucose Blood (BLOOD Test 2 times daily 200 each 3 015 08/09/2018 GLUCOSE TEST STRIPS) (strips that go with STRPIndications: Diabetes meter covered by mellitus, type 2 (H) insurance) glucose blood test Test twice daily. 1 [...] complication (H), Hypothyroidism, unspecified hypothyroidism type levothyroxine (SYNTHROID, Take 1 tablet (50 90 tablet 3 08/02/2016 LEVOTHROID) 50 MCG mcg) by mouth daily tabletIndications: Subclinical hypothyroidism MetFORmin (GLUCOPHAGE) Take 500 mg by mouth 0 08/16/2016 500 MG tablet 2 times daily (with meals). mometasone (NASONEX) 50 1 spray by Both 0 08/16/2018 MCG/ACT nasal spray Nostrils route every 12 hours. montelukast (SINGULAIR) Take 1 tablet by 0 08/17/2018 10 MG tablet mouth daily. Potassium Gluconate 595 Take 1 tablet by 0 201008/17/2018 MG TABS mouth 2 times daily. PREDNISONE POIndications: Take 20 mg by mouth 0 03/30/2017 Type 2 diabetes mellitus as needed without complication (H), Hypothyroidism, unspecified hypothyroidism type documented as of this encounter Plan of Treatment Upcoming Encounters Date Type Specialty Care Team Description 05/19/2022 Office Visit ENT Dima Hidalgo M D [address] [facility] [place], [place] [address] (Sarah pino) 08/02/2022 Office Visit Neurology Yair Campos MD [address] [facility] [address] [place], [place] [address] (Sarah pino) documented as of this encounter Procedures Procedure Name Priority Date/Time Associated Diagnosis Comme nts MA SCREENING Routine 01/08/2016 4:07 PM Visit for screening Re sults for this BILATERAL W/ GIULIANO CDT mammogram procedure are in Mastodynia the results section. documented in this encounter Results MA Screen Bilateral w/Giuliano (01/08/2016 4:07 PM CDT) Anatomical Region Laterality Modality Breast Bilateral Mammography Specimen (Source) Anatomical Location Collection Method / Collectio n Time Received Time / Laterality Volume Impressions 01/26/2016 10:33 AM CDT IMPRESSION: BI-RADS CATEGORY: 1 - ??Negative. RECOMMENDED FOLLOW-UP: Annual Mammograph y. ?? TAQUERIA HAYS MD Narrative 01/26/2016 10:33 AM CDT SCREENING MAMMOGRAM, BILATERAL, DIGITAL w/CAD and TOMOSYNTHESIS, 01/26/2016 10:32 AM BREAST DENSITY: Scattered fibroglandular densities. CLINICAL INFORMATION: ??screening, L teddy ast pain, positional, likely musculoskeletal, Encounter for screening mammogram for malignant neoplasm of breast, Mastodynia, [place]. FINDINGS: Negative. Stable exam. Screeni ng exam in one year recommended. Procedure Note Taqueria Hays MD - 01/26/2016Formatt ing of this note might be different from the original. SCREENING MAMMOGRAM, BILATERAL, DIGITAL w/CAD and TOMOSYNTHESIS, 01/26/2016 10:32 AM BREAST DENSITY: Scattered fibroglandular densities. CLINICAL INFORMATION: screening, L breas t pain, positional, likely musculoskeletal, Encounter for screening mammogram for malignant neoplasm of breast, Mastodynia, [place]. FINDINGS: Negative. Stable exam. Screeni ng exam in one year recommended. IMPRESSION: BI-RADS CATEGORY: 1 - Negati ve. RECOMMENDED FOLLOW-UP: Annual Mammograph y. TAQUERIA HAYS MD [place] Antonio MD IMG MAMMOGRAPHY ORDERABLES documented in this encounter Visit Diagnoses Diagnosis Visit for screening mammogram Other screening mammogram Mastodynia documented in this encounter Care Teams Livery Car Driver Relationship Specialty Start Date End Date Aleks Lopez MD PCP - General Family Practice 10/18/14 11/01/16 Tali Vilchis MD MD INTERNAL MEDICINE - 04/10/15 09/17/19 [address] [facility] ENDOCRINOLOGY, DIABETES [address] & METABOLISM [place], [place] [phone] Anat Fuller MD Internal Medicine 04/10/1509/16 MD Renee [address] [facility] [address] [place], [place] [phone] Janny Hutton, Physician Dust Mill Operator Physician Dust Mill Operator 06/1609/17/19 CARLA [address] [facility] [address] [place], [place] [id number] documented as of this encounter
--- OUTSIDE RECORDS SUMMARY | 2022-05-09 11:06 | XMS_ITS | Encounter Summary ---
:1955 Author Organization [place] Address [address] [facility] [place] [address] Care Team Providers Name Role Phone Aleks Lopez MD Primary Care Provider Tali Vilchis MD Unavailable Anat Fuller MD Unavailable [phone] Janny Hutton-C Unavailable [phone] Reason for Visit Reason Comments Testing And Regulating Technician Exam Breast Problem pain in right breast for pas t month Encounter Details Date Type Department Care Team Description 12/21/2015 Office Visit [facility] Irma Antonio (Primary Dx); Lola Raymond MD Visit for screening mammogram; [address] Screening for cervical cance r; [place] [address] [facility] Encounter for gynecological examination without abnormal finding [phone] R[place]ESH DAVILA [address] Social History Tobacco Use Types Packs/Day Years Used Date Smoking Tobacco: Never Smokeless Tobacco: Never Alcohol Use Standard Drinks/Week Comments No 0 (1 standard drink = 0.6 oz pure alcoho l) Sex Assigned at Date Recorded Female 08/17/2018 10:39 PM GASTROENTEROLOGY NURSE PRACTITIONER documented as of this encounter Last Filed Vital Signs Vital Sign Reading Time Taken Comments Blood Pressure 108/70 12/21/2015 12:53 PM CDT Pulse 88 12/21/2015 12:53 PM CDT Temperature 36.9 ??C (98.4 ??F) 12/21/2015 12:53 PM CDT Respiratory Rate - - Oxygen Saturation - - Inhaled Oxygen Concentration - - Weight 90.4 kg (199 lb 4.8 oz) 12/21/2015 12:53 PM CDT Height 157.5 cm (5' 2) 12/21/2015 12:53 PM CDT Body Mass Index 36.45 12/21/2015 12:53 PM CDT documented in this encounter Patient Instructions Patient InstructionsMaye Mata LPN - 12/21/2015 12:34 PM CDT We'll let you know how your pap smear looks. You should get a call to schedule your mammogram. If you are still having breast discomfort after 2-4 weeks, I do recommend you see Dr. Araya, one of our breast specialists. [facility], [place] [phone]. Dr. Kimble FOOD SERVICE MANAGER can do your preventive visits in the future, she is wonderful. documented in this encounter Progress Notes Irma Antonio MD - 12/21/2015 12:34 PM CDT SUBJECTIVE: Becki Ridley is a 60 year old female who presents to clinic today for the following health issues: Pap only see's Dr Lopez as PCP, called and scheduled with us Right breast pain for past month. Started one day. Initially thought was because she doesn't always wear a bra. [place] like her skin on the nipple was just sensitive. Didn't go away for a few days. Went away on the nipple, but has been moving around. Problem list and histories reviewed & adjusted, as indicated. Additional history: as documented Problem list, Medication list, Allergies, and Medical/Social/Surgical histories reviewed in EPIC andupdated as appropriate. ROS: C: NEGATIVE for fever, chills, change in weight E/M: NEGATIVE for ear, mouth and throat problems R: NEGATIVE for significant cough or SOB CV: NEGATIVE for chest pain, palpitations or peripheral edema GI: NEGATIVE for nausea, abdominal pain, heartburn, or change in bowel habits : normal menstrual cycles OBJECTIVE: BP 108/70 mmHg Pulse 88 Temp(Src) 98.4 ??F (36.9 ??C) (Oral) Ht 5' 2 (1.575 m) Wt 199 lb 4.8 oz (90.402 kg) BMI 36.44 kg/m2 Body mass index is 36.44 kg/(m^2). GENERAL: healthy, alert and no distress NECK: no adenopathy, no asymmetry, masses, or scars and thyroid normal to palpation RESP: lungs clear to auscultation - no rales, rhonchi or wheezes BREAST: normal without masses, tenderness or nipple discharge and no palpable axillary masses or adenopathy CV: regular rate and rhythm, normal S1 S2, no S3 or S4, no murmur, click or rub, no peripheral edemaand peripheral pulses strong ABDOMEN: soft, nontender, no hepatosplenomegaly, no masses and bowel sounds normal (female): normal female external genitalia, normal urethral meatus, vaginal mucosa, normal cervix/adnexa/uterus without masses or discharge Diagnostic Test Results: none ASSESSMENT/PLAN: 1. Mastodynia Normal exam. Bilateral symmetric tenderness. Plan mammogram and follow up if symptoms persist or worsen - *MA Screening Digital Bilateral; Future 2. Visit for screening mammogram - *MA Screening Digital Bilateral; Future 3. Screening for cervical cancer - PAP imaged thin layer, screen Patient Instructions We'll let you know how your pap smear looks. You should get a call to schedule your mammogram. If you are still having breast discomfort after 2-4 weeks, I do recommend you see Dr. Araya, one of our breast specialists. [facility], [place] [phone]. Dr. Kimble FOOD SERVICE MANAGER can do your preventive visits in the future, she is wonderful. [place]ma Antonio MD [facility] documented in this encounter Nursing Notes Maye Mata LPN - 12/21/2015 12:56 PM CDT Chief Complaint Patient presents with ??? Testing And Regulating Technician Exam ??? Breast Problem pain in right breast for past month Initial BP 108/70 mmHg Pulse 88 Temp(Src) 98.4 ??F (36.9 ??C) (Oral) Ht 5' 2 (1.575 m) Wt 199 lb 4.8 oz (90.402 kg) BMI 36.44 kg/m2 Estimated body mass index is 36.44 kg/(m^2) as calculated from the following: Height as of this encounter: 5' 2 (1.575 m). Weight as of this encounter: 199 lb 4.8 oz (90.402 kg). BP completed using cuff size: large Maye Mata LPN documented in this encounter Miscellaneous Notes Addendum Note - Irma Antonio MD - 01/07/2016 2:02 PM CDT Addended by: IRMA ANTONIO on: 01/07/2016 02:02 PM Modules accepted: Level of Service documented in this encounter Plan of Treatment Upcoming Encounters Date Type Specialty Care Team Description 05/19/2022 Office Visit ENT Dima Hidalgo M D [address] [place], [place] [address] (Wo rk) 08/02/2022 Office Visit Neurology Yair Campos MD [address] [place] [address] (Wo rk) documented as of this encounter Procedures Procedure Name Priority Date/Time Associated Diagnosis Comme nts PAP IMAGED THIN Routine 12/21/2015 12:00 AM Screening for Resu lts for this LAYER SCREEN CDT cervical cancer procedure ar e in the results section. [...] FOLLOW-UP: Annual Mammograph y. TAQUERIA HAYS MD Irma nAtonio MD IMG MAMMOGRAPHY ORDERABLES PAP imaged thin layer, screen (12/21/2015 12:00 AM CDT) Component Value Ref Test Analysis Performed At [facility] Range Method Time Signature PAP NIL COPATH Copath Report COPATH Patient Name: BECKI RIDLEY MR#: [id number] Specimen #: [id number] Collected: 12/21/2015 Received: 12/22/2015 Reported: 12/23/2015 12:41 Ordering Phy(s): IRMA ANTONIO SPECIMEN/STAIN PROCESS: Pap imaged thin layer prep screening (Surepath, FocalPoint w ith guided screening) ? Pap-Cyto x 1, Reflex HPV if ASCUS/LSIL x 1 SOURCE: Cervical, endocervical ---- Pap imaged thin layer prep screening (Surepath, FocalPoint with guided screening) SPECIMEN ADEQUACY: Satisfactory for evaluation. -Transformation zone component absent. CYTOLOGIC INTERPRETATION: Negative for Intraepithelial Lesion or Malignancy Electronically signed out by: CHEMA Gustafson (ASCP) Processed and screened at [facility] CLINICAL HISTORY: Post Menopausal, Previous normal pap Date of Last Pap: 08/22/2013, Papanicolaou Test Limitations: ??Cervical cytology is a scre ening test with limited sensitivity; regular screening is critical for cancer prevention; Pap tests are primarily effective for the diagnosis/prevention of squamous cell carcinoma, not adenoca rcinomas or other cancers. TESTING LAB LOCATION: [facility] [address] [place], [place] ??[address] COLLECTION SITE: Client: ??[facility] Location: [facility] (R) Specimen (Source) Anatomical Collection Method Collection Time Re ceived Time Location / / Volume Laterality Cytologic 12/21/2015 12/22/2015 10:4 6 material AM CDT (specimen) Irma Antonio MD LAB - OPTIME CLINICAL SPECIM EN Performing Organization Address City/State/ZIP Code Phon e Number COPATH documented in this encounter Visit Diagnoses Diagnosis Mastodynia - Primary Visit for screening mammogram Other screening mammogram Screening for cervical cancer Screening for malignant neoplasm of the cervix Encounter for gynecological examination without abnormal finding Routine gynecological examination Visit for screening mammogram Other screening mammogram Mastodynia documented in this encounter Care Teams Starch Treating Assistant Relationship Specialty Start Date End Date Aleks Lopez MD PCP - General Family Practice 10/18/14 11/01/16 Tali Vilchis MD MD INTERNAL MEDICINE - 04/10/15 09/17/19 [address] [facility] ENDOCRINOLOGY, DIABETES [address] & METABOLISM [place], [place] [address] Anat Fuller MD Internal Medicine 04/10/1509/[address] [facility] [place], [place] [address] Janny Hutton, Physician Dye Reel Operator Helper Physician Dye Reel Operator Helper 06/1609/17/19 PA-C [address] [place] [address] [address] [place] [address] documented as of this encounter
--- OUTSIDE RECORDS SUMMARY | 2022-05-09 11:06 | XMS_ITS | Encounter Summary ---
:1955 Author Organization [place] Address [address] [facility] [place] [address] Care Team Providers Name Role Phone Aleks Lopez MD Primary Care Provider Tali Vilchis MD Unavailable Anat Fuller MD Unavailable [phone] Janny Hutton PA-C Unavailable [phone] Encounter Details Date Type Department Care Team Description 07/01/2016 Orders Only Health Lab Abnormal results of liver [address] [facility] function studies 1st Floor [place], [place] [phone] Social History Tobacco Use Types Packs/Day Years Used Date Smoking Tobacco: Never Smokeless Tobacco: Never Alcohol Use Standard Drinks/Week Comments No 0 (1 standard drink = 0.6 oz pure alcoho l) Sex Assigned at Date Recorded Female 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 documented as of this encounter Plan of Treatment Upcoming Encounters Date Type Specialty Care Team Description 05/19/2022 Office Visit ENT Dima Hidalgo M D [address] [facility] [address] (Wo rk) 08/02/2022 Office Visit Neurology Yair Campos MD [address] [facility], [place] [address] (Wo rk) documented as of this encounter Procedures Procedure Name Priority Date/Time Associated Diagnosis Comme nts INR Routine 07/01/2016 10:47 AM Abnormal results of R esults for this ELECTRONIC SECURITY TECHNICIAN liver function procedure are in studies the results section. HEPATIC FUNCTION Routine 07/01/2016 10:47 AM Abnormal results of Results for this PANEL ELECTRONIC SECURITY TECHNICIAN liver function procedure are in studies the results section. BASIC METABOLIC Routine 07/01/2016 10:47 AM Abnormal results o f Results for this PANEL ELECTRONIC SECURITY TECHNICIAN liver function procedure are in studies the results section. CBC WITH PLATELETS Routine 07/01/2016 10:47 AM Abnormal result s of Results for this ELECTRONIC SECURITY TECHNICIAN liver function procedure are in studies the results section. documented in this encounter Results INR (07/01/2016 10:47 AM ELECTRONIC SECURITY TECHNICIAN) P athologist Signature INR 0.99 0.86 - 1.14 [facility] Specimen Anatomical Collection Method Collection Time Receive d Time (Source) Location / / Volume Laterality Blood specimen 07/01/2016 10:47 6 (specimen) AM ELECTRONIC SECURITY TECHNICIAN 10:48 AM ELECTRONIC SECURITY TECHNICIAN Anat Fuller MD LAB - BLOOD ORDERABLES Performing Organization Address City/State/ZIP Code Phon e Number [address] [address] [facility] (ABNORMAL) CBC with platelets (07/01/2016 10:47 AM ELECTRONIC SECURITY TECHNICIAN) [facility] gist Method Time Signature WBC 7.3 4.0 - 11.0 [facility] 10e9/L [facility] RBC Count 5.55 (H) 3.8 - 5.2 [facility] 10e12/L [facility] Hemoglobin 14.9 11.7 - [facility] 15.7 g/dL [facility] Hematocrit 44.1 35.0 - [facility] 47.0 % [facility] MCV 80 78 - 100 [facility] fl [facility] MCH 26.8 26.5 - [facility] 33.0 pg [facility] MCHC 33.8 31.5 - [facility] 36.5 g/dL [facility] RDW 12.8 10.0 - [facility] 15.0 % [facility] Platelet Count 244 150 - 450 [facility] 10e9/L [facility] Specimen Anatomical Collection Method Collection Time Receive d Time (Source) Location / / Volume Laterality Blood specimen 07/01/2016 10:47 6 (specimen) AM ELECTRONIC SECURITY TECHNICIAN 10:48 AM ELECTRONIC SECURITY TECHNICIAN Anat Fuller MD LAB - BLOOD ORDERABLES Performing Organization Address City/[facility]/ZIP [facility] Phon e Number [address] [address] [facility] (ABNORMAL) Basic metabolic panel (07/01/2016 10:47 AM ELECTRONIC SECURITY TECHNICIAN) Patholo gist Method Time Signature Sodium 136 133 - 144 [facility] mmol/L [facility] Potassium 4.1 3.4 - 5.3 [facility] mmol/L [facility] Chloride 103 94 - 109 [facility] mmol/L [facility] Carbon Dioxide 24 20 - 32 [facility] mmol/L [facility] Anion Gap 10 3 - 14 [facility] mmol/L [facility] Glucose 341 (H) 70 - 99 [facility] mg/dL [facility] Urea Nitrogen 10 7 - 30 [facility] mg/dL [facility] Creatinine 0.50 (L) 0.52 - [facility] 1.04 [place] mg/dL [facility] GFR Estimate >90 >60 [facility] Non GFR Calc mL/min/1. [place] 7m2 [facility] GFR Estimate >90 >60 [facility] If Black GFR Calc mL/min/1. [place] 7m2 [facility] Calcium 9.0 8.5 - [facility] 10.1 [place] mg/dL [facility] Specimen Anatomical Collection Method Collection Time Receive d Time (Source) Location / / Volume Laterality Blood specimen 07/01/2016 10:47 6 (specimen) AM ELECTRONIC SECURITY TECHNICIAN 10:48 AM ELECTRONIC SECURITY TECHNICIAN Anat Fuller MD LAB - BLOOD ORDERABLES Performing Organization Address City/[facility]/ZIP Code Phon e Number [address] [address] [phone] [facility] (ABNORMAL) Hepatic panel (07/01/2016 10:47 AM ELECTRONIC SECURITY TECHNICIAN) Analysis Performed At Patho logist Time Signature Bilirubin Direct 0.2 0.0 - 0.2 [facility] mg/dL [facility] Bilirubin Total 0.8 0.2 - 1.3 [facility] mg/dL [facility] Albumin 3.6 3.4 - 5.0 [facility] g/dL [facility] Protein Total 7.3 6.8 - 8.8 [facility] g/dL [facility] Alkaline 86 40 - 150 [facility] Phosphatase U/L [facility] ALT 96 (H) 0 - 50 U/L [facility] AST 52 (H) 0 - 45 U/L [facility] Specimen Anatomical Collection Method Collection Time Receive d Time (Source) Location / / Volume Laterality Blood specimen 07/01/2016 10:47 6 (specimen) AM ELECTRONIC SECURITY TECHNICIAN 10:48 AM ELECTRONIC SECURITY TECHNICIAN Anat Fuller MD LAB - BLOOD ORDERABLES Performing Organization Address City/State/ZIP Code Phon e Number [address] [address] [facility] documented in this encounter Visit Diagnoses Diagnosis Abnormal results of liver function studi es Nonspecific abnormal results of liver fu nction study documented in this encounter Care Teams Biztalk Developer Relationship Specialty Start Date End Date Aleks Lopez MD PCP - General Family Practice 10/18/14 11/01/16 Tali Vilchis MD MD INTERNAL MEDICINE - 04/10/15 09/17/19 [address] [facility] ENDOCRINOLOGY, DIABETES [address] [place], [place] [address] Anat Fuller MD Internal Medicine 04/10/1509/16 MD Renee [address] [facility] [address] [place], [place] [id number] Janny Hutton, Physician Theater Manager Physician Theater Manager 06/1609/17/19 PA-C [address] [facility] [address] [place], [place] [address] documented as of this encounter
--- OUTSIDE RECORDS SUMMARY | 2022-05-09 11:06 | XMS_ITS | Encounter Summary ---
:1955 Author Organization [facility] Address [address] [facility] [place] [address] Care Team Providers Name Role Phone Aleks Lopez MD Primary Care Provider Tali Vilchis MD Unavailable Anat Fuller MD Unavailable [phone] Janny Hutton PA-C Unavailable [phone] Reason for Visit Reason Onset Date Comments Refill Request 07/07/2015 Test Strips Encounter Details Date Type Department Care Team Description 07/07/2015 Refill Diabetes and Endocri ne Tali Vilchis, Refill Request (Test 6th Floor, Clinic 6A MD Strips) Efrain Johnsonensteen [address] [facility] [address] [address] [place], [place] [phone] (Wo rk) [phone] Social History Tobacco Use Types Packs/Day Years Used Date Smoking Tobacco: Never Smokeless Tobacco: Never Alcohol Use Standard Drinks/Week Comments No 0 (1 standard drink = 0.6 oz pure alcoho l) Sex Assigned at Date Recorded Female 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 documented as of this encounter Miscellaneous Notes Telephone Encounter - Zoe Gorman RN - 07/07/2015 9:11 AM CST Last Seen:06-30-2015 Pending Appointment:09-24-2015 Medication:Test Strips Last Filled:unknown Qty:100 Zoe Gorman RN ING MACHINE HOST/HOSTESS documented in this encounter Plan of Treatment Upcoming Encounters Date Type Specialty Care Team Description 05/19/2022 Office Visit ENT Dima Hidalgo M D [address] [facility] [address] [place], [place] [address] (Wo rk) 08/02/2022 Office Visit Neurology Yair Campos MD [address] [facility] [place] [address] (Wo rk) documented as of this encounter Visit Diagnoses Diagnosis Type 2 diabetes mellitus without complic ation (H) - Primary documented in this encounter Care Teams Missile Inspector Preflight Relationship Specialty Start Date End Date Aleks Lopez MD PCP - General Family Practice 10/18/14 11/01/16 Tali Vilchis MD MD INTERNAL MEDICINE - 04/10/15 09/17/19 [address] [facility] ENDOCRINOLOGY, DIABETES [address] [place], [place] [phone] Anat Fuller MD Internal Medicine 04/10/1509/16 MD Renee [address] [facility] [address] [place], [place] [address] Janny Hutton Physician Meat Cutter Physician Meat Cutter 06/1609/17/19 PA-C [address] [facility] [address] [place], [place] [phone] documented as of this encounter
--- OUTSIDE RECORDS SUMMARY | 2022-05-09 11:06 | XMS_ITS | Encounter Summary ---
:1955 Author Organization [place] Address [address] [facility] [place] [address] Care Team Providers Name Role Phone Aleks Lopez MD Primary Care Provider Tali Vilchis MD Unavailable Anat Fuller MD Unavailable [phone] Vladislav Fuentes MD Unavailable [phone] Janny Hutton PA-C Unavailable [phone] Reason for Referral Patient Education - Closed Specialty Diagnoses / Procedures Referred By Contact Refer red To Contact Diagnoses Type 2 diabetes mellitus without complication (H) Hypothyroidism, unspecified hypothyroidism type Tali Vilchis MD [address] [facility] [address] [place], [place] [address] Referral ID Status Reason Start Date Expiration Date Visits Requ ested Visits Authorized [id number] Closed 06/30/2015 06/29/2016 1 1 PROJECT MANAGER Reason for Visit Reason Comments Consult Hypothyroidism Encounter Details Date Type Department Care Team Description 06/30/2015 Office Visit Diabetes and Tali Vilchis Type 2 diab etes mellitus without complication (H) (Primary Dx); Endocrine MD Kaitlynn Hypothyroidism, unspecified hypothyroidi sm type; 6th Floor, Clinic [address]A [address] Obesity, unspecified obesity severity, unspecified obesity type; Efrain Kemp [facility] 101 On corticosteroid therapy [place] [address] [place] [phone] [facility] 88 (Work) [place], [place] [phone] [address] (Fax) [phone] Social History Tobacco Use Types Packs/Day Years Used Date Smoking Tobacco: Never Smokeless Tobacco: Never Alcohol Use Standard Drinks/Week Comments No 0 (1 standard drink = 0.6 oz pure alcoho l) Sex Assigned at Date Recorded Female 08/17/2018 10:39 PM LEAD PROJECT MANAGER documented as of this encounter Last Filed Vital Signs Vital Sign Reading Time Taken Comments Blood Pressure 126/74 06/30/2015 1:46 PM LEAD PROJECT MANAGER Pulse 95 06/30/2015 1:46 PM LEAD PROJECT MANAGER Temperature - - Respiratory Rate - - Oxygen Saturation - - Inhaled Oxygen Concentration - - Weight 93.6 kg (206 lb 6.4 oz) 06/30/2015 1:46 PM LEAD PROJECT MANAGER Height 158.8 cm (5' 2.5) 06/30/2015 1:46 PM LEAD PROJECT MANAGER Body Mass Index 37.15 06/30/2015 1:46 PM LEAD PROJECT MANAGER documented in this encounter Patient Instructions Patient InstructionsTali Vilchis MD - 06/30/2015 2:22 PM CST Routine diabetes care often involves every 3 or more month frequency of visits. I work with a team in providing care for patients with diabetes. This includes the educators (nurse and neuro urologist) as well as physicians assistants. You will be seen by various members of the team over time. You should check your blood sugar about 2 times/day. Bring your blood sugar meter and a written list of your medications to future appointments. OUTPATIENT LAB - FIRST FLOOR - CLINIC 1B - Please Note: If you are active on Visuu, all future test results will be sent by Visuu message only and will no longer be sent by mail. Your test results will be available on Visuu, or sent by mail. Depending on which lab tests your doctor has ordered will determine how quickly your results will become available. The standard time for processing lab work is 2-7 days. Please note: Some lab results may take up to two weeks from the date of your lab draw to process. If you are active on Visuu, your test results will be available to view once your provider has reviewed and signed off on them. Please note: You will not receive paper results by mail. If you have not signed up for Visuu, your test results letter will be mailed to you once all the test results are final. To expedite your medication refill(s), please contact your pharmacy and have them fax a refill request to: [phone]. *Please allow 3 business days for routine medication refills. *Please allow 5 business days for controlled substance medication refills. For scheduling appointments (including lab work), please request an appointment through Visuu, or call: [phone]. For questions for your provider or the endocrine nurse, please send a Visuu message, or call: Keena at [phone] or Janny at [phone]. For after-hours urgent issues, please dial , and ask to speak with the EndocrinologistOn-Call. Please Note: If you are active on Visuu, all future test results will be sent by Visuu message only and will no longer be sent by mail. You may also receive communication directly from your physician. PROJECT MANAGER documented in this encounter Progress Notes Tali Vilchis MD - 06/30/2015 1:48 PM CST ASSESSMENT/ PLAN: 1. Subclinical hypothyroidism is documented since January,. She is off L-T4 and has some features of clinical hypothyroidism - memory/ depression. Labs today - I will restart LT4 to normalize TFTS if only for the above indications. 2. Obesity -She probably has untreated sleep apnea which is al 3. Diabetes mellitus type 2- Unstable due to steroids and severe knowledge deficit. She doesn't havea working BS meter. She hasn't had a HgbA1c in a long time. Labs today to include HgbA1c, [place] Refer to DM education for comprehensive education We will give her a new BS meter today and teach her to use it RTC 3 months with either me or PAs 4. Intermittent steroid treatments for urticaria. She is currently on prednisone 20 mg/day with veryunclear plan for what dose she will take tomorrow 5. Poor historian/ depression /memory concerns - This may be multifactorial. Plan as per # 1. She may have untreated sleep apnea Tali Vilchis MD CC/HPI:Becki presents to clinic today one hour after her scheduled appt. She is a 60 year old female whom I have seen her infrequently over the years., last time was 2011. In 2009 I started her on L-T4 for treatment of subclinical hypothyroidism, in the hope it might helpher urticaria problem. The treatment probably didn't help the urticaria. She tells me that the thyroid medication was stopped a couple of years ago at another clinic, she can't recall where. She continues to intermittently take steroids for the urticaria This affects the diabetes. When I met her in 2010 she was on byetta and metformin but she didn't seem to understand she had DM.She started Victoza in 06/[address] , [address] Dr Watson in [facility]. She was on insulin at the time of our last visit in 2011. Today she states the diabetes is being managed by her PCP Dr Lopez.She last saw him yesterday. He is in private practice so I can't see his notes on Care Everywhere. She has a history of high A1c, but it hasn't been tested in a long time. She states she was taken off the injections because of cost. She is currently taking Metformin ? 500 bid Invokanna 300 mg/day (started 04/09/15) Prednisone 20 mg/day - she has been on prednisone this time x weeks, the dose was higher before. Shesays she is stopping it tomorrow? When I pressed her on this it became clear that maybe this wan't the plan. She doesn't know what is next? Doesn't remember exactly. She has a broken BS meter. She has not been to DM. She says she came to see me today, recognizing she needs DM education. Depression is being managed by Dr Michael Fuentes - she sees him 1-2 times/month. I am unable to find him in our care team options. She can't remember WHERE she sees Dr Fuentes, she was unable to answer the question on if she sees him at [facility]. Past Medical History Past Medical History Diagnosis Date ??? Hypertension ??? Asthma ??? Arthritis ??? Restrictive lung disease ??? Angioedema ??? Sleep apnea ??? Restless legs syndrome ??? Depression ??? VILLAREAL (nonalcoholic steatohepatitis) ??? Lower extremity edema ??? Diabetes mellitus (HCC) sometimes I do ??? Blood transfusion ??? Thyroid disease ? Kidney stone Allergies Allergies Allergen Reactions ??? Cipro [Quinolones] Itching and Difficulty breathing ??? Codeine Sulfate Other (See Comments) Blacked out ??? Vicodin [Hydrocodone-Acetaminophen] Itching and Difficulty breathing ??? Darvocet [Propoxyphene N-Apap] Itching Family History + thyroid grandmother, aunts, cousins (2), + Carmen thyroiditis in daughter Social History History Substance Use Topics ??? Smoking status: Never Smoker ??? Smokeless tobacco: Never Used ??? Alcohol Use: No Disabled due to depression ROS Weight is stable Appetite is high - wakes up in the middle of the night hungry, eats in prosper middle of the night. Sleep is not good - she sleeps 1-3 hours and then awakens Vision is usually good; fuzzy when she goes for the sugar addiction; She last saw the eye doctor about at least one year ago -- she was not told of diabetic retinopathy. Cardiac: sometimes racing and skipping , sometimes palpitations; no CP Respiratory: She is not using CPAP - because she was told she didn't need it the time of the last test. She notes she didn't fall asleep for most of the night of the test. GI: negative; sometimes right sided abdomenal pain Memory problems Forgets to take medication whether et up or not. depression Nocturia x 2-3 /night; she drinks water during the night Drinks a lot of water, always thirsty Join pain Gets pains int eh right leg, like on the veins, or deep Pain in hands with any exposure to cold 10 system ROS otherwise as per the HPI or negative Current Outpatient Prescriptions Medication Sig Dispense Refill ??? order for DME Equipment being ordered: one pair of crutches. 1 Units 0 ??? canaliflozin (INVOKANA) tablet Take 300 mg by mouth every morning (before breakfast) ??? cetirizine (ZYRTEC) 10 MG tablet Take 1 tablet by mouth daily as needed. For hives 90 tablet 3 ??? ACCU-CHEK MULTICLIX LANCETS MISC test twice daily. ??? EPINEPHrine (EPIPEN 2-KITTY) 0.3 MG/0.3ML injection Inject 0.3 mg into the muscle once as needed. ??? Albuterol Sulfate (VENTOLIN HFA) 108 (90 BASE) MCG/ACT AERS Inhale 2 puffs into the lungs 4 times daily as needed. ??? traMADol (ULTRAM) 50 MG tablet Take 1 tablet (50 mg) by mouth every 8 hours as needed for severepain 30 tablet 0 ??? ibuprofen (ADVIL,MOTRIN) 200 MG tablet Take 3 tablets (600 mg) by mouth every 8 hours as needed for mild pain 20 tablet 0 ??? busPIRone (BUSPAR) 5 MG tablet Take 5 mg by mouth as needed. ??? omeprazole (PRILOSEC) 20 MG capsule Take 1 capsule by mouth daily. 90 capsule 3 ??? mometasone (NASONEX) 50 MCG/ACT nasal spray 1 spray by Both Nostrils route every 12 hours. ??? montelukast (SINGULAIR) 10 MG tablet Take 1 tablet by mouth daily. ??? glucose blood test strips (ACCU-CHEK COMPACT TEST DRUM) strip Test twice daily. 1 Box 12 ??? fluticasone-salmeterol (ADVAIR DISKUS) 500-50 MCG/DOSE diskus inhaler Inhale 1 puff into the lungs every 12 hours. ??? furosemide (LASIX) 20 MG tablet Take 1 tablet by mouth 2 times daily. ??? MetFORmin (GLUCOPHAGE) 500 MG tablet Take 500 mg by mouth 2 times daily (with meals). ??? Potassium Gluconate 595 MG TABS Take 1 tablet by mouth 2 times daily. Physical Exam BP 126/74 mmHg Pulse 95 Ht 1.588 m (5' 2.5) Wt 93.622 kg (206 lb 6.4 oz) BMI 37.13 kg/m2 Body mass index is 37.13 kg/(m^2). GENERAL : obese middle aged woman In no apparent distress. SKIN: Normal color, normal temperature, texture. No hirsutism, alopecia or purple striae. EYES: PER, [...] , EXTREMITIES: No clubbing, cyanosis or edema. DATA REVIEW: ENDO THYROID LABS-[facility] Latest Ref Rng 06/30/2015 03/28/2013 TSH 0.40 - 4.00 mU/L 6.67 (H) 7.52 (H) T4 FREE 0.76 - 1.46 ng/dL 0.97 0.91 TRIIODOTHYRONINE(T3) 60 - 181 ng/dL THYROGLOBULIN ANTIBODY <40 IU/mL THYR PEROXIDASE SKINNY <35 IU/mL ENDO THYROID LABS-[facility] Latest Ref Rng 04/03/2012 03/02/2011 TSH 0.40 - 4.00 mU/L 2.11 T4 FREE 0.76 - 1.46 ng/dL 0.91 TRIIODOTHYRONINE(T3) 60 - 181 ng/dL THYROGLOBULIN ANTIBODY <40 IU/mL <20 THYR PEROXIDASE SKINNY <35 IU/mL <10 ENDO THYROID LABS-[facility] Latest Ref Rng 02/09/2011 02/05/2010 TSH 0.40 - 4.00 mU/L 5.89 (H) 6.27 (H) T4 FREE 0.76 - 1.46 ng/dL 1.13 0.74 TRIIODOTHYRONINE(T3) 60 - 181 ng/dL THYROGLOBULIN ANTIBODY <40 IU/mL THYR PEROXIDASE SKINNY <35 IU/mL ENDO THYROID LABS-[facility] Latest Ref Rng 05/22/2007 11/13/2006 TSH 0.40 - 4.00 mU/L 3.19 3.12 T4 FREE 0.76 - 1.46 ng/dL 1.07 TRIIODOTHYRONINE(T3) 60 - 181 ng/dL 138 THYROGLOBULIN ANTIBODY <40 IU/mL <20 THYR PEROXIDASE SKINNY <35 IU/mL <10 ENDO CALCIUM LABS-[facility] Latest Ref Rng 05/26/2015 03/28/2013 CALCIUM 8.5 - 10.1 mg/dL 8.7 9.4 ALBUMIN 3.4 - 5.0 g/dL 3.4 4.0 BUN 7 - 30 mg/dL 10 13 CREATININE 0.52 - 1.04 mg/dL 0.50 (L) 0.58 ALKPHOS 40 - 150 U/L 93 88 PROTEIN, TOTAL 6.8 - 8.8 g/dL 7.2 7.0 LIPASE 20 - 250 U/L 197 PROJECT MANAGER documented in this encounter Nursing Notes Page Owens CMA - 06/30/2015 1:40 PM CST Chief Complaint Patient presents with ??? Consult Hypothyroidism Patient was seen at a private clinic that uses paper chart. Refused to give the name of the facilityand said that she wants to keep that doctor out of this treatment. Tyshawn Owens CMA 06/30/2015 1:41 PM PROJECT MANAGER documented in this encounter Plan of Treatment Upcoming Encounters Date Type Specialty Care Team Description 05/19/2022 Office Visit ENT Dima Hidalgo M D [address] [place], [place] [address] (Wo rk) 08/02/2022 Office Visit Neurology Yair Campos MD [address] [place] [address] (Wo rk) documented as of this encounter Procedures Procedure Name Priority Date/Time Associated Diagnosis Comme nts ALBUMIN RANDOM URINE Routine 06/30/2015 3:17 Type 2 diabetes R esults for this QUANTITATIVE PM LEAD PROJECT MANAGER mellitus without procedure a re in complication (H) the results Hypothyroidism, section. unspecified hypothyroidism type TSH Routine 06/30/2015 3:16 Type 2 diabetes Results f or this PM LEAD PROJECT MANAGER mellitus without procedure a re in complication (H) the results Hypothyroidism, section. unspecified hypothyroidism type T4 FREE Routine 06/30/2015 3:16 Type 2 diabetes Results f or this PM LEAD PROJECT MANAGER mellitus without procedure a re in complication (H) the results Hypothyroidism, section. unspecified hypothyroidism type HEMOGLOBIN A1C Routine 06/30/2015 3:16 Type 2 diabetes Results for this PM LEAD PROJECT MANAGER mellitus without procedure a re in complication (H) the results Hypothyroidism, section. unspecified hypothyroidism type documented in this encounter Results Microalbumin quantitative random urine (06/30/2015 3:17 PM LEAD PROJECT MANAGER) P athologist Signature Creatinine 73 mg/dL [facility] Urine [facility] Albumin Urine 8 mg/L [facility] mg/L [facility] Albumin Urine 11.07 0 - 25 [facility] mg/g Cr mg/g Cr [facility] Specimen Anatomical Collection Method Collection Time Receive d Time (Source) Location / / Volume Laterality Urine specimen 06/30/2015 3:17 PM 015 3:18 (specimen) LEAD PROJECT MANAGER PM LEAD PROJECT MANAGER Tali Vilchis MD LAB - URINE ORDERABLES Performing Organization Address City/State/ZIP Code Phon e Number [address] (ABNORMAL) Hemoglobin A1c (06/30/2015 3:16 PM LEAD PROJECT MANAGER) Analysis Performed At Patho logist Time Signature Hemoglobin A1C 9.2 (H) 4.3 - 6.0 [facility] Specimen Anatomical Collection Method Collection Time Receive d Time (Source) Location / / Volume Laterality Blood specimen 06/30/2015 3:16 PM 015 3:17 (specimen) LEAD PROJECT MANAGER PM LEAD PROJECT MANAGER Tali Vilchis MD LAB - BLOOD ORDERABLES Performing Organization Address City/State/ZIP Code Phon e Number [facility] [address] T4 free (06/30/2015 3:16 PM LEAD PROJECT MANAGER) athologist Signature T4 Free 0.97 0.76 - 1.46 [facility] ng/dL [facility] Specimen Anatomical Collection Method Collection Time Receive d Time (Source) Location / / Volume Laterality Blood specimen 06/30/2015 3:16 PM 015 3:17 (specimen) LEAD PROJECT MANAGER PM LEAD PROJECT MANAGER Tali Vilchis MD LAB - BLOOD ORDERABLES Performing Organization Address City/State/ZIP Code Phon e Number [facility] [address] [place], [place] [id number] [place] [address] (ABNORMAL) TSH (06/30/2015 3:16 PM LEAD PROJECT MANAGER) P athologist Signature TSH 6.67 (H) 0.40 - 4.00 [facility]/L [facility] Specimen Anatomical Collection Method Collection Time Receive d Time (Source) Location / / Volume Laterality Blood specimen 06/30/2015 3:16 PM 015 3:17 (specimen) LEAD PROJECT MANAGER PM LEAD PROJECT MANAGER Tali Vilchis MD LAB - BLOOD ORDERABLES Performing Organization Address City/State/ZIP Code Phon e Number [facility] [address] [place] [address] [facility] documented in this encounter Visit Diagnoses Diagnosis Type 2 diabetes mellitus without complic ation (H) - Primary Hypothyroidism, unspecified hypothyroidi sm type Obesity, unspecified obesity severity, u nspecified obesity type On corticosteroid therapy documented in this encounter Care Teams Geologist Relationship Specialty Start Date End Date Aleks Lopez MD PCP - General Family Practice 10/18/14 11/01/16 Tali Vilchis MD MD INTERNAL MEDICINE - 04/10/15 09/17/19 [address] [facility] ENDOCRINOLOGY, DIABETES 101 & METABOLISM [place], [place] [phone] Anat Fuller MD Internal Medicine 04/10/1509/16 MD Renee [address] [facility] [address] [place], [place] [address] Vladislav Fuentes MD Psychiatry 06/30/1506/30 MD [facility] [address] [place] [address] Janny Hutton Physician Apartment Maintenance Supervisor Physician Apartment Maintenance Supervisor 06/1609/17/19 JAIRO-C [address] [facility] [address] [place], [place] [address] documented as of this encounter
--- OUTSIDE RECORDS SUMMARY | 2022-05-09 11:06 | XMS_ITS | Encounter Summary ---
:1955 Author Organization [place] Address [facility] [place] [address] Care Team Providers Name Role Phone Aleks Lopez MD Primary Care Provider Tali Vilchis MD Unavailable Anat Fuller MD Unavailable [phone] Encounter Details Date Type Department Care Team Description 05/07/2015 Orders Only Hepatology/Gastroentero Amparo, Nons pecific abnormal viviana Drummond LPN results of liver 2nd Floor, Clinic 2A function study (Primary Zuniga Wangensrolando Dx) Building [address] [place] [id number] Social History Tobacco Use Types Packs/Day Years Used Date Smoking Tobacco: Never Smokeless Tobacco: Never Alcohol Use Standard Drinks/Week Comments No 0 (1 standard drink = 0.6 oz pure alcoho l) Sex Assigned at Date Recorded Female 08/17/2018 10:39 PM UTILITY TECH documented as of this encounter Plan of Treatment Upcoming Encounters Date Type Specialty Care Team Description 05/19/2022 Office Visit ENT Dima Hidalgo M D [address] [address] (Wo rk) 08/02/2022 Office Visit Neurology Yair Campos MD [address] [place] [address] (Wo rk) documented as of this encounter Results (ABNORMAL) Basic metabolic panel (05/26/2015 9:49 AM UTILITY TECH) [facility] Method Time Signature Sodium 137 133 - 144 [facility] mmol/L [facility] Potassium 3.8 3.4 - 5.3 [facility] mmol/L [facility] Chloride 104 94 - 109 [facility] mmol/L [facility] Carbon Dioxide 24 20 - 32 [facility] mmol/L [facility] Anion Gap 9 3 - 14 [facility] mmol/L [facility] Glucose 304 (H) 70 - 99 [facility] mg/dL [facility] Urea Nitrogen 10 7 - 30 [facility] mg/dL [facility] Creatinine 0.50 (L) 0.52 - [facility] 1.04 [facility] mg/dL [facility] GFR Estimate >90 >60 [facility] Non GFR Calc mL/min/1. [facility] 7m2 [facility] GFR Estimate >90 >60 [facility] If Black GFR Calc mL/min/1. [place] [facility] 7m2 [facility] Calcium 8.7 8.5 - [facility] 10.1 [facility] mg/dL [facility] Specimen Anatomical Collection Method Collection Time Receive d Time (Source) Location / / Volume Laterality Blood specimen 05/26/2015 9:49 AM 015 (specimen) UTILITY TECH 10:19 AM UTILITY TECH Nsaeem Bravo MD LAB - BLOOD ORDERABLES Performing Organization Address City/[facility]/ZIP Code Phon e Number [address] INR (05/26/2015 9:49 AM UTILITY TECH) P athologist Signature INR 1.00 0.86 - 1.14 [facility] Specimen Anatomical Collection Method Collection Time Receive d Time (Source) Location / / Volume Laterality Blood specimen 05/26/2015 9:49 AM 015 (specimen) UTILITY TECH 10:19 AM UTILITY TECH Naseem Bravo MD LAB - BLOOD ORDERABLES Performing Organization Address City/State/ZIP Code Phon e Number [address] (ABNORMAL) CBC with platelets (05/26/2015 9:49 AM UTILITY TECH) [facility] Method Time Signature WBC 7.7 4.0 - 11.0 [facility] 10e9/L [facility] RBC Count 5.28 (H) 3.8 - 5.2 [facility] 10e12/L [facility] Hemoglobin 14.5 11.7 - [facility] 15.7 g/dL [facility] Hematocrit 42.9 35.0 - [facility] 47.0 % [facility] MCV 81 78 - 100 [facility] fl [facility] MCH 27.5 26.5 - [facility] 33.0 pg [facility] MCHC 33.8 31.5 - [facility] 36.5 g/dL [facility] RDW 13.7 10.0 - [place] [facility] 15.0 % [facility] Platelet Count 195 150 - 450 [facility] 10e9/L [facility] Specimen Anatomical Collection Method Collection Time Receive d Time (Source) Location / / Volume Laterality Blood specimen 05/26/2015 9:49 AM 015 (specimen) UTILITY TECH 10:19 AM UTILITY TECH Naseem Bravo MD LAB - BLOOD ORDERABLES Performing Organization Address City/[facility]/ZIP Code Phon e Number [address] [address] [facility] (ABNORMAL) Hepatic panel (05/26/2015 9:49 AM UTILITY TECH) Analysis Performed At Patho logist Time Signature Bilirubin Direct 0.1 0.0 - 0.2 [facility] mg/dL [facility] Bilirubin Total 0.6 0.2 - 1.3 [facility] mg/dL [facility] Albumin 3.4 3.4 - 5.0 [facility] g/dL [facility] Protein Total 7.2 6.8 - 8.8 [facility] g/dL [facility] Alkaline 93 40 - 150 [facility] Phosphatase U/L [facility] ALT 98 (H) 0 - 50 U/L [facility] AST 42 0 - 45 U/L [facility] Specimen Anatomical Collection Method Collection Time Receive d Time (Source) Location / / Volume Laterality Blood specimen 05/26/2015 9:49 AM 015 (specimen) UTILITY TECH 10:19 AM UTILITY TECH Naseem Bravo MD LAB - BLOOD ORDERABLES Performing Organization Address City/State/ZIP Code Phon e Number [facility] [address] [place], [place] [phone] [place] [address] documented in this encounter Visit Diagnoses Diagnosis Nonspecific abnormal results of liver fu nction study - Primary documented in this encounter Care Teams Hand Counter Relationship Specialty Start Date End Date Aleks Lopez MD PCP - General Family Practice 10/18/14 11/01/16 Tali Vilchis MD MD INTERNAL MEDICINE - 04/10/15 09/17/[address] [place] [address] [address] ENDOCRINOLOGY, DIABETES & [place], [place] [phone] [place] [address] Anat Fuller MD Internal Medicine 04/10/1509/16 MD Renee [address] [place] [address] [address] [place] [address] documented as of this encounter
--- OUTSIDE RECORDS SUMMARY | 2022-05-09 11:07 | XMS_ITS | Encounter Summary ---
:1955 Author Organization [place] Address [facility] [place] [address] Care Team Providers Name Role Phone Chelsy Bynum MD, Haroldo Primary Care Provider Aleks Lopez MD Primary Care Provider Tali Vilchis MD Unavailable Anat Fuller MD Unavailable [phone] Vladislav Fuentes MD Unavailable [phone] Janny Hutton PA-C Unavailable [phone] No Ref-Primary, Physician Primary Care Provider [phone] PratikKrystin newby APRN SAFE EXPERT Primary Care Provider [phone] Comfort Nichols MD Unavailable Florecita Bryan RN Unavailable PratikKrystin newby APRN SAFE EXPERT Unavailable [phone] Comfort Nichols MD Unavailable PratikKrystin newby APRN SAFE EXPERT Unavailable [phone] Sonja Tinajero [facility] Unavailable [phone] Kelly De Oliveira [facility] Unavailable Eduin Wilhelm Unavailable Unavailable Cecilia Aleman MD Unavailable [phone] Thalia Glass MD Unavailable [phone] Vinita Linares RN Unavailable Unavailable PratikKrystin newby EDUCATIONAL THERAPIST SAFE EXPERT Primary Care Provider [phone] Deyanira Stewart [facility] Unavailable Nadira Nichols RN Unavailable Unavailable ArguetaFrank sanchez Unavailable Unavailable Thalia Glass MD Unavailable [phone] Anat Fuller MD Unavailable [phone] Eric Abdi MD Unavailable [phone] Cecilia Aleman MD Unavailable [phone] Sonja Tinajero [facility] Unavailable [phone] Vidhi Paiz APRN SAFE EXPERT Unavailable [phone] Krystin Christie APRN SAFE EXPERT Unavailable +[phone] Sea Tsai DO Unavailable [phone] Vidhi Paiz APRN SAFE EXPERT Unavailable +[phone] Sea Tsai DO Unavailable [phone] Stephanie Canela MD Unavailable [phone] Krystin Christie APRN SAFE EXPERT Unavailable [phone] Dima Hidalgo MD Unavailable Dima Hidalgo MD Unavailable Encounter Details Date Type Department Care Team Description 07/10/2014 Records - [facility] CONVERSION Scan, Non-Provider Social History Tobacco Use Types Packs/Day Years Used Date Smoking Tobacco: Never Smokeless Tobacco: Never Alcohol Use Standard Drinks/Week Comments No 0 (1 standard drink = 0.6 oz pure alcoho l) Sex Assigned at Date Recorded Female 08/17/2018 10:39 PM [employer] documented as of this encounter Plan of Treatment Upcoming Encounters Date Type Specialty Care Team Description 05/19/2022 Office Visit ENT Dima Hidalgo M D [address] [place], [place] [address] (Wo rk) 08/02/2022 Office Visit Neurology Yair Campos MD [address] [place] [id number] (Wo rk) documented as of this encounter Visit Diagnoses Not on filedocumented in this encounter Care Teams 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 Relationship Specialty Start Date End Date Haroldo Valentino V, PCP - General Internal Medicine 05/26/14 5 MD [facility]I [facility] [place] [address] [place], [place] [id number] Aleks Lopez MD PCP - General Family Practice 10/18/14 11/01/16 No Ref-Primary, PCP - General 11/02/16 12/14/17 Physician Krystin Christie PCP - General Nurse Practitioner 12/15/17 09/08/19 SAURABH Engel SAFE EXPERT [address] [facility] [place] [address] Comfort Nichols, PCP - Assigned PCP 04/08/[address] [place] [address] [place] [id number] Krystin Christie PCP - Assigned PCP 08/26/18 09/18/18 SAURABH Engel SAFE EXPERT [address] [facility] [place] [address] Krystin Christie PCP - General Nurse Practitioner 09/18/19 SAURABH Engel SAFE EXPERT [address] [facility] [place] [address] Tali Vilchis MD INTERNAL MEDICINE - 04/10/15 MD Kaitlynn ENDOCRINOLOGY, [address] [place] [address] DIABETES & METABOLISM [address] [place] [address] Anat Fuller MD Internal Medicine 04/10/15 09/17/19 Krystin Duran MD [address] [facility] [address] [place] [address] Vladislav Fuentes MD Psychiatry 06/30/15 06/30/15 Mahamed Mcneill MD [facility] [address] [place], [place] [id number] Janny Hutton Physician Remelt Operator Physician Remelt Operator 06/30/15 09/17/19 CARLA Mckeon [address] [facility] [address] [place] [address] Florecita Bryan, Lead Palliative Medicine Physician 08/17/18 RN Comfort Nichols, Assigned PCP 04/08/18 08/25/[address] [facility] [place] [address] Krystin Christie Assigned PCP 08/26/18 01/28/21 SAURABH Engel SAFE EXPERT [address] [place] [place] [address] Sonja Tinajero Pharmacist Pharmacist 12/24/18 09/17/19 Dev [facility] [address] [place] [address] Kelly De Oliveira, Pharmacist Pharmacist 01/21/19 06/24/19 [facility] [address] [place] [address] Eduin Wilhelm Personal Advocate & 06/17/19 09/17/19 Liaison (PAL) Cecilia Aleman MD Urology 07/22/19 09/17/19 MD Lyly [address] [facility] [address] [place], [place] [address] Joan Monroe MD Obstetrics 07/22/19 09/17/19 Thalia Engel MD [address] [facility] [address] [place], [place] [address] Vinita Linares, RN Registered Nurse 07/22/19 09/17/19 Deyanira Stewart, Pharmacist Pharmacist 01/13/20 08/24/20 [facility] [address] [place] [address] Nadira Nichols, RN Lead Palliative Medicine Physician Primary Care - CC 01/21/20 03/02/20 Frank Argueta Community Health Worker 01/21/2002/14 Joan Monroe, Assigned OBGYN Provider 05/08/2001/16/21 Thalia Engel MD [address] [facility] [address] [place], [place] [address] Anat Fuller Assigned Gastroenterology 05/08/20 12/12/20 Krystin Duran MD Provider [address] [facility] [address] [place], [place] [address] Eric Abdi Assigned Musculoskeletal 05/08/20 03/27/21 MD Joo Provider [facility] [address] [place] [address] Cecilia Aleman Assigned Surgical 05/08/20 03/06/21 MD Lyly Provider [address] [facility] [address] [place], [place] [address] Sonja Tinajero Pharmacist 08/24/20 Dev, [facility] [address] [place] [address] Vidhi Paiz Assigned PCP 01/29/21 07/10/21 SAURABH Turner SAFE EXPERT [address] [place] [address] Krystin Christie Assigned PCP 07/11/21 07/24/21 SAURABH Engel SAFE EXPERT [address] [facility] [address] [place] [id number] MD Eulalio Neurology 08/04/21 Sea Fink DO [address] [place], [place] [address] Vidhi Paiz Assigned PCP 07/25/21 01/07/22 SAURABH Turner SAFE EXPERT [address] [place] [address] Isha Tsai Neuroscience 10/10/21 Sea Fink DO Provider [address] [place] [address] Stephanie Canela Assigned OBGYN Provider 12/05/21 MD Alee [address] [address] Krystin Christie Assigned PCP 01/08/22 SAURABH Engel SAFE EXPERT [address] [facility] [place] [address] Dima Hidalgo MD MD Otolaryngology 02/15/22 [place] [id number] Dima Hidalgo MD Assigned Surgical 03/12/22 Ronald [place] [id number] documented as of this encounter
--- OUTSIDE RECORDS SUMMARY | 2022-05-09 11:07 | XMS_ITS | Encounter Summary ---
:1955 Author Organization [place] Address [address] [place] [address] Care Team Providers Name Role Phone Chelsy Bynum MD, [place] Primary Care Provider Reason for Visit Reason Comments Head Injury Encounter Details Date Type Department Care Team Description 05/26/2014 Emergency [facility] Manny Sow MD Head contusion, initial encounter (Prima ry Dx); [facility] Acu te neck pain; Dept PA Shoulder contusion, right, initial encou nter; [address] Acute back pain; [place], [place] [address] Displacement of cervical intervertebral disc without myelopathy [id number] [place] [address] [phone] (Wo rk) Social History Tobacco Use Types Packs/Day Years Used Date Smoking Tobacco: Never Smokeless Tobacco: Never Alcohol Use Standard Drinks/Week Comments No 0 (1 standard drink = 0.6 oz pure alcoho l) Sex Assigned at Date Recorded Female 08/17/2018 10:39 PM ACCOUNT EXECUTIVE SALES REPRESENTATIVE documented as of this encounter Last Filed Vital Signs Vital Sign Reading Time Taken Comments Blood Pressure 124/74 05/26/2014 9:57 PM ACCOUNT EXECUTIVE SALES REPRESENTATIVE Pulse - - Temperature 36.6 ??C (97.9 ??F) 05/26/2014 9:57 PM ACCOUNT EXECUTIVE SALES REPRESENTATIVE Respiratory Rate 20 05/26/2014 9:57 PM ACCOUNT EXECUTIVE SALES REPRESENTATIVE Oxygen Saturation 98% 05/26/2014 9:57 PM ACCOUNT EXECUTIVE SALES REPRESENTATIVE Inhaled Oxygen Concentration - - Weight 89.4 kg (197 lb) 05/26/2014 9:57 PM ACCOUNT EXECUTIVE SALES REPRESENTATIVE Height 160 cm (5' 3) 05/26/2014 9:57 PM ACCOUNT EXECUTIVE SALES REPRESENTATIVE Body Mass Index 34.9 05/26/2014 9:57 PM ACCOUNT EXECUTIVE SALES REPRESENTATIVE documented in this encounter Discharge Instructions Discharge InstructionsManny Sow MD - 05/26/2014 10:56 PM CST Discharge Instructions Head Injury You have been seen today for a head injury. You were checked for serious problems, like bleeding on the brain, but these problems cannot always be found right away. Due to this risk, you should not be alone for 24 hours after your injury. Follow up with your regular physician in 3 days. If you are taking a blood thinner, such as aspirin, Pradaxa?? (dabigatran), Coumadin?? (warfarin), or Plavix?? (clopidogrel), you are at especially high risk for immediate or delayed bleeding, and need to re-check with a physician in 24 hours, or sooner if any of the symptoms below happen. Return to the Emergency Department if: ??? You are confused, have amnesia, or you are not acting right. ??? Your headache gets worse or you start to have a really bad headache even with your recommended treatment plan. ??? You vomit more than once. ??? You have a convulsion or seizure. ??? You have trouble walking. ??? You have weakness or paralysis in an arm or a leg. ??? You have blood or fluid coming from your ears or nose. ??? You have new symptoms or anything that worries you. Sleeping: It is okay for you to sleep, but someone should wake you up as instructed by your doctor, and someone should check on you at your usual time to wake up. Activity: ??? Do not drive for at least 24 hours. ??? Do not drive if you have dizzy spells or trouble concentrating, or remembering things. ??? Do not return to any contact sports until cleared by your regular doctor. Follow-up: It is very important that you make an appointment with your clinic and go to the appointment. If you do not follow-up with your regular doctor, it may result in missing an important development which could result in permanent injury or disability and/or lasting pain. If there is any problemkeeping your appointment, call your doctor or return to the Emergency Department. MORE INFORMATION: Concussion: A concussion is a minor head injury that may cause temporary problems with the way your brain works. Some symptoms include: confusion, amnesia, nausea and vomiting, dizziness, fatigue, memory or concentration problems, irritability and sleep problems. CT Scans: Your evaluation today may have included a CT scan (CAT scan) to look for things like bleeding or a skull fracture (break). CT scans involve radiation and too many CT scans can cause serious health problems like cancer, especially in children. Because of this, your doctor may not have ordereda CT scan today if they think you are at low risk for a serious or life threatening problem. If you were given a prescription for [...] call or return to the Emergency Department. Opioid Medication Information Pain medications are among the most commonly prescribed medicines, so we are including this information for all our patients. If you did not receive pain medication or get a prescription for pain medicine, you can ignore it. You may have been given a prescription for an opioid (narcotic) pain medicine and/or have received apain medicine while here in the Emergency Department. These medicines can make you drowsy or impaired. You must not drive, operate dangerous equipment, or engage in any other dangerous activities whiletaking these medications. If you drive while taking these medications, you could be arrested for DUI, or driving under the influence. Do not drink any alcohol while you are taking these medications. Opioid pain medications can cause addiction. If you have a history of chemical dependency of any type, you are at a higher risk of becoming addicted to pain medications. Only take these prescribed medications to treat your pain when all other options have been tried. Take it for as short a time and asfew doses as possible. Store your pain pills in a secure place, as they are frequently stolen and provide a dangerous opportunity for children or visitors in your house to start abusing these powerful medications. We will not replace any lost or stolen medicine. As soon as your pain is better, you should flush all your remaining medication. Many prescription pain medications contain Tylenol?? (acetaminophen), including Vicodin??, Tylenol #3??, Newport??, Lortab??, and Percocet??. You should not take any extra pills of Tylenol?? if you are using these prescription medications or you can get very sick. Do not ever take more than 3000 mg of acetaminophen in any 24 hour period. All opioids tend to cause constipation. Drink plenty of water and eat foods that have a lot of fiber, such as fruits, vegetables, prune juice, apple juice and high fiber cereal. Take a laxative if you don???t move your bowels at least every other day. Miralax??, Milk of Magnesia, Colace??, or Senna?? can be used to keep you regular. Remember that you can always come back to the Emergency Department if you are not able to see your regular doctor in the amount of time listed above, if you get any new symptoms, or if there is anything that worries you. Discharge Instructions Neck Strain You have been seen today for a neck sprain or strain. Neck strains usually result from an injury to the neck. Car accidents, contact sports and falls are common causes of neck strain. Sometimes your neck can start to hurt because of increased activity, muscle tension, an abnormal sleeping position, orbecause of other problems like arthritis in the neck. Neck pain usually comes from injured muscles and ligaments. Sometimes there is a herniated (???slipped?? ) disc. We don???t usually do MRI scans to look for these right away, since most herniated discswill get better on their own with time. Today, we did not find any evidence that your neck pain was caused by a serious condition, such as an infection, fracture, or tumor. However, sometimes symptoms develop over time and cannot be found during an emergency visit, so it is very important that you follow up with your primary doctor. Return to the Emergency Department if: ??? You have increasing pain in your neck. ??? You develop difficulty swallowing or breathing. ??? You have numbness, weakness, or trouble moving your arms or legs. ??? You have severe dizziness and difficulty walking. ??? You are unable to control your bladder or bowels. ??? You develop severe headache or ringing in the ears. Call your doctor if: ??? Your neck pain is not controlled with the medicine we gave you. ??? You are not back to normal within 1 week. What can I do to help myself at home? If you had an injury, use cold for the first 1-2 days. Cold helps relieve pain and reduce inflammation. Apply ice packs to the neck or areas of pain every 1-2 hours for 20 minutes at [address] time[address] Place a towel or cloth between your skin and the ice pack. ??? After the first 2 days, using heat can help with neck pain and stiffness. You may use a warm shower or bath, warm towels on the neck, or a heating pad. Do not sleep with a heating pad, as you can be burned. ??? Pain medications - You may take a pain medication such as Tylenol?? (acetaminophen), Advil??, Nuprin?? (ibuprofen) or Aleve?? (naproxen). If you have been given a narcotic such as Vicodin?? (hydrocodone with acetaminophen), Percocet?? (oxycodone with acetaminophen), codeine, or a muscle relaxant such as Flexeril?? (cyclobenzaprine) or Soma?? (carisoprodol), do not drive for four hours after you have taken it. If the narcotic contains Tylenol?? (acetaminophen), do not take Tylenol?? with it. All narcotics will cause constipation, so eat a high fiber diet. ??? It is usually best to rest the neck for 1-2 days after an injury, then start gentle stretching exercises. ??? It is helpful to place a small pillow under the nape of your neck to provide proper neutral positioning. ??? You should stay active and do your usual work as much as you can, unless this involves heavy physical labor. Ask your doctor if you need work restrictions. If you were given a prescription for [...] call or return to the Emergency Department. Opioid Medication Information Pain medications are among the most commonly prescribed medicines, so we are including this information for all our patients. If you did not receive pain medication or get a prescription for pain medicine, you can ignore it. You may have been given a prescription for an opioid (narcotic) pain medicine and/or have received apain medicine while here in the Emergency Department. These medicines can make you drowsy or impaired. You must not drive, operate dangerous equipment, or engage in any other dangerous activities whiletaking these medications. If you drive while taking these medications, you could be arrested for DUI, or driving under the influence. Do not drink any alcohol while you are taking these medications. Opioid pain medications can cause addiction. If you have a history of chemical dependency of any type, you are at a higher risk of becoming addicted to pain medications. Only take these prescribed medications to treat your pain when all other options have been tried. Take it for as short a time and asfew doses as possible. Store your pain pills in a secure place, as they are frequently stolen and provide a dangerous opportunity for children or visitors in your house to start abusing these powerful medications. We will not replace any lost or stolen medicine. As soon as your pain is better, you should flush all your remaining medication. Many prescription pain medications contain Tylenol?? (acetaminophen), including Vicodin??, Tylenol #3??, Newport??, Lortab??, and Percocet??. You should not take any extra pills of Tylenol?? if you are using these prescription medications or you can get very sick. Do not ever take more than 3000 mg of acetaminophen in any 24 hour period. All opioids tend to cause constipation. Drink plenty of water and eat foods that have a lot of fiber, such as fruits, vegetables, prune juice, apple juice and high fiber cereal. Take a laxative if you don???t move your bowels at least every other day. Miralax??, Milk of Magnesia, Colace??, or Senna?? can be used to keep you regular. Remember that you can always come back to the Emergency Department if you are not able to see your regular doctor in the amount of time listed above, if you get any new symptoms, or if there is anything that worries you. Discharge Instructions Back Pain You were seen today for back pain. Back pain can have many causes, but most will get better without surgery or other specific treatment. Sometimes there is a herniated (???slipped?? ) disc. We don???t usually do MRI scans to look for these right away, since most herniated discs will get better on their own with time. Today, we did not find any evidence that your back pain was caused by a serious condition, such as an infection, fracture, or tumor. However, sometimes symptoms develop over time and cannot be found during an emergency visit, so it is very important that you follow up with your primarydoctor. Return to the Emergency Department if: ??? You develop a fever with your back pain. ??? You have weakness or change in sensation in one or both legs. ??? You lose control of your bowels or bladder, or can???t empty your bladder. ??? Your pain gets much worse. Follow-up with your doctor: ??? Unless your pain has completely gone away, please make an appointment with your doctor within one week. You may need further management of your back pain, such as more pain medication, imaging suchas an X-ray or MRI, or physical therapy. What can I do to help myself? Remain Active -- People are often afraid that they will hurt their back further or delay recovery by remaining active, but this is one of the best things you can do for your back. In fact, prolonged bed rest is not recommended. Studies have shown that people with low back pain recover faster when they remain active. Movement helps to bring blood flow to the muscles and relieve muscle spasms as well as preventing loss of muscle strength. ??? Heat -- Using a heating pad can help with low back pain during the first few weeks. Do not sleepwith a heating pad, as you can be burned. ??? Pain medications - You may take a pain medication such as Tylenol?? (acetaminophen), Advil??, Nuprin?? (ibuprofen) or Aleve?? (naproxen). If you have been given a narcotic such as Vicodin?? (hydrocodone with acetaminophen), Percocet?? (oxycodone with acetaminophen), codeine, or a muscle relaxant such as Flexeril?? (cyclobenzaprine) or Soma?? (carisoprodol), do not drive for four hours after you have taken it. If the narcotic contains Tylenol?? (acetaminophen), do not take Tylenol?? with it. All narcotics will cause constipation, so eat a high fiber diet. If you were given a prescription for [...] call or return to the Emergency Department. Opioid Medication Information Pain medications are among the most commonly prescribed medicines, so we are including this information for all our patients. If you did not receive pain medication or get a prescription for pain medicine, you can ignore it. You may have been given a prescription for an opioid (narcotic) pain medicine and/or have received apain medicine while here in the Emergency Department. These medicines can make you drowsy or impaired. You must not drive, operate dangerous equipment, or engage in any other dangerous activities whiletaking these medications. If you drive while taking these medications, you could be arrested for DUI, or driving under the influence. Do not drink any alcohol while you are taking these medications. Opioid pain medications can cause addiction. If you have a history of chemical dependency of any type, you are at a higher risk of becoming addicted to pain medications. Only take these prescribed medications to treat your pain when all other options have been tried. Take it for as short a time and asfew doses as possible. Store your pain pills in a secure place, as they are frequently stolen and provide a dangerous opportunity for children or visitors in your house to start abusing these powerful medications. We will not replace any lost or stolen medicine. As soon as your pain is better, you should flush all your remaining medication. Many prescription pain medications contain Tylenol?? (acetaminophen), including Vicodin??, Tylenol #3??, Newport??, Lortab??, and Percocet??. You should not take any extra pills of Tylenol?? if you are using these prescription medications or you can get very sick. Do not ever take more than 3000 mg of acetaminophen in any 24 hour period. All opioids tend to cause constipation. Drink plenty of water and eat foods that have a lot of fiber, such as fruits, vegetables, prune juice, apple juice and high fiber cereal. Take a laxative if you don???t move your bowels at least every other day. Miralax??, Milk of Magnesia, Colace??, or Senna?? can be used to keep you regular. Remember that you can always come back to the Emergency Department if you are not able to see your regular doctor in the amount of time listed above, if you get any new symptoms, or if there is anything that worries you. Discharge Instructions Extremity Injury You were seen today for an injury to an extremity (arm, hand, leg, or foot). You may have a bruise, strain, or fracture (broken bone). Return to the Emergency Department or see your regular doctor if your injured area is not back to normal within 5-7 days. Return to the Emergency Department right away if: ??? Your pain seems to change or get worse or there is pain in a new area. ??? Your extremity becomes pale, cool, blue, or numb or tingling past the injury. ??? You have more drainage, redness or pain in the area of the cut or abrasion. ??? You have pain that you can???t control with the medicine recommended or prescribed here, or you have pain that seems too much for your injury. ??? Your child will not stop crying or is much more fussy than normal. ??? You have new symptoms or anything that worries you. What to Expect: ??? Your swelling and pain may be worse the day after your injury, but should not be severe and should start getting better after that. You should not have new symptoms and your pain should not get worse. ??? You may start to get a bruise over the injured area or below the injured area. ??? Your movement and strength should get better with time. ??? Some injuries may not show up until after you have left the Emergency Department so it is important to follow-up with your regular doctor. ??? Your injury may prevent you from working. Follow-up with your regular doctor to get a work release note. ??? Pain medications or your injury may make it unsafe to drive or operate machinery. Home Care: ??? Apply ice your injured area for 15 minutes at a time, at least 3 times a day. Use a cloth between the ice bag and your skin to prevent frostbite. ??? Do not sleep with an ice pack or heating pad on, since this can cause gomez or skin injury. ??? Rest your injured area for at least 1-2 days. After that you may start using your extremity again as long as there is not too much pain. ??? Raise the injured area above the level of your heart as much as possible in the first 1-2 days. ??? Use Tylenol?? (acetaminophen), Motrin (ibuprofen), or Advil?? (ibuprofen) for your pain unless you have an allergy or are told not to use these medications by your doctor. Take the medications as instructed on the package. Tylenol?? (acetaminophen) is in many prescription medicines and non-prescription medicines--check all of your medicines to be sure you aren???t taking more than 3000 mg per day. ??? You may use an elastic bandage (Eyal?? Wrap) if it makes you more comfortable. Wrap it just tightenough to provide light compression, like a new pair of socks feels. Loosen the bandage if you have swelling past the bandage. ??? Please follow any other instructions that were discussed with you by your doctor. MORE INFORMATION: X-rays: X-rays done today were read by your doctor but will also be read by a radiologist. We will contact you if the radiologist sees anything different on the x-ray. Your regular doctor may also wantto review your x-rays on follow-up. You could have a fracture (break), even if we told you your x-rays were normal. X-rays are not always certain, and some fractures are hard to see and may not show up right away. Also, your x-ray may look like you have a fracture, even though you do not. It is important to follow-up with your regular doctor. Stretching: If your injury was to your arm or shoulder and your doctor put you in a sling or an immobilizer, it is important that you take off your immobilizer within 3 days and stretch/move your shoulder, unless your doctor specifically tells you to not move your shoulder. This is to prevent further injury such as a ???frozen shoulder?? . If you were given a prescription for [...] call or return to the Emergency Department. Opioid Medication Information Pain medications are among the most commonly prescribed medicines, so we are including this information for all our patients. If you did not receive pain medication or get a prescription for pain medicine, you can ignore it. You may have been given a prescription for an opioid (narcotic) pain medicine and/or have received apain medicine while here in the Emergency Department. These medicines can make you drowsy or impaired. You must not drive, operate dangerous equipment, or engage in any other dangerous activities whiletaking these medications. If you drive while taking these medications, you could be arrested for DUI, or driving under the influence. Do not drink any alcohol while you are taking these medications. Opioid pain medications can cause addiction. If you have a history of chemical dependency of any type, you are at a higher risk of becoming addicted to pain medications. Only take these prescribed medications to treat your pain when all other options have been tried. Take it for as short a time and asfew doses as possible. Store your pain pills in a secure place, as they are frequently stolen and provide a dangerous opportunity for children or visitors in your house to start abusing these powerful medications. We will not replace any lost or stolen medicine. As soon as your pain is better, you should flush all your remaining medication. Many prescription pain medications contain Tylenol?? (acetaminophen), including Vicodin??, Tylenol #3??, Newport??, Lortab??, and Percocet??. You should not take any extra pills of Tylenol?? if you are using these prescription medications or you can get very sick. Do not ever take more than 3000 mg of acetaminophen in any 24 hour period. All opioids tend to cause constipation. Drink plenty of water and eat foods that have a lot of fiber, such as fruits, vegetables, prune juice, apple juice and high fiber cereal. Take a laxative if you don???t move your bowels at least every other day. Miralax??, Milk of Magnesia, Colace??, or Senna?? can be used to keep you regular. Remember that you can always come back to the Emergency Department if you are not able to see your regular doctor in the amount of time listed above, if you get any new symptoms, or if there is anything that worries you. UNT EXECUTIVE SALES REPRESENTATIVE AttachmentsThe following attachments cannot be sent through Care Everywhere. HERNIATED INTERVERTEBRAL DISC (TUNISIAN)documented in this encounter Medications at Time of Discharge Medication Sig Dispensed Refills Start Date End Date EPINEPHrine (EPIPEN) Inject 0.3 mg into 0 0.3 MG/0.3ML injection the muscle once as needed. cyclobenzaprine Take 1 tablet (10 mg) 20 tablet 0 4 06/01/2014 (FLEXERIL) 10 MG tablet by mouth 3 times daily as needed for muscle spasms ACCU-CHEK MULTICLIX test twice daily. 0 1 08/17/2018 [facility] Albuterol Sulfate Inhale 2 puffs into 0 1 10/10/2017 (VENTOLIN HFA) 108 (90 the lungs 4 times BASE) MCG/ACT AERS daily as needed. armodafinil (NUVIGIL) Take 250 mg by mouth 0 02/19/2015 250 MG TABS every morning. busPIRone (BUSPAR) 5 MG Take 5 mg by mouth 0 08/17/2018 tablet daily cetirizine (ZYRTEC) 10 Take 1 tablet by 90 tablet 3 012 08/17/2018 MG tabletIndications: mouth daily as Asthma, Hives needed. For hives Desvenlafaxine Take 1 tablet by 0 12/2014 Succinate (PRISTIQ) 100 mouth daily. MG TB24 24 hr tablet fexofenadine (JOSSY) Take 1 tablet by 90 tablet 3 012 05/26/2015 180 MG mouth daily as tabletIndications: needed. For hives Hives, Asthma fluticasone-salmeterol Inhale 1 puff into 0 08/17/2018 (ADVAIR DISKUS) 500-50 the lungs every 12 MCG/DOSE diskus inhaler hours. furosemide (LASIX) 20 Take 1 tablet by 0 08/17/2018 MG tablet mouth 2 times daily. glucose blood test Test twice daily. 1 Box 12 011 08/17/2018 strips (ACCU-CHEK COMPACT TEST DRUM) strip ibuprofen Take 3 tablets (600 20 tablet 0 05/26/201408/17 (ADVIL,MOTRIN) 200 MG mg) by mouth every 8 tablet hours as needed for mild pain insulin detemir Take 6 units daily, 0 02/19/2015 (LEVEMIR FLEXPEN) 100 and go up 2 units UNIT/ML every day until injectionIndications: morning sugar is 150. Hypothyroidism Insulin Pen Needle (B-D 1 Box See Admin 1 Box 11 012 04/01/2015 U/F PEN NEEDLE) Instructions. Use needleIndications: DM once a day. type 2 (diabetes mellitus, type 2) (H) levocetirizine (XYZAL) Take 5 mg by mouth 0 04/1008/17/2018 5 MG tabletIndications: Type 2 diabetes mellitus without complication (H), Hypothyroidism, unspecified hypothyroidism type levothyroxine Take 1 tablet by 90 tablet 3 04/04/201202/19 (SYNTHROID, LEVOTHROID) mouth daily. DISPENSE 25 MCG LEVOTHYROXINE ONLY tabletIndications: Subclinical hypothyroidism liraglutide (VICTOZA) Inject 1.8 mg 1 Month 0 04/17/2012 02/19/2015 18 MG/3ML Subcutaneous daily. SOLNIndications: DM type 2 (diabetes mellitus, type 2) (H), Drug-induced obesity Memantine HCl (NAMENDA Take as directed. 0 04/01/2015 TITRATION KITTY) 5 (28)-10 (21) MG TABS MetFORmin (GLUCOPHAGE) Take 500 mg by mouth 0 08/16/2016 500 MG tablet 2 times daily (with meals). mometasone (NASONEX) 50 1 spray by Both 0 08/16/2018 MCG/ACT nasal spray Nostrils route every 12 hours. montelukast (SINGULAIR) Take 1 tablet by 0 08/17/2018 10 MG tablet mouth daily. omeprazole (PRILOSEC) Take 1 capsule by 90 capsule 3 012 06/30/2015 20 MG mouth daily. capsuleIndications: Asthma Potassium Gluconate 595 Take 1 tablet by 0 201008/17/2018 MG TABS mouth 2 times daily. predniSONE (DELTASONE) Patient takes burst 0 10/18/2014 20 MG tablet and then taper down. ropinirole (REQUIP) 0.5 Take 1 tablet by 0 05/26/2015 MG tablet mouth At Bedtime. documented as of this encounter ED Notes Manny Sow MD - 05/26/2014 10:03 PM CST History Chief Complaint: Head Injury HPI Becki Ridley is a 59 year old female who presents with head injury. She explains that a couple hours prior she was changing the washer fluid of her car. She believes she correctly propped the hicks up, but while she was leaning over her engine, the hicks fell down on her head, and pushed her into the engine. She reports pain and swelling on the right side of her forehead, as well as numbness on the back of her scalp that radiates forwards to the right eye. She also reports pain in her back, right shoulder, and right arm that feels like the muscle is ripping away from the bone. She denies loss of consciousness. She went into a coffee shop immediately afterwards to ice her head, and then went home. S xavier then, she has been experiencing headache, nausea, and confusion. She has no history of migraines. She voices no further concerns at this time. Allergies: Cipro Codeine Sulfate Vicodin Darvocet Medications: Victoza Levothyroxine Insulin Buspar Prilosec Zyrtec Allergra Deltasone Pristiq Namenda Titration Kitty Nasonex Requip Singulair Epipen Advair Lasix Albuterol Metformin Nuvigil Potassium Gluconate IBU Past Medical History: HTN Asthma Arthritis Restrictive lung disease Angioedema Sleep Apnea Restless leg syndrome Depression VILLAREAL Lower extremity edema Diabetes mellitus Hypothyroidism Blood transfusion Uticaria Past Surgical History: Colonoscopy Liver biopsy; 2010 Family / Social History: Carmen thyroiditis Depression Anxiety Dementia HTN Cancer Marital Status: [4] Social History: The patient denies tobacco or alcohol use. Review of Systems Gastrointestinal: Positive for nausea. Musculoskeletal: Positive for back pain. Positive for right arm pain. Positive for right shoulder pain. Neurological: Positive for numbness and headaches. Negative for syncope. Psychiatric/Behavioral: Positive for confusion. All other systems reviewed and are negative. Physical Exam First Vitals: BP: 124/74 mmHg Heart Rate: 83 Temp: 97.9 ??F (36.6 ??C) Resp: 20 Height: 160 cm (5' 3) Weight: 89.359 kg (197 lb) SpO2: 98 % Physical Exam Constitutional: Oriented to person, place, and time. Appears well-developed. Minor distress secondary to pain. HENT: Head: Normocephalic. 3 cm right frontal contusion. Mouth/Throat: Oropharynx is clear and moist. Eyes: EOM are normal. Pupils are equal, round, and reactive to light. Ears: TMs clear bilaterally. Neck: Neck supple. Cardiovascular: Normal rate, regular rhythm and normal heart sounds. Exam reveals no gallop and no friction rub. No murmur heard. Pulmonary/Chest: Effort normal and breath sounds normal. No respiratory distress. No wheezes. No rales. Abdominal: Soft. No distension. No tenderness. No rebound and no guarding. Musculoskeletal: Slight cervical thoracic tenderness to palpation, with no step off. Slight tenderness to right shoulder, with full range of motion. 2+ distal pulses. Neurological: Alert and oriented to person, place, and time. Moves all 4 extremities spontaneously GCS 15. Cranial nerves 2-12 grossly normal. No meningeal signs. No ataxia. 5/5 strength and sensation intact to light touch in all 4 extremities. Skin: No rash noted. No pallor. Ecchymosis to right forehead. No abrasions. Emergency Department Course Imaging: Radiographic findings were communicated with the patient and family who voiced understanding of the findings. CT Cervical spine w/o contrast: 1. Small left paramedian disc protrusion at C5- C6 causing mild to moderate central canal stenosis. 2. No evidence for fracture. As per radiology. Head CT w/o contrast: Negative brain CT without contrast. As per radiology. Shoulder XR, G/E 3 views, right: Negative exam. As per radiology. Thoracic spine XR, 3 views: No fractures or dislocations. As per radiology. Interventions: IBU, 600 mg PO Emergency Department Course: Nursing notes and vitals reviewed. I performed an exam of the patient as documented above. GCS 15. The patient was sent for a CT Cervical spine w/o contrast, Head CT w/o contrast, Shoulder XR, G?E 3 views, Right, and Thoracic spine XR 3 views while in the emergency department, findings above. 10:58 PM I rechecked the patient. Findings and plan explained to the Patient and daughter. Patient discharged home with instructions regarding supportive care, medications, and reasons to return. The importance of close follow-up was reviewed. The patient was prescribed Motrin and Flexeril. Impression & Plan Medical Decision Making: Becki Ridley is a 59 year old female who came in complaining of head injury after a hicks feel on top of her head. She is complaining of headache, neck pain, right shoulder pain, and thoracic back pain. I did end up getting a CT of her head, cervical spine, and thoracic spine, as well as x-ray of hershoulder to evaluate for fractures and intracranial hemorrhage; this does appear negative. She does have incidental finding of disk protrusion causing stenosis. I do believe this is a chronic finding, especially as it is on the left and her symptoms are on the right. She has been made aware of these findings and is told to follow up with her primary doctor with this. I do believe she is otherwise safe and appropriate for discharge. She has no weakness, numbness, or loss of control of bladder or bowel; I have no concerns for neurologic compromise. She is told to follow up with her primary doctor andto return for the above symptoms and/or any new or worsening symptoms or concerns. Follow up with PMD. Diagnosis: 1. (920) Head contusion, initial encounter (primary encounter diagnosis). 2. (723.1) Acute neck pain. 3. (923.00) Shoulder contusion, right, initial encounter. 4. (724.5) Acute back pain. 5. (722.0) Displacement of cervical intervertebral disc without myelopathy. Plan: Follow up with PMD. Marlene Meyers 05/26/2014 [facility] EMERGENCY DEPARTMENT I, Marlene Meyers, am serving as a scribe on 05/26/2014 at 10:03 PM to personally document services performed by Dr. Sow based on my observations and the provider's statements to me. Manny Sow MD 05/27/14 1054 UNT EXECUTIVE SALES REPRESENTATIVE Kenny Nieto RN - 05/26/2014 9:59 PM CST Patient hit their head when her car hicks fell onto her no L.O.C., but dazed Nausea, but NO vomiting.Patient alert and oriented to place, self, time, date and family. Patient c/o headache bach and arm pain. Patient stated that she has a little confusion. UNT EXECUTIVE SALES REPRESENTATIVE documented in this encounter Plan of Treatment Upcoming Encounters Date Type Specialty Care Team Description 05/19/2022 Office Visit ENT Dima Hidalgo M D [address], [place] [phone] (Wo rk) 08/02/2022 Office Visit Neurology Yair Campos MD [address], [place] [phone] (Wo rk) documented as of this encounter Procedures Procedure Name Priority Date/Time Associated Diagnosis Comme nts XR THORACIC SPINE 3 STAT 05/26/2014 10:44 PM R esults for this VIEWS ACCOUNT EXECUTIVE SALES REPRESENTATIVE procedure are i n the results section. XR SHOULDER RIGHT STAT 05/26/2014 10:44 PM Res ults for this G/E 3 VIEWS ACCOUNT EXECUTIVE SALES REPRESENTATIVE procedure are i n the results section. CT CERVICAL SPINE STAT 05/26/2014 10:30 PM Res ults for this W/O CONTRAST ACCOUNT EXECUTIVE SALES REPRESENTATIVE procedure are i n the results section. CT HEAD W/O STAT 05/26/2014 10:30 PM Results for this CONTRAST ACCOUNT EXECUTIVE SALES REPRESENTATIVE procedure are i n the results section. documented in this encounter Results Thoracic spine XR, 3 views (05/26/2014 10:44 PM ACCOUNT EXECUTIVE SALES REPRESENTATIVE) Anatomical Region Laterality Modality Spine Computed Radiography Specimen (Source) Anatomical Location Collection Method / Collectio n Time Received Time / Laterality Volume Impressions 05/26/2014 10:47 PM ACCOUNT EXECUTIVE SALES REPRESENTATIVE IMPRESSION: No fractures or dislocations. ?? DENIA COOPER MD Narrative 05/26/2014 10:47 PM ACCOUNT EXECUTIVE SALES REPRESENTATIVE XR THORACIC SPINE 3 VW ?? 05/26/2014 10:44 PM HISTORY: Injury. COMPARISON: None. FINDINGS: ??No acute fractures or disloc ations. Alignment is anatomic. Soft tissues are normal. Procedure Note Denia Cooper MD - 05/26/2014Forma tting of this note might be different from the original. XR THORACIC SPINE 3 VW 05/26/2014 10:44 PM HISTORY: Injury. COMPARISON: None. FINDINGS: No acute fractures or dislocat ions. Alignment is anatomic. Soft tissues are normal. IMPRESSION IMPRESSION: No fractures or dislocations . DENIA COOPER MD Manny Sow MD IMG DIAGNOSTIC IMAGING ORDER CHAI Shoulder XR, G/E 3 views, right (05/26/2014 10:44 PM ACCOUNT EXECUTIVE SALES REPRESENTATIVE) Anatomical Region Laterality Modality Right Shoulder Right Computed Radiography Specimen (Source) Anatomical Location Collection Method / Collectio n Time Received Time / Laterality Volume Impressions 05/26/2014 10:54 PM ACCOUNT EXECUTIVE SALES REPRESENTATIVE IMPRESSION: Negative exam. UMESH CRANE MD Narrative 05/26/2014 10:54 PM ACCOUNT EXECUTIVE SALES REPRESENTATIVE RIGHT SHOULDER THREE OR MORE VIEWS ??05/26/2014 ??10:44 PM HISTORY: Injury. Procedure Note Umesh Crane MD - 05/26/2014Form atting of this note might be different from the original. RIGHT SHOULDER THREE OR MORE VIEWS 05/26 10:44 PM HISTORY: Injury. IMPRESSION IMPRESSION: Negative exam. UMESH CRANE MD Manny Sow MD IM DIAGNOSTIC IMAGING ORDER CHAI CT Cervical Spine w/o Contrast (05/26/2014 10:30 PM ACCOUNT EXECUTIVE SALES REPRESENTATIVE) Anatomical Region Laterality Modality Spine, SUBRAD CT NEURO, SUBRAD CT NEURO, UMP CT SPINE Computed Tomography Specimen (Source) Anatomical Location Collection Method / Collectio n Time Received Time / Laterality Volume Impressions 05/26/2014 10:54 PM ACCOUNT EXECUTIVE SALES REPRESENTATIVE IMPRESSION: 1. Small left paramedian disc protrusion at C5-C6 causing mild to moderate central canal stenosis. 2. No evidence for fracture. UMESH CRANE MD Narrative 05/26/2014 10:54 PM ACCOUNT EXECUTIVE SALES REPRESENTATIVE CT CERVICAL SPINE WITHOUT CONTRAST ?? 05/26/2014 ?? 10:30 PM HISTORY: Injury. TECHNIQUE: Axial images were obtained th rough the cervical spine without contrast. Coronal and sagittal r econstructions were also acquired. FINDINGS: Sagittal reconstructions demon strate mild gentle lower cervical kyphosis. Alignment is otherwis e normal. There is some mild multilevel degenerative disc disease. Th ere is a small left paramedian disc protrusion at C5-C6 causing some mi ld to moderate central canal stenosis. There is no evidence for fract ure. Procedure Note Umesh Crane MD - 05/26/2014Form atting of this note might be different from the original. CT CERVICAL SPINE WITHOUT CONTRAST 05/26 10:30 PM HISTORY: Injury. TECHNIQUE: Axial images were obtained th rough the cervical spine without contrast. Coronal and sagittal r econstructions were also acquired. FINDINGS: Sagittal reconstructions demon strate mild gentle lower cervical kyphosis. Alignment is otherwis e normal. There is some mild multilevel degenerative disc disease. Th ere is a small left paramedian disc protrusion at C5-C6 causing some mi ld to moderate central canal stenosis. There is no evidence for fract ure. IMPRESSION IMPRESSION: 1. Small left paramedian disc protrusion at C5-C6 causing mild to moderate central canal stenosis. 2. No evidence for fracture. UMESH CRANE MD Manny Sow MD IMG CT ORDERABLES Head CT w/o contrast (05/26/2014 10:30 PM ACCOUNT EXECUTIVE SALES REPRESENTATIVE) Anatomical Region Laterality Modality Head, SUBRAD CT NEURO, SUBRAD CT NEURO, P CT NEURO Computed Tomography Specimen (Source) Anatomical Location Collection Method / Collectio n Time Received Time / Laterality Volume Impressions 05/26/2014 10:54 PM ACCOUNT EXECUTIVE SALES REPRESENTATIVE IMPRESSION: Negative brain CT without contrast. UMESH CRANE MD Narrative 05/26/2014 10:54 PM ACCOUNT EXECUTIVE SALES REPRESENTATIVE CT HEAD WITHOUT CONTRAST ?? 05/26/2014 ??10:30 PM HISTORY: Injury. TECHNIQUE: Thin section axial images wit hout contrast. FINDINGS: The ventricles are normal in s ize, shape and configuration. The brain parenchyma and subarachnoid sp aces are normal. There is no evidence for intracranial hemorrhage, ma ss effect, skull fracture or acute infarct. Procedure Note Umesh Crane MD - 05/26/2014Form atting of this note might be different from the original. CT HEAD WITHOUT CONTRAST 05/26/2014 10:3 0 PM HISTORY: Injury. TECHNIQUE: Thin section axial images wit hout contrast. FINDINGS: The ventricles are normal in s ize, shape and configuration. The brain parenchyma and subarachnoid sp aces are normal. There is no evidence for intracranial hemorrhage, ma ss effect, skull fracture or acute infarct. IMPRESSION IMPRESSION: Negative brain CT without co ntrast. UMESH CRANE MD Manny Sow MD IMG CT ORDERABLES documented in this encounter Visit Diagnoses Diagnosis Head contusion, initial encounter - Prim mi Acute neck pain Cervicalgia Shoulder contusion, right, initial encou nter Acute back pain Backache, unspecified Displacement of cervical intervertebral disc without myelopathy documented in this encounter Administered Medications Inactive Administered Medications - up to 3 most recent administrations Medication Order MAR Action Action Date Dose Rate Site ibuprofen (ADVIL,MOTRIN) tablet Given 05/26/2014 11:11 PM ACCOUNT EXECUTIVE SALES REPRESENTATIVE 60 0 mg 600 mg 600 mg, Oral, ONCE, On Mon05/26/14 at 2253, For 1 dose documented in this encounter Active and Recently Administered Medications Times are shown in ACCOUNT EXECUTIVE SALES REPRESENTATIVE. Scheduled Medication Order 05/24/2014 05/25/2014 05/26/2014 ibuprofen (ADVIL,MOTRIN) tablet 600 mg (COMPLETED) 2311 (Given - Provider: Janiya Silva RN) 600 mg, Oral, ONCE, On Mon05/26/14 at 2253, For 1 dose documented in this encounter Care Teams Retail Event And Sales Assistant Relationship Specialty Start Date End Date Haroldo Valentino MD PCP - General Internal Medicine 05/26/14 10/17/[address] [address] documented as of this encounter
--- OUTSIDE RECORDS SUMMARY | 2022-05-09 11:07 | XMS_ITS | Encounter Summary ---
:1955 Author Organization [place] Address [facility] 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 I have filled the Rx. ----- Message ----- From: Kalyn Duncan RN Sent: 04/18/2012 11:29 AM To: Alma Vilchis MD Subject: RE: refill Victoza? Pt contacted, she would like diabetes care here, she is now scheduled to see Raegan 05/14/12 out ofVictoza and would need refill to get her to appt ----- Message ----- From: Alma Vilchis MD Sent: 04/18/2012 11:18 AM To: Kalyn Duncan RN Subject: RE: refill Victoza? No. I am not willing to take this on unless this patient is willing to reschedule to be seen eitherby me or by Ninfa or Raegan for DM follow up. She would need next follow up within 3 months. This drug was not prescribed by me, it was apparent she needed DM education when I saw her. She hasbeen there but now I see she has no follow up visits on the system. Her compliance has been poor even relative to the thyroid. She did not follow up on the thyroid related instructions I gave her in 2010. Her medications should be managed by someone she is seeing regularly. The fact she saw me for her thyroid is not sufficient reason for me to prescribe the Victoza. See what Becki wants to do -- but she needs to make some commitments for better follow up if I amto prescribe Victoza. Alma Vilchis ----- Message ----- From: Kalyn Duncan RN Sent: 04/17/2012 3:41 PM To: Alma Vilchis MD Subject: FW: refill Victoza? Wt management requesting refill, sent to list ( I wrote diabetes ed was asking but it's really Maryin wt management) ----- Message ----- From: Minnie Rico RN Sent: 04/17/2012 3:10 PM To: Kalyn Duncan RN Subject: refill Victoza? Fabian, Is Dr Vilchis willing to take over on Becki's Victoza Rx? It looks like she saw patient just at the end of March. Pharmacy is the [facility] in [place] We have not seen her in medical weight mgmt since August of this year, doubt she will return to see us. Thanks Minnie documented in this encounter Plan of Treatment Upcoming Encounters Date Type Specialty Care Team Description 05/19/2022 Office Visit E[facility] [address] [facility] [address] [place] [place] [phone] (Wo rk) 08/02/2022 Office Visit Neurology Yair Campos MD [address] [facility] [address] [place], [place] [phone] (Wo rk) documented as of this encounter Visit Diagnoses Not on filedocumented in this encounter Care Teams Marine Steamfitter Relationship Specialty Start Date End Date Aleks Lopez MD PCP - General 10/04/11 05/25/14 documented as of this encounter
--- OUTSIDE RECORDS SUMMARY | 2022-05-09 11:07 | XMS_ITS | Encounter Summary ---
:1955 Author Organization [place] Address Formerly [facility]0 [facility] [place] [address] Care Team Providers Name Role Phone Aleks Lopez MD Primary Care Provider Reason for Visit Reason Comments Hives chronically, in throat needs med refill Encounter Details Date Type Department Care Team Description 10/18/2014 Emergency [facility] Jermain Paris MD Urticaria Emergency Department [address] [facility] [address] [place] [address] [place] [id number] [phone] Social History Tobacco Use Types Packs/Day Years Used Date Smoking Tobacco: Never Smokeless Tobacco: Never Alcohol Use Standard Drinks/Week Comments No 0 (1 standard drink = 0.6 oz pure alcoho l) Sex Assigned at Date Recorded Female 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 Please make an appointment to follow up with [facility] Next week Hives (Adult) Hives are pink or red bumps on the skin. These bumps are also known as ???wheals.?? The bumps can itch, burn, or sting. Hives can occur anywhere on the body. They vary in size and shape and can form in clusters. Individual hives can appear and go away quickly. New hives may develop as old ones fade. Hives are common and usually harmless. Occasionally hives are a sign of a serious allergy. Hives are often caused by an allergic reaction. It may be an allergic reaction to foods such as fruit, shellfish, chocolate, nuts, or tomatoes. It may be a reaction to pollens, animal fur, or mold spores. Medications, chemicals, and insect bites can also cause hives. And hives can be caused by hot sunor cold air. The cause of hives can be difficult to find. You may be given medications to relieve swelling and itching. Follow all instructions when using these medications. The hives will fade in a few days, but can last up to 2 weeks. Home care Follow these tips: ?? Try to find the cause of the hives and eliminate it. Discuss possible causes with your health care provider. Future reactions to the same allergen may be worse. ?? Don???t scratch the hives. Scratching will delay healing. To reduce itching, apply cool, wet compresses to the skin. ?? Dress in soft, loose cotton clothing. ?? Don???t bathe in hot water. This can make the itching worse. ?? Apply an ice pack or cool pack wrapped in a thin towel to your skin. This will help reduce redness and itching. ?? Try a topical spray or cream with benzocaine to help reduce itching. ?? Use oral diphenhydramine to help reduce itching. This is an antihistamine you can buy at [employer] It can make you sleepy, so use lower doses during the daytime. Or you can use loratadine. This is an antihistamine that will not make you sleepy. Don???t use diphenhydramine if you haveglaucoma or have trouble urinating because of an enlarged prostate. Follow-up care Follow up with your health care provider if your symptoms don't get better in 2 days. Ask your provider about allergy testing if you have had a severe reaction, or have had several episodes of hives. He or she can use the allergy testing to find out what you are allergic to. When to seek medical advice Call your health care provider right away??if any of these occur: ?? Fever of 100.4??F (38.0??C) or higher ?? Swelling of the face, throat, or tongue ?? Trouble breathing or swallowing ?? Redness, swelling, or pain ?? Foul-smelling fluid coming from the rash ?? Dizziness, weakness, or fainting ?? [id number] [employer]. [address] [place] [address]. All rights reserved. This information is not intended as a substitute for professional medical care. Always follow your healthcare professional's instructions. documented in this encounter Medications at Time of Discharge Medication Sig Dispensed Refills Start Date End Date EPINEPHrine (EPIPEN) Inject 0.3 mg into 0 0.3 MG/0.3ML injection the muscle once as needed. predniSONE (DELTASONE) Take 4 tablets daily 32 tablet 0 10/201410/28/2014 10 MG tablet for 5 days, take 2 tablets daily for 3 days, take 1 tablet daily for 3 days, take half a tablet for 3 days. ACCU-CHEK MULTICLIX test twice daily. 0 1 08/17/2018 [facility] Albuterol Sulfate Inhale 2 puffs into 0 [...] 201008/17/2018 MG TABS mouth 2 times daily. ropinirole (REQUIP) 0.5 Take 1 tablet by 0 05/26/2015 MG tablet mouth At Bedtime. documented as of this encounter ED Notes Demarco Paris MD - 10/18/2014 12:26 AM CDT History Chief Complaint Patient presents with ??? Hives chronically, in throat needs med refill HPI Becki Ridley is a 59 year old female who presents with hives. The patient reports that she has hadchronic urticaria for the past 5 years, and has been followed by [facility] for this. She reports that she takes several medications for this, including hydroxyzine and Zyrtec. She states that she has constant hives, however, she also has flare-ups of increased hives intermittently. She reports that she started having a flare-up of hives today, and despite taking her medications, they have beenpersistent, prompting her arrival here to the emergency department. She states that the hives started on her lower extremities, moved up her body, and now she feels her throat is affected. She denies shortness of breath or difficulty breathing currently. The patient reports that she generally takes a steroid taper when she has these flare-ups, but was unable to get a hold of her primary physician today to get this prescription. She reports that she has an EpiPen, but has not needed to use this. She denies any history of intubation as a result of her allergic reaction. She notes that she recently started Xoair injections. I have reviewed the Medications, Allergies, Past Medical and Surgical History, and Social History inthe PDV system. Past Medical History Diagnosis Date ??? Hypertension ??? Asthma ??? Arthritis ??? Restrictive lung disease ??? Angioedema ??? Sleep apnea ??? Restless legs syndrome ??? Depression ??? VILLAREAL (nonalcoholic steatohepatitis) ??? Lower extremity edema ??? Diabetes mellitus sometimes I do ??? Blood transfusion ??? Thyroid disease Past Surgical History Procedure Laterality Date ??? Colonoscopy age 52 [place] results ??? Biopsy 2011 liver Family History Problem Relation Age of Onset ??? Thyroid Daughter patric thyroiditis ??? Depression Daughter ??? Anxiety Daughter ??? Depression Mother ??? Dementia Mother ??? Hypertension Mother ??? Cancer Mother ??? Depression Father ??? Hypertension Father ??? Depression Maternal Grandmother ??? Dementia Maternal Aunt ??? Dementia Maternal Aunt ??? Dementia Maternal Aunt ??? Dementia Maternal Aunt History Substance Use Topics ??? Smoking status: Never Smoker ??? Smokeless tobacco: Never Used ??? Alcohol Use: No No current facility-administered medications for this encounter. Current Outpatient Prescriptions Medication ??? predniSONE (DELTASONE) 10 MG tablet ??? busPIRone (BUSPAR) 5 MG tablet ??? Memantine HCl (NAMENDA TITRATION KITTY) 5 (28)-10 (21) MG TABS ??? mometasone (NASONEX) 50 MCG/ACT nasal spray ??? montelukast (SINGULAIR) 10 MG tablet ??? glucose blood test strips (ACCU-CHEK COMPACT TEST DRUM) strip ??? ACCU-CHEK MULTICLIX LANCETS MISC ??? EPINEPHrine (EPIPEN 2-KITTY) 0.3 MG/0.3ML injection ??? fluticasone-salmeterol (ADVAIR DISKUS) 500-50 MCG/DOSE diskus inhaler ??? Albuterol Sulfate (VENTOLIN HFA) 108 (90 BASE) MCG/ACT AERS ??? MetFORmin (GLUCOPHAGE) 500 MG tablet ??? armodafinil (NUVIGIL) 250 MG TABS ??? Potassium Gluconate 595 MG TABS ??? ibuprofen (ADVIL,MOTRIN) 200 MG tablet ??? liraglutide (VICTOZA) 18 MG/3ML SOLN ??? levothyroxine (SYNTHROID, LEVOTHROID) 25 MCG tablet ??? insulin detemir (LEVEMIR FLEXPEN) 100 UNIT/ML injection ??? omeprazole (PRILOSEC) 20 MG capsule ??? Insulin Pen Needle (B-D U/F PEN NEEDLE) needle ??? cetirizine (ZYRTEC) 10 MG tablet ??? fexofenadine (JOSSY) 180 MG tablet ??? Desvenlafaxine Succinate (PRISTIQ) 100 MG TB24 24 hr tablet ??? ropinirole (REQUIP) 0.5 MG tablet ??? furosemide (LASIX) 20 MG tablet Allergies Allergen Reactions ??? Cipro [Quinolones] Itching and Difficulty breathing ??? Codeine Sulfate Other (See Comments) Blacked out ??? Vicodin [Hydrocodone-Acetaminophen] Itching and Difficulty breathing ??? Darvocet [Propoxyphene N-Apap] Itching Review of Systems Constitutional: Negative for fever. Respiratory: Negative for shortness of breath. Cardiovascular: Negative for chest pain. Gastrointestinal: Negative for abdominal pain. Skin: Positive for rash (hives). All other systems reviewed and are negative. Physical Exam BP: 147/94 mmHg Pulse: 105 Temp: 97.7 ??F (36.5 ??C) Resp: 16 SpO2: 93 % Physical Exam Vital Signs and Nursing Notes Reviewed. General: NAD HEENT: Oropharynx clear. No obvious signs of trauma. PERRL. EOMI Neck: Supple. No lymphadenopathy. Cardiac: RRR. No murmurs, rubs or gallops Lungs: Clear bilaterally. Normal respiratory rate. Abdomen: Soft, Nontender, no rebound or guarding. Back: No CVA tenderness. Skin: Urticaria over trunk, arms and legs. No diaphoresis Extremities: No cyanosis, clubbing, or edema. Neurological: CN II-XII intact, Strength intact, Sensation intact, No pronator drift, Normal gait. Pulse: Symmetric in bilateral upper and lower extremities. ED Course Procedures 12:27 AM The patient was seen and examined by Dr. Paris in Room 19. Critical Care time: none CMS Diagnoses: None Labs Ordered and Resulted from Time of ED Arrival Up to the Time of Departure from the ED - No data to display Assessments & Plan (with Medical Decision Making) 59 year old with hives. No signs of airway compromise. She is very taken a significant amount of antihistamines. We'll start her on prednisone as she's been in the past. 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 She does have an EpiPen at home. She will return for any worsening symptoms. I have reviewed the nursing notes. I have reviewed the findings, diagnosis, plan and need for follow up with the patient. Discharge Medication List as of 10/18/2014 12:48 AM START taking these medications Details predniSONE (DELTASONE) 10 MG tablet Take 4 tablets daily for 5 days, take 2 tablets daily for 3 days, take 1 tablet daily for 3 days, take half a tablet for 3 days., Disp-32 tablet, R-0, Normal Final diagnoses: Urticaria IDesmond, am serving as a trained medical records tech to document services personally performed by Demarco Paris MD, based on the provider's statements to me. IDemarco MD, was physically present and have reviewed and verified the accuracy of this note documented by Desmond Kraus. 10/17/2014 [facility] [place], EMERGENCY DEPARTMENT Demarco Paris MD 10/18/14 0124 Melany Jones RN - 10/18/2014 12:08 AM CDT Patient states she takes prednisone, Xoair injections at [facility] monthly for chronic hives--unable to get prednisone refilled today--C/O worsening itching and that she feels it is in her throat as well. Denies SOB, Wheezing or respiratory complaints. documented in this encounter Plan of Treatment Upcoming Encounters Date Type Specialty Care Team Description 05/19/2022 Office Visit ENT Dima Hidalgo M D [address] [facility] 109 (Wo rk) 08/02/2022 Office Visit Neurology Yair Campos MD [address] [facility] [place] [address] (Wo rk) documented as of this encounter Visit Diagnoses Diagnosis Urticaria Urticaria, unspecified documented in this encounter Care Teams Medical Chief Technician Relationship Specialty Start Date End Date Aleks Lopez MD PCP - General Family Practice 10/18/14 11/01/16 documented as of this encounter
--- OUTSIDE RECORDS SUMMARY | 2022-05-09 11:07 | XMS_ITS | Encounter Summary ---
:1955 Author Organization [place] Address [address] [facility] [place] [address] Care Team Providers Name Role Phone Aleks Lopez MD Primary Care Provider Reason for Visit (Routine) - Closed Specialty Diagnoses / Procedures Referred By Contact Refer red To Contact Cardiology Diagnoses ECHOCARD STRESS ECHO W/O CONTRAST Procedure Notes: chest pain Zz Sh Cardiology Img Procedures RADIOLOGY [address] [place] [address] Phone: Referral ID Status Reason Start Date Expiration Date Visits Requ ested Visits Authorized [id number] Closed 03/28/2013 03/28/2014 1 1 Encounter Details Date Type Department Care Team Description 03/29/2013 Hospital Encounter [place] Kayce Angel, Radiology - [facility] Heart MD Imaging [facility] [address] [place] [address] [place] [address] [place], [place] [phone] (Wo rk) Social History Tobacco Use Types Packs/Day Years Used Date Smoking Tobacco: Never Smokeless Tobacco: Never Alcohol Use Standard Drinks/Week Comments No 0 (1 standard drink = 0.6 oz pure alcoho l) Sex Assigned at Date Recorded 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 naproxen (NAPROSYN) 500 Take 1 tablet (500 10 tablet 0 03/1704/02/2013 MG tablet mg) by mouth 2 times daily (with meals) for 5 days ACCU-CHEK MULTICLIX test twice daily. 0 [...] (ACCU-CHEK COMPACT TEST DRUM) strip ibuprofen Take 400 mg by mouth 0 05/17 (ADVIL,MOTRIN) 200 MG every 4 hours as tablet needed. insulin detemir Take 6 units daily, 0 02/19/2015 (LEVEMIR FLEXPEN) 100 and go up 2 units UNIT/ML every day until injectionIndications: morning sugar is 150. Hypothyroidism Insulin Pen Needle (B-D 1 Box See Admin 1 Box 11 012 04/01/2015 U/F PEN NEEDLE) Instructions. Use needleIndications: DM once a day. type 2 (diabetes mellitus, type 2) (H) levothyroxine Take 1 tablet by 90 tablet [...] 0 05/26/2015 MG tablet mouth At Bedtime. tramadol (ULTRAM) 50 MG Take 1 tablet by 0 08/22/2013 tablet mouth 3 times daily as needed. documented as of this encounter Plan of Treatment Upcoming Encounters Date Type Specialty Care Team Description 05/19/2022 Office Visit ENT Dima Hidalgo M D [address] [facility] [place] [place] [address] (Sarah pino) 08/02/2022 Office Visit Neurology Yair Campos MD [address] [facility] [place], [place] [id number] (Sarah pino) documented as of this encounter Procedures Procedure Name Priority Date/Time Associated Diagnosis Comme [facility] ECHO STRESS TEST Routine 03/29/2013 1:04 PM Resul ts for this WITH DEFINITY CDT procedure are in the results section. documented in this encounter Results Echo stress test with definity (03/29/2013 1:04 PM CDT) [facility] Method Time Signature [facility] Interpretation Summary RESULTS The study was technically difficult. The EKG portion of this stress test was negative for i nducible ischemia (see echo results below). This was a normal stress echocardiogram . PatientHeight: 62 in PatientWeight: 205 lbs SystolicPressure: 140 mmHg DiastolicPressure: 82 mmHg HeartRate: 83 bpm BSA 1.9 m^2 Baseline Resting ECG is normal. The resting phase of the study was normal. Stress The patient exercised 6:30. The patient exhibited no chest pain during exercise. Exercise was stopped due to fatigue. A treadmill exercise test according to the David protocol wa s performed. Target Heart Rate was achieved. The EKG portion of this stress test was negative for i nducible ischemia (see echo results below). This was a normal stress echocardiogram. Left Ventricle The left ventricular ejection fraction is normal. Right Ventricle The right ventricle is not well visualized. Atria Normal left atrial size. Right atrial size is normal. Mitral Valve The mitral valve is normal in structure and function. Tricuspid Valve The tricuspid valve is not well visualized, but is grossly n ormal. Aortic Valve Normal tricuspid aortic valve. Procedure Stress Echo Complete. Contrast Definity. Stress Results Protocol: ??David Protocol w/ definity Target HR: 138 bpm ?Maximum Predicted HR: 1 62 bpm Stage ?Duration(mm:ss) ??HR(bpm) ?? BP ?DOSE ??Comment ? 03:00 ?123 ? 170/70 ? 03:00 ?146 ? 188/75 ? 00:30 ?160 ? / ? Frequent PVC's @ 6 min RECOVERY ? 06:00 ?91 ?135/83 ?RPP: 30,080 FAC: AVERAGE Stress Duration: 06:30 mm:ss ??Recovery Time: 06:00 mm:ss Maximum Stress HR: 160 bpm ?METS: 8 Interpreting Physician: ??Miky Viramontes, ??electronically signed on 03-29-2013 14:48:45 Anatomical Region Laterality Modality Echocardiography Specimen (Source) Anatomical Collection Method Collection Time Re ceived Time Location / / Volume Laterality 03/29/2013 1:04 PM CDT Kayce Shaw MD CV ECHO ORDERABLES documented in this encounter Visit Diagnoses Not on filedocumented in this encounter Care Teams Novelty Maker Relationship Specialty Start Date End Date Aleks Lopez MD PCP - General 10/04/11 05/25/14 documented as of this encounter
--- OUTSIDE RECORDS SUMMARY | 2022-05-09 11:07 | XMS_ITS | Encounter Summary ---
:1955 Author Organization [place] Address [facility] 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 ----- Message ----- From: Kalyn Duncan RN Sent: 03/21/2012 8:40 AM To: Med 6 Interpreter [facility] Subject: schedule Please contact pt and schedule return appt with Dr. Vilchis, thanks documented in this encounter Plan of Treatment Upcoming Encounters Date Type Specialty Care Team Description 05/19/2022 Office Visit ENT Dima Hidalgo M D [address] [place], [place] [address] (Wo rk) 08/02/2022 Office Visit Neurology Yair Campos MD [address] [place] [address] [place] [address] (Wo rk) documented as of this encounter Visit Diagnoses Not on filedocumented in this encounter Care Teams Vegetable Vendor Relationship Specialty Start Date End Date Aleks Lopez MD PCP - General 10/04/11 05/25/14 documented as of this encounter
--- OUTSIDE RECORDS SUMMARY | 2022-05-09 11:07 | XMS_ITS | Encounter Summary ---
:1955 Author Organization [place] Address [address] [facility] [place] [address] Care Team Providers Name Role Phone Aleks Lopez MD Primary Care Provider Chelsy Bynum MD, [place] Primary Care Provider Aleks Lopez MD Primary Care Provider Tali Vilchis MD Unavailable Anat Fuller MD Unavailable [phone] Vladislav Fuentes MD Unavailable [phone] Janny Hutton PA-C Unavailable [phone] Encounter Details Date Type Department Care Team Description 03/29/2013 Historic Results [facility] Heart Unknown, [facility] [address] [place] [address] Social History Tobacco Use Types Packs/Day Years Used Date Smoking Tobacco: Never Smokeless Tobacco: Never Alcohol Use Standard Drinks/Week Comments No 0 (1 standard drink = 0.6 oz pure alcoho l) Sex Assigned at Date Recorded 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 documented as of this encounter Plan of Treatment Upcoming Encounters Date Type Specialty Care Team Description 05/19/2022 Office Visit ENT Dima Hidalgo M D [address] [address] (Wo rk) 08/02/2022 Office Visit Neurology Yair Campos MD [address] [facility] [address] [place], [place] [phone] (Wo rk) documented as of this encounter Procedures Procedure Name Priority Date/Time Associated Diagnosis Comme nts ECHO CARDIAC - HIM SCAN 03/29/2013 12:00 AM CDT - ARCHIVE documented in this encounter Results ECHO CARDIAC - HIM SCAN - ARCHIVE (03/29/2013 12:00 AM CDT) Anatomical Region Laterality Modality Echocardiography Specimen (Source) Anatomical Location Collection Method / Collectio n Time Received Time / Laterality Volume 03/29/2013 Narrative This result has an attachment that is no t available. Provider Scan CV ECHO ORDERABLES documented in this encounter Visit Diagnoses Not on filedocumented in this encounter Care Teams Sheet Metal Worker Maintenance Relationship Specialty Start Date End Date Aleks Lopez MD PCP - General 10/04/11 05/25/14 Haroldo Valentino MD PCP - General Internal Medicine 05/26/14 10/17/[address] [address] Aleks Lopez MD PCP - General Family Practice 10/18/14 11/01/16 Tali Vilchis MD MD INTERNAL MEDICINE - 04/10/15 09/17/[address] [place] [address] ENDOCRINOLOGY, DIABETES [address] & METABOLISM [place], [place] [address] Anat Fuller MD Internal Medicine 04/10/1509/16 MD Renee [address] [place] [address] [address] [place], [place] [id number] Vladislav Fuentes MD Psychiatry 06/30/1506/30 MD Osito [address] [address] Janny Hutton, Physician Shop Worker Physician Shop Worker 06/1609/17/19 CARLA Funes [facility] [address] [place] [address] documented as of this encounter
--- OUTSIDE RECORDS SUMMARY | 2022-05-09 11:07 | XMS_ITS | Encounter Summary ---
:1955 Author Organization [facility] Address [address] [place] [address] Care Team Providers Name Role Phone Aleks Lopez MD Primary Care Provider Reason for Visit Reason Comments Chest Pain Started Monday. Went away. Now back Encounter Details Date Type Department Care Team Description 03/28/2013 Emergency [facility] Kayce Shaw Che st pain (Primary Dx); [facility] Diabetes mellitus (H); Dept [facility] Hypothyroidism; [address] [facility] (nonalcoholic steatohepatitis) [address] [id number] [place] [address] (Wo rk) Social History Tobacco Use Types Packs/Day Years Used Date Smoking Tobacco: Never Smokeless Tobacco: Never Alcohol Use Standard Drinks/Week Comments No 0 (1 standard drink = 0.6 oz pure alcoho l) Sex Assigned at Date Recorded Female 08/17/2018 10:39 PM MANAGER OF CASE documented as of this encounter Last Filed Vital Signs Vital Sign Reading Time Taken Comments Blood Pressure 110/70 03/28/2013 10:44 AM CDT Pulse 86 03/28/2013 5:14 AM CDT Temperature 36.9 ??C (98.4 ??F) 03/28/2013 10:44 AM CDT Respiratory Rate 18 03/28/2013 10:44 AM CDT Oxygen Saturation 95% 03/28/2013 10:44 AM CDT Inhaled Oxygen Concentration - - Weight 93.4 kg (206 lb) 03/28/2013 5:14 AM CDT Height - - Body Mass Index 37.68 04/06/2012 4:35 PM CDT documented in this encounter Discharge Instructions Discharge InstructionsKayce Shaw MD - 03/28/2013 10:36 AM CDT Ice to your chest wall 2 times a day and Naprosyn 2 times with food. Stress echo today or tomorrow. Set up an appointment in the clinic with your doctor after your stress test. Bring your lab and CT reports with you. You can discuss the cardiac calcifications with your doctor. Discharge Instructions Chest Pain You have been seen today for chest pain or discomfort. At this time, your doctor has found no signs that your chest pain is due to a serious or life-threatening condition, (or you have declined more testing and/or admission to the hospital). However, sometimes there is a serious problem that does not show up right away. Your evaluation today may not be complete and you may need further testing and evaluation. You need to follow-up with your regular doctor within 3 days. Return to the Emergency Department if: Your chest pain changes, gets worse, starts to happen more often, or comes with less activity. You are short of breath. You get very weak or tired. You pass out or faint. You have any new symptoms, like fever, cough, numb legs, or you cough up blood You have anything else that worries you. Until you follow-up with your regular doctor please do the following: Take one aspirin daily unless you have an allergy or are told not to by your doctor. If a stress test appointment has been made, go to the appointment. If you have questions, contact your regular doctor. If your doctor today has told you to follow-up with your regular doctor, it is very important that you make an appointment with your clinic and go to the appointment. If you do not follow-up with your primary doctor, it may result in missing an important development which could result in permanent injury or disability and/or lasting pain. If there is any problem keeping your appointment, call your doctor or return to the Emergency Department. Remember [...] test twice daily. 0 1 08/17/2018 [facility] MIS Albuterol Sulfate Inhale 2 puffs into 0 [...] as needed. documented as of this encounter ED Notes Yuli Gonzales RN - 04/03/2013 9:23 AM CDT Chart accessed for ED follow up call. Yuli Gonzales RN - 04/02/2013 10:45 AM CDT Chart accessed for ED follow up call. Yuli Gonzales RN - 04/01/2013 1:42 PM CDT Chart accessed for ED follow up call. Vincent Dunne RN - 03/28/2013 8:25 AM CDT Pt to CT per cart with auto technician mechanic. Anat Burris RN - 03/28/2013 7:11 AM CDT Report to MIKE Kaur Anat Burris RN - 03/28/2013 7:03 AM CDT Bear hugger placed on pt. Anat Burris RN - 03/28/2013 7:00 AM CDT Per , pt is going to give herself her own insulin and a diabetic breakfast tray was ordered for her. Anat Burris RN - 03/28/2013 6:55 AM CDT at bedside. Kayce Shaw MD - 03/28/2013 5:59 AM CDT History Chief Complaint: Chest Pain HPI Becki Ridley is a 58 year old female, with history of type II diabetes mellitus, hypothyroidism, and anxiety, who presents to the emergency department for evaluation of chest pain. The patient reports an onset of intermittent, sharp, localized, non-radiating pain to her upper left chest that she notes lasts a couple of seconds before resolve beginning approximately five days ago. She states that the frequency of these episodes has progressively decreased since the onset and is currently resolved. The patient presents to the emergency department today for an onset of central chest pain approximately 24 hours ago, noting that it radiates upwards into her throat, left shoulder, and down her left arm. She notes that the pain lasts a couple of seconds before resolves and radiates only on some occassions. She rates her current chest discomfort as a two out of ten in severity, states that there are no aggravating or alleviating factors to her pain, and describes it as dull and achy. She reports associated fluttering sensation in her central chest, pounding heart sensation, tingling to her head and feet, and tightness in her throat and tongue along with the episodes of pain. The patient denies shortness of breath, difficulty moving air, cough, leg swelling, nausea, vomiting, headache, dizziness,lightheadedness, fevers, chills, or diaphoresis. The patient voices no further concerns at this time. Cardiac Risk Factors: The patient has a personal history of diabetes mellitus and a paternal history of myocardial infarction. She denies a history of hypertension, hyperlipidemia, or smoking. PE Risk Factors: The patient has no personal or family history of PE, DVT, clotting disorders, or cancer. The patientdenies any recent long travel, prolonged immobilizations, recent surgeries, history of tobacco use, or recent trauma to the legs. The patient denies any current or recent pregnancies, use of control or other hormone medication. Allergies: Cipro Codeine Sulfate Vicodin Darvocet Medications: Liraglutide Levothyroxine Insulin Detemir Buspirone Omeprazole Cetirizine Fexofenadine Prednisone Desvenlafaxine Succinate Memantine Mometasone Ropinirole Montelukast Tramadol Epinephrine Fluticasone-Salmeterol Albuterol Sulfate Furosemide Metformin Armodafinil Potassium Gluconate Ibuprofen Past Medical History: Asthma Arthritis Restrictive lung disease Angioedema Sleep apnea Restless leg syndrome Depression Anxiety Nonalcoholic steatohepatitis Lower extremity edema Diabetes mellitus, Type II Blood transfusion Hypothyroidism Past Surgical History: Liver biopsy Family History: The patient has a family history of Carmen thyroiditis, depression, anxiety, dementia, and myocardial infarction. Social History: The patient presents to the emergency department with her daughter. She denies a history of tobacco use and does not use alcohol. Review of Systems Constitutional: Negative for fever, chills and diaphoresis. HENT: tightness in throat and tongue Respiratory: Negative for cough and shortness of breath. Cardiovascular: Positive for chest pain and palpitations. Negative for leg swelling. Gastrointestinal: Negative for nausea and vomiting. Neurological: Negative for dizziness, weakness, light-headedness, numbness and headaches. All other systems reviewed and are negative. Physical Exam First Vitals: BP: 144/89 mmHg Pulse: 86 Temp: 98.8 ??F (37.1 ??C) Resp: 18 Weight: 93.441 kg (206 lb) SpO2: 98 % Physical Exam Nursing note and vitals reviewed. Constitutional: She is oriented to person, place, and time. She appears well- developed and well-nourished. No distress. HENT: Head: Atraumatic. Nose: Nose normal. Mouth/Throat: Oropharynx is clear and moist. No oropharyngeal exudate. Eyes: Conjunctivae normal are normal. Pupils are equal, round, and reactive to light. Right eye exhibits no discharge. Left eye exhibits no discharge. No scleral icterus. Neck: Normal range of motion. Neck supple. No tracheal deviation present. Cardiovascular: Normal rate, regular rhythm, normal heart sounds and intact distal pulses. No murmur heard. Pulmonary/Chest: Effort normal and breath sounds normal. No stridor. No respiratory distress. She has no wheezes. She has no rales. She exhibits tenderness. Upper bilateral chest wall pain, left greater than right. Abdominal: Soft. She exhibits no distension and no mass. There is tenderness (mild). There is no rebound and no guarding. Obese. Musculoskeletal: Normal range of motion. She exhibits no edema and no tenderness. Lymphadenopathy: She has no cervical adenopathy. Neurological: She is alert and oriented to person, place, and time. No cranial nerve deficit. She exhibits normal muscle tone. Coordination normal. GCS eye subscore is 4. GCS verbal subscore is 5. GCS motor subscore is 6. Skin: Skin is warm and dry. No rash noted. She is not diaphoretic. No erythema. No pallor. Psychiatric: Her behavior is normal. Judgment and thought content normal. Emergency Department Course ECG: Indication: Chest Pain Time read: 05:55 Findings: Normal sinus rhythm. Normal ECG. Vent. rate 74 bpm, R-axes 24. Imaging: CT Chest (w/ IV contrast): 1. No evidence for pulmonary embolus. 2. Coronary calcifications. 3. Remainder of the scan is negative. Report per radiology. XR Chest: Negative. Per Dr. Shaw's preliminary read. Radiographic findings were communicated with the patient and family who voiced understanding of the findings. Laboratory: CBC: WNL (WBC 8.0, HGB 14.0, PLT 232) CMP: Glucose 314 (high), ALT 97 (high), AST 58 (high) o/w WNL (Creatinine 0.58) UA: Glucose >1000 (abnormal) o/w negative. Troponin I: <0.012 (WNL) TSH: 7.52 (high) Lipase: 197 (WNL) D-dimer: 0.8 (high) T4 Free: 0.91 (WNL) Interventions: 06:43 Ketoralac 30 mg IV injection 08:40 Iopamidol 80 mL IV injection 08:41 Normal Saline 97 mL IV injection 09:27 Normal Saline 500 mL IV injection Emergency Department Course: The patient presented to the emergency department, was triaged, and roomed. The patient was initially visited by my partner, Dr. Batista, who saw the patient briefly and ordered initial ECG, blood work, and chest x-ray. Peripheral IV was placed. Blood was drawn and sent to the laboratory for further tests, results seen above. 05:25 ECG obtained, results as seen above. 06:15 The patient was seen and examined by myself. I discussed the course of care with the patient, including laboratory and diagnostic studies, she is agreeable to the plan. 06:45 CXR obtained, results as read above. 08:43 CT scan of the chest obtained, results as read above. The patient will be discharged home to follow up for an outpatient stress test as discussed with thepatient; she is agreeable to this plan. Indications for return to the ED were discussed and all questions were answered prior to discharge. Impression & Plan [facility] Diagnoses: None Medical Decision Making: Denise comes in with atypical chest pain. She states that it was sharp, lasting only seconds. She had alittle bit of chest tightness that she developed today, but again, it only lasted a few seconds. HerECG was normal and troponin was normal. She has had symptoms off and on for over a month. The chest x-ray was normal. She is diabetic, her blood sugar was elevated and she took her own insulin here andwas given some food to eat. She has steatohepatitis and her liver functions are elevated, but are actually improved from the last check. She also has thyroid disease and her TSH is elevated. Her d-dimer was elevated. Because of the nature of the pain and the fact that she did have a sat that was 94%, I obtained this test. Because it was positive, I obtained a CT, which was negative. This showed some coronary calcifications which were expressed to her and she will get that followed up in clinic. Her urine was unremarkable. There is no evidence this is PE, aortic aneurysm, or coronary ischemia. I believe it is chest wall. We are going to treat conservatively and I will get her set up with an outpatient stress test. Impression: 1. Chest pain, suspect chest wall, atypical, and likely non cardiac 2. Diabetes 3. Hypothyroidism 4. [facility] Plan: Ice to your chest wall 2 times a day and Naprosyn 2 times with food. Stress echo today or tomorrow. Set up an appointment in the clinic with your doctor after your stress test. Bring your lab and CT reports with you. You can discuss the cardiac calcifications with your doctor. I, Lyly Cano, am serving as a scribe at 6:15 AM on 03/28/2013 to document services personallyperformed by Dr. Shaw, based on my observations and the provider's statements to me. Lyly Cano 03/28/2013 EMERGENCY DEPARTMENT Kayce Shaw MD 03/28/13 [id number] Anat Burris RN - 03/28/2013 5:37 AM CDT Pt presents to ED with c/o intermitten substernal CP that radiates to right and left side of chest into both arms, neck and lower back. Pt stated this has been intermitten since Monday. CP associatedwith SOB, dizziness, tingling to fingers, chills, and feeling of rapid heart beat. Pt states she sawher yesterday and was told if CP got worse or changed to be seen. Pt stated CP changed to substernal part of chest vs just left side. Pt also states she has had some diarrhea and pressure in her lowabdomen. Anat Burris RN - 03/28/2013 5:30 AM CDT MD at bedside documented in this encounter Miscellaneous Notes Initial Assessments - Kayce Shaw MD - 04/05/2013 7:18 PM CDT documented in this encounter Plan of Treatment Upcoming Encounters Date Type Specialty Care Team Description 05/19/2022 Office Visit ENT Dima Hidalgo M D [address] [place], [place] [address] (Wo rk) 08/02/2022 Office Visit Neurology Yair Campos MD [address] [place] [phone] (Wo rk) documented as of this encounter Procedures Procedure Name Priority Date/Time Associated Comments Diagnosis CT CHEST PULMONARY STAT 03/28/2013 8:43 AM Res ults for this EMBOLISM W CONTRAST CDT procedur e are in the results section. XR CHEST 2 VIEWS STAT 03/28/2013 6:45 AM Resul ts for this CDT procedure are i n the results section. URINE MACROSCOPIC WITH STAT 03/28/2013 6:43 AM Results for this REFLEX TO MICRO CDT procedure ar e in the results section. CBC WITH PLATELETS & STAT 03/28/2013 5:53 AM R esults for this DIFFERENTIAL CDT procedure are i n the results section. TSH WITH FREE T4 STAT 03/28/2013 5:53 AM Resul ts for this REFLEX CDT procedure are i n the results section. TROPONIN I STAT 03/28/2013 5:53 AM Results f or this CDT procedure are i n the results section. T4 FREE Routine 03/28/2013 5:53 AM Results f or this CDT procedure are i n the results section. LIPASE STAT 03/28/2013 5:53 AM Results f or this CDT procedure are i n the results section. D DIMER QUANTITATIVE Routine 03/28/2013 5:53 AM R esults for this CDT procedure are i n the results section. COMPREHENSIVE STAT 03/28/2013 5:53 AM Results for this METABOLIC PANEL CDT procedure ar e in the results section. EKG 12-LEAD, TRACING STAT 03/28/2013 5:25 AM R esults for this ONLY CDT procedure are i n the results section. documented in this encounter Results Chest CT, IV contrast only - PE protocol (03/28/2013 8:43 AM CDT) Anatomical Region Laterality Modality Chest, SUBRAD CT BODY, P CT CHEST Comp uted Tomography Specimen (Source) Anatomical Collection Method Collection Time Re ceived Time Location / / Volume Laterality 03/28/2013 8:43 AM CDT Impressions 03/28/2013 8:49 AM CDT IMPRESSION: 1. No evidence for pulmonary embolus. 2. Coronary calcifications. 3. Remainder of the scan is negative. BRAXTON DORSEY MD Narrative 03/28/2013 8:[address] CHEST WITH CONTRAST 03/28/2013 8:43 AM HISTORY: Elevated d-dimer. Chest pain. R ule out PE. TECHNIQUE: Scans obtained from the apice s through the diaphragm with IV contrast. 80 mL of Isovue 370 injecte d. COMPARISON: 03/21/07. FINDINGS: Pulmonary arteries are fairly well-opacified and appear patent without evidence of pulmonary emb olus. Thoracic aorta is normal without evidence of aneurysmal an d or dissection. Coronary calcifications. No mediastinal or hilar adenopathy or mass. Lungs are clear. Upper abdomen is negative. Remain barrera of the scan is negative. Procedure Note Braxton Dorsey MD - 03/28/2013F ormatting of this note might be different from the original. CT CHEST WITH CONTRAST 03/28/2013 8:43 AM HISTORY: Elevated d-dimer. Chest pain. R ule out PE. TECHNIQUE: Scans obtained from the apice s through the diaphragm with IV contrast. 80 mL of Isovue 370 injecte d. COMPARISON: 03/21/07. FINDINGS: Pulmonary arteries are fairly well-opacified and appear patent without evidence of pulmonary emb olus. Thoracic aorta is normal without evidence of aneurysmal an d or dissection. Coronary calcifications. No mediastinal or hilar adenopathy or mass. Lungs are clear. Upper abdomen is negative. Remain barrera of the scan is negative. IMPRESSION IMPRESSION: 1. No evidence for pulmonary embolus. 2. Coronary calcifications. 3. Remainder of the scan is negative. BRAXTON DORSEY MD Kayce Shaw MD IMG CT ORDERABLES XR Chest 2 Views (03/28/2013 6:45 AM CDT) Anatomical Region Laterality Modality Chest Other Specimen (Source) Anatomical Collection Method Collection Time Re ceived Time Location / / Volume Laterality 03/28/2013 6:45 AM CDT Narrative 03/28/2013 8:42 AM CDT CHEST 2 VIEW* ??03/28/2013 6:45 AM HISTORY: ??Shortness of breath. Chest pa in. FINDINGS: Chest is negative and unchange d from 02/17/10. BRAXTON DORSEY MD Procedure Note Braxton Dorsey MD - 03/28/2013F ormatting of this note might be different from the original. CHEST 2 VIEW* 03/28/2013 6:45 AM HISTORY: Shortness of breath. Chest pain . FINDINGS: Chest is negative and unchange d from 02/17/10. BRAXTON DORSEY MD Rocky Batista MD IMG DIAGNOSTIC IMAGING ORDER CHAI (ABNORMAL) UA reflex to microscopic (03/28/2013 6:43 AM CDT) [facility] Method Time Signature Color Urine Yellow [facility] Appearance Urine Clear [facility] Glucose Urine >1000 (A) NEG mg/dL [facility] Bilirubin Urine Negative NEG [facility] Ketones Urine Negative NEG mg/dL [facility] Specific [place] 1.019 1.003 - [place] Urine 1.035 [facility] Blood Urine Negative NEG [facility] pH Urine 5.5 5.0 - 7.0 [place] pH [facility] Protein Albumin Negative NEG mg/dL [facility] Urobilinogen Normal 0.0 - 2.0 [place] mg/dL mg/dL [facility] Nitrite Urine Negative NEG [facility] Leukocyte Negative NEG [place] Esterase Urine [facility] Source Midstream [facility] Specimen Anatomical Collection Method Collection Time Receive d Time (Source) Location / / Volume Laterality Urine specimen URINE SPECIMEN 03/28/2013 6:43 AM 03/28 6:52 (specimen) OBTAINED BY CLEAN CDT AM CDT CATCH PROCEDURE / Unknown Kayce Shaw MD LAB - URINE ORDERABLES Performing Organization Address City/State/ZIP Code Phon e Number [facility] [address] [phone] [address] [facility] LAB T4 free (03/28/2013 5:53 AM CDT) athologist Signature T4 Free 0.91 0.70 - 1.85 [place] ng/dL [facility] Specimen Anatomical Collection Method Collection Time Receive d Time (Source) Location / / Volume Laterality 03/28/2013 5:53 AM 3 6:08 CDT AM CDT Rocky Batista MD LAB - BLOOD ORDERABLES Performing Organization Address City/State/ZIP Code Phon e Number [facility] [address] [place] [address] [phone] [facility] (ABNORMAL) D dimer quantitative (03/28/2013 5:53 AM CDT) P athologist Signature D Dimer 0.8 (H) 0.0 - 0.50 [place] ug/ml [facility] Specimen Anatomical Collection Method Collection Time Receive d Time (Source) Location / / Volume Laterality 03/28/2013 5:53 AM 3 6:08 CDT AM CDT Rocky Batista MD LAB - BLOOD ORDERABLES Performing Organization Address City/State/ZIP Code Phon e Number [facility] [address] [place] [address] [phone] [facility] Lipase (03/28/2013 5:53 AM CDT) athologist Signature Lipase 197 20 - 250 [place] U/[facility] Specimen Anatomical Collection Method Collection Time Receive d Time (Source) Location / / Volume Laterality Blood specimen 03/28/2013 5:53 AM 013 6:00 (specimen) CDT AM CDT Rocky Batista MD LAB - BLOOD ORDERABLES Performing Organization Address City/[facility]/ZIP Code Phon e Number [facility] [address] [place] [address] [phone] [facility] (ABNORMAL) TSH with free T4 reflex (03/28/2013 5:53 AM CDT) athologist Signature TSH 7.52 (H) 0.4 - 5.0 [place] mU/[facility] Specimen Anatomical Collection Method Collection Time Receive d Time (Source) Location / / Volume Laterality Blood specimen 03/28/2013 5:53 AM 013 6:08 (specimen) CDT AM CDT Rocky Batista MD LAB - BLOOD ORDERABLES Performing Organization Address City/[facility]/ZIP Code Phon e Number [facility] [address] [place] [address] [facility] Troponin I (03/28/2013 5:53 AM CDT) athologist Signature Troponin I ES <0.012 0.000 - [place] 0.034 ug/L [facility] Specimen Anatomical Collection Method Collection Time Receive d Time (Source) Location / / Volume Laterality Blood specimen 03/28/2013 5:53 AM 013 6:00 (specimen) CDT AM CDT Rocky Batista MD LAB - BLOOD ORDERABLES Performing Organization Address City/State/ZIP Code Phon e Number [facility] [address] [phone] [facility] (ABNORMAL) Comprehensive metabolic panel (03/28/2013 5:53 AM CDT) Analysis Performed At Patho logist Time Signature Sodium 134 133 - 144 [place] mmol/L [facility] Potassium 4.0 3.4 - 5.3 [place] mmol/L [facility] Chloride 101 94 - 109 [place] mmol/L [facility] Carbon Dioxide 25 20 - 32 [place] mmol/L [facility] Anion Gap 8 6 - 17 [place] mmol/L [facility] Glucose 314 (H) 60 - 99 [place] mg/dL [facility] Urea Nitrogen 13 7 - 30 [place] mg/dL [facility] Creatinine 0.58 0.52 [facility]/dL [facility] GFR Estimate >90 >60 [place] mL/min/1.[address] LAB GFR Estimate If >90 >60 [place] Black mL/min/1.[address] LAB Calcium 9.4 8.5 - 10.4 [place] mg/dL [facility] Bilirubin Total 0.7 0.2 - 1.3 [place] mg/dL [facility] Albumin 4.0 3.3 - 4.9 [place] g/dL [facility] Protein Total 7.0 6.8 - 8.8 [place] g/dL [facility] Alkaline 88 40 - 150 [place] Phosphatase U/L [facility] ALT 97 (H) 0 - 50 U/L [facility] AST 58 (H) 0 - 45 U/L [facility] Specimen Anatomical Collection Method Collection Time Receive d Time (Source) Location / / Volume Laterality Blood specimen 03/28/2013 5:53 AM 013 6:09 (specimen) CDT AM CDT Rocky Batista MD LAB - BLOOD ORDERABLES Performing Organization Address City/State/ZIP Code Phon e Number [facility] [address] [address] [facility] CBC with platelets differential (03/28/2013 5:53 AM CDT) [facility] Method Time Signature WBC 8.0 4.0 - [facility] 11.0 [facility] [facility] RBC Count 5.16 3.8 - 5.2 [place] 10e12/L [facility] Hemoglobin 14.0 11.7 - [place] 15.7 g/dL [facility] Hematocrit 40.8 35.0 - [place] 47.0 % [facility] MCV 79 78 - 100 [place] fl [facility] MCH 27.1 26.5 - [place] 33.0 pg [facility] MCHC 34.3 31.5 - [place] 36.5 g/dL [facility] RDW 13.1 10.0 - [place] 15.0 % [facility] Platelet Count 232 150 - 450 [place] [id number]/[facility] Diff Method Automated [facility] % Neutrophils 55.4 % [facility] % Lymphocytes 37.6 % [facility] % Monocytes 3.9 % [facility] % Eosinophils 2.6 % [facility] % Basophils 0.1 % [facility] % Immature 0.4 % [place] Granulocytes [facility] Absolute 4.4 1.6 - 8.3 [place] Neutrophil 10e9/L [facility] Absolute 3.0 0.8 - 5.3 [place] Lymphocytes 10e9/L [facility] Absolute 0.3 0.0 - 1.3 [place] Monocytes 10e9/L [facility] Absolute 0.2 0.0 - 0.7 [place] Eosinophils 10e9/L [facility] Absolute 0.0 0.0 - 0.2 [place] Basophils 10e9/L [facility] Abs Immature 0.0 0 - 0.4 [place] Granulocytes 10e9/L [facility] Specimen Anatomical Collection Method Collection Time Receive d Time (Source) Location / / Volume Laterality Blood specimen 03/28/2013 5:53 AM 013 6:08 (specimen) CDT AM CDT Rocky Batista MD LAB - BLOOD ORDERABLES Performing Organization Address City/State/ZIP Code Phon e Number [facility] [address] [address] [facility] EKG 12 lead (03/28/2013 5:25 AM CDT) [facility] gist Method Time Signature Interpretation ECG Click View RADIOLOGY Image link RESULTS to view waveform and result Specimen (Source) Anatomical Collection Method Collection Time Re ceived Time Location / / Volume Laterality 03/28/2013 5:25 AM CDT Rocky Baitsta MD ECG ORDERABLES Performing Organization Address City/State/ZIP Code Phon e Number RADIOLOGY RESULTS documented in this encounter Visit Diagnoses Diagnosis Chest pain - Primary Chest pain, unspecified Diabetes mellitus (H) Type II or unspecified type diabetes almita litus without mention of complication, not stated as uncontrolled Hypothyroidism Unspecified hypothyroidism VILLAREAL (nonalcoholic steatohepatitis) Other chronic nonalcoholic liver disease documented in this encounter Administered Medications Inactive Administered Medications - up to 3 most recent administrations Medication Order MAR Action Action Date Dose Rate Site iopamidol (ISOVUE-370) 76% Given 03/28/2013 8:40 AM CDT 80 mLs solution 80 mL 80 mL, Intravenous, ONCE, On [place] 03/28/13 at 0830, For 1 dose ketorolac (TORADOL) injection 30 mg Given 03/28/2013 6:53 AM CDT 30 mg 30 mg, Intravenous, ONCE, On [place] 03/28/13 at 0645, For 1 dose sodium chloride 0.9 % BOLUS 500 mL New Bag 03/28/2013 9:27 AM CDT 500 mLs Intravenous, 500 mL, ONCE, On [place] 03/28/13 at 0900, For 1 dose sodium chloride 0.9 % BOLUS 97 mL New Bag 03/28/2013 8:41 AM CDT 97 mLs Intravenous, 97 mL, ONCE, On [place] 03/28/13 at 0830, For 1 dose documented in this encounter Active and Recently Administered Medications Times are shown in CDT. Scheduled Medication Order 03/26/2013 03/27/2013 03/28/2013 iopamidol (ISOVUE-370) 76% solution 80 mL (COMPLETED) 0840 (Given - Provider: Bárbara Contreras - Comment: through 20g left AC) 80 mL, Intravenous, ONCE, [place] 03/28/13 at 0830, For 1 dose ketorolac (TORADOL) injection 30 mg (COMPLETED) 0653 (Given - Provider: Anat Burris RN) 30 mg, Intravenous, ONCE, [place] 03/28/13 at 0645, For 1 dose sodium chloride 0.9 % BOLUS 500 mL (COMPLETED) 09 (New Bag - Provider: Vincent Dunne RN)1040 (Stopped - Provider: Vincent Dunne RN) Intravenous, 500 mL, ONCE, On [place] 03/28/13 at 0900, For 1 dose sodium chloride 0.9 % BOLUS 97 mL (COMPLETED) 08 (New Bag - Provider: Bárbara Contreras - Comment: through 20g left AC) Intravenous, 97 mL, ONCE, [place] 03/28/13 at 0830, For 1 dose documented in this encounter Care Teams Statistical Methods Teacher Relationship Specialty Start Date End Date Aleks Lopez MD PCP - General 10/04/11 05/25/14 documented as of this encounter
--- OUTSIDE RECORDS SUMMARY | 2022-05-09 11:07 | XMS_ITS | Encounter Summary ---
:1955 Author Organization [place] Address [address] [facility] [place] [address] Care Team Providers Name Role Phone Aleks Lopez MD Primary Care Provider Reason for Visit Reason Comments Diabetes Education - Closed Specialty Diagnoses / Procedures Referred By Contact Refer red To Contact Diagnoses DM (diabetes mellitus) (H) Tali Vilchis MD [address] [place], [place] [id number] 5 Referral ID Status Reason Start Date Expiration Date Visits Requ ested Visits Authorized [id number] Closed 04/03/2012 09/30/2012 1 1 Encounter Details Date Type Department Care Team Description 04/06/2012 Office Visit Diabetes Education Miriam Hobbs Type 2 diabetes, Jonny Olmstead HbA1C goal < 7% (H) 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 documented as of this encounter Last Filed Vital Signs Vital Sign Reading Time Taken Comments Blood Pressure - - Pulse - - Temperature - - Respiratory Rate - - Oxygen Saturation - - Inhaled Oxygen Concentration - - Weight 94.9 kg (209 lb 3.2 oz) 04/06/2012 4:35 PM CDT Height 157.5 cm (5' 2) 04/06/2012 4:35 PM CDT Body Mass Index 38.26 04/06/2012 4:35 PM CDT documented in this encounter Patient Instructions Patient InstructionsMiriam Hobbs - 04/06/2012 2:37 PM CDT To manage my diabetes I will: 1) Increase Levemir as instructed every 2 days 2) Treat blood sugars that are less than 100 and symptomatic by eating or drinking 15 gm simple CHO 3) Test blood sugars upon arising and at HS daily, bring meter & log to next diabetes education appt. 4) Choose differentinjection sites with each injection 5) Dispose of sharps safely 6) Take Metformin twice a day with fo od; okay to take later if I forget at the usual time. 7) Continue diabetes education. documented in this encounter Progress Notes Miriam Hobbs - 04/06/2012 5:05 PM CDT Diabetes Self Management Training: Initial Assessment Visit SUBJECTIVE: Becki Mackey Khai presents today for education and evaluation of glucose control related to Type 2 diabetes She is accompanied by self Patient is being treated with oral agents, insulin, Byetta/Victoza and SMBG Patient glucose self monitoring as follows: two times daily. BG meter: Accu-Chek Arelis meter; pt did not bring meter or BG record BG results: fasting glucose- 200's - 270's and bedtime- higher Taking diabetes medications? yes, Problems taking diabetes medications regularly? Yes and Side effects? No At risk for hypoglycemia? yes and Symptoms of low blood sugar (hypoglycemia:sweating, shaky, weak, dizzy, blurred vision, confusion)? No Past Diabetes Education: No Onset of Diabetes: 2011 Patient concerns: Pt suffers from persistent hives, almost 18 mos. this episode. She notes that bothepisodes which she has had have followed major stressors. She is on prednisone for treatment of the hives. Her vision has become blurry and is interfering with her ability to read. She reports that hercognitive problems, mostly memory issues, are related to her depression, and she takes medications and sees a counselor for this, she reports. Asthma makes her intolerant to exercise, and she used to get exercise regularly. Pt reports symptoms of hypoglycemia - shaky, sweaty - with dropping blood sugars from 400's - 200's. Her diabetes is managed by Dr[facility] Jet [facility] at [facility]; he h as instructed her to increase her Levemir dose 2 units at a time until fasting blood sugars are <150. Her A1C this month she reports as 12.6%, which concerns her. Will be seeing Dr. Lopez next week. Pt arrived 20 min late for her appt, because she fell asleep. She reports this is typical of the mental and emotional issues she is facing. Physical Activity: no regular exercise program Nutrition: Not assessed Socio/Economic History: Race/Ethnicity: White/ Language(s) spoken at home: Filipino Lives with: mother Patient learns best by: hands-on practice OBJECTIVE: Blood sugars are too high. Pt is compliant with plan of care. Prednisone is likely to be affecting blood sugars at present. Lab Results: GLC 159 07/20/2011 No results found for this basename: Hdl Vitals: Ht 1.575 m (5' 2) Wt 94.892 kg (209 lb 3.2 oz) BMI 38.26 kg/m2 Estimated Body mass index is 38.26 kg/(m^2) as calculated from the following: Height as of this encounter: 5' 2(1.575 m). Weight as of this encounter: 209 lb 3.2 oz(94.892 kg). History Smoking status ??? Never Smoker Smokeless tobacco ??? Never Used Medications reviewed today. ASSESSMENT: Blood sugars are too high. Pt will need higher doses of insulin, but without a blood sugar record it is not possible to make a recommendation. Her gradual increases in Levemir are certainly safe, but she would benefit from larger increases in order to bring blood sugars down sooner. Eyesight, fatigue, depression, and possibly her cognitive problems should improve with better blood sugar control. Patient learning needs: Taking Medication, Problem Solving and Healthy Coping Education provided today on: AADE Self-Care Behaviors: Taking Medication: action of prescribed medication, drawing up, administering and storing injectablediabetes medications, proper site selection and rotation for injections, side effects of prescribed medications and when to take medications: Levemir, Victoza, and metformin Problem Solving: low blood glucose - causes, signs/symptoms, treatment and prevention, carrying a carbohydrate source at all times and when to call health care provider Healthy Coping: recognize feelings about diagnosis, methods for coping with stress and when to seek professional counseling DIABETES: Control Not in goal A1C 9.0 07/04/2011 HTN: Control unable to assess Last BP: Data Unavailable HYPERCHOLESTEROLEMIA: Control unable to assess No results found for this basename: LDL Learning Assessment: Cognitive impairment - memory. Pt made notes about all points and was also provided written instructions. PLAN: Not able to print AVS today. Other written documents were provided. Education Materials Provided: Safe Disposal Options for [place] & Syringes, Medication Information on Rakesh Nordisc (Levemir) pens and Hypoglycemia Signs and Symptoms Follow-up: Follow-up appointment scheduled. Based on learning assessment above, most appropriate setting for further diabetes education would be: Individual setting. Time Spent: 50 minutes Encounter Type: Individual documented in this encounter Plan of Treatment Upcoming Encounters Date Type Specialty Care Team Description 05/19/2022 Office Visit ENT Dima Hidalgo M D [address] [place], [place] [address] (Wo rk) 08/02/2022 Office Visit Neurology Yair Campos MD [address] [place] [phone] (Wo rk) documented as of this encounter Visit Diagnoses Diagnosis Type 2 diabetes, HbA1c goal < 7% (H) - P rimary Type II or unspecified type diabetes almita litus without mention of complication, not stated as uncontrolled documented in this encounter Care Teams Mixer Wet Pour Relationship Specialty Start Date End Date Aleks Lopez MD PCP - General 10/04/11 05/25/14 documented as of this encounter
--- OUTSIDE RECORDS SUMMARY | 2022-05-09 11:07 | XMS_ITS | Encounter Summary ---
:1955 Author Organization [place] Address [facility] [place] [address] Care Team Providers Name Role Phone Aleks Lopez MD Primary Care Provider Chelsy Bynum MD, Thomas Primary Care Provider Aleks Lopez MD Primary Care Provider Tali Vilchis MD Unavailable Anat Fuller MD Unavailable [phone] Vladislav Fuentes MD Unavailable [phone] Janny Hutton PA-C Unavailable [phone] No Ref-Primary, Physician Primary Care Provider [phone] PratikKrystin newby APRN DOUGH MOLDER Primary Care Provider [phone] Comfort Nichols MD Unavailable Florecita Bryan RN Unavailable Krystin Christie APRN DOUGH MOLDER Unavailable [phone] Comfort Nichols MD Unavailable PratikKrystin newby APRN DOUGH MOLDER Unavailable [phone] Sonja Tinajero [facility] Unavailable [phone] Kelly De Oliveira [facility] Unavailable Eduin Wilhelm Unavailable Unavailable Cecilia Aleman MD Unavailable [phone] Thalia Glass MD Unavailable [phone] Vinita Linares RN Unavailable Unavailable Krystin Christie APRN DOUGH MOLDER Primary Care Provider [phone] Deyanira Stewart [facility] Unavailable Nadira Nichols RN Unavailable Unavailable Frank Argueta Unavailable Unavailable Thalia Glass MD Unavailable Anat Fuller MD Unavailable [phone] Eric Abdi MD Unavailable [phone] Cecilia Aleman MD Unavailable [phone] Lior Sonjashobha Méndez [facility] Unavailable [phone] Vidhi Paiz APRN DOUGH MOLDER Unavailable [phone] Krystin Christie APRN DOUGH MOLDER Unavailable [phone] Sea Tsai DO Unavailable Vidhi Paiz APRN DOUGH MOLDER Unavailable [phone] Sea Tsai DO Unavailable Stephanie Canela MD Unavailable [phone] Krystin Christie APRN DOUGH MOLDER Unavailable [phone] Dima Hidalgo MD Unavailable Dima Hidalgo MD Unavailable Reason for Visit Reason Onset Date Comments Panel Management 01/09/2014 Encounter Details Date Type Department Care Team Description 01/09/2014 Telephone [facility] Aleks Walker MD Panel Management [address] [facility] [place] [address] [address] [phone] [place] [address] (Wo rk) Social History Tobacco Use Types Packs/Day Years Used Date Smoking Tobacco: Never Smokeless Tobacco: Never Alcohol Use Standard Drinks/Week Comments No 0 (1 standard drink = 0.6 oz pure alcoho l) Sex Assigned at Date Recorded Female 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 Date of next visit with a [place] provider: None. Problem List Patient Active Problem List Diagnosis ? ? DM type 2 (diabetes mellitus, type 2); BP Goal <140/90 ??? Hypothyroidism ??? Urticaria ??? Asthma Health Maintenance List Health Maintenance Topic Date Due ??? FOOT EXAM Q1 YEAR( NO INBASKET) 01/19/1956 ??? EYE EXAM Q1 YEAR( NO INBASKET) 01/19/1956 ??? LIPID MONITORING Q1 YEAR( NO INBASKET) 01/19/1956 ??? MICROALBUMIN Q1 YEAR( NO INBASKET) [birth year]19/1956 ??? TETANUS IMMUNIZATION (SYSTEM ASSIGNED) 1973 ??? ADVANCE DIRECTIVE PLANNING Q5 YRS (NO INBASKET) 1973 ??? MAMMO SCREEN Q2 YR (SYSTEM ASSIGNED) 1995 ??? COLON CANCER SCREEN (SYSTEM ASSIGNED) 2005 ??? A1C Q6 MO( NO INBASKET) 01/03/2012 ??? CREATININE Q1 YEAR (NO INBASKET) 03/28/2014 ??? INFLUENZA VACCINE (SYSTEM ASSIGNED) 04/16/2014 ??? TSH W/ FREE T4 REFLEX Q2 YEAR (NO INBASKET) 03/28/2015 ??? PAP SCREENING Q3 YR (SYSTEM ASSIGNED) 08/22/2016 For diabetic patients with hyperlipidemia, only choose diabetes. Patient has the following on her problem list: Diabetes and CV review ASA: Passed A1C goal on problem list: <7.0 Last A1C A1C 9.0 07/04/2011 A1C 6.3 03/02/2011 A1C 7.2 04/21/2010 A1C tested: Failed LDL goal on problem list: <100 Last LDL: No results found for this basename: chol No results found for this basename: hdl No results found for this basename: ldl No results found for this basename: trig No results found for this basename: cholhdlratio LDL tested: Failed Last three blood pressure readings: BP Readings from Last 3 Encounters: 08/22/13 124/68 03/28/13 110/70 04/03/12 119/74 Composite cancer screening Chart review shows that this patient is due/due soon for the following None PAP NIL 08/22/2013 Past Surgical History Procedure Laterality Date ??? Colonoscopy age 52 [place] results ??? Biopsy 2010 liver Is hysterectomy listed in surgical history? No Is mastectomy listed in surgical history? No Tobacco History History Smoking status ??? Never Smoker Smokeless tobacco ??? Never Used Summary: Patient is due/failing the following: DM follow up and labs Action needed: patient came here once for pap- PCP Aleks Lopez Type of outreach: pt PCP John Questions for provider review: None Please indicate office visit, lab, MTM, or nurse appt if needed. Indicate fasting or not fasting. Bel García CMA Chart routed to Care Team . documented in this encounter Plan of Treatment Upcoming Encounters Date Type Specialty Care Team Description 05/19/2022 Office Visit ENT Dima Hidalgo M D [address] [place], [place] [address] (Wo rk) 08/02/2022 Office Visit Neurology Yair Campos MD [address] [place] [phone] (Wo rk) documented as of this encounter Visit Diagnoses Not on filedocumented in this encounter Care Teams Laboratory Analyst Relationship Specialty Start Date End Date Aleks Lopez MD PCP - General 10/04/11 05/25/14 Haroldo Valentino V, PCP - General Internal Medicine 05/26/14 5 MD [place] [address] [place] [address] Aleks Lopez MD PCP - General Family Practice 10/18/14 11/01/16 No Ref-Primary, PCP - General 11/02/16 12/14/17 Physician Krystin Christie PCP - General Nurse Practitioner 12/15/17 09/08/19 SAURABH Engel DOUGH MOLDER [facility]5 [facility] [address] [id number] Comfort Nichols, PCP - Assigned PCP 04/08/[address] [place] [address] [address] [place] [id number] Krystin Christie PCP - Assigned PCP 08/26/18 09/18/18 SAURABH Engel DOUGH MOLDER [address] [place] [address] [address] [id number] Krystin Christie PCP - General Nurse Practitioner 09/18/19 SAURABH Engel DOUGH MOLDER [facility]5 [facility] [address] [place] [phone] Tali Vilchis MD INTERNAL MEDICINE - 04/10/15 MD Kaitlynn ENDOCRINOLOGY, [address] [place] [address] DIABETES & METABOLISM [facility] [address] [place], [place] [phone] Anat Fuller MD Internal Medicine 04/10/15 09/17/19 Krystin Duran MD [address] [place] [address] [address] [place] [address] Vladislav Fuentes MD Psychiatry 06/30/15 06/30/15 Mahamed Mcneill MD [facility] [address] [place] [address] [id number] Janny Hutton Physician Floor Supervisor Physician Floor Supervisor 06/30/15 09/17/19 CARLA Mckeon [address] [facility] [address] [place] [address] Florecita Bryan, Lead Anode Worker 08/17/18 RN Comfort Nichols, Assigned PCP 04/08/18 08/25/18 [address] [facility] [place] [address] Krystin Christie Assigned PCP 08/26/18 01/28/21 SAURABH Engel CNP [address] [facility] [place] [address] Sonja Tinajero Pharmacist Pharmacist 12/24/18 09/17/19 Dev, [facility] [address] [place] [address] Kelly De Oliveira, Pharmacist Pharmacist 01/21/19 06/24/19 [facility] [address] [place] [address] Eduin Wilhelm Personal Advocate & 06/17/19 09/17/19 Liaison (PAL) Cecilia Aleman MD Urology 07/22/19 09/17/19 MD Lyly [address] [facility] [address] [place] [address] Joan Monroe MD Obstetrics 07/22/19 09/17/19 Thalia Engel MD [address] [place] [address] Vinita Linares RN Registered Nurse 07/22/19 09/17/19 Deyanira Stewart, Pharmacist Pharmacist 01/13/20 08/24/20 [facility] [address] [place] [address] Nadira Nichols, RN Lead Anode Worker Primary Care - CC 01/21/20 03/02/20 Frank Argueta Community Health Worker 01/21/2002/14 Joan Monroe, Assigned OBGYN Provider 05/08/2001/16/21 Thalia Engel MD [address] [facility] [address] [place], [place] [address] Anat Fuller Assigned Gastroenterology 05/08/20 12/12/20 Krystin Duran MD Provider [address] [facility] [address] [place], [place] [phone] Eric Abdi Assigned Musculoskeletal 05/08/20 03/27/21 MD Joo Provider [place] [address] [place] [phone] Cecilia Aleman Assigned Surgical 05/08/20 03/06/21 MD Lyly Provider [address] [facility] [address] [place] [address] Sonja Tinajero Ka Pharmacist 08/24/20 Dev, [facility] [address] [facility] [address] [id number] Vidhi Paiz Assigned PCP 01/29/21 07/10/21 SAURABH Turner DOUGH MOLDER [address] [facility] [address] [place] [phone] Krystin Christie Assigned PCP 07/11/21 07/24/21 SAUARBH Engel DOUGH MOLDER [address] [facility] [address] [place] [id number] MD Eulalio Neurology 08/04/21 Sea Fink DO [address] [place] [address] Vidhi Paiz Assigned PCP 07/25/21 01/07/22 SAURABH Turner DOUGH MOLDER [address] [facility] [place] [address] Eulalio, Isha Neuroscience 10/10/21 Sea Fink DO Provider [address] [place] [address] Stephanie Canela Assigned OBGYN Provider 12/05/21 MD Alee [address] [place], [place] [phone] Krystin Christie Assigned PCP 01/08/22 SAURABH Engel DOUGH MOLDER [address] [facility] [place] [address] Dima Hidalgo MD MD Otolaryngology 02/15/22 Ronald [place] [phone] Dima Hidalgo MD Assigned Surgical 03/12/22 Ronald [place] [phone] documented as of this encounter
--- OUTSIDE RECORDS SUMMARY | 2022-05-09 11:07 | XMS_ITS | Encounter Summary ---
:1955 Author Organization [place] Address [address] [facility] [place] [address] Care Team Providers Name Role Phone Aleks Lopez MD Primary Care Provider Reason for Visit Reason Onset Date Comments Refill Request 04/17/2012 Encounter Details Date Type Department Care Team Description 04/17/2012 Refill Weight Management Ad Joo Martinez, Refill Request Jonny HARDEN [address], Clinic [address] [place] [address] [phone] Social History Tobacco Use Types Packs/Day Years Used Date Smoking Tobacco: Never Smokeless Tobacco: Never Alcohol Use Standard Drinks/Week Comments No 0 (1 standard drink = 0.6 oz pure alcoho l) Sex Assigned at Date Recorded Female 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 Will have [address] Vilchis refjuan, she agrees to make appt for Dr Watson. documented in this encounter Plan of Treatment Upcoming Encounters Date Type Specialty Care Team Description 05/19/2022 Office Visit ENT Dima [facility]idalgo M D [address] [facility] [address] [place], [place] [address] (Wo rk) 08/02/2022 Office Visit Neurology Yair Campos MD [address] [facility] [address] (Wo rk) documented as of this encounter Visit Diagnoses Not on filedocumented in this encounter Care Teams Dental Technologist Relationship Specialty Start Date End Date Aleks Lopez MD PCP - General 10/04/11 05/25/14 documented as of this encounter
--- OUTSIDE RECORDS SUMMARY | 2022-05-09 11:07 | XMS_ITS | Encounter Summary ---
:1955 Author Organization [place] Address [address] 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 She is calling today because she has been out of her thyroid medication for one month, and hasn't been feeling well. She thought she would see a specialist again. Her PMD, Dr Lopez, has been prescribing her medication for her, she states. Plan: Endocrine's next opening is in one month. Patient advised to see PMD TODAY to get thyroid labsand get back on her medication. Stacy Ortega RN documented in this encounter Plan of Treatment Upcoming Encounters Date Type Specialty Care Team Description 05/19/2022 Office Visit ENT Dima Hidalgo M D [address] [facility] [address] [place], [place] [address] (Wo rk) 08/02/2022 Office Visit Neurology Yair Campos MD [address] [facility] [place] [address] (Wo rk) documented as of this encounter Visit Diagnoses Not on filedocumented in this encounter Care Teams Military Aircraft Designer Relationship Specialty Start Date End Date Aleks Lopez MD PCP - General 10/04/11 05/25/14 documented as of this encounter
--- OUTSIDE RECORDS SUMMARY | 2022-05-09 11:07 | XMS_ITS | Encounter Summary ---
:1955 Author Organization [place] Address [address] [facility] [place] [address] Care Team Providers Name Role Phone Aleks Lopez MD Primary Care Provider Encounter Details Date Type Department Care Team Description 04/04/2012 Orders Only Diabetes and Tali Vilchis Endocrine MD Kaitlynn hypothyroidism (Primary 6th Floor, Clinic [address] [place] [address] Dx) Efrain Kemp [facility] [address] [phone] [facility] [address] (Work) [place] [address] Social History Tobacco Use Types Packs/Day Years Used Date Smoking Tobacco: Never Smokeless Tobacco: Never Alcohol Use Standard Drinks/Week Comments No 0 (1 standard drink = 0.6 oz pure alcoho l) Sex Assigned at Date Recorded Female 08/17/2018 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 documented as of this encounter Plan of Treatment Upcoming Encounters Date Type Specialty Care Team Description 05/19/2022 Office Visit ENT Dima Hidalgo M D [address] [facility] [place] [phone] (Wo rk) 08/02/2022 Office Visit Neurology Yair Campos MD [address] [place] [id number] (Wo rk) documented as of this encounter Visit Diagnoses Diagnosis Subclinical hypothyroidism - Primary Other specified acquired hypothyroidism documented in this encounter Care Teams Lorry Weigher Relationship Specialty Start Date End Date Aleks Lopez MD PCP - General 10/04/11 05/25/14 documented as of this encounter
--- OUTSIDE RECORDS SUMMARY | 2022-05-09 11:07 | XMS_ITS | Encounter Summary ---
:1955 Author Organization [place] Address [address] [facility] [place] [address] Care Team Providers Name Role Phone Aleks Lopez MD Primary Care Provider Reason for Visit Reason Comments Urgent Care pt c/o pn with urination 1-2 days--darker urine--also has recurring yeast inf--vag burning seems worse with the meds she is taking invokana Encounter Details Date Type Department Care Team Description 02/19/2015 Office Visit [facility] Deyanira Jhaveri infection of the vagina (Primary Dx); Anand Yen PA-C Vaginal burning; [address] Dysuria; [place]ila [phone] [place] DAV[place] [address] Glucose found in urine on examination [phone] (Wo rk) Social History Tobacco Use Types Packs/Day Years Used Date Smoking Tobacco: Never Smokeless Tobacco: Never Alcohol Use Standard Drinks/Week Comments No 0 (1 standard drink = 0.6 oz pure alcoho l) Sex Assigned at Date Recorded Female 08/17/2018 10:39 PM 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 documented as of this encounter Last Filed Vital Signs Vital Sign Reading Time Taken Comments Blood Pressure 124/72 02/19/2015 7:56 PM CDT Pulse 83 02/19/2015 7:56 PM CDT Temperature 36.8 ??C (98.3 ??F) 02/19/2015 7:56 PM CDT Respiratory Rate - - Oxygen Saturation 98% 02/19/2015 7:56 PM CDT Inhaled Oxygen Concentration - - Weight 93 kg (205 lb) 02/19/2015 7:56 PM CDT Height - - Body Mass Index 36.31 05/26/2014 9:57 PM 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 documented in this encounter Progress Notes Deyanira Jhaveri PA-C - 02/19/2015 9:48 PM CDT SUBJECTIVE: Becki Ridley is a 60 year old female who presents today for a possible UTI. Symptoms of dysuria and some mild pain on her left side that has moved around to her side. Wonders if stone possible. No major pain. Urine seems slightly darker. have been going on for 1day(s). Hematuria no. gradual onsetand mild. There is no history of fever, chills, nausea or vomiting. Also with some vaginal itching and hx of yeast issues. This patient does have a history of urinary tract infections. Patient denies longduration, rigors, flank pain, temperature > 101 degrees F. and Vomiting, significant nausea or diarrhea. Also is diabetic but does not check her BS levels. Has not taken medication today. Past Medical History Diagnosis Date ??? Hypertension [...] by mouth every morning (before breakfast) ??? fluconazole (DIFLUCAN) 150 MG tablet Take 1 tablet (150 mg) by mouth every 3 days 4 tablet 0 ??? ibuprofen (ADVIL,MOTRIN) 200 MG tablet Take 3 tablets (600 mg) by mouth every 8 hours as needed for mild pain 20 tablet 0 ??? busPIRone (BUSPAR) 5 MG tablet Take 5 mg by mouth as needed. ??? omeprazole (PRILOSEC) 20 MG capsule Take 1 capsule by mouth daily. 90 capsule 3 ??? Insulin Pen Needle (B-D U/F PEN NEEDLE) needle 1 Box See Admin Instructions. Use once a day. 1 Box 11 ??? cetirizine (ZYRTEC) 10 MG tablet Take 1 tablet by mouth daily as needed. For hives 90 tablet 3 ??? fexofenadine (JOSSY) 180 MG tablet Take 1 tablet by mouth daily as needed. For hives 90 tablet3 ??? Memantine HCl (NAMENDA TITRATION KITTY) 5 (28)-10 (21) MG TABS Take as directed. ??? mometasone (NASONEX) 50 MCG/ACT nasal spray 1 spray by Both Nostrils route every 12 hours. ??? ropinirole (REQUIP) 0.5 MG tablet Take 1 tablet by mouth At Bedtime. ??? montelukast (SINGULAIR) 10 MG tablet Take [...] negative except as stated above. OBJECTIVE: BP 124/72 mmHg Pulse 83 Temp(Src) 98.3 ??F (36.8 ??C) (Oral) Wt 205 lb (92.987 kg) SpO2 98% GENERAL APPEARANCE: healthy, alert and no distress RESP: lungs clear to auscultation - no rales, rhonchi or wheezes CV: regular rates and rhythm, normal S1 S2, no murmur noted ABDOMEN: soft, nontender, no HSM or masses and bowel sounds normal BACK: No CVA tenderness SKIN: no suspicious lesions or rashes Results for orders placed or performed in visit on 02/19/15 *UA reflex to Microscopic and Culture Result Value Ref Range Color Urine Yellow Appearance Urine Slightly Cloudy Glucose Urine 500 (A) NEG mg/dL Bilirubin Urine Negative NEG Ketones Urine Negative NEG mg/dL Specific [place] Urine 1.025 1.003 - 1.035 Blood Urine Trace (A) NEG pH Urine 5.5 5.0 - 7.0 pH Protein Albumin Urine Negative NEG mg/dL Urobilinogen Urine 0.2 0.2 - 1.0 EU/dL Nitrite Urine Negative NEG Leukocyte Esterase Urine Negative NEG Source Midstream Urine Urine Microscopic Result Value Ref Range WBC Urine O - 2 0 - 2 /HPF RBC Urine 10-25 (A) 0 - 2 /HPF Squamous Epithelial /LPF Urine Few FEW /LPF Bacteria Urine Few (A) NEG /HPF Yeast Urine Few (A) NEG /HPF Wet prep Result Value Ref Range Specimen Description Vagina Wet Prep (A) No Trichomonas seen No clue cells seen Yeast seen Micro Report Status FINAL 02/19/2015 ASSESSMENT: Yeast infection of the vagina [112.1] Glucose found in urine on examination [791.5] PLAN: Diflucan as directed. Patient refuses to have blood glucose level checked in clinic. Discussed importance of monitoring and control of BS levels. She states that will check when gets home. Also needs to check daily and log results and FU with PCP within next 1 week to have med check Drink plenty of fluids. Prevention and treatment of UTI's discussed.Signs and symptoms of pyelonephritis mentioned. Follow up with primary care physician if not improving No signs of UTI and trace blood in urine and could be possible small stone. Fluids and FU with PCP if pain worsens or blood in urine. documented in this encounter Nursing Notes Stephanie Abad CMA - 02/19/2015 7:59 PM CDT Chief Complaint Patient presents with ??? Urgent Care pt c/o pn with urination 1-2 days--darker urine--also has recurring yeast inf--vag burning seems worse with the meds she is taking invokana Initial BP 124/72 mmHg Pulse 83 Temp(Src) 98.3 ??F (36.8 ??C) (Oral) Wt 205 lb (92.987 kg) SpO2 98% Estimated body mass index is 36.32 kg/(m^2) as calculated from the following: Height as of 14: 5' 3 (1.6 m). Weight as of this encounter: 205 lb (92.987 kg).. BP completed using cuff size: harish Abad CMA (AADE) documented in this encounter Plan of Treatment Upcoming Encounters Date Type Specialty Care Team Description 05/19/2022 Office Visit ENT Dima Hidalgo M D [address] [place], [place] [address] (Wo rk) 08/02/2022 Office Visit Neurology Yair Campos MD [address] [place], [place] [address] (Wo rk) documented as of this encounter Procedures Procedure Name Priority Date/Time Associated Comments Diagnosis URINE MICROSCOPIC Routine 02/19/2015 7:54 PM Vaginal burning R esults for this CDT procedure are i n the results section. UA MACROSCOPIC WITH Routine 02/19/2015 7:54 PM Dysuria Re sults for this REFLEX TO MICROSCOPIC CDT proced ure are in AND CULTURE the results section. WET PREPARATION Routine 02/19/2015 7:53 PM Vaginal burning Res ults for this CDT procedure are i n the results section. documented in this encounter Results (ABNORMAL) Urine Microscopic (02/19/2015 7:54 PM CDT) [facility] Method Time Signature WBC Urine O - 2 0 - 2 /HPF [facility] RBC Urine 10-25 (A) 0 - 2 /HPF [facility] Squamous Few FEW /LPF [facility] Epithelial /LPF [facility] Urine Bacteria Urine Few (A) NEG /HPF [facility] Yeast Urine Few (A) NEG /HPF [facility] Specimen Anatomical Collection Method Collection Time Receive d Time (Source) Location / / Volume Laterality 02/19/2015 7:54 PM 5 7:55 CDT PM CDT Deyanira Jhaveri PA-C LAB - URINE ORDERABLES Performing Organization Address [facility]/ZIP Code Phon e Number [facility] [address] [place] [address] [phone] (ABNORMAL) *UA reflex to Microscopic and Culture (02/19/2015 7:54 PM CDT) Patholo gist Method Time Signature Color Urine Yellow [facility] Appearance Urine Slightly [facility] Cloudy [facility] Glucose Urine 500 (A) NEG mg/dL [facility] Bilirubin Urine Negative NEG [facility] Ketones Urine Negative NEG mg/dL [facility] Specific [place] 1.025 1.003 - [facility] Urine 1.035 [facility] Blood Urine Trace (A) NEG [facility] pH Urine 5.5 5.0 - 7.0 [facility] pH [facility] Protein Albumin Negative NEG mg/dL [facility] Urine [facility] Urobilinogen 0.2 0.2 - 1.0 [facility] Urine EU/dL [facility] Nitrite Urine Negative NEG [facility] Leukocyte Negative NEG [facility] Esterase Urine [facility] Source Midstream [facility] Specimen Anatomical Collection Method Collection Time Receive d Time (Source) Location / / Volume Laterality Urine specimen 02/19/2015 7:54 PM 015 7:55 (specimen) CDT PM CDT Deyanira Jhaveri PA-C LAB - URINE ORDERABLES Performing Organization Address City/[facility]/ZIP Code Phon e Number [facility] [address] [place] [address] [phone] (ABNORMAL) Wet prep (02/19/2015 7:53 PM CDT) Patholo gist Method Time Signature Specimen Vagina [facility] Description [facility] Wet Prep No Trichomonas seen [facility] No clue cells seen [facility] Yeast seen [facility] (A) Micro Report FINAL [facility] Status 02/19/2015 [facility] Specimen Anatomical Collection Method Collection Time Receive d Time (Source) Location / / Volume Laterality 02/19/2015 7:53 PM 5 7:54 CDT PM CDT Deyanira Jhaveri PA-C LAB - MICRO GENERAL ORDERABL ES Performing Organization Address City/State/ZIP Code Phon e Number [address] [address] documented in this encounter Visit Diagnoses Diagnosis Yeast infection of the vagina - Primary Candidiasis of vulva and vagina Vaginal burning Other specified symptom associated with female genital organs Dysuria Glucose found in urine on examination Glycosuria documented in this encounter Care Teams Receiving Manager Relationship Specialty Start Date End Date Aleks Lopez MD PCP - General Family Practice 10/18/14 11/01/16 documented as of this encounter
--- OUTSIDE RECORDS SUMMARY | 2022-05-09 11:07 | XMS_ITS | Encounter Summary ---
:1955 Author Organization [place] Address [address] [place] [address] Care Team Providers Name Role Phone Aleks Lopez MD Primary Care Provider Reason for Referral - Closed Specialty Diagnoses / Procedures Referred By Contact Refer red To Contact Diagnoses DM (diabetes mellitus) (H) Tali Vilchis MD [address] [address] Referral ID Status Reason Start Date Expiration Date Visits Requ ested Visits Authorized [id number] Closed 04/03/2012 09/30/2012 1 1 Reason for Visit Reason Comments RECHECK F/U Subclinical hypothyroidi sm Encounter Details Date Type Department Care Team Description 04/03/2012 Office Visit Diabetes and Tali Vilchis Hypothyroid ism (Primary Dx); Endocrine MD Kaitlynn DM (diabetes mellitus) (H) 6th Floor, Clinic 6A [address] [facility] Efrain Kemp [facility] [address] [place] [id number] [address] [phone] [facility] (Work) [place], [place] [phone] (Fax) [phone] Social History Tobacco Use Types Packs/Day Years Used Date Smoking Tobacco: Never Smokeless Tobacco: Never Alcohol Use Standard Drinks/Week Comments No 0 (1 standard drink = 0.6 oz pure alcoho l) Sex Assigned at Date Recorded Female 08/17/2018 10:39 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 2 Body Mass Index 38.15 04/03/2012 2:57 PM CDT documented in this encounter Patient Instructions Patient InstructionsTali Vilchis MD - 04/03/2012 4:24 PM CDT When you take the prednisone your blood sugar may be higher than when you are not on the prednisone. Check your blood sugar before meals, in the morning fasting, and also later in the day. Bring your blood sugar meter to your appointments with your primary care doctor and also to the meeting with diabetes education. Take the Levemir in the morning Take the Victoza in the morning Stop down on first floor, clinic 1B, to complete your lab work. Lab results will be sent to you in the mail. If you have any questions or concerns, please don't hesitate to call us at [phone]. documented in this encounter Progress Notes Tali Vilchis MD - 04/03/2012 4:01 PM CDT ASSESSMENT/ PLAN: 1. Subclinical hypothyroidism is documented since January,. Unstable on L-T4 due to lack of followup. She is clinically euthyroid. Labs today with dose adjustment of L-T4 as indicated. 2. Obesity -she is now on Victoza and metformin for this, as well as for the DM 3. Diabetes mellitus type 2- Unstable due to steroids and recent start of insulin. Refer to DM education for instruction on insulin and BS monitoring. 4. Intermittent steroid treatments for urticaria. Plan as per # 3 Tali Vilchis MD CC/HPI:Becki is a 57 year old female seen in followup consultation for her thyroid. I have seen her once previously in 02/24. At that time, I started her on L-T4 for treatment of subclinical hypothyroidism, in the hope it might help her urticaria problem. She was to have had follow up in a few months, but she didn't. Today she notes she couldn't tell a difference with the L-T4 therapy. Today she reports she has had another bout of urticaria for the past 1 year and 5 months this time. She gets steroids bursts every 3 weeks for this for a few months (she is very vague about what the christianson was - ? 60, 50, 40, 30, 20, 10?). She is currently on steroids again, restarting last night at 20mg/day. She was planning to speak with Dr Lopez about what dose to take now since she doesn't want totake the burst - she wants to take 20 mg/day. When I met her last year she was on byetta and metformin but she didn't seem to understand she had DM. She started Victoza in 06/26 , by Dr Watson in [facility]. Today she states that her HgbA1c was recently over 12? (this is not documented on the record here). She just recently started testing the BS a few times/day again. Last night her BS was 300+ after dinner. She is now on levemir insulin, started a few days ago by Dr Lopez, her PCP. She was started at 6 units/day and told to increase a few units/day until BS < 150. She has not been to DM education andshe is not scheduled for DM education. She is telling me she doesn't know when to take the Levemir. Metformin 2 tablets/day (? Dose unknown) Levemir 6 units taken yesterday? She hasn't taken it today,. Victoza -last taken yesterday AM. She hasn't taken it today, pending this appt. It was hard to pin her down on when she is taking tis. Past Medical History Past Medical History Diagnosis Date ??? Hypertension ??? Asthma ??? Arthritis ??? Restrictive lung disease ??? Angioedema ??? Sleep apnea ??? Restless legs syndrome ??? Depression ??? VILLAREAL (nonalcoholic steatohepatitis) ??? Lower extremity edema ??? Diabetes mellitus sometimes I do ??? Blood transfusion ??? Thyroid disease Allergies Allergies Allergen Reactions ??? Cipro (Quinolones) Itching and Difficulty breathing ??? Codeine Sulfate Other (See Comments) Blacked out ??? Vicodin (Hydrocodone-Acetaminophen) Itching and Difficulty breathing ??? Darvocet (Propoxyphene N-Apap) Itching Family History + thyroid grandmother, aunts, cousins (2), + Carmen thyroiditis in daughter Social History History Substance Use Topics ??? Smoking status: Never Smoker ??? Smokeless tobacco: Never Used ??? Alcohol Use: No Off or work for depression/ cognitive problems ROS 20# Weight loss with the help of Dr Watson (weight was 216 01/24, 218 12/25) Sleep is good now that she isn't working Uses CPAP and medication for restless legs Occasional heart flutter - this last occurred yesterday, lasted a few seconds occassional nausea, more lately Cognitive problems Current Outpatient Prescriptions Medication Sig ??? insulin detemir (LEVEMIR FLEXPEN) 100 UNIT/ML injection Take 6 units daily, and go up 2 units every day until morning sugar is 150. ??? levothyroxine (SYNTHROID, LEVOTHROID) 25 MCG tablet Take 1 tablet by mouth daily. DISPENSE LEVOTHYROXINE ONLY ??? busPIRone (BUSPAR) 5 MG tablet Take 5 mg by mouth as needed. ??? omeprazole (PRILOSEC) 20 MG capsule Take 1 capsule by mouth daily. ??? liraglutide (VICTOZA) 18 MG/3ML SOLN Inject 1.8 mg Subcutaneous daily. ??? Insulin Pen Needle (B-D U/F PEN NEEDLE) needle 1 Box See Admin Instructions. Use once a day. ??? cetirizine (ZYRTEC) 10 MG tablet Take 1 tablet by mouth daily as needed. For hives ??? fexofenadine (JOSSY) 180 MG tablet Take 1 tablet by mouth daily as needed. For hives ??? predniSONE (DELTASONE) 20 MG tablet Patient takes burst and then taper down. ??? Desvenlafaxine Succinate (PRISTIQ) 100 MG TB24 24 hr tablet Take 1 tablet by mouth daily. ??? Memantine HCl (NAMENDA TITRATION KITTY) 5 (28)-10 (21) MG TABS Take as directed. ??? mometasone (NASONEX) 50 MCG/ACT nasal spray 1 spray by Both Nostrils route every 12 hours. ??? ropinirole (REQUIP) 0.5 MG tablet Take 1 tablet by mouth At Bedtime. ??? montelukast (SINGULAIR) 10 MG tablet Take 1 tablet by mouth daily. ??? tramadol (ULTRAM) 50 MG tablet Take 1 tablet by mouth 3 times daily as needed. ??? glucose blood test strips (ACCU-CHEK COMPACT TEST DRUM) strip Test twice daily. ??? ACCU-CHEK MULTICLIX LANCETS MISC test twice [...] mouth 2 times daily (with meals). ??? armodafinil (NUVIGIL) 250 MG TABS Take 250 mg by mouth every morning. ??? Potassium Gluconate 595 MG TABS Take 1 tablet by mouth 2 times daily. ??? ibuprofen (ADVIL,MOTRIN) 200 MG tablet Take 400 mg by mouth every 4 hours as needed. Physical Exam BP 119/74 Pulse 114 Ht 1.575 m (5' 2) Wt 94.62 kg (208 lb 9.6 oz) BMI 38.15 kg/m2 Body mass index is 38.15 kg/(m^2). GENERAL : obese middle aged woman In no apparent distress. Her sister is present SKIN: Normal color, normal temperature, texture. No [...] cyanosis or edema. DATA REVIEW: [facility] Latest Ref Rng 03/02/2011 02/09/2011 TSH 0.4 - 5.0 mU/L 5.89 (H) T4 FREE 0.70 - 1.85 ng/dL 1.13 TRIIODOTHYRONINE(T3) 60 - 181 ng/dL THYROGLOBULIN ANTIBODY <40 IU/mL <20 THYR PEROXIDASE SKINNY <35 IU/mL <10 [facility] Latest Ref Rng 02/05/2010 05/22/2007 TSH 0.4 - 5.0 mU/L 6.27 (H) 3.19 T4 FREE 0.70 - 1.85 ng/dL 0.74 TRIIODOTHYRONINE(T3) 60 - 181 ng/dL THYROGLOBULIN ANTIBODY <40 IU/mL THYR PEROXIDASE SKINNY <35 IU/mL [facility]O [facility] Latest Ref Rng 11/13/2006 TSH 0.4 - 5.0 mU/L 3.12 T4 FREE 0.70 - 1.85 ng/dL 1.07 TRIIODOTHYRONINE(T3) 60 - 181 ng/dL 138 THYROGLOBULIN ANTIBODY <40 IU/mL <20 THYR PEROXIDASE SKINNY <35 IU/mL <10 documented in this encounter Nursing Notes 04/03/2012 2:30 PM CDT >> SUMMER Scherer Apr 03, 2012 3:17 PM Patient presents with: RECHECK - F/U Subclinical hypothyroidism Summer Guan CMA documented in this encounter Plan of Treatment Upcoming Encounters Date Type Specialty Care Team Description 05/19/2022 Office Visit ENT Dima Hidalgo M D [address] [phone] (Wo rk) 08/02/2022 Office Visit Neurology Yair Campos MD [address] [place] [address] (Wo rk) Scheduled Referrals Name Type Priority Associated Diagnoses Order S chedule QUALITY CONTROL PROJECTIONIST Referral Routine DM (diabetes mellitus) Ordered: 04/03/2012 REFERRAL (H) documented as of this encounter Procedures Procedure Name Priority Date/Time Associated Diagnosis Comme nts TSH Routine 04/03/2012 4:56 PM Hypothyroidism Results for this CDT procedure are i n the results section . T4 FREE Routine 04/03/2012 4:56 PM Hypothyroidism Results for this CDT procedure are i n the results section . documented in this encounter Results T4 free (04/03/2012 4:56 PM CDT) athologist Signature T4 Free 0.91 0.70 - 1.85 [facility] ng/dL CAMPUS LABS Specimen Anatomical Collection Method Collection Time Receive d Time (Source) Location / / Volume Laterality Blood specimen 04/03/2012 4:56 PM 012 4:57 (specimen) CDT PM CDT Tali Vilchis MD LAB - BLOOD ORDERABLES Performing Organization Address City/[facility]/ZIP Code Phon e Number [address] LABS TSH (04/03/2012 4:56 PM CDT) athologist Signature TSH 2.11 0.4 - 5.0 [facility] mU/L CAMPUS LABS Specimen Anatomical Collection Method Collection Time Receive d Time (Source) Location / / Volume Laterality Blood specimen 04/03/2012 4:56 PM 012 4:57 (specimen) CDT PM CDT Tali Vilchis MD LAB - BLOOD ORDERABLES Performing Organization Address City/[facility] Phon e Number [address] LABS documented in this encounter Visit Diagnoses Diagnosis Hypothyroidism - Primary Unspecified hypothyroidism DM (diabetes mellitus) (H) Type II or unspecified type diabetes almita litus without mention of complication, not stated as uncontrolled documented in this encounter Care Teams Wire Frame Maker Relationship Specialty Start Date End Date Aleks Lopez MD PCP - General 10/04/11 05/25/14 documented as of this encounter
--- OUTSIDE RECORDS SUMMARY | 2022-05-09 11:07 | XMS_ITS | Encounter Summary ---
:1955 Author Organization [place] Address [address] [facility] [place] [address] Care Team Providers Name Role Phone Chelsy Bynum MD, Haroldo Primary Care Provider Reason for Visit Reason Comments Flu Symptoms Encounter Details Date Type Department Care Team Description 07/10/2014 Emergency [facility] Provider, Historical In fluenza-like illness [facility] Emergency Neela m [address] [place] [address] Social History Tobacco Use Types Packs/Day Years Used Date Smoking Tobacco: Never Smokeless Tobacco: Never Alcohol Use Standard Drinks/Week Comments No 0 (1 standard drink = 0.6 oz pure alcoho l) Sex Assigned at Date Recorded Female 08/17/2018 10:39 PM MANAGER DIGITAL documented as of this encounter Medications at [...] documented as of this encounter ED Notes Historical Provider - 07/10/2014 5:17 AM CST eMERGENCY dEPARTMENT eNCOUnter ED COURSE & MEDICAL DECISION MAKING Pertinent Labs & Imaging studies reviewed. (See chart for details) Patient arrived with mild tachycardia, pleuritic discomfort and influenza like symptoms. She has used nebulizers in the past. Given the timing of her symptoms (about 20 hours) I did obtain a single troponin and this is within normal limits. My suspicion for ACS as the primary cause of this is low. Because of the pleuritic nature of the discomfort I did obtain PE scan which did not show embolus. EKG does not show any significant ST depression or elevation. With this negative work up and her stated symptoms I suspect influenza like illness. Because of the timing of her symptoms and her history of using beta agonists I did discuss Tamiflu with the patient and she would like this prescription. She will plan to follow up with her primary care provider int he next week with return to the ED if her symptoms worsen or new symptoms develop. CHIEF COMPLAINT Chief Complaint Patient presents with ??? Flu Symptoms since last night HPI Becki Ridley is a 59 y.o. female who presents for evaluation of fever, body aches and cough as well as pleuritic chest discomfort. This has been going on for approximately 20 hours. She has no abdominal pain. She has no breast pain. PAST MEDICAL HISTORY No past medical history on file. SURGICAL HISTORY No past surgical history on file. CURRENT MEDICATIONS No current facility-administered medications on file prior to encounter. No current outpatient prescriptions on file prior to encounter. ALLERGIES Allergies Allergen Reactions ??? Ciprofloxacin Shortness Of Breath ??? Codeine Shortness Of Breath ??? Darvocet A500 [Propoxyphene N-Acetaminophen] Shortness Of Breath ??? Vicodin [Hydrocodone-Acetaminophen] Shortness Of Breath FAMILY HISTORY No family history on file. SOCIAL HISTORY History Social History ??? Marital Status: Unknown Spouse Name: N/A Number of Children: N/A ??? Years of Education: N/A Occupational History ??? Not on file. Social History Main Topics ??? Smoking status: Not on file ??? Smokeless tobacco: Not on file ??? Alcohol Use: Not on file ??? Drug Use: Not on file ??? Sexual Activity: Not on file Other Topics Concern ??? Not on file Social History Narrative ??? No narrative on file REVIEW OF SYSTEMS General: Denies fevers, sweats, or chills Head: Denies headache Eyes: Denies blurry vision or double vision Throat: Denies voice change Chest: Denies chest pain or palpitations Resp: Denies shortness of breath or cough Abdomen: Denies abdominal pain, diarrhea, or vomiting Neuro: Denies confusion or headache Extremities: Denies extremity swelling Skin: Denies rash All systems negative except as marked. PHYSICAL EXAM VITAL SIGNS: Filed Vitals: 07/10/14 0749 BP: 98/51 Pulse: 82 Temp: Resp: 14 SpO2: 94% General: no apparent distress Head: Normal cephalic, atraumatic Eyes: No scleral icterus, extra ocular muscles intact Chest: No respiratory distress, equal chest expansion Abdomen: Soft, non tender and non distended Skin: No apparent rashes, warm Neurology: Alert, oriented x4, CN 2-12 intact Extremities: Full range of motion of upper and lower extremities, no edema Psych: Normal affect and insight LABS Results for orders placed during the hospital encounter of 07/10/14 INFLUENZA A/B RAPID TEST Result Value Range Influenza A, Rapid Antigen No Influenza A antigen detected No Influenza A antigen detected Influenza B, Rapid Antigen No Influenza B antigen detected No Influenza B antigen detected TROPONIN I Result Value Range Troponin I <0.01 0.00-0.29 ng/mL BASIC METABOLIC PANEL Result Value Range Sodium 140 136-145 mmol/L Potassium 3.9 3.5-5.0 mmol/L Chloride 106 98-107 mmol/L CO2 23 22-31 mmol/L Anion Gap, Calculation 11 5-18 mmol/L Glucose 182 (*) 70-125 mg/dL Calcium 9.2 8.5-10.5 mg/dL BUN 10 8-22 mg/dL Creatinine 0.77 0.60-1.10 mg/dL GFR MDRD Af Amer >60 >60 mL/min/1.73m2 GFR MDRD Non Af Amer >60 >60 mL/min/1.73m2 EKG Ventricular rate 95. Normal sinus rhythm. Mild T-wave flattening in lateral leads. RADIOLOGY CTA CHEST Final Result: CONCLUSION: 1. There is no evidence for aortic dissection or aneurysm. There is a probable ductus pump in the thoracic aorta. 2. No evidence for pulmonary embolus. The lungs are clear. Florecita Quiles MD 07/26/14 0201 Florecita Quiles MD 08/22/14 2305 documented in this encounter Plan of Treatment Upcoming Encounters Date Type Specialty Care Team Description 05/19/2022 Office Visit [facility] [address] [facility] [place] [place] [address] (Wo rk) 08/02/2022 Office Visit Neurology Yair Campos MD [address] [facility] [place], [place] [phone] (Wo rk) documented as of this encounter Procedures Procedure Name Priority Date/Time Associated Diagnosis Comme nts CTA CHEST WITH Routine 07/10/2014 6:54 AM Results for this CONTRAST MANAGER DIGITAL procedure are i n the results section. ECG 12-LEAD WITH STAT 07/10/2014 5:00 AM Resul ts for this MUSE ? MANAGER DIGITAL procedure are in [facility] the results section. documented in this encounter Results CTA Chest with Contrast (07/10/2014 6:54 AM MANAGER DIGITAL) Anatomical Region Laterality Modality Chest, SUBRAD IR PROCEDURE, UMP CT CTA, RAD CT Computed Tomography Specimen (Source) Anatomical Location Collection Method / Collectio n Time Received Time / Laterality Volume Impressions 07/10/2014 7:19 AM MANAGER DIGITAL CONCLUSION: 1. ??There is no evidence for aortic dis section or aneurysm. There is a probable ductus pump in the thoracic aorta. 2. ??No evidence for pulmonary embolus. The lungs are clear. Narrative 07/10/2014 7:19 AM MANAGER DIGITAL CTA CHEST 07/10/2014 6:54 AM INDICATION: Brief episode of stabbing ch est pain. TECHNIQUE: Helical acquisition through t he chest was performed during the arterial phase of contrast enhancement using IV contrast. 2D and 3D reconstructions were performed by the sand technologist. IV CONTRAST: 100 ml Omni 350 COMPARISON: None. FINDINGS: ANGIOGRAM CHEST: There is no evidence fo r thoracic aortic aneurysm or thoracic aortic dissection. There is a probable ductus bump along the inferior aspect of the aortic arch. There is no evidence for p ulmonary embolus. The right brachiocepha lic, left common carotid and left subclavian arter ies appear widely patent. There is probable motion artifact in the main pulmonary artery. LUNGS AND PLEURA: There is no pneumothor ax or pleural effusion. The lungs are clear of focal infiltrates. No pulmonary nodules or masses are seen. MEDIASTINUM: There is no mediastinal or hilar lymphadenopathy. There is no pericardial effusion. There is some coronary artery calcification. There is mediastinal fat which could simulate mediastinal wi dening chest radiograph. The visualized thyroid is unremarkable. There are fatty replaced b enign lymph nodes in the axillae. LIMITED UPPER ABDOMEN: There is no evide nce for abdominal aortic aneurysm or abdominal aortic dissection. The celiac axis and superior mesenteric arteries appear widely patent. There are single renal ar teries bilaterally without evidence for significant stenosis. There is diffuse fatty infiltr ation of liver no focal hepatic abnormality. The spleen, pancreas, adrenal glands and kidneys are normal. There is no evidence for bowel obstruction or free intraperitoneal air. No evidence for appendicitis. No pelvic masses or free fluid. Probable small cyst in the right ovary. No evidence for diverticulitis or abscess. MUSCULOSKELETAL: Negative. Procedure Note Osito Paredes MD - 12/19/2020Fo rmatting of this note might be different from the original. CTA CHEST 07/10/2014 6:54 AM INDICATION: Brief episode of stabbing ch est pain. TECHNIQUE: Helical acquisition through t he chest was performed during the arterial phase of contrast enhancement using IV contrast. 2D and 3D reconstructions were performed by the sand technologist. IV CONTRAST: 100 ml Omni 350 COMPARISON: None. FINDINGS: ANGIOGRAM CHEST: There is no evidence fo r thoracic aortic aneurysm or thoracic aortic dissection. There is a probable ductus bump along the inferior aspect of the aortic arch. There is no evidence for pulmonary embolus. The right brachiocephalic, left common carotid and left subclavian arter ies appear widely patent. There is probable motion artifact in the main pulmonary artery. LUNGS AND PLEURA: There is no pneumothor ax or pleural effusion. The lungs are clear of focal infiltrates. No pulmonary nodules or masses are seen. MEDIASTINUM: There is no mediastinal or hilar lymphadenopathy. There is no pericardial effusion. There is some coronary artery calcification. There is mediastinal fat which could simulate mediastinal widening chest radiograph. The visualized thyroid is unremarkable. There are fatty replaced b enign lymph nodes in the axillae. LIMITED UPPER ABDOMEN: There is no evide nce for abdominal aortic aneurysm or abdominal aortic dissection. The celiac axis and superior mesenteric arteries appear widely patent. There are single renal arteries bilaterally without evidence for significant stenosis. There is diffuse fatty infiltr ation of liver no focal hepatic abnormality. The spleen, pancreas, adrenal glands and kidneys are normal. There is no evidence for bowel obstruction or free intraperitoneal air. No evidence for appendicitis. No pelvic masses or free fluid. Probable small cyst in the right ovary. No evidence for diverticulitis or abscess. MUSCULOSKELETAL: Negative. IMPRESSION: CONCLUSION: 1. There is no evidence for aortic disse ction or aneurysm. There is a probable ductus pump in the thoracic aorta. 2. No evidence for pulmonary embolus. Th e lungs are clear. Historical Provider IMG CT ORDERABLES ECG 12-LEAD WITH MUSE (LHE) (07/10/2014 5:00 AM MANAGER DIGITAL) Component Value Ref Range Test Analysis Performed Pathologis t Method Time At Signature Systolic Blood mmHg 07/11/2014 Pressure 1:26 PM MANAGER DIGITAL Diastolic Blood mmHg 07/11/2014 Pressure 1:26 PM MANAGER DIGITAL Ventricular Rate 95 BPM 07/11/2014 1:26 PM MANAGER DIGITAL Atrial Rate 95 BPM 07/11/2014 1:26 PM MANAGER DIGITAL DE Interval 140 ms 07/11/2014 1:26 PM MANAGER DIGITAL QRS Duration 80 ms 07/11/2014 1:26 PM MANAGER DIGITAL QT 320 ms 07/11/2014 1:26 PM MANAGER DIGITAL QTc 402 ms 07/11/2014 1:26 PM MANAGER DIGITAL P [place] 44 degrees 07/11/2014 1:26 PM MANAGER DIGITAL R AXIS 11 degrees 07/11/2014 1:26 PM MANAGER DIGITAL T [place] 38 degrees 07/11/2014 1:26 PM MANAGER DIGITAL Interpretation . 07/11/2014 ECG Normal sinus rhythm 1:26 PM MANAGER DIGITAL Nonspecific T wave abnormality Abnormal ECG No previous ECGs available Confirmed by ELSI ??, MOOKIE LOC:JN ([id number]) on 07/11/2014 1: 26:17 PM Specimen (Source) Anatomical Collection Method Collection Time Re ceived Time Location / / Volume Laterality 07/10/2014 5:00 AM MANAGER DIGITAL Florecita Quiles MD ECG ORDERABLES Performing Organization Address City/State/ZIP Code Phon e Number HE CARDIOLOGY CONVERSION documented in this encounter Visit Diagnoses Diagnosis Influenza-like illness Influenza with other respiratory manifes tations documented in this encounter Care Teams Circulating Nurse Relationship Specialty Start Date End Date Haroldo Valentino MD PCP - General Internal Medicine 05/26/14 10/17/[address] [address] documented as of this encounter
--- OUTSIDE RECORDS SUMMARY | 2022-05-09 11:07 | XMS_ITS | Encounter Summary ---
:1955 Author Organization [place] Address [address] [place] [address]. [place] [address] Care Team Providers Name Role Phone Aleks Lopez MD Primary Care Provider Reason for Visit Reason Onset Date Comments Diabetes Education 04/10/2012 Encounter Details Date Type Department Care Team Description 04/10/2012 Telephone Diabetes Education Miriam Hobbs Diabetes Education [facility] [address] [facility] [address] [place] [address] [place], [place] [phone] (Wo rk) [address] [phone] Social History Tobacco Use Types Packs/Day Years Used Date Smoking Tobacco: Never Smokeless Tobacco: Never Alcohol Use Standard Drinks/Week Comments No 0 (1 standard drink = 0.6 oz pure alcoho l) Sex Assigned at Date Recorded Female 08/17/2018 10:39 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
--- OUTSIDE RECORDS SUMMARY | 2022-05-09 11:07 | XMS_ITS | Encounter Summary ---
:1955 Author Organization [place] Address [address] [place] [address]. [place] [address] Care Team Providers Name Role Phone Aleks Lopez MD Primary Care Provider Reason for Visit Reason Onset Date Comments Diabetes Education 04/10/2012 Encounter Details Date Type Department Care Team Description 04/10/2012 Telephone Diabetes Education Miriam Hobbs Diabetes Education [id number] [place] [address] (Wo rk) [address] [phone] Social History Tobacco Use Types Packs/Day Years Used Date Smoking Tobacco: Never Smokeless Tobacco: Never Alcohol Use Standard Drinks/Week Comments No 0 (1 standard drink = 0.6 oz pure alcoho l) Sex Assigned at Date Recorded Female 08/17/2018 10:39 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 documented in this encounter Plan of Treatment Upcoming Encounters Date Type Specialty Care Team Description 05/19/2022 Office Visit ENT Dima Hidalgo M D [address] [place] [address] (Wo rk) 08/02/2022 Office Visit Neurology Yair Campos MD [address] [place] [address] (Wo rk) documented as of this encounter Visit Diagnoses Not on filedocumented in this encounter Care Teams Toe Former Relationship Specialty Start Date End Date Aleks Lopez MD PCP - General 10/04/11 05/25/14 documented as of this encounter
--- OUTSIDE RECORDS SUMMARY | 2022-05-09 11:07 | XMS_ITS | Encounter Summary ---
:1955 Author Organization [place] Address [facility] 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 Exam px was 3 months ago - Dr Carl Lopez Encounter Details Date Type Department Care Team Description 08/22/2013 Office Visit [facility] Gaby Bradshaw Screening for malignant neoplasm of the cervix (Primary Dx); Lola Yen MD Breast cancer screening; [address] [employer] [address] [place] [address] Vaginal itching RUPESH Davila [address] [facility] [phone] RUPESH DAVILA [address] Social History Tobacco Use Types Packs/Day Years Used Date Smoking Tobacco: Never Smokeless Tobacco: Never Alcohol Use Standard Drinks/Week Comments No 0 (1 standard drink = 0.6 oz pure alcoho l) Sex Assigned at Date Recorded Female 08/17/2018 10:39 PM PRINTING SCREEN ASSEMBLER documented as of this encounter Last Filed Vital Signs Vital Sign Reading Time Taken Comments Blood Pressure 124/68 08/22/2013 10:15 AM PRINTING SCREEN ASSEMBLER Pulse 76 08/22/2013 10:15 AM PRINTING SCREEN ASSEMBLER Temperature 36.9 ??C (98.4 ??F) 08/22/2013 10:15 AM PRINTING SCREEN ASSEMBLER Respiratory Rate - - Oxygen Saturation - - Inhaled Oxygen Concentration - - Weight 93.3 kg (205 lb 11.2 oz) 08/22/2013 10:15 AM PRINTING SCREEN ASSEMBLER Height 158.1 cm (5' 2.25) 08/22/2013 10:15 AM PRINTING SCREEN ASSEMBLER Body Mass Index 37.32 08/22/2013 10:15 AM PRINTING SCREEN ASSEMBLER documented in this encounter Patient Instructions Patient InstructionsCamGayb walker MD - 08/22/2013 10:39 AM CST Screening for malignant neoplasm of the cervix -PAP test Breast cancer screening -mammogram referral Vaginal itching -check wet prep for yeast infection Please check with Dr. Lopez when your last colonoscopy was. Recommend dermatology visit. Gaby Rico MD Internal Medicine/Pediatrics [facility] TING SCREEN ASSEMBLER documented in this encounter Progress Notes Gaby Rico MD - 08/22/2013 10:21 AM CST SUBJECTIVE: Becki Ridley is a 58 year old female who presents to clinic today for the following health issues: Breast exam and pap smear only - px was done 3 months ago with PCP Patient denies any breast lump or nipple discharge. She does have vaginal itching x several days forwhich she has been using OTC creams. She would like to be tested for a yeast infection. She thinks previous PAP 3-4 years ago, normal per patient. Has had colonoscopy in the past, unsure when-normal. Denies abd pain cramping or unusual vaginal bleeding. Problem list and histories reviewed & adjusted, as indicated. Additional history: as documented Problem list, Medication list, Allergies, and Medical/Social/Surgical histories reviewed in [facility] andupdated as appropriate. ROS: C: NEGATIVE for fever, chills E/M: NEGATIVE for ear, mouth and throat problems R: NEGATIVE for significant cough or SOB CV: NEGATIVE for chest pain, palpitations OBJECTIVE: BP 124/68 Pulse 76 Temp 98.4 ??F (36.9 ??C) (Oral) Ht 5' 2.25 (1.581 m) Wt 205 lb 11.2 oz (93.305 kg) BMI 37.33 kg/m2 Body mass index is 37.33 kg/(m^2). GENERAL: healthy, alert, well nourished, well hydrated, no distress RESP: lungs clear to auscultation - no rales, no rhonchi, no wheezes CV: regular rates and rhythm, normal S1 S2, no S3 or S4 and no murmur, no click or rub - BREAST: symmetric, no palp lumps or tenderness : normal vaginal mucosa, cervix visualized normal ASSESSMENT/PLAN: Screening for malignant neoplasm of the cervix -PAP test Breast cancer screening -mammogram referral Vaginal itching -check wet prep for yeast infection Please check with Dr. Lopez when your last colonoscopy was. Recommend dermatology visit. She would like to go to where her sister goes, declines referral. Gaby Rico MD Internal Medicine/Pediatrics [facility] TING SCREEN ASSEMBLER documented in this encounter Nursing Notes 08/22/2013 10:00 AM CST >> BEL GARCÍA Lorena Aug 22, 2013 11:[address] Lopez, declines to sign ANTWAN mammo ordered Colonoscopy- date unsure but UTD UTD on flu and TDAP unsure of dates Patient presents with: School Services Officer Exam - px was 3 months ago - Dr Aleks Lopez Initial BP 124/68 Pulse 76 Temp 98.4 ??F (36.9 ??C) (Oral) Ht 5' 2.25 (1.581 m) Wt 205 lb 11.2 oz (93.305 kg) BMI 37.33 kg/m2 Estimated Body mass index is 37.33 kg/(m^2) as calculated from the following: Height as of this encounter: 5' 2.25(1.581 m). Weight as of this encounter: 205 lb 11.2 oz(93.305 kg). BP completed using cuff size: large Bel García CMA documented in this encounter Plan of Treatment Upcoming Encounters Date Type Specialty Care Team Description 05/19/2022 Office Visit ENT Dima Hidalgo M D [address] [place], [place] [address] (Wo rk) 08/02/2022 Office Visit Neurology Yair Campos MD [address] [place] [address] (Wo rk) documented as of this encounter Procedures Procedure Name Priority Date/Time Associated Comments Diagnosis WET PREPARATION Routine 08/22/2013 10:53 Vaginal itching Resul ts for this AM PRINTING SCREEN ASSEMBLER procedure are i n the results section. PAP IMAGED THIN LAYER Routine 08/22/2013 12:00 Screening for R esults for this SCREEN AM PRINTING SCREEN ASSEMBLER malignant neoplasm procedure are in of the cervix the results section. documented in this encounter Results Wet prep (08/22/2013 10:53 AM PRINTING SCREEN ASSEMBLER) Patholo gist Method Time Signature Specimen Vagina [facility] Description CLINICS [facility] Wet Prep No Trichomonas seen [facility] No yeast seen CLINICS No clue cells seen [place] Micro Report FINAL SEN[facility] Status 08/22/2013 CLINICS [facility] Specimen Anatomical Collection Method Collection Time Receive d Time (Source) Location / / Volume Laterality 08/22/2013 10:53 08/22/2013 AM PRINTING SCREEN ASSEMBLER 10:54 AM PRINTING SCREEN ASSEMBLER Gaby Bradshaw MD LAB - MICRO GENERAL ORDERABL ES Performing Organization Address City/State/ZIP Code Phon e Number [facility] [address] [place] [phone] PAP imaged thin layer, screen (08/22/2013 12:00 AM PRINTING SCREEN ASSEMBLER) Component Value Ref Test Analysis Performed At Patholo gist Range Method Time Signature PAP NIL [place] Copath Report [place] Patient Name: BECKI RIDLEY MR#: [id number] Specimen #: [id number] Collected: 08/22/2013 Received: 08/23/2013 Reported: 08/26/2013 11:18 Ordering Phy(s): GABY RICO SPECIMEN/STAIN PROCESS: Pap imaged thin layer prep screening (Surepath, FocalPoint w ith guided screening) ? Pap-Cyto x 1, Reflex HPV if ASCUS/LSIL x 1 SOURCE: Cervical, endocervical ---- Pap imaged thin layer prep screening (Surepath, FocalPoint with guided screening) SPECIMEN ADEQUACY: Satisfactory for evaluation. -Transformation zone component absent. CYTOLOGIC INTERPRETATION: Negative for Intraepithelial Lesion or Malignancy Electronically signed out by: CHEMA Last ( ASCP) Processed and screened at [facility] Ce tanisha [facility] CLINICAL HISTORY: Post Menopausal, Papanicolaou Test Limitations: ??Cervical cytology is a scre ening test with limited sensitivity; regular screening is critical for cancer prevention; Pap tests are primarily effective for the diagnosis/prevention of squamous cell carcinoma, not adenoca rcinomas or other cancers. TESTING LAB LOCATION: [facility] [address] Semaj Vogel [place], [place] ??[address] COLLECTION SITE: Client: ??[facility] Location: [facility] (R) Specimen (Source) Anatomical Collection Method Collection Time Re ceived Time Location / / Volume Laterality Cytologic 08/22/2013 08/23/2013 11:1 2 material AM PRINTING SCREEN ASSEMBLER (specimen) Gaby Bradshaw MD LAB - OPTIME CLINICAL SPECIM EN Performing Organization Address City/State/ZIP Code Phon e Number [place] documented in this encounter Visit Diagnoses Diagnosis Screening for malignant neoplasm of the cervix - Primary Breast cancer screening Breast screening, unspecified Vaginal itching Pruritus of genital organs documented in this encounter Care Teams Professor Of Forestry Relationship Specialty Start Date End Date Aleks Lopez MD PCP - General 10/04/11 05/25/14 documented as of this encounter
--- OUTSIDE RECORDS SUMMARY | 2022-05-09 11:08 | XMS_ITS | Encounter Summary ---
:1955 Author Organization [facility] Address [address] [facility] 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 documented as of this encounter Plan of Treatment Upcoming Encounters Date Type Specialty Care Team Description 05/19/2022 Office Visit ENT Dima Hidalgo M D [address] [facility] [place], [place] [address] (Wo rk) 08/02/2022 Office Visit Neurology Yair Campos MD [address] [place] [phone] (Wo rk) documented as of this encounter Visit Diagnoses Diagnosis Subclinical hypothyroidism - Primary Other specified acquired hypothyroidism documented in this encounter Care Teams Kosher Sealer Relationship Specialty Start Date End Date Aleks Lopez MD PCP - General 10/04/11 05/25/14 documented as of this encounter
--- OUTSIDE RECORDS SUMMARY | 2022-05-09 11:08 | XMS_ITS | Encounter Summary ---
:1955 Author Organization [place] Address [facility] [place] [address] Care Team Providers Name Role Phone Aleks Lopez MD Primary Care Provider Reason for Visit Reason Onset Date Comments Refill Request 09/19/2011 Encounter Details Date Type Department Care Team Description 09/19/2011 Refill Pulmonary Yue Rangel MD Refill Request 3rd Floor, Clinic [address] [place], [place] 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
--- OUTSIDE RECORDS SUMMARY | 2022-05-09 11:08 | XMS_ITS | Encounter Summary ---
:1955 Author Organization [place] Address [address] [facility] [place] [address] Care Team Providers Name Role Phone Aleks Lopez MD Primary Care Provider Reason for Visit Mental Health Outpatient (Routine) - Closed Specialty Diagnoses / Procedures Referred By Contact Refer red To Contact Behavioral Health Procedures Ur Senior Op Ur Senior Op [address]+ [address] [place] [phone] Fax: Referral ID Status Reason Start Date Expiration Date Visits Requ ested Visits Authorized [id number] Closed 11/09/2011 05/07/2012 35 35 Encounter Details Date Type Department Care Team Description 11/30/2011 Hospital Encounter [facility] XXX RETIRED XXX [address] [place] [address] [phone] Social History Tobacco Use Types Packs/Day Years Used Date Smoking Tobacco: Never Smokeless Tobacco: Never Alcohol Use Standard Drinks/Week Comments No 0 (1 standard drink = 0.6 oz pure alcoho l) Sex Assigned at Date Recorded Female 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 ACCU-CHEK MULTICLIX test twice daily. 0 1 08/17/2018 LANCETS MISC albuterol (PROAIR HFA) Inhale 4 puffs into 0 04/03/2012 108 (90 BASE) MCG/ACT the lungs every 6 inhaler hours as needed. Albuterol Sulfate Inhale 2 puffs into 0 1 10/10/2017 (VENTOLIN HFA) 108 (90 the lungs 4 times BASE) MCG/ACT AERS daily as needed. armodafinil (NUVIGIL) 250 Take 250 mg by mouth 0 02/19/2015 MG TABS every morning. busPIRone (BUSPAR) 5 MG Take 5 mg by mouth 0 08/17/2018 tablet daily busPIRone (BUSPAR) 5 MG Take 1 tablet by 0 04/03/2012 tablet mouth 2 times daily. cetirizine (ZYRTEC) 10 MG Take 1 tablet by 90 tablet 3 07/1808/17/2018 tabletIndications: mouth daily as Asthma, Hives needed. For hives cetirizine HCl (ZYRTEC) Take 1 tablet by 0 201104/03/2012 10 MG CHEW mouth daily. Desvenlafaxine Succinate Take by mouth daily. 0 04/03/2012 (PRISTIQ) 100 MG TB24 24 hr tablet Desvenlafaxine Succinate Take 1 tablet by 0 02/19/2015 (PRISTIQ) 100 MG TB24 24 mouth daily. hr tablet fexofenadine (JOSSY) Take 180 mg by mouth 0 04/03/2012 180 MG tablet daily. fexofenadine (JOSSY) Take 1 tablet by 90 tablet 3 012 05/26/2015 180 MG tabletIndications: mouth daily as Hives, Asthma needed. For hives fluticasone-salmeterol Inhale 1 puff into 0 08/17/2018 (ADVAIR DISKUS) 500-50 the lungs every 12 MCG/DOSE diskus inhaler hours. furosemide (LASIX) 20 MG Take 1 tablet by 0 08/17/2018 tablet mouth 2 times daily. glucose blood test Test twice daily. 1 Box 12 011 08/17/2018 strips (ACCU-CHEK COMPACT TEST DRUM) strip ibuprofen (ADVIL,MOTRIN) Take 400 mg by mouth 0 05/26/2014 200 MG tablet every 4 hours as needed. Insulin Pen Needle (B-D 1 Box See Admin 1 Box 11 012 04/01/2015 U/F PEN NEEDLE) Instructions. Use needleIndications: DM once a day. type 2 (diabetes mellitus, type 2) (H) levothyroxine (SYNTHROID, Take 1 tablet by 90 tablet 3 02/1403/21/2012 LEVOTHROID) 25 MCG mouth daily. tabletIndications: DISPENSE Subclinical LEVOTHYROXINE ONLY hypothyroidism liraglutide (VICTOZA) 18 Inject Subcutaneous 0 04/03/2012 MG/3ML SOLN daily. liraglutide (VICTOZA) 18 Inject 1.8 mg 27 mL 3 09/05/19 12 04/17/2012 MG/3ML SOLNIndications: Subcutaneous daily. DM type 2 (diabetes mellitus, type 2) (H), Drug-induced obesity Memantine HCl (NAMENDA Take as directed. 0 04/01/2015 TITRATION KITTY) 5 (28)-10 (21) MG TABS MetFORmin (GLUCOPHAGE) Take 500 mg by mouth 0 08/16/2016 500 MG tablet 2 times daily (with meals). methylprednisoLONE Take by mouth See 1 Package 0 10/04/2011 04/03/2012 (MEDROL DOSEPACK) 4 MG Admin Instructions. tablet Follow package directions. mometasone (NASONEX) 50 2 sprays by Both 0 04/03/2012 MCG/ACT nasal spray Nostrils route daily. mometasone (NASONEX) 50 1 spray by Both 0 08/16/2018 MCG/ACT nasal spray Nostrils route every 12 hours. montelukast (SINGULAIR) Take 10 mg by mouth 0 04/03/2012 10 MG tablet At Bedtime. montelukast (SINGULAIR) Take 1 tablet by 0 08/17/2018 10 MG tablet mouth daily. omeprazole (PRILOSEC) 20 Take 20 mg by mouth 0 04/03/2012 MG capsule daily (with dinner). omeprazole (PRILOSEC) 20 Take 1 capsule by 90 capsule 3 11/201106/30/2015 MG capsuleIndications: mouth daily. Asthma Potassium Gluconate 595 Take 1 tablet by 0 201008/17/2018 MG TABS mouth 2 times daily. predniSONE (DELTASONE) 20 Patient takes burst 0 10/18/2014 MG tablet and then taper down. rOPINIRole (REQUIP) 0.5 Take 0.5 mg by mouth 0 04/03/2012 MG tablet 3 times daily. ropinirole (REQUIP) 0.5 Take 1 tablet by 0 05/26/2015 MG tablet mouth At Bedtime. tramadol (ULTRAM) 50 MG Take 1 tablet by 0 08/22/2013 tablet mouth 3 times daily as needed. documented as of this encounter Plan of Treatment Upcoming Encounters Date Type Specialty Care Team Description 05/19/2022 Office Visit ENT Dima Hidalgo M D [address] [place], [place] [address] (Wo rk) 08/02/2022 Office Visit Neurology Yair Campos MD [address] [place] [address] (Wo rk) documented as of this encounter Visit Diagnoses Not on filedocumented in this encounter Care Teams Tile Classifier Relationship Specialty Start Date End Date Aleks Lopez MD PCP - General 10/04/11 05/25/14 documented as of this encounter
--- OUTSIDE RECORDS SUMMARY | 2022-05-09 11:08 | XMS_ITS | Encounter Summary ---
:1955 Author Organization [place] Address [address] [facility] [place] [address] Care Team Providers Name Role Phone Aleks Lopez MD Primary Care Provider Reason for Visit Mental Health Outpatient (Routine) - Closed Specialty Diagnoses / Procedures Referred By Contact Refer red To Contact Behavioral Health Procedures Ur Senior Op Ur Senior Op [address]+ [address] [place] [phone] Fax: Referral ID Status Reason Start Date Expiration Date Visits Requ ested Visits Authorized [id number] Closed 11/09/2011 05/07/2012 35 35 Encounter Details Date Type Department Care Team Description 11/21/2011 Hospital Encounter [facility] Mag [facility] & MD [facility] XXX RETIRED XXX [address] [place], [place] [address] [phone] Social History Tobacco Use Types Packs/Day Years Used Date Smoking Tobacco: Never Smokeless Tobacco: Never Alcohol Use Standard Drinks/Week Comments No 0 (1 standard drink = 0.6 oz pure alcoho l) Sex Assigned at Date Recorded Female 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 documented as of this encounter Progress Notes Katelynn Bernal LICSW - 11/21/2011 5:12 PM CDT Group Therapy Progress Notes Area of Treatment Focus: Symptom Management Therapeutic Interventions/Treatment Strategies: Feedback, Limit/Boundaries, Structuresd Activity, Problem Solving, Clarification and Education Response to Treatment Strategies: Accepted Feedback, Listened, Attentive and Alert Name of Group: Mental health management Progress Note First day for client. She was active participant in topic discussion on self sabotaging. She reports she feels humiliated by her current condition (depression and cognitive difficulties) as she was the one in the family that everyone went to for help. 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 She plans to have her sister come to her next psychologist appoint in order for therapist to explain neuropsychological test results to sister, as she states she feels her siblings are in denial about her condition. She tries to make a lot of notes for herself to assist in her memory. She offered support to others, she is reaching out for help. Is this a Weekly Review of the Progress on the Treatment Plan? No Alta Medina - 11/21/2011 12:13 PM CDT Group Therapy Progress Notes Area of Treatment Focus: Symptom Management Therapeutic Interventions/Treatment Strategies: Education Response to Treatment Strategies: Listened, Attentive Name of Group: EDYTA MCCRAY Progress Note Client participated in a psychoeducational group on coping strategies for anxiety. Client was 20 minutes late to group. Is this a Weekly Review of the Progress on the Treatment Plan? No documented in this encounter Plan of Treatment Upcoming Encounters Date Type Specialty Care Team Description 05/19/2022 Office Visit ENT Dima Hidalgo M D [address] [place], [place] [address] (Wo rk) 08/02/2022 Office Visit Neurology Yair Campos MD [address] [place] [phone] (Wo rk) documented as of this encounter Visit Diagnoses Not on filedocumented in this encounter Care Teams Kindergarten Classroom Teacher Relationship Specialty Start Date End Date Aleks Lopez MD PCP - General 10/04/11 05/25/14 documented as of this encounter
--- OUTSIDE RECORDS SUMMARY | 2022-05-09 11:08 | XMS_ITS | Encounter Summary ---
:1955 Author Organization [place] Address [address] [facility] [place] [address] Care Team Providers Name Role Phone Aleks Lopez MD Primary Care Provider Reason for Visit Mental Health Outpatient (Routine) - Closed Specialty Diagnoses / Procedures Referred By Contact Refer red To Contact Behavioral Health Procedures Behavioral Intake Ur Senior Op dx eval 55+ [address] [facility] [address] [place] [address] [address] [place] [address] Phone: Fax: Referral ID Status Reason Start Date Expiration Date Visits Requ ested Visits Authorized [id number] Closed 10/26/2011 04/23/2012 1 1 Encounter Details Date Type Department Care Team Description 11/01/2011 Hospital Encounter [facility] Mental Page s, Yellow yellow pages [facility] & Addiction Mansoor, MD [facility] [address] [place] [address] Social History Tobacco Use Types Packs/Day Years Used Date Smoking Tobacco: Never Smokeless Tobacco: Never Alcohol Use Standard Drinks/Week Comments No 0 (1 standard drink = 0.6 oz pure alcoho l) Sex Assigned at Date Recorded Female 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
Documentation filed: Inpatient Notes Varsha Cannon LICSW - 11/01/2011 2:09 PM CDT Diagnostic Assessment Update 55+ Outpatient Program (55+) Patient: Becki Mackey [facility] : 1955 Age: [age] year old Sex: female Race/Ethnicity: Address: [address] [place] [phone] [facility] (cell) Mobile Phone: No relevant phone numbers on file. May leave program related message? Yes Provider that referred you: John Interview Date & Time: 11/01/11 1. Current Stressors/Current Symptoms/Reason for Referral (include recent losses and disappointmentsi.e. , divorce, breakup of a relationship, financial, job loss, job changes, etc.) No change- Sad mood, tearfulness, despairing, mood swings, social isolation/withdrawing, feelings of worthlessness, feelings of guilt, disturbed sleep pattern- hard to fall and stay asleep, low energy/fatigue, excessive or constant worry, restlessness, difficulty concentrating, racing thoughts, decreased sleep Since interviewed on 2010 byAnibal Cannon What has changed in the following areas? 2. Hospitalizations: ER visit in September Commitments: no 3. Changes in Mental Health Provider: Dr. Paiz did a neuropsych eval. 4. Have you ever thought about suicide now or in the past? What were your thoughts about suicide? constant SI Are you having thoughts of suicide now? No Do / Did you have a plan? Yes. knife, bridge What would stop / delay your plan? what is the least suffering? Do you have a gun or other weapon available to you? No 5. Harm to Self or Others: no 6. Chemical Use/Abuse/Dependency History: This client is not being assessed for the MICD Treatment Program. CAGE-AID: Have you ever felt you ought to cut down on your drinking or drug use? No Have people annoyed you by criticizing your drinking or drug use? No Have you ever felt bad or guilty about your drinking or drug use? No Have you ever had a drink or used drugs first thing in the morning to steady your nerves or to get rid of a hangover? No Do you feel these issues have been adequately addressed? Yes. How? Has no history of ever using Chemical Dependency Assessment Recommended? No 7. Current Living Situation: [place] for 5 years- house with Mom who has TIA's and beginning of dementia- is owning it 8. 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 Baptism Preference/Spiritual Beliefs/Cultural Considerations: Non-bahai Ethnic Self-Identification: Is Cultural Bias a Stressor? No Are there certain behaviors or practices that must be avoided in addressing your health needs? Chemical sensitivity, exercise, mowing grass= all will trigger an asthma attack Do members of your family have different beliefs about what is needed to address your health needs? Not involved Do you have any confucianist or spiritual traditions that you are connected to? [place] and Bible reading What interventions and strategies would be helpful to you while you are in our program? Heal what is wrong with me physically Talk therapy Change my thinking patterns Use my spiritual practices Work with my confucianist or spiritual community 10. Family Relationships: Has a good relationship with everyone in her family. Has one sister and three brothers, one daughter, and lives with her mother who is having TIa's and has beginning dementia. twice. Not currently in a relationship. 11. Legal Involvement: Is this an MICD referral? No. 12. Strengths: caring, committed to sobriety, creative, educated, empathetic, goal-focused, good listener, has a previous history of therapy, insightful, intelligent, motivated, open to learning, open to suggestions / feedback, responsible parent, support of family, friends and providers, supportive, wants to learn,willing to ask questions, willing to relate to others and work history Vulnerabilities: Suicidal Ideation Anxiety with/without panic attacks Depressive symptoms Learning barrier Physical/medical 13. Client's Treatment Goals/Discharge Goals : 1) come to an understanding of why learning and memory are difficult now. 2) understand why I am getting hives all the time. 3)learn to manage the depression and anxiety at a better level 4) make an aftercare plan for structure. Consider art class or selling or music 14. Additional Client / Family Comments: 15. Have there been any changes in your physical health status? Include concerns about pain, nutrition, head injury, recent diagnostic testing. Yes-liver biopsy results Possibility of ? No 16. Any new allergies or adverse drug reactions? no 17. When did you last see the doctor prescribing medications for your mental health? One month ago When is your next appointment? This week 18. Current medications Current outpatient prescriptions Medication Sig ??? omeprazole (PRILOSEC) 20 MG capsule Take 20 mg by mouth daily (with dinner). ??? liraglutide (VICTOZA) 18 MG/3ML SOLN Inject Subcutaneous daily. ??? cetirizine HCl (ZYRTEC) 10 MG CHEW Take 1 tablet by mouth daily. ??? fexofenadine (JOSSY) 180 MG tablet Take 180 mg by mouth daily. ??? Desvenlafaxine Succinate (PRISTIQ) 100 MG TB24 24 hr tablet Take by mouth daily. ??? busPIRone (BUSPAR) 5 MG tablet Take 5 mg by mouth 3 times daily. ??? mometasone (NASONEX) 50 MCG/ACT nasal spray 2 sprays by Both Nostrils route daily. ??? rOPINIRole (REQUIP) 0.5 MG tablet Take 0.5 mg by mouth 3 times daily. ??? montelukast (SINGULAIR) 10 MG tablet Take 10 mg by mouth At Bedtime. ??? omeprazole (PRILOSEC) 20 MG capsule Take 1 capsule by mouth daily. ??? montelukast (SINGULAIR) 10 MG tablet Take [...] by mouth every 4 hours as needed. ??? methylprednisoLONE (MEDROL DOSEPACK) 4 MG tablet Take by mouth See Admin Instructions. Follow package directions. ??? liraglutide (VICTOZA) 18 MG/3ML SOLN Inject 1.8 mg Subcutaneous daily. ??? Insulin Pen Needle (B-D U/F PEN NEEDLE) needle 1 Box See Admin Instructions. Use once a day. ??? cetirizine (ZYRTEC) 10 MG tablet Take 1 tablet by mouth daily as needed. For hives ??? fexofenadine (JOSSY) 180 MG tablet Take 1 tablet by mouth daily as needed. For hives ??? albuterol (PROAIR HFA) 108 (90 BASE) MCG/ACT inhaler Inhale 4 puffs into the lungs every 6 hoursas needed. ??? predniSONE (DELTASONE) 20 MG tablet Take by mouth See Admin Instructions. Taper doses as needed for hives ??? Desvenlafaxine Succinate (PRISTIQ) 100 MG TB24 24 hr tablet Take 1 tablet by mouth daily. ??? busPIRone (BUSPAR) 5 MG tablet Take 1 tablet by mouth 2 times daily. ??? Memantine HCl (NAMENDA TITRATION KITTY) 5 (28)-10 (21) MG TABS Take as directed ??? mometasone (NASONEX) 50 MCG/ACT nasal spray 1 spray by Both Nostrils route every 12 hours. ??? ropinirole (REQUIP) 0.5 MG tablet Take 1 tablet by mouth At Bedtime. ??? levothyroxine (SYNTHROID, LEVOTHROID) 25 MCG tablet Take 1 tablet by mouth daily. DISPENSE LEVOTHYROXINE ONLY Client cannot list current medications. List obtained from collateral sources and has not been authenticated. 19. How effective are the current medications you are taking? Has tried many meds and doesn't respond well 20. Mental Status Exam: Appearance: Appropriate Forgot to put on make up and was upset by this- unusual for her Eye Contact: Good Orientation: yes X4 Mood: Depressed Expansive Affect: Flat Thought Content: Clear Memory problems, can't learn as easily Thought Form: Logical Coherent Tangential Psychomotor Behavior: Other (specify) itchy from hives all over her body 21. Multi Axial Diagnosis: [place] I (Major Psychiatric Diagnosis) 296.33 - Major Depressive Disorder, Recurrent, Severe Without Psychotic Features By History [place] II ( Personality Diagnosis) 799.9 - Deferred Diagnosis [place] III (Medical Conditions) Restrictive Lung..., Restless leg syndrome, Lower extremity edema, Angioedema, sleep Apnea, VILLAREAL(nonalcoholic), Diabetes, Thyroid Disease, Hypertension, Asthma, Arthritis STATUS: Referred Comment: PCP [place] IV (psychosocial and environmental factors that impact treatment Identified by Mental Health professional: Problems with primary support group: STATUS: Active Problems related to the social environment: STATUS: Active Occupational problems: STATUS: Active Problems with access to health care services: STATUS: Active Identified by the client/family: Not aware she is seeking help here [place] V (Global Assessment of Functioning) 45 ( 41 - 50 Serious symptoms (e.g., suicidal ideation, severe obsessional rituals, frequent shoplifting) OR any serious impairment in social, occupational, or school functioning (e.g., no friends, unable to keep a job)). 22. What is your understanding of your diagnosis? Becki is a 56 year old , twice mother of and adult hanane, presenting with the following Sx: . She has a history of Suicide attempts, SIB, . She has participated in individual therapy for years, has gone to group therapy for and . A written plan to cope with was created together and was signed. She is interested in participating in Program and was she able to identify goals. Will be assigned to Program and start . 23. Clinical Findings/Summary: (include recommendations, prioritization of needs, ancillary services, client and family participation in preferences, and referrals made) Becki is a 56 year old twice mother of an adult daughter, presenting with the following Sx: Sad mood, tearfulness, despairing, mood swings, social isolation/withdrawing, feelings of worthlessness, feelings of guilt, disturbed sleep pattern- hard to fall and stay asleep, low energy/ fatigue, excessive or constant worry, restlessness, difficulty concentrating, racing thoughts,and decreased sleep She has a history of no Suicide attempts or SIB. She has participated in individual therapy for years, has never gone to group therapy. A written plan to cope with SI was created together in a previousintake and She still has it. She is interested in participating in the 55+Program because the PHP would be too overwhelming, and she was able to identify goals:Learn why she has such difficulty with her memory and why learning is so hard. Learn why she keeps getting hives and how to get rid of them. Learn to manaage her sx of depression and anxiety better. And make a plan for structure for her aftercare; such as art class, selling, or music. She will be assigned to the 55+ Program and start As soon as we can set it up. . Yes, the patient has been informed that any other mental health professional providing mental healthservices to me will need access to this Diagnostic Assessment in order to develop a treatment plan and receive payment. documented in this encounter Plan of Treatment Upcoming Encounters Date Type Specialty Care Team Description 05/19/2022 Office Visit ENT Dima Hidalgo M D [address] [facility] Saroj [place], [place] [address] (Wo rk) 08/02/2022 Office Visit Neurology Yair Campos MD [address] [place] [address] (Wo rk) documented as of this encounter Visit Diagnoses Not on filedocumented in this encounter Care Teams Specialist Employee Labor Relations Relationship Specialty Start Date End Date Aleks Lopez MD PCP - General 10/04/11 05/25/14 documented as of this encounter
--- OUTSIDE RECORDS SUMMARY | 2022-05-09 11:08 | XMS_ITS | Encounter Summary ---
:1955 Author Organization [facility] Address [address] [facility] [place] [address] Care Team Providers Name Role Phone Aleks Lopez MD Primary Care Provider Reason for Visit Mental Health Outpatient (Routine) - Closed Specialty Diagnoses / Procedures Referred By Contact Refer red To Contact Behavioral Health Procedures Ur Senior Op Ur Senior Op [address]+ [address] [place] [phone] Fax: Referral ID Status Reason Start Date Expiration Date Visits Requ ested Visits Authorized [id number] Closed 11/09/2011 05/07/2012 35 35 Encounter Details Date Type Department Care Team Description 11/23/[address] [facility] XXX RETIRED XXX [address] [place] [address] [phone] Social History Tobacco Use Types Packs/Day Years Used Date Smoking Tobacco: Never Smokeless Tobacco: Never Alcohol Use Standard Drinks/Week Comments No 0 (1 standard drink = 0.6 oz pure alcoho l) Sex Assigned at Date Recorded Female 08/17/2018 10:39 PM POST DOC FELLOWSHIP documented as of this encounter Medications at [...] Office Visit ENT Dima Hidalgo M D [address] [place], [place] [address] (Wo rk) 08/02/2022 Office Visit Neurology Yair Campos MD [address] [place] [address] (Wo rk) documented as of this encounter Visit Diagnoses Not on filedocumented in this encounter Care Teams Chief Embalmer Relationship Specialty Start Date End Date Aleks oLpez MD PCP - General 10/04/11 05/25/14 documented as of this encounter
--- OUTSIDE RECORDS SUMMARY | 2022-05-09 11:08 | XMS_ITS | Encounter Summary ---
:1955 Author Organization [place] Address [address] [facility] [place] [address] Care Team Providers Name Role Phone Aleks Lopez MD Primary Care Provider Reason for Visit Mental Health Outpatient (Routine) - Closed Specialty Diagnoses / Procedures Referred By Contact Refer red To Contact Behavioral Health Procedures Ur Senior Op Ur Senior Op [address]+ [address] [place] [phone] Fax: Referral ID Status Reason Start Date Expiration Date Visits Requ ested Visits Authorized [id number] Closed 11/09/2011 05/07/2012 35 35 Encounter Details Date Type Department Care Team Description 12/07/[address] [facility] Mag [facility] & MD [facility] XXX RETIRED XXX [address] [place] [address] [phone] Social History Tobacco Use Types Packs/Day Years Used Date Smoking Tobacco: Never Smokeless Tobacco: Never Alcohol Use Standard Drinks/Week Comments No 0 (1 standard drink = 0.6 oz pure alcoho l) Sex Assigned at Date Recorded Female 08/17/2018 10:39 PM PRINT SUPPORT SPECIALIST documented as of this encounter Medications at [...] encounter Progress Notes Katelynn Bernal LICSW - 12/07/2011 4:29 PM CDT Case Coordination And Contacts Made Name: Becki Mackey [facility] : 1955 Area of Focus: A. Case Coordination Cis Coordinator left as client did not come to program this week and did not call today, also reminded herthere will be no programming Mon -. documented in this encounter Plan of Treatment Upcoming Encounters Date Type Specialty Care Team Description 05/19/2022 Office Visit [facility] [address] [facility] [address] [place], [place] [address] (Sarah rk) 08/02/2022 Office Visit Neurology Yair Campos MD [address] [place] [address] (Wo rk) documented as of this encounter Visit Diagnoses Not on filedocumented in this encounter Care Teams Power Brake Rebuilder Relationship Specialty Start Date End Date Aleks Lopez MD PCP - General 10/04/11 05/25/14 documented as of this encounter
--- OUTSIDE RECORDS SUMMARY | 2022-05-09 11:08 | XMS_ITS | Encounter Summary ---
:1955 Author Organization [facility] Address [address] [facility] [place] [address] Care Team Providers Name Role Phone Aleks Lopez MD Primary Care Provider Reason for Visit Mental Health Outpatient (Routine) - Closed Specialty Diagnoses / Procedures Referred By Contact Refer red To Contact Behavioral Health Procedures Ur Senior Op Ur Senior Op [address]+ [address] [place] [phone] Fax: Referral ID Status Reason Start Date Expiration Date Visits Requ ested Visits Authorized [id number] Closed 11/09/2011 05/07/2012 35 35 Encounter Details Date Type Department Care Team Description 12/14/2011 Hospital Encounter [facility] & MD [facility] XXX RETIRED XXX [address] [place], [place] [address] [phone] Social History Tobacco Use Types Packs/Day Years Used Date Smoking Tobacco: Never Smokeless Tobacco: Never Alcohol Use Standard Drinks/Week Comments No 0 (1 standard drink = 0.6 oz pure alcoho l) Sex Assigned at Date Recorded Female 08/17/2018 10:39 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 documented as of this encounter Medications at [...] encounter Progress Notes Katelynn Bernal LICSW - 12/14/2011 4:46 PM CDT Group Therapy Progress Notes Area of Treatment Focus: Symptom Management and Abstinence/Relapse Prevention Therapeutic Interventions/Treatment Strategies: Structuresd Activity, Problem Solving, Clarification and Education Response to Treatment Strategies: Accepted Feedback, Listened, Focused on Goals, Attentive and Alert Name of Group: Wellness Progress Note Client participated In topic discussion on strenths, identified that she has taken risks and used togo out latin dancing and met people that way. She reports she is on antibiotic for lung infection. She left program after morning due to complaining about hives bothering her. Is this a Weekly Review of the Progress on the Treatment Plan? Yes. Are Treatment Plan Goals being addressed? Yes, continue treatment goals Are Treatment Plan Strategies to Address Goals Effective? Yes, continue treatment strategies Are there any current contracts in place? No Pretty Dawn LICSW - 12/14/2011 11:28 AM CDT Group Therapy Progress Notes Area of Treatment Focus: Symptom Management Therapeutic Interventions/Treatment Strategies: Support, Feedback and Education Response to Treatment Strategies: Accepted Feedback, Gave Feedback, Listened, Focused on Goals, Attentive, Accepted Support and Alert Name of Group: Mental health mgt Progress Note Client participated in progressive muscle relaxation exercise Is this a Weekly Review of the Progress on the Treatment Plan? No documented in this encounter Plan of Treatment Upcoming Encounters Date Type Specialty Care Team Description 05/19/2022 Office Visit ENT Dima Hidalgo M D [address] [facility] Saroj [place], [place] [address] (Wo rk) 08/02/2022 Office Visit Neurology Yair Campos MD [address] [facility] [place] [address] (Wo rk) documented as of this encounter Visit Diagnoses Not on filedocumented in this encounter Care Teams Compliance Vice President Relationship Specialty Start Date End Date Aleks Lopez MD PCP - General 10/04/11 05/25/14 documented as of this encounter
--- OUTSIDE RECORDS SUMMARY | 2022-05-09 11:08 | XMS_ITS | Encounter Summary ---
:1955 Author Organization [place] Address [facility] [place] [address] Care Team Providers Name Role Phone Aleks Lopez MD Primary Care Provider Encounter Details Date Type Department Care Team Description 10/04/2011 Telephone Pulmonary Yue Rangel MD 3rd Floor, Clinic [address] [place] [address] [place] [address] [place] [address] [phone] Social History Tobacco Use Types Packs/Day Years Used Date Smoking Tobacco: Never Smokeless Tobacco: Never Alcohol Use Standard Drinks/Week Comments No 0 (1 standard drink = 0.6 oz pure alcoho l) Sex Assigned at Date Recorded Female 08/17/2018 10:39 PM HOME HEALTH CNA documented as of this encounter Miscellaneous Notes Telephone Encounter - Maylin Mccauley RN - 10/04/2011 3:28 PM CDT Patient called stating that she has an episode of hives all over her body and she says she can feel them in her esophagus. She stated that she thinks that she should go to the ED which was a plan that seemed very appropriate. Called Dr Rangel as per patient request to notify her of the patient status.Patient has had this before and has also gone to the ED at that time. PCP and an topstitcher lockstitch should beinvolved in her care for recurrent hives. documented in this encounter Plan of Treatment Upcoming Encounters Date Type Specialty Care Team Description 05/19/2022 Office Visit ENT Dima Hidalgo M D [address] [place], [place] [address] (Wo rk) 08/02/2022 Office Visit Neurology Yair Campos MD [address] [place] [address] [place] [address] (Wo rk) documented as of this encounter Visit Diagnoses Not on filedocumented in this encounter Care Teams Valve And Regulator Repairer Relationship Specialty Start Date End Date Aleks Lopez MD PCP - General 10/04/11 05/25/14 documented as of this encounter
--- OUTSIDE RECORDS SUMMARY | 2022-05-09 11:08 | XMS_ITS | Encounter Summary ---
:1955 Author Organization [place] Address [address] [facility] [place] [address] Care Team Providers Name Role Phone Aleks Lopez MD Primary Care Provider Reason for Visit Mental Health Outpatient (Routine) - Closed Specialty Diagnoses / Procedures Referred By Contact Refer red To Contact Behavioral Health Procedures Ur Senior Op Ur Senior Op [address]+ [address] [place] [phone] Fax: Referral ID Status Reason Start Date Expiration Date Visits Requ ested Visits Authorized [id number] Closed 11/09/2011 05/07/2012 35 35 Encounter Details Date Type Department Care Team Description 11/28/2011 Hospital Encounter [facility] Mag Krause [facility] & MD [facility] XXX RETIRED XXX [address] [place], [place] [id number] [phone] Social History Tobacco Use Types Packs/Day Years Used Date Smoking Tobacco: Never Smokeless Tobacco: Never Alcohol Use Standard Drinks/Week Comments No 0 (1 standard drink = 0.6 oz pure alcoho l) Sex Assigned at Date Recorded Female 08/17/2018 10:39 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 documented as of this encounter Medications at [...] encounter Progress Notes Katelynn Bernal LICSW - 11/28/2011 4:20 PM CDT Group Therapy Progress Notes Area of Treatment Focus: Symptom Management, Abstinence/Relapse Prevention and Develop/Improve Independent Living/Socialization Skills/Interpersonal Relationships Therapeutic Interventions/Treatment Strategies: Support, Feedback, Limit/Boundaries and Problem Solving Response to Treatment Strategies: Accepted Feedback, Gave Feedback, Listened, Focused on Goals, Attentive, Accepted Support and Alert Name of Group: Psychotherapy Group Progress Note Client continues to report problems with her memory and concentration. She gets very down when she is unable to perform tasks she previously could. She plans to ask her sister to help her apply for SSDI this week. She reports it is difficult on her siblings to see her in this condition as she was always the one everyone went to for help. She leaves herself voice messages on her phone and written memos and this has been helpful to her. Is this a Weekly Review of the Progress on the Treatment Plan? No Alta Medina - 11/28/2011 12:12 PM CDT Group Therapy Progress Notes Area of Treatment Focus: Symptom Management Therapeutic Interventions/Treatment Strategies: Education Response to Treatment Strategies: Accepted Feedback, Listened and Attentive Name of Group: MH MGMT Progress Note Client actively participated in a psychoeducational group on coping strategies for mental health. Is this a Weekly Review of the Progress on the Treatment Plan? No documented in this encounter Plan of Treatment Upcoming Encounters Date Type Specialty Care Team Description 05/19/2022 Office Visit ENT Dima Hidalgo M D [address] [facility] [place], [place] [address] (Wo rk) 08/02/2022 Office Visit Neurology Yair Campos MD [address] [facility] [place] [address] (Wo rk) documented as of this encounter Visit Diagnoses Not on filedocumented in this encounter Care Teams Rn Ostomy Relationship Specialty Start Date End Date Aleks Lopez MD PCP - General 10/04/11 05/25/14 documented as of this encounter
--- OUTSIDE RECORDS SUMMARY | 2022-05-09 11:08 | XMS_ITS | Encounter Summary ---
:1955 Author Organization [place] Address [address] [facility] [place] [address] Care Team Providers Name Role Phone Aleks Lopez MD Primary Care Provider Reason for Visit Mental Health Outpatient (Routine) - Closed Specialty Diagnoses / Procedures Referred By Contact Refer red To Contact Behavioral Health Procedures Ur Senior Op Ur Senior Op [address]+ [address] [place] [phone] Fax: Referral ID Status Reason Start Date Expiration Date Visits Requ ested Visits Authorized [id number] Closed 11/09/2011 05/07/2012 35 35 Encounter Details Date Type Department Care Team Description 12/05/2011 Hospital Encounter [facility] Mag Krause [facility] & MD [facility] XXX RETIRED XXX [address] [place], [place] [phone] [phone] Social History Tobacco Use Types Packs/Day Years Used Date Smoking Tobacco: Never Smokeless Tobacco: Never Alcohol Use Standard Drinks/Week Comments No 0 (1 standard drink = 0.6 oz pure alcoho l) Sex Assigned at Date Recorded Female 08/17/2018 10:39 PM 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
--- OUTSIDE RECORDS SUMMARY | 2022-05-09 11:08 | XMS_ITS | Encounter Summary ---
:1955 Author Organization [place] Address [address] [place] [address] Care Team Providers Name Role Phone Aleks Lopez MD Primary Care Provider Reason for Visit Mental Health Outpatient (Routine) - Closed Specialty Diagnoses / Procedures Referred By Contact Refer red To Contact Behavioral Health Procedures Ur Senior Op Ur Senior Op [address]+ [address] [place] [phone] Fax: Referral ID Status Reason Start Date Expiration Date Visits Requ ested Visits Authorized [id number] Closed 11/09/2011 05/07/2012 35 35 Encounter Details Date Type Department Care Team Description 12/19/2011 Hospital Encounter [facility] Mag Krause [facility] MD [facility] XXX RETIRED XXX [address] [place] [address] [phone] Social History Tobacco Use Types Packs/Day Years Used Date Smoking Tobacco: Never Smokeless Tobacco: Never Alcohol Use Standard Drinks/Week Comments No 0 (1 standard drink = 0.6 oz pure alcoho l) Sex Assigned at Date Recorded Female 08/17/2018 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 Case Coordination Training Mgr phoned client to discuss her inability to attend programming on a regular basis. Denise medina has been struggling with Hives and just started a new round of medications that have been sedating her. She reports she has great difficulty getting up in the morning and difficulty staying all day. Training Mgr helped client clarify her needs at this time, since she is having significant physical health difficulties that are an obstacle to regular attendance. It was decided that for now, she will continue to work with her individual therapist 1x a week and when her physical health improves she can return to 55+, but at this time it was decided to discharge her so she can focus on her health and continue to do individual therapy. Training Mgr will send her a letter summarizing our conversation. documented in this encounter Plan of Treatment Upcoming Encounters Date Type Specialty Care Team Description 05/19/2022 Office Visit ENT Dima Hidalgo M D [address] [address] (Wo rk) 08/02/2022 Office Visit Neurology Yair Campos MD [address] [place] [phone] (Wo rk) documented as of this encounter Visit Diagnoses Not on filedocumented in this encounter Care Teams Boarder Machine Relationship Specialty Start Date End Date Aleks Lopez MD PCP - General 10/04/11 05/25/14 documented as of this encounter
--- OUTSIDE RECORDS SUMMARY | 2022-05-09 11:08 | XMS_ITS | Encounter Summary ---
:1955 Author Organization [place] Address [facility] [place] [address] Care Team Providers Name Role Phone Aleks Lopez MD Primary Care Provider Chelsy Bynum MD, Thomas Primary Care Provider Aleks Lopez MD Primary Care Provider Tali Vilchis MD Unavailable Anat Fuller MD Unavailable [phone] Vladislav Fuentes MD Unavailable [phone] Janny Hutton PA-C Unavailable [phone] No Ref-Primary, Physician Primary Care Provider [phone] PratikKrystin newby APRN COLLECTION CLERK Primary Care Provider [phone] Comfort Nichols MD Unavailable Florecita Bryan RN Unavailable Krystin Christie APRN COLLECTION CLERK Unavailable [phone] Comfort Nichols MD Unavailable PratikKrystin newby APRN COLLECTION CLERK Unavailable [phone] Sonja Tinajero [facility] Unavailable [phone] Kelly De Oliveira [facility] Unavailable Eduin Wilhelm Unavailable Unavailable Cecilia Aleman MD Unavailable [phone] Thalia Glass MD Unavailable [phone] Vinita Linares RN Unavailable Unavailable Krystin Christie APRN COLLECTION CLERK Primary Care Provider + [phone] Deyanira Stewart [facility] Unavailable Nadira Nichols RN Unavailable Unavailable Frank Argueta Unavailable Unavailable Thalia Glass MD Unavailable [phone] Anat Fuller MD Unavailable [phone] Eric Abdi MD Unavailable [phone] Cecilia Aleman MD Unavailable [phone] Lior Sonjashobha Méndez [facility] Unavailable [phone] Vidhi Paiz APRN COLLECTION CLERK Unavailable [phone] Krystin Christie APRN COLLECTION CLERK Unavailable [phone] Sea Tsai DO Unavailable [phone] Vidhi Paiz APRN COLLECTION CLERK Unavailable [phone] Sea Tsai DO Unavailable [phone] Stephanie Canela MD Unavailable [phone] Krystin Christie APRN COLLECTION CLERK Unavailable [phone] Dima Hidalgo MD Unavailable Dima Hidalgo MD Unavailable Reason for Visit Reason Onset Date Comments Outpatient 10/26/2011 dx anival 55+ Encounter Details Date Type Department Care Team Description 10/26/2011 Telephone [facility] Max Boucher, Behavioral Outpatient (dx eval Behavioral Health Intake, 55+) Intake [address] [place] [address] Social History Tobacco Use Types Packs/Day Years Used Date Smoking Tobacco: Never Smokeless Tobacco: Never Alcohol Use Standard Drinks/Week Comments No 0 (1 standard drink = 0.6 oz pure alcoho l) Sex Assigned at Date Recorded Female 08/17/2018 10:39 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 Krause. She has [employer].~Siomara Telephone Encounter - Ruby Groves - 10/27/2011 2:40 PM CDT Spoke with client- assessment for 10/31 @ 1pm with Siomara Grider Telephone Encounter - Ruby Groves - 10/26/2011 11:05 AM CDT Second referral received. Telephone Encounter - Bryan Haskins - 10/26/2011 11:01 AM CDT Message copied by BRYAN HASKINS on MonOct 26, 2011 11:01 AM ------ Message from: SIOMARA GRIDER Created: MonOct 26, 2011 10:38 AM Regarding: update needed Contact: This client called me today: An assessment was done in and she was dealing with a lot of cognitive problems at the time. She has since had neuropsych testing and would like to be assessed for the 55+ program. She will make the call to intake. Rowena, please remind her to bring the neuropsych testing results/summary with her to the intake. Thank you! ~siomara Telephone Encounter - Hemant Staton - 10/26/2011 10:52 AM CDT Pt calls for involvement in mh op, Have dx eval , did not follow through, seeking reinvolvement. Pt ref to op intake by Cinthya gee documented in this encounter Plan of Treatment Upcoming Encounters Date Type Specialty Care Team Description 05/19/2022 Office Visit ENT Dima [facility]idalgo M D [address] [facility] [address]oj [place], [place] [address] (Wo rk) 08/02/2022 Office Visit Neurology Yair Campos MD [address] [place], [place] [address] (Wo rk) documented as of this encounter Visit Diagnoses Not on filedocumented in this encounter Care Teams Offset Second Press Operator Relationship Specialty Start Date End Date Aleks Lopez MD PCP - General 10/04/11 05/25/14 Haroldo Valentino V, PCP - General Internal Medicine 05/26/14 5 MD JERI [place] [address] [place] [address] [phone] Aleks Lopez MD PCP - General Family Practice 10/18/14 11/01/16 No Ref-Primary, PCP - General 11/02/16 12/14/17 Physician Krystin Christie PCP - General Nurse Practitioner 12/15/17 09/08/19 SAURABH Engel COLLECTION CLERK [address] [facility] [place] [id number] Comfort Nichols, PCP - Assigned PCP 04/08/[address] [place] [address] [place] [id number] Krystin Christie PCP - Assigned PCP 08/26/18 09/18/18 SAURABH Engel COLLECTION CLERK [address] [facility] [place] [id number] Krystin Christie PCP - General Nurse Practitioner 09/18/19 SAURABH Engel COLLECTION CLERK [address] [facility] [address] [place] [id number] Tali Vilchis MD INTERNAL MEDICINE - 04/10/15 MD Kaitlynn ENDOCRINOLOGY, [address] [facility] [address] [place], [place] [address] Anat Fuller MD Internal Medicine 04/10/15 09/17/19 Krystin Duran MD [address] [facility] [address] [place], [place] [address] Vladislav Fuentes MD Psychiatry 06/30/15 06/30/15 Mahamed Mcneill MD [facility] [address] [place] [address] Janny Hutton Physician Button And Buckle Maker Physician Button And Buckle Maker 06/30/15 09/17/19 CARLA Mckeon [address] [facility] [address] [place], [place] [address] Florecita Bryan, Lead Conversion Developer 08/17/18 RN Comfort Nichols, Assigned PCP 04/08/18 08/25/18 [facility] [place] [id number] Krystin Christie Assigned PCP 08/26/18 01/28/21 SAURABH Engel COLLECTION CLERK [address] [facility] [address] [place], [place] [id number] Sonja Tinajero Pharmacist Pharmacist 12/24/18 09/17/19 Dev, [facility] [address] [place], [place] [phone] Kelly De Oliveira, Pharmacist Pharmacist 01/21/19 06/24/19 [facility] [address] [place], [place] [address] Eduin Wilhelm Personal Advocate & 06/17/19 09/17/19 Liaison (PAL) Cecilia Aleman MD Urology 07/22/19 09/17/19 MD Lyly [address] [facility] [address] [place], [place] [phone] Joan Monroe MD Obstetrics 07/22/19 09/17/19 Thalia Engel MD [address] [facility] [address] [place], [place] [address] Vinita Linares, RN Registered Nurse 07/22/19 09/17/19 Deyanira Stewart, Pharmacist Pharmacist 01/13/20 08/24/20 [facility] [address] [place] [address] Nadira Nichols, RN Lead Conversion Developer Primary Care - CC 01/21/20 03/02/20 Frank Argueta Community Health Worker 01/21/2002/14 Joan Monroe, Isha OBGYN Provider 05/08/2001/16/21 Thalia Engel MD [address] [place] [id number] Anat Fuller Assigned Gastroenterology 05/08/20 12/12/20 Krystin Duran MD Provider [address] [facility] [address] [address] [place] [address] Eric Abdi Assigned Musculoskeletal 05/08/20 03/27/21 MD Joo Provider TRIA [address] [place] [address] Cecilia Aleman Assigned Surgical 05/08/20 03/06/21 MD Lyly Provider [address] [facility] [address] [place] [address] Sonja Tinajero Ka Pharmacist 08/24/20 [facility] [address] [place] [id number] Vidhi Paiz Assigned PCP 01/29/21 07/10/21 SAURABH Turner COLLECTION CLERK [address] [place] [address] Krystin Christie Assigned PCP 07/11/21 07/24/21 SAURABH Engel COLLECTION CLERK [address] [facility] [place] [address] MD Eulalio Neurology 08/04/21 Sea Fink DO [address] [place] [address] Vidhi Paiz Assigned PCP 07/25/21 01/07/22 SAURABH Turner COLLECTION CLERK [address] [facility] [place] [id number] Isha Tsai Neuroscience 10/10/21 Sea Fink DO Provider [address] [place] [address] Stephanie Canela Assigned OBGYN Provider 12/05/21 MD Alee [address] [place] [address] Krystin Christie Assigned PCP 01/08/22 SAURABH Engel COLLECTION CLERK [address] [facility] [place] [address] Dima Hidalgo MD MD Otolaryngology 02/15/[address] [id number] Dima Hidalgo MD Assigned Surgical 03/12/[address] [place] [address] documented as of this encounter
--- OUTSIDE RECORDS SUMMARY | 2022-05-09 11:08 | XMS_ITS | Encounter Summary ---
:1955 Author Organization [place] Address [facility] [place] [address] Care Team Providers Name Role Phone Aleks Lopez MD Primary Care Provider Reason for Visit Reason Comments Shortness of Breath Hives Encounter Details Date Type Department Care Team Description 10/04/2011 Emergency [facility] Lincoln Jones Urticmandie Emergency Department MD [address] [facility] [address] [place] [phone] [place], [place] [phone] (Wo rk) Social History Tobacco Use Types Packs/Day Years Used Date Smoking Tobacco: Never Smokeless Tobacco: Never Alcohol Use Standard Drinks/Week Comments No 0 (1 standard drink = 0.6 oz pure alcoho l) Sex Assigned at Date Recorded Female 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 documented as of this encounter Last Filed Vital Signs Vital Sign Reading Time Taken Comments Blood Pressure 128/87 10/04/2011 10:30 PM CDT Pulse - - Temperature 36.5 ??C (97.7 ??F) 10/04/2011 4:28 PM CDT Respiratory Rate 20 10/04/2011 4:28 PM CDT Oxygen Saturation 96% 10/04/2011 10:30 PM CDT Inhaled Oxygen Concentration - - Weight 94.3 kg (208 lb) 10/04/2011 4:28 PM CDT Height 160 cm (5' 3) 10/04/2011 4:28 PM CDT Body Mass Index 36.85 10/04/2011 4:28 PM CDT documented in this encounter Discharge Instructions Discharge InstructionsLincoln Jones MD - 10/04/2011 10:33 PM CDT Please make an appointment to follow up with Your Primary Care Provider as soon as possible. Medrol Dosepak as directed. Benadryl for itching rash. Return to the emergency Department for any problems. documented in this encounter Medications at Time [...] every morning. busPIRone (BUSPAR) 5 MG Take 1 tablet by 0 04/03/2012 tablet mouth 2 times daily. cetirizine (ZYRTEC) 10 MG Take 1 tablet by 90 tablet 3 07/1808/17/2018 tabletIndications: mouth daily as Asthma, Hives needed. For hives cetirizine HCl (ZYRTEC) Take 1 tablet by 0 201104/03/2012 10 MG CHEW mouth daily. Desvenlafaxine Succinate Take 1 tablet by 0 [...] tablet Follow package directions. mometasone (NASONEX) 50 1 spray by Both [...] 10/18/2014 MG tablet and then taper down. ropinirole (REQUIP) 0.5 Take 1 tablet by 0 05/26/2015 MG tablet mouth At Bedtime. tramadol (ULTRAM) 50 MG Take 1 tablet by 0 08/22/2013 tablet mouth 3 times daily as needed. documented as of this encounter ED Notes Lincoln Jones MD - 10/04/2011 5:06 PM CDT History Chief Complaint Patient presents with ??? Shortness of Breath ??? Hives The history is provided by the patient. Becki Thomas is a 56 year old female who presents today with chief complaint of hives and shortnessof breath. She reports she has had chronic hives for the past year. The hives wax and wane in intensity and acutely worsened last night. She did take Benadryl last night with no relief. Today her hivescontinued to worsened and she developed shortness of breath. She complains of wheezing and feeling like her throat is closing. The patient reports that she has had this type of reaction before with more severe respiratory symptoms and was seen in an Emergency Department. She received epinephrine on that occasion but reports she reacted poorly to it. She does follow in the Allergy Clinic here but doesnot think she has had formal allergy testing. She does not take steroids as she is trying to lose weight for her fatty liver disease. The patient reports she has had some nausea but no vomiting. I have reviewed the Medications, Allergies, Past Medical and Surgical History, and Social History inthe [facility] system. Review of Systems Constitutional: Negative for fever. Respiratory: Positive for shortness of breath and wheezing. Cardiovascular: Negative for chest pain. Gastrointestinal: Positive for nausea. Negative for vomiting and abdominal pain. Skin: Hives. All other systems reviewed and are negative. Past Medical History Diagnosis Date ??? Hypertension ??? Asthma ??? Arthritis ??? Restrictive lung disease ??? Blood transfusion ??? Angioedema ??? Sleep apnea ??? Restless legs syndrome ??? Depression ??? VILLAREAL (nonalcoholic steatohepatitis) ??? Lower extremity edema No past surgical history on file. Current Outpatient Rx Name Route Sig Dispense Refill ??? METHYLPREDNISOLONE 4 MG PO KIT Oral Take by mouth See Admin Instructions. Follow package directions. 1 Package 0 ??? OMEPRAZOLE 20 MG PO CPDR Oral Take 1 capsule by mouth daily. 90 capsule 3 ??? LIRAGLUTIDE 18 MG/3ML SC SOLN Subcutaneous Inject 1.8 mg Subcutaneous daily. 27 mL 3 ??? INSULIN PEN NEEDLE 31G X 5 MM MISC Does not apply 1 Box See Admin Instructions. Use once a day. 1 Box 11 ??? CETIRIZINE HCL 10 MG PO TABS Oral Take 1 tablet by mouth daily as needed. For hives 90 tablet 3 ??? FEXOFENADINE HCL 180 MG PO TABS Oral Take 1 tablet by mouth daily as needed. For hives 90 tablet3 ??? PROAIR HFA 108 (90 BASE) MCG/ACT IN AERS Inhalation Inhale 4 puffs into the lungs every 6 hours as needed. ??? PREDNISONE 20 MG PO TABS Oral Take by mouth See Admin Instructions. Taper doses as needed for hives ??? DESVENLAFAXINE SUCCINATE 100 MG PO TB24 Oral Take 1 tablet by mouth daily. ??? BUSPIRONE HCL 5 MG PO TABS Oral Take 1 tablet by mouth 2 times daily. ??? MEMANTINE HCL 5 (28)-10 (21) MG PO TABS Take as directed ??? MOMETASONE FUROATE 50 MCG/ACT NA SUSP Both Nostrils 1 spray by Both Nostrils route every 12 hours. ??? ROPINIROLE HCL 0.5 MG PO TABS Oral Take 1 tablet by mouth At Bedtime. ??? MONTELUKAST SODIUM 10 MG PO TABS Oral Take 1 tablet by mouth daily. ??? TRAMADOL HCL 50 MG PO TABS Oral Take 1 tablet by mouth 3 times daily as needed. ??? GLUCOSE BLOOD STRP Test twice daily. 1 Box 12 ??? ACCU-CHEK MULTICLIX LANCETS MISC test twice daily. ??? EPINEPHRINE 0.3 MG/0.3ML IJ SLOAN Intramuscular Inject 0.3 mg into the muscle once as needed. ??? LEVOTHYROXINE SODIUM 25 MCG PO TABS Oral Take 1 tablet by mouth daily. DISPENSE LEVOTHYROXINE ONLY 90 tablet 3 Dispense as written. ??? FLUTICASONE-SALMETEROL 500-50 MCG/DOSE IN AEPB Inhalation Inhale 1 puff into the lungs every 12 hours. ??? VENTOLIN HFA 108 (90 BASE) MCG/ACT IN AERS Inhalation Inhale 2 puffs into the lungs 4 times daily as needed. ??? FUROSEMIDE 20 MG PO TABS Oral Take 1 tablet by mouth 2 times daily. ??? METFORMIN HCL 500 MG PO TABS Oral Take 500 mg by mouth 2 times daily (with meals). ??? ARMODAFINIL 250 MG PO TABS Oral Take 250 mg by mouth every morning. ??? POTASSIUM GLUCONATE 595 MG PO TABS Oral Take 1 tablet by mouth 2 times daily. ??? IBUPROFEN 200 MG PO TABS Oral Take 400 mg by mouth every 4 hours as needed. Physical Exam BP: 129/78 mmHg Heart Rate: 104 Temp: 97.7 ??F (36.5 ??C) Resp: 20 Height: 160 cm (5' 3) Weight: 94.348 kg (208 lb) SpO2: 99 % Physical Exam Nursing note and vitals reviewed. Constitutional: She is oriented to person, place, and time. Vital signs are normal. She appears well-developed and well-nourished. Non-toxic appearance. She does not appear ill. No distress. HENT: Head: Normocephalic and atraumatic. Mouth/Throat: Uvula is midline, oropharynx is clear and moist and mucous membranes are normal. No oropharyngeal exudate or posterior oropharyngeal edema. No obvious oropharyngeal swelling or facial angioedema. Eyes: Conjunctivae and EOM are normal. Pupils are equal, round, and reactive to light. No scleral icterus. Neck: Trachea normal, normal range of motion and phonation normal. Neck supple. No JVD present. No tracheal tenderness present. No tracheal deviation present. No thyromegaly present. Cardiovascular: Normal rate, regular rhythm, normal heart sounds and intact distal pulses. Exam reveals no gallop and no friction rub. No murmur heard. Pulmonary/Chest: Effort normal and breath sounds normal. No stridor. No respiratory distress. She has no wheezes. Abdominal: Soft. Bowel sounds are normal. She exhibits no distension and no mass. No tenderness. Musculoskeletal: Normal range of motion. She exhibits no edema and no tenderness. Lymphadenopathy: She has no cervical adenopathy. Neurological: She is alert and oriented to person, place, and time. She has normal strength. No cranial nerve deficit or sensory deficit. Skin: Skin is warm and dry. Rash noted. No petechiae and no purpura noted. Rash is urticarial (diffuse urticarial rash noted.). Rash is not vesicular. No erythema. No pallor. Psychiatric: She has a normal mood and affect. Her behavior is normal. ED Course Procedures EKG: none Critical Care time: none Trauma: none [facility] Diagnoses: None Assessments & Plan (with Medical Decision Making) I have reviewed the nursing notes. I have reviewed the findings, diagnosis, plan and need for follow up with the patient. Patient presents to the emergency department with worsened urticaria. 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 An IV was established, and the patient was given Benadryl, Zantac, and Solu-Medrol IV and observed for a few hours in the emergency department. Urticaria improved as well as the patient's symptoms and eventually she was discharged home with a prescription for a Medrol Dosepak in good condition. New Prescriptions METHYLPREDNISOLONE (MEDROL DOSEPACK) 4 MG TABLET Take by mouth See Admin Instructions. Follow package directions. Final diagnoses: Urticaria This document serves as a record of services personally performed by Dr. Jones. It was created on his/her behalf by Ada Mendez, a trained medical billing service. The creation of this record is based on the scribe's personal observations and the provider's statements to them. This document has been checked and approved by the attending provider. Lincoln Jones MD 10/13/11 0720 Minnie London RN - 10/04/2011 5:02 PM CDT Labs drawn(rainbow) with IV insertion and sent Belén Bowen RN - 10/04/2011 4:30 PM CDT Pt has been having chronic onset of hives and itching for past year. Feels today it is involving herairway. Feels like hives are in my throat. Last took benadryl last night. Took Fexofenadine today. documented in this encounter Plan of Treatment Upcoming Encounters Date Type Specialty Care Team Description 05/19/2022 Office Visit ENT Dima Hidalgo M D [address] [place], [place] [address] (Wo rk) 08/02/2022 Office Visit Neurology Yair Campos MD [address] [place], [place] [phone] (Wo rk) documented as of this encounter Visit Diagnoses Diagnosis Urticaria Urticaria, unspecified documented in this encounter Administered Medications Inactive Administered Medications - up to 3 most recent administrations Medication Order MAR Action Action Date Dose Rate Site diphenhydrAMINE (BENADRYL) Given 10/04/2011 5:30 PM CDT 50 mg injection 50 mg 50 mg, Intravenous, ONCE, On 10/04/11 at 1719, For 1 dose methylprednisoLONE sodium succinate Given 10/04/2011 5:31 PM CDT 125 mg (Solu-MEDROL) injection 125 mg 125 mg, Intravenous, ONCE, On 10/04/11 at 1719, For 1 dose ranitidine (ZANTAC) injection 50 mg Given 10/04/2011 6:07 PM CDT 50 mg 50 mg, Intravenous, ONCE, On 10/04/11 at 1723, For 1 dose, Give over 5 minutes. documented in this encounter Active and Recently Administered Medications Times are shown in CDT. Scheduled Medication Order 10/02/2011 10/03/2011 10/04/2011 diphenhydrAMINE (BENADRYL) injection 50 mg (COMPLETED) 1730 (Given - Provider: Minnie London RN) 50 mg, Intravenous, ONCE, 10/04/11 at 1719, For 1 dose methylprednisoLONE sodium succinate (Solu-MEDROL) injection 125 mg (COMPLETED) 1731 (Given - Provider: Minnie London RN) 125 mg, Intravenous, ONCE, 10/04/11 at 1719, For 1 dose ranitidine (ZANTAC) injection 50 mg (COMPLETED) 1807 (Given - Provider: Minnie London RN) 50 mg, Intravenous, ONCE, 10/04/11 at 1723, For 1 d ose, Give over 5 minutes. documented in this encounter Care Teams Flatwork Ironer Relationship Specialty Start Date End Date Aleks Lopez MD PCP - General 10/04/11 05/25/14 documented as of this encounter
--- OUTSIDE RECORDS SUMMARY | 2022-05-09 11:08 | XMS_ITS | Encounter Summary ---
:1955 Author Organization [place] Address [address] [facility] [place] [address] Care Team Providers Name Role Phone Aleks Lopez MD Primary Care Provider Encounter Details Date Type Department Care Team Description 11/01/2011 BEH Treatment Plan [facility] Mental Harriet Cannon, Health & Addiction [facility] Services [address] [place] [phone] Social History Tobacco Use Types Packs/Day Years Used Date Smoking Tobacco: Never Smokeless Tobacco: Never Alcohol Use Standard Drinks/Week Comments No 0 (1 standard drink = 0.6 oz pure alcoho l) Sex Assigned at Date Recorded Female 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/2018 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 Restorationism Preference/Spiritual Beliefs/Cultural Considerations: Non-nondenominational Ethnic Self-Identification: Is Cultural Bias a Stressor? No Are there certain behaviors or practices that must be avoided in addressing your health needs? Chemical sensitivity, exercise, mowing grass= all will trigger an asthma attack Do members of your family have different beliefs about what is needed to address your health needs? Not involved Do you have any jew or spiritual traditions that you are connected to? [place] and Bible reading What interventions and strategies would be helpful to you while you are in our program? Heal what is wrong with me physically Talk therapy Change my thinking patterns Use my spiritual practices Work with my jew or spiritual community 10. Family Relationships: Has [...] 10 mg by mouth At Bedtime. ??? methylprednisoLONE (MEDROL DOSEPACK) 4 MG tablet Take by mouth See Admin Instructions. Follow package directions. ??? omeprazole (PRILOSEC) 20 MG capsule Take [...] into the muscle once as needed. ??? levothyroxine (SYNTHROID, LEVOTHROID) 25 MCG tablet Take 1 tablet by mouth daily. DISPENSE LEVOTHYROXINE ONLY ??? fluticasone-salmeterol (ADVAIR DISKUS) 500-50 MCG/DOSE diskus [...] by mouth every 4 hours as needed. Client cannot list current medications. List obtained [...] over her body 21. Multi Axial Diagnosis: [place] I (Major Psychiatric Diagnosis) 296.33 - Major Depressive Disorder, Recurrent, Severe Without Psychotic Features By History [place] II ( Personality Diagnosis) 799.9 - Deferred Diagnosis [place] III (Medical Conditions) Restrictive Lung..., Restless leg syndrome, Lower extremity edema, Angioedema, sleep Apnea, VILLAREAL(nonalcoholic), Diabetes, Thyroid Disease, Hypertension, Asthma, Arthritis STATUS: Referred Comment: PCP [place] IV (psychosocial and environmental factors that impact treatment Identified by Mental Health professional: Problems with primary support group: STATUS: Active Problems related to the social environment: STATUS: Active Occupational problems: STATUS: Active Problems with access to health care services: STATUS: Active Identified by the client/family: Not aware she is seeking help here [place] V (Global Assessment of Functioning) 45 ( [...] for years, has never gone to group therapy for.A written plan to cope with SI was created together in a previous intake and She still has it. She is interested in participating in the 55+Program because the PHPwould be too overwhelming, and she was able to identify goals:Learn why she has such difficulty withher memory and why learning is so hard. Learn why she keeps getting hives and how to get rid of them. Learn to manaage her sx of depression and anxiety better. And make a plan for structure for her aftercare; such as art class, selling, or music. She will be assigned to Of the 55+ Program and start . Yes, the patient has been informed that any other mental health professional providing mental healthservices to me will need access to this Diagnostic Assessment in order to develop a treatment plan and receive payment. Varsha Cannon LICSW - 11/01/2011 3:03 PM CDT Initial [facility] 1955 Sex: female Initial Individualized Treatment Plan: I. The areas of treatment focus identified are: Stabilize mental health status/personal safety Develop/improve independent living and socialization skills Education and training II. Goals and treatment strategies include: A. Client will report on their: Ability to maintain safety and/or destructive impulses by talking to staff as needed and actively engaging in safety planning. Need for more information, support and/or assistance. Increase or change in symptoms B. Client will identify skills to: Improve interpersonal relationships by learning adaptive communication and coping skills Promote constructive management of emotions (examples: depression, anxiety, anger) by developing effective cognitive/behavioral coping skills C. Client will agree to: Be responsible to prioritize and work goals, including regular attendance as scheduled, and ask for assistance as needed. Abstinence from alcohol, illicit drugs ( incl. synthetics), gambling; i.e. behaviors that will inhibit their ability to utilize and benefit from the program. D. This client will report on cultural, racial, health or spiritual issues that impact their wellbeing Assessment of this client's strengths includes: Curious, intelligent Specific Issues(s): Concern about memory problems and how to cope with them. Intervention: Will work with her therapist to go through the neuropsych eval to understand what is going on. E. Client agrees to: Partner with the treatment team to identify, prioritize and work on goals. Be responsible for active participation in the treatment plan, work with assigned treatment team, regularly attend groups, and ask for help as needed. Maintain personal safety by: following written plan done last time. Refrain from use of alcohol, illicit drugs (including synthetics) gambling - and any behaviors that restrict getting the full benefit from the program, for the time they are in the program, and be willing to report and problem-solve difficulties with staff. Date Plan Started: Date Plan Stopped: Admit Date/Time: Date Plan Stopped: Treatment Team Responsible: Keena Robertson, Chrissy Bernal, Pretty Dawn and Adali Ruiz Varsha Cannon LICSW - 11/01/2011 2:56 PM CDT Acknowledgement of Current Treatment Plan I have reviewed my treatment plan with my therapist / counselor on 11/01/11 . I agree with the plan as it is written in the electronic health record. Name Signature Becki Ridley Name of Therapist / Counselor Varsha Cannon MA, LICSW documented in this encounter Plan of Treatment Upcoming Encounters Date Type Specialty Care Team Description 05/19/2022 Office Visit ENT Dima Hidalgo M D [address] [place], [place] [address] (Wo rk) 08/02/2022 Office Visit Neurology Yair Campos MD [address] [place] [address] (Wo rk) documented as of this encounter Visit Diagnoses Not on filedocumented in this encounter Care Teams Contact Lens Edge Buffer Relationship Specialty Start Date End Date Aleks Lopez MD PCP - General 10/04/11 05/25/14 documented as of this encounter
--- OUTSIDE RECORDS SUMMARY | 2022-05-09 11:09 | XMS_ITS | Encounter Summary ---
:1955 Author Organization [place] Address [address] [facility] 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 documented as of this encounter Plan of Treatment Upcoming Encounters Date Type Specialty Care Team Description 05/19/2022 Office Visit [facility] M D [address] [facility] [place] [place] [address] (Wo rk) 08/02/2022 Office Visit Neurology Yair Campos MD [address] [place], [place] [phone] (Wo rk) documented as of this encounter Visit Diagnoses Diagnosis Liver function test abnormality - Primar y Other abnormal blood chemistry documented in this encounter Care Teams Certified Public Accountant Relationship Specialty Start Date End Date Verified, Pcp Unknown PCP - General 01/06/11 2 documented as of this encounter
--- OUTSIDE RECORDS SUMMARY | 2022-05-09 11:09 | XMS_ITS | Encounter Summary ---
:1955 Author Organization [place] Address [address] [facility] 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 documented as of this encounter Plan of Treatment Upcoming Encounters Date Type Specialty Care Team Description 05/19/2022 Office Visit ENT D[facility]idalgo M D [address] [facility] [address] [place], [place] [address] (Wo rk) 08/02/2022 Office Visit Neurology Yair Campos MD [address] [facility] [place], [place] [phone] (Wo rk) documented as of this encounter Visit Diagnoses Diagnosis Hepatic fibrosis - Primary Cirrhosis of liver without mention of al cohol documented in this encounter Care Teams Sweatband Cutting Machine Operator Relationship Specialty Start Date End Date Verified, Pcp Unknown PCP - General 01/06/11 2 documented as of this encounter
--- OUTSIDE RECORDS SUMMARY | 2022-05-09 11:09 | XMS_ITS | Encounter Summary ---
:1955 Author Organization [place] Address [address] 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 Spirometry and Diffusing Capacity. Ranjan LRT, AE-C, CPFT documented in this encounter Plan of Treatment Upcoming Encounters Date Type Specialty Care Team Description 05/19/2022 Office Visit E[facility]idal[facility] M D [address] [facility] [place] [place] [address] (Wo rk) 08/02/2022 Office Visit Neurology Yiar Campos MD [address] [place] [address] (Wo rk) documented as of this encounter Procedures Procedure Name Priority Date/Time Associated Diagnosis Comme nts HC MONOXIDE DIFFUSING Routine 02/09/2011 2:11 PM SOB (shortnes s of CAPACITY CDT breath) HC RESPIRATORY FLOW Routine 02/09/2011 2:11 PM SOB (shortness of VOLUME LOOP CDT breath) documented in this encounter Visit Diagnoses Diagnosis SOB (shortness of breath) - Primary Shortness of breath documented in this encounter Care Teams Welding Systems And Equipment Repairer Relationship Specialty Start Date End Date Verified, Pcp Unknown PCP - General 01/06/11 2 documented as of this encounter
--- OUTSIDE RECORDS SUMMARY | 2022-05-09 11:09 | XMS_ITS | Encounter Summary ---
:1955 Author Organization [place] Address [facility] 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
--- OUTSIDE RECORDS SUMMARY | 2022-05-09 11:09 | XMS_ITS | Encounter Summary ---
:1955 Author Organization [place] Address [facility] 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
--- OUTSIDE RECORDS SUMMARY | 2022-05-09 11:09 | XMS_ITS | Encounter Summary ---
:1955 Author Organization [place] Address [address] [place] [address] Care Team Providers Name Role Phone Aleks Lopez MD Primary Care Provider Reason for Visit Reason Comments RECHECK asthma; SOB Encounter Details Date Type Department Care Team Description 08/10/2011 Office Visit Pulmonary Thomas Walker MD [address] [place] [id number] Asthma (Primary Dx); 3rd Floor, Clinic 3A Yue Rangel MD [address] [address] Social History Tobacco Use Types Packs/Day Years Used Date Smoking Tobacco: Never Smokeless Tobacco: Never Alcohol Use Standard Drinks/Week Comments No 0 (1 standard drink = 0.6 oz pure alcoho l) Sex Assigned at Date Recorded Female 08/17/2018 10:39 PM DISASSEMBLER PRODUCT documented as of this encounter Last Filed Vital Signs Vital Sign Reading Time Taken Comments Blood Pressure 121/52 08/10/2011 2:38 PM DISASSEMBLER PRODUCT Pulse 78 08/10/2011 2:38 PM DISASSEMBLER PRODUCT Temperature 36.9 ??C (98.5 ??F) 08/10/2011 2:38 PM DISASSEMBLER PRODUCT Respiratory Rate 16 08/10/2011 2:38 PM DISASSEMBLER PRODUCT Oxygen Saturation 94% 08/10/2011 2:38 PM DISASSEMBLER PRODUCT RA Inhaled Oxygen Concentration - - Weight 96.2 kg (212 lb) 08/10/2011 2:38 PM DISASSEMBLER PRODUCT Height 156.2 cm (5' 1.5) 08/10/2011 2:38 PM DISASSEMBLER PRODUCT Body Mass Index 39.41 08/10/2011 2:38 PM DISASSEMBLER PRODUCT documented in this encounter Progress Notes Yue Rangel MD - 08/10/2011 6:03 PM CST Attending Attestation: I, Amadeo Nieto MD PhD, have seen and examined this patient with the provider who authored this note and agree with the below exam and plan. REASON FOR VISIT: Follow-up for shortness of breath HISTORY OF PRESENT ILLNESS: This 56-year-old female with PMH of asthma and YESSI was last seen in Pulmonary Clinic on 02/09/2011 for ongoing evaluation of shortness of breath. It is felt her dyspnea is likely multifactorial including asthma, obesity, and depression. The patient has gained a significant amount of weight over the last year due to prednisone and depression. She is not currently on prednisone. She has now enrolled in the Weight Management Clinic here with Dr. Watson. She was on Byetta and has now changed to liraglutide. She has lost 12 lbs over the last month. The patient continues to be short of breath with approximately 50 feet on a flat surface or 1 [address]. She has an intermittent dry cough and does notice wheezing when she breathes and occasional shortness of breath even at rest. She denies hemoptysis. She has been using her CPAP each night. Please see ROS for further details. She would like a prescription for a portable nebulizer machine, as inhalers do not help with her dyspnea. She would like to try to increase her physical activity, but is concerned she will have worsening shortness of breath. Previously attended pulmonary rehab and did not have any reported significant adverse events. She would also like prescriptions for Nora and Zyrtec. She previously received these from Dr. Ribera. She is also requesting a rescue prednisone Rx should her hives or breathing worsen. PAST MEDICAL HISTORY: 1. Asthma diagnosed by positive methacholine challenge in 2006, previously followed by Dr. Ribera. 2. Angioedema and recurrent hives 3. Hypertension. 4. Obstructive sleep apnea, currently using auto-titrating CPAP with a range of 5-15 cmH2O. 5. Restless legs syndrome. 6. Depression 7. Non-alcoholic fatty liver disease, followed by Dr. Bernal. 8. Arthralgias. 9. Peripheral edema. 10. Recurrent bronchitis. SOCIAL HISTORY: The patient is a lifelong nonsmoker. She does not have any pets and has not had any unusual inhalation exposures. 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 FAMILY HISTORY: Mother was diagnosed with emphysema by her primary care physician. She was a lifelong nonsmoker. Please see complete family history from my note dated 02/17/2010. ALLERGIES: Cipro, Darvocet and Vicodin. CURRENT MEDICATIONS: Current Outpatient Rx Name Route Sig Dispense Refill ??? CETIRIZINE HCL 10 MG PO TABS Oral Take 1 tablet by mouth daily as needed. For hives 90 tablet 3 ??? FEXOFENADINE HCL 180 MG PO TABS Oral Take 1 tablet by mouth daily as needed. For hives 90 tablet3 ??? INSULIN PEN NEEDLE 31G X 5 MM MISC Does not apply 1 Box See Admin Instructions. Use once a day. 1 Box 11 ??? PROAIR HFA 108 (90 BASE) MCG/ACT IN AERS Inhalation Inhale 4 puffs into the lungs every 6 hours as needed. ??? DESVENLAFAXINE SUCCINATE 100 MG PO TB24 Oral Take 1 tablet by mouth daily. ??? LIRAGLUTIDE 18 MG/3ML SC SOLN Subcutaneous Inject 1.8 mg Subcutaneous daily. 6 mL 3 ??? BUSPIRONE HCL 5 MG PO TABS Oral Take 1 tablet by mouth 2 times daily. ??? MEMANTINE HCL 5 (28)-10 (21) MG PO TABS Take as directed ??? MOMETASONE FUROATE 50 MCG/ACT NA SUSP Both Nostrils 1 spray by Both Nostrils route every 12 hours. ??? OMEPRAZOLE 20 MG PO CPDR Oral Take 1 capsule by mouth daily. ??? ROPINIROLE HCL 0.5 MG PO TABS [...] by mouth every 4 hours as needed. REVIEW OF SYSTEMS: Constitutional: Positive for weight gain of 100 pounds over the last couple years, as well as occasional full body flushing. HEENT: Positive for vision changes, otherwise negative. Cardiac: Positive for occasional palpitations and mid chest discomfort when she bends over, as well as lower extremity edema. Pulmonary: Per HPI. GI: Positive for occasional nausea Genitourinary: Negative. Musculoskeletal: Positive for muscle and joint pains. Neurology: Positive for headaches as well as occasional numbness in arms and legs. Dermatology: Negative. Endocrine: Negative. Psychiatric: Positive for depression. PHYSICAL EXAMINATION: BP 121/52 Pulse 78 Temp(Src) 98.5 ??F (36.9 ??C) (Oral) Resp 16 Ht 1.562 m (5' 1.5) Wt 96.163 kg (212 lb) BMI 39.41 kg/m2 SpO2 94% on RA GENERAL: A pleasant female in no acute distress. HEENT: Pupils equal, round and reactive to light. Sclerae are anicteric. Moist mucosal membranes. NECK: No lymphadenopathy. LUNGS: Clear to auscultation bilaterally. CARDIAC: Regular rate and rhythm. No murmurs, gallops or rubs. ABDOMEN: Obese, normoactive bowel sounds, soft, nontender. EXTREMITIES: She has 1+ bilateral lower extremity edema, no clubbing or cyanosis. RESULTS: Pulmonary function tests performed today show FEV1 of 1.97 liters (81% predicted), FVC 2.38liters (76% predicted), FEV1/FVC ratio of 83%. DLCO was also normal at 86% of predicted. The spirometry would suggest possible restriction; however, lung volumes would be needed to confirm. Compared to02/09/2011, there is no significant change in the patient's FEV1 or FVC. ASSESSMENT: The patient is a 56-year-old female with multiple medical issues including obesity, asthma, and obstructive sleep apnea. The patient's shortness of breath is again felt to be multifactorialincluding intermittent asthma exacerbations, morbid obesity, and depression. She has been ruled out for pulmonary hypertension with a negative echocardiogram and prior imaging would not suggest a pulmonary parenchymal process. She completed pulmonary rehabilitation and did not feel this was that helpful. She is now undergoing weight management with Dr. Watson. RECOMMENDATIONS: 1. Rx given for portable nebulizer machine 2. Rxs given for Zyrtec and Nora 3. I explained that I would prefer to have her call in should she feel she needs prednisone. 4. She was congratulated on her weight loss and encouraged to continue to try to lose weight 5. Encouraged exercise 6. Continue Advair 500/50, Ventolin PRN, albuterol nebs PRN, Nasonex, and omeprazole Return to [facility] System Maintenance Worker Clinic in 6 months with PFTs prior to appt Seen, examined, and discussed with Dr. Nieto. Yue Rangel MD Fuel System Maintenance Worker SSEMBLER PRODUCT documented in this encounter Nursing Notes 08/10/2011 2:20 PM CST >> VLAD Cleaning Aug 10, 2011 2:39 PM Patient roomed; VS taken and entered; medications and allergies reviewed; patient ready for provider. Vlad Shah CMA. documented in this encounter Plan of Treatment Upcoming Encounters Date Type Specialty Care Team Description 05/19/2022 Office Visit ENT Dima Hidalgo M D [address] [facility] [place], [place] [address] (Wo rk) 08/02/2022 Office Visit Neurology Yair Campos MD [address] [place] [address] (Wo rk) documented as of this encounter Visit Diagnoses Diagnosis Asthma - Primary Unspecified asthma Hives Urticaria, unspecified documented in this encounter Care Teams Stick Puller Relationship Specialty Start Date End Date Aleks Lopez MD PCP - General 07/20/11 10/03/11 documented as of this encounter
--- OUTSIDE RECORDS SUMMARY | 2022-05-09 11:09 | XMS_ITS | Encounter Summary ---
:1955 Author Organization [place] Address [facility]0 [facility] [place] [address] Care Team Providers Name Role Phone Verified, Pcp Unknown Primary Care Provider Unavailable Encounter Details Date Type Department Care Team Description 07/14/2011 Orders Only Hepatology/Gastroente Gifty Bernal Nonspecific abnormal rology MD Shira results of liver 2nd Floor, Clinic 2A [facility] function study [facility] (Primary Dx) Building [address] [place] [address] [place] [address] Social History Tobacco Use Types Packs/Day Years Used Date Smoking Tobacco: Never Smokeless Tobacco: Never Alcohol Use Standard Drinks/Week Comments No 0 (1 standard drink = 0.6 oz pure alcoho l) Sex Assigned at Date Recorded Female 08/17/2018 10:39 PM 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 documented as of this encounter Plan of Treatment Upcoming Encounters Date Type Specialty Care Team Description 05/19/2022 Office Visit [facility] [facility] [place], [place] [address] (Wo rk) 08/02/2022 Office Visit Neurology Yair Campos MD [address] [place] [address] (Wo rk) documented as of this encounter Visit Diagnoses Diagnosis Nonspecific abnormal results of liver fu nction study - Primary documented in this encounter Care Teams Aniline Press Worker Relationship Specialty Start Date End Date Verified, Pcp Unknown PCP - General 01/06/11 2 documented as of this encounter
--- OUTSIDE RECORDS SUMMARY | 2022-05-09 11:09 | XMS_ITS | Encounter Summary ---
:1955 Author Organization [place] Address [facility] 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 documented as of this encounter Progress Notes Janny Montez - 02/09/2011 2:20 PM CDT Deckhand: Janny Montez Status: Final - Signature Encounter: 2011-02-09 14:20:00.000 Type: Transplant Pulm Visit documented in this encounter Plan of Treatment Upcoming Encounters Date Type Specialty Care Team Description 05/19/2022 Office Visit ENT Dima Hidalgo M D [address] [place] [address] (Wo rk) 08/02/2022 Office Visit Neurology Yair Campos MD [address] [place], [place] [phone] (Wo rk) documented as of this encounter Visit Diagnoses Not on filedocumented in this encounter Care Teams Is Manager Relationship Specialty Start Date End Date Verified, Pcp Unknown PCP - General 01/06/11 2 documented as of this encounter
--- OUTSIDE RECORDS SUMMARY | 2022-05-09 11:09 | XMS_ITS | Encounter Summary ---
:1955 Author Organization [place] Address [facility] [place] [address] Care Team Providers Name Role Phone Unavailable Primary Care Provider Unavailable Encounter Details Date Type Department Care Team Description 12/27/2010 Office Visit-[facility] INTERFACE P DEPT Eddie Watson MD [address] [facility] [address] [place], [place] [address] (Wo rk) Social History Tobacco Use Types Packs/Day Years Used Date Smoking Tobacco: Never Sex Assigned at Date Recorded Female 08/17/2018 10:39 PM COLLEGE ATHLETE documented as of this encounter Progress Notes Joo Watson - 12/27/2010 8:45 AM CDT Director Of Social Services: Joo Watson Status: Final Encounter: 2010-12-27 08:45:00.000 Type: Weight Maintenance Reason For Visit Patient is seen at the consultation request of Dr. Bernal and Dr Rangel for morbid obesity associated with: Sleep Apnea GERD Depression Nonalcoholic Steatohepatitis Dyspnea Patient is interested in attaining healthier weight to diminish current health problems related to co-morbid conditions. History Weight History Onset : as adult at age 32 after first divorce, emotional eating; lost weight for some time and then gained again with father's at age 42; again lost weight and then when could notexercise due to lung problems has been gaining weight and has kept it for 4-5 years; has gained weight with prednisone for breathing and gains with that - has happened several times in last 5 years (just off a course of prednisone) - gets severe hungries with prednisone; recently started on metformin for diabetes Previous attempts at weight loss: self-imposed calorie restriction, exercise with usual success. 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 Single. Children overweight.. Food Life: Binging, Cravings for sweets and chocolate, Emotional eating, severe hunger with prednisone - has been on repeatedly in last 5 years. Food day: Breakfast: nuts, or eggbeater with veggies, or cottage cheese. Lunch: nuts or coffee with cream/agave, or salad or soup, sometimes lunch meat. Dinner: chicken/veg ; or turkey tacos with the salad Snacks: nuts; if emotional or steroids will make chips at home Caloric beverages: 1-2 glasses of skim milk, coffee with cream, tea with agave, water -flavored Activity: has been to pulmonary rehab and is to try to do what can - she is still not sure what she can do; and can't walk far; has recumbent bike at home and can go for 10 minutes on that. Vital Signs Recorded by Trixie Wong on 27 Dec 2010 09:06 AM BP:136/75, LUE, Sitting, HR: 79 b/min, Height: 62 in, Weight: 218.7 lb, BMI: 40 kg/m2. Allergies Cipro TABS Darvocet-N 50 TABS Vicodin TABS. Current Meds EpiPen 2-Db 0.3 MG/0.3ML (1:1000) SLOAN;INJECT 0.3ML INTRAMUSCULARLY DIRECTED.; Rx Advair Diskus 500-50 MCG/DOSE MISC;USE ONE INHALATION TWICE A DAY; Rx Ibuprofen 200 MG Tablet;TAKE 1 TABLET 3 TIMES DAILY NEEDED.; RPT Furosemide 20 MG Tablet;TAKE 1 TABLET TWICE DAILY.; RPT Ventolin 90 MCG/ACT AERS;INHALE 1 TO 2 PUFFS EVERY 4 TO 6 HOURS NEEDED.; RPT Nasonex 50 MCG/ACT Suspension;INSTILL 2 SQUIRT EVERY 12 HOURS; Rx Omeprazole 20 MG Capsule Delayed Release;TAKE 1 CAPSULE DAILY.; Rx Singulair 10 MG Tablet;TAKE 1 TABLET DAILY.; Rx Potassium 99 MG Tablet;TAKE 1 TABLET TWICE DAILY; RPT Nuvigil 250 MG Tablet;TAKE 1 TABLET DAILY; RPT Requip 0.5 MG Tablet;TAKE 1 TABLET BEDTIME; RPT BusPIRone HCl 5 MG Tablet;TAKE 1 TABLET TWICE DAILY.; RPT Albuterol Sulfate (2.5 MG/3ML) 0.083% Nebulization Solution;USE 1 UNIT DOSE IN NEBULIZER EVERY 4 TO 6 HOURS NEEDED.; RPT Tramadol HCl 50 MG Tablet;TAKE 1 TABLET 3 TIMES DAILY.; Rx AAA-MED RECONCILE;Per patient.; RPT Namenda Titration Db 5 (28)-10 (21) MG Tablet;TAKE DIRECTED.; RPT METFORMIN ER 500MG TABS;1 tablet twice daily; RPT. Assessment ASSESSMENT: Mature onset morbid obesity without significant element of familial/genetic influence with current health consequences. Complicated by hunger disorder related to prednisone recurrent treatment and some stress eating which has been previously controllable by exercise and now not able to exercise Weight loss ability impacted by: functional impairment, strong emotional component. Plan Food Plan: Volumetrics Activity Plan: as can with recumbent bike at home Medication: Start Byetta. There is mutual understanding of the goals and risks of this therapy. Educated on dosage regimen and possible side-effects. RTC: 8 weeks Time: 30/40 minutes spent on counseling and education. Orders Byetta 5 MCG Pen 5 MCG/0.02ML Solution;Inject 5mcg subcutaneously twice daily; Qty3; R3; Rx. BD ultra-fine Pen needles, 31ga.x5/16 short;use with byetta- use a new needle each time you inject;[id number]; R0; Rx. Signature Signed By: Joo Watson M.D.; 12/27/2010 10:07 AM COLLEGE ATHLETE; Author. documented in this encounter Plan of Treatment Upcoming Encounters Date Type Specialty Care Team Description 05/19/2022 Office Visit ENT Dima Hidalgo M D [address] [place], [place] [address] (Sarah pino) 08/02/2022 Office Visit Neurology Yair Campos MD [address] [place], [place] [address] [place] [address] (Wo rk) documented as of this encounter Visit Diagnoses Not on filedocumented in this encounter
--- OUTSIDE RECORDS SUMMARY | 2022-05-09 11:09 | XMS_ITS | Encounter Summary ---
:1955 Author Organization [place] Address [address] [facility] [place] [address] Care Team Providers Name Role Phone Verified, Pcp Unknown Primary Care Provider Unavailable Encounter Details Date Type Department Care Team Description 02/09/[address] 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 documented in this encounter Results Pulmonary function test procedure (02/09/2011 1:39 AM CDT) [facility] Method Time Signature Pulmonary COPATH Function Test Name: ? BECKI MOORE ?ID: ?[id number] Doctor: ?SUYS NAVARRO ? Height: ?61.50 in ? Age: ?? 56 [place] ?Cirilo Carmina ? Weight: ? 216.60 lbs ?? Sex: ?? Female Date: ?02/09/2011 ?Time: 01:39:46 ?Race: ?<Unspecified> PT ID: ? [id number] ?Doctor ID: Diagnosis: ? ASTHMA, SOB Dyspnea: ?After any exertion Cough: ? No Cough Wheeze: ?No Wheeze Post-Test Comments: Good patient effort & cooperation. Current hemoglobin unavailable for correction of the DLCO. ? PRE-BRONCH ? POST-BRONCH ? Oralia ? Prd ? %Prd ?Oralia ?%Prd ? %Chg SPIROMETRY FVC (L) ?2.20 ?3.11 ? 71 FEV1 (L) ? 1.80 ?2.43 ? 74 FEV1/FVC (%) ? 82 ?79 ?104 FEV1/SVC (%) ? 84 ?78 ?107 FEV1/FEV6 (%) ?82 ?81 ?101 FEF 25-75% ? 1.80 ?2.37 ? 76 FEF Max (L/sec) ?6.42 ?6.12 ?105 FIVC (L) ? 2.21 FIF Max (L/sec) ?4.26 ?4.21 ?101 LUNG VOLUMES SVC (L) ?2.15 ?3.11 ? 69 IC (L) ? 2.11 ?2.06 ?103 ERV (L) ?0.03 ?1.05 ? 3 DIFFUSION DLCOunc ? 17.46 ?? 21.05 ? 83 DL/VA ?5.29 ?4.50 ?11 7 VA (L) ? 3.30 ?4.68 ? 71 INTERPRETATION: Although the FEV1 and FVC are reduced, the FEV1/FVC ratio is increased. ??The inspiratory flow rates are within normal li mits. ??The slow vital capacity is reduced. ??The diffusing capacity is normal. IMPRESSION: Restriction Possible, Lung Volumes would be necessary to con firm Normal Diffusing Capacity, uncorrected for Hgb This preliminary report should not be used clinically unless reviewed and signed by a physician. MIGUELINA HUNTER Specimen (Source) Anatomical Collection Method Collection Time Re ceived Time Location / / Volume Laterality 02/09/2011 1:39 AM CDT Doctor Unknown MD PFT ORDERABLES Performing Organization Address City/State/ZIP Code Phon e Number [place] documented in this encounter Visit Diagnoses Not on filedocumented in this encounter Care Teams Motorcycle Tester Relationship Specialty Start Date End Date Verified, Pcp Unknown PCP - General 01/06/11 2 documented as of this encounter
--- OUTSIDE RECORDS SUMMARY | 2022-05-09 11:09 | XMS_ITS | Encounter Summary ---
:1955 Author Organization [place] Address [facility] 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 Yue Rangel Order: PFT (loop/dlco, lung volumes) with next visit in January. Order received by: Cherise Baeza RN . Signature Signed By: Cherise Baeza RN; 11/30/2010 1:51 PM TRUCK DRIVER HEAVY. Signed By: Yue Rangel M.D.,Fellow; 12/02/2010 3:41 PM TRUCK DRIVER HEAVY. documented in this encounter Plan of Treatment Upcoming Encounters Date Type Specialty Care Team Description 05/19/2022 Office Visit E[facility] D[facility]idalgo M D [address] [facility] [place], [place] [address] (Wo rk) 08/02/2022 Office Visit Neurology Yair Campos MD [address] [facility] [place] [address] (Wo rk) documented as of this encounter Visit Diagnoses Not on filedocumented in this encounter
--- OUTSIDE RECORDS SUMMARY | 2022-05-09 11:09 | XMS_ITS | Encounter Summary ---
:1955 Author Organization [place] Address [address] [facility] 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 armodafinil (NUVIGIL) 250 Take 250 mg by mouth 0 02/19/2015 MG TABS every morning. fluticasone-salmeterol Inhale 1 puff into 0 08/17/2018 (ADVAIR DISKUS) 500-50 the lungs every 12 MCG/DOSE diskus inhaler hours. furosemide (LASIX) 20 MG Take 1 tablet by 0 08/17/2018 tablet mouth 2 times daily. ibuprofen (ADVIL,MOTRIN) Take 400 mg by mouth 0 05/26/2014 200 MG tablet every 4 hours as needed. MetFORmin (GLUCOPHAGE) Take 500 mg by mouth 0 08/16/2016 500 MG tablet 2 times daily (with meals). Potassium Gluconate 595 Take 1 tablet by 0 201008/17/2018 MG TABS mouth 2 times daily. documented as of this encounter Plan of Treatment Upcoming Encounters Date Type Specialty Care Team Description 05/19/2022 Office Visit ENT Dima Hidalgo M D [address] [place], [place] [address] (Wo rk) 08/02/2022 Office Visit Neurology Yair Campos MD [address] [place] [address] (Wo rk) documented as of this encounter Procedures Procedure Name Priority Date/Time Associated Diagnosis Comme nts GLUCOSE BY METER Routine 11/10/2010 2:54 PM Resul ts for this CDT procedure are i n the results section. documented in this encounter Results (ABNORMAL) Glucose by meter (11/10/2010 2:54 PM CDT) P athologist Signature Glucose 127 (H) 60 - 99 [place] mg/dL [facility] Specimen Anatomical Collection Method Collection Time Receive d Time (Source) Location / / Volume Laterality 11/10/2010 2:54 PM 1 3:15 CDT PM CDT Gifty Bernal MD LAB - [facility] POCT Performing Organization Address City/State/ZIP Code Phon e Number M [facility] [address] [place], [place] [address] [facility] documented in this encounter Visit Diagnoses Not on filedocumented in this encounter
--- OUTSIDE RECORDS SUMMARY | 2022-05-09 11:09 | XMS_ITS | Encounter Summary ---
:1955 Author Organization [place] Address [address] [facility] 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 No. Pain Eval Current history of pain associated with this visit is denied. Active Problems Abnormal Pap Smear Of Cervix (795.09) Asthma (493.90) Depression (311) Do Not Feel Rested After Adequate Night's Sleep Esophageal Reflux (530.81) Excessive Sleepiness During The Day (Daytime Somnolence) Nocturnal Difficulty Breathing; Causing Awakening From Sleep Nonalcoholic Steatohepatitis (571.8) Obesity (278.00) Obstructive Sleep Apnea (327.23) Restless Legs Syndrome (333.94) Rhinitis (472.0) Snoring (Symptom) (786.09). Personal Hx Behavioral history: No tobacco use. Home environment: No secondhand tobacco smoke in home. Vital Signs Recorded by Trixie Wong on 27 Dec 2010 09:06 AM BP:136/75, LUE, Sitting, HR: 79 b/min, Height: 62 in, Weight: 218.7 lb, BMI: 40 kg/m2. Allergies Cipro TABS Darvocet-N 50 TABS Vicodin TABS. Current Meds Med list printed and given to patient. EpiPen 2-Db 0.3 MG/0.3ML (1:1000) SLOAN;INJECT 0.3ML [...] ER 500MG TABS;1 tablet twice daily; RPT. Signature Signed By: Trixie Wong MA; 12/27/2010 9:08 AM POTASH FLAKER. documented in this encounter Plan of Treatment Upcoming Encounters Date Type Specialty Care Team Description 05/19/2022 Office Visit ENT Dima Hidalgo M D [address] [facility] [place], [place] [address] (Wo rk) 08/02/2022 Office Visit Neurology Yair Campos MD [address] [place] [address] (Wo rk) documented as of this encounter Visit Diagnoses Not on filedocumented in this encounter
--- OUTSIDE RECORDS SUMMARY | 2022-05-09 11:09 | XMS_ITS | Encounter Summary ---
:1955 Author Organization [place] Address [facility] [place] [address] Care Team Providers Name Role Phone Verified, Pcp Unknown Primary Care Provider Unavailable Aleks Lopez MD Primary Care Provider Aleks Lopez MD Primary Care Provider Chelsy Bynum MD Haroldo Primary Care Provider Aleks Lopez MD Primary Care Provider Tali Vilchis MD Unavailable Anat Fuller MD Unavailable [phone] Vladislav Fuentes MD Unavailable [phone] Janny Hutton-C Unavailable [phone] No Ref-Primary, Physician Primary Care Provider [phone] Krystin Christie APRN OIL RIG DRILLER Primary Care Provider [phone] Comfort Nichols MD Unavailable Florecita Bryan RN Unavailable Krystin Christie APRN, CNP Unavailable [phone] Comfort Nichols MD Unavailable Krystin Christie APRN, CNP Unavailable [phone] Sonja Tinajero [facility] Unavailable [phone] Kelly De Oliveira [facility] Unavailable Eduin Wilhelm Unavailable Unavailable Cecilia Aleman MD Unavailable [phone] Thalia Glass MD Unavailable [phone] Vinita Linares RN Unavailable Unavailable Krystin Christie APRN [facility] Primary Care Provider [phone] PatDeyanira [facility] Unavailable Nadira Nichols RN Unavailable Unavailable Frank Argueta Unavailable Unavailable Thalia Glass MD Unavailable [phone] Anat Fuller MD Unavailable [phone] Eric Abdi MD Unavailable [phone] Cecilia Aleman MD Unavailable [phone] Sonja Tinajero [facility] Unavailable [phone] Encounter Details Date Type Department Care Team Description 05/11/2011 Records - [facility] Provider, Histo rical [facility] Diagnostic Imaging [address] [place] [address] Social History Tobacco Use Types Packs/Day Years Used Date Smoking Tobacco: Never Smokeless Tobacco: Never Alcohol Use Standard Drinks/Week Comments No 0 (1 standard drink = 0.6 oz pure alcoho l) Sex Assigned at Date Recorded Female 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 documented as of this encounter Plan of Treatment Upcoming Encounters Date Type Specialty Care Team Description 05/19/2022 Office Visit ENT Dima [facility]idalgo M D [address] [facility] [place], [place] [address] (Wo rk) 08/02/2022 Office Visit Neurology Yair Campos MD [address] [place] [phone] (Wo rk) documented as of this encounter Procedures Procedure Name Priority Date/Time Associated Diagnosis Comme nts XR TOE RIGHT G/E 2 Routine 05/11/2011 12:00 AM Re sults for this VIEWS CDT procedure are i n the results section. documented in this encounter Results XR Toe Right G/E 2 Views (05/11/2011 12:00 AM CDT) Anatomical Region Laterality Modality Foot, Right Foot Right Other Specimen (Source) Anatomical Location Collection Method / Collectio n Time Received Time / Laterality Volume Narrative 05/11/2011 12:00 AM CDT See Historical Hospital Medical Record f or documentation Procedure Note Provider, Historical - 12/17/2020Formatt ing of this note might be different from the original. See Historical Hospital Medical Record f or documentation Historical Provider IMG DIAGNOSTIC IMAGING ORDER CHAI documented in this encounter Visit Diagnoses Not on filedocumented in this encounter Care Teams Manager Training And Development Relationship Specialty Start Date End Date Verified, Pcp PCP - General 01/06/11 07/19/11 Unknown Aleks Lopez MD PCP - General 07/20/11 10/03/11 Aleks Lopez MD PCP - General 10/04/11 05/25/14 Haroldo Valentino MD PCP - General Internal Medicine 05/26/14 10/17/14 [facility] [address] [place] [address] [place] [phone] Aleks Lopez MD PCP - General Family Practice 10/18/14 11/01/16 No Ref-Primary, PCP - General 11/02/16 12/14/17 Physician Krystin Christie PCP - General Nurse Practitioner 12/15/17 09/08/19 SAURABH Engel [facility] [address] [facility] [place] [address] Comfort Nichols MD PCP - Assigned PCP 04/08/18 08/25/18 [address] [facility] [place] [id number] Krystin Christie PCP - Assigned PCP 08/26/18 09/18/18 SAURABH Engel OIL RIG DRILLER [address] [facility] [place] [phone] Krystin Christie PCP - General Nurse Practitioner 09/18/19 SAURABH Engel OIL RIG DRILLER [address] [facility] [place] [phone] Tali Vilchis MD INTERNAL MEDICINE - 04/10/15 ENDOCRINOLOGY, [address] [facility] [address] [place], [place] [address] Anat Fuller MD Internal Medicine 04/10/1509/16 MD Renee [address] [facility] [address] [place], [place] [address] Vladislav Fuentes MD Psychiatry 06/30/15 06/30/[address] [facility] [address] [place], [place] [phone] Janny Hutton Physician Sewing Machine Operator Paper Bags Physician Sewing Machine Operator Paper Bags 06/30/15 09/17/19 CARLA Mckeon [address] [facility] [address] [place], [place] [address] Florecita Bryan, Lead Electric Trucker 08/17/18 RN Comfort Nichols MD Assigned PCP 04/08/18 08/25/18 [facility] [place] [phone] Krystin Christie Assigned PCP 08/26/18 01/28/21 SAURABH Engel OIL RIG DRILLER [address] [place] [address] Sonja Tinajero Pharmacist Pharmacist 12/24/18 09/17/19 Dev, [facility] [address] [place] [address] Kelly De Oliveira, Pharmacist Pharmacist 01/21/19 06/24/19 [facility] [address] [place] [address] Eduin Wilhelm Personal Advocate & 06/17/19 09/17/19 Liaison (PAL) Cecilia Aleman MD Urology 07/22/19 09/17/19 MD Lyly [address] [facility] [address] [place] [address] Joan Monroe MD Obstetrics 07/22/19 09/17/19 Thalia Engel MD [address] [address] Vinita Linares, RN Registered Nurse 07/22/19 09/17/19 Deyanira [place], Pharmacist Pharmacist 01/13/20 08/24/20 [facility] [address] [place], [place] [phone] Nadira Nichols, RN Lead Electric Trucker Primary Care - CC 01/21/20 03/02/20 Frank Argueta Community Health Worker 01/21/2002/14 Joan Monroe, Assigned OBGYN Provider 05/08/2001/16/21 Thalia Engel MD [address] [facility] [address] [place], [place] [phone] Anat Fuller Assigned Gastroenterology 05/08/20 12/12/20 MD Renee Provider [address] [place] [address] Eric Abdi Assigned Musculoskeletal 05/08/20 03/27/21 MD Joo Provider TRIA [address] [place] [address] Cecilia Aleman Assigned Surgical 05/08/20 03/06/21 MD Lyly Provider [address] [facility] [address] [place] [address] Sonja Tinajero Ka Pharmacist 08/24/20 Dev, [facility] [address] [place] [address] documented as of this encounter
--- OUTSIDE RECORDS SUMMARY | 2022-05-09 11:09 | XMS_ITS | Encounter Summary ---
:1955 Author Organization [place] Address [address] [facility] [place] [address] Care Team Providers Name Role Phone Aleks Lopez MD Primary Care Provider Reason for Visit Reason Onset Date Comments Refill Request 08/10/2011 Encounter Details Date Type Department Care Team Description 08/10/2011 Refill Weight Management Ad Minnie Carlson, RN Refill Request Jonny [address] CLINIC 1E 1st Floor, Clinic [address] [place] [phone] Social History Tobacco Use Types Packs/Day Years Used Date Smoking Tobacco: Never Smokeless Tobacco: Never Alcohol Use Standard Drinks/Week Comments No 0 (1 standard drink = 0.6 oz pure alcoho l) Sex Assigned at Date Recorded Female 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 documented as of this encounter Plan of Treatment Upcoming Encounters Date Type Specialty Care Team Description 05/19/2022 Office Visit ENT Dima Hidalgo M D [address] [place] [phone] (Wo rk) 08/02/2022 Office Visit Neurology Yair Campos MD [address] [place] [phone] (Sarah pino) documented as of this encounter Visit Diagnoses Diagnosis DM type 2 (diabetes mellitus, type 2) (H ) - Primary Type II or unspecified type diabetes almita litus without mention of complication, not stated as uncontrolled documented in this encounter Care Teams Drug Regulatory Affairs Specialist Relationship Specialty Start Date End Date Aleks Lopez MD PCP - General 07/20/11 10/03/11 documented as of this encounter
--- OUTSIDE RECORDS SUMMARY | 2022-05-09 11:09 | XMS_ITS | Encounter Summary ---
:1955 Author Organization [place] Address [address] [facility] [place] [address] Care Team Providers Name Role Phone Verified, Pcp Unknown Primary Care Provider Unavailable Encounter Details Date Type Department Care Team Description 02/09/2011 Office Visit-[facility] INTERFACE [facility]MP DEPT Unknown, Provider Social History Tobacco Use Types Packs/Day Years Used Date Smoking Tobacco: Never Sex Assigned at Date Recorded Female 08/17/2018 10:39 PM HEAD OF ETHICS AND COMPLIANCE documented as of this encounter Progress Notes Unknown, Provider - 02/09/2011 2:20 PM CDT Research Home Economist: Vlad Frederick Status: Final Encounter: 2011-02-09 14:20:00.000 Type: Rooming Note Reason For Visit Follow up for SOB. Do you have any other appointments, tests or procedures within the [place] system for this same day? Yes, PFT's. Have you had a recent hospitalization? No . Pain Eval Current history of pain associated with this visit is denied. Personal Hx Behavioral history: No tobacco use. Home environment: No secondhand tobacco smoke in home. Vital Signs Recorded by Vlad Frederick on 09 Feb 2011 02:26 PM BP:147/75, RUE, Sitting, HR: 82 b/min, Resp: 16 r/min, Normal, Temp: 98.8 F, Oral, Height: 157.5 cm, Weight: 98 kg, BMI: 39.5 kg/m2, Pain Scale: 0, O2 Sat: 96 (%SpO2), RA. Allergies Cipro TABS Darvocet-N 50 TABS Vicodin TABS. Current Meds Med list offered and patient declined. EpiPen 2-Db 0.3 MG/0.3ML (1:1000) SLOAN;INJECT 0.3ML [...] Tablet;TAKE 1 TABLET 3 TIMES DAILY.; Rx Namenda Titration Db 5 (28)-10 (21) MG Tablet;TAKE DIRECTED.; RPT METFORMIN ER 500MG TABS;1 tablet twice daily; RPT Byetta 5 MCG Pen 5 MCG/0.02ML Solution;Inject 5mcg subcutaneously twice daily; Rx BD ultra-fine Pen needles, 31ga.x5/16 short;use with byetta- use a new needle each time you inject;Rx Accu-Chek Advantage Diabetes KIT;USE DIRECTED.; Rx Accu-Chek Advantage Test Strip;TEST TWICE DAILY.; Rx Accu-Chek Multiclix Lancets Miscellaneous;test twice dialy; Rx AAA-MED RECONCILE;Per patient.; RPT Pristiq 50 MG Tablet Extended Release 24 Hour;TAKE 1 TABLET DAILY; RPT. Signature Signed By: Vlad Frederick CMA; 02/09/2011 2:29 PM HEAD OF ETHICS AND COMPLIANCE. documented in this encounter Plan of Treatment Upcoming Encounters Date Type Specialty Care Team Description 05/19/2022 Office Visit ENT Dima Hidalgo M D [address] [place] [address] (Wo rk) 08/02/2022 Office Visit Neurology Yair Campos MD [address] [place] [address] (Wo rk) documented as of this encounter Visit Diagnoses Not on filedocumented in this encounter Care Teams Market Research Executive Relationship Specialty Start Date End Date Verified, Pcp Unknown PCP - General 01/06/11 2 documented as of this encounter
--- OUTSIDE RECORDS SUMMARY | 2022-05-09 11:09 | XMS_ITS | Encounter Summary ---
:1955 Author Organization [place] Address [facility] 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 Alert and appropriate, concerns about sedation with current allergies. No sedation given just lidocaine used. 1559 Patient tolerated procedure well 1600 report given to Julianna Hall RN documented in this encounter Nursing Notes Anat Smith, MIKE - 11/10/2010 4:09 PM CDT 1600 random liver biopsy sent to lab documented in this encounter Plan of Treatment Upcoming Encounters Date Type Specialty Care Team Description 05/19/2022 Office Visit ENT Dima [facility]idalgo M D [address] [facility] [place], [place] [address] (Wo rk) 08/02/2022 Office Visit Neurology Yair Campos MD [address] [facility] [place] [address] (Wo rk) documented as of this encounter Procedures Procedure Name Priority Date/Time Associated Diagnosis Comme nts IR LIVER BIOPSY Routine 11/10/2010 4:00 PM Liver function test Results for this PERCUTANEOUS CDT abnormality procedure are i n the results section. SURGICAL PATHOLOGY Routine 11/10/2010 3:56 PM Res ults for this EXAM CDT procedure are i n the results section. documented in this encounter Results INT Liver biopsy percutaneous (11/10/2010 4:00 PM CDT) Anatomical Region Laterality Modality Abdomen/Pelvis Radio Fluoroscopy Specimen (Source) Anatomical Collection Method Collection Time Re ceived Time Location / / Volume Laterality 11/10/2010 4:00 PM CDT Impressions 11/10/2010 4:28 PM CDT PROCEDURES 11/10/2010: 1. Ultrasound guided percutaneous liver biopsy. Clinical History: Fibrosis. Staging live r biopsy requested. Comparisons: MRI 03/16/2010 Staff Radiologist: Nam Hameed MD Medications: No intravenous sedation was administered. Vital signs and sedation monitored by nursing staff unde r Interventional Radiologists supervision. The patient remained stable throughout the procedure. PROCEDURE: The patient understood the li mitations, alternatives, and risks of the procedure and requested the procedure be performed. Both written and oral consent were obtained. Limited preprocedural scan performed dem onstrated adequate liver position for biopsy. The right upper quadrant was prepped and draped in the usual sterile fashion. Ten to one volume mixture of 1% lidocaine without epinephrine buffered with 8.4% bicarbonate solution was used for local anesthesia. Under ultrasound guidance, a 17 gauge co axial introducer needle was advanced into the left liver lobe from a subcostal approach. Permanent copy of the image documenting the needle position was entered into the patients record. Two 18 gauge core biopsies were obtained with a [employer] biopsy gun and submitted to Pathology in formalin. Good hemostasis was achieved with Gelfoa m plugs that were deployed as the needle was removed. Sterile dressing applied. Limited postprocedural scan demonstrated no immediate complication. IMPRESSION: 1. Two 18 gauge core biopsies obtained o f the left liver lobe under ultrasound guidance. Procedure performed by me. I, Dr. Hameed w as present for the entire procedure. Gifty Bernal MD IMG IR ORDERABLES Surgical pathology exam (11/10/2010 3:56 PM CDT) Component Value Ref Test Analysis Performed At [facility] [employer] Range Method Time Signature Copath Report Patient Name: BECKI MOORE MR#: [id number] Specimen #: [id number] Collected: 11/10/2010 Received: 11/11/2010 Reported: 11/12/2010 15:50 Ordering Phy(s): ERIS HAMEED SPECIMEN(S): Liver needle biopsy FINAL DIAGNOSIS: Liver, random liver biopsy: ? - Moderate macrovesicular steatosis. ? - Mild steatohepatitis. ? - No evidence of fibrosis or cirrhosis. COMMENT: Trichrome and reticulin stains performed. I have personally reviewed all specimens and or slides, incl uding the listed special stains, and used them with my medical judgeme nt to determine the final diagnosis. Electronically signed out by: Selvin Pena M.D., [facility] CLINICAL HISTORY: 55-year-old female with elevated liver enzymes. GROSS: One specimen is received labeled with the patient's name and medical record number. The specimen is designated random [place] liver biopsies. ? ?The specimen consists of three yellow/mota 0.05 cm diameter tissue cores r anging from 0.8 to 1.9 cm in length, entirely submitted. (Jar 0) (JAIRO Devlin/mm 11/11/10) MICROSCOPIC: Microscopic examination is performed. Nam Pena M.D./dennis 11/12/10 TESTING LAB LOCATION: [facility], [facility] [address] [place] [address] ?? [phone] COLLECTION SITE: Client: [facility], [place] Location: UUIR (B) Specimen Anatomical Collection Method Collection Time Receive d Time (Source) Location / / Volume Laterality 11/10/2010 3:56 PM 1 7:29 CDT AM CDT Eris ELDER - XU PADILLA Performing Organization Address City/State/ZIP Code Phon e Number COPATH documented in this encounter Visit Diagnoses Diagnosis Liver function test abnormality Other abnormal blood chemistry documented in this encounter Administered Medications Inactive Administered Medications - up to 3 most recent administrations Medication Order MAR Action Action Date Dose Rate Site lidocaine BUFFERED 1 % 1 % solution Starting on Mon11/10/10 at 1530, For 1 dose, Selvin PRICE: Cabinet Override lidocaine BUFFERED 1 % Given by Other Clinician 11/10/2010 3:45 PM CD T 9 mLs solution 7 mL 7 mL, Injection, ONCE, On Mon11/10/10 at 1530, For 1 dose documented in this encounter
--- OUTSIDE RECORDS SUMMARY | 2022-05-09 11:09 | XMS_ITS | Encounter Summary ---
:1955 Author Organization [place] Address [facility] [place] [address] Care Team Providers Name Role Phone Verified, Pcp Unknown Primary Care Provider Unavailable Reason for Visit Reason Comments Consult Encounter Details Date Type Department Care Team Description 03/02/2011 Office Visit Diabetes and Endocri ne Tali Vilchis Subclinical hypothyroidism; 6th Floor, Clinic Mac Calderón MD Obesity; [facility] [address] [facility] Diab etes mellitus type II; [facility] 101 [place]; 516 [place], [place] Hypertension, benign 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 documented as of this encounter Last Filed Vital Signs Vital Sign Reading Time Taken Comments Blood Pressure 118/71 03/02/2011 12:53 PM CDT Pulse 95 03/02/2011 12:53 PM CDT Temperature 36.9 ??C (98.5 ??F) 03/02/2011 12:53 PM CDT Respiratory Rate - - Oxygen Saturation - - Inhaled Oxygen Concentration - - Weight 98.4 kg (217 lb) 03/02/2011 12:53 PM CDT Height 158.1 cm (5' 2.25) 03/02/2011 12:53 PM CDT Body Mass Index 39.37 03/02/2011 12:53 PM CDT documented in this encounter Patient Instructions Patient InstructionsNaseemchelseaSybil - 03/02/2011 1:54 PM CDT February 2011Monday 1 2 3 4 5 6 7 8 9 10 11 12 13 14 15 16 17 [facility] NEW ENDOCRINE 12:10 PM (40 min.) Tali Vilchis MD Diabetes and Endocrine LAB 2:00 PM (15 min.) Mgmt, Specimen [facility], [place], Lab 18 19 20 21 22 23 24 25 26 27 28 29 30 MarchMonday 1 2 3 4 5 6 7 8 9 10 11 12 13 14 15 16 17 18 19 20 21 [facility] LAB WITH APPOINTMENT 11:45 AM (15 min.) Uutxlb [facility] TXC LAB [facility] RETURN GENERAL LIVER 12:20 PM (20 min.) Gifty Bernal [facility] GI 22 23 24 25 26 27 28 29 30 documented in this encounter Progress Notes Tali Vilchis MD - 03/02/2011 1:10 PM CDT ASSESSMENT/ PLAN: 1. Subclinical hypothyroidism is documented since January,. Because of association between urticaria and autoimmune thyroid disease, I think it is worthwhile to try treatment of this condition. Start L-T4 25 mcg/day Labs today to include BILL, TPO 2. Obesity - I see she was started on Byetta in Weight management clinic 12/27/10 - I question compliance based on our conversation today 3. HTN 4. Urticaria- this dates back to 2006. I do think of urticaria as being associated with any endocrine -associated disease other than possibly thyroid disease (see # 1) or mastocytosis. 5. Diabetes mellitus type 2- last A1c was almost a year ago. 6. Sleep apnea on CPAP - inadequately treated sleep apnea can commonly give high catecholamines which makes me wary of screening for pheochromocytoma. I have very little suspicion of pheo but will check plasma metanephrine in the hope it is normal and we can lay the issue to rest. Tali Vilchis MD CC/HPI:Becki is a 56 year old female seen in consultation at the request of Dr Janny Montez for possible pheochromocytoma I have reviewed the pulmonary medicine note dated 02/09 which indicates they were checking urine metanephrine and 5HIAA. Becki indicates that she did turn in a urine today. The results are pending. She has no past history of thyroid disease. TFTs on 02/09 were abnormal with TSH 5.89, free T4 1.13 ng/dl. I can see she had similar TFTS 01/23. She brought in a series of pictures showing the progression of her angioedema, starting around mouthwith rapid swelling of face to the piont of eyes being swollen shut, then back to normal the next day. Review of the record shows she lst saw Dr Julius Ribera in allergy and asthma clinic 10/21. I have reviewed his notes from then which suggest she dated the onset of urticaria and angioedema to 07/23. She reports that she had hives in the past for 1 year and 9 months despite prednisone and antihistamines-- treated by Dr Ribera and her PCP then. She last used prednisone in 11/24 - at that time she had a little break out. Her PCP has called in rx for her to take prednisone now. She has thought her diagnosis is borderline DM. She has been on metformin for months. She checks herBS sometimes - last did it a few days ago - in the low 100s. [facility] Latest Ref Rng 02/09/2011 02/05/2010 TSH 0.4 - 5.0 mU/L 5.89 (H) 6.27 (H) T4 FREE 0.70 - 1.85 ng/dL 1.13 0.74 TRIIODOTHYRONINE(T3) 60 - 181 ng/dL THYROGLOBULIN ANTIBODY Low: <40 IU/mL THYR PEROXIDASE SKINNY Low: <35 IU/mL ENDO THYROID [facility] Latest Ref Rng 05/22/2007 11/13/2006 TSH 0.4 - 5.0 mU/L 3.19 3.12 T4 FREE 0.70 - 1.85 ng/dL 1.07 TRIIODOTHYRONINE(T3) 60 - 181 ng/dL 138 THYROGLOBULIN ANTIBODY Low: <40 IU/mL <20 THYR PEROXIDASE SKINNY Low: <35 IU/mL <10 Past Medical History Past Medical History Diagnosis Date ??? Hypertension ??? Asthma ??? Arthritis ??? Restrictive lung disease ??? Blood transfusion ??? Angioedema ??? Sleep apnea ??? Restless legs syndrome ??? Depression ??? VILLAREAL (nonalcoholic steatohepatitis) ??? Lower extremity edema Allergies Allergies Allergen Reactions ??? Cipro (Quinolones) Itching and Difficulty breathing ??? Vicodin (Hydrocodone-acetaminophen) Itching and Difficulty breathing ??? Codeine Sulfate Other (See Comments) Blacked out ??? Darvocet (Propoxyphene N-apap) Itching Medications Current outpatient prescriptions Medication Sig ??? busPIRone (BUSPAR) 5 MG tablet Take 1 tablet by mouth 2 times daily. ??? Exenatide (BYETTA 5 MCG PEN) 5 MCG/0.02ML SOLN Inject 5 mcg Subcutaneous 2 times daily. ??? Memantine HCl (NAMENDA TITRATION KITTY) 5 (28)-10 (21) MG TABS Take as directed ??? mometasone (NASONEX) 50 MCG/ACT nasal spray 1 spray by Both Nostrils route every 12 hours. ??? omeprazole (PRILOSEC) 20 MG capsule Take 1 capsule by mouth daily. ??? desvenlafaxine (PRISTIQ) 50 MG 24 hr tablet Take 1 tablet by mouth daily. ??? ropinirole (REQUIP) 0.5 MG tablet Take 1 tablet by mouth At Bedtime. ??? montelukast (SINGULAIR) 10 MG tablet Take 1 tablet by mouth daily. ??? tramadol (ULTRAM) 50 MG tablet Take 1 tablet by mouth 3 times daily. ??? glucose blood test strips (ACCU-CHEK [...] by mouth every 4 hours as needed. byetta bid before meals?? Family History family history includes Thyroid in her daughter. - + thyroid grandmother, aunts, cousins (2), + Carmen thyroiditis in daughter Social History History Substance Use Topics ??? Smoking status: Never Smoker ??? Smokeless tobacco: Never Used ??? Alcohol Use: No on medical leave for depression/ cognitive things ROS Weight is stable; trying to lose weight; she is going to Weight management clinic - she is supposed to take shots 30 minutes before she eats bid. A little and nervous today because starting to break out in hives -had hives yesterday on arms, today on arms, legs, and butt lst had hives about 4 years ago A little swollen around the mouth - Sometimes perspiring on hands Always hot Sleeping better while on medical leave --using CPAP most of the time(except if she falls asleep withlap top on her lap). She used CPAP last night. Sometimes heart racing and pounding too hard to the point it gives a movement sensation in the room;she last had this last night; this is sometimes accompanied by cough. Sometimes nausea, sometimes will even vomit - Memory Depression Cognitive things Headaches in spurts - can have daily for a while, then OK for a few days LMP about 1 year ago 10 system ROS otherwise as per the HPI or negative Physical Exam BP 118/71 Pulse 95 Temp(Src) 98.5 ??F (36.9 ??C) (Oral) Ht 5' 2.25 (1.581 m) Wt 217 lb (98.431 kg) BMI 39.37 kg/m2 Body mass index is 39.37 kg/(m^2). GENERAL : obese middle aged woman In no apparent distress SKIN: Normal color, normal temperature, texture. No hirsutism, alopecia or purple striae. + pink hive type macules on lower abdomen bilaterally, each with diameter in the 1-1.5 cm range EYES: PERRL, EOMI, No scleral icterus, No proptosis, conjunctival redness, stare, retraction MOUTH: Moist, pink; pharynx clear NECK: No visible masses. No palpable adenopathy, or masses. No carotid bruits. THYROID: Not palpable RESP: Lungs clear to auscultation bilaterally CARDIAC: Regular rate and rhythm, normal S1 S2, without murmurs, rubs or gallops ABDOMEN: Normal bowel sounds; soft, nontender, no HSM or masses NEURO: awake, alert, responds appropriately to questions. Cranial nerves intact. Moves all extremities; Gait normal. No tremor of the outstretched hand. DTRs 0/4 , EXTREMITIES: No clubbing, cyanosis or edema. documented in this encounter Plan of Treatment Upcoming Encounters Date Type Specialty Care Team Description 05/19/2022 Office Visit ENT Dima Hidalgo M D [address] [place] [phone] (Sarah pino) 08/02/2022 Office Visit Neurology Yair Campos MD [address] [place] [phone] (Sarah pino) documented as of this encounter Procedures Procedure Name Priority Date/Time Associated Diagnosis Comme nts THYROID PEROXIDASE Routine 03/02/2011 2:09 Subclinical Result s for this ANTIBODY PM CDT hypothyroidism procedure are in the results section. METANEPHRINES FRACT Routine 03/02/2011 2:09 Hypertension, margarito gn Results for this PLASMA PM CDT procedure are i n the results section. HEMOGLOBIN A1C Routine 03/02/2011 2:09 Diabetes mellitus type Results for this PM CDT II procedure are i n the results section. CHROMOGRANIN A Routine 03/02/2011 2:09 Hypertension, benign Re sults for this PM CDT procedure are i n the results section. ANTI THYROGLOBULIN Routine 03/02/2011 2:09 Subclinical Result s for this ANTIBODY PM CDT hypothyroidism procedure are in the results section. documented in this encounter Results (ABNORMAL) Hemoglobin A1c (03/02/2011 2:09 PM CDT) Analysis Performed At Patho logist Time Signature Hemoglobin A1C 6.3 (H) 4.3 - 6.0 [facility] LABS Specimen Anatomical Collection Method Collection Time Receive d Time (Source) Location / / Volume Laterality Blood specimen 03/02/2011 2:09 PM 011 2:10 (specimen) CDT PM CDT Tali Vilchis MD LAB - BLOOD ORDERABLES Performing Organization Address City/State/ZIP Code Phon e Number [phone] [place] [address] LABS Chromogranin A (03/02/2011 2:09 PM CDT) P athologist Signature Chromogranin A 19 [facility] LABS Comment: Reference range: 0 to 95 Unit: ng/mL (Note) TEST INFORMATION: ??Chromogranin A This assay is performed using the [employer] Chromoa(TM)EIA. Results obtained with different assay me thods or kits cannot be used interchangeably. This test uses a kit designated by the [facility] as for research use, not for clinical use. The performance characteristics of this test were valida deborah by [employer] The U.S. Food and Jamison g Administration (FDA) has not approved or cleared this t est. The results are not intended to be used as the sole means for clinical diagnosis or patient management decision s. [employer] is authorized under Clinical Laboratory Imp rovement Amendments (CLIA) and by all states to perform high -complexity testing. Performed by [employer], [address] [place] [id number] [email or web address], Shruthi Santiago MD, Lab. Director Specimen Anatomical Collection Method Collection Time Receive d Time (Source) Location / / Volume Laterality Blood specimen 03/02/2011 2:09 PM 011 2:10 (specimen) CDT PM CDT Tali Vilchis MD LAB - BLOOD ORDERABLES Performing Organization Address [facility] Phon e Number [facility] [address] LABS Metanephrines fract plasma (03/02/2011 2:09 PM CDT) [facility] Method Time Signature Metanephrine SEE NOTE 03/04/2011 11:26 AM [facility] (Note) [facility] LABS ? [place] ?Expected Test ? Result ? LO ??Units ?? Values ------ Metanephrines, Fract., Free, P Normetanephrine, Free ?0.91 ? h ?? n mol/L ??<0.90 Metanephrine, Free ? <0.20 ?nmol/L ??<0.50 ?? Test Performed by: ?? [facility] D[facility] of Lab Med and Pathology ?? [address] [place] [address] ?? Assisted Living Care Manager: Christiano Sy III, M.D. Specimen Anatomical Collection Method Collection Time Receive d Time (Source) Location / / Volume Laterality Blood specimen 03/02/2011 2:09 PM 011 2:10 (specimen) CDT PM CDT Tali Vilchis MD LAB - BLOOD ORDERABLES Performing Organization Address City/[facility] Code Phon e Number [facility] [address] [place] [id number] [facility] LABS Thyroid peroxidase antibody (03/02/2011 2:09 PM CDT) P athologist Signature Thyroid <10 <35 IU/mL [facility] Peroxidase [place] LABS Antibody Specimen Anatomical Collection Method Collection Time Receive d Time (Source) Location / / Volume Laterality Blood specimen 03/02/2011 2:09 PM 011 2:10 (specimen) CDT PM CDT Tali Vilchis MD LAB - BLOOD ORDERABLES Performing Organization Address City/State/ZIP Code Phon e Number [facility] [address] [place] [address] [facility] LABS Anti thyroglobulin antibody (03/02/2011 2:09 PM CDT) Patholo gist Method Time Signature Thyroglobulin <20 <40 IU/mL [facility] Antibody [facility] [place] LAB[facility] Specimen Anatomical Collection Method Collection Time Receive d Time (Source) Location / / Volume Laterality Blood specimen 03/02/2011 2:09 PM 011 2:10 (specimen) CDT PM CDT Tali Vilchis MD LAB - BLOOD ORDERABLES Performing Organization Address City/State/ZIP Code Phon e Number [facility] [address] [place] [address] [facility] LABS documented in this encounter Visit Diagnoses Diagnosis Subclinical hypothyroidism Other specified acquired hypothyroidism Obesity Obesity, unspecified Diabetes mellitus type II Type II or unspecified type diabetes almita litus without mention of complication, not stated as uncontrolled Urticaria Urticaria, unspecified Hypertension, benign Essential hypertension, benign documented in this encounter Care Teams Personal Banking Representative Relationship Specialty Start Date End Date Verified, Pcp Unknown PCP - General 01/06/11 2 documented as of this encounter
--- OUTSIDE RECORDS SUMMARY | 2022-05-09 11:09 | XMS_ITS | Encounter Summary ---
:1955 Author Organization [place] Address [address] [facility] [place] [address] Care Team Providers Name Role Phone Unavailable Primary Care Provider Unavailable Encounter Details Date Type Department Care Team Description 11/10/2010 Hospital Encounter [facility] Edna Bernal [address] Severance MD Shira [address] 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 documented as of this encounter Last Filed Vital Signs Vital Sign Reading Time Taken Comments Blood Pressure 122/66 11/10/2010 5:00 PM CDT Pulse - - Temperature 36.5 ??C (97.7 ??F) 11/10/2010 4:00 PM CDT Respiratory Rate 20 11/10/2010 5:00 PM CDT Oxygen Saturation 98% 11/10/2010 5:00 PM CDT Inhaled Oxygen Concentration - - Weight 99.8 kg (220 lb) 11/10/2010 2:45 PM CDT Height 157.5 cm (5' 2) 11/10/2010 2:45 PM CDT Body Mass Index 40.24 11/10/2010 2:45 PM CDT documented in this encounter Discharge Instructions Discharge InstructionsClaudia Booker RN - 11/10/2010 4:43 PM CDT Discharge Instructions for Liver Biopsy You had a procedure called liver biopsy. A doctor used a special needle to remove a small piece of tissue from your liver. Then it was examined for signs of damage or disease. A liver biopsy is orderedafter other tests have shown that your liver is not working properly. You may also have a liver biopsy when liver disease is suspected, to determine whether there is too much iron in the liver, or to rule out cancer. Home Care ?? Don???t drive for??24 hours after the procedure. ?? Remove the bandage covering the biopsy site??24 hours after the procedure. ?? Rest for??24 hours. ?? Don???t shower for??24 hours after the biopsy. If you wish, you may wash yourself with a sponge or washcloth. When you are able to shower, don???t scrub the site. Gently wash the area and pat it dry. ?? Don???t lift anything heavier than??10??pounds for??3-4 days after the procedure. ?? Ask your doctor when you??can return to work. Follow-Up Make a follow-up appointment as directed by our staff. When to Call Your Doctor Call your doctor immediately if you have any of the following: ?? Bleeding from the biopsy site ?? Dizziness or lightheadedness ?? Sudden or increased shortness of breath ?? Sudden chest pain ?? Fever above??100.4??F ?? Shaking chills ?? Increasing redness, tenderness, or swelling at the biopsy site ?? Drainage from the biopsy site ?? Opening of the biopsy site ?? Increasing pain, with or without activity ?? Call the Interventional Radiology Department at [phone] for any problems. ?? Ask for the Interventional Radiologist television and radio repairer, someone is available 24 hours a day. documented in this encounter Medications at Time [...] times daily. documented as of this encounter Progress Notes Claudia Booker RN - 11/10/2010 5:32 PM CDT Ambulated in hallway and to bathroom, has minimal pain in mid abd area. Site is dry and intact. Did not have sedation so patient is able to drive herself home. Ready for discharge, escorted to [facility]. documented in this encounter Plan of Treatment Upcoming Encounters Date Type Specialty Care Team Description 05/19/2022 Office Visit ENT Dima Hidalgo M D [address] [place], [place] [address] (Wo rk) 08/02/2022 Office Visit Neurology Yair Campos MD [address] [place] [address] (Wo rk) documented as of this encounter Visit Diagnoses Not on filedocumented in this encounter Administered Medications Inactive Administered Medications - up to 3 most recent administrations Medication Order MAR Action Action Date Dose Rate Site 0.9 % sodium chloride IV New Bag 11/10/2010 2:45 PM CDT 1,000 mLs 100 mL/hr solution at 100 mL/hr, Intravenous, CONTINUOUS, Until Discontinued. Start today., IR Pre-procedure, Starting on Mon11/10/10 at 1445, Until Lorena 11/11/10 at 0235 documented in this encounter
--- OUTSIDE RECORDS SUMMARY | 2022-05-09 11:09 | XMS_ITS | Encounter Summary ---
:1955 Author Organization [place] Address [facility] [place] [address] Care Team Providers Name Role Phone Unavailable Primary Care Provider Unavailable Encounter Details Date Type Department Care Team Description 11/10/2010 Office Visit-[facility] INTERFACE P DEPT Maryse Camarena RN Social History Tobacco Use Types Packs/Day Years Used Date Smoking Tobacco: Never Sex Assigned at Date Recorded Female 08/17/2018 10:39 PM PURCHASING/RECEIVING documented as of this encounter Progress Notes Maryse De La Cruz RN - 11/10/2010 12:00 AM CDT Brick Yard Hand: Maryse De La Cruz Status: Final Encounter: 2010-11-10 00:00:00.000 Type: Procedure Room Note Reason For Visit Reason for today's visit: Jackson Liver Biopsy Diagnosis realated to today's visit: Elevated Liver Enzymes Transplant Type/Date: NA Orders from Dr. Bernal written on 11/03/10 were completed on 11/10/10 by Kristian De La Cruz RN. . Pain Eval Current history of pain associated with this visit is denied. Allergies Cipro TABS Darvocet-N 50 TABS Vicodin TABS. Patient Teaching Flowsheet TEACHING TOPIC: Plan of Care lab results . Progress Note Upon arrival, patient identified by name and . Per Dr. Bernal, patient will not be having nativeliver biopsy done in the [facility] due to patient's larger size. Dr. Bernal called Interventional Radiology to set up liver biopsy for today. Patient has an appointment scheduled at IR for 1330. Patient resting in room until IR appointment. Discharge Plan Patient to be discharged to Interventional Radiology for [place] Liver Biopsy at 1330.[ ] Discharge time: [ ] with whom: [ ]. Therapy Nursing care five. Signature Signed By: Maryse De La Cruz R.N.; 11/15/2010 4:44 PM PURCHASING/RECEIVING. documented in this encounter Plan of Treatment Upcoming Encounters Date Type Specialty Care Team Description 05/19/2022 Office Visit ENT Dima Hidalgo M D [address] [facility] [address] [place], [place] [address] (Wo rk) 08/02/2022 Office Visit Neurology Yair Campos MD [address] [place] [phone] (Wo rk) documented as of this encounter Visit Diagnoses Not on filedocumented in this encounter
--- OUTSIDE RECORDS SUMMARY | 2022-05-09 11:09 | XMS_ITS | Encounter Summary ---
:1955 Author Organization [place] Address [facility] [place] [address] Care Team Providers Name Role Phone Aleks Lopez MD Primary Care Provider Reason for Visit Reason Comments RECHECK elevated LFT's and VILLAREAL Encounter Details Date Type Department Care Team Description 07/20/2011 Office Visit Hepatology/Gastroente Gifty Bernal Nonspecific abnormal rology MD Shira results of liver 2nd Floor, Clinic 2A [facility] function study [facility] Building [address] [place] [address] [place] [address] Social History Tobacco Use Types Packs/Day Years Used Date Smoking Tobacco: Never Smokeless Tobacco: Never Alcohol Use Standard Drinks/Week Comments No 0 (1 standard drink = 0.6 oz pure alcoho l) Sex Assigned at Date Recorded Female 08/17/2018 10:39 PM GLOBAL CATEGORY MANAGER documented as of this encounter Last Filed Vital Signs Vital Sign Reading Time Taken Comments Blood Pressure 118/70 07/20/2011 11:24 AM GLOBAL CATEGORY MANAGER Pulse 81 07/20/2011 11:24 AM GLOBAL CATEGORY MANAGER Temperature 36.7 ??C (98.1 ??F) 07/20/2011 11:24 AM GLOBAL CATEGORY MANAGER Respiratory Rate 16 07/20/2011 11:24 AM GLOBAL CATEGORY MANAGER Oxygen Saturation 93% 07/20/2011 11:24 AM GLOBAL CATEGORY MANAGER Inhaled Oxygen Concentration - - Weight 99.4 kg (219 lb 0.8 oz) 07/20/2011 11:24 AM GLOBAL CATEGORY MANAGER Height 158.8 cm (5' 2.5) 07/20/2011 11:24 AM GLOBAL CATEGORY MANAGER Body Mass Index 39.43 07/20/2011 11:24 AM GLOBAL CATEGORY MANAGER documented in this encounter Progress Notes Gifty Bernal MD - 07/20/2011 3:17 PM CST See dictated note. Gifty Bernal MD, Dye Penetrant Testing Technician and Resourcing Advisor SUBJECTIVE: A 56-year-old woman with whom I am familiar has nonalcoholic fatty liver disease with medically complicated obesity with obstructive sleep apnea. She had liver biopsy performed in 10/2010 that disclosed evidence of moderate macrovascular steatosis some mild steatohepatitis without any evidence of fibrosis or cirrhosis. Of note, her medical history is also complicated by diabetes. She had been on Byetta, but this was changed to Liraglutide. She states that gives improvement in her glycemic function. She has been bothered by urticaria, recurrent bouts of urticaria, managed with prednisoneand antihistamine. She states that she has been on disability from work due to depression that is difficult to control. She has been attending weight loss clinic as recommended, but has had only 2 visits, has been exercising every other day for about 15-20 minutes. She also has a history of subclinical hyperthyroidism and because it is in association with urticaria, this is being treated. PHYSICAL EXAMINATION: GENERAL: She is obese, anicteric and lucid. HEENT: Revealed no lymphadenopathy. CARDIAC: Regular, with normal S1, S2, without S3, S4, without murmurs, rubs or gallops. LUNGS: Clear to auscultation and percussion. ABDOMEN: Soft and nontender. Bowel sounds are intact. No fluid wave. LOWER EXTREMITIES: No edema. Distal pulses intact. ASSESSMENT: In summary, this is a woman with nonalcoholic fatty liver disease who has mild injury onhistology. She has come in for followup. She has not been able to comply with the recommendations ofweight loss and exercise due to bouts of depression as well as urticaria, managed with prednisone which increases appetite. I have recommended that she schedules more frequent visits to weight loss clinic. I think that with better control of her depression, that we will be able to improve management of the risk factors for nonalcoholic fatty liver disease with weight loss and exercise. I have asked her to return to see me in a year and she will return to a weight loss clinic as well as I will obtain laboratory studies to reassess her for any biochemical evidence of hepatocellular injury. Total time spent 40 minutes, more than 50% time spent counseling and coordinating care. AL CATEGORY MANAGER documented in this encounter Nursing Notes 07/20/2011 11:20 AM CST >> BART SHABAZZ MonJul 20, 2011 11:34 AM Vitals done,medications and allergies reviewed and updated, ready for provider. documented in this encounter Plan of Treatment Upcoming Encounters Date Type Specialty Care Team Description 05/19/2022 Office Visit ENT Dima Hidalgo M D [address] [place], [place] [address] (Wo rk) 08/02/2022 Office Visit Neurology Yair Campos MD [address] [place], [place] [phone] (Wo rk) documented as of this encounter Procedures Procedure Name Priority Date/Time Associated Comments Diagnosis BILIRUBIN DELTA Routine 07/20/2011 11:05 Results for this AM GLOBAL CATEGORY MANAGER procedure are i n the results section. INR Routine 07/20/2011 11:05 Nonspecific Results for this AM GLOBAL CATEGORY MANAGER abnormal results of procedur e are in liver function the results study section. COMPREHENSIVE Routine 07/20/2011 11:05 Nonspecific Results fo r this METABOLIC PANEL AM GLOBAL CATEGORY MANAGER abnormal results of proce dure are in liver function the results study section. BILIRUBIN CONJUGATED Routine 07/20/2011 11:05 Res ults for this AM GLOBAL CATEGORY MANAGER procedure are i n the results section. CBC WITH PLATELETS Routine 07/20/2011 11:05 Nonspecific Resul ts for this AM GLOBAL CATEGORY MANAGER abnormal results of procedur e are in liver function the results study section. documented in this encounter Results Bilirubin delta (07/20/2011 11:05 AM GLOBAL CATEGORY MANAGER) P athologist Signature Bilirubin 0.3 0.0 - 0.4 [facility] Delta mg/dL CAMPUS LABS Specimen Anatomical Collection Method Collection Time Receive d Time (Source) Location / / Volume Laterality 07/20/2011 11:05 07/20/2011 AM GLOBAL CATEGORY MANAGER 11:10 AM GLOBAL CATEGORY MANAGER Gifty Bernal MD LAB - BLOOD ORDERABLES Performing Organization Address City/State/ZIP Code Phon e Number [address] LABS Bilirubin conjugated (07/20/2011 11:05 AM GLOBAL CATEGORY MANAGER) P athologist Signature Bilirubin 0.0 0.0 - 0.3 [facility] Conjugated mg/dL [place] LABS Specimen Anatomical Collection Method Collection Time Receive d Time (Source) Location / / Volume Laterality 07/20/2011 11:05 07/20/2011 AM GLOBAL CATEGORY MANAGER 11:10 AM GLOBAL CATEGORY MANAGER Gifty Bernal MD LAB - BLOOD ORDERABLES Performing Organization Address City/State/ZIP Code Phon e Number [address] LABS INR (07/20/2011 11:05 AM GLOBAL CATEGORY MANAGER) athologist Signature INR 1.00 0.86 - 1.14 [facility] LABS Specimen Anatomical Collection Method Collection Time Receive d Time (Source) Location / / Volume Laterality Blood specimen 07/20/2011 11:05 2 (specimen) AM GLOBAL CATEGORY MANAGER 11:10 AM GLOBAL CATEGORY MANAGER Gifty Bernal MD LAB - BLOOD ORDERABLES Performing Organization Address City/[facility]/ZIP Code Phon e Number [address] LABS (ABNORMAL) Comprehensive metabolic panel (07/20/2011 11:05 AM GLOBAL CATEGORY MANAGER) P athologist Signature Sodium 139 133 - 144 [facility] mmol/L [facility] LABS Potassium 4.1 3.4 - 5.3 [facility] mmol/L [facility]S Chloride 106 94 - 109 [facility] mmol/L [facility] Carbon Dioxide 26 20 - 32 [facility] mmol/L [facility] Anion Gap 7 6 - 17 [facility] mmol/L [facility] Glucose 159 (H) 60 - 99 [facility] mg/dL [facility] LABS Comment: Non Fasting Urea Nitrogen 10 7 - 30 mg/dL [facility] LABS Creatinine 0.74 0.52 - 1.04 mg/dL [facility] [place] [facility] GFR Estimate 81 >60 mL/min/1.7m2 [facility] LAB[facility] GFR Estimate If Black >90 >60 mL/min/1.7m2 F [facility] LABS Calcium 9.4 8.5 - 10.4 mg/dL [facility] Bilirubin Total 0.6 0.2 - 1.3 mg/dL [facility] Albumin 3.9 3.3 - 4.9 g/dL [facility] LABS Protein Total 7.2 6.8 - 8.8 g/dL [facility] Alkaline Phosphatase 72 40 - 150 U/L [facility] ALT 134 (H) 0 - 50 U/L [facility] LABS AST 87 (H) 0 - 45 U/L [facility] LABS Specimen Anatomical Collection Method Collection Time Receive d Time (Source) Location / / Volume Laterality Blood specimen 07/20/2011 11: 2 (specimen) AM GLOBAL CATEGORY MANAGER 11:10 AM GLOBAL CATEGORY MANAGER Gifty Bernal MD LAB - BLOOD ORDERABLES Performing Organization Address City/State/ZIP Code Phon e Number [phone] [place] [address] LABS CBC with platelets (07/20/2011 11:05 AM GLOBAL CATEGORY MANAGER) P athologist Signature WBC 7.4 4.0 - 11.0 [facility] 10e9/L CAMPUS LABS RBC Count 5.07 3.8 - 5.2 [facility] 10e12/L CAMPUS LABS Hemoglobin 14.3 11.7 - [facility] 15.7 g/dL CAMPUS LABS Hematocrit 42.1 35.0 - [facility] 47.0 % CAMPUS LABS MCV 83 78 - 100 [facility] fl CAMPUS LABS MCH 28.2 26.5 - [facility] 33.0 pg CAMPUS LABS MCHC 34.0 31.5 - [facility] 36.5 g/dL CAMPUS LABS RDW 13.6 10.0 - [facility] 15.0 % CAMPUS LABS Platelet Count 250 150 - 450 [facility] 10e9/L [place] LABS Specimen Anatomical Collection Method Collection Time Receive d Time (Source) Location / / Volume Laterality Blood specimen 07/20/2011 11: 2 (specimen) AM GLOBAL CATEGORY MANAGER 11:10 AM GLOBAL CATEGORY MANAGER Gifty Bernal MD LAB - BLOOD ORDERABLES Performing Organization Address City/State/ZIP Code Phon e Number [facility] [address] [place], [place] [phone] [place] [address] LABS documented in this encounter Visit Diagnoses Diagnosis Nonspecific abnormal results of liver fu nction study documented in this encounter Care Teams Scrap Sawyer Relationship Specialty Start Date End Date Aleks Lopez MD PCP - General 07/20/11 10/03/11 documented as of this encounter
--- OUTSIDE RECORDS SUMMARY | 2022-05-09 11:09 | XMS_ITS | Encounter Summary ---
:1955 Author Organization [place] Address [address] [facility] [place] [address] Care Team Providers Name Role Phone Aleks Lopez MD Primary Care Provider Encounter Details Date Type Department Care Team Description 08/10/2011 Orders Only [facility] Thomas Walker, Mild persistent asthma Pulmonary Function MD (Primary Dx) Laboratory [address] [place] [address] 6th [address] [place] [phone] Social History Tobacco Use Types Packs/Day Years Used Date Smoking Tobacco: Never Smokeless Tobacco: Never Alcohol Use Standard Drinks/Week Comments No 0 (1 standard drink = 0.6 oz pure alcoho l) Sex Assigned at Date Recorded Female 08/17/2018 10:39 PM LAUNCH CHECK OUT documented as of this encounter Plan of Treatment Upcoming Encounters Date Type Specialty Care Team Description 05/19/2022 Office Visit E[facility] [address] [facility] [place] [phone] (Wo rk) 08/02/2022 Office Visit Neurology Yair Campos MD [address] [place], [place] [phone] (Wo rk) documented as of this encounter Procedures Procedure Name Priority Date/Time Associated Diagnosis Comme nts HC DIFFUSING CAPACITY Routine 08/10/2011 1:36 PM Mild persiste nt asthma LAUNCH CHECK OUT HC RESPIRATORY FLOW Routine 08/10/2011 1:36 PM Mild persistent asthma VOLUME LOOP LAUNCH CHECK OUT HC RESPIRATORY FLOW Routine 08/10/2011 1:36 PM Mild persistent asthma VOLUME LOOP LAUNCH CHECK OUT HIM PROCEDURE SCAN Routine 08/10/2011 Mild persistent asthma documented in this encounter Results PFT Procedure Scan - HIM Procedure Scan (08/10/2011) Narrative This result has an attachment that is no t available. Thomas Walker MD PROCEDURES documented in this encounter Visit Diagnoses Diagnosis Mild persistent asthma - Primary Unspecified asthma documented in this encounter Care Teams Network Project Manager Relationship Specialty Start Date End Date Aleks Lopez MD PCP - General 07/20/11 10/03/11 documented as of this encounter
--- OUTSIDE RECORDS SUMMARY | 2022-05-09 11:09 | XMS_ITS | Encounter Summary ---
:1955 Author Organization [place] Address [facility] [place] [address] Care Team Providers Name Role Phone Verified, Pcp Unknown Primary Care Provider Unavailable Aleks Lopez MD Primary Care Provider Aleks Lopez MD Primary Care Provider Chelsy Bynum MD Haroldo Primary Care Provider Aleks Lopez MD Primary Care Provider Tali Vilchis MD Unavailable Anat Fuller MD Unavailable [phone] Vladislav Fuentes MD Unavailable [phone] Janny Hutton-C Unavailable [phone] Ref-Primary, Physician Primary Care Provider [phone] Krystin Christie APRN SAFETY SITTER Primary Care Provider [phone] Comfort Nichols MD Unavailable Florecita Bryan RN Unavailable Krystin Christie APRN, CNP Unavailable [phone] Comfort Nichols MD Unavailable Krystin Christie APRN, CNP Unavailable [phone] Sonja Tinajero [facility] Unavailable [phone] Kelly De Oliveira [facility] Unavailable Eduin Wilhelm Unavailable Unavailable Cecilia Aleman MD Unavailable [phone] Thalia Glass MD Unavailable [phone] Vinita Linares RN Unavailable Unavailable Krystin Christie [facility] MAGISTRATE SAFETY SITTER Primary Care Provider [phone] PatDeyanira [facility] Unavailable Nadira Nichols RN Unavailable Unavailable Frank Argueta Unavailable Unavailable Thalia Glass MD Unavailable [phone] Anat Fuller MD Unavailable [phone] Eric Abdi MD Unavailable [phone] Cecilia Aleman MD Unavailable [phone] Sonja Tinajero [facility] Unavailable [phone] MAGISTRATE SAFETY SITTER Unavailable [phone] Krystin Christie APRN SAFETY SITTER Unavailable [phone] Sea Tsai DO Unavailable Vidhi Paiz [facility] MAGISTRATE SAFETY SITTER Unavailable [phone] Sea Tsai DO Unavailable Stephanie Canela MD Unavailable [phone] Krystin Christie APRN SAFETY SITTER Unavailable [phone] Dima Hidalgo MD Unavailable Dima Hidalgo MD Unavailable Encounter Details Date Type Department Care Team Description 05/19/2011 Telephone Ragini Boucher, Behavioral Behavioral Health In take [facility], [address] [place] [address] Social History Tobacco Use Types Packs/Day Years Used Date Smoking Tobacco: Never Smokeless Tobacco: Never Alcohol Use Standard Drinks/Week Comments No 0 (1 standard drink = 0.6 oz pure alcoho l) Sex Assigned at Date Recorded Female 08/17/2018 10:39 PM GLOBAL PROFESSIONAL documented as of this encounter Miscellaneous Notes Telephone Encounter - Hilda Henry - 05/30/2011 3:50 PM CST Message copied by HILDA HENRY on MonMay 30, 2011 3:50 PM ------ Message from: VARSHA GRIDER Created: MonMay 30, 2011 3:37 PM Regarding: Intake completed but she may not be ready for [place] Contact: I need to check with her referring doc about her current status. May request a neuropsych eval to R/O dementia.Bonifacio AL PROFESSIONAL Telephone Encounter - Ruby Groves - 05/26/2011 4:10 PM CST Left message-reminder call AL PROFESSIONAL Telephone Encounter - Ruby Groves - 05/20/2011 11:12 AM CDT Spoke with client-assessment for 05/27 @ 9am with Varsha Grider Telephone Encounter - Ruby Groves - 05/19/2011 4:18 PM CDT Referral received. Telephone Encounter - Hilda Henry - 05/19/2011 4:[address] in [address]. Inbasket to program to set up diagnostic. Hilda Henry Telephone Encounter - Hilda Henry - 05/19/2011 2:18 PM CDT Client called. Reports primary care dr is recommending she consider the partial program. Reports that she has had ongoing depression for many years. She reports that it has increased in severity recently. Is on Pristiq and on an anti anxiety medication. Also seeing a therapist in the [place] area-Lit Fuentes,. Stressors: has ongoing health issues including breathing issues and an enlarged liver. No drug/etoh concerns. Discussed both the 55 plus and the partial program with her. She is interested in partial program since that is what her dr is recommending. Bens sent and then will refer to program to set up diagnostic. Hilda Henry documented in this encounter Plan of Treatment Upcoming Encounters Date Type Specialty Care Team Description 05/19/2022 Office Visit ENT Dima Hidalgo M D [address] [place], [place] [address] (Wo rk) 08/02/2022 Office Visit Neurology Yair Campos MD [address] [place] [phone] (Wo rk) documented as of this encounter Visit Diagnoses Not on filedocumented in this encounter Care Teams Heat Treat Inspector Relationship Specialty Start Date End Date Verified, Pcp PCP - General 01/06/11 07/19/11 Unknown Aleks Lopez MD PCP - General 07/20/11 10/03/11 Aleks Lopez MD PCP - General 10/04/11 05/25/14 Haroldo Valentino V, PCP - General Internal Medicine 05/26/14 5 MD JERI [place] [address] [place] [address] [phone] Aleks Lopez MD PCP - General Family Practice 10/18/14 11/01/16 No Ref-Primary, PCP - General 11/02/16 12/14/17 Physician Krystin Christie PCP - General Nurse Practitioner 12/15/17 09/08/19 SAURABH Engel SAFETY SITTER [address] [facility] RUPESH BAPTISTE [phone] Comfort Nichols, PCP - Assigned PCP 04/08/[address] [place] [address] RUPESH BAPTISTE [phone] Krystin Christie PCP - Assigned PCP 08/26/18 09/18/18 SAURABH Engel SAFETY SITTER [address] [facility] [place] [id number] Krystin Christie PCP - General Nurse Practitioner 09/18/19 SAURABH Engel SAFETY SITTER [address] [facility] [place] [address] Tali Vilchis MD INTERNAL MEDICINE - 04/10/15 MD Kaitlynn ENDOCRINOLOGY, [address] [facility] [address] [place], [place] [phone] Anat Fuller MD Internal Medicine 04/10/15 09/17/19 Krystin Duran MD [address] [facility] [place], [place] [phone] Vladislav Fuentes MD Psychiatry 06/30/15 06/30/15 Mahamed Mcneill MD [facility] [address] [place] [address] Janny Hutton Physician Workforce Consultant Physician Workforce Consultant 06/30/15 09/17/19 CARLA Mckeon [address] [facility] [address] [place], [place] [phone] Florecita Bryan, Lead Autoglazier 08/17/18 RN Comfort Nichols, Assigned PCP 04/08/18 08/25/18 [address] [facility] [place] [address] Krystin Christie Assigned PCP 08/26/18 01/28/21 SAURABH Engel SAFETY SITTER [address] [facility] [place] [address] Sonja Tinajero Pharmacist Pharmacist 12/24/18 09/17/19 Dev, [facility] [address] [place] [address] Kelly De Oliveira, Pharmacist Pharmacist 01/21/19 06/24/19 [facility] [address] [place] [address] Eduin Wilhelm Personal Advocate & 06/17/19 09/17/19 Liaison (PAL) Cecilia Aleman MD Urology 07/22/19 09/17/19 MD Lyly [address] [facility] [address] [place] [address] Joan Monroe MD Obstetrics 07/22/19 09/17/19 Thalia Engel MD [address] [facility] [place] [address] [phone] Vinita Linares, MIKE Registered Nurse 07/22/19 09/17/19 Deyanira Stewart, Pharmacist Pharmacist 01/13/20 08/24/20 [facility] [address] [place] [address] Nadira Nichols, MIKE Lead Autoglazier Primary Care - CC 01/21/20 03/02/20 Frank Argueta Community Health Worker 01/21/2002/14 Joan Monroe, Assigned OBGYN Provider 05/08/2001/16/21 Thalia Engel MD [address] [facility] [address] [place], [place] [address] Anat Fuller Assigned Gastroenterology 05/08/20 12/12/20 Krystin Duran MD Provider [address] [facility] [place], [place] [phone] Eric Abdi Assigned Musculoskeletal 05/08/20 03/27/21 MD Joo Provider TRIA [address] [place] [phone] Cecilia Aleman Assigned Surgical 05/08/20 03/06/21 MD Lyly Provider [address] [facility] [address] [place], [place] [phone] Sonja Tinajero Ka Pharmacist 08/24/20 Dev, [facility] [address] [facility] [address] [place], [place] [phone] Vidhi Paiz Assigned PCP 01/29/21 07/10/21 SAURABH Turner SAFETY SITTER [address] [facility] [place] [address] Krystin Christie Assigned PCP 07/11/21 07/24/21 SAURABH Engel SAFETY SITTER [address] [facility] [place] [address] MD Eulalio Neurology 08/04/21 Sea Fink DO [address] [place], [place] [address] Vidhi Paiz Assigned PCP 07/25/21 01/07/22 SAURABH Turner SAFETY SITTER [address] [facility] [place] [address] Eulalio, Assigned Neuroscience 10/10/21 Sea Fink DO Provider [address] [place], [place] [phone] Stephanie Canela Assigned OBGYN Provider 12/05/21 MD Alee [address] [place] [address] Krystin Christie Assigned PCP 01/08/22 SAURABH Engel SAFETY SITTER [address] [facility] R[place] [id number] Dima Hidalgo MD MD Otolaryngology 02/15/22 Ronald [place] [phone] Dima Hidalgo MD Assigned Surgical 03/12/22 Ronald [place] [phone] documented as of this encounter
--- OUTSIDE RECORDS SUMMARY | 2022-05-09 11:09 | XMS_ITS | Encounter Summary ---
:1955 Author Organization [place] Address [address] [facility] [place] [address] Care Team Providers Name Role Phone Unavailable Primary Care Provider Unavailable Encounter Details Date Type Department Care Team Description 11/03/2010 Office Visit-[facility] INTERFACE [facility] DEPT Unknown, Provider Social History Tobacco Use Types Packs/Day Years Used Date Smoking Tobacco: Never Assessed Sex Assigned at Date Recorded Female 08/17/2018 10:39 PM REAL PROPERTY EVALUATOR documented as of this encounter Progress Notes Unknown, Provider - 11/03/2010 9:55 AM CDT Physician Practice Administrator: Lyly Chandler Status: Final - Signature Encounter: 2010-11-03 09:55:00.000 Type: Chart Note documented in this encounter Plan of Treatment Upcoming Encounters Date Type Specialty Care Team Description 05/19/2022 Office Visit ENT Dima Hidalgo M D [address] [place] [address] (Wo rk) 08/02/2022 Office Visit Neurology Yair Campos MD [address] [place], [place] [address] (Wo rk) documented as of this encounter Visit Diagnoses Not on filedocumented in this encounter
--- OUTSIDE RECORDS SUMMARY | 2022-05-09 11:09 | XMS_ITS | Encounter Summary ---
:1955 Author Organization [place] Address [facility]0 [facility] [place] [address] Care Team Providers Name Role Phone Verified, Pcp Unknown Primary Care Provider Unavailable Aleks Lopez MD Primary Care Provider Reason for Visit Reason Comments RECHECK Follow up weight management Encounter Details Date Type Department Care Team Description 07/04/2011 Office Visit Weight Management Joo Watson DM type 2 (diabetes mellitus, type 2) (H); Adult MD Naseem Drug-induced obesity [facility] [address] [facility] Building [address] 1[address] Floor, Clinic [address] [place] [address] Social History Tobacco Use Types Packs/Day Years Used Date Smoking Tobacco: Never Smokeless Tobacco: Never Alcohol Use Standard Drinks/Week Comments No 0 (1 standard drink = 0.6 oz pure alcoho l) Sex Assigned at Date Recorded Female 08/17/2018 10:39 PM SUPERVISOR PLATE FORMING documented as of this encounter Last Filed Vital Signs Vital Sign Reading Time Taken Comments Blood Pressure 134/64 07/04/2011 11:46 AM SUPERVISOR PLATE FORMING Pulse 100 07/04/2011 11:46 AM SUPERVISOR PLATE FORMING Temperature - - Respiratory Rate - - Oxygen Saturation - - Inhaled Oxygen Concentration - - Weight 98.9 kg (218 lb) 07/04/2011 11:46 AM SUPERVISOR PLATE FORMING Height 158.8 cm (5' 2.5) 07/04/2011 11:46 AM SUPERVISOR PLATE FORMING Body Mass Index 39.24 07/04/2011 11:46 AM SUPERVISOR PLATE FORMING documented in this encounter Progress Notes Joo Watson MD - 07/04/2011 11:51 AM CST Patient continues to be seen for treatment of obesity related to: Sleep Apnea GERD Depression Nonalcoholic Steatohepatitis Dyspnea Weight change since last seen February 2011 is same . Total loss is 0 pounds. Patient has been working on the following dietary changes: taking low dose Byetta with little relieffrom hunger, not always able to remember to take both doses. Continues on prednisone, many bursts for chronic hives, afraid to be off that and has hunger related to that med still. Has not been able tomake many food changes though she feels that she is trying. Patient has been working on the following activity changes: no change. Medications: Byetta. Side-effects: none. Assessment/plan: She needs victoza or higher Byetta to attempt to get better hunger control, especially as she remains on prednisone. Start Victoza. Encouraged on food change plan. Counseling for above 10/15 minutes. RVISOR PLATE FORMING documented in this encounter Plan of Treatment Upcoming Encounters Date Type Specialty Care Team Description 05/19/2022 Office Visit ENT Dima Hidalgo M D [address] [place], [place] [address] (Sarah pino) 08/02/2022 Office Visit Neurology Yair Campos MD [address] [place], [place] [address] (Sarah pino) documented as of this encounter Procedures Procedure Name Priority Date/Time Associated Diagnosis Comme nts HEMOGLOBIN A1C Routine 07/04/2011 12:20 PM DM type 2 (diabetes Results for this SUPERVISOR PLATE FORMING mellitus, type 2) (H) proced ure are in the results section . documented in this encounter Results (ABNORMAL) Hemoglobin A1c (07/04/2011 12:20 PM SUPERVISOR PLATE FORMING) [facility] Time Signature Hemoglobin A1C 9.0 (H) 4.3 - 6.0 [facility] % [facility] LABS Specimen Anatomical Collection Method Collection Time Receive d Time (Source) Location / / Volume Laterality Blood specimen 07/04/2011 12:20 12/19/201 1 (specimen) PM SUPERVISOR PLATE FORMING 12:25 PM SUPERVISOR PLATE FORMING Joo Watson MD LAB - BLOOD ORDERABLES Performing Organization Address City/State/ZIP Code Phon e Number [id number] [place] [address] LABS documented in this encounter Visit Diagnoses Diagnosis DM type 2 (diabetes mellitus, type 2) (H ) Type II or unspecified type diabetes almita litus without mention of complication, not stated as uncontrolled Drug-induced obesity Obesity, unspecified documented in this encounter Care Teams Financial Assistant Relationship Specialty Start Date End Date Verified, Pcp Unknown PCP - General 01/06/11 2 Aleks Lopez MD PCP - General 07/20/11 10/03/11 documented as of this encounter
--- OUTSIDE RECORDS SUMMARY | 2022-05-09 11:09 | XMS_ITS | Encounter Summary ---
:1955 Author Organization [place] Address [facility]0 [facility] [place] [address] Care Team Providers Name Role Phone Aleks Lopez MD Primary Care Provider Reason for Visit Reason Comments RECHECK Follow up weight management. Encounter Details Date Type Department Care Team Description 09/05/2011 Office Visit Weight Management Joo Watson DM type 2 (diabetes mellitus, type 2) (H); Adult MD Naseem Drug-induced obesity [facility] [address] [facility] Building [address] 1[address] Floor, Clinic [address] [place] [address] Social History Tobacco Use Types Packs/Day Years Used Date Smoking Tobacco: Never Smokeless Tobacco: Never Alcohol Use Standard Drinks/Week Comments No 0 (1 standard drink = 0.6 oz pure alcoho l) Sex Assigned at Date Recorded Female 08/17/2018 10:39 PM MACHINE MADE SHOE UNIT WORKER documented as of this encounter Last Filed Vital Signs Vital Sign Reading Time Taken Comments Blood Pressure 113/66 09/05/2011 11:45 AM MACHINE MADE SHOE UNIT WORKER Pulse 89 09/05/2011 11:45 AM MACHINE MADE SHOE UNIT WORKER Temperature - - Respiratory Rate - - Oxygen Saturation - - Inhaled Oxygen Concentration - - Weight 96.2 kg (212 lb 1.6 oz) 09/05/2011 11:45 AM MACHINE MADE SHOE UNIT WORKER Height 156.2 cm (5' 1.5) 09/05/2011 11:45 AM MACHINE MADE SHOE UNIT WORKER Body Mass Index 39.43 09/05/2011 11:45 AM MACHINE MADE SHOE UNIT WORKER documented in this encounter Progress Notes Joo Watson MD - 09/05/2011 11:58 AM CST Patient continues to be seen for treatment of obesity related to: Sleep Apnea; GERD; Depression; Nonalcoholic Steatohepatitis; Dyspnea Weight change since last seen June 2011 is same . Total loss is 6 pounds. Patient has been working on the following dietary changes: now on full dose Victoza at 1.8 per day and tolerating that well, now has some relief from hunger. Continues on prednisone, many bursts for chronic hives, afraid to be off that and has hunger related to that med still. Patient has been working on the following activity changes: no change. Glycemic control has improved from usual sugars in 250+ range to now around 120-130. Medications: Victoza. Side-effects: none. Initial nausea has now receded. Assessment/plan: She appears to be benefiting from Victoza in terms of hunger control, and now off prednisone more of the time. Encouraged on food change plan. Counseling for above 10/15 minutes. INE MADE SHOE UNIT WORKER documented in this encounter Plan of Treatment Upcoming Encounters Date Type Specialty Care Team Description 05/19/2022 Office Visit ENT Dima Hidalgo M D [address] [place], [place] [address] (Sarah rk) 08/02/2022 Office Visit Neurology Yair Campos MD [address] [place] [address] (Wo rk) documented as of this encounter Visit Diagnoses Diagnosis DM type 2 (diabetes mellitus, type 2) (H ) Type II or unspecified type diabetes almita litus without mention of complication, not stated as uncontrolled Drug-induced obesity Obesity, unspecified documented in this encounter Care Teams Industrial Waste Inspector Relationship Specialty Start Date End Date Aleks Lopez MD PCP - General 07/20/11 10/03/11 documented as of this encounter
--- OUTSIDE RECORDS SUMMARY | 2022-05-09 11:09 | XMS_ITS | Encounter Summary ---
:1955 Author Organization [place] Address [facility] [place] [address] Care Team Providers Name Role Phone Verified, Pcp Unknown Primary Care Provider Unavailable Aleks Lopez MD Primary Care Provider Reason for Visit Reason Onset Date Comments Pre Visit Planning - Done 07/14/2011 appt 07/20/2011 Encounter Details Date Type Department Care Team Description 07/14/2011 PRE VISIT Hepatology/Gastroenter Gifty Bernal Pre Visit Planning - sil Silva MD Done (appt 07/20/2011) 2nd Floor, Clinic 2A [facility] Building [address] [place] [address] (Wo rk) [address] [phone] Social History Tobacco Use Types Packs/Day Years Used Date Smoking Tobacco: Never Smokeless Tobacco: Never Alcohol Use Standard Drinks/Week Comments No 0 (1 standard drink = 0.6 oz pure alcoho l) Sex Assigned at Date Recorded Female 08/17/2018 10:39 PM DIVISION HEAD documented as of this encounter Miscellaneous Notes Telephone Encounter - Cynthia Hayward - 07/14/2011 3:16 PM CST Was the patient contacted by phone and reminded of the upcoming visit? Yes Was the patient instructed to bring a current list of all medications to the appointment or instructed to bring in all medication bottles? Yes, patient verbalized understanding Was the patient instructed to arrive prior to the appointment time to have ordered labs drawn? Yes SION HEAD documented in this encounter Plan of Treatment Upcoming Encounters Date Type Specialty Care Team Description 05/19/2022 Office Visit ENT Dima Hidalgo M D [address] [facility] Sar[address] [place], [place] [address] (Wo rk) 08/02/2022 Office Visit Neurology Yair Campos MD [address] [place] [address] [place] [address] (Wo rk) documented as of this encounter Visit Diagnoses Not on filedocumented in this encounter Care Teams Framing Mechanic Relationship Specialty Start Date End Date Verified, Pcp Unknown PCP - General 01/06/11 2 Aleks Lopez MD PCP - General 07/20/11 10/03/11 documented as of this encounter
--- OUTSIDE RECORDS SUMMARY | 2022-05-09 11:09 | XMS_ITS | Encounter Summary ---
:1955 Author Organization [place] Address [address] [facility] [place] [address] Care Team Providers Name Role Phone Aleks Lopez MD Primary Care Provider Encounter Details Date Type Department Care Team Description 09/13/2011 Team Conference [facility] Kavya Kimbrough [facility] SEAN Yen [address] [place], [place] [phone] [place] [address] [place], [place] [phone] (Wo rk) Social History Tobacco Use Types Packs/Day Years Used Date Smoking Tobacco: Never Smokeless Tobacco: Never Alcohol Use Standard Drinks/Week Comments No 0 (1 standard drink = 0.6 oz pure alcoho l) Sex Assigned at Date Recorded Female 08/17/2018 10:39 PM SCHOOL SOCIAL WORKER documented as of this encounter Miscellaneous Notes Telephone Encounter - Cynthia Breaux RN - 09/13/2011 2:06 PM CST Left voice message with patient on 08/23/11 and 09/13/11 to schedule annual follow- up appointment with Joanne Kimbrough. Patient was last seen March 2009. Patient will need to be seen by provider to continue renewing CPAP supplies. OL SOCIAL WORKER documented in this encounter Plan of Treatment Upcoming Encounters Date Type Specialty Care Team Description 05/19/2022 Office Visit ENT Dima Hidalgo M D [address] [place], [place] [address] (Wo rk) 08/02/2022 Office Visit Neurology Yair Campos MD [address] [place] [address] (Wo rk) documented as of this encounter Visit Diagnoses Not on filedocumented in this encounter Care Teams Bulb Brander Relationship Specialty Start Date End Date Aleks Lopez MD PCP - General 07/20/11 10/03/11 documented as of this encounter
--- OUTSIDE RECORDS SUMMARY | 2022-05-09 11:09 | XMS_ITS | Encounter Summary ---
:1955 Author Organization [place] Address [address] [facility] [place] [address] Care Team Providers Name Role Phone Unavailable Primary Care Provider Unavailable Encounter Details Date Type Department Care Team Description 12/08/2010 Office Visit-[facility] INTERFACE [facility] DEPT Unknown, Provider Social History Tobacco Use Types Packs/Day Years Used Date Smoking Tobacco: Never Sex Assigned at Date Recorded Female 08/17/2018 10:39 PM PAINT CREW SUPERVISOR documented as of this encounter Progress Notes Unknown, Provider - 12/08/2010 10:53 AM CDT Strip Polisher: Stephanie New Status: Signed Encounter: 2010-12-08 10:53:00.000 Type: Transplant Letter Stephanie New - 25 Nov 2010 1:59 PM TASK CREATED histo in for liver biopsy. not sure if you would see it as it isn't under your name. pt wanting to know results. please advise if I can call her and tell her or if you will. Gifty Estevez - 07 Dec 2010 6:10 PM Please inform Ms Thomas that she has evidence of fatty liver with inflammation but nor scarring or cirrhosis. Thank you. Stephanie New - 08 Dec 2010 10:52 AM called pt and let her know. pt had question about being fatiqued and stated that she has been on steroids from her PCP and also noted a deer tick on her 2 weeks ago. suggested to pt that she go see herPCP. pt agreed. Electronically signed by:Stephanie New RN Dec 08 2010 10:53AM PAINT CREW SUPERVISOR documented in this encounter Plan of Treatment Upcoming Encounters Date Type Specialty Care Team Description 05/19/2022 Office Visit ENT Dima Hidalgo M D [address] [facility] [address] [place], [place] [address] (Wo rk) 08/02/2022 Office Visit Neurology Yair Campos MD [address] [facility] [place], [place] [phone] (Wo rk) documented as of this encounter Visit Diagnoses Not on filedocumented in this encounter
--- OUTSIDE RECORDS SUMMARY | 2022-05-09 11:10 | XMS_ITS | Encounter Summary ---
:1955 Author Organization [place] Address [address] [facility] [place] [address] Care Team Providers Name Role Phone Unavailable Primary Care Provider Unavailable Encounter Details Date Type Department Care Team Description 03/16/2010 Results Only [facility] Gabe [facility] MD Shira Results [facility] [place] [address] (Wo rk) Social History Tobacco Use Types Packs/Day Years Used Date Smoking Tobacco: Never Assessed Sex Assigned at Date Recorded Female 08/17/2018 10:39 PM FUR STYLIST documented as of this encounter Plan of Treatment Upcoming Encounters Date Type Specialty Care Team Description 05/19/2022 Office Visit ENT Dima Hidalgo M D [address] [place], [place] [address] (Wo rk) 08/02/2022 Office Visit Neurology Yair Campos MD [address] [place] [phone] (Wo rk) documented as of this encounter Procedures Procedure Name Priority Date/Time Associated Diagnosis Comme nts HC MRI ADBDOMEN W/O Routine 03/16/2010 8:52 AM Re sults for this CONTRAST CDT procedure are i n the results section. documented in this encounter Results MRI ABDOMEN (03/16/2010 8:52 AM CDT) Anatomical Region Laterality Modality Other Specimen (Source) Anatomical Collection Method Collection Time Re ceived Time Location / / Volume Laterality 03/16/2010 8:52 AM CDT Impressions 03/17/2010 9:30 AM CDT MRI LIVER CLINICAL HISTORY: For investigation of abnormal liver func tion tests (elevated transaminases, normal bilirubin and ALP) . No history of chronic liver disease. TECHNIQUE: Images were acquired with and without in travenous gadolinium contrast through the abdomen. The following MR im ages were acquired without contrast: Coronal TrueFISP, multiplanar T2-weighted, axial T1 in/out of phase, coronal T2 HASTE MRCP images, axial diffusion-weighted and axial apparent diffusion coefficient. Mu ltiplanar T1-weighted images with fat saturation were acquired at the following intervals relative to intravenous contrast administration: pre-contrast, immediately post contrast, 1 minute and 5 minutes with singh btraction. FINDINGS: Comparison study: Non-contrast CT chest 03/21/2007. Liver: The liver is normal in size and t he liver contours are smooth. There is marked diffuse fatty infiltrati on. No focal liver lesions. Hepatic veins, portal veins and hepatic artery are patent. No intra or extrahepatic biliary dilatation. Gallbla dder is normal in appearance and no gallstones are seen. Other abdominal viscera: Spleen is fely l in size and appearance. Kidneys, adrenal glands and pancreas are normal in appearance. IMPRESSION: Marked diffuse fatty infiltration of the liver. No other abnormality seen. I have personally reviewed the image and initial interpretation, and I agree with findings. Gifty Bernal MD [facility] documented in this encounter Visit Diagnoses Not on filedocumented in this encounter
--- OUTSIDE RECORDS SUMMARY | 2022-05-09 11:10 | XMS_ITS | Encounter Summary ---
:1955 Author Organization [place] Address [address] [facility] [place] [address] Care Team Providers Name Role Phone Unavailable Primary Care Provider Unavailable Encounter Details Date Type Department Care Team Description 04/21/2010 Office Visit-[facility] Rheumatology Iglesia Ortiz, 2nd Floor, Clinic 2A MD Efrain Harkins[address] [place] [phone] [facility] [place] [address] [phone] Social History Tobacco Use Types Packs/Day Years Used Date Smoking Tobacco: Never Assessed Sex Assigned at Date Recorded Female 08/17/2018 10:39 PM CABIN AGENT documented as of this encounter Progress Notes Iglesia Ortiz J - 04/21/2010 8:00 AM CDT Central Sterile Tech: Iglesia Ortiz Status: Final Encounter: 21 Apr 2010 Type: Rheum Visit Reason For Visit Reason for visit: BECKI THOMAS is 55 year old female seen in consultation at the request of Dr. Harpal Keith, and Dr. Aleks Lopez for joint pain. Do you have any other appointments, tests or procedures within the [facility] system for this same day? No. HPI Ms. Thomas is a 55 year old female her for consult regarding diffuse joint pain. She states that thisbecame most significant about 5 years ago, when her she needed cortisone injection for right hip andshoulder pain. Now she says her hips, knees, shoulders, hands, and toes bother her the most. She described bilateral pain with activity and it affects her the most when trying to fall asleep. She uses Ibuprofen 600mg to diminish the pain in order to fall asleep. She does not endorse morning stiffness.Cool air brings on pain in the joints of the fingers, she denies Raynaud's phenomena. Since Septembers year she has had increased swelling of ankles and entire fingers, at times the joints. During th is swelling she feels weak in her hand workplace rehabilitation officer, unable to grasp a pencil for a few minutes. She endorses numb, tingling with sharp and aching pain in her fingers and toes, dependent on positioning. Five years ago she began having increased shortness of breath, diagnosed with bronchial asthma, without great response to inhaler treatments. She is following with Pulmonology and has just begun lung rehab. She has seen ENT for voice changes attributed to inhaler use. She has a history of difficulty swallowing with pain that has been worked up to show esophageal dysmotility at [facility]. GI has also seen her here for Non Alcoholic Fatty Liver Disease with negative autoimmune hepatitis work up. ROS Fever: no Chills: no Fatigue: Not recently, yes in the past 5 years Weight loss: Waight Gain: yes 60 pounds in last 2 years Headache: No Temporal PARSONS, jaw caudication: no SKIN: Rash (photosensitivity/malar): no Psoriasis: no Skin changes/skin thickening/tightening: no Alopecia: no Nodules: no ENT: Sicca Complex (dry eyes/dry mouth): no Oral/Naopharyngeal ulcers: no OPTHO: Conjunctivitis no Iritis ]no visual changes no CARDIO/PULM: Chest Pain: no Cough/Sputum: no Hemoptysis: no SOB: Yes recent 5 years with asthma GI: GERD: no Odynophagia: no Dysphagia: no Abd pain: no Diarrhea: no Constipation: no Hematemisis: no Melena no Hematochezia: MSK: Myalgia: yes Arthralgia: yes Arthritis: no AM Stiffness: no Back pain: no NEURO: Paresthesia/numbness: yes see HPI Raynaud's: no. Pain Eval Current history of pain associated with this visit is as follows: Location: Fingers and toes Quality: Aching Severity: 3 (Pain scale 1-10, with 10 being the worst) Duration: Ongoing Timing: Intermittent Context: Cold Modifying factors: IBU Associated signs/symptoms: Pain migrates. Active Problems Abnormal Pap Smear Of Cervix (795.09) Angioedema (995.1) Asthma (493.90) Depression (311) Do Not Feel Rested After Adequate Night's Sleep Esophageal Reflux (530.81) Excessive Sleepiness During The Day (Daytime Somnolence) Nocturnal Difficulty Breathing; Causing Awakening From Sleep Nonalcoholic Steatohepatitis (571.8) Obesity (278.00) Obstructive Sleep Apnea (327.23) Restless Legs Syndrome (333.94) Rhinitis (472.0) Snoring (Symptom) (786.09) Urticaria (708.9). PMH 1. Bronchial Asthma 2. YESSI 3. RLS 4. HTN 5. History of urticaria with mild flares once a month 6. NAFLD 7. LE edema 8. Depression . Family Hx Mom: osteoarthritis and DM 2 Dad: DM 2, HTN GM: thyroid disease. Personal Hx Behavioral history: No tobacco use. Home environment: No secondhand tobacco smoke in home. Allergies Cipro TABS Darvocet-N 50 TABS Vicodin [...] EVERY 4 TO 6 HOURS NEEDED.; RPT AAA-MED RECONCILE;Per patient.; RPT. Vital Signs Recorded by Joanne Cramer on 21 Apr 2010 08:55 AM BP:116/70, LUE, Sitting, HR: 69 b/min, Height: 62.5 in, Weight: 220.2 lb, BMI: 39.6 kg/m2. Physical Exam No Acute distress GAIT: normal narrow based HEENT: [place] conjunctiva, anicteric, no facial rash, sufficient saliva pool, no nasopharyngeal ulcers. Neck: supple no LAD LUNGS: Clear to auscultation bilaterally, no wheezing, no rales CVS: S1/S2, RRR, no murmur/rub ABDOMEN: Rotund Benign, non-tender, BS normoactive, no organomegaly, no hepatosplenomegaly, no mass EXTREMITIES: mild dependent edema at dorsal surface of foot, full pulses, no cyanosis, no nail fold capillary changes MSK: No synovitis, from all joints. Tender to palpation of right second MTP. Crepitus on right knee.Good ROM in shoulder, elbow, wrist, fingers, hips, knees, and ankles. SKIN: No rashes NEURO: Cranial nerve grossly intact, motor Bilateral hands 4/5 workplace rehabilitation officer strength, Pain with right shoulder suprascapular test 4/5, 5/5 both proximal/distal upper and lower extremity, sensation intact. Results Hemogram and platelet 21 Apr 2010 11:50 AM - WBC Count: 7.4 10e9/L - RBC Count: 4.94 10e12/L - Hemoglobin: 13.5 g/dl - Hematocrit: 40.9 % - MCV: 83 fL - MCH: 27.3 pg - MCHC: 33.0 g/dl - RDW: 13.7 % - Platelet Count: 239 10e9/L Thyroxine Free 05 Feb 2010 09:45 AM - Thyroxine Free: 0.74 ng/dl TSH Reflex 05 Feb 2010 09:45 AM - TSH Reflex: 6.27 mU/L AMARILIS Screen by EIA 05 Feb 2010 09:45 AM - AMARILIS Screen by EIA: <1.0Interpretation: Negative. Assessment 55 year old female with multiple joint arthralgias and myalgias with activity, with finger swelling,and numbness/tingling of phalanges, exam findings of right shoulder tendonitis or bursitis, right knee crepitus, and right second MTP joint pain, and prior labs negative for AMARILIS, an elevated TSH with normal reflex T4, and with elevated glucose. This seems unlikely to be an inflammatory arthritis and more likely to be osteoarthritis mixed with soft tissue inflammation. Plan 1. Labs: RF, CCP, ESR, CRP, ANCA to assess inflammatory state 2. HGBa1c and Vit B12 and folate to assess if the numbness may be due to these 3. X-ray bilateral knees standing, bilateral hands, and right foot for evidence of joint destruction 4. Tramadol 50mg once a day as needed for pain 5. Return to clinic in 3 months to reassess. Plan {{{[ ]}}}. Tie in Statement [address] Lopez for evaluation of joint pain. I obtained all elements of the history and physical; SAHIL Oneill scribed them for me. Hx of chronic, slowly progressive use and contact-associatedarthralgia, affecting L>R shoulder, bilateral knees, lateral thighs, hands, and feet. Exam shows moderate obesity, trace peripheral edema, early stigmata of hand/finger OA, tenderness over trochanters; impingement at the shoulder. Serologies and inflammatory indices show no evidence of a systemic rheumatic condition. Imp: 1. OA, hands and knees 2. Trochanteric bursitis 3. Subacromial bursitis Plan rule out low-likelihood systemic disease with RF, anti-CCP, ANCA, Xrays of knees and hands. Trial of tramadol 50 tid prn. RTC 3 mos. Signature Signed By: Joanne Cramer CMA; 04/21/2010 8:57 AM CABIN AGENT. Signed By: Iglesia Ortiz M.D.; 04/21/2010 9:38 PM CABIN AGENT. documented in this encounter Plan of Treatment Upcoming Encounters Date Type Specialty Care Team Description 05/19/2022 Office Visit [facility] [address] [facility] [place], [place] [address] (Sarah pino) 08/02/2022 Office Visit Neurology Yair Campos MD [address] [place] [address] (Sarah pino) documented as of this encounter Visit Diagnoses Not on filedocumented in this encounter
--- OUTSIDE RECORDS SUMMARY | 2022-05-09 11:10 | XMS_ITS | Encounter Summary ---
:1955 Author Organization [place] Address [facility] 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 Her echo was normal. She will call the nurses' line with any questions. We will send a results letter to give her a copy of the echo report for her records. Electronically signed by:Yue Rangel M.D.,Fellow May 26 2010 2:50PM COMMERCIAL ESCROW ASSISTANT ERCIAL ESCROW ASSISTANT documented in this encounter Plan of Treatment Upcoming Encounters Date Type Specialty Care Team Description 05/19/2022 Office Visit ENT Dima Hidalgo M D [address] [facility] Saroj [place], [place] [address] (Wo rk) 08/02/2022 Office Visit Neurology Yair Campos MD [address] [facility], [place] [address] (Wo rk) documented as of this encounter Visit Diagnoses Not on filedocumented in this encounter
--- OUTSIDE RECORDS SUMMARY | 2022-05-09 11:10 | XMS_ITS | Encounter Summary ---
:1955 Author Organization [place] Address [address] [facility] 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 No. Pain Eval Current history of pain associated with this visit is denied. Active Problems Abnormal Pap Smear Of Cervix (795.09) Angioedema (995.1) Asthma (493.90) Do Not Feel Rested After Adequate Night's Sleep Esophageal Reflux (530.81) Excessive Sleepiness During The Day (Daytime Somnolence) Nocturnal Difficulty Breathing; Causing Awakening From Sleep Obesity (278.00) Obstructive Sleep Apnea (327.23) Restless Legs Syndrome (333.94) Rhinitis (472.0) Snoring (Symptom) (786.09) Urticaria (708.9). Personal Hx Behavioral history: No tobacco use. Home environment: No secondhand tobacco smoke in home. Vital Signs Recorded by Love Stein on 03 Feb 2010 09:45 AM BP:117/69, RUE, Sitting, HR: 76 b/min, L Radial. Allergies Cipro TABS Darvocet-N 50 TABS Vicodin TABS. Current Meds Printed medication list offered and patient declined. Albuterol 90 MCG/ACT AERS;INHALE 1-2 PUFFS EVERY 4-6 HOURS NEEDED AND DIRECTED.; RPT Provigil 200 MG Tablet;TAKE 1 AND 1/2 TABLETS DAILY.; RPT EpiPen 2-Db 0.3 MG/0.3ML (1:1000) SLOAN;INJECT 0.3ML INTRAMUSCULARLY DIRECTED.; Rx Requip 0.5 MG Tablet;TAKE 1 TABLET BEDTIME; RPT Advair Diskus 500-50 MCG/DOSE MISC;USE ONE INHALATION TWICE A DAY; Rx Ibuprofen 200 MG Tablet;TAKE 1 TABLET 3 TIMES DAILY NEEDED.; RPT AAA-MED RECONCILE;; RPT. Signature Signed By: Love Stein ; 02/03/2010 9:47 AM LEAD SEWAGE PLANT OPERATOR. documented in this encounter Plan of Treatment Upcoming Encounters Date Type Specialty Care Team Description 05/19/2022 Office Visit ENT Dima [facility]idalgo M D [address] [facility] [place], [place] [address] (Sarah pino) 08/02/2022 Office Visit Neurology Yair Campos MD [address] [place] [phone] (Sarah pino) documented as of this encounter Visit Diagnoses Not on filedocumented in this encounter
--- OUTSIDE RECORDS SUMMARY | 2022-05-09 11:10 | XMS_ITS | Encounter Summary ---
:1955 Author Organization [place] Address [address] [facility] 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 Do you have any other appointments, tests or procedures within the [facility] system for this same day? No Have you had a recent hospitalization? No . Pain Eval Current history of pain associated with this visit is as follows: Location: joints, left lower leg Quality: [ ] Severity: 4 (Pain scale 1-10, with 10 being the worst) Duration: [ ] Timing: [ ] Context: [ ] Modifying factors: [ ] Associated signs/symptoms: [ ]. Personal Hx Behavioral history: No tobacco use. Home environment: No secondhand tobacco smoke in home. Vital Signs Recorded by Vlad [place] on 19 May 2010 12:38 PM BP:136/72, RUE, Sitting, HR: 83 b/min, Resp: 16 r/min, Normal, Temp: 98.3 F, Oral, Height: 158.8 cm, Weight: 100.7 kg, BMI: 39.9 kg/m2, Pain Scale: 4, O2 Sat: 95 (%SpO2), RA. Allergies Cipro TABS Darvocet-N 50 [...] 3 TIMES DAILY.; Rx AAA-MED RECONCILE;Per patient.; RPT. Med list offered and patient declined. Orders Administered: Influenza (Split); 0.5ml; Intramuscular; Left Deltoid; Admin By: Josef Erwin; 19 May 2010 Amended By: Josef Eriwn ; 05/19/2010 2:25 PM TEST FIXTURE ASSEMBLER. Signature Signed By: Vlad [place] [facility]; 05/19/2010 12:40 PM TEST FIXTURE ASSEMBLER. Signed By: Josef Erwin [facility]; 05/19/2010 2:25 PM TEST FIXTURE ASSEMBLER. Signed By: Vlad [place] [facility]; 05/21/2010 11:59 AM TEST FIXTURE ASSEMBLER. documented in this encounter Plan of Treatment Upcoming Encounters Date Type Specialty Care Team Description 05/19/2022 Office Visit ENT Dima Hidalgo M D [address] [phone] (Wo rk) 08/02/2022 Office Visit Neurology Yair Campos MD [address] [place] [phone] (Wo rk) documented as of this encounter Visit Diagnoses Not on filedocumented in this encounter
--- OUTSIDE RECORDS SUMMARY | 2022-05-09 11:10 | XMS_ITS | Encounter Summary ---
:1955 Author Organization [place] Address [address] [facility] 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 documented in this encounter Results (ABNORMAL) CRP inflammation (07/14/2010 12:44 PM RETURNING OFFICER) Patholo gist Method Time Signature CRP Inflammation 33.3 (H) 0.0 - 8.0 MISYS mg/L Specimen Anatomical Collection Method Collection Time Receive d Time (Source) Location / / Volume Laterality 07/14/2010 12:44 07/14/2010 PM RETURNING OFFICER 12:36 PM RETURNING OFFICER Iglesia Ortiz MD LAB - BLOOD ORDERABLES Performing Organization Address City/State/ZIP Code Phon e Number MISYS documented in this encounter Visit Diagnoses Not on filedocumented in this encounter
--- OUTSIDE RECORDS SUMMARY | 2022-05-09 11:10 | XMS_ITS | Encounter Summary ---
:1955 Author Organization [place] Address [facility] 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 Bernal: Thank you so very kindly for asking me to consult on Ms. Becki Thomas. As you know, she is a 55-year-old woman whom you had seen for abnormal liver tests. I do see that you did speak with the patient about the natural history of nonalcoholic fatty liver disease and the possibility of normalization of liver tests with weight loss. You had sent her to me for weight loss through physical exercise. It is my understanding she is also going to the [facility] to learn nutritional changes for weight loss. The patient reports that she has gained about 100 pounds of weight in the last 20 years but about 50pounds of those have been in the last two years. In addition to having her liver abnormalities she also sees Dr. Ribera of Asthma and Allergy forher asthma and restrictive lung disease. At the current time she is not using any supplemental oxygen but she does use a number of medications, inhalers, and nebulizers. Past Medical History: The patient does have the liver abnormalities that you have seen her for. She has angioedema. She had an abnormal Pap smear of the cervix. She has asthma. She has esophageal reflux. She has excessive sleepiness during the day. She has difficulty breathing at night. She has nonalcoholic steatohepatitis, she has obesity, obstructive sleep apnea, and restless leg syndrome, rhinitis, snoring, and urticaria. Social History: The patient is . She is one of five children. She does have one daughter. 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 She lives in [place], [place]. She lives with her mother. Her mother is age 83 and she is the caregiver for her mother. She sets things up for her mother, she goes off to work, and then comes back in the evening to help take care of her mother. She is the only one doing this. She and her mother live in the patient's home in [place]. She used to enjoy exercise. She has a lifetime membership at [employer], but she stopped exercising a couple of years ago and does say that that corresponds quite nicely, unfortunately, with the50 pound weight gain. The patient has a high school diploma. She also studied psychology and speech pathology at [employer] and at [employer] but is just a slight bit shy of a bachelor's degree in that. She has also taken numerous courses in business analysis and computer sciences as well. Review of Systems: Negative other than as noted above. Current Medications: Listed on the electronic record. Allergies: The patient has allergies to Cipro, Darvocet, and Vicodin tabs. Physical Examination: General: The patient is a pleasant, alert, oriented, and cooperative woman. She is overweight. Vital Signs: Weight 221 pounds, that is 100 kilos, pain rating today is a 4 and that has to do with knees, hips, toes, and hands. Spine: Range of motion of the lumbar spine normal. Ambulation normal when I had her take off her high heels. By the way, I did recommend that she ambulate without high heels as that does affect her mechanics. However, apparently she can not do that because of her job. She has to be dressed appropriately for working at the [email or web address] which includes, unfortunately, high heels. Extremities: Sensation normal in upper and lower limbs. Reflexes symmetrical. Strength, low normal strength. The patient has no problems with getting up and ambulating. Assessment: Ms. Thomas is a very pleasant 55-year-old woman. She has had significant weight gain in the last couple of years corresponding with her discontinuance of her exercise program. At this point in time with all the extra weight I am thinking the best program for her would be an aquatic exercise program, but also some land based exercise and then to build up on her exercise over time. As she works for the [email or web address] in [facility] the closest place for her to go is [facility] in [place]. I have discussed this with the patient, she would like to do that. I have recommended that she do her exercise only within her tolerances with regard to any respiratory difficulties. I would hope that this would be helpful for her. She does have the nonalcoholic steatohepatitis, she has obesity and deconditioning, she has asthma and restrictive lung disease. The exercise would help her with her weight loss, would help improve her strength, her mobility, and her overall function. We will want the therapist to work with her both in the aquatic and nonaquatic programs to develop a good exercise program for improving her strength, flexibility, and mobility as well as to burn the kilocalories that are required for the weight loss that is needed. I would like to see the patient in follow up in two months' time to see how she is doing. Thank you so very kindly for asking me to consult on this very pleasant woman. She is certainly very motivated to improve her function. She is also rather busy being the only one of the five siblings who really is caring for her mother. 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 Sincerely, Aleks Rosa MD Professor Physical Medicine & Rehabilitation JA:11 cc: [address] [id number] Electronically signed by:Aleks Rosa M.D.,PhD Mar 18 2010 4:21PM PETROLEUM REFINERY WORKER Reviewed by:Gifty Bernal M.D. Mar 19 2010 2:29PM PETROLEUM REFINERY WORKER documented in this encounter Plan of Treatment Upcoming Encounters Date Type Specialty Care Team Description 05/19/2022 Office Visit ENT Dima Hidalgo M D [address] [facility] [place], [place] [address] (Wo rk) 08/02/2022 Office Visit Neurology Yair Campos MD [address] [place] [id number] (Wo rk) documented as of this encounter Visit Diagnoses Not on filedocumented in this encounter
--- OUTSIDE RECORDS SUMMARY | 2022-05-09 11:10 | XMS_ITS | Encounter Summary ---
:1955 Author Organization [place] Address [address] [facility] 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 No. Pain Eval Current history of pain associated with this visit is denied. Personal Hx Behavioral history: No tobacco use. Home environment: No secondhand tobacco smoke in home. Vital Signs Recorded by marv on 11 Jan 2010 01:45 PM BP:162/89, RUE, Sitting, HR: 79 b/min, Height: 62.5 in, Weight: 218 lb, BMI: 39.2 kg/m2. Allergies Cipro TABS Darvocet-N 50 TABS Vicodin TABS. Current Meds Albuterol 90 MCG/ACT AERS;INHALE 1-2 PUFFS EVERY 4-6 HOURS NEEDED AND DIRECTED.; RPT Provigil 200 MG Tablet;TAKE 1 AND 1/2 TABLETS DAILY.; RPT Requip 0.5 MG Tablet;TAKE 1 TABLET BEDTIME; RPT Advair Diskus 500-50 MCG/DOSE MISC;USE ONE INHALATION TWICE A DAY; Rx AAA-MED RECONCILE;; RPT Ibuprofen 200 MG Tablet;TAKE 1 TABLET 3 TIMES DAILY NEEDED.; RPT EpiPen 2-Db 0.3 MG/0.3ML (1:1000) SLOAN;INJECT 0.3ML INTRAMUSCULARLY DIRECTED.; Rx. Med list offered and patient declined. Signature Signed By: Joanne Fuller L.P.N.; 01/11/2010 1:59 PM UNDERGROUND CONDUIT INSTALLER. documented in this encounter Plan of Treatment Upcoming Encounters Date Type Specialty Care Team Description 05/19/2022 Office Visit ENT Dima Hidalgo M D [address] [place], [place] [address] (Sarah pino) 08/02/2022 Office Visit Neurology Yair Campos MD [address] [facility] [place] [address] (Sarah pino) documented as of this encounter Visit Diagnoses Not on filedocumented in this encounter
--- OUTSIDE RECORDS SUMMARY | 2022-05-09 11:10 | XMS_ITS | Encounter Summary ---
:1955 Author Organization [place] Address [address] [facility] 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 The patient states that this was diagnosed in 1998. She has never been jaundice. There is on history of acute hepatitis. She has never experienced any hematemesis, hematochezia, or melena. She admits to some pruritus that interferes with her sleep. She admits to muscle cramps. She reports a 100 pound weight gain over the past 20 years. She denies any history of diabetes or hypertension. No family history of liver disease. Alcohol history is nil. Risk factors for viral hepatitis are blood transfusion 25 years ago. Otherwise, no other risk factors. PAST MEDICAL HISTORY: No surgeries. She does have a history of angioedema. SOCIAL HISTORY: . She has one daughter. 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 PHYSICAL EXAMINATION: On physical examination, she is well-appearing, anicteric, and lucid, obese with a BMI of 40.6 with a weight of 100.7 kg. HEENT examination revealed no evidence of submandibular, supraclavicular, submental, or auricular lymphadenopathy. No thyromegaly. Cardiac examination: Regular with normal S1, S2 without S3, S4 without murmurs, rubs, or gallops. Lungs are clear to auscultation and percussion. Abdomen is soft and non-tender. Bowel sounds are intact. I could not appreciate anyorganomegaly due to body habitus. Lower extremities: There is no edema. Distal pulses are intact. DATA REVIEWED: She had laboratory studies from February 2009 with ALT of 104, AST 65. 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 She reports an 100 pound weight gain over the past 20 years. Possible differential diagnosis at this point includes viral hepatitis, such as hepatitis C from blood transfusion 25 years ago. In addition, non-alcoholic fatty liver disease. She will be evaluated with laboratory studies to ascertain the etiology of her liver disease. I have advised her regarding weight loss, exercise. She says that this is difficult due to difficulties breathing, therefore, I recommended her to go to the [facility] and also Physical Management for recommendations regarding exercise regimen. She will return to see me to discuss the findings and follow up. We talked about the natural history of non-alcoholic fatty liver disease and the possibility of normalization of liver tests with weight loss. Total time spent was 40 minutes, more than 50% of the time was spent in counseling. Gifty Bernal MD Department of Medicine Division of Gastroenterology CS:11 Electronically signed by:Gifty Bernal M.D. Feb 15 2010 10:07AM CAREER GUIDANCE COUNSELOR Reviewed by:Harpal Keith M.D. Feb 17 2010 2:21PM CAREER GUIDANCE COUNSELOR documented in this encounter Plan of Treatment Upcoming Encounters Date Type Specialty Care Team Description 05/19/2022 Office Visit ENT Dima Hidalgo M D [address] [facility] [address] [place], [place] [address] (Wo rk) 08/02/2022 Office Visit Neurology Yair Campos MD [address] [place] [phone] (Wo rk) documented as of this encounter Visit Diagnoses Not on filedocumented in this encounter
--- OUTSIDE RECORDS SUMMARY | 2022-05-09 11:10 | XMS_ITS | Encounter Summary ---
:1955 Author Organization [place] Address [facility] [place] [address] Care Team Providers Name Role Phone Unavailable Primary Care Provider Unavailable Encounter Details Date Type Department Care Team Description 05/19/2010 Office Visit-[facility] [[email or web address] The Transplant Jamar flood NachoAbiel Mr, 2nd Floor, Clinic 2A MD Efrain Kemp [address] [facility] Building [address] [place] [address] [address] [facility] [place] [address] Social History Tobacco Use Types Packs/Day Years Used Date Smoking Tobacco: Never Assessed Sex Assigned at Date Recorded Female 08/17/2018 10:39 PM PERSONNEL COUNSELOR documented as of this encounter Progress Notes Nacho Abiel Mr - 05/19/2010 12:40 PM CDT Life Skills Trainer: Abiel Griffith Status: Final - Signature Encounter: 19 May 2010 Type: Transplant Pulm Visit Pulmonary, Allergy and Critical Care Department of Medicine [place] Mail Code [address] [place] [address] Office: [phone] [facility] Second Floor, Clinic 2A [address] [place] [address] Appointments: [phone] RE: Becki Thomas : 1955 RODOLFO: 05/19/2010 CONSULTATION REASON FOR VISIT: Follow-up of shortness of breath. HISTORY OF PRESENT ILLNESS: A 55-year-old female with the past medical history of obstructive sleep apnea, hypertension, peripheral edema, and asthma (confirmed by methacholine test in 2006), presents for follow-up to ongoing shortness of breath. The patient was initially seen by me on February 17, 2010,at which time she was having difficulty climbing less than one flight of stairs and had a dry cough.Since her last visit, the patient has had 2 episodes of bronchitis with symptoms including fevers, worsening shortness of breath, purulent sputum production, and an increased cough. She has been treated by her primary care provider with one course of antibiotics for the first episode of bronchitis, and then a second course of antibiotics, as well as a prednisone burst starting at 40 mg and tapering over 10 days for her second episode of bronchitis, which was a couple of weeks ago. Since being on theantibiotic and prednisone combination, the patient has had improvement in her cough, as well as her shortness of breath with activity. However, she still feels that she is more short of breath today than she has been in the last couple of years. She reports that she is sleeping better with the use of omeprazole as she no longer wakes up coughing during the night. She was seen by physical medicine [facility] for weight loss on March 16, 2010, and she has been using a pedometer. She has also been attending pulmonary rehab, and she has gone for approximately 4 weeks and missed 2 weeks of rehab. She feels the breathing exercises are helpful, although she has not been doing very strenuous activity during her visits. She was unable to follow up with sleep medicine on April 01, 2010, for ree valuation of her current CPAP settings for her obstructive sleep apnea. Of note, she has also been seen recently by rheumatology on April 21, 2010, for diffuse joint pain.A fairly extensive serologic workup was performed and negative, except for an elevated CRP at 19 with a normal sed rate. Please see further lab details below. Also of note, the patient had an echocardiogram performed on February 20, 2009, during an evaluation by cardiology, which showed a technically difficult study with poor acoustic windows. However, global and regional LV function was normal with an ejection fraction of 60 to 65%. The inferior vena cava was normal in size with preserved respiratory variability. In addition, at that time the patient had a normal dobutamine stress echocardiogram. PAST MEDICAL HISTORY: 1. Asthma with a positive methacholine challenge in 2006. She has been followed by Dr. Bacilio palacios for this most recently. Most recent pulmonary function test from January 11, 2010, showed an FEV1 of 2 liters (81% predicted), FVC of 2.41 liters (77% predicted), and an FEV1/FVC ratio of 83%. Angioedema. Hypertension. Obstructive sleep apnea, currently using CPAP. Restless leg syndrome. Depression. Chronic rhinitis. Non-alcoholic fatty liver disease, followed by Dr. Gifty Bernal here. Arthralgias. Peripheral edema, new within the last year. Recurrent episodes of bronchitis. SOCIAL HISTORY: The patient is a lifelong nonsmoker. She has no pets at home, and she has not had any unusual inhalational exposures. FAMILY HISTORY: Mother diagnosed with emphysema by her primary physician, although she is a lifelongnonsmoker. Also, a paternal grandmother with breathing problems, although no formal diagnoses were made. Please see complete family history from my note on February 17, 2010. ALLERGIES: Cipro, Darvocet, and Vicodin. CURRENT MEDICATIONS: 1. EpiPen. Advair Diskus 500/50 mcg, 1 inhalation b.i.d. Ibuprofen p.r.n. Furosemide 20 mg b.i.d. Ventolin 90 mcg inhaler, 1 to 2 puffs every 4 to 6 hours as needed. Nasonex, 2 squirts to each nostril q.12h. Omeprazole 20 mg daily. Singulair 10 mg daily. Potassium 99, 1 tablet b.i.d. Nuvigil 250 mg daily. Requip 0.5 mg q.h.s. Buspirone 5 mg b.i.d. Albuterol sulfate 2.5 mg/3 ml neb q.4-6h. as needed. Tramadol 50 mg t.i.d. REVIEW OF SYSTEMS: A 10-point review of systems was completed and negative, except for HPI, as well as some ongoing knee and great toe pain and ongoing fatigue. PHYSICAL EXAMINATION: Temperature is 98.3, heart rate 83, blood pressure 136/72, respiratory rate 16, and oxygen saturation is 95% on room air. Weight is 100.7 kg and BMI 39.9 kg/m2. General: A pleasant, middle-aged female in no acute distress. HEENT: Pupils are equal, round, and reactive to light. Sclerae are anicteric. Moist mucosal membranes without lesions. Neck: No palpable lymphadenopathy. Lungs are clear to auscultation bilaterally. Cardiac: Regular rate and rhythm, no murmurs, gallops, or rubs. Abdomen is obese, normoactive bowel sounds, soft, nontender. Extremities: No clubbing or cyanosis. There is 1 to 2+ peripheral edema at the bilateral ankles. RESULTS: ANCA negative, creatinine 0.7, CRP 19, CCP antibody negative, ESR 14, hemoglobin A1c elevated at 7.2, CBC normal, rheumatoid factor negative, uric acid normal. ASSESSMENT: A 55-year-old female with multiple medical issues, including asthma, now here with ongoing dyspnea on exertion. Again, it is felt that the patient's dyspnea is likely multifactorial in etiology, including intermittent asthma exacerbations, morbid obesity, and fatigue related to side effects and restless leg syndrome. It is possible that the patient may have pulmonary hypertension secondary to her sleep apnea given that she still has excessive daytime somnolence and has also developed peripheral edema and progressive shortness of breath over the last year. She did have an echocardiogram performed in February of 2009, which did not show evidence of pulmonary hypertension, although it was a technically difficult study. RECOMMENDATIONS: 1. Continue current medications, including Advair, albuterol inhaler, albuterol nebs, Singulair, Nasonex, and omeprazole. Continue pulmonary rehabilitation, and I strongly encouraged the patient to continue exercising after she finishes pulmonary rehab as weight loss will likely help most of her medical problems. The patient is again referred back to Joanne Kimbrough in sleep medicine for reevaluation of her excessive daytime somnolence. She may need titration of her CPAP. The patient was given an influenza vaccination today. Echocardiogram to assess for pulmonary hypertension given progressive shortness of breath and lower extremity edema. I will follow up on the echocardiogram results and call the patient. The patient will return to the [facility] with me in 3 months. The patient was seen, examined, and discussed with Dr. Griffith. Tie in: Ms. Thomas was seen and examined by me with . The above note reflects our mutual findings. Echo suggested normal PA pressures. Abiel Griffith M.D. Asst. Professor, Pulmonary and Critical Care. Dictated by Yue Rangel MD Fellow BARBARA:11 cc: Aleks Lopez MD [place] [id number] [place] [address] Electronically signed by:Abiel Griffith M.D. Jun 23 2010 4:23PM PERSONNEL COUNSELOR Reviewed by:Julius Ribera M.D. Jun 28 2010 12:40PM PERSONNEL COUNSELOR documented in this encounter Plan of Treatment Upcoming Encounters Date Type Specialty Care Team Description 05/19/2022 Office Visit ENT Dima Hidalgo M D [address] [facility] [address] [place], [place] [address] (Wo rk) 08/02/2022 Office Visit Neurology Yair Campos MD [address] [place] [address] [address] [place], [place] [phone] (Sarah pino) documented as of this encounter Visit Diagnoses Not on filedocumented in this encounter
--- OUTSIDE RECORDS SUMMARY | 2022-05-09 11:10 | XMS_ITS | Encounter Summary ---
:1955 Author Organization [place] Address 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 The patient is seen because of concern regarding the quality of her voice and some difficultyswallowing. The patient occasionally has complete absence of her voice when she tries to speak, and the quality of her voice is altered on an unpredictable and intermittent basis. This is not a new symptom. This has been going on for at least one and one-half years, perhaps even longer. The patient avani known asthmatic. She uses rescue medicine but additionally uses Advair 500-50 on a regular basis for her asthma management. The patient also has a sensation of food getting stuck in her throat. She ge stures to the cricoid cartilage area. The patient also complains of occasionally a sensation of someone having hands around her neck and actually choking her. Again, the area is specifically felt at the area of the cricoid cartilage. The patient has not had to alter her diet as a consequence of her swallowing difficulty, and in fact she is gaining weight as opposed to having weight loss. REVIEW OF SYSTEMS: The patient's system review reveals, in addition to her symptoms of asthma and swallowing difficulty, the patient has intermittent significant swelling and in fact takes a diuretic on a twice-daily basis. The difficulty with the voice seems to be related as well to her generalized edema. PHYSICAL EXAMINATION: Her physical exam reveals external auditory canals and ears to be normal. Intranasal exam is unremarkable. There were no unusual masses or secretions. The nasopharynx is quite erythematous, but there are no ulcerations or other growths. The oropharynx is healthy. Mirrpr examination of the hypopharynx and larynx was unsatisfactory, so flexible fiberoptic rhinolaryngoscopy was recommended and accepted by the patient. The nose was sprayed with a topical decongestant and anesthetic mixture. The scope was passed through both sides of the nose. The nasopharynx was remarkable for erythema. The patient's tongue base was normal. There was some significant erythema of the posterior larynx, particularly the postcricoid andinterarytenoid area. Vocal folds move through full range of motion. There were no specific endolaryngeal lesions. The vallecula and piriform sinuses are clear. Aryepiglottic folds and epiglottis were normal. Palpation of the patient's neck reveals no unusual masses. Pressure over the cricoid cartilage reproduces the patient's complaint of a sense of obstruction when she swallows. DIAGNOSIS: Intermittent voice alteration, very likely secondary to the steroid in the Advair. There may be a role also from the intermittent edema that the patient experiences, and although the patienthas had previously a study relative to reflux, I am suspicious of GI reflux because of the location of erythema in the hypopharynx. MEDICAL DECISION-MAKING: She is recommended to elevate the head of her bed. She typically sleeps on several pillows because of her asthma, but it was pointed out that this does not assist in emptying her stomach, so the elevation of the head of bed is the only additional recommendation beyond the patient's current medication management. She can be seen on an as-needed basis. Domenic Spencer M.D. Otolaryngology-Head & Neck Surgery cc: Julius Ribera MD Allergy Department [facility] [address]:jayden DD 02/04/2010 Electronically signed by:Domenic Spencer MD Feb 11 2010 7:58AM MACHINE PACKAGER Reviewed by:Julius Ribera M.D. Feb 15 2010 2:47PM MACHINE PACKAGER documented in this encounter Plan of Treatment Upcoming Encounters Date Type Specialty Care Team Description 05/19/2022 Office Visit ENT Dima Hidalgo M D [address] [facility] [place], [place] [address] (Sarah pino) 08/02/2022 Office Visit Neurology Yair Campos MD [address] [place] [phone] (Sarah pino) documented as of this encounter Visit Diagnoses Not on filedocumented in this encounter
--- OUTSIDE RECORDS SUMMARY | 2022-05-09 11:10 | XMS_ITS | Encounter Summary ---
:1955 Author Organization [place] Address [facility]0 [facility] [place] [address] Care Team Providers Name Role Phone Unavailable Primary Care Provider Unavailable Encounter Details Date Type Department Care Team Description 10/13/2010 Office Visit-[facility] DEPT Gifty Bernal MD [address] [address] (Sarah pino) Social History Tobacco Use Types Packs/Day Years Used Date Smoking Tobacco: Never Assessed Sex Assigned at Date Recorded Female 08/17/2018 10:39 PM RETAIL SUPPORT SPECIALIST documented as of this encounter Progress Notes Gifty Bernal - 10/13/2010 1:40 PM CDT Stroboscope Operator: Gifty Bernal Status: Final - Signature Encounter: 2010-10-13 13:40:00.000 Type: GI Visit documented in this encounter Plan of Treatment Upcoming Encounters Date Type Specialty Care Team Description 05/19/2022 Office Visit ENT Dima Hidalgo M D [address] [place], [place] [address] (Wo rk) 08/02/2022 Office Visit Neurology Yair Campos MD [address] [place], [place] [address] (Sarah rk) documented as of this encounter Visit Diagnoses Not on filedocumented in this encounter
--- OUTSIDE RECORDS SUMMARY | 2022-05-09 11:10 | XMS_ITS | Encounter Summary ---
:1955 Author Organization [place] Address [address] [facility] [place] [address] Care Team Providers Name Role Phone Unavailable Primary Care Provider Unavailable Encounter Details Date Type Department Care Team Description 02/04/2010 Office Visit-[facility] DEPT Unknown, Provider Social History Tobacco Use Types Packs/Day Years Used Date Smoking Tobacco: Never Assessed Sex Assigned at Date Recorded Female 08/17/2018 10:39 PM MEMBER SERVICES COORDINATOR documented as of this encounter Progress Notes Unknown, Provider - 02/04/2010 8:30 AM CDT Onion Tier: Bobby Mascorro Status: Final Encounter: 04 Feb 2010 Type: Rooming Note Reason For Visit BECKI MOORE is a 55 year old female presenting today with troble with swolloing food and voice problems. Do you have any other appointments of any type today within the [facility] system? (this includes clinic appt's, Imaging, labs, procedures etc.) No. Pain Eval Current history of pain [...] smoke in home. Vital Signs Recorded by Bobby Mascorro on 04 Feb 2010 09:13 AM Weight: 100.3 kg Recorded by Love Stein on 03 Feb 2010 09:45 AM BP:117/69, RUE, Sitting, HR: 76 b/min, L Radial. Allergies Cipro TABS Darvocet-N 50 TABS Vicodin TABS. Current Meds Med list offered and patient declined. Provigil 200 MG Tablet;TAKE 1 AND 1/2 TABLETS DAILY.; RPT EpiPen 2-Db 0.3 MG/0.3ML (1:1000) SLOAN;INJECT 0.3ML INTRAMUSCULARLY DIRECTED.; Rx Requip 0.5 MG Tablet;TAKE 1 TABLET BEDTIME; RPT Advair Diskus 500-50 MCG/DOSE MISC;USE ONE INHALATION TWICE A DAY; Rx Ibuprofen 200 MG Tablet;TAKE 1 TABLET 3 TIMES DAILY NEEDED.; RPT AAA-MED RECONCILE;; RPT Furosemide 20 MG Tablet;TAKE 1 TABLET TWICE DAILY.; RPT Potassimin TABS;TAKE 2 TABLET DAILY; RPT Ventolin 90 MCG/ACT AERS;INHALE 1 TO 2 PUFFS EVERY 4 TO 6 HOURS NEEDED.; RPT. Furosemide 20 MG Tablet;TAKE 1 TABLET TWICE DAILY; Qty0; R0; RPT. Potassimin TABS;TAKE 2 TABLET DAILY; Qty0; R0; RPT. Ventolin 90 MCG/ACT AERS;INHALE 1 TO 2 PUFFS EVERY 4 TO 6 HOURS NEEDED; Qty0; R0; RPT. Orders Discontinue Albuterol 90 MCG/ACT AERS. Signature Signed By: Bobby Mascorro MA; 02/04/2010 9:17 AM MEMBER SERVICES COORDINATOR. documented in this encounter Plan of Treatment Upcoming Encounters Date Type Specialty Care Team Description 05/19/2022 Office Visit ENT Dima Hidalgo M D [address] [place] [address] (Wo rk) 08/02/2022 Office Visit Neurology Yair Campos MD [address] [facility] [place] [address] (Wo rk) documented as of this encounter Visit Diagnoses Not on filedocumented in this encounter
--- OUTSIDE RECORDS SUMMARY | 2022-05-09 11:10 | XMS_ITS | Encounter Summary ---
:1955 Author Organization [place] Address [address] [facility] [place] [address] Care Team Providers Name Role Phone Unavailable Primary Care Provider Unavailable Encounter Details Date Type Department Care Team Description 02/18/2010 Hospital Pathology [facility] Emiliano Zarco MD [facility] ENT SPECIALT Y CARE Results [address] [place], [place] [address] (Wo rk) Social History Tobacco Use Types Packs/Day Years Used Date Smoking Tobacco: Never Assessed Sex Assigned at Date Recorded Female 08/17/2018 10:39 PM AIR DIRECTOR documented as of this encounter Plan of Treatment Upcoming Encounters Date Type Specialty Care Team Description 05/19/2022 Office Visit ENT Dima Hidalgo M D [address] [place], [place] [address] (Wo rk) 08/02/2022 Office Visit Neurology Yair Campos MD [address] [place] [phone] (Wo rk) documented as of this encounter Procedures Procedure Name Priority Date/Time Associated Diagnosis Comme nts CL AFF SURGICAL Routine 02/18/2010 12:00 AM Resul ts for this PATHOLOGY CDT procedure are i n the results section. documented in this encounter Results Hospital - SURGICAL PATHOLOGY (02/18/2010 12:00 AM CDT) Component Value Ref Test Analysis Performed At [facility] Method Time Signature Copath Report Patient Name: BECKI MOORE V[place] MR#: [id number] Specimen #: [id number] Collected: 02/18/2010 Received: 02/18/2010 Reported: 02/19/2010 12:26 Ordering Phy(s): EMILIANO ZARCO Additional Phy(s): HAILEY DORAN SPECIMEN(S): Esophageal biopsy FINAL DIAGNOSIS: Esophagus, biopsy,: ? - No pathologic changes. ? - No eosinophilic infiltrate is present. I have personally reviewed all specimens and or slides, incl uding the listed special stains, and used them with my medical judgeme nt to determine the final diagnosis. Electronically signed out by: Felix Acuna M.D., ??[facility] CLINICAL HISTORY: 55-year-old female with dysphagia, undergoes esophageal biop sy to rule eosinophilic esophagitis. GROSS: One specimen is received labeled with the patient's name and medical record number. The specimen is designated esophagus. ??The specimen consi sts of one garcia-white to pink-mota 0.3 cm tissue fragment. ??Entirely singh bmitted. (Jar 0) ??(JAIRO Wilson/chelsea ??02/18/2010) MICROSCOPIC: Performed. TESTING LAB LOCATION: [facility], [address] ?? [id number] COLLECTION SITE: Client: [facility] Location: [facility] (B) Specimen (Source) Anatomical Collection Method Collection Time Re ceived Time Location / / Volume Laterality 02/18/2010 02/18/2010 11:4 8 AM CDT Emiliano Bynum MD LABORATORY Performing Organization Address City/State/ZIP Code Phon e Number V[place] documented in this encounter Visit Diagnoses Not on filedocumented in this encounter
--- OUTSIDE RECORDS SUMMARY | 2022-05-09 11:10 | XMS_ITS | Encounter Summary ---
:1955 Author Organization [place] Address [facility]0 [facility] [place] [address] Care Team Providers Name Role Phone Unavailable Primary Care Provider Unavailable Encounter Details Date Type Department Care Team Description 01/11/2010 Office Visit-[facility] DEPT Unknown, Provider Social History Tobacco Use Types Packs/Day Years Used Date Smoking Tobacco: Never Assessed Sex Assigned at Date Recorded Female 08/17/2018 10:39 PM SENIOR PHP WEB DEVELOPER documented as of this encounter Progress Notes Unknown, Provider - 01/11/2010 3:00 PM CDT Shear Operator: Gypsy Beal Status: Final Encounter: 11 Jan 2010 Type: Nurse Note Notes To whom it may concern: Patient Becki Thomas would benefit from parking closer to the entrance of her workplace due to her current breathing issues. The duration of this will be determined at next visit date. [facility] Gypsy eBal RN/Dr Ribera. Signature Signed By: Gypsy Beal RN; 01/13/2010 4:01 PM SENIOR PHP WEB DEVELOPER. documented in this encounter Plan of Treatment Upcoming Encounters Date Type Specialty Care Team Description 05/19/2022 Office Visit ENT Dima Hidalgo M D [address] [place], [place] [address] (Sarah pino) 08/02/2022 Office Visit Neurology Yair Campos MD [address] [facility] [address] [place], [place] [address] (Sarah pino) documented as of this encounter Visit Diagnoses Not on filedocumented in this encounter
--- OUTSIDE RECORDS SUMMARY | 2022-05-09 11:10 | XMS_ITS | Encounter Summary ---
:1955 Author Organization [place] Address [address] [facility] [place] [address] Care Team Providers Name Role Phone Unavailable Primary Care Provider Unavailable Encounter Details Date Type Department Care Team Description 03/01/2010 Office Visit-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 documented as of this encounter Progress Notes Julius Ribera - 03/01/2010 11:30 AM CDT Mobility Developer: Julius Ribera Status: Final - Signature Encounter: 01 Mar 2010 Type: Allergy and Asthma Visit Pulmonary, Allergy and Critical Care Department of Medicine [place] Mail Code [address] [place] [address] Office: [phone] Allergy and Ast[facility] Clinic [facility] Fifth Floor, Clinic [address] [place] [address] RE: Becki Thomas : 1955 RODOLFO: 03/01/2010 OUTPATIENT VISIT NOTE HISTORY OF PRESENT ILLNESS: Patient is a 55-year-old woman who I last saw in December of 2000 for bronchial asthma, elevated urine histamine, history of urticaria, bronchial asthma, voice change, and fatigue. She has been seeing ENT, no definite diagnosis made. She is being seen by Pulmonary, increased urinehistamine was still elevated. She has been seen by GI. She had a work up ordered on her last visit but still not completed. Pulmonary functions were slightly down but not major. REVIEW OF SYSTEMS: Otherwise, head, neck, ENT, respiratory tract, GI, , hematologic, endocrine, skin, neurological, psychiatric were all negative outside of what I mentioned above and previous notes. PHYSICAL EXAMINATION: Physical examination today shows weight 224, blood pressure 131/76, pulse 34. Head, EENT unremarkable. No edema was noted of the nasal mucosa. Neck examination revealed no abnormal neck vein distention. Lungs: No wheezes or rhonchi. Heart: No murmurs or arrhythmias. Abdominal examination without organomegaly. Skin negative. Neurological negative. Psychiatric negative. ASSESSMENT: 1. Bronchial asthma. 2. Elevated urine histamine. 3. Urticaria. 4. Voice change. 5. Fatigue. 6. Possible autoimmune disease. RECOMMENDATIONS: 1. Continue present program for the time being. 2. Finish the work up. 3. To be reevaluated after everything gets done. Julius Ribera M.D. artistic director Director, Asthma & Allergy Program [id number] Electronically signed by:Julius Ribera M.D. Mar 08 2010 12:23PM HOG FEEDER documented in this encounter Plan of Treatment Upcoming Encounters Date Type Specialty Care Team Description 05/19/2022 Office Visit ENT Dima Hidalgo M D [address] [place], [place] [address] (Sarah pino) 08/02/2022 Office Visit Neurology Yair Campos MD [address] [place], [place] [address] [place], [place] [address] (Wo rk) documented as of this encounter Visit Diagnoses Not on filedocumented in this encounter
--- OUTSIDE RECORDS SUMMARY | 2022-05-09 11:10 | XMS_ITS | Encounter Summary ---
:1955 Author Organization [place] Address [address] 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 No Have you had a recent hospitalization? Yes: [facility] due to abdominal pain Primary Care Provider: Dr. Aleks Lopez Referring Provider: Dr. Santiago. Pain Eval Current history of pain associated with this visit is as follows: Location: right side and lower back and joint/muscles Severity: 2 (Pain scale 1-10, with 10 being the worst) Duration: constant. Personal Hx Behavioral history: Caffeine use occasional coffee and soda. No tobacco use. Alcohol: Not using alcohol. Home environment: No secondhand tobacco smoke in home. Abuse / neglect: No abuse/neglect at home. Vital Signs Recorded by Gilda Carrillo on 05 Feb 2010 08:21 AM BP:138/70, LUE, Sitting, HR: 81 b/min, Resp: 18 r/min, Temp: 98.0 F, Oral, Height: 157.5 cm, Weight: 100.7 kg, BMI: 40.6 kg/m2, O2 Sat: 95 (%SpO2), RA. Allergies Cipro TABS Darvocet-N 50 TABS Vicodin TABS. Current Meds Med list printed and given to patient. Provigil 200 MG Tablet;TAKE 1 AND 1/2 [...] 4 TO 6 HOURS NEEDED.; RPT AAA-MED RECONCILE;; RPT Requip 0.5 MG Tablet;TAKE 1 TABLET DAILY as needed; RPT Lasix 20 MG Tablet;TAKE 1 TABLET TWICE DAILY; RPT. Signature Signed By: Gilda Carrillo CMA; 02/05/2010 8:29 AM MORTGAGE CLOSER. documented in this encounter Plan of Treatment Upcoming Encounters Date Type Specialty Care Team Description 05/19/2022 Office Visit ENT Dima Hidalgo M D [address] [facility] [place] [place], [place] [address] (Wo rk) 08/02/2022 Office Visit Neurology Yair Campos MD [address] [place], [place] [address] [place] [address] (Wo rk) documented as of this encounter Visit Diagnoses Not on filedocumented in this encounter
--- OUTSIDE RECORDS SUMMARY | 2022-05-09 11:10 | XMS_ITS | Encounter Summary ---
:1955 Author Organization [place] Address [address] [facility] 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
--- OUTSIDE RECORDS SUMMARY | 2022-05-09 11:10 | XMS_ITS | Encounter Summary ---
:1955 Author Organization [place] Address [address] [facility] 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 Do you have any other appointments, tests or procedures within the [place] system for this same day? No Have you had a recent hospitalization? No Primary Care Provider:Dr. Aleks Lopez Referring Provider: Dr. Aleks Lopez. Pain Eval Current history of pain associated with this visit is as follows: Location: right side Quality: sharp or dull Severity: 0 (now) 6 (sharp pain) 4 (dull) (Pain scale 1-10, with 10 being the worst) Duration: sharp pain lasts a few seconds but the dull pain can last for a couple days Timing: pt states nothing seems to trigger pain Modifying factors: no. Personal Hx Behavioral history: Caffeine use. No tobacco use. Alcohol: Not using alcohol. Home environment: No secondhand tobacco smoke in home. Abuse / neglect: No abuse/neglect at home. Vital Signs Recorded by Gilda Carrillo on 24 Mar 2010 10:43 AM BP:149/81, LUE, Sitting, HR: 82 b/min, Resp: 19 r/min, Temp: 97.8 F, Oral, Height: 158.8 cm, Weight: 100.5 kg, BMI: 39.9 kg/m2, O2 Sat: 95 (%SpO2), RA. Allergies [...] 10 MG Tablet;TAKE 1 TABLET DAILY.; Rx AAA-MED RECONCILE;Per patient.; RPT Potassium 99 MG Tablet;TAKE 1 TABLET TWICE DAILY; RPT Nuvigil 250 MG Tablet;TAKE 1 TABLET DAILY; RPT Requip 0.5 MG Tablet;TAKE 1 TABLET BEDTIME; RPT BusPIRone HCl 5 MG Tablet;TAKE 1 TABLET TWICE DAILY.; RPT Albuterol Sulfate (2.5 MG/3ML) 0.083% Nebulization Solution;USE 1 UNIT DOSE IN NEBULIZER EVERY 4 TO 6 HOURS NEEDED.; RPT. Signature Signed By: Gilda Carrillo WINDOWS SOFTWARE DEVELOPER; 03/24/2010 10:55 AM BEARING PRESS MACHINE OPERATOR. documented in this encounter Plan of Treatment Upcoming Encounters Date Type Specialty Care Team Description 05/19/2022 Office Visit ENT Dima Hidalgo M D [address] [place], [place] [address] (Wo rk) 08/02/2022 Office Visit Neurology Yair Campos MD [address] [place] [address] (Wo rk) documented as of this encounter Visit Diagnoses Not on filedocumented in this encounter
--- OUTSIDE RECORDS SUMMARY | 2022-05-09 11:10 | XMS_ITS | Encounter Summary ---
:1955 Author Organization [place] Address Count includes the [facility] 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 documented in this encounter Results UPPER GI ENDOSCOPY (02/18/2010 11:00 AM CDT) Component Value Ref Test Analysis Performed At [facility] Method Time Signature Upper GI [facility] RADIOLOGY Endoscopy Endoscopy Department-[facility] RESULTS Patient Name: Becki Thomas ? Gender: F ? Procedure Date: 02/18/2010 11: 00:00 AM ? Date of : 1955 ? Age: 55 ? Admit Type: Outpatient ? Note Status: Finalized ?Attending MD: Anat Fuller MD ? Pause For The Cause: Pause for the ca Procedure: ? Upper GI endoscopy Indications: ? Dysphagia Providers: ? Anat Fuller MD, Umesh swartz RN Referring MD: ?Mor Keith MD Medicines: ? Fentanyl IV 100 mcgs, Versed IV 2 mgs Complications: ? No immediate complications Procedure: ? - Prior to the procedure, a History and Physical was ? performed, and patient medication allergies were ? reviewed. The patient is competent. The risks and ? benefits of the procedure and the sedation options and ? risks were discussed with the patient. All questions ? were answered and informed consent was obtained. Patient ? identification and proposed procedure were verified by ? the physician in the procedure room. Mental Status ? Examination: alert and oriented. Airway Examination: ? normal oropharyng eal airway and neck mobility. ? Respiratory Examination: clear to auscultation. CV ? Examination: normal. Prophylactic Antibiotics: The ? patient does not require prophylactic antibiotics. Prior ? Anticoagulants: The patient has taken no previous ? anticoagu lant or antiplatelet agents. ASA Grade ? Assessment: II - A patient with mild systemic disease. ? After reviewing the risks and benefits, the patient was ? deemed in satisfactory condition to undergo the ? procedure. The anesthesia plan was to use moderate ? sedation / analgesia (conscious sedation). Immediately ? prior to administration of medications, the patient was ? re-assessed for adequacy to receive sedatives. The heart ? rate, respiratory rate, oxygen saturations, blood ? pressure, adequacy of pulmonary ventilation, and ? response to care were monitored throughout the ? procedure. The physical status of the patient was ? re-assessed after the procedu re. ? After obtaining informed consent, the endoscope was ? passed under direct vision. Throughout the procedure, ? the patie nt's blood pressure, pulse, and oxygen ? saturations were monitored continuously. The Endoscope ? was introduced through the mouth, and advanced to the ? second part of duodenum. The upper GI endoscopy was ? accomplished without difficulty. The patient tolerated ? the procedure well. ? Findings: ? The stomach was normal. The examined duod enum was normal. The examined ? esophagus was normal. Biopsies were taken with a cold forceps for ? histology. ? Impression: ?- Normal stomach. ? - Normal examined duodenum. ? - Normal esophagus. This was biopsied. Recommendation: ?- Await pathology results. ? electronically signed by Anat Fuller Anat Fuller MD Signed Date: 02/18/2010 11:23:26 AM Number of Addenda: 0 I was physically present for the entire viewing portion of t he exam. Signature of teaching physician B4c/D4c Note initiated on 02/18/2010 10:59:07 AM Specimen (Source) Anatomical Collection Method Collection Time Re ceived Time Location / / Volume Laterality 02/18/2010 11:00 AM CDT Harpal Keith MD PROCEDURES Performing Organization Address City/State/ZIP Code Phon e Number RADIOLOGY RESULTS documented in this encounter Visit Diagnoses Not on filedocumented in this encounter
--- OUTSIDE RECORDS SUMMARY | 2022-05-09 11:10 | XMS_ITS | Encounter Summary ---
:1955 Author Organization [place] Address [facility]0 [facility] 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 Iglesia Ortiz She may return to work on Date: 07/14/2010. Patient limitations: None. Signature Signed By: Joanne Cramer CMA; 07/14/2010 12:07 PM NETWORK SPECIALIST. Signed By: Iglesia Ortiz M.D.; 07/15/2010 3:33 PM NETWORK SPECIALIST. ORK SPECIALIST Iglesia Ortiz - 07/14/2010 11:00 AM CST Public Housing Manager: Ortiz, Iglesia Status: Final Encounter: 14 Jul 2010 Type: Rheum Visit Reason For Visit Reason for visit: BECKI THOMAS is 55 year old female seen for follow up of joint pain. Do you have any other appointments, tests or procedures within the [facility] system for this same day? No. HPI Ms. Thomas is a 55 yo female with a h/o obesity, asthma, YESSI, and arthritis who was seen last Aprilfor evaluation of joint pains. She returns for a follow up. She says that her pain has been better controlled with Tramadol, which she is using TID. She has been having a lot of problems in her hands and toes. It is difficult for her to determine if it is in her joints of her soft tissues. However, she did say that this Monday she felt terrible and had pain all over her joints, including large joints. The pain was most bothersome in her finger tips and was tingling and numb. She was worried about neuropathy and diabetes, given that her mother has Type 2 DMand she checked her BG and it was 216. She started cutting down on her carbs and sugars, and generally on her food intake. She lost 7 pounds in the last 4 days and the swelling decreased significantly in her hands and feet. Her BG was 124. With this, the pain in her hands and feet greatly improved. She continues to have numbness in all her 10 fingers that is associated with body and hand position.She also has some in her toes. The 2nd R toe's MCP joint has been painful and swollen. It became worse after her boyfriend accidently sat on her feet this Monday. ROS Puruple discoloration of finger tips in cold. Skin feeling tight and painful. Weight loss as above, increased energy level with the reduction in fluids and BG. Continues to have SOB. Has also had chronic dysphagia that has not worsened lately. Frequent thirst and urination - chronic as she is on diuretic. o/w negative in 11 point detail. Pain Eval Current history of pain associated with this visit is as follows: Location: Fingers and toes Quality: Aching Severity: 4 (Pain scale 1-10, with 10 being the worst) Duration: Ongoing Timing: Intermittent Context: Cold weather Modifying factors: IBU Associated signs/symptoms: Pain migrates, fingertips will occasionally turn purple, swelling, tingling. Active Problems Abnormal Pap Smear Of Cervix [...] Darvocet-N 50 TABS Vicodin TABS. Current Meds Furosemide 20 MG Tablet;TAKE 1 TABLET TWICE DAILY.; RPT Ventolin 90 MCG/ACT AERS;INHALE 1 TO 2 PUFFS EVERY 4 TO 6 HOURS NEEDED.; RPT Potassium 99 MG Tablet;TAKE 1 TABLET [...] TIMES DAILY.; Rx AAA-MED RECONCILE;Per patient.; RPT Singulair 10 MG Tablet;TAKE 1 TABLET DAILY.; Rx Omeprazole 20 MG Capsule Delayed Release;TAKE 1 CAPSULE DAILY.; Rx Nasonex 50 MCG/ACT Suspension;INSTILL 2 SQUIRT EVERY 12 HOURS; Rx Ibuprofen 200 MG Tablet;TAKE 1 TABLET 3 TIMES DAILY NEEDED.; RPT Advair Diskus 500-50 MCG/DOSE MISC;USE ONE INHALATION TWICE A DAY; Rx EpiPen 2-Db 0.3 MG/0.3ML (1:1000) SLOAN;INJECT 0.3ML INTRAMUSCULARLY DIRECTED.; Rx. Med list printed and given to patient. Vital Signs Recorded by Joanne Cramer on 14 Jul 2010 11:16 AM BP:140/84, RUE, Sitting, HR: 92 b/min, Height: 62.5 in, Weight: 218.2 lb, BMI: 39.3 kg/m2. Physical Exam General: Obese female, no acute distress. MS exam: mild deformity of DIP joints with no erythema, swelling, or tenderness. Full PROM in elbows, wrists, and hands with no tenderness to palpation of all BUE joints and no erythema or swelling. R 2nd MCP is mildly swollen with no erythema, she has tenderness to palpation proximal to the joint at the 2 metatarsal. PROM is WNL in knees, ankles, and toes. Skin: dry. Trace edema at B ankles. No edema in hands or fingers. No ulcerations. Neuro: negative Tinel's test, positive Phalen test bilaterally. Results Creatinine 21 Apr 2010 11:50 AM - Creatinine: 0.70 mg/dL - GFR, Estimated: 87 mL/min/1.7 - GFR, Est. if Black: >90 CRP, Inflammation 21 Apr 2010 11:50 AM - CRP, Inflammation: 19.0 mg/L Uric Acid 21 Apr 2010 11:50 AM - Uric Acid: 6.0 mg/dL ESR 21 Apr 2010 11:50 AM - ESR: 14 mm/h Hemoglobin A1C 21 Apr 2010 11:50 AM - Hemoglobin A1C: 7.2 % Rheumatoid Factor 21 Apr 2010 11:50 AM - Rheumatoid Factor: 10 IU/ml Vitamin B12 21 Apr 2010 11:50 AM - Vitamin B12: 716 pg/ml Folic Acid RBC 21 Apr 2010 11:50 AM - Folic Acid RBC: 575 ng/mLpackR ANCA IgG 21 Apr 2010 11:50 AM - ANCA IgG <1:20 Reference range: <1:20 (Note) <1:20 TEST INFORMATION: Anti-Neutrophil Cyto Ab, IgG Neutrophil Cytoplasmic Antibodies (C-ANCA = granular cytoplasmic staining, P-ANCA = perinuclear staining) are found in the serum of over 90 percent of patients with certain necrotizing systemic vasculitides, and usually in less than 5 percent of patients with collagen vascular disease or arthritis. Performed by [employer], [address] [place] [id number] [email or web address], Shruthi Santiago MD, Lab. Director Cyclic Cit Pept IgG 21 Apr 2010 11:50 AM - Cyclic Cit Pept IgG: <2Interpretation: Negative KNEE, 1-2 VIEWS LEFT(U-ORTHO) 21 Apr 2010 11:24 AM - KNEE, 1-2 VIEWS LEFT Principal Result Lining Presser: ELLY BENTLEY DR&& O KNEE, 1-2 VIEWS LEFT Apr 21, 2010 11:25:00 AM Comparison: None History: Knee pain. Findings: Single standing frontal views of each knee are provided. There is medial compartment joint space narrowing in the right knee with minimal medial compartment osteophytic spurring. There are no fractures identified. Impression: Mild medial compartment joint space narrowing in the right knee. I have personally reviewed the image and initial interpretation and agree with the findings. Performed at: [facility] FOOT, 2 VIEW RIGHT(U-ORTHO) 21 Apr 2010 11:23 AM - FOOT, 2 VIEW RIGHT Principal Result Lining Presser: ELLY BENTLEY DR&& O FOOT,2 VIEW RIGHT Apr 21, 2010 11:24:00 AM Comparison: None History: 2nd MTP pain Findings: Frontal and lateral standing views of the right foot are provided. There is a moderate hallux valgus deformity with a small bunion. There is lateral subluxation of the lateral great toe sesamoid. There is a small accessory navicular. There is a small plantar calcaneal spur. There is nonuniform medial joint space narrowing of the second metatarsophalangeal joint with a small osteophytic spur along the medial aspect of the base of the second proximal phalanx. Impression: 1. 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 2. Moderate hallux valgus deformity. I have personally reviewed the image and initial interpretation and agree with the findings. Performed at: [facility]. Assessment 1- Osteorthritis. - Negative exam and lab findings do not suggest inflammatory arthritis but rather suggests osteoarthritis. - CRP was mildly elevated which is not specific and could be eleavted for a number or reasons. We will repeat. - Use supportive measure for toe or splint it with 3rd toe to improve pain. Xray done last visit suggests OA. 2- Possible diabetes. Recommend further follow up with PCP. 3- Possible Carpel Tunnel synrdome. Recommend better glucose control, to be managed by PCP. 4- Peripheral Edema: cause unknown, ? diastolic HF, ? diabetes. Causing increased pain and numbness in her extremities. Will defer further management by PCP. Plan {{{[ ]}}}. Tie in Statement I saw this patient with Dr. Lord and I agree with his findings and recommendations. My further comments: 1. Finger/foot swelling: I am concerned that these symptoms may be related to fluid shifts associated with poorly controlled Type II AODM. I recommend discussion with Dr. Lopez about glucose monitoring and possible medication. I do not find evidence of a defined rheumatic disease. 2. Increased CRP: this is isolated and of unclear etiology. With nl ESR, this result suggests an acute inflammatory process (intercurrent infection). 3. 2nd toe pain: xray revealed MTP OA changes. I recommend wide toe-box shoe gear and a trial of splinting the 2nd to the 3rd toe with adhesive tape. Podiatry referral will be made prn poor response tothese measures. 4. UE neuritic symptoms: If these continue with optimization of blood sugar control, I recommend EMG/NCV to evaluate possible entrapment neuropathy (CTS). RTC prn cc: Dr. Lopez. Signature Signed By: Joanne Cramer CMA; 07/14/2010 11:20 AM NETWORK SPECIALIST. Signed By: Iglesia Ortiz M.D.; 07/15/2010 3:43 PM NETWORK SPECIALIST. Reviewed By: Harpal Keith M.D.; 07/20/2010 8:17 AM NETWORK SPECIALIST. ORK SPECIALIST documented in this encounter Plan of Treatment Upcoming Encounters Date Type Specialty Care Team Description 05/19/2022 Office Visit ENT Dima [facility]idalgo M D [address] [facility] [place], [place] [address] (Sarah pino) 08/02/2022 Office Visit Neurology Yair Campos MD [address] [place] [phone] (Sarah pino) documented as of this encounter Visit Diagnoses Not on filedocumented in this encounter
--- OUTSIDE RECORDS SUMMARY | 2022-05-09 11:10 | XMS_ITS | Encounter Summary ---
:1955 Author Organization [facility] Address [address] [facility] 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 No. Pain Eval Current history of pain associated with this visit is denied. Personal Hx Behavioral history: No tobacco use. Home environment: No secondhand tobacco smoke in home. Vital Signs Recorded by marv on 01 Mar 2010 11:41 AM BP:131/76, LUE, Sitting, HR: 94 b/min. Allergies Cipro TABS Darvocet-N 50 TABS Vicodin TABS. Current Meds EpiPen 2-Db 0.3 MG/0.3ML (1:1000) SLOAN;INJECT 0.3ML INTRAMUSCULARLY DIRECTED.; Rx Advair Diskus 500-50 MCG/DOSE MISC;USE ONE INHALATION TWICE A DAY; Rx Furosemide 20 MG Tablet;TAKE 1 TABLET TWICE DAILY.; RPT Potassimin TABS;TAKE 2 TABLET DAILY; RPT Ventolin 90 MCG/ACT AERS;INHALE 1 TO 2 PUFFS EVERY 4 TO 6 HOURS NEEDED.; RPT AAA-MED RECONCILE;; RPT Singulair 10 MG Tablet;TAKE 1 TABLET DAILY.; Rx Omeprazole 20 MG Capsule Delayed Release;TAKE 1 CAPSULE DAILY.; Rx Nasonex 50 MCG/ACT Suspension;INSTILL 2 SQUIRT EVERY 12 HOURS; Rx Ibuprofen 200 MG Tablet;TAKE 1 TABLET 3 TIMES DAILY NEEDED.; RPT Provigil 200 MG Tablet;TAKE 1 AND 1/2 TABLETS DAILY.; RPT Lasix 20 MG Tablet;TAKE 1 TABLET TWICE DAILY; RPT Requip 0.5 MG Tablet;TAKE 1 TABLET DAILY as needed; RPT. Med list declined. Signature Signed By: Joanne Fuller L.P.N.; 03/01/2010 11:43 AM OUTREACH COUNSELOR. Signed By: Joanne Fuller L.P.N.; 03/01/2010 11:44 AM OUTREACH COUNSELOR. documented in this encounter Plan of Treatment Upcoming Encounters Date Type Specialty Care Team Description 05/19/2022 Office Visit ENT Dima [facility]idalgo M D [address] [facility] [place], [place] [address] (Sarah pino) 08/02/2022 Office Visit Neurology Yair Campos MD [address] [place] [phone] (Sarah pino) documented as of this encounter Visit Diagnoses Not on filedocumented in this encounter
--- OUTSIDE RECORDS SUMMARY | 2022-05-09 11:10 | XMS_ITS | Encounter Summary ---
:1955 Author Organization [place] Address [address] [facility] 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 HC X-RAY FOOT 2 Routine 04/21/2010 11:23 AM Resul ts for this VIEWS CDT procedure are i n the results section. documented in this encounter Results X-RAY KNEE 1 OR 2 VIEW (04/21/2010 11:24 AM CDT) Anatomical Region Laterality Modality Other Specimen (Source) Anatomical Collection Method Collection Time Re ceived Time Location / / Volume Laterality 04/21/2010 11:24 AM CDT Impressions 04/23/2010 6:41 AM CDT O KNEE, 1-2 VIEWS LEFT ??Apr 21, 2010 11 :25:00 AM Comparison: None History: ??Knee pain. Findings: Single standing frontal views of each knee are provided. There is medial compartment joint space narrowing in the right knee with minimal medial compartment osteophy tic spurring. There are no fractures identified. Impression: Mild medial compartment join t space narrowing in the right knee. I have personally reviewed the image and initial interpretation and agree with the findings. Iglesia Ortiz MD GENERAL IMAGING X-RAY FOOT 2 VW (04/21/2010 11:23 AM CDT) Anatomical Region Laterality Modality Other Specimen (Source) Anatomical Collection Method Collection Time Re ceived Time Location / / Volume Laterality 04/21/2010 11:23 AM CDT Impressions 04/23/2010 6:42 AM CDT O FOOT,2 VIEW RIGHT ??Apr 21, 2010 11:24 :00 AM Comparison: None History: ??2nd MTP pain Findings: Frontal and lateral standing v iews of the right foot are provided. There is a moderate hallux quincy morelia deformity with a small bunion. There is lateral subluxation of the lateral great toe sesamoid. There is a small accessory sae icular. There is a small plantar calcaneal spur. There is nonunif orm medial joint space narrowing of the second metatarsophalang eal joint with a small osteophytic spur along the medial aspect of the base of the second proximal phalanx. Impression: 1. 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 2. Moderate hallux valgus deformity. I have personally reviewed the image and initial interpretation and agree with the findings. Iglesia Ortiz MD GENERAL IMAGING documented in this encounter Visit Diagnoses Not on filedocumented in this encounter
--- OUTSIDE RECORDS SUMMARY | 2022-05-09 11:10 | XMS_ITS | Encounter Summary ---
:1955 Author Organization [place] Address [address] 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 HISTAMINE URINE Routine 01/28/2010 1:30 PM Result s for this CDT procedure are i n the results section. documented in this encounter Results Urinalysis collection volume & duration (01/28/2010 1:30 PM CDT) athologist Signature Duration in 24.0 h MISYS hours Volume in mL 629 mL MISYS Specimen Anatomical Collection Method Collection Time Receive d Time (Source) Location / / Volume Laterality 01/28/2010 1:30 PM 0 4:00 CDT PM CDT Julius Ribera MD LAB - URINE ORDERABLES Performing Organization Address City/[facility] Phon e Number MISYS (ABNORMAL) Histamine urine (01/28/2010 1:30 PM CDT) athologist Signature Histamine 2313 MISYS Urine/Volume Comment: Unit: nmol/L Histamine Urine/G Creatinine 835 (H) M ISYS Comment: Reference range: 0 to 386 Unit: nmol/g (Note) TEST INFORMATION: ??Histamine, Urine nmo l/g creat This test uses a kit designated by the tia smith as for research use, not for clinical use. The performance characteristics of this test were valida deborah by [employer] The U.S. Food and Jamison g Administration (FDA) has not approved this test. The re sults are not intended to be used as the sole means fo r clinical diagnosis or patient management decision s. [employer] is authorized under Clinical Laboratory Imp rovement Amendments (CLIA) and by all states to p erform high- complexity testing. Creatinine For Histamine 24 H/Random Urine 277 MISYS Comment: Unit: mg/dL (Note) Performed by [employer], [address] [place] [id number] [email or web address], Shruthi Santiago MD, Lab. Director Specimen Anatomical Collection Method Collection Time Receive d Time (Source) Location / / Volume Laterality 01/28/2010 1:30 PM 0 4:00 CDT PM CDT Julius Ribera MD LAB - URINE ORDERABLES Performing Organization Address City/State/ZIP Code Phon e Number MISYS documented in this encounter Visit Diagnoses Not on filedocumented in this encounter
--- OUTSIDE RECORDS SUMMARY | 2022-05-09 11:10 | XMS_ITS | Encounter Summary ---
:1955 Author Organization [place] Address [facility] 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 Would like refill of Requip today if possible. Do you have any other appointments, tests or procedures within the [place] system for this same day? No. Pain Eval Current history of pain associated with this visit is as follows: Location: Bilateral hands Quality: Numbness, burning Severity: 4 (Pain scale 1-10, with 10 being the worst) Duration: Constant Timing: Daily, worse at end of day Context: Chronic joint/muscle pain Modifying factors: Pain is worse when flexing hands/gripping objects Associated signs/symptoms: Fluid retention. Active Problems Abnormal Pap Smear Of Cervix [...] smoke in home. Vital Signs Recorded by [email or web address] on 16 Mar 2010 09:05 AM BP:125/77, LUE, Sitting, HR: 78 b/min, L Radial, Height: 62.5 in, Weight: 221 lb, BMI: 39.8 kg/m2, Pain Scale: 4. Allergies Cipro TABS Darvocet-N 50 TABS Vicodin TABS. Current Meds Provigil 200 MG Tablet;TAKE 1 AND 1/2 [...] 10 MG Tablet;TAKE 1 TABLET DAILY.; Rx Amoxicillin CAPS;TAKE 1 CAPSULE TWICE DAILY.; RPT Requip 0.5 MG Tablet;TAKE 1 TABLET DAILY NEEDED.; RPT Potassium TABS;TAKE 2 TABLETS DAILY.; RPT AAA-MED RECONCILE;Per patient.; RPT. Signature Signed By: Yamile Durham ; 03/16/2010 9:31 AM LABORER HEADING. documented in this encounter Plan of Treatment Upcoming Encounters Date Type Specialty Care Team Description 05/19/2022 Office Visit ENT Dima Hidalgo M D [address] [phone] (Wo rk) 08/02/2022 Office Visit Neurology Yair Campos MD [address] [place] [phone] (Wo rk) documented as of this encounter Visit Diagnoses Not on filedocumented in this encounter
--- OUTSIDE RECORDS SUMMARY | 2022-05-09 11:10 | XMS_ITS | Encounter Summary ---
:1955 Author Organization [place] Address 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 documented in this encounter Results Echo complete with definity (05/21/2010 10:54 AM CDT) [facility] Method Time Signature [facility] RADIOLOGY Interpretation Summary RESULTS Global and regional left ventricular function is normal with an EF of 60-65%. No regional wall motion abnormalities are seen. Global right ventricular function is normal. Pulmonary artery systolic pressure is no rmal. No pericardial effusion is present. PatientHeight: 62 in PatientWeight: 218 lbs BSA 2.0 m^2 Procedure Echocardiogram with two-dimensional, color and spectral Dopp ler performed. Contrast Definity. Left Ventricle Global and regional left ventricular function is normal with an EF of 60-65%. Left ventricular size is normal. Left ventricular wall thickness is normal. No regional wall motion abnormalities are seen. Right Ventricle The right ventricle is normal size. Global right ventricular function is normal. Atria Both atria appear normal. Mitral Valve The mitral valve is normal. Aortic Valve Aortic valve is normal in structure and function. Tricuspid Valve The tricuspid valve is normal. Trace tricuspid insufficiency is present. Pulmonary artery systolic pressure is normal. The TR peak pressure gradient is 14 mmHg . Pulmonic Valve The pulmonic valve cannot be assessed. Vessels The aorta root is normal. The inferior vena cava ??is normal. Pericardium No pericardial effusion is present. Compared to Previous Study This study was compared with the study from 02/20/2009 . There has been no change. MMode 2D Measurements & Calculations IVSd: 1.1 cm LVIDd: 4.2 cm LVIDs: 2.0 cm LVPWd: 1.1 cm LVPWs: 0.00 cm FS: 52 % LV mass(C)d: 159 grams Ao root diam: 3.3 cm LA dimension: 3.3 cm LA/Ao: 1.0 LVOT diam: 2.0 cm Doppler Measurements & Calculations MV E point: 90 cm/sec MV A point: 63 cm/sec MV E/A: 1.4 MV dec time: 0.21 sec TR Max P mmHg Interpreting Physician: ??Gwyn Mendoza MD electr onically signed on 05-21-2010 13:36:03 Anatomical Region Laterality Modality Echocardiography Specimen (Source) Anatomical Collection Method Collection Time Re ceived Time Location / / Volume Laterality 05/21/2010 10:54 AM CDT Yue Rangel MD CV ECHO ORDERABLES documented in this encounter Visit Diagnoses Not on filedocumented in this encounter
--- OUTSIDE RECORDS SUMMARY | 2022-05-09 11:10 | XMS_ITS | Encounter Summary ---
:1955 Author Organization [place] Address [address] 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 [place], [place] [phone] (Wo rk) documented as of this encounter Procedures Procedure Name Priority Date/Time Associated Comments Diagnosis URIC ACID Routine 04/21/2010 11:50 Results for this AM CDT procedure are i n the results section. RHEUMATOID FACTOR Routine 04/21/2010 11:50 Result s for this AM CDT procedure are i n the results section. HEMOGLOBIN A1C Routine 04/21/2010 11:50 Results f or this AM CDT procedure are i n the results section. FOLIC ACID RBC Routine 04/21/2010 11:50 Results f or this AM CDT procedure are i n the results section. ERYTHROCYTE Routine 04/21/2010 11:50 Results for this SEDIMENTATION RATE AUTO AM CDT proc edure are in the results section. CYCLIC CITRULLINATED Routine 04/21/2010 11:50 Res ults for this PEPTIDE SKINNY IGG AM CDT procedure ar e in the results section. CRP INFLAMMATION Routine 04/21/2010 11:50 Results for this AM CDT procedure are i n the results section. CREATININE Routine 04/21/2010 11:50 Results for this AM CDT procedure are i n the results section. ANTINEUTROPHIL Routine 04/21/2010 11:50 Results f or this CYTOPLASMIC SKINNY IGG AM CDT procedur e are in the results section. VITAMIN B12 Routine 04/21/2010 11:50 Results for this AM CDT procedure are i n the results section. CBC WITH PLATELETS Routine 04/21/2010 11:50 Resul ts for this AM CDT procedure are i n the results section. documented in this encounter Results Antineutrophil cytoplasmic Skinny IgG (04/21/2010 11:50 AM CDT) P athologist Signature Neutrophil <1:20 MISYS Cytoplasmic IgG Antibody Comment: Reference range: <1:20 (Note) <1:20 TEST INFORMATION: Anti-Neutrophil Cyto A b, IgG Neutrophil Cytoplasmic Antibodies (C-ANC A = granular cytoplasmic staining, P-ANCA = perinucle ar staining) are found in the serum of over 90 percent of patients with certain necrotizing systemic vasculitide s, and usually in less than 5 percent of patients with col lagen vascular disease or arthritis. Performed by [employer], [address] [place] [id number] [email or web address], Shruthi Santiago MD, Lab. Director ? Specimen Anatomical Collection Method Collection Time Receive d Time (Source) Location / / Volume Laterality 04/21/2010 11:50 04/21/2010 AM CDT 11:26 AM CDT [facility] Interface LAB - BLOOD ORDERABLES Performing Organization Address [facility] Phon e Number MISYS CBC with platelets (04/21/2010 11:50 AM CDT) P athologist Signature MCV 83 78 - 100 fl MISYS MCH 27.3 26.5 - 33.0 MISYS pg MCHC 33.0 31.5 - 36.5 MISYS g/dL RDW 13.7 10.0 - 15.0 MISYS % WBC 7.4 4.0 - 11.0 MISYS 10e9/L RBC Count 4.94 3.8 - 5.2 MISYS 10e12/L Hemoglobin 13.5 11.7 - 15.7 MISYS g/dL Hematocrit 40.9 35.0 - 47.0 MISYS % Platelet Count 239 150 - 450 MISYS 10e9/L Specimen Anatomical Collection Method Collection Time Receive d Time (Source) Location / / Volume Laterality 04/21/2010 11:50 04/21/2010 AM CDT 11:26 AM CDT Aramis Interface LAB - BLOOD ORDERABLES Performing Organization Address [facility] Phon e Number MISYS Cyclic citrullinated peptide skinny IgG (04/21/2010 11:50 AM CDT) Analysis Performed At Patho logist Time Signature Cyclic <2 <5 U/mL MISYS Citrullinated Peptide IgG Comment: Interpretation: Negative Specimen Anatomical Collection Method Collection Time Receive d Time (Source) Location / / Volume Laterality 04/21/2010 11:50 04/21/2010 AM CDT 11:26 AM CDT Transcripton Interface LAB - BLOOD ORDERABLES Performing Organization Address [facility] Phon e Number MISYS Creatinine (04/21/2010 11:50 AM CDT) athologist Signature Creatinine 0.70 0.52 - 1.04 MISYS mg/dL Comment: New IDMS-traceable calibration beginning 11/15/07 GFR Estimate 87 >60 mL/min/1.7m2 MISYS GFR Estimate If Black >90 >60 mL/min/1.7m2 M ISYS Specimen Anatomical Collection Method Collection Time Receive d Time (Source) Location / / Volume Laterality 04/21/2010 11:50 04/21/2010 AM CDT 11:26 AM CDT Transcripton Interface LAB - BLOOD ORDERABLES Performing Organization Address City/State/ZIP Code Phon e Number MISYS (ABNORMAL) CRP inflammation (04/21/2010 11:50 AM CDT) [facility] gist Method Time Signature CRP Inflammation 19.0 (H) 0.0 - 8.0 MISYS mg/L Specimen Anatomical Collection Method Collection Time Receive d Time (Source) Location / / Volume Laterality 04/21/2010 11:50 04/21/2010 AM CDT 11:26 AM CDT Transcripton Interface LAB - BLOOD ORDERABLES Performing Organization Address City/State/ZIP Code Phon e Number MISYS (ABNORMAL) Hemoglobin A1c (04/21/2010 11:50 AM CDT) athologist Signature Hemoglobin A1C 7.2 (H) 4.3 - 6.0 MISYS % Specimen Anatomical Collection Method Collection Time Receive d Time (Source) Location / / Volume Laterality 04/21/2010 11:50 04/21/2010 AM CDT 11:26 AM CDT Transcripton Interface LAB - BLOOD ORDERABLES Performing Organization Address City/State/ZIP Code Phon e Number MISYS Folic acid RBC (04/21/2010 11:50 AM CDT) athologist Signature Folic Acid RBC 575 280 - 791 MISYS ng/mL packRBC Specimen Anatomical Collection Method Collection Time Receive d Time (Source) Location / / Volume Laterality 04/21/2010 11:50 04/21/2010 AM CDT 11:26 AM CDT Transcripton Interface LAB - BLOOD ORDERABLES Performing Organization Address City/State/ZIP Code Phon e Number MISYS Rheumatoid factor (04/21/2010 11:50 AM CDT) P athologist Signature Rheumatoid 10 0 - 14 MISYS Factor IU/mL Specimen Anatomical Collection Method Collection Time Receive d Time (Source) Location / / Volume Laterality 04/21/2010 11:50 04/21/2010 AM CDT 11:26 AM CDT Transcripton Interface LAB - BLOOD ORDERABLES Performing Organization Address City/[facility] Phon e Number MISYS Uric acid (04/21/2010 11:50 AM CDT) P athologist Signature Uric Acid 6.0 2.5 - 7.5 MISYS mg/dL Specimen Anatomical Collection Method Collection Time Receive d Time (Source) Location / / Volume Laterality 04/21/2010 11:50 04/21/2010 AM CDT 11:26 AM CDT Transcripton Interface LAB - BLOOD ORDERABLES Performing Organization Address [facility] Phon e Number MISYS Vitamin B12 (04/21/2010 11:50 AM CDT) P athologist Signature Vitamin B12 716 >210 pg/mL MISYS Comment: Interp: [phone] = Normal Specimen Anatomical Collection Method Collection Time Receive d Time (Source) Location / / Volume Laterality 04/21/2010 11:50 04/21/2010 AM CDT 11:26 AM CDT Transcripton Interface LAB - BLOOD ORDERABLES Performing Organization Address [facility] Phon e Number MISYS Erythrocyte sedimentation rate auto (04/21/2010 11:50 AM CDT) P athologist Signature Sed Rate 14 0 - 30 mm/h MISYS Specimen Anatomical Collection Method Collection Time Receive d Time (Source) Location / / Volume Laterality 04/21/2010 11:50 04/21/2010 AM CDT 11:26 AM CDT Transcripton Interface LAB - BLOOD ORDERABLES Performing Organization Address City/State/ZIP Code Phon e Number MISYS documented in this encounter Visit Diagnoses Not on filedocumented in this encounter
--- OUTSIDE RECORDS SUMMARY | 2022-05-09 11:10 | XMS_ITS | Encounter Summary ---
:1955 Author Organization [place] Address [facility]0 [facility] 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 Signature Signed By: Stephanie New RN; 11/03/2010 9:57 AM CONSERVATION PLANNER. Signed By: Gifty Bernal M.D.; 11/08/2010 10:35 AM CONSERVATION PLANNER. documented in this encounter Plan of Treatment Upcoming Encounters Date Type Specialty Care Team Description 05/19/2022 Office Visit ENT Dima Hidalgo M D [address] [facility] [address] [place], [place] [address] (Wo rk) 08/02/2022 Office Visit Neurology Yair Campos MD [address] [place] [address] (Wo rk) documented as of this encounter Visit Diagnoses Not on filedocumented in this encounter
--- OUTSIDE RECORDS SUMMARY | 2022-05-09 11:10 | XMS_ITS | Encounter Summary ---
:1955 Author Organization [place] Address [facility]0 [facility] 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 documented in this encounter Results Pulmonary function test procedure (03/01/2010 11:01 AM CDT) Component Value Ref Test Analysis Performed At [facility] Method Time Signature Pulmonary RADIOLOGY Function Test Name: ? BECKI MOORE ? ID: ?[id number] RESULTS Doctor: ?ISABELLA, MAL HECTOR ? Height: ? 61.50 in ? Age: ?55 Tech: ? NASI, MARY ?Weight: ? 215.00 lbs ?? Sex: ?Female Date: ?03/01/2010 ?Time: ??11:01:27 AM ? Race: ? <Unspecified> Secondary ID: PT ID: ? [id number] ?Doctor ID: Change Status: Diagnosis: ?ASTHMA Dyspnea: Cough: Wheeze: Yrs Quit: ? Pks/Day: Yrs Smk: ?Tbco Pr od: Post-Test Comments: ?? Good efforts; ??2.5mg Albuterol/NS given. ? PRE-BRONCH ?POST-BRONCH ? Actual ?Pred ?%Pred ??Actual ?? %Pred ? %Chng SPIROMETRY FVC (L) ?2.30 ?3.13 ? 73 ?2.22 ?71 ?-4 FEV1 (L) ? 1.84 ?2.45 ? 75 ?1.87 ?77 ? 2 FEV1/FVC (%) ? 80 ?79 ?101 ?85 ? 107 ? 6 FEF 25% (L/sec) ?6.70 ? 6.43 ?-4 FEF 50% (L/sec) ?2.74 ?3.78 ? 72 ?2.91 ?77 ? 6 FEF 75% (L/sec) ?0.50 ?1.33 ? 37 ?0.57 ?42 ?13 FEF 25-75% (L/sec) ? 1.75 ?2.42 ? 73 ?1.95 ?81 ?11 FEF Max (L/sec) ?6.79 ?6.16 ?110 ?6.48 ? 105 ?-5 FIVC (L) ? 2.04 ? 2.06 ? 1 FIF 50% (L/sec) ?3.36 ?3.78 ? 89 ?3.34 ?88 ?-1 FIF Max (L/sec) ?4.16 ?4.21 ? 99 ?4.22 ? 100 ? 1 The FEV1 and FVC are reduced but the FEV1/FVC ratio is fely l. ??The inspiratory flow rates are within normal limits. ??Following administration of bronchodilators, there is no significant response. IMPRESSION:(The PFT standard for spirometry has been changed as of (12/13/05) to NHANESIII, so the % predicted values might not correlate to prior PFTs.) Restriction possible This preliminary report should not be used clinically unless reviewed and signed by a physician. ADRIANNA GALEANA Specimen Anatomical Collection Method Collection Time Receive d Time (Source) Location / / Volume Laterality 03/01/2010 11:01 03/01/2010 2:07 AM CDT PM CDT Transcripton Interface MD PFT ORDERABLES Performing Organization Address City/State/ZIP Code Phon e Number RADIOLOGY RESULTS documented in this encounter Visit Diagnoses Not on filedocumented in this encounter
--- OUTSIDE RECORDS SUMMARY | 2022-05-09 11:10 | XMS_ITS | Encounter Summary ---
:1955 Author Organization [place] Address [address] [facility] 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 documented as of this encounter Progress Notes Julius Ribera - 01/11/2010 3:00 PM CDT Director Biologics: Julius Ribera Status: Final - Signature Encounter: 11 Jan 2010 Type: Allergy and Asthma Visit Pulmonary, Allergy and Critical Care Department of Medicine [place] Mail [address] [place] [address] Office: [phone] [facility] Fifth Floor, Clinic [address] [place] [address] RE: Becki Thomas : 1955 RODOLFO: 01/11/2010 OUTPATIENT VISIT NOTE HISTORY OF PRESENT ILLNESS: Patient is a 54-year-old woman who presents with a history of bronchial asthma and a history of urticaria in the past. No trouble lately. Her main symptoms now are shortnessof breath, changes in her voice, and her asthma is fairly mild at the present time. Her PFTs in the past showed restriction and possibly some obstruction. At present, she is on Advair 500/50 one whiff twice a day, albuterol as needed, and Singulair 10 mg a day. PAST MEDICAL HISTORY: She is on Lasix for fluid retention, Lunesta for sleep problems. She did not have elevated urine histamine in the past. REVIEW OF SYSTEMS: Remainder of the system review, constitutional, allergy, eyes, ENT, respiratory, GI, , hematologic, endocrine, skin, musculoskeletal, neurological, psychiatric were all negative except for what I mentioned above. PHYSICAL EXAMINATION: Physical examination today shows weight 218. Head, EENT unremarkable. No edemawas noted of the nasal mucosa. Neck examination revealed no abnormal neck vein distention. Lungs: Nowheezes or rhonchi. Heart: No murmurs or arrhythmias. Abdominal examination without organomegaly. Skin negative. Neurological negative. Psychiatric negative. ASSESSMENT: 1. Bronchial asthma. 2. Elevated urine histamine. 3. History of urticaria. 4. Bronchial asthma. 5. Voice change. 6. Fatigue. RECOMMENDATIONS: 1. ENT consult. 2. Pulmonary consult. 3. 24 hour urine for histamine. 4. GI consult. 5. Return visitin four to eight weeks. 6. Note we do have disability parking. 7. To be reevaluated in a couple months or sooner if needed. Julius Ribera M.D. garbage collector Director, Asthma & Allergy Program [id number] Electronically signed by:Julius Ribera M.D. Jan 13 2010 3:59PM WEED CUTTER documented in this encounter Plan of Treatment Upcoming Encounters Date Type Specialty Care Team Description 05/19/2022 Office Visit ENT Dima Hidalgo M D [address] [place], [place] [address] (Wo rk) 08/02/2022 Office Visit Neurology Yair Campos MD [address] [place] [phone] (Wo rk) documented as of this encounter Visit Diagnoses Not on filedocumented in this encounter
--- OUTSIDE RECORDS SUMMARY | 2022-05-09 11:10 | XMS_ITS | Encounter Summary ---
:1955 Author Organization [place] Address [address] [facility] 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 Do you have any other appointments, tests or procedures within the [facility] system for this same day? Yes, x-rays. Have you had a recent hospitalization? No. Pain Eval Current history of pain associated with this visit is as follows: Location: joints Quality: [ ] Severity: 3 (Pain scale 1-10, with 10 being the worst) Duration: [ ] Timing: [ ] Context: [ ] Modifying factors: [ ] Associated signs/symptoms: [ ]. Personal Hx Behavioral history: No tobacco use. Home environment: No secondhand tobacco smoke in home. Vital Signs Recorded by Vlad Frederick on 17 Feb 2010 12:34 PM BP:137/78, RUE, Sitting, HR: 80 b/min, Resp: 16 r/min, Normal, Temp: 98.4 F, Oral, Height: 157.5 cm, Weight: 99.3 kg, BMI: 40 kg/m2, Pain Scale: 3, O2 Sat: 96 (%SpO2), RA. Allergies Cipro [...] EVERY 4 TO 6 HOURS NEEDED.; RPT Requip 0.5 MG Tablet;TAKE 1 TABLET DAILY as needed; RPT Lasix 20 MG Tablet;TAKE 1 TABLET TWICE DAILY; RPT AAA-MED RECONCILE;; RPT. Signature Signed By: Vlad Frederick CMA; 02/17/2010 12:38 PM TELEVISION PARTS TESTER. documented in this encounter Plan of Treatment Upcoming Encounters Date Type Specialty Care Team Description 05/19/2022 Office Visit E[facility] Dima [facility]idal[facility] M [facility] [address] [facility] [place] [address] (Sarah pino) 08/02/2022 Office Visit Neurology Yair Campos MD [address] [facility], [place], [place] [address] (Sarah pino) documented as of this encounter Visit Diagnoses Not on filedocumented in this encounter
--- OUTSIDE RECORDS SUMMARY | 2022-05-09 11:10 | XMS_ITS | Encounter Summary ---
:1955 Author Organization [place] Address [facility] 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 HISTORY OF PRESENT ILLNESS: 55-year-old female with the past medical history of asthma, obstructive sleep apnea, restless leg syndrome, morbid obesity, and angioedema, who presents for evaluation of worsening shortness of breath. The patient has been followed by Dr. Ribera in the Allergy Clinic for her asthma. However, she feels that over the last few years her shortness of breath has become moreof a problem, now limiting her exercise. She previously jogged each morning, but she had to stop secondary to asthma problems, mainly where she would get an asthma exacerbation with any type of exercise. She currently is able to walk up less than one flight of stairs without stopping due to her shortness of breath. She also reports shortness of breath at rest, mainly with talking. In addition, she has an intermittent dry cough and some posttussive emesis, as well as wheezing intermittently when she breathes. The patient first noted breathing problems back in 1999, when she was exposed to a high amount of [place] requiring an Emergency Department visit for shortness of breath. Over the next couple of weeks,she had over 8 visits for shortness of breath and continued to have ongoing problems. She was diagnosed with asthma approximately 5 years ago, and she did have a positive methacholine test here in 2006. In terms of triggers to her asthma, they include exercise, fumes, mold, grass, and humidity. She has not had any overnight hospitalizations or intubations related to her asthma, but has had multiple Emergency Department and outpatient office visits. She thinks that the last visit to her primary doctor was 6 to 9 months ago. She has been on prednisone bursts and tapers over 10 times per year, the last one 6 to 9 months ago. She does not typically use her rescue albuterol inhaler as she does not feellike this helps. She does have home nebulizer machine, which she uses maybe once a week depending onher symptoms, which she does get significant relief from. Her main concern today is her desire to exercise without becoming significantly short of breath. PAST MEDICAL HISTORY: 1. Angioedema with multiple Emergency Department visits. Hoarseness recently evaluated by direct laryngoscopy via ears, nose, throat. Asthma diagnosed 5 years ago, maintained on Advair, as well as albuterol nebs p.r.n. Hypertension. Obstructive sleep apnea. Uses CPAP nightly. Last sleep study was in February of 2009. Restless leg syndrome, initially diagnosed in 2000, and again seen on sleep study from February of 2009. History of urticaria. Lower extremity edema for approximately 9 months, now on Lasix therapy. Depression. Chronic rhinitis. SOCIAL HISTORY: The patient has been twice. She moved to [place] in 2000 from [place], [place], and she currently lives with her mother. She is a lifelong nonsmoker and does not use alcohol or recreational drugs. 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 She doesnot have any pets at home, and she does not feel that she has any unusual inhalational exposures. FAMILY HISTORY: The patient's father at age 75 from a ruptured pancreas. He also had coronary artery disease and underwent a 4-vessel bypass surgery, as well as atrial fibrillation. Mother hasbeen diagnosed with emphysema by her primary doctor, although she is a lifelong nonsmoker. This was diagnosed in her 80s. She had a paternal grandmother who also had breathing problems, although she was never formally diagnosed with anything. She has a maternal aunt who has had multiple DVTs, and a sister who has had a pulmonary embolus on 2 occasions. She also has a maternal aunt with arthritis. ALLERGIES: Cipro, Darvocet, and Vicodin. CURRENT MEDICATIONS: 1. Provigil 200 mg daily. EpiPen as directed. Advair 500/50, 1 inhalation twice a day. Ibuprofen 200 mg t.i.d. p.r.n. Lasix 20 mg b.i.d. Potassium, 2 tablets daily. Albuterol 90 mcg inhaler, 1 to 2 puffs q.4-6h. as needed. Albuterol nebulizer as needed. Requip 0.5 mg daily as needed. The patient has not been taking this on a regular basis. She has tried glucosamine chondroitin for joint pains, and intermittently takes aspirin 81 mg. REVIEW OF SYSTEMS: Constitutional: Positive for approximate 100 pound weight gain, much of which hasbeen in the last 2 years with a current body mass index of 40. In addition, she also has chills alternating with sweats, and she feels that she is always hot. HEENT: Positive for vision changes, intermittent sore throat, intermittent sinus pain, chronic postnasal drip, intermittent rhinorrhea, and intermittent epistaxis. Cardiac: Positive for intermittent palpitations, as well as sharp chest discomfort, which moves around, in addition to orthopnea, paroxysmal nocturnal dyspnea, and lower extremity edema. Cardiac evaluation completed a year ago included a normal dobutamine stress echo, normal EKG, and normal echocardiogram. Pulmonary: Per HPI. GI: Intermittent nausea and vomiting occurring most days. Intermittent loose stools alternating with constipation. Intermittent epigastric pain and heartburn symptoms. Genitourinary: Intermittent dysuria and irregular menses. The patient has been perimenopausal for approximately 2 years. Musculoskeletal: Positive for myalgias, arthralgias, and swollen joints. Neurology: Positive for intermittent headaches, as well as intermittent weakness in the arms and legs, and excessive daytime somnolence where the patient needs to sleep at her desk daily. Dermatology: Intermittent breakouts, as well as itchiness, but no new rashes. Endocrine: Negative. Lymphatics: Negative. Psychiatry: Positive for depression. She has previously been tried on 12 different antidepressants, but had adverse effects with all of these. She is now being followed by a psychologist. PHYSICAL EXAMINATION: Temperature 98.4, heart rate 80, blood pressure 137/78, respiratory rate 16, oxygen saturation is 96% on room air, weight 99.3 kg, and body mass index is 40 kg/m2. General: Pleasant middle-aged female, appears fatigued, but otherwise in no acute distress. HEENT: Pupils are equal,round, and reactive to light. Sclerae are anicteric. Moist mucosal membranes without lesions. Oropharynx is clear. Neck with increased girth, but no palpable lymphadenopathy. The lungs are clear to auscultation bilaterally. Cardiac: Regular rate and rhythm, no murmurs, gallops, or rubs. No jugular venous distention. Abdomen: Obese, normoactive bowel sounds, soft, and nontender. Extremities: No clubbing, cyanosis, or edema. No evidence of synovitis. Neurologic: Appropriate with questions, normal gait. RESULTS: Recent negative AMARILIS, ceruloplasmin, anti-smooth muscle antibody, hepatitis C antibody, CBC,and antimitochondrial antibody. She also had a TSH that was slightly elevated on February 05, 2010, but a free T4 was within the normal range. Most recent pulmonary function test on January 11, 2010, showed an FEV1 of 2 liters (81% of predicted),FVC 2.41 liters (77% of predicted), and an FEV1/FVC ratio of 83%, which is 79% of predicted. These were comparable to her pulmonary function tests from February of 2009. Of note, the patient did have a positive methacholine challenge test in 2006 where her FEV1 by 23%. IMAGING: Chest x-ray performed today with clear lung laughlin and no evidence of cardiomegaly. ASSESSMENT: A 55-year-old female with dyspnea, which is likely multifactorial in etiology, includingintermittent asthma exacerbations, morbid obesity, and profound fatigue related to her sleep apnea and restless leg syndrome. It appears by history that the patient's cough may be worsened by postnasaldrip and possibly reflux disease. In addition, her daytime somnolence and hypersomnia is poorly controlled despite taking Provigil. The patient has not been taking Requip daily as requested. PLAN: 1. Continue the current Advair 500/50, as well as p.r.n. albuterol nebs. Add Singulair due to some environmental allergies possibly contributing to worsening of her asthma. Nasonex for postnasal drip. PPI daily for reflux symptoms and possible contribution to worsening of asthma. The patient is referred back to Joanne Kimbrough in the Sleep Medicine Clinic for reevaluation of her hypersomnia. Referral placed to pulmonary rehab. The patient will return to the [facility] with me in 3 months. The patient was seen, examined, and discussed with Dr. Griffith. Tie in: was seen and examined by me with Dr. Rangel. The above note reflects our mutual findings. Abiel Griffith M.D. Asst. Professor. Dictated by Yue Rangel MD Fellow BARBARA:11 cc: Julius Ribera MD [facility] [address] Aleks Lopez MD [facility] [place] [id number] [place] [address] [place] [address] Electronically signed by:Abiel Griffith M.D. Mar 05 2010 5:27PM CONVERTING SUPERVISOR Reviewed by:Julius Ribera M.D. Mar 08 2010 12:23PM CONVERTING SUPERVISOR documented in this encounter Plan of Treatment Upcoming Encounters Date Type Specialty Care Team Description 05/19/2022 Office Visit ENT Dima Hidalgo M D [address] [facility] [place], [place] [address] (Wo rk) 08/02/2022 Office Visit Neurology Yair Campos MD [address] [facility] [place], [place] [id number] (Wo rk) documented as of this encounter Visit Diagnoses Not on filedocumented in this encounter
--- OUTSIDE RECORDS SUMMARY | 2022-05-09 11:10 | XMS_ITS | Encounter Summary ---
:1955 Author Organization [place] Address [address] 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 Visit Closing Pt verbalized agreement with and understanding of the plan as defined in her discussion with MD. Major no questions. Signature Signed By: Catrachita Nolasco RN,MSN,BC; 02/04/2010 11:29 AM INDUSTRIAL ENGINEERING. documented in this encounter Plan of Treatment Upcoming Encounters Date Type Specialty Care Team Description 05/19/2022 Office Visit ENT Dima Hidalgo M D [address] [address] (Wo rk) 08/02/2022 Office Visit Neurology Yair Campos MD [address] [place], [place] [address] [place] [address] (Wo rk) documented as of this encounter Visit Diagnoses Not on filedocumented in this encounter
--- OUTSIDE RECORDS SUMMARY | 2022-05-09 11:10 | XMS_ITS | Encounter Summary ---
:1955 Author Organization [place] Address [address] [facility] 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 She is a 55-year-old woman who presentedto see me at the beginning of February for evaluation of abnormal liver function tests. At that time, due to her history, it was presumed that her liver tests abnormalities were due to non-alcoholic fatty liver disease. She underwent extensive testing, the results of which were discussed with her today.It appears that she has no evidence of primary biliary cirrhosis on serologies, hepatitis B on serologies, or C, no evidence of autoimmune liver disease. She has normal liver function with an albumin of 3.8, slightly low total protein of 6.7, really more at the lower end of normal. She does have evidence, however, of hepatocellular injury pattern. An MRI of the abdomen disclosed, on March 16, 2010, evidence of fatty infiltration of the liver. So, hepatocellular injury pattern in association with fatty infiltration of the liver on imaging in a patient who has had 100 pounds weight gain over the past 20 years, mostly of which occurred in the past year to year and a half. These constellation of findings are consistent with non-alcoholic fatty liver disease. We spoke extensively about weight loss and exercise. She has already started a weight loss program. She had a regimen prescribed for exercise due to her pulmonary disease, and I have asked her to coordinate this with a physical therapist. I talked to her about the natural history of non-alcoholic fatty liver disease, the fact that 10% weight loss may normalize her liver tests. I have advised her to take vitamin E at 200 to 400 international units a day based on recent studies that have shown improvement in non-alcoholic fatty liver disease.She will return to see me in six months. If at that time she has lost weight and her liver test abnormalities persist, then a liver biopsy will be considered. Total time spent was 20 minutes, more than 50% of the time was spent in counseling. Gifty Bernal MD Department of Medicine Division of Gastroenterology CS:11 Electronically signed by:Gifty Bernal M.D. Mar 26 2010 5:31PM DECAL DECORATOR documented in this encounter Plan of Treatment Upcoming Encounters Date Type Specialty Care Team Description 05/19/2022 Office Visit ENT Dima Hidalgo M D [address] [facility] [place], [place] [address] (Wo rk) 08/02/2022 Office Visit Neurology Yair Campos MD [address] [place], [place] [phone] (Wo rk) documented as of this encounter Visit Diagnoses Not on filedocumented in this encounter
--- OUTSIDE RECORDS SUMMARY | 2022-05-09 11:10 | XMS_ITS | Encounter Summary ---
:1955 Author Organization [place] Address [facility] 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 documented as of this encounter Progress Notes Provider, [facility] Nurse - 02/25/2010 4:53 PM CDT Yarn Texture Machine Operator: Shy Luevano Status: Final - Signature Encounter: 25 Feb 2010 Type: Chart Note patient came to clinic 2A at 4:50 PM complaining of left ear pain and states has chills has not taken temperature/no apparant distress/states since having EGD she has cough/now productive prn with green phlegm/recommended Primary Care visit /urgent care within 24 hours/patient states she is goingto ED because my ear really hurts and I couhed up a little blood today patient stable to go to ED Electronically signed by:Shy Luevano Feb 25 2010 5:00PM WIND ENERGY ENGINEER documented in this encounter Plan of Treatment Upcoming Encounters Date Type Specialty Care Team Description 05/19/2022 Office Visit ENT Dima Hidalgo M D [address] [place] [address] (Wo rk) 08/02/2022 Office Visit Neurology Yair Campos MD [address] [facility] [place] [address] (Wo rk) documented as of this encounter Visit Diagnoses Not on filedocumented in this encounter
--- OUTSIDE RECORDS SUMMARY | 2022-05-09 11:10 | XMS_ITS | Encounter Summary ---
:1955 Author Organization [place] Address [address] [facility] 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 documented in this encounter Results CHEST X-RAY 2 VW (02/17/2010 12:05 PM CDT) Anatomical Region Laterality Modality Other Specimen (Source) Anatomical Collection Method Collection Time Re ceived Time Location / / Volume Laterality 02/17/2010 12:05 PM CDT Impressions 02/17/2010 3:50 PM CDT Examination: CHEST TWO VIEW*, Feb 17 0 12:05:00 PM Comparison: Chest CT dated 03/21/2007. History: Shortness of breath, asthma. Findings: The cardiac silhouette is norm al in size. Pulmonary vasculature appears within normal limits . Lungs and costophrenic angles are clear. Impression: No acute airspace disease. I have personally reviewed the image and initial interpretation, and I agree with findings. Matthew Alejandra MD GENERAL IMAGING documented in this encounter Visit Diagnoses Not on filedocumented in this encounter
--- OUTSIDE RECORDS SUMMARY | 2022-05-09 11:10 | XMS_ITS | Encounter Summary ---
:1955 Author Organization [place] Address [address] [facility] [place] [address] Care Team Providers Name Role Phone Unavailable Primary Care Provider Unavailable Encounter Details Date Type Department Care Team Description 02/05/2010 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 T4 FREE Routine 02/05/2010 9:45 AM Results f or this CDT procedure are i n the results section. MITOCHONDRIAL M2 Routine 02/05/2010 9:45 AM Resul ts for this ANTIBODY IGG CDT procedure are i n the results section. HEPATITIS C ANTIBODY Routine 02/05/2010 9:45 AM R esults for this CDT procedure are i n the results section. HEPATITIS B SURFACE Routine 02/05/2010 9:45 AM Re sults for this ANTIGEN CDT procedure are i n the results section. HEPATITIS BE ANTIGEN Routine 02/05/2010 9:45 AM R esults for this CDT procedure are i n the results section. F ACTIN EIA WITH Routine 02/05/2010 9:45 AM Resul ts for this REFLEX CDT procedure are i n the results section. COMPREHENSIVE Routine 02/05/2010 9:45 AM Results for this METABOLIC PANEL CDT procedure ar e in the results section. CERULOPLASMIN Routine 02/05/2010 9:45 AM Results for this CDT procedure are i n the results section. ANTINUCLEAR ANTIBODY Routine 02/05/2010 9:45 AM R esults for this SCREEN BY EIA CDT procedure are in the results section. ALPHA 1 ANTITRYPSIN Routine 02/05/2010 9:45 AM Re sults for this PHENOTYPE CDT procedure are i n the results section. CBC WITH PLATELETS Routine 02/05/2010 9:45 AM Res ults for this CDT procedure are i n the results section. documented in this encounter Results Alpha 1 antitrypsin phenotype (02/05/2010 9:45 AM CDT) athologist Signature Alpha 1 143 MISYS Antitrypsin Phenotyping Comment: Reference range: 100 to 200 Unit: mg/dL (Note) To convert to umol/L, multiply mg/dL by 0.185 Alpha1 Antitrypsin Phenotyping M1M1 MISYS Comment: (Note) The patient appears to have a wild-type phenotype. All M alleles (including subtypes M1, M2, and M3) produce normal serum concentrations of ixids-4-lqjnarqs inhibitor and are not associated with clinical disease. Ca ution in interpretation is advised if the patient has been transfused within the previous 21 days. Performed by [facility], [address] [place] [id number] www.[employer], Shruthi Santiago MD, Lab. Director Specimen Anatomical Collection Method Collection Time Receive d Time (Source) Location / / Volume Laterality 02/05/2010 9:45 AM 0 9:32 CDT AM CDT Gifty Bernal MD LAB - BLOOD ORDERABLES Performing Organization Address City/State/ZIP Code Phon e Number MISYS CBC with platelets (02/05/2010 9:45 AM CDT) P athologist Signature MCV 81 78 - 100 fl MISYS MCH 27.6 26.5 - 33.0 MISYS pg MCHC 34.0 31.5 - 36.5 MISYS g/dL RDW 14.0 10.0 - 15.0 MISYS % WBC 8.3 4.0 - 11.0 MISYS 10e9/L RBC Count 4.56 3.8 - 5.2 MISYS 10e12/L Hemoglobin 12.6 11.7 - 15.7 MISYS g/dL Hematocrit 37.1 35.0 - 47.0 MISYS % Platelet Count 213 150 - 450 MISYS 10e9/L Specimen Anatomical Collection Method Collection Time Receive d Time (Source) Location / / Volume Laterality 02/05/2010 9:45 AM 0 9:32 CDT AM CDT Gifty Bernal MD LAB - BLOOD ORDERABLES Performing Organization Address City/[facility] [place]/[facility] Phon e Number MISYS (ABNORMAL) Comprehensive metabolic panel (02/05/2010 9:45 AM CDT) P athologist Signature Sodium 138 133 - 144 MISYS mmol/L Potassium 4.2 3.4 - 5.3 MISYS mmol/L Chloride 107 94 - 109 MISYS mmol/L Carbon Dioxide 24 20 - 32 MISYS mmol/L Glucose 161 (H) 60 - 99 MISYS mg/dL Urea Nitrogen 10 7 - 30 MISYS mg/dL Creatinine 0.65 0.52 - MISYS 1.04 mg/dL Comment: New IDMS-traceable calibration beginning 11/15/07 GFR Estimate >90 >60 mL/min/1.7m2 MISYS GFR Estimate If Black >90 >60 mL/min/1.7m2 M ISYS Calcium 8.8 8.5 - 10.4 mg/dL MISYS AST 87 (H) 0 - 45 U/L MISYS Protein Total 6.7 (L) 6.8 - 8.8 g/dL MISYS Anion Gap 7 6 - 17 mmol/L MISYS Albumin 3.8 3.3 - 4.9 g/dL MISYS ALT 130 (H) 0 - 50 U/L MISYS Alkaline Phosphatase 79 40 - 150 U/L MISYS Bilirubin Total 0.2 0.2 - 1.3 mg/dL MISYS Specimen Anatomical Collection Method Collection Time Receive d Time (Source) Location / / Volume Laterality 02/05/2010 9:45 AM 0 9:32 CDT AM CDT Gifty Bernal MD LAB - BLOOD ORDERABLES Performing Organization Address City/State/ZIP Code Phon e Number MISYS Ceruloplasmin (02/05/2010 9:45 AM CDT) athologist Signature Ceruloplasmin 38 23 - 53 MISYS mg/dL Specimen Anatomical Collection Method Collection Time Receive d Time (Source) Location / / Volume Laterality 02/05/2010 9:45 AM 0 9:32 CDT AM CDT Gifty Bernal MD LAB - BLOOD ORDERABLES Performing Organization Address [facility] [place]/[facility] Code Phon e Number MISYS F Actin EAI with reflex (02/05/2010 9:45 AM CDT) athologist Signature F-Actin 6 MISYS Antibody IgG Comment: Unit: Units (Note) REFERENCE INTERVAL: F-Actin Antibody, Ig G 19 Units or less ....... Negative 20 - 30 Units .......... Weak Positive- Suggest repeat ?t esting in two to three weeks ?w ith fresh specimen. 31 Units or greater..... Positive-Sugge stive of ?a utoimmune hepatitis or ?c hronic active hepatitis. F-actin antibodies have been shown to mcmillan ve greater sensitivity and specificity for autoimmu ne liver disease than anti-smooth muscle antibodies. Performed by [facility], [address] [place], [place] [address] [address] www.[employer], Shruthi Santiago MD, Lab. Director Specimen Anatomical Collection Method Collection Time Receive d Time (Source) Location / / Volume Laterality 02/05/2010 9:45 AM 0 9:32 CDT AM CDT Gifty Bernal MD LAB - BLOOD ORDERABLES Performing Organization Address [facility] [place]/[facility] Phon e Number MISYS Antinuclear antibody screen by EIA (02/05/2010 9:45 AM CDT) athologist Signature AMARILIS Screen by <1.0 0 - 1.0 MISYS EIA Comment: Interpretation: Negative Specimen Anatomical Collection Method Collection Time Receive d Time (Source) Location / / Volume Laterality 02/05/2010 9:45 AM 0 9:32 CDT AM CDT Gifty Bernal MD LAB - BLOOD ORDERABLES Performing Organization Address [facility] Phon e Number MISYS T4 free (02/05/2010 9:45 AM CDT) athologist Signature T4 Free 0.74 0.70 - 1.85 MISYS ng/dL Specimen Anatomical Collection Method Collection Time Receive d Time (Source) Location / / Volume Laterality 02/05/2010 9:45 AM 0 9:32 CDT AM CDT Gifty Bernal MD LAB - BLOOD ORDERABLES Performing Organization Address [facility] Phon e Number MISYS Mitochondrial M2 antibody IgG (02/05/2010 9:45 AM CDT) Analysis Performed At [facility] Signature Mitochondrial 0.6 MISYS Antibody IgG Comment: Reference range: 0.0 to 20.0 Unit: Units (Note) REFERENCE INTERVAL: Mitochondrial M2 Ab, IgG (ANDER) 20.0 Units or less ......... Negative 20.1 - 24.9 ??............... Equivocal 25.0 Units or greater....... Positive Performed by [facility], [address] [place] [id number] [phone] www.[employer], Shruthi Santiago MD, Lab. Director Specimen Anatomical Collection Method Collection Time Receive d Time (Source) Location / / Volume Laterality 02/05/2010 9:45 AM 0 9:32 CDT AM CDT Gifty Bernal MD LAB - BLOOD ORDERABLES Performing Organization Address [facility] Phon e Number MISYS (ABNORMAL) TSH with free T4 reflex (02/05/2010 9:45 AM CDT) athologist Signature TSH 6.27 (H) 0.4 - 5.0 MISYS mU/L Specimen Anatomical Collection Method Collection Time Receive d Time (Source) Location / / Volume Laterality 02/05/2010 9:45 AM 0 9:32 CDT AM CDT Gifty Bernal MD LAB - BLOOD ORDERABLES Performing Organization Address [facility] Phon e Number MISYS Hepatitis Be antigen (02/05/2010 9:45 AM CDT) athologist Signature Hepatitis Be Negative MISYS Agn Comment: Reference range: Negative (Note) Negative Performed by [facility], [address] [place] [id number] [phone] www.[employer], Srhuthi Santiago MD, Lab. Director Specimen Anatomical Collection Method Collection Time Receive d Time (Source) Location / / Volume Laterality 02/05/2010 9:45 AM 0 9:32 CDT AM CDT Gifty Bernal MD LAB - BLOOD ORDERABLES Performing Organization Address [facility] Phon e Number MISYS Hepatitis B surface antigen (02/05/2010 9:45 AM CDT) P athologist Signature Hep B Surface Negative NEG MISYS Agn Specimen Anatomical Collection Method Collection Time Receive d Time (Source) Location / / Volume Laterality 02/05/2010 9:45 AM 0 9:32 CDT AM CDT Gifty Bernal MD LAB - BLOOD ORDERABLES Performing Organization Address City/[facility] Code Phon e Number MISYS Hepatitis C antibody (02/05/2010 9:45 AM CDT) P athologist Signature Hepatitis C Negative NEG MISYS Antibody Specimen Anatomical Collection Method Collection Time Receive d Time (Source) Location / / Volume Laterality 02/05/2010 9:45 AM 0 9:32 CDT AM CDT Gifty Bernal MD LAB - BLOOD ORDERABLES Performing Organization Address [facility] Phon e Number MISYS documented in this encounter Visit Diagnoses Not on filedocumented in this encounter
--- OUTSIDE RECORDS SUMMARY | 2022-05-09 11:10 | XMS_ITS | Encounter Summary ---
:1955 Author Organization [place] Address [facility] 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 First Floor, Clinic [address] [place] [id number] RE: Becki Thomas : 1955 RODOLFO: 02/03/2010 CONSULTATION CONSULTATION REQUESTED BY: Julius Ribera M.D. HISTORY OF PRESENT ILLNESS: This is a 55-year-old who is seen in Allergy Clinic for asthma and some voice changes. She says that she at times totally loses her voice but does not have any morning hoarseness. She does have infrequent heartburn about once a week which is very trenchant. Her main GI complaint is that for quite some time now she has very frequent food sticking at the suprasternal notch. It usually occurs with solid food and will usually pass with repeated swallows. She says it is often associated with flare ups of angioedema involving her hands. PAST MEDICAL HISTORY: Medical: Hypertension, angioedema, depression, sleep apnea, urticaria, and VILLAREAL. Her last ALT was significantly elevated in February, and over the past two years, she has gained a considerable amount of weight. Surgery: None. MEDICATIONS: Per nurse's note. ALLERGIES: Per nurse's note. FAMILY HISTORY: Family history reviewed and noncontributory. 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 Does not smoke or use alcohol. REVIEW OF SYMPTOMS: ENT: Chronic rhinitis. Respiratory: PMH. GI: HPI. Musculoskeletal: Frequent arthralgias of the hands, feet, knees, and hips. Psych: PMH. A complete review of systems was otherwise negative. PHYSICAL EXAMINATION: Vital signs: See nurse's note. General: Well-developed well-nourished. HEENT: Normal. Neck: Normal. Chest: Clear. Cardiovascular: Regular rate and rhythm. Abdomen: No tenderness, masses, or organomegaly. Extremities: No cyanosis, clubbing, or edema. Skin: Normal. Psych: Normal. IMPRESSION: Dysphagia, may well be secondary to a Schatzki ring. RECOMMENDATIONS: Upper endoscopy, refer to Hepatology for her VILLAREAL and to Rheumatology for her arthritis. Harpal Keith M.D. Gastroenterology Division [facility] RS:[id number] cc: Julius Ribera MD [facility] [id number] Electronically signed by:Harpal Keith M.D. Feb 09 2010 9:17AM SUPERVISOR PAINTING SHIPYARD Reviewed by:Julius Ribera M.D. Feb 15 2010 2:47PM SUPERVISOR PAINTING SHIPYARD documented in this encounter Plan of Treatment Upcoming Encounters Date Type Specialty Care Team Description 05/19/2022 Office Visit ENT Dima Hidalgo M D [address] [facility] [place], [place] [address] (Wo rk) 08/02/2022 Office Visit Neurology Yair Campos MD [address] [facility] [place], [place] [phone] (Wo rk) documented as of this encounter Visit Diagnoses Not on filedocumented in this encounter
--- OUTSIDE RECORDS SUMMARY | 2022-05-09 11:11 | XMS_ITS | Encounter Summary ---
:1955 Author Organization [place] Address [facility] 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 Continues to have SOB with exercise and concerned about this. Also concerned about weight again. Do you have any other appointments, tests or procedures within the [place] system for this same day? No. Pain Eval Current history of pain associated with this visit is denied. Vital Signs Recorded by [email or web address] on 30 Jul 2008 02:35 PM BP:123/60, HR: 80 b/min, Height: 62 in, Weight: 211 lb, BMI: 38.6 kg/m2. Allergies Cipro TABS Darvocet-N 50 TABS Vicodin TABS. Current Meds Protonix 40 MG Tablet Delayed Release;TAKE 1 TABLET DAILY.; RPT Albuterol 90 MCG/ACT AERS;INHALE 1-2 PUFFS EVERY 4-6 HOURS NEEDED AND DIRECTED.; RPT Provigil 200 MG Tablet;TAKE 1 AND 1/2 TABLETS DAILY.; RPT EpiPen 2-Db 0.3 MG/0.3ML (1:1000) Device;INJECT 0.3ML INTRAMUSCULARLY DIRECTED.; Rx Lunesta 2 MG Tablet;TAKE 1 TABLET AT BEDTIME NEEDED.; RPT Requip 0.5 MG Tablet;TAKE 1 TABLET BEDTIME; RPT Glotjexd-YVI-9 0.1 MG/24HR Patch Weekly;APPLY 1 PATCH WEEKLY DIRECTED.; RPT Cetirizine HCl 10 MG Tablet;TAKE 1 TABLET EVERY 12 HOURS for hives and itchiness; Rx Advair Diskus 250-50 MCG/DOSE Miscellaneous;USE ONE INHALATION TWICE A DAY; RPT AAA-MED RECONCILE;; RPT. Signature Electronically Signed By: Zoe Powell R.N.; 07/30/2008 2:38 PM SPIN TABLE OPERATOR; Author. documented in this encounter Plan of Treatment Upcoming Encounters Date Type Specialty Care Team Description 05/19/2022 Office Visit ENT Dima Hidalgo M D [address] [facility] Saroj [place], [place] [address] (Sarah pino) 08/02/2022 Office Visit Neurology Yair Campos MD [address] [place] [address] (Sarah pino) documented as of this encounter Visit Diagnoses Not on filedocumented in this encounter
--- OUTSIDE RECORDS SUMMARY | 2022-05-09 11:11 | XMS_ITS | Encounter Summary ---
:1955 Author Organization [place] Address [facility] 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 Assessment Pt is scheduled to have a colposcopy done today. She reports she woke up this morning and she had her period. She states that her period is fairly heavy, she is changing a pad/tampon approx every 3 hrs. She states that she gets her periods monthly and they last for approx 4 days. Pt would prefer to re-schedule appt. Plan Re-scheduled appt for 02/06/08, pt will call back with any questions or concerns. Coun/Edu Caller verbalized understanding of plan Caller agrees with advice given. Signature Electronically Signed By: Tracy Nuno R.N.; 01/25/2008 10:19 AM METAL FURNITURE ASSEMBLY SUPERVISOR; Author. documented in this encounter Plan of Treatment Upcoming Encounters Date Type Specialty Care Team Description 05/19/2022 Office Visit ENT Dima Hidalgo M D [address] [facility] [address] [place], [place] [address] (Wo rk) 08/02/2022 Office Visit Neurology Yair Campos MD [address] [place] [address] (Wo rk) documented as of this encounter Visit Diagnoses Not on filedocumented in this encounter
--- OUTSIDE RECORDS SUMMARY | 2022-05-09 11:11 | XMS_ITS | Encounter Summary ---
:1955 Author Organization [place] Address [facility] 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 Vital Signs Recorded by Prabhu Nichols on 22 Nov 2007 04:08 PM BP:126/80, LUE, Sitting, HR: 81 b/min, L Radial, Regular, Weight: 206.4 lb, Pain Scale: 3. Allergies Cipro TABS Darvocet-N 50 TABS Vicodin TABS. Latex Allergy: No. Current Meds Protonix 40 MG Tablet Delayed Release;TAKE 1 TABLET DAILY.; RPT Albuterol 90 MCG/ACT Aerosol Solution;INHALE 1-2 PUFFS EVERY 4-6 HOURS NEEDED AND DIRECTED.; RPT Provigil 200 MG Tablet;TAKE 1 AND 1/2 TABLETS DAILY.; RPT EpiPen 2-Db 0.3 MG/0.3ML (1:1000) Device;INJECT 0.3ML INTRAMUSCULARLY DIRECTED.; Rx Zyrtec 10 MG TABS;TAKE 1 TABLET TWICE DAILY; Rx Lunesta 2 MG Tablet;TAKE 1 TABLET AT BEDTIME NEEDED.; RPT Requip 0.5 MG Tablet;TAKE 1 TABLET BEDTIME; RPT Djejvfqf-FBP-7 0.1 MG/24HR Patch Weekly;APPLY 1 PATCH WEEKLY DIRECTED.; RPT Cymbalta 60 MG Capsules;takes 1.5 tabs daily; Rx Ranitidine HCl 150 MG Capsule;TAKE 1 CAPSULE EVERY 12 HOURS DAILY.; Rx Cetirizine HCl 10 MG Tablet;TAKE 1 TABLET EVERY 12 HOURS for hives and itchiness; Rx Doxepin HCl 10 MG Capsule;TAKE 1 CAPSULE 3 TIMES DAILY PRN AT BEDTIME may take 2-3 tablets as needed; Rx Singulair 10 MG Tablet;TAKE 1 TABLET DAILY.; Rx Advair Diskus 100-50 MCG/DOSE Miscellaneous;USE ONE INHALATION TWICE A DAY; Rx AAA-MED RECONCILE;Up to Date; RPT. Pain Assessment Current history of pain associated with this visit is as follows: Location: Muscle Joints Quality: Dull Severity: 3 (Pain scale 1-10, with 10 being the worst). Smoking Assessment No secondhand cigarette smoke exposure. No tobacco use. Performance Status GRADE : KARNOFSKY SCALE : PERFORMANCE 1 : 70 & 80 : Restricted in Physically Strenuous Activities/Ambulatory Initial: AB Date: 10/23/2007. Therapy Nursing care seven. Signature Electronically Signed By: Prabhu Nichols CMA; 11/22/2007 4:44 PM ECOMMERCE MERCHANDISING MANAGER. documented in this encounter Plan of Treatment Upcoming Encounters Date Type Specialty Care Team Description 05/19/2022 Office Visit ENT Dima Hidalgo M D [address] [facility] [address] [place], [place] [address] (Sarah pino) 08/02/2022 Office Visit Neurology Yair Campos MD [address] [place] [address] [place] [address] (Sarah pino) documented as of this encounter Visit Diagnoses Not on filedocumented in this encounter
--- OUTSIDE RECORDS SUMMARY | 2022-05-09 11:11 | XMS_ITS | Encounter Summary ---
:1955 Author Organization [place] Address [facility] 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 documented in this encounter Results EKG 12 LEAD (02/20/2009 8:31 AM CDT) [facility] Method Time Signature Ventricular Rate 62 BPM RADIOLOGY RESULTS Atrial Rate 62 BPM RADIOLOGY RESULTS [place] Interval 142 ms RADIOLOGY RESULTS QRS Duration 82 ms RADIOLOGY RESULTS QT 412 ms RADIOLOGY RESULTS QTc 418 ms RADIOLOGY RESULTS P [place] 32 degrees RADIOLOGY RESULTS R AXIS 12 degrees RADIOLOGY RESULTS T [place] 31 degrees RADIOLOGY RESULTS Interpretation Sinus rhythm RADIOLOGY ECG Normal ECG RESULTS No previous ECGs available Specimen Anatomical Collection Method Collection Time Receive d Time (Source) Location / / Volume Laterality 02/20/2009 8:31 AM 9 CDT 10:48 PM CDT Transcripton Interface ECG ORDERABLES Performing Organization Address City/State/ZIP Code Phon e Number RADIOLOGY RESULTS documented in this encounter Visit Diagnoses Not on filedocumented in this encounter Care Teams Stock Handler Relationship Specialty Start Date End Date Verified, Pcp Unknown PCP - General 01/06/11 2 documented as of this encounter
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
--- OUTSIDE RECORDS SUMMARY | 2022-05-09 11:11 | XMS_ITS | Encounter Summary ---
:1955 Author Organization [place] Address [address] [facility] 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 Do you have any other appointments, tests or procedures within the [facility] system for this same day? No. Pain Eval Current history of pain associated with this visit that disturbs sleep quality is as follows: Location: muscles and joints Quality: ache Severity: 5 (Pain scale 1-10, with 10 being the worst) Duration: constant Timing: unknown Context: disturbs sleep Modifying factors: ibuprofen . Personal Hx Behavioral history: No tobacco use. Home environment: No secondhand tobacco smoke in home. Vital Signs Recorded by Brenden Corey on 14 Apr 2009 03:03 PM BP:119/83, RUE, Sitting, HR: 98 b/min, Height: 62.5 in, Weight: 221.4 lb, BMI: 39.8 kg/m2, O2 Sat: 96 (%SpO2), RA. Allergies Cipro [...] TABLET BEDTIME; RPT Advair Diskus 500-50 MCG/DOSE Miscellaneous;USE ONE INHALATION TWICE A DAY; Rx AAA-MED RECONCILE;; RPT Ibuprofen 200 MG Tablet;TAKE 1 TABLET 3 TIMES DAILY NEEDED.; RPT. Med list offered and patient declined. Signature Signed By: Brenden Corey L.P.N.; 04/14/2009 3:07 PM SCALEHOUSE ATTENDANT. documented in this encounter Plan of Treatment Upcoming Encounters Date Type Specialty Care Team Description 05/19/2022 Office Visit ENT Dima [facility]idalgo M D [address] [facility] [place], [place] [address] (Wo rk) 08/02/2022 Office Visit Neurology Yair Campos MD [address] [place] [phone] (Sarah pino) documented as of this encounter Visit Diagnoses Not on filedocumented in this encounter
--- OUTSIDE RECORDS SUMMARY | 2022-05-09 11:11 | XMS_ITS | Encounter Summary ---
:1955 Author Organization [place] Address [facility] 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 Vital Signs Recorded by marv on 27 Mar 2008 03:00 PM BP:144/90, LUE, Sitting, Height: 62 in, Weight: 207 lb, BMI: 37.9 kg/m2. Allergies Latex Allergy: No. Cipro TABS Darvocet-N 50 TABS Vicodin TABS. [...] 0.5 MG Tablet;TAKE 1 TABLET BEDTIME; RPT [id number] 0.1 MG/24HR Patch Weekly;APPLY 1 PATCH WEEKLY [...] MG Tablet;TAKE 1 TABLET DAILY.; Rx AAA-MED RECONCILE;Up to Date; RPT Advair Diskus 250-50 MCG/DOSE Miscellaneous;USE 1 INHALATION EVERY 12 HOURS DAILY.; Rx Omeprazole 20 MG Capsule Delayed Release;INHALE 1 CAPSULE DAILY dispense 30; Rx. Pain Assessment Current history of pain associated with this visit is as follows: Location: mid abdomen Quality: pressure Severity: 3 (Pain scale 1-10, with 10 being the worst) Duration: intermittent-more on than off Timing: one month Context: Modifying factors: none Associated signs/symptoms: Smoking Assessment No secondhand cigarette smoke exposure. No tobacco use. Performance Status GRADE : KARNOFSKY SCALE : PERFORMANCE 0 : 90 & 100 : Fully Active Initial: lt breathing concerns Date: 03/27/2008. Signature Electronically Signed By: Joanne Fuller L.P.N.; 03/27/2008 3:02 PM FARMWORKER RICE. documented in this encounter Plan of Treatment Upcoming Encounters Date Type Specialty Care Team Description 05/19/2022 Office Visit ENT [facility]idal[facility] M D [address] [facility] [place], [place] [address] (Sarah pino) 08/02/2022 Office Visit Neurology Yair Campos MD [address] [facility] [place] [address] (Sarah pino) documented as of this encounter Visit Diagnoses Not on filedocumented in this encounter
--- OUTSIDE RECORDS SUMMARY | 2022-05-09 11:11 | XMS_ITS | Encounter Summary ---
:1955 Author Organization [place] Address [address] 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 documented in this encounter Results (ABNORMAL) Comprehensive metabolic panel (02/18/2009 3:03 PM CDT) P athologist Signature Sodium 139 133 - 144 MISYS mmol/L Potassium 4.2 3.4 - 5.3 MISYS mmol/L Chloride 104 94 - 109 MISYS mmol/L Carbon Dioxide 27 20 - 32 MISYS mmol/L Glucose 102 (H) 60 - 99 MISYS mg/dL Comment: Non Fasting Urea Nitrogen 10 7 - 30 mg/dL MISYS Creatinine 0.67 0.52 - 1.04 mg/dL MISYS Comment: New IDMS-traceable calibration beginning 11/15/07 GFR Estimate >90 >60 mL/min/1.7m2 MISYS GFR Estimate If Black >90 >60 mL/min/1.7m2 M ISYS Calcium 9.3 8.5 - 10.4 mg/dL MISYS AST 65 (H) 0 - 45 U/L MISYS Protein Total 7.8 6.8 - 8.8 g/dL MISYS Anion Gap 8 6 - 17 mmol/L MISYS Albumin 4.1 3.9 - 5.1 g/dL MISYS ALT 104 (H) 0 - 50 U/L MISYS Alkaline Phosphatase 85 40 - 150 U/L MISYS Bilirubin Total 0.5 0.2 - 1.3 mg/dL MISYS Specimen Anatomical Collection Method Collection Time Receive d Time (Source) Location / / Volume Laterality 02/18/2009 3:03 PM 9 2:59 CDT PM CDT Julius Ribera MD LAB - BLOOD ORDERABLES Performing Organization Address City/State/ZIP Code Phon e Number MISYS documented in this encounter Visit Diagnoses Not on filedocumented in this encounter
--- OUTSIDE RECORDS SUMMARY | 2022-05-09 11:11 | XMS_ITS | Encounter Summary ---
:1955 Author Organization [place] Address [facility] 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 documented in this encounter Results Pulmonary function test procedure (02/18/2009 2:05 AM CDT) [facility] Method Time Signature Pulmonary RADIOLOGY Function Test Name: ? BECKI MOORE ? ID: ?[id number] RESULTS Doctor: ?ISABELLA, MAL HECTOR ? Height: ? 61.50 in ? Age: ?54 Tech: ? NASI, MARY ?Weight: ? 215.00 lbs ?? Sex: ?Female Date: ?02/18/2009 ? Time: ??02:05:27 PM ? Race: ? <Unspecified> Secondary ID: PT ID: ? [id number] ?Doctor ID: Change Status: Diagnosis: ?ASTHMA Dyspnea: Cough: Wheeze: Yrs Quit: ? Pks/Day: Yrs Smk: ?Tbco Pr od: Post-Test Comments: ?? Good efforts ? PRE-BRONCH ?POST-BRONCH ? Actual ?Pred ?%Pred ??Actual ?? %Pred ? %Chng SPIROMETRY FVC (L) ?2.41 ?3.15 ? 77 FEV1 (L) ? 1.90 ?2.48 ? 77 FEV1/FVC (%) ? 79 ?79 ?100 FEF 25% (L/sec) ?6.24 FEF 50% (L/sec) ?2.45 ?3.80 ? 65 FEF 75% (L/sec) ?0.51 ?1.35 ? 38 FEF 25-75% (L/sec) ? 1.72 ?2.46 ? 70 FEF Max (L/sec) ?7.05 ?6.21 ?1 13 FIVC (L) ? 2.21 FIF 50% (L/sec) ?4.07 ?3.80 ?1 07 FIF Max (L/sec) ?4.36 ?4.23 ?1 03 LUNG VOLUMES SVC (L) ?2.49 ?3.15 ? 79 IC (L) ? 2.34 ?2.07 ?113 ERV (L) ?0.16 ?1.08 ? 15 TGV (L) ?1.58 ?2.61 ? 60 RV (Pleth) (L) ? 1.42 ?1.74 ? 82 TLC (Pleth) (L) ?3.92 ?4.68 ? 84 RV/TLC (Pleth) (%) ? 36 ?37 ? 98 DIFFUSION DLCOunc ? 17.34 ?? 21.27 ? 82 DL/VA ?5.22 ?4.54 ?115 VA (L) ? 3.32 ?4.68 ? 71 The FEV1, FVC and CZC91-08% are reduced but the FEV1/FVC rat io is normal. ??The inspiratory flow rates are within normal limits. ??The diffusing capacity is normal. ??However, the diffusing capacity was no t corrected for the patient's hemoglobin. Minimal airway obstruction is present suggesting small airwa y disease. IMPRESSION:(The PFT standard for spirometry has been changed as of (12/13/05) to NHANESIII, so the % predicted values might not correlate to prior PFTs.) Minimal Airflow Obstruction This preliminary report should not be used clinically unless reviewed and signed by a physician. ADRIANNA GALEANA Specimen Anatomical Collection Method Collection Time Receive d Time (Source) Location / / Volume Laterality 02/18/2009 2:05 AM 9 3:08 CDT PM CDT Transcripton Interface MD PFT ORDERABLES Performing Organization Address City/State/ZIP Code Phon e Number RADIOLOGY RESULTS documented in this encounter Visit Diagnoses Not on filedocumented in this encounter
--- OUTSIDE RECORDS SUMMARY | 2022-05-09 11:11 | XMS_ITS | Encounter Summary ---
:1955 Author Organization [place] Address [address] [facility] [place] [address] Care Team Providers Name Role Phone Unavailable Primary Care Provider Unavailable Encounter Details Date Type Department Care Team Description 04/01/[address] [facility] Ni Kimbrough NP [address] [phone] (Wo rk) Social History Tobacco Use Types Packs/Day Years Used Date Smoking Tobacco: Never Assessed Sex Assigned at Date Recorded Female 08/17/2018 10:39 PM SLITTER PROCESSED FILM documented as of this encounter Plan of Treatment Upcoming Encounters Date Type Specialty Care Team Description 05/19/2022 Office Visit ENT Dima Hidalgo M D [address] [place], [place] [address] (Wo rk) 08/02/2022 Office Visit Neurology Yair Campos MD [address] [facility] [place] [address] (Wo rk) documented as of this encounter Procedures Procedure Name Priority Date/Time Associated Diagnosis Comme nts BL GAS VENOUS AND STAT 04/01/2009 8:00 AM Resu lts for this O2HB PANEL CDT procedure are i n the results section. OXYHEMOGLOBIN, STAT 04/01/2009 8:00 AM Results for this VENOUS CDT procedure are i n the results section. documented in this encounter Results (ABNORMAL) BL GAS VENOUS AND O2HB PANEL (04/01/2009 8:00 AM CDT) P athologist Signature Ph Venous 7.41 7.32 - MISYS 7.43 pH PCO2 Venous 39 (L) 40 - 50 mm MISYS Hg PO2 Venous 58 (H) 25 - 47 mm MISYS Hg Bicarbonate 24 21 - 28 MISYS Venous mmol/L FIO2 21 MISYS Specimen Anatomical Collection Method Collection Time Receive d Time (Source) Location / / Volume Laterality 04/01/2009 8:00 AM 9 8:13 CDT AM CDT Joanne Kimbrough NP LAB - BLOOD ORDERABLES Performing Organization Address City/[facility]/ZIP Code Phon e Number MISYS Oxyhemoglobin venous (04/01/2009 8:00 AM CDT) Analysis Performed At Patho logist Time Signature Oxyhemoglobin 89 % MISYS Venous Specimen Anatomical Collection Method Collection Time Receive d Time (Source) Location / / Volume Laterality 04/01/2009 8:00 AM 9 8:32 CDT AM CDT Joanne Kimbrough NP LAB - BLOOD ORDERABLES Performing Organization Address City/State/ZIP Code Phon e Number MISYS documented in this encounter Visit Diagnoses Not on filedocumented in this encounter
--- OUTSIDE RECORDS SUMMARY | 2022-05-09 11:11 | XMS_ITS | Encounter Summary ---
:1955 Author Organization [place] Address [facility]0 [facility] 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 [address] Phone:\[phone] Fax:\[phone] CHIEF COMPLAINT: Colposcopy. HISTORY OF PRESENT ILLNESS: The patient is a 53-year-old female who presents today for colposcopy. She underwent a Pap smear previously but showed ASCUS with high-risk HPV. She does have a history of two abnormal Paps and colposcopies that were normal in 2004 and 2005. She has not had any Pap smears until this current one. She does have a new partner prior to her 2005 Pap smear. She is unsure if he is monogamous and she did hae previous STD testing. She has no other complaints today. OBJECTIVE: The patient was placed in the dorsal lithotomy position and a medium Grave's speculum wasinserted. The cervix was easily visualized. There were no gross lesions apparent. Acetic acid was then applied to the cervix and again no acetowhite changes were seen. The colposcopy, however, was unsatisfactory and therefore an ECC was obtained. Following this the speculum was removed. IMPRESSION: A 53-year-old female with ASCUS, high-risk HPV Pap and normal colposcopy. PLAN: 1. ECC was sent and she will be notified of these results via telephone call. She should followup with a repeat Pap in six months as long as the ECC is within normal limits. I partcipated in the procedure and agree wiht the resident's note and plan of care. Rula Duncan MD [facility] [address] [place] [address] [address] [place] [address] AND [facility] [address] [facility] [address] [place] [address] Dictated by Yamile Zimmerman M.D. Resident JV:yfn Electronically signed by:RULA DUNCAN M.D. Mar 31 2008 9:53PM FOOD GENERAL MANAGER documented in this encounter Plan of Treatment Upcoming Encounters Date Type Specialty Care Team Description 05/19/2022 Office Visit ENT Dima Hidalgo M D [address] [facility] [address] [place], [place] [address] (Sarah pino) 08/02/2022 Office Visit Neurology Yair Campos MD [address] [place] [phone] (Sarah pino) documented as of this encounter Visit Diagnoses Not on filedocumented in this encounter
--- OUTSIDE RECORDS SUMMARY | 2022-05-09 11:11 | XMS_ITS | Encounter Summary ---
:1955 Author Organization [place] Address [facility] [place] [address] Care Team Providers Name Role Phone Unavailable Primary Care Provider Unavailable Encounter Details Date Type Department Care Team Description 11/22/2007 Office Visit-[facility] INTERFACE [facility] DEPT Anoop Foreman MD [address] [place], [place] [address] (Wo rk) Social History Tobacco Use Types Packs/Day Years Used Date Smoking Tobacco: Never Assessed Sex Assigned at Date Recorded Female 08/17/2018 10:39 PM HEAVY LIFT RIGGER documented as of this encounter Progress Notes Micheline Foreman - 11/22/2007 4:00 PM CDT Bank Clerk: Micheline Foreman Status: Final - Signature Encounter: 22 Nov 2007 Type: [facility] BUSSERS FOOD RUNNERS Visit Department of Obstetrics and Gynecology and Women???s Health OUTPATIENT VISIT NOTE [facility] First Floor, Clinic 1C [address] [place] [address] Phone:\[phone] Fax:\[phone] SUBJECTIVE: Ms. Thomas is a 52-year-old para 1-0-0-1 who presents today for discussion of multiple issues. First on the patient's mind is an increase in weight. Patient has had significant hives, as well as allergic complaints, and [facility] and [facility] reactions. She has been on a steroid burst for the last six weeks, which has been tapered gradually, and has gained significant weight during this time. Patient wishes to discuss weightloss techniques. The patient also wishes to discuss safe-sex practices, as she is in a monogamous relationship on ; however, she is concerned that her partner may be having relations with other women. Patient was tested for sexually transmitted infections in May and was found to be negative for them. Patient also, after approximately 30 minutes of discussion, brought up the fact that she had an abnormal Pap smear, for which she was told to follow up; however, she did not. Patient indeed had an ASCUS Pap smear on May 22, 2007, which requires colposcopy, and this will need to be performed. OBJECTIVE: Her blood pressure today is 126/80. Heart rate is 81. Weight is 206.4 pounds. Generally, she is a well-appearing, pleasant, slightly obese female in no acute distress. No further exam was performed. ASSESSMENT: A 52-year-old para 1-0-0-1 with: 1. Weight gain, likely secondary to steroid use. I recommended that the patient have an intake of 1,200 calories daily in an attempt to lose weight. I also recommended daily exercise and told the patient that she would likely lose weight as she is tapered off the prednisone. Discussed with the patient that she is to be tested if she is concerned for any form of vaginal infection, as the patient's partner may not be having relations with only her. I also discussed with patient that this may not be healthy for her and that she should confront her partner as she is seriouslyconcerned about this issue. Due to the extensive length of our conversation regarding weight loss and sexually transmitted infections, we will have the patient return for colposcopy on November 29, 2007. Patient is satisfied with thisplan and will return next week. Eduin Tinoco MD Resident Continuity Clinic This patient was seen by Dr. Tinoco under my supervision and I agree with his dictation. Micheline Foreman MD, [facility] Egg Separator [address] [place] [address] AND [facility] Clinic [address] [place], [place] [phone] Dictated by Eduin Tinoco MD Resident CT:garcia Electronically signed by:MICHELINE FOREMAN M.D.,FACOG Dec 06 2007 1:56PM HEAVY LIFT RIGGER documented in this encounter Plan of Treatment Upcoming Encounters Date Type Specialty Care Team Description 05/19/2022 Office Visit ENT Dima Hidalgo M D [address] [facility] Saroj [place], [place] [address] (Wo rk) 08/02/2022 Office Visit Neurology Yair Campos MD [address] [place] [address] [place] [address] (Wo rk) documented as of this encounter Visit Diagnoses Not on filedocumented in this encounter
--- OUTSIDE RECORDS SUMMARY | 2022-05-09 11:11 | XMS_ITS | Encounter Summary ---
:1955 Author Organization [place] Address [address] [facility] [place] [address] Care Team Providers Name Role Phone Unavailable Primary Care Provider Unavailable Encounter Details Date Type Department Care Team Description 04/14/2009 Historic Results [facility] Ni Kimbrough NP [address] [phone] (Wo rk) Social History Tobacco Use Types Packs/Day Years Used Date Smoking Tobacco: Never Assessed Sex Assigned at Date Recorded Female 08/17/2018 10:39 PM WOOD SETTER documented as of this encounter Plan of Treatment Upcoming Encounters Date Type Specialty Care Team Description 05/19/2022 Office Visit ENT Dima Hidalgo M D [address] [place], [place] [address] (Wo rk) 08/02/2022 Office Visit Neurology Yair Campos MD [address] [place], [place] [address] (Wo rk) documented as of this encounter Procedures Procedure Name Priority Date/Time Associated Diagnosis Comme nts FERRITIN Routine 04/14/2009 4:41 PM Results f or this CDT procedure are i n the results section . documented in this encounter Results Ferritin (04/14/2009 4:41 PM CDT) athologist Signature Ferritin 111 10 - 300 MISYS ng/mL Specimen Anatomical Collection Method Collection Time Receive d Time (Source) Location / / Volume Laterality 04/14/2009 4:41 PM 9 4:18 CDT PM CDT Joanne Kimbrough NP LAB - BLOOD ORDERABLES Performing Organization Address City/State/[facility] Code Phon e Number MISYS documented in this encounter Visit Diagnoses Not on filedocumented in this encounter
--- OUTSIDE RECORDS SUMMARY | 2022-05-09 11:11 | XMS_ITS | Encounter Summary ---
:1955 Author Organization [place] Address [address] [facility] 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 Do you have any other appointments, tests or procedures within the [facility] system for this same day? No. Pain Eval Current history of pain associated with this visit that disturbs sleep quality is as follows: Location: all over joint pain Timing: occasional Context: disturbs sleep Modifying factors: meds Associated signs/symptoms: none. Personal Hx Behavioral history: No tobacco use. Home environment: No secondhand tobacco smoke in home. Vital Signs Recorded by hunter on 10 Mar 2009 11:24 AM BP:127/77, RUE, Sitting, HR: 77 b/min, Height: 62.5 in, Weight: 219.2 lb, BMI: 39.5 kg/m2, O2 Sat: 96 (%SpO2), RA. Allergies Cipro TABS Darvocet-N 50 TABS Vicodin TABS. Current Meds EpiPen 2-Db 0.3 MG/0.3ML (1:1000) Device;INJECT 0.3ML INTRAMUSCULARLY DIRECTED.; Rx Advair Diskus 500-50 MCG/DOSE Miscellaneous;USE ONE INHALATION TWICE A DAY; Rx AAA-MED RECONCILE;; RPT Albuterol 90 MCG/ACT AERS;INHALE 1-2 PUFFS EVERY 4-6 HOURS NEEDED AND DIRECTED.; RPT Provigil 200 MG Tablet;TAKE 1 AND 1/2 TABLETS DAILY.; RPT Lunesta 2 MG Tablet;TAKE 1 TABLET AT BEDTIME NEEDED.; RPT Requip 0.5 MG Tablet;TAKE 1 TABLET BEDTIME; RPT. Med list offered and patient declined. Notes Neck Circumference: 16.5. Signature Signed By: Ceci Steel LPN; 03/10/2009 11:27 AM LITHOGRAPHIC PRESS FEEDER. documented in this encounter Plan of Treatment Upcoming Encounters Date Type Specialty Care Team Description 05/19/2022 Office Visit ENT Dima Hidalgo M D [address] [facility] [place], [place] [address] (Sarah pino) 08/02/2022 Office Visit Neurology Yair Campos MD [address] [place] [phone] (Sarah pino) documented as of this encounter Visit Diagnoses Not on filedocumented in this encounter
--- OUTSIDE RECORDS SUMMARY | 2022-05-09 11:11 | XMS_ITS | Encounter Summary ---
:1955 Author Organization [place] Address [facility] 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 [facility] [place], [place] [address] (Wo rk) 08/02/2022 Office Visit Neurology Yair Campos MD [address] [facility] [place], [place] [address] (Wo rk) documented as of this encounter Procedures Procedure Name Priority Date/Time Associated Diagnosis Comme nts PFT GENERAL LAB Routine 12/27/2007 3:10 AM Result s for this TESTING CDT procedure are i n the results section. documented in this encounter Results Pulmonary function test procedure (12/27/2007 3:10 AM CDT) Component Value Ref Test Analysis Performed At [facility] Method Time Signature Pulmonary RADIOLOGY Function Test Name: ? BECKI MOORE ? ID: ?[id number] RESULTS Doctor: ?NICK PAUL ? Height: ? 62.00 in ? Age: ?52 Tech: ? JAIRO BONDS ? Weight: ? 208.00 lbs ?? Sex: ?Female Date: ?12/27/2007 ?Time: ??03:10:24 PM ? Race: ? <Unspecified> Secondary ID: PT ID: ? [id number] ?Doctor ID: Change Status: Diagnosis: ?ASTHMA; ALLERGIES Dyspnea: ?After any exertion Cough: ?Non-Productive Wheeze: ? Frequent Yrs Quit: ? Pks/Day: Yrs Smk: ?Tbco Pr od: Post-Test Comments: ?? GOOD EFFORT; ALBUTEROL (X4) BD ? PRE-BRONCH ?POST-BRONCH ? Actual ?Pred ?%Pred ??Actual ?? %Pred ? %Chng SPIROMETRY FVC (L) ?2.22 ?3.26 ? 68 ?2.34 ?72 ? 5 FEV1 (L) ? 1.76 ?2.57 ? 69 ?1.90 ?74 ? 8 FEV1/FVC (%) ? 79 ?80 ? 99 ?82 ? 102 ? 3 FEF 25% (L/sec) ?6.30 ?4.96 ?127 ?7.33 ? 148 ?16 FEF 50% (L/sec) ?2.39 ?3.86 ? 62 ?2.99 ?78 ?25 FEF 75% (L/sec) ?0.44 ?1.39 ? 32 ?0.93 ?67 ? 110 FEF 25-75% (L/sec) ? 1.64 ?2.57 ? 64 ?2.35 ?92 ?43 FEF Max (L/sec) ?6.86 ?6.36 ?108 ?7.50 ? 118 ? 9 FIVC (L) ? 2.25 ? 2.31 ? 3 FIF 50% (L/sec) ?3.24 ?3.82 ? 85 ?3.64 ?95 ?12 FIF Max (L/sec) ?3.92 ?4.23 ? 93 ?4.00 ?95 ? 2 LUNG VOLUMES SVC (L) ?2.40 ?3.26 ? 73 IC (L) ? 2.15 ?2.10 ?102 ERV (L) ?0.25 ?1.16 ? 21 TGV (L) ?1.72 ?2.65 ? 65 RV (Pleth) (L) ? 1.48 ?1.73 ? 85 TLC (Pleth) (L) ?3.87 ?4.75 ? 82 RV/TLC (Pleth) (%) ? 38 ?36 ?1 06 DIFFUSION DLCOunc ? 14.61 ?? 21.70 ? 67 DL/VA ?4.63 ?4.57 ?101 VA (L) ? 3.16 ?4.75 ? 66 The FEV1, FVC and YCI18-53% are reduced but the FEV1/FVC rat io is normal. ??The inspiratory flow rates are within normal limit s. ??Following administration of bronchodilators, there is no significant r esponse. ??The reduced diffusing capacity indicates a mild loss of function al alveolar capillary surface. ??However, the diffusing capacity was not corrected for the patient's hemoglobin. Although there is airway obstruction and a diffusion defect suggesting emphysema, the absence of overinflation is inconsistent with that diagnosis. IMPRESSION:(The PFT standard for spirometry has been changed as of (12/13/05) to NHANESIII, so the % predicted values might not correlate to prior PFTs.) Minimal Airflow Obstruction Mild Diffusion Defect This preliminary report should not be used clinically unless reviewed and signed by a physician. NICK NUGENT Specimen Anatomical Collection Method Collection Time Receive d Time (Source) Location / / Volume Laterality 12/27/2007 3:10 AM 8 4:02 CDT PM CDT Transcripton Interface PFT ORDERABLES Performing Organization Address City/State/ZIP Code Phon e Number RADIOLOGY RESULTS documented in this encounter Visit Diagnoses Not on filedocumented in this encounter
--- OUTSIDE RECORDS SUMMARY | 2022-05-09 11:11 | XMS_ITS | Encounter Summary ---
:1955 Author Organization [place] Address [facility] 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 documented in this encounter Results Pulmonary function test procedure (01/11/2010 1:47 AM CDT) [facility] Method Time Signature Pulmonary RADIOLOGY Function Test Name: ? BECKI MOROE ? ID: ?[id number] RESULTS Doctor: ?ISABELLA, MAL HECTOR ? Height: ? 61.50 in ? Age: ?54 Tech: ? NASI, MARY ?Weight: ? 218.00 lbs ?? Sex: ?Female Date: ?01/11/2010 ?Time: ??01:47:13 PM ? Race: ? <Unspecified> Secondary ID: PT ID: ? [id number] ?Doctor ID: Change Status: Diagnosis: ?ASTHMA Dyspnea: Cough: Wheeze: Yrs Quit: ? Pks/Day: Yrs Smk: ?Tbco Pr od: Post-Test Comments: ?? Good efforts ? PRE-BRONCH ?POST-BRONCH ? Actual ?Pred ?%Pred ??Actual ?? %Pred ? %Chng SPIROMETRY FVC (L) ?2.41 ?3.15 ? 77 FEV1 (L) ? 2.00 ?2.48 ? 81 FEV1/FVC (%) ? 83 ?79 ?105 FEF 25% (L/sec) ?6.70 FEF 50% (L/sec) ?2.92 ?3.80 ? 77 FEF 75% (L/sec) ?0.73 ?1.35 ? 54 FEF 25-75% (L/sec) ? 2.17 ?2.46 ? 88 FEF Max (L/sec) ?7.12 ?6.21 ?1 15 FIVC (L) ? 2.12 FIF 50% (L/sec) ?3.49 ?3.81 ? 92 FIF Max (L/sec) ?3.71 ?4.24 ? 87 The FVC is reduced, but the FEV1/FVC ratio is increased. ??T he inspiratory flow rates are within normal limits. IMPRESSION:(The PFT standard for spirometry has been changed as of (12/13/05) to NHANESIII, so the % predicted values might not correlate to prior PFTs.) Restriction possible This preliminary report should not be used clinically unless reviewed and signed by a physician. ADRIANNA GALEANA Specimen Anatomical Collection Method Collection Time Receive d Time (Source) Location / / Volume Laterality 01/11/2010 1:47 AM 0 3:00 CDT PM CDT Transcripton Interface MD PFT ORDERABLES Performing Organization Address City/State/ZIP Code Phon e Number RADIOLOGY RESULTS documented in this encounter Visit Diagnoses Not on filedocumented in this encounter
--- OUTSIDE RECORDS SUMMARY | 2022-05-09 11:11 | XMS_ITS | Encounter Summary ---
:1955 Author Organization [place] Address [address] [facility] 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 documented as of this encounter Plan of Treatment Upcoming Encounters Date Type Specialty Care Team Description 05/19/2022 Office Visit ENT Dima Hidalgo M D [address] [facility] [address] [place], [place] [address] (Wo rk) 08/02/2022 Office Visit Neurology Yair Campos MD [address] [facility] [place] [address] (Wo rk) documented as of this encounter Procedures Procedure Name Priority Date/Time Associated Diagnosis Comme [facility] ECHO HEART Routine 02/20/2009 8:58 AM Results for this XTHORACIC,COMPLETE, CDT procedur e are in W/O DOPPLER the results section. documented in this encounter Results ECHO HEART XTHORACIC,COMPLETE, W/O DOPPLER (02/20/2009 8:58 AM CDT) [facility] Method Time Signature [facility] RADIOLOGY Interpretation Summary RESULTS No significant valvular abnormalities were noted. Technically difficult study. Poor acoustic windows. Gl obal and regional left ventricular function is normal with an EF of 60-65%. The i nferior vena cava was normal in size with preserved respiratory variability. N o pericardial effusion is present. PatientHeight: 62 in PatientWeight: 218 lbs BSA 2.0 m^2 Procedure Echocardiogram with two-dimensional, color and spectral Dopp ler performed. Left Ventricle Global and regional left ventricular function is normal with an EF of 60-65%. Left ventricular wall thickness is normal. Left ventricular size is normal. Normal left ventricular filling for age. Right Ventricle The right ventricle is normal size. Global right ventricular function is normal. Atria Both atria appear normal. Mitral Valve The mitral valve is normal. Aortic Valve Aortic valve is normal in structure and function. Tricuspid Valve The tricuspid valve is normal. The peak velocity of the tricuspid regurgitant jet is not ob tainable. Pulmonary artery systolic pressure cannot be assessed. Pulmonic Valve The pulmonic valve cannot be assessed. Vessels The inferior vena cava was normal in size with preserved res piratory variability. Pericardium No pericardial effusion is present. MMode 2D Measurements & Calculations IVSd: 1.0 cm LVIDd: 4.3 cm LVPWd: 0.93 cm LV mass(C)d: 138 grams Ao root diam: 3.0 cm LA dimension: 3.1 cm LA/Ao: 1.0 Doppler Measurements & Calculations MV E point: 71 cm/sec MV A point: 56 cm/sec MV E/A: 1.3 MV dec time: 0.22 sec Interpreting Physician: ??Gwyn Mendoza MD electr onically signed on 02-20-2009 11:02:55 Anatomical Region Laterality Modality Other Specimen (Source) Anatomical Collection Method Collection Time Re ceived Time Location / / Volume Laterality 02/20/2009 8:58 AM CDT Delmar Mehta MD [facility]UD[facility] documented in this encounter Visit Diagnoses Not on filedocumented in this encounter
--- OUTSIDE RECORDS SUMMARY | 2022-05-09 11:11 | XMS_ITS | Encounter Summary ---
:1955 Author Organization [place] Address [address] [place] [address] Care Team Providers Name Role Phone Unavailable Primary Care Provider Unavailable Encounter Details Date Type Department Care Team Description 11/05/2008 Office Visit-[facility] Allergy and Asthma Julius Ribera Phillips-Wangensteen MD Building XXX RESIGNED XXX 2nd Floor, Clinic 2A [address] [address] [facility] [address] [place] [phone] Social History Tobacco Use Types Packs/Day Years Used Date Smoking Tobacco: Never Assessed Sex Assigned at Date Recorded Female 08/17/2018 10:39 PM THAI MASSEUR documented as of this encounter Progress Notes Julius Ribera - 11/05/2008 2:45 PM CDT Sorting Grapple Operator: Julius Ribera Status: Final - Signature Encounter: 05 Nov 2008 Type: Allergy and Asthma Visit HISTORY OF PRESENT ILLNESS: Becki is a 53-year-old woman who presents today for a follow-up visit in regard to her asthma. She has been seen in the past with issues related to urticaria, angioedema, rhinitis and conjunctivitis. Her symptoms date back to age 50. Her symptoms are perennial and there are no definite triggers or patterns. Her main concern today is SOB and wheezing. She has had a couplerespiratory infections this past winter which has impacted her breathing significantly. At her last visit in July her Advair dose was increased to 500/50 BID. She does not feel that her breathing have improved since the increase in Advair. She has been using albuterol nebulizer 3-4 timers per week and her albuterol MDI daily. She has shortness of breath and chest tightness with any amount of exertion and sometimes from no trigger at all. She will wake up short of breath. She also has complaints of constant watery eyes and occasional post-nasal drip that will come on suddenly and severely with no apparent trigger. She checks peak flows twice daily and they are in the range of 350. Her typical best peak flow is 450. Methacholine challenge in the past had a positive response at 2.5mg/ml. REVIEW OF SYSTEMS: Constitutional, allergy, eyes, ENT, respiratory, cardiovascular, GI, , hematologic, endocrine, skin, musculoskeletal, neurological, psychiatric were all negative outside of what ismentioned above and in previous notes. CURRENT MEDICATIONS: 1. Advair 500-50 one inhalation BID Albuterol 90mcg MDI 1-2 puffs Q 4-6 hours PRN Catapress-TTS 0.1mg/24 hours. Apply one patch weekly. EpiPen 0.3mg use UD Lunesta 2mg at bedtime PRN Provigil 300mg daily Requip 0.5mg at bedtime PHYSICAL EXAMINATION: Weight 210 pounds, height 62 inches. Blood pressure 144/75, pulse 89. General - the patient is alert, oriented with no signs of distress. Head, eyes, ears, nose and throat - pupils are equally round, reactive to light. Nares are light pink. Oral mucosa is pink. External auditory canals are without erythema and tympanic membranes are normal and clear. Neck - no thyromegaly. No JVD. No lymphadenopathy appreciated. Cardiovascular - S1, S2 regular. No murmurs, gallops or rubs. Lungs - wheezing appreciated on exhalation. Skin - clear, no urticaria. Neuromuscular - negative. Psychological - negative. PULMONARY FUNCTION TESTS: 11/05/08: FVC 2.54, FEV1 1.9, FEV1/FVC 75 07/30/08: FVC 2.45, FEV1 1.8, FEV1/FVC 73 04/09/08: FVC 2.42, FEV1 1.81, FEV1/FVC 75 12/27/07: FVC 2.22, FEV1 1.76, FEV1/FVC 79 ASSESSMENT: 1. Uncontrolled moderate persistent asthma. The history, physical examiniation, overall plan and diagnosis was obtained and discussed with the patient and scribe. The results are summarized above. PLAN: 1. Add Singulair 10mg daily. Continue Advair 500-50 BID. Continue albuterol PRN. RTC in 1 month or sooner if symptoms warrant earlier intervention. Mesha Lopes.D. IV student acting as a scribe for Dr. Julius Ribera. Electronically signed by:Mesha Stoner Nov 05 2008 4:41PM THAI MASSEUR Electronically signed by:Julius Ribera M.D. Nov 05 2008 5:13PM THAI MASSEUR documented in this encounter Plan of Treatment Upcoming Encounters Date Type Specialty Care Team Description 05/19/2022 Office Visit ENT Dima Hidalgo M D [address] [place], [place] [address] (Sarah pino) 08/02/2022 Office Visit Neurology Yair Campos MD [address] [place] [address] (Sarah pino) documented as of this encounter Visit Diagnoses Not on filedocumented in this encounter
--- OUTSIDE RECORDS SUMMARY | 2022-05-09 11:11 | XMS_ITS | Encounter Summary ---
:1955 Author Organization [place] Address [address] [facility] [place] [address] Care Team Providers Name Role Phone Unavailable Primary Care Provider Unavailable Encounter Details Date Type Department Care Team Description 02/18/2009 Office Visit-[facility] Unknown, Provider Social History Tobacco Use Types Packs/Day Years Used Date Smoking Tobacco: Never Assessed Sex Assigned at Date Recorded Female 08/17/2018 10:39 PM BILLET HEATER documented as of this encounter Progress Notes Unknown, Provider - 02/18/2009 12:15 PM CDT Factorer: WalkerLila Status: Final Encounter: 18 Feb 2009 Type: Rooming Note Reason For Visit Follow up asthma- pt reports the past few weeks breathing has been decreased. Pt also reports swelling of face, throat and other extremities. Pt also reports recent prednisone bursts and ER visits. Pt reports confusion Do you have any other appointments, tests or procedures within the [place] system for this same day? No. Pain Eval Current history of pain associated with this visit is as follows: Location: throat Quality: slight pain Severity: 4 (Pain scale 1-10, with 10 being the worst) Duration: on and off Timing: with deep breathing Context: Modifying factors: nothing helps Associated signs/symptoms: Personal Hx Behavioral history: No tobacco use. Home environment: No secondhand tobacco smoke in home. Vital Signs Recorded by Lila Cardoso on 18 Feb 2009 12:40 PM BP:139/71, HR: 81 b/min, Height: 62 in, Weight: 215 lb, BMI: 39.3 kg/m2. Allergies Cipro TABS Darvocet-N 50 TABS Vicodin TABS. Current Meds Albuterol 90 MCG/ACT AERS;INHALE 1-2 PUFFS EVERY 4-6 HOURS NEEDED AND DIRECTED.; RPT Provigil 200 MG Tablet;TAKE 1 AND 1/2 TABLETS DAILY.; RPT EpiPen 2-Db 0.3 MG/0.3ML (1:1000) Device;INJECT 0.3ML INTRAMUSCULARLY DIRECTED.; Rx Lunesta 2 MG Tablet;TAKE 1 TABLET AT BEDTIME NEEDED.; RPT Requip 0.5 MG Tablet;TAKE 1 TABLET BEDTIME; RPT Dzzfygig-MPL-6 0.1 MG/24HR Patch Weekly;APPLY 1 PATCH WEEKLY DIRECTED.; RPT Advair Diskus 500-50 MCG/DOSE Miscellaneous;USE ONE INHALATION TWICE A DAY; Rx Singulair 10 MG Tablet;TAKE 1 TABLET DAILY.; Rx AAA-MED RECONCILE;; RPT. Signature Signed By: Lila Cardoso RN; 02/18/2009 12:41 PM BILLET HEATER. documented in this encounter Plan of Treatment Upcoming Encounters Date Type Specialty Care Team Description 05/19/2022 Office Visit ENT Dima Hidalgo M D [address] [place], [place] [address] (Wo rk) 08/02/2022 Office Visit Neurology Yair Campos MD [address] [place] [id number] (Sarah rk) documented as of this encounter Visit Diagnoses Not on filedocumented in this encounter
--- OUTSIDE RECORDS SUMMARY | 2022-05-09 11:11 | XMS_ITS | Encounter Summary ---
:1955 Author Organization [place] Address [address] [facility] [place] [address] Care Team Providers Name Role Phone Unavailable Primary Care Provider Unavailable Encounter Details Date Type Department Care Team Description 04/09/2008 Office Visit-[facility] Allergy and Asthma Julius Ribera Phillips-Wangensteen MD Building XXX RESIGNED XXX 2nd Floor, Clinic 2A [address] [address] [facility] [address] [place] [phone] Social History Tobacco Use Types Packs/Day Years Used Date Smoking Tobacco: Never Assessed Sex Assigned at Date Recorded Female 08/17/2018 10:39 PM TANK BUILDER documented as of this encounter Progress Notes Julius Ribera - 04/09/2008 3:00 PM CDT Grinder Machine Knife Setter: Julius Ribera Status: Final - Signature Encounter: 09 Apr 2008 Type: Allergy and Asthma Visit CC: Patient presents to clinic for a follow-up appointment in regards to her bronchial asthma. HPI: Becki is 53 year old woman who presents to clinic today for a follow-up appointment in regards to evaluating and managing her bronchial asthma symptoms (positive methacholine test on 02/22/07). She has been experiencing symptoms of wheezing, SOB, throat tightness, chest tightness, and cough for approximately 4 years, with the last 2 years being the worst. Currently she is only taking albuterol PRN; she has both an inhaler and a nebulizer and uses the nebulizer if she doesn???t get relief with the inhaler. She was Advair previous for a little over a year and during her last visit with us 12/27/07, her dose was increased to 250/50 - 1 puff PO BID. However, around 12/30/07, Becki made the personal decision to stop taking many of her prescriptions d/t to concerns that they may be contributing about 2 years of episodes of chronic idiopathic urticaria with edema of which has fully resolved since early January of this year (see previous notes including one from Dr. Velasquez on 12/27/07 for more details). The medications discontinued include Advair, Zyrtec, Cymbalta, Doxepin, Ranitidine, and Singulair.In regards to her asthma symptoms, she has been to the ER 3 times in the last year, experiences symptoms throughout the day and at least once during the night, uses her albuterol at least 3x/day, and is very limited in her activities stating that she can???t exercise. About 1 month ago, patient experie nced sore throat, fever, headache, coughing, and mucus production with yellow/green sputum. At this time she saw her primary MD, Dr. Aleks Lopez who prescribed azithromycin 1 tab PO QD x5days which resolved her symptoms. Now she feels like another infection may be coming on because of a ???bad taste?? in her mouth after she coughs which was consistent with this last episode. ROS: Constitutional - Weight 204 lb, BP 150/83, P 104 Allergy respiratory, GI, , integument all unremarkable outside of what was mentioned in HPI and previous notes. Eyes - believes vision is getting worse, uses ???cheaters?? now ENT - trouble swallowing about 1x/day and reports post-nasal drip at the moment CV - primary doctor told her that her previous edema could be a sign of a heart condition. She does not believe a further work-up of this has been done. Heme - several years ago diagnosed with anemia that self-resolved in about 1 month Endocrine - several years ago was taking synthroid for misdiagnosed hypothyroidism. Was diagnosed asnormal by a specialist shortly after starting this medication. Musculoskeletal - muscles everywhere have an achy pain which on average is rated 4/10 with higher scores of 7-8/10 about 4x/week. When -02/23, will use ibuprofen some times. Reports being diagnosed by [facility] 16 years ago with fibromyalgia. Neuro - tingling/numbness of extremities on occasion about 2x/year. Psych - depression, stressed, states not suicidal. PMH: Bronchial asthma (diagnosed February 2007) Hx of chronic idiopathic urticaria Suspected GERD Depression (diagnosed about 4 years ago) RLS (diagnosed in 2000 at [facility]) Mild Sleep Apnea (diagnosed in 2000 at [facility]) Insomnia (diagnosed in 2000 at [facility]) HTN (diagnosed about 2 months ago) Daytime sleepiness Fibromyalgia (diagnosed 16 years ago by [facility]) Carpel Tunnel Syndrome (diagnosed in 1998) MEDS: (*note: Patient stopped the following medications approx 12/30/07) *Advair 250/50 - 1 puff PO BID Albuterol inhaler - 1-2 puffs PO Q4-6 hours PRN Yvxvjoje-UHI-6 0.1mg/24 patch - Apply 1 patch weekly as directed *Zyrtec 10mg - 1 tab PO BID *Cymbalta 60mg -1 cap PO QD *Doxepin 10mg - 1 cap PO TID PRN EpiPen - inject 0.3ml IM as needed as directed Lunesta 2mg - 1 tab PO at bedtime as needed (uses about 6x/year) Protonix [address] -1 tab PO QD PRN Provigil 200mg - 1 and ?? tab PO QD *Ranitidine 150mg - 1 cap PO BID Requip 0.5mg - 1 tab PO at bedtime PRN (uses about 2x/week) *Singulair 10mg - 1 tab PO QD Ibuprofen 200mg - 1-2 tabs PO Q6-8 hour PRN Cold/Flu products of unknown name with Vitamin C PRN when having a respiratory infection ADR: Hypertension med of unknown name (tried prior to Catapres) - made her uneasy and uncomfortable, feltthat her heart and head felt weird Synthroid - uneasy, uncomfortable, jittery SHx: She lives in a house in her present location since May of 2006, prior to that she [place] apartment [place]. She has lived in the [place] the most of her life and she has had a dog off and on. She works with [employer], valued as [employer], and there is some possibility of a sick building syndrome. As I mentioned her history is extremely vague regarding all of this. FamHx: Reveals a daughter with asthma and a paternal aunt with asthma, and a grandmother with asthmaon the maternal side. PE: Vital Signs: Weight 204 pounds, blood pressure 150/83, pulse 104. HEENT: Slight edema was noted of the nasal mucosa in left nostril. Neck: Revealed no abnormal neck vein distension. Lungs: Revealedwheezes upon expiration. Heart: RRR, revealed no murmurs, gallops, or arrhythmias. Abdominal: Obese without organomegaly. Extremities: Negative. Skin: Negative. No dermatographism. Musculoskeletal: Negative. Neurological: Negative. Psychiatric: Negative. A/P: 1) Bronchial Asthma. 2) Suspected GERD. Asthma Action Plan. Restart Cymbalta at previous dose (refer to MEDS). Restart Protonix DR at 40mg PO QD (as opposed to PRN). Restart Advair 250/50 - 1 puffPO BID and continue with albuterol as needed. F/u in 2 weeks. Obtain PFTs, evaluate asthma symptom co ntrol and evaluate efficacy/safety of medications at this time. Randy Yeh, Student Pharmacist acting as scribe for Dr. Ribera The history, physical examiniation, overall plan and diagnosis was obtained and discussed with the scribe and patient. The results are summarized above. Electronically signed by:Randy Yeh Apr 09 2008 6:14PM TANK BUILDER Electronically signed by:Satish Ribera M.D. Apr 14 2008 8:47AM TANK BUILDER documented in this encounter Plan of Treatment Upcoming Encounters Date Type Specialty Care Team Description 05/19/2022 Office Visit ENT Dima Hidalgo M D [address] [place], [place] [address] (Sarah pino) 08/02/2022 Office Visit Neurology Yair Campos MD [address] [place], [place] [address] (Sarah pino) documented as of this encounter Visit Diagnoses Not on filedocumented in this encounter
--- OUTSIDE RECORDS SUMMARY | 2022-05-09 11:11 | XMS_ITS | Encounter Summary ---
:1955 Author Organization [place] Address [facility] [place] [address] Care Team Providers Name Role Phone Unavailable Primary Care Provider Unavailable Encounter Details Date Type Department Care Team Description 07/30/2008 Historic Results INTERFACED REPORT Interface, Ani hyde MD Social History Tobacco Use Types Packs/Day Years Used Date Smoking Tobacco: Never Assessed Sex Assigned at Date Recorded Female 08/17/2018 10:39 PM SALES EXPERT documented as of this encounter Plan of Treatment Upcoming Encounters Date Type Specialty Care Team Description 05/19/2022 Office Visit ENT Dima Hidalgo M D [address] [facility] [place], [place] [address] (Wo rk) 08/02/2022 Office Visit Neurology Yair Campos MD [address] [facility] [place], [place] [phone] (Wo rk) documented as of this encounter Procedures Procedure Name Priority Date/Time Associated Diagnosis Comme nts PFT GENERAL LAB Routine 07/30/2008 1:59 AM Result s for this TESTING SALES EXPERT procedure are i n the results section. documented in this encounter Results Pulmonary function test procedure (07/30/2008 1:59 AM SALES EXPERT) Component Value Ref Test Analysis Performed At [facility] Method Time Signature Pulmonary RADIOLOGY Function Test Name: ? BECKI MOORE ? ID: ?[id number] RESULTS Doctor: ?ISABELLA, MAL HECTOR ? Height: ? 61.50 in ? Age: ?53 Tech: ? NASI, MARY ?Weight: ? 211.00 lbs ?? Sex: ?Female Date: ?07/30/2008 ?Time: ??01:59:08 PM ? Race: ? <Unspecified> Secondary ID: PT ID: ? [id number] ?Doctor ID: Change Status: Diagnosis: ?ASTHMA/HIVES Dyspnea: Cough: Wheeze: Yrs Quit: ? Pks/Day: Yrs Smk: ?Tbco Pr od: Post-Test Comments: ?? Good efforts; ??2.5mg Albuterol neb used as a BD. ? PRE-BRONCH ?POST-BRONCH ? Actual ?Pred ?%Pred ??Actual ?? %Pred ? %Chng SPIROMETRY FVC (L) ?2.45 ?3.18 ? 77 ?2.39 ?75 ?-2 FEV1 (L) ? 1.80 ?2.50 ? 72 ?1.82 ?73 ? 1 FEV1/FVC (%) ? 73 ?80 ? 92 ?76 ?95 ? 4 FEF 25% (L/sec) ?4.75 ?4.89 ? 97 ?6.22 ? 127 ?31 FEF 50% (L/sec) ?1.74 ?3.83 ? 46 ?2.00 ?52 ?15 FEF 75% (L/sec) ?0.25 ?1.37 ? 18 ?0.36 ?26 ?44 FEF 25-75% (L/sec) ? 1.13 ?2.50 ? 45 ?1.26 ?50 ?12 FEF Max (L/sec) ?6.60 ?6.25 ?106 ?6.53 ? 104 ?-1 FIVC (L) ? 2.18 ? 2.24 ? 3 FIF 50% (L/sec) ?2.16 ?3.80 ? 57 ?3.01 ?79 ?39 FIF Max (L/sec) ?2.77 ?4.22 ? 66 ?3.22 ?76 ?16 The FVC, FEV1, FEV1/FVC ratio and IBH56-75% are reduced lashanda cating airway obstruction. ??The inspiratory flow rates are reduced . ??Following administration of bronchodilators, there is no significant r esponse. IMPRESSION:(The PFT standard for spirometry has been changed as of (12/13/05) to NHANESIII, so the % predicted values might not correlate to prior PFTs.) Mild Airflow Obstruction This preliminary report should not be used clinically unless reviewed and signed by a physician. ADRIANNA GALEANA Specimen Anatomical Collection Method Collection Time Receive d Time (Source) Location / / Volume Laterality 07/30/2008 1:59 AM 4:02 SALES EXPERT PM SALES EXPERT Transcripton Interface PFT ORDERABLES Performing Organization Address City/State/ZIP Code Phon e Number RADIOLOGY RESULTS documented in this encounter Visit Diagnoses Not on filedocumented in this encounter
--- OUTSIDE RECORDS SUMMARY | 2022-05-09 11:11 | XMS_ITS | Encounter Summary ---
:1955 Author Organization [place] Address [facility] 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 (this includes clinic appt's, Imaging, labs, procedures etc.) No. Current Meds The medications listed below were reviewed with patient by di prior to provider visit on December 27, 2007 at 16:08. Pain Assessment Current history of pain associated with this visit is denied. Smoking Assessment No secondhand cigarette smoke exposure. No tobacco use. Vital Signs Recorded by Lila Cardoso on 27 Dec 2007 04:08 PM BP:150/81, HR: 100 b/min, Weight: 208 lb. Signature Electronically Signed By: Lila Cardoso RN; 12/27/2007 4:09 PM DATA PROCESSING SYSTEMS CONSULTANT. documented in this encounter Plan of Treatment Upcoming Encounters Date Type Specialty Care Team Description 05/19/2022 Office Visit ENT Dima [facility]idalgo M D [address] [facility] [place], [place] [address] (Wo rk) 08/02/2022 Office Visit Neurology Yair Campos MD [address] [facility] [place] [address] (Wo rk) documented as of this encounter Visit Diagnoses Not on filedocumented in this encounter
--- OUTSIDE RECORDS SUMMARY | 2022-05-09 11:11 | XMS_ITS | Encounter Summary ---
:1955 Author Organization [place] Address [address] [facility] [place] [address] Care Team Providers Name Role Phone Unavailable Primary Care Provider Unavailable Encounter Details Date Type Department Care Team Description 07/30/2008 Office Visit-[facility] Allergy and Asthma Julius Ribera [place] Building XXX RESIGNED XXX 2nd Floor, Clinic 2A [address] [facility] [address] [id number] [phone] Social History Tobacco Use Types Packs/Day Years Used Date Smoking Tobacco: Never Assessed Sex Assigned at Date Recorded Female 08/17/2018 10:39 PM ASSISTANT FACILITY MANAGER documented as of this encounter Progress Notes Julius Ribera - 07/30/2008 1:30 PM CST Icu Staff Nurse: BacilioPranayJulius Status: Final - Signature Encounter: 30 Jul 2008 Type: Allergy and Asthma Visit Pulmonary, Allergy and Critical Care Department of Medicine [place] Mail Code [address] [place] [address] Office: [phone] [facility] EfrainViridiana [facility] [address] Fifth Floor, Clinic [address] [place] [address] RE: Becki Thomas : 1955 RODOLFO: 07/30/2008 OUTPATIENT VISIT NOTE HISTORY OF PRESENT ILLNESS: Patient is a 53-year-old woman who we first saw in 2006 for urticaria, angioedema, rhinitis, asthma, conjunctivitis, depression, GERD. Symptoms probably date back to around age 50. Symptoms are perennial and there is no definite pattern. Her lab studies were all unremarkable except for a urine histamine of 580. She has had no hives for a long period of time, i.e. over 6 months on cetirizine. She takes albuterol but is not doing her peak flows. Methacholine was positive. She is still having significant respiratory problem though her skin is doing quite well. REVIEW OF SYSTEMS: Constitutional, allergy, eyes, ENT, respiratory, cardiovascular, GI, , hematologic, endocrine, skin, musculoskeletal, neurological, psychiatric were all negative. She feels Advair has helped her. PHYSICAL EXAMINATION: Physical examination today shows weight 211, blood pressure 123/60, pulse 80. Head, EENT unremarkable. No edema was noted of the nasal mucosa. Neck examination revealed no abnormal neck vein distention. Lungs: No wheezes or rhonchi at rest. A few rhonchi were noted on forced respiration. Cardiac examination revealed no murmurs or arrhythmias. Abdominal examination obese without organomegaly. Extremities negative. Skin: No dermatographism. Neuromuscular negative, no arthritic changes. Psychological, hematologic, immunologic negative. STUDIES: PH probe has been negative. ASSESSMENT: 1. Bronchial asthma. 2. Urticaria of unknown etiology. RECOMMENDATIONS: 1. Asthma action plan. 2. Increase Advair 500/50 b.i.d. 3. Discontinue Protonix. 4. Consider repeating 24 hour urine for histamine. 5. To be reevaluated in 4 weeks or sooner if symptoms warrant. Julius Ribera M.D. geochemist Director, Asthma & Allergy Program MB:blessing Electronically signed by:Satish Ribera M.D. Aug 11 2008 3:25PM ASSISTANT FACILITY MANAGER STANT FACILITY MANAGER documented in this encounter Plan of Treatment Upcoming Encounters Date Type Specialty Care Team Description 05/19/2022 Office Visit ENT Dima Hidalgo M D [address] [facility] [place], [place] [address] (Wo rk) 08/02/2022 Office Visit Neurology Yair Campos MD [address] [place] [phone] (Wo rk) documented as of this encounter Visit Diagnoses Not on filedocumented in this encounter
--- OUTSIDE RECORDS SUMMARY | 2022-05-09 11:11 | XMS_ITS | Encounter Summary ---
:1955 Author Organization [place] Address [facility]0 [facility] 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 documented as of this encounter Progress Notes Provider, [facility] Nurse - 04/09/2008 3:00 PM CDT Mechanical Inspector: Irma Dodd Status: Final Encounter: 09 Apr 2008 Type: Teaching Flowsheet Teaching Flowsheet Relevant Diagnosis: asthma Teaching Topic:asthma action plan Person(s) involved in teaching: Patient Motivation Level: Asks Questions: Yes Eager to Learn: Yes Cooperative: Yes Receptive (willing/able to accept information): Yes Patient demonstrates understanding of the following: Reason for the appointment, diagnosis and treatment plan: Yes Knowledge of proper use of medications and conditions for which they are ordered (with special attention to potential side effects or drug interactions): Yes Which situations necessitate calling provider and whom to contact: Yes Proper use and care of (medical equip, care aids, etc.): Yes Nutritional needs and diet plan: NA Pain management techniques: NA Wound Care: NA How and/when to access community resources: Yes Instructional Materials Used/Given: asthma action plan given to pt verbally and written. Pt stated understanding and had no questions. Signature Electronically Signed By: Irma oDdd RN; 04/09/2008 5:48 PM LINUX SYSTEMS ANALYST. Provider, [facility] Nurse - 04/09/2008 3:00 PM CDT Mechanical Inspector: DavisNadira elias Status: Final Encounter: 09 Apr 2008 Type: Allergy Nurse Note Reason For Visit BECKI MOORE is a 53 year old female present today with f/u shortness of breath. Do you have any other appointments of any type today within the [facility] system? (this includes clinic appt's, Imaging, labs, procedures etc.) No. Pain Assessment Current history of pain associated with this visit is as follows: Location: throat Quality: dull Severity: 2 (Pain scale 1-10, with 10 being the worst) Duration: [ ] Timing: [ ] Context: [ ] Modifying factors: [ ] Associated signs/symptoms: [ ]. Smoking Assessment No secondhand cigarette smoke exposure. No tobacco use. Vital Signs Recorded by Nadira Davis on 09 Apr 2008 10:01 AM BP:150/83, HR: 104 b/min, Height: 62.25 in, Weight: 204 lb, BMI: 37 kg/m2. Signature Electronically Signed By: Nadira Davis RN; 04/09/2008 3:04 PM LINUX SYSTEMS ANALYST. documented in this encounter Plan of Treatment Upcoming Encounters Date Type Specialty Care Team Description 05/19/2022 Office Visit ENT Dima Hidalgo M D [address] [place], [place] [address] (Sarah pino) 08/02/2022 Office Visit Neurology Yair Campos MD [address] [place], [place] [address] [place] [address] (Sarah pino) documented as of this encounter Visit Diagnoses Not on filedocumented in this encounter
--- OUTSIDE RECORDS SUMMARY | 2022-05-09 11:11 | XMS_ITS | Encounter Summary ---
:1955 Author Organization [place] Address [facility]0 [facility] [place] [address] Care Team Providers Name Role Phone Unavailable Primary Care Provider Unavailable Encounter Details Date Type Department Care Team Description 11/08/2007 Office Visit-[facility] Allergy and Asthma Provider, [facility] Clinic [address] [place] [phone] Social History Tobacco Use Types Packs/Day Years Used Date Smoking Tobacco: Never Assessed Sex Assigned at Date Recorded Female 08/17/2018 10:39 PM BRIM CURLER documented as of this encounter Progress Notes Provider, [facility] Nurse - 11/08/2007 4:15 PM CDT Professional Nursing Tutor: Nadira Davis Status: Amended, Final Encounter: 08 Nov 2007 Type: Allergy Nurse Note Reason For Visit BECKI MOORE is a 52 year old female present today with f/u urticaria and asthma. Do you have any other appointments of any type today within the [facility] system? (this includes clinic appt's, Imaging, labs, procedures etc.) No. Current Meds The medications listed below were reviewed and updated with patient by Suzanna prior to provider visit on November 08, 2007 at 16:52. Pain Assessment Current history of pain associated with this visit is denied. Smoking Assessment No secondhand cigarette smoke exposure. No tobacco use. Vital Signs Recorded by Nadira Davis on 08 Nov 2007 04:51 PM BP:145/73, HR: 90 b/min, Height: 62 in, Weight: 200 lb, BMI: 36.6 kg/m2. Therapy Nursing care five Amended By: Nadira Davis ; 11/08/2007 4:54 PM BRIM CURLER. Signature Electronically Signed By: Nadira Davis RN; 11/08/2007 4:54 PM BRIM CURLER. Electronically Signed By: Nadira Davis RN; 11/12/2007 10:08 AM BRIM CURLER. documented in this encounter Plan of Treatment Upcoming Encounters Date Type Specialty Care Team Description 05/19/2022 Office Visit ENT Dima Hidalgo M D [address] [facility] [place], [place] [address] (Sarah pino) 08/02/2022 Office Visit Neurology Yair Campos MD [address] [facility] [address] (Sarah pino) documented as of this encounter Visit Diagnoses Not on filedocumented in this encounter
--- OUTSIDE RECORDS SUMMARY | 2022-05-09 11:11 | XMS_ITS | Encounter Summary ---
:1955 Author Organization [place] Address [facility] 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 ROUTINE UA WITH Routine 03/27/2008 4:33 PM Result s for this MICROSCOPIC CDT procedure are i n the results section. HISTOPATHOLOGY Routine 03/27/2008 12:00 Results f or this AM CDT procedure are i n the results section. documented in this encounter Results Urine culture (03/27/2008 4:58 PM CDT) [facility] Method Time Signature Specimen Midstream MISYS Description Urine Culture Micro No growth MISYS Micro Report FINAL MISYS Status 03/28/2008 Specimen Anatomical Collection Method Collection Time Receive d Time (Source) Location / / Volume Laterality 03/27/2008 4:58 PM 8 4:35 CDT PM CDT Transcripton Interface LAB - MICRO GENERAL ORDERABL ES Performing Organization Address City/State/ZIP Code Phon e Number MISYS (ABNORMAL) Routine UA with microscopic (03/27/2008 4:33 PM CDT) [facility] [employer] Method Time Signature Source Midstream MISYS Urine Color Urine Yellow MISYS Appearance Urine Clear MISYS Glucose Urine Negative NEG mg/dL MISYS Bilirubin Urine Negative NEG MISYS Ketones Urine Negative NEG mg/dL MISYS Specific [place] 1.023 1.003 - MISYS Urine 1.035 Blood Urine Negative NEG MISYS pH Urine 5.0 5.0 - 7.0 MISYS pH Protein Albumin Negative NEG mg/dL MISYS Urine Urobilinogen Normal 0.0 - 2.0 MISYS mg/dL mg/dL Nitrite Urine Negative NEG MISYS Leukocyte Negative NEG MISYS Esterase Urine WBC Urine <1 0 - 2 MISYS /HPF RBC Urine 1 0 - 2 MISYS /HPF Squamous 1 0 - 1 MISYS Epithelial /HPF /HPF Urine Mucous Urine Present (A) NEG /LPF MISYS Specimen Anatomical Collection Method Collection Time Receive d Time (Source) Location / / Volume Laterality 03/27/2008 4:33 PM 8 4:35 CDT PM CDT Transcripton Interface LAB - URINE ORDERABLES Performing Organization Address City/State/ZIP Code Phon e Number MISYS Histopathology (03/27/2008 12:00 AM CDT) Component Value Ref Test Analysis Performed At [facility] [employer] Range Method Time Signature Copath Report CASE: [id number] ^ COPATH Patient Name: BECKI MOORE MR#: [id number] Specimen #: [id number] Collected: 03/27/2008 Received: 03/28/2008 Reported: 03/31/2008 12:47 Ordering Phy(s): RULA DUNCAN Additional Phy(s): JORDAN MACIEL SPECIMEN(S): Endocervical curettings FINAL DIAGNOSIS: Endocervix, curettings: ? - Benign cervical mucosa. Electronically signed out by: Shahram Jackson M.D., Physicians CLINICAL HISTORY: 53 year old female with atypical squamous cells ofundetermin ed significance and high risk HPV Pap. GROSS: One specimen is received labeled with the patient's name and medical record number. The specimen is designated endocervical curettage. ??The s pecimen consists of approximately five translucent soft tissue fragm ents averaging less than 0.1 cm in greatest dimension with associ ated debris. All fragments are entirely submitted in a single cassette. (Katelyn/ida ??03/28/08) MICROSCOPIC: Performed. TESTING LAB LOCATION: [facility], [address] ?? [id number] COLLECTION SITE: Client: [facility] Location: [facility] (B) Specimen (Source) Anatomical Collection Method Collection Time Re ceived Time Location / / Volume Laterality 03/27/2008 03/31/2008 12:4 8 PM CDT Rula Duncan MD LAB - COPATH SPECIAL DIAG OR DERABLES Performing Organization Address City/State/ZIP Code Phon e Number COPATH documented in this encounter Visit Diagnoses Not on filedocumented in this encounter
--- OUTSIDE RECORDS SUMMARY | 2022-05-09 11:11 | XMS_ITS | Encounter Summary ---
:1955 Author Organization [place] Address [facility]0 [facility] 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 Consult requested by Dr. Ribera. HPI The patient denies a history of coronary artery disease, valvular heart disease, cardiac arrhythmia,and congestive heart failure. The patient has not undergone prior exercise stress testing, echocardiology, or coronary angiography/revascularization. Her complaints are multiple and consist of exertional dyspnea, somnolence during daytime, puffiness, and chest heaviness that is relived by physical rest. Symptoms have been ongoing for 3-6 months and interfere with her lifestyle. Chest pain is unpredictble, intebnsity 4/10, radiates to the jaw and occurs several times per week. Has not ried nitroglycerin. PMH 1. Fluid retention 2. 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 3. Chronic Idiopathic Urticaria 4. Angioedema 5. Rhinitis 6. GERD 7. Restless leg syndrome 8. YESSI 9. Depression 10. Hypertension. Family Hx Maternal and Paternal history of coronary artery disease. Personal Hx Behavioral history: No tobacco use. Alcohol: No consumption of alcohol. ROS Constitutional: No fever, chills, or sweats. No weight gain/loss. ENT: No visual disturbance, ear ache, epistaxis, sore throat. Allergies/Immunologic: Negative. Respiratory: No cough, hemoptysis. Cardiovascular: As per HPI. GI: No nausea, vomiting, hematemesis, melena, or hematochezia. : No urinary frequency, dysuria, or hematuria. Integument: Negative. Psychiatric: Negative. Neuro: Negative. Endocrinology: Negative. Musculoskeletal: Negative. Physical Exam In general, the patient is a pleasant female in no apparent distress. She is obese. HEENT: NC/AT. PERRLA. EOMI. Sclerae white, not injected. Nares clear. Pharynx without erythema or exudate. Dentition intact. Neck: No adenopathy. No thyromegaly. Carotids +4/4 bilaterally without bruits. No jugular venous distension. Lungs: CTA. No ronchi, wheezes, rales. No dullness to percussion. Cor: RRR. Normal S1, S2 splits physiologically. No murmur, rub, click, or gallop. The PMI is in the 5th ICS in the midclavicular line. There is no heave. Abdomen: Soft, nontender, nondistended. No organomegaly. No bruits.Extremities: No clubbing, cyanosis, or edema. The pulses are +4/4 at the radial, brachial, femoral, popliteal, DP, and PT sites bilaterally. No bruits are noted. ECG (02/20/2009) NSR. HR 62. Normal. Procedures ECHO (02/20/2009) I personally reviewed the echo. Normal LVSF. Normal valve function. Normal IVC and distolic filling pattern. No effusion. Assessment 1. Shortness of breath and chest pain along with other complaints: Probability of CAD is low to intermediate. SOB is most likely multifactorial: asthma, obesity, sleep apnea???. No evidence of heart failure signs on exam and no substrate on echo. We has prolonged conversation with the patient and discusssed treatment and diagnostic options. Plan as follows: - Evaluate for sleep apnea - Dobutamine stress test to assess for CAD - Weight loss - Exercise program - Follow up results. Signed By Delmar Mehta MD Glue Spreaderstrapping machine operator Cardiovascular Division [address] [address]. Signature Signed By: Pema Yu R.N.; 02/20/2009 8:00 AM SUPERVISOR FRAME ASSEMBLY. Signed By: Cole Sharif M.D.,Fellow; 02/20/2009 10:16 AM SUPERVISOR FRAME ASSEMBLY; Co-author. Electronically signed by:Delmar Mehta M.D. Feb 25 2009 11:33PM SUPERVISOR FRAME ASSEMBLY Author Electronically signed by:Delmar Mehta M.D. Feb 25 2009 11:37PM SUPERVISOR FRAME ASSEMBLY Author documented in this encounter Plan of Treatment Upcoming Encounters Date Type Specialty Care Team Description 05/19/2022 Office Visit ENT Dima Hidalgo M D [address] [facility] [place], [place] [address] (Sarah pino) 08/02/2022 Office Visit Neurology Yair Campos MD [address] [place] [phone] (Sarah pino) documented as of this encounter Visit Diagnoses Not on filedocumented in this encounter
--- OUTSIDE RECORDS SUMMARY | 2022-05-09 11:11 | XMS_ITS | Encounter Summary ---
:1955 Author Organization [place] Address [address] [facility] 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 OXYHEMOGLOBIN, Routine 03/31/2009 10:31 AM Result s for this VENOUS CDT procedure are i n the results section. documented in this encounter Results (ABNORMAL) BL GAS VENOUS AND O2HB PANEL (03/31/2009 10:31 AM CDT) P athologist Signature Ph Venous 7.42 7.32 - MISYS 7.43 pH PCO2 Venous 39 (L) 40 - 50 mm MISYS Hg PO2 Venous 55 (H) 25 - 47 mm MISYS Hg Bicarbonate 25 21 - 28 MISYS Venous mmol/L FIO2 21 MISYS Specimen Anatomical Collection Method Collection Time Receive d Time (Source) Location / / Volume Laterality 03/31/2009 10:31 03/31/2009 AM CDT 10:43 PM CDT Joanne Kimbrough NP LAB - BLOOD ORDERABLES Performing Organization Address City/[facility]/ZIP Code Phon e Number MISYS Oxyhemoglobin venous (03/31/2009 10:31 AM CDT) Analysis Performed At Patho logist Time Signature Oxyhemoglobin 88 % MISYS Venous Specimen Anatomical Collection Method Collection Time Receive d Time (Source) Location / / Volume Laterality 03/31/2009 10:31 03/31/2009 AM CDT 11:02 PM CDT Joanne Kimbrough NP LAB - BLOOD ORDERABLES Performing Organization Address City/State/ZIP Code Phon e Number MISYS documented in this encounter Visit Diagnoses Not on filedocumented in this encounter
--- OUTSIDE RECORDS SUMMARY | 2022-05-09 11:11 | XMS_ITS | Encounter Summary ---
:1955 Author Organization [place] Address [address] [place] 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 documented in this encounter Results ECHO HEART XTHORACIC, STRESS/REST (02/23/2009 8:06 AM CDT) [facility] gist Method Time Signature [facility] RADIOLOGY Interpretation Summary RESULTS Normal dobutamine stress echocardiogram. There were no wall motion abnormalities at rest and at peak dobutamine infusion. The L V systolic function was normal at rest with a normal hyperdynamic respo nse at peak dobutamine infusion. There was no ECG evidence for ischemia. There was no subjective evidence of ischemia. No significant valvular a bnormalities were noted. Baseline Normal baseline electrocardiogram. Stress The maximum dose of dobutamine was 50mcg/kg/min. The patient did not exhibit any symptoms during drug infusio n. There were no ST segment changes observed with stress. Procedure Dobutamine Echo Complete. Contrast Definity. Contrast Patient was given 5ml mixture of 1.5ml Definity and 8.5ml sa line. Stress Results Protocol: ??Dobutimine Stress Echocardiagram Target HR: 141 bpm ?Maximum Predicted HR: 1 66 bpm Stage ?Duration(mm:ss) ??HR(bpm) ?? BP ?DOSE ??Comment ?? rest ? 00:00 ?67 ?120/66 ? peak ? 05:26 ?146 ? 126/51 ? Stress Duration: 05:26 mm:ss ??Recovery Time: 00:00 mm:ss Maximum Stress HR: 146 bpm ?METS: ?? Interpreting Physician: ??Gwyn Mendoza MD electr onically signed on 02-23-2009 12:00:49 Anatomical Region Laterality Modality Other Specimen (Source) Anatomical Collection Method Collection Time Re ceived Time Location / / Volume Laterality 02/23/2009 8:06 AM CDT Delmar Mehta MD SPECIAL IMAGING STUDIES documented in this encounter Visit Diagnoses Not on filedocumented in this encounter
--- OUTSIDE RECORDS SUMMARY | 2022-05-09 11:11 | XMS_ITS | Encounter Summary ---
:1955 Author Organization [place] Address [address] [place] [address] Care Team Providers Name Role Phone Unavailable Primary Care Provider Unavailable Encounter Details Date Type Department Care Team Description 11/08/2007 Office Visit-[facility] Allergy and Asthma Alicia Velasquez [facility] PEDIATRIC 2nd Floor, Clinic [address] ASSOC [address] [place], [place] [address] [place] [phone] [place], [place] [address] (Wo rk) Social History Tobacco Use Types Packs/Day Years Used Date Smoking Tobacco: Never Assessed Sex Assigned at Date Recorded Female 08/17/2018 10:39 PM 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 CHIEF COMPLAINT: Worsening chronic idiopathic urticaria and shortness of breath. HISTORY OF PRESENT ILLNESS: Patient is a pleasant 52-year-old female who returns for follow up of her chronic idiopathic urticaria and shortness of breath. She does have confirmed bronchial hyperreactiveness as well as pulmonary function testing that shows some mild restrictive lung disease and a low DLCO. She has been stable since her last visit in April 2007. She was unable to return for earlier follow up due to caring for a sick mother. She recently had a severe hive flare with large red, raised lesions over her body several weeks ago and was placed on a prednisone burst by her primary care physician in [place]. She has been doing well but complains of swelling in her lower extremities and fluid retention. She also had an episode of shortness of breath today where she used her albuterol. She has been taking the Advair one puff twice daily and her breathing has been stable. She has not needed any prednisone burst or ER visits for acute respiratory distress. She has had extensive evaluation for possible triggers to her chronic hives. She has no prior allergies and denies having any seasonal allergic rhinitis. She has had no recent illnesses. Denies any fevers, chills, nausea, vomiting, diarrhea. She is under stress due to her work as well as caring for a sick mother. She also has been feeling very hot recently and questions whether this could be related to menopause. She was given Catapres for this but continues to have regular menstrual cycles. She didsee a tying in machine operator back in May for a full evaluation. They did not confirm whether she was going into menopause or not. She has had numerous thyroid checks and that has also been within normal limits. REVIEW OF SYSTEMS: Otherwise unremarkable except for what is mentioned in the HPI. PAST MEDICAL HISTORY: Significant for some depression, gastroesophageal reflux, mild sleep apnea, and restless leg syndrome. PHYSICAL EXAMINATION: Brittany woman in no acute distress. Vitals are stable. HEENT are all within normal limits. Lungs are clear to auscultation. Heart is regular rate and rhythm. Abdomen is soft, obese. Skin is clear of any rashes or hives but currently on prednisone. Lower extremities do show mild pitting edema. Neuro is grossly intact. PULMONARY FUNCTION TESTS: Pulmonary function test today was an FVC of 2.42 at 74% of predicted, FEV1is 2.05 which is 80% of predicted. Ratio is 85%. There appears to be a mild restrictive picture herebut may be related to her body habitus. There is no evidence of obstruction at this time. Full body PFTs were unable to be done today due to the patient being a half hour late for her appointment. ASSESSMENT: 1. Stable bronchial hyperreactiveness, probable mild asthma. Chronic idiopathic urticaria with recent exacerbation. PLAN: 1. Continue the current treatment for her mild asthma with Advair 100/50 one puff twice daily. She may continue using her bronchodilator as needed. Her symptoms seem to be very well controlled at this time. For the chronic idiopathic urticaria, advised that she should taper off of the 2-week prednisone burst as soon as possible. Renewed the medications of Zyrtec 10 mg twice daily, ranitidine 150 mg twice daily, and Singulair 10 mg once daily. This was helping her symptoms prior to the recent exacerbation. Will plan to add back doxepin 10 mg t.i.d. as needed for breakthrough hives as well as adding doxepin 2 to 3 tablets at night as needed. Plan is to check her FSH level for evaluation of menopause as well as a white count and differential and a chem panel. Patient has a father and a mother that are both dealing with emphysema. She also had an uncle that was treated for emphysema. Mother who has never had a history of tobacco abuse. She is wondering if there is a genetic component to acquiring emphysema. Did explain that alpha 1 antitrypsin deficiency can cause this and will plan to her level for this. However, she does not show significant signs of COPD. However, she did have an unusual low DLCO last year. Will have her come back in the next 4 to 6 weeks to repeat the full body PFTs with DLCO. Greater than 25 minutes was spent in forq-mf-rflo counseling. Alicia Velasquez M.D. Gun Profiler [place] Electronically signed by:ALICIA VELASQUEZ M.D. Nov 15 2007 12:50PM OPHTHALMOLOGIST RETINA SPECIALIST documented in this encounter Plan of Treatment Upcoming Encounters Date Type Specialty Care Team Description 05/19/2022 Office Visit ENT Dima Hidalgo M D [address] [facility] [address] [place], [place] [address] (Wo rk) 08/02/2022 Office Visit Neurology Yair Campos MD [address] [place] [address] (Wo rk) documented as of this encounter Visit Diagnoses Not on filedocumented in this encounter
--- OUTSIDE RECORDS SUMMARY | 2022-05-09 11:11 | XMS_ITS | Encounter Summary ---
:1955 Author Organization [place] Address [facility] 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 documented in this encounter Results Pulmonary function test procedure (04/09/2008 3:12 AM CDT) Component Value Ref Test Analysis Performed At Psychiatric Method Time Signature Pulmonary RADIOLOGY Function Test Name: ? BECKI MOORE ? ID: ?[id number] RESULTS Doctor: ?ISABELLA, MAL HECTOR ? Height: ? 62.00 in ? Age: ?53 Tech: ? JAIRO BONDS ? Weight: ? 204.00 lbs ?? Sex: ?Female Date: ?04/09/2008 ?Time: ??03:12:48 PM ? Race: ? <Unspecified> Secondary ID: PT ID: ? [id number] ?Doctor ID: Change Status: Diagnosis: ?ASTHMA; HX HIVES Dyspnea: Cough: Wheeze: Yrs Quit: ? Pks/Day: Yrs Smk: ?Tbco Pr od: Post-Test Comments: ?? GOOD EFFORT; ALBUTEROL (X4) BD ? PRE-BRONCH ?POST-BRONCH ? Actual ?Pred ?%Pred ??Actual ?? %Pred ? %Chng SPIROMETRY FVC (L) ?2.42 ?3.24 ? 75 ?2.59 ?80 ? 7 FEV1 (L) ? 1.81 ?2.55 ? 71 ?1.96 ?77 ? 9 FEV1/FVC (%) ? 75 ?80 ? 93 ?76 ?95 ? 2 FEF 25% (L/sec) ?5.10 ?4.94 ?103 ?6.49 ? 131 ?27 FEF 50% (L/sec) ?2.03 ?3.83 ? 53 ?2.55 ?67 ?26 FEF 75% (L/sec) ?0.33 ?1.37 ? 24 ?0.66 ?48 ? 101 FEF 25-75% (L/sec) ? 1.29 ?2.53 ? 51 ?1.88 ?74 ?46 FEF Max (L/sec) ?6.29 ?6.32 ? 99 ?6.69 ? 106 ? 6 FIVC (L) ? 2.31 ? 2.55 ?11 FIF 50% (L/sec) ?3.23 ?3.79 ? 85 ?4.24 ? 112 ?31 FIF Max (L/sec) ?3.84 ?4.21 ? 91 ?4.27 ? 102 ?11 The FVC, FEV1, FEV1/FVC ratio and MVG26-23% are reduced lashanda cating airway obstruction. ??The inspiratory flow rates are w ithin normal limits. A concomittant restrictive component cannot be ruled out witho ut lung volumes. ??Following administration of bronchodilators, ther e is no significant response. IMPRESSION:(The PFT standard for spirometry has been changed as of (12/13/05) to NHANESIII, so the % predicted values might not correlate to prior PFTs.) Mild Airflow Obstruction This preliminary report should not be used clinically unless reviewed and signed by a physician. ADRIANNA GALEANA Specimen Anatomical Collection Method Collection Time Receive d Time (Source) Location / / Volume Laterality 04/09/2008 3:12 AM 8 4:21 CDT PM CDT Transcripton Interface PFT ORDERABLES Performing Organization Address City/State/ZIP Code Phon e Number RADIOLOGY RESULTS documented in this encounter Visit Diagnoses Not on filedocumented in this encounter
--- OUTSIDE RECORDS SUMMARY | 2022-05-09 11:11 | XMS_ITS | Encounter Summary ---
:1955 Author Organization [place] Address [facility] 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 Viky Mackenzie M.D., M.P.H. CanoCARLA Lira M.D. Alfredo Tabor M.D. Ingrid Velasquez M.D. Joanne Kimbrough N.P. RE: Becki Thomas : 1955 RODOLFO: 04/14/2009 OUTPATIENT VISIT NOTE CHIEF COMPLAINT: Followup of polysomnogram. HISTORY OF PRESENT ILLNESS: Becki Thomas is a 54-year-old female who came to the Sleep Medicine Clinic with snoring, snort arousals, and excessive daytime sleepiness. 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 Comorbidities include asthma and obesity. Patient also has a history of intermittent restless leg syndrome. She has treated this with Requip in the past. A polysomnogram on 03/31/09 revealed the following highlights: Total sleep time 355.5 minutes, sleep latency 16.5 minutes. REM sleep latency was prolonged at 195 minutes. Sleep efficiency was reduced at73.6%. Sleep architecture was characterized by frequent sleep state changes and arousals. Snoring was reported as moderately loud. AHI 7.3, REM RDI 31.3, lowest oxygen saturations to 85%. No evidence of hypoventilation. PLM index was 92.2 per hour. Leg movement arousal index was 13.8 per hour. ASSESSMENT: 1. Mild obstructive sleep apnea, severe Rem-related YESSI with oxygen saturations to 85%. Restless leg syndrome. PLAN: 1. Risks of untreated obstructive sleep apnea, treatment modalities, benefits of CPAP therapy discussed. Patient would like to pursue autotitrating CPAP. Hallie Eddy, our CPAP medical coding technician, will notifypatient. I will set the patient's pressure between 5 and 15 cm of water pressure with heated humidity, ramp pressure at 5 cm of water over 15 to 20 minutes. Patient to have mask of choice. Methods of acclimating to PAP therapy discussed. [place] [employer] literature given to patient regarding YESSI. We will also obtain ferritin level today. If it is less than 50, we will treat with ferrous sulfate.If it is greater than 50, we will treat with Requip. Patient discussed having a nodular-type growth that comes and goes in her esophagus. Discussed that she should bring this up with her primary care physician. Patient to return to clinic in one month for followup of YESSI. Thirty minutes spent with patient, all of which were spent in counseling and coordination of care. Joanne Kimbrough N.P. LR:11 Electronically signed by:Joanne Kimbrough N.P. Apr 23 2009 6:25PM ELECTRIC POWER LINE EXAMINER documented in this encounter Plan of Treatment Upcoming Encounters Date Type Specialty Care Team Description 05/19/2022 Office Visit ENT Dima Hidalgo M D [address] [place], [place] [address] (Sarah pino) 08/02/2022 Office Visit Neurology Yair Campos MD [address] [place] [address] (Sarah pino) documented as of this encounter Visit Diagnoses Not on filedocumented in this encounter
--- OUTSIDE RECORDS SUMMARY | 2022-05-09 11:11 | XMS_ITS | Encounter Summary ---
:1955 Author Organization [place] Address [facility] 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 documented in this encounter Results Pulmonary function test procedure (11/05/2008 3:35 AM CDT) [facility] Method Time Signature Pulmonary RADIOLOGY Function Test Name: ? BECKI MOORE ? ID: ?[id number] RESULTS Doctor: ?ISABELLA, MAL HECTOR ? Height: ? 61.50 in ? Age: ?53 Tech: ? GIANLUCA, SHELL Y ? Weight: ? 210.00 lbs ?? Sex: ?Female Date: ?11/05/2008 ?Time: ??03:35:16 PM ? Race: ? <Unspecified> Secondary ID: PT ID: ? [id number] ?Doctor ID: Change Status: Diagnosis: ?ASTHMA, HIVES Dyspnea: Cough: Wheeze: Yrs Quit: ? Pks/Day: Yrs Smk: ?Tbco Pr od: Post-Test Comments: ?? GOOD EFFORT. PATIENT ON ADVAIR. ? PRE-BRONCH ?POST-BRONCH ? Actual ?Pred ?%Pred ??Actual ?? %Pred ? %Chng SPIROMETRY FVC (L) ?2.54 ?3.18 ? 80 FEV1 (L) ? 1.90 ?2.50 ? 76 FEV1/FVC (%) ? 75 ?80 ? 94 FEF 25% (L/sec) ?6.02 ?4.89 ?1 23 FEF 50% (L/sec) ?2.16 ?3.83 ? 56 FEF 75% (L/sec) ?0.35 ?1.37 ? 26 FEF 25-75% (L/sec) ? 1.37 ?2.50 ? 55 FEF Max (L/sec) ?7.23 ?6.25 ?1 16 FIVC (L) ? 2.39 FIF 50% (L/sec) ?3.71 ?3.80 ? 98 FIF Max (L/sec) ?3.98 ?4.22 ? 94 The FVC, FEV1, FEV1/FVC ratio and DFP87-90% are reduced lashanda cating airway obstruction. ??The inspiratory flow rates are within normal limits. IMPRESSION: Mild Airflow Obstruction This preliminary report should not be used clinically unless reviewed and signed by a physician. M.DADRIANNA CARRILLO Specimen Anatomical Collection Method Collection Time Receive d Time (Source) Location / / Volume Laterality 11/05/2008 3:35 AM 9 4:23 CDT PM CDT Transcripton Interface MD PFT ORDERABLES Performing Organization Address City/State/ZIP Code Phon e Number RADIOLOGY RESULTS documented in this encounter Visit Diagnoses Not on filedocumented in this encounter
--- OUTSIDE RECORDS SUMMARY | 2022-05-09 11:11 | XMS_ITS | Encounter Summary ---
:1955 Author Organization [place] Address [facility] [place] [address] Care Team Providers Name Role Phone Unavailable Primary Care Provider Unavailable Encounter Details Date Type Department Care Team Description 11/08/2007 Historic Results INTERFACED REPORT Interface, Ani hyde MD Social History Tobacco Use Types Packs/Day Years Used Date Smoking Tobacco: Never Assessed Sex Assigned at Date Recorded Female 08/17/2018 10:39 PM STONEMASON documented as of this encounter Plan of Treatment Upcoming Encounters Date Type Specialty Care Team Description 05/19/2022 Office Visit ENT Dima Hidalgo M D [address] [facility] [address] [place], [place] [address] (Wo rk) 08/02/2022 Office Visit Neurology Yair Campos MD [address] [facility] [place], [place] [phone] (Wo rk) documented as of this encounter Procedures Procedure Name Priority Date/Time Associated Diagnosis Comme nts PFT GENERAL LAB Routine 11/08/2007 4:57 AM Result s for this TESTING CDT procedure are i n the results section. documented in this encounter Results Pulmonary function test procedure (11/08/2007 4:57 AM CDT) [facility] Method Time Signature Pulmonary RADIOLOGY Function Test Name: ? BECKI MOORE ? ID: ?[id number] RESULTS Doctor: ?NICK PAUL ? Height: ? 62.00 in ? Age: ?52 Tech: ? THOLEN, CHARL NASEEM ? Weight: ? 200.00 lbs ?? Sex: ?Female Date: ?11/08/2007 ?Time: ??04:57:04 PM ? Race: ? <Unspecified> Secondary ID: PT ID: ? [id number] ?Doctor ID: Change Status: Diagnosis: ?ASTHMA Dyspnea: Cough: Wheeze: Yrs Quit: ? Pks/Day: Yrs Smk: ?Tbco Pr od: Post-Test Comments: ?? Good efforts. ? PRE-BRONCH ?POST-BRONCH ? Actual ?Pred ?%Pred ??Actual ?? %Pred ? %Chng SPIROMETRY FVC (L) ?2.42 ?3.26 ? 74 FEV1 (L) ? 2.05 ?2.57 ? 80 FEV1/FVC (%) ? 85 ?80 ?106 FEF 25% (L/sec) ?7.02 ?4.96 ?1 42 FEF 50% (L/sec) ?3.06 ?3.86 ? 79 FEF 75% (L/sec) ?0.94 ?1.39 ? 68 FEF 25-75% (L/sec) ? 2.47 ?2.57 ? 96 FEF Max (L/sec) ?7.77 ?6.36 ?1 22 FIVC (L) ? 2.30 FIF 50% (L/sec) ?3.15 ?3.78 ? 83 FIF Max (L/sec) ?3.41 ?4.20 ? 81 Although the FEV1 and FVC are reduced, the FEV1/FVC ratio is increased. ??The inspiratory flow rates are within normal li mits. The reduction in FVC would suggest a restrictive process. Ho wever, the presence of restriction should be confirmed by measurement o f lung volumes. IMPRESSION:(The PFT standard for spirometry has been changed as of (12/13/05) to NHANESIII, so the % predicted values might not correlate to prior PFTs.) Minimal Restriction -Possible This preliminary report should not be used clinically unless reviewed and signed by a physician. NICK NUGENT Specimen Anatomical Collection Method Collection Time Receive d Time (Source) Location / / Volume Laterality 11/08/2007 4:57 AM 8 5:31 CDT PM CDT Transcripton Interface PFT ORDERABLES Performing Organization Address City/State/ZIP Code Phon e Number RADIOLOGY RESULTS documented in this encounter Visit Diagnoses Not on filedocumented in this encounter
--- OUTSIDE RECORDS SUMMARY | 2022-05-09 11:11 | XMS_ITS | Encounter Summary ---
:1955 Author Organization [place] Address [address] [facility] 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 WBC COUNT Routine 11/09/2007 3:14 PM Results f or this CDT procedure are i n the results section. FOLLICLE STIMULATING Routine 11/09/2007 3:14 PM R esults for this HORMONE CDT procedure are i n the results section. COMPREHENSIVE Routine 11/09/2007 3:14 PM Results for this METABOLIC PANEL CDT procedure ar e in the results section. ALPHA 1 ANTITRYPSIN Routine 11/09/2007 3:14 PM Re sults for this TOTAL CDT procedure are i n the results section. documented in this encounter Results Vfjrz-1-gqbulaqjgwr total (11/09/2007 3:14 PM CDT) P athologist Signature Alpha 1 126 80 - 200 [place] Antitrypsin mg/dL Specimen Anatomical Collection Method Collection Time Receive d Time (Source) Location / / Volume Laterality 11/09/2007 3:14 PM 8 2:47 CDT PM CDT Alicia Velasquez MD LAB - BLOOD ORDERABLES Performing Organization Address City/State/ZIP Code Phon e Number MISYS (ABNORMAL) Comprehensive metabolic panel (11/09/2007 3:14 PM CDT) Analysis Performed At Patho logist Time Signature Sodium 141 133 - 144 [place] mmol/L Potassium 4.3 3.4 - 5.3 [place] mmol/L Chloride 104 94 - 109 [place] mmol/L Carbon Dioxide 24 20 - 32 [place] mmol/L Glucose 114 (H) 60 - 99 [place] mg/dL Urea Nitrogen 10 7 - 30 [place] mg/dL Creatinine 0.74 0.60 - [facility] 1.30 mg/dL GFR Estimate 88 >60 [facility] mL/min/1.7 m2 GFR Estimate If >90 >60 [facility] Black mL/min/1.7 m2 Calcium 9.5 8.5 - 10.4 [facility] mg/dL AST 30 0 - 45 U/L [facility] Protein Total 6.8 6.0 - 8.2 [facility] g/dL Anion Gap 13 6 - 17 [place] mmol/L Albumin 4.1 3.3 - 4.6 [place] g/dL ALT 17 0 - 50 U/L [facility] Alkaline 89 40 - 150 [place] Phosphatase U/L Bilirubin Total 0.3 0.2 - 1.3 [place] mg/dL Specimen Anatomical Collection Method Collection Time Receive d Time (Source) Location / / Volume Laterality 11/09/2007 3:14 PM 8 2:47 CDT PM CDT Alicia Velasquez MD LAB - BLOOD ORDERABLES Performing Organization Address [facility] Phon e Number MISYS Follicle stimulating hormone (11/09/2007 3:14 PM CDT) P athologist Signature FSH 4.7 IU/L [facility] Comment: FSH Reference Range Female: Follicular ?2.5-10.2 ? Mid-cycle ? 3.4-33.4 ? Luteal ?1.5-9. 1 ? Postmenopausal ??23.0-116.3 Specimen Anatomical Collection Method Collection Time Receive d Time (Source) Location / / Volume Laterality 11/09/2007 3:14 PM 8 2:47 CDT PM CDT Alicia Velasquez MD LAB - BLOOD ORDERABLES Performing Organization Address [facility] Phon e Number MISYS (ABNORMAL) WBC and differential (11/09/2007 3:14 PM CDT) Patholo gist Method Time Signature % Neutrophils 76 (H) 40 - 75 % MISYS % Lymphocytes 19 (L) 20 - 48 % MISYS % Monocytes 4 0 - 12 % MISYS % Eosinophils 1 0 - 6 % MISYS % Basophils 0 0 - 2 % [facility]IS[facility] Absolute 7.3 1.6 - 8.3 [facility] Neutrophil 10e9/L Absolute 1.8 0.8 - 5.3 [place] Lymphocytes 10e9/L Absolute 0.4 0.0 - 1.3 [facility] Monocytes 10e9/L Absolute 0.1 0.0 - 0.7 [facility] Eosinophils 10e9/L Absolute 0.0 0.0 - 0.2 M[facility] Basophils 10e9/L Diff Method Automated MISYS Method Specimen Anatomical Collection Method Collection Time Receive d Time (Source) Location / / Volume Laterality 11/09/2007 3:14 PM 8 2:47 CDT PM CDT Alicia Velasquez MD LAB - BLOOD ORDERABLES Performing Organization Address [facility] Phon e Number MISYS WBC count (11/09/2007 3:14 PM CDT) P athologist Signature WBC 9.5 4.0 - 11.0 MISYS 10e9/L Specimen Anatomical Collection Method Collection Time Receive d Time (Source) Location / / Volume Laterality 11/09/2007 3:14 PM 8 4:00 CDT PM CDT Alicia Velasquez MD LAB - BLOOD ORDERABLES Performing Organization Address City/State/ZIP Code Phon e Number MISYS documented in this encounter Visit Diagnoses Not on filedocumented in this encounter
--- OUTSIDE RECORDS SUMMARY | 2022-05-09 11:11 | XMS_ITS | Encounter Summary ---
:1955 Author Organization [place] Address [address] [facility] 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 No. Pain Eval Current history of pain associated with this visit is denied. Personal Hx Behavioral history: No tobacco use. Home environment: No secondhand tobacco smoke in home. Vital Signs Recorded by Lila Cardoso on 05 Nov 2008 02:46 PM BP:144/75, HR: 89 b/min, Height: 62 in, Weight: 210 lb, BMI: 38.4 kg/m2. Allergies Cipro TABS Darvocet-N 50 TABS Vicodin TABS. Current Meds Albuterol 90 MCG/ACT AERS;INHALE 1-2 PUFFS EVERY 4-6 HOURS NEEDED AND DIRECTED.; RPT Provigil 200 MG Tablet;TAKE 1 AND 1/2 TABLETS DAILY.; RPT EpiPen 2-Db 0.3 MG/0.3ML (1:1000) Device;INJECT 0.3ML INTRAMUSCULARLY DIRECTED.; Rx Lunesta 2 MG Tablet;TAKE 1 TABLET AT BEDTIME NEEDED.; RPT Requip 0.5 MG Tablet;TAKE 1 TABLET BEDTIME; RPT Zcexuqbp-GWN-2 0.1 MG/24HR Patch Weekly;APPLY 1 PATCH WEEKLY DIRECTED.; RPT Advair Diskus 500-50 MCG/DOSE Miscellaneous;USE ONE INHALATION TWICE A DAY; Rx AAA-MED RECONCILE;; RPT. Signature Electronically Signed By: Lila Cardoso RN; 11/05/2008 2:47 PM VIDEO SURVEILLANCE TECHNICIAN. documented in this encounter Plan of Treatment Upcoming Encounters Date Type Specialty Care Team Description 05/19/2022 Office Visit ENT Dima Hidalgo M D [address] [place], [place] [address] (Sarah pino) 08/02/2022 Office Visit Neurology Yair Campos MD [address] [facility] [place], [place] [phone] (Sarah pino) documented as of this encounter Visit Diagnoses Not on filedocumented in this encounter
--- OUTSIDE RECORDS SUMMARY | 2022-05-09 11:11 | XMS_ITS | Encounter Summary ---
:1955 Author Organization [place] Address [address] [facility] 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 She has been seen in the past for urticaria, angioedema, rhinitis and conjuctivitis. Her symptoms started about 4 years ago with hives and angioedema. This was constant until last March when the hives went away. She was last seen in October and at that time she was started on Singulair to better control her asthma. She is now having difficulties with feelings of choking, difficulty swallowing, increased swelling all over her body, shortness of breath, and chest tightness. She has increasedswelling of her face, eyes, feet, stomach, and various other places. She notices that she swells up over the course of a few hours and this goes away within a couple of days. This was happening once every three months or so, and within the last 4 weeks she has had the swelling almost constantly. Now the swelling is staying. She presented to the emergency room 1.5 weeks ago with difficulties breathing. She was given a 7 day course of oral steroids which helped her somewhat. She is having a sensation of severe pressure around her neck, in her ears, and around her face today. She is fatigued, dizzy and at times confused. She doesn't feel like herself, at times noting altered level of awareness. She notes that she is more fatigued with walking even short distances than she has been in the past. She saw her primary doctor last week for similar symptoms and was put on antibiotics with no relief. She was also told at that time to increase her albuterol nebulizer to 4 times per day. She has not noticedany specific triggers for her symptoms, but she has noticed at times that her swelling in her legs is pitting. Family History: uncle with throat narrowing, father and mother both had heart disease, mother had a history of angioedema, in her early 30s of a heart problem, both parents also had diabetes and hypertension. Social history: non-smoker, non-drinker, lives in a house with her mother, one small dog. 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 Advair 500-50 one puff twice per day 2. Albuterol 90mcg MDI 1-2 puffs every four hours at most as needed. This was increased to 4 nebulizers per day last week by Dr Lopez. 3. Catapress -TTS 0.1mg/24hours. Apply one patch weekly for hot flashes 4. EpiPen 0.3mg as needed for swelling 5. Lunesta 2mg at bedtime for sleep. She is not currently taking this medication. 6. Provigil 300mg per day. 7. Requip 0.5mg at bedtime. She was taking this for restless leg syndrome but she has not needed it recently. 8. Singulair 10mg once per day. Review of Systems: Constitutional: recent weight gain from fluid retention, hot flashes recently as well Head: see HPI Eyes: denies itching, discharge ENT: denies itching of eyes, ears or throat; she does have post-nasal drip Neck: see HPI Respiratory: see HPI Cardio: feelings of heart racing or skipping beats at times, she notices that at times her pulse is not correlated with her heart rate GI: nausea, vomiting, swelling of stomach, intermittant diarrhea with symptoms : increased volume of urination, increased frequency Heme/Lymph: denies bleeding or bruising difficulties Endocrine: cold causes pain Musculoskeletal: joint pain but not different than usual Neuro: more headaches recently Psych: she has been anxious lately and she does have a history of depression Physical Exam: Ht:62 Wt: 215 BP: 139/71 P: 81 Constitutional: talkative obese middle-aged female who seems to be alert but somewhat confused today Eyes: no redness or discharge, no edema today ENT: tympanic membranes visualized bilaterally, no swelling or discharge; nasal passages moist, no discharge; right side is slightly pink and swollen; throat clear, no swelling. Patient has a difficulttime opening her mouth today. Neck: no lymphadenopathy or thyromegaly Respiratory: lung sounds clear bilaterally, no wheezes or crackles Cardio: regular rate and rhythm today. I did not hear any rubs or murmurs today. Abdomen: obese, soft, non-tender. No hepatomegaly or splenomegaly. Musculoskekeletal: patient is able to ambulate from chair to table, but is slow Pulmonary Function Tests: Today: FVC:2.41, 77% of predicted FEV1:1.9, 77% of predicted FEV1/FVC: 79% Diffusion: 82% DLCOunc (ml/min/mmHg) Prior: 11/05/08: FVC 2.54, FEV1 1.9, FEV1/FVC: 75% 07/30/08: FVC 2.45, FEV1 1.8, FEV1/FVC: 73% 04/09/08: FVC 2.42, FEV1 1.81, FEV1/FVC: 75% 12/27/07: FVC 2.22, FEV1: 1.76, FEV1/FVC: 79% Previous Normal: IgG,A,M, and E, Thyroid tests, Liver function, CBC w/differential, Complement panel, angioedema studies, and pulmonary function tests, tryptase, ESR, AMARILIS screen, and hypersensitivity pneumonitis panel. Chest X ray and Chest CT significant in past for breast opacity (2006). Assessment: 1. Worsening shortness of breath and chest tightness with fluid retention 2. Minimal obstructive lung disease with decreased diffusion, previously treated as bronchial asthma 3. History of Chronic Idiopathic Urticaria 4. History of Angioedema 5. History of Rhinitis 6. History of GERD 7. History of Restless leg syndrome 8. History of Sleep Apnea 9. Depression 10. Hypertension Plan: 1. Lung function tests today including diffusion and box 2. Referral to cardiology for rule out of cardiac problems including congestive heart failure 3. Take Albuterol nebs only if she is having difficulties, check peak flow before and after using. 4. Continue Advair, discontinue Singulair 5. Labs today: Complete metabolic screen 6. Follow up with us after cardiology sees her. Note to Primary Physician: Dr Aleks Lopez. The above information was obtained by Yovana Combs, MS3 acting as a scribe for Dr Julius Ribera. The history, physical examiiniation, overall plan and diagnosis was obtained and discussed with the patient and scribe. We need to define the overall problem. Electronically signed by:Yovana Combs Feb 18 2009 2:56PM BICYCLE I ASSEMBLER Electronically signed by:Julius Ribera M.D. Feb 18 2009 4:38PM BICYCLE I ASSEMBLER documented in this encounter Plan of Treatment Upcoming Encounters Date Type Specialty Care Team Description 05/19/2022 Office Visit ENT Dima Hidalgo M D [address] [place], [place] [address] (Sarah pino) 08/02/2022 Office Visit Neurology Yair Campos MD [address] [place] [address] (Sarah pino) documented as of this encounter Visit Diagnoses Not on filedocumented in this encounter
--- OUTSIDE RECORDS SUMMARY | 2022-05-09 11:11 | XMS_ITS | Encounter Summary ---
:1955 Author Organization [place] Address [address] 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 CHIEF COMPLAINT: Stable chronic idiopathic hives, worsening shortness of breath, and persistent fluid retention and swelling of her body. HISTORY OF PRESENT ILLNESS: Patient is a pleasant 52-year-old female who returns for follow up of her chronic idiopathic urticaria and shortness of breath. She does have confirmed bronchial hyperreactivitiness from a previous methacholine challenge. She has been on low dose Advair with minimal benefit. She had an acute attack several weeks ago while outside. She required an emergency room visit where she was given a prednisone burst. She did not find that this helped immediately. She also is most bothered by her lack of endurance with exercise, her weight gain, and excessive fluid retention over her entire body. She states that she is not particularly stressed or has had any other major changes in her life. She is somewhat depressed given her medical situation. At her last visit in October, she was evaluated for alpha 1 antitrypsin given her family history of emphysema. This level was normal at 126. We also evaluated for kidney function and her electrolyte balance and that was all within normal limits. She had a creatinine of 0.74. She was also questioned whether this could be related to hormones. However, she is not currently in menopause and she had a normal FSH level at 4.7. Her blood counts as well have been all within normal limits. A TSH back in May 2007 was normal at 3.19and a hemogram last fall was also normal with no evidence of anemia. She also returns for further evaluation of her mild restrictive lung disease and mildly low diffusion lung capacity. PAST MEDICAL HISTORY: Significant for depression, gastroesophageal reflux, mild sleep apnea, and restless leg syndrome. PHYSICAL EXAMINATION: Her vitals were stable except for mildly elevated blood pressures of 150/81, heart rate 100, and her weight at 208 lb. HEENT are all within normal limits. Lungs are clear to auscultation. Abdomen is soft, obese. Skin is clear. STUDIES: Pulmonary function test revealed stable numbers without significant change with mild restriction of FVC of 2.22 at 68% of predicted, an FEV1 of 1.76 at 69% of predicted. The ratio is 74%. There was no significant bronchodilator reversibility. She had full lung volumes that showed a total lungcapacity of 82% that is within normal limits that does not suggest restrictive lung disease and there was no significant residual volume which goes along with air trapping. She continues to have mildlylow diffusion capacity at 67%. Feel at this time that there is no significant change from previous pulmonary function testing and that it may be more related to her body habitus. She has also had chestx-rays that show clear lung laughlin. ASSESSMENT: 1. Stable mild asthma. Stable chronic idiopathic urticaria. Gastroesophageal reflux disease. Obesity with fluid retention. PLAN: Discussed in length at today's visit that her mild bronchial hyperreactivitiness and asthma isstable. There has been no worsening in her lung volumes and her diffusion lung capacity remains mildly low. Recommend at this time to increase her Advair to 250/50 one puff twice daily to determine whether this will improve her episodes of shortness of breath. Her current regimen of Singulair, Zyrtec,and doxepin at night is controlling her outbreaks of hives. Her most worrisome symptom is the weight gain and fluid retention. Explained in detail that the lab results do not suggest any serious chronic illnesses. That this may be more related to deconditioningand lack of exercise. However, she is adamant that she is very careful in watching her diet and restricting her salt intake. Advised that she may need to further evaluate with her primary physician about her weight and fluid retention. In the meantime, will see her back in the next several months to assess her shortness of breath on the increased Advair. Alicia Velasquez M.D. Detector Car Operator [place] cc: Aleks Lopez MD [address] [place] [address] [place] [address] Electronically signed by:ALICIA VELASQUEZ M.D. Jan 10 2008 5:46PM ONION FARMER Alicia Islas - 12/27/2007 4:00 PM CDT Guard Chief: Alicia Velasquez Status: Final - Signature Encounter: 27 Dec 2007 Type: Allergy and Asthma Letter Pulmonary, Allergy and Critical Care Department of Medicine [place] Mail Code 572 [address] [place] [address] Office: [phone] Allergy and Asthma Clinic [facility] Fifth Floor, Clinic 5A [address] [place] [address] December 27, 2007 MD KEON Santa [address] [place] [address] [place] [address] RE: Becki Thomas : 1955 RODOLFO: 12/27/[address] Lopez: Thank you for allowing me to evaluate and treat your patient, Becki Thomas. She has been followed here for the last year for her chronic idiopathic hives and her mild asthma. I have enclosed her most recent clinic visit for your evaluation. Patient is most concerned about her weight gain and fluid retention as well as her increased shortness of breath. Please contact me with any further questions or concerns. Thank you again. Sincerely, Alicia Velasquez M.D. Detector Car Operator [place] December 26 visit note Electronically signed by:ALICIA VELASQUEZ M.D. Jan 10 2008 5:45PM ONION FARMER documented in this encounter Plan of Treatment Upcoming Encounters Date Type Specialty Care Team Description 05/19/2022 Office Visit ENT Dima Hidalgo M D [address] [facility] [address] [place], [place] [address] (Sarah pino) 08/02/2022 Office Visit Neurology Yair Campos MD [address] [place] [address] [place] [address] (Sarah pino) documented as of this encounter Visit Diagnoses Not on filedocumented in this encounter
--- OUTSIDE RECORDS SUMMARY | 2022-05-09 11:12 | XMS_ITS | Encounter Summary ---
:1955 Author Organization [place] Address [address] [facility] 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 HISTAMINE URINE Routine 02/22/2007 11:21 AM Resul ts for this CDT procedure are i n the results section. documented in this encounter Results Urinalysis collection volume & duration (02/22/2007 11:21 AM CDT) P athologist Signature Duration in 24.0 h MISYS hours Volume in mL 1730 mL MISYS Specimen Anatomical Collection Method Collection Time Receive d Time (Source) Location / / Volume Laterality 02/22/2007 11:21 02/22/2007 2:36 AM CDT PM CDT Julius Ribera MD LAB - URINE ORDERABLES Performing Organization Address City/[facility] Phon e Number MISYS Histamine urine (02/22/2007 11:21 AM CDT) athologist Signature Histamine 254 MISYS Urine/Volume Comment: Unit: nmol/L Histamine Urine/G Creatinine 314 M ISYS Comment: Reference range: 0 to 386 Unit: nmol/g (Note) TEST INFORMATION: ??Histamine, Urine nmo l/g creat This test uses a kit designated by the tia smith as for research use, not for clinical use. The performance characteristics of this test were valida deborah by [employer] The U.S. Food and Jamison g Administration (FDA) has not approved this test. The re sults are not intended to be used as the sole means fo r clinical diagnosis or patient management decision s. [employer] is authorized under Clinical Laboratory Imp rovement Amendments (CLIA) and by all states to p erform high- complexity testing. Creatinine For Histamine 24 H/Random Urine 81 MISYS Comment: Unit: mg/dL (Note) Performed by [employer], [address] [place] [id number] [email or web address], ??Davie Rodriguez MD - Lab. Director Specimen Anatomical Collection Method Collection Time Receive d Time (Source) Location / / Volume Laterality 02/22/2007 11:21 02/22/2007 2:36 AM CDT PM CDT Julius Ribera MD LAB - URINE ORDERABLES Performing Organization Address City/[facility]/ZIP Code Phon e Number MISYS documented in this encounter Visit Diagnoses Not on filedocumented in this encounter
--- OUTSIDE RECORDS SUMMARY | 2022-05-09 11:12 | XMS_ITS | Encounter Summary ---
:1955 Author Organization [place] Address [address] 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 documented in this encounter Results CHEST X-RAY 2 VW (03/02/2007 4:03 PM CDT) Anatomical Region Laterality Modality Other Specimen (Source) Anatomical Collection Method Collection Time Re ceived Time Location / / Volume Laterality 03/02/2007 4:03 PM CDT Impressions 03/05/2007 9:26 AM CDT Chest 2 views 03/02/2007 Comparison: None History: Dyspnea, abnormal PFTs Findings: There is a rounded nodular opacity at th e right cardiophrenic angle. May represent nodule or right inferior p ulmonary vein. The remainder of the lungs and costophrenic angles are clear. The cardiac silhouette and pulmonary vasculature are within nor mal limits. IMPRESSION: ?Nodular opacity at the right cardiophrenic angle. Consider chest CT for further evaluation . ??was notified of the abnormal resul t on 03/05/2007 at 0900 hours. I have personally reviewed the image and initial interpretation, and I agree with findings. Julius Ribera MD GENERAL IMAGING documented in this encounter Visit Diagnoses Not on filedocumented in this encounter
--- OUTSIDE RECORDS SUMMARY | 2022-05-09 11:12 | XMS_ITS | Encounter Summary ---
:1955 Author Organization [place] Address [address] [facility] 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 RHEUMATOID FACTOR Routine 04/26/2007 11:56 Result s for this AM CDT procedure are i n the results section. PLATELET COUNT Routine 04/26/2007 11:56 Results f or this AM CDT procedure are i n the results section. COMPREHENSIVE Routine 04/26/2007 11:56 Results fo r this METABOLIC PANEL AM CDT procedure ar e in the results section. documented in this encounter Results (ABNORMAL) Comprehensive metabolic panel (04/26/2007 11:56 AM CDT) Analysis Performed At [facility] logist Time Signature Sodium 138 133 - 144 MISYS mmol/L Potassium 3.9 3.4 - 5.3 MISYS mmol/L Chloride 107 94 - 109 MISYS mmol/L Carbon Dioxide 25 20 - 32 MISYS mmol/L Glucose 91 60 - 99 MISYS mg/dL Urea Nitrogen 5 (L) 7 - 30 MISYS mg/dL Creatinine 0.69 0.60 - MISYS 1.30 mg/dL GFR Estimate >90 >60 MISYS mL/min/1.7 m2 GFR Estimate If >90 >60 MISYS Black mL/min/1.7 m2 Calcium 8.3 (L) 8.5 - 10.4 MISYS mg/dL AST 30 0 - 45 U/L MISYS Protein Total 7.3 6.0 - 8.2 MISYS g/dL Anion Gap 6 6 - 17 MISYS mmol/L Albumin 3.9 3.3 - 4.6 MISYS g/dL ALT 21 0 - 50 U/L MISYS Alkaline 70 40 - 150 MISYS Phosphatase U/L Bilirubin Total 0.3 0.2 - 1.3 MISYS mg/dL Specimen Anatomical Collection Method Collection Time Receive d Time (Source) Location / / Volume Laterality 04/26/2007 11:56 04/26/2007 AM CDT 11:45 AM CDT Alicia Velasquez MD LAB - BLOOD ORDERABLES Performing Organization Address City/State/ZIP Code Phon e Number MISYS (ABNORMAL) Hemogram differential and platelet (04/26/2007 11:56 AM CDT) [facility] gist Method Time Signature MCV 79 78 - 100 MISYS fl MCH 26.1 (L) 26.5 - MISYS 33.0 pg MCHC 33.0 31.5 - MISYS 36.5 g/dL RDW 15.1 (H) 10.0 - MISYS 15.0 % WBC 6.2 4.0 - MISYS 11.0 10e9/L RBC Count 4.52 3.8 - 5.2 MISYS 10e12/L Hemoglobin 11.8 11.7 - MISYS 15.7 g/dL Hematocrit 35.7 35.0 - MISYS 47.0 % % Neutrophils 58 40 - 75 % MISYS % Lymphocytes 32 20 - 48 % MISYS % Monocytes 7 0 - 12 % MISYS % Eosinophils 3 0 - 6 % MISYS % Basophils 0 0 - 2 % MISYS Absolute 3.6 1.6 - 8.3 MISYS Neutrophil 10e9/L Absolute 2.0 0.8 - 5.3 MISYS Lymphocytes 10e9/L Absolute 0.4 0.0 - 1.3 MISYS Monocytes 10e9/L Absolute 0.2 0.0 - 0.7 MISYS Eosinophils 10e9/L Absolute 0.0 0.0 - 0.2 MISYS Basophils 10e9/L Diff Method Automated MISYS Method Specimen Anatomical Collection Method Collection Time Receive d Time (Source) Location / / Volume Laterality 04/26/2007 11:56 04/26/2007 AM CDT 11:45 AM CDT Alicia Velasquez MD LAB - BLOOD ORDERABLES Performing Organization Address City/State/ZIP [facility] Phon e Number MISYS Rheumatoid factor (04/26/2007 11:56 AM CDT) P athologist Signature Rheumatoid <20 0 - 20 MISYS Factor IU/mL Specimen Anatomical Collection Method Collection Time Receive d Time (Source) Location / / Volume Laterality 04/26/2007 11:56 04/26/2007 AM CDT 11:45 AM CDT Alicia Velasquez MD LAB - BLOOD ORDERABLES Performing Organization Address City/[facility]/ZIP Code Phon e Number MISYS Platelet count (04/26/2007 11:56 AM CDT) P athologist Signature Platelet Count 282 150 - 450 MISYS 10e9/L Specimen Anatomical Collection Method Collection Time Receive d Time (Source) Location / / Volume Laterality 04/26/2007 11:56 04/26/2007 AM CDT 12:14 PM CDT Alicia Velasquez MD LAB - BLOOD ORDERABLES Performing Organization Address City/State/ZIP Code Phon e Number MISYS documented in this encounter Visit Diagnoses Not on filedocumented in this encounter
--- OUTSIDE RECORDS SUMMARY | 2022-05-09 11:12 | XMS_ITS | Encounter Summary ---
:1955 Author Organization [place] Address [address] [facility] 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 documented in this encounter Results CT SCAN FACE, JAW (11/13/2006 2:53 PM CDT) Anatomical Region Laterality Modality Other Specimen (Source) Anatomical Collection Method Collection Time Re ceived Time Location / / Volume Laterality 11/13/2006 2:53 PM CDT Impressions 11/13/2006 3:[address] of the Paranasal Sinuses without cont rast History: ??Sinus pain ?? Comparison: ??None available. Technique: ??Axial thin section CT image s were obtained consecutively through the paranasal sinuses. The axial image source data were reformatted, and coronal images were obt ained. ??Images were reviewed in bone and soft tissue windows. Findings: ??There is minimal mucosal thi ckening along the floor of the right maxillar sinus, otherwise the para nasal sinuses are clear. The area of mucosal thickening is adjacent t o a tooth extraction site and may be related to the inflammatory aiken e secondary to this. The osteomeatal units bilaterally are patent . There are subtle calcifications along th e posterior retina bilaterally. Impression: 1. Minimal mucosal thickening along the floor of the right maxillary sinus directly adjacent to a tooth extra ction site. Otherwise the paranasal sinuses are clear. 2. Subtle calcifications along the poste rior retina bilaterally, differential would include optic drusen, but clinical examination should be considered. Julius Ribera MD SPECIAL IMAGING STUDIES documented in this encounter Visit Diagnoses Not on filedocumented in this encounter
--- OUTSIDE RECORDS SUMMARY | 2022-05-09 11:12 | XMS_ITS | Encounter Summary ---
:1955 Author Organization [place] Address [address] [facility] [place] [address] Care Team Providers Name Role Phone Unavailable Primary Care Provider Unavailable Encounter Details Date Type Department Care Team Description 03/21/2007 Results Only [facility] Phillip Ribera MD 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 documented in this encounter Results CT SCAN CHEST (03/21/2007 4:33 PM CDT) Anatomical Region Laterality Modality Other Specimen (Source) Anatomical Collection Method Collection Time Re ceived Time Location / / Volume Laterality 03/21/2007 4:33 PM CDT Impressions 03/22/2007 9:44 AM CDT Examination: ??CT CHEST W/O CONTRAST . S ep 2006 4:33:00 PM Indication: ??EVAL POSS NODULE SEEN ON P REV CHEST XRAY Comparison: Chest Xray on 03/02/2007. Findings: Chest: Clear lungs without pulmonary nodules. R ight costophrenic angles did not show the nodule , in the area of the suggested density in the prior chest radiograph dated 03/02/2007. There was prominent pericardial fat. No significant axillary or mediastinal l ymphadenopathy. Heart size is normal. Series 2, image 16: 3 mm calcific lesion in the right breast. Trachea and esophagus are normal. Abdomen: Limited view of the abdomen. Vi sualized portion of liver, spleen, kidney, adrenal glands are unrem arkable. No suspicious bony lesion seen in verteb ra, ribs. Impression: 1. Clear Lungs. 2. Small calcific lesion in right breast is nonspecific. Mammography may be useful if clinically indicated. I have personally reviewed the image and initial interpretation, and I agree with findings. Julius Ribera MD SPECIAL IMAGING STUDIES documented in this encounter Visit Diagnoses Not on filedocumented in this encounter
--- OUTSIDE RECORDS SUMMARY | 2022-05-09 11:12 | XMS_ITS | Encounter Summary ---
:1955 Author Organization [place] Address Replaced by [facility] 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 documented in this encounter Results Pulmonary function test procedure (03/28/2007 2:56 AM CDT) Component Value Ref Test Analysis Performed At [facility] Method Time Signature Pulmonary RADIOLOGY Function Test Name: ? BECKI MOORE ? ID: ?[id number] RESULTS Doctor: ?ISABELLA, MAL HECTOR ? Height: ? 62.00 in ? Age: ?52 Tech: ? NASI, MARY ?Weight: ? 178.00 lbs ?? Sex: ?Female Date: ?03/28/2007 ?Time: ??02:56:13 PM ? Race: ? <Unspecified> Secondary ID: PT ID: ? [id number] ?Doctor ID: Change Status: Diagnosis: ?ASTHMA Dyspnea: Cough: Wheeze: Yrs Quit: ? Pks/Day: Yrs Smk: ?Tbco Pr od: Post-Test Comments: ?? Good efforts; Albuterol x2 used as BD. ? PRE-BRONCH ?POST-BRONCH ? Actual ?Pred ?%Pred ??Actual ?? %Pred ? %Chng SPIROMETRY FVC (L) ?2.39 ?3.26 ? 73 ?2.52 ?77 ? 6 FEV1 (L) ? 1.98 ?2.57 ? 77 ?2.12 ?82 ? 7 FEV1/FVC (%) ? 83 ?80 ?104 ?84 ? 105 ? 1 FEF 25% (L/sec) ?6.34 ?4.96 ?128 ?7.31 ? 147 ?15 FEF 50% (L/sec) ?2.84 ?3.86 ? 74 ?3.28 ?85 ?16 FEF 75% (L/sec) ?0.77 ?1.39 ? 56 ?1.07 ?77 ?39 FEF 25-75% (L/sec) ? 2.10 ?2.57 ? 82 ?2.84 ? 110 ?35 FEF Max (L/sec) ?7.01 ?6.36 ?110 ?7.42 ? 117 ? 6 FIVC (L) ? 2.28 ? 2.25 ?-1 FIF 50% (L/sec) ?2.91 ?3.69 ? 79 ?2.87 ?78 ?-2 FIF Max (L/sec) ?3.88 ?4.10 ? 95 ?3.51 ?86 ?-9 Although the FEV1 and FVC are reduced, the FEV1/ FVC ratio is increased. ??The inspiratory flow rates are within normal limits. ??Following administration of bronchodilators, there is no significant response. IMPRESSION:(The PFT standard for spirometry has been c hanged as of (12/13/05) to NHANESIII, so the % predicted values might not correlat e to prior PFTs.) Minimal Airflow Obstruction This preliminary report should not be used clinically unless reviewed and signed by a physician. ADRIANNA GALEANA Specimen Anatomical Collection Method Collection Time Receive d Time (Source) Location / / Volume Laterality 03/28/2007 2:56 AM 7 CDT 10:37 AM CDT Transcripton Interface MD PFT ORDERABLES Performing Organization Address City/State/ZIP Code Phon e Number RADIOLOGY RESULTS documented in this encounter Visit Diagnoses Not on filedocumented in this encounter
--- OUTSIDE RECORDS SUMMARY | 2022-05-09 11:12 | XMS_ITS | Encounter Summary ---
:1955 Author Organization [place] Address [address] 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 documented in this encounter Results Ova and parasites (02/27/2007 4:00 PM CDT) [facility] gist Method Time Signature Specimen Feces MISYS Description Micro Report FINAL MISYS Status [id number] Parasite Pooled with MISYS Routine [id number] Comment: Routine O&P policy is to collect 2 stool specimens. Canceled, Test credited Specimen Anatomical Collection Method Collection Time Receive d Time (Source) Location / / Volume Laterality 02/27/2007 4:00 PM 7 7:14 CDT PM CDT Julius Ribera MD LAB - MICRO GENERAL ORDERABL ES Performing Organization Address City/State/ZIP Code Phon e Number MISYS documented in this encounter Visit Diagnoses Not on filedocumented in this encounter
--- OUTSIDE RECORDS SUMMARY | 2022-05-09 11:12 | XMS_ITS | Encounter Summary ---
:1955 Author Organization [place] Address [facility] 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 [place], [place] [address] (Wo rk) documented as of this encounter Procedures Procedure Name Priority Date/Time Associated Diagnosis Comme nts PFT GENERAL LAB Routine 02/14/2007 5:14 AM Result s for this TESTING CDT procedure are i n the results section. documented in this encounter Results Pulmonary function test procedure (02/14/2007 5:14 AM CDT) [facility] Method Time Signature Pulmonary RADIOLOGY Function Test Name: ? BECKI MOORE ? ID: ?[id number] RESULTS Doctor: ?ISABELLA, MAL HECTOR ? Height: ? 62.00 in ? Age: ?52 Tech: ? GIANLUCA, SHELL Y ? Weight: ? 176.00 lbs ?? Sex: ?Female Date: ?02/14/2007 ? Time: ??05:14:40 PM ? Race: ? <Unspecified> Secondary ID: PT ID: ? [id number] ?Doctor ID: Change Status: Diagnosis: ?ASTHMA, HX CHEMICAL EXPOSURE (') Dyspnea: Cough: Wheeze: Yrs Quit: ? Pks/Day: Yrs Smk: ?Tbco Pr od: Post-Test Comments: ?? GOOD EFFORT. ? PRE-BRONCH ?POST-BRONCH ? Actual ?Pred ?%Pred ??Actual ?? %Pred ? %Chng SPIROMETRY FVC (L) ?2.44 ?3.26 ? 75 FEV1 (L) ? 1.98 ?2.57 ? 77 FEV1/FVC (%) ? 81 ?80 ?102 FEF 25% (L/sec) ?6.15 ?4.96 ?1 24 FEF 50% (L/sec) ?2.83 ?3.86 ? 73 FEF 75% (L/sec) ?0.65 ?1.39 ? 47 FEF 25-75% (L/sec) ? 2.03 ?2.57 ? 79 FEF Max (L/sec) ?7.13 ?6.36 ?1 12 FIVC (L) ? 2.35 FIF 50% (L/sec) ?2.40 ?3.68 ? 65 FIF Max (L/sec) ?3.14 ?4.08 ? 77 The FEV1 and FVC are reduced but the FEV1/FVC ratio is fely l. This is suggestive of a mild restrictive ventilatory defect, however lung volumes would be necessary to confirm. The inspiratory flow rates ar e reduced. IMPRESSION: Mild restrictive ventilatory defect possible. This preliminary report should not be used clinically unless reviewed and signed by a physician. ADRIANNA GALEANA Specimen Anatomical Collection Method Collection Time Receive d Time (Source) Location / / Volume Laterality 02/14/2007 5:14 AM 7 7:25 CDT AM CDT Transcripton Interface MD PFT ORDERABLES Performing Organization Address City/State/ZIP Code Phon e Number RADIOLOGY RESULTS documented in this encounter Visit Diagnoses Not on filedocumented in this encounter
--- OUTSIDE RECORDS SUMMARY | 2022-05-09 11:12 | XMS_ITS | Encounter Summary ---
:1955 Author Organization [place] Address [facility] 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 documented in this encounter Results Pulmonary function test procedure (11/24/2006 11:45 AM CDT) [facility] Method Time Signature Pulmonary RADIOLOGY Function Test Name: ? BECKI MOORE ? ID: ?[id number] RESULTS Doctor: ?ISABELLA, MAL HECTOR ? Height: ? 62.00 in ? Age: ?51 Tech: ? NASI, MARY ?Weight: ? 186.00 lbs ?? Sex: ?Female Date: ?11/24/2006 ?Time: ??11:45:20 AM ? Race: ? <Unspecified> Secondary ID: PT ID: ? [id number] ? Doctor ID: Change Status: Diagnosis: ?CHEM. EXPOSURE Dyspnea: Cough: Wheeze: Yrs Quit: ? Pks/Day: Yrs Smk: ?Tbco Pr od: Post-Test Comments: ?Good efforts on FVL however, pt was unable to inhale > 85% of ?? VC- DLCO results may be erroneously low. ? PRE-BRONCH ?POST-BRONCH ? Actual ?Pred ?%Pred ??Actual ?? %Pred ? %Chng SPIROMETRY FVC (L) ?2.48 ?3.28 ? 76 FEV1 (L) ? 2.07 ?2.60 ? 79 FEV1/FVC (%) ? 83 ?80 ?104 FEF 25% (L/sec) ?6.63 ?4.99 ?1 33 FEF 50% (L/sec) ?2.83 ?3.89 ? 73 FEF 75% (L/sec) ?0.81 ?1.42 ? 57 FEF 25-75% (L/sec) ? 2.22 ?2.61 ? 85 FEF Max (L/sec) ?7.13 ?6.40 ?1 11 FIVC (L) ? 2.43 FIF 50% (L/sec) ?4.05 ?3.74 ?1 08 FIF Max (L/sec) ?4.07 ?4.14 ? 98 LUNG VOLUMES SVC (L) ?2.44 ?3.28 ? 74 IC (L) ? 2.36 ?2.10 ?112 ERV (L) ?0.08 ?1.18 ?7 TGV (L) ?1.59 ?2.65 ? 60 RV (Pleth) (L) ? 1.51 ?1.71 ? 88 TLC (Pleth) (L) ?3.95 ?4.75 ? 83 RV/TLC (Pleth) (%) ? 38 ?36 ?1 06 DIFFUSION DLCOunc ? 11.47 ?? 21.81 ? 53 DLCOcor ? 11.77 ?? 21.81 ? 54 DL/VA ?4.96 ?4.59 ?108 VA (L) ? 2.37 ?4.75 ? 50 BLOOD GASES Hgb (gm/dL) (gm/dL) ?12.6 ?? 12-18 Although the FEV1 and FVC are reduced, the FEV1/FVC ratio is increased. ??The inspiratory flow rates are within normal li mits. ??The reduced diffusing capacity indicates a moderate loss of func tional alveolar capillary surface. ??Maldistribution of ventilation is indicated by the difference between the alveolar volume and the total lung c apacity. Although there is airway obstruction and a diffusion defect suggesting emphysema, the absence of overinflation is inconsistent with that diagnosis. IMPRESSION:(The PFT standard for spirometry has been changed as of (12/13/05) to NHANESIII, so the % predicted values might not correlate to prior PFTs.) Moderate Diffusion Defect This preliminary report should not be used clinically unless reviewed and signed by a physician. ADRIANNA GALEANA Specimen Anatomical Collection Method Collection Time Receive d Time (Source) Location / / Volume Laterality 11/24/2006 11:45 11/24/2006 4:36 AM CDT PM CDT Transcripton Interface PFT ORDERABLES Performing Organization Address City/State/ZIP Code Phon e Number RADIOLOGY RESULTS documented in this encounter Visit Diagnoses Not on filedocumented in this encounter
--- OUTSIDE RECORDS SUMMARY | 2022-05-09 11:12 | XMS_ITS | Encounter Summary ---
:1955 Author Organization [facility] Address [address] 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 TSH Routine 11/13/2006 3:27 Results for this PM CDT procedure are i n the results section. TRYPTASE Routine 11/13/2006 3:27 Results for this PM CDT procedure are i n the results section. THYROID PEROXIDASE Routine 11/13/2006 3:27 Result s for this ANTIBODY PM CDT procedure are i n the results section. T4 FREE Routine 11/13/2006 3:27 Results for this PM CDT procedure are i n the results section. T3 TOTAL Routine 11/13/2006 3:27 Results for this PM CDT procedure are i n the results section. ROUTINE UA WITH Routine 11/13/2006 3:27 Results f or this MICROSCOPIC PM CDT procedure are i n the results section. PLATELET COUNT Routine 11/13/2006 3:27 Results fo r this PM CDT procedure are i n the results section. IMMUNOGLOBULINS A G AND Routine 11/13/2006 3:27 R esults for this M PM CDT procedure are i n the results section. IGE Routine 11/13/2006 3:27 Results for this PM CDT procedure are i n the results section. HEPATIC FUNCTION PANEL Routine 11/13/2006 3:27 Re sults for this PM CDT procedure are i n the results section. COMPLEMENT TOTAL Routine 11/13/2006 3:27 Results for this PM CDT procedure are i n the results section. COMPLEMENT COMPONENT 1Q Routine 11/13/2006 3:27 R esults for this PM CDT procedure are i n the results section. COMPLEMENT C4 Routine 11/13/2006 3:27 Results for this PM CDT procedure are i n the results section. COMPLEMENT C3 Routine 11/13/2006 3:27 Results for this PM CDT procedure are i n the results section. C1 ESTERASE INHIBITOR Routine 11/13/2006 3:27 Res ults for this TOTAL PM CDT procedure are i n the results section. C1 ESTERASE INHIBITOR Routine 11/13/2006 3:27 Res ults for this FUNCTIONAL PM CDT procedure are i n the results section. ANTINUCLEAR ANTIBODY Routine 11/13/2006 3:27 Resu lts for this SCREEN BY EIA PM CDT procedure are in the results section. ANTI THYROGLOBULIN Routine 11/13/2006 3:27 Result s for this ANTIBODY PM CDT procedure are i n the results section. documented in this encounter Results Anti thyroglobulin antibody (11/13/2006 3:27 PM CDT) Analysis Performed At Patho logist Time Signature Thyroglobulin <20 <40 IU/mL MISYS Antibody Specimen Anatomical Collection Method Collection Time Receive d Time (Source) Location / / Volume Laterality 11/13/2006 3:27 PM 7 3:12 CDT PM CDT Julius Ribera MD LAB - BLOOD ORDERABLES Performing Organization Address City/[facility]/ZIP Code Phon e Number MISYS Hepatic panel (11/13/2006 3:27 PM CDT) P athologist Signature AST 35 0 - 45 U/L MISYS Protein Total 6.6 6.0 - 8.2 MISYS g/dL Albumin 3.9 3.3 - 4.6 MISYS g/dL ALT 47 0 - 50 U/L MISYS Alkaline 77 40 - 150 MISYS Phosphatase U/L Bilirubin 0.0 0.0 - 0.3 MISYS Conjugated mg/dL Bilirubin Delta 0.0 0.0 - 0.4 MISYS mg/dL Bilirubin Total 0.3 0.2 - 1.3 MISYS mg/dL Specimen Anatomical Collection Method Collection Time Receive d Time (Source) Location / / Volume Laterality 11/13/2006 3:27 PM 7 3:12 CDT PM CDT Julius Ribera MD LAB - BLOOD ORDERABLES Performing Organization Address City/[facility] Phon e Number MISYS Complement component 1Q (11/13/2006 3:27 PM CDT) P athologist Signature Complement C1Q 6.4 MISYS Comment: Unit: mg/dL (Note) ? Reference Range: ? 5.0-8.6 Low levels of C1q indicate either increa sed consumption (catabolism) or decreased synthesis. The above test was performedat: [facility], [id number] [place] [id number] Specimen Anatomical Collection Method Collection Time Receive d Time (Source) Location / / Volume Laterality 11/13/2006 3:27 PM 7 3:12 CDT PM CDT Julius Ribera MD LAB - BLOOD ORDERABLES Performing Organization Address City/State/ZIP Code Phon e Number MISYS C1 Esterase inhibitor total (11/13/2006 3:27 PM CDT) athologist Signature [id number] MISYS Inhibitor Comment: Reference range: 21 to 39 Unit: mg/dL (Note) The performance characteristics of this test were validated by [employer]. The U.S. Food and Drug Administration (FDA) has not approv ed this test. The results are not intended to be used as the sole means for clinical diagnosis or patient manage ment decisions. [employer] is authorized under Clinical Labora tory Improvement Amendments (CLIA) and by all states to p erform high- complexity testing. The above test was performed at: [facility], [address] [place] [address], [facility] ??[id number] ?? ??[email or web address] Specimen Anatomical Collection Method Collection Time Receive d Time (Source) Location / / Volume Laterality 11/13/2006 3:27 PM 7 3:12 CDT PM CDT Julius Ribera MD LAB - BLOOD ORDERABLES Performing Organization Address City/State/RUST Code Phon e Number MISYS C1 esterase inhibitor functional (11/13/2006 3:27 PM CDT) athologist Signature [id number] MISYS Inhib Funct Comment: Unit: % (Note) REFERENCE INTERVAL: T-3-Cxqnfukg Inhib. Functional 68% or greater ........ Normal 41% - 67% ............. Indeterminate 40% or less ........... Abnormal The above test was performed at: [facility], [address],[facility] [place] ??[id number] ?? ??[email or web address] Specimen Anatomical Collection Method Collection Time Receive d Time (Source) Location / / Volume Laterality 11/13/2006 3:27 PM 7 3:12 CDT PM CDT Julius Ribera MD LAB - BLOOD ORDERABLES Performing Organization Address [facility] Phon e Number MISYS Complement C3 (11/13/2006 3:27 PM CDT) athologist Signature Complement C3 163 90 - 200 MISYS mg/dL Specimen Anatomical Collection Method Collection Time Receive d Time (Source) Location / / Volume Laterality 11/13/2006 3:27 PM 7 3:12 CDT PM CDT Julius Ribera MD LAB - BLOOD ORDERABLES Performing Organization Address [facility] Phon e Number MISYS Complement C4 (11/13/2006 3:27 PM CDT) athologist Signature Complement C4 23 15 - 50 MISYS mg/dL Specimen Anatomical Collection Method Collection Time Receive d Time (Source) Location / / Volume Laterality 11/13/2006 3:27 PM 7 3:12 CDT PM CDT Julius Ribera MD LAB - BLOOD ORDERABLES Performing Organization Address [facility] Phon e Number MISYS Complement total (11/13/2006 3:27 PM CDT) athologist Signature Complement CH50 119 MISYS Total Comment: Reference range: 60 to 144 Unit: (Note) REFERENCE INTERVAL: Complement Activity, Total EIA 59 Units or less .......... Low 60-144 Units .............. Normal 145 Units or greater ...... High The above test was performedat: [facility], [address] [place] [address] ??[id number] ?? ??[email or web address] Specimen Anatomical Collection Method Collection Time Receive d Time (Source) Location / / Volume Laterality 11/13/2006 3:27 PM 7 3:12 CDT PM CDT Julius Ribera MD LAB - BLOOD ORDERABLES Performing Organization Address [facility] Phon e Number MISYS Antinuclear antibody screen by EIA (11/13/2006 3:27 PM CDT) athologist Signature AMARILIS Screen by <1.0 MISYS EIA Comment: Interpretation: Negative Specimen Anatomical Collection Method Collection Time Receive d Time (Source) Location / / Volume Laterality 11/13/2006 3:27 PM 7 3:12 CDT PM CDT Julius Ribera MD LAB - BLOOD ORDERABLES Performing Organization Address City/[facility]/[place] Code Phon e Number MISYS T4 free (11/13/2006 3:27 PM CDT) P athologist Signature T4 Free 1.07 0.70 - 1.85 MISYS ng/dL Specimen Anatomical Collection Method Collection Time Receive d Time (Source) Location / / Volume Laterality 11/13/2006 3:27 PM 7 3:12 CDT PM CDT Julius Ribera MD LAB - BLOOD ORDERABLES Performing Organization Address City/State/RUST Code Phon e Number MISYS Hemogram differential and platelet (11/13/2006 3:27 PM CDT) [facility] gist Method Time Signature MCV 83 78 - 100 MISYS fl MCH 28.0 26.5 - MISYS 33.0 pg MCHC 33.7 31.5 - MISYS 36.5 g/dL RDW 14.8 10.0 - MISYS 15.0 % WBC 6.8 4.0 - MISYS 11.0 10e9/L RBC Count 4.51 3.8 - 5.2 MISYS 10e12/L Hemoglobin 12.6 11.7 - MISYS 15.7 g/dL Hematocrit 37.4 35.0 - MISYS 47.0 % % Neutrophils 58 40 - 75 % MISYS % Lymphocytes 34 20 - 48 % MISYS % Monocytes 5 0 - 12 % MISYS % Eosinophils 2 0 - 6 % MISYS % Basophils 1 0 - 2 % MISYS Absolute 4.0 1.6 - 8.3 MISYS Neutrophil 10e9/L Absolute 2.3 0.8 - 5.3 MISYS Lymphocytes 10e9/L Absolute 0.3 0.0 - 1.3 MISYS Monocytes 10e9/L Absolute 0.1 0.0 - 0.7 MISYS Eosinophils 10e9/L Absolute 0.1 0.0 - 0.2 MISYS Basophils 10e9/L Diff Method Automated MISYS Method Specimen Anatomical Collection Method Collection Time Receive d Time (Source) Location / / Volume Laterality 11/13/2006 3:27 PM 7 3:12 CDT PM CDT Julius Ribera MD LAB - BLOOD ORDERABLES Performing Organization Address City/State/ZIP Code Phon e Number MISYS IgE (11/13/2006 3:27 PM CDT) athologist Signature IGE 8 0 - 114 MISYS KIU/L Specimen Anatomical Collection Method Collection Time Receive d Time (Source) Location / / Volume Laterality 11/13/2006 3:27 PM 7 3:12 CDT PM CDT Julius Ribera MD LAB - BLOOD ORDERABLES Performing Organization Address City/[facility]/ZIP Code Phon e Number MISYS Immunoglobulins A G and M (11/13/2006 3:27 PM CDT) athologist Signature IGA 269 70 - 380 MISYS mg/dL IGG 823 695 - 1620 MISYS mg/dL IGM 97 60 - 265 MISYS mg/dL Specimen Anatomical Collection Method Collection Time Receive d Time (Source) Location / / Volume Laterality 11/13/2006 3:27 PM 7 3:12 CDT PM CDT Julius Ribera MD LAB - BLOOD ORDERABLES Performing Organization Address [facility]/RUST Code Phon e Number MISYS T3 total (11/13/2006 3:27 PM CDT) [facility] Method Time Signature Triiodothyronine 138 60 - 181 MISYS (T3) ng/dL Specimen Anatomical Collection Method Collection Time Receive d Time (Source) Location / / Volume Laterality 11/13/2006 3:27 PM 7 3:12 CDT PM CDT Julius Ribera MD LAB - BLOOD ORDERABLES Performing Organization Address City/[facility]/ZIP Code Phon e Number MISYS Thyroid peroxidase antibody (11/13/2006 3:27 PM CDT) athologist Signature Thyroid <10 <35 IU/mL MISYS Peroxidase Antibody Specimen Anatomical Collection Method Collection Time Receive d Time (Source) Location / / Volume Laterality 11/13/2006 3:27 PM 7 3:12 CDT PM CDT Julius Ribera MD LAB - BLOOD ORDERABLES Performing Organization Address [facility] Phon e Number MISYS Tryptase (11/13/2006 3:27 PM CDT) athologist Signature Tryptase 2.3 MISYS Comment: Reference range: 0.4 to 10.9 Unit: ug/L (Note) TEST INFORMATION: Tryptase This test uses a kit designated by the tia smith as for research use, not for clinical use. The performance characteristics of this test were valida deborah by [employer] The U.S. Food and Jamison g Administration (FDA) has not approved this test. The re sults are not intended to be used as the sole means fo r clinical diagnosis or patient management decision s. [facility] is authorized under Clinical Laboratory Imp rovement Amendments (CLIA) and by all states to p erform high- complexity testing. The above test was performed at: [address] ??[id number] ?? ??[email or web address] Specimen Anatomical Collection Method Collection Time Receive d Time (Source) Location / / Volume Laterality 11/13/2006 3:27 PM 7 3:12 CDT PM CDT Julius Ribera MD LAB - BLOOD ORDERABLES Performing Organization Address [facility] Phon e Number MISYS TSH (11/13/2006 3:27 PM CDT) athologist Signature TSH 3.12 0.4 - 5.0 MISYS mU/L Specimen Anatomical Collection Method Collection Time Receive d Time (Source) Location / / Volume Laterality 11/13/2006 3:27 PM 7 3:12 CDT PM CDT Julius Ribera MD LAB - BLOOD ORDERABLES Performing Organization Address [facility] Phon e Number MISYS (ABNORMAL) Routine UA with microscopic (11/13/2006 3:27 PM CDT) [facility] gist Method Time Signature Source Midstream MISYS Urine Color Urine Yellow MISYS Appearance Urine Clear MISYS Glucose Urine Negative NEG mg/dL MISYS Bilirubin Urine Negative NEG MISYS Ketones Urine Negative NEG mg/dL MISYS Specific [place] 1.017 1.003 - MISYS Urine 1.035 Blood Urine Negative NEG MISYS pH Urine 5.5 5.0 - 7.0 MISYS pH Protein Albumin Negative NEG mg/dL MISYS Urine Urobilinogen Normal 0.0 - 2.0 MISYS mg/dL mg/dL Nitrite Urine Negative NEG MISYS Leukocyte Negative NEG MISYS Esterase Urine WBC Urine <1 0 - 2 MISYS /HPF RBC Urine 0 0 - 2 MISYS /HPF Squamous 1 0 - 1 MISYS Epithelial /HPF /HPF Urine Transitional Epi <1 0 - 1 MISYS /HPF Mucous Urine Present (A) NEG /LPF MISYS Specimen Anatomical Collection Method Collection Time Receive d Time (Source) Location / / Volume Laterality 11/13/2006 3:27 PM 7 3:12 CDT PM CDT Julius Ribera MD LAB - URINE ORDERABLES Performing Organization Address City/[facility]/ZIP Code Phon e Number MISYS Platelet count (11/13/2006 3:27 PM CDT) P athologist Signature Platelet Count 315 150 - 450 MISYS 10e9/L Specimen Anatomical Collection Method Collection Time Receive d Time (Source) Location / / Volume Laterality 11/13/2006 3:27 PM 7 3:55 CDT PM CDT Julius Ribera MD LAB - BLOOD ORDERABLES Performing Organization Address City/State/RUST Code Phon e Number MISYS documented in this encounter Visit Diagnoses Not on filedocumented in this encounter
--- OUTSIDE RECORDS SUMMARY | 2022-05-09 11:12 | XMS_ITS | Encounter Summary ---
:1955 Author Organization [place] Address [address] [facility] [facility] [place] [address] Care Team Providers Name Role Phone Unavailable Primary Care Provider Unavailable Encounter Details Date Type Department Care Team Description 02/21/2007 Historic Results Allergy and Asthma Julius Ribera Phillips-Wangensteen MD Building XXX RESIGNED XXX 2nd Floor, Clinic [address] [place] [id number] [phone] Social History Tobacco Use Types Packs/Day Years Used Date Smoking Tobacco: Never Assessed Sex Assigned at Date Recorded Female 08/17/2018 10:39 PM [employer] documented as of this encounter Plan of Treatment Upcoming Encounters Date Type Specialty Care Team Description 05/19/2022 Office Visit ENT Dima [facility]idalgo M D [address] [facility] [place], [place] [address] (Wo rk) 08/02/2022 Office Visit Neurology Yair Campos MD [address] [place] [address] (Wo rk) documented as of this encounter Procedures Procedure Name Priority Date/Time Associated Comments Diagnosis HEMOGRAM DIFFERENTIAL Routine 02/21/2007 9:55 AM Results for this AND PLATELET CDT procedure are i n the results section. PLATELET COUNT Routine 02/21/2007 9:55 AM Results for this CDT procedure are i n the results section. ERYTHROCYTE Routine 02/21/2007 9:55 AM Results f or this SEDIMENTATION RATE CDT procedure are in AUTO the results section. HEMOGRAM DIFFERENTIAL Routine 02/21/2007 7:55 AM Results for this AND PLATELET CDT procedure are i n the results section. TRYPTASE Routine 02/21/2007 7:55 AM Results f or this CDT procedure are i n the results section. PLATELET COUNT Routine 02/21/2007 7:55 AM Results for this CDT procedure are i n the results section. IGE Routine 02/21/2007 7:55 AM Results f or this CDT procedure are i n the results section. ERYTHROCYTE Routine 02/21/2007 7:55 AM Results f or this SEDIMENTATION RATE CDT procedure are in AUTO the results section. COMPLEMENT TOTAL Routine 02/21/2007 7:55 AM Resul ts for this CDT procedure are i n the results section. COMPLEMENT C4 Routine 02/21/2007 7:55 AM Results for this CDT procedure are i n the results section. COMPLEMENT C3 Routine 02/21/2007 7:55 AM Results for this CDT procedure are i n the results section. ROUTINE UA WITH Routine 02/21/2007 7:45 AM Result s for this MICROSCOPIC CDT procedure are i n the results section. documented in this encounter Results Hemogram differential and platelet (02/21/2007 9:55 AM CDT) [facility] Method Time Signature MCV 80 78 - 100 MISYS fl MCH 27.4 26.5 - MISYS 33.0 pg MCHC 34.3 31.5 - MISYS 36.5 g/dL RDW 14.0 10.0 - MISYS 15.0 % WBC 7.8 4.0 - MISYS 11.0 10e9/L RBC Count 5.01 3.8 - 5.2 MISYS 10e12/L Hemoglobin 13.8 11.7 - MISYS 15.7 g/dL Hematocrit 40.1 35.0 - MISYS 47.0 % % Neutrophils 63 40 - 75 % MISYS % Lymphocytes 31 20 - 48 % MISYS % Monocytes 5 0 - 12 % MISYS % Eosinophils 1 0 - 6 % MISYS % Basophils 0 0 - 2 % MISYS Absolute 5.0 1.6 - 8.3 MISYS Neutrophil 10e9/L Absolute 2.4 0.8 - 5.3 MISYS Lymphocytes 10e9/L Absolute 0.4 0.0 - 1.3 MISYS Monocytes 10e9/L Absolute 0.1 0.0 - 0.7 MISYS Eosinophils 10e9/L Absolute 0.0 0.0 - 0.2 MISYS Basophils 10e9/L Diff Method Automated MISYS Method Specimen Anatomical Collection Method Collection Time Receive d Time (Source) Location / / Volume Laterality 02/21/2007 9:55 AM 7 9:49 CDT AM CDT Julius Ribera MD LAB - BLOOD ORDERABLES Performing Organization Address City/[facility] Phon e Number MISYS Erythrocyte sedimentation rate auto (02/21/2007 9:55 AM CDT) athologist Signature Sed Rate 8 0 - 30 mm/h MISYS Specimen Anatomical Collection Method Collection Time Receive d Time (Source) Location / / Volume Laterality 02/21/2007 9:55 AM 7 9:49 CDT AM CDT Julius Ribera MD LAB - BLOOD ORDERABLES Performing Organization Address [facility] Phon e Number MISYS Platelet count (02/21/2007 9:55 AM CDT) athologist Signature Platelet Count 354 150 - 450 MISYS 10e9/L Specimen Anatomical Collection Method Collection Time Receive d Time (Source) Location / / Volume Laterality 02/21/2007 9:55 AM 7 CDT 10:24 AM CDT Julius Ribera MD LAB - BLOOD ORDERABLES Performing Organization Address [facility] Phon e Number MISYS Complement C3 (02/21/2007 7:55 AM CDT) athologist Signature Complement C3 137 90 - 200 MISYS mg/dL Specimen Anatomical Collection Method Collection Time Receive d Time (Source) Location / / Volume Laterality 02/21/2007 7:55 AM 7 7:47 CDT AM CDT Julius Ribera MD LAB - BLOOD ORDERABLES Performing Organization Address [facility] Phon e Number MISYS Complement C4 (02/21/2007 7:55 AM CDT) athologist Signature Complement C4 21 15 - 50 MISYS mg/dL Specimen Anatomical Collection Method Collection Time Receive d Time (Source) Location / / Volume Laterality 02/21/2007 7:55 AM 7 7:47 CDT AM CDT Julius Ribera MD LAB - BLOOD ORDERABLES Performing Organization Address [facility] Code Phon e Number MISYS (ABNORMAL) Complement total (02/21/2007 7:55 AM CDT) athologist Signature Complement CH50 146 (H) MISYS Total Comment: Reference range: 60 to 144 Unit: (Note) REFERENCE INTERVAL: Complement Activity, Total EIA 59 Units or less .......... Low 60-144 Units .............. Normal 145 Units or greater ...... High Performed by [employer], [address] [place] [id number] [email or web address], ??Davie Rodriguez MD - Lab. Director Specimen Anatomical Collection Method Collection Time Receive d Time (Source) Location / / Volume Laterality 02/21/2007 7:55 AM 7 7:47 CDT AM CDT Julius Ribera MD LAB - BLOOD ORDERABLES Performing Organization Address [facility] Phon e Number MISYS Hemogram differential and platelet (02/21/2007 7:55 AM CDT) [facility] gist Method Time Signature MCV Unsatisfactory 78 - 100 MISYS specimen - clotted fl MCH Unsatisfactory 26.5 - MISYS specimen - clotted 33.0 pg MCHC Unsatisfactory 31.5 - MISYS specimen - clotted 36.5 g/dL RDW Unsatisfactory 10.0 - MISYS specimen - clotted 15.0 % WBC Unsatisfactory 4.0 - MISYS specimen - clotted 11.0 10e9/L Comment: CALLED TO IN ALL 02/21/07, 08: 50 BY 1129. RBC Count Unsatisfactory specimen - clotted 3.8 - 5.2 10e12/L MISYS Hemoglobin Unsatisfactory specimen - clotted 11.7 - 15.7 g/dL MISYS Hematocrit Unsatisfactory specimen - clotted 35.0 - 47.0 % MISYS Diff Method Unsatisfactory specimen - clotted MISYS Specimen Anatomical Collection Method Collection Time Receive d Time (Source) Location / / Volume Laterality 02/21/2007 7:55 AM 7 7:47 CDT AM CDT Julius Ribera MD LAB - BLOOD ORDERABLES Performing Organization Address [facility] Phon e Number MISYS IgE (02/21/2007 7:55 AM CDT) athologist Signature IGE 9 0 - 114 MISYS KIU/L Specimen Anatomical Collection Method Collection Time Receive d Time (Source) Location / / Volume Laterality 02/21/2007 7:55 AM 7 7:47 CDT AM CDT Julius Ribera MD LAB - BLOOD ORDERABLES Performing Organization Address [facility] Phon e Number MISYS Tryptase (02/21/2007 7:55 AM CDT) athologist Signature Tryptase 7.2 MISYS Comment: Reference range: 0.4 to 10.9 Unit: ug/L (Note) TEST INFORMATION: Tryptase This test uses a kit designated by the [facility] as for research use, not for clinical use. The performance characteristics of this test were valida deborah by [employer] The U.S. Food and Jamison g Administration (FDA) has not approved this test. The re sults are not intended to be used as the sole means fo r clinical diagnosis or patient management decision s. [employer] is authorized under Clinical Laboratory Imp rovement Amendments (CLIA) and by all states to p erform high- complexity testing. Performed by [employer], [address] [place] [id number] [email or web address], ??Davie Rodriguez MD - Lab. Director Specimen Anatomical Collection Method Collection Time Receive d Time (Source) Location / / Volume Laterality 02/21/2007 7:55 AM 7 7:47 CDT AM CDT Julius Ribera MD LAB - BLOOD ORDERABLES Performing Organization Address [facility] Phon e Number MISYS Erythrocyte sedimentation rate auto (02/21/2007 7:55 AM CDT) [facility] Method Time Signature Sed Rate Unsatisfactory 0 - 30 MISYS specimen - clotted mm/h Comment: CALLED TO LS IN ALL 02/21/07, 08: 50 BY 1129. Specimen Anatomical Collection Method Collection Time Receive d Time (Source) Location / / Volume Laterality 02/21/2007 7:55 AM 7 7:47 CDT AM CDT Julius Ribera MD LAB - BLOOD ORDERABLES Performing Organization Address City/State/ZIP [facility] Phon e Number MISYS Platelet count (02/21/2007 7:55 AM CDT) Component Value Ref Test Analysis Performed At [facility] Range Method Time Signature Platelet Unsatisfactory 150 - MISYS Count specimen - clotted 450 10e9/L Specimen Anatomical Collection Method Collection Time Receive d Time (Source) Location / / Volume Laterality 02/21/2007 7:55 AM 7 9:13 CDT AM CDT Julius Ribera MD LAB - BLOOD ORDERABLES Performing Organization Address City/State/[facility] Code Phon e Number MISYS (ABNORMAL) Routine UA with microscopic (02/21/2007 7:45 AM CDT) [facility] Method Time Signature Source Midstream MISYS Urine Color Urine Yellow MISYS Appearance Urine Clear MISYS Glucose Urine Negative NEG mg/dL MISYS Bilirubin Urine Negative NEG MISYS Ketones Urine Negative NEG mg/dL MISYS Specific [place] 1.016 1.003 - MISYS Urine 1.035 Blood Urine Negative NEG MISYS pH Urine 5.5 5.0 - 7.0 MISYS pH Protein Albumin Negative NEG mg/dL MISYS Urine Urobilinogen Normal 0.0 - 2.0 MISYS mg/dL mg/dL Nitrite Urine Negative NEG MISYS Leukocyte Negative NEG MISYS Esterase Urine WBC Urine <1 0 - 2 MISYS /HPF RBC Urine <1 0 - 2 MISYS /HPF Squamous 1 0 - 1 MISYS Epithelial /HPF /HPF Urine Transitional Epi <1 0 - 1 MISYS /HPF Mucous Urine Present (A) NEG /LPF MISYS Specimen Anatomical Collection Method Collection Time Receive d Time (Source) Location / / Volume Laterality 02/21/2007 7:45 AM 7 7:48 CDT AM CDT Julius Ribera MD LAB - URINE ORDERABLES Performing Organization Address City/State/ZIP Code Phon e Number MISYS documented in this encounter Visit Diagnoses Not on filedocumented in this encounter
--- OUTSIDE RECORDS SUMMARY | 2022-05-09 11:12 | XMS_ITS | Encounter Summary ---
:1955 Author Organization [place] Address [address] [facility] [place] [address] Care Team Providers Name Role Phone Unavailable Primary Care Provider Unavailable Encounter Details Date Type Department Care Team Description 03/02/2007 Historic Results Allergy and Asthma Julius Ribera Phillips-Wangensteen MD Building XXX RESIGNED XXX 2nd Floor, Clinic [address] [place] [id number] [phone] Social History Tobacco Use Types Packs/Day Years Used Date Smoking Tobacco: Never Assessed Sex Assigned at Date Recorded Female 08/17/2018 10:39 PM [employer] documented as of this encounter Plan of Treatment Upcoming Encounters Date Type Specialty Care Team Description 05/19/2022 Office Visit ENT Dima Hidalgo M D [address] [facility] [address] [place], [place] [address] (Wo rk) 08/02/2022 Office Visit Neurology Yair Campos MD [address] [place] [address] (Wo rk) documented as of this encounter Procedures Procedure Name Priority Date/Time Associated Comments Diagnosis HYPERSENSITIVITY Routine 03/02/2007 3:48 Results for this PNEUMONITIS PM CDT procedure are i n the results section. documented in this encounter Results Hypersensitivity pneumonitis (03/02/2007 3:48 PM CDT) [facility] Method Time Signature Aspergillus NONE DET MISYS Fumagatis 1 Antibody Comment: Reference range: NONE DET Aspergillus Fumagatis 6 Antibody NONE DET MISYS Comment: Reference range: NONE DET Aureo Pullulans NONE DET MISYS Comment: Reference range: NONE DET [place] serum NONE DET MISYS Comment: Reference range: NONE DET Micropolyspora Faeni NONE DET MISYS Comment: Reference range: NONE DET Thermoact Vulgaris 1 NONE DET MISYS Comment: Reference range: NONE DET (Note) Performed by [facility], [address] [place] [address], [place] [address] [email or web address], ??Davie Rodriguez MD - Lab. Director Specimen Anatomical Collection Method Collection Time Receive d Time (Source) Location / / Volume Laterality 03/02/2007 3:48 PM 7 3:44 CDT PM CDT Julius Ribera MD LAB - BLOOD ORDERABLES Performing Organization Address City/State/ZIP Code Phon e Number MISYS documented in this encounter Visit Diagnoses Not on filedocumented in this encounter
--- OUTSIDE RECORDS SUMMARY | 2022-05-09 11:12 | XMS_ITS | Encounter Summary ---
:1955 Author Organization [place] Address [address] 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 RPR SCREEN WITH REFLEX Routine 05/22/2007 4:25 PM Results for this TO CONFIRM APPEALS ANALYST procedure are i n the results section. HIV 1 AND 2 ANTIBODY Routine 05/22/2007 4:25 PM R esults for this (QUEST) APPEALS ANALYST procedure are i n the results section. HEPATITIS C ANTIBODY Routine 05/22/2007 4:25 PM R esults for this APPEALS ANALYST procedure are i n the results section. HEPATITIS B CORE Routine 05/22/2007 4:25 PM Resul ts for this ANTIBODY APPEALS ANALYST procedure are i n the results section. NEISSERIA GONORRHOEAE Routine 05/22/2007 2:30 PM Results for this PCR APPEALS ANALYST procedure are i n the results section. CHLAMYDIA TRACHOMATIS Routine 05/22/2007 2:30 PM Results for this PCR APPEALS ANALYST procedure are i n the results section. CYTOPATHOLOGY Routine 05/22/2007 12:00 Results fo r this AM APPEALS ANALYST procedure are i n the results section. MOLECULAR DIAGNOSTICS Routine 05/22/2007 12:00 Re sults for this AM APPEALS ANALYST procedure are i n the results section. documented in this encounter Results TSH (05/22/2007 4:25 PM APPEALS ANALYST) athologist Signature TSH 3.19 0.4 - 5.0 MISYS mU/L Specimen Anatomical Collection Method Collection Time Receive d Time (Source) Location / / Volume Laterality 05/22/2007 4:25 PM 7 4:15 APPEALS ANALYST PM APPEALS ANALYST Damian Tinoco LAB - BLOOD ORDERABLES Performing Organization Address City/[facility]/ZIP Code Phon e Number MISYS Hepatitis B core antibody (05/22/2007 4:25 PM APPEALS ANALYST) athologist Signature Hepatitis B Negative NEG MISYS Core Arlette Specimen Anatomical Collection Method Collection Time Receive d Time (Source) Location / / Volume Laterality 05/22/2007 4:25 PM 7 4:15 APPEALS ANALYST PM APPEALS ANALYST Damian Tinoco LAB - BLOOD ORDERABLES Performing Organization Address City/State/ZIP Code Phon e Number MISYS Hepatitis C antibody (05/22/2007 4:25 PM APPEALS ANALYST) athologist Signature Hepatitis C Negative NEG MISYS Antibody Specimen Anatomical Collection Method Collection Time Receive d Time (Source) Location / / Volume Laterality 05/22/2007 4:25 PM 7 4:15 APPEALS ANALYST PM APPEALS ANALYST Damian Tinoco LAB - BLOOD ORDERABLES Performing Organization Address City/State/ZIP Code Phon e Number MISYS HIV 1 and 2 Antibody (05/22/2007 4:25 PM APPEALS ANALYST) athologist Signature HIV 1&2 Negative NEG MISYS Antibody Specimen Anatomical Collection Method Collection Time Receive d Time (Source) Location / / Volume Laterality 05/22/2007 4:25 PM 7 4:15 APPEALS ANALYST PM APPEALS ANALYST Damian Tinoco LAB - BLOOD ORDERABLES Performing Organization Address [facility] Phon e Number MISYS RPR screen with reflex to confirm (05/22/2007 4:25 PM APPEALS ANALYST) athologist Signature Rapid Plasma Negative NEG MISYS Reagin Specimen Anatomical Collection Method Collection Time Receive d Time (Source) Location / / Volume Laterality 05/22/2007 4:25 PM 7 4:15 APPEALS ANALYST PM APPEALS ANALYST Damian Tinoco LAB - BLOOD ORDERABLES Performing Organization Address [facility] Phon e Number MISYS Chlamydia trachomatis PCR (05/22/2007 2:30 PM APPEALS ANALYST) Component Value Ref Test Analysis Performed At [facility] Method Time Signature Specimen Cervix MISYS Description Chlamydia Negative for C. MISYS Trachomatis PCR trachomatis rRNA by bus boy mediated amplification. Comment: A negative result by bus boy medi ated amplification does not preclude the presence of C. trachomatis infection be cause results are dependent on proper and adequate collection, absence of inh ibitors, and sufficient rRNA to be detected. Specimen Anatomical Collection Method Collection Time Receive d Time (Source) Location / / Volume Laterality 05/22/2007 2:30 PM 7 6:43 APPEALS ANALYST PM APPEALS ANALYST Diaz Singh MD LAB - MICRO GENERAL ORDER CHAI Performing Organization Address [facility] Phon e Number MISYS Neisseria gonorrhoeae PCR (05/22/2007 2:30 PM APPEALS ANALYST) [facility] Method Time Signature Specimen Cervix MISYS Descrip N Gonorrhea Negative for N. MISYS PCR gonorrhoeae rRNA by bus boy mediated amplification. Comment: A negative result by bus boy medi ated amplification does not preclude the presence of N. gonorrhoeae infection be cause results are dependent on proper and adequate collection, absence of inh ibitors, and sufficient rRNA to be detected. Specimen Anatomical Collection Method Collection Time Receive d Time (Source) Location / / Volume Laterality 05/22/2007 2:30 PM 7 6:43 APPEALS ANALYST PM APPEALS ANALYST Diaz Singh MD LAB - MICRO GENERAL ORDER CHAI Performing Organization Address City/State/ZIP Code Phon e Number ADIAYS Cytopathology (05/22/2007 12:00 AM APPEALS ANALYST) Component Value Ref Test Analysis Performed At [facility] Method Time Signature Copath Report CASE: [id number] ^ COPATH PAP ?ASC-US Patient Name: BECKI MOORE MR#: [id number] Specimen #: [id number] Collected: 05/22/2007 Received: 05/23/2007 Reported: 05/25/2007 09:41 Ordering Phy(s): DIAZ SINGH SPECIMEN/STAIN PROCESS: Pap thin layer prep screening ([facility]) ? Pap-Cyto x 1, Reflex HPV x 1 SOURCE: cervical, vaginal ---- Pap thin layer prep screening ([facility]) SPECIMEN ADEQUACY: Satisfactory for evaluation. -Transformation zone component present. -LMP not provided on specimen requisition. CYTOLOGIC INTERPRETATION: Epithelial Cell Abnormality: ??Squamous Cell: ??Atypical squ amous cells-of undetermined significance (ASC-US). ? Other Non-Neoplastic Findings: -Endometrial cells present. -Endometrial cells after age ??40, particularly out of phase or after menopause, may be associated with benign endometrium, hormon al alterations, and less commonly, endometrial abnormalities. Electronically signed out by: Glen Lehman M.D., Physicians Processed and screened at [facility] CLINICAL HISTORY: TESTING LAB LOCATION: [facility], [address] ??[phone] COLLECTION SITE: Client: ??[facility] Location: [facility] (B) Specimen (Source) Anatomical Collection Method Collection Time Re ceived Time Location / / Volume Laterality 05/22/2007 05/25/2007 9:41 AM APPEALS ANALYST Diaz Singh MD LAB - [facility] SPECIAL DIAG ORDERABLES Performing Organization Address City/State/ZIP Code Phon e Number [facility] Molecular Diagnostics (05/22/2007 12:00 AM APPEALS ANALYST) Component Value Ref Test Analysis Performed At [facility] Method Time Signature Copath Report CASE: [id number] ^ COPATH Patient Name: BECKI MOORE MR#: [id number] Specimen #: [id number] Collected: 05/22/2007 00:00 Received: 05/29/2007 09:39 Reported: 06/01/2007 17:40 Ordering Phy(s): DAMIAN TINOCO TEST(S) REQUESTED: A: Human Papillomavirus Screen Analysis B: Human Papillomavirus Molecular Genotyping Electrophoresis Analysis SPECIMEN DESCRIPTION: Cervical Cells CLINICAL COMMENTS: Patient with a diagnosis of ASC-US ICD-9:795.01 METHODOLOGY: ??Total cellular DNA was extracted from the abo ve specimen and up to 1 ug subjected to DNA amplification with a series of oligonucleotide primers directed to the L1 region of the hum an papillomavirus genome. ??The resultingDNA fragments were the n digested with a series of restriction endonuclease enzymes before tato ng on 6% polyacrylamide gels, stained with ethidium bromide and photographed. ??The resulting pattern of bands corresponding to the digested DNAproducts were interpreted according to the corre sponding HPV DNA controls. ??Amplification of a segment of the beta g lobin gene serves as an internal control of DNA amplification. RESULTS: HPV DNA (L1 region) ?POSITIVE INTERPRETATION: This patient' s sample is positive for HPV 53 DNA. COMMENTS: HPV 53 has generally been regarded as a low risk type for th e development of cervical dysplasia, a study has defined HPV 5 3 as a probable high risk type [Maury (2003) New Engl J Med 348(1) 084-061]. Therefore, close clinical follow-up is recommended. Electronically Signed Out By: Sea Werner M.D., Ph.D. Landy Johnson, Ph.D. [employer], Molecular Diagnostics Laboratory This test was developed and its performance determined by trae velazquez [facility] Molecular Diagnostic Laboratory. ??It has not been cleared o r approved by the U.S. Food and Drug Administration. ??The FDA has determi gali that such clearance or approval is not necessary. ??Pursuant to the re quirements of CLIA' 88, this laboratory has established and verified the t est' s accuracy and precision. ??This test is used for clinical pur poses. TESTING LAB LOCATION: [place] [id number] [id number] COLLECTION SITE: Client: ??[facility] Location: ??[facility] (B) Specimen (Source) Anatomical Collection Method Collection Time Re ceived Time Location / / Volume Laterality 05/22/2007 06/01/2007 5:40 PM APPEALS ANALYST Damian Tinoco LAB - [facility] SPECIAL DIAG OR DERABLES Performing Organization Address City/State/ZIP Code Phon e Number [facility] documented in this encounter Visit Diagnoses Not on filedocumented in this encounter
--- OUTSIDE RECORDS SUMMARY | 2022-05-09 11:12 | XMS_ITS | Encounter Summary ---
:1955 Author Organization [place] Address [address] [facility] 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 documented in this encounter Results Ova and parasites (02/25/2007 2:30 PM CDT) Component Value Ref Test Analysis Performed At [facility] gist Range Method Time Signature Specimen Feces MISYS Description Micro Report FINAL [id number] MISYS Status Parasite Routine MISYS Routine parasitology exam negative Comment: Specimen received in preservative Pooled with [id number] Specimen Anatomical Collection Method Collection Time Receive d Time (Source) Location / / Volume Laterality 02/25/2007 2:30 PM 7 7:13 CDT PM CDT Julius Ribera MD LAB - MICRO GENERAL ORDERABL ES Performing Organization Address City/State/ZIP Code Phon e Number MISYS documented in this encounter Visit Diagnoses Not on filedocumented in this encounter
--- OUTSIDE RECORDS SUMMARY | 2022-05-09 11:12 | XMS_ITS | Encounter Summary ---
:1955 Author Organization [place] Address [facility] 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 documented in this encounter Results Pulmonary function test procedure (11/08/2006 1:04 AM CDT) [facility] Method Time Signature Pulmonary RADIOLOGY Function Test Name: ? BECKI MOORE ? ID: ?[id number] RESULTS Doctor: ?ISABELLA, MAL HECTOR ? Height: ? 62.00 in ? Age: ?51 Tech: ? JAIRO BONDS ? Weight: ? 186.00 lbs ?? Sex: ?Female Date: ?11/08/2006 ?Time: ??01:04:47 PM ? Race: ? <Unspecified> Secondary ID: PT ID: ? [id number] ? Doctor ID: Change Status: Diagnosis: ?ASTHMA; CHEMICAL EXPOSURE Dyspnea: ?On hills and stairs Cough: Wheeze: Yrs Quit: ? Pks/Day: Yrs Smk: ?Tbco Pr od: Post-Test Comments: ?? GOOD EFFORT ? PRE-BRONCH ?POST-BRONCH ? Actual ?Pred ?%Pred ??Actual ?? %Pred ? %Chng SPIROMETRY FVC (L) ?2.67 ?3.28 ? 81 FEV1 (L) ? 2.14 ?2.60 ? 82 FEV1/FVC (%) ? 80 ?80 ?100 FEF 25% (L/sec) ?6.81 ?4.99 ?1 36 FEF 50% (L/sec) ?2.69 ?3.89 ? 69 FEF 75% (L/sec) ?0.56 ?1.42 ? 40 FEF 25-75% (L/sec) ? 1.93 ?2.61 ? 74 FEF Max (L/sec) ?7.77 ?6.40 ?1 21 FIVC (L) ? 2.48 FIF 50% (L/sec) ?4.58 ?3.74 ?1 22 FIF Max (L/sec) ?4.88 ?4.14 ?1 18 The FVC, FEV1, FEV1/FVC ratio and XZW40-37% are within fely l limits. The inspiratory flow rates are within normal limits. IMPRESSION:(The PFT standard for spirometry has been changed as of (12/13/05) to NHANESIII, so the % predicted values might not correlate to prior PFTs.) Spirometry is within normal limits. This preliminary report should not be used clinically unless reviewed and signed by a physician. ADRIANNA GALEANA Specimen Anatomical Collection Method Collection Time Receive d Time (Source) Location / / Volume Laterality 11/08/2006 1:04 AM 7 4:46 CDT PM CDT Transcripton Interface PFT ORDERABLES Performing Organization Address City/State/ZIP Code Phon e Number RADIOLOGY RESULTS documented in this encounter Visit Diagnoses Not on filedocumented in this encounter
--- OUTSIDE RECORDS SUMMARY | 2022-05-09 11:12 | XMS_ITS | Encounter Summary ---
:1955 Author Organization [place] Address [address] [facility] 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 documented in this encounter Results Ova and parasites (02/23/2007 9:30 AM CDT) Component Value Ref Test Analysis Performed At [facility] gist Range Method Time Signature Specimen Feces MISYS Description Micro Report FINAL [id number] MISYS Status Parasite Routine MISYS Routine parasitology exam negative Comment: Specimen received in preservati ve Specimen Anatomical Collection Method Collection Time Receive d Time (Source) Location / / Volume Laterality 02/23/2007 9:30 AM 7 7:11 CDT PM CDT Julius Ribera MD LAB - MICRO GENERAL ORDERABL ES Performing Organization Address City/State/ZIP Code Phon e Number MISYS documented in this encounter Visit Diagnoses Not on filedocumented in this encounter
--- OUTSIDE RECORDS SUMMARY | 2022-05-09 11:12 | XMS_ITS | Encounter Summary ---
:1955 Author Organization [place] Address [facility] 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 documented in this encounter Results Pulmonary function test procedure (04/26/2007 9:25 AM CDT) Component Value Ref Test Analysis Performed At [facility] Method Time Signature Pulmonary RADIOLOGY Function Test Name: ? BECKI MOORE ? ID: ?[id number] RESULTS Doctor: ?ALICIA VELASQUEZ ? Height: ? 62.00 in ? Age: ?52 Tech: ? NASI, MARY ?Weight: ? 185.00 lbs ?? Sex: ?Female Date: ?04/26/2007 ? Time: ??09:25:23 AM ? Race: ? <Unspecified> Secondary ID: PT ID: ? [id number] ?Doctor ID: Change Status: Diagnosis: ?ASTHMA Dyspnea: Cough: Wheeze: Yrs Quit: ? Pks/Day: Yrs Smk: ?Tbco Pr od: Post-Test Comments: ?? Good efforts; 2.5mg Albuterol given as BD. ? PRE-BRONCH ?POST-BRONCH ? Actual ?Pred ?%Pred ??Actual ?? %Pred ? %Chng SPIROMETRY FVC (L) ? *2.37 ?3.26 ?*73 ?? *2.45 ? *75 ? 3 FEV1 (L) ?*1.98 ?2.57 ?*77 ?? *2.09 ? *81 ? 5 FEV1/FVC (%) ? 84 ?80 ?105 ?85 ? 107 ? 2 FEF 25% (L/sec) ? *6.50 ?4.96 ? *131 ?? *7.71 ?*155 ?19 FEF 50% (L/sec) ? *2.95 ?3.86 ?*76 ?3.46 ?90 ?18 FEF 75% (L/sec) ? *0.87 ?1.39 ?*63 ?? *1.07 ? *77 ?23 FEF 25-75% (L/sec) ? 2.32 ?2.57 ? 90 ?2.80 ? 109 ?20 FEF Max (L/sec) ?7.23 ?6.36 ?114 ?? *7.79 ?*123 ? 8 FIVC (L) ? 2.21 ? 2.39 ? 8 FIF 50% (L/sec) ?3.39 ?3.72 ? 91 ?3.64 ?98 ? 7 FIF Max (L/sec) ?3.80 ?4.13 ? 92 ?3.88 ?94 ? 2 Although the FEV1 and FVC are reduced, the FEV1/ FVC ratio is increased. ??The inspiratory flow rates are within normal limits. ??Following administration of bronchodilators, there is no significant response. IMPRESSION:(The PFT standard for spirometry has been c hanged as of (12/13/05) to NHANESIII, so the % predicted values might not correlat e to prior PFTs.) Restriction possible M.D. Alicia Velasquez Specimen Anatomical Collection Method Collection Time Receive d Time (Source) Location / / Volume Laterality 04/26/2007 9:25 AM 7 3:11 CDT PM CDT Transcripton Interface MD PFT ORDERABLES Performing Organization Address City/State/ZIP Code Phon e Number RADIOLOGY RESULTS documented in this encounter Visit Diagnoses Not on filedocumented in this encounter
--- OUTSIDE RECORDS SUMMARY | 2022-05-09 11:12 | XMS_ITS | Encounter Summary ---
:1955 Author Organization [place] Address [address] [facility] [place] [address] Care Team Providers Name Role Phone Unavailable Primary Care Provider Unavailable Encounter Details Date Type Department Care Team Description 02/08/2007 Historic Results Allergy and Asthma Julius Ribera Phillips-Wangensteen MD Building XXX RESIGNED XXX 2nd Floor, Clinic [address]A [address] [place] [phone] Social History Tobacco Use Types Packs/Day Years Used Date Smoking Tobacco: Never Assessed Sex Assigned at Date Recorded Female 08/17/2018 10:39 PM PACKAGE PICK UP documented as of this encounter Plan of Treatment Upcoming Encounters Date Type Specialty Care Team Description 05/19/2022 Office Visit ENT Dima Hidalgo M D [address] [facility] [place], [place] [address] (Wo rk) 08/02/2022 Office Visit Neurology Yair Campos MD [address] [place] [address] (Wo rk) documented as of this encounter Procedures Procedure Name Priority Date/Time Associated Comments Diagnosis URINALYSIS Routine 02/08/2007 1:30 PM Results f or this COLLECTION VOLUME & CDT procedur e are in DURATION the results section. HISTAMINE URINE Routine 02/08/2007 1:30 PM Result s for this CDT procedure are i n the results section. documented in this encounter Results Urinalysis collection volume & duration (02/08/2007 1:30 PM CDT) athologist Signature Duration in 24.0 h MISYS hours Volume in mL 1110 mL MISYS Specimen Anatomical Collection Method Collection Time Receive d Time (Source) Location / / Volume Laterality 02/08/2007 1:30 PM 7 7:09 CDT PM CDT Julius Ribera MD LAB - URINE ORDERABLES Performing Organization Address City/[facility] Code Phon e Number MISYS (ABNORMAL) Histamine urine (02/08/2007 1:30 PM CDT) athologist Signature Histamine 649 MISYS Urine/Volume Comment: Unit: nmol/L Histamine Urine/G Creatinine 541 (H) M ISYS Comment: Reference range: 0 to 386 Unit: nmol/g (Note) TEST INFORMATION: ??Histamine, Urine nmo l/g creat This test uses a kit designated by the tia smith as for research use, not for clinical use. The performance characteristics of this test were valida deborah by [employer] The U.S. Food and Jamison g Administration (FDA) has not approved this test. The re sults are not intended to be used as the sole means fo r clinical diagnosis or patient management decision s. [employer] is authorized under Clinical Laboratory Imp rovement Amendments (CLIA) and by all states to p erform high- complexity testing. Creatinine For Histamine 24 H/Random Urine 120 MISYS Comment: Unit: mg/dL (Note) Performed by [employer], [address] [place] [id number] [email or web address], ??Davie Rodriguez MD - Lab. Director Specimen Anatomical Collection Method Collection Time Receive d Time (Source) Location / / Volume Laterality 02/08/2007 1:30 PM 7 7:09 CDT PM CDT Juluis Ribera MD LAB - URINE ORDERABLES Performing Organization Address City/[facility]/ZIP Code Phon e Number MISYS documented in this encounter Visit Diagnoses Not on filedocumented in this encounter
--- OUTSIDE RECORDS SUMMARY | 2022-05-09 11:15 | XMS_ITS ---
:1955 Author Care Team Providers Name Role Phone ANDRE JETER Primary Care Provider [phone] [facility] Primary Care Provider [phone] Allergies Code Code System Name Reaction Severity Status Onset NKDA ? Medications Name Status Start Date Stop Date ? ? amoxicillin 875 mg-potassium clavulanate 125 mg tablet Completed ? 08/23/2021 buspirone 10 mg tablet Active ? Not avail able cephalexin 500 mg capsule Completed ? 2020 FreeStyle Miriam 2 Sensor kit Active ? Not available USE 1 SENSOR DIRECTED CHANGING EVERY 14 DAYS glipizide ER 10 mg tablet, extended release 24 hr Active ? Not available TAKE 2 TABS ONCE DAILY IN THE MORNING W ITH BREAKFAST. APPT NEEDED FOR FUTURE REFILLS. glipizide ER 2.5 mg 24 hr tablet,extended release Active ? Not available 5mg 2/day glipizide ER 5 mg tablet, extended release 24 hr Completed ? 06/16/2021 indomethacin 25 mg capsule Active ? Not a vailable TAKE 1 CAPSULE 30-60 MINUTES PRIOR TO E XERCISE WITH FOOD OF MILK TO LESSEN STOMACH IRRITATION levocetirizine 5 mg tablet Active ? Not a vailable levothyroxine 100 mcg tablet Active ? Not available levothyroxine 50 mcg tablet Completed ? 07/2020 levothyroxine 75 mcg tablet Completed ? 07/2020 metformin ER 500 mg tablet,extended release 24 hr Completed ? 08/23/2021 prednisone 20 mg tablet Completed ? 06/16/20 rosuvastatin 10 mg tablet Active ? Not av ailable TAKE 1 TABLET BY MOUTH EVERY DAY tramadol 50 mg tablet Active ? Not availa ble valacyclovir 1 gram tablet Active ? Not a vailable Problems Name Status Onset Date Source ? Diabetes Mellitus Active ? ? Hypercholesterolemia Active ? ? Depressive Disorder Active ? ? Disorder of Lung Active ? ? Gastroesophageal Reflux Disease Active ? ? Procedures Date Name Performed by ? 07/18/2015 Diagnostic Colonoscopy Information not a vailable Notes: Colonoscopy 06/16/2021 CT, Urogram [facility] [address] [facility] [address] [place] [address] (Work Place) Results Lab Results Date Name Specimen Result Interpretation Description Value Range Status Address ? 08/23/2021 Urinalysis, UR ? Color yellow yellow Final [place] Dipstick [facility]: [address] [address], [place] ? ? UR ? Appearance clear clear Final [place] [facility]: [address] [address], [place] ? ? UR ? Glucose negative negative Final [place] [facility] mg/dL mg/dL [facility]: [address] [address], [place] ? ? UR ? Bilirubin negative negative Final [place] [facility]: [address] [facility] [address], [place] ? ? UR ? Ketones negative negative Final [place] [facility] mg/dL mg/dL [facility]: [address] [facility] [address], [place] ? ? UR ? Sp. Marcus >=1.030 1.010-1.0 Final [place] [facility] 25 [facility]: [address] [address], [place] ? ? UR ? pH -[facility] 5.0 5.0-8.0 Final [place] [facility]: [address] [facility] [address], [place] ? ? UR ? Protein negative negative Final [place] [facility] mg/dL mg/dL [facility]: [address] [address], [place] ? ? UR ? Urobilinogen 0.2 normal Final [place] [facility]: [address] [address], [place] ? ? UR ? Nitrites negative negative Final [place] [facility]: [address] [address], [place] ? ? UR ? 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 ? UR ? Leukocytes negative negative Final [place] [facility]: [address] [address], [place] ? ? UR ? Performed by viviane Washington ? Final [place] [facility]: [address] [address], [place] ? ? UR ? Total Urine 60 /mL ? Final [place] Volume (mL) [facility]: [address] 06/16/2021 Urinalysis, UR ? Color yellow yellow Final [place] Dipstick [facility]: [address] [address], [place] ? ? UR ? Appearance clear clear Final [place] [facility]: [address] [address], [place] ? ? UR ABNORMAL Glucose >=1000 negative Final [place] [facility] mg/dL mg/dL [facility]: [address] [address], [place] ? ? UR ? Bilirubin negative negative Final [place] [facility]: [address] [address], [place] ? ? UR ABNORMAL Ketones trace negative Final [place] [facility] mg/dL mg/dL [facility]: [address] [address], [place] ? ? UR ? Sp. Marcus 1.025 1.010-1.0 Final [place] -[facility] 25 [facility]: [address] [address], [place] ? ? UR ? pH -[facility] 5.5 5.0-8.0 Final [place] [facility]: [address] [address], [place] ? ? UR ? Protein negative negative Final [place] [facility] mg/dL mg/dL [facility]: [address] [address], [place] ? ? UR ? Urobilinogen 0.2 normal Final [place] [facility]: [address] [address], [place] ? ? UR ? Nitrites negative negative Final [place] [facility]: [address] [address], [place] ? ? UR ? Blood negative negative Final [place] [facility]: [address] [address], [place] ? ? UR ? Leukocytes negative negative Final [place] [facility]: [address] [address], [place] ? ? UR ? Performed by viviane Washington ? Final [place] [facility]: [address] [facility] [address], [place] ? ? UR ? Total Urine 40 /mL ? Final [place] Volume (mL) [facility]: [address] [place] [address], [place] 06/16/2021 Cytology, UR ? Apresult AP ? Final [place] Urine results [facility]: [address] [place] [address], [place] Past Encounters 08/23/2021 Mixed Urinary Incontinence; Abdominal Pa in Nae Stacy Carballo MD: [address] [place] [address] , [address] [place] [phone], Ph. 06/16/2021 Dysuria; Female Stress Incontinence; Uri nary Sediment; Glycosuria Joo Short MD: [address] [place] [address], [place] [address], [place] [address], Ph. Social History Tobacco Smoking Status Never Smoker Vaccine List None recorded. Plan of Care Reminders Provider Appointments None recorded. ? ? Lab None recorded. ? ? Referral None recorded. ? ? Procedures None recorded. ? ? Surgeries None recorded. ? ? Imaging None recorded. ? ? Vitals 08/23/2021 09:00AM ESTABLISHED 15 Height Weight BMI 5 ft 3 in 192 lbs 34 kg/m2 06/16/2021 08:50AM NEW PATIENT 20 Height Weight BMI 5 ft 3 in 197 lbs 34.9 kg/m2
[2022-05-09 22:14] LABS: Albumin* 4.3 g/dL (3.3-5.0); Chloride* 103 mmol/L (96-114)
[2022-05-09 22:15] LABS: Potassium* 4.3 mmol/L (3.6-5.1); Sodium* 135 mmol/L (135-149)
[2022-05-09 22:17] LABS: Aspartate Amino Transferase* 43 U/L (12-35); Carbon Dioxide* 21 mmol/L (20-32); Cholesterol* 244 mg/dL (90-199); Creatinine* 0.4 mg/dL (0.5-1.5); Estimated Glomerular Filt Rate 108 ml/min; Total Protein* 7.2 g/dL (6.0-8.3)
[2022-05-09 22:18] LABS: Alanine Aminotransferase* 45 U/L (4-35); Alkaline Phosphatase* 79 U/L (40-150); Blood Urea Nitrogen* 14 mg/dL (7-30); Calcium* 9.3 mg/dL (8.4-10.6); Glucose* 207 mg/dL (60-115); HDL Cholesterol* 59 mg/dL (>=50); LDL Cholesterol Calculated 156 mg/dL (<100); Triglycerides* 144 mg/dL (40-149)
[2022-05-09 22:21] LABS: Creatinine Urine 207.3 mg/dL
[2022-05-09 22:25] LABS: Microalbumin Creatinine Ratio 40 mg/g (0-30); Microalbumin Urine 9 mg/dL
== END 2022-05-09 10:50 | disposition home or self-care (01) ==
LOC: LKVREF 10:52
PROVIDERS: PCP Physician Assistant Medical; Visit Provider Physician Assistant Medical
DX: Z00.00 Encounter for general adult medical examination without abnormal findings (principal); E11.9 Type 2 diabetes mellitus without complications; E03.9 Hypothyroidism, unspecified; R10.9 Unspecified abdominal pain; R03.0 Elevated blood-pressure reading, without diagnosis of hypertension; Z13.6 Encounter for screening for cardiovascular disorders
CPT/HCPCS: 80053; 80061; 82043; 82570; 84443; 87086

== ENCOUNTER 2022-08-11 13:53 | Outpatient (CLI) | payer MEDICARE, BC, SELFPAY ==
--- NOTE | 2022-08-11 14:00 | CRLHL7_ITS ---
For Patients: As a result of the Cures Act, medical imaging exams and procedure reports are released immediately into your electronic medical record. You may view this report before your referring provider. If you have questions, please contact your health care provider. BILATERAL SCREENING MAMMOGRAM WITH COMPUTER-AIDED DETECTION AND TOMOSYNTHESIS TECHNIQUE: CC and MLO views were obtained. These mammographic images have been obtained using full-field digital technique. These mammographic images were interpreted with the benefit of computer-aided detection. Breast Tomosynthesis was used in this interpretation. COMPARISON FILM: 08/27/19, 08/17/18, 01/08/16. FINDINGS: There are scattered areas of fibroglandular density IMPRESSION: There is no radiographic evidence for malignancy. ASSESSMENT: BI-RADS Category 1: Negative RECOMMENDATION: Routine screening mammogram in 1 year. A lay language report of this examination will be provided to the patient. Alexy Locke M.D. Diagnostic Radiologist [email or web address] Transcribed: 2:24 p.mKim zendejas/Dictated by: Alexy Locke MD @ 08/15/2022 9:10:00 AM (Electronically Signed)
== END 2022-08-11 13:54 | disposition home or self-care (01) ==
PROVIDERS: PCP Physician Assistant Medical; Visit Provider Physician Assistant Medical
DX: Z12.31 Encounter for screening mammogram for malignant neoplasm of breast (principal)
CPT/HCPCS: 77063; 77067

== ENCOUNTER 2023-01-02 00:27 | Emergency (ER) | payer MEDICARE, BC, SELFPAY ==
[2023-01-02 00:33] VITALS: BP 148/82; PULSE 79; RESP 18; TEMP 36.7; O2SAT 99; BMI 35.7
--- NOTE | 2023-01-02 00:56 | CRLHL7_ITS ---
For Patients: As a result of the Cures Act, medical imaging exams and procedure reports are released immediately into your electronic medical record. You may view this report before your referring provider. If you have questions, please contact your health care provider. INDICATION: Persistent dyspnea. TECHNIQUE: Chest 2 views. COMPARISON: None. FINDINGS: Cardiovascular and mediastinum: Cardiomediastinal silhouette is within normal limits Lungs and pleural spaces: Mild bilateral interstitial and subtle airspace opacities no sign of pleural effusion. No pneumothorax. Bones and soft tissues: No significant findings. IMPRESSION: Mild bilateral interstitial and subtle airspace opacities may be related to aspiration, infection.. Dictated by Peggy Diaz MD @ 01/02/2023 2:03:03 AM (Electronically Signed)
--- NOTE | 2023-01-02 00:59 | ED.GENADULT ---
HPI - General Adult General Chief complaint: Shortness of Breath/Dyspnea Stated complaint: shortness of breath Time Seen by Provider: 01/02/23 00:30 Source: patient Mode of arrival: ambulatory Limitations: no limitations History of Present Illness HPI narrative: 67-year-old female with notable history of restrictive lung disease presents the emergency department with persistent shortness of breath. States that she is ?no better? than she was last Monday when last evaluated. I do review these notes. At that time she had a right-sided multifocal pneumonia. She had a shoulder surgery done 2 and half weeks ago, suspected that she did aspirate during that event. She has been on clindamycin since she was evaluated in the emergency department. She says that she still feels short of breath. There is no fever, no productive cough. Reports that she saw her primary care provider a couple of days after her visit in the ED and was prescribed a nebulizer solution, it sounds like this was a steroid nebulized solution rather than something albuterol based. She says she does have those at home as well but does not typically respond well to albuterol. She had not been on prednisone for this episode until about an hour prior to arrival when she took 1 prednisone tablet and did not notice improvement in her symptoms. She reports that she gets a tightness in her abdomen after eating, but there is no nausea or vomiting. She tells me she has a history of liver disease from previous steroid use but cannot describe the liver disease in more detail. She denies any cardiac changes, palpitation, chest pain on exertion. Does report dyspnea on exertion which has been persistent but not worsening during the course of this illness. She reports that she has 1-2 days of antibiotics left and is worried that she will not be sufficiently recovered once the antibiotics are completed. Past medical history notable for anxiety, diabetes, obesity, recent pneumonia, recent shoulder surgery, previous notes reviewed. Current medications reviewed, allergy list noted. Socially she is a nonsmoker, lives independently. ROS is notable the for the respiratory and generalized symptoms as above, otherwise denies times 12 systems today. Related Data Home Medications Medication Instructions Recorded Confirmed albuterol sulfate 90 mcg/actuation 2 puff inhalation Q4-6H PRN 02/09/22 01/02/23 aerosol inhaler (ProAir HFA) blood-glucose meter (Accu-Chek 02/09/22 01/02/23 Arelis Plus Meter) buspirone 10 mg tablet 10 mg PO BID PRN 02/09/22 01/02/23 cetirizine 10 mg tablet 10 mg PO QDAY PRN 02/09/22 01/02/23 diclofenac sodium 1 % topical gel 2 - 4 g topical QID PRN 02/09/22 01/02/23 ipratropium 0.5 mg-albuterol 3 mg 3 ml inhalation Q4H PRN 02/09/22 01/02/23 (2.5 mg base)/3 mL nebulization soln levocetirizine 5 mg tablet 5 mg PO BID PRN 02/09/22 01/02/23 diclofenac sodium 50 mg 50 mg PO BID PRN 12/23/22 12/23/22 tablet,delayed release fexofenadine 180 mg tablet 180 mg PO DAILY 12/23/22 01/02/23 flash glucose sensor (FreeStyle 12/23/22 01/02/23 Miriam 2 Sensor kit) levothyroxine 100 mcg tablet 100 mcg PO QAM 12/23/22 01/02/23 liothyronine 5 mcg tablet 10 mcg PO Q12H 12/23/22 01/02/23 oxcarbazepine 150 mg tablet 150 mg PO BID PRN 12/23/22 01/02/23 aspirin 325 mg tablet 325 mg PO DAILY 01/02/23 01/02/23 budesonide 0.5 mg/2 mL suspension 0.5 mg inhalation BID 01/02/23 01/02/23 for nebulization Previous Rx's Medication Instructions Recorded glipizide 10 mg tablet 10 mg PO BID #180 tabs 05/11/22 clindamycin HCl 300 mg capsule 300 mg PO TID 8 days #24 caps 12/23/22 ipratropium 0.5 mg-albuterol 3 mg 3 ml inhalation Q6H PRN #90 mL 01/02/23 (2.5 mg base)/3 mL nebulization soln prednisone 20 mg tablet 20 mg PO .UD #10 tabs 01/02/23 Allergies Allergy/AdvReac Type Severity Reaction Status Date / Time ciprofloxacin Allergy Severe Anaphylaxis Verified 01/02/23 00:40 codeine Allergy Severe Anaphylaxis Verified 01/02/23 00:40 hydrocodone Allergy Severe Anaphylaxis Verified 01/02/23 00:40 propoxyphene Allergy Severe Anaphylaxis Verified 01/02/23 00:40 [facility] Medical History (Updated 01/02/23 @ 02:21 by Tenisha Stein MD) Hair loss ?L65.9 - Nonscarring hair loss, unspecified (ICD-10) Memory loss ?R41.3 - Other amnesia (ICD-10) Shingles ?B02.9 - Zoster without complications (ICD-10) Arthralgia ?M25.50 - Pain in unspecified joint (ICD-10) YESSI (obstructive sleep apnea) ?G47.33 - Obstructive sleep apnea (adult) (pediatric) (ICD-10) GERD (gastroesophageal reflux disease) ?K21.9 - Gastro-esophageal reflux disease without esophagitis (ICD-10) Diabetes mellitus ?E11.9 - Type 2 diabetes mellitus without complications (ICD-10) Hypothyroid ?E03.9 - Hypothyroidism, unspecified (ICD-10) Carpal tunnel syndrome, bilateral ?G56.03 - Carpal tunnel syndrome, bilateral upper limbs (ICD-10) PVC's (premature ventricular contractions) ?I49.3 - Ventricular premature depolarization (ICD-10) Disease of thyroid gland ?E07.9 - Disorder of thyroid, unspecified (ICD-10) Liver disease ?K76.9 - Liver disease, unspecified (ICD-10) Surgical History (Updated 01/02/23 @ 01:45 by David Faith RN) History of shoulder surgery ?Z98.890 - Other specified postprocedural states (ICD-10) History of eyelid surgery ?Z98.890 - Other specified postprocedural states (ICD-10) Family History Mother Diabetes Stroke Liver disease Lung cancer Father Coronary artery disease Diabetes High blood pressure Maternal Grandmother Thyroid disease Paternal Grandmother Asthma Sister Bladder cancer Social History Narrative: Single. 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 Never smoker. No alcohol use Denies recreational drug use Smoking Status: Never smoker Do you use any of these nicotine containing products: None Second hand tobacco smoke exposure: No How often do you have a drink containing alcohol: never AUDIT-C Alcohol total score: 0 Non-prescribed substance use: denies use Little interest or pleasure in doing things: not at all Feeling down, depressed, or hopeless: not at all service: No Exam Const: Vital Signs, click to edit/add: Vital Signs - 24 hr 01/02/23 00:33 Temperature 98.1 F Pulse Rate [Right Pulse Oximeter] 79 Respiratory Rate 18 Blood Pressure [Ri ght Upper Arm] 148/82 H Pulse Oximetry 99 Oxygen Delivery Me thod Room Air Documenting provider has reviewed patient's vital signs: yes Common normals: no apparent distress General appearance: cooperative, comfortable and well kempt HENMT: Common normals: normocephalic and oropharynx normal Head and scalp: normocephalic Mouth: oral and palatal mucosa normal Throat: posterior oropharynx normal Eye: Common normals: conjunctivae normal General eye: normal appearance of both eyes Conjunctiva: conjunctiva(e) normal Neck & C-Spine: Common normals: full ROM and no lymphadenopathy Resp: Common normals: normal respiratory effort Other: There is a loop of upper airway whistle on expiration but not in the bases. Expiration is slightly prolonged. There is decreased air movement, but no obvious crackles, no wheeze. Cardio: Common normals: regular rate, regular rhythm, S1 normal heart sound, S2 normal heart sound and no murmurs Rate: regular rate Rhythm: regular rhythm Heart sounds: S1 normal and S2 normal GI: Common normals: Normal to inspection, nondistended, normoactive bowel sounds present, soft to palpation, no hepatosplenomegaly and no masses Palpation: soft and no hepatosplenomegaly Extremity: Other: Trace dependent appearing edema at ankle. Recent incision on anterior right shoulder consistent with surgical history. Mild bruising but no significant swelling, surrounding redness or drainage, looks great Neuro: Speech: speech normal Motor exam: no movement abnormalities noted Psych: Appearance: well kempt Activity/motor behavior: appropriate eye contact Mood and affect: euthymic mood Skin: Narrative: Incision healing well, no other rashes noted. Course Course Hospital Course: History of chronic lung disease with persistent shortness of breath. Oxygen levels are very reassuring. Previous workup reviewed, no signs of PE on previous CT. I am suspecting that this is more of a persistent inflammatory type of picture rather than infectious. We would not have had sufficient time for prednisone to have kicked in to help with her symptoms at this point. I do recommend that we repeat the chest x-ray to be sure that there is no signs of worsening, repeat basic labs, inflammatory markers looking at white count, basic cardiac workup. I do not think that she would benefit from additional albuterol as she is not wheezing. Await findings. Reevaluation(s) Time of Reevaluation #1: 02:25 Reevaluation #1: Oxygen levels have remained excellent, findings reviewed with patient. See medical decision making and discharge paperwork for details. Vital Signs Vital signs: Initial Vital Signs Respiratory Effort Normal, Spontaneous, Non-Labored 01/02/23 00:30 Respiratory Depth Normal 01/02/23 00:30 Respiratory Pattern Normal 01/02/23 00:30 Vital Signs Temperature 98.1 F 01/02/23 00:33 Pulse Rate 79 01/02/23 00:33 Respiratory Rate 18 01/02/23 00:33 Blood Pressure 148/82 H 01/02/23 00:33 Pulse Oximetry 99 01/02/23 00:33 Oxygen Delivery Method Room Air 01/02/23 00:33 Temperature 98.1 F 01/02/23 00:33 Pulse Rate 79 01/02/23 00:33 Respiratory Rate 18 01/02/23 00:33 Blood Pressure 148/82 H 01/02/23 00:33 Pulse Oximetry 99 01/02/23 00:33 Oxygen Delivery Method Room Air 01/02/23 00:33 Medical Decision Making MDM Narrative Medical decision making narrative: Oxygen levels look great, lungs sound nicely clear on exam. Oxygen levels remained excellent throughout her time in the ED. Counseled patient on findings. Chest x-ray is very reassuring, labs show no persistent sign of bacterial infection, inflammatory markers are going down. D-dimer is decreasing, do not recommend we repeat the CT of the chest. At this time, I think her symptoms are most likely related to a pneumonitis in the setting of chronic lung disease. She is far enough out from surgery where I think the risks and benefits of surgery and steroids can be weighed differently. I would like for her to go ahead and continue the prednisone that she started at home tonight. I recommended 20 mg twice daily for 3 days, then decreasing to 20 mg once daily for an additional 4 days. I discussed that the budesonide neb will not likely be that beneficial for her while she is on oral prednisone but that she should restart it once she has completed the prednisone. DuoNebs have been prescribed, counseled on use of these. Alarm symptoms reviewed that would warrant ED presentation including fever, hypoxia, severe shortness of breath. She does have a way to monitor her oxygen at home and assures me that she has not been dropping below 94%. She will finish her course of clindamycin but does not need additional antibiotics. She verbalizes understanding and agreement and has no further questions. Prescription sent to pharmacy per her request. Lab Data Lab results reviewed: Yes I reviewed the patient's lab results Lab results narrative: No leukocytosis, D-dimer is decreasing. CRP is decreasing. Glucose is elevated, not surprising with freshly starting prednisone and sodium is mildly decreased but compensatory for the glucose. Cardiac workup is fully reassuring. No signs of heart failure.. Labs: Lab Results 01/02/23 Range/Units 01:20 WBC 6.24 (4.50-11.00) K/uL RBC 4.27 (4.00-5.20) m/uL Hgb 11.7 L (12.0-16.0) gm/dL Hct 34.9 (33.0-51.0) % MCV 82 (80-100) fL MCH 27 (26-34) pg MCHC 34 (32-36) gm/dL RDW Coeff of René 13.3 (11.5-15.5) % Plt Count 276 (140-440) K/uL Neut % (Auto) 67.4 (42.0-72.0) % Lymph % (Auto) 24.8 (20-44) % [place] % (Auto) 4.3 (0.0-11.0) % Eos % (Auto) 3.0 (0.0-7.0) % Baso % (Auto) 0.2 (0.0-3.0) % Neut # (Auto) 4.20 (1.7-7.0) K/uL Lymph # (Auto) 1.55 (0.90-2.90) K/uL [place] # (Auto) 0.30 (0.00-0.90) K/UL Eos # (Auto) 0.19 (0.00-0.50) K/uL Baso # (Auto) 0.01 (0.00-0.30) K/uL D-Dimer Quant (PE/DVT) 1.60 H (0.00-0.50) ug/ml Sodium 131 L (135-149) mmol/L Potassium 3.8 (3.6-5.1) mmol/L Chloride 101 (96-114) mmol/L Carbon Dioxide 26 (20-32) mmol/L BUN 11 (7-30) mg/dL Creatinine 0.5 (0.5-1.5) mg/dL Estimated Creat Clear 43.18 Estimated GFR 103 ml/min Glucose 354 H* (60-115) mg/dL Calcium 9.0 (8.4-10.6) mg/dL Total Bilirubin 0.6 (0.1-1.5) mg/dL AST 41 H (12-35) U/L ALT 54 H (4-35) U/L Alkaline Phosphatase 84 (40-150) U/L C-Reactive Protein 1.9 H (0.5-1.0) mg/dL NT-Pro-B Natriuret Pep 229 pg/mL Total Protein 6.8 (6.0-8.3) g/dL Albumin 3.9 (3.3-5.0) g/dL POC Troponin I 0.00 L (0.01-0.04) ng/ml Imaging Data Chest x-ray: Attestation: I have reviewed the pertinent imaging results. My impression: Comparison is CT from last week. Certainly no interval worsening, some mild bilateral changes suggestive more of pneumonitis but no obvious focal infiltrate. Radiologist's impression: IMPRESSION: Mild bilateral interstitial and subtle airspace opacities may be related to aspiration, infection.. ECG Data Attestation: I personally reviewed and interpreted this ECG as follows: Prior ECG tracings: available for review Interpretation: Normal sinus rhythm, rate 66. Normal axis. No significant ST or T-wave abnormalities. Good R-wave progression. Normal EKG Discharge Plan Discharge Clinical Impression: Aspiration pneumonitis Patient Disposition: Home, Self-Care Condition: Stable Instructions: Pneumonitis (ED) Additional Instructions: As we discussed, the pneumonia is clearing up nicely. There are no signs of any persistent bacterial infection, a new blood clot, heart complications or fluid in your lungs. What is going on is irritation in your lungs from the small aspiration event compound did with your history of chronic lung disease. The best treatment at this point would be steroids. You have already taking your dose of prednisone for tonight, it will take a couple of days before you notice significant improvement. I have sent a prescription for additional prednisone to your pharmacy. You will take this 2 times daily for a total of 3 days, then once daily for an additional 4 days. Since you took your dose at about 11:00 p.m., I would like for you to take your next dose about 8-10 hours after this, 7-9 a.m. this morning. I have also sent a prescription for DuoNebs, and albuterol and ipratropium combination that will help you cough up more of the congestion. As we discussed, the budesonide nebs are fantastic and I love prescribing these but they will not be strong enough to handle the irritation in your lungs with this episode. I would stop them for now since the prednisone will certainly cover more than the budesonide nebs in terms of steroid activity. You may restart them once her prednisone has completed to help finish out the course of treatment. Unfortunately, it will take several weeks for your lungs to recover from this. The only thing that will heal them is time. The prednisone will help decrease the inflammation and help you breathe a little better while your lungs finish healing. The good news is that your oxygen levels look great. Continue your physical therapy, previously prescribed pain medications and all other previous instructions. As we discussed, come back to the emergency department if your oxygen levels are persistently below 90%, you have a fever over 100.4, or the shortness of breath is so severe that you cannot care for yourself at home. Activity Level: Activity as Tolerated Discharge Diet: Diabetic Prescriptions: New ipratropium-albuterol 0.5 mg-3 mg(2.5 mg base)/3 mL solution for nebulization 3 ml inhalation Q6H PRNQty: 90 0RF prednisone 20 mg tablet 20 mg PO .UD Qty: 10 0RF Rx Instructions: 1 pill by mouth 2 times daily for 3 days, then 1 pill once daily for 4 days No Action aspirin 325 mg tablet 325 mg PO DAILY budesonide 0.5 mg/2 mL suspension for nebulization 0.5 mg inhalation BID Patient Comments: NEBULZIE 1 VIAL BY MOUTH TWICE DAILY FOR 14 DAYS diclofenac sodium 50 mg tablet,delayed release (DR/EC) 50 mg PO BID PRN oxcarbazepine 150 mg tablet 150 mg PO BID PRN fexofenadine 180 mg tablet 180 mg PO DAILY liothyronine 5 mcg tablet 10 mcg PO Q12H levothyroxine 100 mcg tablet 100 mcg PO QAM (DME) FreeStyle Miriam 2 Sensor Kit MISCELLANEOUS DAILY clindamycin HCl 300 mg capsule 300 mg PO TID 8 Days Qty: 24 0RF buspirone 10 mg tablet 10 mg PO BID PRN cetirizine 10 mg tablet 10 mg PO QDAY PRN levocetirizine 5 mg tablet 5 mg PO BID PRN albuterol sulfate [ProAir HFA] 90 mcg/actuation HFA aerosol inhaler 2 puff inhalation Q4-6H PRN ipratropium-albuterol 0.5 mg-3 mg(2.5 mg base)/3 mL solution for nebulization 3 ml inhalation Q4H PRN (DME) blood-glucose meter [Accu-Chek Arelis Plus Meter] Misc See Rx Instructions .Route Rx Instructions: As directed diclofenac sodium 1 % gel 2 - 4 g topical QID PRN Rx Instructions: apply to single elbow, wrist or hand; for hand includes palm/fingers/back of hand glipizide 10 mg tablet 10 mg PO BID Qty: 180 3RF Rx Instructions: 1 tablet twice daily Follow Up/Referrals: Comfort Ernandez PA-C [Physician Regional Liaison] - Stand Alone Forms: [facility] Info Instructions
[2023-01-02 01:25] LABS: Basophils Absolute Auto 0.01 K/uL (0.00-0.30); Basophils Percent Auto 0.2 % (0.0-3.0); Eosinophils Absolute Auto 0.19 K/uL (0.00-0.50); Hematocrit 34.9 % (33.0-51.0); Hemoglobin* 11.7 gm/dL (12.0-16.0); Immature Granulocytes Abs Auto 0.02 K/uL (0.00-0.30); Immature Granulocytes Pct Auto 0.3 %; Lymphocytes Absolute Auto 1.55 K/uL (0.90-2.90); Lymphocytes Percent Auto 24.8 % (20-44); Mean Corpuscular HGB Conc 34 gm/dL (32-36); Mean Corpuscular Hemoglobin 27 pg (26-34); Mean Corpuscular Volume 82 fL (80-100); Monocytes Percent Auto 4.3 % (0.0-11.0); Neutrophils Percent Auto 67.4 % (42.0-72.0); Platelet Count* 276 K/uL (140-440); RDW Coefficient of Variation % 13.3 % (11.5-15.5); Red Blood Count 4.27 m/uL (4.00-5.20); White Blood Count* 6.24 K/uL (4.50-11.00)
[2023-01-02 01:26] LABS: Slide Review Reflex No
[2023-01-02 01:47] LABS: Albumin* 3.9 g/dL (3.3-5.0); Chloride* 101 mmol/L (96-114); Potassium* 3.8 mmol/L (3.6-5.1); Sodium* 131 mmol/L (135-149)
[2023-01-02 01:49] LABS: Bilirubin Total* 0.6 mg/dL (0.1-1.5); Creatinine* 0.5 mg/dL (0.5-1.5); Est. Creatinine Clearance* 43.18; Estimated Glomerular Filt Rate 103 ml/min
[2023-01-02 01:50] LABS: Alanine Aminotransferase* 54 U/L (4-35); Alkaline Phosphatase* 84 U/L (40-150); Aspartate Amino Transferase* 41 U/L (12-35); Blood Urea Nitrogen* 11 mg/dL (7-30); Carbon Dioxide* 26 mmol/L (20-32); Total Protein* 6.8 g/dL (6.0-8.3)
[2023-01-02 01:53] LABS: C Reactive Protein* 1.9 mg/dL (0.5-1.0)
[2023-01-02 01:54] LABS: Glucose* 354 mg/dL (60-115)
[2023-01-02 02:00] LABS: NT Pro B Type NatriureticPept* 229 pg/mL
[2023-01-02 02:25] VITALS: BP 132/74; PULSE 84; RESP 18; TEMP 36.7; O2SAT 99
[2023-01-02 02:26] VITALS: BP 132/74; PULSE 84; RESP 18; TEMP 36.7
== END 2023-01-02 02:43 | disposition home or self-care (01) ==
PROVIDERS: Emergency Provider Family Medicine
DX: J69.0 Pneumonitis due to inhalation of food and vomit (principal)
CPT/HCPCS: 36415; 71046; 80053; 83880; 84484; 85025; 85379; 86140; 93005; 99284